=== PATIENT | male | born 1935 | race Caucasian/White ===

== ENCOUNTER 2017-11-13 12:06 | Inpatient (IN) ==
[2017-11-13] MEDS ORDERED: Morphine Inj 4 MG/ML Vial IV.PUSH ONE (12:17)
--- NOTE | 2017-11-13 12:39 | ED ---
HPI General Chief Complaint: Fall Stated Complaint: Evac/Fall Time Seen by Provider: 11/13/17 12:16 Source: patient, family and EMS Mode of arrival: EMS Limitations: language barrier History of Present Illness HPI Narrative: 82 year-old male with a history of CHF and diabetes presents to the emergency room for evaluation of left hip pain after falling just prior to arrival. Patient is primarily Kenyan speaking and his and daughter are translating for him. Patient got up quickly to walk out to the living room and his legs gave out and he fell down. His family states he often feels lightheaded upon standing. He immediately called out for his who tried to help him up but was unable to so they called 911. There was no loss of consciousness. He did not hit his head. No other injuries. He is not on blood thinners. He was noted by EMS to have shortening and external rotation of the left hip. He repots significant pain to the left leg but denies any other pain other symptoms. Patient's is anxious about possible anesthesia stating that he has a heart/lung problem. His appliance service representative is Dr. Canales. complaint: fall Onset (ago): hour(s) Fall from: standing Place fall occurred: home Loss of consciousness: none Prolonged down time: no Symptoms prior to fall: lightheadedness Location of injury: pelvis Severity: severe Quality: sharp and stabbing Associated symptoms (after fall): unable to walk Related Data Home Medications Medication Instructions Recorded Confirmed furosemide [Lasix] mg PO 11/13/17 metformin mg PO 11/13/17 potassium chloride meq PO 11/13/17 Allergies Allergy/AdvReac Type Severity Reaction Status Date / Time No Known Allergies Allergy Unverified 11/13/17 12:17 Review of Systems ROS: all other systems reviewed are negative Constitutional Denies chills and Denies fever(s) Eyes Reports system reviewed and no additional complaints, except as docu ENT Reports system reviewed and no additional complaints, except as docu Cardiovascular Denies chest pain, Denies chest pain at rest and Denies dyspnea Respiratory Denies cough and Denies dyspnea Gastrointestinal Reports system reviewed and no additional complaints, except as docu Genitourinary Denies dysuria and Denies urinary incontinence Musculoskeletal Reports limited range of motion (Secondary to pain) and Reports other (Left hip pain) Neurologic Reports system reviewed and no additional complaints, except as docu Endocrine Reports system reviewed and no additional complaints, except as docu [facility] Medical History Medical History CHF (congestive heart failure) (Acute) Diabetes (Acute) Kidney stone (Acute) Pneumothorax (Acute) Respiratory abnormalities (Acute) Surgical History Surgical History H/O hernia repair (Acute) Social History Social History Substance History: No History of Abuse Smoking Status: Former smoker How Often Do You Have a Drink Containing Alcohol: Never Recent Travel in [facility] within the Last 8 Weeks: No Recent Out of Country Travel within the Last 8 Weeks: No Immunization History Tetanus Immunization: Unsure Hx Influenza Vaccine This Season: Yes Exam Narrative Exam Narrative: GENERAL: Well-nourished, well-developed male in no acute distress. Afebrile. SKIN: Focused skin assessment warm/dry. HEAD: Normocephalic. EYES: No scleral icterus. No injection or drainage. NECK: Supple, trachea midline. No JVD or lymphadenopathy. CARDIOVASCULAR: Regular rate and rhythm without murmurs, gallops, or rubs. RESPIRATORY: Breath sounds equal bilaterally. No accessory muscle use. MUSCULOSKELETAL: No cyanosis, or edema. Left hip is externally rotated and shortened. 2+ dorsalis pedis pulse on the left. Limited range of motion secondary to pain. Course Initial Documented Vital Signs Temperature 98.0 F 11/13/17 12:20 Pulse Rate 90 11/13/17 12:20 Respiratory Rate 20 11/13/17 12:20 Blood Pressure 142/58 H 11/13/17 12:20 Pulse Oximetry 88 L 11/13/17 12:20 Last Documented Vital Signs Temperature 98.0 F 11/13/17 12:20 Pulse Rate 98 H 11/13/17 15:00 Respiratory Rate 22 11/13/17 15:00 Blood Pressure 129/62 11/13/17 15:00 Pulse Oximetry 97 11/13/17 15:00 Medical Decision Making LUCAS Attestation LUCAS supervised visit: Yes Attestation: I, Dr. Abbasi, have reviewed the advance practice practitioner's documentation and am in agreement, met with the patient face to face, made the diagnosis, and the medical decision making was done by me. *My assessment and Findings: Left hip fracture. She also has a history of pulmonary disease. Patient will be admitted to medicine service with a pulmonology consult. Case was discussed with the admitting physician as well as Dr. Canales, patient's appliance service representative who recommended we consult Dr. Leong. [facility] Narrative Medical decision making narrative: 82-year-old male presents to the emergency room for evaluation of left hip pain after falling earlier today. He is primarily Kenyan speaking and his family interpreted throughout history and physical exam. Patient got up too quickly and felt lightheaded and lost his balance. His family states this happens a lot to him. He denies any other complaints. Physical exam reveals externally rotated and shortened left hip with tenderness to palpation of the left lateral hip. It is neurovascularly intact with 2+ dorsalis pedis pulse. IV access established basic labs obtained. Patient given 2 mg of morphine. CBC and CMP are essentially unremarkable. Chest x-ray shows chronic findings. Patient's family is very concerned about anesthesia because of his chronic lung condition and requested we speak to his appliance service representative. Dr. Abbasi spoke to Dr. Canales who recommends consulting Dr. Myers. Hip x-ray shows intertrochanteric fracture of the left proximal femur with varus angulation. Patient was given an additional 2 mg of morphine. I spoke to Dr. Robertson who recommends patient become n.p.o. after midnight for surgery tomorrow. Dr. Abbasi spoke to the residents and they agree to admission. Medical Screen Exam Complete: Yes Emergency Medical Condition: Yes Differential Diagnosis Differential Diagnosis: Fracture, contusion, sprain, strain, dislocation Lab Data Result diagrams: 11/13/17 12:29 11/13/17 12:29 Lab Results 11/13/17 11/13/17 11/13/17 Range/Units 12:29 12:29 12:29 WBC 7.8 (4.0-11.0) th/mm3 RBC 3.91 L (4.50-5.90) mil/mm3 Hgb 11.0 L (13.0-17.0) gm/dL Hct 34.3 L (39.0-51.0) % MCV 87.8 (80.0-100.0) fL MCH 28.2 (27.0-34.0) pg MCHC 32.2 (32.0-36.0) % RDW 15.8 (11.6-17.2) % Plt Count 170 (150-450) th/mm3 MPV 8.1 (7.0-11.0) fL Neut % (Auto) 74.0 H (16.0-70.0) % Lymph % (Auto) 13.3 (9.0-44.0) % [place] % (Auto) 6.0 (0.0-8.0) % Eos % (Auto) 5.7 H (0.0-4.0) % Baso % (Auto) 1.0 (0.0-2.0) % Neut # (Auto) 5.8 (1.8-7.7) th/mm3 Lymph # (Auto) 1.0 (1.0-4.8) th/mm3 [place] # (Auto) 0.5 (0.0-0.9) th/mm3 Eos # (Auto) 0.4 (0.0-0.4) th/mm3 Baso # (Auto) 0.1 (0.0-0.2) th/mm3 WBC Differential . Differential Comment Auto diff final PT 11.3 (9.8-11.6) sec INR 1.1 Ratio APTT 22.0 L (24.3-30.1) sec Sodium 142 (136-145) meq/L Potassium 4.6 (3.5-5.1) meq/L Chloride 100 (98-107) meq/L Carbon Dioxide 37.5 H (21.0-32.0) meq/L Anion Gap 5 (5-15) meq/L BUN 18 (7-18) mg/dL Creatinine 0.91 (0.60-1.30) mg/dL Estimated GFR 80 L (>89) mL/min Random Glucose 135 H (74-106) mg/dL Calcium 8.6 (8.5-10.1) mg/dL Total Bilirubin 0.4 (0.2-1.0) mg/dL AST 34 (15-37) U/L ALT 28 (12-78) U/L Alkaline Phosphatase 129 H (45-117) U/L Total Protein 7.1 (6.4-8.2) g/dL Albumin 3.3 L (3.4-5.0) g/dL Imaging Data Radiologist's impression: Chest X-Ray 11/13/17 12:18 CONCLUSION: Abnormal pleural-based thickening and calcification measuring up to 4.9 cm in diameter in the left hemithorax possibly associated with a prior left thoracotomy. Diminished size of the left lung possibly from partial prior resection. No dense consolidation on the right. Suspected parenchymal scarring and apical pleural thickening. Hip X-Ray 11/13/17 12:18 CONCLUSION: Intertrochanteric fracture of the proximal left. Osteopenia. Discharge Plan Discharge Disposition Patient Disposition: 30 Still Patient Discharge Condition Condition: Stable Physicians Team ED Provider: Valdo Abbasi ED Midlevel Provider: Meghan Mcneal Primary Care Provider: RODRIGO, Attending Provider: Karan Ramírez Other Providers: Arvin Myers V ; Zeke Robertson Discharge Interventions Interventions: Vital Signs Last Done: 11/13/17 15:00 Status ED Status: Admitted Patient
[2017-11-13 12:55] LABS: Baso # (Auto) 0.1 th/mm3 (0.0-0.2); Eos # (Auto) 0.4 th/mm3 (0.0-0.4); Eos % (Auto) 5.7 % (0.0-4.0); Hematocrit 34.3 % (39.0-51.0); Lymph % (Auto) 13.3 % (9.0-44.0); Mean Corpuscular HGB Conc 32.2 % (32.0-36.0); Mean Corpuscular Hemoglobin 28.2 pg (27.0-34.0); Mean Corpuscular Volume 87.8 fL (80.0-100.0); Mean Platelet Volume 8.1 fL (7.0-11.0); Mono # (Auto) 0.5 th/mm3 (0.0-0.9); Neut # (Auto) 5.8 th/mm3 (1.8-7.7); Platelet Count 170 th/mm3 (150-450); Red Blood Count 3.91 mil/mm3 (4.50-5.90); Red Cell Distribution Width 15.8 % (11.6-17.2); White Blood Count 7.8 th/mm3 (4.0-11.0)
[2017-11-13 13:05] LABS: INR 1.1 Ratio; Prothrombin Time 11.3 sec (9.8-11.6)
[2017-11-13 13:20] LABS: Albumin 3.3 g/dL (3.4-5.0); Anion Gap 5 meq/L (5-15); Aspartate Aminotransferase 34 U/L (15-37); Blood Urea Nitrogen 18 mg/dL (7-18); Calcium 8.6 mg/dL (8.5-10.1); Carbon Dioxide 37.5 meq/L (21.0-32.0); Chloride 100 meq/L (98-107); Glomerular Filtration Rate 80 mL/min (>89); Glucose,Random 135 mg/dL (74-106); Potassium 4.6 meq/L (3.5-5.1); Sodium 142 meq/L (136-145)
[2017-11-13 13:21] LABS: Alanine Aminotransferase 28 U/L (12-78)
[2017-11-13 13:23] LABS: Alkaline Phosphatase 129 U/L (45-117); Total Protein 7.1 g/dL (6.4-8.2)
--- NOTE | 2017-11-13 13:49 | XR ---
EXAM DATE: 11/13/2017 1:20 PM EDT AGE/SEX: 82 years / Male INDICATIONS: Shortness of breath. CLINICAL DATA: This is the patient's initial encounter. Patient reports that signs and symptoms have been present for 1 day and indicates a pain score of Nonresponsive. MEDICAL/SURGICAL HISTORY: . Left lung. None. COMPARISON: No prior exams available for comparison. FINDINGS: There is presumed prior left thoracotomy with extensive pleural-based density and calcification prese nt in markedly diminished size of the left lung. No prior study for comparison. There is apical pleural thickening on the right and presumed parenchymal scarring in the right lung. Heart size mildly enlarged. CONCLUSION: Abnormal pleural-based thickening and calcification measuring up to 4.9 cm in diameter in the left he mithorax possibly associated with a prior left thoracotomy. Diminished size of the left lung possibly from partial prior resection. No dense consolidation on the right. Suspected parenchymal scarring an d apical pleural thickening. Electronically signed by: Bo Main MD 11/13/2017 1:48 PM EDT
--- NOTE | 2017-11-13 13:50 | XR ---
EXAM DATE: 11/13/2017 1:23 PM EDT AGE/SEX: 82 years / Male INDICATIONS: Left hip pain after fall. CLINICAL DATA: This is the patient's initial encounter. Patient reports that signs and symptoms have been present for 1 day and indicates a pain score of Nonresponsive. MEDICAL/SURGICAL HISTORY: Non-responsive. Non-responsive. COMPARISON: No prior exams available for comparison. FINDINGS: There is an intertrochanteric fracture of the proximal left femur with varus angulation. Bones are os teopenic. No other fractures identified. CONCLUSION: Intertrochanteric fracture of the proximal left. Osteopenia. Electronically signed by: Bo Main MD 11/13/2017 1:48 PM EDT
[2017-11-13] MEDS ORDERED: Morphine Sulfate Inj 2 MG/ML Vial IV.PUSH ONE (14:40)
[2017-11-13] MEDS ORDERED: Temazepam 15 MG Capsule PO PRN (16:20)
[2017-11-13] MEDS ORDERED: Bisacodyl 10 MG Supp RECTAL PRN (16:20)
[2017-11-13] MEDS ORDERED: Acetaminophen 325 MG Tablet PO PRN (16:32)
[2017-11-13] MEDS ORDERED: Naloxone Inj 0.4 MG/ML Vial IV.PUSH PRN (16:32)
[2017-11-13] MEDS: Sod Chloride 0.9% Inj 1,000 ML IV.CONT SCH (16:56)
--- NOTE | 2017-11-13 17:36 | P.HPFP ---
History of Present Illness Primary Care Physician: UNKNOWN Chief Complaint: Fall History of Present Illness: 82-year-old male with history of CHF, diabetes, emphysema presenting to the ED after a fall. Patient is Tajik speaking only and his family (who speaks Yoruba) was present who assisted in providing history. An director human services was also used (Luz Elena ID #[id number]). Family states that patient was in his normal state of health and had a witnessed fall today in the living room. Family states that he occasionally gets lightheaded when he stands up quickly, and they stated that was the case today. Denies any loss of consciousness or chest pain. At baseline, patient is on 3-4 L nasal cannula and requires assistance in ambulating, bathing and clothing himself. Family states that the patient had a thoracotomy/lobectomy in childhood for condition he could not describe. His manager of production is Dr. Lazcano. He also has a known history of CHF for which he takes Lasix and potassium daily. Medical Care Evaluation Specialist is Dr. Weinstein. - Diagnosis (1) Fracture, intertrochanteric, left femur (2) Fall (3) CHF (congestive heart failure) (4) Emphysema of lung (5) Borderline diabetes mellitus (6) Nutrition, metabolism, and development symptoms Inpatient Certification: I certify that the inpatient services were ordered in accordance with Medicare regulations governing the order. This includes certification that hospital inpatient services are reasonable and necessary and in the case of services not specified as inpatient-only under 42 CFR 419.22(n), that they are appropriately provided as inpatient services in accordance to with the 2-midnight benchmark under 43 CFR 412.3(e) Estimated Total Length of Stay (Days): 3 Plans for Post Hospital Care: Other Review of Systems Constitutional: Denies chills, Denies fever(s) Ears, Nose, Mouth, and Throat: Reports dizziness, Denies sore throat Cardiovascular: Reports foot swelling (Mildly increased from baseline CHF), Denies chest pain Respiratory: Reports shortness of breath (no change from baseline), Denies cough Gastrointestinal: Denies abdominal pain, Denies black, tarry stools Genitourinary: Denies urinary frequency Comments: denies dysuria Neurologic: Denies fainting, Denies headache(s) [facility] - History History Provided By: Patient, Family Member - Medical History Medical History: Medical History (Last Updated 11/13/17 @ 12:22 by Griffin Odell) CHF (congestive heart failure) Diabetes Kidney stone Pneumothorax Respiratory abnormalities - Surgical History Surgical History: Surgical History (Last Updated 11/13/17 @ 12:22 by Griffin Odell) H/O hernia repair - Tobacco History Smoking Status: Former smoker - Alcohol History How Often Do You Have a Drink Containing Alcohol: Never - Substance Use History Substance History: No History of Abuse - Travel History Recent Travel in the [place] Within the Last 8 Weeks: No Recent Travel Out of the Country Within the Last 8 Weeks: No - Immunization History Tetanus Immunization: Unsure Hx Influenza Vaccine This Season: Yes Medications and Allergies Active Medications: Active Medications Acetaminophen (Tylenol) 650 mg PO Q6HR PRN PRN Reason: PAIN SCALE 1 TO 2 Al Hydroxide/Mg Hydroxide (Milk Of Magnesia Liq) 30 ml PO Q12H PRN PRN Reason: Mild Constipation Albuterol (Duoneb Neb (Prn)) 1 ampul NEB Q4HR NEB PRN PRN Reason: WHEEZING Bisacodyl (Dulcolax Supp) 10 mg RECTAL DAILY PRN PRN Reason: SEVERE CONSITIPATION Sodium Chloride (Ns Inj) 1,000 mls @ 100 mls/hr IV.CONT .Q10H NOAH Lactulose (Lactulose Liq) 30 ml PO DAILY PRN PRN Reason: SEVERE CONSITIPATION Morphine Sulfate (Morphine Inj) 2 mg IV.PUSH Q3H PRN PRN Reason: BREAKTHROUGH PAIN Naloxone HCl (Narcan Inj) 0.4 mg IV.PUSH UNSCH PRN PRN Reason: SEE LABEL COMMENTS Oxycodone/Acetaminophen (Percocet 10/325 Mg) 1 tab PO Q6H PRN PRN Reason: PAIN SCALE 6 TO 10 Oxycodone/Acetaminophen (Percocet 5/325 Mg) 1 tab PO Q6H PRN PRN Reason: PAIN SCALE 3 TO 5 Senna/Docusate Sodium (Flor-Colace) 1 tab PO BID NOAH Sennosides (Senokot) 17.2 mg PO Q12H PRN PRN Reason: Moderate Constipation Sodium Chloride (Ns Flush) 2 ml IV.FLUSH UNSCH PRN PRN Reason: FLUSH AFTER USING IV ACCESS Temazepam (Restoril) 15 mg PO HS PRN PRN Reason: INSOMNIA Allergies Allergy/AdvReac Type Severity Reaction Status Date / Time No Known Allergies Allergy Unverified 11/13/17 12:17 Home Medications Medication Instructions Recorded Confirmed Type furosemide [Lasix] mg PO 11/13/17 History metformin mg PO 11/13/17 History potassium chloride meq PO 11/13/17 History Exam Vital signs: Vital Signs 11/13/17 12:20 11/13/17 12:24 11/13/17 14:12 Temperature 98.0 F Pulse Rate 90 95 H Respiratory Rate 20 20 Blood Pressure 142/58 H 138/65 Pulse Oximetry 88 L 99 11/13/17 15:00 Temperature Pulse Rate 98 H Respiratory Rate 22 Blood Pressure 129/62 Pulse Oximetry 97 Intake & Output 11/12/17 11/13/17 11/13/17 18:59 06:59 18:59 Weight 74.843 kg Narrative: GENERAL: Elderly well-nourished male lying in bed in no significant distress. SKIN: Warm and dry. HEAD: Atraumatic. Normocephalic. EYES: Pupils equal and round. No scleral icterus. No injection or drainage. ENT: No nasal bleeding or discharge. Mucous membranes pink and moist. NECK: Trachea midline. No JVD. CARDIOVASCULAR: Regular rate and rhythm. RESPIRATORY: No accessory muscle use. Clear to auscultation. Breath sounds equal bilaterally. GASTROINTESTINAL: Abdomen soft, non-tender, nondistended. Hepatic and splenic margins not palpable. MUSCULOSKELETAL: Left leg is externally rotated and slightly shorter than the right leg. Distal pulses are palpable and patient is able to wiggle his toes and sensation is intact. Capillary refill is normal. No calf tenderness. 1+ pitting edema around the feet/ankles NEUROLOGICAL: Awake and alert. No obvious cranial nerve deficits. Motor grossly within normal limits. Normal speech. PSYCHIATRIC: Appropriate mood and affect; insight and judgment normal. Results - Labs Result diagrams: 11/13/17 12:29 11/13/17 12:29 Abnormal lab results 11/13/17 11/13/17 11/13/17 Range/Units 12:29 12:29 12:29 RBC 3.91 L (4.50-5.90) mil/mm3 Hgb 11.0 L (13.0-17.0) gm/dL Hct 34.3 L (39.0-51.0) % Neut % (Auto) 74.0 H (16.0-70.0) % Eos % (Auto) 5.7 H (0.0-4.0) % APTT 22.0 L (24.3-30.1) sec Carbon Dioxide 37.5 H (21.0-32.0) meq/L Estimated GFR 80 L (>89) mL/min Random Glucose 135 H (74-106) mg/dL Alkaline Phosphatase 129 H (45-117) U/L Albumin 3.3 L (3.4-5.0) g/dL Short CBC 11/13/17 Range/Units 12:29 WBC 7.8 (4.0-11.0) th/mm3 Hgb 11.0 L (13.0-17.0) gm/dL Hct 34.3 L (39.0-51.0) % Plt Count 170 (150-450) th/mm3 BMP 11/13/17 12:29 Sodium 142 Potassium 4.6 Chloride 100 Carbon Dioxide 37.5 H BUN 18 Creatinine 0.91 Calcium 8.6 Liver Function 11/13/17 Range/Units 12:29 Total Bilirubin 0.4 (0.2-1.0) mg/dL AST 34 (15-37) U/L ALT 28 (12-78) U/L Alkaline Phosphatase 129 H (45-117) U/L Albumin 3.3 L (3.4-5.0) g/dL - Imaging Impressions Chest X-Ray 11/13/17 12:18 CONCLUSION: Abnormal pleural-based thickening and calcification measuring up to 4.9 cm in diameter in the left hemithorax possibly associated with a prior left thoracotomy. Diminished size of the left lung possibly from partial prior resection. No dense consolidation on the right. Suspected parenchymal scarring and apical pleural thickening. Hip X-Ray 11/13/17 12:18 CONCLUSION: Intertrochanteric fracture of the proximal left. Osteopenia. Caprini VTE Risk Assessment Caprini VTE Risk Assessment: Moderate/High Risk (score >= 2) Caprini Risk Assessment Model: Point Value = 1 Point Value = 2 Point Value = 3 Point Value = 5 Age 41-60 Minor surgery BMI > 25 kg/m2 Swollen legs Varicose veins or History of unexplained or recurrent spontaneous Oral contraceptives or hormone replacement Sepsis (< 1 month) Serious lung disease, including pneumonia (< 1 month) Abnormal pulmonary function Acute myocardial infarction Congestive heart failure (< 1 month) History of inflammatory bowel disease Medical patient at bed rest Age 61-74 Arthroscopic surgery Major open surgery (> 45 min) Laparoscopic surgery (> 45 min) Malignancy Confined to bed (> 72 hours) Immobilizing plaster cast Central venous access Age >= 75 History of VTE Family history of VTE Factor V Leiden Prothrombin [id number] Lupus anticoagulant Anticardiolipin antibodies Elevated serum homocysteine Heparin-induced thrombocytopenia Other congenital or acquired thrombophilia Stroke (< 1 month) Elective arthroplasty Hip, pelvis, or leg fracture Acute spinal cord injury (< 1 month) Prophylaxis Regimen: Total Risk Factor Score Risk Level Prophylaxis Regimen 0-1 Low Early ambulation 2 Moderate Order ONE of the following: *Sequential Compression Device (SCD) *Heparin 5000 units SQ BID 3-4 Higher Order ONE of the following medications: *Heparin 5000 units SQ TID *Enoxaparin/Lovenox 40 mg SQ daily (WT < 150 kg, CrCl > 30 mL/min) *Enoxaparin/Lovenox 30 mg SQ daily (WT < 150 kg, CrCl > 10-29 mL/min) *Enoxaparin/Lovenox 30 mg SQ BID (WT < 150 kg, CrCl > 30 mL/min) AND/OR *Sequential Compression Device (SCD) 5 or more Highest Order ONE of the following medications: *Heparin 5000 units SQ TID (Preferred with Epidurals) *Enoxaparin/Lovenox 40 mg SQ daily (WT < 150 kg, CrCl > 30 mL/min) *Enoxaparin/Lovenox 30 mg SQ daily (WT < 150 kg, CrCl > 10-29 mL/min) *Enoxaparin/Lovenox 30 mg SQ BID (WT < 150 kg, CrCl > 30 mL/min) AND *Sequential Compression Device (SCD) Assessment and Plan - Assessment (1) Fracture, intertrochanteric, left femur Code(s): S72.142A - Displaced intertrochanteric fracture of left femur, initial encounter for closed fracture Status: Acute Plan: Patient came to the ED after a witnessed fall. X-ray of the hip showed intertrochanteric fracture on the left and osteopenia Orthopedic surgery consulted, preop labs ordered Consulting pulmonology/cardiology for surgery clearance. See workup below Ordering vitamin D level Will order Castellanos's traction Via [employer] for when patient is on the floor Percocet/morphine for breakthrough pain scale (2) Fall Code(s): W19.XXXA - Unspecified fall, initial encounter Status: Acute Plan: Family reports that patient often gets lightheaded when standing up quickly which occurred today prior to the fall Denies any loss of consciousness, chest pain or shortness of breath different from baseline EKG on admission showed sinus rhythm with no T-wave inversions Continuous telemetry No electrolyte abnormalities, mildly anemic with H&H of 11.0/34.3 Ordering UA, troponin 1 Suspect orthostatic etiology of the fall, may need to consider further imaging pending the hospital course (3) CHF (congestive heart failure) Code(s): I50.9 - Heart failure, unspecified Status: Acute Plan: Patient with a known history of CHF. Followed by Dr. Weinstein Unable to tell us his most recent ejection fraction Chest x-ray on admission showed abnormal pleural-based thickening and calcification measuring up to 4.9 cm in the left hemithorax possibly associated with a prior left thoracotomy. Diminished size of the left lung possibly from partial prior resection. No signs of pleural effusion. Does not appear to be fluid overloaded on exam Ordering echocardiogram, consulting cardiology as this patient will need surgical clearance EKG on admission was normal Ordering troponin 1 (4) Emphysema of lung Code(s): J43.9 - Emphysema, unspecified Status: Acute Plan: Known history of emphysema with a history of possible partial lobectomy in the past Former smoker. Quit 1 year ago but previously smoked 3-4 packs per day 3-4 L nasal cannula at home Nebulizer treatments at home, family cannot confirm the exact medication Duo nebs every 6 hours as needed for wheezing Pulmonology consulted as he will need surgical clearance (5) Borderline diabetes mellitus Code(s): R73.03 - Prediabetes Status: Acute Plan: Known history of borderline type 2 diabetes Takes metformin 500 mg p.o. daily Holding home medications for now. Random glucose on admission was 135 (6) Nutrition, metabolism, and development symptoms Code(s): R63.8 - Other symptoms and signs concerning food and fluid intake Status: Acute Plan: Diabetic diet, n.p.o. at midnight Electrolytes within normal limits. Will replete as needed No IV fluids at this time SCDs for DVT prophylaxis until surgical plan is established - Assessment and Plan 82-year-old male with a history of emphysema, CHF, prediabetes admitted after a fall. Found to have left intertrochanteric fracture. Consulting pulmonology, cardiology for surgical clearance. Orthopedic surgery consulted. Will make n.p.o. at midnight for possible surgical intervention. Discussed with the ED physician
--- NOTE | 2017-11-13 18:51 | MB ---
cc: Francisco Page MD DATE: 11/13/2017 DATE OF CONSULTATION: 11/13/2017 INDICATION: Congestive heart failure. HISTORY OF PRESENT ILLNESS: An 82-year-old gentleman with history of coronary artery disease and diabetes, who presented after a fall with left hip pain. and daughter are at the bedside to corroborate history. The patient states that he fell left handed upon standing. Got a little dizzy, lost his balance and fell, did not hit his head. He had external rotation of the left hip with pain. He was diagnosed with intratrochanteric fracture of the left proximal femur. Orthopedic surgery was consulted. Given his prior history of congestive heart failure we were consulted for cardiac clearance and 2-D echocardiogram. PAST MEDICAL HISTORY: CHF, diabetes, kidney stone, pneumothorax. SOCIAL HISTORY: Denies alcohol or drug use. He is a former user of tobacco. FAMILY HISTORY: There is a family history of early coronary disease or sudden cardiac . REVIEW OF SYSTEMS: A 12-point review of systems was performed, negative unless otherwise noted in history of present illness. PHYSICAL EXAMINATION: VITAL SIGNS: Temperature 98, blood pressure 100/62 mmHg. GENERAL: Alert, oriented x3, in no acute distress. HEENT: Shows pupils, round, and reactive to light and accommodation. Extraocular movements are intact. NECK: No elevation of jugular venous distention. No thyromegaly. No lymphadenopathy. No carotid bruits. LUNGS: Clear to auscultation bilaterally. CARDIOVASCULAR: Regular rate and rhythm, 1/6 systolic murmur. ABDOMEN: Nontender, nondistended with good bowel sounds. No hepatosplenomegaly. EXTREMITIES: Show no clubbing, cyanosis, or edema. Good peripheral pulses. NEUROLOGIC: Cranial nerves intact. Motor and sensory grossly intact. LABORATORY DATA: WBC 7.8, hemoglobin 11.0, his platelet count is 170. INR is 1.1. Sodium 142, potassium 4.6, creatinine 0.91. ASSESSMENT: 1. Hip fracture. 2. History of congestive heart failure. 3. Questionable valvular heart disease. PLAN: The patient is well compensated now from a cardiovascular perspective. No significant murmur on cardiovascular exam. We will get a 2D echocardiogram, but we do not need to do anything emergent as the patient is otherwise stable. He does not have any recent anginal symptoms. There is questions whether he generates 4 metabolic equivalents, but it does sound like he does, in which case he will be cleared from a cardiovascular perspective without any preoperative stress test. Regardless, given the hip fracture, we would almost certainly want to proceed, even if intermediate risk, given the poor outcomes without fixing the hip. We will get a 2D echocardiogram first thing in the morning to evaluate ejection fraction to assess volume administration periprocedurally. We will sign off for now. We will followup on the echocardiogram. Call with any questions. MD MONE Vidales/ , 05:38 PM , 05:47 PM
[2017-11-13] MEDS: Morphine Inj 4 MG/ML Vial IV.PUSH PRN (19:43)
--- NOTE | 2017-11-13 19:53 | MB ---
cc: Rodney Lazcano MD DATE: 11/13/2017 REASON FOR CONSULTATION: Preoperative clearance prior to hip surgery. HISTORY OF PRESENT ILLNESS: This 82-year-old white male with a history of diabetes and hypertension and CHF and COPD has been on home oxygen at 3 liters nasal cannula. The patient apparently was getting out of his couch at home and fell down and suffered a fracture of his left hip. He was brought to the emergency room. An x-ray of the hip demonstrated an intertrochanteric fracture of the left proximal femur with angulation. The patient has been referred to Orthopedics, and Neurosurgery is pending. The patient, however, is on oxygen at 3 liters and does not complain of shortness of breath today, is complaining of pain in his hip and back. Chest x-ray that was done upon admission showed pleural thickening and calcifications and reduced lung volumes and no specific consolidation. He has had bilateral scarring from pulmonary fibrotic lung disease. PAST MEDICAL HISTORY: The patient's past history has included history of COPD and emphysema, prior history of pulmonary fibrosis and asbestosis, history of congestive heart failure and cardiomyopathy, prior history of kidney stones and previous history of pneumothorax requiring chest tube placement. HABITS: The patient has a remote history of smoking and no significant alcohol use. ALLERGIES: NO KNOWN DRUG ALLERGIES. REVIEW OF SYSTEMS: The patient has hip and back pain. He has shortness of breath and cough and wheezing. He has epigastric distress reflux and cramping: He has urinary frequency. No flank pain. Denies skin rash. He has trouble ambulating. PHYSICAL EXAMINATION: GENERAL: This elderly averagely built white male is pale and mildly dyspneic at rest. VITAL SIGNS: Blood pressure 130/60, pulse is 90, respirations are 18, temperature 98.2. HEENT: Head is normocephalic. Pupils reactive. Arcus senilis was seen. Tongue was moist. Throat is injected. Nasal mucosa is clear. NECK: Supple. No bruits. Mild venous distention. Trachea midline. CHEST: Decreased excursions with a few coarse wheezes bilaterally with occasional right basilar crackles. HEART: Sounds are irregular S1 and S2 with no murmur. No S3. ABDOMEN: Soft, protuberant without mass. No organomegaly. Bowel sounds are active. EXTREMITIES: The left foot is externally rotated and the patient does move his foot, but is unable to move his leg on the left. The peripheral pulses are diminished. There is minimal edema of both lower extremities. The patient is alert and cooperative and is conversant, but he is speaking mostly in [place]. RECTAL: Deferred. SKIN: Dry and cool. IMPRESSION: 1. Intertrochanteric fracture of the left humerus. 2. Chronic obstructive pulmonary disease and chronic bronchitis. 3. Basilar pulmonary fibrosis with bronchiectasis. 4. Cardiomyopathy and congestive heart failure. PLAN: The patient will be maintained on O2 at 3 liters. We will add nebulized DuoNeb solution q.i.d. Also, we will place also place him on Symbicort 160 4.5 mcg 2 puffs daily. A followup chest x-ray to be done in a.m. Blood gas studies to be done on oxygen. The patient is cleared for surgery and may need BiPAP after surgery. Would suggest limited anesthesia due to moderately high risk for respiratory failure and/or pneumonia. Anticoagulation prophylaxis will be given after the procedure. He is cleared for surgery as planned. Thank you for this consultation. MD EVIN Daniels/meena , 07:04 PM , 07:15 PM
[2017-11-13] MEDS: Senna/Docusate Sodium 8.6/50 MG Tablet PO SCH (20:00)
--- NOTE | 2017-11-13 21:29 | P.PNFP ---
Subjective Interval history: Attending note 82-year-old [place] gentleman who speaks only [place] presented to the emergency room after a fall observed at home without loss of consciousness and x-rays in the emergency room revealing a left intertrochanteric fracture. Family members are present to her able to provide history in Belgian. Patient has an extensive past medical history as outlined under the assessment. Notable that at age 20 the patient had lung surgery for possible empyema, family does not think he had tuberculosis. 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 He is followed by Dr. Arvin sun bucket wash operator. Patient is followed by his enrollment services dean Dr. Weinstein, [facility]. Patient has been seen by his bucket wash operator and Dr. Tj Page enrollment services dean who has recommended a 2D echocardiogram which is currently pending. Patient has a history of possible congestive heart failure and according to family coronary artery disease with a "clogged arteries ". Refer to the resident history and physical for complete discussion of past medical history, family history, social history and review of systems. Results - Labs Result diagrams: 11/13/17 12:29 11/13/17 12:29 Abnormal lab results 11/13/17 11/13/17 11/13/17 Range/Units 12:29 12:29 12:29 RBC 3.91 L (4.50-5.90) mil/mm3 Hgb 11.0 L (13.0-17.0) gm/dL Hct 34.3 L (39.0-51.0) % Neut % (Auto) 74.0 H (16.0-70.0) % Eos % (Auto) 5.7 H (0.0-4.0) % APTT 22.0 L (24.3-30.1) sec Carbon Dioxide 37.5 H (21.0-32.0) meq/L Estimated GFR 80 L (>89) mL/min POC Glucose (68-110) mg/dl Random Glucose 135 H (74-106) mg/dL Alkaline Phosphatase 129 H (45-117) U/L Troponin I Less than 0.02 L (0.02-0.05) ng/mL Albumin 3.3 L (3.4-5.0) g/dL Vitamin D 25-Hydroxy 6.6 L (30-100) ng/mL 11/13/17 Range/Units 20:41 RBC (4.50-5.90) mil/mm3 Hgb (13.0-17.0) gm/dL Hct (39.0-51.0) % Neut % (Auto) (16.0-70.0) % Eos % (Auto) (0.0-4.0) % APTT (24.3-30.1) sec Carbon Dioxide (21.0-32.0) meq/L Estimated GFR (>89) mL/min POC Glucose 176 H (68-110) mg/dl Random Glucose (74-106) mg/dL Alkaline Phosphatase (45-117) U/L Troponin I (0.02-0.05) ng/mL Albumin (3.4-5.0) g/dL Vitamin D 25-Hydroxy (30-100) ng/mL Short CBC 11/13/17 Range/Units 12:29 WBC 7.8 (4.0-11.0) th/mm3 Hgb 11.0 L (13.0-17.0) gm/dL Hct 34.3 L (39.0-51.0) % Plt Count 170 (150-450) th/mm3 BMP 11/13/17 12:29 Sodium 142 Potassium 4.6 Chloride 100 Carbon Dioxide 37.5 H BUN 18 Creatinine 0.91 Calcium 8.6 Cardiac Enzymes 11/13/17 11/13/17 Range/Units 12:29 12:29 Troponin I Less than 0.02 L Cancelled (0.02-0.05) ng/mL Liver Function 11/13/17 Range/Units 12:29 Total Bilirubin 0.4 (0.2-1.0) mg/dL AST 34 (15-37) U/L ALT 28 (12-78) U/L Alkaline Phosphatase 129 H (45-117) U/L Albumin 3.3 L (3.4-5.0) g/dL - Imaging Impressions Chest X-Ray 11/13/17 12:18 CONCLUSION: Abnormal pleural-based thickening and calcification measuring up to 4.9 cm in diameter in the left hemithorax possibly associated with a prior left thoracotomy. Diminished size of the left lung possibly from partial prior resection. No dense consolidation on the right. Suspected parenchymal scarring and apical pleural thickening. Hip X-Ray 11/13/17 12:18 CONCLUSION: Intertrochanteric fracture of the proximal left. Osteopenia. Physical Exam Vital signs: Vital Signs 11/13/17 12:20 11/13/17 12:24 11/13/17 14:12 Temperature 98.0 F Pulse Rate 90 95 H Respiratory Rate 20 20 Blood Pressure 142/58 H 138/65 Pulse Oximetry 88 L 99 11/13/17 15:00 11/13/17 16:56 11/13/17 18:06 Temperature Pulse Rate 98 H 103 H Respiratory Rate 22 22 22 Blood Pressure 129/62 143/63 H Pulse Oximetry 97 99 11/13/17 18:20 11/13/17 20:07 11/13/17 21:03 Temperature Pulse Rate 105 H Respiratory Rate 18 20 Blood Pressure Pulse Oximetry 99 99 Intake & Output 11/13/17 11/13/17 11/14/17 06:59 18:59 06:59 Weight 74.843 kg Narrative: Vital signs noted. Pulse 105 respirations 20 temperature afebrile blood pressure 143/63. General appearance older gentleman who has Castellanos's traction applied to his left lower extremity, mildly verbally agitated accompanied by any family members. Additional examination is pending. Labs reviewed. Findings include hemoglobin 11.0 and glucose 135 random. Chest x-ray abnormal with large calcified areas and pleural thickening in the left lungs. EKG nonspecific ST-T wave changes. Assessment and Plan - Assessment (1) Fracture, intertrochanteric, left femur Code(s): S72.142A - Displaced intertrochanteric fracture of left femur, initial encounter for closed fracture Status: Acute Plan: Patient came to the ED after a witnessed fall. X-ray of the hip showed intertrochanteric fracture on the left and osteopenia Orthopedic surgery consulted, preop labs ordered Consulting pulmonology/cardiology for surgery clearance. See workup below Ordering vitamin D level Will order Castellanos's traction [facility] for when patient is on the floor Percocet/morphine for breakthrough pain scale (2) Fall Code(s): W19.XXXA - Unspecified fall, initial encounter Status: Acute Plan: Family reports that patient often gets lightheaded when standing up quickly which occurred today prior to the fall Denies any loss of consciousness, chest pain or shortness of breath different from baseline EKG on admission showed sinus rhythm with no T-wave inversions Continuous telemetry No electrolyte abnormalities, mildly anemic with H&H of 11.0/34.3 Ordering UA, troponin 1 Suspect orthostatic etiology of the fall, may need to consider further imaging pending the hospital course (3) CHF (congestive heart failure) Code(s): I50.9 - Heart failure, unspecified Status: Acute Plan: Patient with a known history of CHF. Followed by Dr. Weinstein Unable to tell us his most recent ejection fraction Chest x-ray on admission showed abnormal pleural-based thickening and calcification measuring up to 4.9 cm in the left hemithorax possibly associated with a prior left thoracotomy. Diminished size of the left lung possibly from partial prior resection. No signs of pleural effusion. Does not appear to be fluid overloaded on exam Ordering echocardiogram, consulting cardiology as this patient will need surgical clearance EKG on admission was normal Ordering troponin 1 (4) Emphysema of lung Code(s): J43.9 - Emphysema, unspecified Status: Acute Plan: Known history of emphysema with a history of possible partial lobectomy in the past Former smoker. Quit 1 year ago but previously smoked 3-4 packs per day 3-4 L nasal cannula at home Nebulizer treatments at home, family cannot confirm the exact medication Duo nebs every 6 hours as needed for wheezing Pulmonology consulted as he will need surgical clearance (5) Borderline diabetes mellitus Code(s): R73.03 - Prediabetes Status: Acute Plan: Known history of borderline type 2 diabetes Takes metformin 500 mg p.o. daily Holding home medications for now. Random glucose on admission was 135 (6) Nutrition, metabolism, and development symptoms Code(s): R63.8 - Other symptoms and signs concerning food and fluid intake Status: Acute Plan: Diabetic diet, n.p.o. at midnight Electrolytes within normal limits. Will replete as needed No IV fluids at this time SCDs for DVT prophylaxis until surgical plan is established - Assessment and Plan 82-year-old male with a history of emphysema, CHF, prediabetes admitted after a fall. Found to have left intertrochanteric fracture. Consulting pulmonology, cardiology for surgical clearance. Orthopedic surgery consulted. Will make n.p.o. at midnight for possible surgical intervention. Discussed with the ED physician Attending assessment: 82-year-old [place] gentleman sustained a left intertrochanteric fracture on the day of admission. Cardiology clearance and pulmonary medicine clearance are in process. A 2D echocardiogram has been ordered. Plans are to expedite surgery so the patient can be up out of bed and begin a rehab program. COPD-3 L of O2 per minute dependent at home Diabetes mellitus type 2 ASCVD with coronary disease and history congestive heart failure by history Significant additional history of lungs with possible asbestosis, significant pulmonary fibrosis and calcification in the left lung, bronchiectasis. Probable empyema surgery at age 20. Mild anemia History of renal lithiasis Case being discussed with resident team, agree with orders as written by the resident. Karan Ramírez MD 11/13/2017.
[2017-11-13] MEDS ORDERED: Metoprolol Tartrate 25 MG Tablet PO SCH (21:30)
[2017-11-13] MEDS ORDERED: Chlorhexidine Gluconate 2% 1 Pack (2 Cloths) TOPICAL SCH (21:30)
[2017-11-13] MEDS ORDERED: Sodium Chlor 0.9% Inj 500 ML IV.SIG SCH (22:00)
[2017-11-14] MEDS: Morphine Inj 4 MG/ML Vial IV.PUSH PRN ×4 (02:07→18:43)
[2017-11-14] MEDS: Sod Chloride 0.9% Inj 1,000 ML IV.CONT SCH ×2 (05:21→21:06)
--- NOTE | 2017-11-14 08:42 | ECHRPT ---
Indication: HEART FAILURE CONCLUSIONS The left ventricular systolic function is normal with an estimated ejection fraction in the range of 60-65%. Normal left ventricular size. Wall thickness is normal. No regional wall motion abnormalities are present. Diffuse calcification of the aortic valve but no significant stenosis. There is mild to moderate tricuspid valve regurgitation. The estimated pulmonary arterial pressure is 76.9 mmHg with severe pulmonary hypertension. BP: / HR: Rhythm: MEASUREMENTS (Male / Female) Normal Values Technical Quality: 2D ECHO LV Diastolic Diameter PLAX 3.4 cm 4.2 - 5.9 / 3.9 - 5.3 cm LV Systolic Diameter PLAX 2.4 cm IVS Diastolic Thickness 1.0 cm 0.6 - 1.0 / 0.6 - 0.9 cm LVPW Diastolic Thickness 1.1 cm 0.6 - 1.0 / 0.6 - 0.9 cm LV Relative Wall Thickness 0.6 LVOT Diameter 2.0 cm LA Systolic Diameter LX 2.4 cm 3.0 - 4.0 / 2.7 - 3.8 cm M-MODE Aortic Root Diameter MM 3.0 cm AV Cusp Separation MM 1.1 cm DOPPLER AV Peak Velocity 122.0 cm/s AV Peak Gradient 6.0 mmHg LVOT Peak Velocity 101.0 cm/s LVOT Peak Gradient 4.1 mmHg AV Area Cont Eq pk 2.6 cm MV Area PHT 5.6 cm Mitral E Point Velocity 68.1 cm/s Mitral A Point Velocity 118.0 cm/s Mitral E to A Ratio 0.6 LV E' Septal Velocity 4.1 cm/s Mitral E to LV E' Septal Ratio 16.7 TR Peak Velocity 409.0 cm/s TR Peak Gradient 66.9 mmHg Right Atrial Pressure 10.0 mmHg Pulmonary Artery Systolic Pressu 76.9 mmHg Right Ventricular Systolic Press 76.9 mmHg PV Peak Velocity 93.5 cm/s PV Peak Gradient 3.5 mmHg FINDINGS LEFT VENTRICLE The left ventricular systolic function is normal with an estimated ejection fraction in the range of 60-65%. Normal left ventricular size. Wall thickness is normal. No regional wall motion abnormalities are seen but cannot exclude inferior hypokinesis RIGHT VENTRICLE Normal right ventricular size and systolic function. LEFT ATRIUM The left atrial size is normal. RIGHT ATRIUM The right atrial size is normal. ATRIAL SEPTUM Normal atrial septal thickness without atrial level shunting by limited color doppler interrogation. AORTA The aortic root and proximal ascending aorta are normal in size on limited imaging. MITRAL VALVE Structurally normal mitral valve. No mitral valve stenosis or regurgitation. AORTIC VALVE Trileaflet aortic valve. Diffuse calcification of the aortic valve but no stenosis by Doppler. TRICUSPID VALVE Structurally normal tricuspid valve. There is mild to moderate tricuspid valve regurgitation. The estimated pulmonary arterial pressure is 76.9 mmHg. There is estimated severe pulmonary hyperten renny present ( > 70 mmHg). PULMONARY VALVE No pulmonary valve regurgitation or stenosis. VESSELS The inferior vena cava is normal in size. PERICARDIUM No pericardial effusion. Hilario Iyer MD (Electronically Signed) Final Date:14 November 2017 08:41
[2017-11-14] MEDS ORDERED: Furosemide 40 MG Tablet PO SCH (09:00)
--- NOTE | 2017-11-14 09:12 | XR ---
EXAM DATE: 11/14/2017 9:08 AM EDT AGE/SEX: 82 years / Male INDICATIONS: COPD. Left hip fracture. CLINICAL DATA: This is the patient's subsequent encounter. Patient reports that signs and symptoms h ave been present for 2 days and indicates a pain score of 8/10. MEDICAL/SURGICAL HISTORY: None. None. [place] [facility] [place]. . FINDINGS: Single AP view of the chest. Near-complete opacification of the left hemithorax with increased opacif ication when compared to the prior study. Increased shift of the mediastinum to the left. Right lung unchanged. CONCLUSION: Increased left sided opacity with near complete opacification of the hemithorax. Increased shift of t he mediastinum to the left suggesting a component of atelectasis. Electronically signed by: Maurilio Meredith MD 11/14/2017 9:11 AM EDT
[2017-11-14 09:57] LABS: Bilirubin,Urine Negative (Negative); Clarity,Urine Hazy (Clear); Color,Urine Yellow (Yellw/Straw); Glucose,Urine (UA) Negative (Negative); Leukocyte Esterase,Urine Negative (Negative); Mucus,Urine Few /lpf (Occasional); Nitrite,Urine Negative (Negative); Specific Gravity,Urine 1.021 (1.002-1.035); Squamous Epithelial Cell,Urine 2 /hpf (0-5)
[2017-11-14] MEDS ORDERED: Ketamine Inj 50 MG/5 ML Syringe IV.PUSH ONE ×2 (09:58→09:59)
--- NOTE | 2017-11-14 10:49 | P.PNFP ---
Subjective Interval history: Patient was seen and examined this morning by the primary medical service. Per report by family, patient had a good night but has pain this morning. They noted that he had a shoulder injury approximately 2 years ago which causes him pain when he is moved. The family expresses that he had an echocardiogram approximately 1 month ago which is unavailable. Afebrile overnight. There are no reports of fevers, chills, nausea, vomiting, chest pain , or respiratory distress. <Toya Foy - 11/14/17 10:49> Results - Labs Result diagrams: 11/13/17 12:29 11/13/17 12:29 <Karan Ramírez - 11/14/17 15:45> Abnormal lab results 11/13/17 11/13/17 11/14/17 Range/Units 12:29 20:41 05:40 Carbon Dioxide 37.5 H (21.0-32.0) meq/L Estimated GFR 80 L (>89) mL/min POC Glucose 176 H (68-110) mg/dl Random Glucose 135 H (74-106) mg/dL Alkaline Phosphatase 129 H (45-117) U/L Troponin I Less than 0.02 L (0.02-0.05) ng/mL Albumin 3.3 L (3.4-5.0) g/dL Vitamin D 25-Hydroxy 6.6 L (30-100) ng/mL Urine Clarity Hazy H (Clear) Urine Urobilinogen 2.0 H (Less than 2) mg/dL Urine Mucus Few H (Occasional) /lpf BMP 11/13/17 12:29 Sodium 142 Potassium 4.6 Chloride 100 Carbon Dioxide 37.5 H BUN 18 Creatinine 0.91 Calcium 8.6 Cardiac Enzymes 11/13/17 11/13/17 Range/Units 12:29 12:29 Troponin I Less than 0.02 L Cancelled (0.02-0.05) ng/mL Liver Function 11/13/17 Range/Units 12:29 Total Bilirubin 0.4 (0.2-1.0) mg/dL AST 34 (15-37) U/L ALT 28 (12-78) U/L Alkaline Phosphatase 129 H (45-117) U/L Albumin 3.3 L (3.4-5.0) g/dL Urine 11/14/17 Range/Units 05:40 Urine Color Yellow (Yellw/Straw) Urine Clarity Hazy H (Clear) Urine pH 5.0 (5.0-8.5) Ur Specific Kim 1.021 (1.002-1.035) Urine Protein Negative (Neg-Trace) mg/dL Urine Glucose (UA) Negative (Negative) mg/dL <RamírezKaran boyle E - 11/14/17 15:45> Abnormal lab results 11/13/17 11/13/17 11/13/17 Range/Units 12:29 12:29 12:29 RBC 3.91 L (4.50-5.90) mil/mm3 Hgb 11.0 L (13.0-17.0) gm/dL Hct 34.3 L (39.0-51.0) % Neut % (Auto) 74.0 H (16.0-70.0) % Eos % (Auto) 5.7 H (0.0-4.0) % APTT 22.0 L (24.3-30.1) sec Carbon Dioxide 37.5 H (21.0-32.0) meq/L Estimated GFR 80 L (>89) mL/min POC Glucose (68-110) mg/dl Random Glucose 135 H (74-106) mg/dL Alkaline Phosphatase 129 H (45-117) U/L Troponin I Less than 0.02 L (0.02-0.05) ng/mL Albumin 3.3 L (3.4-5.0) g/dL Vitamin D 25-Hydroxy 6.6 L (30-100) ng/mL Urine Clarity (Clear) Urine Urobilinogen (Less than 2) mg/dL Urine Mucus (Occasional) /lpf 11/13/17 11/14/17 Range/Units 20:41 05:40 RBC (4.50-5.90) mil/mm3 Hgb (13.0-17.0) gm/dL Hct (39.0-51.0) % Neut % (Auto) (16.0-70.0) % Eos % (Auto) (0.0-4.0) % APTT (24.3-30.1) sec Carbon Dioxide (21.0-32.0) meq/L Estimated GFR (>89) mL/min POC Glucose 176 H (68-110) mg/dl Random Glucose (74-106) mg/dL Alkaline Phosphatase (45-117) U/L Troponin I (0.02-0.05) ng/mL Albumin (3.4-5.0) g/dL Vitamin D 25-Hydroxy (30-100) ng/mL Urine Clarity Hazy H (Clear) Urine Urobilinogen 2.0 H (Less than 2) mg/dL Urine Mucus Few H (Occasional) /lpf Short CBC 11/13/17 Range/Units 12:29 WBC 7.8 (4.0-11.0) th/mm3 Hgb 11.0 L (13.0-17.0) gm/dL Hct 34.3 L (39.0-51.0) % Plt Count 170 (150-450) th/mm3 BMP 11/13/17 12:29 Sodium 142 Potassium 4.6 Chloride 100 Carbon Dioxide 37.5 H BUN 18 Creatinine 0.91 Calcium 8.6 Cardiac Enzymes 11/13/17 11/13/17 Range/Units 12:29 12:29 Troponin I Less than 0.02 L Cancelled (0.02-0.05) ng/mL Liver Function 11/13/17 Range/Units 12:29 Total Bilirubin 0.4 (0.2-1.0) mg/dL AST 34 (15-37) U/L ALT 28 (12-78) U/L Alkaline Phosphatase 129 H (45-117) U/L Albumin 3.3 L (3.4-5.0) g/dL Urine 11/14/17 Range/Units 05:40 Urine Color Yellow (Yellw/Straw) Urine Clarity Hazy H (Clear) Urine pH 5.0 (5.0-8.5) Ur Specific Kim 1.021 (1.002-1.035) Urine Protein Negative (Neg-Trace) mg/dL Urine Glucose (UA) Negative (Negative) mg/dL <Toya Foy - 11/14/17 10:49> - Imaging Impressions Chest X-Ray 11/14/17 00:00 CONCLUSION: Increased left sided opacity with near complete opacification of the hemithorax. Increased shift of the mediastinum to the left suggesting a component of atelectasis. Hip X-Ray 11/14/17 00:00 CONCLUSION: 1. Left hip ORIF, as above. <Karan Ramírez - 11/14/17 15:45> Impressions Chest X-Ray 11/13/17 12:18 CONCLUSION: Abnormal pleural-based thickening and calcification measuring up to 4.9 cm in diameter in the left hemithorax possibly associated with a prior left thoracotomy. Diminished size of the left lung possibly from partial prior resection. No dense consolidation on the right. Suspected parenchymal scarring and apical pleural thickening. Hip X-Ray 11/13/17 12:18 CONCLUSION: Intertrochanteric fracture of the proximal left. Osteopenia. Chest X-Ray 11/14/17 00:00 CONCLUSION: Increased left sided opacity with near complete opacification of the hemithorax. Increased shift of the mediastinum to the left suggesting a component of atelectasis. <Toya Foy - 11/14/17 10:49> Physical Exam Vital signs: Vital Signs 11/13/17 16:56 11/13/17 18:06 11/13/17 18:20 Temperature Pulse Rate 103 H Respiratory Rate 22 22 Blood Pressure 143/63 H Pulse Oximetry 99 99 11/13/17 19:35 11/13/17 20:00 11/13/17 20:07 Temperature 98.8 F Pulse Rate 108 H Respiratory Rate 20 18 Blood Pressure 134/63 Pulse Oximetry 98 98 11/13/17 21:03 11/13/17 21:42 11/14/17 00:00 Temperature 98.7 F Pulse Rate 105 H 109 H 110 H Respiratory Rate 20 20 Blood Pressure 119/57 L Pulse Oximetry 99 95 11/14/17 00:36 11/14/17 03:45 11/14/17 04:00 Temperature 98.1 F Pulse Rate 110 H 112 H 105 H Respiratory Rate 20 Blood Pressure 105/51 L Pulse Oximetry 92 L 11/14/17 08:00 11/14/17 14:32 Temperature 98.5 F 97.4 F L Pulse Rate 111 H 91 H Respiratory Rate 20 14 Blood Pressure 131/60 113/55 L Pulse Oximetry 92 L 91 L Intake & Output 11/13/17 11/14/17 11/14/17 18:59 06:59 18:59 Intake Total 1000 / 1000 700 / 700 Output Total 50 / 50 200 / 200 Balance 950 / 950 500 / 500 Weight 74.843 kg 63.503 kg Intake: IV 1000 / 1000 NS Inj 1,000 ML @ 100 mls/hr IV 1000 / 1000 .CONT .Q10H [facility] Rx#:[id number] Anesthesia Amount 700 / 700 Output: Urine 50 / 50 Estimated Blood Loss 200 / 200 Other: Date of Last Bowel Movement 11/13/17 11/13/17 Weight On Admission 63.796 kg <Karan Ramírez E - 11/14/17 15:45> Vital Signs 11/13/17 12:20 11/13/17 12:24 11/13/17 14:12 Temperature 98.0 F Pulse Rate 90 95 H Respiratory Rate 20 20 Blood Pressure 142/58 H 138/65 Pulse Oximetry 88 L 99 11/13/17 15:00 11/13/17 16:56 11/13/17 18:06 Temperature Pulse Rate 98 H 103 H Respiratory Rate 22 22 22 Blood Pressure 129/62 143/63 H Pulse Oximetry 97 99 11/13/17 18:20 11/13/17 19:35 11/13/17 20:00 Temperature 98.8 F Pulse Rate 108 H Respiratory Rate 20 Blood Pressure 134/63 Pulse Oximetry 99 98 98 11/13/17 20:07 11/13/17 21:03 11/13/17 21:42 Temperature Pulse Rate 105 H 109 H Respiratory Rate 18 20 Blood Pressure Pulse Oximetry 99 11/14/17 00:00 11/14/17 00:36 11/14/17 03:45 Temperature 98.7 F Pulse Rate 110 H 110 H 112 H Respiratory Rate 20 Blood Pressure 119/57 L Pulse Oximetry 95 11/14/17 04:00 Temperature 98.1 F Pulse Rate 105 H Respiratory Rate 20 Blood Pressure 105/51 L Pulse Oximetry 92 L Intake & Output 11/13/17 11/14/17 11/14/17 18:59 06:59 18:59 Intake Total 1000 / 1000 Output Total 50 / 50 Balance 950 / 950 Weight 74.843 kg 63.503 kg Intake: IV 1000 / 1000 NS Inj 1,000 ML @ 100 mls/hr IV 1000 / 1000 .CONT .Q10H [facility] Rx#:[id number] Output: Urine 50 / 50 Other: Date of Last Bowel Movement 11/13/17 11/13/17 Weight On Admission 63.796 kg <Toya Foy - 11/14/17 10:49> Narrative: GENERAL: Vital signs noted. Pulse 105 respirations 20 temperature afebrile blood pressure 105/51 this morning. HEAD: Atraumatic. Normocephalic. CARDIOVASCULAR: Regular rate and rhythm. Normal S1 and S2 without murmur. RESPIRATORY: No accessory muscle use. Clear to auscultation but diminished breath sounds on left side. GASTROINTESTINAL: Abdomen soft, non-tender, nondistended. Hepatic and splenic margins not palpable. MUSCULOSKELETAL: Mel[place] traction in place on left leg. No other obvious deformity noted. NEUROLOGICAL: Awake and alert. No obvious cranial nerve deficits. <Toya Foy Jorje - 11/14/17 10:49> Assessment and Plan - Assessment (1) Fracture, intertrochanteric, left femur Code(s): S72.142A - Displaced intertrochanteric fracture of left femur, initial encounter for closed fracture Status: Acute (2) Fall Code(s): W19.XXXA - Unspecified fall, initial encounter Status: Acute (3) CHF (congestive heart failure) Code(s): I50.9 - Heart failure, unspecified Status: Acute (4) Emphysema of lung Code(s): J43.9 - Emphysema, unspecified Status: Acute (5) Borderline diabetes mellitus Code(s): R73.03 - Prediabetes Status: Acute (6) Nutrition, metabolism, and development symptoms Code(s): R63.8 - Other symptoms and signs concerning food and fluid intake Status: Acute <Karan Ramírez - 11/14/17 15:45> (1) Fracture, intertrochanteric, left femur Code(s): S72.142A - Displaced intertrochanteric fracture of left femur, initial encounter for closed fracture Status: Acute Plan: Patient came to the ED after a witnessed fall 11/13/17. X-ray of the hip showed intertrochanteric fracture on the left and osteopenia. Orthopedic surgery consulted, preop labs ordered and reviewed: mild anemia with H&H 11/34.3, coags within normal limits Consulted pulmonology/cardiology for surgery clearance. Vitamin D level 6 - will discuss with family regarding supplementation Continue Castellanos's traction prior to surgical managment Percocet/morphine for breakthrough pain scale NPO for surgery at this time (2) Fall Code(s): W19.XXXA - Unspecified fall, initial encounter Status: Acute Plan: Family reports that patient often gets lightheaded when standing up quickly which occurred today prior to the fall Denies any loss of consciousness, chest pain or shortness of breath different from baseline EKG on admission showed sinus rhythm with no T-wave inversions Continuous telemetry - no reported events No electrolyte abnormalities, mildly anemic with H&H of 11.0/34.3 UA collected 11/14, showing no evidence of infection. Troponin x 1 negative for evidence of cardiac ischemia Suspect orthostatic etiology of the fall, may need to consider further imaging pending the hospital course (3) CHF (congestive heart failure) Code(s): I50.9 - Heart failure, unspecified Status: Acute Plan: Patient with a known history of CHF. Followed by Dr. Weinstein per family ASCVD with coronary disease and history congestive heart failure by history Pre-hospital EF unknown Echo performed 11/14/17 showing EF 60-65%, severe pulmonary HTN with 76mm Hg pressure Chest x-ray on admission showed abnormal pleural-based thickening and calcification measuring up to 4.9 cm in the left hemithorax possibly associated with a prior left thoracotomy. Diminished size of the left lung possibly from partial prior resection. No signs of pleural effusion. Does not appear to be fluid overloaded on exam EKG on admission was normal Per piano sounding board matcher report, anticipate clearance for surgery based on clinical picture, risk vs. benefit profile of surgical repair of hip, however echo was pending at their initial evaluation. 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 Probable empyema surgery at age 20. Former smoker. Quit 1 year ago but previously smoked 3-4 packs per day 3-4 L nasal cannula at home, continued while inpatient Nebulizer treatments at home, family cannot confirm the exact medication Duonebs every 4-6 hours as needed for wheezing Pulmonology consulted as he will need surgical clearance. They are following. They recommended Symbicort 160 4.5 mcg 2 puffs daily. Repeat CXR ordered this morning 11/14 pending. Family requested that anesthesia team discuss case with them prior to surgery today, nurse aware and has called surgeon and anesthesiologist. (5) Borderline diabetes mellitus Code(s): R73.03 - Prediabetes Status: Acute Plan: Known history of borderline type 2 diabetes Takes metformin 500 mg p.o. daily Holding home medications for now. Random glucose on admission was 135 Sliding scale Novolog if needed (6) Nutrition, metabolism, and development symptoms Code(s): R63.8 - Other symptoms and signs concerning food and fluid intake Status: Acute Plan: NPO for now pre-operatively. Will resume diet post-operatively as tolerated Electrolytes within normal limits. Will replete as needed No IV fluids at this time SCDs for DVT prophylaxis until surgical plan is established. Pharmacologic anticoagulation indicated postoperatively (usually initiated 24 hr postoperatively) <Toya Foy - 11/14/17 11:03> - Assessment and Plan Attending note: patient seen and examined with resident team. 2 d echo did reveal preserved left vent function and increase pulmonary artery pressure consistent with lung disease. Family has multiple concerns and patent's and daughters are in attendance. Patient is to go to OR for rt hip orif by orthopedic surgery. In discussion with daughter, Tenisha, reviewed that post op patient would most likely need snf rehab and she related that his baseline mental status is one that requires constant attendance as he has developed a dementia. Emphasized that after anesthesia, cn anticipate that confusion will temporarily worsen. Agree with orders as written by resident team. Follow closely post op. Karan Ramírez MD 11/14/17. <Karan Ramírez - 11/14/17 15:45> 82-year-old male with a history of emphysema, CHF, prediabetes admitted after a fall. Found to have left intertrochanteric fracture. Consulting pulmonology, cardiology for surgical clearance. Orthopedic surgery consulted. Given patient' s history of emphysema and CHF, preoperative clearance indicated and we have expedited this process to the best of our ability so the patient can be up out of bed and begin a rehab program post-operatively. Of note, patient's family requested that no parts interpreter service be used during encounters with him because it makes him upset, and patient's primary language is Yi. <Toya Foy - 11/14/17 10:49> Discussed Condition With: Dr. Karan Ramírez, attending Dr. Omar Davies, PGY2 Dr. Erendira Iyer, PGY1 Whitney Hernandez RN <Toya Foy - 11/14/17 10:50>
--- NOTE | 2017-11-14 11:32 | MB ---
cc: Zeke Robertson MD DATE: 11/13/2017 REASON FOR CONSULTATION: Left intertrochanteric hip fracture. I was asked to see the patient in consultation by the emergency room physician, Dr. Abbasi. HISTORY OF PRESENT ILLNESS: This patient is an 82-year-old Micronesian male who is speaks only Micronesian and is accompanied at the bedside by his and daughter who also speak Puerto Rican and are helping with translation purposes. He had a mechanical fall observed at his home without loss of consciousness and developed acute onset of severe pain. In regard to the left hip, he was unable to stand, walk bear weight or ambulate, or even move that hip without severe, excruciating pain. The pain is constant and severe, worsening with any movement of that left hip. He was brought to [facility] Emergency Room. X-rays confirm evidence of a displaced comminuted left intertrochanteric hip fracture. PAST MEDICAL HISTORY: Positive for severe emphysema with COPD, pulmonary fibrosis, bronchiectasis. Dr. Lazcano, is his case management social worker and I saw Dr. Lazcano at the bedside as well in the emergency room and discussed the patient with him. He also has a past history of congestive heart failure and some valvular disease. Past medical history also includes diabetes mellitus, kidney stones, pneumothorax. PAST SURGICAL HISTORY: Hernia repair. SOCIAL HISTORY: He is . No history of significant alcohol or substance abuse. He has a history of prior former smoker but does not currently smoke. FAMILY HISTORY: Reviewed and noncontributory. REVIEW OF SYSTEMS: He does have chronic shortness of breath, intermittent chest pain. No nausea, vomiting, diarrhea. No abdominal pain. No urinary urgency or frequency. All other review of systems negative other than HPI per 10 systems. HOME MEDICATIONS: Reviewed per the MAR. PHYSICAL EXAMINATION: VITAL SIGNS: Temperature 98, pulse is 90, respirations 20, blood pressure 142/58. GENERAL: The patient is a well-nourished male. He is lying in bed. He is in mild distress related to his left hip fracture. SKIN: Warm, dry, intact. HEENT: Normocephalic, atraumatic. Pupils round. No scleral icterus. NECK: Supple. HEART: Regular rate and rhythm. LUNGS: Air entry bilaterally. ABDOMEN: Soft, nontender. EXTREMITIES: The patient has pain with any passive motion of the left hip. His hip is shortened and externally rotated. IMAGING DATA: X-ray of left hip revealed a comminuted displaced left intertrochanteric hip fracture. IMPRESSION: An 82-year-old male status post fall, left comminute displaced intertrochanteric hip fracture. History of congestive heart failure, history of chronic obstructive pulmonary disease. PLAN: I discussed with the patient in detail with Dr. Abbasi, the emergency room physician, as well as Dr. Lazcano at the bedside, who is the patient's case management social worker. I have discussed in detail with the patient along with the patient's and daughter. We spoke about the orthopedic left hip fracture injury in detail. We talked about treatment options, both operative versus nonoperative treatment. The risks of both operative and nonoperative treatment were discussed in detail. In regard to surgery, the risks of surgery were discussed which include, but not limited to, anesthesia, bleeding, infection, damage to nerves and blood vessels, continued pain, failure of hardware, blood clots, pulmonary embolism, and even . The patient and family wished to proceed with surgery. Dr. Lazcano has cleared the patient after my conversation with him from a pulmonary standpoint. Written consent has been obtained. The surgical site has been marked. We will schedule surgery accordingly. MD RYLAN Salgado/britany , 09:43 AM , 09:52 AM
[2017-11-14] MEDS: ceFAZolin Inj 2,000 MG in Sodium Chlor 0.9% Inj 80 ML IV.SIG SCH ×2 (11:55→21:08)
[2017-11-14] MEDS ORDERED: Sod Chloride 0.9% Inj 1,000 ML IV.SIG ONE (12:00)
[2017-11-14] MEDS ORDERED: Labetalol HCl Inj 100 MG/20 ML Vial IV.CONT ONE (12:00)
[2017-11-14] MEDS ORDERED: Glycopyrrolate Inj 1 MG/5 ML Syringe IV.PUSH ONE (12:00)
[2017-11-14] MEDS ORDERED: Phenylephrine/NS 1000 MCG/10ML Syringe IV.PUSH ONE (12:00)
[2017-11-14] MEDS ORDERED: Lidocaine PF 1% Inj 5 ML Syringe INFILTRATN ONE (12:00)
[2017-11-14] MEDS ORDERED: Post-op Orders (for Pharmacy) OTHER STA (13:14)
[2017-11-14] MEDS ORDERED: Morphine Inj 4 MG/ML Vial IV.PUSH PRN (13:14)
[2017-11-14] MEDS ORDERED: Promethazine 25 MG Supp RECTAL PRN (13:14)
--- NOTE | 2017-11-14 13:50 | XR ---
EXAM DATE: 11/14/2017 1:42 PM EDT AGE/SEX: 82 years / Male INDICATIONS: Left troch nail. CLINICAL DATA: This is the patient's initial encounter. Patient reports that signs and symptoms have been present for 1 day and indicates a pain score of Nonresponsive. MEDICAL/SURGICAL HISTORY: None. None. COMPARISON: C, HIP LEFT W AP PELVIS 2V, 11/13/2017. . FINDINGS: Multiple fluoroscopic images demonstrate intertrochanteric trinh and compression screw fixation of the left femoral intertrochanteric fracture. There is near-anatomic alignment of the fracture fragments. Hardware appears well-positioned. No additional new fractures. CONCLUSION: 1. Left hip ORIF, as above. Electronically signed by: Kyaw Gallo MD 11/14/2017 1:48 PM EDT
--- NOTE | 2017-11-14 13:59 | OTSOAPIP ---
RECEIVED OCCUPATIONAL THERAPY ORDERS. PATIENT IS CURRENTLY OFF FLOOR UNDERGOING SURGICAL INTERVENTION FOR LEFT HIP FRACTURE. WILL REATTEMPT EVALUATION TOMORROW S/P SURGERY. INTERDISCIPLINARY COMMUNICATION: REVIEWED ELECTRONIC MEDICAL RECORD Therapist: DANA Bergman/Jorje Signature on file
[2017-11-14] MEDS ORDERED: fentaNYL Citrate Inj 100 MCG/2 ML Ampul ONE (14:33)
--- NOTE | 2017-11-14 14:50 | MP ---
cc: Zeke Robertson MD DATE OF OPERATION: 11/14/2017 PREOPERATIVE DIAGNOSIS: Left intertrochanteric hip fracture. POSTOPERATIVE DIAGNOSIS: Left intertrochanteric hip fracture. PROCEDURE PERFORMED: Intramedullary nailing, left intertrochanteric hip fracture. SURGEON: Zeke Robertson MD SPANISH LANGUAGE LECTURER: MIKE Worley. ANESTHESIA: General. ESTIMATED BLOOD LOSS: 200 mL. COMPLICATIONS: None. IMPLANTS USED: Synthes titanium trochanteric femoral nail measuring 12 x 320 mm with a 105 mm proximal lag screw, 130-degree angle. JUSTIFICATION: This patient is an 82-year-old male who fell sustaining a left displaced comminuted intertrochanteric hip fracture with some subtrochanteric extension. He was taken to [facility] Emergency Room. X-rays confirmed the above-named findings. Orthopedic surgery consultation was made as well as the patient's family members were counseled as to the risks, benefits and alternatives to the above-named proposed surgical procedure, the patient as well as the patient's and [id number]. They wished to proceed with surgery as outlined above. PROCEDURE IN DETAIL: Appropriate written consent has been obtained. The patient was identified, taken to the operating room, and placed supine on the table. General anesthesia was administered, as well as 2 grams of IV Ancef and 1 gram of IV vancomycin. The left foot was placed in the padded traction boot. The right leg was placed in a padded well leg freeman. The left hip and left lower extremity were prepped and draped using isopropyl alcohol, Hibiclens solution and ChloraPrep solution. After a timeout was performed, a longitudinal incision was made over the lateral aspect of the left hip. The fascial layer was incised. A guidewire was used to gain entrance into the intramedullary canal from the tip of the greater trochanter. This was followed by cannulated entry reamer. Subsequently, a long beaded tip guidewire was placed on the intramedullary canal of the femur. Sequential reaming began at size 8.5 and was carried through to size 13. Subsequently, a Synthes titanium 12 x 320 mm trochanteric femoral nail was inserted over the guidewire into the intramedullary canal of the femur. The 130-degree locking jig was used to place the guide pin, centered into the femoral head. This was followed by placement of a 105 mm lag screw. I chose to go a little bit more inferior into the femoral neck and the femoral head as this gave the best purchase and fixation. The top locking screw was then secured to create a fixed angle construct after appropriate compression across the fracture. Fluoroscopic imaging again confirmed hardware placement, fracture reduction. The fluoroscopic perfect quileute technique was used to place a single lateral to medial transverse static locking screw distally through the nail. The surgical wound was thoroughly irrigated with sterile saline solution. The fascial layer was closed with #1 Vicryl suture, subcutaneous layer with 2-0 Vicryl suture, skin was closed with Dermabond. Sterile dressing applied. The patient tolerated the procedure well with no intraoperative complications noted. Nixon Huff, physician administrative assistant, certified was put during the entire procedure to include patient positioning and the procedure itself. The medical necessity of a physician administrative assistant was indicated in this case due to the complexity of the procedure. He assisted with appropriate manipulation of the leg and also retraction of muscle, tendon, bone, and neurovascular structures. He assisted with fracture reduction as well as implantation of the internal fixation device. Zeke Robertson MD JWM/sv , 01:12 PM , 01:20 PM
--- NOTE | 2017-11-14 16:19 | ECG ---
Date Performed: 11/13/2017 Time Performed: 12:15:10 PTAGE: 82 years EKG: Sinus rhythm NONSPECIFIC T-WAVE ABNORMALITY BORDERLINE ECG NO PREVIOUS TRACING DOCTOR: Dustin Nazario Interpretating Date/Time 11/14/2017 16:17:45
[2017-11-14] MEDS: Senna/Docusate Sodium 8.6/50 MG Tablet PO SCH ×2 (17:10→21:08)
--- NOTE | 2017-11-14 17:21 | P.PN ---
Subjective Interval history: Went for ORIF of left Hip Fracture . Now very lethargic and on O2 3 L. Wakes up to loud commands. Physical Exam Vital signs: Vital Signs 11/13/17 18:06 11/13/17 18:20 11/13/17 19:35 Temperature Pulse Rate 103 H Respiratory Rate 22 Blood Pressure 143/63 H Pulse Oximetry 99 99 98 11/13/17 20:00 11/13/17 20:07 11/13/17 21:03 Temperature 98.8 F Pulse Rate 108 H 105 H Respiratory Rate 20 18 20 Blood Pressure 134/63 Pulse Oximetry 98 99 11/13/17 21:42 11/14/17 00:00 11/14/17 00:36 Temperature 98.7 F Pulse Rate 109 H 110 H 110 H Respiratory Rate 20 Blood Pressure 119/57 L Pulse Oximetry 95 11/14/17 03:45 11/14/17 04:00 11/14/17 08:00 Temperature 98.1 F 98.5 F Pulse Rate 112 H 105 H 111 H Respiratory Rate 20 20 Blood Pressure 105/51 L 131/60 Pulse Oximetry 92 L 92 L 11/14/17 14:32 11/14/17 14:45 11/14/17 15:00 Temperature 97.4 F L Pulse Rate 91 H 90 91 H Respiratory Rate 14 16 16 Blood Pressure 113/55 L 123/53 L 107/51 L Pulse Oximetry 91 L 93 L 93 L 11/14/17 15:15 11/14/17 15:37 Temperature Pulse Rate 92 H 92 H Respiratory Rate 16 18 Blood Pressure 114/57 L 131/56 L Pulse Oximetry 94 L 93 L Intake & Output 11/13/17 11/14/17 11/14/17 18:59 06:59 18:59 Intake Total 1000 / 1000 700 / 700 Output Total 50 / 50 650 / 650 Balance 950 / 950 50 / 50 Weight 74.843 kg 63.503 kg Intake: IV 1000 / 1000 NS Inj 1,000 ML @ 100 mls/hr IV 1000 / 1000 .CONT .Q10H [facility] Rx#:[id number] Anesthesia Amount 700 / 700 Output: Urine 50 / 50 Estimated Blood Loss 200 / 200 Urine Amount (Catheter) 450 / 450 Indwelling Urethral Catheter 450 / 450 Other: Date of Last Bowel Movement 11/13/17 11/13/17 Weight On Admission 63.796 kg Narrative: GENERAL: Elderly W/M average build in no distress. HEAD: Atraumatic. Normocephalic. CARDIOVASCULAR: Regular rate and rhythm. Normal S1 and S2 without murmur. RESPIRATORY: No accessory muscle use. Clear to auscultation but diminished breath sounds on left side. GASTROINTESTINAL: Abdomen soft, non-tender, nondistended. Hepatic and splenic margins not palpable. MUSCULOSKELETAL: Dressing at left hip area. No obvious deformity noted. NEUROLOGICAL: Sleepy today due to sedation. - Urinary Catheter Management Indwelling Urethral Catheter Cath placed during this visit: no Results - Labs CBC & Chem 7: 11/13/17 12:29 11/13/17 12:29 Laboratory Results - last 24 hr 11/13/17 11/13/17 11/13/17 12:29 12:29 12:29 Sodium 142 Potassium 4.6 Chloride 100 Carbon Dioxide 37.5 H Anion Gap 5 BUN 18 Creatinine 0.91 Estimated GFR 80 L POC Glucose Random Glucose 135 H Calcium 8.6 Total Bilirubin 0.4 AST 34 ALT 28 Alkaline Phosphatase 129 H Troponin I Less than 0.02 L Cancelled Total Protein 7.1 Albumin 3.3 L Vitamin D 25-Hydroxy 6.6 L Cancelled Urine Color Urine Clarity Urine pH Ur Specific [place] Urine Protein Urine Glucose (UA) Urine Ketones Urine Occult Blood Urine Nitrate Urine Bilirubin Urine Urobilinogen Ur Leukocyte Esterase Urine RBC Urine WBC Ur Squamous Epith Cells Urine Mucus Micro UA Comment Urine Culture Comments 11/13/17 11/14/17 20:41 05:40 Sodium Potassium Chloride Carbon Dioxide Anion Gap BUN Creatinine Estimated GFR POC Glucose 176 H Random Glucose Calcium Total Bilirubin AST ALT Alkaline Phosphatase Troponin I Total Protein Albumin Vitamin D 25-Hydroxy Urine Color Yellow Urine Clarity Hazy H Urine pH 5.0 Ur Specific [place] 1.021 Urine Protein Negative Urine Glucose (UA) Negative Urine Ketones Negative Urine Occult Blood Negative Urine Nitrate Negative Urine Bilirubin Negative Urine Urobilinogen 2.0 H Ur Leukocyte Esterase Negative Urine RBC Less than 1 Urine WBC 3 Ur Squamous Epith Cells 2 Urine Mucus Few H Micro UA Comment Culture not ind Urine Culture Comments Culture not ind - Imaging Impressions Chest X-Ray 11/14/17 00:00 CONCLUSION: Increased left sided opacity with near complete opacification of the hemithorax. Increased shift of the mediastinum to the left suggesting a component of atelectasis. Hip X-Ray 11/14/17 00:00 CONCLUSION: 1. Left hip ORIF, as above. Assessment and Plan - Assessment (1) CHF (congestive heart failure) Code(s): I50.9 - Heart failure, unspecified Status: Acute (2) Emphysema of lung Code(s): J43.9 - Emphysema, unspecified Status: Acute (3) Borderline diabetes mellitus Code(s): R73.03 - Prediabetes Status: Acute (4) Fracture, intertrochanteric, left femur Code(s): S72.142A - Displaced intertrochanteric fracture of left femur, initial encounter for closed fracture Status: Acute (5) Nutrition, metabolism, and development symptoms Code(s): R63.8 - Other symptoms and signs concerning food and fluid intake Status: Acute (6) Fall Code(s): W19.XXXA - Unspecified fall, initial encounter Status: Acute - Plan 1. Will, leave on O2 3 L. 2. Nebs qid < duoneb. 3. Continue antibiotics. 4. Duoneb nebs qid. 5. Chest Xray CBC BMP in am 6. IS at bedside q2h. 7. PT evaluation in am 8. D/W family here.
[2017-11-14] MEDS: Potassium Chloride 10 MEQ ER Capsule PO SCH (18:44)
[2017-11-14] MEDS ORDERED: Zolpidem Tartrate 5 MG Tablet PO PRN (21:00)
[2017-11-14] MEDS: MethylPREDNISolone Sod Succinate Inj 40 MG/ML Vial IV.PUSH SCH (21:07)
[2017-11-14 23:22] LABS: Creatinine,Urine Random 155 mg/dL (27-300)
[2017-11-14 23:23] LABS: Amorphous Sediment,Urine Rare /hpf; Bilirubin,Urine Negative (Negative); Clarity,Urine Hazy (Clear); Color,Urine Yellow (Yellw/Straw); Glucose,Urine (UA) 50 mg/dL (Negative); Hyaline Casts,Urine 1 /lpf (0-3); Leukocyte Esterase,Urine Trace (Negative); Mucus,Urine Few /lpf (Occasional); Nitrite,Urine Negative (Negative); Renal Epithelial Cells,Urine <1 /hpf; Specific Gravity,Urine 1.027 (1.002-1.035)
[2017-11-15] MEDS: Sod Chloride 0.9% Inj 1,000 ML IV.CONT SCH ×2 (01:15→09:28)
[2017-11-15] MEDS: Morphine Inj 4 MG/ML Vial IV.PUSH PRN (03:32)
[2017-11-15] MEDS: ceFAZolin Inj 2,000 MG in Sodium Chlor 0.9% Inj 80 ML IV.SIG SCH (03:33)
--- NOTE | 2017-11-15 05:01 | P.PNADD ---
Addendum to Inpatient Note Reason for Addendum: Corrected Documentation Additional information: [employer] team contacted at 04:29 due to increased shortness of breath and decreased oxygen saturation. This patient is an Brazilian only speaking 82 yo M with history of CHF and emphysema on 3-4L at home admitted for left intertrochanteric fracture s/p ORIF of left hip 11/14. Patient previously on Lasix which was held this afternoon due to concern for acute tubular necrosis after ORIF procedure. Per nursing patient has been tachycardic after midnight with a heart rate between 108 and 122. At 3:35a patient was given .5 of morphine for pain. Shortly after patient began to sat at 60% on 4L of oxygen and began to experience shortness of breath. Patient required 10 L of O2 via simple facemask and was satting at 91% . During this time the patient also had a breathing treatment. Upon arrival to bedside patient was found to be alert and awake and satting at 80% on 10L of oxygen and tachycardic at 122. During physical examination oxygen saturation ranged from 80% to 92%. GENERAL: Elderly, well-developed patient. Calm, responsive. Tachypneic, and in no acute distress. HENT: Normocephalic. Atraumatic. CARDIOVASCULAR: Regular rate and rhythm without obvious murmurs, gallops, or rubs. No S3 appreciated. RESPIRATORY: Patient had crackles in both bases bilaterally, louder on the right. No accessory muscle use. No wheezing or rhonchi appreciated. GASTROINTESTINAL: Abdomen soft, non-tender, nondistended. BS WNL. MUSCULOSKELETAL: Patient with mild nonpitting edema in lower extremities as well as in hands. NEURO/PSYCH: Awake, alert Assessment and plan: This patient is an Brazilian only speaking 82 yo M with history of CHF and emphysema on 3-4L at home admitted for left intertrochantaric fracture s/p ORIF of left hip 11/14. Stat ABG revealed a respiratory acidosis with a pH of 7.25 and a CO2 of 70 with blood O2 saturation of 89%. Patient received 40 milligrams of Lasix IV at 5:11 AM. -Transfer to ICU for BiPAP therapy. Discussed patient with Dr. Richards, is aware of case and is willing to assist if needed. -Follow up with CXR -Duo nebs every 4 hours, albuterol as needed -Follow-up with EKG -Follow-up lactic acid Of note: Patient is an Brazilian only speaking male, in the acute setting assisted with translation. Patient seen and discussed with Dr. Washburn.
[2017-11-15 05:15] LABS: ABG Base Excess 2.9 mmol/L (-2-2); ABG PCO2 70 mmHg (38-42); ABG PO2 70 mmHg (61-120)
--- NOTE | 2017-11-15 05:56 | XR ---
EXAM DATE: 11/15/2017 5:23 AM EDT AGE/SEX: 82 years / Male INDICATIONS: Shortness of breath. CLINICAL DATA: This is the patient's subsequent encounter. Patient reports that signs and symptoms h ave been present for 3 days and indicates a pain score of Nonresponsive. MEDICAL/SURGICAL HISTORY: Non-responsive. Non-responsive. COMPARISON: [facility] [place] 1V SINGLE AP, 11/14/2017. . FINDINGS: There is increased density seen throughout the left chest. There appears to be pleural thickening or fluid seen bilaterally. There is shift of heart and mediastinal structures towards the left suggestin g some component of atelectasis. There appears to be calcification at the left diaphragmatic surface. There is mild increased density seen at the right base. There is some pleural thickening along the i nferior lateral and right upper chest. There is silhouetting of the left heart border. CONCLUSION: Persistent increased density seen throughout the left chest. There is pleural thickening or fluid see n on the left side. The shift of heart and mediastinal structures is consistent with some component o f atelectasis at the left lung. Mild pleural thickening or fluid seen on the right side with some increased density at the right base representing some consolidation or atelectasis. Electronically signed by: Arvin Nguyễn MD 11/15/2017 5:55 AM EDT
--- NOTE | 2017-11-15 06:00 | P.PNOP ---
Subjective Interval history: co sob overnight family at bedside Physical Exam Vital signs: Vital Signs 11/14/17 08:00 11/14/17 14:32 11/14/17 14:45 Temperature 98.5 F 97.4 F L Pulse Rate 111 H 91 H 90 Respiratory Rate 20 14 16 Blood Pressure 131/60 113/55 L 123/53 L Pulse Oximetry 92 L 91 L 93 L 11/14/17 15:00 11/14/17 15:15 11/14/17 15:37 Temperature Pulse Rate 91 H 92 H 92 H Respiratory Rate 16 16 18 Blood Pressure 107/51 L 114/57 L 131/56 L Pulse Oximetry 93 L 94 L 93 L 11/14/17 16:00 11/14/17 20:00 11/15/17 00:00 Temperature 97.7 F 97.5 F L 97.6 F Pulse Rate 99 H 109 H 108 H Respiratory Rate 20 17 17 Blood Pressure 118/52 L 117/56 L 129/64 Pulse Oximetry 95 95 95 11/15/17 04:10 11/15/17 04:22 11/15/17 04:23 Temperature Pulse Rate 122 H Respiratory Rate 36 H Blood Pressure Pulse Oximetry 92 L 92 L Intake & Output 11/14/17 11/14/17 11/15/17 06:59 18:59 06:59 Intake Total 1000 / 1000 1800 / 1800 100 / 100 Output Total 50 / 50 650 / 650 Balance 950 / 950 1150 / 1150 100 / 100 Weight 63.503 kg Intake: IV 1000 / 1000 1100 / 1100 100 / 100 NS Inj 1,000 ML @ 100 mls/hr IV 1000 / 1000 1000 / 1000 .CONT .Q10H [facility] Rx#:[id number] Ancef Inj 2,000 MG In NS Inj 80 100 / 100 100 / 100 ML @ 200 mls/hr IV.SIG Q8H [facility] Rx#:[id number] Anesthesia Amount 700 / 700 Output: Urine 50 / 50 Estimated Blood Loss 200 / 200 Urine Amount (Catheter) 450 / 450 Indwelling Urethral Catheter 450 / 450 Other: Date of Last Bowel Movement 11/13/17 11/13/17 11/13/17 Weight On Admission 63.796 kg - Routine Extremities Exam Comments: left hip dressing c/di/i compartemts soft altered mental status - Urinary Catheter Management Indwelling Urethral Catheter Cath placed during this visit: no Results - Labs CBC & Chem 7: 11/13/17 12:29 11/13/17 12:29 Laboratory Results - last 24 hr 11/14/17 11/14/17 11/14/17 05:40 21:30 21:30 Puncture Site Patient Temperature O2 Saturation ABG pH ABG pCO2 ABG pO2 ABG HCO3 ABG O2 Content ABG Base Excess ABG Methemoglobin Krishna Test Hemoglobin Carboxyhemoglobin O2 Delivery Device Liter Flow Critical Value Urine Color Yellow Yellow Urine Clarity Hazy H Hazy H Urine pH 5.0 5.0 Ur Specific [place] 1.021 1.027 Urine Protein Negative Negative Urine Glucose (UA) Negative 50 Urine Ketones Negative Trace Urine Occult Blood Negative Small H Urine Nitrate Negative Negative Urine Bilirubin Negative Negative Urine Urobilinogen 2.0 H 2.0 H Ur Leukocyte Esterase Negative Trace H Urine RBC Less than 1 3 Urine WBC 3 16 H Ur Squamous Epith Cells 2 Ur Renal Epithelial Cell <1 Amorphous Sediment Rare H Hyaline Casts 1 Granular Casts 3 Urine Mucus Few H Few H Micro UA Comment Culture not ind Cath Urine Culture Comments Culture not ind Urine Osmolality Ur Random Creatinine 155 Ur Random Sodium 9 11/14/17 11/15/17 21:30 05:02 Puncture Site Right radial Patient Temperature 98.6 O2 Saturation 89 L* ABG pH 7.25 L* ABG pCO2 70 H* ABG pO2 70 ABG HCO3 30 H ABG O2 Content 9.8 L ABG Base Excess 2.9 H ABG Methemoglobin 1.0 Krishna Test 1 Hemoglobin 7.7 L Carboxyhemoglobin 2.1 O2 Delivery Device Simple mask Liter Flow 10.00 Critical Value Yes Urine Color Urine Clarity Urine pH Ur Specific [place] Urine Protein Urine Glucose (UA) Urine Ketones Urine Occult Blood Urine Nitrate Urine Bilirubin Urine Urobilinogen Ur Leukocyte Esterase Urine RBC Urine WBC Ur Squamous Epith Cells Ur Renal Epithelial Cell Amorphous Sediment Hyaline Casts Granular Casts Urine Mucus Micro UA Comment Urine Culture Comments Urine Osmolality 622 Ur Random Creatinine Ur Random Sodium - Imaging Impressions Chest X-Ray 11/14/17 00:00 CONCLUSION: Increased left sided opacity with near complete opacification of the hemithorax. Increased shift of the mediastinum to the left suggesting a component of atelectasis. Hip X-Ray 11/14/17 00:00 CONCLUSION: 1. Left hip ORIF, as above. Chest X-Ray 11/15/17 00:00 CONCLUSION: Persistent increased density seen throughout the left chest. There is pleural thickening or fluid seen on the left side. The shift of heart and mediastinal structures is consistent with some component of atelectasis at the left lung. Mild pleural thickening or fluid seen on the right side with some increased density at the right base representing some consolidation or atelectasis. Assessment and Plan - Ortho Post Op Day # 1 - Assessment and Plan pod 1 sp left troch nail c/o sob multiple medical comoridites with copd, cad plan transfer to icu for respiratory support lovenox and scd for dvt prophylaxis physical therapy 50-% pwb LLE will need snf when medicaly cleared for discharge
[2017-11-15 06:29] LABS: Baso % (Auto) 0.2 % (0.0-2.0); Hematocrit 24.9 % (39.0-51.0); Lymph # (Auto) 0.6 th/mm3 (1.0-4.8); Lymph % (Auto) 3.1 % (9.0-44.0); Mean Corpuscular HGB Conc 32.1 % (32.0-36.0); Mean Corpuscular Hemoglobin 28.7 pg (27.0-34.0); Mean Corpuscular Volume 89.4 fL (80.0-100.0); Mean Platelet Volume 8.3 fL (7.0-11.0); Mono # (Auto) 1.3 th/mm3 (0.0-0.9); Mono % (Auto) 6.1 % (0.0-8.0); Neut # (Auto) 18.8 th/mm3 (1.8-7.7); Neut % (Auto) 90.6 % (16.0-70.0); Platelet Count 162 th/mm3 (150-450); Red Blood Count 2.78 mil/mm3 (4.50-5.90); Red Cell Distribution Width 16.2 % (11.6-17.2); White Blood Count 20.8 th/mm3 (4.0-11.0)
[2017-11-15] MEDS ORDERED: Vancomycin Consult Pharmacy OTHER ONE (06:52)
[2017-11-15] MEDS ORDERED: Vancomycin Inj 1,000 MG in Sodium Chlor 0.9% Inj 250 ML IV.SIG ONE ×2 (06:53→07:00)
[2017-11-15 07:01] LABS: Calcium 7.5 mg/dL (8.5-10.1); Potassium 4.5 meq/L (3.5-5.1); Troponin I 0.03 ng/mL (0.02-0.05)
[2017-11-15 07:19] LABS: CKMB Percent 0.8 % (0.0-4.0); Creatine Kinase MB 2.6 ng/mL (0.5-3.6)
[2017-11-15] MEDS ORDERED: Piperacil/Tazo 4.5 GM Premix 4.5 GM/100 ML BAG IV.SIG SCH (08:00)
--- NOTE | 2017-11-15 08:03 | P.PNFP ---
Subjective Interval history: Overnight, resident team was called due to increased oxygen demand and shortness of breath. Patient was requiring 10 L of nasal cannula with oxygen saturations in the 80s. ABG at that time showed a pH of 7.25 with CO2 of 70. Patient was transferred to the ICU for BiPAP. Oxygen saturations were maintained in the low 90s on a simple mask low flow rate of 10, FiO2 50. Results - Labs Result diagrams: 11/15/17 06:15 11/15/17 06:15 Abnormal lab results 11/14/17 11/14/17 11/15/17 Range/Units 05:40 21:30 05:02 WBC (4.0-11.0) th/mm3 RBC (4.50-5.90) mil/mm3 Hgb (13.0-17.0) gm/dL Hct (39.0-51.0) % Neut % (Auto) (16.0-70.0) % Lymph % (Auto) (9.0-44.0) % Neut # (Auto) (1.8-7.7) th/mm3 Lymph # (Auto) (1.0-4.8) th/mm3 Bennett # (Auto) (0.0-0.9) th/mm3 O2 Saturation 89 L* (90-100) % ABG pH 7.25 L* (7.380-7.420) ABG pCO2 70 H* (38-42) mmHg ABG HCO3 30 H (22-26) mmol/L ABG O2 Content 9.8 L (12.0-20.0) Vol % ABG Base Excess 2.9 H (-2-2) mmol/L Hemoglobin 7.7 L (12.0-16.0) G/DL BUN (7-18) mg/dL Creatinine (0.60-1.30) mg/dL Estimated GFR (>89) mL/min Random Glucose (74-106) mg/dL Lactic Acid (0.4-2.0) mmol/L Calcium (8.5-10.1) mg/dL Total Creatine Kinase (39-308) U/L Urine Clarity Hazy H Hazy H (Clear) Urine Occult Blood Small H (Negative) Urine Urobilinogen 2.0 H 2.0 H (Less than 2) mg/dL Ur Leukocyte Esterase Trace H (Negative) Urine WBC 16 H (0-5) /hpf Amorphous Sediment Rare H (None) /hpf Urine Mucus Few H Few H (Occasional) /lpf 11/15/17 11/15/17 11/15/17 Range/Units 06:15 06:15 06:15 WBC 20.8 H (4.0-11.0) th/mm3 RBC 2.78 L (4.50-5.90) mil/mm3 Hgb 8.0 L D (13.0-17.0) gm/dL Hct 24.9 L (39.0-51.0) % Neut % (Auto) 90.6 H (16.0-70.0) % Lymph % (Auto) 3.1 L (9.0-44.0) % Neut # (Auto) 18.8 H (1.8-7.7) th/mm3 Lymph # (Auto) 0.6 L (1.0-4.8) th/mm3 Bennett # (Auto) 1.3 H (0.0-0.9) th/mm3 O2 Saturation (90-100) % ABG pH (7.380-7.420) ABG pCO2 (38-42) mmHg ABG HCO3 (22-26) mmol/L ABG O2 Content (12.0-20.0) Vol % ABG Base Excess (-2-2) mmol/L Hemoglobin (12.0-16.0) G/DL BUN 25 H (7-18) mg/dL Creatinine 1.31 H (0.60-1.30) mg/dL Estimated GFR 53 L (>89) mL/min Random Glucose 243 H D (74-106) mg/dL Lactic Acid 3.4 H (0.4-2.0) mmol/L Calcium 7.5 L D (8.5-10.1) mg/dL Total Creatine Kinase 338 H (39-308) U/L Urine Clarity (Clear) Urine Occult Blood (Negative) Urine Urobilinogen (Less than 2) mg/dL Ur Leukocyte Esterase (Negative) Urine WBC (0-5) /hpf Amorphous Sediment (None) /hpf Urine Mucus (Occasional) /lpf Short CBC 11/15/17 Range/Units 06:15 WBC 20.8 H (4.0-11.0) th/mm3 Hgb 8.0 L D (13.0-17.0) gm/dL Hct 24.9 L (39.0-51.0) % Plt Count 162 (150-450) th/mm3 BMP 11/15/17 06:15 Sodium 141 Potassium 4.5 Chloride 105 Carbon Dioxide 28.0 D BUN 25 H Creatinine 1.31 H Calcium 7.5 L D Cardiac Enzymes 11/15/17 Range/Units 06:15 Total Creatine Kinase 338 H (39-308) U/L CK-MB (CK-2) 2.6 (0.5-3.6) ng/mL Troponin I 0.03 (0.02-0.05) ng/mL Urine 11/14/17 11/14/17 Range/Units 05:40 21:30 Urine Color Yellow Yellow (Yellw/Straw) Urine Clarity Hazy H Hazy H (Clear) Urine pH 5.0 5.0 (5.0-8.5) Ur Specific [place] 1.021 1.027 (1.002-1.035) Urine Protein Negative Negative (Neg-Trace) mg/dL Urine Glucose (UA) Negative 50 (Negative) mg/dL - Imaging Impressions Chest X-Ray 11/14/17 00:00 CONCLUSION: Increased left sided opacity with near complete opacification of the hemithorax. Increased shift of the mediastinum to the left suggesting a component of atelectasis. Hip X-Ray 11/14/17 00:00 CONCLUSION: 1. Left hip ORIF, as above. Chest X-Ray 11/15/17 00:00 CONCLUSION: Persistent increased density seen throughout the left chest. There is pleural thickening or fluid seen on the left side. The shift of heart and mediastinal structures is consistent with some component of atelectasis at the left lung. Mild pleural thickening or fluid seen on the right side with some increased density at the right base representing some consolidation or atelectasis. Physical Exam Vital signs: Vital Signs 11/14/17 08:00 11/14/17 14:32 11/14/17 14:45 Temperature 98.5 F 97.4 F L Pulse Rate 111 H 91 H 90 Respiratory Rate 20 14 16 Blood Pressure 131/60 113/55 L 123/53 L Pulse Oximetry 92 L 91 L 93 L 11/14/17 15:00 11/14/17 15:15 11/14/17 15:37 Temperature Pulse Rate 91 H 92 H 92 H Respiratory Rate 16 16 18 Blood Pressure 107/51 L 114/57 L 131/56 L Pulse Oximetry 93 L 94 L 93 L 11/14/17 16:00 11/14/17 20:00 11/15/17 00:00 Temperature 97.7 F 97.5 F L 97.6 F Pulse Rate 99 H 109 H 108 H Respiratory Rate 20 17 17 Blood Pressure 118/52 L 117/56 L 129/64 Pulse Oximetry 95 95 95 11/15/17 04:00 11/15/17 04:10 11/15/17 04:22 Temperature 98 F Pulse Rate 124 H 122 H Respiratory Rate 26 H 36 H Blood Pressure 161/65 H Pulse Oximetry 92 L 92 L 11/15/17 04:23 11/15/17 06:10 11/15/17 07:47 Temperature Pulse Rate 112 H Respiratory Rate 24 Blood Pressure Pulse Oximetry 92 L 94 L Intake & Output 11/14/17 11/15/17 11/15/17 18:59 06:59 18:59 Intake Total 1800 / 1800 100 / 100 40 / 40 Output Total 650 / 650 350 / 350 Balance 1150 / 1150 100 / 100 -310 / -310 Weight 64 kg Intake: IV 1100 / 1100 100 / 100 NS Inj 1,000 ML @ 100 mls/hr IV 1000 / 1000 .CONT .Q10H [facility] Rx#:[id number] Ancef Inj 2,000 MG In NS Inj 80 100 / 100 100 / 100 ML @ 200 mls/hr IV.SIG Q8H [facility] Rx#:[id number] Oral 40 / 40 Anesthesia Amount 700 / 700 Output: Stool 0 / 0 Urine/Stool Mix 0 / 0 Estimated Blood Loss 200 / 200 Urine Amount (Catheter) 450 / 450 350 / 350 Indwelling Urethral Catheter 450 / 450 350 / 350 Other: Date of Last Bowel Movement 11/13/17 11/13/17 11/14/17 # Bowel Movements 0 # Incontinent Bowel Movements 0 - Urinary Catheter Management Indwelling Urethral Catheter Cath placed during this visit: no Assessment and Plan - Assessment (1) Respiratory distress Code(s): R06.03 - Acute respiratory distress Status: Acute (2) Fracture, intertrochanteric, left femur Code(s): S72.142A - Displaced intertrochanteric fracture of left femur, initial encounter for closed fracture Status: Acute Plan: Patient came to the ED after a witnessed fall 11/13/17. X-ray of the hip showed intertrochanteric fracture on the left and osteopenia. Orthopedic surgery consulted, preop labs ordered and reviewed: mild anemia with H&H 11/34.3, coags within normal limits Consulted pulmonology/cardiology for surgery clearance. Vitamin D level 6 - will discuss with family regarding supplementation Continue Castellanos's traction prior to surgical managment Percocet/morphine for breakthrough pain scale NPO for surgery at this time (3) Fall Code(s): W19.XXXA - Unspecified fall, initial encounter Status: Acute Plan: Family reports that patient often gets lightheaded when standing up quickly which occurred today prior to the fall Denies any loss of consciousness, chest pain or shortness of breath different from baseline EKG on admission showed sinus rhythm with no T-wave inversions Continuous telemetry - no reported events No electrolyte abnormalities, mildly anemic with H&H of 11.0/34.3 UA collected 11/14, showing no evidence of infection. Troponin x 1 negative for evidence of cardiac ischemia Suspect orthostatic etiology of the fall, may need to consider further imaging pending the hospital course (4) CHF (congestive heart failure) Code(s): I50.9 - Heart failure, unspecified Status: Acute Plan: Patient with a known history of CHF. Followed by Dr. Weinstein per family ASCVD with coronary disease and history congestive heart failure by history Pre-hospital EF unknown Echo performed 11/14/17 showing EF 60-65%, severe pulmonary HTN with 76mm Hg pressure Chest x-ray on admission showed abnormal pleural-based thickening and calcification measuring up to 4.9 cm in the left hemithorax possibly associated with a prior left thoracotomy. Diminished size of the left lung possibly from partial prior resection. No signs of pleural effusion. Does not appear to be fluid overloaded on exam EKG on admission was normal Per sales service representative report, anticipate clearance for surgery based on clinical picture, risk vs. benefit profile of surgical repair of hip, however echo was pending at their initial evaluation. 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 Probable empyema surgery at age 20. Former smoker. Quit 1 year ago but previously smoked 3-4 packs per day 3-4 L nasal cannula at home, continued while inpatient Nebulizer treatments at home, family cannot confirm the exact medication Duonebs every 4-6 hours as needed for wheezing Pulmonology consulted as he will need surgical clearance. They are following. They recommended Symbicort 160 4.5 mcg 2 puffs daily. Repeat CXR ordered this morning 11/14 pending. Family requested that anesthesia team discuss case with them prior to surgery today, nurse aware and has called surgeon and anesthesiologist. (6) Borderline diabetes mellitus Code(s): R73.03 - Prediabetes Status: Acute Plan: Known history of borderline type 2 diabetes Takes metformin 500 mg p.o. daily Holding home medications for now. Random glucose on admission was 135 Sliding scale Novolog if needed (7) Nutrition, metabolism, and development symptoms Code(s): R63.8 - Other symptoms and signs concerning food and fluid intake Status: Acute Plan: NPO for now pre-operatively. Will resume diet post-operatively as tolerated Electrolytes within normal limits. Will replete as needed No IV fluids at this time SCDs for DVT prophylaxis until surgical plan is established. Pharmacologic anticoagulation indicated postoperatively (usually initiated 24 hr postoperatively) - Assessment and Plan Attending note: patient seen and examined with resident team. 2 d echo did reveal preserved left vent function and increase pulmonary artery pressure consistent with lung disease. Family has multiple concerns and patent's and daughters are in attendance. Patient is to go to OR for rt hip orif by orthopedic surgery. In discussion with daughter, Tenisha, reviewed that post op patient would most likely need snf rehab and she related that his baseline mental status is one that requires constant attendance as he has developed a dementia. Emphasized that after anesthesia, cn anticipate that confusion will temporarily worsen. Agree with orders as written by resident team. Follow closely post op. Karan Ramírez MD 11/14/17.
--- NOTE | 2017-11-15 09:08 | P.CONCC ---
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 [place] [facility] [place] sustaining a fall and L intertrochanteric femur fracture for which he underwent IM nail by Dr. Robertson on 11/14/17. His family states that last night he received morphine 1 mg IV for pain and they noted he was more lethargic and then SOB. He became hypoxic and [facility] was called and [place] [facility] 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 He has acute hypercapnic respiratory failure with hypoxia with ABG 7.29/PaCO2 of 64/PO2 of 91/bicarb of 30. He indicates he feels improved since the above therapies including Bipap 12/ 5 55%. Family at bedside and assisting with communication. Patient denies chest pain, cough. Afebrile. Complains of thirst. Review of Systems All other systems reviewed negative except as stated in HPI PMFSH - History History Provided By: Family Member - Medical History Medical History: Medical History (Last Updated 11/15/17 @ 09:37 by Nellie Schaffer MD) COPD (chronic obstructive pulmonary disease) Diabetes Kidney stone Pneumothorax - Surgical History Surgical History: Surgical History (Last Updated 11/15/17 @ 09:36 by Nellie Schaffer MD) H/O hernia repair S/P lobectomy of lung - Family History Family History: Family History (Last Updated 11/15/17 @ 09:37 by Nellie Schaffer MD) Other Unknown family medical history - Tobacco History Second Hand Smoke Exposure: No Tobacco Use In Past 30 Days: No Smoking Status: Former smoker Tobacco Type: Cigarettes Packs Per Day: 5 Years Smoked: 72 Smoking End Date: 2015 - Alcohol History How Often Do You Have a Drink Containing Alcohol: Never - Substance Use History Substance History: No History of Abuse - Travel History Recent Travel in the [facility] Within the Last 8 Weeks: No Recent Travel Out of the Country Within the Last 8 Weeks: No - Immunization History Tetanus Immunization: Unsure Hx Influenza Vaccine This Season: Yes Medications and Allergies Active Medications: Active Medications Acetaminophen (Tylenol) 650 mg PO Q6HR PRN PRN Reason: PAIN SCALE 1 TO 2 Al Hydroxide/Mg Hydroxide (Milk Of Magnhenrique Liq) 30 ml PO Q12H PRN PRN Reason: Mild Constipation Albuterol (Duoneb Neb (Prn)) 1 ampul NEB Q4HR NEB PRN PRN Reason: WHEEZING Last Admin: 11/15/17 04:21 Dose: 1 ampul Albuterol (Albuterol Neb (Prn)) 2.5 mg NEB Q2HR NEB PRN PRN Reason: SHORTNESS OF BREATH/WHEEZING Albuterol (Duoneb Neb (Za)) 1 ampul NEB Q4HR NEB ZA Last Admin: 11/15/17 07:47 Dose: 1 ampul Bisacodyl (Dulcolax Supp) 10 mg RECTAL DAILY PRN PRN Reason: SEVERE CONSITIPATION Chlorhexidine Gluconate (Chlorhexidine 2% Cloth) 3 pack TOPICAL CONSULTANT EDUCATION [facility] Stop: 11/16/17 21:19 Chlorhexidine Gluconate (Chlorhexidine 2% Cloth) 3 pack TOPICAL DAILY@0400 [facility] Stop: 11/21/17 03:59 Chlorhexidine Gluconate (Chlorhexidine 2% Cloth) 3 pack TOPICAL DAILY@0400 PRN PRN Reason: Extra cloth needed Stop: 11/21/17 03:59 Diphenhydramine HCl (Benadryl) 25 mg PO Q6H PRN PRN Reason: ITCHING Enoxaparin Sodium (Lovenox Inj) 40 mg SQ Q24H [facility] Folic Acid (Folic Acid) 1 mg PO DAILY [facility] Furosemide (Lasix) 40 mg PO DAILY [facility] Last Admin: 11/14/17 17:06 Dose: Not Given Sodium Chloride (Ns Inj) 1,000 mls @ 100 mls/hr IV.CONT .Q10H [facility] Last Admin: 11/15/17 01:15 Dose: Not Given Lactated Ringer's (Lr 1000 Ml Inj) 1,000 mls @ 30 mls/hr IV.SIG .Q24H [facility] Stop: 11/16/17 21:19 Last Admin: 11/15/17 01:15 Dose: Not Given Sodium Chloride (Ns Inj) 500 mls @ 30 mls/hr IV.SIG .Q10H [facility] Stop: 11/16/17 21:19 Cefazolin Sodium 2,000 mg/ (Sodium Chloride) 100 mls @ 200 mls/hr IV.SIG Q8H [facility] Stop: 11/15/17 12:29 Last Admin: 11/15/17 03:33 Dose: 200 mls/hr Lactated Ringer's (Lr 1000 Ml Inj) 1,000 mls @ 100 mls/hr IV.CONT .Q10H [facility] Last Admin: 11/15/17 01:16 Dose: Not Given Lactulose (Lactulose Liq) 30 ml PO DAILY PRN PRN Reason: SEVERE CONSITIPATION Methylprednisolone Sodium Succinate (Solumedrol Inj) 40 mg IV.PUSH Q12HR [facility] Stop: 11/16/17 23:59 Last Admin: 11/14/17 21:07 Dose: 40 mg Metoprolol Tartrate (Lopressor) 25 mg PO CONSULTANT EDUCATION [facility] Stop: 11/16/17 21:19 Morphine Sulfate (Morphine Inj) 2 mg IV.PUSH Q3H PRN PRN Reason: BREAKTHROUGH PAIN Last Admin: 11/15/17 03:32 Dose: 1 mg Multivitamins/Minerals (Theragran-M) 1 tab PO DAILY [facility] Naloxone HCl (Narcan Inj) 0.4 mg IV.PUSH UNSCH PRN PRN Reason: SEE LABEL COMMENTS Ondansetron HCl (Zofran Odt) 4 mg PO Q6H PRN PRN Reason: NAUSEA OR VOMITING Ondansetron HCl (Zofran Inj) 4 mg IV.PUSH Q6H PRN PRN Reason: NAUSEA OR VOMITING Oxycodone/Acetaminophen (Percocet 10/325 Mg) 1 tab PO Q6H PRN PRN Reason: PAIN SCALE 6 TO 10 Oxycodone/Acetaminophen (Percocet 5/325 Mg) 1 tab PO Q6H PRN PRN Reason: PAIN SCALE 3 TO 5 Last Admin: 11/14/17 08:08 Dose: 1 tab Pantoprazole Sodium (Protonix) 40 mg PO DAILY [facility] Potassium Chloride (Kcl) 10 meq PO DAILY [facility] Last Admin: 11/14/17 18:44 Dose: Not Given Povidone Iodine (Betadine 5% Antisepsis Kit) 1 applicatio EACH NARE CONSULTANT EDUCATION [facility] Stop: 11/16/17 21:19 Promethazine HCl (Phenergan) 25 mg PO Q6H PRN PRN Reason: NAUSEA OR VOMITING Promethazine HCl (Phenergan Supp) 25 mg RECTAL Q6H PRN PRN Reason: NAUSEA OR VOMITING Senna/Docusate Sodium (Flor-Colace) 1 tab PO BID [facility] Last Admin: 11/14/17 21:08 Dose: 1 tab Sennosides (Senokot) 17.2 mg PO Q12H PRN PRN Reason: Moderate Constipation Sodium Chloride (Ns Flush) 2 ml IV.FLUSH BID [facility] Last Admin: 11/14/17 21:08 Dose: 2 ml Sodium Chloride (Ns Flush) 2 ml IV.FLUSH PRN PRN PRN Reason: FLUSH AFTER USING IV ACCESS Temazepam (Restoril) 15 mg PO HS PRN PRN Reason: INSOMNIA Thiamine HCl (Vitamin B1) 100 mg PO DAILY [facility] Zolpidem Tartrate (Ambien) 5 mg PO HS PRN PRN Reason: INSOMNIA Allergies Allergy/AdvReac Type Severity Reaction Status Date / Time No Known Allergies Allergy Unverified 11/13/17 12:17 Home Medications Medication Instructions Recorded Confirmed Type furosemide [Lasix] mg PO 11/13/17 History metformin mg PO 11/13/17 History potassium chloride meq PO 11/13/17 History Physical Exam Vital signs: Vital Signs 11/14/17 14:32 11/14/17 14:45 11/14/17 15:00 Temperature 97.4 F L Pulse Rate 91 H 90 91 H Respiratory Rate 14 16 16 Blood Pressure 113/55 L 123/53 L 107/51 L Pulse Oximetry 91 L 93 L 93 L 11/14/17 15:15 11/14/17 15:37 11/14/17 16:00 Temperature 97.7 F Pulse Rate 92 H 92 H 99 H Respiratory Rate 16 18 20 Blood Pressure 114/57 L 131/56 L 118/52 L Pulse Oximetry 94 L 93 L 95 11/14/17 20:00 11/15/17 00:00 11/15/17 04:00 Temperature 97.5 F L 97.6 F 98 F Pulse Rate 109 H 108 H 124 H Respiratory Rate 17 17 26 H Blood Pressure 117/56 L 129/64 161/65 H Pulse Oximetry 95 95 92 L 11/15/17 04:10 11/15/17 04:22 11/15/17 04:23 Temperature Pulse Rate 122 H Respiratory Rate 36 H Blood Pressure Pulse Oximetry 92 L 92 L 11/15/17 06:10 11/15/17 07:47 Temperature Pulse Rate 112 H Respiratory Rate 24 Blood Pressure Pulse Oximetry 94 L Intake & Output 11/14/17 11/15/17 11/15/17 18:59 06:59 18:59 Intake Total 1800 / 1800 100 / 100 40 / 40 Output Total 650 / 650 350 / 350 Balance 1150 / 1150 100 / 100 -310 / -310 Weight 64 kg Intake: IV 1100 / 1100 100 / 100 NS Inj 1,000 ML @ 100 mls/hr IV 1000 / 1000 .CONT .Q10H [facility] Rx#:[id number] Ancef Inj 2,000 MG In NS Inj 80 100 / 100 100 / 100 ML @ 200 mls/hr IV.SIG Q8H [facility] Rx#:[id number] Oral 40 / 40 Anesthesia Amount 700 / 700 Output: Stool 0 / 0 Urine/Stool Mix 0 / 0 Estimated Blood Loss 200 / 200 Urine Amount (Catheter) 450 / 450 350 / 350 Indwelling Urethral Catheter 450 / 450 350 / 350 Other: Date of Last Bowel Movement 11/13/17 11/13/17 11/14/17 # Bowel Movements 0 # Incontinent Bowel Movements 0 Narrative: GENERAL: Elderly male who has BiPAP mask in place with tachypneic and labored breathing. SKIN: Warm and dry. HEAD: Atraumatic. Normocephalic. EYES: Pupils equal and round, 2 mm and react. No scleral icterus. No injection or drainage. ENT: BiPAP mask in place NECK: Trachea midline. No JVD. CARDIOVASCULAR: Tachycardic, sinus rhythm on monitor with rate in 120s. no murmurs appreciated.. RESPIRATORY: Tachypneic, labored breathing with rate in the high 20s. Diminished left base. Coarse rales bibasilar. GASTROINTESTINAL: Abdomen soft, non-tender, nondistended. Hepatic and splenic margins not palpable. : Bethea in place with dark yellow urine in bag MUSCULOSKELETAL: Extremities without clubbing, cyanosis. 1+ edema right ankle, SCDS in place. Dressing in place left hip, dressing intact. NEUROLOGICAL: Awake, follows commands with extremities. - Urinary Catheter Management Indwelling Urethral Catheter Cath placed during this visit: no Assessment and Plan - Assessment and Plan Plan: NEURO: Acute delirium, multifactorial but likely secondary to hypoxia and hypercapnia. Postoperative pain. Oxycodone prn pain. Fall MSK: L inter trochanteric femur fracture status post IM nail 11/[address] Robertson RESP: Acute hypoxemic and hypercapnic respiratory failure History of left lower lobectomy Pulmonary fibrosis Bronchiectasis COPD Former tobacco abuse Agree with initiation of Bipap. Discussed with family patient may require intubation if condition worsens. Patient initially improved on Bipap but then kept taking it off intermittently.. Transitioned to HFNC which he tolerated better. DuoNeb every 4 hours. Albuterol every 2 hours as needed Solumedrol 40 mg IV q12 hours CXR with chronic left pleural thickening, consolidation right base Obtain sputum, blood cultures and empiric antibiotics. Has had outpatient CT per Dr. Myers which demonstrates pulmonary fibrosis and bronchiectasis. BLE us negative for DVT. VQ scan with ventilation abnormalities>perfusion abnormalities in left lower lobe, pattern not typical of PE and likely related to lobectomy. I would not recommend therapeutic anticoagulation at this point. Avoid CTA based on worsening renal indices and Dr. Myers discussed with family who did not wish to assume risk of IV contrast. Pulmonology following, Dr. Myers. 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 Diuresis with Lasix 40 mg IV daily. GI: Ice chips/clear liquids until respiratory status improved. FEN/RENAL: Continue Bethea for close monitoring of urinary output. Monitor electrolytes and replace as indicated per ICU protocol. ID: Send sputum and blood cultures. Received dose of vancomycin. Will initiate cefepime. HEME: Monitor CBC ENDO: Diabetes with acute hyperglycemia while on steroids Hold metformin Monitor bedside glucose every 6 hours and initiate low-dose insulin sliding scale as indicated. PROPH: Lovenox 40 mg subcu daily for DVT prophylaxis. SCDs in place. Protonix for stress ulcer prophylaxis ACCESS: PIV Family states that they are not trusting of care providers because they feel that he was "perfectly fine [regarding respiratory status] " until he underwent surgery. They state that they believe that something happened during surgery that caused him to be unstable and that "nobody told us that he almost during surgery" and that now "everyone is trying to cover it up". I discussed with Dr. Robertson who states patient was stable intraoperatively. He indicates that risk of surgery was discussed at length preoperatively, as it was clear that he was high risk for surgery but would expect high mortality and morbidity without surgery. I have discussed with family that he had end stage lung disease and pulmonary hypertension that places him at high risk of complication from hospitalization for any cause. Patient is well known to Dr. Sg sun who reiterates how limited his pulmonary reserve. It is difficult to provide care for this unfortunate gentleman because multiple family members are refusing interventions on his behalf (such as obtaining labs, maintaining Bipap mask in place, providing insulin, obtaining PIV access) and at times making it physically difficult for staff to get close enough to patient to provide care. I attempted to discuss this with his because, as of now, I am not aware of advanced directives that would indicate an alternative decision maker. However, when she was brought to conference room with charge nurse to speak with her privately, she appeared angry and said she had every intention of including her children and the rest of her family in his care and said that "they have every right to tell [medical providers] how to treat [the patient] because "without them telling all of you what to do, he would have already 3 times in the hospital". Unfortunately, I was not able to follow through with this conversation because family asked the CT transporter to open the locked conference room and pull the patient's out of the room, stating that the patient was requesting her presence. Family is understandably stressed regarding patients decline in condition and are trying to be his advocate. However, for the patients well-being, staff is trying to establish appropriate boundaries to allow for consistent and timely medical interventions. Discussed with Dr. Marcelo Carrion. Patient is critically ill with acute hypercapneic and hypoxemic respiratory failure, severe pulmonary HTN that pose threat to life. He is at high risk of further deterioration including intubation and mechanical ventilation. Will remain in ICU. CCT 75 minutes exclusive of separately billable procedures
[2017-11-15] MEDS: MethylPREDNISolone Sod Succinate Inj 40 MG/ML Vial IV.PUSH SCH ×2 (09:29→21:24)
[2017-11-15] MEDS: Senna/Docusate Sodium 8.6/50 MG Tablet PO SCH ×2 (09:29→21:24)
[2017-11-15] MEDS: Potassium Chloride 10 MEQ ER Capsule PO SCH (09:30)
[2017-11-15] MEDS: Multivitamin/Minerals Therapeutic Tablet PO SCH (09:30)
[2017-11-15] MEDS: Folic Acid 1 MG Tablet PO SCH (09:30)
[2017-11-15] MEDS ORDERED: Dextrose 50% in Water 50 ML Vial IV.PUSH PRN (11:18)
[2017-11-15 11:51] LABS: ABG Base Excess 3.9 mmol/L (-2-2); ABG PCO2 64 mmHg (38-42); ABG PO2 91 mmHg (61-120)
[2017-11-15] MEDS: Enoxaparin Inj 40 MG/0.4 ML Syringe SQ SCH (12:39)
--- NOTE | 2017-11-15 13:27 | P.PNFP ---
Subjective Interval history: Attending note: Complex 82-year-old gentleman of [place] ancestry status post day [address] Robertson seen in the intensive care unit with nursing staff and and [id number] translating Iraqi/Greek. Clinical notes of patient's overnight course were reviewed including the respiratory distress which eventuated and patient being transferred to the intensive care unit. Discussion with Dr. Nellie Schaffer, coding analyst and review of all clinical issues. Currently patient is awake and alert, on BiPAP with adequate oxygenation who does respond when questioned in Iraqi to answers. Is agitated wanting the BiPAP removed. Does complain of a dry throat and family believes that he is thirsty and possibly hungry. Denies any acute pain currently. Results - Labs Result diagrams: 11/15/17 06:15 11/15/17 06:15 Abnormal lab results 11/14/17 11/15/17 11/15/17 Range/Units 21:30 05:02 06:15 WBC (4.0-11.0) th/mm3 RBC (4.50-5.90) mil/mm3 Hgb (13.0-17.0) gm/dL Hct (39.0-51.0) % Neut % (Auto) (16.0-70.0) % Lymph % (Auto) (9.0-44.0) % Neut # (Auto) (1.8-7.7) th/mm3 Lymph # (Auto) (1.0-4.8) th/mm3 [place] # (Auto) (0.0-0.9) th/mm3 O2 Saturation 89 L* (90-100) % ABG pH 7.25 L* (7.380-7.420) ABG pCO2 70 H* (38-42) mmHg ABG HCO3 30 H (22-26) mmol/L ABG O2 Content 9.8 L (12.0-20.0) Vol % ABG Base Excess 2.9 H (-2-2) mmol/L Hemoglobin 7.7 L (12.0-16.0) G/DL BUN 25 H (7-18) mg/dL Creatinine 1.31 H (0.60-1.30) mg/dL Estimated GFR 53 L (>89) mL/min POC Glucose (68-110) mg/dl Random Glucose 243 H D (74-106) mg/dL Lactic Acid (0.4-2.0) mmol/L Calcium 7.5 L D (8.5-10.1) mg/dL Total Creatine Kinase 338 H (39-308) U/L B-Natriuretic Peptide (0-100) pg/mL Urine Clarity Hazy H (Clear) Urine Occult Blood Small H (Negative) Urine Urobilinogen 2.0 H (Less than 2) mg/dL Ur Leukocyte Esterase Trace H (Negative) Urine WBC 16 H (0-5) /hpf Amorphous Sediment Rare H (None) /hpf Urine Mucus Few H (Occasional) /lpf 11/15/17 11/15/17 11/15/17 Range/Units 06:15 06:15 06:15 WBC 20.8 H (4.0-11.0) th/mm3 RBC 2.78 L (4.50-5.90) mil/mm3 Hgb 8.0 L D (13.0-17.0) gm/dL Hct 24.9 L (39.0-51.0) % Neut % (Auto) 90.6 H (16.0-70.0) % Lymph % (Auto) 3.1 L (9.0-44.0) % Neut # (Auto) 18.8 H (1.8-7.7) th/mm3 Lymph # (Auto) 0.6 L (1.0-4.8) th/mm3 W[place]er # (Auto) 1.3 H (0.0-0.9) th/mm3 O2 Saturation (90-100) % ABG pH (7.380-7.420) ABG pCO2 (38-42) mmHg ABG HCO3 (22-26) mmol/L ABG O2 Content (12.0-20.0) Vol % ABG Base Excess (-2-2) mmol/L Hemoglobin (12.0-16.0) G/DL BUN (7-18) mg/dL Creatinine (0.60-1.30) mg/dL Estimated GFR (>89) mL/min POC Glucose (68-110) mg/dl Random Glucose (74-106) mg/dL Lactic Acid 3.4 H (0.4-2.0) mmol/L Calcium (8.5-10.1) mg/dL Total Creatine Kinase (39-308) U/L B-Natriuretic Peptide 141 H (0-100) pg/mL Urine Clarity (Clear) Urine Occult Blood (Negative) Urine Urobilinogen (Less than 2) mg/dL Ur Leukocyte Esterase (Negative) Urine WBC (0-5) /hpf Amorphous Sediment (None) /hpf Urine Mucus (Occasional) /lpf 11/15/17 11/15/17 Range/Units 11:45 12:35 WBC (4.0-11.0) th/mm3 RBC (4.50-5.90) mil/mm3 Hgb (13.0-17.0) gm/dL Hct (39.0-51.0) % Neut % (Auto) (16.0-70.0) % Lymph % (Auto) (9.0-44.0) % Neut # (Auto) (1.8-7.7) th/mm3 Lymph # (Auto) (1.0-4.8) th/mm3 [place]er # (Auto) (0.0-0.9) th/mm3 O2 Saturation (90-100) % ABG pH 7.29 L* (7.380-7.420) ABG pCO2 64 H* (38-42) mmHg ABG HCO3 30 H (22-26) mmol/L ABG O2 Content 9.7 L (12.0-20.0) Vol % ABG Base Excess 3.9 H (-2-2) mmol/L Hemoglobin 7.1 L (12.0-16.0) G/DL BUN (7-18) mg/dL Creatinine (0.60-1.30) mg/dL Estimated GFR (>89) mL/min POC Glucose 226 H (68-110) mg/dl Random Glucose (74-106) mg/dL Lactic Acid (0.4-2.0) mmol/L Calcium (8.5-10.1) mg/dL Total Creatine Kinase (39-308) U/L B-Natriuretic Peptide (0-100) pg/mL Urine Clarity (Clear) Urine Occult Blood (Negative) Urine Urobilinogen (Less than 2) mg/dL Ur Leukocyte Esterase (Negative) Urine WBC (0-5) /hpf Amorphous Sediment (None) /hpf Urine Mucus (Occasional) /lpf Short CBC 11/15/17 Range/Units 06:15 WBC 20.8 H (4.0-11.0) th/mm3 Hgb 8.0 L D (13.0-17.0) gm/dL Hct 24.9 L (39.0-51.0) % Plt Count 162 (150-450) th/mm3 BMP 11/15/17 06:15 Sodium 141 Potassium 4.5 Chloride 105 Carbon Dioxide 28.0 D BUN 25 H Creatinine 1.31 H Calcium 7.5 L D Cardiac Enzymes 11/15/17 Range/Units 06:15 Total Creatine Kinase 338 H (39-308) U/L CK-MB (CK-2) 2.6 (0.5-3.6) ng/mL Troponin I 0.03 (0.02-0.05) ng/mL Urine 11/14/17 Range/Units 21:30 Urine Color Yellow (Yellw/Straw) Urine Clarity Hazy H (Clear) Urine pH 5.0 (5.0-8.5) Ur Specific [place] 1.027 (1.002-1.035) Urine Protein Negative (Neg-Trace) mg/dL Urine Glucose (UA) 50 (Negative) mg/dL - Imaging Impressions Hip X-Ray 11/14/17 00:00 CONCLUSION: 1. Left hip ORIF, as above. Chest X-Ray 11/15/17 00:00 CONCLUSION: Persistent increased density seen throughout the left chest. There is pleural thickening or fluid seen on the left side. The shift of heart and mediastinal structures is consistent with some component of atelectasis at the left lung. Mild pleural thickening or fluid seen on the right side with some increased density at the right base representing some consolidation or atelectasis. Physical Exam Vital signs: Vital Signs 11/14/17 14:32 11/14/17 14:45 11/14/17 15:00 Temperature 97.4 F L Pulse Rate 91 H 90 91 H Respiratory Rate 14 16 16 Blood Pressure 113/55 L 123/53 L 107/51 L Pulse Oximetry 91 L 93 L 93 L 11/14/17 15:15 11/14/17 15:37 11/14/17 16:00 Temperature 97.7 F Pulse Rate 92 H 92 H 99 H Respiratory Rate 16 18 20 Blood Pressure 114/57 L 131/56 L 118/52 L Pulse Oximetry 94 L 93 L 95 11/14/17 20:00 11/15/17 00:00 11/15/17 04:00 Temperature 97.5 F L 97.6 F 98 F Pulse Rate 109 H 108 H 124 H Respiratory Rate 17 17 26 H Blood Pressure 117/56 L 129/64 161/65 H Pulse Oximetry 95 95 92 L 11/15/17 04:10 11/15/17 04:22 11/15/17 04:23 Temperature Pulse Rate 122 H Respiratory Rate 36 H Blood Pressure Pulse Oximetry 92 L 92 L 11/15/17 06:10 11/15/17 07:47 11/15/17 08:00 Temperature Pulse Rate 112 H Respiratory Rate 24 Blood Pressure Pulse Oximetry 94 L 94 L 11/15/17 10:44 11/15/17 12:48 Temperature Pulse Rate 102 H Respiratory Rate 24 Blood Pressure Pulse Oximetry 95 96 Intake & Output 11/14/17 11/15/17 11/15/17 18:59 06:59 18:59 Intake Total 1800 / 1800 100 / 100 1040 / 1040 Output Total 650 / 650 350 / 350 Balance 1150 / 1150 100 / 100 690 / 690 Weight 64 kg Intake: IV 1100 / 1100 100 / 100 1000 / 1000 NS Inj 1,000 ML @ 100 mls/hr IV 1000 / 1000 1000 / 1000 .CONT .Q10H NOAH Rx#:[id number] Ancef Inj 2,000 MG In NS Inj 80 100 / 100 100 / 100 ML @ 200 mls/hr IV.SIG Q8H NOAH Rx#:[id number] Oral 40 / 40 Anesthesia Amount 700 / 700 Output: Stool 0 / 0 Urine/Stool Mix 0 / 0 Estimated Blood Loss 200 / 200 Urine Amount (Catheter) 450 / 450 350 / 350 Indwelling Urethral Catheter 450 / 450 350 / 350 Other: Date of Last Bowel Movement 11/13/17 11/13/17 11/14/17 # Bowel Movements 0 # Incontinent Bowel Movements 0 Narrative: Vital signs noted. Pulse 102/min and sinus rhythm. Respirations 24 and mildly labored. On BiPAP. Temperature 98. BP 161/65 General appearance: Older gentleman with BiPAP, appears verbally agitated and moving somewhat around with his upper extremities. and sister -in-law at bedside assisting with translation. HEENT: Nonlocalizing. BiPAP in place. Lungs: Right side has clear breath sounds superiorly, some scattered rhonchi. Diminished breath sounds at the right base. Left side has generally diminished breath sounds, occasional rhonchi. Abdomen: Soft, does not appear to have any tenderness, no masses or organomegaly appreciated. Extremities 2+ 1+ radial pulses. Feet are warm and dry, pulses are palpable dorsalis pedis. CBC notable for white blood cell count of 20,800 with a left shift. Hemoglobin 8.0. Platelets 162. Chemistries sodium 141 potassium 4.5 anion gap 8 BUN 25 creatinine 1.31 point-of -care glucoses ranging 176-226. Lactic acid 3.4. Calcium 7.5 not corrected. BNP 141. EKG unchanged from admission with narrow complex and sinus rhythm. Portable chest x-ray early this morning reveal stability of the left pleural thickening and/or fluid on the left side, shift of the heart and mediastinal structures consistent with some atelectasis in the left lung, mild pleural thickening on the right with question of early density in her atelectasis right base. - Urinary Catheter Management Indwelling Urethral Catheter Cath placed during this visit: no Assessment and Plan - Assessment (1) Respiratory distress Code(s): R06.03 - Acute respiratory distress Status: Acute (2) Fracture, intertrochanteric, left femur Code(s): S72.142A - Displaced intertrochanteric fracture of left femur, initial encounter for closed fracture Status: Acute Plan: Patient came to the ED after a witnessed fall 11/13/17. X-ray of the hip showed intertrochanteric fracture on the left and osteopenia. Orthopedic surgery consulted, preop labs ordered and reviewed: mild anemia with H&H 11/34.3, coags within normal limits Consulted pulmonology/cardiology for surgery clearance. Vitamin D level 6 - will discuss with family regarding supplementation Continue Castellanos's traction prior to surgical managment Percocet/morphine for breakthrough pain scale NPO for surgery at this time (3) Fall Code(s): W19.XXXA - Unspecified fall, initial encounter Status: Acute Plan: Family reports that patient often gets lightheaded when standing up quickly which occurred today prior to the fall Denies any loss of consciousness, chest pain or shortness of breath different from baseline EKG on admission showed sinus rhythm with no T-wave inversions Continuous telemetry - no reported events No electrolyte abnormalities, mildly anemic with H&H of 11.0/34.3 UA collected 11/14, showing no evidence of infection. Troponin x 1 negative for evidence of cardiac ischemia Suspect orthostatic etiology of the fall, may need to consider further imaging pending the hospital course (4) CHF (congestive heart failure) Code(s): I50.9 - Heart failure, unspecified Status: Acute Plan: Patient with a known history of CHF. Followed by Dr. Weinstein per family ASCVD with coronary disease and history congestive heart failure by history Pre-hospital EF unknown Echo performed 11/14/17 showing EF 60-65%, severe pulmonary HTN with 76mm Hg pressure Chest x-ray on admission showed abnormal pleural-based thickening and calcification measuring up to 4.9 cm in the left hemithorax possibly associated with a prior left thoracotomy. Diminished size of the left lung possibly from partial prior resection. No signs of pleural effusion. Does not appear to be fluid overloaded on exam EKG on admission was normal Per job placement officer report, anticipate clearance for surgery based on clinical picture, risk vs. benefit profile of surgical repair of hip, however echo was pending at their initial evaluation. 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 Probable empyema surgery at age 20. Former smoker. Quit 1 year ago but previously smoked 3-4 packs per day 3-4 L nasal cannula at home, continued while inpatient Nebulizer treatments at home, family cannot confirm the exact medication Duonebs every 4-6 hours as needed for wheezing Pulmonology consulted as he will need surgical clearance. They are following. They recommended Symbicort 160 4.5 mcg 2 puffs daily. Repeat CXR ordered this morning 11/14 pending. Family requested that anesthesia team discuss case with them prior to surgery today, nurse aware and has called surgeon and anesthesiologist. (6) Borderline diabetes mellitus Code(s): R73.03 - Prediabetes Status: Acute Plan: Known history of borderline type 2 diabetes Takes metformin 500 mg p.o. daily Holding home medications for now. Random glucose on admission was 135 Sliding scale Novolog if needed (7) Nutrition, metabolism, and development symptoms Code(s): R63.8 - Other symptoms and signs concerning food and fluid intake Status: Acute Plan: NPO for now pre-operatively. Will resume diet post-operatively as tolerated Electrolytes within normal limits. Will replete as needed No IV fluids at this time SCDs for DVT prophylaxis until surgical plan is established. Pharmacologic anticoagulation indicated postoperatively (usually initiated 24 hr postoperatively) - Assessment and Plan Attending note: patient seen and examined with resident team. 2 d echo did reveal preserved left vent function and increase pulmonary artery pressure consistent with lung disease. Family has multiple concerns and patent's and daughters are in attendance. Patient is to go to OR for rt hip orif by orthopedic surgery. In discussion with daughterTenisha, reviewed that post op patient would most likely need snf rehab and she related that his baseline mental status is one that requires constant attendance as he has developed a dementia. Emphasized that after anesthesia, cn anticipate that confusion will temporarily worsen. Agree with orders as written by resident team. Follow closely post op. Karan Ramírez MD 11/14/17. Attending note: 11/15/2017. 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 Physician and resident physician counseled with the family including , [id number] who has medical background, and daughters in an effort to answer their questions, appreciate his past medical history, explained to them the present clinical findings and plan going forward. At the present time a CTA of the chest has been recommended, family is deciding whether they are comfortable. In counseling the family they express different emotions including anger, and frustration. Will continue on the current clinical course , ensure that all medical staff physicians, nurses and support team are communicating. Karan Ramírez MD 11/15/2017.
--- NOTE | 2017-11-15 14:17 | P.PN ---
Subjective Interval history: Ws transferred to [facility] [place] for respiratory distress. Was on BiPAP but now on High flow O2. O2 sat 93 on high flow. Physical Exam Vital signs: Vital Signs 11/14/17 14:32 11/14/17 14:45 11/14/17 15:00 Temperature 97.4 F L Pulse Rate 91 H 90 91 H Respiratory Rate 14 16 16 Blood Pressure 113/55 L 123/53 L 107/51 L Pulse Oximetry 91 L 93 L 93 L 11/14/17 15:15 11/14/17 15:37 11/14/17 16:00 Temperature 97.7 F Pulse Rate 92 H 92 H 99 H Respiratory Rate 16 18 20 Blood Pressure 114/57 L 131/56 L 118/52 L Pulse Oximetry 94 L 93 L 95 11/14/17 20:00 11/15/17 00:00 11/15/17 04:00 Temperature 97.5 F L 97.6 F 98 F Pulse Rate 109 H 108 H 124 H Respiratory Rate 17 17 26 H Blood Pressure 117/56 L 129/64 161/65 H Pulse Oximetry 95 95 92 L 11/15/17 04:10 11/15/17 04:22 11/15/17 04:23 Temperature Pulse Rate 122 H Respiratory Rate 36 H Blood Pressure Pulse Oximetry 92 L 92 L 11/15/17 06:10 11/15/17 07:47 11/15/17 08:00 Temperature Pulse Rate 112 H Respiratory Rate 24 Blood Pressure Pulse Oximetry 94 L 94 L 11/15/17 10:44 11/15/17 12:48 Temperature Pulse Rate 102 H Respiratory Rate 24 Blood Pressure Pulse Oximetry 95 96 Intake & Output 11/14/17 11/15/17 11/15/17 18:59 06:59 18:59 Intake Total 1800 / 1800 100 / 100 1040 / 1040 Output Total 650 / 650 350 / 350 Balance 1150 / 1150 100 / 100 690 / 690 Weight 64 kg Intake: IV 1100 / 1100 100 / 100 1000 / 1000 NS Inj 1,000 ML @ 100 mls/hr IV 1000 / 1000 1000 / 1000 .CONT .Q10H NOAH Rx#:[id number] Ancef Inj 2,000 MG In NS Inj 80 100 / 100 100 / 100 ML @ 200 mls/hr IV.SIG Q8H NOAH Rx#:[id number] Oral 40 / 40 Anesthesia Amount 700 / 700 Output: Stool 0 / 0 Urine/Stool Mix 0 / 0 Estimated Blood Loss 200 / 200 Urine Amount (Catheter) 450 / 450 350 / 350 Indwelling Urethral Catheter 450 / 450 350 / 350 Other: Date of Last Bowel Movement 11/13/17 11/13/17 11/14/17 # Bowel Movements 0 # Incontinent Bowel Movements 0 Narrative: Vital signs noted. Pulse 102/min and sinus rhythm. Respirations 24 and mildly labored. On BiPAP. Temperature 98. BP 161/65 General appearance:Elderly W/M awake and responds to commands. On N/C O2 HEENT: Throat injected. Neck:Mild JVD. Lungs: Bilateral wheeze and Basal crackles Diminished breath sounds at the right base. Left side has generally diminished breath sounds. Abdomen: Soft, does not appear to have any tenderness, no masses or organomegaly appreciated. Extremities 1+ radial pulses. pulses are palpable dorsalis pedis. Neuro : No focal deficit. - Urinary Catheter Management Indwelling Urethral Catheter Cath placed during this visit: no Results - Labs CBC & Chem 7: 11/15/17 06:15 11/15/17 06:15 Laboratory Results - last 24 hr 11/14/17 11/14/17 11/14/17 21:30 21:30 21:30 WBC RBC Hgb Hct MCV MCH MCHC RDW Plt Count MPV Neut % (Auto) Lymph % (Auto) Clinch % (Auto) Eos % (Auto) Baso % (Auto) Neut # (Auto) Lymph # (Auto) Clinch # (Auto) Eos # (Auto) Baso # (Auto) WBC Differential Differential Comment Puncture Site Patient Temperature O2 Saturation ABG pH ABG pCO2 ABG pO2 ABG HCO3 ABG O2 Content ABG Base Excess ABG Methemoglobin Krishna Test Hemoglobin Carboxyhemoglobin O2 Delivery Device Liter Flow Inspired O2 Critical Value Sodium Potassium Chloride Carbon Dioxide Anion Gap BUN Creatinine Estimated GFR POC Glucose Random Glucose Lactic Acid Calcium Total Creatine Kinase CK-MB (CK-2) CK-MB (CK-2) % Troponin I B-Natriuretic Peptide Urine Color Yellow Urine Clarity Hazy H Urine pH 5.0 Ur Specific [place] 1.027 Urine Protein Negative Urine Glucose (UA) 50 Urine Ketones Trace Urine Occult Blood Small H Urine Nitrate Negative Urine Bilirubin Negative Urine Urobilinogen 2.0 H Ur Leukocyte Esterase Trace H Urine RBC 3 Urine WBC 16 H Ur Renal Epithelial Cell <1 Amorphous Sediment Rare H Hyaline Casts 1 Granular Casts 3 Urine Mucus Few H Micro UA Comment Cath Urine Osmolality 622 Ur Random Creatinine 155 Ur Random Sodium 9 Blood Type Blood Type Recheck Antibody Screen 11/15/17 11/15/17 11/15/17 05:02 06:15 06:15 WBC RBC Hgb Hct MCV MCH MCHC RDW Plt Count MPV Neut % (Auto) Lymph % (Auto) Clinch % (Auto) Eos % (Auto) Baso % (Auto) Neut # (Auto) Lymph # (Auto) Clinch # (Auto) Eos # (Auto) Baso # (Auto) WBC Differential Differential Comment Puncture Site Right radial Patient Temperature 98.6 O2 Saturation 89 L* ABG pH 7.25 L* ABG pCO2 70 H* ABG pO2 70 ABG HCO3 30 H ABG O2 Content 9.8 L ABG Base Excess 2.9 H ABG Methemoglobin 1.0 Krishna Test 1 Hemoglobin 7.7 L Carboxyhemoglobin 2.1 O2 Delivery Device Simple mask Liter Flow 10.00 Inspired O2 Critical Value Yes Sodium 141 Potassium 4.5 Chloride 105 Carbon Dioxide 28.0 D Anion Gap 8 BUN 25 H Creatinine 1.31 H Estimated GFR 53 L POC Glucose Random Glucose 243 H D Lactic Acid Calcium 7.5 L D Total Creatine Kinase 338 H CK-MB (CK-2) 2.6 CK-MB (CK-2) % 0.8 Troponin I 0.03 B-Natriuretic Peptide Urine Color Urine Clarity Urine pH Ur Specific [place] Urine Protein Urine Glucose (UA) Urine Ketones Urine Occult Blood Urine Nitrate Urine Bilirubin Urine Urobilinogen Ur Leukocyte Esterase Urine RBC Urine WBC Ur Renal Epithelial Cell Amorphous Sediment Hyaline Casts Granular Casts Urine Mucus Micro UA Comment Urine Osmolality Ur Random Creatinine Ur Random Sodium Blood Type A Positive Blood Type Recheck Required Antibody Screen Negative 11/15/17 11/15/17 11/15/17 06:15 06:15 06:15 WBC 20.8 H RBC 2.78 L Hgb 8.0 L D Hct 24.9 L MCV 89.4 MCH 28.7 MCHC 32.1 RDW 16.2 Plt Count 162 MPV 8.3 Neut % (Auto) 90.6 H Lymph % (Auto) 3.1 L Clinch % (Auto) 6.1 Eos % (Auto) 0.0 Baso % (Auto) 0.2 Neut # (Auto) 18.8 H Lymph # (Auto) 0.6 L Clinch # (Auto) 1.3 H Eos # (Auto) 0.0 Baso # (Auto) 0.0 WBC Differential . Differential Comment Auto diff final Puncture Site Patient Temperature O2 Saturation ABG pH ABG pCO2 ABG pO2 ABG HCO3 ABG O2 Content ABG Base Excess ABG Methemoglobin Krishna Test Hemoglobin Carboxyhemoglobin O2 Delivery Device Liter Flow Inspired O2 Critical Value Sodium Potassium Chloride Carbon Dioxide Anion Gap BUN Creatinine Estimated GFR POC Glucose Random Glucose Lactic Acid 3.4 H Calcium Total Creatine Kinase CK-MB (CK-2) CK-MB (CK-2) % Troponin I B-Natriuretic Peptide 141 H Urine Color Urine Clarity Urine pH Ur Specific [place] Urine Protein Urine Glucose (UA) Urine Ketones Urine Occult Blood Urine Nitrate Urine Bilirubin Urine Urobilinogen Ur Leukocyte Esterase Urine RBC Urine WBC Ur Renal Epithelial Cell Amorphous Sediment Hyaline Casts Granular Casts Urine Mucus Micro UA Comment Urine Osmolality Ur Random Creatinine Ur Random Sodium Blood Type Blood Type Recheck Antibody Screen 11/15/17 11/15/17 11:45 12:35 WBC RBC Hgb Hct MCV MCH MCHC RDW Plt Count MPV Neut % (Auto) Lymph % (Auto) Clinch % (Auto) Eos % (Auto) Baso % (Auto) Neut # (Auto) Lymph # (Auto) Clinch # (Auto) Eos # (Auto) Baso # (Auto) WBC Differential Differential Comment Puncture Site Right radial Patient Temperature 98.6 O2 Saturation 95 ABG pH 7.29 L* ABG pCO2 64 H* ABG pO2 91 ABG HCO3 30 H ABG O2 Content 9.7 L ABG Base Excess 3.9 H ABG Methemoglobin 0.5 Krishna Test Present Hemoglobin 7.1 L Carboxyhemoglobin 1.6 O2 Delivery Device Bipap 12ipap/5epap Liter Flow Inspired O2 55 Critical Value Yes Sodium Potassium Chloride Carbon Dioxide Anion Gap BUN Creatinine Estimated GFR POC Glucose 226 H Random Glucose Lactic Acid Calcium Total Creatine Kinase CK-MB (CK-2) CK-MB (CK-2) % Troponin I B-Natriuretic Peptide Urine Color Urine Clarity Urine pH Ur Specific [place] Urine Protein Urine Glucose (UA) Urine Ketones Urine Occult Blood Urine Nitrate Urine Bilirubin Urine Urobilinogen Ur Leukocyte Esterase Urine RBC Urine WBC Ur Renal Epithelial Cell Amorphous Sediment Hyaline Casts Granular Casts Urine Mucus Micro UA Comment Urine Osmolality Ur Random Creatinine Ur Random Sodium Blood Type Blood Type Recheck Antibody Screen - Imaging Impressions Chest X-Ray 11/15/17 00:00 CONCLUSION: Persistent increased density seen throughout the left chest. There is pleural thickening or fluid seen on the left side. The shift of heart and mediastinal structures is consistent with some component of atelectasis at the left lung. Mild pleural thickening or fluid seen on the right side with some increased density at the right base representing some consolidation or atelectasis. Assessment and Plan - Assessment (1) CHF (congestive heart failure) Code(s): I50.9 - Heart failure, unspecified Status: Acute (2) Emphysema of lung Code(s): J43.9 - Emphysema, unspecified Status: Acute (3) Borderline diabetes mellitus Code(s): R73.03 - Prediabetes Status: Acute (4) Fracture, intertrochanteric, left femur Code(s): S72.142A - Displaced intertrochanteric fracture of left femur, initial encounter for closed fracture Status: Acute (5) Nutrition, metabolism, and development symptoms Code(s): R63.8 - Other symptoms and signs concerning food and fluid intake Status: Acute (6) Fall Code(s): W19.XXXA - Unspecified fall, initial encounter Status: Acute (7) Cor pulmonale (chronic) Code(s): I27.81 - Cor pulmonale (chronic) Status: Acute - Plan 1. Will, leave on O2 High flow. 2. Nebs qid duoneb. 3. Add BIPAP 12/5 cm FIO2 30 % at HS and PRN 4. Duoneb nebs qid. 5. CBC BMP V/Q lung scan and Venous Doppler of leg veins 6. IS at bedside q2h. 7. PT evaluation in am 8. Symbicort 160/4.5 mcg , 2 puffs BID 9. Continue Cefipime IV 10. Lovenox 40 mg S/Q daily
--- NOTE | 2017-11-15 15:14 | US ---
EXAM DATE: 11/15/2017 3:10 PM EDT AGE/SEX: 82 years / Male INDICATIONS: Shortness of breath. CLINICAL DATA: This is the patient's initial encounter. Patient reports that signs and symptoms have been present for 1 day and indicates a pain score of 0/10. MEDICAL/SURGICAL HISTORY: Chronic obstructive pulmonary disease. Diabetes. Renal calculi. Pn eumothorax. Left hip fracture. . Hernia repair. Lobectomy of lung. Left hip surgery. COMPARISON: No prior exams available for comparison. TECHNIQUE: Venous ultrasound of both lower extremities was performed from the inguinal ligament to t he proximal calf. Real-time, color Doppler and spectral tracing, compression and augmentation techni ques were used. FINDINGS: Right Leg: Normal compression of the deep venous system from the inguinal region to the proximal paty f. No echogenic clot is seen. Normal response of the venous system to augmentation and respiration. Left Leg: Normal compression of the deep venous system from the inguinal region to the proximal calf . No echogenic clot is seen. Normal response of the venous system to augmentation and respiration. Other: None. CONCLUSION: 1. Technically limited examination due to diminutive vessels particularly in the left calf. 2. Otherwise, no sonographic evidence for lower extremity DVT. Electronically signed by: Kyaw Gallo MD 11/15/2017 3:13 PM EDT
--- NOTE | 2017-11-15 15:24 | OTSOAPIP ---
PATIENT UNDERWENT CHANGE IN STATUS. IS NOW IN INTENSIVE MEDICAL CARE UNIT DUE TO RESPIRATORY DISTRESS S/P SURGICAL STABILIZATION FOR LEFT INTERTROCHANTERIC HIP FRACTURE. WILL REQUIRE NEW WRITTEN ORDERS FOR OCCUPATIONAL THERAPY WHEN PATIENT IS MEDICALLY STABLE. Therapist: Olga Tavera OTR/L Signature on file
--- NOTE | 2017-11-15 15:30 | ECG ---
Date Performed: 11/15/2017 Time Performed: 05:29:38 PTAGE: 82 years EKG: Sinus tachycardia. Extensive ST-T changes are nonspecific Borderline ECG Compared to PREVIOUS TRACING , heart rate has increased from 95 to 126, ST-T changes not significantl y changed. PREVIOUS TRACIN11/13/2017 12.15 DOCTOR: Dustin Nazario Interpretating Date/Time 11/15/2017 15:28:33
--- NOTE | 2017-11-15 17:12 | NM ---
EXAM DATE: 11/15/2017 4:55 PM EDT AGE/SEX: 82 years / Male INDICATIONS: Hypoxia after left hip surgery. CLINICAL DATA: This is the patient's initial encounter. Patient reports that signs and symptoms have been present for 1 day and indicates a pain score of 0/10. MEDICAL/SURGICAL HISTORY: Chronic obstructive pulmonary disease. Emphysema. Diabetes mellitus type II. Lobectomy. Inguinal hernia repair. Left Hip. COMPARISON: C, CHEST 1V SINGLE AP, 11/15/2017. . DOSE: 1.7 mCi Tc99m DTPA aerosol 8.8 mCi Tc99m MAA IV TECHNIQUE: Following five minutes of tidal breathing of DTPA aerosol, planar images of the lungs wer e performed in eight projections. The patient was then injected with MAA, and eight-view perfusion s can was performed. FINDINGS: There is no significant ventilation to the left lung with minimal perfusion primarily in the superior segment left lower lobe. There is associated extensive pleural thickening and diffuse airspace disea se throughout the left lung on the chest radiograph with minimal aerated lung in the left mid hemitho rax. There is heterogeneous ventilation to the right lung with more homogeneous perfusion consistent with air trapping. CONCLUSION: 1. Indeterminate probability VQ scan based on strict PIOPED criteria. However, ventilation is signif icantly more affected than perfusion. This pattern is uncommon with significant pulmonary embolism. Electronically signed by: Kyaw Gallo MD 11/15/2017 5:10 PM EDT
[2017-11-15] MEDS: Insulin NovoLOG Aspart Correctional Sugar Inj SQ SCH ×2 (18:31→21:30)
[2017-11-16] MEDS ORDERED: Chlorhexidine Gluconate 2% 1 Pack (2 Cloths) TOPICAL PRN (04:00)
[2017-11-16 05:02] LABS: Mean Corpuscular HGB Conc 33.1 % (32.0-36.0); Mean Corpuscular Hemoglobin 29.2 pg (27.0-34.0); Mean Platelet Volume 8.3 fL (7.0-11.0); Platelet Count 93 th/mm3 (150-450); Red Blood Count 2.12 mil/mm3 (4.50-5.90); Red Cell Distribution Width 15.7 % (11.6-17.2)
[2017-11-16 05:11] LABS: Calcium 7.6 mg/dL (8.5-10.1); Carbon Dioxide 31.9 meq/L (21.0-32.0); Hematocrit 18.7 % (39.0-51.0); Hemoglobin 6.2 gm/dL (13.0-17.0); Potassium 4.7 meq/L (3.5-5.1)
[2017-11-16] MEDS ORDERED: Sodium Chlor 0.9% Inj 250 ML IV.SIG SCH (06:00)
[2017-11-16] MEDS: Chlorhexidine Gluconate 2% 1 Pack (2 Cloths) TOPICAL SCH (06:40)
[2017-11-16] MEDS: Senna/Docusate Sodium 8.6/50 MG Tablet PO SCH ×2 (09:00→21:31)
[2017-11-16] MEDS: Folic Acid 1 MG Tablet PO SCH (09:00)
[2017-11-16] MEDS ORDERED: Famotidine PF Inj 20 MG/2 ML Vial IV.PUSH SCH (09:00)
[2017-11-16] MEDS: Multivitamin/Minerals Therapeutic Tablet PO SCH (09:01)
[2017-11-16] MEDS: Potassium Chloride 10 MEQ ER Capsule PO SCH (09:01)
[2017-11-16] MEDS: MethylPREDNISolone Sod Succinate Inj 40 MG/ML Vial IV.PUSH SCH ×2 (09:01→21:31)
[2017-11-16] MEDS: Insulin NovoLOG Aspart Correctional Sugar Inj SQ SCH ×3 (09:13→21:30)
[2017-11-16 10:16] LABS: Hematocrit 16.6 % (39.0-51.0); Hemoglobin 5.5 gm/dL (13.0-17.0)
--- NOTE | 2017-11-16 10:33 | P.PNOP ---
Subjective Interval history: pt awake on high flow O2 nasal cannula not responding to questions sedate daughter and at bedside pt not in acute distress, lying in bed Physical Exam Vital signs: Vital Signs 11/15/17 10:44 11/15/17 12:00 11/15/17 12:48 Temperature 97.9 F Pulse Rate 112 H 102 H Respiratory Rate 26 H 24 Blood Pressure 123/57 L Pulse Oximetry 95 94 L 96 11/15/17 15:24 11/15/17 16:00 11/15/17 16:58 Temperature 98.5 F Pulse Rate 106 H 110 H Respiratory Rate 22 30 H Blood Pressure 142/61 H Pulse Oximetry 94 L 93 L 11/15/17 16:59 11/15/17 19:55 11/15/17 20:00 Temperature 98.7 F Pulse Rate 106 H 116 H Respiratory Rate 20 32 H Blood Pressure 136/60 Pulse Oximetry 99 97 116 H 11/15/17 22:30 11/15/17 23:15 11/16/17 00:00 Temperature 98.7 F Pulse Rate 106 H 104 H Respiratory Rate 24 22 Blood Pressure 141/63 H Pulse Oximetry 93 L 97 11/16/17 03:54 11/16/17 04:00 11/16/17 06:14 Temperature 98.7 F Pulse Rate 89 94 H 87 Respiratory Rate 18 20 Blood Pressure 150/67 H Pulse Oximetry 98 11/16/17 07:37 11/16/17 08:00 Temperature Pulse Rate 85 Respiratory Rate 22 Blood Pressure Pulse Oximetry 100 98 Intake & Output 11/15/17 11/16/17 11/16/17 18:59 06:59 18:59 Intake Total 2040 / 2040 200 / 200 550 / 550 Output Total 350 / 350 450 / 450 Balance 1690 / 1690 200 / 200 100 / 100 Weight 72.5 kg Intake: IV 1999 / 2000 200 / 200 NS Inj 1,000 ML @ 100 mls/hr IV 1000 / 1000 .CONT .Q10H NOAH Rx#:[id number] Maxipime Inj 2,000 MG In NS Inj 200 / 200 100 ML @ 200 mls/hr IV.SIG Q12H NOAH Rx#:[id number] LR 1000 mL Inj 1,000 ML @ 30 1000 / 1000 mls/hr IV.SIG .Q24H NOAH Rx#: [id number] Oral 40 / 40 550 / 550 Output: Stool 0 / 0 Urine/Stool Mix 0 / 0 0 / 0 Urine Amount (Catheter) 350 / 350 450 / 450 Indwelling Urethral Catheter 350 / 350 450 / 450 Other: Date of Last Bowel Movement 11/14/17 11/14/17 # Bowel Movements 0 0 # Incontinent Bowel Movements 0 0 - Routine Extremities Exam Comments: left hip dressings clean and dry no drainage thigh with mild swelling, compartments soft mild left knee swelling noted no asymmetric calf swelling - Urinary Catheter Management Indwelling Urethral Catheter Cath placed during this visit: no Results - Labs CBC & Chem 7: 11/16/17 08:56 11/16/17 04:43 Laboratory Results - last 24 hr 11/15/17 11/15/17 11/15/17 06:15 11:45 12:35 WBC RBC Hgb Hct MCV MCH MCHC RDW Plt Count MPV Puncture Site Right radial Patient Temperature 98.6 O2 Saturation 95 ABG pH 7.29 L* ABG pCO2 64 H* ABG pO2 91 ABG HCO3 30 H ABG O2 Content 9.7 L ABG Base Excess 3.9 H ABG Methemoglobin 0.5 Krishna Test Present Hemoglobin 7.1 L Carboxyhemoglobin 1.6 O2 Delivery Device Bipap 12ipap/5epap Inspired O2 55 Critical Value Yes Sodium Potassium Chloride Carbon Dioxide Anion Gap BUN Creatinine Estimated GFR POC Glucose 226 H Random Glucose Lactic Acid Calcium B-Natriuretic Peptide 141 H Nasal Screen MRSA (PCR) MTS Gel Crossmatch 11/15/17 11/15/17 11/15/17 12:45 18:17 21:16 WBC RBC Hgb Hct MCV MCH MCHC RDW Plt Count MPV Puncture Site Patient Temperature O2 Saturation ABG pH ABG pCO2 ABG pO2 ABG HCO3 ABG O2 Content ABG Base Excess ABG Methemoglobin Krishna Test Hemoglobin Carboxyhemoglobin O2 Delivery Device Inspired O2 Critical Value Sodium Potassium Chloride Carbon Dioxide Anion Gap BUN Creatinine Estimated GFR POC Glucose 188 H 209 H Random Glucose Lactic Acid Calcium B-Natriuretic Peptide Nasal Screen MRSA (PCR) Not detected MTS Gel Crossmatch 11/16/17 11/16/17 11/16/17 04:43 04:43 04:43 WBC 8.0 D RBC 2.12 L Hgb 6.2 L* Hct 18.7 L* MCV 88.0 MCH 29.2 MCHC 33.1 RDW 15.7 Plt Count 93 L D MPV 8.3 Puncture Site Patient Temperature O2 Saturation ABG pH ABG pCO2 ABG pO2 ABG HCO3 ABG O2 Content ABG Base Excess ABG Methemoglobin Krishna Test Hemoglobin Carboxyhemoglobin O2 Delivery Device Inspired O2 Critical Value Sodium 140 Potassium 4.7 Chloride 104 Carbon Dioxide 31.9 Anion Gap 4 L BUN 32 H Creatinine 1.07 Estimated GFR 66 L POC Glucose Random Glucose 186 H Lactic Acid 0.7 Calcium 7.6 L B-Natriuretic Peptide Nasal Screen MRSA (PCR) MTS Gel Crossmatch 11/16/17 11/16/17 11/16/17 05:34 06:32 08:46 WBC RBC Hgb Hct MCV MCH MCHC RDW Plt Count MPV Puncture Site Patient Temperature O2 Saturation ABG pH ABG pCO2 ABG pO2 ABG HCO3 ABG O2 Content ABG Base Excess ABG Methemoglobin Krishna Test Hemoglobin Carboxyhemoglobin O2 Delivery Device Inspired O2 Critical Value Sodium Potassium Chloride Carbon Dioxide Anion Gap BUN Creatinine Estimated GFR POC Glucose 205 H 197 H Random Glucose Lactic Acid Calcium B-Natriuretic Peptide Nasal Screen MRSA (PCR) MTS Gel Crossmatch See Detail 11/16/17 08:56 WBC RBC Hgb 5.5 L* Hct 16.6 L* MCV MCH MCHC RDW Plt Count MPV Puncture Site Patient Temperature O2 Saturation ABG pH ABG pCO2 ABG pO2 ABG HCO3 ABG O2 Content ABG Base Excess ABG Methemoglobin Krishna Test Hemoglobin Carboxyhemoglobin O2 Delivery Device Inspired O2 Critical Value Sodium Potassium Chloride Carbon Dioxide Anion Gap BUN Creatinine Estimated GFR POC Glucose Random Glucose Lactic Acid Calcium B-Natriuretic Peptide Nasal Screen MRSA (PCR) MTS Gel Crossmatch - Imaging Impressions Venous Doppler Study 11/15/17 14:06 CONCLUSION: 1. Technically limited examination due to diminutive vessels particularly in the left calf. 2. Otherwise, no sonographic evidence for lower extremity DVT. Pulmonary Perfusion Imaging 11/15/17 14:07 CONCLUSION: 1. Indeterminate probability VQ scan based on strict PIOPED criteria. However, ventilation is significantly more affected than perfusion. This pattern is uncommon with significant pulmonary embolism. Assessment and Plan - Ortho Post Op Day # 1 - Assessment and Plan pod 2 sp left troch nail pt in the medical ICU due to respiratory distress, needing support multiple medical comoridites with copd, cad plan transfuse prbc per fur comber xray left knee due to knee swelling I have discussed findings and current plan with daughter and at bedside, all questions were answered lovenox and scd for dvt prophylaxis physical therapy 50-% pwb LLE will need snf when medicaly cleared for discharge
--- NOTE | 2017-11-16 11:24 | XR ---
EXAM DATE: 11/16/2017 11:00 AM EDT AGE/SEX: 82 years / Male INDICATIONS: Left knee pain; post fall. CLINICAL DATA: This is the patient's initial encounter. Patient reports that signs and symptoms have been present for 2 days and indicates a pain score of 10/10. MEDICAL/SURGICAL HISTORY: None. . ORIF left femur. COMPARISON: No prior exams available for comparison. FINDINGS: AP and lateral views of the left knee demonstrate no fracture or dislocation. Mineralization is decre ased. There is a partially visualized antegrade intramedullary trinh within the femur with a single dis ed interlocking screw. Hardware demonstrates no acute abnormality. Small joint effusion is present. There is subcutaneous edema in the soft tissues. No concerning radiopaque foreign body is seen. CONCLUSION: 1. Under mineralized bones without a fracture identified. 2. Small joint effusion. Electronically signed by: Arvin Castillo MD 11/16/2017 11:22 AM EDT
[2017-11-16] MEDS: Enoxaparin Inj 40 MG/0.4 ML Syringe SQ SCH (12:35)
--- NOTE | 2017-11-16 13:08 | P.PNFP ---
Subjective Interval history: Attending note: Patient seen with resident team, nursing staff, and sister- in-law at bedside. Discussed with Dr. Brendan Vega, foreign food cook specialty and Dr. Arvin frost, helicopter utility aircrewman. Events over the last 24 hours reviewed. Patient status post 2 units of packed cells. When asked by and [id number] translating if he had any pain, he denies any pain, there apparently no acute symptoms. and [id number] do have many questions for physician and nursing team with regards to different events including the decreased hemoglobin and subsequent transfusion, patient's intermodal customer service recovery likelihood. Results - Labs Result diagrams: 11/16/17 08:56 11/16/17 04:43 Abnormal lab results 11/15/17 11/15/17 11/16/17 Range/Units 18:17 21:16 04:43 RBC 2.12 L (4.50-5.90) mil/mm3 Hgb 6.2 L* (13.0-17.0) gm/dL Hct 18.7 L* (39.0-51.0) % Plt Count 93 L D (150-450) th/mm3 Anion Gap (5-15) meq/L BUN (7-18) mg/dL Estimated GFR (>89) mL/min POC Glucose 188 H 209 H (68-110) mg/dl Random Glucose (74-106) mg/dL Calcium (8.5-10.1) mg/dL MTS Gel Crossmatch 11/16/17 11/16/17 11/16/17 Range/Units 04:43 05:34 06:32 RBC (4.50-5.90) mil/mm3 Hgb (13.0-17.0) gm/dL Hct (39.0-51.0) % Plt Count (150-450) th/mm3 Anion Gap 4 L (5-15) meq/L BUN 32 H (7-18) mg/dL Estimated GFR 66 L (>89) mL/min POC Glucose 205 H (68-110) mg/dl Random Glucose 186 H (74-106) mg/dL Calcium 7.6 L (8.5-10.1) mg/dL MTS Gel Crossmatch See Detail 11/16/17 11/16/17 11/16/17 Range/Units 08:46 08:56 12:33 RBC (4.50-5.90) mil/mm3 Hgb 5.5 L* (13.0-17.0) gm/dL Hct 16.6 L* (39.0-51.0) % Plt Count (150-450) th/mm3 Anion Gap (5-15) meq/L BUN (7-18) mg/dL Estimated GFR (>89) mL/min POC Glucose 197 H 223 H (68-110) mg/dl Random Glucose (74-106) mg/dL Calcium (8.5-10.1) mg/dL MTS Gel Crossmatch Short CBC 11/16/17 11/16/17 Range/Units 04:43 08:56 WBC 8.0 D (4.0-11.0) th/mm3 Hgb 6.2 L* 5.5 L* (13.0-17.0) gm/dL Hct 18.7 L* 16.6 L* (39.0-51.0) % Plt Count 93 L D (150-450) th/mm3 BMP 11/16/17 04:43 Sodium 140 Potassium 4.7 Chloride 104 Carbon Dioxide 31.9 BUN 32 H Creatinine 1.07 Calcium 7.6 L - Imaging Impressions Venous Doppler Study 11/15/17 14:06 CONCLUSION: 1. Technically limited examination due to diminutive vessels particularly in the left calf. 2. Otherwise, no sonographic evidence for lower extremity DVT. Pulmonary Perfusion Imaging 11/15/17 14:07 CONCLUSION: 1. Indeterminate probability VQ scan based on strict PIOPED criteria. However, ventilation is significantly more affected than perfusion. This pattern is uncommon with significant pulmonary embolism. Knee X-Ray 11/16/17 00:00 CONCLUSION: 1. Under mineralized bones without a fracture identified. 2. Small joint effusion. Physical Exam Vital signs: Vital Signs 11/15/17 15:24 11/15/17 16:00 11/15/17 16:58 Temperature 98.5 F Pulse Rate 106 H 110 H Respiratory Rate 22 30 H Blood Pressure 142/61 H Pulse Oximetry 94 L 93 L 11/15/17 16:59 11/15/17 19:55 11/15/17 20:00 Temperature 98.7 F Pulse Rate 106 H 116 H Respiratory Rate 20 32 H Blood Pressure 136/60 Pulse Oximetry 99 97 116 H 11/15/17 22:30 11/15/17 23:15 11/16/17 00:00 Temperature 98.7 F Pulse Rate 106 H 104 H Respiratory Rate 24 22 Blood Pressure 141/63 H Pulse Oximetry 93 L 97 11/16/17 03:54 11/16/17 04:00 11/16/17 06:14 Temperature 98.7 F Pulse Rate 89 94 H 87 Respiratory Rate 18 20 Blood Pressure 150/67 H Pulse Oximetry 98 11/16/17 07:37 11/16/17 08:00 11/16/17 10:33 Temperature Pulse Rate 85 95 H Respiratory Rate 22 Blood Pressure Pulse Oximetry 100 98 11/16/17 10:45 11/16/17 12:48 Temperature 97.5 F L Pulse Rate 92 H 92 H Respiratory Rate 26 H 20 Blood Pressure 132/60 Pulse Oximetry 100 Intake & Output 11/15/17 11/16/17 11/16/17 18:59 06:59 18:59 Intake Total 2040 / 2040 200 / 200 550 / 550 Output Total 350 / 350 450 / 450 Balance 1690 / 1690 200 / 200 100 / 100 Weight 72.5 kg Intake: IV 2000 / 2000 200 / 200 NS Inj 1,000 ML @ 100 mls/hr IV 1000 / 1000 .CONT .Q10H NOAH Rx#:[id number] Maxipime Inj 2,000 MG In NS Inj 200 / 200 100 ML @ 200 mls/hr IV.SIG Q12H NOAH Rx#:[id number] LR 1000 mL Inj 1,000 ML @ 30 1000 / 1000 mls/hr IV.SIG .Q24H NOAH Rx#: [id number] Oral 40 / 40 550 / 550 Intake (Blood Product) Amt 0 / 0 Rbc As-5 Leukoreduced Unit 0 / 0 [id number] Output: Stool 0 / 0 Urine/Stool Mix 0 / 0 0 / 0 Urine Amount (Catheter) 350 / 350 450 / 450 Indwelling Urethral Catheter 350 / 350 450 / 450 Other: Date of Last Bowel Movement 11/14/17 11/14/17 # Bowel Movements 0 0 # Incontinent Bowel Movements 0 0 Vital signs noted. Pulse 95 and appears to be sinus rhythm. Blood pressure 132 /60. Respirations 20-26 on occasion O2 saturation 100% requiring high flow nasal cannula. General appearance: Older gentleman of [place] ancestry who does communicate with his family in Indonesian. Nasal cannula in place, sequential hose in place. HEENT: Nonlocalizing. Lungs: Right side has fair aeration superiorly, diminished breath sounds at the base. Left has diminished breath sounds in general, some better aeration superiorly. Cardiac: S1-S2, no S3 or significant murmurs. Abdomen: Active bowel sounds, soft to palpate, does not appear to have facial grimacing on palpation in the 4 quadrants, no organomegaly or masses evident. Wound: Inspection of the area does reveal some edema distally in the leg on the left although there is no significant masses to suggest a palpable hematoma. Extremities: Hands and feet are warm and dry. There is trace edema in the feet. - Additional findings Additional findings: Labs reviewed: Hemoglobin 6.2 and 5.5 earlier today, is in the process of receiving 2 units of packed red blood cells. White blood cell count 8000 with a platelet count of 93,000. Sodium 140 potassium 4.7 creatinine 1.07 [id number] glucoses ranging in the upper 100s-2 lower 200s VQ scan low probability of pulmonary embolus - Urinary Catheter Management Indwelling Urethral Catheter Cath placed during this visit: no Assessment and Plan - Assessment (1) Respiratory distress Code(s): R06.03 - Acute respiratory distress Status: Acute (2) Fracture, intertrochanteric, left femur Code(s): S72.142A - Displaced intertrochanteric fracture of left femur, initial encounter for closed fracture Status: Acute Plan: Patient came to the ED after a witnessed fall 11/13/17. X-ray of the hip showed intertrochanteric fracture on the left and osteopenia. Orthopedic surgery consulted, preop labs ordered and reviewed: mild anemia with H&H 11/34.3, coags within normal limits Consulted pulmonology/cardiology for surgery clearance. Vitamin D level 6 - will discuss with family regarding supplementation Continue Castellanos's traction prior to surgical managment Percocet/morphine for breakthrough pain scale NPO for surgery at this time (3) Fall Code(s): W19.XXXA - Unspecified fall, initial encounter Status: Acute Plan: Family reports that patient often gets lightheaded when standing up quickly which occurred today prior to the fall Denies any loss of consciousness, chest pain or shortness of breath different from baseline EKG on admission showed sinus rhythm with no T-wave inversions Continuous telemetry - no reported events No electrolyte abnormalities, mildly anemic with H&H of 11.0/34.3 UA collected 11/14, showing no evidence of infection. Troponin x 1 negative for evidence of cardiac ischemia Suspect orthostatic etiology of the fall, may need to consider further imaging pending the hospital course (4) CHF (congestive heart failure) Code(s): I50.9 - Heart failure, unspecified Status: Acute Plan: Patient with a known history of CHF. Followed by Dr. Weinstein per family ASCVD with coronary disease and history congestive heart failure by history Pre-hospital EF unknown Echo performed 11/14/17 showing EF 60-65%, severe pulmonary HTN with 76mm Hg pressure Chest x-ray on admission showed abnormal pleural-based thickening and calcification measuring up to 4.9 cm in the left hemithorax possibly associated with a prior left thoracotomy. Diminished size of the left lung possibly from partial prior resection. No signs of pleural effusion. Does not appear to be fluid overloaded on exam EKG on admission was normal Per circus hand report, anticipate clearance for surgery based on clinical picture, risk vs. benefit profile of surgical repair of hip, however echo was pending at their initial evaluation. 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 Probable empyema surgery at age 20. Former smoker. Quit 1 year ago but previously smoked 3-4 packs per day 3-4 L nasal cannula at home, continued while inpatient Nebulizer treatments at home, family cannot confirm the exact medication Duonebs every 4-6 hours as needed for wheezing Pulmonology consulted as he will need surgical clearance. They are following. They recommended Symbicort 160 4.5 mcg 2 puffs daily. Repeat CXR ordered this morning 11/14 pending. Family requested that anesthesia team discuss case with them prior to surgery today, nurse aware and has called surgeon and anesthesiologist. (6) Borderline diabetes mellitus Code(s): R73.03 - Prediabetes Status: Acute Plan: Known history of borderline type 2 diabetes Takes metformin 500 mg p.o. daily Holding home medications for now. Random glucose on admission was 135 Sliding scale Novolog if needed (7) Nutrition, metabolism, and development symptoms Code(s): R63.8 - Other symptoms and signs concerning food and fluid intake Status: Acute Plan: NPO for now pre-operatively. Will resume diet post-operatively as tolerated Electrolytes within normal limits. Will replete as needed No IV fluids at this time SCDs for DVT prophylaxis until surgical plan is established. Pharmacologic anticoagulation indicated postoperatively (usually initiated 24 hr postoperatively) - Assessment and Plan Attending note: patient seen and examined with resident team. 2 d echo did reveal preserved left vent function and increase pulmonary artery pressure consistent with lung disease. Family has multiple concerns and patent's and daughters are in attendance. Patient is to go to OR for rt hip orif by orthopedic surgery. In discussion with daughter, Tenisha, reviewed that post op patient would most likely need snf rehab and she related that his baseline mental status is one that requires constant attendance as he has developed a dementia. Emphasized that after anesthesia, cn anticipate that confusion will temporarily worsen. Agree with orders as written by resident team. Follow closely post op. Karan Ramírez MD 11/14/17. Attending note: 11/15/2017. 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 Physician and resident physician counseled with the family including , [id number] who has medical background, and daughters in an effort to answer their questions, appreciate his past medical history, explained to them the present clinical findings and plan going forward. At the present time a CTA of the chest has been recommended, family is deciding whether they are comfortable. In counseling the family they express different emotions including anger, and frustration. Will continue on the current clinical course , ensure that all medical staff physicians, nurses and support team are communicating. Karan Ramírez MD 11/15/2017. Attending note assessment 11/16/2017: Very complex patient, status post day 2 left ORIF with intramedullary pinning, severely compromised lungs prior to entry into the hospital secondary to fibrotic scarring and COPD reported to be a smoker up until hospitalization with a dementia described by the family ( difficult to tell to what stage) whose oxygen levels of been reasonably stabilized today on nasal cannula oxygenation. Because of his age, comorbidities his postop course will definitely be a lengthy process, statistically he is at risk for complications that could be life-threatening. Family has many frustrations, expresses anger, and their questions were answered to the best of the team's abilities. Medical team will work with Dr. Vega, the foreign food cook specialty and the nursing staff closely. Karan Ramírez MD 2017.
--- NOTE | 2017-11-16 18:22 | P.PN ---
Subjective Interval history: had received packed red cells X2 for Hgb <7G. He is alert and is SOB at rest. Family is here . Physical Exam Vital signs: Vital Signs 11/15/17 19:55 11/15/17 20:00 11/15/17 22:30 Temperature 98.7 F Pulse Rate 106 H 116 H Respiratory Rate 20 32 H Blood Pressure 136/60 Pulse Oximetry 97 116 H 93 L 11/15/17 23:15 11/16/17 00:00 11/16/17 03:54 Temperature 98.7 F Pulse Rate 106 H 104 H 89 Respiratory Rate 24 22 18 Blood Pressure 141/63 H Pulse Oximetry 97 11/16/17 04:00 11/16/17 06:14 11/16/17 07:37 Temperature 98.7 F Pulse Rate 94 H 87 85 Respiratory Rate 20 22 Blood Pressure 150/67 H Pulse Oximetry 98 100 11/16/17 08:00 11/16/17 08:14 11/16/17 10:14 Temperature 98.0 F Pulse Rate 88 88 92 H Respiratory Rate 17 Blood Pressure 138/61 Pulse Oximetry 99 11/16/17 10:33 11/16/17 10:45 11/16/17 12:00 Temperature 97.5 F L 98.1 F Pulse Rate 95 H 92 H 99 H Respiratory Rate 26 H 26 H Blood Pressure 132/60 165/72 H Pulse Oximetry 100 100 11/16/17 12:14 11/16/17 12:48 11/16/17 13:04 Temperature 97.5 F L Pulse Rate 99 H 92 H 104 H Respiratory Rate 20 30 H Blood Pressure 166/72 H Pulse Oximetry 98 11/16/17 13:20 11/16/17 14:00 11/16/17 15:32 Temperature 98.1 F Pulse Rate 103 H 69 91 H Respiratory Rate 28 H 18 Blood Pressure 166/72 H Pulse Oximetry 98 95 11/16/17 16:00 Temperature 97.9 F Pulse Rate 93 H Respiratory Rate 26 H Blood Pressure 149/61 H Pulse Oximetry 94 L Intake & Output 11/15/17 11/16/17 11/16/17 18:59 06:59 18:59 Intake Total 2040 / 2040 200 / 200 950 / 950 Output Total 350 / 350 450 / 450 Balance 1690 / 1690 200 / 200 500 / 500 Weight 72.5 kg Intake: IV 1999 / 1999 200 / 200 NS Inj 1,000 ML @ 100 mls/hr IV 1000 / 1000 .CONT .Q10H [facility] Rx#:[id number] Maxipime Inj 2,000 MG In NS Inj 200 / 200 100 ML @ 200 mls/hr IV.SIG Q12H [facility] Rx#:[id number] LR 1000 mL Inj 1,000 ML @ 30 1000 / 1000 mls/hr IV.SIG .Q24H [facility] Rx#: [id number] Oral 40 / 40 550 / 550 Intake (Blood Product) Amt 400 / 400 Rbc As-3 Leukoreduced Unit 0 / 0 [id number] Rbc As-5 Leukoreduced Unit 400 / 400 [id number] Output: Stool 0 / 0 Urine/Stool Mix 0 / 0 0 / 0 Urine Amount (Catheter) 350 / 350 450 / 450 Indwelling Urethral Catheter 350 / 350 450 / 450 Other: Date of Last Bowel Movement 11/14/17 11/14/17 # Bowel Movements 0 0 # Incontinent Bowel Movements 0 0 Narrative: GENERAL: Elderly male.pale. SKIN: Warm and dry. HEAD: Atraumatic. Normocephalic. EYES: Pupils equal and round, 2 mm and react. No scleral icterus. No injection or drainage. ENT:Nasal mucosa is edematous. NECK: Trachea midline. No JVD. CARDIOVASCULAR: Tachycardic, sinus rhythm on monitor with rate in 120s. no murmurs appreciated.. RESPIRATORY: Has labored breathing Diminished left base. Coarse basal crackles GASTROINTESTINAL: Abdomen soft, non-tender, nondistended. Hepatic and splenic margins not palpable. MUSCULOSKELETAL: Extremities without clubbing, cyanosis. 1+ edema right ankle, SCDS in place. Dressing in place left hip, dressing intact. NEUROLOGICAL: Awake, follows commands with extremities. - Urinary Catheter Management Indwelling Urethral Catheter Cath placed during this visit: no Results - Labs CBC & Chem 7: 11/16/17 08:56 11/16/17 04:43 Laboratory Results - last 24 hr 11/15/17 11/15/17 11/16/17 18:17 21:16 04:43 WBC RBC Hgb Hct MCV MCH MCHC RDW Plt Count MPV Sodium Potassium Chloride Carbon Dioxide Anion Gap BUN Creatinine Estimated GFR POC Glucose 188 H 209 H Random Glucose Lactic Acid 0.7 Calcium MTS Gel Crossmatch 11/16/17 11/16/17 11/16/17 04:43 04:43 05:34 WBC 8.0 D RBC 2.12 L Hgb 6.2 L* Hct 18.7 L* MCV 88.0 MCH 29.2 MCHC 33.1 RDW 15.7 Plt Count 93 L D MPV 8.3 Sodium 140 Potassium 4.7 Chloride 104 Carbon Dioxide 31.9 Anion Gap 4 L BUN 32 H Creatinine 1.07 Estimated GFR 66 L POC Glucose Random Glucose 186 H Lactic Acid Calcium 7.6 L MTS Gel Crossmatch See Detail 11/16/17 11/16/17 11/16/17 06:32 08:46 08:56 WBC RBC Hgb 5.5 L* Hct 16.6 L* MCV MCH MCHC RDW Plt Count MPV Sodium Potassium Chloride Carbon Dioxide Anion Gap BUN Creatinine Estimated GFR POC Glucose 205 H 197 H Random Glucose Lactic Acid Calcium MTS Gel Crossmatch 11/16/17 11/16/17 12:33 17:52 WBC RBC Hgb Hct MCV MCH MCHC RDW Plt Count MPV Sodium Potassium Chloride Carbon Dioxide Anion Gap BUN Creatinine Estimated GFR POC Glucose 223 H 226 H Random Glucose Lactic Acid Calcium MTS Gel Crossmatch - Imaging Impressions Knee X-Ray 11/16/17 00:00 CONCLUSION: 1. Under mineralized bones without a fracture identified. 2. Small joint effusion. Assessment and Plan - Assessment (1) CHF (congestive heart failure) Code(s): I50.9 - Heart failure, unspecified Status: Acute (2) Emphysema of lung Code(s): J43.9 - Emphysema, unspecified Status: Acute (3) Borderline diabetes mellitus Code(s): R73.03 - Prediabetes Status: Acute (4) Fracture, intertrochanteric, left femur Code(s): S72.142A - Displaced intertrochanteric fracture of left femur, initial encounter for closed fracture Status: Acute (5) Nutrition, metabolism, and development symptoms Code(s): R63.8 - Other symptoms and signs concerning food and fluid intake Status: Acute (6) Fall Code(s): W19.XXXA - Unspecified fall, initial encounter Status: Acute (7) Cor pulmonale (chronic) Code(s): I27.81 - Cor pulmonale (chronic) Status: Acute - Plan 1. Will, leave on O2 High flow and wean to N/C 5 L 2. Nebs qid duoneb. 3. BIPAP 12/5 cm FIO2 30 % at HS and PRN 4. Duoneb nebs qid. 5. Transfuse 1 U Red cells 6. CBC,BMP CXR in am 7. PT evaluation in am 8. Symbicort 160/4.5 mcg , 2 puffs BID 9. Continue Cefipime IV 10. D/C Lovenox
[2017-11-16 19:21] LABS: Hematocrit 30.2 % (39.0-51.0); Hemoglobin 10.3 gm/dL (13.0-17.0)
--- NOTE | 2017-11-16 19:28 | P.PNCC ---
Subjective Subjective Remarks/Hospital Course: subjective: 11/16: long discussion with family on multiple occasions today: some improvements in subjective dyspnea, but still high fio2 requirements. hgb dropped to 5.5 this AM, receiving 2 units prbc: most likely dilutional from pre- operative losses due to fracture. no melena or other signs of active bleeding. 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 Objective Vital Signs / I&O: Vital Signs 11/15/17 19:55 11/15/17 20:00 11/15/17 22:30 Temperature 37.1 C Pulse Rate 106 H 116 H Respiratory Rate 20 32 H Blood Pressure 136/60 Pulse Oximetry 97 116 H 93 L 11/15/17 23:15 11/16/17 00:00 11/16/17 03:54 Temperature 37.1 C Pulse Rate 106 H 104 H 89 Respiratory Rate 24 22 18 Blood Pressure 141/63 H Pulse Oximetry 97 11/16/17 04:00 11/16/17 06:14 11/16/17 07:37 Temperature 37.1 C Pulse Rate 94 H 87 85 Respiratory Rate 20 22 Blood Pressure 150/67 H Pulse Oximetry 98 100 11/16/17 08:00 11/16/17 08:14 11/16/17 10:14 Temperature 36.7 C Pulse Rate 88 88 92 H Respiratory Rate 17 Blood Pressure 138/61 Pulse Oximetry 99 11/16/17 10:33 11/16/17 10:45 11/16/17 12:00 Temperature 36.4 C L 36.7 C Pulse Rate 95 H 92 H 99 H Respiratory Rate 26 H 26 H Blood Pressure 132/60 165/72 H Pulse Oximetry 100 100 11/16/17 12:14 11/16/17 12:48 11/16/17 13:04 Temperature 36.4 C L Pulse Rate 99 H 92 H 104 H Respiratory Rate 20 30 H Blood Pressure 166/72 H Pulse Oximetry 98 11/16/17 13:20 11/16/17 14:00 11/16/17 15:32 Temperature 36.7 C Pulse Rate 103 H 69 91 H Respiratory Rate 28 H 18 Blood Pressure 166/72 H Pulse Oximetry 98 95 11/16/17 16:00 11/16/17 18:00 11/16/17 19:22 Temperature 36.6 C Pulse Rate 93 H 90 97 H Respiratory Rate 26 H 28 H Blood Pressure 149/61 H Pulse Oximetry 94 L 97 Intake & Output 11/16/17 11/16/17 11/17/17 06:59 18:59 06:59 Intake Total 200 / 200 1050 / 1050 600 / 600 Output Total 450 / 450 1900 / 1900 Balance 200 / 200 600 / 600 -1300 / -1300 Weight 72.5 kg Intake: IV 200 / 200 100 / 100 Maxipime Inj 2,000 MG In NS Inj 200 / 200 100 / 100 100 ML @ 200 mls/hr IV.SIG Q12H [facility] Rx#:[id number] Oral 550 / 550 600 / 600 Intake (Blood Product) Amt 400 / 400 Rbc As-3 Leukoreduced Unit 0 / 0 [id number] Rbc As-5 Leukoreduced Unit 400 / 400 [id number] Output: Urine/Stool Mix 0 / 0 Urine Amount (Catheter) 450 / 450 1900 / 1900 Indwelling Urethral Catheter 450 / 450 1900 / 1900 Other: Date of Last Bowel Movement 11/14/17 # Bowel Movements 0 # Incontinent Bowel Movements 0 Result Diagrams: 11/16/17 18:50 11/16/17 04:43 Objective Remarks: gen: frail eldery male, lying in bed, some respiratory distress, although appears improved from prior documented exams. heent: nc. at. perrl. mmm. neck: no jvd. trachea midline. chest: mildly tachypneic. coarse BS throughout. high flow NC on 60% fio2. 35 LPM. cv: normal rate, regular rhythm. sinus. abd: soft, nontender, nondistended. no guarding. extr: no edema. distal pulses 2+. trochanteric incision c/d/i. no hematoma. neuro: RASS 0. follows commands. no focal deficits. 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 remains high risk for further decompensation. I have had several discussions with family where I reiterate how ill he is and how if he were to decompensate requiring mechanical ventilation and life-support, I do not think he will successfully separate from mechanical support. However, they urge for aggressive measures and FULL CODE code status. highly complex. NEURO: Acute delirium, multifactorial but likely secondary to hypoxia and hypercapnia. - some mild improvements. Postoperative pain. Oxycodone prn pain. Fall MSK: L inter trochanteric femur fracture status post IM nail 11/[address] Robertson RESP: Acute hypoxemic and hypercapnic respiratory failure- persistent History of left lower lobectomy end-stage Pulmonary fibrosis Bronchiectasis end-stage COPD Former tobacco abuse continuous 24h home oxygen dependence Agree with high flow NC. family understands he may require intubation, and they wish to pursue full aggressive measures. DuoNeb every 4 hours. Albuterol every 2 hours as needed Solumedrol 40 mg IV q12 hours CXR with chronic left pleural thickening, consolidation right base f/u cultures. continue abx. Has had outpatient CT per Dr. Myers which demonstrates pulmonary fibrosis and bronchiectasis. BLE us negative for DVT. VQ scan with ventilation abnormalities>perfusion abnormalities in left lower lobe, pattern not typical of PE and likely related to lobectomy. I would not recommend therapeutic anticoagulation at this point. Avoid CTA based on worsening renal indices and Dr. Myers discussed with family who did not wish to assume risk of IV contrast. Pulmonology following, Dr. Myers. 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 Diuresis with Lasix 40 mg IV daily. GI: Ice chips/clear liquids until respiratory status improved. FEN/RENAL: Continue Bethea for close monitoring of urinary output. Monitor electrolytes and replace as indicated per ICU protocol. ID: Send sputum and blood cultures. Received dose of vancomycin. Will initiate cefepime. HEME: Anemia secondary to acute blood loss 2 units prbc this AM recheck cbc trend cbc most likely secondary to pre-op bleeding from fracture and now dilutional. unlikely to have ongoing active bleeding. will monitor. ENDO: Diabetes with acute hyperglycemia while on steroids Hold metformin Monitor bedside glucose every 6 hours and initiate low-dose insulin sliding scale as indicated. PROPH: Lovenox 40 mg subcu daily for DVT prophylaxis. SCDs in place. Protonix for stress ulcer prophylaxis. discussed at length with family the risks and benefits of continuing vs. holding lovenox. no active bleeding. high risk for DVT formation, and acute PE would be a non-survivable event for this patient. will continue Lovenox. family understands and agrees to proceed with this plan. ACCESS: PIV Patient is critically ill with acute hypercapneic and hypoxemic respiratory failure, severe pulmonary HTN that pose threat to life. He is at high risk of further deterioration including intubation and mechanical ventilation. Will remain in ICU.
[2017-11-16] MEDS: oxyCODONE/Acetaminophen 10/325 Tablet PO PRN (21:32)
[2017-11-16] MEDS ORDERED: Potassium Chlor 40 mEq Premix 40 MEQ/100 ML PIGGYBACK IV.SIG PRN ×2 (21:57)
[2017-11-16] MEDS ORDERED: Sodium Phosphate Inj 30 MMOL in Sodium Chlor 0.9% Inj 250 ML IV.SIG PRN (21:57)
[2017-11-16] MEDS ORDERED: Potassium Chlor 20 mEq Premix 20 MEQ/100 ML PIGGYBACK IV.SIG PRN ×2 (21:57)
[2017-11-16] MEDS ORDERED: Magnesium Sulfate Inj 4 GM in Sodium Chlor 0.9% Inj 92 ML IV.SIG PRN (21:57)
[2017-11-16] MEDS ORDERED: Potassium Phosphate 500 MG Soluble Tablet PO PRN ×2 (21:57)
[2017-11-16] MEDS ORDERED: Potassium Chloride 25 MEQ Effervescent Tablet PO PRN (21:57)
[2017-11-16] MEDS ORDERED: Potassium Phosphate Inj 30 MMOL in Sodium Chlor 0.9% Inj 250 ML IV.SIG PRN (21:57)
[2017-11-16] MEDS ORDERED: Magnesium Oxide 400 MG Tablet PO PRN (21:57)
[2017-11-16] MEDS ORDERED: Magnesium Sulfate Inj 2 GM in Sodium Chlor 0.9% Inj 96 ML IV.SIG PRN (21:57)
[2017-11-16] MEDS ORDERED: Zolpidem Tartrate 5 MG Tablet PO SCH (23:45)
[2017-11-17 05:44] LABS: Hematocrit 29.3 % (39.0-51.0); Hemoglobin 9.9 gm/dL (13.0-17.0); Mean Corpuscular HGB Conc 33.8 % (32.0-36.0); Mean Corpuscular Hemoglobin 30.5 pg (27.0-34.0); Mean Corpuscular Volume 90.3 fL (80.0-100.0); Mean Platelet Volume 8.4 fL (7.0-11.0); Platelet Count 113 th/mm3 (150-450); Red Blood Count 3.24 mil/mm3 (4.50-5.90); Red Cell Distribution Width 15.3 % (11.6-17.2); White Blood Count 9.1 th/mm3 (4.0-11.0)
--- NOTE | 2017-11-17 05:44 | XR ---
EXAM DATE: 11/17/2017 5:04 AM EDT AGE/SEX: 82 years / Male INDICATIONS: Shortness of breath. CLINICAL DATA: This is the patient's subsequent encounter. Patient reports that signs and symptoms h ave been present for 4 - 6 days and indicates a pain score of Nonresponsive. MEDICAL/SURGICAL HISTORY: Non-responsive. Non-responsive. COMPARISON: [facility] [place] 1V SINGLE AP, 11/15/2017. . FINDINGS: A single AP view of the chest demonstrates worsening bilateral pulmonary infiltrates. A moderate-size d loculated left effusion is stable. Tiny right effusion is stable. Heart is normal in size. CONCLUSION: Worsening bilateral pulmonary infiltrates. Stable effusions. Electronically signed by: Darin Vega MD 11/17/2017 5:42 AM EDT
[2017-11-17 06:02] LABS: Calcium 7.8 mg/dL (8.5-10.1); Carbon Dioxide 34.9 meq/L (21.0-32.0); Magnesium 2.1 mg/dL (1.5-2.5); Potassium 4.2 meq/L (3.5-5.1)
[2017-11-17] MEDS: Insulin NovoLOG Aspart Correctional Sugar Inj SQ SCH ×4 (07:39→22:03)
--- NOTE | 2017-11-17 08:22 | P.PNOP ---
Subjective Interval history: patient resting, family in room. they state he has not been complaining of hip pain. knee xray was done yesterday. Physical Exam Vital signs: Vital Signs 11/16/17 10:14 11/16/17 10:33 11/16/17 10:45 Temperature 97.5 F L Pulse Rate 92 H 95 H 92 H Respiratory Rate 26 H Blood Pressure 132/60 Pulse Oximetry 100 11/16/17 12:00 11/16/17 12:14 11/16/17 12:48 Temperature 98.1 F Pulse Rate 99 H 99 H 92 H Respiratory Rate 26 H 20 Blood Pressure 165/72 H Pulse Oximetry 100 11/16/17 13:04 11/16/17 13:20 11/16/17 14:00 Temperature 97.5 F L 98.1 F Pulse Rate 104 H 103 H 69 Respiratory Rate 30 H 28 H Blood Pressure 166/72 H 166/72 H Pulse Oximetry 98 98 11/16/17 15:32 11/16/17 16:00 11/16/17 18:00 Temperature 97.9 F Pulse Rate 91 H 93 H 90 Respiratory Rate 18 26 H Blood Pressure 149/61 H Pulse Oximetry 95 94 L 11/16/17 19:22 11/16/17 20:00 11/16/17 22:00 Temperature 98.9 F Pulse Rate 97 H 92 H 93 H Respiratory Rate 28 H 22 Blood Pressure 152/68 H Pulse Oximetry 97 94 L 11/16/17 23:37 11/17/17 00:00 11/17/17 02:00 Temperature 98.6 F Pulse Rate 82 86 86 Respiratory Rate 22 29 H Blood Pressure 146/67 H Pulse Oximetry 93 L 11/17/17 04:00 11/17/17 06:00 11/17/17 07:33 Temperature 98.7 F Pulse Rate 84 84 Respiratory Rate 20 Blood Pressure 146/65 H Pulse Oximetry 96 93 L 11/17/17 07:34 Temperature Pulse Rate 80 Respiratory Rate 28 H Blood Pressure Pulse Oximetry Intake & Output 11/16/17 11/17/17 11/17/17 18:59 06:59 18:59 Intake Total 1050 / 1050 1100 / 1100 500 / 500 Output Total 450 / 450 2900 / 2900 1000 / 1000 Balance 600 / 600 -1800 / -1800 -500 / -500 Weight 73 kg Intake: IV 100 / 100 Maxipime Inj 2,000 MG In NS Inj 100 / 100 100 ML @ 200 mls/hr IV.SIG Q12H [facility] Rx#:[id number] Oral 550 / 550 1100 / 1100 500 / 500 Intake (Blood Product) Amt 400 / 400 Rbc As-3 Leukoreduced Unit 0 / 0 [id number] Rbc As-5 Leukoreduced Unit 400 / 400 [id number] Output: Urine 1000 / 1000 Stool 0 / 0 0 / 0 Urine/Stool Mix 0 / 0 0 / 0 0 / 0 Urine Amount (Catheter) 450 / 450 2900 / 2900 Indwelling Urethral Catheter 450 / 450 2900 / 2900 Other: Date of Last Bowel Movement 11/14/17 # Bowel Movements 0 0 0 # Incontinent Bowel Movements 0 Narrative: in bed, nad, O2 canula in place, resting comfortably dressing LLE in place, c/d/i neg homans appears nvi mild swelling L knee - Urinary Catheter Management Indwelling Urethral Catheter Cath placed during this visit: no Results - Labs CBC & Chem 7: 11/17/17 03:39 11/17/17 03:39 Laboratory Results - last 24 hr 11/16/17 11/16/17 11/16/17 05:34 08:46 08:56 WBC RBC Hgb 5.5 L* Hct 16.6 L* MCV MCH MCHC RDW Plt Count MPV Sodium Potassium Chloride Carbon Dioxide Anion Gap BUN Creatinine Estimated GFR POC Glucose 197 H Random Glucose Calcium Magnesium MTS Gel Crossmatch See Detail 11/16/17 11/16/17 11/16/17 12:33 17:52 18:50 WBC RBC Hgb 10.3 L D Hct 30.2 L MCV MCH MCHC RDW Plt Count MPV Sodium Potassium Chloride Carbon Dioxide Anion Gap BUN Creatinine Estimated GFR POC Glucose 223 H 226 H Random Glucose Calcium Magnesium MTS Gel Crossmatch 11/16/17 11/17/17 11/17/17 21:14 03:39 03:39 WBC 9.1 RBC 3.24 L Hgb 9.9 L Hct 29.3 L MCV 90.3 MCH 30.5 MCHC 33.8 RDW 15.3 Plt Count 113 L MPV 8.4 Sodium 139 Potassium 4.2 Chloride 98 Carbon Dioxide 34.9 H Anion Gap 6 BUN 32 H Creatinine 0.93 Estimated GFR 78 L POC Glucose 194 H Random Glucose 214 H Calcium 7.8 L Magnesium 2.1 MTS Gel Crossmatch - Imaging Impressions Knee X-Ray 11/16/17 00:00 CONCLUSION: 1. Under mineralized bones without a fracture identified. 2. Small joint effusion. Chest X-Ray 11/17/17 00:00 CONCLUSION: Worsening bilateral pulmonary infiltrates. Stable effusions. Assessment and Plan - Ortho Post Op Day # 3 - Assessment and Plan pod 3 sp left troch nail pt in the medical ICU due to respiratory distress, needing support multiple medical comorbidities with copd, cad plan transfused prbc yesterday xray left knee due to knee swelling - no sign of fracture, discussed with family I have discussed findings and current plan with daughter and at bedside, all questions were answered lovenox and scd for dvt prophylaxis physical therapy 50-% pwb LLE ok to be OOB and into chair per ortho, if ok with medical will need snf when medicably cleared for discharge
[2017-11-17] MEDS ORDERED: Bisacodyl 10 MG Supp RECTAL ONE (09:28)
[2017-11-17] MEDS: Potassium Chloride 10 MEQ ER Capsule PO SCH (12:26)
[2017-11-17] MEDS: Folic Acid 1 MG Tablet PO SCH (12:26)
[2017-11-17] MEDS: Multivitamin/Minerals Therapeutic Tablet PO SCH (12:27)
[2017-11-17] MEDS: Senna/Docusate Sodium 8.6/50 MG Tablet PO SCH ×2 (12:27→22:03)
[2017-11-17] MEDS: Enoxaparin Inj 40 MG/0.4 ML Syringe SQ SCH (12:28)
--- NOTE | 2017-11-17 18:32 | P.PN ---
Subjective Interval history: Some progress today ,and he is stable and feels better. On O2 4 L. Good output. HGb was 9.6. Physical Exam Vital signs: Vital Signs 11/16/17 19:22 11/16/17 20:00 11/16/17 22:00 Temperature 98.9 F Pulse Rate 97 H 92 H 93 H Respiratory Rate 28 H 22 Blood Pressure 152/68 H Pulse Oximetry 97 94 L 11/16/17 23:37 11/17/17 00:00 11/17/17 02:00 Temperature 98.6 F Pulse Rate 82 86 86 Respiratory Rate 22 29 H Blood Pressure 146/67 H Pulse Oximetry 93 L 11/17/17 04:00 11/17/17 06:00 11/17/17 07:33 Temperature 98.7 F Pulse Rate 84 84 Respiratory Rate 20 Blood Pressure 146/65 H Pulse Oximetry 96 93 L 11/17/17 07:34 11/17/17 08:00 11/17/17 10:00 Temperature 98.3 F Pulse Rate 80 84 89 Respiratory Rate 28 H 20 Blood Pressure 144/66 H Pulse Oximetry 95 11/17/17 11:09 11/17/17 12:00 11/17/17 14:00 Temperature 98.4 F Pulse Rate 89 88 104 H Respiratory Rate 28 H 30 H Blood Pressure 159/93 H Pulse Oximetry 93 L 11/17/17 16:00 11/17/17 16:27 Temperature 98.5 F Pulse Rate 87 85 Respiratory Rate 25 H 26 H Blood Pressure 151/63 H Pulse Oximetry 95 Intake & Output 11/16/17 11/17/17 11/17/17 18:59 06:59 18:59 Intake Total 1050 / 1050 1200 / 1200 850 / 850 Output Total 450 / 450 2900 / 2900 1000 / 1000 Balance 600 / 600 -1700 / -1700 -150 / -150 Weight 73 kg Intake: IV 100 / 100 100 / 100 350 / 350 Maxipime Inj 2,000 MG In NS Inj 100 / 100 100 / 100 100 / 100 100 ML @ 200 mls/hr IV.SIG Q12H [facility] Rx#:[id number] Oral 550 / 550 1100 / 1100 500 / 500 Intake (Blood Product) Amt 400 / 400 Rbc As-3 Leukoreduced Unit 0 / 0 [id number] Rbc As-5 Leukoreduced Unit 400 / 400 [id number] Output: Urine 1000 / 1000 Stool 0 / 0 0 / 0 Urine/Stool Mix 0 / 0 0 / 0 0 / 0 Urine Amount (Catheter) 450 / 450 2900 / 2900 Indwelling Urethral Catheter 450 / 450 2900 / 2900 Other: Date of Last Bowel Movement 11/14/17 # Bowel Movements 0 0 0 # Incontinent Bowel Movements 0 Narrative: Elderly W/M alert and not in distress. GENERAL: SKIN: Warm and dry. HEAD: Atraumatic. Normocephalic. EYES: Pupils equal and round. No scleral icterus. No injection or drainage. ENT: No nasal bleeding or discharge. Mucous membranes pink and moist. NECK: Trachea midline. No JVD. CARDIOVASCULAR: Regular rate and rhythm. No murmur. RESPIRATORY: No accessory muscle use. Bilateral wheeze and basal crackles. Breath sounds equal bilaterally. GASTROINTESTINAL: Abdomen soft, non-tender, nondistended. Hepatic and splenic margins not palpable. MUSCULOSKELETAL: Extremities without clubbing, cyanosis, or edema. Left hip dressing.No obvious deformities. NEUROLOGICAL: Awake and alert. No obvious cranial nerve deficits. Motor grossly within normal limits. . Normal speech. PSYCHIATRIC: Appropriate mood and affect. - Urinary Catheter Management Indwelling Urethral Catheter Cath placed during this visit: no Results - Labs CBC & Chem 7: 11/17/17 03:39 11/17/17 03:39 Laboratory Results - last 24 hr 11/16/17 11/16/17 11/17/17 18:50 21:14 03:39 WBC 9.1 RBC 3.24 L Hgb 10.3 L D 9.9 L Hct 30.2 L 29.3 L MCV 90.3 MCH 30.5 MCHC 33.8 RDW 15.3 Plt Count 113 L MPV 8.4 Sodium Potassium Chloride Carbon Dioxide Anion Gap BUN Creatinine Estimated GFR POC Glucose 194 H Random Glucose Calcium Magnesium 11/17/17 11/17/17 11/17/17 03:39 09:14 12:18 WBC RBC Hgb Hct MCV MCH MCHC RDW Plt Count MPV Sodium 139 Potassium 4.2 Chloride 98 Carbon Dioxide 34.9 H Anion Gap 6 BUN 32 H Creatinine 0.93 Estimated GFR 78 L POC Glucose 220 H 211 H Random Glucose 214 H Calcium 7.8 L Magnesium 2.1 11/17/17 16:18 WBC RBC Hgb Hct MCV MCH MCHC RDW Plt Count MPV Sodium Potassium Chloride Carbon Dioxide Anion Gap BUN Creatinine Estimated GFR POC Glucose 244 H Random Glucose Calcium Magnesium Microbiology 11/16/17 18:50 Blood - Peripheral Aerobic Blood Culture - Preliminary No growth in 1 day 11/16/17 18:50 Blood - Peripheral Anaerobic Blood Culture - Preliminary No growth in 1 day 11/16/17 18:40 Blood - Peripheral Aerobic Blood Culture - Preliminary No growth in 1 day 11/16/17 18:40 Blood - Peripheral Anaerobic Blood Culture - Preliminary No growth in 1 day - Imaging Impressions Chest X-Ray 11/17/17 00:00 CONCLUSION: Worsening bilateral pulmonary infiltrates. Stable effusions. Assessment and Plan - Assessment (1) CHF (congestive heart failure) Code(s): I50.9 - Heart failure, unspecified Status: Acute (2) Emphysema of lung Code(s): J43.9 - Emphysema, unspecified Status: Acute (3) Borderline diabetes mellitus Code(s): R73.03 - Prediabetes Status: Acute (4) Fracture, intertrochanteric, left femur Code(s): S72.142A - Displaced intertrochanteric fracture of left femur, initial encounter for closed fracture Status: Acute (5) Nutrition, metabolism, and development symptoms Code(s): R63.8 - Other symptoms and signs concerning food and fluid intake Status: Acute (6) Fall Code(s): W19.XXXA - Unspecified fall, initial encounter Status: Acute (7) Cor pulmonale (chronic) Code(s): I27.81 - Cor pulmonale (chronic) Status: Acute (8) Pulmonary hypertension assoc with unclear multi-factorial mechanisms Code(s): I27.29 - Other secondary pulmonary hypertension Status: Acute - Plan 1. Will, leave on O2 N/C 5 L 2. Nebs qid duoneb. 3. BIPAP 12/5 cm FIO2 30 % at HS and PRN 4. Duoneb nebs qid. 5. Continue S/Q lovenox 6. CBC,BMP in am 7. PT evaluation and IS at bedside 8. Symbicort 160/4.5 mcg , 2 puffs BID 9. Continue Cefipime IV 1 G BID
--- NOTE | 2017-11-17 18:44 | P.PNCC ---
Subjective Subjective Remarks/Hospital Course: subjective: 11/16: long discussion with family on multiple occasions today: some improvements in subjective dyspnea, but still high fio2 requirements. hgb dropped to 5.5 this AM, receiving 2 units prbc: most likely dilutional from pre- operative losses due to fracture. no melena or other signs of active bleeding. 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 11/17: hgb responded appropriately to transfusion yesterday. now improving. appears slightly volume overloaded today and actively diuresing. o2 requirements slightly better. subjective improvements in dyspnea. Objective Vital Signs / I&O: Vital Signs 11/16/17 19:22 11/16/17 20:00 11/16/17 22:00 Temperature 37.2 C Pulse Rate 97 H 92 H 93 H Respiratory Rate 28 H 22 Blood Pressure 152/68 H Pulse Oximetry 97 94 L 11/16/17 23:37 11/17/17 00:00 11/17/17 02:00 Temperature 37.0 C Pulse Rate 82 86 86 Respiratory Rate 22 29 H Blood Pressure 146/67 H Pulse Oximetry 93 L 11/17/17 04:00 11/17/17 06:00 11/17/17 07:33 Temperature 37.1 C Pulse Rate 84 84 Respiratory Rate 20 Blood Pressure 146/65 H Pulse Oximetry 96 93 L 11/17/17 07:34 11/17/17 08:00 11/17/17 10:00 Temperature 36.8 C Pulse Rate 80 84 89 Respiratory Rate 28 H 20 Blood Pressure 144/66 H Pulse Oximetry 95 11/17/17 11:09 11/17/17 12:00 11/17/17 14:00 Temperature 36.9 C Pulse Rate 89 88 104 H Respiratory Rate 28 H 30 H Blood Pressure 159/93 H Pulse Oximetry 93 L 11/17/17 16:00 11/17/17 16:27 Temperature 36.9 C Pulse Rate 87 85 Respiratory Rate 25 H 26 H Blood Pressure 151/63 H Pulse Oximetry 95 Intake & Output 11/16/17 11/17/17 11/17/17 18:59 06:59 18:59 Intake Total 1050 / 1050 1200 / 1200 850 / 850 Output Total 450 / 450 2900 / 2900 1000 / 1000 Balance 600 / 600 -1700 / -1700 -150 / -150 Weight 73 kg Intake: IV 100 / 100 100 / 100 350 / 350 Maxipime Inj 2,000 MG In NS Inj 100 / 100 100 / 100 100 / 100 100 ML @ 200 mls/hr IV.SIG Q12H NOAH Rx#:[id number] Oral 550 / 550 1100 / 1100 500 / 500 Intake (Blood Product) Amt 400 / 400 Rbc As-3 Leukoreduced Unit 0 / 0 [id number] Rbc As-5 Leukoreduced Unit 400 / 400 [id number] Output: Urine 1000 / 1000 Stool 0 / 0 0 / 0 Urine/Stool Mix 0 / 0 0 / 0 0 / 0 Urine Amount (Catheter) 450 / 450 2900 / 2900 Indwelling Urethral Catheter 450 / 450 2900 / 2900 Other: Date of Last Bowel Movement 11/14/17 # Bowel Movements 0 0 0 # Incontinent Bowel Movements 0 Result Diagrams: 11/17/17 03:39 11/17/17 03:39 Objective Remarks: gen: frail eldery male, lying in bed, some respiratory distress, although appears improved from prior documented exams. heent: nc. at. perrl. mmm. neck: no jvd. trachea midline. chest: mildly tachypneic. coarse BS throughout. high flow NC on 60% fio2. 35 LPM. cv: normal rate, regular rhythm. sinus. abd: soft, nontender, nondistended. no guarding. extr: no edema. distal pulses 2+. trochanteric incision c/d/i. no hematoma. neuro: RASS 0. follows commands. no focal deficits. 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 remains high risk for further decompensation. I have had several discussions with family where I reiterate how ill he is and how if he were to decompensate requiring mechanical ventilation and life-support, I do not think he will successfully separate from mechanical support. However, they urge for aggressive measures and FULL CODE code status. highly complex. NEURO: Acute delirium, multifactorial but likely secondary to hypoxia and hypercapnia. - some mild improvements. Postoperative pain. Oxycodone prn pain. Fall MSK: L inter trochanteric femur fracture status post IM nail 11/[address] Robertson RESP: Acute hypoxemic and hypercapnic respiratory failure- persistent History of left lower lobectomy end-stage Pulmonary fibrosis Bronchiectasis end-stage COPD Former tobacco abuse continuous 24h home oxygen dependence Agree with high flow NC. family understands he may require intubation, and they wish to pursue full aggressive measures. DuoNeb every 4 hours. Albuterol every 2 hours as needed Solumedrol 40 mg IV q12 hours CXR with chronic left pleural thickening, consolidation right base f/u cultures. continue abx. Has had outpatient CT per Dr. Myers which demonstrates pulmonary fibrosis and bronchiectasis. BLE us negative for DVT. VQ scan with ventilation abnormalities>perfusion abnormalities in left lower lobe, pattern not typical of PE and likely related to lobectomy. I would not recommend therapeutic anticoagulation at this point. Avoid CTA based on worsening renal indices and Dr. Myers discussed with family who did not wish to assume risk of IV contrast. Pulmonology following, Dr. Myers. 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 Diuresis with Lasix 40 mg IV daily. GI: Ice chips/clear liquids until respiratory status improved. FEN/RENAL: Continue Bethea for close monitoring of urinary output. Monitor electrolytes and replace as indicated per ICU protocol. aggressive diuresis with 2 doses of lasix today and 1 dose diamox to mitigate alkalosis which is developing. ID: Send sputum and blood cultures. Received dose of vancomycin. Will initiate cefepime. HEME: Anemia secondary to acute blood loss 2 units prbc 11/16. trend cbc most likely secondary to pre-op bleeding from fracture and now dilutional. unlikely to have ongoing active bleeding. will monitor.clinically improving. ENDO: Diabetes with acute hyperglycemia while on steroids Hold metformin Monitor bedside glucose every 6 hours and initiate low-dose insulin sliding scale as indicated. PROPH: Lovenox 40 mg subcu daily for DVT prophylaxis. SCDs in place. Protonix for stress ulcer prophylaxis. discussed at length with family the risks and benefits of continuing vs. holding lovenox. no active bleeding. high risk for DVT formation, and acute PE would be a non-survivable event for this patient. will continue Lovenox. family understands and agrees to proceed with this plan. ACCESS: PIV Patient is critically ill with acute hypercapneic and hypoxemic respiratory failure, severe pulmonary HTN that pose threat to life. He is at high risk of further deterioration including intubation and mechanical ventilation. Will remain in ICU.
--- NOTE | 2017-11-17 19:39 | P.PNFP ---
Subjective Interval history: Attending note: Patient seen with resident team this morning and and daughter at bedside. The patient is alert, makes eye contact and has been reported as taking p.o. nutrition assisted by the family reasonably well. Patient reports no somatic pain when translated through to patient. Events of the last 24 hours reviewed, discussed with Dr. Vega. Results - Labs Result diagrams: 11/17/17 03:39 11/17/17 03:39 Abnormal lab results 11/16/17 11/16/17 11/17/17 Range/Units 18:50 21:14 03:39 RBC 3.24 L (4.50-5.90) mil/mm3 Hgb 10.3 L D 9.9 L (13.0-17.0) gm/dL Hct 30.2 L 29.3 L (39.0-51.0) % Plt Count 113 L (150-450) th/mm3 Carbon Dioxide (21.0-32.0) meq/L BUN (7-18) mg/dL Estimated GFR (>89) mL/min POC Glucose 194 H (68-110) mg/dl Random Glucose (74-106) mg/dL Calcium (8.5-10.1) mg/dL 11/17/17 11/17/17 11/17/17 Range/Units 03:39 09:14 12:18 RBC (4.50-5.90) mil/mm3 Hgb (13.0-17.0) gm/dL Hct (39.0-51.0) % Plt Count (150-450) th/mm3 Carbon Dioxide 34.9 H (21.0-32.0) meq/L BUN 32 H (7-18) mg/dL Estimated GFR 78 L (>89) mL/min POC Glucose 220 H 211 H (68-110) mg/dl Random Glucose 214 H (74-106) mg/dL Calcium 7.8 L (8.5-10.1) mg/dL 11/17/17 Range/Units 16:18 RBC (4.50-5.90) mil/mm3 Hgb (13.0-17.0) gm/dL Hct (39.0-51.0) % Plt Count (150-450) th/mm3 Carbon Dioxide (21.0-32.0) meq/L BUN (7-18) mg/dL Estimated GFR (>89) mL/min POC Glucose 244 H (68-110) mg/dl Random Glucose (74-106) mg/dL Calcium (8.5-10.1) mg/dL Short CBC 11/16/17 11/17/17 Range/Units 18:50 03:39 WBC 9.1 (4.0-11.0) th/mm3 Hgb 10.3 L D 9.9 L (13.0-17.0) gm/dL Hct 30.2 L 29.3 L (39.0-51.0) % Plt Count 113 L (150-450) th/mm3 BMP 11/17/17 03:39 Sodium 139 Potassium 4.2 Chloride 98 Carbon Dioxide 34.9 H BUN 32 H Creatinine 0.93 Calcium 7.8 L - Imaging Impressions Chest X-Ray 11/17/17 00:00 CONCLUSION: Worsening bilateral pulmonary infiltrates. Stable effusions. Physical Exam Vital signs: Vital Signs 11/16/17 20:00 11/16/17 22:00 11/16/17 23:37 Temperature 98.9 F Pulse Rate 92 H 93 H 82 Respiratory Rate 22 22 Blood Pressure 152/68 H Pulse Oximetry 94 L 11/17/17 00:00 11/17/17 02:00 11/17/17 04:00 Temperature 98.6 F 98.7 F Pulse Rate 86 86 84 Respiratory Rate 29 H 20 Blood Pressure 146/67 H 146/65 H Pulse Oximetry 93 L 96 11/17/17 06:00 11/17/17 07:33 11/17/17 07:34 Temperature Pulse Rate 84 80 Respiratory Rate 28 H Blood Pressure Pulse Oximetry 93 L 11/17/17 08:00 11/17/17 10:00 11/17/17 11:09 Temperature 98.3 F Pulse Rate 84 89 89 Respiratory Rate 20 28 H Blood Pressure 144/66 H Pulse Oximetry 95 11/17/17 12:00 11/17/17 14:00 11/17/17 16:00 Temperature 98.4 F 98.5 F Pulse Rate 88 104 H 87 Respiratory Rate 30 H 25 H Blood Pressure 159/93 H 151/63 H Pulse Oximetry 93 L 95 11/17/17 16:27 11/17/17 19:26 Temperature Pulse Rate 85 103 H Respiratory Rate 26 H 22 Blood Pressure Pulse Oximetry 95 Intake & Output 11/17/17 11/17/17 11/18/17 06:59 18:59 06:59 Intake Total 1200 / 1200 850 / 850 Output Total 2900 / 2900 1000 / 1000 Balance -1700 / -1700 -150 / -150 Weight 73 kg Intake: IV 100 / 100 350 / 350 Maxipime Inj 2,000 MG In NS Inj 100 / 100 100 / 100 100 ML @ 200 mls/hr IV.SIG Q12H NOAH Rx#:[id number] Oral 1100 / 1100 500 / 500 Output: Urine 1000 / 1000 Stool 0 / 0 0 / 0 Urine/Stool Mix 0 / 0 0 / 0 Urine Amount (Catheter) 2900 / 2900 Indwelling Urethral Catheter 2900 / 2900 Other: Date of Last Bowel Movement 11/14/17 # Bowel Movements 0 0 Narrative: Vital signsTemperature 98.3 respirations 25 blood pressure 150/63. General appearance much more alert, interactive, appears to be in no acute distress, nasal cannula O2. Lungs diminished breath sounds in all areas, reasonable aeration superiorly. Cardiac: S1-S2, no S3, no definite murmurs appreciated. Abdomen: Soft, does not appear to have tenderness, no masses organomegaly. Extremities hands are warm and dry, can squeeze fingers. Lower extremities- feet are warm and dry, trace edema. Sequential hose in place. - Urinary Catheter Management Indwelling Urethral Catheter Cath placed during this visit: no Assessment and Plan - Assessment (1) Respiratory distress Code(s): R06.03 - Acute respiratory distress Status: Acute (2) Fracture, intertrochanteric, left femur Code(s): S72.142A - Displaced intertrochanteric fracture of left femur, initial encounter for closed fracture Status: Acute Plan: Patient came to the ED after a witnessed fall 11/13/17. X-ray of the hip showed intertrochanteric fracture on the left and osteopenia. Orthopedic surgery consulted, preop labs ordered and reviewed: mild anemia with H&H 11/34.3, coags within normal limits Consulted pulmonology/cardiology for surgery clearance. Vitamin D level 6 - will discuss with family regarding supplementation Continue Castellanos's traction prior to surgical managment Percocet/morphine for breakthrough pain scale NPO for surgery at this time (3) Fall Code(s): W19.XXXA - Unspecified fall, initial encounter Status: Acute Plan: Family reports that patient often gets lightheaded when standing up quickly which occurred today prior to the fall Denies any loss of consciousness, chest pain or shortness of breath different from baseline EKG on admission showed sinus rhythm with no T-wave inversions Continuous telemetry - no reported events No electrolyte abnormalities, mildly anemic with H&H of 11.0/34.3 UA collected 11/14, showing no evidence of infection. Troponin x 1 negative for evidence of cardiac ischemia Suspect orthostatic etiology of the fall, may need to consider further imaging pending the hospital course (4) CHF (congestive heart failure) Code(s): I50.9 - Heart failure, unspecified Status: Acute Plan: Patient with a known history of CHF. Followed by Dr. Weinstein per family ASCVD with coronary disease and history congestive heart failure by history Pre-hospital EF unknown Echo performed 11/14/17 showing EF 60-65%, severe pulmonary HTN with 76mm Hg pressure Chest x-ray on admission showed abnormal pleural-based thickening and calcification measuring up to 4.9 cm in the left hemithorax possibly associated with a prior left thoracotomy. Diminished size of the left lung possibly from partial prior resection. No signs of pleural effusion. Does not appear to be fluid overloaded on exam EKG on admission was normal Per garment sewer hand report, anticipate clearance for surgery based on clinical picture, risk vs. benefit profile of surgical repair of hip, however echo was pending at their initial evaluation. 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 Probable empyema surgery at age 20. Former smoker. Quit 1 year ago but previously smoked 3-4 packs per day 3-4 L nasal cannula at home, continued while inpatient Nebulizer treatments at home, family cannot confirm the exact medication Duonebs every 4-6 hours as needed for wheezing Pulmonology consulted as he will need surgical clearance. They are following. They recommended Symbicort 160 4.5 mcg 2 puffs daily. Repeat CXR ordered this morning 11/14 pending. Family requested that anesthesia team discuss case with them prior to surgery today, nurse aware and has called surgeon and anesthesiologist. (6) Borderline diabetes mellitus Code(s): R73.03 - Prediabetes Status: Acute Plan: Known history of borderline type 2 diabetes Takes metformin 500 mg p.o. daily Holding home medications for now. Random glucose on admission was 135 Sliding scale Novolog if needed (7) Nutrition, metabolism, and development symptoms Code(s): R63.8 - Other symptoms and signs concerning food and fluid intake Status: Acute Plan: NPO for now pre-operatively. Will resume diet post-operatively as tolerated Electrolytes within normal limits. Will replete as needed No IV fluids at this time SCDs for DVT prophylaxis until surgical plan is established. Pharmacologic anticoagulation indicated postoperatively (usually initiated 24 hr postoperatively) - Assessment and Plan Attending note: patient seen and examined with resident team. 2 d echo did reveal preserved left vent function and increase pulmonary artery pressure consistent with lung disease. Family has multiple concerns and patent's and daughters are in attendance. Patient is to go to OR for rt hip orif by orthopedic surgery. In discussion with daughterTenisha, reviewed that post op patient would most likely need snf rehab and she related that his baseline mental status is one that requires constant attendance as he has developed a dementia. Emphasized that after anesthesia, cn anticipate that confusion will temporarily worsen. Agree with orders as written by resident team. Follow closely post op. Karan Ramírez MD 11/14/17. Attending note: 11/15/2017. 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 Physician and resident physician counseled with the family including , [id number] who has medical background, and daughters in an effort to answer their questions, appreciate his past medical history, explained to them the present clinical findings and plan going forward. At the present time a CTA of the chest has been recommended, family is deciding whether they are comfortable. In counseling the family they express different emotions including anger, and frustration. Will continue on the current clinical course , ensure that all medical staff physicians, nurses and support team are communicating. Karan Ramírez MD 11/15/2017. Attending note assessment 11/16/2017: Very complex patient, status post day 2 left ORIF with intramedullary pinning, severely compromised lungs prior to entry into the hospital secondary to fibrotic scarring and COPD reported to be a smoker up until hospitalization with a dementia described by the family ( difficult to tell to what stage) whose oxygen levels of been reasonably stabilized today on nasal cannula oxygenation. Because of his age, comorbidities his postop course will definitely be a lengthy process, statistically he is at risk for complications that could be life-threatening. Family has many frustrations, expresses anger, and their questions were answered to the best of the team's abilities. Medical team will work with Dr. Vega, the equipment operator/laborer and the nursing staff closely. Karan Ramírez MD 2017. Attending note assessment 11/17/2017: Clinically stable, maintaining adequate oxygenation, beginning to take nutrition by mouth. Family currently at bedside appears to understand and have appropriate questions. Appreciate Dr. Vega's note. After 2 units of packed cells transfused slowly over the last 24 hours the patient's hemoglobin is 10.3. Electrolytes are within normal range. Creatinine 0.93. Point of care glucose is ranging in the low 200s. Reviewed chest x-rays. Continue supportive measures. Clinical course will be weeks to months providing there are not new clinical challenges. Discussed with Dr. Vega usage of Diamox with Lasix to address what appears to be some pulmonary fluid. Discussed with resident staff, agree with resident's orders as recorded. Karan Ramírez MD 11/17/2017.
[2017-11-18] MEDS: oxyCODONE/Acetaminophen 10/325 Tablet PO PRN (00:19)
[2017-11-18] MEDS: Chlorhexidine Gluconate 2% 1 Pack (2 Cloths) TOPICAL SCH ×2 (03:55→03:57)
[2017-11-18 06:22] LABS: Hematocrit 32.5 % (39.0-51.0); Mean Corpuscular HGB Conc 33.7 % (32.0-36.0); Mean Corpuscular Hemoglobin 30.6 pg (27.0-34.0); Mean Corpuscular Volume 90.7 fL (80.0-100.0); Mean Platelet Volume 8.6 fL (7.0-11.0); Platelet Count 127 th/mm3 (150-450); Red Blood Count 3.58 mil/mm3 (4.50-5.90); Red Cell Distribution Width 15.6 % (11.6-17.2); White Blood Count 10.8 th/mm3 (4.0-11.0)
[2017-11-18 06:40] LABS: Calcium 7.7 mg/dL (8.5-10.1); Carbon Dioxide 36.6 meq/L (21.0-32.0); Potassium 3.5 meq/L (3.5-5.1)
--- NOTE | 2017-11-18 08:06 | P.PNOP ---
Subjective Interval history: family in room. pain seems to be controlled from hip. Physical Exam Vital signs: Vital Signs 11/17/17 10:00 11/17/17 11:09 11/17/17 12:00 Temperature 98.4 F Pulse Rate 89 89 88 Respiratory Rate 28 H 30 H Blood Pressure 159/93 H Pulse Oximetry 93 L 11/17/17 14:00 11/17/17 16:00 11/17/17 16:27 Temperature 98.5 F Pulse Rate 104 H 87 85 Respiratory Rate 25 H 26 H Blood Pressure 151/63 H Pulse Oximetry 95 11/17/17 19:26 11/17/17 20:00 11/17/17 22:00 Temperature 97.7 F Pulse Rate 103 H 107 H 103 H Respiratory Rate 22 27 H Blood Pressure 143/62 H Pulse Oximetry 95 93 L 11/17/17 23:08 11/18/17 00:00 11/18/17 02:00 Temperature 98.2 F Pulse Rate 107 H 104 H 96 H Respiratory Rate 24 24 Blood Pressure 153/66 H Pulse Oximetry 92 L 11/18/17 03:15 11/18/17 04:00 11/18/17 06:00 Temperature 98.3 F Pulse Rate 93 H 96 H 92 H Respiratory Rate 20 18 Blood Pressure 137/85 Pulse Oximetry 94 L 11/18/17 07:23 Temperature Pulse Rate 88 Respiratory Rate 24 Blood Pressure Pulse Oximetry 94 L Intake & Output 11/17/17 11/18/17 11/18/17 18:59 06:59 18:59 Intake Total 850 / 850 100 / 100 Output Total 1000 / 1000 Balance -150 / -150 100 / 100 Weight 72.5 kg Intake: IV 350 / 350 100 / 100 Maxipime Inj 2,000 MG In NS Inj 100 / 100 100 / 100 100 ML @ 200 mls/hr IV.SIG Q12H NOAH Rx#:[id number] Oral 500 / 500 Output: Urine 1000 / 1000 Stool 0 / 0 Urine/Stool Mix 0 / 0 Other: # Bowel Movements 0 Narrative: in bed, nad, O2 cannula in place LLE - dressing c/d/i SCDs in place neg homand nvi - Urinary Catheter Management Indwelling Urethral Catheter Cath placed during this visit: no Results - Labs CBC & Chem 7: 11/18/17 03:41 11/18/17 03:41 Laboratory Results - last 24 hr 08/21/18 08/21/18 08/21/18 09:14 12:18 16:18 WBC RBC Hgb Hct MCV MCH MCHC RDW Plt Count MPV Sodium Potassium Chloride Carbon Dioxide Anion Gap BUN Creatinine Estimated GFR POC Glucose 220 H 211 H 244 H Random Glucose Calcium Magnesium 11/17/17 11/18/17 11/18/17 20:13 03:41 03:41 WBC 10.8 RBC 3.58 L Hgb 11.0 L Hct 32.5 L MCV 90.7 MCH 30.6 MCHC 33.7 RDW 15.6 Plt Count 127 L MPV 8.6 Sodium 140 Potassium 3.5 Chloride 97 L Carbon Dioxide 36.6 H Anion Gap 6 BUN 34 H Creatinine 1.23 Estimated GFR 56 L POC Glucose 187 H Random Glucose 103 D Calcium 7.7 L Magnesium 2.0 Microbiology 11/16/17 18:50 Blood - Peripheral Aerobic Blood Culture - Preliminary No growth in 1 day 11/16/17 18:50 Blood - Peripheral Anaerobic Blood Culture - Preliminary No growth in 1 day 11/16/17 18:40 Blood - Peripheral Aerobic Blood Culture - Preliminary No growth in 1 day 11/16/17 18:40 Blood - Peripheral Anaerobic Blood Culture - Preliminary No growth in 1 day Assessment and Plan - Ortho Post Op Day # 4 - Assessment and Plan pod 4 sp left troch nail pt in the medical ICU due to respiratory distress, needing support multiple medical comorbidities with copd, cad plan transfused prbc Thursday xray left knee due to knee swelling - no sign of fracture, discussed with family I have discussed findings and current plan with family and at bedside, all questions were answered lovenox and scd for dvt prophylaxis physical therapy 50-% pwb LLE ok to be OOB and into chair per ortho, if ok with medical will need snf when medicably cleared for discharge f/up dr. schumacher 2 weeks
[2017-11-18] MEDS: Senna/Docusate Sodium 8.6/50 MG Tablet PO SCH ×2 (09:10→20:25)
[2017-11-18] MEDS: Multivitamin/Minerals Therapeutic Tablet PO SCH (09:11)
[2017-11-18] MEDS: Folic Acid 1 MG Tablet PO SCH (09:11)
[2017-11-18] MEDS: Potassium Chloride 10 MEQ ER Capsule PO SCH (09:11)
[2017-11-18] MEDS: Insulin NovoLOG Aspart Correctional Sugar Inj SQ SCH ×4 (09:13→20:25)
--- NOTE | 2017-11-18 11:37 | P.PNGS ---
Subjective Interval history: Attending note: Patient seen with nursing staff, Dr. Davies, and Dr. Moss. and daughters at bedside who facilitate translation. Patient is alert, greets physician verbally, does not have any acute physical symptoms except over the last 1-2 days has developed a "burning pain "left lateral lower back/ flank. Patient reported to eat reasonably well, is passing flatus, has not had an actual bowel movement. Chart reviewed. Physical Exam Vital signs: Vital Signs 11/17/17 12:00 11/17/17 14:00 11/17/17 16:00 Temperature 98.4 F 98.5 F Pulse Rate 88 104 H 87 Respiratory Rate 30 H 25 H Blood Pressure 159/93 H 151/63 H Pulse Oximetry 93 L 95 11/17/17 16:27 11/17/17 19:26 11/17/17 20:00 Temperature 97.7 F Pulse Rate 85 103 H 107 H Respiratory Rate 26 H 22 27 H Blood Pressure 143/62 H Pulse Oximetry 95 93 L 11/17/17 22:00 11/17/17 23:08 11/18/17 00:00 Temperature 98.2 F Pulse Rate 103 H 107 H 104 H Respiratory Rate 24 24 Blood Pressure 153/66 H Pulse Oximetry 92 L 11/18/17 02:00 11/18/17 03:15 11/18/17 04:00 Temperature 98.3 F Pulse Rate 96 H 93 H 96 H Respiratory Rate 20 18 Blood Pressure 137/85 Pulse Oximetry 94 L 11/18/17 06:00 11/18/17 07:23 11/18/17 11:16 Temperature Pulse Rate 92 H 88 92 H Respiratory Rate 24 25 H Blood Pressure Pulse Oximetry 94 L Intake & Output 11/17/17 11/18/17 11/18/17 18:59 06:59 18:59 Intake Total 850 / 850 100 / 100 Output Total 1000 / 1000 Balance -150 / -150 100 / 100 Weight 72.5 kg Intake: IV 350 / 350 100 / 100 Maxipime Inj 2,000 MG In NS Inj 100 / 100 100 / 100 100 ML @ 200 mls/hr IV.SIG Q12H NOAH Rx#:[id number] Oral 500 / 500 Output: Urine 1000 / 1000 Stool 0 / 0 Urine/Stool Mix 0 / 0 Other: # Bowel Movements 0 Narrative: Vital signs: 98.3 respirations upwards of 24 and at times mildly dyspneic. Blood pressure 137/85 and O2 saturation 92% on high flow nasal cannula. General appearance: Awake and alert interacting verbally with his family and makes eye contact with physician. HEENT: Nonlocalizing nasal cannula in place. Neck: Supple Lungs: Overall diminished breath sounds, superiorly on auscultation clear aeration lesser on the left side. Cardiac: S1-S2, no S3 or significant murmurs appreciated. Abdomen: Soft, does not appear to have any tenderness on palpation, no apparent masses, no organomegaly. Inspection of the left lateral flank does not reveal any rashes, pain is not palpable suggesting that the source is more deep in the lower chest upper abdomen. Left lateral hip wound appears to be healing well, no redness or drainage. 70s feet are warm and dry, sequential hose in place. Hands are warm and dry. Labs CBC notable for hemoglobin of 11.0, white blood cell count 10.8, platelets 127,000. Sodium 140. Potassium 3.5. Creatinine 1.23. Point of care glucoses ranges from 107-244. NAYELY reflects diuresis with the Lasix and Diamox on 11/17/2017. - Urinary Catheter Management Indwelling Urethral Catheter Cath placed during this visit: no Assessment and Plan - Assessment (1) Respiratory distress Code(s): R06.03 - Acute respiratory distress Status: Acute (2) Fracture, intertrochanteric, left femur Code(s): S72.142A - Displaced intertrochanteric fracture of left femur, initial encounter for closed fracture Status: Acute (3) Fall Code(s): W19.XXXA - Unspecified fall, initial encounter Status: Acute (4) CHF (congestive heart failure) Code(s): I50.9 - Heart failure, unspecified Status: Acute (5) Emphysema of lung Code(s): J43.9 - Emphysema, unspecified Status: Acute (6) Borderline diabetes mellitus Code(s): R73.03 - Prediabetes Status: Acute (7) Nutrition, metabolism, and development symptoms Code(s): R63.8 - Other symptoms and signs concerning food and fluid intake Status: Acute - Plan Clinical assessment: Postop day 4 left intramedullary pinning for intertrochanteric fracture. Patient with presurgery severe lung disease and pulmonary hypertension. Maintaining oxygen saturation, nutrition has been reestablished, recommend increasing activity to be out of the chair and start actively working with PT and OT. Discharge planning per resources available. Case discussed with Dr. Sorto, design project manager. Case discussed with resident team and agree with orders as written by the resident. Karan Ramírez MD 11/18/2017.
--- NOTE | 2017-11-18 11:41 | P.PNFP ---
Subjective Interval history: Attending note: Patient seen with nursing staff, Dr. Davies, and Dr. Moss. and daughters at bedside who facilitate translation. Patient is alert, greets physician verbally, does not have any acute physical symptoms except over the last 1-2 days has developed a "burning pain "left lateral lower back/ flank. Patient reported to eat reasonably well, is passing flatus, has not had an actual bowel movement. Chart reviewed. Results - Labs Result diagrams: 11/18/17 03:41 11/18/17 03:41 Abnormal lab results 11/17/17 11/17/17 11/17/17 Range/Units 12:18 16:18 20:13 RBC (4.50-5.90) mil/mm3 Hgb (13.0-17.0) gm/dL Hct (39.0-51.0) % Plt Count (150-450) th/mm3 Chloride (98-107) meq/L Carbon Dioxide (21.0-32.0) meq/L BUN (7-18) mg/dL Estimated GFR (>89) mL/min POC Glucose 211 H 244 H 187 H (68-110) mg/dl Calcium (8.5-10.1) mg/dL 11/18/17 11/18/17 Range/Units 03:41 03:41 RBC 3.58 L (4.50-5.90) mil/mm3 Hgb 11.0 L (13.0-17.0) gm/dL Hct 32.5 L (39.0-51.0) % Plt Count 127 L (150-450) th/mm3 Chloride 97 L (98-107) meq/L Carbon Dioxide 36.6 H (21.0-32.0) meq/L BUN 34 H (7-18) mg/dL Estimated GFR 56 L (>89) mL/min POC Glucose (68-110) mg/dl Calcium 7.7 L (8.5-10.1) mg/dL Short CBC 11/18/17 Range/Units 03:41 WBC 10.8 (4.0-11.0) th/mm3 Hgb 11.0 L (13.0-17.0) gm/dL Hct 32.5 L (39.0-51.0) % Plt Count 127 L (150-450) th/mm3 BMP 11/18/17 03:41 Sodium 140 Potassium 3.5 Chloride 97 L Carbon Dioxide 36.6 H BUN 34 H Creatinine 1.23 Calcium 7.7 L Physical Exam Vital signs: Vital Signs 11/17/17 12:00 11/17/17 14:00 11/17/17 16:00 Temperature 98.4 F 98.5 F Pulse Rate 88 104 H 87 Respiratory Rate 30 H 25 H Blood Pressure 159/93 H 151/63 H Pulse Oximetry 93 L 95 11/17/17 16:27 11/17/17 19:26 11/17/17 20:00 Temperature 97.7 F Pulse Rate 85 103 H 107 H Respiratory Rate 26 H 22 27 H Blood Pressure 143/62 H Pulse Oximetry 95 93 L 11/17/17 22:00 11/17/17 23:08 11/18/17 00:00 Temperature 98.2 F Pulse Rate 103 H 107 H 104 H Respiratory Rate 24 24 Blood Pressure 153/66 H Pulse Oximetry 92 L 11/18/17 02:00 11/18/17 03:15 11/18/17 04:00 Temperature 98.3 F Pulse Rate 96 H 93 H 96 H Respiratory Rate 20 18 Blood Pressure 137/85 Pulse Oximetry 94 L 11/18/17 06:00 11/18/17 07:23 11/18/17 11:16 Temperature Pulse Rate 92 H 88 92 H Respiratory Rate 24 25 H Blood Pressure Pulse Oximetry 94 L Intake & Output 11/17/17 11/18/17 11/18/17 18:59 06:59 18:59 Intake Total 850 / 850 100 / 100 Output Total 1000 / 1000 Balance -150 / -150 100 / 100 Weight 72.5 kg Intake: IV 350 / 350 100 / 100 Maxipime Inj 2,000 MG In NS Inj 100 / 100 100 / 100 100 ML @ 200 mls/hr IV.SIG Q12H NOAH Rx#:[id number] Oral 500 / 500 Output: Urine 1000 / 1000 Stool 0 / 0 Urine/Stool Mix 0 / 0 Other: # Bowel Movements 0 Narrative: Vital signs: 98.3 respirations upwards of 24 and at times mildly dyspneic. Blood pressure 137/85 and O2 saturation 92% on high flow nasal cannula. General appearance: Awake and alert interacting verbally with his family and makes eye contact with physician. HEENT: Nonlocalizing nasal cannula in place. Neck: Supple Lungs: Overall diminished breath sounds, superiorly on auscultation clear aeration lesser on the left side. Cardiac: S1-S2, no S3 or significant murmurs appreciated. Abdomen: Soft, does not appear to have any tenderness on palpation, no apparent masses, no organomegaly. Inspection of the left lateral flank does not reveal any rashes, pain is not palpable suggesting that the source is more deep in the lower chest upper abdomen. Left lateral hip wound appears to be healing well, no redness or drainage. 70s feet are warm and dry, sequential hose in place. Hands are warm and dry. Labs CBC notable for hemoglobin of 11.0, white blood cell count 10.8, platelets 127,000. Sodium 140. Potassium 3.5. Creatinine 1.23. Point of care glucoses ranges from 107-244. NAYELY reflects diuresis with the Lasix and Diamox on 11/17/2017. - Urinary Catheter Management Indwelling Urethral Catheter Cath placed during this visit: no Assessment and Plan - Assessment (1) Respiratory distress Code(s): R06.03 - Acute respiratory distress Status: Acute (2) Fracture, intertrochanteric, left femur Code(s): S72.142A - Displaced intertrochanteric fracture of left femur, initial encounter for closed fracture Status: Acute Plan: Patient came to the ED after a witnessed fall 11/13/17. X-ray of the hip showed intertrochanteric fracture on the left and osteopenia. Orthopedic surgery consulted, preop labs ordered and reviewed: mild anemia with H&H 11/34.3, coags within normal limits Consulted pulmonology/cardiology for surgery clearance. Vitamin D level 6 - will discuss with family regarding supplementation Continue Castellanos's traction prior to surgical managment Percocet/morphine for breakthrough pain scale NPO for surgery at this time (3) Fall Code(s): W19.XXXA - Unspecified fall, initial encounter Status: Acute Plan: Family reports that patient often gets lightheaded when standing up quickly which occurred today prior to the fall Denies any loss of consciousness, chest pain or shortness of breath different from baseline EKG on admission showed sinus rhythm with no T-wave inversions Continuous telemetry - no reported events No electrolyte abnormalities, mildly anemic with H&H of 11.0/34.3 UA collected 11/14, showing no evidence of infection. Troponin x 1 negative for evidence of cardiac ischemia Suspect orthostatic etiology of the fall, may need to consider further imaging pending the hospital course (4) CHF (congestive heart failure) Code(s): I50.9 - Heart failure, unspecified Status: Acute Plan: Patient with a known history of CHF. Followed by Dr. Weinstein per family ASCVD with coronary disease and history congestive heart failure by history Pre-hospital EF unknown Echo performed 11/14/17 showing EF 60-65%, severe pulmonary HTN with 76mm Hg pressure Chest x-ray on admission showed abnormal pleural-based thickening and calcification measuring up to 4.9 cm in the left hemithorax possibly associated with a prior left thoracotomy. Diminished size of the left lung possibly from partial prior resection. No signs of pleural effusion. Does not appear to be fluid overloaded on exam EKG on admission was normal Per pharmacognosist report, anticipate clearance for surgery based on clinical picture, risk vs. benefit profile of surgical repair of hip, however echo was pending at their initial evaluation. 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 Probable empyema surgery at age 20. Former smoker. Quit 1 year ago but previously smoked 3-4 packs per day 3-4 L nasal cannula at home, continued while inpatient Nebulizer treatments at home, family cannot confirm the exact medication Duonebs every 4-6 hours as needed for wheezing Pulmonology consulted as he will need surgical clearance. They are following. They recommended Symbicort 160 4.5 mcg 2 puffs daily. Repeat CXR ordered this morning 11/14 pending. Family requested that anesthesia team discuss case with them prior to surgery today, nurse aware and has called surgeon and anesthesiologist. (6) Borderline diabetes mellitus Code(s): R73.03 - Prediabetes Status: Acute Plan: Known history of borderline type 2 diabetes Takes metformin 500 mg p.o. daily Holding home medications for now. Random glucose on admission was 135 Sliding scale Novolog if needed (7) Nutrition, metabolism, and development symptoms Code(s): R63.8 - Other symptoms and signs concerning food and fluid intake Status: Acute Plan: NPO for now pre-operatively. Will resume diet post-operatively as tolerated Electrolytes within normal limits. Will replete as needed No IV fluids at this time SCDs for DVT prophylaxis until surgical plan is established. Pharmacologic anticoagulation indicated postoperatively (usually initiated 24 hr postoperatively) - Assessment and Plan Attending note: patient seen and examined with resident team. 2 d echo did reveal preserved left vent function and increase pulmonary artery pressure consistent with lung disease. Family has multiple concerns and patent's and daughters are in attendance. Patient is to go to OR for rt hip orif by orthopedic surgery. In discussion with daughterTenisha, reviewed that post op patient would most likely need snf rehab and she related that his baseline mental status is one that requires constant attendance as he has developed a dementia. Emphasized that after anesthesia, cn anticipate that confusion will temporarily worsen. Agree with orders as written by resident team. Follow closely post op. Karan Ramírez MD 11/14/17. Attending note: 11/15/2017. 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 Physician and resident physician counseled with the family including , [id number] who has medical background, and daughters in an effort to answer their questions, appreciate his past medical history, explained to them the present clinical findings and plan going forward. At the present time a CTA of the chest has been recommended, family is deciding whether they are comfortable. In counseling the family they express different emotions including anger, and frustration. Will continue on the current clinical course , ensure that all medical staff physicians, nurses and support team are communicating. Karan Ramírez MD 11/15/2017. Attending note assessment 11/16/2017: Very complex patient, status post day 2 left ORIF with intramedullary pinning, severely compromised lungs prior to entry into the hospital secondary to fibrotic scarring and COPD reported to be a smoker up until hospitalization with a dementia described by the family ( difficult to tell to what stage) whose oxygen levels of been reasonably stabilized today on nasal cannula oxygenation. Because of his age, comorbidities his postop course will definitely be a lengthy process, statistically he is at risk for complications that could be life-threatening. Family has many frustrations, expresses anger, and their questions were answered to the best of the team's abilities. Medical team will work with Dr. Vega, the loan servicing specialist and the nursing staff closely. Karan Ramírez MD 2017. Attending note assessment 11/17/2017: Clinically stable, maintaining adequate oxygenation, beginning to take nutrition by mouth. Family currently at bedside appears to understand and have appropriate questions. Appreciate Dr. Vega's note. After 2 units of packed cells transfused slowly over the last 24 hours the patient's hemoglobin is 10.3. Electrolytes are within normal range. Creatinine 0.93. Point of care glucose is ranging in the low 200s. Reviewed chest x-rays. Continue supportive measures. Clinical course will be weeks to months providing there are not new clinical challenges. Discussed with Dr. Vega usage of Diamox with Lasix to address what appears to be some pulmonary fluid. Discussed with resident staff, agree with resident's orders as recorded. Karan Ramírez MD 11/17/2017. Clinical assessment: Postop day 4 left intramedullary pinning for intertrochanteric fracture. Patient with presurgery severe lung disease and pulmonary hypertension. Maintaining oxygen saturation, nutrition has been reestablished, recommend increasing activity to be out of the chair and start actively working with PT and OT. Discharge planning per resources available. Case discussed with Dr. Sorto, loan servicing specialist. Case discussed with resident team and agree with orders as written by the resident. Karan Ramírez MD 11/18/2017.
[2017-11-18] MEDS: Enoxaparin Inj 40 MG/0.4 ML Syringe SQ SCH (12:21)
--- NOTE | 2017-11-18 17:35 | P.PN ---
Subjective Interval history: Sitting up and seems comfortable. On High Flow O2 at 60 %. Not able to move his hip well. Physical Exam Vital signs: Vital Signs 11/17/17 19:26 11/17/17 20:00 11/17/17 22:00 Temperature 97.7 F Pulse Rate 103 H 107 H 103 H Respiratory Rate 22 27 H Blood Pressure 143/62 H Pulse Oximetry 95 93 L 11/17/17 23:08 11/18/17 00:00 11/18/17 02:00 Temperature 98.2 F Pulse Rate 107 H 104 H 96 H Respiratory Rate 24 24 Blood Pressure 153/66 H Pulse Oximetry 92 L 11/18/17 03:15 11/18/17 04:00 11/18/17 06:00 Temperature 98.3 F Pulse Rate 93 H 96 H 92 H Respiratory Rate 20 18 Blood Pressure 137/85 Pulse Oximetry 94 L 11/18/17 07:23 11/18/17 08:00 11/18/17 10:00 Temperature 97.9 F Pulse Rate 88 90 93 H Respiratory Rate 24 27 H Blood Pressure 118/58 L Pulse Oximetry 94 L 94 L 11/18/17 11:16 11/18/17 12:00 11/18/17 14:00 Temperature 98.3 F Pulse Rate 92 H 101 H 93 H Respiratory Rate 25 H 39 H Blood Pressure 140/82 Pulse Oximetry 90 L 11/18/17 15:02 11/18/17 16:00 Temperature 98.1 F Pulse Rate 97 H 97 H Respiratory Rate 24 30 H Blood Pressure 124/60 Pulse Oximetry 91 L Intake & Output 11/17/17 11/18/17 11/18/17 18:59 06:59 18:59 Intake Total 850 / 850 100 / 100 Output Total 1000 / 1000 Balance -150 / -150 100 / 100 Weight 72.5 kg Intake: IV 350 / 350 100 / 100 Maxipime Inj 2,000 MG In NS Inj 100 / 100 100 / 100 100 ML @ 200 mls/hr IV.SIG Q12H NOAH Rx#:[id number] Oral 500 / 500 Output: Urine 1000 / 1000 Stool 0 / 0 Urine/Stool Mix 0 / 0 Other: # Bowel Movements 0 GENERAL: Elderly W/m alert. SKIN: Warm and dry. HEAD: Atraumatic. Normocephalic. EYES: Pupils equal and round. No scleral icterus. No injection or drainage. ENT: No nasal bleeding or discharge. Mucous membranes pink and moist. NECK: Trachea midline. No JVD. CARDIOVASCULAR: Regular rate and rhythm. RESPIRATORY: No accessory muscle use. Bilateral wheeze and Breath sounds equal bilaterally. GASTROINTESTINAL: Abdomen soft, non-tender, nondistended. Hepatic and splenic margins not palpable. MUSCULOSKELETAL: Extremities without clubbing, cyanosis, or edema. No obvious deformities. NEUROLOGICAL: Awake and alert. No obvious cranial nerve deficits. Motor grossly within normal limits. Five out of 5 muscle strength in the arms and legs. Normal speech. PSYCHIATRIC: Appropriate mood and affect. - Urinary Catheter Management Indwelling Urethral Catheter Cath placed during this visit: no Results - Labs CBC & Chem 7: 11/18/17 03:41 11/18/17 03:41 Laboratory Results - last 24 hr 11/17/17 11/18/17 11/18/17 20:13 03:41 03:41 WBC 10.8 RBC 3.58 L Hgb 11.0 L Hct 32.5 L MCV 90.7 MCH 30.6 MCHC 33.7 RDW 15.6 Plt Count 127 L MPV 8.6 Sodium 140 Potassium 3.5 Chloride 97 L Carbon Dioxide 36.6 H Anion Gap 6 BUN 34 H Creatinine 1.23 Estimated GFR 56 L POC Glucose 187 H Random Glucose 103 D Calcium 7.7 L Magnesium 2.0 11/18/17 11/18/17 11/18/17 08:22 12:18 17:00 WBC RBC Hgb Hct MCV MCH MCHC RDW Plt Count MPV Sodium Potassium Chloride Carbon Dioxide Anion Gap BUN Creatinine Estimated GFR POC Glucose 107 127 H 166 H Random Glucose Calcium Magnesium Microbiology 11/16/17 18:50 Blood - Peripheral Aerobic Blood Culture - Preliminary No growth in 2 days 11/16/17 18:50 Blood - Peripheral Anaerobic Blood Culture - Preliminary No growth in 2 days 11/16/17 18:40 Blood - Peripheral Aerobic Blood Culture - Preliminary No growth in 2 days 11/16/17 18:40 Blood - Peripheral Anaerobic Blood Culture - Preliminary No growth in 2 days Assessment and Plan - Assessment (1) CHF (congestive heart failure) Code(s): I50.9 - Heart failure, unspecified Status: Acute (2) Emphysema of lung Code(s): J43.9 - Emphysema, unspecified Status: Acute (3) Borderline diabetes mellitus Code(s): R73.03 - Prediabetes Status: Acute (4) Fracture, intertrochanteric, left femur Code(s): S72.142A - Displaced intertrochanteric fracture of left femur, initial encounter for closed fracture Status: Acute (5) Nutrition, metabolism, and development symptoms Code(s): R63.8 - Other symptoms and signs concerning food and fluid intake Status: Acute (6) Fall Code(s): W19.XXXA - Unspecified fall, initial encounter Status: Acute (7) Cor pulmonale (chronic) Code(s): I27.81 - Cor pulmonale (chronic) Status: Acute (8) Pulmonary hypertension assoc with unclear multi-factorial mechanisms Code(s): I27.29 - Other secondary pulmonary hypertension Status: Acute - Plan 1. Will, leave on O2 N/C High Flow and wean to N/C 2. Nebs qid duoneb. 3. BIPAP 12/5 cm FIO2 30 % at HS and PRN. Pt refused. 4. Duoneb nebs qid. 5. Continue S/Q lovenox 6. CBC,BMP in am 7. PT evaluation and IS at bedside 8. Symbicort 160/4.5 mcg , 2 puffs BID 9. Continue Cefipime IV 2 G BID
[2017-11-18] MEDS ORDERED: Haloperidol Inj 5 MG/ML Ampul IV.PUSH PRN (18:32)
--- NOTE | 2017-11-18 18:35 | P.PNCC ---
Subjective Subjective Remarks/Hospital Course: subjective: 11/16: long discussion with family on multiple occasions today: some improvements in subjective dyspnea, but still high fio2 requirements. hgb dropped to 5.5 this AM, receiving 2 units prbc: most likely dilutional from pre- operative losses due to fracture. no melena or other signs of active bleeding. 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 11/17: hgb responded appropriately to transfusion yesterday. now improving. appears slightly volume overloaded today and actively diuresing. o2 requirements slightly better. subjective improvements in dyspnea. 11/18: fio2 remains at 70% on high flow NC. would benefit from LTAC for pulmonary rehab. needs PT. some delirium overnight, most likely ICU delirium. will add melatonin for sleep tonight, and may require gentle haldol for persistent agitation. Objective Vital Signs / I&O: Vital Signs 11/17/17 19:26 11/17/17 20:00 11/17/17 22:00 Temperature 36.5 C Pulse Rate 103 H 107 H 103 H Respiratory Rate 22 27 H Blood Pressure 143/62 H Pulse Oximetry 95 93 L 11/17/17 23:08 11/18/17 00:00 11/18/17 02:00 Temperature 36.8 C Pulse Rate 107 H 104 H 96 H Respiratory Rate 24 24 Blood Pressure 153/66 H Pulse Oximetry 92 L 11/18/17 03:15 11/18/17 04:00 11/18/17 06:00 Temperature 36.8 C Pulse Rate 93 H 96 H 92 H Respiratory Rate 20 18 Blood Pressure 137/85 Pulse Oximetry 94 L 11/18/17 07:23 11/18/17 08:00 11/18/17 10:00 Temperature 36.6 C Pulse Rate 88 90 93 H Respiratory Rate 24 27 H Blood Pressure 118/58 L Pulse Oximetry 94 L 94 L 11/18/17 11:16 11/18/17 12:00 11/18/17 14:00 Temperature 36.8 C Pulse Rate 92 H 101 H 93 H Respiratory Rate 25 H 39 H Blood Pressure 140/82 Pulse Oximetry 90 L 11/18/17 15:02 11/18/17 16:00 Temperature 36.7 C Pulse Rate 97 H 97 H Respiratory Rate 24 30 H Blood Pressure 124/60 Pulse Oximetry 91 L Intake & Output 11/17/17 11/18/17 11/18/17 18:59 06:59 18:59 Intake Total 850 / 850 100 / 100 480 / 480 Output Total 1000 / 1000 800 / 800 Balance -150 / -150 100 / 100 -320 / -320 Weight 72.5 kg Intake: IV 350 / 350 100 / 100 Maxipime Inj 2,000 MG In NS Inj 100 / 100 100 / 100 100 ML @ 200 mls/hr IV.SIG Q12H [facility] Rx#:[id number] Oral 500 / 500 480 / 480 Output: Urine 1000 / 1000 800 / 800 Stool 0 / 0 Urine/Stool Mix 0 / 0 Other: # Bowel Movements 0 0 Result Diagrams: 11/18/17 03:41 11/18/17 03:41 Objective Remarks: gen: frail eldery male, lying in bed, some respiratory distress, although appears improved from prior documented exams. heent: nc. at. perrl. mmm. neck: no jvd. trachea midline. chest: mildly tachypneic. coarse BS throughout. high flow NC on 60% fio2. 35 LPM. cv: normal rate, regular rhythm. sinus. abd: soft, nontender, nondistended. no guarding. extr: no edema. distal pulses 2+. trochanteric incision c/d/i. no hematoma. neuro: RASS +1. CAM+. more confused today. follows commands. no focal deficits. 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 remains high risk for further decompensation. I have had several discussions with family where I reiterate how ill he is and how if he were to decompensate requiring mechanical ventilation and life-support, I do not think he will successfully separate from mechanical support. However, they urge for aggressive measures and FULL CODE code status. highly complex. would certainly benefit from LTAC level care, and is ready for discharge to that level care if able from insurance/bed availability. NEURO: Acute delirium, multifactorial but likely secondary to hypoxia and hypercapnia. - worse today Postoperative pain. Oxycodone prn pain. add melatonin for sleep add haldol 1mg iv q1h prn for agitation. Fall MSK: L inter trochanteric femur fracture status post IM nail 11/[address] Robertson RESP: Acute hypoxemic and hypercapnic respiratory failure- persistent History of left lower lobectomy end-stage Pulmonary fibrosis Bronchiectasis end-stage COPD Former tobacco abuse continuous 24h home oxygen dependence Agree with high flow NC. family understands he may require intubation, and they wish to pursue full aggressive measures. DuoNeb every 4 hours. Albuterol every 2 hours as needed Solumedrol 40 mg IV q12 hours CXR with chronic left pleural thickening, consolidation right base f/u cultures. continue abx. Has had outpatient CT per Dr. Myers which demonstrates pulmonary fibrosis and bronchiectasis. BLE us negative for DVT. VQ scan with ventilation abnormalities>perfusion abnormalities in left lower lobe, pattern not typical of PE and likely related to lobectomy. I would not recommend therapeutic anticoagulation at this point. Avoid CTA based on worsening renal indices and Dr. Myers discussed with family who did not wish to assume risk of IV contrast. Pulmonology following, Dr. Myers. 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 Diuresis with Lasix 40 mg IV daily. GI: Ice chips/clear liquids until respiratory status improved. FEN/RENAL: Continue Bethea for close monitoring of urinary output. Monitor electrolytes and replace as indicated per ICU protocol. aggressive diuresis with 2 doses of lasix today and 1 dose diamox to mitigate alkalosis which is developing. ID: Send sputum and blood cultures. Received dose of vancomycin. Will initiate cefepime. HEME: Anemia secondary to acute blood loss 2 units prbc 11/16. trend cbc most likely secondary to pre-op bleeding from fracture and now dilutional. unlikely to have ongoing active bleeding. will monitor.clinically improving. ENDO: Diabetes with acute hyperglycemia while on steroids Hold metformin Monitor bedside glucose every 6 hours and initiate low-dose insulin sliding scale as indicated. PROPH: Lovenox 40 mg subcu daily for DVT prophylaxis. SCDs in place. Protonix for stress ulcer prophylaxis. discussed at length with family the risks and benefits of continuing vs. holding lovenox. no active bleeding. high risk for DVT formation, and acute PE would be a non-survivable event for this patient. will continue Lovenox. family understands and agrees to proceed with this plan. ACCESS: PIV Patient is critically ill with acute hypercapneic and hypoxemic respiratory failure, severe pulmonary HTN that pose threat to life. He is at high risk of further deterioration including intubation and mechanical ventilation. Will remain in ICU.
[2017-11-18] MEDS: Melatonin 5 MG Tablet PO SCH (20:25)
[2017-11-19] MEDS: Chlorhexidine Gluconate 2% 1 Pack (2 Cloths) TOPICAL SCH (04:12)
[2017-11-19 07:13] LABS: Hematocrit 31.6 % (39.0-51.0); Hemoglobin 10.9 gm/dL (13.0-17.0); Mean Corpuscular HGB Conc 34.4 % (32.0-36.0); Mean Corpuscular Hemoglobin 30.9 pg (27.0-34.0); Mean Corpuscular Volume 89.8 fL (80.0-100.0); Mean Platelet Volume 8.5 fL (7.0-11.0); Platelet Count 124 th/mm3 (150-450); Red Blood Count 3.52 mil/mm3 (4.50-5.90); Red Cell Distribution Width 15.6 % (11.6-17.2); White Blood Count 9.7 th/mm3 (4.0-11.0)
[2017-11-19 07:39] LABS: Carbon Dioxide 32.7 meq/L (21.0-32.0)
[2017-11-19 07:52] LABS: Calcium 7.8 mg/dL (8.5-10.1)
[2017-11-19 07:53] LABS: Potassium 3.9 meq/L (3.5-5.1)
--- NOTE | 2017-11-19 08:20 | P.PNOP ---
Subjective Interval history: family in room. did better last night. Physical Exam Vital signs: Vital Signs 11/18/17 10:00 11/18/17 11:16 11/18/17 12:00 Temperature 98.3 F Pulse Rate 93 H 92 H 101 H Respiratory Rate 25 H 39 H Blood Pressure 140/82 Pulse Oximetry 90 L 11/18/17 14:00 11/18/17 15:02 11/18/17 16:00 Temperature 98.1 F Pulse Rate 93 H 97 H 97 H Respiratory Rate 24 30 H Blood Pressure 124/60 Pulse Oximetry 91 L 11/18/17 18:00 11/18/17 19:50 11/18/17 20:00 Temperature 98.4 F Pulse Rate 96 H 97 H 100 H Respiratory Rate 28 H 22 Blood Pressure 138/63 Pulse Oximetry 97 95 11/18/17 22:00 11/18/17 23:12 11/18/17 23:13 Temperature Pulse Rate 108 H 101 H Respiratory Rate 22 Blood Pressure Pulse Oximetry 94 L 11/19/17 00:00 11/19/17 02:00 11/19/17 03:27 Temperature Pulse Rate 107 H 98 H 101 H Respiratory Rate 22 24 Blood Pressure 135/63 Pulse Oximetry 92 L 93 L 11/19/17 04:00 11/19/17 06:00 11/19/17 07:39 Temperature 98.1 F Pulse Rate 104 H 101 H 105 H Respiratory Rate 22 24 Blood Pressure 149/68 H Pulse Oximetry 92 L 92 L Intake & Output 11/18/17 11/19/17 11/19/17 18:59 06:59 18:59 Intake Total 580 / 580 1930 / 1930 Output Total 800 / 800 550 / 550 Balance -220 / -220 1380 / 1380 Weight 71 kg Intake: IV 100 / 100 1450 / 1450 Maxipime Inj 2,000 MG In NS Inj 100 / 100 100 / 100 100 ML @ 200 mls/hr IV.SIG Q12H [facility] Rx#:[id number] Oral 480 / 480 480 / 480 Output: Urine 800 / 800 Urine/Stool Mix 0 / 0 Urine Amount (Catheter) 550 / 550 Indwelling Urethral Catheter 550 / 550 Other: # Bowel Movements 0 0 # Incontinent Bowel Movements 0 Narrative: in bed, nad, nasal cannula in place L hip dressing c/d/i ecchymosis posteriorly thigh soft neg homans nvi - Urinary Catheter Management Indwelling Urethral Catheter Cath placed during this visit: no Results - Labs CBC & Chem 7: 11/19/17 06:26 11/19/17 06:26 Laboratory Results - last 24 hr 11/18/17 11/18/17 11/18/17 08:22 12:18 17:00 WBC RBC Hgb Hct MCV MCH MCHC RDW Plt Count MPV Sodium Potassium Chloride Carbon Dioxide Anion Gap BUN Creatinine Estimated GFR POC Glucose 107 127 H 166 H Random Glucose Calcium Magnesium 11/19/17 11/19/17 11/19/17 06:26 06:26 08:01 WBC 9.7 RBC 3.52 L Hgb 10.9 L Hct 31.6 L MCV 89.8 MCH 30.9 MCHC 34.4 RDW 15.6 Plt Count 124 L MPV 8.5 Sodium 138 Potassium 3.9 Chloride 97 L Carbon Dioxide 32.7 H Anion Gap 8 BUN 32 H Creatinine 0.90 Estimated GFR 81 L POC Glucose 171 H Random Glucose 144 H Calcium 7.8 L Magnesium 2.0 Microbiology 11/16/17 18:50 Blood - Peripheral Aerobic Blood Culture - Preliminary No growth in 2 days 11/16/17 18:50 Blood - Peripheral Anaerobic Blood Culture - Preliminary No growth in 2 days 11/16/17 18:40 Blood - Peripheral Aerobic Blood Culture - Preliminary No growth in 2 days 11/16/17 18:40 Blood - Peripheral Anaerobic Blood Culture - Preliminary No growth in 2 days Assessment and Plan - Ortho Post Op Day # 5 - Assessment and Plan pod 5 sp left troch nail pt in the medical ICU due to respiratory distress, needing support multiple medical comorbidities with copd, cad plan transfused prbc Thursday xray left knee due to knee swelling - no sign of fracture, discussed with family - ROM as tolerated I have discussed findings and current plan with family and at bedside, all questions were answered lovenox and scd for dvt prophylaxis physical therapy 50-% pwb LLE ok to be OOB and into chair per ortho, if ok with medical will need snf when medicably cleared for discharge ortho stable f/up dr. schumacher 2 weeks
[2017-11-19] MEDS: Potassium Chloride 10 MEQ ER Capsule PO SCH (09:32)
[2017-11-19] MEDS: Folic Acid 1 MG Tablet PO SCH (09:32)
[2017-11-19] MEDS: Multivitamin/Minerals Therapeutic Tablet PO SCH (09:32)
[2017-11-19] MEDS: Senna/Docusate Sodium 8.6/50 MG Tablet PO SCH ×2 (09:32→21:02)
--- NOTE | 2017-11-19 10:10 | P.PNFP ---
Subjective Interval history: Patient seen with resident team. Discussed with nursing staff and Dr. Sorto. Occupational Therapy at bedside, family reports that the patient is doing reasonably well. There is a concern about some right upper anterior chest pain over the last day. Family anxious to see patient proceed with physical therapy and getting out of bed. Family reports patient passing flatus, no bowel movement according to the family. They report his nutrition is good. Plans are being made for transfer to a facility equipped to handle oxygen dependent patient's. Awaiting determination from insurance company. Results - Labs Result diagrams: 11/19/17 06:26 11/19/17 06:26 Abnormal lab results 11/18/17 11/18/17 11/19/17 Range/Units 12:18 17:00 06:26 RBC 3.52 L (4.50-5.90) mil/mm3 Hgb 10.9 L (13.0-17.0) gm/dL Hct 31.6 L (39.0-51.0) % Plt Count 124 L (150-450) th/mm3 Chloride (98-107) meq/L Carbon Dioxide (21.0-32.0) meq/L BUN (7-18) mg/dL Estimated GFR (>89) mL/min POC Glucose 127 H 166 H (68-110) mg/dl Random Glucose (74-106) mg/dL Calcium (8.5-10.1) mg/dL 11/19/17 11/19/17 Range/Units 06:26 08:01 RBC (4.50-5.90) mil/mm3 Hgb (13.0-17.0) gm/dL Hct (39.0-51.0) % Plt Count (150-450) th/mm3 Chloride 97 L (98-107) meq/L Carbon Dioxide 32.7 H (21.0-32.0) meq/L BUN 32 H (7-18) mg/dL Estimated GFR 81 L (>89) mL/min POC Glucose 171 H (68-110) mg/dl Random Glucose 144 H (74-106) mg/dL Calcium 7.8 L (8.5-10.1) mg/dL Short CBC 11/19/17 Range/Units 06:26 WBC 9.7 (4.0-11.0) th/mm3 Hgb 10.9 L (13.0-17.0) gm/dL Hct 31.6 L (39.0-51.0) % Plt Count 124 L (150-450) th/mm3 BMP 11/19/17 06:26 Sodium 138 Potassium 3.9 Chloride 97 L Carbon Dioxide 32.7 H BUN 32 H Creatinine 0.90 Calcium 7.8 L Physical Exam Vital signs: Vital Signs 11/18/17 11:16 11/18/17 12:00 11/18/17 14:00 Temperature 98.3 F Pulse Rate 92 H 101 H 93 H Respiratory Rate 25 H 39 H Blood Pressure 140/82 Pulse Oximetry 90 L 11/18/17 15:02 11/18/17 16:00 11/18/17 18:00 Temperature 98.1 F Pulse Rate 97 H 97 H 96 H Respiratory Rate 24 30 H Blood Pressure 124/60 Pulse Oximetry 91 L 11/18/17 19:50 11/18/17 20:00 11/18/17 22:00 Temperature 98.4 F Pulse Rate 97 H 100 H 108 H Respiratory Rate 28 H 22 Blood Pressure 138/63 Pulse Oximetry 97 95 11/18/17 23:12 11/18/17 23:13 11/19/17 00:00 Temperature Pulse Rate 101 H 107 H Respiratory Rate 22 22 Blood Pressure 135/63 Pulse Oximetry 94 L 92 L 11/19/17 02:00 11/19/17 03:27 11/19/17 04:00 Temperature 98.1 F Pulse Rate 98 H 101 H 104 H Respiratory Rate 24 22 Blood Pressure 149/68 H Pulse Oximetry 93 L 92 L 11/19/17 06:00 11/19/17 07:39 Temperature Pulse Rate 101 H 105 H Respiratory Rate 24 Blood Pressure Pulse Oximetry 92 L Intake & Output 11/18/17 11/19/17 11/19/17 18:59 06:59 18:59 Intake Total 580 / 580 1930 / 1930 Output Total 800 / 800 550 / 550 Balance -220 / -220 1380 / 1380 Weight 71 kg Intake: IV 100 / 100 1450 / 1450 Maxipime Inj 2,000 MG In NS Inj 100 / 100 100 / 100 100 ML @ 200 mls/hr IV.SIG Q12H [facility] Rx#:[id number] Oral 480 / 480 480 / 480 Output: Urine 800 / 800 Urine/Stool Mix 0 / 0 Urine Amount (Catheter) 550 / 550 Indwelling Urethral Catheter 550 / 550 Other: # Bowel Movements 0 0 # Incontinent Bowel Movements 0 Narrative: Vital signs: Temperature 98.1: Pulse 105 in sinus rhythm. Respirations 24 blood pressure 149/68, generally have been running in acceptable range. General appearance: Each day the patient appears more alert and interactive and working with OT at time of exam. HEENT: Nonlocalizing, nasal cannula with oxygen in place. Lungs: Superiorly of the lungs brown there is good aeration, posteriorly diminished aeration especially on the left side, lesser on the right. No localized wheezes appreciated Cardiac: S1-S2, no S3 or significant murmurs. Abdomen: Soft, no tenderness, no masses, no organomegaly evident. Extremities hands are warm and dry. Feet are warm and dry. Sequential hose in place. NAYELY as recorded reveals a +1160 over the last 24 hours. CB hemoglobin 10.9, white blood cell count 9700, platelets 124,000. BMP-sodium 138, potassium 3.9, creatinine 0.9, BUN 32, POC glucoses in the mid 100s and lower. - Urinary Catheter Management Indwelling Urethral Catheter Cath placed during this visit: no Assessment and Plan - Assessment (1) Respiratory distress Code(s): R06.03 - Acute respiratory distress Status: Acute (2) Fracture, intertrochanteric, left femur Code(s): S72.142A - Displaced intertrochanteric fracture of left femur, initial encounter for closed fracture Status: Acute Plan: Patient came to the ED after a witnessed fall 11/13/17. X-ray of the hip showed intertrochanteric fracture on the left and osteopenia. Orthopedic surgery consulted, preop labs ordered and reviewed: mild anemia with H&H 11/34.3, coags within normal limits Consulted pulmonology/cardiology for surgery clearance. Vitamin D level 6 - will discuss with family regarding supplementation Continue Castellanos's traction prior to surgical managment Percocet/morphine for breakthrough pain scale NPO for surgery at this time (3) Fall Code(s): W19.XXXA - Unspecified fall, initial encounter Status: Acute Plan: Family reports that patient often gets lightheaded when standing up quickly which occurred today prior to the fall Denies any loss of consciousness, chest pain or shortness of breath different from baseline EKG on admission showed sinus rhythm with no T-wave inversions Continuous telemetry - no reported events No electrolyte abnormalities, mildly anemic with H&H of 11.0/34.3 UA collected 11/14, showing no evidence of infection. Troponin x 1 negative for evidence of cardiac ischemia Suspect orthostatic etiology of the fall, may need to consider further imaging pending the hospital course (4) CHF (congestive heart failure) Code(s): I50.9 - Heart failure, unspecified Status: Acute Plan: Patient with a known history of CHF. Followed by Dr. Weinstein per family ASCVD with coronary disease and history congestive heart failure by history Pre-hospital EF unknown Echo performed 11/14/17 showing EF 60-65%, severe pulmonary HTN with 76mm Hg pressure Chest x-ray on admission showed abnormal pleural-based thickening and calcification measuring up to 4.9 cm in the left hemithorax possibly associated with a prior left thoracotomy. Diminished size of the left lung possibly from partial prior resection. No signs of pleural effusion. Does not appear to be fluid overloaded on exam EKG on admission was normal Per office technology professor report, anticipate clearance for surgery based on clinical picture, risk vs. benefit profile of surgical repair of hip, however echo was pending at their initial evaluation. 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 Probable empyema surgery at age 20. Former smoker. Quit 1 year ago but previously smoked 3-4 packs per day 3-4 L nasal cannula at home, continued while inpatient Nebulizer treatments at home, family cannot confirm the exact medication Duonebs every 4-6 hours as needed for wheezing Pulmonology consulted as he will need surgical clearance. They are following. They recommended Symbicort 160 4.5 mcg 2 puffs daily. Repeat CXR ordered this morning 11/14 pending. Family requested that anesthesia team discuss case with them prior to surgery today, nurse aware and has called surgeon and anesthesiologist. (6) Borderline diabetes mellitus Code(s): R73.03 - Prediabetes Status: Acute Plan: Known history of borderline type 2 diabetes Takes metformin 500 mg p.o. daily Holding home medications for now. Random glucose on admission was 135 Sliding scale Novolog if needed (7) Nutrition, metabolism, and development symptoms Code(s): R63.8 - Other symptoms and signs concerning food and fluid intake Status: Acute Plan: NPO for now pre-operatively. Will resume diet post-operatively as tolerated Electrolytes within normal limits. Will replete as needed No IV fluids at this time SCDs for DVT prophylaxis until surgical plan is established. Pharmacologic anticoagulation indicated postoperatively (usually initiated 24 hr postoperatively) - Assessment and Plan Attending note: patient seen and examined with resident team. 2 d echo did reveal preserved left vent function and increase pulmonary artery pressure consistent with lung disease. Family has multiple concerns and patent's and daughters are in attendance. Patient is to go to OR for rt hip orif by orthopedic surgery. In discussion with daughter, Tenisha, reviewed that post op patient would most likely need snf rehab and she related that his baseline mental status is one that requires constant attendance as he has developed a dementia. Emphasized that after anesthesia, cn anticipate that confusion will temporarily worsen. Agree with orders as written by resident team. Follow closely post op. Karan Ramírez MD 11/14/17. Attending note: 11/15/2017. 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 Physician and resident physician counseled with the family including , [id number] who has medical background, and daughters in an effort to answer their questions, appreciate his past medical history, explained to them the present clinical findings and plan going forward. At the present time a CTA of the chest has been recommended, family is deciding whether they are comfortable. In counseling the family they express different emotions including anger, and frustration. Will continue on the current clinical course , ensure that all medical staff physicians, nurses and support team are communicating. Karan Ramírez MD 11/15/2017. Attending note assessment 11/16/2017: Very complex patient, status post day 2 left ORIF with intramedullary pinning, severely compromised lungs prior to entry into the hospital secondary to fibrotic scarring and COPD reported to be a smoker up until hospitalization with a dementia described by the family ( difficult to tell to what stage) whose oxygen levels of been reasonably stabilized today on nasal cannula oxygenation. Because of his age, comorbidities his postop course will definitely be a lengthy process, statistically he is at risk for complications that could be life-threatening. Family has many frustrations, expresses anger, and their questions were answered to the best of the team's abilities. Medical team will work with Dr. Vega, the duplicator punch operator and the nursing staff closely. Karan Ramírez MD 2017. Attending note assessment 11/17/2017: Clinically stable, maintaining adequate oxygenation, beginning to take nutrition by mouth. Family currently at bedside appears to understand and have appropriate questions. Appreciate Dr. Vega's note. After 2 units of packed cells transfused slowly over the last 24 hours the patient's hemoglobin is 10.3. Electrolytes are within normal range. Creatinine 0.93. Point of care glucose is ranging in the low 200s. Reviewed chest x-rays. Continue supportive measures. Clinical course will be weeks to months providing there are not new clinical challenges. Discussed with Dr. Vega usage of Diamox with Lasix to address what appears to be some pulmonary fluid. Discussed with resident staff, agree with resident's orders as recorded. Karan Ramírez MD 11/17/2017. Clinical assessment: Postop day 4 left intramedullary pinning for intertrochanteric fracture. Patient with presurgery severe lung disease and pulmonary hypertension. Maintaining oxygen saturation, nutrition has been reestablished, recommend increasing activity to be out of the chair and start actively working with PT and OT. Discharge planning per resources available. Case discussed with Dr. Sorto, duplicator punch operator. Case discussed with resident team and agree with orders as written by the resident. Karan Ramírez MD 11/18/2017. Clinical assessment: Postop day 5, continues to become more awake and alert and interactive and momentum progressing toward discharge. Anticipate increased activity with PT, family may bring in some [place] food if this might be a morale booster. Discussed with Dr. Vega and the resident team, agree with orders as written by the resident team. Karan Ramírez MD 11/19/2017.
--- NOTE | 2017-11-19 11:58 | P.PNCC ---
Subjective Subjective Remarks/Hospital Course: subjective: 11/16: long discussion with family on multiple occasions today: some improvements in subjective dyspnea, but still high fio2 requirements. hgb dropped to 5.5 this AM, receiving 2 units prbc: most likely dilutional from pre- operative losses due to fracture. no melena or other signs of active bleeding. 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 11/17: hgb responded appropriately to transfusion yesterday. now improving. appears slightly volume overloaded today and actively diuresing. o2 requirements slightly better. subjective improvements in dyspnea. 11/18: fio2 remains at 70% on high flow NC. would benefit from LTAC for pulmonary rehab. needs PT. some delirium overnight, most likely ICU delirium. will add melatonin for sleep tonight, and may require gentle haldol for persistent agitation. 11/19: no improvements in fio2. OOB to chair this AM and subjectively feels better. insurance denied LTAC transfer. family requests transfer to [facility] as it is in-network and they feel more comfortable with that facility, and I have called the transfer center to initiate that process. The family also requests appeal for LTAC authorization. I agree that LTAC provides the most appropriate level of care at this time: patient unable to perform necessary rehab efforts for inpt rehab and too high risk for SNF. however, LTAC can provide level of pulmonary and physical rehab far superior to inpatient ICU rehab abilities and can provide all the appropriate level of medical care at this time. Objective Vital Signs / I&O: Vital Signs 11/18/17 12:00 11/18/17 14:00 11/18/17 15:02 Temperature 36.8 C Pulse Rate 101 H 93 H 97 H Respiratory Rate 39 H 24 Blood Pressure 140/82 Pulse Oximetry 90 L 11/18/17 16:00 11/18/17 18:00 11/18/17 19:50 Temperature 36.7 C Pulse Rate 97 H 96 H 97 H Respiratory Rate 30 H 28 H Blood Pressure 124/60 Pulse Oximetry 91 L 97 11/18/17 20:00 11/18/17 22:00 11/18/17 23:12 Temperature 36.9 C Pulse Rate 100 H 108 H 101 H Respiratory Rate 22 22 Blood Pressure 138/63 Pulse Oximetry 95 11/18/17 23:13 11/19/17 00:00 11/19/17 02:00 Temperature Pulse Rate 107 H 98 H Respiratory Rate 22 Blood Pressure 135/63 Pulse Oximetry 94 L 92 L 11/19/17 03:27 11/19/17 04:00 11/19/17 06:00 Temperature 36.7 C Pulse Rate 101 H 104 H 101 H Respiratory Rate 24 22 Blood Pressure 149/68 H Pulse Oximetry 93 L 92 L 11/19/17 07:39 11/19/17 08:00 11/19/17 10:00 Temperature 36.7 C Pulse Rate 105 H 101 H 120 H Respiratory Rate 24 33 H Blood Pressure 130/60 Pulse Oximetry 92 L 95 Intake & Output 11/18/17 11/19/17 11/19/17 18:59 06:59 18:59 Intake Total 580 / 580 1930 / 1930 Output Total 800 / 800 550 / 550 Balance -220 / -220 1380 / 1380 Weight 71 kg Intake: IV 100 / 100 1450 / 1450 Maxipime Inj 2,000 MG In NS Inj 100 / 100 100 / 100 100 ML @ 200 mls/hr IV.SIG Q12H [facility] Rx#:[id number] Oral 480 / 480 480 / 480 Output: Urine 800 / 800 Urine/Stool Mix 0 / 0 Urine Amount (Catheter) 550 / 550 Indwelling Urethral Catheter 550 / 550 Other: # Bowel Movements 0 0 # Incontinent Bowel Movements 0 Result Diagrams: 11/19/17 06:26 11/19/17 06:26 Objective Remarks: gen: frail eldery male, lying in bed, some respiratory distress, although appears improved from prior documented exams. heent: nc. at. perrl. mmm. neck: no jvd. trachea midline. chest: mildly tachypneic. coarse BS throughout. high flow NC on 60% fio2. 35 LPM. cv: normal rate, regular rhythm. sinus. abd: soft, nontender, nondistended. no guarding. extr: no edema. distal pulses 2+. trochanteric incision c/d/i. no hematoma. neuro: RASS +1. CAM+. more confused today. follows commands. no focal deficits. 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 remains high risk for further decompensation. I have had several discussions with family where I reiterate how ill he is and how if he were to decompensate requiring mechanical ventilation and life-support, I do not think he will successfully separate from mechanical support. However, they urge for aggressive measures and FULL CODE code status. highly complex. would certainly benefit from LTAC level care, and is ready for discharge to that level care if able from insurance/bed availability. At family's request, will work towards transfer to [facility] if they accept. NEURO: Acute delirium, multifactorial but likely secondary to hypoxia and hypercapnia. - worse today Postoperative pain. Oxycodone prn pain. add melatonin for sleep add haldol 1mg iv q1h prn for agitation. Fall MSK: L inter trochanteric femur fracture status post IM nail 11/[address] Robertson RESP: Acute hypoxemic and hypercapnic respiratory failure- persistent History of left lower lobectomy end-stage Pulmonary fibrosis Bronchiectasis end-stage COPD Former tobacco abuse continuous 24h home oxygen dependence Agree with high flow NC. family understands he may require intubation, and they wish to pursue full aggressive measures. DuoNeb every 4 hours. Albuterol every 2 hours as needed Solumedrol 40 mg IV q12 hours CXR with chronic left pleural thickening, consolidation right base f/u cultures. continue abx. Has had outpatient CT per Dr. Myers which demonstrates pulmonary fibrosis and bronchiectasis. BLE us negative for DVT. VQ scan with ventilation abnormalities>perfusion abnormalities in left lower lobe, pattern not typical of PE and likely related to lobectomy. I would not recommend therapeutic anticoagulation at this point. Avoid CTA based on worsening renal indices and Dr. Myers discussed with family who did not wish to assume risk of IV contrast. Pulmonology following, Dr. Myers. 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 Diuresis with Lasix 40 mg IV daily. GI: Ice chips/clear liquids until respiratory status improved. FEN/RENAL: Continue Bethea for close monitoring of urinary output. Monitor electrolytes and replace as indicated per ICU protocol. aggressive diuresis with 2 doses of lasix today and 1 dose diamox to mitigate alkalosis which is developing. ID: Send sputum and blood cultures. Received dose of vancomycin. Will initiate cefepime. HEME: Anemia secondary to acute blood loss 2 units prbc 11/16. trend cbc most likely secondary to pre-op bleeding from fracture and now dilutional. unlikely to have ongoing active bleeding. will monitor.clinically improving. ENDO: Diabetes with acute hyperglycemia while on steroids Hold metformin Monitor bedside glucose every 6 hours and initiate low-dose insulin sliding scale as indicated. PROPH: Lovenox 40 mg subcu daily for DVT prophylaxis. SCDs in place. Protonix for stress ulcer prophylaxis. discussed at length with family the risks and benefits of continuing vs. holding lovenox. no active bleeding. high risk for DVT formation, and acute PE would be a non-survivable event for this patient. will continue Lovenox. family understands and agrees to proceed with this plan. ACCESS: PIV Patient is critically ill with acute hypercapneic and hypoxemic respiratory failure, severe pulmonary HTN that pose threat to life. He is at high risk of further deterioration including intubation and mechanical ventilation. Will remain in ICU.
--- NOTE | 2017-11-19 12:03 | P.PN ---
Subjective Interval history: On high flow O2 still on 70 %. No SOB at rest. Needs to go to rehab. Physical Exam Vital signs: Vital Signs 11/18/17 12:00 11/18/17 14:00 11/18/17 15:02 Temperature 98.3 F Pulse Rate 101 H 93 H 97 H Respiratory Rate 39 H 24 Blood Pressure 140/82 Pulse Oximetry 90 L 11/18/17 16:00 11/18/17 18:00 11/18/17 19:50 Temperature 98.1 F Pulse Rate 97 H 96 H 97 H Respiratory Rate 30 H 28 H Blood Pressure 124/60 Pulse Oximetry 91 L 97 11/18/17 20:00 11/18/17 22:00 11/18/17 23:12 Temperature 98.4 F Pulse Rate 100 H 108 H 101 H Respiratory Rate 22 22 Blood Pressure 138/63 Pulse Oximetry 95 11/18/17 23:13 11/19/17 00:00 11/19/17 02:00 Temperature Pulse Rate 107 H 98 H Respiratory Rate 22 Blood Pressure 135/63 Pulse Oximetry 94 L 92 L 11/19/17 03:27 11/19/17 04:00 11/19/17 06:00 Temperature 98.1 F Pulse Rate 101 H 104 H 101 H Respiratory Rate 24 22 Blood Pressure 149/68 H Pulse Oximetry 93 L 92 L 11/19/17 07:39 11/19/17 08:00 11/19/17 10:00 Temperature 98.1 F Pulse Rate 105 H 101 H 120 H Respiratory Rate 24 33 H Blood Pressure 130/60 Pulse Oximetry 92 L 95 Intake & Output 11/18/17 11/19/17 11/19/17 18:59 06:59 18:59 Intake Total 580 / 580 1930 / 1930 Output Total 800 / 800 550 / 550 Balance -220 / -220 1380 / 1380 Weight 71 kg Intake: IV 100 / 100 1450 / 1450 Maxipime Inj 2,000 MG In NS Inj 100 / 100 100 / 100 100 ML @ 200 mls/hr IV.SIG Q12H [facility] Rx#:[id number] Oral 480 / 480 480 / 480 Output: Urine 800 / 800 Urine/Stool Mix 0 / 0 Urine Amount (Catheter) 550 / 550 Indwelling Urethral Catheter 550 / 550 Other: # Bowel Movements 0 0 # Incontinent Bowel Movements 0 Narrative: . General appearance: He is more alert and talking. HEENT: OZ. nasal cannula with oxygen in place. Lungs: Few basal crackles and Occ Wheeze. Cardiac: S1-S2, no S3 or murmurs. Abdomen: Soft, no tenderness, no masses, no organomegaly evident. Extremities are warm and dry. Neuro without significant deficit. - Urinary Catheter Management Indwelling Urethral Catheter Cath placed during this visit: no Results - Labs CBC & Chem 7: 11/19/17 06:26 11/19/17 06:26 Laboratory Results - last 24 hr 11/18/17 11/18/17 11/19/17 12:18 17:00 06:26 WBC 9.7 RBC 3.52 L Hgb 10.9 L Hct 31.6 L MCV 89.8 MCH 30.9 MCHC 34.4 RDW 15.6 Plt Count 124 L MPV 8.5 Sodium Potassium Chloride Carbon Dioxide Anion Gap BUN Creatinine Estimated GFR POC Glucose 127 H 166 H Random Glucose Calcium Magnesium 11/19/17 11/19/17 06:26 08:01 WBC RBC Hgb Hct MCV MCH MCHC RDW Plt Count MPV Sodium 138 Potassium 3.9 Chloride 97 L Carbon Dioxide 32.7 H Anion Gap 8 BUN 32 H Creatinine 0.90 Estimated GFR 81 L POC Glucose 171 H Random Glucose 144 H Calcium 7.8 L Magnesium 2.0 Microbiology 11/16/17 18:50 Blood - Peripheral Aerobic Blood Culture - Preliminary No growth in 3 days 11/16/17 18:50 Blood - Peripheral Anaerobic Blood Culture - Preliminary No growth in 3 days 11/16/17 18:40 Blood - Peripheral Aerobic Blood Culture - Preliminary No growth in 3 days 11/16/17 18:40 Blood - Peripheral Anaerobic Blood Culture - Preliminary No growth in 3 days Assessment and Plan - Assessment (1) CHF (congestive heart failure) Code(s): I50.9 - Heart failure, unspecified Status: Acute (2) Emphysema of lung Code(s): J43.9 - Emphysema, unspecified Status: Acute (3) Borderline diabetes mellitus Code(s): R73.03 - Prediabetes Status: Acute (4) Fracture, intertrochanteric, left femur Code(s): S72.142A - Displaced intertrochanteric fracture of left femur, initial encounter for closed fracture Status: Acute (5) Nutrition, metabolism, and development symptoms Code(s): R63.8 - Other symptoms and signs concerning food and fluid intake Status: Acute (6) Fall Code(s): W19.XXXA - Unspecified fall, initial encounter Status: Acute (7) Cor pulmonale (chronic) Code(s): I27.81 - Cor pulmonale (chronic) Status: Acute (8) Pulmonary hypertension assoc with unclear multi-factorial mechanisms Code(s): I27.29 - Other secondary pulmonary hypertension Status: Acute - Plan 1. Will, wean FIO2 to 35 % and then to N/C 4 L 2. Nebs qid duoneb. 3. D/C BIPAP 4. Duoneb nebs qid. 5. Continue S/Q lovenox 6. CXR in am 7. PT evaluation and walk. 8. Symbicort 160/4.5 mcg , 2 puffs BID 9. Transfer to rehab soon
[2017-11-19] MEDS: Insulin NovoLOG Aspart Correctional Sugar Inj SQ SCH ×4 (12:50→21:01)
[2017-11-19] MEDS: Enoxaparin Inj 40 MG/0.4 ML Syringe SQ SCH (12:55)
[2017-11-19] MEDS: Melatonin 5 MG Tablet PO SCH (21:01)
[2017-11-20] MEDS: Chlorhexidine Gluconate 2% 1 Pack (2 Cloths) TOPICAL SCH (03:03)
[2017-11-20] MEDS: oxyCODONE/Acetaminophen 10/325 Tablet PO PRN (03:21)
--- NOTE | 2017-11-20 04:57 | XR ---
EXAM DATE: 11/20/2017 4:37 AM EDT AGE/SEX: 82 years / Male INDICATIONS: Cough, shortness of breath and chest pain. CLINICAL DATA: This is the patient's subsequent encounter. Patient reports that signs and symptoms h ave been present for 2 days and indicates a pain score of Nonresponsive. MEDICAL/SURGICAL HISTORY: Chronic obstructive pulmonary disease. Diabetes. . Left lung lobecto my. COMPARISON: No prior exams available for comparison. FINDINGS: A single AP view of the chest demonstrates improving aeration in the right hemithorax with resolving effusion. Rounded calcifications medially in the right hemithorax probably represent old granulomatou s disease There is still some interstitial prominence. Left-sided effusion and volume loss with proba ble diaphragmatic and pleural calcification versus. CONCLUSION: 1. Improving aeration in the right lung base with resolving right-sided effusion. Probable old granu lomatous disease 2. Left-sided volume loss, pleural and diaphragmatic calcification and loculated pleural effusion/pl eural thickening are all unchanged. Electronically signed by: Andrew De La Fuente MD 11/20/2017 4:55 AM EDT
[2017-11-20 07:12] LABS: Calcium 7.8 mg/dL (8.5-10.1); Carbon Dioxide 35.5 meq/L (21.0-32.0); Magnesium 2.2 mg/dL (1.5-2.5); Potassium 3.5 meq/L (3.5-5.1)
[2017-11-20 07:22] LABS: Hematocrit 30.1 % (39.0-51.0); Hemoglobin 10.3 gm/dL (13.0-17.0); Mean Corpuscular HGB Conc 34.2 % (32.0-36.0); Mean Corpuscular Hemoglobin 30.8 pg (27.0-34.0); Mean Platelet Volume 9.1 fL (7.0-11.0); Platelet Count 116 th/mm3 (150-450); Red Blood Count 3.35 mil/mm3 (4.50-5.90); Red Cell Distribution Width 15.9 % (11.6-17.2); White Blood Count 9.6 th/mm3 (4.0-11.0)
[2017-11-20] MEDS: Senna/Docusate Sodium 8.6/50 MG Tablet PO SCH (08:21)
[2017-11-20] MEDS: Multivitamin/Minerals Therapeutic Tablet PO SCH (08:21)
[2017-11-20] MEDS: Folic Acid 1 MG Tablet PO SCH (08:21)
[2017-11-20] MEDS: Potassium Chloride 10 MEQ ER Capsule PO SCH (08:21)
[2017-11-20] MEDS: Insulin NovoLOG Aspart Correctional Sugar Inj SQ SCH ×2 (08:22→12:13)
--- NOTE | 2017-11-20 08:34 | P.PNOP ---
Subjective Interval history: pain seems to be better. family in room. able to get OOB and in chair with PT yesterday. Physical Exam Vital signs: Vital Signs 11/19/17 10:00 11/19/17 12:00 11/19/17 14:00 Temperature 98.5 F Pulse Rate 120 H 101 H 115 H Respiratory Rate 15 Blood Pressure 138/65 Pulse Oximetry 94 L 11/19/17 16:00 11/19/17 18:00 11/19/17 18:46 Temperature 98.4 F Pulse Rate 100 H 106 H Respiratory Rate 18 Blood Pressure 140/64 Pulse Oximetry 93 L 96 11/19/17 20:00 11/19/17 22:00 11/19/17 22:17 Temperature 98.6 F Pulse Rate 103 H 103 H Respiratory Rate 22 Blood Pressure 143/63 H Pulse Oximetry 94 L 92 L 11/20/17 00:00 11/20/17 01:23 11/20/17 02:00 Temperature Pulse Rate 107 H 104 H 104 H Respiratory Rate 25 H 20 Blood Pressure 135/61 Pulse Oximetry 91 L 11/20/17 03:55 11/20/17 04:00 11/20/17 06:00 Temperature 98.7 F Pulse Rate 100 H 96 H Respiratory Rate 22 20 Blood Pressure 137/61 Pulse Oximetry 93 L Intake & Output 11/19/17 11/20/17 11/20/17 18:59 06:59 18:59 Intake Total 450 / 450 450 / 450 Output Total 650 / 650 100 / 100 Balance -200 / -200 350 / 350 Weight 69.5 kg Intake: IV 100 / 100 100 / 100 Maxipime Inj 2,000 MG In NS Inj 100 / 100 100 / 100 100 ML @ 200 mls/hr IV.SIG Q12H [facility] Rx#:[id number] Oral 350 / 350 350 / 350 Output: Urine 650 / 650 100 / 100 Other: # Bowel Movements 0 0 Narrative: in bed, nad, nasal cannula dressing c/d/i ecchymosis L hip posteriorly thigh soft neg homans nvi - Urinary Catheter Management Indwelling Urethral Catheter Cath placed during this visit: no Results - Labs CBC & Chem 7: 11/20/17 03:00 11/20/17 03:00 Laboratory Results - last 24 hr 08/23/18 08/23/18 08/24/18 12:16 17:31 03:00 WBC 9.6 RBC 3.35 L Hgb 10.3 L Hct 30.1 L MCV 90.0 MCH 30.8 MCHC 34.2 RDW 15.9 Plt Count 116 L MPV 9.1 Sodium Potassium Chloride Carbon Dioxide Anion Gap BUN Creatinine Estimated GFR POC Glucose 200 H 159 H Random Glucose Calcium Magnesium 11/20/17 11/20/17 03:00 08:20 WBC RBC Hgb Hct MCV MCH MCHC RDW Plt Count MPV Sodium 137 Potassium 3.5 Chloride 96 L Carbon Dioxide 35.5 H Anion Gap 6 BUN 28 H Creatinine 0.90 Estimated GFR 81 L POC Glucose 152 H Random Glucose 161 H Calcium 7.8 L Magnesium 2.2 Microbiology 11/16/17 18:50 Blood - Peripheral Aerobic Blood Culture - Preliminary No growth in 3 days 11/16/17 18:50 Blood - Peripheral Anaerobic Blood Culture - Preliminary No growth in 3 days 11/16/17 18:40 Blood - Peripheral Aerobic Blood Culture - Preliminary No growth in 3 days 11/16/17 18:40 Blood - Peripheral Anaerobic Blood Culture - Preliminary No growth in 3 days - Imaging Impressions Chest X-Ray 11/20/17 00:00 CONCLUSION: 1. Improving aeration in the right lung base with resolving right-sided effusion. Probable old granulomatous disease 2. Left-sided volume loss, pleural and diaphragmatic calcification and loculated pleural effusion/pleural thickening are all unchanged. Assessment and Plan - Ortho Post Op Day # 6 - Assessment and Plan pod 6 sp left troch nail pt in the medical ICU due to respiratory distress, needing support multiple medical comorbidities with copd, cad plan transfused prbc Thursday xray left knee due to knee swelling - no sign of fracture, discussed with family - ROM as tolerated I have discussed findings and current plan with family and at bedside, all questions were answered lovenox and scd for dvt prophylaxis physical therapy 50-% pwb LLE OOB and in chair will need snf when medicably cleared for discharge ortho stable f/up dr. schumacher 2 weeks
--- NOTE | 2017-11-20 09:50 | P.PNFP ---
Subjective Interval history: Attending note: Patient seen with resident team, nurse present and and daughters present. Patient is out of bed in a chair, very interactive with his family speaking [place]. Is reported to be eating reasonably well. Is having flatus, no bowel movement. Discussed with nursing staff plans to address the latter. 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 Somewhat dependent on being able to reduce the FiO2. The right anterior chest pain present on 11/19/2017 appears to have defervesced , patient is complaining of some low back pain. Results - Labs Result diagrams: 11/20/17 03:00 11/20/17 03:00 Abnormal lab results 11/19/17 11/19/17 11/20/17 Range/Units 12:16 17:31 03:00 RBC 3.35 L (4.50-5.90) mil/mm3 Hgb 10.3 L (13.0-17.0) gm/dL Hct 30.1 L (39.0-51.0) % Plt Count 116 L (150-450) th/mm3 Chloride (98-107) meq/L Carbon Dioxide (21.0-32.0) meq/L BUN (7-18) mg/dL Estimated GFR (>89) mL/min POC Glucose 200 H 159 H (68-110) mg/dl Random Glucose (74-106) mg/dL Calcium (8.5-10.1) mg/dL 11/20/17 11/20/17 Range/Units 03:00 08:20 RBC (4.50-5.90) mil/mm3 Hgb (13.0-17.0) gm/dL Hct (39.0-51.0) % Plt Count (150-450) th/mm3 Chloride 96 L (98-107) meq/L Carbon Dioxide 35.5 H (21.0-32.0) meq/L BUN 28 H (7-18) mg/dL Estimated GFR 81 L (>89) mL/min POC Glucose 152 H (68-110) mg/dl Random Glucose 161 H (74-106) mg/dL Calcium 7.8 L (8.5-10.1) mg/dL Short CBC 11/20/17 Range/Units 03:00 WBC 9.6 (4.0-11.0) th/mm3 Hgb 10.3 L (13.0-17.0) gm/dL Hct 30.1 L (39.0-51.0) % Plt Count 116 L (150-450) th/mm3 BMP 11/20/17 03:00 Sodium 137 Potassium 3.5 Chloride 96 L Carbon Dioxide 35.5 H BUN 28 H Creatinine 0.90 Calcium 7.8 L - Imaging Impressions Chest X-Ray 11/20/17 00:00 CONCLUSION: 1. Improving aeration in the right lung base with resolving right-sided effusion. Probable old granulomatous disease 2. Left-sided volume loss, pleural and diaphragmatic calcification and loculated pleural effusion/pleural thickening are all unchanged. Physical Exam Vital signs: Vital Signs 11/19/17 10:00 11/19/17 12:00 11/19/17 14:00 Temperature 98.5 F Pulse Rate 120 H 101 H 115 H Respiratory Rate 15 Blood Pressure 138/65 Pulse Oximetry 94 L 11/19/17 16:00 11/19/17 18:00 11/19/17 18:46 Temperature 98.4 F Pulse Rate 100 H 106 H Respiratory Rate 18 Blood Pressure 140/64 Pulse Oximetry 93 L 96 11/19/17 20:00 11/19/17 22:00 11/19/17 22:17 Temperature 98.6 F Pulse Rate 103 H 103 H Respiratory Rate 22 Blood Pressure 143/63 H Pulse Oximetry 94 L 92 L 11/20/17 00:00 11/20/17 01:23 11/20/17 02:00 Temperature Pulse Rate 107 H 104 H 104 H Respiratory Rate 25 H 20 Blood Pressure 135/61 Pulse Oximetry 91 L 11/20/17 03:55 11/20/17 04:00 11/20/17 06:00 Temperature 98.7 F Pulse Rate 100 H 96 H Respiratory Rate 22 20 Blood Pressure 137/61 Pulse Oximetry 93 L 11/20/17 08:40 Temperature Pulse Rate Respiratory Rate Blood Pressure Pulse Oximetry 94 L Intake & Output 11/19/17 11/20/17 11/20/17 18:59 06:59 18:59 Intake Total 450 / 450 450 / 450 Output Total 650 / 650 100 / 100 Balance -200 / -200 350 / 350 Weight 69.5 kg Intake: IV 100 / 100 100 / 100 Maxipime Inj 2,000 MG In NS Inj 100 / 100 100 / 100 100 ML @ 200 mls/hr IV.SIG Q12H NOAH Rx#:[id number] Oral 350 / 350 350 / 350 Output: Urine 650 / 650 100 / 100 Other: # Bowel Movements 0 0 Narrative: Vital signs: Pulse 100/min and sinus rhythm. Temperature 98.7. Blood pressure 137/61. Respirations 20 and on high flow O2 saturation 94%. General appearance older gentleman out of bed in chair appears to have pleasant demeanor in conversation with family. HEENT: Nonlocalizing, nasal cannula in place. Lungs: Diminished breath sounds clear more superficially and superiorly, diminished breath sounds significantly noted in the left lungs. Cardiac: S1-S2, no S3 or significant murmurs appreciated. Abdomen: Soft, on deep palpation some discomfort appears on facial expression. No masses, no organomegaly. No Extremities hands are well-perfused and dry, lower extremities have no edema, feet are warm and dry. Sequential hose in place. NAYELY appears to favor input. CBC hemoglobin 10.3 white blood cell count 9600 platelets 116,000.BMP sodium 137 potassium 3.5 [id number] glucose is noted mid 100s. Chest x-ray demonstrates improved aeration on the right, stable left. - Urinary Catheter Management Indwelling Urethral Catheter Cath placed during this visit: no Assessment and Plan - Assessment (1) Respiratory distress Code(s): R06.03 - Acute respiratory distress Status: Acute (2) Fracture, intertrochanteric, left femur Code(s): S72.142A - Displaced intertrochanteric fracture of left femur, initial encounter for closed fracture Status: Acute Plan: Patient came to the ED after a witnessed fall 11/13/17. X-ray of the hip showed intertrochanteric fracture on the left and osteopenia. Orthopedic surgery consulted, preop labs ordered and reviewed: mild anemia with H&H 11/34.3, coags within normal limits Consulted pulmonology/cardiology for surgery clearance. Vitamin D level 6 - will discuss with family regarding supplementation Continue Castellanos's traction prior to surgical managment Percocet/morphine for breakthrough pain scale NPO for surgery at this time (3) Fall Code(s): W19.XXXA - Unspecified fall, initial encounter Status: Acute Plan: Family reports that patient often gets lightheaded when standing up quickly which occurred today prior to the fall Denies any loss of consciousness, chest pain or shortness of breath different from baseline EKG on admission showed sinus rhythm with no T-wave inversions Continuous telemetry - no reported events No electrolyte abnormalities, mildly anemic with H&H of 11.0/34.3 UA collected 11/14, showing no evidence of infection. Troponin x 1 negative for evidence of cardiac ischemia Suspect orthostatic etiology of the fall, may need to consider further imaging pending the hospital course (4) CHF (congestive heart failure) Code(s): I50.9 - Heart failure, unspecified Status: Acute Plan: Patient with a known history of CHF. Followed by Dr. Weinstein per family ASCVD with coronary disease and history congestive heart failure by history Pre-hospital EF unknown Echo performed 11/14/17 showing EF 60-65%, severe pulmonary HTN with 76mm Hg pressure Chest x-ray on admission showed abnormal pleural-based thickening and calcification measuring up to 4.9 cm in the left hemithorax possibly associated with a prior left thoracotomy. Diminished size of the left lung possibly from partial prior resection. No signs of pleural effusion. Does not appear to be fluid overloaded on exam EKG on admission was normal Per mill tender warm up report, anticipate clearance for surgery based on clinical picture, risk vs. benefit profile of surgical repair of hip, however echo was pending at their initial evaluation. 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 Probable empyema surgery at age 20. Former smoker. Quit 1 year ago but previously smoked 3-4 packs per day 3-4 L nasal cannula at home, continued while inpatient Nebulizer treatments at home, family cannot confirm the exact medication Duonebs every 4-6 hours as needed for wheezing Pulmonology consulted as he will need surgical clearance. They are following. They recommended Symbicort 160 4.5 mcg 2 puffs daily. Repeat CXR ordered this morning 11/14 pending. Family requested that anesthesia team discuss case with them prior to surgery today, nurse aware and has called surgeon and anesthesiologist. (6) Borderline diabetes mellitus Code(s): R73.03 - Prediabetes Status: Acute Plan: Known history of borderline type 2 diabetes Takes metformin 500 mg p.o. daily Holding home medications for now. Random glucose on admission was 135 Sliding scale Novolog if needed (7) Nutrition, metabolism, and development symptoms Code(s): R63.8 - Other symptoms and signs concerning food and fluid intake Status: Acute Plan: NPO for now pre-operatively. Will resume diet post-operatively as tolerated Electrolytes within normal limits. Will replete as needed No IV fluids at this time SCDs for DVT prophylaxis until surgical plan is established. Pharmacologic anticoagulation indicated postoperatively (usually initiated 24 hr postoperatively) - Assessment and Plan Attending note: patient seen and examined with resident team. 2 d echo did reveal preserved left vent function and increase pulmonary artery pressure consistent with lung disease. Family has multiple concerns and patent's and daughters are in attendance. Patient is to go to OR for rt hip orif by orthopedic surgery. In discussion with daughterTenisha, reviewed that post op patient would most likely need snf rehab and she related that his baseline mental status is one that requires constant attendance as he has developed a dementia. Emphasized that after anesthesia, cn anticipate that confusion will temporarily worsen. Agree with orders as written by resident team. Follow closely post op. Karan Ramírez MD 11/14/17. Attending note: 11/15/2017. 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 Physician and resident physician counseled with the family including , [id number] who has medical background, and daughters in an effort to answer their questions, appreciate his past medical history, explained to them the present clinical findings and plan going forward. At the present time a CTA of the chest has been recommended, family is deciding whether they are comfortable. In counseling the family they express different emotions including anger, and frustration. Will continue on the current clinical course , ensure that all medical staff physicians, nurses and support team are communicating. Karan Ramírez MD 11/15/2017. Attending note assessment 11/16/2017: Very complex patient, status post day 2 left ORIF with intramedullary pinning, severely compromised lungs prior to entry into the hospital secondary to fibrotic scarring and COPD reported to be a smoker up until hospitalization with a dementia described by the family ( difficult to tell to what stage) whose oxygen levels of been reasonably stabilized today on nasal cannula oxygenation. Because of his age, comorbidities his postop course will definitely be a lengthy process, statistically he is at risk for complications that could be life-threatening. Family has many frustrations, expresses anger, and their questions were answered to the best of the team's abilities. Medical team will work with Dr. Vega, the hat parts cutter machine and the nursing staff closely. Karan Ramírez MD 2017. Attending note assessment 11/17/2017: Clinically stable, maintaining adequate oxygenation, beginning to take nutrition by mouth. Family currently at bedside appears to understand and have appropriate questions. Appreciate Dr. Vega's note. After 2 units of packed cells transfused slowly over the last 24 hours the patient's hemoglobin is 10.3. Electrolytes are within normal range. Creatinine 0.93. Point of care glucose is ranging in the low 200s. Reviewed chest x-rays. Continue supportive measures. Clinical course will be weeks to months providing there are not new clinical challenges. Discussed with Dr. Vega usage of Diamox with Lasix to address what appears to be some pulmonary fluid. Discussed with resident staff, agree with resident's orders as recorded. Karan Ramírez MD 11/17/2017. Clinical assessment: Postop day 4 left intramedullary pinning for intertrochanteric fracture. Patient with presurgery severe lung disease and pulmonary hypertension. Maintaining oxygen saturation, nutrition has been reestablished, recommend increasing activity to be out of the chair and start actively working with PT and OT. Discharge planning per resources available. Case discussed with Dr. Sorto, hat parts cutter machine. Case discussed with resident team and agree with orders as written by the resident. Karan Ramírez MD 11/18/2017. Clinical assessment: Postop day 5, continues to become more awake and alert and interactive and momentum progressing toward discharge. Anticipate increased activity with PT, family may bring in some [place] food if this might be a morale booster. Discussed with Dr. Vega and the resident team, agree with orders as written by the resident team. Karan Ramírez MD 11/19/2017. Clinical assessment: Postop day 6 right IM nailing of intertrochanteric fracture. Working toward discharge to a jail facility. FiO2 remains a factor to reduce prior to transfer. Family appears comfortable with ongoing care. Nutrition is being addressed. Bowel movements discussed, will add some lactulose. Address his relatively low potassium. All questions answered. Suspect the low back pain is from being relatively inactive and pressure in the area. Discussed with hat parts cutter machine. Discussed with nursing staff.
[2017-11-20] MEDS: Enoxaparin Inj 40 MG/0.4 ML Syringe SQ SCH (12:13)
--- NOTE | 2017-11-20 14:13 | P.DS ---
Date of admission: 11/13/17 15:47 Primary care physician: UNKNOWN Attending physician on discharge: Karan Ramírez Anticipated date of discharge: 11/20/17 Brief History from admission: 82-year-old male with history of CHF, diabetes, emphysema presenting to the ED after a fall. Patient is Belgian speaking only and his family (who speaks [place]ian) was present who assisted in providing history. An medical interpreter was also used (Luz Elena ID #[id number]). Family states that patient was in his normal state of health and had a witnessed fall today in the living room. Family states that he occasionally gets lightheaded when he stands up quickly, and they stated that was the case today. Denies any loss of consciousness or chest pain. At baseline, patient is on 3-4 L nasal cannula and requires assistance in ambulating, bathing and clothing himself. Family states that the patient had a thoracotomy/lobectomy in childhood for condition he could not describe. His production worker is Dr. Lazcano. He also has a known history of CHF for which he takes Lasix and potassium daily. Birdcage Assembler is Dr. Weinstein. DS: Diagnosis - Discharge Diagnosis (1) CHF (congestive heart failure) Status: Acute (2) Emphysema of lung Status: Acute (3) Borderline diabetes mellitus Status: Acute (4) Fracture, intertrochanteric, left femur Status: Acute (5) Nutrition, metabolism, and development symptoms Status: Acute (6) Fall Status: Acute (7) Respiratory distress Status: Acute (8) Cor pulmonale (chronic) Status: Acute (9) Pulmonary hypertension assoc with unclear multi-factorial mechanisms Status: Acute (10) Respiratory abnormalities Status: Acute DS: Summary Hospital Course: subjective: 11/16: long discussion with family on multiple occasions today: some improvements in subjective dyspnea, but still high fio2 requirements. hgb dropped to 5.5 this AM, receiving 2 units prbc: most likely dilutional from pre- operative losses due to fracture. no melena or other signs of active bleeding. 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 11/17: hgb responded appropriately to transfusion yesterday. now improving. appears slightly volume overloaded today and actively diuresing. o2 requirements slightly better. subjective improvements in dyspnea. 11/18: fio2 remains at 70% on high flow NC. would benefit from LTAC for pulmonary rehab. needs PT. some delirium overnight, most likely ICU delirium. will add melatonin for sleep tonight, and may require gentle haldol for persistent agitation. 11/19: no improvements in fio2. OOB to chair this AM and subjectively feels better. insurance denied LTAC transfer. family requests transfer to [facility] as it is in-network and they feel more comfortable with that facility, and I have called the transfer center to initiate that process. The family also requests appeal for LTAC authorization. I agree that LTAC provides the most appropriate level of care at this time: patient unable to perform necessary rehab efforts for inpt rehab and too high risk for SNF. however, LTAC can provide level of pulmonary and physical rehab far superior to inpatient ICU rehab abilities and can provide all the appropriate level of medical care at this time. 11/20: no change in pulmonary status. insurance authorization approved appear for LTAC. [facility] - Time Spent with Patient Total time spent providing and/or coordinating discharge services: Greater than 30 minutes - Quality: VTE Deep Vein Thrombosis/Pulmonary Embolism Present on Admission: No Exam Vital signs: Vital Signs 11/19/17 16:00 11/19/17 18:00 11/19/17 18:46 Temperature 36.9 C Pulse Rate 100 H 106 H Respiratory Rate 18 Blood Pressure 140/64 Pulse Oximetry 93 L 96 11/19/17 20:00 11/19/17 22:00 11/19/17 22:17 Temperature 37.0 C Pulse Rate 103 H 103 H Respiratory Rate 22 Blood Pressure 143/63 H Pulse Oximetry 94 L 92 L 11/20/17 00:00 11/20/17 01:23 11/20/17 02:00 Temperature Pulse Rate 107 H 104 H 104 H Respiratory Rate 25 H 20 Blood Pressure 135/61 Pulse Oximetry 91 L 11/20/17 03:55 11/20/17 04:00 11/20/17 06:00 Temperature 37.1 C Pulse Rate 100 H 96 H Respiratory Rate 22 20 Blood Pressure 137/61 Pulse Oximetry 93 L 11/20/17 08:00 11/20/17 08:40 08/24/18 10:00 Temperature 36.8 C Pulse Rate 91 H 102 H Respiratory Rate 26 H Blood Pressure 141/66 H Pulse Oximetry 93 L 94 L 11/20/17 12:24 Temperature Pulse Rate Respiratory Rate Blood Pressure Pulse Oximetry 94 L Intake & Output 11/19/17 11/20/17 11/20/17 18:59 06:59 18:59 Intake Total 450 / 450 450 / 450 Output Total 650 / 650 100 / 100 Balance -200 / -200 350 / 350 Weight 69.5 kg Intake: IV 100 / 100 100 / 100 Maxipime Inj 2,000 MG In NS Inj 100 / 100 100 / 100 100 ML @ 200 mls/hr IV.SIG Q12H NOAH Rx#:[id number] Oral 350 / 350 350 / 350 Output: Urine 650 / 650 100 / 100 Other: # Bowel Movements 0 0 Narrative: gen: frail eldery male, lying in bed, some respiratory distress, although appears improved from prior documented exams. heent: nc. at. perrl. mmm. neck: no jvd. trachea midline. chest: mildly tachypneic. coarse BS throughout. high flow NC on 60% fio2. 35 LPM. cv: normal rate, regular rhythm. sinus. abd: soft, nontender, nondistended. no guarding. extr: no edema. distal pulses 2+. trochanteric incision c/d/i. no hematoma. neuro: RASS +1. CAM+. more confused today. follows commands. no focal deficits. Results Procedures completed during hospitalization: intertrochanteric hip nailing Labs on day of discharge: Labs from last 24 hours 11/20/17 11/20/17 11/20/17 12:03 08:20 03:00 WBC RBC Hgb Hct MCV MCH MCHC RDW Plt Count MPV Sodium 137 Potassium 3.5 Chloride 96 L Carbon Dioxide 35.5 H Anion Gap 6 BUN 28 H Creatinine 0.90 Estimated GFR 81 L POC Glucose 241 H 152 H Random Glucose 161 H Calcium 7.8 L Magnesium 2.2 11/20/17 11/19/17 03:00 17:31 WBC 9.6 RBC 3.35 L Hgb 10.3 L Hct 30.1 L MCV 90.0 MCH 30.8 MCHC 34.2 RDW 15.9 Plt Count 116 L MPV 9.1 Sodium Potassium Chloride Carbon Dioxide Anion Gap BUN Creatinine Estimated GFR POC Glucose 159 H Random Glucose Calcium Magnesium Preliminary micro results at discharge 11/16/17 18:50 Aerobic Blood Culture - Preliminary Blood - Peripheral No growth in 4 days Anaerobic Blood Culture - Preliminary No growth in 4 days 11/16/17 18:40 Aerobic Blood Culture - Preliminary Blood - Peripheral No growth in 4 days Anaerobic Blood Culture - Preliminary No growth in 4 days - Impressions ITS Impressions Hip X-Ray 11/14/17 00:00 CONCLUSION: 1. Left hip ORIF, as above. Venous Doppler Study 11/15/17 14:06 CONCLUSION: 1. Technically limited examination due to diminutive vessels particularly in the left calf. 2. Otherwise, no sonographic evidence for lower extremity DVT. Pulmonary Perfusion Imaging 11/15/17 14:07 CONCLUSION: 1. Indeterminate probability VQ scan based on strict PIOPED criteria. However, ventilation is significantly more affected than perfusion. This pattern is uncommon with significant pulmonary embolism. Knee X-Ray 11/16/17 00:00 CONCLUSION: 1. Under mineralized bones without a fracture identified. 2. Small joint effusion. Chest X-Ray 11/20/17 00:00 CONCLUSION: 1. Improving aeration in the right lung base with resolving right-sided effusion. Probable old granulomatous disease 2. Left-sided volume loss, pleural and diaphragmatic calcification and loculated pleural effusion/pleural thickening are all unchanged. Discharge Plan - Discharge Disposition Patient Disposition: Disch To Another Hospital - Discharge Condition Condition: Stable - Discharge Order Discharge Orders: Discharge Order (Routine); Ordered 11/20/17 Ordered By: Darrell Sorto - Discharge Details Anticipated Discharge Date: 11/20/17 Discharge Comment: to [facility] - Physicians Team Primary Care Provider: UNKNOWN, Attending Provider: Karan Ramírez Other Providers: Arvin Lazcano MD ; Francisco Page MD ; Zeke Robertson MD ; Cam Hare MD ; [facility]
[2017-11-20 16:38] VITALS: BP 126/60; PULSE 103; RESP 12; TEMP 97.7; O2SAT 98
--- NOTE | 2017-11-20 18:15 | P.PN ---
Subjective Interval history: Up in a chair and family here. He is better. Chest X ray is better. On O2 4 L now. Physical Exam Vital signs: Vital Signs 11/19/17 18:46 11/19/17 20:00 11/19/17 22:00 Temperature 98.6 F Pulse Rate 103 H 103 H Respiratory Rate 22 Blood Pressure 143/63 H Pulse Oximetry 96 94 L 11/19/17 22:17 11/20/17 00:00 11/20/17 01:23 Temperature Pulse Rate 107 H 104 H Respiratory Rate 25 H 20 Blood Pressure 135/61 Pulse Oximetry 92 L 91 L 11/20/17 02:00 11/20/17 03:55 11/20/17 04:00 Temperature 98.7 F Pulse Rate 104 H 100 H Respiratory Rate 22 20 Blood Pressure 137/61 Pulse Oximetry 93 L 11/20/17 06:00 11/20/17 08:00 11/20/17 08:40 Temperature 98.2 F Pulse Rate 96 H 91 H Respiratory Rate 26 H Blood Pressure 141/66 H Pulse Oximetry 93 L 94 L 11/20/17 10:00 11/20/17 12:00 11/20/17 12:24 Temperature 98.0 F Pulse Rate 102 H 103 H Respiratory Rate 33 H Blood Pressure 168/76 H Pulse Oximetry 93 L 94 L 11/20/17 14:00 11/20/17 16:00 Temperature 97.7 F Pulse Rate 98 H 103 H Respiratory Rate 12 Blood Pressure 126/60 Pulse Oximetry 98 Intake & Output 11/19/17 11/20/17 11/20/17 18:59 06:59 18:59 Intake Total 450 / 450 450 / 450 Output Total 650 / 650 100 / 100 Balance -200 / -200 350 / 350 Weight 69.5 kg Intake: IV 100 / 100 100 / 100 Maxipime Inj 2,000 MG In NS Inj 100 / 100 100 / 100 100 ML @ 200 mls/hr IV.SIG Q12H NOAH Rx#:[id number] Oral 350 / 350 350 / 350 Output: Urine 650 / 650 100 / 100 Other: # Bowel Movements 0 0 Narrative: Elderly W/M in a chair alert GENERAL: SKIN: Warm and dry. HEAD: Atraumatic. Normocephalic. EYES: Pupils equal and round. No scleral icterus. No injection or drainage. ENT: No nasal bleeding or discharge. Mucous membranes pink and moist. NECK: Trachea midline. No JVD. CARDIOVASCULAR: Regular rate and rhythm. RESPIRATORY: No accessory muscle use. Occ Crackles at bases. Breath sounds equal bilaterally. GASTROINTESTINAL: Abdomen soft, non-tender, nondistended. Hepatic and splenic margins not palpable. MUSCULOSKELETAL: Extremities without clubbing, cyanosis, or edema. No obvious deformities. NEUROLOGICAL: Awake and alert. No obvious cranial nerve deficits. Motor grossly within normal limits. PSYCHIATRIC: Appropriate mood and affect; insight and judgment normal. - Urinary Catheter Management Indwelling Urethral Catheter Cath placed during this visit: no Results - Labs CBC & Chem 7: 11/20/17 03:00 11/20/17 03:00 Laboratory Results - last 24 hr 11/20/17 11/20/17 11/20/17 03:00 03:00 08:20 WBC 9.6 RBC 3.35 L Hgb 10.3 L Hct 30.1 L MCV 90.0 MCH 30.8 MCHC 34.2 RDW 15.9 Plt Count 116 L MPV 9.1 Sodium 137 Potassium 3.5 Chloride 96 L Carbon Dioxide 35.5 H Anion Gap 6 BUN 28 H Creatinine 0.90 Estimated GFR 81 L POC Glucose 152 H Random Glucose 161 H Calcium 7.8 L Magnesium 2.2 11/20/17 12:03 WBC RBC Hgb Hct MCV MCH MCHC RDW Plt Count MPV Sodium Potassium Chloride Carbon Dioxide Anion Gap BUN Creatinine Estimated GFR POC Glucose 241 H Random Glucose Calcium Magnesium Microbiology 11/16/17 18:50 Blood - Peripheral Aerobic Blood Culture - Preliminary No growth in 4 days 11/16/17 18:50 Blood - Peripheral Anaerobic Blood Culture - Preliminary No growth in 4 days 11/16/17 18:40 Blood - Peripheral Aerobic Blood Culture - Preliminary No growth in 4 days 11/16/17 18:40 Blood - Peripheral Anaerobic Blood Culture - Preliminary No growth in 4 days - Imaging Impressions Chest X-Ray 11/20/17 00:00 CONCLUSION: 1. Improving aeration in the right lung base with resolving right-sided effusion. Probable old granulomatous disease 2. Left-sided volume loss, pleural and diaphragmatic calcification and loculated pleural effusion/pleural thickening are all unchanged. - Procedures intertrochanteric hip nailing Assessment and Plan - Assessment (1) CHF (congestive heart failure) Code(s): I50.9 - Heart failure, unspecified Status: Acute (2) Emphysema of lung Code(s): J43.9 - Emphysema, unspecified Status: Acute (3) Borderline diabetes mellitus Code(s): R73.03 - Prediabetes Status: Acute (4) Fracture, intertrochanteric, left femur Code(s): S72.142A - Displaced intertrochanteric fracture of left femur, initial encounter for closed fracture Status: Acute (5) Nutrition, metabolism, and development symptoms Code(s): R63.8 - Other symptoms and signs concerning food and fluid intake Status: Acute (6) Fall Code(s): W19.XXXA - Unspecified fall, initial encounter Status: Acute (7) Cor pulmonale (chronic) Code(s): I27.81 - Cor pulmonale (chronic) Status: Acute (8) Pulmonary hypertension assoc with unclear multi-factorial mechanisms Code(s): I27.29 - Other secondary pulmonary hypertension Status: Acute - Plan 1. Cont O2 N/C 4 L 2. Nebs qid duoneb. 3. To rehab today 4. Duoneb nebs qid. 5. Continue S/Q lovenox 6. Will see as OP in 2 weeks. 7. PT evaluation and walk. 8. Symbicort 160/4.5 mcg , 2 puffs BID
[2017-11-20] MEDS ORDERED: Potassium Chloride 10 MEQ ER Capsule PO SCH (21:00)
== END 2017-11-20 16:10 ==
LOC: NEPE 12:06 → NEDA 15:47 → N06 19:35 → HIMC 11-15 05:55
PROVIDERS: ADMIT Family Medicine; ATTEND Family Medicine

== ENCOUNTER 2017-12-19 21:24 | Inpatient (IN) ==
[2017-12-19] MEDS ORDERED: Nitroglycerin Drip Premix 50 MG/250 ML BOTTLE IV.CONT PRN (21:26)
[2017-12-19 21:49] LABS: Baso % (Auto) 0.1 % (0.0-2.0); Eos % (Auto) 0.1 % (0.0-4.0); Hematocrit 39.7 % (39.0-51.0); Hemoglobin 13.2 gm/dL (13.0-17.0); Lymph # (Auto) 2.4 th/mm3 (1.0-4.8); Lymph % (Auto) 9.1 % (9.0-44.0); Mean Corpuscular HGB Conc 33.3 % (32.0-36.0); Mean Corpuscular Hemoglobin 30.2 pg (27.0-34.0); Mean Corpuscular Volume 90.6 fL (80.0-100.0); Mono # (Auto) 2.3 th/mm3 (0.0-0.9); Mono % (Auto) 8.9 % (0.0-8.0); Neut # (Auto) 21.5 th/mm3 (1.8-7.7); Neut % (Auto) 81.8 % (16.0-70.0); Platelet Count 301 th/mm3 (150-450); Red Blood Count 4.38 mil/mm3 (4.50-5.90); Red Cell Distribution Width 14.4 % (11.6-17.2); White Blood Count 26.3 th/mm3 (4.0-11.0)
[2017-12-19 22:00] LABS: Activated Partial Thrombo Time 24.7 sec (24.3-30.1); INR 1.1 Ratio; Prothrombin Time 11.6 sec (9.8-11.6)
[2017-12-19 22:04] LABS: Albumin 3.1 g/dL (3.4-5.0); Anion Gap 5 meq/L (5-15); Aspartate Aminotransferase 33 U/L (15-37); Blood Urea Nitrogen 29 mg/dL (7-18); Calcium 8.6 mg/dL (8.5-10.1); Carbon Dioxide 36.6 meq/L (21.0-32.0); Chloride 99 meq/L (98-107); Glomerular Filtration Rate 75 mL/min (>89); Glucose,Random 194 mg/dL (74-106); Lipase 128 U/L (73-393); Potassium 4.9 meq/L (3.5-5.1); Sodium 141 meq/L (136-145)
[2017-12-19 22:05] LABS: Alanine Aminotransferase 35 U/L (12-78); Phosphorus 3.7 mg/dL (2.5-4.9)
--- NOTE | 2017-12-19 22:06 | XR ---
EXAM DATE: 12/19/2017 10:02 PM EDT AGE/SEX: 82 years / Male INDICATIONS: Shortness of breath worsening over the past 2 days. CLINICAL DATA: This is the patient's initial encounter. Patient reports that signs and symptoms have been present for 2 days and indicates a pain score of Nonresponsive. MEDICAL/SURGICAL HISTORY: . Chronic obstructive pulmonary disease. Diabetes. . Left lung lobe ctomy. [place] [facility] [place]. . FINDINGS: The left hemithorax is completely opacified worse since the prior examination probably due to increasing pleural effusion and/or significant consolidation. There is also airspace process right middle lower lung brown significantly worse since the prior exam. CONCLUSION: Worsening airspace process right lower lung most likely pneumonia with completely opacified left halley thorax probably due to a pleural effusion and/or left lung consolidation/collapse. Underlying mass is difficult to exclude. Electronically signed by: Shankar Lopez MD 12/19/2017 10:05 PM EDT
[2017-12-19 22:07] LABS: Alkaline Phosphatase 213 U/L (45-117); Total Protein 7.6 g/dL (6.4-8.2); Troponin I 0.03 ng/mL (0.02-0.05)
[2017-12-19 22:14] LABS: Creatine Kinase 51 U/L (39-308)
--- NOTE | 2017-12-19 22:33 | ED ---
HPI General Chief Complaint: Shortness of Breath/Dyspnea Stated Complaint: EVAC/Respiratory Time Seen by Provider: 12/19/17 21:26 Source: family and EMS Mode of arrival: EMS Limitations: language barrier, altered mental status and physical limitation History of Present Illness MD Complaint: shortness of breath and cough Onset (ago): day(s) Severity: mild Consistency/Duration: constant Relieving factors: bronchodilators and medication Exacerbating factors: movement Known history of: COPD and congestive heart failure Treatment prior to arrival: oxygen, bronchodilator and diuretics Related Data Home Medications Medication Instructions Recorded Confirmed albuterol sulfate 2.5 mg INHALATION Q2H PRN 12/19/17 12/19/17 budesonide 0.5 mg INHALATION BID 12/19/17 12/19/17 furosemide 40 mg PO DAILY 12/19/17 12/19/17 ipratropium-albuterol 3 ml INHALATION Q4H 12/19/17 12/19/17 multivitamin with minerals 1 tab PO DAILY 12/19/17 12/19/17 potassium bicarb-citric acid 1 tab PO DAILY 12/19/17 12/19/17 Allergies Allergy/AdvReac Type Severity Reaction Status Date / Time No Known Allergies Allergy Verified 12/19/17 21:39 Review of Systems ROS Unobtainable ROS Unobtainable: unobtainable due to mental condition and unobtainable due to mental status PMFSH Social History Social History Substance History: No History of Abuse Second Hand Smoke Exposure: No Smoking Status: Unknown if ever smoked Tobacco Type: Cigarettes Packs Per Day: 5 Cigarettes Per Day: 100.0 Years Smoked: 72 Pack-Years: 360.00 Smoking End Date: 2015 How Often Do You Have a Drink Containing Alcohol: Never Recent Travel in [facility] within the Last 8 Weeks: No Recent Out of Country Travel within the Last 8 Weeks: No Immunization History Tetanus Immunization: Unable to Assess Hx Influenza Vaccine This Season: Unable to Assess Exam Narrative Exam Narrative: GENERAL: 82-year-old male moderate to severe distress secondary shortness of breath and illness, nonrebreather SKIN: Intact cool and clammy HEAD: Atraumatic. Normocephalic. EYES: Pupils equal and round. No scleral icterus. No injection or drainage. ENT: No nasal bleeding or discharge. Mucous membranes pink and moist. NECK: Trachea midline. No JVD. CARDIOVASCULAR: Tachycardia. Regular rhythm. RESPIRATORY: Diminished breath sounds on the left. Intact breath sounds on the right, tachypnea to about 30 breaths a minute GASTROINTESTINAL: Soft. Guarding present. MUSCULOSKELETAL: No obvious deformities. No clubbing. No cyanosis. No edema. NEUROLOGICAL: Awake. Nonverbal. Cranial nerves appear symmetric. PSYCHIATRIC: Unable to assess Course Initial Documented Vital Signs Temperature 97.6 F 12/19/17 21:24 Pulse Rate 138 H 12/19/17 21:24 Respiratory Rate 39 H 12/19/17 21:24 Blood Pressure 183/86 H 12/19/17 21:24 Pulse Oximetry 65 L 12/19/17 21:24 Last Documented Vital Signs Temperature 97.6 F 12/19/17 21:24 Pulse Rate 126 H 12/19/17 23:11 Respiratory Rate 34 H 12/19/17 23:11 Blood Pressure 137/53 L 12/19/17 23:11 Pulse Oximetry 97 12/19/17 23:11 Critical Care Time Critical Care Time: Yes Total Critical Care Time: 40 Attestation: Aggregate critical care time was 40 minutes. Time to perform other separately billable procedures was not included in the critical care time. My time did not include minutes spent treating any other patients simultaneously or on activities that did not directly contribute to the patient's treatment. The services I provided to this patient were to treat and/or prevent clinically significant deterioration that could result in: Hypoxia, cardiac arrest, multiorgan dysfunction I provided critical care services requiring my management, as noted below: Chart data review, documentation time, medication orders and management, vital sign assessments/reviewing monitor data, ordering and reviewing lab tests, ordering and interpreting/reviewing x-rays and diagnostic studies, care of the patient and discussion of the patient with the admitting physicians. Medical Decision Making MDM Narrative Medical Screen Exam Complete: Yes Emergency Medical Condition: Yes Differential Diagnosis Differential Diagnosis: CHF, pneumonia, sepsis, COPD Medical Records Medical records reviewed: Yes I reviewed the patient's medical records. 82-year-old male arrives to the ER by EMS. History is provided by EMS by the patient's daughter. The patient diagnosed with a past few days he has been desaturating at home. He has a history of COPD and CHF. The nebulizer treatments helped initially however today there were not helpful. EMS reports on scene the O2 sat was in the 80s. He received high flow oxygen and nebulized albuterol in route here. Heart rate 130s here. Blood pressure initially 200/ 100 however trended down to about 160/90. BiPAP was started here. O2 sat has trended towards the high 90s with 100% FiO2 on BiPAP. Cefepime vancomycin started. The daughter notes urination has been normal and that there is no increasing edema in the bilateral lower extremities. Blood cultures drawn. The sepsis protocol was initiated. Case discussed with hospitalist who requested application release manager management. Case discussed with Dr. Parks for the application release manager service. Family educated regarding plan and is amenable with it. Tachycardia in the setting of CHF and COPD is noted. Gentle hydration started here 500 cc normal saline bolus. Lab Data Lab results reviewed: Yes I reviewed the patient's lab results. Lab results narrative: Lactic acid is 2.1 Troponin 0.03 The BNP is 330 LFTs are unremarkable Result diagrams: 12/19/17 21:30 12/19/17 21:30 Lab Results 12/19/17 12/19/17 12/19/17 Range/Units 21:30 21:30 21:30 WBC 26.3 H (4.0-11.0) th/mm3 RBC 4.38 L (4.50-5.90) mil/mm3 Hgb 13.2 (13.0-17.0) gm/dL Hct 39.7 (39.0-51.0) % MCV 90.6 (80.0-100.0) fL MCH 30.2 (27.0-34.0) pg MCHC 33.3 (32.0-36.0) % RDW 14.4 (11.6-17.2) % Plt Count 301 D (150-450) th/mm3 MPV 8.0 (7.0-11.0) fL Prelim Diff (Auto) Slide review pending Neut % (Auto) 81.8 H (16.0-70.0) % Lymph % (Auto) 9.1 (9.0-44.0) % [place] % (Auto) 8.9 H (0.0-8.0) % Eos % (Auto) 0.1 (0.0-4.0) % Baso % (Auto) 0.1 (0.0-2.0) % Neut # (Auto) 21.5 H (1.8-7.7) th/mm3 Lymph # (Auto) 2.4 (1.0-4.8) th/mm3 [place] # (Auto) 2.3 H (0.0-0.9) th/mm3 Eos # (Auto) 0.0 (0.0-0.4) th/mm3 Baso # (Auto) 0.0 (0.0-0.2) th/mm3 WBC Differential . Diff Scan Auto diff confirmed Differential Comment . PT 11.6 (9.8-11.6) sec INR 1.1 Ratio APTT 24.7 (24.3-30.1) sec Sodium 141 (136-145) meq/L Potassium 4.9 (3.5-5.1) meq/L Chloride 99 (98-107) meq/L Carbon Dioxide 36.6 H (21.0-32.0) meq/L Anion Gap 5 (5-15) meq/L BUN 29 H (7-18) mg/dL Creatinine 0.96 (0.60-1.30) mg/dL Estimated GFR 75 L (>89) mL/min Random Glucose 194 H (74-106) mg/dL Lactic Acid (0.4-2.0) mmol/L Calcium 8.6 (8.5-10.1) mg/dL Phosphorus 3.7 (2.5-4.9) mg/dL Magnesium 2.0 (1.5-2.5) mg/dL Total Bilirubin 0.9 (0.2-1.0) mg/dL AST 33 (15-37) U/L ALT 35 (12-78) U/L Alkaline Phosphatase 213 H (45-117) U/L Total Creatine Kinase 51 (39-308) U/L Troponin I 0.03 (0.02-0.05) ng/mL B-Natriuretic Peptide (0-100) pg/mL Total Protein 7.6 (6.4-8.2) g/dL Albumin 3.1 L (3.4-5.0) g/dL Lipase 128 (73-393) U/L 12/19/17 12/19/17 Range/Units 21:30 21:30 WBC (4.0-11.0) th/mm3 RBC (4.50-5.90) mil/mm3 Hgb (13.0-17.0) gm/dL Hct (39.0-51.0) % MCV (80.0-100.0) fL MCH (27.0-34.0) pg MCHC (32.0-36.0) % RDW (11.6-17.2) % Plt Count (150-450) th/mm3 MPV (7.0-11.0) fL Prelim Diff (Auto) Neut % (Auto) (16.0-70.0) % Lymph % (Auto) (9.0-44.0) % [place] % (Auto) (0.0-8.0) % Eos % (Auto) (0.0-4.0) % Baso % (Auto) (0.0-2.0) % Neut # (Auto) (1.8-7.7) th/mm3 Lymph # (Auto) (1.0-4.8) th/mm3 [place] # (Auto) (0.0-0.9) th/mm3 Eos # (Auto) (0.0-0.4) th/mm3 Baso # (Auto) (0.0-0.2) th/mm3 WBC Differential Diff Scan Differential Comment PT (9.8-11.6) sec INR Ratio APTT (24.3-30.1) sec Sodium (136-145) meq/L Potassium (3.5-5.1) meq/L Chloride (98-107) meq/L Carbon Dioxide (21.0-32.0) meq/L Anion Gap (5-15) meq/L BUN (7-18) mg/dL Creatinine (0.60-1.30) mg/dL Estimated GFR (>89) mL/min Random Glucose (74-106) mg/dL Lactic Acid 2.1 H (0.4-2.0) mmol/L Calcium (8.5-10.1) mg/dL Phosphorus (2.5-4.9) mg/dL Magnesium (1.5-2.5) mg/dL Total Bilirubin (0.2-1.0) mg/dL AST (15-37) U/L ALT (12-78) U/L Alkaline Phosphatase (45-117) U/L Total Creatine Kinase (39-308) U/L Troponin I (0.02-0.05) ng/mL B-Natriuretic Peptide 330 H (0-100) pg/mL Total Protein (6.4-8.2) g/dL Albumin (3.4-5.0) g/dL Lipase (73-393) U/L Imaging Data Attestation: I personally reviewed and interpreted this imaging study as follows : My impression: Opacification of the left lung noted with some density at the right base concerning for bilateral pneumonia Radiologist's impression: Chest X-Ray 12/19/17 21:26 CONCLUSION: Worsening airspace process right lower lung most likely pneumonia with completely opacified left hemithorax probably due to a pleural effusion and/or left lung consolidation/collapse. Underlying mass is difficult to exclude. ECG Data Attestation: I personally reviewed and interpreted this ECG as follows: Discharge Plan Discharge Disposition Patient Disposition: 30 Still Patient Physicians Team ED Provider: Renny Mccarthy Primary Care Provider: UNKNOWN, Attending Provider: Zac Parks Discharge Interventions Interventions: Vital Signs Last Done: 12/19/17 22:05 Status ED Status: Admitted Patient
[2017-12-19] MEDS ORDERED: Vancomycin Inj 1,250 MG in Sodium Chlor 0.9% Inj 250 ML IV.SIG ONE (22:40)
--- NOTE | 2017-12-19 23:21 | P.HPCC ---
History of Present Illness Primary Care Physician: UNKNOWN History of Present Illness: 82-year-old male with past medical history of COPD and CHF presents for an evaluation of shortness of breath and hypoxemia worsening over past few days. The nebulizer treatments helped initially however today there were not helpful. EMS reports on scene the O2 sat was in the 80s. He received high flow oxygen and nebulized albuterol in route here. His blood pressure initially in the emergency department was 200/100 however trended down to about 160/90. BiPAP was started in the emergency department with improvement in his O2 sat that has trended towards the high 90s with 100% FiO2 on BiPAP. Shortly after transfer to ICU the patient continues to to be more hypoxemic and restless requiring endotracheal intubation and mechanical ventilation. Inpatient Certification: I certify that the inpatient services were ordered in accordance with Medicare regulations governing the order. 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 - Medical History Medical History: Medical History (Last Reviewed 11/19/17 @ 10:08 by Mir Srinivasan) COPD (chronic obstructive pulmonary disease) Diabetes Kidney stone Pneumothorax - Surgical History Surgical History: Surgical History (Last Reviewed 11/19/17 @ 10:08 by Mir Srinivasan) H/O hernia repair S/P lobectomy of lung - Family History Family History: Family History (Last Reviewed 11/16/17 @ 09:09 by Manuela Álvarez) Other Unknown family medical history - Tobacco History Second Hand Smoke Exposure: No Smoking Status: Unknown if ever smoked Tobacco Type: Cigarettes Packs Per Day: 5 Years Smoked: 72 Smoking End Date: 2015 - Alcohol History How Often Do You Have a Drink Containing Alcohol: Never - Substance Use History Substance History: No History of Abuse - Travel History Recent Travel in the [place] Within the Last 8 Weeks: No Recent Travel Out of the Country Within the Last 8 Weeks: No - Immunization History Tetanus Immunization: Unable to Assess Hx Influenza Vaccine This Season: Unable to Assess Medications and Allergies Active Medications: Active Medications Nitroglycerin/Dextrose (Nitroglycerin Drip Premix) 50 mg in 250 mls @ 0 mls/hr IV.CONT TITRATE PRN; Protocol PRN Reason: Per Protocol Vancomycin HCl 1,250 mg/ (Sodium Chloride) 262.5 mls @ 250 mls/hr IV.SIG ONCE ONE Stop: 12/19/17 23:42 Last Admin: 12/19/17 23:16 Dose: 250 mls/hr Current Medications Acetaminophen (Tylenol) 650 mg PO Q6H PRN PRN Reason: PAIN 1-10 AND/OR FEVER >101F Al Hydroxide/Mg Hydroxide (Milk Of Magnesia Liq) 30 ml PO Q12H PRN PRN Reason: Mild Constipation Albuterol (Duoneb Neb (Za)) 1 ampul NEB Q4HR NEB ZA Last Admin: 12/20/17 00:09 Dose: 1 ampul Albuterol (Duoneb Neb (Prn)) 1 ampul NEB Q2HR NEB PRN PRN Reason: WHEEZING Bisacodyl (Dulcolax Supp) 10 mg RECTAL DAILY PRN PRN Reason: SEVERE CONSITIPATION Budesonide (Pulmocort Respule Neb) 0.5 mg NEB BID NEB ZA Chlorhexidine Gluconate (Chlorhexidine 2% Cloth) 3 pack TOPICAL DAILY@0400 PRN PRN Reason: Extra cloth needed Stop: 12/25/17 03:59 Chlorhexidine Gluconate (Chlorhexidine 2% Cloth) 3 pack TOPICAL DAILY@0400 ZA Stop: 12/25/17 03:59 Enoxaparin Sodium (Lovenox Inj) 40 mg SQ Q24H ZA Famotidine (Pepcid Pf Inj) 20 mg IV.PUSH Q12HR ZA Furosemide (Lasix) 40 mg PO DAILY ZA Nitroglycerin/Dextrose (Nitroglycerin Drip Premix) 50 mg in 250 mls @ 0 mls/hr IV.CONT TITRATE PRN; Protocol PRN Reason: Per Protocol Sodium Chloride (Ns Inj) 500 mls @ 0 mls/hr IV.SIG BOLUS ZA Piperacillin/Tazobactam/Dextrose (Zosyn 4.5 Gm Premix) 4.5 gm in 100 mls @ 200 mls/hr IV.SIG Q6H ZA Azithromycin 500 mg/ Sodium (Chloride) 250 mls @ 250 mls/hr IV.SIG Q24H ZA Lactulose (Lactulose Liq) 30 ml PO DAILY PRN PRN Reason: SEVERE CONSITIPATION Methylprednisolone Sodium Succinate (Solumedrol Inj) 40 mg IV.PUSH Q8HR ZA Morphine Sulfate (Morphine Inj) 2 mg IV.PUSH Q2H PRN PRN Reason: PAIN SCALE 6 TO 10 Multivitamins/Minerals (Theragran-M) 1 tab PO DAILY [facility] Ondansetron HCl (Zofran Inj) 4 mg IV.PUSH Q6H PRN PRN Reason: NAUSEA OR VOMITING Senna/Docusate Sodium (Flor-Colace) 1 tab PO BID [facility] Sennosides (Senokot) 17.2 mg PO Q12H PRN PRN Reason: Moderate Constipation Sodium Chloride (Ns Flush) 2 ml IV.FLUSH BID [facility] Sodium Chloride (Ns Flush) 2 ml IV.FLUSH PRN PRN PRN Reason: FLUSH AFTER USING IV ACCESS Allergies Allergy/AdvReac Type Severity Reaction Status Date / Time No Known Allergies Allergy Verified 12/19/17 21:39 Home Medications Medication Instructions Recorded Confirmed Type albuterol sulfate 2.5 mg INHALATION Q2H PRN 12/19/17 12/19/17 History budesonide 0.5 mg INHALATION BID 12/19/17 12/19/17 History furosemide 40 mg PO DAILY 12/19/17 12/19/17 History ipratropium-albuterol 3 ml INHALATION Q4H 12/19/17 12/19/17 History multivitamin with minerals 1 tab PO DAILY 12/19/17 12/19/17 History potassium bicarb-citric acid 1 tab PO DAILY 12/19/17 12/19/17 History Results - Labs CBC & Chem 7: 12/20/17 03:45 12/20/17 03:45 Labs: Short CBC 12/19/17 Range/Units 21:30 WBC 26.3 H (4.0-11.0) th/mm3 Hgb 13.2 (13.0-17.0) gm/dL Hct 39.7 (39.0-51.0) % Plt Count 301 D (150-450) th/mm3 [facility] 12/19/17 21:30 Sodium 141 Potassium 4.9 Chloride 99 Carbon Dioxide 36.6 H BUN 29 H Creatinine 0.96 Calcium 8.6 Cardiac Enzymes 12/19/17 Range/Units 21:30 Total Creatine Kinase 51 (39-308) U/L Troponin I 0.03 (0.02-0.05) ng/mL Liver Function 12/19/17 Range/Units 21:30 Total Bilirubin 0.9 (0.2-1.0) mg/dL AST 33 (15-37) U/L ALT 35 (12-78) U/L Alkaline Phosphatase 213 H (45-117) U/L Albumin 3.1 L (3.4-5.0) g/dL - Imaging Impressions Chest X-Ray 12/19/17 21:26 CONCLUSION: Worsening airspace process right lower lung most likely pneumonia with completely opacified left hemithorax probably due to a pleural effusion and/or left lung consolidation/collapse. Underlying mass is difficult to exclude. Exam Vital signs: Vital Signs 12/19/17 21:24 12/19/17 21:26 12/19/17 21:35 Temperature 97.6 F Pulse Rate 138 H Respiratory Rate 39 H Blood Pressure 183/86 H Pulse Oximetry 65 L 94 L 95 12/19/17 22:05 12/19/17 23:11 Temperature Pulse Rate 127 H 126 H Respiratory Rate 40 H 34 H Blood Pressure 173/74 H 137/53 L Pulse Oximetry 95 97 Intake & Output 12/19/17 12/19/17 12/20/17 06:59 18:59 06:59 Weight 68.039 kg - Constitutional moderate distress, chronically ill appearing, disheveled - Routine HEENT Exam Head: Present: normocephalic, atraumatic Eye: Present: PERRL ENT: Present: mucous membranes moist - Routine Neck Exam Present: supple, full ROM. Absent: JVD, carotid bruit - Routine Respiratory Exam Present: accessory muscle use, patient mechanically ventilated, rhonchi, wheezes. Absent: stridor, crackles - Routine Cardiovascular Exam Present: RRR, S1, S2, tachycardia - Routine Abdominal Exam Present: soft, normoactive bowel sounds. Absent: tenderness, distended - Routine Extremities Exam Absent: cyanosis, clubbing, edema - Routine Skin Exam Present: intact. Absent: cyanosis, erythema - Routine Neurological Exam Present: moving all extremities Septic Shock Reassessment Septic shock perfusion: reassessment completed Caprini VTE Risk Assessment Caprini VTE Risk Assessment: Moderate/High Risk (score >= 2) Caprini Risk Assessment Model: Point Value = 1 Point Value = 2 Point Value = 3 Point Value = 5 Age 41-60 Minor surgery BMI > 25 kg/m2 Swollen legs Varicose veins or History of unexplained or recurrent spontaneous Oral contraceptives or hormone replacement Sepsis (< 1 month) Serious lung disease, including pneumonia (< 1 month) Abnormal pulmonary function Acute myocardial infarction Congestive heart failure (< 1 month) History of inflammatory bowel disease Medical patient at bed rest Age 61-74 Arthroscopic surgery Major open surgery (> 45 min) Laparoscopic surgery (> 45 min) Malignancy Confined to bed (> 72 hours) Immobilizing plaster cast Central venous access Age >= 75 History of VTE Family history of VTE Factor V Leiden Prothrombin [id number] Lupus anticoagulant Anticardiolipin antibodies Elevated serum homocysteine Heparin-induced thrombocytopenia Other congenital or acquired thrombophilia Stroke (< 1 month) Elective arthroplasty Hip, pelvis, or leg fracture Acute spinal cord injury (< 1 month) Prophylaxis Regimen: Total Risk Factor Score Risk Level Prophylaxis Regimen 0-1 Low Early ambulation 2 Moderate Order ONE of the following: *Sequential Compression Device (SCD) *Heparin 5000 units SQ BID 3-4 Higher Order ONE of the following medications: *Heparin 5000 units SQ TID *Enoxaparin/Lovenox 40 mg SQ daily (WT < 150 kg, CrCl > 30 mL/min) *Enoxaparin/Lovenox 30 mg SQ daily (WT < 150 kg, CrCl > 10-29 mL/min) *Enoxaparin/Lovenox 30 mg SQ BID (WT < 150 kg, CrCl > 30 mL/min) AND/OR *Sequential Compression Device (SCD) 5 or more Highest Order ONE of the following medications: *Heparin 5000 units SQ TID (Preferred with Epidurals) *Enoxaparin/Lovenox 40 mg SQ daily (WT < 150 kg, CrCl > 30 mL/min) *Enoxaparin/Lovenox 30 mg SQ daily (WT < 150 kg, CrCl > 10-29 mL/min) *Enoxaparin/Lovenox 30 mg SQ BID (WT < 150 kg, CrCl > 30 mL/min) AND *Sequential Compression Device (SCD) Assessment and Plan - Assessment and Plan Plan: Respiratory failure -Community-acquired pneumonia -Broad-spectrum antibiotic -DuoNeb scheduled and as needed -Vent bundle -Pulmonary consultation COPD -DuoNeb scheduled and as needed -Budesonide -IV steroid Diabetes -Insulin sliding DVT GI prophylaxis -Teds SCDs -Lovenox -Pepcid 35 minutes of critical care
[2017-12-19] MEDS ORDERED: Bisacodyl 10 MG Supp RECTAL PRN (23:30)
[2017-12-19] MEDS ORDERED: Sodium Chlor 0.9% Inj 500 ML IV.SIG SCH (23:45)
[2017-12-20 00:42] LABS: ABG Base Excess 7.9 mmol/L (-2-2); ABG PCO2 81 mmHg (38-42); ABG PO2 76 mmHg (61-120)
[2017-12-20] MEDS: Piperacil/Tazo 4.5 GM Premix 4.5 GM/100 ML BAG IV.SIG SCH ×4 (01:54→20:14)
[2017-12-20] MEDS: Azithromycin Inj 500 MG in Sodium Chlor 0.9% Inj 250 ML IV.SIG SCH (01:54)
[2017-12-20 02:42] LABS: ABG Base Excess 5.4 mmol/L (-2-2); ABG PCO2 75 mmHg (38-42); ABG PO2 104 mmHG (61-120)
[2017-12-20] MEDS ORDERED: Chlorhexidine Gluconate 2% 1 Pack (2 Cloths) TOPICAL PRN (04:00)
[2017-12-20] MEDS ORDERED: Etomidate Inj 40 MG/20 ML Vial IV.PUSH ONE (04:00)
[2017-12-20] MEDS ORDERED: Succinylcholine Inj 200 MG/10 ML Vial ONE (04:01)
[2017-12-20] MEDS ORDERED: Dextrose 50% in Water 50 ML Vial IV.PUSH PRN (04:17)
[2017-12-20] MEDS: Chlorhexidine Gluconate 2% 1 Pack (2 Cloths) TOPICAL SCH (04:24)
[2017-12-20] MEDS: Midazolam 50 MG/50 ML Inj 50 MG/50 ML BAG IV.CONT PRN ×2 (04:25→20:49)
[2017-12-20] MEDS: fentaNYL 10 mcg/mL Premix Drip 2,500 MCG/250 ML BAG IV.SIG PRN (04:26)
[2017-12-20 04:45] LABS: Activated Partial Thrombo Time 26.1 sec (24.3-30.1); INR 1.2 Ratio
[2017-12-20 04:46] LABS: Hematocrit 35.8 % (39.0-51.0); Hemoglobin 11.6 gm/dL (13.0-17.0); Lymph # (Auto) 0.7 th/mm3 (1.0-4.8); Lymph % (Auto) 4.4 % (9.0-44.0); Mean Corpuscular HGB Conc 32.4 % (32.0-36.0); Mean Corpuscular Hemoglobin 29.9 pg (27.0-34.0); Mean Corpuscular Volume 92.1 fL (80.0-100.0); Mean Platelet Volume 8.4 fL (7.0-11.0); Mono # (Auto) 1.2 th/mm3 (0.0-0.9); Mono % (Auto) 7.4 % (0.0-8.0); Neut # (Auto) 14.6 th/mm3 (1.8-7.7); Neut % (Auto) 88.2 % (16.0-70.0); Platelet Count 154 th/mm3 (150-450); Red Blood Count 3.89 mil/mm3 (4.50-5.90); Red Cell Distribution Width 14.2 % (11.6-17.2); White Blood Count 16.6 th/mm3 (4.0-11.0)
[2017-12-20 05:11] LABS: Albumin 2.6 g/dL (3.4-5.0); Anion Gap 7 meq/L (5-15); Aspartate Aminotransferase 27 U/L (15-37); Blood Urea Nitrogen 33 mg/dL (7-18); Calcium 8.2 mg/dL (8.5-10.1); Carbon Dioxide 34.5 meq/L (21.0-32.0); Chloride 102 meq/L (98-107); Glomerular Filtration Rate 76 mL/min (>89); Glucose,Random 180 mg/dL (74-106); Potassium 4.7 meq/L (3.5-5.1); Sodium 143 meq/L (136-145)
--- NOTE | 2017-12-20 05:14 | XR ---
EXAM DATE: 12/20/2017 4:58 AM EDT AGE/SEX: 82 years / Male INDICATIONS: Intubation. CLINICAL DATA: This is the patient's subsequent encounter. Patient reports that signs and symptoms h ave been present for 2 days and indicates a pain score of Nonresponsive. MEDICAL/SURGICAL HISTORY: Chronic obstructive pulmonary disease. Diabetes. Lobectomy. COMPARISON: [facility] [place], CHEST 1V SINGLE AP, 12/19/2017. . FINDINGS: Right base parenchymal consolidation slightly improved but there is increased infiltrate of the right upper lobe. Modestly improved aeration of the left lung. A large left pleural effusion is present. There is left- sided volume loss again noted. Endotracheal tube tip is approximately 3 cm above the camilla. Nasogastric tube present, tip near the GE junction. CONCLUSION: 1. Worsening right upper lobe consolidation. 2. Slightly improved right base consolidation. 3. Volume loss, consolidation and pleural effusion on the left slightly improved. Electronically signed by: Arvin Lopez MD 12/20/2017 5:13 AM EDT
[2017-12-20 05:18] LABS: Alanine Aminotransferase 29 U/L (12-78); Alkaline Phosphatase 160 U/L (45-117); Total Protein 6.3 g/dL (6.4-8.2); Troponin I 0.42 ng/mL (0.02-0.05)
[2017-12-20] MEDS ORDERED: Sod Chloride 0.9% Inj 1,000 ML IV.SIG SCH (05:56)
[2017-12-20] MEDS ORDERED: Vancomycin Consult Pharmacy OTHER PRN (06:01)
[2017-12-20] MEDS: MethylPREDNISolone Sod Succinate Inj 40 MG/ML Vial IV.PUSH SCH ×3 (06:11→22:21)
[2017-12-20] MEDS: Insulin NovoLOG Aspart Correctional Sugar Inj SQ SCH ×3 (06:11→17:49)
[2017-12-20] MEDS ORDERED: Sod Chloride 0.9% Inj 1,000 ML IV.SIG ONE (06:45)
[2017-12-20] MEDS ORDERED: Famotidine PF Inj 20 MG/2 ML Vial IV.PUSH SCH (09:00)
[2017-12-20] MEDS ORDERED: CITRIC ACID PO SCH (09:00)
[2017-12-20] MEDS ORDERED: POTASSIUM BICARBONATE PO SCH (09:00)
[2017-12-20] MEDS ORDERED: Multivitamin/Minerals Therapeutic Tablet PO SCH (09:00)
--- NOTE | 2017-12-20 09:05 | P.PNCC ---
Subjective Subjective Remarks/Hospital Course: Hospital Course: 82-year-old male with past medical history of COPD and CHF presents for an evaluation of shortness of breath and hypoxemia worsening over past few days. The nebulizer treatments helped initially however today there were not helpful. EMS reports on scene the O2 sat was in the 80s. He received high flow oxygen and nebulized albuterol in route here. His blood pressure initially in the emergency department was 200/100 however trended down to about 160/90. BiPAP was started in the emergency department with improvement in his O2 sat that has trended towards the high 90s with 100% FiO2 on BiPAP. Shortly after transfer to ICU the patient continues to to be more hypoxemic and restless requiring endotracheal intubation and mechanical ventilation. Subjective: 12/20: intubated and sedated. still hypercarbic with [id number] respiratory acidosis. family unhappy that patient was intubated: they insisted last night on being a Full Code, but apparently the daughter required that she be notified of exactly what SpO2 the patient was at, and it had to reach a certain low level before she would be ok with intubation. Per overnight records , patient presented with severe respiratory distress, and family reports that EMS stated patient "wouldn't make it all the way to [facility]" due to his pulmonary instability. This morning, hypoxia is somewhat improved. remains on broad spectrum antibiotics. I explained to family that this is likely a new pneumonia causing respiratory failure. I also explained that after recent hip fracture and recent prolonged hospitalization, his baseline end-stage lung disease and NYHA Class IV symptoms are likely to worsen, and this may be worsening of his overall end-stage disease processes. Family continues to state that our facility caused his lung failure during the prior hospitalization. They are also concerned about his poor peripheral perfusion and oliguria, which concerns me also: I explained that his heart failure could not tolerate significant amount of iv fluids, and we have already given him 1500mL over the last 12 hours, but they have insisted on additional iv fluids. I explained he had severe sepsis and the mortality associated with this. Daughter continues to remind me that her father "is coming home with her and getting better" as she has stated multiple times in the past. Objective Vital Signs / I&O: Vital Signs 12/19/17 21:24 12/19/17 21:26 12/19/17 21:35 Temperature 36.4 C Pulse Rate 138 H Respiratory Rate 39 H Blood Pressure 183/86 H Pulse Oximetry 65 L 94 L 95 12/19/17 22:05 12/19/17 23:11 12/20/17 00:09 Temperature Pulse Rate 127 H 126 H 117 H Respiratory Rate 40 H 34 H 32 H Blood Pressure 173/74 H 137/53 L Pulse Oximetry 95 97 95 12/20/17 00:15 12/20/17 00:55 12/20/17 02:00 Temperature 36.8 C Pulse Rate 137 H 120 H Respiratory Rate 34 H 33 H Blood Pressure 149/67 H 135/72 Pulse Oximetry 96 96 12/20/17 03:00 12/20/17 03:15 12/20/17 04:00 Temperature Pulse Rate 108 H 106 H 118 H Respiratory Rate 33 H 23 39 H Blood Pressure 106/70 136/69 Pulse Oximetry 88 L 12/20/17 04:10 12/20/17 05:40 12/20/17 05:45 Temperature Pulse Rate 102 H 102 H Respiratory Rate 19 39 H 40 H Blood Pressure 75/48 L Pulse Oximetry 99 99 98 12/20/17 06:00 12/20/17 06:15 12/20/17 06:30 Temperature Pulse Rate 97 H 95 H 94 H Respiratory Rate 19 18 19 Blood Pressure 83/47 L 91/52 L 97/55 L Pulse Oximetry 100 100 100 12/20/17 06:45 12/20/17 07:26 Temperature Pulse Rate 97 H 95 H Respiratory Rate 45 H 18 Blood Pressure 91/50 L Pulse Oximetry 100 99 Intake & Output 12/19/17 12/20/17 12/20/17 18:59 06:59 18:59 Intake Total 100 / 100 Output Total 175 / 175 Balance -75 / -75 Weight 62 kg Intake: IV 100 / 100 Maxipime Inj 2,000 MG In NS Inj 100 / 100 100 ML @ 200 mls/hr IV.SIG ONCE ONE Rx#:[id number] Output: Urine 175 / 175 Other: Weight On Admission 62 kg Result Diagrams: 12/20/17 03:45 12/20/17 03:45 Objective Remarks: GENERAL: Frail elderly male, intubated, sedated, critically ill, lying in bed HEENT: Normocephalic. Atraumatic. Pupils equal, round, reactive, conjugate. Mucous membranes are moist NECK: Trachea is midline. There is a moderate amount of JVD mcfp up the mid neck.. CHEST: PRVC, FiO2 100%, rate of 8, tidal volume 450. Equal chest rise. Absent breath sounds on the left. Fine rales in the right lower. Rhonchi in the right upper. Prolonged expiratory time. No wheezing. CARDIOVASCULAR: Normal rate, regular rhythm. Sinus. Borderline hypotensive with a systolic of 96. ABDOMEN: Soft, nontender, nondistended. No guarding. MUSCULOSKELETAL: Pulses 2+. No peripheral edema. Extremities are cool and poorly perfused. NEUROLOGICAL: RASS -4. Moves all extremities. Weakly withdraws 4. Sedated. 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 He now presents with worsening decompensated hypoxic and hypercarbic respiratory failure most likely combination of his underlying end- stage disease process as well as a new right lower lobe pneumonia. He has been healthcare associated in the recent past and we will cover him empirically for healthcare associated pneumonia. Given his end-stage disease processes and the clinical history suggestive of acute respiratory decompensation, I agree with the decision to proceed with intubation given that he remained a full code. I do think a DNR CODE STATUS and hospice would be appropriate for this patient with end-stage disease processes, but the family has always pressed for aggressive measures and continues to press for aggressive measures at this time. I will consult palliative care to have them assist with family decision- making, as this time it may be very difficult to separate him from mechanical ventilation, and he may require tracheostomy and long-term vent weaning. He remains very critically ill in severe sepsis and respiratory failure at this time. Plan by systems: Neurologic: Acute metabolic encephalopathy Versed and fentanyl for goal RASS -2 Frequent neurochecks Avoid long-acting sedatives Daily sedation vacation Respiratory: End-stage COPD Status post left pneumonectomy Right lower lobe healthcare associated pneumonia Congestive heart failure secondary to severe pulmonary hypertension and right ventricular dysfunction On 5 L oxygen by nasal cannula at home continuously Sats at home range between 82-87% vent bundle, hob elevated, nebs iv steroids wean fio2 for goal spo2 > 86% no SBT today given hypoxemia Pulmonary consultation Cardiovascular: Congestive heart failure secondary to pulmonary hypertension 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 However, family insists on IV fluids for poor perfusion and oliguria. Will have to be gentle with this, and so we will start normal saline maintenance IV fluids at 100 cc an hour and avoid boluses. We have counseled the family extensively on the risks of IV fluids, but they are insistent. Renal: Oliguria Acute kidney injury -- Strict I/Os Other creatinine is less than 1, given his poor nutrition and skeletal muscle, this is likely a low GFR for him and in the setting of oliguria he most certainly has acute kidney injury secondary to severe sepsis Straight cath every 6 hours. We will avoid Bethea if possible given risk of catheter associated UTI Maintenance IV fluids as above Daily BMP FEN/GI: Severe acute protein calorie malnutrition Hyponatremia Place orogastric tube Start tube feeds Maintenance fluids discussion as above Hyponatremia likely secondary to total body volume overload and hypervolemic hyponatremia, however and severe sepsis likely intravascularly volume deplete. Unable to diurese successfully at this point ICU electrolyte protocol Daily BMP, magnesium, phosphorus Heme/ID: Healthcare associated pneumonia Severe sepsis- present on admission Vancomycin with pharmacy consultation Zosyn Azithromycin this patient has been at home for some time and may have some component of community-acquired pathogens Sputum culture Blood cultures Urine UA with reflex urine culture Endocrine: Hyperglycemia of critical illness -- SSI Prophylaxis: GI Prophylaxis Pepcid DVT Prophylaxis -- SCDs Lovenox Lines: Peripheral IVs Dispo: Remain in ICU. Remains very critically ill with multiorgan dysfunction. Palliative care assistance appreciated. This patient remains critically ill with one or more organ systems which are or may become a threat to life. I have spent in excess of 49 minutes discontinuously in the care and management of this patient. This time is exclusive of procedures, and includes, but is not limited to, evaluation of the patient, review of the medical record, discussions with family, consultants, nursing staff, or respiratory therapy, and documentation in the medical record.
[2017-12-20] MEDS: Chlorhexidine 0.12% Oral Kit 15 ML UDC OROPHARYNG SCH ×2 (09:31→20:15)
[2017-12-20] MEDS: Furosemide 40 MG Tablet PO SCH (09:32)
[2017-12-20] MEDS: Enoxaparin Inj 40 MG/0.4 ML Syringe SQ SCH (09:32)
[2017-12-20] MEDS: Senna/Docusate Sodium 8.6/50 MG Tablet PO SCH ×2 (09:34→20:16)
[2017-12-20 09:45] LABS: ABG Base Excess 4.7 mmol/L (-2-2); ABG PCO2 57 mmHg (38-42); ABG PO2 186 mmHG (61-120)
[2017-12-20] MEDS: Sod Chloride 0.9% Inj 1,000 ML IV.CONT SCH ×2 (10:46→20:14)
--- NOTE | 2017-12-20 11:37 | ECG ---
Date Performed: 12/19/2017 Time Performed: 21:29:03 PTAGE: 82 years EKG: SINUS TACHYCARDIA POSSIBLE RIGHT VENTRICULAR CONDUCTION DELAY MINIMAL ST DEPRESSION ABNORMA L RHYTHM ECG Since the previous tracing, no significant change noted NO PREVIOUS TRACING DOCTOR: German Padron Interpretating Date/Time 12/20/2017 11:36:48
[2017-12-20] MEDS: Oral Hygiene Kit OROPHARYNG SCH ×2 (12:02→15:42)
[2017-12-20 12:33] LABS: Bacteria,Urine Rare /hpf; Bilirubin,Urine Negative (Negative); Clarity,Urine Hazy (Clear); Color,Urine Yellow (Yellw/Straw); Glucose,Urine (UA) 50 mg/dL (Negative); Hyaline Casts,Urine 1 /lpf (0-3); Leukocyte Esterase,Urine Negative (Negative); Mucus,Urine Few /lpf (Occasional); Nitrite,Urine Negative (Negative)
--- NOTE | 2017-12-20 12:55 | MB ---
cc: Myron Young MD DATE: 12/20/2017 HISTORY OF PRESENT ILLNESS: The patient is an 82-year-old male with a past medical history of COPD, diastolic CHF, severe pulmonary hypertension, diabetes mellitus, previous lobectomy of the lung, who presented to [facility] ED with worsening shortness of breath and hypoxemia with O2 saturation in the 80s. The patient was initially tried on a BiPAP and his ABG showed acute hypercapnic respiratory acidosis. ABG on the BiPAP showed a pH of 7.25, CO2 of 75, PaO2 of 104, bicarbonate of 32 and saturation of 94%. The patient continued to be hypoxemic and restless, requiring intubation and mechanical ventilation. When seen, he is sedated and on full mechanical ventilation. A chest x-ray post intubation showed right upper lobe consolidation, slightly improved right basilar consolidation, volume loss, consolidation and pleural effusion on the left slightly improved. The rest of the history is limited as the patient is intubated and most of the history was obtained from reviewing the medical records. PAST MEDICAL HISTORY: Significant for COPD, diastolic CHF, diabetes mellitus, renal stone, previous pneumothorax. PAST SURGICAL HISTORY: Previous hernia repair, previous lobectomy of the lung. ALLERGIES: NO KNOWN DRUG ALLERGIES. MEDICATIONS AT HOME: Include: 1. Albuterol. 2. Multivitamins. 3. Lasix. FAMILY HISTORY: Noncontributory to present illness. SOCIAL HISTORY: Previous smoker, nondrinker. REVIEW OF SYSTEMS: Limited as the patient is intubated. PHYSICAL EXAMINATION: GENERAL: An 82-year-old male intubated and on full mechanical ventilation. VITAL SIGNS: Temperature 97.6, pulse 95, respiratory rate 18, blood pressure 97/55, saturation 99%. HEENT: Atraumatic, normocephalic. Pupils are equal, round and reactive to light and accommodation. Extraocular muscles are intact. Conjunctivae are pink. Nonicteric sclerae. Oral mucosa within normal. NECK: Supple. No JVD, adenopathy or thyromegaly. Trachea in the midline. CARDIOVASCULAR: Regular rate and rhythm. Normal S1, S2. No murmurs, rubs or gallops noted. PULMONARY: Bilateral equal air entry with a few coarse breath sounds. ABDOMEN: Soft, nontender. No distention. Positive bowel sounds. EXTREMITIES: No cyanosis, clubbing or edema. NEUROLOGIC: Intubated and sedated. LABORATORY DATA: WBC 16.6, hemoglobin 11.6, hematocrit 35, platelet count 154. Sodium 143, potassium 4.7, chloride 102, CO2 of 34, BUN 33, creatinine 0.95, glucose 180. Troponin 0.34 and 0.42 on the following set. ABG on the BiPAP showed a pH of 7.26, CO2 of 75, pO2 of 104, bicarbonate 32 and saturation 94%. Chest x-ray post intubation showed worsening right upper lobe consolidation, slightly improved right base consolidation, volume loss, consolidation and pleural fusion on the left slightly improved. IMPRESSION: 1. Acute hypoxemic and hypercapnic respiratory failure requiring intubation. 2. Chronic obstructive pulmonary disease exacerbation. 3. Pneumonia. 4. Diastolic congestive heart failure. 5. Leukocytosis. 6. Severe pulmonary hypertension. RECOMMENDATIONS: 1. Continue with vent support and maintain sats above 92%. 2. Bronchodilators in the form of DuoNeb q.4 plus q.2 p.r.n. for shortness of breath. 3. Agree with IV steroids. He is currently on Solu-Medrol 40 mg IV q.8. 4. Check ABG post intubation. We will repeat chest x-ray in a.m. If there is any worsening in his left lung, the patient might need a bronchoscopy. 5. Continue with antibiotics in the form of vancomycin and Zosyn and monitor for signs of infection, which include fever and WBC. We will obtain a sputum culture with Gram stain, check Strep pneumoniae and Legionella urinary antigen. 6. Recent echocardiogram showed an EF of 60% to 65% with severe pulmonary hypertension and PA pressure 76 mmHg. 7. Continue with diuretics. He was placed on Lasix 40 mg daily. Monitor renal function and electrolyte replacement per protocol. 8. GI and DVT prophylaxis. He is on Lovenox 40 mg subcutaneous daily. 9. Further recommendations will be based on hospital course. Thank you for this consultation and allowing us to participate in this patient's care. MD AMAURI Kuo/magn[place] , 09:26 AM , 09:37 AM
[2017-12-20] MEDS ORDERED: Albumin Human 5% Inj 500 ML IV.SIG STA (13:08)
--- NOTE | 2017-12-20 13:11 | P.DIET ---
Nutritional Evaluation Type of nutrition evaluation: initial Nutrition consult regarding: Tube Feeding Objective - Diagnosis Sepsis, PNA, COPD Exacerbation, CHF - Objective % IBW: 116 (IBW = 118#) Body Weight Used for Calculations: Actual (62 kg) Energy Needs - Lower Range (kCal/kg): 25 Energy Needs - Upper Range (kCal/kg): 30 Lower Limit kCal/kg (kCals): 1,550 Upper Limit kCal/kg (kCals): 1,860 Lower Limit Protein Factor (Grams per Kg): 1.0 Upper Limit Protein Factor (Grams per Kg): 1.5 Lower Protein Needs (Protein): 62 Upper Protein Needs (Protein): 93 Dietitian Reviewed in Medical Record: Curent medications, Intake & Output, Labs , Medical history, Tube feeding Assessment Assessment: Pt is intubated and needs TFing to meet nutritional needs. Current order is for Glucerna 1.5 @ 60 mls/hr goal. Recommend Glucerna 1.5 @ 50 mls/hr goal to provide 1800 kcals, 99 gms protein and 911 mls of free water. Recommendations: Glucerna 1.5 @ 50 mls/hr goal Dietitian to Monitor: Lab values, Intake & Output, Tube feeding tolerance, Weight change, Medical course
[2017-12-20] MEDS: Famotidine PF Inj 20 MG/2 ML Vial IV.PUSH SCH (20:16)
[2017-12-20] MEDS: Vancomycin Inj 1,000 MG in Sodium Chlor 0.9% Inj 250 ML IV.SIG SCH (22:22)
[2017-12-21] MEDS: Insulin NovoLOG Aspart Correctional Sugar Inj SQ SCH ×4 (00:01→17:40)
[2017-12-21] MEDS: Oral Hygiene Kit OROPHARYNG SCH ×4 (00:02→15:24)
[2017-12-21] MEDS: Azithromycin Inj 500 MG in Sodium Chlor 0.9% Inj 250 ML IV.SIG SCH (01:13)
[2017-12-21] MEDS: Piperacil/Tazo 4.5 GM Premix 4.5 GM/100 ML BAG IV.SIG SCH ×4 (01:13→20:02)
--- NOTE | 2017-12-21 03:57 | XR ---
EXAM DATE: 12/21/2017 3:45 AM EDT AGE/SEX: 82 years / Male INDICATIONS: Shortness of breath, possible pulmonary disease. CLINICAL DATA: This is the patient's subsequent encounter. Patient reports that signs and symptoms h ave been present for 3 days and indicates a pain score of Nonresponsive. MEDICAL/SURGICAL HISTORY: Chronic obstructive pulmonary disease. Diabetes. Lobectomy. COMPARISON: [facility] [place]ST 1V SINGLE AP, 12/20/2017. . FINDINGS: Single AP view the chest. Endotracheal tube and nasogastric tube remain in place. Persistent extensiv e left-sided pleural opacity. Left lower lobe pulmonary consolidation again seen. Hazy right lung opa city unchanged. CONCLUSION: No significant interval change. Persistent left-sided pleural effusion and pulmonary parenchymal opac ity along with hazy right lung opacity. Electronically signed by: Maurilio Meredith MD 12/21/2017 3:55 AM EDT
[2017-12-21 05:24] LABS: ABG Base Excess 2.4 mmol/L (-2-2); ABG PCO2 59 mmHg (38-42); ABG PO2 83 mmHG (61-120)
[2017-12-21] MEDS: Sod Chloride 0.9% Inj 1,000 ML IV.CONT SCH (06:06)
[2017-12-21] MEDS: MethylPREDNISolone Sod Succinate Inj 40 MG/ML Vial IV.PUSH SCH ×3 (06:06→22:25)
[2017-12-21] MEDS: Chlorhexidine Gluconate 2% 1 Pack (2 Cloths) TOPICAL SCH (06:07)
[2017-12-21 07:17] LABS: Hematocrit 28.6 % (39.0-51.0); Hemoglobin 9.4 gm/dL (13.0-17.0); Mean Corpuscular HGB Conc 32.8 % (32.0-36.0); Mean Corpuscular Hemoglobin 30.4 pg (27.0-34.0); Mean Corpuscular Volume 92.5 fL (80.0-100.0); Mean Platelet Volume 8.9 fL (7.0-11.0); Platelet Count 112 th/mm3 (150-450); Red Blood Count 3.09 mil/mm3 (4.50-5.90); Red Cell Distribution Width 14.4 % (11.6-17.2); White Blood Count 9.2 th/mm3 (4.0-11.0)
[2017-12-21 07:31] LABS: INR 1.2 Ratio; Prothrombin Time 11.9 sec (9.8-11.6)
[2017-12-21 08:02] LABS: Alanine Aminotransferase 29 U/L (12-78); Albumin 2.4 g/dL (3.4-5.0); Alkaline Phosphatase 124 U/L (45-117); Anion Gap 9 meq/L (5-15); Aspartate Aminotransferase 35 U/L (15-37); Blood Urea Nitrogen 48 mg/dL (7-18); Calcium 7.5 mg/dL (8.5-10.1); Carbon Dioxide 29.9 meq/L (21.0-32.0); Chloride 110 meq/L (98-107); Glomerular Filtration Rate 65 mL/min (>89); Glucose,Random 304 mg/dL (74-106); Magnesium 2.4 mg/dL (1.5-2.5); Phosphorus 3.2 mg/dL (2.5-4.9); Potassium 4.9 meq/L (3.5-5.1); Sodium 149 meq/L (136-145); Total Protein 5.6 g/dL (6.4-8.2)
[2017-12-21] MEDS: Chlorhexidine 0.12% Oral Kit 15 ML UDC OROPHARYNG SCH ×2 (08:30→20:01)
[2017-12-21] MEDS: Furosemide 40 MG Tablet PO SCH (08:31)
[2017-12-21] MEDS: Senna/Docusate Sodium 8.6/50 MG Tablet PO SCH ×2 (08:32→22:25)
[2017-12-21] MEDS: Enoxaparin Inj 40 MG/0.4 ML Syringe SQ SCH (08:32)
[2017-12-21] MEDS: Famotidine PF Inj 20 MG/2 ML Vial IV.PUSH SCH ×2 (08:32→22:25)
--- NOTE | 2017-12-21 11:22 | P.CONPAL ---
Consult Service: Palliative Care Requesting Physician: Darrell Sorto Reason for Consult: a. To assist with evaluation and management of symptoms including: dyspnea, pain b. To assist medical decision maker(s) with: better understanding of current medical conditions; weighing benefits/burdens of medical treatment options; making medical treatment decisions. Primary Care Provider: UNKNOWN History of Present Illness History of Present Illness: This 82-year-old patient presented to the ED on 12/19/17, via EMS, for shortness of breath. Patient daughter reporting patient desaturating at home in the prior days nebulizer treatments initially helping however improving. EMS reports O2 sats in the 80s at their arrival. Started on high flow to during transport. * BiPAP initiated in the ED. O2 sats 90s on 100% FiO2 on BiPAP. Started on cefepime, vancomycin. Daughter reports normal urination. No increase in edema. Osborne cultures obtained. Lactic acid 2.1. Troponin 0 0.03. BNP 330. Leukocytosis 26.3. CBC otherwise unremarkable. BUN 29/creatinine 0.96. GFR 75. Glucose 194. CXR=Worsening airspace process right lower lung most likely pneumonia with completely opacified left hemithorax probably due to a pleural effusion and/or left lung consolidation/collapse. Underlying mass is difficult to exclude. Patient was admitted to ICU for further evaluation and management of sepsis. * Patient increasingly hypoxemic, intubated on arrival to ICU. Of note patient has had significant recent medical issues requiring hospitalization . He has multiple chronic comorbidities with end-stage disease processes. Critical care notes discussion with family regarding conditions, prognosis and consideration of hospice, and they expressed desire for full code. Palliative care was consulted to assist with clarification of goals of medical treatment. * CXR 12/21= no significant change, persistent left-sided pleural effusion and pulmonary parenchymal opacity along with hazy right lung opacity. Micro: BC no growth 2 days. Urine negative for Legionella, Streptococcus. Urine culture pending. Sputum culture pending. WBC now 9.2. H&H down slightly 9.4/28.6. BUN uptrending 48, creatinine 1.09. GFR 65. Albumin 2.4. Currently receiving tube feeding, tolerating. Patient seen in room, daughter and present. Dual visit with Norbert ASHLEY , as well as [address] [facility] palliative social professionals. Patient is minimally responsive on mechanical vent. He does become restless at times though seems to be soothed by family speaking to him in [place]. Otherwise no apparent discomfort in between these episodes. Met at bedside with , daughter, as well as patient's sister who participated via speaker phone family's phone. Family details that the patient had been [facility] for about 8 days prior to requiring acute hospitalization on 12/19. They report that he had not gotten any rehabilitation at [facility] that essentially he was still bedbound and the family was doing exercises with him. He was primarily sitting up in bed. They indicate he was eating good some days not as well other days they indicate he had been doing fine with no problems in the days leading up to 12/19 when he was acutely short of breath and had desaturation at home. d/w critical care Dr Sorto, D/w primary RN. Additional history per recent admission 11/13/17: Patient with known history CHF, diabetes, COPD, pulmonary fibrosis and asbestosis, presented to the ED after sustaining a fall in his home. He was lightheaded. Baseline 3-4 L nasal cannula requiring significant assistance with ADLs. Also with known history of LEFT thoracotomy and lobectomy/resection many years ago. Imaging finding of intertrochanteric fracture of proximal left hip. Also findings of osteopenia. Pulmonology evaluated patient and noted that he was cleared for surgery though may require BiPAP after. Suggested limited anesthesia secondary to moderately failure and/or pneumonia. Orthopedics consulted reviewed options family requested to proceed with operative management. During that admission noted during attending discussion with family daughter reports baseline mental status with some component of a dementia. Patient's primary language also reported to be a telemetry and though they requested no interpretation service be used during encounters because this would make him upset. During that hospital course patient did require ICU on BiPAP. Patient with some agitation. Anemia requiring transfusion postoperatively. Ongoing respiratory complication and concern for respiratory decompensation that could require mechanical ventilation and could result in difficulty weaning. Critical care notes discussion with family requested full CODE STATUS and continued aggressive management. Outpatient CT per Dr. Guerrier demonstrated pulmonary fibrosis and bronchiectasis. Patient did have a VQ scan during that admission with ventilation abnormally and perfume and of normal least left lower lobe pattern not typical of PE likely related to lobectomy. Avoiding CTA due to worsening renal function, family did not wish to assume risk. During that hospital course it is noted family requested transfer to [facility], critical care attempted to initiate that process. [facility] declined admission. Patient was also evaluated for LTAC, insurance apparently denied LTAC. Family appealed this and patient was later accepted by [facility]. He was discharged to [facility] 11/20/17 Function/Cognitive Trajectory: recent hospitalization + rehab for hip fx. Primarily bedbound most recently, required mod to max assist for ADls. Prior to hip fx ambulatory per family. Cognitively "usually sharp" per family, though 10/2017 admission notes some report of dementia per a daughter. [facility] - History History Provided By: Family Member, Assembler Ping Pong Table / EMT - Medical History Medical History: Medical History (Last Reviewed 12/21/17 @ 11:20 by GABI Goode) COPD (chronic obstructive pulmonary disease) Diabetes Kidney stone Pneumothorax - Surgical History Surgical History: Surgical History (Last Updated 12/21/17 @ 11:20 by GABI Goode) Status post hip surgery H/O hernia repair S/P lobectomy of lung - Family History Family History: Family History (Last Updated 12/21/17 @ 11:18 by GABI Goode) Other CAD (coronary artery disease) Unknown family medical history - Tobacco History Second Hand Smoke Exposure: No Smoking Status: Former smoker Tobacco Type: Cigarettes Packs Per Day: 5 Years Smoked: 72 Smoking End Date: 2015 - Alcohol History How Often Do You Have a Drink Containing Alcohol: Never - Substance Use History Substance History: No History of Abuse - Travel History Recent Travel in the [place] Within the Last 8 Weeks: No Recent Travel Out of the Country Within the Last 8 Weeks: No - Immunization History Tetanus Immunization: Unable to Assess Hx Influenza Vaccine This Season: Unable to Assess Medications and Allergies Active Medications: Active Medications Acetaminophen (Tylenol) 650 mg PO Q6H PRN PRN Reason: PAIN 1-10 AND/OR FEVER >101F Al Hydroxide/Mg Hydroxide (Milk Of Magnesia Liq) 30 ml PO Q12H PRN PRN Reason: Mild Constipation Albuterol (Duoneb Neb (Za)) 1 ampul NEB Q4HR NEB ZA Last Admin: 12/21/17 07:42 Dose: 1 ampul Albuterol (Duoneb Neb (Prn)) 1 ampul NEB Q2HR NEB PRN PRN Reason: WHEEZING Bisacodyl (Dulcolax Supp) 10 mg RECTAL DAILY PRN PRN Reason: SEVERE CONSITIPATION Budesonide (Pulmocort Respule Neb) 0.5 mg NEB BID NEB [facility] Last Admin: 12/21/17 07:42 Dose: 0.5 mg Chlorhexidine Gluconate (Chlorhexidine 2% Cloth) 3 pack TOPICAL DAILY@0400 PRN PRN Reason: Extra cloth needed Stop: 12/25/17 03:59 Chlorhexidine Gluconate (Chlorhexidine 2% Cloth) 3 pack TOPICAL DAILY@0400 [facility] Stop: 12/25/17 03:59 Last Admin: 12/21/17 06:07 Dose: 3 pack Chlorhexidine Gluconate (Peridex 0.12% Oral Kit) 15 ml OROPHARYNG BID@0800, 1999 [facility] Last Admin: 12/21/17 08:30 Dose: 15 ml Dextrose (D50w Vial) 50 ml IV.PUSH UNSCH PRN PRN Reason: PER HYPOGLYCEMIA PROTOCOL Enoxaparin Sodium (Lovenox Inj) 40 mg SQ Q24H [facility] Last Admin: 12/21/17 08:32 Dose: 40 mg Famotidine (Pepcid Pf Inj) 10 mg IV.PUSH Q12HR [facility] Last Admin: 12/21/17 08:32 Dose: 10 mg Furosemide (Lasix) 40 mg PO DAILY [facility] Last Admin: 12/21/17 08:31 Dose: 20 mg Glucagon (Glucagon Inj) 1 mg OTHER PRN PRN PRN Reason: for Hypoglycemia Protocol Piperacillin/Tazobactam/Dextrose (Zosyn 4.5 Gm Premix) 4.5 gm in 100 mls @ 200 mls/hr IV.SIG Q6H [facility] Last Infusion: 12/21/17 10:37 Dose: Infused Azithromycin 500 mg/ Sodium (Chloride) 250 mls @ 250 mls/hr IV.SIG Q24H [facility] Last Admin: 12/21/17 01:13 Dose: 250 mls/hr Midazolam HCl (Versed Inj) 50 mg in 50 mls @ 2 mls/hr IV.CONT TITRATE PRN; Protocol PRN Reason: Per Protocol Last Admin: 12/20/17 20:49 Dose: 2 mg/hr, 2 mls/hr Fentanyl (Fentanyl 10 Mcg/Ml Premix Drip) 2,500 mcg in 250 mls @ 5 mls/hr IV.SIG TITRATE PRN; Protocol PRN Reason: Per Protocol Last Admin: 12/20/17 04:26 Dose: 50 mcg/hr, 5 mls/hr Sodium Chloride (Ns Inj) 1,000 mls @ 100 mls/hr IV.CONT .Q10H [facility] Last Admin: 12/21/17 06:06 Dose: Not Given Vancomycin HCl 1,000 mg/ (Sodium Chloride) 250 mls @ 250 mls/hr IV.SIG Q24H [facility] Last Infusion: 12/21/17 02:38 Dose: Infused Insulin Aspart (Novolog Insulin Correctional Sugar Inj) 0 unit SQ Q6HR [facility]; Protocol Last Admin: 12/21/17 08:14 Dose: Not Given Lactulose (Lactulose Liq) 30 ml PO DAILY PRN PRN Reason: SEVERE CONSITIPATION Methylprednisolone Sodium Succinate (Solumedrol Inj) 40 mg IV.PUSH Q8HR [facility] Last Admin: 12/21/17 06:06 Dose: 40 mg Miscellaneous Information ([facility] Ordered Lab Info) 0 each OTHER ONCE ONE Stop: 12/22/17 22:46 Miscellaneous Medication () 1 each OROPHARYNG 0000,0400,1200,1600 [facility] Last Admin: 12/21/17 06:07 Dose: 1 each Morphine Sulfate (Morphine Inj) 2 mg IV.PUSH Q2H PRN PRN Reason: PAIN SCALE 6 TO 10 Ondansetron HCl (Zofran Inj) 4 mg IV.PUSH Q6H PRN PRN Reason: NAUSEA OR VOMITING Pharmacy Profile Note (Vancomycin Consult Pharmacy) 1 each OTHER UNSCH PRN PRN Reason: Pharmacy to dose Senna/Docusate Sodium (Flor-Colace) 1 tab PO BID [facility] Last Admin: 12/21/17 08:32 Dose: 1 tab Sennosides (Senokot) 17.2 mg PO Q12H PRN PRN Reason: Moderate Constipation Sodium Chloride (Ns Flush) 2 ml IV.FLUSH BID [facility] Last Admin: 12/21/17 08:32 Dose: 2 ml Sodium Chloride (Ns Flush) 2 ml IV.FLUSH PRN PRN PRN Reason: FLUSH AFTER USING IV ACCESS Allergies Allergy/AdvReac Type Severity Reaction Status Date / Time No Known Allergies Allergy Verified 12/19/17 21:39 Home Medications Medication Instructions Recorded Confirmed Type albuterol sulfate 2.5 mg INHALATION Q2H PRN 12/19/17 12/19/17 History budesonide 0.5 mg INHALATION BID 12/19/17 12/19/17 History furosemide 40 mg PO DAILY 12/19/17 12/19/17 History ipratropium-albuterol 3 ml INHALATION Q4H 12/19/17 12/19/17 History multivitamin with minerals 1 tab PO DAILY 12/19/17 12/19/17 History potassium bicarb-citric acid 1 tab PO DAILY 12/19/17 12/19/17 History Advance Directives Living Will: No Healthcare Surrogate: No Ethical and Legal Issues: Patient unable to participate due to clinical condition. There is some question of underlying cognitive deficits. His would be appropriate legal decision maker. She is making decisions supported by the rest of the family, daughters, sister are very involved in his care in decision-making Physical Exam Vital Signs: Vital Signs - 24 hr 12/20/17 11:00 12/20/17 11:45 12/20/17 12:00 Temperature 98.1 F Pulse Rate 91 H 92 H 92 H Respiratory Rate 18 18 18 Blood Pressure 105/53 L 99/50 L 105/51 L Pulse Oximetry 99 93 L 94 L 12/20/17 12:15 12/20/17 12:30 12/20/17 12:45 Temperature Pulse Rate 92 H 92 H 90 Respiratory Rate 24 20 18 Blood Pressure 106/54 L 100/56 L 79/47 L Pulse Oximetry 93 L 94 L 94 L 12/20/17 12:47 12/20/17 12:54 12/20/17 13:00 Temperature Pulse Rate 89 88 88 Respiratory Rate 18 18 18 Blood Pressure 83/47 L 81/47 L 84/48 L Pulse Oximetry 94 L 94 L 94 L 12/20/17 13:30 12/20/17 13:59 12/20/17 14:00 Temperature Pulse Rate 86 85 Respiratory Rate 18 18 18 Blood Pressure 91/51 L 92/54 L Pulse Oximetry 95 95 96 12/20/17 14:30 12/20/17 15:00 12/20/17 15:01 Temperature Pulse Rate 88 84 84 Respiratory Rate 18 36 H 18 Blood Pressure 96/50 L 88/52 L Pulse Oximetry 94 L 95 12/20/17 15:30 12/20/17 16:00 12/20/17 16:01 Temperature 98.0 F Pulse Rate 81 84 Respiratory Rate 18 24 18 Blood Pressure 91/54 L 105/51 L Pulse Oximetry 96 95 95 12/20/17 16:30 12/20/17 17:00 12/20/17 17:30 Temperature Pulse Rate 84 88 89 Respiratory Rate 36 H 25 H 30 H Blood Pressure 95/53 L 94/50 L 95/48 L Pulse Oximetry 93 L 93 L 94 L 12/20/17 18:00 12/20/17 18:30 12/20/17 19:00 Temperature Pulse Rate 82 84 88 Respiratory Rate 29 H 35 H 18 Blood Pressure 95/50 L 92/55 L 90/49 L Pulse Oximetry 94 L 94 L 93 L 12/20/17 19:25 12/20/17 19:30 12/20/17 20:00 Temperature 98 F Pulse Rate 95 H 85 Respiratory Rate 19 18 18 Blood Pressure 101/55 L 95/52 L Pulse Oximetry 96 94 L 12/20/17 21:00 12/20/17 21:30 12/20/17 22:00 Temperature Pulse Rate 86 88 92 H Respiratory Rate 18 37 H 34 H Blood Pressure 92/47 L 97/51 L 105/50 L Pulse Oximetry 93 L 93 L 92 L 12/20/17 22:02 12/20/17 23:00 12/20/17 23:21 Temperature Pulse Rate 89 95 H Respiratory Rate 18 24 18 Blood Pressure 108/53 L Pulse Oximetry 93 L 92 L 12/21/17 00:00 12/21/17 00:30 12/21/17 01:00 Temperature Pulse Rate 91 H 92 H 92 H Respiratory Rate 18 18 19 Blood Pressure 103/52 L 101/52 L 101/54 L Pulse Oximetry 91 L 92 L 91 L 12/21/17 01:15 12/21/17 01:30 12/21/17 02:00 Temperature Pulse Rate 90 87 Respiratory Rate 18 18 19 Blood Pressure 101/57 L 102/51 L Pulse Oximetry 93 L 93 L 93 L 12/21/17 03:00 12/21/17 03:30 12/21/17 03:31 Temperature Pulse Rate 96 H 98 H 98 H Respiratory Rate 18 18 18 Blood Pressure 98/52 L Pulse Oximetry 92 L 91 L 12/21/17 04:00 12/21/17 04:25 12/21/17 05:00 Temperature 99 F Pulse Rate 94 H 98 H Respiratory Rate 18 18 18 Blood Pressure 102/52 L 111/54 L Pulse Oximetry 93 L 94 L 92 L 12/21/17 06:00 12/21/17 06:30 12/21/17 07:00 Temperature Pulse Rate 95 H 93 H Respiratory Rate 21 18 Blood Pressure 109/52 L 111/54 L 116/54 L Pulse Oximetry 92 L 93 L 12/21/17 07:44 12/21/17 08:00 12/21/17 09:00 Temperature 97.8 F Pulse Rate 94 H 95 H Respiratory Rate 18 18 18 Blood Pressure 114/56 L 109/54 L Pulse Oximetry 94 L 94 L 96 12/21/17 10:00 Temperature Pulse Rate 93 H Respiratory Rate 18 Blood Pressure 119/56 L Pulse Oximetry 94 L I&O: Intake & Output 12/19/17 12/20/17 12/21/17 12/22/17 06:59 06:59 06:59 06:59 Intake Total 100 / 100 5068 / 5068 100 / 100 Output Total 175 / 175 1650 / 1650 Balance -75 / -75 3418 / 3418 100 / 100 Weight 62 kg 71.5 kg Physical Exam: CONSTITUTIONAL/GENERAL: This is a thin elderly male, sedated on mechanical vent TUBES/LINES/DRAINS: Notable peripheral IVs to bilateral upper extremities. ET tube, OG tube. SKIN: No jaundice, rashes, or lesions. Extensive ecchymosis along left hip, upper leg. Some areas of fading. No wounds seen anteriorly. Skin warm and dry.. HEAD: Atraumatic. Normocephalic. EYES: Pupils 2mm/slight reaction to light. No scleral icterus. No injection or drainage. Fundi not examined. ENT: Nose without bleeding or purulent drainage. Throat without visible erythema, exudates, limited exam 2/2 ett, ogt NECK: Trachea midline. Supple, nontender. No palpable thyroid enlargement or nodularity. CARDIOVASCULAR: Regular rate and rhythm without murmur. No JVD. Peripheral pulses symmetric. RESPIRATORY/CHEST: Symmetric, unlabored respirations on mech vent. Rt w faint rhonchi, left with no air movement. GASTROINTESTINAL: Abdomen soft, no apparent tenderness. No palpable masses. Bowel sounds present.TF infusing to OGT GENITOURINARY: Without palpable bladder distension. MUSCULOSKELETAL: Extremities without clubbing, cyanosis. Slight edema to hands. No joint tenderness or effusion noted. No mottling or clubbing. LYMPHATICS: No palpable cervical or supraclavicular adenopathy. NEUROLOGICAL: sedated on mech vent, no apparent distress. Does not open eyes. Occasional restless, moves extremities spont. PSYCHIATRIC: occasional restlessness, calmed by family, otherwise no apparent distress. Diagnostic Tests Laboratory: Laboratory Results - last 72 hr 12/19/17 12/19/17 12/19/17 21:30 21:30 21:30 WBC 26.3 H RBC 4.38 L Hgb 13.2 Hct 39.7 MCV 90.6 MCH 30.2 MCHC 33.3 RDW 14.4 Plt Count 301 D MPV 8.0 Prelim Diff (Auto) Slide review pending Neut % (Auto) 81.8 H Lymph % (Auto) 9.1 [place] % (Auto) 8.9 H Eos % (Auto) 0.1 Baso % (Auto) 0.1 Neut # (Auto) 21.5 H Lymph # (Auto) 2.4 [place] # (Auto) 2.3 H Eos # (Auto) 0.0 Baso # (Auto) 0.0 WBC Differential . Diff Scan Auto diff confirmed Differential Comment . PT 11.6 INR 1.1 APTT 24.7 Puncture Site Patient Temperature O2 Saturation ABG pH ABG pCO2 ABG pO2 ABG HCO3 ABG O2 Content ABG Base Excess ABG Methemoglobin Krishna Test Hemoglobin Carboxyhemoglobin O2 Delivery Device Vent Setting Inspired O2 Critical Value Sodium 141 Potassium 4.9 Chloride 99 Carbon Dioxide 36.6 H Anion Gap 5 BUN 29 H Creatinine 0.96 Estimated GFR 75 L POC Glucose Random Glucose 194 H Lactic Acid Calcium 8.6 Phosphorus 3.7 Magnesium 2.0 Total Bilirubin 0.9 AST 33 ALT 35 Alkaline Phosphatase 213 H Total Creatine Kinase 51 Troponin I 0.03 B-Natriuretic Peptide Total Protein 7.6 Albumin 3.1 L Lipase 128 Urine Color Urine Clarity Urine pH Ur Specific [place] Urine Protein Urine Glucose (UA) Urine Ketones Urine Occult Blood Urine Nitrate Urine Bilirubin Urine Urobilinogen Ur Leukocyte Esterase Urine RBC Urine WBC Urine Bacteria Hyaline Casts Urine Mucus Micro UA Comment Ur Microscopic Review Urine Culture Comments Nasal Screen MRSA (PCR) 12/19/17 12/19/17 12/20/17 21:30 21:30 00:20 WBC RBC Hgb Hct MCV MCH MCHC RDW Plt Count MPV Prelim Diff (Auto) Neut % (Auto) Lymph % (Auto) [place] % (Auto) Eos % (Auto) Baso % (Auto) Neut # (Auto) Lymph # (Auto) [place] # (Auto) Eos # (Auto) Baso # (Auto) WBC Differential Diff Scan Differential Comment PT INR APTT Puncture Site Patient Temperature O2 Saturation ABG pH ABG pCO2 ABG pO2 ABG HCO3 ABG O2 Content ABG Base Excess ABG Methemoglobin Krishna Test Hemoglobin Carboxyhemoglobin O2 Delivery Device Vent Setting Inspired O2 Critical Value Sodium Potassium Chloride Carbon Dioxide Anion Gap BUN Creatinine Estimated GFR POC Glucose Random Glucose Lactic Acid 2.1 H 1.1 Calcium Phosphorus Magnesium Total Bilirubin AST ALT Alkaline Phosphatase Total Creatine Kinase Troponin I B-Natriuretic Peptide 330 H Total Protein Albumin Lipase Urine Color Urine Clarity Urine pH Ur Specific [place] Urine Protein Urine Glucose (UA) Urine Ketones Urine Occult Blood Urine Nitrate Urine Bilirubin Urine Urobilinogen Ur Leukocyte Esterase Urine RBC Urine WBC Urine Bacteria Hyaline Casts Urine Mucus Micro UA Comment Ur Microscopic Review Urine Culture Comments Nasal Screen MRSA (PCR) 12/20/17 12/20/17 12/20/17 00:28 01:05 01:28 WBC RBC Hgb Hct MCV MCH MCHC RDW Plt Count MPV Prelim Diff (Auto) Neut % (Auto) Lymph % (Auto) [place] % (Auto) Eos % (Auto) Baso % (Auto) Neut # (Auto) Lymph # (Auto) [place] # (Auto) Eos # (Auto) Baso # (Auto) WBC Differential Diff Scan Differential Comment PT INR APTT Puncture Site Left radial Patient Temperature 98.6 O2 Saturation 90 ABG pH 7.26 L* ABG pCO2 81 H* ABG pO2 76 ABG HCO3 35 H ABG O2 Content 15.3 ABG Base Excess 7.9 H ABG Methemoglobin 0.5 Krishna Test Present Hemoglobin 12.1 Carboxyhemoglobin 1.5 O2 Delivery Device Bipap Vent Setting 12/5 Inspired O2 100 Critical Value Yes Sodium Potassium Chloride Carbon Dioxide Anion Gap BUN Creatinine Estimated GFR POC Glucose Random Glucose Lactic Acid Calcium Phosphorus Magnesium Total Bilirubin AST ALT Alkaline Phosphatase Total Creatine Kinase Troponin I 0.34 H B-Natriuretic Peptide Total Protein Albumin Lipase Urine Color Urine Clarity Urine pH Ur Specific [place] Urine Protein Urine Glucose (UA) Urine Ketones Urine Occult Blood Urine Nitrate Urine Bilirubin Urine Urobilinogen Ur Leukocyte Esterase Urine RBC Urine WBC Urine Bacteria Hyaline Casts Urine Mucus Micro UA Comment Ur Microscopic Review Urine Culture Comments Nasal Screen MRSA (PCR) Not detected 12/20/17 12/20/17 12/20/17 02:25 03:45 03:45 WBC 16.6 H RBC 3.89 L Hgb 11.6 L Hct 35.8 L MCV 92.1 MCH 29.9 MCHC 32.4 RDW 14.2 Plt Count 154 D MPV 8.4 Prelim Diff (Auto) Neut % (Auto) 88.2 H Lymph % (Auto) 4.4 L [place] % (Auto) 7.4 Eos % (Auto) 0.0 Baso % (Auto) 0.0 Neut # (Auto) 14.6 H Lymph # (Auto) 0.7 L [place] # (Auto) 1.2 H Eos # (Auto) 0.0 Baso # (Auto) 0.0 WBC Differential . Diff Scan Differential Comment Auto diff final PT 12.0 H INR 1.2 APTT 26.1 Puncture Site Right radial Patient Temperature 98.6 O2 Saturation 94 ABG pH 7.26 L* ABG pCO2 75 H* ABG pO2 104 ABG HCO3 32 H ABG O2 Content 15.3 ABG Base Excess 5.4 H ABG Methemoglobin 1.3 Krishna Test Present Hemoglobin 11.5 L Carboxyhemoglobin 1.4 O2 Delivery Device Bipap16/+5/100% Vent Setting Inspired O2 100 Critical Value Yes Sodium Potassium Chloride Carbon Dioxide Anion Gap BUN Creatinine Estimated GFR POC Glucose Random Glucose Lactic Acid Calcium Phosphorus Magnesium Total Bilirubin AST ALT Alkaline Phosphatase Total Creatine Kinase Troponin I B-Natriuretic Peptide Total Protein Albumin Lipase Urine Color Urine Clarity Urine pH Ur Specific [place] Urine Protein Urine Glucose (UA) Urine Ketones Urine Occult Blood Urine Nitrate Urine Bilirubin Urine Urobilinogen Ur Leukocyte Esterase Urine RBC Urine WBC Urine Bacteria Hyaline Casts Urine Mucus Micro UA Comment Ur Microscopic Review Urine Culture Comments Nasal Screen MRSA (PCR) 12/20/17 12/20/17 12/20/17 03:45 09:39 11:50 WBC RBC Hgb Hct MCV MCH MCHC RDW Plt Count MPV Prelim Diff (Auto) Neut % (Auto) Lymph % (Auto) [place] % (Auto) Eos % (Auto) Baso % (Auto) Neut # (Auto) Lymph # (Auto) [place] # (Auto) Eos # (Auto) Baso # (Auto) WBC Differential Diff Scan Differential Comment PT INR APTT Puncture Site Right radial Patient Temperature 98.6 O2 Saturation 97 ABG pH 7.34 L ABG pCO2 57 H* ABG pO2 186 H ABG HCO3 30 H ABG O2 Content 14.1 ABG Base Excess 4.7 H ABG Methemoglobin 1.2 Krishna Test Present Hemoglobin 10.1 L Carboxyhemoglobin 1.1 O2 Delivery Device Ventilator Vent Setting Inspired O2 50 Critical Value Yes Sodium 143 Potassium 4.7 Chloride 102 Carbon Dioxide 34.5 H Anion Gap 7 BUN 33 H Creatinine 0.95 Estimated GFR 76 L POC Glucose Random Glucose 180 H Lactic Acid Calcium 8.2 L Phosphorus 5.0 H D Magnesium 2.0 Total Bilirubin 0.9 AST 27 ALT 29 Alkaline Phosphatase 160 H Total Creatine Kinase Troponin I 0.42 H B-Natriuretic Peptide Total Protein 6.3 L D Albumin 2.6 L Lipase Urine Color Yellow Urine Clarity Hazy H Urine pH 6.0 Ur Specific [place] 1.020 Urine Protein 30 H Urine Glucose (UA) 50 Urine Ketones Negative Urine Occult Blood Negative Urine Nitrate Negative Urine Bilirubin Negative Urine Urobilinogen Less than 2 Ur Leukocyte Esterase Negative Urine RBC 1 Urine WBC 3 Urine Bacteria Rare H Hyaline Casts 1 Urine Mucus Few H Micro UA Comment Cath-culture ind Ur Microscopic Review Not Reportable Urine Culture Comments Cath-cult indicated Nasal Screen MRSA (PCR) 12/20/17 12/20/17 12/20/17 12:36 17:44 20:12 WBC RBC Hgb Hct MCV MCH MCHC RDW Plt Count MPV Prelim Diff (Auto) Neut % (Auto) Lymph % (Auto) [place] % (Auto) Eos % (Auto) Baso % (Auto) Neut # (Auto) Lymph # (Auto) [place] # (Auto) Eos # (Auto) Baso # (Auto) WBC Differential Diff Scan Differential Comment PT INR APTT Puncture Site Patient Temperature O2 Saturation ABG pH ABG pCO2 ABG pO2 ABG HCO3 ABG O2 Content ABG Base Excess ABG Methemoglobin Krishna Test Hemoglobin Carboxyhemoglobin O2 Delivery Device Vent Setting Inspired O2 Critical Value Sodium Potassium Chloride Carbon Dioxide Anion Gap BUN Creatinine Estimated GFR POC Glucose 199 H 200 H 218 H Random Glucose Lactic Acid Calcium Phosphorus Magnesium Total Bilirubin AST ALT Alkaline Phosphatase Total Creatine Kinase Troponin I B-Natriuretic Peptide Total Protein Albumin Lipase Urine Color Urine Clarity Urine pH Ur Specific [place] Urine Protein Urine Glucose (UA) Urine Ketones Urine Occult Blood Urine Nitrate Urine Bilirubin Urine Urobilinogen Ur Leukocyte Esterase Urine RBC Urine WBC Urine Bacteria Hyaline Casts Urine Mucus Micro UA Comment Ur Microscopic Review Urine Culture Comments Nasal Screen MRSA (PCR) 12/21/17 12/21/17 12/21/17 05:08 06:08 06:10 WBC 9.2 RBC 3.09 L Hgb 9.4 L D Hct 28.6 L MCV 92.5 MCH 30.4 MCHC 32.8 RDW 14.4 Plt Count 112 L MPV 8.9 Prelim Diff (Auto) Neut % (Auto) Lymph % (Auto) [place] % (Auto) Eos % (Auto) Baso % (Auto) Neut # (Auto) Lymph # (Auto) [place] # (Auto) Eos # (Auto) Baso # (Auto) WBC Differential Diff Scan Differential Comment PT INR APTT Puncture Site Right radial Patient Temperature 98.6 O2 Saturation 93 ABG pH 7.30 L ABG pCO2 59 H* ABG pO2 83 ABG HCO3 28 H ABG O2 Content 12.5 ABG Base Excess 2.4 H ABG Methemoglobin 1.3 Krishna Test Present Hemoglobin 9.5 L Carboxyhemoglobin 1.3 O2 Delivery Device Ventilator Vent Setting Prvc18/450/1.0/+5 Inspired O2 50 Critical Value Yes Sodium Potassium Chloride Carbon Dioxide Anion Gap BUN Creatinine Estimated GFR POC Glucose 323 H Random Glucose Lactic Acid Calcium Phosphorus Magnesium Total Bilirubin AST ALT Alkaline Phosphatase Total Creatine Kinase Troponin I B-Natriuretic Peptide Total Protein Albumin Lipase Urine Color Urine Clarity Urine pH Ur Specific [place] Urine Protein Urine Glucose (UA) Urine Ketones Urine Occult Blood Urine Nitrate Urine Bilirubin Urine Urobilinogen Ur Leukocyte Esterase Urine RBC Urine WBC Urine Bacteria Hyaline Casts Urine Mucus Micro UA Comment Ur Microscopic Review Urine Culture Comments Nasal Screen MRSA (PCR) 12/21/17 12/21/17 06:10 06:10 WBC RBC Hgb Hct MCV MCH MCHC RDW Plt Count MPV Prelim Diff (Auto) Neut % (Auto) Lymph % (Auto) [place] % (Auto) Eos % (Auto) Baso % (Auto) Neut # (Auto) Lymph # (Auto) [place] # (Auto) Eos # (Auto) Baso # (Auto) WBC Differential Diff Scan Differential Comment PT 11.9 H INR 1.2 APTT Puncture Site Patient Temperature O2 Saturation ABG pH ABG pCO2 ABG pO2 ABG HCO3 ABG O2 Content ABG Base Excess ABG Methemoglobin Krishna Test Hemoglobin Carboxyhemoglobin O2 Delivery Device Vent Setting Inspired O2 Critical Value Sodium 149 H Potassium 4.9 Chloride 110 H D Carbon Dioxide 29.9 Anion Gap 9 BUN 48 H Creatinine 1.09 Estimated GFR 65 L POC Glucose Random Glucose 304 H D Lactic Acid Calcium 7.5 L Phosphorus 3.2 D Magnesium 2.4 Total Bilirubin 0.5 AST 35 ALT 29 Alkaline Phosphatase 124 H Total Creatine Kinase Troponin I B-Natriuretic Peptide Total Protein 5.6 L D Albumin 2.4 L Lipase Urine Color Urine Clarity Urine pH Ur Specific [place] Urine Protein Urine Glucose (UA) Urine Ketones Urine Occult Blood Urine Nitrate Urine Bilirubin Urine Urobilinogen Ur Leukocyte Esterase Urine RBC Urine WBC Urine Bacteria Hyaline Casts Urine Mucus Micro UA Comment Ur Microscopic Review Urine Culture Comments Nasal Screen MRSA (PCR) Result Diagrams: 12/21/17 06:10 12/21/17 06:10 Microbiology: Microbiology 12/20/17 14:10 Gram Stain - Final Sputum - Endotracheal 12/20/17 11:50 Legionella Antigen - Final Urine - Catheterized Urine Presumptive negative for Legionella pneumophila serogroup 1 antigen in urine, suggesting no recent or recurrent infection. Infection due to Legionella cannot be ruled out since other serogroups and species may cause disease, antigen may not be present in urine in early infection, and the level of antigen present in the urine may be below the detection limit of the test. 12/20/17 11:50 Streptococcus pneumoniae Antigen (M - Final Urine - Catheterized Urine Presumptive negative for streptococcus pneumoniae antigen, suggesting no current or recent infection. Infection due to Streptococcus pneumoniae cannot be ruled out since the antigen present in the sample may be below the detection limit of the test. 12/19/17 21:20 Aerobic Blood Culture - Preliminary Blood - Peripheral No growth in 1 day Anaerobic Blood Culture - Preliminary No growth in 1 day 12/19/17 21:30 Aerobic Blood Culture - Preliminary Blood - Peripheral No growth in 1 day Anaerobic Blood Culture - Preliminary No growth in 1 day Patient/Family Conference Family Conference Time: 25 Family Conference Location: Bedside Issues Discussed: Spoke with , daughter, sister via speaker phone at bedside discussion included: * Palliative care role, purpose, approach * Additional medical, psychosocial, and spiritual history-family indicates sister is a spiritual provider, attending to patient's needs * Patients general health, functional status, and cognitive changes in the months leading up to the current hospitalization * family understanding of the current medical problems * family understanding of prognosis * Patients goals of care as best understood from advance directives and/or conversations and/or values-family expresses would want any available treatment at this time to help him improve * Current medical treatment options and benefits/burdens of those options- gently explore the patient is high risk for potential complications /setbacks going forward due to current acute issues as well as underlying medical conditions and recent hospitalization * Review of CODE STATUS-family affirms full code * Questions answered to the best of my ability * Palliative care contact information provided Family indicates they have had thorough medical update into this point. Review with him hospital course thus far and most recent diagnostics. Gently explore the patient does remain at risk for ongoing complications and potential deterioration secondary to his acute issues as well as significant underlying conditions, as well as chest having had recent hospitalization. They expressed optimism as patient's labs have improved somewhat BuSpar. They expressed aggressive goals patient would want to continue ongoing aggressive treatments to improve his condition, including full code. Assessment and Plan - Disease Oriented Problem List (1) COPD (chronic obstructive pulmonary disease) (2) CHF (congestive heart failure) (3) Respiratory distress (4) Sepsis (5) HCAP (healthcare-associated pneumonia) (6) NAHED (acute kidney injury) (7) Pulmonary hypertension (8) S/P lobectomy of lung - Symptom Scale (1) Dyspnea 0-10 Scale: Unable to quantify (2) Pain 0-10 Scale: Unable to quantify Pertinent Non-Medical Issues: Psychosocial: Retired. Lived in [place] most of his life-- originally from [place], then moved to [place], then to [place]. Worked as a [employer]. Supported by , 4 daughters, other extended family. Spiritual:worship, sister providing spiritual care Legal:Patient unable to participate due to clinical condition. There is some question of underlying cognitive deficits. His would be appropriate legal decision maker. She is making decisions supported by the rest of the family, daughters, sister are very involved in his care in decision-making Ethical issues impacting care:no ethical issues identified Important Contacts: Sunshine Davenport [phone] Prognosis: This 82-year-old patient is currently hospitalized due to severe sepsis, with respiratory failure. He has multiple chronic comorbidities. 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 He also has underlying COPD, pulmonary fibrosis, prior lobectomy. Overall poor prognosis for survival from current acute issues. Code Status: Full Code Plan: * Legal decision maker: Patient unable to participate due to clinical condition. There is some question of underlying cognitive deficits. His would be appropriate legal decision maker. She is making decisions supported by the rest of the family, daughters, sister are very involved in his care in decision-making * Goals: aggressive goals; patient would want to continue ongoing aggressive treatments to improve his condition, including full code. * CODE STATUS: Full code * SYMPTOMS: --Dyspnea-admitted for shortness of breath. Desaturation reported at home. Urgently intubated upon arrival to ICU. CXR indicative right lower lung probable pneumonia. On broad-spectrum antibiotics. Cultures pending. Currently breathing comfortably on mechanical vent. Family wishes to minimize sedation as much as possible though they also want him to be comfortable if possible. --Pain-family endorses a day to day at home patient did not endorse any pain. He is status post hip repair last month. Has been essentially bedbound since that time, potential sources would include recent hip surgery, as well as prolonged bedbound status and recent invasive procedures. Currently breathing comfortable on Versed 2 mg, fentanyl 50 mics an hour, with occasional episodes of restlessness. Appears to be soothed by family tension voice. will continue to monitor. Patient family verbalizes wishing to minimize sedation as much as possible. * Palliative care will continue to follow during hospital course as condition evolves, to assist patient/decision-maker with understanding of medical conditions, weighing benefits/burdens of treatment options, for clarification of goals of treatment. Additionally will assist with any symptoms of palliative concern Appreciation Thank you for the opportunity to participate in the care of Morgan Davenport. Attestation Attestation: To help prompt me to consider important information that might be impacting today's encounter and assessment, information from prior notes written by myself or my colleagues may have been "brought forward" into today's note. My signature on this note, however, is an attestation that I personally performed the exam, history, and/or decision-making noted today, and, unless otherwise indicated, the interactions with patient, family, and staff as well as the review of records all occurred today. I also attest that the listed assessment and stated plan reflect my best clinical judgment today based on the combination of historical information, prior notes, and today's exam/ interactions. When time spent is documented, it refers only to time spent today by the signer, or if indicated, combined time spent today by collaborating physician/nurse practitioner.
--- NOTE | 2017-12-21 11:59 | P.PNCC ---
Subjective Subjective Remarks/Hospital Course: Hospital Course: 82-year-old male with past medical history of COPD and CHF presents for an evaluation of shortness of breath and hypoxemia worsening over past few days. The nebulizer treatments helped initially however today there were not helpful. EMS reports on scene the O2 sat was in the 80s. He received high flow oxygen and nebulized albuterol in route here. His blood pressure initially in the emergency department was 200/100 however trended down to about 160/90. BiPAP was started in the emergency department with improvement in his O2 sat that has trended towards the high 90s with 100% FiO2 on BiPAP. Shortly after transfer to ICU the patient continues to to be more hypoxemic and restless requiring endotracheal intubation and mechanical ventilation. Subjective: 12/20: intubated and sedated. still hypercarbic with [id number] respiratory acidosis. family unhappy that patient was intubated: they insisted last night on being a Full Code, but apparently the daughter required that she be notified of exactly what SpO2 the patient was at, and it had to reach a certain low level before she would be ok with intubation. Per overnight records , patient presented with severe respiratory distress, and family reports that EMS stated patient "wouldn't make it all the way to [facility]" due to his pulmonary instability. This morning, hypoxia is somewhat improved. remains on broad spectrum antibiotics. I explained to family that this is likely a new pneumonia causing respiratory failure. I also explained that after recent hip fracture and recent prolonged hospitalization, his baseline end-stage lung disease and NYHA Class IV symptoms are likely to worsen, and this may be worsening of his overall end-stage disease processes. Family continues to state that our facility caused his lung failure during the prior hospitalization. They are also concerned about his poor peripheral perfusion and oliguria, which concerns me also: I explained that his heart failure could not tolerate significant amount of iv fluids, and we have already given him 1500mL over the last 12 hours, but they have insisted on additional iv fluids. I explained he had severe sepsis and the mortality associated with this. Daughter continues to remind me that her father "is coming home with her and getting better" as she has stated multiple times in the past. 12/21: no improvements. remains intubated. clinically becoming volume overloaded - will be forced to start diuresis. Objective Vital Signs / I&O: Vital Signs 12/20/17 12:00 12/20/17 12:15 12/20/17 12:30 Temperature 36.7 C Pulse Rate 92 H 92 H 92 H Respiratory Rate 18 24 20 Blood Pressure 105/51 L 106/54 L 100/56 L Pulse Oximetry 94 L 93 L 94 L 12/20/17 12:45 12/20/17 12:47 12/20/17 12:54 Temperature Pulse Rate 90 89 88 Respiratory Rate 18 18 18 Blood Pressure 79/47 L 83/47 L 81/47 L Pulse Oximetry 94 L 94 L 94 L 12/20/17 13:00 12/20/17 13:30 12/20/17 13:59 Temperature Pulse Rate 88 86 Respiratory Rate 18 18 18 Blood Pressure 84/48 L 91/51 L Pulse Oximetry 94 L 95 95 12/20/17 14:00 12/20/17 14:30 12/20/17 15:00 Temperature Pulse Rate 85 88 84 Respiratory Rate 18 18 36 H Blood Pressure 92/54 L 96/50 L 88/52 L Pulse Oximetry 96 94 L 95 12/20/17 15:01 12/20/17 15:30 12/20/17 16:00 Temperature 36.7 C Pulse Rate 84 81 84 Respiratory Rate 18 18 24 Blood Pressure 91/54 L 105/51 L Pulse Oximetry 96 95 12/20/17 16:01 12/20/17 16:30 12/20/17 17:00 Temperature Pulse Rate 84 88 Respiratory Rate 18 36 H 25 H Blood Pressure 95/53 L 94/50 L Pulse Oximetry 95 93 L 93 L 12/20/17 17:30 12/20/17 18:00 12/20/17 18:30 Temperature Pulse Rate 89 82 84 Respiratory Rate 30 H 29 H 35 H Blood Pressure 95/48 L 95/50 L 92/55 L Pulse Oximetry 94 L 94 L 94 L 12/20/17 19:00 12/20/17 19:25 12/20/17 19:30 Temperature Pulse Rate 88 95 H Respiratory Rate 18 19 18 Blood Pressure 90/49 L 101/55 L Pulse Oximetry 93 L 96 12/20/17 20:00 12/20/17 21:00 12/20/17 21:30 Temperature 36.6 C Pulse Rate 85 86 88 Respiratory Rate 18 18 37 H Blood Pressure 95/52 L 92/47 L 97/51 L Pulse Oximetry 94 L 93 L 93 L 12/20/17 22:00 12/20/17 22:02 12/20/17 23:00 Temperature Pulse Rate 92 H 89 Respiratory Rate 34 H 18 24 Blood Pressure 105/50 L 108/53 L Pulse Oximetry 92 L 93 L 92 L 12/20/17 23:21 12/21/17 00:00 12/21/17 00:30 Temperature Pulse Rate 95 H 91 H 92 H Respiratory Rate 18 18 18 Blood Pressure 103/52 L 101/52 L Pulse Oximetry 91 L 92 L 12/21/17 01:00 12/21/17 01:15 12/21/17 01:30 Temperature Pulse Rate 92 H 90 Respiratory Rate 19 18 18 Blood Pressure 101/54 L 101/57 L Pulse Oximetry 91 L 93 L 93 L 12/21/17 02:00 12/21/17 03:00 12/21/17 03:30 Temperature Pulse Rate 87 96 H 98 H Respiratory Rate 19 18 18 Blood Pressure 102/51 L 98/52 L Pulse Oximetry 93 L 92 L 91 L 12/21/17 03:31 12/21/17 04:00 12/21/17 04:25 Temperature 37.2 C Pulse Rate 98 H 94 H Respiratory Rate 18 18 18 Blood Pressure 102/52 L Pulse Oximetry 93 L 94 L 12/21/17 05:00 12/21/17 06:00 12/21/17 06:30 Temperature Pulse Rate 98 H 95 H Respiratory Rate 18 21 Blood Pressure 111/54 L 109/52 L 111/54 L Pulse Oximetry 92 L 92 L 12/21/17 07:00 12/21/17 07:44 12/21/17 08:00 Temperature 36.6 C Pulse Rate 93 H 94 H Respiratory Rate 18 18 18 Blood Pressure 116/54 L 114/56 L Pulse Oximetry 93 L 94 L 94 L 12/21/17 09:00 12/21/17 10:00 12/21/17 11:00 Temperature Pulse Rate 95 H 93 H 100 H Respiratory Rate 18 18 18 Blood Pressure 109/54 L 119/56 L 114/56 L Pulse Oximetry 96 94 L 95 12/21/17 11:23 12/21/17 11:24 Temperature Pulse Rate 97 H Respiratory Rate 18 18 Blood Pressure Pulse Oximetry 94 L Intake & Output 12/20/17 12/21/17 12/21/17 18:59 06:59 18:59 Intake Total 2019 3048 / 3048 100 / 100 Output Total 1300 / 1300 350 / 350 Balance 720 / 720 2698 / 2698 100 / 100 Weight 71.5 kg Intake: IV 1800 / 1800 1750 / 1750 100 / 100 Versed Inj 50 mg In 50 ml @ 2 50 / 50 MG/HR 2 mls/hr IV.CONT TITRATE PRN Rx#:[id number] NS Inj 1,000 ML @ 100 mls/hr IV 1000 / 1000 .CONT .Q10H NOAH Rx#:[id number] Alburx 5% Inj 500 ML @ 250 mls/ 500 / 500 hr IV.SIG STAT STA Rx#:[id number] Azithromycin Inj 500 MG In NS 250 / 250 Inj 250 ML @ 250 mls/hr IV.SIG Q24H NOAH Rx#:[id number] Zosyn 4.5 GM Premix 4.5 gm In 300 / 300 200 / 200 100 / 100 100 ml @ 200 mls/hr IV.SIG Q6H NOAH Rx#:[id number] NS Inj 1,000 ML @ 1000 mls/hr 1000 / 1000 IV.SIG .Q1H ONE Rx#:[id number] Vancomycin Inj 1,000 MG In NS 250 / 250 Inj 250 ML @ 250 mls/hr IV.SIG Q24H NOAH Rx#:[id number] Tube Feeding 220 / 220 650 / 650 Tube Irrigant 60 / 60 Other 588 / 588 Output: Urine 650 / 650 Urine Amount (Catheter) 650 / 650 350 / 350 Straight 650 / 650 350 / 350 Other: # Bowel Movements 0 0 Result Diagrams: 12/21/17 06:10 12/21/17 06:10 Objective Remarks: GENERAL: Frail elderly male, intubated, sedated, critically ill, lying in bed HEENT: Normocephalic. Atraumatic. Pupils equal, round, reactive, conjugate. Mucous membranes are moist NECK: Trachea is midline. There is a moderate amount of JVD detention up the mid neck.. CHEST: PRVC, FiO2 60%. Equal chest rise. Absent breath sounds on the left. Fine rales in the right lower. Rhonchi in the right upper. Prolonged expiratory time. No wheezing. CARDIOVASCULAR: Normal rate, regular rhythm. Sinus. ABDOMEN: Soft, nontender, nondistended. No guarding. MUSCULOSKELETAL: Pulses 2+. No peripheral edema. extremities have improved perfusion. NEUROLOGICAL: RASS -4. Moves all extremities. Weakly withdraws 4. Sedated. Assessment and Plan - Assessment and Plan Plan: Assessment: 82-year-old male with end-stage chronic lung disease and [place] Heart Association class IV symptoms with severe right heart dysfunction and systemic pulmonary hypertension secondary to World Health Organization class III process. He now presents with worsening decompensated hypoxic and hypercarbic respiratory failure most likely combination of his underlying end- stage disease process as well as a new right lower lobe pneumonia. He has been healthcare associated in the recent past and we will cover him empirically for healthcare associated pneumonia. Given his end-stage disease processes and the clinical history suggestive of acute respiratory decompensation, I agree with the decision to proceed with intubation given that he remained a full code. I do think a DNR CODE STATUS and hospice would be appropriate for this patient with end-stage disease processes, but the family has always pressed for aggressive measures and continues to press for aggressive measures at this time. I will consult palliative care to have them assist with family decision- making, as this time it may be very difficult to separate him from mechanical ventilation, and he may require tracheostomy and long-term vent weaning. He remains very critically ill in severe sepsis and respiratory failure at this time. Plan by systems: Neurologic: Acute metabolic encephalopathy Versed and fentanyl for goal RASS -2 Frequent neurochecks Avoid long-acting sedatives Daily sedation vacation Respiratory: End-stage COPD Status post left pneumonectomy Right lower lobe healthcare associated pneumonia Congestive heart failure secondary to severe pulmonary hypertension and right ventricular dysfunction On 5 L oxygen by nasal cannula at home continuously Sats at home range between 82-87% vent bundle, hob elevated, nebs iv steroids wean fio2 for goal spo2 > 86% start daily SBTs. Pulmonary consultation Cardiovascular: Congestive heart failure secondary to pulmonary hypertension World health organization class III systemic pulmonary hypertension Severe sepsis stop mivf lasix 40mg po daily Renal: Oliguria Acute kidney injury -- Strict I/Os Straight cath every 6 hours. We will avoid Bethea if possible given risk of catheter associated UTI Daily BMP FEN/GI: Severe acute protein calorie malnutrition Hypernatremia OG tube feeds start free water replacement ICU electrolyte protocol Daily BMP, magnesium, phosphorus Heme/ID: Healthcare associated pneumonia Severe sepsis- present on admission Vancomycin with pharmacy consultation Zosyn Azithromycin this patient has been at home for some time and may have some component of community-acquired pathogens Sputum culture Blood cultures Urine UA with reflex urine culture Endocrine: Hyperglycemia of critical illness -- SSI Prophylaxis: GI Prophylaxis Pepcid DVT Prophylaxis -- SCDs Lovenox Lines: Peripheral IVs Dispo: Remain in ICU. Remains very critically ill with multiorgan dysfunction. Palliative care assistance appreciated. This patient remains critically ill with one or more organ systems which are or may become a threat to life. I have spent in excess of 31 minutes discontinuously in the care and management of this patient. This time is exclusive of procedures, and includes, but is not limited to, evaluation of the patient, review of the medical record, discussions with family, consultants, nursing staff, or respiratory therapy, and documentation in the medical record.
--- NOTE | 2017-12-21 18:30 | P.PN ---
Subjective Interval history: Pt is intubated and on Vent support. Now on FIO2 50 % and seems awake and responds. output was marginal . Chest Xray showed bilateral infiltrates Physical Exam Vital signs: Vital Signs 12/20/17 18:30 12/20/17 19:00 12/20/17 19:25 Temperature Pulse Rate 84 88 Respiratory Rate 35 H 18 19 Blood Pressure 92/55 L 90/49 L Pulse Oximetry 94 L 93 L 96 12/20/17 19:30 12/20/17 20:00 12/20/17 21:00 Temperature 98 F Pulse Rate 95 H 85 86 Respiratory Rate 18 18 18 Blood Pressure 101/55 L 95/52 L 92/47 L Pulse Oximetry 94 L 93 L 12/20/17 21:30 12/20/17 22:00 12/20/17 22:02 Temperature Pulse Rate 88 92 H Respiratory Rate 37 H 34 H 18 Blood Pressure 97/51 L 105/50 L Pulse Oximetry 93 L 92 L 93 L 12/20/17 23:00 12/20/17 23:21 12/21/17 00:00 Temperature Pulse Rate 89 95 H 91 H Respiratory Rate 24 18 18 Blood Pressure 108/53 L 103/52 L Pulse Oximetry 92 L 91 L 12/21/17 00:30 12/21/17 01:00 12/21/17 01:15 Temperature Pulse Rate 92 H 92 H Respiratory Rate 18 19 18 Blood Pressure 101/52 L 101/54 L Pulse Oximetry 92 L 91 L 93 L 12/21/17 01:30 12/21/17 02:00 12/21/17 03:00 Temperature Pulse Rate 90 87 96 H Respiratory Rate 18 19 18 Blood Pressure 101/57 L 102/51 L 98/52 L Pulse Oximetry 93 L 93 L 92 L 12/21/17 03:30 12/21/17 03:31 12/21/17 04:00 Temperature 99 F Pulse Rate 98 H 98 H 94 H Respiratory Rate 18 18 18 Blood Pressure 102/52 L Pulse Oximetry 91 L 93 L 12/21/17 04:25 12/21/17 05:00 12/21/17 06:00 Temperature Pulse Rate 98 H 95 H Respiratory Rate 18 18 21 Blood Pressure 111/54 L 109/52 L Pulse Oximetry 94 L 92 L 92 L 12/21/17 06:30 12/21/17 07:00 12/21/17 07:44 Temperature Pulse Rate 93 H Respiratory Rate 18 18 Blood Pressure 111/54 L 116/54 L Pulse Oximetry 93 L 94 L 12/21/17 08:00 12/21/17 09:00 12/21/17 10:00 Temperature 97.8 F Pulse Rate 94 H 95 H 93 H Respiratory Rate 18 18 18 Blood Pressure 114/56 L 109/54 L 119/56 L Pulse Oximetry 94 L 96 94 L 12/21/17 11:00 12/21/17 11:23 12/21/17 11:24 Temperature Pulse Rate 100 H 97 H Respiratory Rate 18 18 18 Blood Pressure 114/56 L Pulse Oximetry 95 94 L 12/21/17 12:00 12/21/17 13:00 12/21/17 14:00 Temperature 98.0 F Pulse Rate 92 H 87 84 Respiratory Rate 18 18 18 Blood Pressure 120/59 L 94/57 L 96/49 L Pulse Oximetry 96 94 L 94 L 12/21/17 15:00 12/21/17 15:23 12/21/17 15:38 Temperature Pulse Rate 85 86 Respiratory Rate 18 18 18 Blood Pressure 103/51 L Pulse Oximetry 95 94 L 12/21/17 16:00 12/21/17 17:00 Temperature 98.4 F Pulse Rate 84 85 Respiratory Rate 18 18 Blood Pressure 109/54 L 105/52 L Pulse Oximetry 94 L 95 Intake & Output 12/20/17 12/21/17 12/21/17 18:59 06:59 18:59 Intake Total 2019 / 2019 3048 / 3048 1100 / 1100 Output Total 1300 / 1300 350 / 350 700 / 700 Balance 720 / 720 2698 / 2698 400 / 400 Weight 71.5 kg Intake: IV 1800 / 1800 1750 / 1750 1100 / 1100 Versed Inj 50 mg In 50 ml @ 2 50 / 50 MG/HR 2 mls/hr IV.CONT TITRATE PRN Rx#:[id number] NS Inj 1,000 ML @ 100 mls/hr IV 1000 / 1000 1000 / 1000 .CONT .Q10H [facility] Rx#:[id number] Alburx 5% Inj 500 ML @ 250 mls/ 500 / 500 hr IV.SIG STAT STA Rx#:[id number] Azithromycin Inj 500 MG In NS 250 / 250 Inj 250 ML @ 250 mls/hr IV.SIG Q24H [facility] Rx#:[id number] Zosyn 4.5 GM Premix 4.5 gm In 300 / 300 200 / 200 100 / 100 100 ml @ 200 mls/hr IV.SIG Q6H [facility] Rx#:[id number] NS Inj 1,000 ML @ 1000 mls/hr 1000 / 1000 IV.SIG .Q1H ONE Rx#:[id number] Vancomycin Inj 1,000 MG In NS 250 / 250 Inj 250 ML @ 250 mls/hr IV.SIG Q24H [facility] Rx#:[id number] Tube Feeding 220 / 220 650 / 650 Tube Irrigant 60 / 60 Other 588 / 588 Output: Urine 650 / 650 Urine Amount (Catheter) 650 / 650 350 / 350 700 / 700 Straight 650 / 650 350 / 350 700 / 700 Other: # Bowel Movements 0 0 GENERAL: Elderly W/m awake on the vent. SKIN: Warm and dry. HEAD: Normocephalic. EYES: No scleral icterus. No injection or drainage. NECK: Supple, trachea midline. No JVD or lymphadenopathy. CARDIOVASCULAR: Irregular rate and rhythm without murmurs, gallops, or rubs. RESPIRATORY: Breath sounds equal bilaterally. Bilateral crackles .No accessory muscle use. GASTROINTESTINAL: Abdomen soft, non-tender, nondistended. MUSCULOSKELETAL: No cyanosis,but 1 + edema. BACK: Nontender without obvious deformity. No CVA tenderness. - Urinary Catheter Management Straight Cath placed during this visit: yes Reason for continuing: Not indwelling catheter Insertion date: 12/21/17 Insertion time: 13:30 Results - Labs CBC & Chem 7: 12/21/17 06:10 12/21/17 06:10 Laboratory Results - last 24 hr 12/20/17 12/21/17 12/21/17 20:12 05:08 06:08 WBC RBC Hgb Hct MCV MCH MCHC RDW Plt Count MPV PT INR Puncture Site Right radial Patient Temperature 98.6 O2 Saturation 93 ABG pH 7.30 L ABG pCO2 59 H* ABG pO2 83 ABG HCO3 28 H ABG O2 Content 12.5 ABG Base Excess 2.4 H ABG Methemoglobin 1.3 Krishna Test Present Hemoglobin 9.5 L Carboxyhemoglobin 1.3 O2 Delivery Device Ventilator Vent Setting Prvc18/450/1.0/+5 Inspired O2 50 Critical Value Yes Sodium Potassium Chloride Carbon Dioxide Anion Gap BUN Creatinine Estimated GFR POC Glucose 218 H 323 H Random Glucose Calcium Phosphorus Magnesium Total Bilirubin AST ALT Alkaline Phosphatase Total Protein Albumin 12/21/17 12/21/17 12/21/17 06:10 06:10 06:10 WBC 9.2 RBC 3.09 L Hgb 9.4 L D Hct 28.6 L MCV 92.5 MCH 30.4 MCHC 32.8 RDW 14.4 Plt Count 112 L MPV 8.9 PT 11.9 H INR 1.2 Puncture Site Patient Temperature O2 Saturation ABG pH ABG pCO2 ABG pO2 ABG HCO3 ABG O2 Content ABG Base Excess ABG Methemoglobin Krishna Test Hemoglobin Carboxyhemoglobin O2 Delivery Device Vent Setting Inspired O2 Critical Value Sodium 149 H Potassium 4.9 Chloride 110 H D Carbon Dioxide 29.9 Anion Gap 9 BUN 48 H Creatinine 1.09 Estimated GFR 65 L POC Glucose Random Glucose 304 H D Calcium 7.5 L Phosphorus 3.2 D Magnesium 2.4 Total Bilirubin 0.5 AST 35 ALT 29 Alkaline Phosphatase 124 H Total Protein 5.6 L D Albumin 2.4 L 12/21/17 12/21/17 11:51 17:31 WBC RBC Hgb Hct MCV MCH MCHC RDW Plt Count MPV PT INR Puncture Site Patient Temperature O2 Saturation ABG pH ABG pCO2 ABG pO2 ABG HCO3 ABG O2 Content ABG Base Excess ABG Methemoglobin Krishna Test Hemoglobin Carboxyhemoglobin O2 Delivery Device Vent Setting Inspired O2 Critical Value Sodium Potassium Chloride Carbon Dioxide Anion Gap BUN Creatinine Estimated GFR POC Glucose 244 H 227 H Random Glucose Calcium Phosphorus Magnesium Total Bilirubin AST ALT Alkaline Phosphatase Total Protein Albumin Microbiology 12/20/17 14:10 Sputum - Endotracheal Gram Stain - Final 12/20/17 14:10 Sputum - Endotracheal Sputum Culture - Preliminary Heavy growth normal respiratory vaishnavi at 24 hours 12/20/17 11:50 Clean Catch Urine Urine Culture - Preliminary No growth in 24 hours 12/19/17 21:20 Blood - Peripheral Aerobic Blood Culture - Preliminary No growth in 2 days 12/19/17 21:20 Blood - Peripheral Anaerobic Blood Culture - Preliminary No growth in 2 days 12/19/17 21:30 Blood - Peripheral Aerobic Blood Culture - Preliminary No growth in 2 days 12/19/17 21:30 Blood - Peripheral Anaerobic Blood Culture - Preliminary No growth in 2 days - Imaging Impressions Chest X-Ray 12/21/17 05:00 CONCLUSION: No significant interval change. Persistent left-sided pleural effusion and pulmonary parenchymal opacity along with hazy right lung opacity. Assessment and Plan - Assessment (1) Respiratory failure requiring intubation Code(s): J96.90 - Respiratory failure, unspecified, unspecified whether with hypoxia or hypercapnia Status: Acute (2) Pneumonia Code(s): J18.9 - Pneumonia, unspecified organism Status: Acute (3) CHF (congestive heart failure), NYHA class II Code(s): I50.9 - Heart failure, unspecified Status: Acute (4) CHF (congestive heart failure) Code(s): I50.9 - Heart failure, unspecified Status: Acute (5) Respiratory abnormalities Code(s): J98.9 - Respiratory disorder, unspecified Status: Acute (6) Emphysema of lung Code(s): J43.9 - Emphysema, unspecified Status: Acute (7) Borderline diabetes mellitus Code(s): R73.03 - Prediabetes Status: Acute (8) Fracture, intertrochanteric, left femur Code(s): S72.142A - Displaced intertrochanteric fracture of left femur, initial encounter for closed fracture Status: Acute (9) Nutrition, metabolism, and development symptoms Code(s): R63.8 - Other symptoms and signs concerning food and fluid intake Status: Acute - Plan RECOMMENDATIONS: 1. Continue with vent support and wean FIo2 ,maintain sats above 92%. 2. Bronchodilators in the form of DuoNeb q.4 plus q.2 p.r.n.. 3. Cont Solu-Medrol 40 mg IV q.8. 4. NG to Int suction and clamp in am. 5. Continue with antibiotics , vancomycin and Zosyn and monitor for signs of infection, which include fever and WBC. 6. Reduce sedation and begin weaning to CPAP by AM 7. Continue with diuretics daily 8. CBC,BMP ,CXR in am
[2017-12-21] MEDS: Vancomycin Inj 1,000 MG in Sodium Chlor 0.9% Inj 250 ML IV.SIG SCH (22:26)
[2017-12-21] MEDS: Midazolam 50 MG/50 ML Inj 50 MG/50 ML BAG IV.CONT PRN (23:08)
[2017-12-22] MEDS: Azithromycin Inj 500 MG in Sodium Chlor 0.9% Inj 250 ML IV.SIG SCH (01:56)
[2017-12-22] MEDS: fentaNYL 10 mcg/mL Premix Drip 2,500 MCG/250 ML BAG IV.SIG PRN (01:57)
[2017-12-22] MEDS: Insulin NovoLOG Aspart Correctional Sugar Inj SQ SCH ×5 (01:57→23:37)
[2017-12-22] MEDS: Oral Hygiene Kit OROPHARYNG SCH ×5 (01:57→23:38)
[2017-12-22] MEDS: Piperacil/Tazo 4.5 GM Premix 4.5 GM/100 ML BAG IV.SIG SCH ×4 (02:56→20:06)
[2017-12-22] MEDS: Chlorhexidine Gluconate 2% 1 Pack (2 Cloths) TOPICAL SCH (03:29)
[2017-12-22 05:59] LABS: ABG Base Excess 6.2 mmol/L (-2-2); ABG PCO2 50 mmHg (38-42); ABG PO2 70 mmHG (61-120)
[2017-12-22] MEDS: MethylPREDNISolone Sod Succinate Inj 40 MG/ML Vial IV.PUSH SCH ×3 (06:20→21:00)
[2017-12-22 07:37] LABS: Hematocrit 27.9 % (39.0-51.0); Hemoglobin 9.1 gm/dL (13.0-17.0); Mean Corpuscular HGB Conc 32.5 % (32.0-36.0); Mean Corpuscular Hemoglobin 30.3 pg (27.0-34.0); Mean Corpuscular Volume 93.2 fL (80.0-100.0); Mean Platelet Volume 9.2 fL (7.0-11.0); Platelet Count 111 th/mm3 (150-450); Red Cell Distribution Width 14.8 % (11.6-17.2); White Blood Count 7.7 th/mm3 (4.0-11.0)
[2017-12-22 07:42] LABS: INR 1.2 Ratio; Prothrombin Time 11.7 sec (9.8-11.6)
[2017-12-22 07:58] LABS: Albumin 2.4 g/dL (3.4-5.0); Anion Gap 5 meq/L (5-15); Aspartate Aminotransferase 32 U/L (15-37); Blood Urea Nitrogen 57 mg/dL (7-18); Calcium 8.1 mg/dL (8.5-10.1); Carbon Dioxide 31.6 meq/L (21.0-32.0); Chloride 113 meq/L (98-107); Glomerular Filtration Rate 64 mL/min (>89); Glucose,Random 307 mg/dL (74-106); Magnesium 2.5 mg/dL (1.5-2.5); Potassium 5.1 meq/L (3.5-5.1); Sodium 150 meq/L (136-145)
[2017-12-22 08:02] LABS: Alanine Aminotransferase 30 U/L (12-78); Alkaline Phosphatase 115 U/L (45-117); Phosphorus 2.4 mg/dL (2.5-4.9); Total Protein 5.5 g/dL (6.4-8.2)
[2017-12-22] MEDS: Enoxaparin Inj 40 MG/0.4 ML Syringe SQ SCH (08:23)
[2017-12-22] MEDS: Furosemide 40 MG Tablet PO SCH (08:23)
[2017-12-22] MEDS: Chlorhexidine 0.12% Oral Kit 15 ML UDC OROPHARYNG SCH ×2 (08:23→20:12)
[2017-12-22] MEDS: Famotidine PF Inj 20 MG/2 ML Vial IV.PUSH SCH ×2 (08:23→20:08)
[2017-12-22] MEDS: Senna/Docusate Sodium 8.6/50 MG Tablet PO SCH ×2 (08:24→20:14)
--- NOTE | 2017-12-22 12:16 | P.PN ---
Subjective Interval history: Awake and on CPAP and FIo2 30 % today. Good output. Has loose stools. Off sedation. Physical Exam Vital signs: Vital Signs 12/21/17 13:00 12/21/17 14:00 12/21/17 15:00 Temperature Pulse Rate 87 84 85 Respiratory Rate 18 18 18 Blood Pressure 94/57 L 96/49 L 103/51 L Pulse Oximetry 94 L 94 L 95 12/21/17 15:23 12/21/17 15:38 12/21/17 16:00 Temperature 98.4 F Pulse Rate 86 84 Respiratory Rate 18 18 18 Blood Pressure 109/54 L Pulse Oximetry 94 L 94 L 12/21/17 17:00 12/21/17 18:00 12/21/17 19:00 Temperature Pulse Rate 85 83 84 Respiratory Rate 18 18 18 Blood Pressure 105/52 L 104/51 L 118/54 L Pulse Oximetry 95 94 L 95 12/21/17 19:19 12/21/17 20:00 12/21/17 21:00 Temperature Pulse Rate 82 85 83 Respiratory Rate 18 18 18 Blood Pressure 116/57 L 116/57 L Pulse Oximetry 96 95 94 L 12/21/17 22:00 12/21/17 23:00 12/21/17 23:27 Temperature Pulse Rate 94 H 82 80 Respiratory Rate 18 18 18 Blood Pressure 109/56 L 119/58 L Pulse Oximetry 88 L 95 95 12/22/17 00:00 12/22/17 01:00 12/22/17 02:00 Temperature 98.7 F Pulse Rate 81 82 91 H Respiratory Rate 18 27 H 18 Blood Pressure 123/56 L 119/58 L 122/56 L Pulse Oximetry 95 95 91 L 12/22/17 02:50 12/22/17 03:00 12/22/17 04:00 Temperature 98.6 F Pulse Rate 92 H 84 Respiratory Rate 18 18 19 Blood Pressure 116/58 L 116/56 L Pulse Oximetry 95 95 12/22/17 05:00 12/22/17 06:00 12/22/17 07:16 Temperature Pulse Rate 83 86 98 H Respiratory Rate 18 16 18 Blood Pressure 110/53 L 116/54 L Pulse Oximetry 96 96 95 12/22/17 08:00 12/22/17 10:00 12/22/17 11:16 Temperature 98.5 F Pulse Rate 95 H 98 H 109 H Respiratory Rate 18 21 Blood Pressure 121/57 L Pulse Oximetry 95 12/22/17 11:18 Temperature Pulse Rate Respiratory Rate 18 Blood Pressure Pulse Oximetry 93 L Intake & Output 12/21/17 12/22/17 12/22/17 18:59 06:59 18:59 Intake Total 1554 / 1554 2092.5 / 2092.5 100 / 100 Output Total 1400 / 1400 500 / 500 Balance 154 / 154 1592.5 / 1592.5 100 / 100 Weight 71.5 kg Intake: IV 1100 / 1100 1612.5 / 1612.5 100 / 100 Versed Inj 50 mg In 50 ml @ 2 50 / 50 MG/HR 2 mls/hr IV.CONT TITRATE PRN Rx#:[id number] NS Inj 1,000 ML @ 100 mls/hr IV 1000 / 1000 .CONT .Q10H [facility] Rx#:[id number] Azithromycin Inj 500 MG In NS 500 / 500 Inj 250 ML @ 250 mls/hr IV.SIG Q24H [facility] Rx#:[id number] Zosyn 4.5 GM Premix 4.5 gm In 100 / 100 300 / 300 100 / 100 100 ml @ 200 mls/hr IV.SIG Q6H [facility] Rx#:[id number] Vancomycin Inj 1,000 MG In NS 250 / 250 Inj 250 ML @ 250 mls/hr IV.SIG Q24H [facility] Rx#:[id number] fentaNYL 10 mcg/mL Premix Drip 250 / 250 2,500 mcg In 250 ml @ 50 MCG/HR 5 mls/hr IV.SIG TITRATE PRN Rx #:[id number] Tube Feeding 454 / 454 480 / 480 Output: Urine 700 / 700 Urine Amount (Catheter) 700 / 700 500 / 500 Straight 700 / 700 500 / 500 Other: # Bowel Movements 0 0 GENERAL: Elderly W/M on the vent. SKIN: Warm and dry. HEAD: Atraumatic. Normocephalic. EYES: Pupils equal and round. No scleral icterus. No injection or drainage. ENT: No nasal bleeding or discharge. Mucous membranes pink and moist. NECK: Trachea midline. No JVD. CARDIOVASCULAR: Regular rate and rhythm. RESPIRATORY: No accessory muscle use. Basal crackles +. Breath sounds decreased bilaterally. GASTROINTESTINAL: Abdomen soft, non-tender, nondistended. Hepatic and splenic margins not palpable. MUSCULOSKELETAL: Extremities without clubbing, cyanosis, or edema. No obvious deformities. NEUROLOGICAL: Awake and alert. Motor grossly within normal limits.Intubated and not talking. PSYCHIATRIC: Cannot assess. - Urinary Catheter Management Straight Cath placed during this visit: yes, but has since been removed by the nurse Reason for continuing: Acute urinary retention Insertion date: 12/21/17 Insertion time: 19:00 Removal date: 12/21/17 Removal time: 19:10 Results - Labs CBC & Chem 7: 12/22/17 06:12 12/22/17 06:12 Laboratory Results - last 24 hr 12/21/17 12/22/17 12/22/17 17:31 00:25 05:30 WBC RBC Hgb Hct MCV MCH MCHC RDW Plt Count MPV PT INR Puncture Site Right radial Patient Temperature 98.6 O2 Saturation 92 ABG pH 7.41 ABG pCO2 50 H ABG pO2 70 ABG HCO3 31 H ABG O2 Content 13.2 ABG Base Excess 6.2 H ABG Methemoglobin 1.3 Krishna Test Present Hemoglobin 10.2 L Carboxyhemoglobin 1.3 O2 Delivery Device Ventilator Vent Setting 18/450/it1.0/5peep Inspired O2 50 Critical Value No Sodium Potassium Chloride Carbon Dioxide Anion Gap BUN Creatinine Estimated GFR POC Glucose 227 H 281 H Random Glucose Calcium Phosphorus Magnesium Total Bilirubin AST ALT Alkaline Phosphatase Total Protein Albumin 12/22/17 12/22/17 12/22/17 06:11 06:12 06:12 WBC 7.7 RBC 3.00 L Hgb 9.1 L Hct 27.9 L MCV 93.2 MCH 30.3 MCHC 32.5 RDW 14.8 Plt Count 111 L MPV 9.2 PT 11.7 H INR 1.2 Puncture Site Patient Temperature O2 Saturation ABG pH ABG pCO2 ABG pO2 ABG HCO3 ABG O2 Content ABG Base Excess ABG Methemoglobin Krishna Test Hemoglobin Carboxyhemoglobin O2 Delivery Device Vent Setting Inspired O2 Critical Value Sodium Potassium Chloride Carbon Dioxide Anion Gap BUN Creatinine Estimated GFR POC Glucose 317 H Random Glucose Calcium Phosphorus Magnesium Total Bilirubin AST ALT Alkaline Phosphatase Total Protein Albumin 12/22/17 12/22/17 06:12 11:38 WBC RBC Hgb Hct MCV MCH MCHC RDW Plt Count MPV PT INR Puncture Site Patient Temperature O2 Saturation ABG pH ABG pCO2 ABG pO2 ABG HCO3 ABG O2 Content ABG Base Excess ABG Methemoglobin Krishna Test Hemoglobin Carboxyhemoglobin O2 Delivery Device Vent Setting Inspired O2 Critical Value Sodium 150 H Potassium 5.1 Chloride 113 H Carbon Dioxide 31.6 Anion Gap 5 BUN 57 H Creatinine 1.11 Estimated GFR 64 L POC Glucose 237 H Random Glucose 307 H Calcium 8.1 L Phosphorus 2.4 L Magnesium 2.5 Total Bilirubin 0.4 AST 32 ALT 30 Alkaline Phosphatase 115 Total Protein 5.5 L Albumin 2.4 L Microbiology 12/19/17 21:20 Blood - Peripheral Aerobic Blood Culture - Preliminary No growth in 3 days 12/19/17 21:20 Blood - Peripheral Anaerobic Blood Culture - Preliminary No growth in 3 days 12/19/17 21:30 Blood - Peripheral Aerobic Blood Culture - Preliminary No growth in 3 days 12/19/17 21:30 Blood - Peripheral Anaerobic Blood Culture - Preliminary No growth in 3 days 12/20/17 11:50 Clean Catch Urine Urine Culture - Final No growth in 48 hours 12/20/17 14:10 Sputum - Endotracheal Gram Stain - Final 12/20/17 14:10 Sputum - Endotracheal Sputum Culture - Preliminary Heavy growth normal respiratory vaishnavi at 24 hours Assessment and Plan - Assessment (1) Respiratory failure requiring intubation Code(s): J96.90 - Respiratory failure, unspecified, unspecified whether with hypoxia or hypercapnia Status: Acute (2) Pneumonia Code(s): J18.9 - Pneumonia, unspecified organism Status: Acute (3) CHF (congestive heart failure), NYHA class II Code(s): I50.9 - Heart failure, unspecified Status: Acute (4) CHF (congestive heart failure) Code(s): I50.9 - Heart failure, unspecified Status: Acute (5) Respiratory abnormalities Code(s): J98.9 - Respiratory disorder, unspecified Status: Acute (6) Emphysema of lung Code(s): J43.9 - Emphysema, unspecified Status: Acute (7) Borderline diabetes mellitus Code(s): R73.03 - Prediabetes Status: Acute (8) Fracture, intertrochanteric, left femur Code(s): S72.142A - Displaced intertrochanteric fracture of left femur, initial encounter for closed fracture Status: Acute (9) Nutrition, metabolism, and development symptoms Code(s): R63.8 - Other symptoms and signs concerning food and fluid intake Status: Acute - Plan RECOMMENDATIONS: 1. Continue with vent support and wean FIo2 ,maintain sats above 92%. 2. Bronchodilators in the form of DuoNeb q.4 plus q.2 p.r.n.. 3. Cont Solu-Medrol 40 mg IV BID 4. CPAP trial daily 5. Continue with antibiotics , vancomycin and Zosyn and monitor for signs of infection, which include fever and WBC. 6. No sedation 7. Resp parameters today 8. CBC,BMP ,CXR in am
--- NOTE | 2017-12-22 12:33 | P.PNPAL ---
Reason for Visit Reason for visit: a. To assist with evaluation and management of symptoms including: dyspnea, pain b. To assist medical decision maker(s) with: better understanding of current medical conditions; weighing benefits/burdens of medical treatment options; making medical treatment decisions. Subjective Subjective/Interval History: LATE ENTRY, pt actually seen at 1050. Patient seen today to follow up on comfort/goals. Dual visit with Dr Cameron Villanueva. Pt stable overnight. Remains on mech vent. Sedation unchanged 2mg versed/hr, 50mcg fentanyl hr. BUN uptrending 57, creatinine 1.11. GFR 64. Has been straight cath Q6 hr per nursing-- 400 ML output last cath. H&H 9.1/27.9, plt 111, WBC 7.7. No new imaging. BC no growth to date. Sputum= norm resp vaishnavi. Urine cult no growth. Planned for CPAP at 11am. Afebrile, hemodynamics stable. Pt seen in room, , daughter present. He is sedated, generally calm unless stimulated, soothed by 's touch/voice. Did not aggressively stimulate for exam. Appears comfortable, no obvious distress. Pt unable to provide ROS. Family feels he is comfortable. Met w , dtr at bedside- review most recent diagnostics, current tx in place , conditions being tx. Review stable- no significant worsening, no significant improvements. Explore he remains at risk for complications/changes/setbacks. Sister also was called by dtr, on speakerphone, participated in updates/review. All questions answered to the best of my ability. Family continues to endorse goals aggressive to continue to provide whatever tx available to help pt recover /improve. Family does have ? RE unit policy on # of visitors, they ask if they may be permitted 3 at a time instead of 2, advise I would ask insulation cupola charger but that I could not override established policy. D/w insulation cupola charger per family request, was told that they could only permit 2 visitors at a time, notified primary RN. Family has palliative contact information. d/w Dr Sorto, D/w cook specialty foreign food. Additional history per recent admission 11/13/17: Patient with known history CHF, diabetes, COPD, pulmonary fibrosis and asbestosis, presented to the ED after sustaining a fall in his home. He was lightheaded. Baseline 3-4 L nasal cannula requiring significant assistance with ADLs. Also with known history of LEFT thoracotomy and lobectomy/resection many years ago. Imaging finding of intertrochanteric fracture of proximal left hip. Also findings of osteopenia. Pulmonology evaluated patient and noted that he was cleared for surgery though may require BiPAP after. Suggested limited anesthesia secondary to moderately failure and/or pneumonia. Orthopedics consulted reviewed options family requested to proceed with operative management. During that admission noted during attending discussion with family daughter reports baseline mental status with some component of a dementia. Patient's primary language also reported to be a telemetry and though they requested no interpretation service be used during encounters because this would make him upset. During that hospital course patient did require ICU on BiPAP. Patient with some agitation. Anemia requiring transfusion postoperatively. Ongoing respiratory complication and concern for respiratory decompensation that could require mechanical ventilation and could result in difficulty weaning. Critical care notes discussion with family requested full CODE STATUS and continued aggressive management. Outpatient CT per Dr. Guerrier demonstrated pulmonary fibrosis and bronchiectasis. Patient did have a VQ scan during that admission with ventilation abnormally and perfume and of normal least left lower lobe pattern not typical of PE likely related to lobectomy. Avoiding CTA due to worsening renal function, family did not wish to assume risk. During that hospital course it is noted family requested transfer to [facility], critical care attempted to initiate that process. [facility] declined admission. Patient was also evaluated for LTAC, insurance apparently denied LTAC. Family appealed this and patient was later accepted by [facility]. He was discharged to [facility] 11/20/17 Objective Vital Signs: Vital Signs 12/21/17 13:00 12/21/17 14:00 12/21/17 15:00 Temperature Pulse Rate 87 84 85 Respiratory Rate 18 18 18 Blood Pressure 94/57 L 96/49 L 103/51 L Pulse Oximetry 94 L 94 L 95 12/21/17 15:23 12/21/17 15:38 12/21/17 16:00 Temperature 98.4 F Pulse Rate 86 84 Respiratory Rate 18 18 18 Blood Pressure 109/54 L Pulse Oximetry 94 L 94 L 12/21/17 17:00 12/21/17 18:00 12/21/17 19:00 Temperature Pulse Rate 85 83 84 Respiratory Rate 18 18 18 Blood Pressure 105/52 L 104/51 L 118/54 L Pulse Oximetry 95 94 L 95 12/21/17 19:19 12/21/17 20:00 12/21/17 21:00 Temperature Pulse Rate 82 85 83 Respiratory Rate 18 18 18 Blood Pressure 116/57 L 116/57 L Pulse Oximetry 96 95 94 L 12/21/17 22:00 12/21/17 23:00 12/21/17 23:27 Temperature Pulse Rate 94 H 82 80 Respiratory Rate 18 18 18 Blood Pressure 109/56 L 119/58 L Pulse Oximetry 88 L 95 95 12/22/17 00:00 12/22/17 01:00 12/22/17 02:00 Temperature 98.7 F Pulse Rate 81 82 91 H Respiratory Rate 18 27 H 18 Blood Pressure 123/56 L 119/58 L 122/56 L Pulse Oximetry 95 95 91 L 12/22/17 02:50 12/22/17 03:00 12/22/17 04:00 Temperature 98.6 F Pulse Rate 92 H 84 Respiratory Rate 18 18 19 Blood Pressure 116/58 L 116/56 L Pulse Oximetry 95 95 12/22/17 05:00 12/22/17 06:00 12/22/17 07:16 Temperature Pulse Rate 83 86 98 H Respiratory Rate 18 16 18 Blood Pressure 110/53 L 116/54 L Pulse Oximetry 96 96 95 12/22/17 08:00 12/22/17 10:00 12/22/17 11:16 Temperature 98.5 F Pulse Rate 95 H 98 H 109 H Respiratory Rate 18 21 Blood Pressure 121/57 L Pulse Oximetry 95 12/22/17 11:18 Temperature Pulse Rate Respiratory Rate 18 Blood Pressure Pulse Oximetry 93 L Intake & Output 12/21/17 12/22/17 12/22/17 18:59 06:59 18:59 Intake Total 1554 / 1554 2092.5 / 2092.5 100 / 100 Output Total 1400 / 1400 500 / 500 Balance 154 / 154 1592.5 / 1592.5 100 / 100 Weight 71.5 kg Intake: IV 1100 / 1100 1612.5 / 1612.5 100 / 100 Versed Inj 50 mg In 50 ml @ 2 50 / 50 MG/HR 2 mls/hr IV.CONT TITRATE PRN Rx#:[id number] NS Inj 1,000 ML @ 100 mls/hr IV 1000 / 1000 .CONT .Q10H [facility] Rx#:[id number] Azithromycin Inj 500 MG In NS 500 / 500 Inj 250 ML @ 250 mls/hr IV.SIG Q24H [facility] Rx#:[id number] Zosyn 4.5 GM Premix 4.5 gm In 100 / 100 300 / 300 100 / 100 100 ml @ 200 mls/hr IV.SIG Q6H [facility] Rx#:[id number] Vancomycin Inj 1,000 MG In NS 250 / 250 Inj 250 ML @ 250 mls/hr IV.SIG Q24H [facility] Rx#:[id number] fentaNYL 10 mcg/mL Premix Drip 250 / 250 2,500 mcg In 250 ml @ 50 MCG/HR 5 mls/hr IV.SIG TITRATE PRN Rx #:[id number] Tube Feeding 454 / 454 480 / 480 Output: Urine 700 / 700 Urine Amount (Catheter) 700 / 700 500 / 500 Straight 700 / 700 500 / 500 Other: # Bowel Movements 0 0 Physical Exam: CONSTITUTIONAL/GENERAL: This is a thin elderly male, sedated on mechanical vent TUBES/LINES/DRAINS: peripheral IVs to bilateral upper extremities. ET tube, OG tube. SKIN: No jaundice, rashes, or lesions. Extensive ecchymosis along left hip, upper leg. Some areas of fading. No wounds seen anteriorly. Skin warm and dry. HEAD: Atraumatic. Normocephalic. EYES: Pupils 2mm/slight reaction to light. No scleral icterus. No injection or drainage. Fundi not examined. ENT: Nose without bleeding or purulent drainage. Throat without visible erythema, exudates, limited exam 2/2 ett, ogt CARDIOVASCULAR: Regular rate and rhythm without murmur. No JVD. Peripheral pulses symmetric. RESPIRATORY/CHEST: Symmetric, unlabored respirations on mech vent. Rt w faint rhonchi, left with no air movement. GASTROINTESTINAL: Abdomen soft, no apparent tenderness. No palpable masses. Bowel sounds present.TF infusing to OGT GENITOURINARY: Without palpable bladder distension. MUSCULOSKELETAL: Extremities without clubbing, cyanosis. Slight edema to hands. No joint tenderness or effusion noted. No mottling or clubbing. NEUROLOGICAL: sedated on mech vent, no apparent distress. Does not open eyes. Occasional restless, moves extremities spont. PSYCHIATRIC: occasional restlessness, calmed by family, otherwise no apparent distress. Diagnostic Tests Laboratory: Laboratory Results - last 72 hr 12/19/17 12/19/17 12/19/17 21:30 21:30 21:30 WBC 26.3 H RBC 4.38 L Hgb 13.2 Hct 39.7 MCV 90.6 MCH 30.2 MCHC 33.3 RDW 14.4 Plt Count 301 D MPV 8.0 Prelim Diff (Auto) Slide review pending Neut % (Auto) 81.8 H Lymph % (Auto) 9.1 [place] % (Auto) 8.9 H Eos % (Auto) 0.1 Baso % (Auto) 0.1 Neut # (Auto) 21.5 H Lymph # (Auto) 2.4 [place] # (Auto) 2.3 H Eos # (Auto) 0.0 Baso # (Auto) 0.0 WBC Differential . Diff Scan Auto diff confirmed Differential Comment . PT 11.6 INR 1.1 APTT 24.7 Puncture Site Patient Temperature O2 Saturation ABG pH ABG pCO2 ABG pO2 ABG HCO3 ABG O2 Content ABG Base Excess ABG Methemoglobin Krishna Test Hemoglobin Carboxyhemoglobin O2 Delivery Device Vent Setting Inspired O2 Critical Value Sodium 141 Potassium 4.9 Chloride 99 Carbon Dioxide 36.6 H Anion Gap 5 BUN 29 H Creatinine 0.96 Estimated GFR 75 L POC Glucose Random Glucose 194 H Lactic Acid Calcium 8.6 Phosphorus 3.7 Magnesium 2.0 Total Bilirubin 0.9 AST 33 ALT 35 Alkaline Phosphatase 213 H Total Creatine Kinase 51 Troponin I 0.03 B-Natriuretic Peptide Total Protein 7.6 Albumin 3.1 L Lipase 128 Urine Color Urine Clarity Urine pH Ur Specific [place] Urine Protein Urine Glucose (UA) Urine Ketones Urine Occult Blood Urine Nitrate Urine Bilirubin Urine Urobilinogen Ur Leukocyte Esterase Urine RBC Urine WBC Urine Bacteria Hyaline Casts Urine Mucus Micro UA Comment Ur Microscopic Review Urine Culture Comments Nasal Screen MRSA (PCR) 12/19/17 12/19/17 12/20/17 21:30 21:30 00:20 WBC RBC Hgb Hct MCV MCH MCHC RDW Plt Count MPV Prelim Diff (Auto) Neut % (Auto) Lymph % (Auto) [place] % (Auto) Eos % (Auto) Baso % (Auto) Neut # (Auto) Lymph # (Auto) [place] # (Auto) Eos # (Auto) Baso # (Auto) WBC Differential Diff Scan Differential Comment PT INR APTT Puncture Site Patient Temperature O2 Saturation ABG pH ABG pCO2 ABG pO2 ABG HCO3 ABG O2 Content ABG Base Excess ABG Methemoglobin Krishna Test Hemoglobin Carboxyhemoglobin O2 Delivery Device Vent Setting Inspired O2 Critical Value Sodium Potassium Chloride Carbon Dioxide Anion Gap BUN Creatinine Estimated GFR POC Glucose Random Glucose Lactic Acid 2.1 H 1.1 Calcium Phosphorus Magnesium Total Bilirubin AST ALT Alkaline Phosphatase Total Creatine Kinase Troponin I B-Natriuretic Peptide 330 H Total Protein Albumin Lipase Urine Color Urine Clarity Urine pH Ur Specific [place] Urine Protein Urine Glucose (UA) Urine Ketones Urine Occult Blood Urine Nitrate Urine Bilirubin Urine Urobilinogen Ur Leukocyte Esterase Urine RBC Urine WBC Urine Bacteria Hyaline Casts Urine Mucus Micro UA Comment Ur Microscopic Review Urine Culture Comments Nasal Screen MRSA (PCR) 12/20/17 12/20/17 12/20/17 00:28 01:05 01:28 WBC RBC Hgb Hct MCV MCH MCHC RDW Plt Count MPV Prelim Diff (Auto) Neut % (Auto) Lymph % (Auto) [place] % (Auto) Eos % (Auto) Baso % (Auto) Neut # (Auto) Lymph # (Auto) [place] # (Auto) Eos # (Auto) Baso # (Auto) WBC Differential Diff Scan Differential Comment PT INR APTT Puncture Site Left radial Patient Temperature 98.6 O2 Saturation 90 ABG pH 7.26 L* ABG pCO2 81 H* ABG pO2 76 ABG HCO3 35 H ABG O2 Content 15.3 ABG Base Excess 7.9 H ABG Methemoglobin 0.5 Krishna Test Present Hemoglobin 12.1 Carboxyhemoglobin 1.5 O2 Delivery Device Bipap Vent Setting 12/5 Inspired O2 100 Critical Value Yes Sodium Potassium Chloride Carbon Dioxide Anion Gap BUN Creatinine Estimated GFR POC Glucose Random Glucose Lactic Acid Calcium Phosphorus Magnesium Total Bilirubin AST ALT Alkaline Phosphatase Total Creatine Kinase Troponin I 0.34 H B-Natriuretic Peptide Total Protein Albumin Lipase Urine Color Urine Clarity Urine pH Ur Specific [place] Urine Protein Urine Glucose (UA) Urine Ketones Urine Occult Blood Urine Nitrate Urine Bilirubin Urine Urobilinogen Ur Leukocyte Esterase Urine RBC Urine WBC Urine Bacteria Hyaline Casts Urine Mucus Micro UA Comment Ur Microscopic Review Urine Culture Comments Nasal Screen MRSA (PCR) Not detected 12/20/17 12/20/17 12/20/17 02:25 03:45 03:45 WBC 16.6 H RBC 3.89 L Hgb 11.6 L Hct 35.8 L MCV 92.1 MCH 29.9 MCHC 32.4 RDW 14.2 Plt Count 154 D MPV 8.4 Prelim Diff (Auto) Neut % (Auto) 88.2 H Lymph % (Auto) 4.4 L [place] % (Auto) 7.4 Eos % (Auto) 0.0 Baso % (Auto) 0.0 Neut # (Auto) 14.6 H Lymph # (Auto) 0.7 L [place] # (Auto) 1.2 H Eos # (Auto) 0.0 Baso # (Auto) 0.0 WBC Differential . Diff Scan Differential Comment Auto diff final PT 12.0 H INR 1.2 APTT 26.1 Puncture Site Right radial Patient Temperature 98.6 O2 Saturation 94 ABG pH 7.26 L* ABG pCO2 75 H* ABG pO2 104 ABG HCO3 32 H ABG O2 Content 15.3 ABG Base Excess 5.4 H ABG Methemoglobin 1.3 Krishna Test Present Hemoglobin 11.5 L Carboxyhemoglobin 1.4 O2 Delivery Device Bipap16/+5/100% Vent Setting Inspired O2 100 Critical Value Yes Sodium Potassium Chloride Carbon Dioxide Anion Gap BUN Creatinine Estimated GFR POC Glucose Random Glucose Lactic Acid Calcium Phosphorus Magnesium Total Bilirubin AST ALT Alkaline Phosphatase Total Creatine Kinase Troponin I B-Natriuretic Peptide Total Protein Albumin Lipase Urine Color Urine Clarity Urine pH Ur Specific [place] Urine Protein Urine Glucose (UA) Urine Ketones Urine Occult Blood Urine Nitrate Urine Bilirubin Urine Urobilinogen Ur Leukocyte Esterase Urine RBC Urine WBC Urine Bacteria Hyaline Casts Urine Mucus Micro UA Comment Ur Microscopic Review Urine Culture Comments Nasal Screen MRSA (PCR) 12/20/17 12/20/17 12/20/17 03:45 09:39 11:50 WBC RBC Hgb Hct MCV MCH MCHC RDW Plt Count MPV Prelim Diff (Auto) Neut % (Auto) Lymph % (Auto) [place] % (Auto) Eos % (Auto) Baso % (Auto) Neut # (Auto) Lymph # (Auto) [place] # (Auto) Eos # (Auto) Baso # (Auto) WBC Differential Diff Scan Differential Comment PT INR APTT Puncture Site Right radial Patient Temperature 98.6 O2 Saturation 97 ABG pH 7.34 L ABG pCO2 57 H* ABG pO2 186 H ABG HCO3 30 H ABG O2 Content 14.1 ABG Base Excess 4.7 H ABG Methemoglobin 1.2 Krishna Test Present Hemoglobin 10.1 L Carboxyhemoglobin 1.1 O2 Delivery Device Ventilator Vent Setting Inspired O2 50 Critical Value Yes Sodium 143 Potassium 4.7 Chloride 102 Carbon Dioxide 34.5 H Anion Gap 7 BUN 33 H Creatinine 0.95 Estimated GFR 76 L POC Glucose Random Glucose 180 H Lactic Acid Calcium 8.2 L Phosphorus 5.0 H D Magnesium 2.0 Total Bilirubin 0.9 AST 27 ALT 29 Alkaline Phosphatase 160 H Total Creatine Kinase Troponin I 0.42 H B-Natriuretic Peptide Total Protein 6.3 L D Albumin 2.6 L Lipase Urine Color Yellow Urine Clarity Hazy H Urine pH 6.0 Ur Specific [place] 1.020 Urine Protein 30 H Urine Glucose (UA) 50 Urine Ketones Negative Urine Occult Blood Negative Urine Nitrate Negative Urine Bilirubin Negative Urine Urobilinogen Less than 2 Ur Leukocyte Esterase Negative Urine RBC 1 Urine WBC 3 Urine Bacteria Rare H Hyaline Casts 1 Urine Mucus Few H Micro UA Comment Cath-culture ind Ur Microscopic Review Not Reportable Urine Culture Comments Cath-cult indicated Nasal Screen MRSA (PCR) 12/20/17 12/20/17 12/20/17 12:36 17:44 20:12 WBC RBC Hgb Hct MCV MCH MCHC RDW Plt Count MPV Prelim Diff (Auto) Neut % (Auto) Lymph % (Auto) [place] % (Auto) Eos % (Auto) Baso % (Auto) Neut # (Auto) Lymph # (Auto) [place] # (Auto) Eos # (Auto) Baso # (Auto) WBC Differential Diff Scan Differential Comment PT INR APTT Puncture Site Patient Temperature O2 Saturation ABG pH ABG pCO2 ABG pO2 ABG HCO3 ABG O2 Content ABG Base Excess ABG Methemoglobin Krishna Test Hemoglobin Carboxyhemoglobin O2 Delivery Device Vent Setting Inspired O2 Critical Value Sodium Potassium Chloride Carbon Dioxide Anion Gap BUN Creatinine Estimated GFR POC Glucose 199 H 200 H 218 H Random Glucose Lactic Acid Calcium Phosphorus Magnesium Total Bilirubin AST ALT Alkaline Phosphatase Total Creatine Kinase Troponin I B-Natriuretic Peptide Total Protein Albumin Lipase Urine Color Urine Clarity Urine pH Ur Specific [place] Urine Protein Urine Glucose (UA) Urine Ketones Urine Occult Blood Urine Nitrate Urine Bilirubin Urine Urobilinogen Ur Leukocyte Esterase Urine RBC Urine WBC Urine Bacteria Hyaline Casts Urine Mucus Micro UA Comment Ur Microscopic Review Urine Culture Comments Nasal Screen MRSA (PCR) 12/21/17 12/21/17 12/21/17 05:08 06:08 06:10 WBC 9.2 RBC 3.09 L Hgb 9.4 L D Hct 28.6 L MCV 92.5 MCH 30.4 MCHC 32.8 RDW 14.4 Plt Count 112 L MPV 8.9 Prelim Diff (Auto) Neut % (Auto) Lymph % (Auto) [place] % (Auto) Eos % (Auto) Baso % (Auto) Neut # (Auto) Lymph # (Auto) [place] # (Auto) Eos # (Auto) Baso # (Auto) WBC Differential Diff Scan Differential Comment PT INR APTT Puncture Site Right radial Patient Temperature 98.6 O2 Saturation 93 ABG pH 7.30 L ABG pCO2 59 H* ABG pO2 83 ABG HCO3 28 H ABG O2 Content 12.5 ABG Base Excess 2.4 H ABG Methemoglobin 1.3 Krishna Test Present Hemoglobin 9.5 L Carboxyhemoglobin 1.3 O2 Delivery Device Ventilator Vent Setting Prvc18/450/1.0/+5 Inspired O2 50 Critical Value Yes Sodium Potassium Chloride Carbon Dioxide Anion Gap BUN Creatinine Estimated GFR POC Glucose 323 H Random Glucose Lactic Acid Calcium Phosphorus Magnesium Total Bilirubin AST ALT Alkaline Phosphatase Total Creatine Kinase Troponin I B-Natriuretic Peptide Total Protein Albumin Lipase Urine Color Urine Clarity Urine pH Ur Specific [place] Urine Protein Urine Glucose (UA) Urine Ketones Urine Occult Blood Urine Nitrate Urine Bilirubin Urine Urobilinogen Ur Leukocyte Esterase Urine RBC Urine WBC Urine Bacteria Hyaline Casts Urine Mucus Micro UA Comment Ur Microscopic Review Urine Culture Comments Nasal Screen MRSA (PCR) 12/21/17 12/21/17 12/21/17 06:10 06:10 11:51 WBC RBC Hgb Hct MCV MCH MCHC RDW Plt Count MPV Prelim Diff (Auto) Neut % (Auto) Lymph % (Auto) [place] % (Auto) Eos % (Auto) Baso % (Auto) Neut # (Auto) Lymph # (Auto) [place] # (Auto) Eos # (Auto) Baso # (Auto) WBC Differential Diff Scan Differential Comment PT 11.9 H INR 1.2 APTT Puncture Site Patient Temperature O2 Saturation ABG pH ABG pCO2 ABG pO2 ABG HCO3 ABG O2 Content ABG Base Excess ABG Methemoglobin Krishna Test Hemoglobin Carboxyhemoglobin O2 Delivery Device Vent Setting Inspired O2 Critical Value Sodium 149 H Potassium 4.9 Chloride 110 H D Carbon Dioxide 29.9 Anion Gap 9 BUN 48 H Creatinine 1.09 Estimated GFR 65 L POC Glucose 244 H Random Glucose 304 H D Lactic Acid Calcium 7.5 L Phosphorus 3.2 D Magnesium 2.4 Total Bilirubin 0.5 AST 35 ALT 29 Alkaline Phosphatase 124 H Total Creatine Kinase Troponin I B-Natriuretic Peptide Total Protein 5.6 L D Albumin 2.4 L Lipase Urine Color Urine Clarity Urine pH Ur Specific [place] Urine Protein Urine Glucose (UA) Urine Ketones Urine Occult Blood Urine Nitrate Urine Bilirubin Urine Urobilinogen Ur Leukocyte Esterase Urine RBC Urine WBC Urine Bacteria Hyaline Casts Urine Mucus Micro UA Comment Ur Microscopic Review Urine Culture Comments Nasal Screen MRSA (PCR) 12/21/17 12/22/17 12/22/17 17:31 00:25 05:30 WBC RBC Hgb Hct MCV MCH MCHC RDW Plt Count MPV Prelim Diff (Auto) Neut % (Auto) Lymph % (Auto) [place] % (Auto) Eos % (Auto) Baso % (Auto) Neut # (Auto) Lymph # (Auto) [place] # (Auto) Eos # (Auto) Baso # (Auto) WBC Differential Diff Scan Differential Comment PT INR APTT Puncture Site Right radial Patient Temperature 98.6 O2 Saturation 92 ABG pH 7.41 ABG pCO2 50 H ABG pO2 70 ABG HCO3 31 H ABG O2 Content 13.2 ABG Base Excess 6.2 H ABG Methemoglobin 1.3 Krishna Test Present Hemoglobin 10.2 L Carboxyhemoglobin 1.3 O2 Delivery Device Ventilator Vent Setting 18/450/it1.0/5peep Inspired O2 50 Critical Value No Sodium Potassium Chloride Carbon Dioxide Anion Gap BUN Creatinine Estimated GFR POC Glucose 227 H 281 H Random Glucose Lactic Acid Calcium Phosphorus Magnesium Total Bilirubin AST ALT Alkaline Phosphatase Total Creatine Kinase Troponin I B-Natriuretic Peptide Total Protein Albumin Lipase Urine Color Urine Clarity Urine pH Ur Specific [place] Urine Protein Urine Glucose (UA) Urine Ketones Urine Occult Blood Urine Nitrate Urine Bilirubin Urine Urobilinogen Ur Leukocyte Esterase Urine RBC Urine WBC Urine Bacteria Hyaline Casts Urine Mucus Micro UA Comment Ur Microscopic Review Urine Culture Comments Nasal Screen MRSA (PCR) 12/22/17 12/22/17 12/22/17 06:11 06:12 06:12 WBC 7.7 RBC 3.00 L Hgb 9.1 L Hct 27.9 L MCV 93.2 MCH 30.3 MCHC 32.5 RDW 14.8 Plt Count 111 L MPV 9.2 Prelim Diff (Auto) Neut % (Auto) Lymph % (Auto) [place] % (Auto) Eos % (Auto) Baso % (Auto) Neut # (Auto) Lymph # (Auto) [place] # (Auto) Eos # (Auto) Baso # (Auto) WBC Differential Diff Scan Differential Comment PT 11.7 H INR 1.2 APTT Puncture Site Patient Temperature O2 Saturation ABG pH ABG pCO2 ABG pO2 ABG HCO3 ABG O2 Content ABG Base Excess ABG Methemoglobin Krishna Test Hemoglobin Carboxyhemoglobin O2 Delivery Device Vent Setting Inspired O2 Critical Value Sodium Potassium Chloride Carbon Dioxide Anion Gap BUN Creatinine Estimated GFR POC Glucose 317 H Random Glucose Lactic Acid Calcium Phosphorus Magnesium Total Bilirubin AST ALT Alkaline Phosphatase Total Creatine Kinase Troponin I B-Natriuretic Peptide Total Protein Albumin Lipase Urine Color Urine Clarity Urine pH Ur Specific [place] Urine Protein Urine Glucose (UA) Urine Ketones Urine Occult Blood Urine Nitrate Urine Bilirubin Urine Urobilinogen Ur Leukocyte Esterase Urine RBC Urine WBC Urine Bacteria Hyaline Casts Urine Mucus Micro UA Comment Ur Microscopic Review Urine Culture Comments Nasal Screen MRSA (PCR) 12/22/17 12/22/17 06:12 11:38 WBC RBC Hgb Hct MCV MCH MCHC RDW Plt Count MPV Prelim Diff (Auto) Neut % (Auto) Lymph % (Auto) [place] % (Auto) Eos % (Auto) Baso % (Auto) Neut # (Auto) Lymph # (Auto) [place] # (Auto) Eos # (Auto) Baso # (Auto) WBC Differential Diff Scan Differential Comment PT INR APTT Puncture Site Patient Temperature O2 Saturation ABG pH ABG pCO2 ABG pO2 ABG HCO3 ABG O2 Content ABG Base Excess ABG Methemoglobin Krishna Test Hemoglobin Carboxyhemoglobin O2 Delivery Device Vent Setting Inspired O2 Critical Value Sodium 150 H Potassium 5.1 Chloride 113 H Carbon Dioxide 31.6 Anion Gap 5 BUN 57 H Creatinine 1.11 Estimated GFR 64 L POC Glucose 237 H Random Glucose 307 H Lactic Acid Calcium 8.1 L Phosphorus 2.4 L Magnesium 2.5 Total Bilirubin 0.4 AST 32 ALT 30 Alkaline Phosphatase 115 Total Creatine Kinase Troponin I B-Natriuretic Peptide Total Protein 5.5 L Albumin 2.4 L Lipase Urine Color Urine Clarity Urine pH Ur Specific [place] Urine Protein Urine Glucose (UA) Urine Ketones Urine Occult Blood Urine Nitrate Urine Bilirubin Urine Urobilinogen Ur Leukocyte Esterase Urine RBC Urine WBC Urine Bacteria Hyaline Casts Urine Mucus Micro UA Comment Ur Microscopic Review Urine Culture Comments Nasal Screen MRSA (PCR) Result Diagrams: 12/22/17 06:12 12/22/17 06:12 Microbiology: Microbiology 12/19/17 21:20 Aerobic Blood Culture - Preliminary Blood - Peripheral No growth in 3 days Anaerobic Blood Culture - Preliminary No growth in 3 days 12/19/17 21:30 Aerobic Blood Culture - Preliminary Blood - Peripheral No growth in 3 days Anaerobic Blood Culture - Preliminary No growth in 3 days 12/20/17 11:50 Urine Culture - Final Clean Catch Urine No growth in 48 hours 12/20/17 14:10 Gram Stain - Final Sputum - Endotracheal Sputum Culture - Preliminary Heavy growth normal respiratory vaishnavi at 24 hours 12/20/17 11:50 Legionella Antigen - Final Urine - Catheterized Urine Presumptive negative for Legionella pneumophila serogroup 1 antigen in urine, suggesting no recent or recurrent infection. Infection due to Legionella cannot be ruled out since other serogroups and species may cause disease, antigen may not be present in urine in early infection, and the level of antigen present in the urine may be below the detection limit of the test. 12/20/17 11:50 Streptococcus pneumoniae Antigen (M - Final Urine - Catheterized Urine Presumptive negative for streptococcus pneumoniae antigen, suggesting no current or recent infection. Infection due to Streptococcus pneumoniae cannot be ruled out since the antigen present in the sample may be below the detection limit of the test. Imaging: Impressions Chest X-Ray 12/21/17 05:00 CONCLUSION: No significant interval change. Persistent left-sided pleural effusion and pulmonary parenchymal opacity along with hazy right lung opacity. Assessment and Plan - Disease Oriented Problem List (1) COPD (chronic obstructive pulmonary disease) (2) CHF (congestive heart failure) (3) Respiratory distress (4) Sepsis (5) HCAP (healthcare-associated pneumonia) (6) NAHED (acute kidney injury) (7) Pulmonary hypertension (8) S/P lobectomy of lung - Symptom Scale (1) Dyspnea 0-10 Scale: Unable to quantify (2) Pain 0-10 Scale: Unable to quantify Pertinent Non-Medical Issues: Psychosocial: Retired. Lived in [place] most of his life-- originally from [place], then moved to [place], then to [place]. 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 Supported by , 4 daughters, other extended family. Spiritual:confucianist, sister providing spiritual care Legal:Patient unable to participate due to clinical condition. There is some question of underlying cognitive deficits. His would be appropriate legal decision maker. She is making decisions supported by the rest of the family, daughters, sister are very involved in his care in decision-making Ethical issues impacting care:no ethical issues identified Important Contacts: Sunshine Davenport [phone] Prognosis: This 82-year-old patient is currently hospitalized due to severe sepsis, with respiratory failure. He has multiple chronic comorbidities. 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 He also has underlying COPD, pulmonary fibrosis, prior lobectomy. Overall poor prognosis for survival from current acute issues. Code Status: Full Code Plan: * Legal decision maker: Patient unable to participate due to clinical condition. There is some question of underlying cognitive deficits. His would be appropriate legal decision maker. She is making decisions supported by the rest of the family, daughters, sister are very involved in his care in decision-making * Goals: aggressive goals; patient would want to continue ongoing aggressive treatments to improve his condition, including full code. * CODE STATUS: Full code * SYMPTOMS: --Dyspnea-admitted for shortness of breath. Desaturation reported at home. Urgently intubated upon arrival to ICU. CXR indicative right lower lung probable pneumonia. On broad-spectrum antibiotics. Cultures pending. Currently breathing comfortably on mechanical vent. Family wishes to minimize sedation as much as possible though they also want him to be comfortable if possible. Planned for CPAP trials today --Pain-family endorses a day to day at home patient did not endorse any pain. He is status post hip repair last month. Has been essentially bedbound since that time, potential sources would include recent hip surgery, as well as prolonged bedbound status and recent invasive procedures. Currently breathing comfortable on Versed 2 mg, fentanyl 50 mics an hour, with occasional episodes of restlessness. Appears to be soothed by family tension voice. will continue to monitor. Patient family verbalizes wishing to minimize sedation as much as possible. Family endorses they do not believe pt is painful today. * Palliative care will continue to follow during hospital course as condition evolves, to assist patient/decision-maker with understanding of medical conditions, weighing benefits/burdens of treatment options, for clarification of goals of treatment. Additionally will assist with any symptoms of palliative concern Attestation Attestation: To help prompt me to consider important information that might be impacting today's encounter and assessment, information from prior notes written by myself or my colleagues may have been "brought forward" into today's note. My signature on this note, however, is an attestation that I personally performed the exam, history, and/or decision-making noted today, and, unless otherwise indicated, the interactions with patient, family, and staff as well as the review of records all occurred today. I also attest that the listed assessment and stated plan reflect my best clinical judgment today based on the combination of historical information, prior notes, and today's exam/ interactions. When time spent is documented, it refers only to time spent today by the signer, or if indicated, combined time spent today by collaborating physician/nurse practitioner.
[2017-12-22] MEDS: Morphine Sulfate Inj 2 MG/ML Vial IV.PUSH PRN ×2 (17:34→23:32)
--- NOTE | 2017-12-22 17:58 | P.PNCC ---
Subjective Subjective Remarks/Hospital Course: Hospital Course: 82-year-old male with past medical history of COPD and CHF presents for an evaluation of shortness of breath and hypoxemia worsening over past few days. The nebulizer treatments helped initially however today there were not helpful. EMS reports on scene the O2 sat was in the 80s. He received high flow oxygen and nebulized albuterol in route here. His blood pressure initially in the emergency department was 200/100 however trended down to about 160/90. BiPAP was started in the emergency department with improvement in his O2 sat that has trended towards the high 90s with 100% FiO2 on BiPAP. Shortly after transfer to ICU the patient continues to to be more hypoxemic and restless requiring endotracheal intubation and mechanical ventilation. Subjective: 12/20: intubated and sedated. still hypercarbic with [id number] respiratory acidosis. family unhappy that patient was intubated: they insisted last night on being a Full Code, but apparently the daughter required that she be notified of exactly what SpO2 the patient was at, and it had to reach a certain low level before she would be ok with intubation. Per overnight records , patient presented with severe respiratory distress, and family reports that EMS stated patient "wouldn't make it all the way to [facility]" due to his pulmonary instability. This morning, hypoxia is somewhat improved. remains on broad spectrum antibiotics. I explained to family that this is likely a new pneumonia causing respiratory failure. I also explained that after recent hip fracture and recent prolonged hospitalization, his baseline end-stage lung disease and NYHA Class IV symptoms are likely to worsen, and this may be worsening of his overall end-stage disease processes. Family continues to state that our facility caused his lung failure during the prior hospitalization. They are also concerned about his poor peripheral perfusion and oliguria, which concerns me also: I explained that his heart failure could not tolerate significant amount of iv fluids, and we have already given him 1500mL over the last 12 hours, but they have insisted on additional iv fluids. I explained he had severe sepsis and the mortality associated with this. Daughter continues to remind me that her father "is coming home with her and getting better" as she has stated multiple times in the past. 12/21: no improvements. remains intubated. clinically becoming volume overloaded - will be forced to start diuresis. 12/22: mental status slightly improved. still failing weaning attempts. Objective Vital Signs / I&O: Vital Signs 12/21/17 18:00 12/21/17 19:00 12/21/17 19:19 Temperature Pulse Rate 83 84 82 Respiratory Rate 18 18 18 Blood Pressure 104/51 L 118/54 L Pulse Oximetry 94 L 95 96 12/21/17 20:00 12/21/17 21:00 12/21/17 22:00 Temperature Pulse Rate 85 83 94 H Respiratory Rate 18 18 18 Blood Pressure 116/57 L 116/57 L 109/56 L Pulse Oximetry 95 94 L 88 L 12/21/17 23:00 12/21/17 23:27 12/22/17 00:00 Temperature 37.1 C Pulse Rate 82 80 81 Respiratory Rate 18 18 18 Blood Pressure 119/58 L 123/56 L Pulse Oximetry 95 95 95 12/22/17 01:00 12/22/17 02:00 12/22/17 02:50 Temperature Pulse Rate 82 91 H Respiratory Rate 27 H 18 18 Blood Pressure 119/58 L 122/56 L Pulse Oximetry 95 91 L 12/22/17 03:00 12/22/17 04:00 12/22/17 05:00 Temperature 37.0 C Pulse Rate 92 H 84 83 Respiratory Rate 18 19 18 Blood Pressure 116/58 L 116/56 L 110/53 L Pulse Oximetry 95 95 96 12/22/17 06:00 12/22/17 07:16 12/22/17 08:00 Temperature 36.9 C Pulse Rate 86 98 H 95 H Respiratory Rate 16 18 18 Blood Pressure 116/54 L 121/57 L Pulse Oximetry 96 95 95 12/22/17 10:00 12/22/17 11:16 12/22/17 11:18 Temperature Pulse Rate 98 H 109 H Respiratory Rate 21 18 Blood Pressure Pulse Oximetry 93 L 12/22/17 12:00 12/22/17 14:00 12/22/17 15:34 Temperature 36.5 C Pulse Rate 101 H 110 H 107 H Respiratory Rate 18 26 H Blood Pressure 137/64 Pulse Oximetry 96 92 L 12/22/17 16:00 Temperature 36.9 C Pulse Rate 101 H Respiratory Rate 19 Blood Pressure 203/140 H Pulse Oximetry 94 L Intake & Output 12/21/17 12/22/17 12/22/17 18:59 06:59 18:59 Intake Total 1554 / 1554 2092.5 / 2092.5 200 / 200 Output Total 1400 / 1400 500 / 500 Balance 154 / 154 1592.5 / 1592.5 200 / 200 Weight 71.5 kg Intake: IV 1100 / 1100 1612.5 / 1612.5 200 / 200 Versed Inj 50 mg In 50 ml @ 2 50 / 50 MG/HR 2 mls/hr IV.CONT TITRATE PRN Rx#:[id number] NS Inj 1,000 ML @ 100 mls/hr IV 1000 / 1000 .CONT .Q10H NOAH Rx#:[id number] Azithromycin Inj 500 MG In NS 500 / 500 Inj 250 ML @ 250 mls/hr IV.SIG Q24H NOAH Rx#:[id number] Zosyn 4.5 GM Premix 4.5 gm In 100 / 100 300 / 300 200 / 200 100 ml @ 200 mls/hr IV.SIG Q6H NOAH Rx#:[id number] Vancomycin Inj 1,000 MG In NS 250 / 250 Inj 250 ML @ 250 mls/hr IV.SIG Q24H NOAH Rx#:[id number] fentaNYL 10 mcg/mL Premix Drip 250 / 250 2,500 mcg In 250 ml @ 50 MCG/HR 5 mls/hr IV.SIG TITRATE PRN Rx #:[id number] Tube Feeding 454 / 454 480 / 480 Output: Urine 700 / 700 Urine Amount (Catheter) 700 / 700 500 / 500 Straight 700 / 700 500 / 500 Other: # Bowel Movements 0 0 Result Diagrams: 12/22/17 06:12 12/22/17 06:12 Objective Remarks: GENERAL: Frail elderly male, intubated, sedated, critically ill, lying in bed HEENT: Normocephalic. Atraumatic. Pupils equal, round, reactive, conjugate. Mucous membranes are moist NECK: Trachea is midline. negative jvd. CHEST: PRVC, FiO2 40%. Equal chest rise. Absent breath sounds on the left. Fine rales in the right lower. Rhonchi in the right upper. Prolonged expiratory time. No wheezing. CARDIOVASCULAR: Normal rate, regular rhythm. Sinus. ABDOMEN: Soft, nontender, nondistended. No guarding. MUSCULOSKELETAL: Pulses 2+. No peripheral edema. extremities have improved perfusion. NEUROLOGICAL: RASS -2. Moves all extremities. Withdraws 4. Sedated. Assessment and Plan - Assessment and Plan Plan: Assessment: 82-year-old male with end-stage chronic lung disease and [place] Heart [employer] class IV symptoms with severe right heart dysfunction and systemic pulmonary hypertension secondary to World Health Organization class III process. He now presents with worsening decompensated hypoxic and hypercarbic respiratory failure most likely combination of his underlying end- stage disease process as well as a new right lower lobe pneumonia. He has been healthcare associated in the recent past and we will cover him empirically for healthcare associated pneumonia. Given his end-stage disease processes and the clinical history suggestive of acute respiratory decompensation, I agree with the decision to proceed with intubation given that he remained a full code. I do think a DNR CODE STATUS and hospice would be appropriate for this patient with end-stage disease processes, but the family has always pressed for aggressive measures and continues to press for aggressive measures at this time. I will consult palliative care to have them assist with family decision- making, as this time it may be very difficult to separate him from mechanical ventilation, and he may require tracheostomy and long-term vent weaning. He remains very critically ill in severe sepsis and respiratory failure at this time. Plan by systems: Neurologic: Acute metabolic encephalopathy Versed and fentanyl for goal RASS -2 Frequent neurochecks Avoid long-acting sedatives Daily sedation vacation Respiratory: End-stage COPD Status post left pneumonectomy Right lower lobe healthcare associated pneumonia Congestive heart failure secondary to severe pulmonary hypertension and right ventricular dysfunction On 5 L oxygen by nasal cannula at home continuously Sats at home range between 82-87% vent bundle, hob elevated, nebs iv steroids wean fio2 for goal spo2 > 86% start daily SBTs. Pulmonary consultation Cardiovascular: Congestive heart failure secondary to pulmonary hypertension World health organization class III systemic pulmonary hypertension Severe sepsis stop mivf lasix 40mg po daily Renal: Oliguria Acute kidney injury -- Strict I/Os Straight cath every 6 hours. We will avoid Bethea if possible given risk of catheter associated UTI Daily BMP FEN/GI: Severe acute protein calorie malnutrition Hypernatremia OG tube feeds start free water replacement ICU electrolyte protocol Daily BMP, magnesium, phosphorus Heme/ID: Healthcare associated pneumonia Severe sepsis- present on admission Vancomycin with pharmacy consultation Zosyn Azithromycin this patient has been at home for some time and may have some component of community-acquired pathogens Sputum culture Blood cultures Urine UA with reflex urine culture Endocrine: Hyperglycemia of critical illness -- SSI Prophylaxis: GI Prophylaxis Pepcid DVT Prophylaxis -- SCDs Lovenox Lines: Peripheral IVs Dispo: Remain in ICU. Remains very critically ill with multiorgan dysfunction. Palliative care assistance appreciated.
[2017-12-22] MEDS ORDERED: Pharmacy Ordered Lab Info OTHER ONE (22:45)
[2017-12-22] MEDS: Vancomycin Inj 1,000 MG in Sodium Chlor 0.9% Inj 250 ML IV.SIG SCH (23:37)
[2017-12-23] MEDS: Morphine Sulfate Inj 2 MG/ML Vial IV.PUSH PRN ×3 (02:02→15:36)
[2017-12-23] MEDS: Azithromycin Inj 500 MG in Sodium Chlor 0.9% Inj 250 ML IV.SIG SCH (02:03)
[2017-12-23] MEDS: Piperacil/Tazo 4.5 GM Premix 4.5 GM/100 ML BAG IV.SIG SCH ×4 (02:03→19:41)
--- NOTE | 2017-12-23 04:03 | XR ---
EXAM DATE: 12/23/2017 12:00 AM EDT AGE/SEX: 82 years / Male INDICATIONS: Short of breath. CLINICAL DATA: This is the patient's subsequent encounter. Patient reports that signs and symptoms h ave been present for 4 - 6 days and indicates a pain score of 0/10. MEDICAL/SURGICAL HISTORY: Chronic obstructive pulmonary disease. Diabetes. Lobectomy. COMPARISON: [facility] [place], CHEST 1V SINGLE AP, 12/21/2017. . FINDINGS: Single AP view the chest. Endotracheal tube remains in place with the tip at the camilla. Nasogastric tube also remains in place. Persistent prominent left pleural effusion and bilateral pulmonary parenc hymal opacity unchanged. CONCLUSION: Endotracheal tube tip at the camilla. No other significant interval change. Persistent left pleural ef fusion and bilateral pulmonary parenchymal opacity. Electronically signed by: Maurilio Meredith MD 12/23/2017 4:02 AM EDT
[2017-12-23 04:43] LABS: Hematocrit 28.6 % (39.0-51.0); Hemoglobin 9.4 gm/dL (13.0-17.0); Mean Corpuscular HGB Conc 32.7 % (32.0-36.0); Mean Corpuscular Hemoglobin 30.1 pg (27.0-34.0); Mean Corpuscular Volume 92.2 fL (80.0-100.0); Mean Platelet Volume 8.6 fL (7.0-11.0); Platelet Count 110 th/mm3 (150-450); Red Cell Distribution Width 14.8 % (11.6-17.2)
[2017-12-23] MEDS: Chlorhexidine Gluconate 2% 1 Pack (2 Cloths) TOPICAL SCH (04:43)
[2017-12-23] MEDS: Oral Hygiene Kit OROPHARYNG SCH ×3 (04:43→15:28)
[2017-12-23 04:52] LABS: INR 1.2 Ratio; Prothrombin Time 12.1 sec (9.8-11.6)
[2017-12-23 05:04] LABS: Alanine Aminotransferase 39 U/L (12-78); Albumin 2.3 g/dL (3.4-5.0); Anion Gap 6 meq/L (5-15); Aspartate Aminotransferase 35 U/L (15-37); Blood Urea Nitrogen 53 mg/dL (7-18); Calcium 7.7 mg/dL (8.5-10.1); Carbon Dioxide 36.3 meq/L (21.0-32.0); Chloride 111 meq/L (98-107); Glucose,Random 297 mg/dL (74-106); Magnesium 2.4 mg/dL (1.5-2.5); Phosphorus 2.4 mg/dL (2.5-4.9); Potassium 4.8 meq/L (3.5-5.1); Sodium 153 meq/L (136-145)
[2017-12-23 05:06] LABS: Alkaline Phosphatase 122 U/L (45-117); Glomerular Filtration Rate 65 mL/min (>89); Total Protein 5.5 g/dL (6.4-8.2)
[2017-12-23 06:07] LABS: ABG Base Excess 9.3 mmol/L (-2-2); ABG PCO2 53 mmHg (38-42); ABG PO2 73 mmHG (61-120)
[2017-12-23] MEDS: MethylPREDNISolone Sod Succinate Inj 40 MG/ML Vial IV.PUSH SCH ×3 (06:32→21:58)
[2017-12-23] MEDS: Insulin NovoLOG Aspart Correctional Sugar Inj SQ SCH ×3 (06:33→17:47)
[2017-12-23] MEDS: Chlorhexidine 0.12% Oral Kit 15 ML UDC OROPHARYNG SCH ×2 (08:02→20:37)
[2017-12-23] MEDS: Famotidine PF Inj 20 MG/2 ML Vial IV.PUSH SCH (08:02)
[2017-12-23] MEDS: Enoxaparin Inj 40 MG/0.4 ML Syringe SQ SCH (08:02)
[2017-12-23] MEDS: Furosemide 40 MG Tablet PO SCH (08:03)
[2017-12-23] MEDS: Senna/Docusate Sodium 8.6/50 MG Tablet PO SCH ×2 (08:03→20:02)
--- NOTE | 2017-12-23 12:27 | P.PN ---
Subjective Interval history: Remains on the ventilator. FIO2 now at 50 %. Awake and seems stable. Tolerates feeds. Physical Exam Vital signs: Vital Signs 12/22/17 14:00 12/22/17 15:34 12/22/17 16:00 Temperature 98.4 F Pulse Rate 110 H 107 H 101 H Respiratory Rate 26 H 19 Blood Pressure 203/140 H Pulse Oximetry 92 L 94 L 12/22/17 18:00 12/22/17 20:00 12/22/17 20:07 Temperature 98.2 F Pulse Rate 109 H 104 H 99 H Respiratory Rate 23 18 Blood Pressure 136/64 Pulse Oximetry 94 L 96 12/22/17 22:00 12/22/17 23:47 12/23/17 00:00 Temperature 98.1 F Pulse Rate 99 H 93 H 93 H Respiratory Rate 18 18 Blood Pressure 118/57 L Pulse Oximetry 93 L 93 L 12/23/17 02:00 12/23/17 04:00 12/23/17 04:04 Temperature 98.8 F Pulse Rate 104 H 100 H 96 H Respiratory Rate 18 21 Blood Pressure 115/81 Pulse Oximetry 96 96 12/23/17 05:54 12/23/17 07:21 12/23/17 07:27 Temperature Pulse Rate 97 H 96 H Respiratory Rate 19 23 Blood Pressure Pulse Oximetry 96 12/23/17 08:00 12/23/17 10:00 12/23/17 11:11 Temperature 98.7 F Pulse Rate 97 H 99 H 96 H Respiratory Rate 25 H 21 Blood Pressure 144/63 H Pulse Oximetry 96 96 Intake & Output 12/22/17 12/23/17 12/23/17 18:59 06:59 18:59 Intake Total 1230 / 1230 1304 / 1304 100 / 100 Output Total 1000 / 1000 1050 / 1050 Balance 230 / 230 254 / 254 100 / 100 Weight 75 kg Intake: IV 200 / 200 700 / 700 100 / 100 Azithromycin Inj 500 MG In NS 250 / 250 Inj 250 ML @ 250 mls/hr IV.SIG Q24H NOAH Rx#:[id number] Zosyn 4.5 GM Premix 4.5 gm In 200 / 200 200 / 200 100 / 100 100 ml @ 200 mls/hr IV.SIG Q6H NOAH Rx#:[id number] fentaNYL 10 mcg/mL Premix Drip 250 / 250 2,500 mcg In 250 ml @ 50 MCG/HR 5 mls/hr IV.SIG TITRATE PRN Rx #:[id number] Tube Feeding 980 / 980 604 / 604 Water Bolus Amount 50 / 50 Output: Urine 250 / 250 Urine Amount (Catheter) 1000 / 1000 800 / 800 Straight 1000 / 1000 800 / 800 Other: Date of Last Bowel Movement 12/22/17 # Bowel Movements 4 GENERAL: Elderly W/M on the vent. SKIN: Warm and dry. HEAD: Normocephalic. EYES: No scleral icterus. No injection or drainage. NECK: Supple, trachea midline. No JVD or lymphadenopathy. CARDIOVASCULAR: Irregular rate and rhythm without murmurs, gallops, or rubs. RESPIRATORY: Breath sounds reduced on the left.Occ Crackles. No accessory muscle use. GASTROINTESTINAL: Abdomen soft, non-tender, nondistended. MUSCULOSKELETAL: No cyanosis, or edema. BACK: Nontender without obvious deformity. No CVA tenderness.Neuro: Awake. - Urinary Catheter Management Straight Cath placed during this visit: yes, but has since been removed by the nurse Reason for continuing: Not indwelling catheter Insertion date: 12/23/17 Insertion time: 01:00 Removal date: 12/22/17 Removal time: 01:00 Results - Labs CBC & Chem 7: 12/23/17 04:28 12/23/17 04:28 Laboratory Results - last 24 hr 12/22/17 12/22/17 12/22/17 17:38 22:59 23:00 WBC RBC Hgb Hct MCV MCH MCHC RDW Plt Count MPV PT INR Puncture Site Patient Temperature O2 Saturation ABG pH ABG pCO2 ABG pO2 ABG HCO3 ABG O2 Content ABG Base Excess ABG Methemoglobin Krishna Test Hemoglobin Carboxyhemoglobin O2 Delivery Device Vent Setting Inspired O2 Critical Value Sodium Potassium Chloride Carbon Dioxide Anion Gap BUN Creatinine Estimated GFR POC Glucose 242 H 305 H Random Glucose Calcium Phosphorus Magnesium Total Bilirubin AST ALT Alkaline Phosphatase Total Protein Albumin Stl C.difficile Tox PCR St C. diff Tox Epid 027 Vancomycin Trough 13.4 H 12/23/17 12/23/17 12/23/17 01:00 04:28 04:28 WBC 8.0 RBC 3.10 L Hgb 9.4 L Hct 28.6 L MCV 92.2 MCH 30.1 MCHC 32.7 RDW 14.8 Plt Count 110 L MPV 8.6 PT 12.1 H INR 1.2 Puncture Site Patient Temperature O2 Saturation ABG pH ABG pCO2 ABG pO2 ABG HCO3 ABG O2 Content ABG Base Excess ABG Methemoglobin Krishna Test Hemoglobin Carboxyhemoglobin O2 Delivery Device Vent Setting Inspired O2 Critical Value Sodium Potassium Chloride Carbon Dioxide Anion Gap BUN Creatinine Estimated GFR POC Glucose Random Glucose Calcium Phosphorus Magnesium Total Bilirubin AST ALT Alkaline Phosphatase Total Protein Albumin Stl C.difficile Tox PCR Negative St C. diff Tox Epid 027 Negative Vancomycin Trough 12/23/17 12/23/17 12/23/17 04:28 05:50 11:42 WBC RBC Hgb Hct MCV MCH MCHC RDW Plt Count MPV PT INR Puncture Site Right radial Patient Temperature 98.6 O2 Saturation 92 ABG pH 7.42 ABG pCO2 53 H* ABG pO2 73 ABG HCO3 34 H ABG O2 Content 13.7 ABG Base Excess 9.3 H ABG Methemoglobin 1.3 Krishna Test Present Hemoglobin 10.5 L Carboxyhemoglobin 1.4 O2 Delivery Device Ventilator Vent Setting 18/450/it1.0/5peep Inspired O2 45 Critical Value Yes Sodium 153 H Potassium 4.8 Chloride 111 H Carbon Dioxide 36.3 H Anion Gap 6 BUN 53 H Creatinine 1.09 Estimated GFR 65 L POC Glucose 284 H Random Glucose 297 H Calcium 7.7 L Phosphorus 2.4 L Magnesium 2.4 Total Bilirubin 0.5 AST 35 ALT 39 Alkaline Phosphatase 122 H Total Protein 5.5 L Albumin 2.3 L Stl C.difficile Tox PCR St C. diff Tox Epid 027 Vancomycin Trough Microbiology 12/19/17 21:20 Blood - Peripheral Aerobic Blood Culture - Preliminary No growth in 4 days 12/19/17 21:20 Blood - Peripheral Anaerobic Blood Culture - Preliminary No growth in 4 days 12/19/17 21:30 Blood - Peripheral Aerobic Blood Culture - Preliminary No growth in 4 days 12/19/17 21:30 Blood - Peripheral Anaerobic Blood Culture - Preliminary No growth in 4 days 12/20/17 14:10 Sputum - Endotracheal Gram Stain - Final 12/20/17 14:10 Sputum - Endotracheal Sputum Culture - Final Heavy growth normal respiratory vaishnavi 12/20/17 11:50 Clean Catch Urine Urine Culture - Final No growth in 48 hours - Imaging Impressions Chest X-Ray 12/23/17 00:00 CONCLUSION: Endotracheal tube tip at the camilla. No other significant interval change. Persistent left pleural effusion and bilateral pulmonary parenchymal opacity. Assessment and Plan - Assessment (1) Respiratory failure requiring intubation Code(s): J96.90 - Respiratory failure, unspecified, unspecified whether with hypoxia or hypercapnia Status: Acute (2) Pneumonia Code(s): J18.9 - Pneumonia, unspecified organism Status: Acute (3) CHF (congestive heart failure), NYHA class II Code(s): I50.9 - Heart failure, unspecified Status: Acute (4) CHF (congestive heart failure) Code(s): I50.9 - Heart failure, unspecified Status: Acute (5) Respiratory abnormalities Code(s): J98.9 - Respiratory disorder, unspecified Status: Acute (6) Emphysema of lung Code(s): J43.9 - Emphysema, unspecified Status: Acute (7) Borderline diabetes mellitus Code(s): R73.03 - Prediabetes Status: Acute (8) Fracture, intertrochanteric, left femur Code(s): S72.142A - Displaced intertrochanteric fracture of left femur, initial encounter for closed fracture Status: Acute (9) Nutrition, metabolism, and development symptoms Code(s): R63.8 - Other symptoms and signs concerning food and fluid intake Status: Acute - Plan RECOMMENDATIONS: 1. Continue with vent support and wean FIo2 ,maintain sats above 92%. 2. Bronchodilators in the form of DuoNeb q.6 plus q.2 p.r.n.. 3. Cont Solu-Medrol 40 mg IV BID 4. CPAP trial daily 5. Continue with antibiotics , vancomycin and Zosyn and monitor for signs of infection, which include fever and WBC. 6. No sedation 7. Resp parameters today 8. CBC,BMP ,CXR in am 9. Consider extubation if meets criteria, and D/W family at length.
--- NOTE | 2017-12-23 13:15 | P.PNCC ---
Subjective Subjective Remarks/Hospital Course: 82-year-old male with past medical history of COPD and CHF presents for an evaluation of shortness of breath and hypoxemia worsening over past few days. The nebulizer treatments helped initially however today there were not helpful. EMS reports on scene the O2 sat was in the 80s. He received high flow oxygen and nebulized albuterol in route here. His blood pressure initially in the emergency department was 200/100 however trended down to about 160/90. BiPAP was started in the emergency department with improvement in his O2 sat that has trended towards the high 90s with 100% FiO2 on BiPAP. Shortly after transfer to ICU the patient continues to to be more hypoxemic and restless requiring endotracheal intubation and mechanical ventilation. 12/20: intubated and sedated. still hypercarbic with [id number] respiratory acidosis. family unhappy that patient was intubated: they insisted last night on being a Full Code, but apparently the daughter required that she be notified of exactly what SpO2 the patient was at, and it had to reach a certain low level before she would be ok with intubation. Per overnight records , patient presented with severe respiratory distress, and family reports that EMS stated patient "wouldn't make it all the way to [facility]" due to his pulmonary instability. This morning, hypoxia is somewhat improved. remains on broad spectrum antibiotics. I explained to family that this is likely a new pneumonia causing respiratory failure. I also explained that after recent hip fracture and recent prolonged hospitalization, his baseline end-stage lung disease and NYHA Class IV symptoms are likely to worsen, and this may be worsening of his overall end-stage disease processes. Family continues to state that our facility caused his lung failure during the prior hospitalization. They are also concerned about his poor peripheral perfusion and oliguria, which concerns me also: I explained that his heart failure could not tolerate significant amount of iv fluids, and we have already given him 1500mL over the last 12 hours, but they have insisted on additional iv fluids. I explained he had severe sepsis and the mortality associated with this. Daughter continues to remind me that her father "is coming home with her and getting better" as she has stated multiple times in the past. 12/21: no improvements. remains intubated. clinically becoming volume overloaded - will be forced to start diuresis. 12/22: mental status slightly improved. still failing weaning attempts. Subjective: 12/23: Afebrile. Currently on PST trial 15/7 at 45%. Discussed with and daughter at bedside. Chest x-ray revealed ET tube at [place]. Retracted 1 cm. Tolerating tube feeds with family requested 40 cc an hour. Objective Vital Signs / I&O: Vital Signs 12/22/17 14:00 12/22/17 15:34 12/22/17 16:00 Temperature 98.4 F Pulse Rate 110 H 107 H 101 H Respiratory Rate 26 H 19 Blood Pressure 203/140 H Pulse Oximetry 92 L 94 L 12/22/17 18:00 12/22/17 20:00 12/22/17 20:07 Temperature 98.2 F Pulse Rate 109 H 104 H 99 H Respiratory Rate 23 18 Blood Pressure 136/64 Pulse Oximetry 94 L 96 12/22/17 22:00 12/22/17 23:47 12/23/17 00:00 Temperature 98.1 F Pulse Rate 99 H 93 H 93 H Respiratory Rate 18 18 Blood Pressure 118/57 L Pulse Oximetry 93 L 93 L 12/23/17 02:00 12/23/17 04:00 12/23/17 04:04 Temperature 98.8 F Pulse Rate 104 H 100 H 96 H Respiratory Rate 18 21 Blood Pressure 115/81 Pulse Oximetry 96 96 12/23/17 05:54 12/23/17 07:21 12/23/17 07:27 Temperature Pulse Rate 97 H 96 H Respiratory Rate 19 23 Blood Pressure Pulse Oximetry 96 12/23/17 08:00 12/23/17 10:00 12/23/17 11:11 Temperature 98.7 F Pulse Rate 97 H 99 H 96 H Respiratory Rate 25 H 21 Blood Pressure 144/63 H Pulse Oximetry 96 96 12/23/17 13:04 Temperature Pulse Rate Respiratory Rate 24 Blood Pressure Pulse Oximetry 97 Intake & Output 12/22/17 12/23/17 12/23/17 18:59 06:59 18:59 Intake Total 1230 / 1230 1304 / 1304 100 / 100 Output Total 1000 / 1000 1050 / 1050 Balance 230 / 230 254 / 254 100 / 100 Weight 75 kg Intake: IV 200 / 200 700 / 700 100 / 100 Azithromycin Inj 500 MG In NS 250 / 250 Inj 250 ML @ 250 mls/hr IV.SIG Q24H NOHA Rx#:[id number] Zosyn 4.5 GM Premix 4.5 gm In 200 / 200 200 / 200 100 / 100 100 ml @ 200 mls/hr IV.SIG Q6H NOAH Rx#:[id number] fentaNYL 10 mcg/mL Premix Drip 250 / 250 2,500 mcg In 250 ml @ 50 MCG/HR 5 mls/hr IV.SIG TITRATE PRN Rx #:[id number] Tube Feeding 980 / 980 604 / 604 Water Bolus Amount 50 / 50 Output: Urine 250 / 250 Urine Amount (Catheter) 1000 / 1000 800 / 800 Straight 1000 / 1000 800 / 800 Other: Date of Last Bowel Movement 12/22/17 # Bowel Movements 4 Result Diagrams: 12/23/17 04:28 12/23/17 04:28 Other Results: Microbiology 12/19/17 21:20 Blood - Peripheral Aerobic Blood Culture - Preliminary No growth in 4 days 12/19/17 21:20 Blood - Peripheral Anaerobic Blood Culture - Preliminary No growth in 4 days 12/19/17 21:30 Blood - Peripheral Aerobic Blood Culture - Preliminary No growth in 4 days 12/19/17 21:30 Blood - Peripheral Anaerobic Blood Culture - Preliminary No growth in 4 days 12/20/17 14:10 Sputum - Endotracheal Gram Stain - Final 12/20/17 14:10 Sputum - Endotracheal Sputum Culture - Final Heavy growth normal respiratory vaishnavi 12/20/17 11:50 Clean Catch Urine Urine Culture - Final No growth in 48 hours 12/20/17 11:50 Urine - Catheterized Urine Legionella Antigen - Final Presumptive negative for Legionella pneumophila serogroup 1 antigen in urine, suggesting no recent or recurrent infection. Infection due to Legionella cannot be ruled out since other serogroups and species may cause disease, antigen may not be present in urine in early infection, and the level of antigen present in the urine may be below the detection limit of the test. 12/20/17 11:50 Urine - Catheterized Urine Streptococcus pneumoniae Antigen ( M - Final Presumptive negative for streptococcus pneumoniae antigen, suggesting no current or recent infection. Infection due to Streptococcus pneumoniae cannot be ruled out since the antigen present in the sample may be below the detection limit of the test. Imaging: Chest X-Ray 12/19/17 21:26 CONCLUSION: Worsening airspace process right lower lung most likely pneumonia with completely opacified left hemithorax probably due to a pleural effusion and/or left lung consolidation/collapse. Underlying mass is difficult to exclude. Chest X-Ray 12/20/17 04:19 CONCLUSION: 1. Worsening right upper lobe consolidation. 2. Slightly improved right base consolidation. 3. Volume loss, consolidation and pleural effusion on the left slightly improved. Chest X-Ray 12/21/17 05:00 CONCLUSION: No significant interval change. Persistent left-sided pleural effusion and pulmonary parenchymal opacity along with hazy right lung opacity. Chest X-Ray 12/23/17 00:00 CONCLUSION: Endotracheal tube tip at the [place]. No other significant interval change. Persistent left pleural effusion and bilateral pulmonary parenchymal opacity. Objective Remarks: GENERAL: 82-year-old male currently orotracheally intubated HEENT: Normocephalic. Atraumatic. Pupils equal, round, reactive, conjugate. Mucous membranes are moist NECK: Trachea is midline. negative jvd. CHEST: Fine rales in the right lower lobe. Rhonchi in the right upper. Prolonged expiratory time. No wheezing. CARDIOVASCULAR: Normal rate, regular rhythm. S1, S2. No S4 ABDOMEN: Soft, nontender, nondistended. No guarding. MUSCULOSKELETAL: Pulses 2+. No peripheral edema. No mottling NEUROLOGICAL: Arousable and follows commands. Moves all 4 extremities spontaneously. Assessment and Plan - Assessment and Plan Plan: Neuro/Psych: Acute metabolic encephalopathy Currently off all sedation and tolerating well per family request Acetaminophen liquid 650 every 6 hours as needed fever Family agreeable to morphine sulfate 1-2 mg IV every 4 hours as needed pain Respiratory: End-stage COPD Status post left lower lobe pneumonectomy Right lower lobe healthcare associated pneumonia Congestive heart failure secondary to severe pulmonary hypertension and right ventricular dysfunction On 5 L oxygen by nasal cannula at home continuously Sats at home range between 82-87% Currently on PSV trial 15/5% Albuterol/ipratropium aerosols every 4 hours with albuterol aerosols every 2 hours as needed dyspnea Follow-up chest x-ray in a.m. 12/24 iv steroids wean fio2 for goal spo2 > 86% start daily SBTs. 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 Normal left ventricular size. Wall thickness is normal. No regional wall motion abnormalities are present. Diffuse calcification of the aortic valve but no significant stenosis. There is mild to moderate tricuspid valve regurgitation. The estimated pulmonary arterial pressure is 76.9 mmHg with severe pulmonary hypertension. Continue furosemide 40 mg daily/home medication As needed labetalol and Nitropaste for hypertension Renal/: Acute kidney injury History of nephrolithiasis -- Strict I/Os Straight cath every 6 hours. We will avoid Bethea if possible given risk of catheter associated UTI Daily BMP FEN/GI: Severe acute protein calorie malnutrition Hypernatremia Hypophosphatemia OG tube feeds at 40 cc an hour Glucerna 1.5 Lansoprazole for GI prophylaxis Docusate sodium/senna 1 tablet twice daily for bowel regimen start free water replacement with free water 100 cc every 4 hours ICU electrolyte protocol Daily BMP, magnesium, phosphorus Heme/ID: Healthcare associated pneumonia Severe sepsis- present on admission Normocytic anemia Thrombocytopenia Vancomycin with pharmacy consultation, piperacillin/tazobactam and azithromycin since 12/19 Sputum culture 12/20- Blood cultures 12/19 no growth Urine UA with reflex urine culture 12/20- Negative Legionella and pneumococcal urinary antigens Monitor CBC daily and follow trends. No indication for transfusion of blood products at this time Endocrine: Hyperglycemia of critical illness -- SSI to maintain euglycemia with aspart insulin every 6 hours high. Add insulin detemir 5 twice daily MSK:: History of left IT nailing 11/14 Vitamin D deficiency PT evaluate and treat Prophylaxis: GI Prophylaxis Lansoprazole DVT Prophylaxis -- SCDs Enoxaparin Lines: Peripheral IVs Level 2 follow-up Code Status: Full code
--- NOTE | 2017-12-23 13:37 | P.PNPAL ---
Reason for Visit Reason for visit: a. To assist with evaluation and management of symptoms including: dyspnea, pain b. To assist medical decision maker(s) with: better understanding of current medical conditions; weighing benefits/burdens of medical treatment options; making medical treatment decisions. Subjective Subjective/Interval History: Patient seen today to follow up on comfort/goals. Pt stable overnight. Remains on mech vent, tolerated CPAP yesterday x5 hrs, today 5-6 hrs. Has been off sedation per family request since yesterday. + having loose BMs- C-diff negative. Tolerating TF. H&H stable 9.4/28.6, plt 110 , WBC 8. CXR today with no significant changes. BC no growth to date. Afebrile, hemodynamics stable. Nursing reports some tachypnea, mild restlessness at times on vent however family does not want sedation continuous. . Met w , dtr at bedside- review most recent diagnostics, current tx in place , conditions being tx. Review stable- no significant worsening, no significant improvements. Explore he remains at risk for complications/changes/setbacks. Pt expresses that she feels they "are being rushed" explore what she means by this. She asks how long pt can be on a ventilator, review with them that artificial ventilation can continue potentially 4 months depending on the patient condition, as well as patient wishes. Further explore though that for long-term ventilation tracheostomy would need to be placed. Reviewed that a tracheostomy is generally recommended after 1 or 2 weeks again dependent on patient condition, when patient unable to be weaned off mechanical vent, and it is felt that the patient would require longer term mechanical ventilation. Reviewed that this is dependent on patient condition AND wishes, and that they do not need to make these decisions today, probably not this week but in 1 week if he remains on a ventilator they would need to make these decisions. Further explore that even if patient recovers from current respiratory issues given his recently ill status and current lung condition he remains high risk for ongoing lung and breathing complications. endorses that they have joe, and they are confident that he will be able to come off of mechanical vent. All questions answered to the best my ability, they have palliative contact information. To my exam patient alert at times. Mildly restless at times. Has just been changed back to rate from CPAP per nursing report. He follows commands when family requests in the telemetry andweakly grasps with hands, weakly moves feet. Family indicates that he is not having any pain or discomfort, they feel that overall he is comfortable and without pain or anxiety. D/w gum maker. Additional history per recent admission 11/13/17: Patient with known history CHF, diabetes, COPD, pulmonary fibrosis and asbestosis, presented to the ED after sustaining a fall in his home. He was lightheaded. Baseline 3-4 L nasal cannula requiring significant assistance with ADLs. Also with known history of LEFT thoracotomy and lobectomy/resection many years ago. Imaging finding of intertrochanteric fracture of proximal left hip. Also findings of osteopenia. Pulmonology evaluated patient and noted that he was cleared for surgery though may require BiPAP after. Suggested limited anesthesia secondary to moderately failure and/or pneumonia. Orthopedics consulted reviewed options family requested to proceed with operative management. During that admission noted during attending discussion with family daughter reports baseline mental status with some component of a dementia. Patient's primary language also reported to be a telemetry and though they requested no interpretation service be used during encounters because this would make him upset. During that hospital course patient did require ICU on BiPAP. Patient with some agitation. Anemia requiring transfusion postoperatively. Ongoing respiratory complication and concern for respiratory decompensation that could require mechanical ventilation and could result in difficulty weaning. Critical care notes discussion with family requested full CODE STATUS and continued aggressive management. Outpatient CT per Dr. Guerrier demonstrated pulmonary fibrosis and bronchiectasis. Patient did have a VQ scan during that admission with ventilation abnormally and perfume and of normal least left lower lobe pattern not typical of PE likely related to lobectomy. Avoiding CTA due to worsening renal function, family did not wish to assume risk. During that hospital course it is noted family requested transfer to [facility], critical care attempted to initiate that process. [facility] declined admission. Patient was also evaluated for LTAC, insurance apparently denied LTAC. Family appealed this and patient was later accepted by [facility]. He was discharged to [facility] 11/20/17 Objective Vital Signs: Vital Signs 12/22/17 14:00 12/22/17 15:34 12/22/17 16:00 Temperature 98.4 F Pulse Rate 110 H 107 H 101 H Respiratory Rate 26 H 19 Blood Pressure 203/140 H Pulse Oximetry 92 L 94 L 12/22/17 18:00 12/22/17 20:00 12/22/17 20:07 Temperature 98.2 F Pulse Rate 109 H 104 H 99 H Respiratory Rate 23 18 Blood Pressure 136/64 Pulse Oximetry 94 L 96 12/22/17 22:00 12/22/17 23:47 12/23/17 00:00 Temperature 98.1 F Pulse Rate 99 H 93 H 93 H Respiratory Rate 18 18 Blood Pressure 118/57 L Pulse Oximetry 93 L 93 L 12/23/17 02:00 12/23/17 04:00 12/23/17 04:04 Temperature 98.8 F Pulse Rate 104 H 100 H 96 H Respiratory Rate 18 21 Blood Pressure 115/81 Pulse Oximetry 96 96 12/23/17 05:54 12/23/17 07:21 12/23/17 07:27 Temperature Pulse Rate 97 H 96 H Respiratory Rate 19 23 Blood Pressure Pulse Oximetry 96 12/23/17 08:00 12/23/17 10:00 12/23/17 11:11 Temperature 98.7 F Pulse Rate 97 H 99 H 96 H Respiratory Rate 25 H 21 Blood Pressure 144/63 H Pulse Oximetry 96 96 12/23/17 12:00 12/23/17 13:04 Temperature 99.0 F Pulse Rate 100 H Respiratory Rate 35 H 24 Blood Pressure 165/81 H Pulse Oximetry 96 97 Intake & Output 12/22/17 12/23/17 12/23/17 18:59 06:59 18:59 Intake Total 1230 / 1230 1304 / 1304 100 / 100 Output Total 1000 / 1000 1050 / 1050 Balance 230 / 230 254 / 254 100 / 100 Weight 75 kg Intake: IV 200 / 200 700 / 700 100 / 100 Azithromycin Inj 500 MG In NS 250 / 250 Inj 250 ML @ 250 mls/hr IV.SIG Q24H NOAH Rx#:[id number] Zosyn 4.5 GM Premix 4.5 gm In 200 / 200 200 / 200 100 / 100 100 ml @ 200 mls/hr IV.SIG Q6H NOAH Rx#:[id number] fentaNYL 10 mcg/mL Premix Drip 250 / 250 2,500 mcg In 250 ml @ 50 MCG/HR 5 mls/hr IV.SIG TITRATE PRN Rx #:[id number] Tube Feeding 980 / 980 604 / 604 Water Bolus Amount 50 / 50 Output: Urine 250 / 250 Urine Amount (Catheter) 1000 / 1000 800 / 800 Straight 1000 / 1000 800 / 800 Other: Date of Last Bowel Movement 12/22/17 # Bowel Movements 4 Physical Exam: CONSTITUTIONAL/GENERAL: This is a thin elderly male, on mechanical vent, alert TUBES/LINES/DRAINS: peripheral IVs to bilateral upper extremities. ET tube, OG tube. External catheter. SKIN: No jaundice, rashes, or lesions. Extensive ecchymosis along left hip, upper leg. Some areas of fading. No wounds seen anteriorly. Skin warm and dry. HEAD: Atraumatic. Normocephalic. EYES: Pupils 2mm/slight reaction to light. No scleral icterus. No injection or drainage. Fundi not examined. ENT: Nose without bleeding or purulent drainage. Throat without visible erythema, exudates, limited exam 2/2 ett, ogt CARDIOVASCULAR: Regular rate and rhythm without murmur, slightly tachycardic rate 110. No JVD. Peripheral pulses symmetric. RESPIRATORY/CHEST: Symmetric, unlabored respirations on mech vent. Rt clear, left with minimal air movement. GASTROINTESTINAL: Abdomen soft, no apparent tenderness. No palpable masses. Bowel sounds present.TF infusing to OGT GENITOURINARY: Without palpable bladder distension. External catheter in place. MUSCULOSKELETAL: Extremities without clubbing, cyanosis. Slight edema to hands. No joint tenderness or effusion noted. No mottling or clubbing. NEUROLOGICAL: No sedation. 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 Follows commands to move hands,to move hands, feet, very weakly, when family requests in Macedonian. PSYCHIATRIC: occasional restlessness, calmed by family, otherwise no apparent distress. Diagnostic Tests Laboratory: Laboratory Results - last 72 hr 12/20/17 12/20/17 12/21/17 17:44 20:12 05:08 WBC RBC Hgb Hct MCV MCH MCHC RDW Plt Count MPV PT INR Puncture Site Right radial Patient Temperature 98.6 O2 Saturation 93 ABG pH 7.30 L ABG pCO2 59 H* ABG pO2 83 ABG HCO3 28 H ABG O2 Content 12.5 ABG Base Excess 2.4 H ABG Methemoglobin 1.3 Krishna Test Present Hemoglobin 9.5 L Carboxyhemoglobin 1.3 O2 Delivery Device Ventilator Vent Setting Prvc18/450/1.0/+5 Inspired O2 50 Critical Value Yes Sodium Potassium Chloride Carbon Dioxide Anion Gap BUN Creatinine Estimated GFR POC Glucose 200 H 218 H Random Glucose Calcium Phosphorus Magnesium Total Bilirubin AST ALT Alkaline Phosphatase Total Protein Albumin Stl C.difficile Tox PCR St C. diff Tox Epid 027 Vancomycin Trough 12/21/17 12/21/17 12/21/17 06:08 06:10 06:10 WBC 9.2 RBC 3.09 L Hgb 9.4 L D Hct 28.6 L MCV 92.5 MCH 30.4 MCHC 32.8 RDW 14.4 Plt Count 112 L MPV 8.9 PT 11.9 H INR 1.2 Puncture Site Patient Temperature O2 Saturation ABG pH ABG pCO2 ABG pO2 ABG HCO3 ABG O2 Content ABG Base Excess ABG Methemoglobin Krishna Test Hemoglobin Carboxyhemoglobin O2 Delivery Device Vent Setting Inspired O2 Critical Value Sodium Potassium Chloride Carbon Dioxide Anion Gap BUN Creatinine Estimated GFR POC Glucose 323 H Random Glucose Calcium Phosphorus Magnesium Total Bilirubin AST ALT Alkaline Phosphatase Total Protein Albumin Stl C.difficile Tox PCR St C. diff Tox Epid 027 Vancomycin Trough 12/21/17 12/21/17 12/21/17 06:10 11:51 17:31 WBC RBC Hgb Hct MCV MCH MCHC RDW Plt Count MPV PT INR Puncture Site Patient Temperature O2 Saturation ABG pH ABG pCO2 ABG pO2 ABG HCO3 ABG O2 Content ABG Base Excess ABG Methemoglobin Krishna Test Hemoglobin Carboxyhemoglobin O2 Delivery Device Vent Setting Inspired O2 Critical Value Sodium 149 H Potassium 4.9 Chloride 110 H D Carbon Dioxide 29.9 Anion Gap 9 BUN 48 H Creatinine 1.09 Estimated GFR 65 L POC Glucose 244 H 227 H Random Glucose 304 H D Calcium 7.5 L Phosphorus 3.2 D Magnesium 2.4 Total Bilirubin 0.5 AST 35 ALT 29 Alkaline Phosphatase 124 H Total Protein 5.6 L D Albumin 2.4 L Stl C.difficile Tox PCR St C. diff Tox Epid 027 Vancomycin Trough 12/22/17 12/22/17 12/22/17 00:25 05:30 06:11 WBC RBC Hgb Hct MCV MCH MCHC RDW Plt Count MPV PT INR Puncture Site Right radial Patient Temperature 98.6 O2 Saturation 92 ABG pH 7.41 ABG pCO2 50 H ABG pO2 70 ABG HCO3 31 H ABG O2 Content 13.2 ABG Base Excess 6.2 H ABG Methemoglobin 1.3 Krishna Test Present Hemoglobin 10.2 L Carboxyhemoglobin 1.3 O2 Delivery Device Ventilator Vent Setting 18/450/it1.0/5peep Inspired O2 50 Critical Value No Sodium Potassium Chloride Carbon Dioxide Anion Gap BUN Creatinine Estimated GFR POC Glucose 281 H 317 H Random Glucose Calcium Phosphorus Magnesium Total Bilirubin AST ALT Alkaline Phosphatase Total Protein Albumin Stl C.difficile Tox PCR St C. diff Tox Epid 027 Vancomycin Trough 12/22/17 12/22/17 12/22/17 06:12 06:12 06:12 WBC 7.7 RBC 3.00 L Hgb 9.1 L Hct 27.9 L MCV 93.2 MCH 30.3 MCHC 32.5 RDW 14.8 Plt Count 111 L MPV 9.2 PT 11.7 H INR 1.2 Puncture Site Patient Temperature O2 Saturation ABG pH ABG pCO2 ABG pO2 ABG HCO3 ABG O2 Content ABG Base Excess ABG Methemoglobin Krishna Test Hemoglobin Carboxyhemoglobin O2 Delivery Device Vent Setting Inspired O2 Critical Value Sodium 150 H Potassium 5.1 Chloride 113 H Carbon Dioxide 31.6 Anion Gap 5 BUN 57 H Creatinine 1.11 Estimated GFR 64 L POC Glucose Random Glucose 307 H Calcium 8.1 L Phosphorus 2.4 L Magnesium 2.5 Total Bilirubin 0.4 AST 32 ALT 30 Alkaline Phosphatase 115 Total Protein 5.5 L Albumin 2.4 L Stl C.difficile Tox PCR St C. diff Tox Epid 027 Vancomycin Trough 12/22/17 12/22/17 12/22/17 11:38 17:38 22:59 WBC RBC Hgb Hct MCV MCH MCHC RDW Plt Count MPV PT INR Puncture Site Patient Temperature O2 Saturation ABG pH ABG pCO2 ABG pO2 ABG HCO3 ABG O2 Content ABG Base Excess ABG Methemoglobin Krishna Test Hemoglobin Carboxyhemoglobin O2 Delivery Device Vent Setting Inspired O2 Critical Value Sodium Potassium Chloride Carbon Dioxide Anion Gap BUN Creatinine Estimated GFR POC Glucose 237 H 242 H 305 H Random Glucose Calcium Phosphorus Magnesium Total Bilirubin AST ALT Alkaline Phosphatase Total Protein Albumin Stl C.difficile Tox PCR St C. diff Tox Epid 027 Vancomycin Trough 12/22/17 12/23/17 12/23/17 23:00 01:00 04:28 WBC 8.0 RBC 3.10 L Hgb 9.4 L Hct 28.6 L MCV 92.2 MCH 30.1 MCHC 32.7 RDW 14.8 Plt Count 110 L MPV 8.6 PT INR Puncture Site Patient Temperature O2 Saturation ABG pH ABG pCO2 ABG pO2 ABG HCO3 ABG O2 Content ABG Base Excess ABG Methemoglobin Krishna Test Hemoglobin Carboxyhemoglobin O2 Delivery Device Vent Setting Inspired O2 Critical Value Sodium Potassium Chloride Carbon Dioxide Anion Gap BUN Creatinine Estimated GFR POC Glucose Random Glucose Calcium Phosphorus Magnesium Total Bilirubin AST ALT Alkaline Phosphatase Total Protein Albumin Stl C.difficile Tox PCR Negative St C. diff Tox Epid 027 Negative Vancomycin Trough 13.4 H 12/23/17 12/23/17 12/23/17 04:28 04:28 05:50 WBC RBC Hgb Hct MCV MCH MCHC RDW Plt Count MPV PT 12.1 H INR 1.2 Puncture Site Right radial Patient Temperature 98.6 O2 Saturation 92 ABG pH 7.42 ABG pCO2 53 H* ABG pO2 73 ABG HCO3 34 H ABG O2 Content 13.7 ABG Base Excess 9.3 H ABG Methemoglobin 1.3 Krishna Test Present Hemoglobin 10.5 L Carboxyhemoglobin 1.4 O2 Delivery Device Ventilator Vent Setting 18/450/it1.0/5peep Inspired O2 45 Critical Value Yes Sodium 153 H Potassium 4.8 Chloride 111 H Carbon Dioxide 36.3 H Anion Gap 6 BUN 53 H Creatinine 1.09 Estimated GFR 65 L POC Glucose Random Glucose 297 H Calcium 7.7 L Phosphorus 2.4 L Magnesium 2.4 Total Bilirubin 0.5 AST 35 ALT 39 Alkaline Phosphatase 122 H Total Protein 5.5 L Albumin 2.3 L Stl C.difficile Tox PCR St C. diff Tox Epid 027 Vancomycin Trough 12/23/17 11:42 WBC RBC Hgb Hct MCV MCH MCHC RDW Plt Count MPV PT INR Puncture Site Patient Temperature O2 Saturation ABG pH ABG pCO2 ABG pO2 ABG HCO3 ABG O2 Content ABG Base Excess ABG Methemoglobin Krishna Test Hemoglobin Carboxyhemoglobin O2 Delivery Device Vent Setting Inspired O2 Critical Value Sodium Potassium Chloride Carbon Dioxide Anion Gap BUN Creatinine Estimated GFR POC Glucose 284 H Random Glucose Calcium Phosphorus Magnesium Total Bilirubin AST ALT Alkaline Phosphatase Total Protein Albumin Stl C.difficile Tox PCR St C. diff Tox Epid 027 Vancomycin Trough Result Diagrams: 12/23/17 04:28 12/23/17 04:28 Microbiology: Microbiology 12/19/17 21:20 Aerobic Blood Culture - Preliminary Blood - Peripheral No growth in 4 days Anaerobic Blood Culture - Preliminary No growth in 4 days 12/19/17 21:30 Aerobic Blood Culture - Preliminary Blood - Peripheral No growth in 4 days Anaerobic Blood Culture - Preliminary No growth in 4 days 12/20/17 14:10 Gram Stain - Final Sputum - Endotracheal Sputum Culture - Final Heavy growth normal respiratory vaishnavi 12/20/17 11:50 Urine Culture - Final Clean Catch Urine No growth in 48 hours 12/20/17 11:50 Legionella Antigen - Final Urine - Catheterized Urine Presumptive negative for Legionella pneumophila serogroup 1 antigen in urine, suggesting no recent or recurrent infection. Infection due to Legionella cannot be ruled out since other serogroups and species may cause disease, antigen may not be present in urine in early infection, and the level of antigen present in the urine may be below the detection limit of the test. 12/20/17 11:50 Streptococcus pneumoniae Antigen (M - Final Urine - Catheterized Urine Presumptive negative for streptococcus pneumoniae antigen, suggesting no current or recent infection. Infection due to Streptococcus pneumoniae cannot be ruled out since the antigen present in the sample may be below the detection limit of the test. Imaging: Impressions Chest X-Ray 12/23/17 00:00 CONCLUSION: Endotracheal tube tip at the [place]. No other significant interval change. Persistent left pleural effusion and bilateral pulmonary parenchymal opacity. Assessment and Plan - Disease Oriented Problem List (1) COPD (chronic obstructive pulmonary disease) (2) CHF (congestive heart failure) (3) Respiratory distress (4) Sepsis (5) HCAP (healthcare-associated pneumonia) (6) NAHED (acute kidney injury) (7) Pulmonary hypertension (8) S/P lobectomy of lung Pertinent Non-Medical Issues: Psychosocial: Retired. Lived in [place] most of his life-- originally from [place], then moved to [place], then to [place]. Worked as a [employer]. Supported by , 4 daughters, other extended family. Spiritual:rastafarian, sister providing spiritual care Legal:Patient unable to participate due to clinical condition. There is some question of underlying cognitive deficits. His would be appropriate legal decision maker. She is making decisions supported by the rest of the family, daughters, sister are very involved in his care in decision-making Ethical issues impacting care:no ethical issues identified Important Contacts: Sunshine Davenport [phone] Prognosis: This 82-year-old patient is currently hospitalized due to severe sepsis, with respiratory failure. He has multiple chronic comorbidities. 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 He also has underlying COPD, pulmonary fibrosis, prior lobectomy. Overall poor prognosis for survival from current acute issues. Code Status: Full Code Plan: * Legal decision maker: Patient unable to participate due to clinical condition. There is some question of underlying cognitive deficits. His would be appropriate legal decision maker. She is making decisions supported by the rest of the family, daughters, sister are very involved in his care in decision-making * Goals: aggressive goals; patient would want to continue ongoing aggressive treatments to improve his condition, including full code. We have reviewed the potential to require tracheostomy for long-term ventilation today, family feels confident patient will be able to wean off of mechanical vent. * CODE STATUS: Full code * SYMPTOMS: --Dyspnea-admitted for shortness of breath. Desaturation reported at home. Urgently intubated upon arrival to ICU. CXR indicative right lower lung probable pneumonia. On broad-spectrum antibiotics. Cultures pending. Currently breathing comfortably on mechanical vent. Family wishes to minimize sedation as much as possible though they also want him to be comfortable if possible. tolerating CPAP 5-6 hrs. --Pain-family endorses a day to day at home patient did not endorse any pain. He is status post hip repair last month. Has been essentially bedbound since that time, potential sources would include recent hip surgery, as well as prolonged bedbound status and recent invasive procedures. Had been on Versed 2 mg, fentanyl 50 mics an hour, with occasional episodes of restlessness. This has been off since yesterday, per family request. Appears to be soothed by family . will continue to monitor. Patient family verbalizes wishing to minimize sedation as much as possible. Family endorses they do not believe pt is painful or anxious today. * Palliative care will continue to follow during hospital course as condition evolves, to assist patient/decision-maker with understanding of medical conditions, weighing benefits/burdens of treatment options, for clarification of goals of treatment. Additionally will assist with any symptoms of palliative concern Attestation Attestation: To help prompt me to consider important information that might be impacting today's encounter and assessment, information from prior notes written by myself or my colleagues may have been "brought forward" into today's note. My signature on this note, however, is an attestation that I personally performed the exam, history, and/or decision-making noted today, and, unless otherwise indicated, the interactions with patient, family, and staff as well as the review of records all occurred today. I also attest that the listed assessment and stated plan reflect my best clinical judgment today based on the combination of historical information, prior notes, and today's exam/ interactions. When time spent is documented, it refers only to time spent today by the signer, or if indicated, combined time spent today by collaborating physician/nurse practitioner.
[2017-12-23] MEDS ORDERED: Labetalol HCl Inj 100 MG/20 ML Vial IV.PUSH PRN (14:19)
[2017-12-23] MEDS ORDERED: hydrALAZINE HCl Inj 20 MG/ML Vial IV.PUSH PRN (14:21)
[2017-12-23] MEDS ORDERED: Morphine Sulfate Inj 2 MG/ML Vial IV.PUSH PRN (15:19)
[2017-12-23] MEDS: Carboxymethylcellulose 0.5% Opth Drops 15 ML Bottle EACH EYE SCH (20:36)
[2017-12-23] MEDS ORDERED: Artificial Tears Opth Oint 3.5 GM Tube EACH EYE SCH (21:00)
[2017-12-23] MEDS ORDERED: Carboxymethylcellulose 0.5% Opth Drops 15 ML Bottle EACH EYE SCH (21:00)
[2017-12-23] MEDS: Insulin Detemir Inj 1,000 UNIT/10 ML Vial SQ SCH (21:49)
[2017-12-24] MEDS: Insulin NovoLOG Aspart Correctional Sugar Inj SQ SCH ×5 (00:24→23:58)
[2017-12-24] MEDS: Insulin Detemir Inj 1,000 UNIT/10 ML Vial SQ SCH ×3 (00:26→20:02)
[2017-12-24] MEDS: Oral Hygiene Kit OROPHARYNG SCH ×5 (00:27→23:58)
[2017-12-24] MEDS: Vancomycin Inj 1,250 MG in Sodium Chlor 0.9% Inj 250 ML IV.SIG SCH ×2 (00:42→22:25)
[2017-12-24] MEDS: Azithromycin Inj 500 MG in Sodium Chlor 0.9% Inj 250 ML IV.SIG SCH (02:51)
[2017-12-24] MEDS: Chlorhexidine Gluconate 2% 1 Pack (2 Cloths) TOPICAL SCH (03:17)
[2017-12-24] MEDS: Piperacil/Tazo 4.5 GM Premix 4.5 GM/100 ML BAG IV.SIG SCH ×4 (03:17→19:27)
--- NOTE | 2017-12-24 05:02 | XR ---
EXAM DATE: 12/24/2017 6:00 AM EDT AGE/SEX: 82 years / Male INDICATIONS: Shortness of breath, possible pulmonary disease. CLINICAL DATA: This is the patient's subsequent encounter. Patient reports that signs and symptoms h ave been present for 1 week and indicates a pain score of Nonresponsive. MEDICAL/SURGICAL HISTORY: Chronic obstructive pulmonary disease. Diabetes. Lobectomy. COMPARISON: [facility] [place], CHEST 1V SINGLE AP, 12/23/2017. . FINDINGS: Single AP view the chest. Endotracheal tube and nasogastric tube remain in place. Persistent left ple ural effusion. Mild hazy bilateral pulmonary parenchymal opacity unchanged. Cardiomediastinal silhoue tte unchanged. CONCLUSION: No significant interval change. Left-sided pleural effusion and mild bilateral parenchymal opacity ag ain seen. Electronically signed by: Maurilio Meredith MD 12/24/2017 5:00 AM EDT
[2017-12-24 06:19] LABS: Hematocrit 29.3 % (39.0-51.0); Hemoglobin 9.5 gm/dL (13.0-17.0); Mean Corpuscular HGB Conc 32.5 % (32.0-36.0); Mean Corpuscular Hemoglobin 30.2 pg (27.0-34.0); Mean Corpuscular Volume 92.8 fL (80.0-100.0); Mean Platelet Volume 9.5 fL (7.0-11.0); Platelet Count 107 th/mm3 (150-450); Red Blood Count 3.16 mil/mm3 (4.50-5.90); Red Cell Distribution Width 14.6 % (11.6-17.2); White Blood Count 9.3 th/mm3 (4.0-11.0)
[2017-12-24 06:43] LABS: Albumin 2.3 g/dL (3.4-5.0); Anion Gap 5 meq/L (5-15); Aspartate Aminotransferase 45 U/L (15-37); Blood Urea Nitrogen 56 mg/dL (7-18); Calcium 7.9 mg/dL (8.5-10.1); Carbon Dioxide 36.5 meq/L (21.0-32.0); Chloride 109 meq/L (98-107); Glomerular Filtration Rate 64 mL/min (>89); Glucose,Random 234 mg/dL (74-106); Magnesium 2.3 mg/dL (1.5-2.5); Potassium 4.5 meq/L (3.5-5.1); Sodium 150 meq/L (136-145)
[2017-12-24 06:47] LABS: Alanine Aminotransferase 46 U/L (12-78); Alkaline Phosphatase 115 U/L (45-117); Phosphorus 3.2 mg/dL (2.5-4.9); Total Protein 5.4 g/dL (6.4-8.2)
[2017-12-24 06:52] LABS: INR 1.2 Ratio; Prothrombin Time 12.2 sec (9.8-11.6)
[2017-12-24] MEDS: MethylPREDNISolone Sod Succinate Inj 40 MG/ML Vial IV.PUSH SCH ×3 (06:55→21:08)
[2017-12-24] MEDS: Senna/Docusate Sodium 8.6/50 MG Tablet PO SCH ×2 (08:05→20:02)
[2017-12-24] MEDS: Carboxymethylcellulose 0.5% Opth Drops 15 ML Bottle EACH EYE SCH ×2 (08:05→20:04)
[2017-12-24] MEDS: Furosemide 40 MG Tablet PO SCH (08:25)
[2017-12-24] MEDS: Chlorhexidine 0.12% Oral Kit 15 ML UDC OROPHARYNG SCH ×2 (08:25→19:28)
[2017-12-24] MEDS: Enoxaparin Inj 40 MG/0.4 ML Syringe SQ SCH (08:26)
--- NOTE | 2017-12-24 09:48 | P.PNCC ---
Subjective Subjective Remarks/Hospital Course: 82-year-old male with past medical history of COPD and CHF presents for an evaluation of shortness of breath and hypoxemia worsening over past few days. The nebulizer treatments helped initially however today there were not helpful. EMS reports on scene the O2 sat was in the 80s. He received high flow oxygen and nebulized albuterol in route here. His blood pressure initially in the emergency department was 200/100 however trended down to about 160/90. BiPAP was started in the emergency department with improvement in his O2 sat that has trended towards the high 90s with 100% FiO2 on BiPAP. Shortly after transfer to ICU the patient continues to to be more hypoxemic and restless requiring endotracheal intubation and mechanical ventilation. 12/20: intubated and sedated. still hypercarbic with [id number] respiratory acidosis. family unhappy that patient was intubated: they insisted last night on being a Full Code, but apparently the daughter required that she be notified of exactly what SpO2 the patient was at, and it had to reach a certain low level before she would be ok with intubation. Per overnight records , patient presented with severe respiratory distress, and family reports that EMS stated patient "wouldn't make it all the way to [facility]" due to his pulmonary instability. This morning, hypoxia is somewhat improved. remains on broad spectrum antibiotics. I explained to family that this is likely a new pneumonia causing respiratory failure. I also explained that after recent hip fracture and recent prolonged hospitalization, his baseline end-stage lung disease and NYHA Class IV symptoms are likely to worsen, and this may be worsening of his overall end-stage disease processes. Family continues to state that our facility caused his lung failure during the prior hospitalization. They are also concerned about his poor peripheral perfusion and oliguria, which concerns me also: I explained that his heart failure could not tolerate significant amount of iv fluids, and we have already given him 1500mL over the last 12 hours, but they have insisted on additional iv fluids. I explained he had severe sepsis and the mortality associated with this. Daughter continues to remind me that her father "is coming home with her and getting better" as she has stated multiple times in the past. 12/21: no improvements. remains intubated. clinically becoming volume overloaded - will be forced to start diuresis. 12/22: mental status slightly improved. still failing weaning attempts. 12/23: Afebrile. Currently on PSV trial 15/7 at 45%. Discussed with and daughter at bedside. Chest x-ray revealed ET tube at [place]. Retracted 1 cm. Tolerating tube feeds with family requested 40 cc an hour. Subjective: 12/24: Afebrile. Currently CPAP trial FiO2 at 45%. Tolerating tube feeds if family requested 40 cc an hour. Receiving morphine 1-2 mg every 4 hours as needed pain. Objective Vital Signs / I&O: Vital Signs 12/23/17 10:00 12/23/17 11:11 12/23/17 12:00 Temperature 99.0 F Pulse Rate 99 H 96 H 100 H Respiratory Rate 21 35 H Blood Pressure 165/81 H Pulse Oximetry 96 96 12/23/17 13:04 12/23/17 14:00 12/23/17 15:00 Temperature Pulse Rate 107 H 104 H Respiratory Rate 24 24 Blood Pressure Pulse Oximetry 97 12/23/17 15:19 12/23/17 16:00 12/23/17 18:00 Temperature 98.1 F Pulse Rate 94 H 92 H Respiratory Rate 20 18 Blood Pressure 116/56 L Pulse Oximetry 98 99 12/23/17 19:19 12/23/17 19:20 12/23/17 20:00 Temperature 98.5 F Pulse Rate 93 H 94 H Respiratory Rate 20 19 18 Blood Pressure 142/62 H Pulse Oximetry 97 98 12/23/17 22:00 12/23/17 22:25 12/23/17 23:11 Temperature Pulse Rate 102 H 96 H Respiratory Rate 18 22 Blood Pressure Pulse Oximetry 98 12/24/17 00:00 12/24/17 02:00 12/24/17 03:40 Temperature 98.7 F Pulse Rate 94 H 101 H 90 Respiratory Rate 18 21 18 Blood Pressure 124/57 L Pulse Oximetry 100 97 12/24/17 04:00 12/24/17 05:10 12/24/17 06:00 Temperature 99.4 F Pulse Rate 97 H 91 H Respiratory Rate 24 18 Blood Pressure 120/55 L Pulse Oximetry 98 97 12/24/17 08:00 12/24/17 08:11 Temperature 98.2 F Pulse Rate 98 H 92 H Respiratory Rate 22 25 H Blood Pressure 127/58 L Pulse Oximetry 96 96 Intake & Output 12/23/17 12/24/17 12/24/17 18:59 06:59 18:59 Intake Total 984 / 984 1429 / 1429 Output Total 1350 / 1350 500 / 500 Balance -366 / -366 929 / 929 Weight 72 kg Intake: IV 450 / 450 713 / 713 Azithromycin Inj 500 MG In NS 250 / 250 Inj 250 ML @ 250 mls/hr IV.SIG Q24H NOAH Rx#:[id number] Zosyn 4.5 GM Premix 4.5 gm In 200 / 200 200 / 200 100 ml @ 200 mls/hr IV.SIG Q6H NOAH Rx#:[id number] Vancomycin Inj 1,250 MG In NS 263 / 263 Inj 250 ML @ 250 mls/hr IV.SIG Q24H NOAH Rx#:[id number] Tube Feeding 534 / 534 416 / 416 Water Bolus Amount 300 / 300 Output: Urine Amount (Catheter) 1350 / 1350 500 / 500 Condom 1350 / 1350 500 / 500 Other: Date of Last Bowel Movement 12/23/17 # Bowel Movements 5 Result Diagrams: 12/24/17 05:11 12/24/17 05:11 Other Results: Microbiology 12/19/17 21:20 Blood - Peripheral Aerobic Blood Culture - Preliminary No growth in 4 days 12/19/17 21:20 Blood - Peripheral Anaerobic Blood Culture - Preliminary No growth in 4 days 12/19/17 21:30 Blood - Peripheral Aerobic Blood Culture - Preliminary No growth in 4 days 12/19/17 21:30 Blood - Peripheral Anaerobic Blood Culture - Preliminary No growth in 4 days 12/20/17 14:10 Sputum - Endotracheal Gram Stain - Final 12/20/17 14:10 Sputum - Endotracheal Sputum Culture - Final Heavy growth normal respiratory vaishnavi 12/20/17 11:50 Clean Catch Urine Urine Culture - Final No growth in 48 hours 12/20/17 11:50 Urine - Catheterized Urine Legionella Antigen - Final Presumptive negative for Legionella pneumophila serogroup 1 antigen in urine, suggesting no recent or recurrent infection. Infection due to Legionella cannot be ruled out since other serogroups and species may cause disease, antigen may not be present in urine in early infection, and the level of antigen present in the urine may be below the detection limit of the test. 12/20/17 11:50 Urine - Catheterized Urine Streptococcus pneumoniae Antigen ( M - Final Presumptive negative for streptococcus pneumoniae antigen, suggesting no current or recent infection. Infection due to Streptococcus pneumoniae cannot be ruled out since the antigen present in the sample may be below the detection limit of the test. Imaging: Chest X-Ray 12/19/17 21:26 CONCLUSION: Worsening airspace process right lower lung most likely pneumonia with completely opacified left hemithorax probably due to a pleural effusion and/or left lung consolidation/collapse. Underlying mass is difficult to exclude. Chest X-Ray 12/20/17 04:19 CONCLUSION: 1. Worsening right upper lobe consolidation. 2. Slightly improved right base consolidation. 3. Volume loss, consolidation and pleural effusion on the left slightly improved. Chest X-Ray 12/21/17 05:00 CONCLUSION: No significant interval change. Persistent left-sided pleural effusion and pulmonary parenchymal opacity along with hazy right lung opacity. Chest X-Ray 12/23/17 00:00 CONCLUSION: Endotracheal tube tip at the [place]. No other significant interval change. Persistent left pleural effusion and bilateral pulmonary parenchymal opacity. Chest X-Ray 12/24/17 06:00 CONCLUSION: No significant interval change. Left-sided pleural effusion and mild bilateral parenchymal opacity again seen. Objective Remarks: GENERAL: 82-year-old male currently orotracheally intubated and resting in bed HEENT: Normocephalic. Atraumatic. Pupils equal, round, reactive, conjugate. Mucous membranes are moist NECK: Trachea is midline. negative jvd. CHEST: Fine rales in the right lower lobe. Rhonchi in the right upper. Prolonged expiratory time. No wheezing. CARDIOVASCULAR: Normal rate, regular rhythm. S1, S2. No S4 ABDOMEN: Soft, nontender, nondistended. No guarding. MUSCULOSKELETAL: Pulses 2+. No peripheral edema. No mottling NEUROLOGICAL: Arousable and follows commands. Moves all 4 extremities spontaneously. 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 Normal left ventricular size. Wall thickness is normal. No regional wall motion abnormalities are present. Diffuse calcification of the aortic valve but no significant stenosis. There is mild to moderate tricuspid valve regurgitation. The estimated pulmonary arterial pressure is 76.9 mmHg with severe pulmonary hypertension. Continue furosemide 40 mg daily/home medication As needed labetalol and Nitropaste for hypertension Renal/: Acute kidney injury History of nephrolithiasis -- Strict I/Os Straight cath every 6 hours. We will avoid Bethea if possible given risk of catheter associated UTI Daily BMP FEN/GI: Severe acute protein calorie malnutrition Hypernatremia Hypophosphatemia OG tube feeds at 40 cc an hour Glucerna 1.5 Lansoprazole for GI prophylaxis Docusate sodium/senna 1 tablet twice daily for bowel regimen start free water replacement with free water 100 cc every 4 hours ICU electrolyte protocol Daily BMP, magnesium, phosphorus Heme/ID: Healthcare associated pneumonia Severe sepsis- present on admission Normocytic anemia Thrombocytopenia Vancomycin with pharmacy consultation, piperacillin/tazobactam and azithromycin since 12/19. Likely de-escalate Sputum culture 12/20- Blood cultures 12/19 no growth Urine UA with reflex urine culture 12/20- Negative Legionella and pneumococcal urinary antigens Monitor CBC daily and follow trends. No indication for transfusion of blood products at this time Endocrine: Hyperglycemia of critical illness -- SSI to maintain euglycemia with aspart insulin every 6 hours high. Add insulin detemir 5 twice daily MSK:: History of left IT nailing 11/14 Vitamin D deficiency PT evaluate and treat Prophylaxis: GI Prophylaxis Lansoprazole DVT Prophylaxis -- SCDs Enoxaparin Lines: Peripheral IVs Level 2 follow-up
--- NOTE | 2017-12-24 14:50 | P.PNPAL ---
Reason for Visit Reason for visit: a. To assist with evaluation and management of symptoms including: dyspnea, pain b. To assist medical decision maker(s) with: better understanding of current medical conditions; weighing benefits/burdens of medical treatment options; making medical treatment decisions. Subjective Subjective/Interval History: Patient seen today to follow up on comfort/goals. Pt stable overnight. Remains on mech vent, tolerating CPAP today since 8am. Has been off sedation per family request . +having loose BMs- C-diff negative. Tolerating TF. H&H stable 9.5/29.3, WBC 9.3. Renal function stable. BC no growth to date. CXR unchanged, mild bilateral parenchymal opacity. + few seconds of possible ventricular arrhythmia earlier; not clear if this is artifact. Troponin pending . No changes in VS per nursing. Met w , 2 dtrs at bedside- review most recent diagnostics, current tx in place, conditions being tx. Review stable- no significant worsening, no significant improvements. Explore he remains at risk for complications/changes/ setbacks. Review possible few beats of Vtach earlier artifact vs. true dysrhythmia, further explore that even if WAS artifact pt does remain at risk for cardiac complications, including dysrhythmias. Daughter feels that he is doing well because he has not gotten any worse. she also expresses that they feel many of his medical/ health issues were caused during his last hospitalization, that he was "fine " before that. Gently explore his current findings and my concern that his lung disease process may not improve. Explore that he is now more debilitated, and may be more at risk for setbacks, though we hope that he wont have additional setbacks. Dtr requests positive updates and positive words only. Gently explore that our medical updates, labs, etc are not positive or negative, but important data to help them with informed decision making. Dtr feels they are being rushed to make trach decisions, and that the medical team "is not giving him a chance", advise that he is not at the time of trach yet, though if he cont to not show signs of tolerating extubation/weaning next week then that may become a consideration. They indicate they will discuss that after day 14 if it becomes necessary, but they do not feel it will. They remain hopeful he will recover and go home with them. Supportive listening provided, all questions answered to the best my ability. They have palliative contact information. They voiced appreciation for ongoing updates. D/w critical care, RN. Additional history per recent admission 11/13/17: Patient with known history CHF, diabetes, COPD, pulmonary fibrosis and asbestosis, presented to the ED after sustaining a fall in his home. He was lightheaded. Baseline 3-4 L nasal cannula requiring significant assistance with ADLs. Also with known history of LEFT thoracotomy and lobectomy/resection many years ago. Imaging finding of intertrochanteric fracture of proximal left hip. Also findings of osteopenia. Pulmonology evaluated patient and noted that he was cleared for surgery though may require BiPAP after. Suggested limited anesthesia secondary to moderately failure and/or pneumonia. Orthopedics consulted reviewed options family requested to proceed with operative management. During that admission noted during attending discussion with family daughter reports baseline mental status with some component of a dementia. Patient's primary language also reported to be a telemetry and though they requested no interpretation service be used during encounters because this would make him upset. During that hospital course patient did require ICU on BiPAP. Patient with some agitation. Anemia requiring transfusion postoperatively. Ongoing respiratory complication and concern for respiratory decompensation that could require mechanical ventilation and could result in difficulty weaning. Critical care notes discussion with family requested full CODE STATUS and continued aggressive management. Outpatient CT per Dr. Guerrier demonstrated pulmonary fibrosis and bronchiectasis. Patient did have a VQ scan during that admission with ventilation abnormally and perfume and of normal least left lower lobe pattern not typical of PE likely related to lobectomy. Avoiding CTA due to worsening renal function, family did not wish to assume risk. During that hospital course it is noted family requested transfer to [facility], critical care attempted to initiate that process. [facility] declined admission. Patient was also evaluated for LTAC, insurance apparently denied LTAC. Family appealed this and patient was later accepted by [facility]. He was discharged to [facility] 11/20/17 Objective Vital Signs: Vital Signs 12/23/17 15:00 12/23/17 15:19 12/23/17 16:00 Temperature 98.1 F Pulse Rate 104 H 94 H Respiratory Rate 24 20 18 Blood Pressure 116/56 L Pulse Oximetry 98 99 12/23/17 18:00 12/23/17 19:19 12/23/17 19:20 Temperature Pulse Rate 92 H 93 H Respiratory Rate 20 19 Blood Pressure Pulse Oximetry 97 12/23/17 20:00 12/23/17 22:00 12/23/17 22:25 Temperature 98.5 F Pulse Rate 94 H 102 H Respiratory Rate 18 18 Blood Pressure 142/62 H Pulse Oximetry 98 98 12/23/17 23:11 12/24/17 00:00 12/24/17 02:00 Temperature 98.7 F Pulse Rate 96 H 94 H 101 H Respiratory Rate 22 18 21 Blood Pressure 124/57 L Pulse Oximetry 100 97 12/24/17 03:40 12/24/17 04:00 12/24/17 05:10 Temperature 99.4 F Pulse Rate 90 97 H Respiratory Rate 18 24 18 Blood Pressure 120/55 L Pulse Oximetry 98 97 12/24/17 06:00 12/24/17 08:00 12/24/17 08:11 Temperature 98.2 F Pulse Rate 91 H 98 H 92 H Respiratory Rate 22 25 H Blood Pressure 127/58 L Pulse Oximetry 96 96 12/24/17 10:00 12/24/17 12:00 12/24/17 12:10 Temperature 98 F Pulse Rate 88 86 88 Respiratory Rate 21 21 Blood Pressure 162/76 H Pulse Oximetry 94 L 95 12/24/17 14:00 Temperature Pulse Rate 91 H Respiratory Rate Blood Pressure Pulse Oximetry Intake & Output 12/23/17 12/24/17 12/24/17 18:59 06:59 18:59 Intake Total 984 / 984 1429 / 1429 100 / 100 Output Total 1350 / 1350 500 / 500 Balance -366 / -366 929 / 929 100 / 100 Weight 72 kg Intake: IV 450 / 450 713 / 713 100 / 100 Azithromycin Inj 500 MG In NS 250 / 250 Inj 250 ML @ 250 mls/hr IV.SIG Q24H NOAH Rx#:[id number] Zosyn 4.5 GM Premix 4.5 gm In 200 / 200 200 / 200 100 / 100 100 ml @ 200 mls/hr IV.SIG Q6H NOAH Rx#:[id number] Vancomycin Inj 1,250 MG In NS 263 / 263 Inj 250 ML @ 250 mls/hr IV.SIG Q24H NOAH Rx#:[id number] Tube Feeding 534 / 534 416 / 416 Water Bolus Amount 300 / 300 Output: Urine Amount (Catheter) 1350 / 1350 500 / 500 Condom 1350 / 1350 500 / 500 Other: Date of Last Bowel Movement 12/23/17 # Bowel Movements 5 Physical Exam: CONSTITUTIONAL/GENERAL: This is a thin elderly male, on mechanical vent, alert TUBES/LINES/DRAINS: peripheral IVs to bilateral upper extremities. ET tube, OG tube. External catheter. SKIN: No jaundice, rashes, or lesions. Extensive ecchymosis along left hip, upper leg. Some areas of fading. No wounds seen anteriorly. Skin warm and dry. HEAD: Atraumatic. Normocephalic. EYES: Pupils 3mm/slight reaction to light. No scleral icterus. No injection or drainage. Fundi not examined. ENT: Nose without bleeding or purulent drainage. Throat without visible erythema, exudates, limited exam 2/2 ett, ogt CARDIOVASCULAR: Regular rate and rhythm without murmur, slightly tachycardic rate 110. No JVD. Peripheral pulses symmetric. RESPIRATORY/CHEST: Symmetric, unlabored respirations on mech vent. Rt clear, left with minimal air movement. GASTROINTESTINAL: Abdomen soft, no apparent tenderness. No palpable masses. Bowel sounds present.TF infusing to OGT GENITOURINARY: Without palpable bladder distension. External catheter in place. MUSCULOSKELETAL: Extremities without clubbing, cyanosis. Slight edema to hands. No joint tenderness or effusion noted. No mottling or clubbing. NEUROLOGICAL: No sedation. 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 Follows commands to move hands,to move hands, feet, very weakly, when family requests in Irish. PSYCHIATRIC: occasional restlessness, calmed by family, otherwise no apparent distress. Diagnostic Tests Laboratory: Laboratory Results - last 72 hr 12/21/17 12/22/17 12/22/17 17:31 00:25 05:30 WBC RBC Hgb Hct MCV MCH MCHC RDW Plt Count MPV PT INR Puncture Site Right radial Patient Temperature 98.6 O2 Saturation 92 ABG pH 7.41 ABG pCO2 50 H ABG pO2 70 ABG HCO3 31 H ABG O2 Content 13.2 ABG Base Excess 6.2 H ABG Methemoglobin 1.3 Krishna Test Present Hemoglobin 10.2 L Carboxyhemoglobin 1.3 O2 Delivery Device Ventilator Vent Setting 18/450/it1.0/5peep Inspired O2 50 Critical Value No Sodium Potassium Chloride Carbon Dioxide Anion Gap BUN Creatinine Estimated GFR POC Glucose 227 H 281 H Random Glucose Calcium Phosphorus Magnesium Total Bilirubin AST ALT Alkaline Phosphatase Troponin I Total Protein Albumin Stl C.difficile Tox PCR St C. diff Tox Epid 027 Vancomycin Trough 12/22/17 12/22/17 12/22/17 06:11 06:12 06:12 WBC 7.7 RBC 3.00 L Hgb 9.1 L Hct 27.9 L MCV 93.2 MCH 30.3 MCHC 32.5 RDW 14.8 Plt Count 111 L MPV 9.2 PT 11.7 H INR 1.2 Puncture Site Patient Temperature O2 Saturation ABG pH ABG pCO2 ABG pO2 ABG HCO3 ABG O2 Content ABG Base Excess ABG Methemoglobin Krishna Test Hemoglobin Carboxyhemoglobin O2 Delivery Device Vent Setting Inspired O2 Critical Value Sodium Potassium Chloride Carbon Dioxide Anion Gap BUN Creatinine Estimated GFR POC Glucose 317 H Random Glucose Calcium Phosphorus Magnesium Total Bilirubin AST ALT Alkaline Phosphatase Troponin I Total Protein Albumin Stl C.difficile Tox PCR St C. diff Tox Epid 027 Vancomycin Trough 12/22/17 12/22/17 12/22/17 06:12 11:38 17:38 WBC RBC Hgb Hct MCV MCH MCHC RDW Plt Count MPV PT INR Puncture Site Patient Temperature O2 Saturation ABG pH ABG pCO2 ABG pO2 ABG HCO3 ABG O2 Content ABG Base Excess ABG Methemoglobin Krishna Test Hemoglobin Carboxyhemoglobin O2 Delivery Device Vent Setting Inspired O2 Critical Value Sodium 150 H Potassium 5.1 Chloride 113 H Carbon Dioxide 31.6 Anion Gap 5 BUN 57 H Creatinine 1.11 Estimated GFR 64 L POC Glucose 237 H 242 H Random Glucose 307 H Calcium 8.1 L Phosphorus 2.4 L Magnesium 2.5 Total Bilirubin 0.4 AST 32 ALT 30 Alkaline Phosphatase 115 Troponin I Total Protein 5.5 L Albumin 2.4 L Stl C.difficile Tox PCR St C. diff Tox Epid 027 Vancomycin Trough 12/22/17 12/22/17 12/23/17 22:59 23:00 01:00 WBC RBC Hgb Hct MCV MCH MCHC RDW Plt Count MPV PT INR Puncture Site Patient Temperature O2 Saturation ABG pH ABG pCO2 ABG pO2 ABG HCO3 ABG O2 Content ABG Base Excess ABG Methemoglobin Krishna Test Hemoglobin Carboxyhemoglobin O2 Delivery Device Vent Setting Inspired O2 Critical Value Sodium Potassium Chloride Carbon Dioxide Anion Gap BUN Creatinine Estimated GFR POC Glucose 305 H Random Glucose Calcium Phosphorus Magnesium Total Bilirubin AST ALT Alkaline Phosphatase Troponin I Total Protein Albumin Stl C.difficile Tox PCR Negative St C. diff Tox Epid 027 Negative Vancomycin Trough 13.4 H 12/23/17 12/23/17 12/23/17 04:28 04:28 04:28 WBC 8.0 RBC 3.10 L Hgb 9.4 L Hct 28.6 L MCV 92.2 MCH 30.1 MCHC 32.7 RDW 14.8 Plt Count 110 L MPV 8.6 PT 12.1 H INR 1.2 Puncture Site Patient Temperature O2 Saturation ABG pH ABG pCO2 ABG pO2 ABG HCO3 ABG O2 Content ABG Base Excess ABG Methemoglobin Krishna Test Hemoglobin Carboxyhemoglobin O2 Delivery Device Vent Setting Inspired O2 Critical Value Sodium 153 H Potassium 4.8 Chloride 111 H Carbon Dioxide 36.3 H Anion Gap 6 BUN 53 H Creatinine 1.09 Estimated GFR 65 L POC Glucose Random Glucose 297 H Calcium 7.7 L Phosphorus 2.4 L Magnesium 2.4 Total Bilirubin 0.5 AST 35 ALT 39 Alkaline Phosphatase 122 H Troponin I Total Protein 5.5 L Albumin 2.3 L Stl C.difficile Tox PCR St C. diff Tox Epid 027 Vancomycin Trough 12/23/17 12/23/17 12/23/17 05:50 11:42 17:44 WBC RBC Hgb Hct MCV MCH MCHC RDW Plt Count MPV PT INR Puncture Site Right radial Patient Temperature 98.6 O2 Saturation 92 ABG pH 7.42 ABG pCO2 53 H* ABG pO2 73 ABG HCO3 34 H ABG O2 Content 13.7 ABG Base Excess 9.3 H ABG Methemoglobin 1.3 Krishna Test Present Hemoglobin 10.5 L Carboxyhemoglobin 1.4 O2 Delivery Device Ventilator Vent Setting 18/450/it1.0/5peep Inspired O2 45 Critical Value Yes Sodium Potassium Chloride Carbon Dioxide Anion Gap BUN Creatinine Estimated GFR POC Glucose 284 H 231 H Random Glucose Calcium Phosphorus Magnesium Total Bilirubin AST ALT Alkaline Phosphatase Troponin I Total Protein Albumin Stl C.difficile Tox PCR St C. diff Tox Epid 027 Vancomycin Trough 12/23/17 12/24/17 12/24/17 23:40 05:11 05:11 WBC 9.3 RBC 3.16 L Hgb 9.5 L Hct 29.3 L MCV 92.8 MCH 30.2 MCHC 32.5 RDW 14.6 Plt Count 107 L MPV 9.5 PT 12.2 H INR 1.2 Puncture Site Patient Temperature O2 Saturation ABG pH ABG pCO2 ABG pO2 ABG HCO3 ABG O2 Content ABG Base Excess ABG Methemoglobin Krishna Test Hemoglobin Carboxyhemoglobin O2 Delivery Device Vent Setting Inspired O2 Critical Value Sodium Potassium Chloride Carbon Dioxide Anion Gap BUN Creatinine Estimated GFR POC Glucose 245 H Random Glucose Calcium Phosphorus Magnesium Total Bilirubin AST ALT Alkaline Phosphatase Troponin I Total Protein Albumin Stl C.difficile Tox PCR St C. diff Tox Epid 027 Vancomycin Trough 12/24/17 12/24/17 12/24/17 05:11 08:11 12:23 WBC RBC Hgb Hct MCV MCH MCHC RDW Plt Count MPV PT INR Puncture Site Patient Temperature O2 Saturation ABG pH ABG pCO2 ABG pO2 ABG HCO3 ABG O2 Content ABG Base Excess ABG Methemoglobin Krishna Test Hemoglobin Carboxyhemoglobin O2 Delivery Device Vent Setting Inspired O2 Critical Value Sodium 150 H Potassium 4.5 Chloride 109 H Carbon Dioxide 36.5 H Anion Gap 5 BUN 56 H Creatinine 1.10 Estimated GFR 64 L POC Glucose 234 H Random Glucose 234 H Calcium 7.9 L Phosphorus 3.2 Magnesium 2.3 Total Bilirubin 0.6 AST 45 H ALT 46 Alkaline Phosphatase 115 Troponin I 0.08 H Total Protein 5.4 L Albumin 2.3 L Stl C.difficile Tox PCR St C. diff Tox Epid 027 Vancomycin Trough 12/24/17 13:21 WBC RBC Hgb Hct MCV MCH MCHC RDW Plt Count MPV PT INR Puncture Site Patient Temperature O2 Saturation ABG pH ABG pCO2 ABG pO2 ABG HCO3 ABG O2 Content ABG Base Excess ABG Methemoglobin Krishna Test Hemoglobin Carboxyhemoglobin O2 Delivery Device Vent Setting Inspired O2 Critical Value Sodium Potassium Chloride Carbon Dioxide Anion Gap BUN Creatinine Estimated GFR POC Glucose 254 H Random Glucose Calcium Phosphorus Magnesium Total Bilirubin AST ALT Alkaline Phosphatase Troponin I Total Protein Albumin Stl C.difficile Tox PCR St C. diff Tox Epid 027 Vancomycin Trough Result Diagrams: 12/24/17 05:11 12/24/17 05:11 Microbiology: Microbiology 12/19/17 21:20 Aerobic Blood Culture - Final Blood - Peripheral No growth in 5 days Anaerobic Blood Culture - Final No growth in 5 days 12/19/17 21:30 Aerobic Blood Culture - Final Blood - Peripheral No growth in 5 days Anaerobic Blood Culture - Final No growth in 5 days 12/20/17 14:10 Gram Stain - Final Sputum - Endotracheal Sputum Culture - Final Heavy growth normal respiratory vaishnavi 12/20/17 11:50 Urine Culture - Final Clean Catch Urine No growth in 48 hours Imaging: Impressions Chest X-Ray 12/23/17 00:00 CONCLUSION: Endotracheal tube tip at the [place]. No other significant interval change. Persistent left pleural effusion and bilateral pulmonary parenchymal opacity. Chest X-Ray 12/24/17 06:00 CONCLUSION: No significant interval change. Left-sided pleural effusion and mild bilateral parenchymal opacity again seen. Assessment and Plan - Disease Oriented Problem List (1) COPD (chronic obstructive pulmonary disease) (2) CHF (congestive heart failure) (3) Respiratory distress (4) Sepsis (5) HCAP (healthcare-associated pneumonia) (6) NAHED (acute kidney injury) (7) Pulmonary hypertension (8) S/P lobectomy of lung Pertinent Non-Medical Issues: Psychosocial: Retired. Lived in [place] most of his life-- originally from [place], then moved to [place], then to [place]. Worked as a [employer]. Supported by , 4 daughters, other extended family. Spiritual:mormon, sister providing spiritual care Legal:Patient unable to participate due to clinical condition. There is some question of underlying cognitive deficits. His would be appropriate legal decision maker. She is making decisions supported by the rest of the family, daughters, sister are very involved in his care in decision-making Ethical issues impacting care:no ethical issues identified Important Contacts: Sunshine Davenport [phone] Prognosis: This 82-year-old patient is currently hospitalized due to severe sepsis, with respiratory failure. He has multiple chronic comorbidities. 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 He also has underlying COPD, pulmonary fibrosis, prior lobectomy. Overall poor prognosis for survival from current acute issues. Code Status: Full Code Plan: * Legal decision maker: Patient unable to participate due to clinical condition. There is some question of underlying cognitive deficits. His would be appropriate legal decision maker. She is making decisions supported by the rest of the family, daughters, sister are very involved in his care in decision-making * Goals: aggressive goals; patient would want to continue ongoing aggressive treatments to improve his condition, including full code. We have reviewed the potential to require tracheostomy for long-term ventilation , family feels confident patient will be able to wean off of mechanical vent and go home. * CODE STATUS: Full code * SYMPTOMS: --Dyspnea-admitted for shortness of breath. Desaturation reported at home. Urgently intubated upon arrival to ICU. CXR indicative right lower lung probable pneumonia. On broad-spectrum antibiotics. Cultures pending. Currently breathing comfortably on mechanical vent. Family wishes to minimize sedation as much as possible though they also want him to be comfortable if possible. tolerating CPAP 5-6 hrs. --Pain-family endorses a day to day at home patient did not endorse any pain. He is status post hip repair last month. Has been essentially bedbound since that time, potential sources would include recent hip surgery, as well as prolonged bedbound status and recent invasive procedures. Had been on Versed 2 mg, fentanyl 50 mics an hour, with occasional episodes of restlessness. This has been off since yesterday, per family request. Appears to be soothed by family . will continue to monitor. Patient family verbalizes wishing to minimize sedation as much as possible. Family endorses they do not believe pt is painful or anxious today. * Palliative care will continue to follow during hospital course as condition evolves, to assist patient/decision-maker with understanding of medical conditions, weighing benefits/burdens of treatment options, for clarification of goals of treatment. Additionally will assist with any symptoms of palliative concern Attestation Attestation: To help prompt me to consider important information that might be impacting today's encounter and assessment, information from prior notes written by myself or my colleagues may have been "brought forward" into today's note. My signature on this note, however, is an attestation that I personally performed the exam, history, and/or decision-making noted today, and, unless otherwise indicated, the interactions with patient, family, and staff as well as the review of records all occurred today. I also attest that the listed assessment and stated plan reflect my best clinical judgment today based on the combination of historical information, prior notes, and today's exam/ interactions. When time spent is documented, it refers only to time spent today by the signer, or if indicated, combined time spent today by collaborating physician/nurse practitioner.
--- NOTE | 2017-12-24 17:46 | P.PN ---
Subjective Interval history: He is alert and remains on vent support. No fever. Tolerates feeds. On FIO2 40 % . Physical Exam Vital signs: Vital Signs 12/23/17 18:00 12/23/17 19:19 12/23/17 19:20 Temperature Pulse Rate 92 H 93 H Respiratory Rate 20 19 Blood Pressure Pulse Oximetry 97 12/23/17 20:00 12/23/17 22:00 12/23/17 22:25 Temperature 98.5 F Pulse Rate 94 H 102 H Respiratory Rate 18 18 Blood Pressure 142/62 H Pulse Oximetry 98 98 12/23/17 23:11 12/24/17 00:00 12/24/17 02:00 Temperature 98.7 F Pulse Rate 96 H 94 H 101 H Respiratory Rate 22 18 21 Blood Pressure 124/57 L Pulse Oximetry 100 97 12/24/17 03:40 12/24/17 04:00 12/24/17 05:10 Temperature 99.4 F Pulse Rate 90 97 H Respiratory Rate 18 24 18 Blood Pressure 120/55 L Pulse Oximetry 98 97 12/24/17 06:00 12/24/17 08:00 12/24/17 08:11 Temperature 98.2 F Pulse Rate 91 H 98 H 92 H Respiratory Rate 22 25 H Blood Pressure 127/58 L Pulse Oximetry 96 96 12/24/17 10:00 12/24/17 12:00 12/24/17 12:10 Temperature 98 F Pulse Rate 88 86 88 Respiratory Rate 21 21 Blood Pressure 162/76 H Pulse Oximetry 94 L 95 12/24/17 14:00 12/24/17 15:38 12/24/17 16:00 Temperature 98.2 F Pulse Rate 91 H 89 95 H Respiratory Rate 31 H 22 Blood Pressure 130/61 Pulse Oximetry 97 95 Intake & Output 12/23/17 12/24/17 12/24/17 18:59 06:59 18:59 Intake Total 984 / 984 1429 / 1429 200 / 200 Output Total 1350 / 1350 500 / 500 Balance -366 / -366 929 / 929 200 / 200 Weight 72 kg Intake: IV 450 / 450 713 / 713 200 / 200 Azithromycin Inj 500 MG In NS 250 / 250 Inj 250 ML @ 250 mls/hr IV.SIG Q24H [facility] Rx#:[id number] Zosyn 4.5 GM Premix 4.5 gm In 200 / 200 200 / 200 200 / 200 100 ml @ 200 mls/hr IV.SIG Q6H [facility] Rx#:[id number] Vancomycin Inj 1,250 MG In NS 263 / 263 Inj 250 ML @ 250 mls/hr IV.SIG Q24H [facility] Rx#:[id number] Tube Feeding 534 / 534 416 / 416 Water Bolus Amount 300 / 300 Output: Urine Amount (Catheter) 1350 / 1350 500 / 500 Condom 1350 / 1350 500 / 500 Other: Date of Last Bowel Movement 12/23/17 # Bowel Movements 5 GENERAL:Elderly W/M SKIN: Warm and dry. HEAD: Normocephalic. EYES: No scleral icterus. No injection or drainage. NECK: Supple, trachea midline. No JVD or lymphadenopathy. CARDIOVASCULAR: Regular rate and rhythm without murmurs, gallops, or rubs. RESPIRATORY: Breath sounds poor on left. No accessory muscle use.Occ Wheeze. GASTROINTESTINAL: Abdomen soft, non-tender, nondistended. MUSCULOSKELETAL: No cyanosis,and has edema. BACK: Nontender without obvious deformity. No CVA tenderness. - Urinary Catheter Management Straight Cath placed during this visit: yes, but has since been removed by the nurse Reason for continuing: Not indwelling catheter Insertion date: 12/23/17 Insertion time: 01:00 Removal date: 12/22/17 Removal time: 01:00 Condom Cath placed during this visit: no Results - Labs CBC & Chem 7: 12/24/17 05:11 12/24/17 05:11 Laboratory Results - last 24 hr 12/23/17 12/23/17 12/24/17 17:44 23:40 05:11 WBC 9.3 RBC 3.16 L Hgb 9.5 L Hct 29.3 L MCV 92.8 MCH 30.2 MCHC 32.5 RDW 14.6 Plt Count 107 L MPV 9.5 PT INR Sodium Potassium Chloride Carbon Dioxide Anion Gap BUN Creatinine Estimated GFR POC Glucose 231 H 245 H Random Glucose Calcium Phosphorus Magnesium Total Bilirubin AST ALT Alkaline Phosphatase Troponin I Total Protein Albumin 12/24/17 12/24/17 12/24/17 05:11 05:11 08:11 WBC RBC Hgb Hct MCV MCH MCHC RDW Plt Count MPV PT 12.2 H INR 1.2 Sodium 150 H Potassium 4.5 Chloride 109 H Carbon Dioxide 36.5 H Anion Gap 5 BUN 56 H Creatinine 1.10 Estimated GFR 64 L POC Glucose 234 H Random Glucose 234 H Calcium 7.9 L Phosphorus 3.2 Magnesium 2.3 Total Bilirubin 0.6 AST 45 H ALT 46 Alkaline Phosphatase 115 Troponin I Total Protein 5.4 L Albumin 2.3 L 12/24/17 12/24/17 12:23 13:21 WBC RBC Hgb Hct MCV MCH MCHC RDW Plt Count MPV PT INR Sodium Potassium Chloride Carbon Dioxide Anion Gap BUN Creatinine Estimated GFR POC Glucose 254 H Random Glucose Calcium Phosphorus Magnesium Total Bilirubin AST ALT Alkaline Phosphatase Troponin I 0.08 H Total Protein Albumin Microbiology 12/19/17 21:20 Blood - Peripheral Aerobic Blood Culture - Final No growth in 5 days 12/19/17 21:20 Blood - Peripheral Anaerobic Blood Culture - Final No growth in 5 days 12/19/17 21:30 Blood - Peripheral Aerobic Blood Culture - Final No growth in 5 days 12/19/17 21:30 Blood - Peripheral Anaerobic Blood Culture - Final No growth in 5 days - Imaging Impressions Chest X-Ray 12/24/17 06:00 CONCLUSION: No significant interval change. Left-sided pleural effusion and mild bilateral parenchymal opacity again seen. Assessment and Plan - Assessment (1) Respiratory failure requiring intubation Code(s): J96.90 - Respiratory failure, unspecified, unspecified whether with hypoxia or hypercapnia Status: Acute (2) Pneumonia Code(s): J18.9 - Pneumonia, unspecified organism Status: Acute (3) CHF (congestive heart failure), NYHA class II Code(s): I50.9 - Heart failure, unspecified Status: Acute (4) CHF (congestive heart failure) Code(s): I50.9 - Heart failure, unspecified Status: Acute (5) Respiratory abnormalities Code(s): J98.9 - Respiratory disorder, unspecified Status: Acute (6) Emphysema of lung Code(s): J43.9 - Emphysema, unspecified Status: Acute (7) Borderline diabetes mellitus Code(s): R73.03 - Prediabetes Status: Acute (8) Fracture, intertrochanteric, left femur Code(s): S72.142A - Displaced intertrochanteric fracture of left femur, initial encounter for closed fracture Status: Acute (9) Nutrition, metabolism, and development symptoms Code(s): R63.8 - Other symptoms and signs concerning food and fluid intake Status: Acute - Plan RECOMMENDATIONS: 1. Continue with vent support and wean FIo2 to 35 % ,maintain sats above 92%. 2. Bronchodilators in the form of DuoNeb q.6 plus q.2 p.r.n.. 3. Cont Solu-Medrol 40 mg IV BID 4. CPAP trial upto 8 hrs daily 5. Continue with antibiotics . 6. No sedation 7. Resp parameters in am. 8. CBC,BMP , in am 9. Consider extubation if meets criteria, and D/W family at length.
[2017-12-25] MEDS: Azithromycin Inj 500 MG in Sodium Chlor 0.9% Inj 250 ML IV.SIG SCH (01:35)
[2017-12-25] MEDS: Piperacil/Tazo 4.5 GM Premix 4.5 GM/100 ML BAG IV.SIG SCH ×4 (03:07→20:22)
--- NOTE | 2017-12-25 04:10 | XR ---
EXAM DATE: 12/25/2017 6:00 AM EDT AGE/SEX: 82 years / Male INDICATIONS: Respiratory failure CLINICAL DATA: This is the patient's subsequent encounter. Patient reports that signs and symptoms h ave been present for 1 week and indicates a pain score of Nonresponsive. MEDICAL/SURGICAL HISTORY: Chronic obstructive pulmonary disease. Diabetes. Lobectomy. COMPARISON: [facility] – [place], CHEST 1V SINGLE AP, 12/24/2017. . FINDINGS: Pleural thickening, calcification and volume loss again seen on the left. There is patchy parenchymal consolidation of the right lung, not significantly changed. No pneumothorax is seen. Heart size stable, within normal limits. Endotracheal tube tip is approximately 2.5 cm above the camilla. There is a nasogastric tube coursing into the stomach. CONCLUSION: No significant change. Electronically signed by: Arvin Lopez MD 12/25/2017 4:09 AM EDT
[2017-12-25] MEDS: Oral Hygiene Kit OROPHARYNG SCH ×3 (05:49→16:21)
[2017-12-25] MEDS: MethylPREDNISolone Sod Succinate Inj 40 MG/ML Vial IV.PUSH SCH ×2 (05:49→20:19)
[2017-12-25 06:09] LABS: Hematocrit 30.2 % (39.0-51.0); Mean Corpuscular Hemoglobin 30.4 pg (27.0-34.0); Mean Corpuscular Volume 92.2 fL (80.0-100.0); Mean Platelet Volume 9.6 fL (7.0-11.0); Platelet Count 116 th/mm3 (150-450); Red Blood Count 3.28 mil/mm3 (4.50-5.90); Red Cell Distribution Width 14.8 % (11.6-17.2); White Blood Count 10.9 th/mm3 (4.0-11.0)
[2017-12-25 06:21] LABS: INR 1.2 Ratio
[2017-12-25 06:37] LABS: Albumin 2.3 g/dL (3.4-5.0); Anion Gap 8 meq/L (5-15); Aspartate Aminotransferase 57 U/L (15-37); Blood Urea Nitrogen 53 mg/dL (7-18); Calcium 7.8 mg/dL (8.5-10.1); Carbon Dioxide 36.4 meq/L (21.0-32.0); Chloride 107 meq/L (98-107); Glomerular Filtration Rate 69 mL/min (>89); Glucose,Random 189 mg/dL (74-106); Magnesium 2.4 mg/dL (1.5-2.5); Potassium 4.1 meq/L (3.5-5.1); Sodium 151 meq/L (136-145)
[2017-12-25 06:38] LABS: Alanine Aminotransferase 59 U/L (12-78)
[2017-12-25 06:40] LABS: Alkaline Phosphatase 115 U/L (45-117); Phosphorus 3.5 mg/dL (2.5-4.9); Total Protein 5.3 g/dL (6.4-8.2)
[2017-12-25] MEDS: Insulin NovoLOG Aspart Correctional Sugar Inj SQ SCH ×3 (06:44→18:27)
--- NOTE | 2017-12-25 07:10 | P.PNCC ---
Subjective Subjective Remarks/Hospital Course: 82-year-old male with past medical history of COPD and CHF presents for an evaluation of shortness of breath and hypoxemia worsening over past few days. The nebulizer treatments helped initially however today there were not helpful. EMS reports on scene the O2 sat was in the 80s. He received high flow oxygen and nebulized albuterol in route here. His blood pressure initially in the emergency department was 200/100 however trended down to about 160/90. BiPAP was started in the emergency department with improvement in his O2 sat that has trended towards the high 90s with 100% FiO2 on BiPAP. Shortly after transfer to ICU the patient continues to to be more hypoxemic and restless requiring endotracheal intubation and mechanical ventilation. 12/20: intubated and sedated. still hypercarbic with [id number] respiratory acidosis. family unhappy that patient was intubated: they insisted last night on being a Full Code, but apparently the daughter required that she be notified of exactly what SpO2 the patient was at, and it had to reach a certain low level before she would be ok with intubation. Per overnight records , patient presented with severe respiratory distress, and family reports that EMS stated patient "wouldn't make it all the way to [facility]" due to his pulmonary instability. This morning, hypoxia is somewhat improved. remains on broad spectrum antibiotics. I explained to family that this is likely a new pneumonia causing respiratory failure. I also explained that after recent hip fracture and recent prolonged hospitalization, his baseline end-stage lung disease and NYHA Class IV symptoms are likely to worsen, and this may be worsening of his overall end-stage disease processes. Family continues to state that our facility caused his lung failure during the prior hospitalization. They are also concerned about his poor peripheral perfusion and oliguria, which concerns me also: I explained that his heart failure could not tolerate significant amount of iv fluids, and we have already given him 1500mL over the last 12 hours, but they have insisted on additional iv fluids. I explained he had severe sepsis and the mortality associated with this. Daughter continues to remind me that her father "is coming home with her and getting better" as she has stated multiple times in the past. 12/21: no improvements. remains intubated. clinically becoming volume overloaded - will be forced to start diuresis. 12/22: mental status slightly improved. still failing weaning attempts. 12/23: Afebrile. Currently on PSV trial 15/7 at 45%. Discussed with and daughter at bedside. Chest x-ray revealed ET tube at camilla. Retracted 1 cm. Tolerating tube feeds with family requested 40 cc an hour. Subjective: 12/24: Afebrile. Currently CPAP trial FiO2 at 45%. Tolerating tube feeds if family requested 40 cc an hour. Receiving morphine 1-2 mg every 4 hours as needed pain. 12/25 No events overnight remains intubated off sedation. Tolerated CPAP for several hrs yesterday. Afebrile. Objective Vital Signs / I&O: Vital Signs 12/24/17 08:00 12/24/17 08:11 12/24/17 10:00 Temperature 98.2 F Pulse Rate 98 H 92 H 88 Respiratory Rate 22 25 H Blood Pressure 127/58 L Pulse Oximetry 96 96 12/24/17 12:00 12/24/17 12:10 12/24/17 14:00 Temperature 98 F Pulse Rate 86 88 91 H Respiratory Rate 21 21 Blood Pressure 162/76 H Pulse Oximetry 94 L 95 12/24/17 15:38 12/24/17 16:00 12/24/17 18:00 Temperature 98.2 F Pulse Rate 89 95 H 82 Respiratory Rate 31 H 22 Blood Pressure 130/61 Pulse Oximetry 97 95 12/24/17 19:50 12/24/17 19:52 12/24/17 20:00 Temperature 97.8 F Pulse Rate 80 79 Respiratory Rate 18 18 18 Blood Pressure 100/57 L Pulse Oximetry 96 99 12/24/17 22:00 12/24/17 23:27 12/25/17 00:00 Temperature 98.3 F Pulse Rate 88 83 Respiratory Rate 18 19 Blood Pressure 138/65 Pulse Oximetry 96 96 12/25/17 02:00 12/25/17 03:48 12/25/17 04:00 Temperature 98.4 F Pulse Rate 90 79 Respiratory Rate 19 18 Blood Pressure 120/58 L Pulse Oximetry 97 96 12/25/17 04:38 12/25/17 06:00 Temperature Pulse Rate 81 80 Respiratory Rate 20 Blood Pressure Pulse Oximetry Intake & Output 12/24/17 12/24/17 12/25/17 06:59 18:59 06:59 Intake Total 1429 / 1429 931 / 931 713 / 713 Output Total 500 / 500 800 / 800 Balance 929 / 929 131 / 131 713 / 713 Weight 72 kg Intake: IV 713 / 713 200 / 200 713 / 713 Azithromycin Inj 500 MG In NS 250 / 250 250 / 250 Inj 250 ML @ 250 mls/hr IV.SIG Q24H [facility] Rx#:[id number] Zosyn 4.5 GM Premix 4.5 gm In 200 / 200 200 / 200 200 / 200 100 ml @ 200 mls/hr IV.SIG Q6H [facility] Rx#:[id number] Vancomycin Inj 1,250 MG In NS 263 / 263 263 / 263 Inj 250 ML @ 250 mls/hr IV.SIG Q24H [facility] Rx#:[id number] Tube Feeding 416 / 416 431 / 431 Water Bolus Amount 300 / 300 300 / 300 Output: Urine 800 / 800 Urine Amount (Catheter) 500 / 500 Condom 500 / 500 Result Diagrams: 12/25/17 05:27 12/25/17 05:27 Other Results: Laboratory Results - last 24 hr 12/24/17 12/24/17 12/24/17 08:11 12:23 13:21 WBC RBC Hgb Hct MCV MCH MCHC RDW Plt Count MPV PT INR Sodium Potassium Chloride Carbon Dioxide Anion Gap BUN Creatinine Estimated GFR POC Glucose 234 H 254 H Random Glucose Calcium Phosphorus Magnesium Total Bilirubin AST ALT Alkaline Phosphatase Troponin I 0.08 H Total Protein Albumin 12/24/17 12/24/17 12/25/17 18:12 23:40 05:27 WBC 10.9 RBC 3.28 L Hgb 10.0 L Hct 30.2 L MCV 92.2 MCH 30.4 MCHC 33.0 RDW 14.8 Plt Count 116 L MPV 9.6 PT INR Sodium Potassium Chloride Carbon Dioxide Anion Gap BUN Creatinine Estimated GFR POC Glucose 245 H 231 H Random Glucose Calcium Phosphorus Magnesium Total Bilirubin AST ALT Alkaline Phosphatase Troponin I Total Protein Albumin 12/25/17 12/25/17 05:27 05:27 WBC RBC Hgb Hct MCV MCH MCHC RDW Plt Count MPV PT 12.0 H INR 1.2 Sodium 151 H Potassium 4.1 Chloride 107 Carbon Dioxide 36.4 H Anion Gap 8 BUN 53 H Creatinine 1.04 Estimated GFR 69 L POC Glucose Random Glucose 189 H Calcium 7.8 L Phosphorus 3.5 Magnesium 2.4 Total Bilirubin 0.6 AST 57 H ALT 59 Alkaline Phosphatase 115 Troponin I Total Protein 5.3 L Albumin 2.3 L Imaging: Chest X-Ray 12/25/17 06:00 CONCLUSION: No significant change. Objective Remarks: GENERAL: 82-year-old male currently orotracheally intubated and resting in bed HEENT: Normocephalic. Atraumatic. Pupils equal, round, reactive, conjugate. Mucous membranes are moist NECK: Trachea is midline. negative jvd. CHEST: Fine rales in the right lower lobe. Rhonchi in the right upper. Prolonged expiratory time. No wheezing. CARDIOVASCULAR: Normal rate, regular rhythm. S1, S2. No S4 ABDOMEN: Soft, nontender, nondistended. No guarding. MUSCULOSKELETAL: Pulses 2+. No peripheral edema. No mottling NEUROLOGICAL: Arousable and follows commands. Moves all 4 extremities spontaneously. 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 SBT daily as jeanne. Methylprednisolone succinate 40 mg IV every 8 hours Pulmonary is following- Dr. 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 Normal left ventricular size. Wall thickness is normal. No regional wall motion abnormalities are present. Diffuse calcification of the aortic valve but no significant stenosis. There is mild to moderate tricuspid valve regurgitation. The estimated pulmonary arterial pressure is 76.9 mmHg with severe pulmonary hypertension. Continue furosemide 40 mg daily/home medication As needed labetalol and Nitropaste for hypertension Renal/: Acute kidney injury History of nephrolithiasis Monitor renal function, I/O's, electrolytes replacement per protocol. Straight cath every 6 hours. We will avoid Bethea if possible given risk of catheter associated UTI FEN/GI: Severe acute protein calorie malnutrition Hypernatremia Hypophosphatemia OG tube feeds at 40 cc an hour Glucerna 1.5 Lansoprazole for GI prophylaxis Docusate sodium/senna 1 tablet twice daily for bowel regimen Increase Free water 250ml Q6 Heme/ID: Healthcare associated pneumonia Severe sepsis- present on admission Normocytic anemia Thrombocytopenia Vancomycin with pharmacy consultation, piperacillin/tazobactam and azithromycin since 12/19. Sputum culture 12/20- Blood cultures 12/19 no growth Urine UA with urine culture 12/20-NGTD Negative Legionella and pneumococcal urinary antigens Monitor CBC daily and follow trends. No indication for transfusion of blood products at this time Endocrine: Hyperglycemia of critical illness -- SSI to maintain euglycemia with aspart insulin every 6 hours high. insulin detemir 5 twice daily MSK:: History of left IT nailing 11/14 Vitamin D deficiency PT evaluate and treat Prophylaxis: GI Prophylaxis Lansoprazole DVT Prophylaxis -- SCDs Enoxaparin Lines: Peripheral IVs Level 3
[2017-12-25] MEDS: Enoxaparin Inj 40 MG/0.4 ML Syringe SQ SCH (08:26)
[2017-12-25] MEDS: Insulin Detemir Inj 1,000 UNIT/10 ML Vial SQ SCH ×2 (08:26→20:22)
[2017-12-25] MEDS: Chlorhexidine 0.12% Oral Kit 15 ML UDC OROPHARYNG SCH ×2 (08:26→20:22)
[2017-12-25] MEDS: Carboxymethylcellulose 0.5% Opth Drops 15 ML Bottle EACH EYE SCH ×2 (08:26→20:23)
[2017-12-25] MEDS: Senna/Docusate Sodium 8.6/50 MG Tablet PO SCH ×2 (08:26→20:23)
[2017-12-25] MEDS: Furosemide 40 MG Tablet PO SCH (08:26)
--- NOTE | 2017-12-25 12:19 | P.PN ---
Subjective Interval history: Alert and on the vent . FIo2 at 35 %, and CPAP all morning. he has loose stools. Physical Exam Vital signs: Vital Signs 12/24/17 14:00 12/24/17 15:38 12/24/17 16:00 Temperature 98.2 F Pulse Rate 91 H 89 95 H Respiratory Rate 31 H 22 Blood Pressure 130/61 Pulse Oximetry 97 95 12/24/17 18:00 12/24/17 19:50 12/24/17 19:52 Temperature Pulse Rate 82 80 Respiratory Rate 18 18 Blood Pressure Pulse Oximetry 96 12/24/17 20:00 12/24/17 22:00 12/24/17 23:27 Temperature 97.8 F Pulse Rate 79 88 Respiratory Rate 18 18 Blood Pressure 100/57 L Pulse Oximetry 99 96 12/25/17 00:00 12/25/17 02:00 12/25/17 03:48 Temperature 98.3 F Pulse Rate 83 90 Respiratory Rate 19 19 Blood Pressure 138/65 Pulse Oximetry 96 97 12/25/17 04:00 12/25/17 04:38 12/25/17 06:00 Temperature 98.4 F Pulse Rate 79 81 80 Respiratory Rate 18 20 Blood Pressure 120/58 L Pulse Oximetry 96 12/25/17 08:00 12/25/17 08:06 12/25/17 10:00 Temperature 98.1 F Pulse Rate 85 84 86 Respiratory Rate 21 18 Blood Pressure 139/60 Pulse Oximetry 97 96 12/25/17 11:08 Temperature Pulse Rate 87 Respiratory Rate 27 H Blood Pressure Pulse Oximetry 97 Intake & Output 12/24/17 12/25/17 12/25/17 18:59 06:59 18:59 Intake Total 931 / 931 1429 / 1429 100 / 100 Output Total 800 / 800 350 / 350 Balance 131 / 131 1079 / 1079 100 / 100 Weight 75 kg Intake: IV 200 / 200 713 / 713 100 / 100 Azithromycin Inj 500 MG In NS 250 / 250 Inj 250 ML @ 250 mls/hr IV.SIG Q24H [facility] Rx#:[id number] Zosyn 4.5 GM Premix 4.5 gm In 200 / 200 200 / 200 100 / 100 100 ml @ 200 mls/hr IV.SIG Q6H [facility] Rx#:[id number] Vancomycin Inj 1,250 MG In NS 263 / 263 Inj 250 ML @ 250 mls/hr IV.SIG Q24H [facility] Rx#:[id number] Tube Feeding 431 / 431 416 / 416 Water Bolus Amount 300 / 300 300 / 300 Output: Urine 800 / 800 Urine Amount (Catheter) 350 / 350 Condom 350 / 350 Other: Date of Last Bowel Movement 12/25/17 # Bowel Movements 2 GENERAL: Elderly W/M intubated SKIN: Warm and dry. HEAD: Normocephalic. EYES: No scleral icterus. No injection or drainage. NECK: Supple, trachea midline. No JVD or lymphadenopathy. CARDIOVASCULAR: Regular rate and rhythm without murmurs, gallops, or rubs. RESPIRATORY: Breath sounds equal bilaterally. Occ Crackles at Bases. No accessory muscle use. GASTROINTESTINAL: Abdomen soft, tender, nondistended. MUSCULOSKELETAL: No cyanosis, or edema. BACK: Nontender without obvious deformity. No CVA tenderness. - Urinary Catheter Management Straight Cath placed during this visit: yes, but has since been removed by the nurse Reason for continuing: Not indwelling catheter Insertion date: 12/23/17 Insertion time: 01:00 Removal date: 12/22/17 Removal time: 01:00 Condom Cath placed during this visit: no Results - Labs CBC & Chem 7: 12/25/17 05:27 12/25/17 05:27 Laboratory Results - last 24 hr 12/24/17 12/24/17 12/24/17 12:23 13:21 18:12 WBC RBC Hgb Hct MCV MCH MCHC RDW Plt Count MPV PT INR Sodium Potassium Chloride Carbon Dioxide Anion Gap BUN Creatinine Estimated GFR POC Glucose 254 H 245 H Random Glucose Calcium Phosphorus Magnesium Total Bilirubin AST ALT Alkaline Phosphatase Troponin I 0.08 H Total Protein Albumin 12/24/17 12/25/17 12/25/17 23:40 05:27 05:27 WBC 10.9 RBC 3.28 L Hgb 10.0 L Hct 30.2 L MCV 92.2 MCH 30.4 MCHC 33.0 RDW 14.8 Plt Count 116 L MPV 9.6 PT 12.0 H INR 1.2 Sodium Potassium Chloride Carbon Dioxide Anion Gap BUN Creatinine Estimated GFR POC Glucose 231 H Random Glucose Calcium Phosphorus Magnesium Total Bilirubin AST ALT Alkaline Phosphatase Troponin I Total Protein Albumin 12/25/17 05:27 WBC RBC Hgb Hct MCV MCH MCHC RDW Plt Count MPV PT INR Sodium 151 H Potassium 4.1 Chloride 107 Carbon Dioxide 36.4 H Anion Gap 8 BUN 53 H Creatinine 1.04 Estimated GFR 69 L POC Glucose Random Glucose 189 H Calcium 7.8 L Phosphorus 3.5 Magnesium 2.4 Total Bilirubin 0.6 AST 57 H ALT 59 Alkaline Phosphatase 115 Troponin I Total Protein 5.3 L Albumin 2.3 L Microbiology 12/19/17 21:20 Blood - Peripheral Aerobic Blood Culture - Final No growth in 5 days 12/19/17 21:20 Blood - Peripheral Anaerobic Blood Culture - Final No growth in 5 days 12/19/17 21:30 Blood - Peripheral Aerobic Blood Culture - Final No growth in 5 days 12/19/17 21:30 Blood - Peripheral Anaerobic Blood Culture - Final No growth in 5 days - Imaging Impressions Chest X-Ray 12/25/17 06:00 CONCLUSION: No significant change. Assessment and Plan - Assessment (1) Respiratory failure requiring intubation Code(s): J96.90 - Respiratory failure, unspecified, unspecified whether with hypoxia or hypercapnia Status: Acute (2) Pneumonia Code(s): J18.9 - Pneumonia, unspecified organism Status: Acute (3) CHF (congestive heart failure), NYHA class II Code(s): I50.9 - Heart failure, unspecified Status: Acute (4) CHF (congestive heart failure) Code(s): I50.9 - Heart failure, unspecified Status: Acute (5) Respiratory abnormalities Code(s): J98.9 - Respiratory disorder, unspecified Status: Acute (6) Emphysema of lung Code(s): J43.9 - Emphysema, unspecified Status: Acute (7) Borderline diabetes mellitus Code(s): R73.03 - Prediabetes Status: Acute (8) Fracture, intertrochanteric, left femur Code(s): S72.142A - Displaced intertrochanteric fracture of left femur, initial encounter for closed fracture Status: Acute (9) Nutrition, metabolism, and development symptoms Code(s): R63.8 - Other symptoms and signs concerning food and fluid intake Status: Acute - Plan RECOMMENDATIONS: 1. Continue with vent support and wean FIo2 to 35 % ,maintain sats above 92%. 2. Bronchodilators in the form of DuoNeb q.6 plus q.2 p.r.n.. 3. Cont Solu-Medrol 40 mg IV BID 4. CPAP today and respiratory parameters 5. Continue with antibiotics . 6. No sedation 7. Check stool cultures. 8. CBC,BMP ,CXR in am 9. Consider extubation if meets criteria, and D/W family and Dr Pack at length.
[2017-12-25 13:00] LABS: ABG Base Excess 13.7 mmol/L (-2-2); ABG PCO2 58 mmHg (38-42); ABG PO2 89 mmHG (61-120)
--- NOTE | 2017-12-25 16:49 | P.PNPAL ---
Reason for Visit Reason for visit: a. To assist with evaluation and management of symptoms including: dyspnea, pain b. To assist medical decision maker(s) with: better understanding of current medical conditions; weighing benefits/burdens of medical treatment options; making medical treatment decisions. Subjective Subjective/Interval History: Patient seen today to follow up on comfort/goals. Pt stable overnight. Remains on mech vent, tolerating CPAP. Has remained off sedation per family request . +having loose BMs- C-diff negative. Tolerating TF. H&H stable 9.5/28.1. Renal function stable. BC no growth to date. CXR unchanged, mild bilateral parenchymal opacity. Possible medical extubation today per pulmonary/critical care. Patient seen today in room with , daughter at bedside. Sister joined via speaker phone. -- review most recent diagnostics, current tx in place, conditions being tx. Review stable- no significant worsening, no significant changes. Explore he remains at risk for complications/changes/setbacks. They asked for specific results of recent ABG, as well as CXR. Review with them ABG findings , normals , as well as patient ABG historically and that some of his numbers will always remain abnormal . further explore with them CXRs imaging, and again review older CXR as per prior admission and that some of underlying lung disease process will not be expected to change, and at this time his lungs may be as good as they might get. They ask if it is" too too soon to remove the breathing tube." Gently explore that the longer any invasive measures remain in i.e. breathing tube, Bethea catheters, IVs etc, they can become source of infection and that critical care and pulmonology would determine when medically appropriate to extubate . IF patient remains intubated for too long without good medical indications that could potentially pose more harm than benefit. Further explore that if he does experience respiratory compromise post extubation that he can be reintubated and stabilized quickly in the ICU setting. They indicate they are somewhat anxious and worried about a possible extubation but will await whatever the medical team recommends. They remain hopeful that the patient can continue to improve and be well enough to go home. All questions answered to the best of my ability. Supportive listening provided. They have palliative contact information. They voiced appreciation for ongoing updates. D/w critical care, RN. Additional history per recent admission 11/13/17: Patient with known history CHF, diabetes, COPD, pulmonary fibrosis and asbestosis, presented to the ED after sustaining a fall in his home. He was lightheaded. Baseline 3-4 L nasal cannula requiring significant assistance with ADLs. Also with known history of LEFT thoracotomy and lobectomy/resection many years ago. Imaging finding of intertrochanteric fracture of proximal left hip. Also findings of osteopenia. Pulmonology evaluated patient and noted that he was cleared for surgery though may require BiPAP after. Suggested limited anesthesia secondary to moderately failure and/or pneumonia. Orthopedics consulted reviewed options family requested to proceed with operative management. During that admission noted during attending discussion with family daughter reports baseline mental status with some component of a dementia. Patient's primary language also reported to be a telemetry and though they requested no interpretation service be used during encounters because this would make him upset. During that hospital course patient did require ICU on BiPAP. Patient with some agitation. Anemia requiring transfusion postoperatively. Ongoing respiratory complication and concern for respiratory decompensation that could require mechanical ventilation and could result in difficulty weaning. Critical care notes discussion with family requested full CODE STATUS and continued aggressive management. Outpatient CT per Dr. Guerrier demonstrated pulmonary fibrosis and bronchiectasis. Patient did have a VQ scan during that admission with ventilation abnormally and perfume and of normal least left lower lobe pattern not typical of PE likely related to lobectomy. Avoiding CTA due to worsening renal function, family did not wish to assume risk. During that hospital course it is noted family requested transfer to [facility], critical care attempted to initiate that process. [facility] declined admission. Patient was also evaluated for LTAC, insurance apparently denied LTAC. Family appealed this and patient was later accepted by [facility]. He was discharged to [facility] 11/20/17 Objective Vital Signs: Vital Signs 12/24/17 18:00 12/24/17 19:50 12/24/17 19:52 Temperature Pulse Rate 82 80 Respiratory Rate 18 18 Blood Pressure Pulse Oximetry 96 12/24/17 20:00 12/24/17 22:00 12/24/17 23:27 Temperature 97.8 F Pulse Rate 79 88 Respiratory Rate 18 18 Blood Pressure 100/57 L Pulse Oximetry 99 96 12/25/17 00:00 12/25/17 02:00 12/25/17 03:48 Temperature 98.3 F Pulse Rate 83 90 Respiratory Rate 19 19 Blood Pressure 138/65 Pulse Oximetry 96 97 12/25/17 04:00 12/25/17 04:38 12/25/17 06:00 Temperature 98.4 F Pulse Rate 79 81 80 Respiratory Rate 18 20 Blood Pressure 120/58 L Pulse Oximetry 96 12/25/17 08:00 12/25/17 08:06 12/25/17 10:00 Temperature 98.1 F Pulse Rate 85 84 86 Respiratory Rate 21 18 Blood Pressure 139/60 Pulse Oximetry 97 96 12/25/17 11:08 12/25/17 12:00 12/25/17 14:00 Temperature 98 F Pulse Rate 87 80 86 Respiratory Rate 27 H 22 Blood Pressure 170/68 H Pulse Oximetry 97 96 12/25/17 15:33 Temperature Pulse Rate 81 Respiratory Rate 23 Blood Pressure Pulse Oximetry 96 Intake & Output 12/24/17 12/25/17 12/25/17 18:59 06:59 18:59 Intake Total 931 / 931 1429 / 1429 100 / 100 Output Total 800 / 800 350 / 350 Balance 131 / 131 1079 / 1079 100 / 100 Weight 75 kg Intake: IV 200 / 200 713 / 713 100 / 100 Azithromycin Inj 500 MG In NS 250 / 250 Inj 250 ML @ 250 mls/hr IV.SIG Q24H NOAH Rx#:[id number] Zosyn 4.5 GM Premix 4.5 gm In 200 / 200 200 / 200 100 / 100 100 ml @ 200 mls/hr IV.SIG Q6H NOAH Rx#:[id number] Vancomycin Inj 1,250 MG In NS 263 / 263 Inj 250 ML @ 250 mls/hr IV.SIG Q24H NOAH Rx#:[id number] Tube Feeding 431 / 431 416 / 416 Water Bolus Amount 300 / 300 300 / 300 Output: Urine 800 / 800 Urine Amount (Catheter) 350 / 350 Condom 350 / 350 Other: Date of Last Bowel Movement 12/25/17 # Bowel Movements 2 Physical Exam: CONSTITUTIONAL/GENERAL: This is a thin elderly male, on mechanical vent, alert TUBES/LINES/DRAINS: peripheral IVs to bilateral upper extremities. ET tube, OG tube. External catheter. SKIN: No jaundice, rashes, or lesions. Extensive ecchymosis along left hip, upper leg. Some areas of fading. No wounds seen anteriorly. Skin warm and dry. HEAD: Atraumatic. Normocephalic. EYES: Pupils 3mm/slight reaction to light. No scleral icterus. No injection or drainage. Fundi not examined. ENT: Nose without bleeding or purulent drainage. Throat without visible erythema, exudates, limited exam 2/2 ett, ogt CARDIOVASCULAR: Regular rate and rhythm without murmur, rate 90. No JVD. Peripheral pulses symmetric. RESPIRATORY/CHEST: Symmetric, unlabored respirations on mech vent. Rt clear, left with minimal air movement. GASTROINTESTINAL: Abdomen soft, no apparent tenderness. No palpable masses. Bowel sounds present.TF infusing to OGT GENITOURINARY: Without palpable bladder distension. External catheter in place. MUSCULOSKELETAL: Extremities without clubbing, cyanosis. Slight edema to hands. No joint tenderness or effusion noted. No mottling or clubbing. NEUROLOGICAL: No sedation. 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 Follows commands to move hands,to move hands, feet, very weakly, when family requests in [place]. PSYCHIATRIC: occasional restlessness, calmed by family, otherwise no apparent distress. Diagnostic Tests Laboratory: Laboratory Results - last 72 hr 12/22/17 12/22/17 12/22/17 17:38 22:59 23:00 WBC RBC Hgb Hct MCV MCH MCHC RDW Plt Count MPV PT INR Puncture Site Patient Temperature O2 Saturation ABG pH ABG pCO2 ABG pO2 ABG HCO3 ABG O2 Content ABG Base Excess ABG Methemoglobin Krishna Test Hemoglobin Carboxyhemoglobin O2 Delivery Device Vent Setting Inspired O2 Critical Value Sodium Potassium Chloride Carbon Dioxide Anion Gap BUN Creatinine Estimated GFR POC Glucose 242 H 305 H Random Glucose Calcium Phosphorus Magnesium Total Bilirubin AST ALT Alkaline Phosphatase Troponin I Total Protein Albumin Stl C.difficile Tox PCR St C. diff Tox Epid 027 Vancomycin Trough 13.4 H 12/23/17 12/23/17 12/23/17 01:00 04:28 04:28 WBC 8.0 RBC 3.10 L Hgb 9.4 L Hct 28.6 L MCV 92.2 MCH 30.1 MCHC 32.7 RDW 14.8 Plt Count 110 L MPV 8.6 PT 12.1 H INR 1.2 Puncture Site Patient Temperature O2 Saturation ABG pH ABG pCO2 ABG pO2 ABG HCO3 ABG O2 Content ABG Base Excess ABG Methemoglobin Krishna Test Hemoglobin Carboxyhemoglobin O2 Delivery Device Vent Setting Inspired O2 Critical Value Sodium Potassium Chloride Carbon Dioxide Anion Gap BUN Creatinine Estimated GFR POC Glucose Random Glucose Calcium Phosphorus Magnesium Total Bilirubin AST ALT Alkaline Phosphatase Troponin I Total Protein Albumin Stl C.difficile Tox PCR Negative St C. diff Tox Epid 027 Negative Vancomycin Trough 12/23/17 12/23/17 12/23/17 04:28 05:50 11:42 WBC RBC Hgb Hct MCV MCH MCHC RDW Plt Count MPV PT INR Puncture Site Right radial Patient Temperature 98.6 O2 Saturation 92 ABG pH 7.42 ABG pCO2 53 H* ABG pO2 73 ABG HCO3 34 H ABG O2 Content 13.7 ABG Base Excess 9.3 H ABG Methemoglobin 1.3 Krishna Test Present Hemoglobin 10.5 L Carboxyhemoglobin 1.4 O2 Delivery Device Ventilator Vent Setting 18/450/it1.0/5peep Inspired O2 45 Critical Value Yes Sodium 153 H Potassium 4.8 Chloride 111 H Carbon Dioxide 36.3 H Anion Gap 6 BUN 53 H Creatinine 1.09 Estimated GFR 65 L POC Glucose 284 H Random Glucose 297 H Calcium 7.7 L Phosphorus 2.4 L Magnesium 2.4 Total Bilirubin 0.5 AST 35 ALT 39 Alkaline Phosphatase 122 H Troponin I Total Protein 5.5 L Albumin 2.3 L Stl C.difficile Tox PCR St C. diff Tox Epid 027 Vancomycin Trough 12/23/17 12/23/17 12/24/17 17:44 23:40 05:11 WBC 9.3 RBC 3.16 L Hgb 9.5 L Hct 29.3 L MCV 92.8 MCH 30.2 MCHC 32.5 RDW 14.6 Plt Count 107 L MPV 9.5 PT INR Puncture Site Patient Temperature O2 Saturation ABG pH ABG pCO2 ABG pO2 ABG HCO3 ABG O2 Content ABG Base Excess ABG Methemoglobin Krsihna Test Hemoglobin Carboxyhemoglobin O2 Delivery Device Vent Setting Inspired O2 Critical Value Sodium Potassium Chloride Carbon Dioxide Anion Gap BUN Creatinine Estimated GFR POC Glucose 231 H 245 H Random Glucose Calcium Phosphorus Magnesium Total Bilirubin AST ALT Alkaline Phosphatase Troponin I Total Protein Albumin Stl C.difficile Tox PCR St C. diff Tox Epid 027 Vancomycin Trough 12/24/17 12/24/17 12/24/17 05:11 05:11 08:11 WBC RBC Hgb Hct MCV MCH MCHC RDW Plt Count MPV PT 12.2 H INR 1.2 Puncture Site Patient Temperature O2 Saturation ABG pH ABG pCO2 ABG pO2 ABG HCO3 ABG O2 Content ABG Base Excess ABG Methemoglobin Krishna Test Hemoglobin Carboxyhemoglobin O2 Delivery Device Vent Setting Inspired O2 Critical Value Sodium 150 H Potassium 4.5 Chloride 109 H Carbon Dioxide 36.5 H Anion Gap 5 BUN 56 H Creatinine 1.10 Estimated GFR 64 L POC Glucose 234 H Random Glucose 234 H Calcium 7.9 L Phosphorus 3.2 Magnesium 2.3 Total Bilirubin 0.6 AST 45 H ALT 46 Alkaline Phosphatase 115 Troponin I Total Protein 5.4 L Albumin 2.3 L Stl C.difficile Tox PCR St C. diff Tox Epid 027 Vancomycin Trough 12/24/17 12/24/17 12/24/17 12:23 13:21 18:12 WBC RBC Hgb Hct MCV MCH MCHC RDW Plt Count MPV PT INR Puncture Site Patient Temperature O2 Saturation ABG pH ABG pCO2 ABG pO2 ABG HCO3 ABG O2 Content ABG Base Excess ABG Methemoglobin Krishna Test Hemoglobin Carboxyhemoglobin O2 Delivery Device Vent Setting Inspired O2 Critical Value Sodium Potassium Chloride Carbon Dioxide Anion Gap BUN Creatinine Estimated GFR POC Glucose 254 H 245 H Random Glucose Calcium Phosphorus Magnesium Total Bilirubin AST ALT Alkaline Phosphatase Troponin I 0.08 H Total Protein Albumin Stl C.difficile Tox PCR St C. diff Tox Epid 027 Vancomycin Trough 12/24/17 12/25/17 12/25/17 23:40 05:27 05:27 WBC 10.9 RBC 3.28 L Hgb 10.0 L Hct 30.2 L MCV 92.2 MCH 30.4 MCHC 33.0 RDW 14.8 Plt Count 116 L MPV 9.6 PT 12.0 H INR 1.2 Puncture Site Patient Temperature O2 Saturation ABG pH ABG pCO2 ABG pO2 ABG HCO3 ABG O2 Content ABG Base Excess ABG Methemoglobin Krishna Test Hemoglobin Carboxyhemoglobin O2 Delivery Device Vent Setting Inspired O2 Critical Value Sodium Potassium Chloride Carbon Dioxide Anion Gap BUN Creatinine Estimated GFR POC Glucose 231 H Random Glucose Calcium Phosphorus Magnesium Total Bilirubin AST ALT Alkaline Phosphatase Troponin I Total Protein Albumin Stl C.difficile Tox PCR St C. diff Tox Epid 027 Vancomycin Trough 12/25/17 12/25/17 12/25/17 05:27 12:14 12:50 WBC RBC Hgb Hct MCV MCH MCHC RDW Plt Count MPV PT INR Puncture Site Right radial Patient Temperature 98.6 O2 Saturation 94 ABG pH 7.44 H ABG pCO2 58 H* ABG pO2 89 ABG HCO3 39 H ABG O2 Content 13.7 ABG Base Excess 13.7 H ABG Methemoglobin 1.2 Krishna Test Present Hemoglobin 10.2 L Carboxyhemoglobin 1.5 O2 Delivery Device Ventilator Vent Setting Cpap 12/7 Inspired O2 35 Critical Value Yes Sodium 151 H Potassium 4.1 Chloride 107 Carbon Dioxide 36.4 H Anion Gap 8 BUN 53 H Creatinine 1.04 Estimated GFR 69 L POC Glucose 253 H Random Glucose 189 H Calcium 7.8 L Phosphorus 3.5 Magnesium 2.4 Total Bilirubin 0.6 AST 57 H ALT 59 Alkaline Phosphatase 115 Troponin I Total Protein 5.3 L Albumin 2.3 L Stl C.difficile Tox PCR St C. diff Tox Epid 027 Vancomycin Trough Result Diagrams: 12/25/17 05:27 12/25/17 05:27 Microbiology: Microbiology 12/19/17 21:20 Aerobic Blood Culture - Final Blood - Peripheral No growth in 5 days Anaerobic Blood Culture - Final No growth in 5 days 12/19/17 21:30 Aerobic Blood Culture - Final Blood - Peripheral No growth in 5 days Anaerobic Blood Culture - Final No growth in 5 days Imaging: Impressions Chest X-Ray 12/24/17 06:00 CONCLUSION: No significant interval change. Left-sided pleural effusion and mild bilateral parenchymal opacity again seen. Chest X-Ray 12/25/17 06:00 CONCLUSION: No significant change. Assessment and Plan - Disease Oriented Problem List (1) COPD (chronic obstructive pulmonary disease) (2) CHF (congestive heart failure) (3) Respiratory distress (4) Sepsis (5) HCAP (healthcare-associated pneumonia) (6) NAHED (acute kidney injury) (7) Pulmonary hypertension (8) S/P lobectomy of lung Pertinent Non-Medical Issues: Psychosocial: Retired. Lived in [place] most of his life-- originally from [place], then moved to [place], then to [place]. 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 Supported by , 4 daughters, other extended family. Spiritual:sabianism, sister providing spiritual care Legal:Patient unable to participate due to clinical condition. There is some question of underlying cognitive deficits. His would be appropriate legal decision maker. She is making decisions supported by the rest of the family, daughters, sister are very involved in his care in decision-making Ethical issues impacting care:no ethical issues identified Important Contacts: Sunshine Davenport [phone] Prognosis: This 82-year-old patient is currently hospitalized due to severe sepsis, with respiratory failure. He has multiple chronic comorbidities. 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 He also has underlying COPD, pulmonary fibrosis, prior lobectomy. Overall poor prognosis for survival from current acute issues. Code Status: Full Code Plan: * Legal decision maker: Patient unable to participate due to clinical condition. There is some question of underlying cognitive deficits. His would be appropriate legal decision maker. She is making decisions supported by the rest of the family, daughters, sister are very involved in his care in decision-making * Goals: aggressive goals; patient would want to continue ongoing aggressive treatments to improve his condition, including full code. We have reviewed the potential to require tracheostomy for long-term ventilation , family feels confident patient will be able to wean off of mechanical vent and go home. * CODE STATUS: Full code * SYMPTOMS: --Dyspnea-admitted for shortness of breath. Desaturation reported at home. Urgently intubated upon arrival to ICU. CXR indicative right lower lung probable pneumonia. On broad-spectrum antibiotics. Cultures pending. Currently breathing comfortably on mechanical vent. Family wishes to minimize sedation as much as possible though they also want him to be comfortable if possible. tolerating CPAP 5-6 hrs. --Pain-family endorses a day to day at home patient did not endorse any pain. He is status post hip repair last month. Has been essentially bedbound since that time, potential sources would include recent hip surgery, as well as prolonged bedbound status and recent invasive procedures. Had been on Versed 2 mg, fentanyl 50 mics an hour, with occasional episodes of restlessness. This has been off since yesterday, per family request. Appears to be soothed by family . will continue to monitor. Patient family verbalizes wishing to minimize sedation as much as possible. Family endorses they do not believe pt is painful or anxious today. * Palliative care will continue to follow during hospital course as condition evolves, to assist patient/decision-maker with understanding of medical conditions, weighing benefits/burdens of treatment options, for clarification of goals of treatment. Additionally will assist with any symptoms of palliative concern Attestation Attestation: To help prompt me to consider important information that might be impacting today's encounter and assessment, information from prior notes written by myself or my colleagues may have been "brought forward" into today's note. My signature on this note, however, is an attestation that I personally performed the exam, history, and/or decision-making noted today, and, unless otherwise indicated, the interactions with patient, family, and staff as well as the review of records all occurred today. I also attest that the listed assessment and stated plan reflect my best clinical judgment today based on the combination of historical information, prior notes, and today's exam/ interactions. When time spent is documented, it refers only to time spent today by the signer, or if indicated, combined time spent today by collaborating physician/nurse practitioner.
[2017-12-25] MEDS: Vancomycin Inj 1,250 MG in Sodium Chlor 0.9% Inj 250 ML IV.SIG SCH (23:39)
[2017-12-26 01:09] LABS: Hematocrit 31.5 % (39.0-51.0); Hemoglobin 10.3 gm/dL (13.0-17.0); Mean Corpuscular HGB Conc 32.7 % (32.0-36.0); Mean Corpuscular Hemoglobin 29.9 pg (27.0-34.0); Mean Corpuscular Volume 91.3 fL (80.0-100.0); Mean Platelet Volume 9.6 fL (7.0-11.0); Platelet Count 120 th/mm3 (150-450); Red Blood Count 3.45 mil/mm3 (4.50-5.90); Red Cell Distribution Width 14.7 % (11.6-17.2)
[2017-12-26 01:19] LABS: INR 1.2 Ratio
[2017-12-26] MEDS: Insulin NovoLOG Aspart Correctional Sugar Inj SQ SCH ×5 (01:38→23:14)
[2017-12-26] MEDS: Oral Hygiene Kit OROPHARYNG SCH ×5 (01:38→23:14)
[2017-12-26] MEDS: Azithromycin Inj 500 MG in Sodium Chlor 0.9% Inj 250 ML IV.SIG SCH (01:38)
[2017-12-26] MEDS: Piperacil/Tazo 4.5 GM Premix 4.5 GM/100 ML BAG IV.SIG SCH ×4 (01:39→22:29)
[2017-12-26 02:13] LABS: Calcium 7.6 mg/dL (8.5-10.1); Carbon Dioxide 36.1 meq/L (21.0-32.0); Magnesium 2.4 mg/dL (1.5-2.5); Potassium 4.2 meq/L (3.5-5.1)
[2017-12-26 02:14] LABS: Albumin 2.3 g/dL (3.4-5.0); Anion Gap 8 meq/L (5-15); Aspartate Aminotransferase 58 U/L (15-37); Blood Urea Nitrogen 52 mg/dL (7-18); Calcium 7.6 mg/dL (8.5-10.1); Carbon Dioxide 35.6 meq/L (21.0-32.0); Chloride 107 meq/L (98-107); Glomerular Filtration Rate 64 mL/min (>89); Glucose,Random 220 mg/dL (74-106); Magnesium 2.4 mg/dL (1.5-2.5); Potassium 4.2 meq/L (3.5-5.1); Sodium 151 meq/L (136-145)
[2017-12-26 02:15] LABS: Alanine Aminotransferase 62 U/L (12-78); Phosphorus 4.2 mg/dL (2.5-4.9)
[2017-12-26 02:17] LABS: Alkaline Phosphatase 120 U/L (45-117); Total Protein 5.6 g/dL (6.4-8.2); Troponin I 0.06 ng/mL (0.02-0.05)
--- NOTE | 2017-12-26 07:36 | P.PNCC ---
Subjective Subjective Remarks/Hospital Course: 82-year-old male with past medical history of COPD and CHF presents for an evaluation of shortness of breath and hypoxemia worsening over past few days. The nebulizer treatments helped initially however today there were not helpful. EMS reports on scene the O2 sat was in the 80s. He received high flow oxygen and nebulized albuterol in route here. His blood pressure initially in the emergency department was 200/100 however trended down to about 160/90. BiPAP was started in the emergency department with improvement in his O2 sat that has trended towards the high 90s with 100% FiO2 on BiPAP. Shortly after transfer to ICU the patient continues to to be more hypoxemic and restless requiring endotracheal intubation and mechanical ventilation. 12/20: intubated and sedated. still hypercarbic with [id number] respiratory acidosis. family unhappy that patient was intubated: they insisted last night on being a Full Code, but apparently the daughter required that she be notified of exactly what SpO2 the patient was at, and it had to reach a certain low level before she would be ok with intubation. Per overnight records , patient presented with severe respiratory distress, and family reports that EMS stated patient "wouldn't make it all the way to [facility]" due to his pulmonary instability. This morning, hypoxia is somewhat improved. remains on broad spectrum antibiotics. I explained to family that this is likely a new pneumonia causing respiratory failure. I also explained that after recent hip fracture and recent prolonged hospitalization, his baseline end-stage lung disease and NYHA Class IV symptoms are likely to worsen, and this may be worsening of his overall end-stage disease processes. Family continues to state that our facility caused his lung failure during the prior hospitalization. They are also concerned about his poor peripheral perfusion and oliguria, which concerns me also: I explained that his heart failure could not tolerate significant amount of iv fluids, and we have already given him 1500mL over the last 12 hours, but they have insisted on additional iv fluids. I explained he had severe sepsis and the mortality associated with this. Daughter continues to remind me that her father "is coming home with her and getting better" as she has stated multiple times in the past. 12/21: no improvements. remains intubated. clinically becoming volume overloaded - will be forced to start diuresis. 12/22: mental status slightly improved. still failing weaning attempts. 12/23: Afebrile. Currently on PSV trial 15/7 at 45%. Discussed with and daughter at bedside. Chest x-ray revealed ET tube at [place]. Retracted 1 cm. Tolerating tube feeds with family requested 40 cc an hour. Subjective: 12/24: Afebrile. Currently CPAP trial FiO2 at 45%. Tolerating tube feeds if family requested 40 cc an hour. Receiving morphine 1-2 mg every 4 hours as needed pain. 12/25 No events overnight remains intubated off sedation. Tolerated CPAP for several hrs yesterday. Afebrile. 12/26 No events overnight. Patient tolerated CPAP for most of day yesterday. Awake and alert follows commands, on no sedation. Objective Vital Signs / I&O: Vital Signs 12/25/17 08:00 12/25/17 08:06 12/25/17 10:00 Temperature 98.1 F Pulse Rate 85 84 86 Respiratory Rate 21 18 Blood Pressure 139/60 Pulse Oximetry 97 96 12/25/17 11:08 12/25/17 12:00 12/25/17 14:00 Temperature 98 F Pulse Rate 87 80 86 Respiratory Rate 27 H 22 Blood Pressure 170/68 H Pulse Oximetry 97 96 12/25/17 15:33 12/25/17 16:00 12/25/17 18:00 Temperature 98.2 F Pulse Rate 81 82 77 Respiratory Rate 23 23 Blood Pressure 118/57 L Pulse Oximetry 96 97 12/25/17 19:30 12/25/17 19:47 12/25/17 20:00 Temperature 98.7 F Pulse Rate 84 85 Respiratory Rate 24 23 25 H Blood Pressure 136/59 L Pulse Oximetry 96 96 12/25/17 22:00 12/25/17 22:40 12/25/17 23:21 Temperature Pulse Rate 80 81 Respiratory Rate 22 23 Blood Pressure Pulse Oximetry 96 12/26/17 00:00 12/26/17 01:11 12/26/17 02:00 Temperature 98.9 F Pulse Rate 84 87 Respiratory Rate 18 26 H Blood Pressure 120/58 L Pulse Oximetry 96 96 12/26/17 03:48 12/26/17 04:00 12/26/17 04:20 Temperature 98.6 F Pulse Rate 85 86 Respiratory Rate 20 18 19 Blood Pressure 107/59 L Pulse Oximetry 98 98 12/26/17 06:00 Temperature Pulse Rate 84 Respiratory Rate Blood Pressure Pulse Oximetry Intake & Output 12/25/17 12/26/17 12/26/17 18:59 06:59 18:59 Intake Total 963 / 963 600 / 600 613 / 613 Output Total 900 / 900 350 / 350 Balance 63 / 63 250 / 250 613 / 613 Weight 72.5 kg Intake: IV 200 / 200 100 / 100 613 / 613 Azithromycin Inj 500 MG In NS 250 / 250 Inj 250 ML @ 250 mls/hr IV.SIG Q24H NOAH Rx#:[id number] Zosyn 4.5 GM Premix 4.5 gm In 200 / 200 100 / 100 100 / 100 100 ml @ 200 mls/hr IV.SIG Q6H NOAH Rx#:[id number] Vancomycin Inj 1,250 MG In NS 263 / 263 Inj 250 ML @ 250 mls/hr IV.SIG Q24H NOAH Rx#:[id number] Tube Feeding 263 / 263 Water Bolus Amount 500 / 500 500 / 500 Output: Urine Amount (Catheter) 900 / 900 350 / 350 Condom 900 / 900 350 / 350 Other: Date of Last Bowel Movement 12/26/17 # Bowel Movements 5 1 Result Diagrams: 12/26/17 01:02 12/26/17 01:02 Other Results: Laboratory Results - last 12 hr 12/25/17 12/26/17 12/26/17 23:52 01:02 01:02 WBC 11.0 RBC 3.45 L Hgb 10.3 L Hct 31.5 L MCV 91.3 MCH 29.9 MCHC 32.7 RDW 14.7 Plt Count 120 L MPV 9.6 PT 12.0 H INR 1.2 Sodium Potassium Chloride Carbon Dioxide Anion Gap BUN Creatinine Estimated GFR POC Glucose 191 H Random Glucose Calcium Phosphorus Magnesium Total Bilirubin AST ALT Alkaline Phosphatase Troponin I Total Protein Albumin 12/26/17 12/26/17 12/26/17 01:02 01:02 06:14 WBC RBC Hgb Hct MCV MCH MCHC RDW Plt Count MPV PT INR Sodium 151 H 151 H Potassium 4.2 4.2 Chloride 107 107 Carbon Dioxide 35.6 H 36.1 H Anion Gap 8 8 BUN 52 H 53 H Creatinine 1.11 1.10 Estimated GFR 64 L 64 L POC Glucose 248 H Random Glucose 220 H 221 H Calcium 7.6 L 7.6 L Phosphorus 4.2 Magnesium 2.4 2.4 Total Bilirubin 0.7 AST 58 H ALT 62 Alkaline Phosphatase 120 H Troponin I 0.06 H Total Protein 5.6 L Albumin 2.3 L Imaging: Chest X-Ray 12/25/17 06:00 CONCLUSION: No significant change. Objective Remarks: GENERAL: 82-year-old male currently orotracheally intubated and resting in bed HEENT: Normocephalic. Atraumatic. Pupils equal, round, reactive, conjugate. Mucous membranes are moist NECK: Trachea is midline. negative jvd. CHEST: Fine rales in the right lower lobe. Rhonchi in the right upper. Prolonged expiratory time. No wheezing. CARDIOVASCULAR: Normal rate, regular rhythm. S1, S2. No S4 ABDOMEN: Soft, nontender, nondistended. No guarding. MUSCULOSKELETAL: Pulses 2+. No peripheral edema. No mottling NEUROLOGICAL: Arousable and follows commands. Moves all 4 extremities spontaneously. 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 SBT daily as jeanne and possible extubation today Methylprednisolone succinate 40 mg IV Q12 Pulmonary is following- Dr. 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 Normal left ventricular size. Wall thickness is normal. No regional wall motion abnormalities are present. Diffuse calcification of the aortic valve but no significant stenosis. There is mild to moderate tricuspid valve regurgitation. The estimated pulmonary arterial pressure is 76.9 mmHg with severe pulmonary hypertension. Continue furosemide 40 mg daily/home medication As needed labetalol and Nitropaste for hypertension Renal/: Acute kidney injury History of nephrolithiasis Monitor renal function, I/O's, electrolytes replacement per protocol. Straight cath every 6 hours. On Lasix 40mg daily FEN/GI: Severe acute protein calorie malnutrition Hypernatremia OG tube feeds at 40 cc an hour Glucerna 1.5 Lansoprazole for GI prophylaxis Docusate sodium/senna 1 tablet twice daily for bowel regimen Increase Free water 250ml Q4 Heme/ID: Healthcare associated pneumonia Severe sepsis- present on admission Normocytic anemia Thrombocytopenia Vancomycin with pharmacy consultation, piperacillin/tazobactam and azithromycin since 12/19. Sputum culture 12/20- Blood cultures 12/19 no growth Urine UA with urine culture 12/20-NGTD Negative Legionella and pneumococcal urinary antigens Monitor CBC daily and follow trends. No indication for transfusion of blood products at this time Endocrine: Hyperglycemia of critical illness -- SSI to maintain euglycemia with aspart insulin every 6 hours high. insulin detemir 5 twice daily MSK:: History of left IT nailing 11/14 Vitamin D deficiency PT evaluate and treat Prophylaxis: GI Prophylaxis Lansoprazole DVT Prophylaxis -- SCDs Enoxaparin Lines: Peripheral IVs Had extensive discussion with family yesterday and updated them on his condition Level 3
[2017-12-26] MEDS: Chlorhexidine 0.12% Oral Kit 15 ML UDC OROPHARYNG SCH ×2 (08:01→22:29)
[2017-12-26] MEDS: Enoxaparin Inj 40 MG/0.4 ML Syringe SQ SCH (08:01)
[2017-12-26] MEDS: Furosemide 40 MG Tablet PO SCH (08:01)
[2017-12-26] MEDS: MethylPREDNISolone Sod Succinate Inj 40 MG/ML Vial IV.PUSH SCH ×2 (08:02→22:30)
[2017-12-26] MEDS: Insulin Detemir Inj 1,000 UNIT/10 ML Vial SQ SCH ×2 (08:02→22:29)
[2017-12-26] MEDS: Carboxymethylcellulose 0.5% Opth Drops 15 ML Bottle EACH EYE SCH ×2 (08:02→22:30)
[2017-12-26 09:26] LABS: ABG Base Excess 10.8 mmol/L (-2-2); ABG PCO2 54 mmHg (38-42); ABG PO2 87 mmHG (61-120)
--- NOTE | 2017-12-26 09:33 | ECG ---
Date Performed: 12/26/2017 Time Performed: 00:47:12 PTAGE: 82 years EKG: Sinus rhythm with PAC(s). Septal T wave changes are nonspecific Borderline ECG Compared to prior electrocardiogra m, rate has decreased . DOCTOR: Roshan Alonzo Interpretating Date/Time 12/26/2017 09:32:06
[2017-12-26] MEDS: Budesonide-Formoterol 160/4.5 MCG 6 GM Inhaler INH SCH ×2 (11:01→22:30)
[2017-12-26] MEDS ORDERED: Pharmacy Ordered Lab Info OTHER ONE (22:45)
[2017-12-26] MEDS: Acetaminophen 325 MG Tablet PO PRN (23:08)
[2017-12-26 23:27] LABS: Hematocrit 31.9 % (39.0-51.0); Hemoglobin 10.2 gm/dL (13.0-17.0); Mean Corpuscular HGB Conc 32.1 % (32.0-36.0); Mean Corpuscular Hemoglobin 29.2 pg (27.0-34.0); Mean Corpuscular Volume 91.1 fL (80.0-100.0); Mean Platelet Volume 9.6 fL (7.0-11.0); Platelet Count 111 th/mm3 (150-450); Red Cell Distribution Width 14.5 % (11.6-17.2); White Blood Count 11.7 th/mm3 (4.0-11.0)
[2017-12-26 23:37] LABS: INR 1.2 Ratio; Prothrombin Time 11.7 sec (9.8-11.6)
[2017-12-27 00:02] LABS: Albumin 2.2 g/dL (3.4-5.0); Calcium 6.9 mg/dL (8.5-10.1); Carbon Dioxide 34.7 meq/L (21.0-32.0); Magnesium 2.2 mg/dL (1.5-2.5); Phosphorus 4.1 mg/dL (2.5-4.9); Potassium 3.5 meq/L (3.5-5.1); Total Protein 5.5 g/dL (6.4-8.2); Vancomycin,Trough 21.6 mcg/mL (5.0-10.0)
[2017-12-27] MEDS: Vancomycin Inj 1,250 MG in Sodium Chlor 0.9% Inj 250 ML IV.SIG SCH (00:13)
[2017-12-27] MEDS ORDERED: Calcium Gluconate Inj 1 GM in Sodium Chlor 0.9% Inj 100 ML IV.SIG ONE (00:51)
[2017-12-27] MEDS: Piperacil/Tazo 4.5 GM Premix 4.5 GM/100 ML BAG IV.SIG SCH ×4 (03:59→20:00)
[2017-12-27] MEDS: Oral Hygiene Kit OROPHARYNG SCH ×4 (03:59→23:59)
[2017-12-27] MEDS: Azithromycin Inj 500 MG in Sodium Chlor 0.9% Inj 250 ML IV.SIG SCH (03:59)
[2017-12-27] MEDS: Insulin NovoLOG Aspart Correctional Sugar Inj SQ SCH ×4 (05:48→23:59)
--- NOTE | 2017-12-27 07:46 | P.PNCC ---
Subjective Subjective Remarks/Hospital Course: 82-year-old male with past medical history of COPD and CHF presents for an evaluation of shortness of breath and hypoxemia worsening over past few days. The nebulizer treatments helped initially however today there were not helpful. EMS reports on scene the O2 sat was in the 80s. He received high flow oxygen and nebulized albuterol in route here. His blood pressure initially in the emergency department was 200/100 however trended down to about 160/90. BiPAP was started in the emergency department with improvement in his O2 sat that has trended towards the high 90s with 100% FiO2 on BiPAP. Shortly after transfer to ICU the patient continues to to be more hypoxemic and restless requiring endotracheal intubation and mechanical ventilation. 12/20: intubated and sedated. still hypercarbic with [id number] respiratory acidosis. family unhappy that patient was intubated: they insisted last night on being a Full Code, but apparently the daughter required that she be notified of exactly what SpO2 the patient was at, and it had to reach a certain low level before she would be ok with intubation. Per overnight records , patient presented with severe respiratory distress, and family reports that EMS stated patient "wouldn't make it all the way to [facility]" due to his pulmonary instability. This morning, hypoxia is somewhat improved. remains on broad spectrum antibiotics. I explained to family that this is likely a new pneumonia causing respiratory failure. I also explained that after recent hip fracture and recent prolonged hospitalization, his baseline end-stage lung disease and NYHA Class IV symptoms are likely to worsen, and this may be worsening of his overall end-stage disease processes. Family continues to state that our facility caused his lung failure during the prior hospitalization. They are also concerned about his poor peripheral perfusion and oliguria, which concerns me also: I explained that his heart failure could not tolerate significant amount of iv fluids, and we have already given him 1500mL over the last 12 hours, but they have insisted on additional iv fluids. I explained he had severe sepsis and the mortality associated with this. Daughter continues to remind me that her father "is coming home with her and getting better" as she has stated multiple times in the past. 12/21: no improvements. remains intubated. clinically becoming volume overloaded - will be forced to start diuresis. 12/22: mental status slightly improved. still failing weaning attempts. 12/23: Afebrile. Currently on PSV trial 15/7 at 45%. Discussed with and daughter at bedside. Chest x-ray revealed ET tube at [place]. Retracted 1 cm. Tolerating tube feeds with family requested 40 cc an hour. Subjective: 12/24: Afebrile. Currently CPAP trial FiO2 at 45%. Tolerating tube feeds if family requested 40 cc an hour. Receiving morphine 1-2 mg every 4 hours as needed pain. 12/25 No events overnight remains intubated off sedation. Tolerated CPAP for several hrs yesterday. Afebrile. 12/26 No events overnight. Patient tolerated CPAP for most of day yesterday. Awake and alert follows commands, on no sedation. 12/27 Patient was extubated yesterday on 4L oxygen. Awake. Afebrile. Objective Vital Signs / I&O: Vital Signs 12/26/17 07:54 12/26/17 08:00 12/26/17 10:00 Temperature 98.8 F Pulse Rate 85 84 Respiratory Rate 26 H 24 Blood Pressure 145/65 H Pulse Oximetry 93 L 93 L 12/26/17 11:00 12/26/17 12:00 12/26/17 14:00 Temperature 97.7 F Pulse Rate 84 82 91 H Respiratory Rate 18 25 H Blood Pressure 144/65 H Pulse Oximetry 98 12/26/17 15:00 12/26/17 16:00 12/26/17 18:00 Temperature 98.0 F Pulse Rate 87 89 91 H Respiratory Rate 18 27 H Blood Pressure 134/63 Pulse Oximetry 97 12/26/17 19:55 12/26/17 20:00 12/26/17 22:00 Temperature 98.6 F Pulse Rate 86 87 89 Respiratory Rate 22 29 H Blood Pressure 139/63 Pulse Oximetry 100 99 12/26/17 23:44 12/27/17 00:00 12/27/17 02:00 Temperature 98.2 F Pulse Rate 81 85 85 Respiratory Rate 20 30 H Blood Pressure 130/61 Pulse Oximetry 97 12/27/17 04:00 12/27/17 04:45 12/27/17 06:00 Temperature 98.9 F Pulse Rate 79 85 80 Respiratory Rate 29 H 24 Blood Pressure 127/62 Pulse Oximetry 99 Intake & Output 12/26/17 12/27/17 12/27/17 18:59 06:59 18:59 Intake Total 1293 / 1293 500 / 500 Output Total 550 / 550 300 / 300 Balance 743 / 743 200 / 200 Weight 74 kg Intake: IV 813 / 813 200 / 200 Azithromycin Inj 500 MG In NS 250 / 250 Inj 250 ML @ 250 mls/hr IV.SIG Q24H NOAH Rx#:[id number] Zosyn 4.5 GM Premix 4.5 gm In 300 / 300 200 / 200 100 ml @ 200 mls/hr IV.SIG Q6H NOAH Rx#:[id number] Vancomycin Inj 1,250 MG In NS 263 / 263 Inj 250 ML @ 250 mls/hr IV.SIG Q24H NOAH Rx#:[id number] Oral 480 / 480 300 / 300 Output: Urine 300 / 300 Urine Amount (Catheter) 550 / 550 Condom 550 / 550 Other: # Voids 2 2 Date of Last Bowel Movement 12/26/17 12/26/17 # Bowel Movements 5 0 Result Diagrams: 12/26/17 23:14 12/26/17 23:14 Other Results: Laboratory Results - last 12 hr 12/26/17 12/26/17 12/26/17 23:13 23:14 23:14 WBC 11.7 H RBC 3.50 L Hgb 10.2 L Hct 31.9 L MCV 91.1 MCH 29.2 MCHC 32.1 RDW 14.5 Plt Count 111 L MPV 9.6 PT 11.7 H INR 1.2 Sodium Potassium Chloride Carbon Dioxide Anion Gap BUN Creatinine Estimated GFR POC Glucose 162 H Random Glucose Calcium Prot Corrected Calcium Phosphorus Magnesium Total Bilirubin AST ALT Alkaline Phosphatase Total Protein Albumin Vancomycin Trough 12/26/17 12/27/17 23:14 05:31 WBC RBC Hgb Hct MCV MCH MCHC RDW Plt Count MPV PT INR Sodium 142 Potassium 3.5 Chloride 99 D Carbon Dioxide 34.7 H Anion Gap 8 BUN 44 H Creatinine 1.07 Estimated GFR 66 L POC Glucose 221 H Random Glucose 157 H Calcium 6.9 L* Prot Corrected Calcium 7.7 L Phosphorus 4.1 Magnesium 2.2 Total Bilirubin 0.6 AST 37 ALT 56 Alkaline Phosphatase 119 H Total Protein 5.5 L Albumin 2.2 L Vancomycin Trough 21.6 H Imaging: Chest X-Ray 12/25/17 06:00 CONCLUSION: No significant change. Objective Remarks: GENERAL: 82-year-old male currently orotracheally intubated and resting in bed HEENT: Normocephalic. Atraumatic. Pupils equal, round, reactive, conjugate. Mucous membranes are moist NECK: Trachea is midline. No JVD, CHEST: B/l equal air entry CARDIOVASCULAR: Normal rate, regular rhythm. S1, S2. No S4 ABDOMEN: Soft, nontender, nondistended. No guarding. MUSCULOSKELETAL: Pulses 2+. No peripheral edema. No mottling NEUROLOGICAL: Awake, alert Assessment and Plan - Assessment and Plan Plan: Neuro/Psych: Acute metabolic encephalopathy Awake and follows commands. 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 Normal left ventricular size. Wall thickness is normal. No regional wall motion abnormalities are present. Diffuse calcification of the aortic valve but no significant stenosis. There is mild to moderate tricuspid valve regurgitation. The estimated pulmonary arterial pressure is 76.9 mmHg with severe pulmonary hypertension. Continue furosemide 40 mg daily/home medication As needed labetalol and Nitropaste for hypertension Renal/: Acute kidney injury History of nephrolithiasis Monitor renal function, I/O's, electrolytes replacement per protocol. On Lasix 40mg daily FEN/GI: Severe acute protein calorie malnutrition Hypernatremia On PO diet Lansoprazole for GI prophylaxis Docusate sodium/senna 1 tablet twice daily for bowel regimen Heme/ID: Healthcare associated pneumonia Severe sepsis- present on admission Normocytic anemia Thrombocytopenia On Vanco, piperacillin/tazobactam and azithromycin since 12/20 , d/c vanco Sputum culture 12/20-[facility] resp vaishnavi Blood cultures 12/19 no growth Urine UA with urine culture 12/20-NGTD Negative Legionella and pneumococcal urinary antigens Monitor CBC daily and follow trends. No indication for transfusion of blood products at this time Endocrine: Hyperglycemia of critical illness -- SSI to maintain euglycemia with aspart insulin every 6 hours high. insulin detemir 5 twice daily MSK:: History of left IT nailing 11/14 Vitamin D deficiency PT evaluate and treat Prophylaxis: GI Prophylaxis Lansoprazole DVT Prophylaxis -- SCDs Enoxaparin Lines: Peripheral IVs Had extensive discussion with family yesterday and updated them on his condition Level 3
[2017-12-27] MEDS: Insulin Detemir Inj 1,000 UNIT/10 ML Vial SQ SCH ×2 (08:57→22:42)
[2017-12-27] MEDS: Furosemide 40 MG Tablet PO SCH (08:57)
[2017-12-27] MEDS: Enoxaparin Inj 40 MG/0.4 ML Syringe SQ SCH (08:57)
[2017-12-27] MEDS: Chlorhexidine 0.12% Oral Kit 15 ML UDC OROPHARYNG SCH ×2 (08:57→22:41)
[2017-12-27] MEDS: Carboxymethylcellulose 0.5% Opth Drops 15 ML Bottle EACH EYE SCH ×2 (08:58→22:42)
[2017-12-27] MEDS: MethylPREDNISolone Sod Succinate Inj 40 MG/ML Vial IV.PUSH SCH (08:58)
[2017-12-27] MEDS: Budesonide-Formoterol 160/4.5 MCG 6 GM Inhaler INH SCH ×2 (08:58→22:42)
[2017-12-27 09:12] LABS: Baso % (Auto) 0.1 % (0.0-2.0); Eos % (Auto) 0.3 % (0.0-4.0); Hematocrit 32.1 % (39.0-51.0); Hemoglobin 10.4 gm/dL (13.0-17.0); Lymph # (Auto) 0.6 th/mm3 (1.0-4.8); Lymph % (Auto) 5.5 % (9.0-44.0); Mean Corpuscular HGB Conc 32.4 % (32.0-36.0); Mean Corpuscular Hemoglobin 29.8 pg (27.0-34.0); Mean Corpuscular Volume 91.9 fL (80.0-100.0); Mean Platelet Volume 9.9 fL (7.0-11.0); Mono # (Auto) 0.8 th/mm3 (0.0-0.9); Mono % (Auto) 7.2 % (0.0-8.0); Neut # (Auto) 9.8 th/mm3 (1.8-7.7); Neut % (Auto) 86.9 % (16.0-70.0); Platelet Count 107 th/mm3 (150-450); Red Cell Distribution Width 14.6 % (11.6-17.2); White Blood Count 11.3 th/mm3 (4.0-11.0)
[2017-12-27 09:30] LABS: Alanine Aminotransferase 54 U/L (12-78); Albumin 2.3 g/dL (3.4-5.0); Alkaline Phosphatase 117 U/L (45-117); Anion Gap 8 meq/L (5-15); Aspartate Aminotransferase 33 U/L (15-37); Blood Urea Nitrogen 41 mg/dL (7-18); Calcium 7.8 mg/dL (8.5-10.1); Carbon Dioxide 34.2 meq/L (21.0-32.0); Chloride 100 meq/L (98-107); Glomerular Filtration Rate 66 mL/min (>89); Glucose,Random 172 mg/dL (74-106); Magnesium 2.2 mg/dL (1.5-2.5); Phosphorus 4.2 mg/dL (2.5-4.9); Potassium 3.7 meq/L (3.5-5.1); Sodium 142 meq/L (136-145); Total Protein 5.5 g/dL (6.4-8.2)
--- NOTE | 2017-12-27 15:23 | P.DIET ---
Nutritional Evaluation Type of nutrition evaluation: follow-up Nutrition consult regarding: Tube Feeding Subjective Oral Diet Tolerance Assessment Indicates: Edentulous Subjective Comments: Pt does not wear dentures at home Objective - Diagnosis Sepsis, PNA, COPD Exacerbation, CHF - Objective % IBW: 116 (IBW = 118#) Body Weight Used for Calculations: Actual (62 kg) Energy Needs - Lower Range (kCal/kg): 25 Energy Needs - Upper Range (kCal/kg): 30 Lower Limit kCal/kg (kCals): 1,550 Upper Limit kCal/kg (kCals): 1,860 Lower Limit Protein Factor (Grams per Kg): 1.0 Upper Limit Protein Factor (Grams per Kg): 1.5 Lower Protein Needs (Protein): 62 Upper Protein Needs (Protein): 93 Dietitian Reviewed in Medical Record: Current diet, Curent medications, Intake & Output, Labs, Medical history, Tube feeding Diet Order: Soft thin liquids Oral Diet Intake Amount: Good 75-90% Speech Therapy Recommendations: Yes (Soft thin liquids) Objective Comments: 12/26 extubated Assessment Assessment: Pt at nutritional risk r/t need for TF'ing. Pt extubated 12/26 and diet advanced per ST. Pt tolerating po diet w/100% po intake for meals today. Please Consult RD if Needed. Recommendations: Please Consult RD if Needed
[2017-12-27] MEDS: Acetaminophen 325 MG Tablet PO PRN (15:34)
[2017-12-28] MEDS: Piperacil/Tazo 4.5 GM Premix 4.5 GM/100 ML BAG IV.SIG SCH (03:57)
[2017-12-28] MEDS: Azithromycin Inj 500 MG in Sodium Chlor 0.9% Inj 250 ML IV.SIG SCH (03:57)
[2017-12-28] MEDS: Oral Hygiene Kit OROPHARYNG SCH ×3 (04:59→15:45)
[2017-12-28] MEDS: Insulin NovoLOG Aspart Correctional Sugar Inj SQ SCH ×3 (06:51→18:54)
[2017-12-28 06:54] LABS: Baso % (Auto) 0.1 % (0.0-2.0); Eos # (Auto) 0.2 th/mm3 (0.0-0.4); Hematocrit 31.7 % (39.0-51.0); Hemoglobin 10.6 gm/dL (13.0-17.0); Lymph # (Auto) 0.8 th/mm3 (1.0-4.8); Lymph % (Auto) 8.9 % (9.0-44.0); Mean Corpuscular HGB Conc 33.6 % (32.0-36.0); Mean Corpuscular Hemoglobin 30.5 pg (27.0-34.0); Mean Corpuscular Volume 90.9 fL (80.0-100.0); Mean Platelet Volume 9.8 fL (7.0-11.0); Mono # (Auto) 0.7 th/mm3 (0.0-0.9); Mono % (Auto) 7.9 % (0.0-8.0); Neut # (Auto) 7.7 th/mm3 (1.8-7.7); Neut % (Auto) 81.1 % (16.0-70.0); Platelet Count 105 th/mm3 (150-450); Red Blood Count 3.49 mil/mm3 (4.50-5.90); Red Cell Distribution Width 14.2 % (11.6-17.2); White Blood Count 9.5 th/mm3 (4.0-11.0)
--- NOTE | 2017-12-28 07:10 | P.PNCC ---
Subjective Subjective Remarks/Hospital Course: 82-year-old male with past medical history of COPD and CHF presents for an evaluation of shortness of breath and hypoxemia worsening over past few days. The nebulizer treatments helped initially however today there were not helpful. EMS reports on scene the O2 sat was in the 80s. He received high flow oxygen and nebulized albuterol in route here. His blood pressure initially in the emergency department was 200/100 however trended down to about 160/90. BiPAP was started in the emergency department with improvement in his O2 sat that has trended towards the high 90s with 100% FiO2 on BiPAP. Shortly after transfer to ICU the patient continues to to be more hypoxemic and restless requiring endotracheal intubation and mechanical ventilation. 12/20: intubated and sedated. still hypercarbic with [id number] respiratory acidosis. family unhappy that patient was intubated: they insisted last night on being a Full Code, but apparently the daughter required that she be notified of exactly what SpO2 the patient was at, and it had to reach a certain low level before she would be ok with intubation. Per overnight records , patient presented with severe respiratory distress, and family reports that EMS stated patient "wouldn't make it all the way to [facility]" due to his pulmonary instability. This morning, hypoxia is somewhat improved. remains on broad spectrum antibiotics. I explained to family that this is likely a new pneumonia causing respiratory failure. I also explained that after recent hip fracture and recent prolonged hospitalization, his baseline end-stage lung disease and NYHA Class IV symptoms are likely to worsen, and this may be worsening of his overall end-stage disease processes. Family continues to state that our facility caused his lung failure during the prior hospitalization. They are also concerned about his poor peripheral perfusion and oliguria, which concerns me also: I explained that his heart failure could not tolerate significant amount of iv fluids, and we have already given him 1500mL over the last 12 hours, but they have insisted on additional iv fluids. I explained he had severe sepsis and the mortality associated with this. Daughter continues to remind me that her father "is coming home with her and getting better" as she has stated multiple times in the past. 12/21: no improvements. remains intubated. clinically becoming volume overloaded - will be forced to start diuresis. 12/22: mental status slightly improved. still failing weaning attempts. 12/23: Afebrile. Currently on PSV trial 15/7 at 45%. Discussed with and daughter at bedside. Chest x-ray revealed ET tube at [place]. Retracted 1 cm. Tolerating tube feeds with family requested 40 cc an hour. Subjective: 12/24: Afebrile. Currently CPAP trial FiO2 at 45%. Tolerating tube feeds if family requested 40 cc an hour. Receiving morphine 1-2 mg every 4 hours as needed pain. 12/25 No events overnight remains intubated off sedation. Tolerated CPAP for several hrs yesterday. Afebrile. 12/26 No events overnight. Patient tolerated CPAP for most of day yesterday. Awake and alert follows commands, on no sedation. 12/27 Patient was extubated yesterday on 4L oxygen. Awake. Afebrile. 12/28 No events overnight. Remains on 4L oxygen. Awake and alert. Objective Vital Signs / I&O: Vital Signs 12/27/17 08:00 12/27/17 08:02 12/27/17 10:00 Temperature 98.1 F Pulse Rate 83 79 Respiratory Rate 28 H Blood Pressure 127/60 Pulse Oximetry 95 95 12/27/17 11:05 12/27/17 12:00 12/27/17 14:37 Temperature 98.4 F Pulse Rate 86 88 18 L Respiratory Rate 18 11 L Blood Pressure 141/65 H Pulse Oximetry 93 L 12/27/17 16:00 12/27/17 18:00 12/27/17 20:00 Temperature 98.5 F Pulse Rate 90 80 82 Respiratory Rate 33 H 26 H Blood Pressure 126/60 139/61 Pulse Oximetry 93 L 97 12/27/17 20:04 12/27/17 22:00 12/28/17 00:00 Temperature 98.6 F Pulse Rate 85 95 H 85 Respiratory Rate 24 29 H Blood Pressure 133/62 Pulse Oximetry 97 99 12/28/17 00:02 12/28/17 02:00 12/28/17 04:00 Temperature 98.3 F Pulse Rate 86 88 90 Respiratory Rate 20 33 H Blood Pressure 120/58 L Pulse Oximetry 95 12/28/17 04:01 12/28/17 06:00 Temperature Pulse Rate 88 89 Respiratory Rate 18 Blood Pressure Pulse Oximetry Intake & Output 12/27/17 12/28/17 12/28/17 18:59 06:59 18:59 Intake Total 500 / 500 930 / 930 Output Total 700 / 700 300 / 300 Balance -200 / -200 630 / 630 Weight 74 kg Intake: IV 200 / 200 450 / 450 Azithromycin Inj 500 MG In NS 250 / 250 Inj 250 ML @ 250 mls/hr IV.SIG Q24H NOAH Rx#:[id number] Zosyn 4.5 GM Premix 4.5 gm In 200 / 200 200 / 200 100 ml @ 200 mls/hr IV.SIG Q6H NOAH Rx#:[id number] Oral 300 / 300 480 / 480 Output: Urine 700 / 700 Urine Amount (Catheter) 300 / 300 Condom 300 / 300 Other: Date of Last Bowel Movement 12/26/17 12/28/17 # Bowel Movements 0 1 Result Diagrams: 12/28/17 05:32 12/28/17 05:32 Other Results: Laboratory Results - last 12 hr 12/27/17 12/28/17 12/28/17 23:37 05:32 06:30 WBC 9.5 RBC 3.49 L Hgb 10.6 L Hct 31.7 L MCV 90.9 MCH 30.5 MCHC 33.6 RDW 14.2 Plt Count 105 L MPV 9.8 Prelim Diff (Auto) Slide review pending Neut % (Auto) 81.1 H Lymph % (Auto) 8.9 L [place] % (Auto) 7.9 Eos % (Auto) 2.0 Baso % (Auto) 0.1 Neut # (Auto) 7.7 Lymph # (Auto) 0.8 L [place] # (Auto) 0.7 Eos # (Auto) 0.2 Baso # (Auto) 0.0 Differential Comment . POC Glucose 167 H 110 Imaging: Chest X-Ray 12/25/17 06:00 CONCLUSION: No significant change. Objective Remarks: GENERAL: 82-year-old male currently orotracheally intubated and resting in bed HEENT: Normocephalic. Atraumatic. Pupils equal, round, reactive, conjugate. Mucous membranes are moist NECK: Trachea is midline. No JVD, CHEST: B/l equal air entry CARDIOVASCULAR: Normal rate, regular rhythm. S1, S2. No S4 ABDOMEN: Soft, nontender, nondistended. No guarding. MUSCULOSKELETAL: Pulses 2+. No peripheral edema. No mottling NEUROLOGICAL: Awake, alert Assessment and Plan - Assessment and Plan Plan: Neuro/Psych: Acute metabolic encephalopathy Awake and follows commands. 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 Normal left ventricular size. Wall thickness is normal. No regional wall motion abnormalities are present. Diffuse calcification of the aortic valve but no significant stenosis. There is mild to moderate tricuspid valve regurgitation. The estimated pulmonary arterial pressure is 76.9 mmHg with severe pulmonary hypertension. Continue furosemide 40 mg daily/home medication As needed labetalol and Nitropaste for hypertension Renal/: Acute kidney injury History of nephrolithiasis Monitor renal function, I/O's, electrolytes replacement per protocol. On Lasix 40mg daily FEN/GI: Severe acute protein calorie malnutrition Hypernatremia On PO diet Lansoprazole for GI prophylaxis Docusate sodium/senna 1 tablet twice daily for bowel regimen Heme/ID: Healthcare associated pneumonia Severe sepsis- present on admission Normocytic anemia Thrombocytopenia On piperacillin/tazobactam and azithromycin since 12/20 , will d/c today. Will d/c abx and observe , patient is afebrile, no evidence of leukocytosis and all previous cultures negative Sputum culture 12/20-shea resp vaishnavi Blood cultures 12/19 no growth Urine UA with urine culture 12/20-NGTD Negative Legionella and pneumococcal urinary antigens Monitor CBC daily and follow trends. No indication for transfusion of blood products at this time Endocrine: Hyperglycemia of critical illness -- SSI to maintain euglycemia with aspart insulin every 6 hours high. insulin detemir 5 twice daily MSK:: History of left IT nailing 11/14 Vitamin D deficiency PT evaluate and treat Prophylaxis: GI Prophylaxis Lansoprazole DVT Prophylaxis -- SCDs Enoxaparin Lines: Peripheral IVs Had extensive discussion with family yesterday and updated them on his condition Will sign off and transfer care to [facility] Level 2
[2017-12-28 07:17] LABS: Alanine Aminotransferase 48 U/L (12-78); Albumin 2.2 g/dL (3.4-5.0); Alkaline Phosphatase 107 U/L (45-117); Anion Gap 8 meq/L (5-15); Aspartate Aminotransferase 35 U/L (15-37); Blood Urea Nitrogen 30 mg/dL (7-18); Calcium 7.6 mg/dL (8.5-10.1); Carbon Dioxide 36.3 meq/L (21.0-32.0); Chloride 96 meq/L (98-107); Glomerular Filtration Rate 74 mL/min (>89); Glucose,Random 116 mg/dL (74-106); Phosphorus 3.3 mg/dL (2.5-4.9); Potassium 3.1 meq/L (3.5-5.1); Sodium 140 meq/L (136-145); Total Protein 5.4 g/dL (6.4-8.2)
[2017-12-28] MEDS ORDERED: Potassium Chlor 40 mEq Premix 40 MEQ/100 ML PIGGYBACK IV.SIG PRN ×2 (08:02)
[2017-12-28] MEDS ORDERED: Potassium Phosphate Inj 30 MMOL in Sodium Chlor 0.9% Inj 250 ML IV.SIG PRN (08:02)
[2017-12-28] MEDS ORDERED: Magnesium Sulfate Inj 2 GM in Sodium Chlor 0.9% Inj 96 ML IV.SIG PRN (08:02)
[2017-12-28] MEDS ORDERED: Magnesium Sulfate Inj 4 GM in Sodium Chlor 0.9% Inj 92 ML IV.SIG PRN (08:02)
[2017-12-28] MEDS ORDERED: Potassium Phosphate 500 MG Soluble Tablet PO PRN (08:02)
[2017-12-28] MEDS ORDERED: Magnesium Oxide 400 MG Tablet PO PRN (08:02)
[2017-12-28] MEDS ORDERED: Sodium Phosphate Inj 30 MMOL in Sodium Chlor 0.9% Inj 250 ML IV.SIG PRN (08:02)
[2017-12-28 08:22] LABS: Eosinophils 2 % (0-4); Lymphocytes 9 % (9-44); Metamyelocytes 2 % (0-1); Monocytes 2 % (0-8); Myelocytes 2 % (0-0); Platelet Morphology Normal (Normal)
[2017-12-28] MEDS: Furosemide 40 MG Tablet PO SCH (08:33)
[2017-12-28] MEDS: Chlorhexidine 0.12% Oral Kit 15 ML UDC OROPHARYNG SCH ×2 (08:33→20:12)
[2017-12-28] MEDS: Budesonide-Formoterol 160/4.5 MCG 6 GM Inhaler INH SCH ×2 (08:34→22:47)
[2017-12-28] MEDS: Insulin Detemir Inj 1,000 UNIT/10 ML Vial SQ SCH ×2 (08:34→20:13)
[2017-12-28] MEDS: Carboxymethylcellulose 0.5% Opth Drops 15 ML Bottle EACH EYE SCH ×2 (08:34→20:13)
[2017-12-28] MEDS: Enoxaparin Inj 40 MG/0.4 ML Syringe SQ SCH (08:34)
[2017-12-28] MEDS ORDERED: MethylPREDNISolone Sod Succinate Inj 40 MG/ML Vial IV.PUSH SCH (09:00)
[2017-12-28] MEDS: Potassium Chlor 20 mEq Premix 20 MEQ/100 ML PIGGYBACK IV.SIG PRN ×4 (11:31→21:21)
--- NOTE | 2017-12-28 13:00 | P.PN ---
Subjective Interval history: Alert and extubated. On O2 4L. Able to eat well. good output. Physical Exam Vital signs: Vital Signs 12/27/17 14:37 12/27/17 16:00 12/27/17 18:00 Temperature Pulse Rate 18 L 90 80 Respiratory Rate 33 H Blood Pressure 126/60 Pulse Oximetry 93 L 12/27/17 20:00 12/27/17 20:04 12/27/17 22:00 Temperature 98.5 F Pulse Rate 82 85 95 H Respiratory Rate 26 H 24 Blood Pressure 139/61 Pulse Oximetry 97 97 12/28/17 00:00 12/28/17 00:02 12/28/17 02:00 Temperature 98.6 F Pulse Rate 85 86 88 Respiratory Rate 29 H 20 Blood Pressure 133/62 Pulse Oximetry 99 12/28/17 04:00 12/28/17 04:01 12/28/17 06:00 Temperature 98.3 F Pulse Rate 90 88 89 Respiratory Rate 33 H 18 Blood Pressure 120/58 L Pulse Oximetry 95 12/28/17 07:55 12/28/17 08:00 12/28/17 10:00 Temperature 98 F Pulse Rate 87 85 87 Respiratory Rate 16 20 Blood Pressure 141/65 H Pulse Oximetry 97 96 12/28/17 11:46 12/28/17 12:00 Temperature 98.4 F Pulse Rate 87 90 Respiratory Rate 33 H 18 Blood Pressure 136/64 Pulse Oximetry 97 Intake & Output 12/27/17 12/28/17 12/28/17 18:59 06:59 18:59 Intake Total 500 / 500 930 / 930 Output Total 700 / 700 300 / 300 Balance -200 / -200 630 / 630 Weight 74 kg Intake: IV 200 / 200 450 / 450 Azithromycin Inj 500 MG In NS 250 / 250 Inj 250 ML @ 250 mls/hr IV.SIG Q24H NOAH Rx#:[id number] Zosyn 4.5 GM Premix 4.5 gm In 200 / 200 200 / 200 100 ml @ 200 mls/hr IV.SIG Q6H NOAH Rx#:[id number] Oral 300 / 300 480 / 480 Output: Urine 700 / 700 Urine Amount (Catheter) 300 / 300 Condom 300 / 300 Other: Date of Last Bowel Movement 12/26/17 12/28/17 12/28/17 # Bowel Movements 0 1 GENERAL: Elderly W/m alert. SKIN: Warm and dry. HEAD: Normocephalic. EYES: No scleral icterus. No injection or drainage. NECK: Supple, trachea midline. No JVD or lymphadenopathy. CARDIOVASCULAR: Irregular rate and rhythm without murmurs, gallops, or rubs. RESPIRATORY: Breath sounds equal bilaterally. Occ basal crackles. No accessory muscle use. GASTROINTESTINAL: Abdomen soft, non-tender, nondistended. MUSCULOSKELETAL: No cyanosis, or edema. BACK: Nontender without obvious deformity. No CVA tenderness. - Urinary Catheter Management Straight Cath placed during this visit: yes, but has since been removed by the nurse Reason for continuing: Not indwelling catheter Insertion date: 12/23/17 Insertion time: 01:00 Removal date: 12/22/17 Removal time: 01:00 Condom Cath placed during this visit: no Results - Labs CBC & Chem 7: 12/28/17 05:32 12/28/17 05:32 Laboratory Results - last 24 hr 12/27/17 12/27/17 12/28/17 17:51 23:37 05:32 WBC 9.5 RBC 3.49 L Hgb 10.6 L Hct 31.7 L MCV 90.9 MCH 30.5 MCHC 33.6 RDW 14.2 Plt Count 105 L MPV 9.8 Prelim Diff (Auto) Slide review pending Neut % (Auto) 81.1 H Lymph % (Auto) 8.9 L [place] % (Auto) 7.9 Eos % (Auto) 2.0 Baso % (Auto) 0.1 Neut # (Auto) 7.7 Lymph # (Auto) 0.8 L [place] # (Auto) 0.7 Eos # (Auto) 0.2 Baso # (Auto) 0.0 WBC Differential Manual diff final Seg Neuts % (Manual) 83 H Lymphocytes % (Manual) 9 Monocytes % (Manual) 2 Eosinophils % (Manual) 2 Metamyelocytes % (Man) 2 H Myelocytes % (Man) 2 H Abs Neuts (Manual) 8.3 H Differential Comment . Platelet Estimate Low L Platelet Morphology Normal Sodium Potassium Chloride Carbon Dioxide Anion Gap BUN Creatinine Estimated GFR POC Glucose 282 H 167 H Random Glucose Calcium Phosphorus Magnesium Total Bilirubin AST ALT Alkaline Phosphatase Total Protein Albumin 12/28/17 12/28/17 12/28/17 05:32 06:30 11:57 WBC RBC Hgb Hct MCV MCH MCHC RDW Plt Count MPV Prelim Diff (Auto) Neut % (Auto) Lymph % (Auto) [place] % (Auto) Eos % (Auto) Baso % (Auto) Neut # (Auto) Lymph # (Auto) [place] # (Auto) Eos # (Auto) Baso # (Auto) WBC Differential Seg Neuts % (Manual) Lymphocytes % (Manual) Monocytes % (Manual) Eosinophils % (Manual) Metamyelocytes % (Man) Myelocytes % (Man) Abs Neuts (Manual) Differential Comment Platelet Estimate Platelet Morphology Sodium 140 Potassium 3.1 L Chloride 96 L Carbon Dioxide 36.3 H Anion Gap 8 BUN 30 H Creatinine 0.97 Estimated GFR 74 L POC Glucose 110 148 H Random Glucose 116 H Calcium 7.6 L Phosphorus 3.3 Magnesium 2.0 Total Bilirubin 0.6 AST 35 ALT 48 Alkaline Phosphatase 107 Total Protein 5.4 L Albumin 2.2 L Assessment and Plan - Assessment (1) Respiratory failure requiring intubation Code(s): J96.90 - Respiratory failure, unspecified, unspecified whether with hypoxia or hypercapnia Status: Acute (2) Pneumonia Code(s): J18.9 - Pneumonia, unspecified organism Status: Acute (3) CHF (congestive heart failure), NYHA class II Code(s): I50.9 - Heart failure, unspecified Status: Acute (4) CHF (congestive heart failure) Code(s): I50.9 - Heart failure, unspecified Status: Acute (5) Respiratory abnormalities Code(s): J98.9 - Respiratory disorder, unspecified Status: Acute (6) Emphysema of lung Code(s): J43.9 - Emphysema, unspecified Status: Acute (7) Borderline diabetes mellitus Code(s): R73.03 - Prediabetes Status: Acute (8) Fracture, intertrochanteric, left femur Code(s): S72.142A - Status: Acute (9) Nutrition, metabolism, and development symptoms Code(s): R63.8 - Other symptoms and signs concerning food and fluid intake Status: Acute - Plan RECOMMENDATIONS: 1. Continue weaning O2 to 3 L. 2. Bronchodilators in the form of DuoNeb q.6 plus q.2 p.r.n.. 3. D/C Solu-Medrol 4. Add prednisone 10 mg BID 5. Continue with antibiotics . 6. No sedation 7. CXR ,BMP 8. Consider rehab placement
[2017-12-28] MEDS: predniSONE 10 MG Tablet PO SCH (20:12)
[2017-12-29] MEDS: Insulin NovoLOG Aspart Correctional Sugar Inj SQ SCH ×4 (01:18→18:28)
[2017-12-29] MEDS: Oral Hygiene Kit OROPHARYNG SCH ×4 (01:19→16:48)
[2017-12-29 06:45] LABS: Baso # (Auto) 0.1 th/mm3 (0.0-0.2); Baso % (Auto) 0.6 % (0.0-2.0); Eos # (Auto) 0.1 th/mm3 (0.0-0.4); Eos % (Auto) 1.1 % (0.0-4.0); Hemoglobin 10.1 gm/dL (13.0-17.0); Lymph # (Auto) 0.8 th/mm3 (1.0-4.8); Lymph % (Auto) 7.1 % (9.0-44.0); Mean Corpuscular HGB Conc 33.7 % (32.0-36.0); Mean Corpuscular Hemoglobin 30.5 pg (27.0-34.0); Mean Corpuscular Volume 90.5 fL (80.0-100.0); Mean Platelet Volume 9.5 fL (7.0-11.0); Mono # (Auto) 0.7 th/mm3 (0.0-0.9); Mono % (Auto) 6.3 % (0.0-8.0); Neut # (Auto) 9.1 th/mm3 (1.8-7.7); Neut % (Auto) 84.9 % (16.0-70.0); Platelet Count 113 th/mm3 (150-450); Red Blood Count 3.31 mil/mm3 (4.50-5.90); Red Cell Distribution Width 14.4 % (11.6-17.2); White Blood Count 10.8 th/mm3 (4.0-11.0)
[2017-12-29 07:23] LABS: Albumin 2.3 g/dL (3.4-5.0); Anion Gap 7 meq/L (5-15); Aspartate Aminotransferase 39 U/L (15-37); Blood Urea Nitrogen 26 mg/dL (7-18); Calcium 8.1 mg/dL (8.5-10.1); Carbon Dioxide 32.9 meq/L (21.0-32.0); Chloride 97 meq/L (98-107); Glomerular Filtration Rate Greater Than 89 mL/min (>89); Glucose,Random 127 mg/dL (74-106); Potassium 3.8 meq/L (3.5-5.1); Sodium 137 meq/L (136-145)
[2017-12-29 07:27] LABS: Alanine Aminotransferase 53 U/L (12-78); Alkaline Phosphatase 125 U/L (45-117); Phosphorus 2.8 mg/dL (2.5-4.9); Total Protein 5.6 g/dL (6.4-8.2)
[2017-12-29] MEDS: Chlorhexidine 0.12% Oral Kit 15 ML UDC OROPHARYNG SCH ×2 (07:54→20:33)
[2017-12-29 08:18] LABS: Ovalocytes 1+
[2017-12-29] MEDS: Insulin Detemir Inj 1,000 UNIT/10 ML Vial SQ SCH ×2 (08:31→22:07)
[2017-12-29] MEDS: Enoxaparin Inj 40 MG/0.4 ML Syringe SQ SCH (08:31)
[2017-12-29] MEDS: Furosemide 40 MG Tablet PO SCH (08:31)
[2017-12-29] MEDS: Carboxymethylcellulose 0.5% Opth Drops 15 ML Bottle EACH EYE SCH ×2 (08:31→22:08)
[2017-12-29] MEDS: Budesonide-Formoterol 160/4.5 MCG 6 GM Inhaler INH SCH ×2 (08:31→22:09)
[2017-12-29] MEDS: predniSONE 10 MG Tablet PO SCH ×2 (08:31→20:42)
--- NOTE | 2017-12-29 11:44 | P.PN ---
Subjective Interval history: Up in a chair. On O2 5 L. No SOB at rest. Coughs up little . Physical Exam Vital signs: Vital Signs 12/28/17 11:46 12/28/17 12:00 12/28/17 13:00 Temperature 98.4 F Pulse Rate 87 84 90 Respiratory Rate 33 H 25 H 35 H Blood Pressure 136/64 121/60 Pulse Oximetry 95 93 L 12/28/17 14:00 12/28/17 15:00 12/28/17 16:00 Temperature 98.1 F Pulse Rate 93 H 93 H 89 Respiratory Rate 33 H 37 H 33 H Blood Pressure 146/63 H 138/72 120/56 L Pulse Oximetry 97 98 98 12/28/17 17:00 12/28/17 18:00 12/28/17 19:00 Temperature Pulse Rate 89 93 H 87 Respiratory Rate 34 H 38 H 36 H Blood Pressure 113/55 L 126/62 124/60 Pulse Oximetry 94 L 97 100 12/28/17 20:00 12/28/17 20:03 12/28/17 20:05 Temperature 98.4 F Pulse Rate 90 87 Respiratory Rate 31 H 20 Blood Pressure 126/58 L Pulse Oximetry 95 96 12/28/17 21:00 12/28/17 22:00 12/28/17 23:00 Temperature Pulse Rate 96 H 97 H 95 H Respiratory Rate 36 H 36 H 35 H Blood Pressure 121/58 L 119/61 123/90 Pulse Oximetry 87 L 83 L 91 L 12/28/17 23:45 12/29/17 00:00 12/29/17 01:00 Temperature 98.0 F Pulse Rate 95 H 96 H 96 H Respiratory Rate 18 37 H 35 H Blood Pressure 130/63 Pulse Oximetry 92 L 90 L 12/29/17 02:00 12/29/17 03:00 12/29/17 04:00 Temperature 98.6 F Pulse Rate 96 H 92 H 96 H Respiratory Rate 36 H 28 H 35 H Blood Pressure 127/60 129/62 142/60 H Pulse Oximetry 91 L 96 89 L 12/29/17 04:46 12/29/17 06:00 12/29/17 07:48 Temperature Pulse Rate 97 H 97 H 96 H Respiratory Rate 16 16 Blood Pressure Pulse Oximetry 98 12/29/17 08:00 12/29/17 10:00 Temperature 98.3 F Pulse Rate 104 H 96 H Respiratory Rate 18 Blood Pressure 129/60 Pulse Oximetry 96 Intake & Output 12/28/17 12/29/17 12/29/17 18:59 06:59 18:59 Intake Total 1050 / 1050 920 / 920 Output Total 650 / 650 475 / 475 Balance 400 / 400 445 / 445 Weight 36.061 kg Intake: IV 450 / 450 200 / 200 KCl 20 mEq Premix Inj 20 meq In 200 / 200 200 / 200 100 ml @ 50 mls/hr IV.SIG Q2H PRN Rx#:[id number] Oral 600 / 600 720 / 720 Output: Urine 650 / 650 475 / 475 Other: Date of Last Bowel Movement 12/28/17 12/28/17 12/28/17 # Bowel Movements 2 2 GENERAL: Elderly W/m alert. SKIN: Warm and dry. HEAD: Normocephalic. EYES: No scleral icterus. No injection or drainage. NECK: Supple, trachea midline. No JVD or lymphadenopathy. CARDIOVASCULAR: Regular rate and rhythm without murmurs, gallops, or rubs. RESPIRATORY: Breath sounds reduced at left base .Occ Wheezes heard. No accessory muscle use. GASTROINTESTINAL: Abdomen soft, non-tender, nondistended. MUSCULOSKELETAL: No cyanosis, or edema. BACK: Nontender without obvious deformity. No CVA tenderness. - Urinary Catheter Management Straight Cath placed during this visit: yes, but has since been removed by the nurse Reason for continuing: Not indwelling catheter Insertion date: 12/23/17 Insertion time: 01:00 Removal date: 12/22/17 Removal time: 01:00 Condom Cath placed during this visit: no Results - Labs CBC & Chem 7: 12/29/17 06:30 12/29/17 06:30 Laboratory Results - last 24 hr 12/28/17 12/28/17 12/28/17 11:57 18:08 20:06 WBC RBC Hgb Hct MCV MCH MCHC RDW Plt Count MPV Prelim Diff (Auto) Neut % (Auto) Lymph % (Auto) [place] % (Auto) Eos % (Auto) Baso % (Auto) Neut # (Auto) Lymph # (Auto) [place] # (Auto) Eos # (Auto) Baso # (Auto) WBC Differential Diff Scan Differential Comment Ovalocytes Sodium Potassium 4.2 D Chloride Carbon Dioxide Anion Gap BUN Creatinine Estimated GFR POC Glucose 148 H 213 H Random Glucose Calcium Phosphorus Magnesium Total Bilirubin AST ALT Alkaline Phosphatase Total Protein Albumin 12/28/17 12/29/17 12/29/17 23:12 06:10 06:30 WBC 10.8 RBC 3.31 L Hgb 10.1 L Hct 30.0 L MCV 90.5 MCH 30.5 MCHC 33.7 RDW 14.4 Plt Count 113 L MPV 9.5 Prelim Diff (Auto) Slide review pending Neut % (Auto) 84.9 H Lymph % (Auto) 7.1 L [place] % (Auto) 6.3 Eos % (Auto) 1.1 Baso % (Auto) 0.6 Neut # (Auto) 9.1 H Lymph # (Auto) 0.8 L [place] # (Auto) 0.7 Eos # (Auto) 0.1 Baso # (Auto) 0.1 WBC Differential . Diff Scan Auto diff confirmed Differential Comment . Ovalocytes 1+ H Sodium Potassium Chloride Carbon Dioxide Anion Gap BUN Creatinine Estimated GFR POC Glucose 171 H 138 H Random Glucose Calcium Phosphorus Magnesium Total Bilirubin AST ALT Alkaline Phosphatase Total Protein Albumin 12/29/17 06:30 WBC RBC Hgb Hct MCV MCH MCHC RDW Plt Count MPV Prelim Diff (Auto) Neut % (Auto) Lymph % (Auto) [place] % (Auto) Eos % (Auto) Baso % (Auto) Neut # (Auto) Lymph # (Auto) [place] # (Auto) Eos # (Auto) Baso # (Auto) WBC Differential Diff Scan Differential Comment Ovalocytes Sodium 137 Potassium 3.8 Chloride 97 L Carbon Dioxide 32.9 H Anion Gap 7 BUN 26 H Creatinine 0.78 Estimated GFR Greater than 89 POC Glucose Random Glucose 127 H Calcium 8.1 L Phosphorus 2.8 Magnesium 2.0 Total Bilirubin 0.5 AST 39 H ALT 53 Alkaline Phosphatase 125 H Total Protein 5.6 L Albumin 2.3 L Assessment and Plan - Assessment (1) Respiratory failure requiring intubation Code(s): J96.90 - Respiratory failure, unspecified, unspecified whether with hypoxia or hypercapnia Status: Acute (2) Pneumonia Code(s): J18.9 - Pneumonia, unspecified organism Status: Acute (3) CHF (congestive heart failure), NYHA class II Code(s): I50.9 - Heart failure, unspecified Status: Acute (4) CHF (congestive heart failure) Code(s): I50.9 - Heart failure, unspecified Status: Acute (5) Respiratory abnormalities Code(s): J98.9 - Respiratory disorder, unspecified Status: Acute (6) Emphysema of lung Code(s): J43.9 - Emphysema, unspecified Status: Acute (7) Borderline diabetes mellitus Code(s): R73.03 - Prediabetes Status: Acute (8) Fracture, intertrochanteric, left femur Code(s): S72.142A - Displaced intertrochanteric fracture of left femur, initial encounter for closed fracture Status: Acute (9) Nutrition, metabolism, and development symptoms Code(s): R63.8 - Other symptoms and signs concerning food and fluid intake Status: Acute - Plan RECOMMENDATIONS: 1. Continue weaning O2 to 4 L. 2. Bronchodilators in the form of DuoNeb q.6 plus q.2 p.r.n.. 3. IS at bedside qid 4. cont prednisone 10 mg BID 5. Continue with Lasix 40 mg daily. 6. Transfer to tele 7. CXR ,BMP 8. Consider rehab placement
--- NOTE | 2017-12-29 11:55 | P.PNPAL ---
Reason for Visit Reason for visit: a. To assist with evaluation and management of symptoms including: dyspnea, pain b. To assist medical decision maker(s) with: better understanding of current medical conditions; weighing benefits/burdens of medical treatment options; making medical treatment decisions. Subjective Subjective/Interval History: Patient seen today to follow up on comfort/goals. S/p medical extubation 12/26. Tolerating NC, 4lpm. Critical care has signed off to hospitalist. CBC stable, unremarkable. Renal function stable. Eating well , 100% of recent meals. getting out of bed with PT. afebrile, off of antibiotics. Dual visit with Norbert Robert APRN. Patient seen in room up in bedside chair, initially just present however joint by 2 daughters. Family indicates he has been doing well since extubation. They indicate he is participating well to get out of bed. The endorse good appetite. Patient talks some in Croatian and some to his in a time. Cooperative follows commands. has concerns regarding scrotal edema as well as she reports a wound to his buttocks. Review of dependent edema to scrotal region bedbound and immobile status. They showed me a picture on her cell phone appears to be a small few centimeter area of denuded skin possible sharing per the image they show me on either side of the sacrum. Patient endorses discomfort to this area. Family indicates he does not need morphine. Extensive review with him recent labs findings. Review of the medications in place. Review with him transition out of ICU to regular medical floor. Regarding chest x-ray advised that it does not appear to have been obtained yet. Advised we will obtain wound care consult to evaluate wound and apply appropriate dressing. Review with them gently that patient does still remain at risk for pulmonary complications to his weakened status post extubation. They remain hopeful and feel he is getting better though are anxious to see what CXR findings are. They also asked about possible use of low-dose Benadryl at bedtime to help patient with sleep they endorse that he has used that in the past at home with good results. Review with them risks/benefits of Benadryl use in the elderly. They would like to try this or something to help with sleep at night. Could consider 25 mg Benadryl or 0.5 mg Ativan. All questions answered to the best of my ability. They have palliative contact information. Discussed with medical attending, CXR pending. Additional history per recent admission 11/13/17: Patient with known history CHF, diabetes, COPD, pulmonary fibrosis and asbestosis, presented to the ED after sustaining a fall in his home. He was lightheaded. Baseline 3-4 L nasal cannula requiring significant assistance with ADLs. Also with known history of LEFT thoracotomy and lobectomy/resection many years ago. Imaging finding of intertrochanteric fracture of proximal left hip. Also findings of osteopenia. Pulmonology evaluated patient and noted that he was cleared for surgery though may require BiPAP after. Suggested limited anesthesia secondary to moderately failure and/or pneumonia. Orthopedics consulted reviewed options family requested to proceed with operative management. During that admission noted during attending discussion with family daughter reports baseline mental status with some component of a dementia. Patient's primary language also reported to be a telemetry and though they requested no interpretation service be used during encounters because this would make him upset. During that hospital course patient did require ICU on BiPAP. Patient with some agitation. Anemia requiring transfusion postoperatively. Ongoing respiratory complication and concern for respiratory decompensation that could require mechanical ventilation and could result in difficulty weaning. Critical care notes discussion with family requested full CODE STATUS and continued aggressive management. Outpatient CT per Dr. Guerrier demonstrated pulmonary fibrosis and bronchiectasis. Patient did have a VQ scan during that admission with ventilation abnormally and perfume and of normal least left lower lobe pattern not typical of PE likely related to lobectomy. Avoiding CTA due to worsening renal function, family did not wish to assume risk. During that hospital course it is noted family requested transfer to [facility], critical care attempted to initiate that process. [facility] declined admission. Patient was also evaluated for LTAC, insurance apparently denied LTAC. Family appealed this and patient was later accepted by [facility]. He was discharged to [facility] 11/20/17 Objective Vital Signs: Vital Signs 12/28/17 12:00 12/28/17 13:00 12/28/17 14:00 Temperature 98.4 F Pulse Rate 84 90 93 H Respiratory Rate 25 H 35 H 33 H Blood Pressure 136/64 121/60 146/63 H Pulse Oximetry 95 93 L 97 12/28/17 15:00 12/28/17 16:00 12/28/17 17:00 Temperature 98.1 F Pulse Rate 93 H 89 89 Respiratory Rate 37 H 33 H 34 H Blood Pressure 138/72 120/56 L 113/55 L Pulse Oximetry 98 98 94 L 12/28/17 18:00 12/28/17 19:00 12/28/17 20:00 Temperature 98.4 F Pulse Rate 93 H 87 90 Respiratory Rate 38 H 36 H 31 H Blood Pressure 126/62 124/60 126/58 L Pulse Oximetry 97 100 95 12/28/17 20:03 12/28/17 20:05 12/28/17 21:00 Temperature Pulse Rate 87 96 H Respiratory Rate 20 36 H Blood Pressure 121/58 L Pulse Oximetry 96 87 L 12/28/17 22:00 12/28/17 23:00 12/28/17 23:45 Temperature Pulse Rate 97 H 95 H 95 H Respiratory Rate 36 H 35 H 18 Blood Pressure 119/61 123/90 Pulse Oximetry 83 L 91 L 12/29/17 00:00 12/29/17 01:00 12/29/17 02:00 Temperature 98.0 F Pulse Rate 96 H 96 H 96 H Respiratory Rate 37 H 35 H 36 H Blood Pressure 130/63 127/60 Pulse Oximetry 92 L 90 L 91 L 12/29/17 03:00 12/29/17 04:00 12/29/17 04:46 Temperature 98.6 F Pulse Rate 92 H 96 H 97 H Respiratory Rate 28 H 35 H 16 Blood Pressure 129/62 142/60 H Pulse Oximetry 96 89 L 12/29/17 06:00 12/29/17 07:48 12/29/17 08:00 Temperature 98.3 F Pulse Rate 97 H 96 H 104 H Respiratory Rate 16 18 Blood Pressure 129/60 Pulse Oximetry 98 96 12/29/17 10:00 12/29/17 11:42 Temperature Pulse Rate 96 H 94 H Respiratory Rate 16 Blood Pressure Pulse Oximetry Intake & Output 12/28/17 12/29/17 12/29/17 18:59 06:59 18:59 Intake Total 1050 / 1050 920 / 920 Output Total 650 / 650 475 / 475 Balance 400 / 400 445 / 445 Weight 36.061 kg Intake: IV 450 / 450 200 / 200 KCl 20 mEq Premix Inj 20 meq In 200 / 200 200 / 200 100 ml @ 50 mls/hr IV.SIG Q2H PRN Rx#:[id number] Oral 600 / 600 720 / 720 Output: Urine 650 / 650 475 / 475 Other: Date of Last Bowel Movement 12/28/17 12/28/17 12/28/17 # Bowel Movements 2 2 Physical Exam: CONSTITUTIONAL/GENERAL: This is a thin elderly male, alert, up in chair TUBES/LINES/DRAINS: peripheral IVs to bilateral upper extremities. Nasal cannula SKIN: No jaundice, rashes, or lesions. Some areas of ecchymosis bilateral hands. Extensive ecchymosis along left hip, upper leg. Some areas of fading. No wounds seen anteriorly-though family shows me a picture of a reported wound on her cell phone. Skin warm and dry. HEAD: Atraumatic. Normocephalic. EYES: Pupils 3mm/ reactive to light. No scleral icterus. No injection or drainage. Fundi not examined. ENT: Nose without bleeding or purulent drainage. Throat without visible erythema, exudates CARDIOVASCULAR: Regular rate and rhythm without murmur, rate 90s. No JVD. Peripheral pulses symmetric. Hands are cool to the touch. Trace edema to hands , + scrotal edema RESPIRATORY/CHEST: Symmetric, unlabored respirations on 4 L nasal cannula. Left side was decreased air movement. Some rhonchi to upper airway. faint expiratory wheeze rt posterior base GASTROINTESTINAL: Abdomen soft, no tenderness. No palpable masses. Bowel sounds present. GENITOURINARY: Without palpable bladder distension. MUSCULOSKELETAL: Extremities without clubbing, cyanosis. Slight edema to hands. No joint tenderness or effusion noted. No mottling or clubbing. NEUROLOGICAL: alert partially oriented. Cooperative. Follows commands. Moves all 4 extremities. PSYCHIATRIC: calm no apparent anxiety. Diagnostic Tests Laboratory: Laboratory Results - last 72 hr 12/26/17 12/26/17 12/26/17 12:00 17:50 23:13 WBC RBC Hgb Hct MCV MCH MCHC RDW Plt Count MPV Prelim Diff (Auto) Neut % (Auto) Lymph % (Auto) [place] % (Auto) Eos % (Auto) Baso % (Auto) Neut # (Auto) Lymph # (Auto) [place] # (Auto) Eos # (Auto) Baso # (Auto) WBC Differential Diff Scan Seg Neuts % (Manual) Lymphocytes % (Manual) Monocytes % (Manual) Eosinophils % (Manual) Metamyelocytes % (Man) Myelocytes % (Man) Abs Neuts (Manual) Differential Comment Platelet Estimate Platelet Morphology Ovalocytes PT INR Sodium Potassium Chloride Carbon Dioxide Anion Gap BUN Creatinine Estimated GFR POC Glucose 265 H 299 H 162 H Random Glucose Calcium Prot Corrected Calcium Phosphorus Magnesium Total Bilirubin AST ALT Alkaline Phosphatase Total Protein Albumin Vancomycin Trough 12/26/17 12/26/17 12/26/17 23:14 23:14 23:14 WBC 11.7 H RBC 3.50 L Hgb 10.2 L Hct 31.9 L MCV 91.1 MCH 29.2 MCHC 32.1 RDW 14.5 Plt Count 111 L MPV 9.6 Prelim Diff (Auto) Neut % (Auto) Lymph % (Auto) [place] % (Auto) Eos % (Auto) Baso % (Auto) Neut # (Auto) Lymph # (Auto) [place] # (Auto) Eos # (Auto) Baso # (Auto) WBC Differential Diff Scan Seg Neuts % (Manual) Lymphocytes % (Manual) Monocytes % (Manual) Eosinophils % (Manual) Metamyelocytes % (Man) Myelocytes % (Man) Abs Neuts (Manual) Differential Comment Platelet Estimate Platelet Morphology Ovalocytes PT 11.7 H INR 1.2 Sodium 142 Potassium 3.5 Chloride 99 D Carbon Dioxide 34.7 H Anion Gap 8 BUN 44 H Creatinine 1.07 Estimated GFR 66 L POC Glucose Random Glucose 157 H Calcium 6.9 L* Prot Corrected Calcium 7.7 L Phosphorus 4.1 Magnesium 2.2 Total Bilirubin 0.6 AST 37 ALT 56 Alkaline Phosphatase 119 H Total Protein 5.5 L Albumin 2.2 L Vancomycin Trough 21.6 H 12/27/17 12/27/17 12/27/17 05:31 08:41 08:41 WBC 11.3 H RBC 3.50 L Hgb 10.4 L Hct 32.1 L MCV 91.9 MCH 29.8 MCHC 32.4 RDW 14.6 Plt Count 107 L MPV 9.9 Prelim Diff (Auto) Neut % (Auto) 86.9 H Lymph % (Auto) 5.5 L [place] % (Auto) 7.2 Eos % (Auto) 0.3 Baso % (Auto) 0.1 Neut # (Auto) 9.8 H Lymph # (Auto) 0.6 L [place] # (Auto) 0.8 Eos # (Auto) 0.0 Baso # (Auto) 0.0 WBC Differential . Diff Scan Seg Neuts % (Manual) Lymphocytes % (Manual) Monocytes % (Manual) Eosinophils % (Manual) Metamyelocytes % (Man) Myelocytes % (Man) Abs Neuts (Manual) Differential Comment Auto diff final Platelet Estimate Platelet Morphology Ovalocytes PT INR Sodium 142 Potassium 3.7 Chloride 100 Carbon Dioxide 34.2 H Anion Gap 8 BUN 41 H Creatinine 1.07 Estimated GFR 66 L POC Glucose 221 H Random Glucose 172 H Calcium 7.8 L D Prot Corrected Calcium Phosphorus 4.2 Magnesium 2.2 Total Bilirubin 0.5 AST 33 ALT 54 Alkaline Phosphatase 117 Total Protein 5.5 L Albumin 2.3 L Vancomycin Trough 12/27/17 12/27/17 12/27/17 11:28 17:51 23:37 WBC RBC Hgb Hct MCV MCH MCHC RDW Plt Count MPV Prelim Diff (Auto) Neut % (Auto) Lymph % (Auto) [place] % (Auto) Eos % (Auto) Baso % (Auto) Neut # (Auto) Lymph # (Auto) [place] # (Auto) Eos # (Auto) Baso # (Auto) WBC Differential Diff Scan Seg Neuts % (Manual) Lymphocytes % (Manual) Monocytes % (Manual) Eosinophils % (Manual) Metamyelocytes % (Man) Myelocytes % (Man) Abs Neuts (Manual) Differential Comment Platelet Estimate Platelet Morphology Ovalocytes PT INR Sodium Potassium Chloride Carbon Dioxide Anion Gap BUN Creatinine Estimated GFR POC Glucose 244 H 282 H 167 H Random Glucose Calcium Prot Corrected Calcium Phosphorus Magnesium Total Bilirubin AST ALT Alkaline Phosphatase Total Protein Albumin Vancomycin Trough 12/28/17 12/28/17 12/28/17 05:32 05:32 06:30 WBC 9.5 RBC 3.49 L Hgb 10.6 L Hct 31.7 L MCV 90.9 MCH 30.5 MCHC 33.6 RDW 14.2 Plt Count 105 L MPV 9.8 Prelim Diff (Auto) Slide review pending Neut % (Auto) 81.1 H Lymph % (Auto) 8.9 L [place] % (Auto) 7.9 Eos % (Auto) 2.0 Baso % (Auto) 0.1 Neut # (Auto) 7.7 Lymph # (Auto) 0.8 L [place] # (Auto) 0.7 Eos # (Auto) 0.2 Baso # (Auto) 0.0 WBC Differential Manual diff final Diff Scan Seg Neuts % (Manual) 83 H Lymphocytes % (Manual) 9 Monocytes % (Manual) 2 Eosinophils % (Manual) 2 Metamyelocytes % (Man) 2 H Myelocytes % (Man) 2 H Abs Neuts (Manual) 8.3 H Differential Comment . Platelet Estimate Low L Platelet Morphology Normal Ovalocytes PT INR Sodium 140 Potassium 3.1 L Chloride 96 L Carbon Dioxide 36.3 H Anion Gap 8 BUN 30 H Creatinine 0.97 Estimated GFR 74 L POC Glucose 110 Random Glucose 116 H Calcium 7.6 L Prot Corrected Calcium Phosphorus 3.3 Magnesium 2.0 Total Bilirubin 0.6 AST 35 ALT 48 Alkaline Phosphatase 107 Total Protein 5.4 L Albumin 2.2 L Vancomycin Trough 12/28/17 12/28/17 12/28/17 11:57 18:08 20:06 WBC RBC Hgb Hct MCV MCH MCHC RDW Plt Count MPV Prelim Diff (Auto) Neut % (Auto) Lymph % (Auto) [place] % (Auto) Eos % (Auto) Baso % (Auto) Neut # (Auto) Lymph # (Auto) [place] # (Auto) Eos # (Auto) Baso # (Auto) WBC Differential Diff Scan Seg Neuts % (Manual) Lymphocytes % (Manual) Monocytes % (Manual) Eosinophils % (Manual) Metamyelocytes % (Man) Myelocytes % (Man) Abs Neuts (Manual) Differential Comment Platelet Estimate Platelet Morphology Ovalocytes PT INR Sodium Potassium 4.2 D Chloride Carbon Dioxide Anion Gap BUN Creatinine Estimated GFR POC Glucose 148 H 213 H Random Glucose Calcium Prot Corrected Calcium Phosphorus Magnesium Total Bilirubin AST ALT Alkaline Phosphatase Total Protein Albumin Vancomycin Trough 12/28/17 12/29/17 12/29/17 23:12 06:10 06:30 WBC 10.8 RBC 3.31 L Hgb 10.1 L Hct 30.0 L MCV 90.5 MCH 30.5 MCHC 33.7 RDW 14.4 Plt Count 113 L MPV 9.5 Prelim Diff (Auto) Slide review pending Neut % (Auto) 84.9 H Lymph % (Auto) 7.1 L [place] % (Auto) 6.3 Eos % (Auto) 1.1 Baso % (Auto) 0.6 Neut # (Auto) 9.1 H Lymph # (Auto) 0.8 L [place] # (Auto) 0.7 Eos # (Auto) 0.1 Baso # (Auto) 0.1 WBC Differential . Diff Scan Auto diff confirmed Seg Neuts % (Manual) Lymphocytes % (Manual) Monocytes % (Manual) Eosinophils % (Manual) Metamyelocytes % (Man) Myelocytes % (Man) Abs Neuts (Manual) Differential Comment . Platelet Estimate Platelet Morphology Ovalocytes 1+ H PT INR Sodium Potassium Chloride Carbon Dioxide Anion Gap BUN Creatinine Estimated GFR POC Glucose 171 H 138 H Random Glucose Calcium Prot Corrected Calcium Phosphorus Magnesium Total Bilirubin AST ALT Alkaline Phosphatase Total Protein Albumin Vancomycin Trough 12/29/17 06:30 WBC RBC Hgb Hct MCV MCH MCHC RDW Plt Count MPV Prelim Diff (Auto) Neut % (Auto) Lymph % (Auto) [place] % (Auto) Eos % (Auto) Baso % (Auto) Neut # (Auto) Lymph # (Auto) [place] # (Auto) Eos # (Auto) Baso # (Auto) WBC Differential Diff Scan Seg Neuts % (Manual) Lymphocytes % (Manual) Monocytes % (Manual) Eosinophils % (Manual) Metamyelocytes % (Man) Myelocytes % (Man) Abs Neuts (Manual) Differential Comment Platelet Estimate Platelet Morphology Ovalocytes PT INR Sodium 137 Potassium 3.8 Chloride 97 L Carbon Dioxide 32.9 H Anion Gap 7 BUN 26 H Creatinine 0.78 Estimated GFR Greater than 89 POC Glucose Random Glucose 127 H Calcium 8.1 L Prot Corrected Calcium Phosphorus 2.8 Magnesium 2.0 Total Bilirubin 0.5 AST 39 H ALT 53 Alkaline Phosphatase 125 H Total Protein 5.6 L Albumin 2.3 L Vancomycin Trough Result Diagrams: 12/29/17 06:30 12/29/17 06:30 Imaging: Impressions Chest X-Ray 12/29/17 12:02 CONCLUSION: 1. Interval extubation. 2. No significant change in the left pleural-based opacity calcification. Assessment and Plan - Disease Oriented Problem List (1) COPD (chronic obstructive pulmonary disease) (2) CHF (congestive heart failure) (3) Respiratory distress (4) Sepsis (5) HCAP (healthcare-associated pneumonia) (6) NAHED (acute kidney injury) (7) Pulmonary hypertension (8) S/P lobectomy of lung Pertinent Non-Medical Issues: Psychosocial: Retired. Lived in [place] most of his life-- originally from [place], then moved to [place], then to [place]. 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 Supported by , 4 daughters, other extended family. Spiritual:buddhism, sister providing spiritual care Legal:Patient unable to participate due to clinical condition. There is some question of underlying cognitive deficits. His would be appropriate legal decision maker. She is making decisions supported by the rest of the family, daughters, sister are very involved in his care in decision-making Ethical issues impacting care:no ethical issues identified Important Contacts: Sunshine Davenport [phone] Prognosis: This 82-year-old patient is currently hospitalized due to severe sepsis, with respiratory failure. He has multiple chronic comorbidities. 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 He also has underlying COPD, pulmonary fibrosis, prior lobectomy. Overall poor prognosis for survival from current acute issues. Code Status: Full Code Plan: * Legal decision maker: Patient unable to participate due to clinical condition. There is some question of underlying cognitive deficits. His would be appropriate legal decision maker. She is making decisions supported by the rest of the family, daughters, sister are very involved in his care in decision-making * Goals: aggressive goals; pt/family want to continue ongoing aggressive treatments to improve his condition, including full code. Family hopeful he will eventually return home with them * CODE STATUS: Full code * SYMPTOMS: --Dyspnea-admitted for shortness of breath. Desaturation reported at home. Urgently intubated upon arrival to ICU. CXR indicative right lower lung probable pneumonia. On broad-spectrum antibiotics. Cultures negative. Tolerated medical extubation 12/25. Currently tolerating nasal cannula. Due to recent pneumonia, intubation, debilitated status remains at risk for respiratory complications. Using IS with family encouragement. --Pain-family endorses day to day at home patient did not endorse any pain. He is status post hip repair last month. Has been essentially bedbound since that time, potential sources would include recent hip surgery, as well as prolonged bedbound status and recent invasive procedures. Family endorses that pt is having some discomfort to his sacral region though they do not want him to have morphine because they feel that is too strong for him. Wound care consultation placed to evaluate what they report is area of concern to his sacrum and buttocks, they showed this provider picture on her cell phone today. --Insomnia at night-family asked about possible use of low-dose Benadryl at bedtime to help patient with sleep they endorse that he has used that in the past at home with good results. Review with them risks/benefits of Benadryl use in the elderly. They would like to try this or something to help with sleep at night. Could consider 25 mg Benadryl or 0.25 mg Ativan x 1 at HS * Palliative care will continue to follow during hospital course as condition evolves, to assist patient/decision-maker with understanding of medical conditions, weighing benefits/burdens of treatment options, for clarification of goals of treatment. Additionally will assist with any symptoms of palliative concern
--- NOTE | 2017-12-29 12:56 | XR ---
EXAM DATE: 12/29/2017 12:02 PM EDT AGE/SEX: 82 years / Male INDICATIONS: Shortness of breath. Extubation. CLINICAL DATA: This is the patient's subsequent encounter. Patient reports that signs and symptoms h ave been present for 2 weeks and indicates a pain score of 0/10. MEDICAL/SURGICAL HISTORY: Chronic obstructive pulmonary disease. Diabetes mellitus type II. Lo bectomy. [place] [facility] [place]. . FINDINGS: A single AP semierect portable view of the chest was obtained and again demonstrates abnormal pleural opacity and calcification in the left with volume loss and central aeration of the left lung. There is patchy opacity remaining in the right lung with right apical pleural parenchymal change. The left costophrenic angle remains blunted. The heart size is within normal limits. The bony thorax is stable in appearance. There are multiple overlying electrocardiogram leads. CONCLUSION: 1. Interval extubation. 2. No significant change in the left pleural-based opacity calcification. Electronically signed by: Sidney Long MD 12/29/2017 12:54 PM EDT
--- NOTE | 2017-12-29 14:54 | P.PN ---
Subjective Interval history: Follow-up acute metabolic encephalopathy/respiratory failure December 29, 2017-patient seen and examined, alert and oriented x2. Afebrile. Signing on 4 L nasal cannula. Family by the bedside. Complaining of right- sided epigastric pain. No Nausea or vomiting with p.o. intake Physical Exam Vital signs: Vital Signs 12/28/17 15:00 12/28/17 16:00 12/28/17 17:00 Temperature 98.1 F Pulse Rate 93 H 89 89 Respiratory Rate 37 H 33 H 34 H Blood Pressure 138/72 120/56 L 113/55 L Pulse Oximetry 98 98 94 L 12/28/17 18:00 12/28/17 19:00 12/28/17 20:00 Temperature 98.4 F Pulse Rate 93 H 87 90 Respiratory Rate 38 H 36 H 31 H Blood Pressure 126/62 124/60 126/58 L Pulse Oximetry 97 100 95 12/28/17 20:03 12/28/17 20:05 12/28/17 21:00 Temperature Pulse Rate 87 96 H Respiratory Rate 20 36 H Blood Pressure 121/58 L Pulse Oximetry 96 87 L 12/28/17 22:00 12/28/17 23:00 12/28/17 23:45 Temperature Pulse Rate 97 H 95 H 95 H Respiratory Rate 36 H 35 H 18 Blood Pressure 119/61 123/90 Pulse Oximetry 83 L 91 L 12/29/17 00:00 12/29/17 01:00 12/29/17 02:00 Temperature 98.0 F Pulse Rate 96 H 96 H 96 H Respiratory Rate 37 H 35 H 36 H Blood Pressure 130/63 127/60 Pulse Oximetry 92 L 90 L 91 L 12/29/17 03:00 12/29/17 04:00 12/29/17 04:46 Temperature 98.6 F Pulse Rate 92 H 96 H 97 H Respiratory Rate 28 H 35 H 16 Blood Pressure 129/62 142/60 H Pulse Oximetry 96 89 L 12/29/17 06:00 12/29/17 07:48 12/29/17 08:00 Temperature 98.3 F Pulse Rate 97 H 96 H 104 H Respiratory Rate 16 18 Blood Pressure 129/60 Pulse Oximetry 98 96 12/29/17 10:00 12/29/17 11:42 12/29/17 12:00 Temperature 98 F Pulse Rate 96 H 94 H 92 H Respiratory Rate 16 18 Blood Pressure 134/60 Pulse Oximetry 97 Intake & Output 12/28/17 12/29/17 12/29/17 18:59 06:59 18:59 Intake Total 1050 / 1050 920 / 920 Output Total 650 / 650 475 / 475 Balance 400 / 400 445 / 445 Weight 36.061 kg Intake: IV 450 / 450 200 / 200 KCl 20 mEq Premix Inj 20 meq In 200 / 200 200 / 200 100 ml @ 50 mls/hr IV.SIG Q2H PRN Rx#:[id number] Oral 600 / 600 720 / 720 Output: Urine 650 / 650 475 / 475 Other: Date of Last Bowel Movement 12/28/17 12/28/17 12/28/17 # Bowel Movements 2 2 Narrative: GENERAL: NAD SKIN: Warm and dry. HEAD: Atraumatic. Normocephalic. EYES: Pupils equal and round. No scleral icterus. No injection or drainage. ENT: No nasal bleeding or discharge. Mucous membranes pink and moist. NECK: Trachea midline. No JVD. CARDIOVASCULAR: Regular rate and rhythm. RESPIRATORY: No accessory muscle use. Clear to auscultation. GASTROINTESTINAL: Abdomen soft, non-tender, nondistended. Hepatic and splenic margins not palpable. MUSCULOSKELETAL: Extremities without clubbing, cyanosis, or edema. No obvious deformities. NEUROLOGICAL: Awake and alert. No obvious cranial nerve deficits. Motor grossly within normal limits. Five out of 5 muscle strength in the arms and legs. Normal speech. PSYCHIATRIC: Appropriate mood and affect; insight and judgment normal. - Urinary Catheter Management Straight Cath placed during this visit: yes, but has since been removed by the nurse Reason for continuing: Not indwelling catheter Insertion date: 12/23/17 Insertion time: 01:00 Removal date: 12/22/17 Removal time: 01:00 Condom Cath placed during this visit: no Results - Labs CBC & Chem 7: 12/29/17 06:30 12/29/17 06:30 Laboratory Results - last 24 hr 12/28/17 12/28/17 12/28/17 18:08 20:06 23:12 WBC RBC Hgb Hct MCV MCH MCHC RDW Plt Count MPV Prelim Diff (Auto) Neut % (Auto) Lymph % (Auto) Luna % (Auto) Eos % (Auto) Baso % (Auto) Neut # (Auto) Lymph # (Auto) Luna # (Auto) Eos # (Auto) Baso # (Auto) WBC Differential Diff Scan Differential Comment Ovalocytes Sodium Potassium 4.2 D Chloride Carbon Dioxide Anion Gap BUN Creatinine Estimated GFR POC Glucose 213 H 171 H Random Glucose Calcium Phosphorus Magnesium Total Bilirubin AST ALT Alkaline Phosphatase Total Protein Albumin 12/29/17 12/29/17 12/29/17 06:10 06:30 06:30 WBC 10.8 RBC 3.31 L Hgb 10.1 L Hct 30.0 L MCV 90.5 MCH 30.5 MCHC 33.7 RDW 14.4 Plt Count 113 L MPV 9.5 Prelim Diff (Auto) Slide review pending Neut % (Auto) 84.9 H Lymph % (Auto) 7.1 L Luna % (Auto) 6.3 Eos % (Auto) 1.1 Baso % (Auto) 0.6 Neut # (Auto) 9.1 H Lymph # (Auto) 0.8 L Luna # (Auto) 0.7 Eos # (Auto) 0.1 Baso # (Auto) 0.1 WBC Differential . Diff Scan Auto diff confirmed Differential Comment . Ovalocytes 1+ H Sodium 137 Potassium 3.8 Chloride 97 L Carbon Dioxide 32.9 H Anion Gap 7 BUN 26 H Creatinine 0.78 Estimated GFR Greater than 89 POC Glucose 138 H Random Glucose 127 H Calcium 8.1 L Phosphorus 2.8 Magnesium 2.0 Total Bilirubin 0.5 AST 39 H ALT 53 Alkaline Phosphatase 125 H Total Protein 5.6 L Albumin 2.3 L 12/29/17 12:07 WBC RBC Hgb Hct MCV MCH MCHC RDW Plt Count MPV Prelim Diff (Auto) Neut % (Auto) Lymph % (Auto) Luna % (Auto) Eos % (Auto) Baso % (Auto) Neut # (Auto) Lymph # (Auto) Luna # (Auto) Eos # (Auto) Baso # (Auto) WBC Differential Diff Scan Differential Comment Ovalocytes Sodium Potassium Chloride Carbon Dioxide Anion Gap BUN Creatinine Estimated GFR POC Glucose 179 H Random Glucose Calcium Phosphorus Magnesium Total Bilirubin AST ALT Alkaline Phosphatase Total Protein Albumin - Imaging Impressions Chest X-Ray 12/29/17 12:02 CONCLUSION: 1. Interval extubation. 2. No significant change in the left pleural-based opacity calcification. 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 prednisone BIPAP PRN for resp distress Pulmonary is following- Dr. Lazcano Diastolic congestive heart failure secondary to pulmonary hypertension [employer] class III systemic pulmonary hypertension Severe sepsis Mild TR Monitor HR and BP keep MAP>65mmHg Echocardiogram 10/2017 with an estimated ejection fraction in the range of 60-65% . Normal left ventricular size. Continue furosemide 40 mg daily/home medication As needed labetalol for hypertension Acute kidney injury History of nephrolithiasis Monitor renal function, I/O's On Lasix 40mg daily Severe acute protein calorie malnutrition Hypernatremia On PO diet Lansoprazole for GI prophylaxis Docusate sodium/senna 1 tablet twice daily for bowel regimen Healthcare associated pneumonia Severe sepsis- present on admission Normocytic anemia Thrombocytopenia s/p piperacillin/tazobactam and azithromycin no evidence of leukocytosis and all previous cultures negative Sputum culture 12/20-shea resp vaishnavi Blood cultures 12/19 no growth Urine UA with urine culture 12/20-NGTD Negative Legionella and pneumococcal urinary antigens Monitor CBC daily and follow trends. No indication for transfusion of blood products at this time Hyperglycemia of critical illness -- SSI and insulin detemir 5 twice daily History of left IT nailing 11/14 Vitamin D deficiency PT evaluate and treat Prophylaxis: GI Prophylaxis Lansoprazole DVT Prophylaxis -- SCDs Enoxaparin
[2017-12-29] MEDS: Acetaminophen 325 MG Tablet PO PRN (17:14)
[2017-12-29] MEDS ORDERED: Acetaminophen 325 MG Tablet PO ONE (17:30)
[2017-12-30] MEDS: Oral Hygiene Kit OROPHARYNG SCH ×4 (00:18→17:58)
[2017-12-30] MEDS: Insulin NovoLOG Aspart Correctional Sugar Inj SQ SCH ×4 (00:19→17:57)
[2017-12-30 05:07] LABS: ABG Base Excess 8.6 mmol/L (-2-2); ABG PCO2 51 mmHg (38-42); ABG PO2 76 mmHg (61-120)
--- NOTE | 2017-12-30 05:07 | XR ---
EXAM DATE: 12/30/2017 12:00 AM EDT AGE/SEX: 82 years / Male INDICATIONS: Short of breath. CLINICAL DATA: This is the patient's subsequent encounter. Patient reports that signs and symptoms h ave been present for 1 week and indicates a pain score of 0/10. MEDICAL/SURGICAL HISTORY: Chronic obstructive pulmonary disease. Diabetes mellitus type II. Lo bectomy. [place] [facility] [place]29[place]. . FINDINGS: Redemonstration of diffuse pleural thickening in the left hemithorax with calcified pleural plaques. Worsening airspace consolidation in the right mid to lower lung zones. Persistent right apical pleura l-parenchymal scarring. Cardiac lead is enlarged. Remainder of the exam is unchanged. CONCLUSION: 1. Worsening airspace disease in the right mid to lower lung zones. 2. Persistent prominent left-sided pleural thickening and calcified pleural plaques with associated volume loss. 3. Stable right apical pleural-parenchymal scarring. Electronically signed by: Kyaw Gallo MD 12/30/2017 5:05 AM EDT
[2017-12-30] MEDS ORDERED: Vancomycin Consult Pharmacy OTHER PRN (05:19)
[2017-12-30] MEDS: Piperacil/Tazo 4.5 GM Premix 4.5 GM/100 ML BAG IV.SIG SCH ×3 (06:02→17:58)
[2017-12-30 06:30] LABS: Baso % (Auto) 0.2 % (0.0-2.0); Eos # (Auto) 0.1 th/mm3 (0.0-0.4); Eos % (Auto) 0.7 % (0.0-4.0); Hematocrit 29.3 % (39.0-51.0); Hemoglobin 9.8 gm/dL (13.0-17.0); Lymph # (Auto) 0.6 th/mm3 (1.0-4.8); Lymph % (Auto) 6.3 % (9.0-44.0); Mean Corpuscular HGB Conc 33.4 % (32.0-36.0); Mean Corpuscular Hemoglobin 30.2 pg (27.0-34.0); Mean Corpuscular Volume 90.6 fL (80.0-100.0); Mean Platelet Volume 9.3 fL (7.0-11.0); Mono # (Auto) 0.6 th/mm3 (0.0-0.9); Mono % (Auto) 5.8 % (0.0-8.0); Neut # (Auto) 8.8 th/mm3 (1.8-7.7); Platelet Count 126 th/mm3 (150-450); Red Blood Count 3.23 mil/mm3 (4.50-5.90); Red Cell Distribution Width 14.7 % (11.6-17.2); White Blood Count 10.1 th/mm3 (4.0-11.0)
[2017-12-30 06:42] LABS: Albumin 2.2 g/dL (3.4-5.0); Anion Gap 7 meq/L (5-15); Aspartate Aminotransferase 40 U/L (15-37); Blood Urea Nitrogen 21 mg/dL (7-18); Carbon Dioxide 32.7 meq/L (21.0-32.0); Chloride 98 meq/L (98-107); Glomerular Filtration Rate Greater Than 89 mL/min (>89); Glucose,Random 161 mg/dL (74-106); Potassium 3.8 meq/L (3.5-5.1); Sodium 138 meq/L (136-145)
[2017-12-30 06:44] LABS: Alanine Aminotransferase 52 U/L (12-78)
[2017-12-30 06:47] LABS: Alkaline Phosphatase 141 U/L (45-117); Total Protein 5.5 g/dL (6.4-8.2)
[2017-12-30] MEDS ORDERED: Vancomycin Inj 700 MG in Sodium Chlor 0.9% Inj 250 ML IV.SIG ONE (07:00)
[2017-12-30 08:06] LABS: Lymphocytes 4 % (9-44); Monocytes 4 % (0-8); Myelocytes 3 % (0-0); Platelet Morphology Normal (Normal)
[2017-12-30] MEDS: Chlorhexidine 0.12% Oral Kit 15 ML UDC OROPHARYNG SCH ×2 (08:35→21:59)
[2017-12-30] MEDS: Enoxaparin Inj 40 MG/0.4 ML Syringe SQ SCH (09:06)
[2017-12-30] MEDS: Azithromycin Inj 500 MG in Sodium Chlor 0.9% Inj 250 ML IV.SIG SCH (09:07)
[2017-12-30] MEDS: Furosemide 40 MG Tablet PO SCH (09:08)
[2017-12-30] MEDS: predniSONE 10 MG Tablet PO SCH (09:08)
[2017-12-30] MEDS: Insulin Detemir Inj 1,000 UNIT/10 ML Vial SQ SCH ×2 (09:11→21:58)
[2017-12-30] MEDS: Carboxymethylcellulose 0.5% Opth Drops 15 ML Bottle EACH EYE SCH ×2 (09:11→23:03)
[2017-12-30] MEDS: Budesonide-Formoterol 160/4.5 MCG 6 GM Inhaler INH SCH ×2 (09:32→23:03)
--- NOTE | 2017-12-30 12:46 | P.PN ---
Subjective Interval history: was hypoxic earlier today. On a NRB mask now . also was on BiPAP. Alert and breathing shallow. CXR shows increased right lung infiltrates. Physical Exam Vital signs: Vital Signs 12/29/17 15:14 12/29/17 16:00 12/29/17 18:00 Temperature 97.9 F Pulse Rate 100 H 103 H 103 H Respiratory Rate 15 22 Blood Pressure 152/79 H Pulse Oximetry 95 12/29/17 19:30 12/29/17 19:42 12/29/17 20:00 Temperature 98.2 F Pulse Rate 100 H 105 H Respiratory Rate 20 16 Blood Pressure 146/68 H Pulse Oximetry 92 L 92 L 92 L 12/29/17 23:38 12/30/17 00:00 12/30/17 04:00 Temperature 98.0 F 98.0 F Pulse Rate 102 H 107 H 108 H Respiratory Rate 18 18 18 Blood Pressure 157/73 H 146/73 H Pulse Oximetry 91 L 12/30/17 04:31 12/30/17 06:25 12/30/17 08:00 Temperature 98.7 F Pulse Rate 105 H 97 H Respiratory Rate 22 17 Blood Pressure 140/65 Pulse Oximetry 93 L 94 L 96 12/30/17 12:00 12/30/17 12:12 Temperature Pulse Rate 98 H 89 Respiratory Rate 17 20 Blood Pressure 148/65 H Pulse Oximetry 97 Intake & Output 12/29/17 12/30/17 12/30/17 18:59 06:59 18:59 Intake Total 100 / 100 500 / 500 Output Total 100 / 100 200 / 200 Balance -100 / -100 -100 / -100 500 / 500 Intake: IV 100 / 100 500 / 500 Azithromycin Inj 500 MG In NS 250 / 250 Inj 250 ML @ 250 mls/hr IV.SIG Q24H NOAH Rx#:[id number] Zosyn 4.5 GM Premix 4.5 gm In 100 / 100 100 ml @ 200 mls/hr IV.SIG Q6H NOAH Rx#:[id number] Vancomycin Inj 700 MG In NS Inj 250 / 250 250 ML @ 250 mls/hr IV.SIG ONCE ONE Rx#:[id number] Output: Urine 100 / 100 200 / 200 Other: Date of Last Bowel Movement 12/28/17 Narrative: GENERAL: Elderly W/M dyspneic. SKIN: Warm and dry. HEAD: Atraumatic. Normocephalic. EYES: Pupils equal and round. No scleral icterus. No injection or drainage. ENT: No nasal bleeding or discharge. Mucous membranes moist. NECK: Trachea midline. No JVD. CARDIOVASCULAR: Regular rate and rhythm. RESPIRATORY: Has accessory muscle use.Bilateral wheezes and basal crackles. GASTROINTESTINAL: Abdomen soft, non-tender, nondistended. Hepatic and splenic margins not palpable. MUSCULOSKELETAL: Extremities without clubbing, cyanosis, or edema. No obvious deformities. NEUROLOGICAL: Awake and alert. Moved arms .weak legs . Normal speech. PSYCHIATRIC: Appropriate mood and affect. - Urinary Catheter Management Straight Cath placed during this visit: yes, but has since been removed by the nurse Reason for continuing: Not indwelling catheter Insertion date: 12/23/17 Insertion time: 01:00 Removal date: 12/22/17 Removal time: 01:00 Condom Cath placed during this visit: no Results - Labs CBC & Chem 7: 12/30/17 06:11 12/30/17 06:11 Laboratory Results - last 24 hr 12/29/17 12/30/17 12/30/17 19:46 04:55 06:11 WBC 10.1 RBC 3.23 L Hgb 9.8 L Hct 29.3 L MCV 90.6 MCH 30.2 MCHC 33.4 RDW 14.7 Plt Count 126 L MPV 9.3 Prelim Diff (Auto) Slide review pending Neut % (Auto) 87.0 H Lymph % (Auto) 6.3 L [place] % (Auto) 5.8 Eos % (Auto) 0.7 Baso % (Auto) 0.2 Neut # (Auto) 8.8 H Lymph # (Auto) 0.6 L [place] # (Auto) 0.6 Eos # (Auto) 0.1 Baso # (Auto) 0.0 WBC Differential Manual diff final Seg Neuts % (Manual) 88 H Band Neuts % (Manual) 1 Lymphocytes % (Manual) 4 L Monocytes % (Manual) 4 Myelocytes % (Man) 3 H Abs Neuts (Manual) 9.3 H Differential Comment . Platelet Estimate Low L Platelet Morphology Normal Puncture Site Right radial Patient Temperature 98.6 O2 Saturation 93 ABG pH 7.43 H ABG pCO2 51 H* ABG pO2 76 ABG HCO3 33 H ABG O2 Content 12.7 ABG Base Excess 8.6 H ABG Methemoglobin 0.9 Krishna Test Present Hemoglobin 9.7 L Carboxyhemoglobin 2.0 O2 Delivery Device Nasal cannula Liter Flow 6.00 Critical Value Yes Sodium Potassium Chloride Carbon Dioxide Anion Gap BUN Creatinine Estimated GFR POC Glucose 82 Random Glucose Lactic Acid Calcium Total Bilirubin AST ALT Alkaline Phosphatase B-Natriuretic Peptide Total Protein Albumin 12/30/17 12/30/17 12/30/17 06:11 06:11 06:11 WBC RBC Hgb Hct MCV MCH MCHC RDW Plt Count MPV Prelim Diff (Auto) Neut % (Auto) Lymph % (Auto) [place] % (Auto) Eos % (Auto) Baso % (Auto) Neut # (Auto) Lymph # (Auto) [place]ayer # (Auto) Eos # (Auto) Baso # (Auto) WBC Differential Seg Neuts % (Manual) Band Neuts % (Manual) Lymphocytes % (Manual) Monocytes % (Manual) Myelocytes % (Man) Abs Neuts (Manual) Differential Comment Platelet Estimate Platelet Morphology Puncture Site Patient Temperature O2 Saturation ABG pH ABG pCO2 ABG pO2 ABG HCO3 ABG O2 Content ABG Base Excess ABG Methemoglobin Krishna Test Hemoglobin Carboxyhemoglobin O2 Delivery Device Liter Flow Critical Value Sodium 138 Potassium 3.8 Chloride 98 Carbon Dioxide 32.7 H Anion Gap 7 BUN 21 H Creatinine 0.81 Estimated GFR Greater than 89 POC Glucose Random Glucose 161 H Lactic Acid 1.0 Calcium 8.0 L Total Bilirubin 0.6 AST 40 H ALT 52 Alkaline Phosphatase 141 H B-Natriuretic Peptide 241 H Total Protein 5.5 L Albumin 2.2 L - Imaging Impressions Chest X-Ray 12/29/17 12:02 CONCLUSION: 1. Interval extubation. 2. No significant change in the left pleural-based opacity calcification. Chest X-Ray 12/30/17 00:00 CONCLUSION: 1. Worsening airspace disease in the right mid to lower lung zones. 2. Persistent prominent left-sided pleural thickening and calcified pleural plaques with associated volume loss. 3. Stable right apical pleural-parenchymal scarring. Assessment and Plan - Assessment (1) Respiratory failure requiring intubation Code(s): J96.90 - Respiratory failure, unspecified, unspecified whether with hypoxia or hypercapnia Status: Acute (2) Pneumonia Code(s): J18.9 - Pneumonia, unspecified organism Status: Acute (3) CHF (congestive heart failure), NYHA class II Code(s): I50.9 - Heart failure, unspecified Status: Acute (4) CHF (congestive heart failure) Code(s): I50.9 - Heart failure, unspecified Status: Acute (5) Respiratory abnormalities Code(s): J98.9 - Respiratory disorder, unspecified Status: Acute (6) Emphysema of lung Code(s): J43.9 - Emphysema, unspecified Status: Acute (7) Borderline diabetes mellitus Code(s): R73.03 - Prediabetes Status: Acute (8) Fracture, intertrochanteric, left femur Code(s): S72.142A - Displaced intertrochanteric fracture of left femur, initial encounter for closed fracture Status: Acute (9) Nutrition, metabolism, and development symptoms Code(s): R63.8 - Other symptoms and signs concerning food and fluid intake Status: Acute - Plan RECOMMENDATIONS: 1. Transfer to [facility] [place] 2. Bronchodilators in the form of DuoNeb q.6 plus q.[address] on BIPAP 15/7 , fio2 50 % 4. cont prednisone 10 mg BID 5. Continue with Lasix 40 mg daily. 6. Cont antibiotics Zosyn/Vanco 7. CXR ,BMP CBC 8.D/W Family
[2017-12-30 12:58] LABS: ABG Base Excess 8.6 mmol/L (-2-2); ABG PCO2 53 mmHg (38-42); ABG PO2 148 mmHG (61-120)
--- NOTE | 2017-12-30 13:12 | P.PNWCN ---
Wound Care Nurse Consult Description: Consult for Wound Management of sacrum/buttocks per Dr Dyson Communicated with: Patient, family, RN at bedside Recommendation: Encrust wounds to left and right buttocks when open/exposed followed by an application of Calazime BID and PRN for moisture and friction. For Stage II pressure injury to left buttock, along with above treatment, PLEASE reposition Q2H for pressure relief. PLEASE DO NOT use cotton pull pads for moisture as they only create a harder surface, generate more heat, and do not wick away moisture. Encrusting as follows: Apply stoma powder to open wounds on right and left buttocks, wipe off excess. [place] with Cavilon skin barrier film. May repeat twice. Additional information: Patient seen on for wound evaluation. Wound/Pressure Injury - Patient Status Premedicated for Pain Prior to Dressing Change: No - Wound Left Buttock Wound Staging: Stage II Wound Assessment: Ongoing Wound Type: Pressure Injury (with moisture and friction etiology as evidenced by the wound margins on all three wounds.) Is This a Chronic Wound: No Requested from Provider a Wound Care Consult: Yes (Dr Dyson) Length (cm): 3.8 (cm) Width (cm): 3 (cm) Depth (cm): 0.1 (cm) Wound Bed Appearance: [place], Red Wound Bed Appearance: shallow, partial thickness skin loss with sharp defined oval wound margins. Drainage Amount: None Drainage Odor: No Odor Dressing Status: Open to Air Topical: stoma powder, Cavilon skin barrier film, Calazime Right Buttock Wound Type: Skin Tear Is This a Chronic Wound: No Wound Bed Appearance: Peeling Skin, [place], Red Wound Bed Appearance: shallow, jagged wounds Drainage Amount: None Drainage Odor: No Odor Dressing Status: Open to Air Cleansing Solution: Saline Topical: Stoma powder, Cavilon, Calazime - Additional Information Patient was positioned to his left side for assessment. Two wounds noted to right buttock, largest measuring 1cm x 3cm x <0.1cm of pink moist tissue with no active drainage and no odor. Smaller wound to right buttock measures 1.3cm x 1cm x <0.1cm of dull red tissue with no active drainage and no odor. Both wounds have jagged peeling wound margins indicating a moisture/friction etiology. Left buttock wound is largest of all wounds visualized and oval in shape indicating a pressure injury measuring 3.8cm x 3cm x <0.1cm of red non granulating tissue. Wound margins are sharp and well defined further indicating a pressure injury Stage II as the wound bed is partial thickness skin loss. There is no active drainage and no odor. All wounds were quickly cleansed and encrusted prior to applying Calazime skin protectant paste, as patient oxygen saturation was low per the RN. Patient was repositioned to his left side and sat up in bed. Patient family was educated on wound healing criteria such as oxygen, pressure relief, nutrition, and use of disposable underpads vs thick cotton pull pads. All persons present verbalized understanding of teaching.
[2017-12-30] MEDS: MethylPREDNISolone Sod Succinate Inj 40 MG/ML Vial IV.PUSH SCH ×2 (14:35→21:57)
--- NOTE | 2017-12-30 15:00 | P.PNCC ---
Subjective Subjective Remarks/Hospital Course: 82-year-old male with past medical history of COPD and CHF presents for an evaluation of shortness of breath and hypoxemia worsening over past few days. The nebulizer treatments helped initially however today there were not helpful. EMS reports on scene the O2 sat was in the 80s. He received high flow oxygen and nebulized albuterol in route here. His blood pressure initially in the emergency department was 200/100 however trended down to about 160/90. BiPAP was started in the emergency department with improvement in his O2 sat that has trended towards the high 90s with 100% FiO2 on BiPAP. Shortly after transfer to ICU the patient continues to to be more hypoxemic and restless requiring endotracheal intubation and mechanical ventilation. 12/20: intubated and sedated. still hypercarbic with [id number] respiratory acidosis. family unhappy that patient was intubated: they insisted last night on being a Full Code, but apparently the daughter required that she be notified of exactly what SpO2 the patient was at, and it had to reach a certain low level before she would be ok with intubation. Per overnight records , patient presented with severe respiratory distress, and family reports that EMS stated patient "wouldn't make it all the way to [facility]" due to his pulmonary instability. This morning, hypoxia is somewhat improved. remains on broad spectrum antibiotics. I explained to family that this is likely a new pneumonia causing respiratory failure. I also explained that after recent hip fracture and recent prolonged hospitalization, his baseline end-stage lung disease and NYHA Class IV symptoms are likely to worsen, and this may be worsening of his overall end-stage disease processes. Family continues to state that our facility caused his lung failure during the prior hospitalization. They are also concerned about his poor peripheral perfusion and oliguria, which concerns me also: I explained that his heart failure could not tolerate significant amount of iv fluids, and we have already given him 1500mL over the last 12 hours, but they have insisted on additional iv fluids. I explained he had severe sepsis and the mortality associated with this. Daughter continues to remind me that her father "is coming home with her and getting better" as she has stated multiple times in the past. 12/21: no improvements. remains intubated. clinically becoming volume overloaded - will be forced to start diuresis. 12/22: mental status slightly improved. still failing weaning attempts. 12/23: Afebrile. Currently on PSV trial 15/7 at 45%. Discussed with and daughter at bedside. Chest x-ray revealed ET tube at [place]. Retracted 1 cm. Tolerating tube feeds with family requested 40 cc an hour. Subjective: 12/24: Afebrile. Currently CPAP trial FiO2 at 45%. Tolerating tube feeds if family requested 40 cc an hour. Receiving morphine 1-2 mg every 4 hours as needed pain. 12/25 No events overnight remains intubated off sedation. Tolerated CPAP for several hrs yesterday. Afebrile. 12/26 No events overnight. Patient tolerated CPAP for most of day yesterday. Awake and alert follows commands, on no sedation. 12/27 Patient was extubated yesterday on 4L oxygen. Awake. Afebrile. 12/28 No events overnight. Remains on 4L oxygen. Awake and alert. 12/30: RECONSULT NOTE: reconsulted as rapid response for hypoxia. per the family , patient had desaturation episode to the 60s, placed on NRB. family insisted on transfer back to ICU. when I saw patient on arrival to ICU, patient spo2 99% on NRB. pao2 on NRB was 150. patient is well-known to me with baseline spo2 82- 86% on 5L o2 by NC at home. family states he has another pneumonia. on my review of CXR and lab evidence, unclear if this is new pneumonia vs. old chronic lung disease. patient denies sob or new symptoms. Objective Vital Signs / I&O: Vital Signs 12/29/17 15:14 12/29/17 16:00 12/29/17 18:00 Temperature 36.6 C Pulse Rate 100 H 103 H 103 H Respiratory Rate 15 22 Blood Pressure 152/79 H Pulse Oximetry 95 12/29/17 19:30 12/29/17 19:42 12/29/17 20:00 Temperature 36.8 C Pulse Rate 100 H 105 H Respiratory Rate 20 16 Blood Pressure 146/68 H Pulse Oximetry 92 L 92 L 92 L 12/29/17 23:38 12/30/17 00:00 12/30/17 04:00 Temperature 36.7 C 36.7 C Pulse Rate 102 H 107 H 108 H Respiratory Rate 18 18 18 Blood Pressure 157/73 H 146/73 H Pulse Oximetry 91 L 12/30/17 04:31 12/30/17 06:25 12/30/17 08:00 Temperature 37.1 C Pulse Rate 105 H 97 H Respiratory Rate 22 17 Blood Pressure 140/65 Pulse Oximetry 93 L 94 L 96 12/30/17 12:00 12/30/17 12:12 Temperature Pulse Rate 98 H 89 Respiratory Rate 17 20 Blood Pressure 148/65 H Pulse Oximetry 97 Intake & Output 12/29/17 12/30/17 12/30/17 18:59 06:59 18:59 Intake Total 100 / 100 600 / 600 Output Total 100 / 100 200 / 200 Balance -100 / -100 -100 / -100 600 / 600 Intake: IV 100 / 100 600 / 600 Azithromycin Inj 500 MG In NS 250 / 250 Inj 250 ML @ 250 mls/hr IV.SIG Q24H [facility] Rx#:[id number] Zosyn 4.5 GM Premix 4.5 gm In 100 / 100 100 / 100 100 ml @ 200 mls/hr IV.SIG Q6H [facility] Rx#:[id number] Vancomycin Inj 700 MG In NS Inj 250 / 250 250 ML @ 250 mls/hr IV.SIG ONCE ONE Rx#:[id number] Output: Urine 100 / 100 200 / 200 Other: Date of Last Bowel Movement 12/28/17 12/29/17 Result Diagrams: 12/30/17 06:11 12/30/17 06:11 Objective Remarks: GENERAL: 82-year-old male lying in bed, no acute distress. HEENT: Normocephalic. Atraumatic. Pupils equal, round, reactive, conjugate. Mucous membranes are moist NECK: Trachea is midline. No JVD, CHEST: B/l equal air entry, coarse breath sounds, scant wheezes. CARDIOVASCULAR: Normal rate, regular rhythm. sinus. ABDOMEN: Soft, nontender, nondistended. No guarding. MUSCULOSKELETAL: Pulses 2+. significant evidence of scrotal edema. 1+ peripheral edema. 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 will wean o2 as tolerated. continue abx and appreciate pulmonary recommendations. will watch in ICU. if he remains stable, can return to hospitalist service tomorrow. Neuro/Psych: Acute metabolic encephalopathy- resolved Awake and follows commands. 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 Normal left ventricular size. Wall thickness is normal. No regional wall motion abnormalities are present. Diffuse calcification of the aortic valve but no significant stenosis. There is mild to moderate tricuspid valve regurgitation. The estimated pulmonary arterial pressure is 76.9 mmHg with severe pulmonary hypertension. Continue furosemide 40 mg daily/home medication: one time lasix 80mg iv. As needed labetalol and Nitropaste for hypertension Renal/: Acute kidney injury History of nephrolithiasis Monitor renal function, I/O's, electrolytes replacement per protocol. On Lasix 40mg daily FEN/GI: Severe acute protein calorie malnutrition Hypernatremia On PO diet Lansoprazole for GI prophylaxis Docusate sodium/senna 1 tablet twice daily for bowel regimen Heme/ID: Healthcare associated pneumonia Severe sepsis- present on admission Normocytic anemia Thrombocytopenia On piperacillin/tazobactam and azithromycin since 12/20 , had been discontinued, now restarted by pulmonary. Sputum culture 12/20-shea resp vaishnavi Blood cultures 12/19 no growth Urine UA with urine culture 12/20-NGTD Negative Legionella and pneumococcal urinary antigens Monitor CBC daily and follow trends. No indication for transfusion of blood products at this time Endocrine: Hyperglycemia of critical illness -- SSI to maintain euglycemia with aspart insulin every 6 hours high. insulin detemir 5 twice daily MSK:: History of left IT nailing 11/14 Vitamin D deficiency PT evaluate and treat Prophylaxis: GI Prophylaxis Lansoprazole DVT Prophylaxis -- SCDs Enoxaparin Lines: Peripheral IVs
[2017-12-30] MEDS: Acetaminophen 325 MG Tablet PO PRN (22:10)
[2017-12-31] MEDS: Piperacil/Tazo 4.5 GM Premix 4.5 GM/100 ML BAG IV.SIG SCH ×3 (00:19→11:35)
[2017-12-31] MEDS: Insulin NovoLOG Aspart Correctional Sugar Inj SQ SCH ×3 (00:24→11:50)
--- NOTE | 2017-12-31 04:23 | XR ---
EXAM DATE: 12/31/2017 12:00 AM EDT AGE/SEX: 82 years / Male INDICATIONS: Shortness of breath, possible pulmonary disease. CLINICAL DATA: This is the patient's subsequent encounter. Patient reports that signs and symptoms h ave been present for 2 weeks and indicates a pain score of Nonresponsive. MEDICAL/SURGICAL HISTORY: Chronic obstructive pulmonary disease. Diabetes mellitus type II. S epsis. CHF. Lobectomy. COMPARISON: [facility] – [place], [place]ST 1V SINGLE AP, 12/30/2017. . FINDINGS: Persistent diffuse left-sided pleural opacity with associated volume loss. Slight improved aeration i n the right mid to lower lung zones. Persistent right apical pleural-parenchymal opacity. Cardiomedia stinal contours are stable. Remainder of exam is unchanged. CONCLUSION: 1. Slightly improved right mid to lower lung zone airspace disease. 2. Persistent prominent diffuse left-sided pleural opacity/thickening with associated left lung volu me loss. 3. Stable right apical pleural parenchymal scarring. Electronically signed by: Kyaw Gallo MD 12/31/2017 4:22 AM EDT
[2017-12-31] MEDS: Vancomycin Inj 750 MG in Sodium Chlor 0.9% Inj 250 ML IV.SIG SCH (06:00)
[2017-12-31 06:33] LABS: Hematocrit 29.3 % (39.0-51.0); Hemoglobin 9.7 gm/dL (13.0-17.0); Mean Corpuscular Hemoglobin 30.1 pg (27.0-34.0); Mean Corpuscular Volume 91.1 fL (80.0-100.0); Mean Platelet Volume 9.4 fL (7.0-11.0); Platelet Count 110 th/mm3 (150-450); Red Blood Count 3.22 mil/mm3 (4.50-5.90); Red Cell Distribution Width 14.8 % (11.6-17.2); White Blood Count 8.3 th/mm3 (4.0-11.0)
[2017-12-31 06:56] LABS: Anion Gap 6 meq/L (5-15); Blood Urea Nitrogen 18 mg/dL (7-18); Calcium 7.7 mg/dL (8.5-10.1); Carbon Dioxide 36.3 meq/L (21.0-32.0); Chloride 98 meq/L (98-107); Glomerular Filtration Rate Greater Than 89 mL/min (>89); Glucose,Random 170 mg/dL (74-106); Magnesium 1.9 mg/dL (1.5-2.5); Potassium 3.4 meq/L (3.5-5.1); Sodium 140 meq/L (136-145)
[2017-12-31] MEDS: MethylPREDNISolone Sod Succinate Inj 40 MG/ML Vial IV.PUSH SCH ×3 (06:56→21:54)
[2017-12-31] MEDS: Oral Hygiene Kit OROPHARYNG SCH ×3 (06:56→15:06)
[2017-12-31 06:57] LABS: Phosphorus 3.7 mg/dL (2.5-4.9)
[2017-12-31] MEDS: Chlorhexidine 0.12% Oral Kit 15 ML UDC OROPHARYNG SCH ×2 (07:39→21:56)
[2017-12-31] MEDS: Enoxaparin Inj 40 MG/0.4 ML Syringe SQ SCH (08:12)
[2017-12-31] MEDS: Furosemide 40 MG Tablet PO SCH (08:12)
[2017-12-31] MEDS: Azithromycin Inj 500 MG in Sodium Chlor 0.9% Inj 250 ML IV.SIG SCH (08:12)
[2017-12-31] MEDS: Budesonide-Formoterol 160/4.5 MCG 6 GM Inhaler INH SCH ×2 (08:13→21:56)
[2017-12-31] MEDS: Carboxymethylcellulose 0.5% Opth Drops 15 ML Bottle EACH EYE SCH ×2 (08:13→21:55)
[2017-12-31] MEDS: Insulin Detemir Inj 1,000 UNIT/10 ML Vial SQ SCH ×2 (08:20→21:55)
[2017-12-31] MEDS: Potassium Chlor 20 mEq Premix 20 MEQ/100 ML PIGGYBACK IV.SIG PRN ×2 (09:24→11:51)
--- NOTE | 2017-12-31 12:01 | P.PNPAL ---
Reason for Visit Reason for visit: a. To assist with evaluation and management of symptoms including: dyspnea, pain b. To assist medical decision maker(s) with: better understanding of current medical conditions; weighing benefits/burdens of medical treatment options; making medical treatment decisions. Subjective Subjective/Interval History: Patient seen today to follow up on comfort/goals. S/p medical extubation 12/26. Tolerating NC, 4lpm. Critical care signed off to hospitalist, pt was transferred out of ICU Thursday. Yesterday pt w de-saturation , HALICAT evaluation, transferred back to ICU. CBC stable/unremarkable. CXR yesterday slightly worsened, slightly improved today, looks essentially unchanged from multiple recent CXRs. ABG yesterday w pO2 148, otherwise not significantly changed from pt baseline ABGs. chemistry stable/unremarkable, renal function stable. started on azithromycin. Patient seen in room lethargic, , daughter at bedside. Pt vocal- verbalizes loudly frustrations from yesterdays events, daughter also expresses frustrations , family verbalizes they feel his needs were not being met on regular medical floor/unit. and daughter verbalized that they had concerns about his oxygen status early in the day however they tell me their concerns were not addressed until patient had desaturation. They feel today he is very lethargic and his condition is worsened due to yesterday's events. They verbalized that Thursday and Thursday "he was doing fine ". Supportive listening provided. Advise I would forward nursing concerns to unit' s market relationship manager (on 4th floor) Review with them most recent diagnostics including labs, x-rays current clinical assessment findings. Review with them patient recent labs, diagnostics in comparisons with yesterday's and today's. Explore my clinical findings today patient currently appears stable though certainly very tired. Further gently explored with them underlying lung condition, and that overall he will continue to experience waxing and waning related to his poor lung status. They attribute this poor lung status to events initially suffered during recent hospitalization in October, and a assert that earlier this week he was still "doing fine", he was up in a chair and eating, and yesterday's events have again set the patient back. tearful at times. gently explore that his condition will wax and wane and that I am concerned he will not make a full recovery even with ongoing ICU care, he may continue to experience setbacks. Review pt may need periods of rest following periods of activity, ie up in chair, due to debilitated status. All questions answered to the best of my ability. They have palliative contact information. Discussed with critical care , +ICU nurse. Additional history per recent admission 11/13/17: Patient with known history CHF, diabetes, COPD, pulmonary fibrosis and asbestosis, presented to the ED after sustaining a fall in his home. He was lightheaded. Baseline 3-4 L nasal cannula requiring significant assistance with ADLs. Also with known history of LEFT thoracotomy and lobectomy/resection many years ago. Imaging finding of intertrochanteric fracture of proximal left hip. Also findings of osteopenia. Pulmonology evaluated patient and noted that he was cleared for surgery though may require BiPAP after. Suggested limited anesthesia secondary to moderately failure and/or pneumonia. Orthopedics consulted reviewed options family requested to proceed with operative management. During that admission noted during attending discussion with family daughter reports baseline mental status with some component of a dementia. Patient's primary language also reported to be a telemetry and though they requested no interpretation service be used during encounters because this would make him upset. During that hospital course patient did require ICU on BiPAP. Patient with some agitation. Anemia requiring transfusion postoperatively. Ongoing respiratory complication and concern for respiratory decompensation that could require mechanical ventilation and could result in difficulty weaning. Critical care notes discussion with family requested full CODE STATUS and continued aggressive management. Outpatient CT per Dr. Guerrier demonstrated pulmonary fibrosis and bronchiectasis. Patient did have a VQ scan during that admission with ventilation abnormally and perfume and of normal least left lower lobe pattern not typical of PE likely related to lobectomy. Avoiding CTA due to worsening renal function, family did not wish to assume risk. During that hospital course it is noted family [facility], critical care attempted to initiate that process. [facility] declined admission. Patient was also evaluated for LTAC, insurance apparently denied LTAC. Family appealed this and patient was later accepted by [facility]. He was discharged to [facility] 11/20/17 Objective Vital Signs: Vital Signs 12/30/17 12:00 12/30/17 12:12 12/30/17 16:00 Temperature Pulse Rate 98 H 89 101 H Respiratory Rate 17 20 18 Blood Pressure 148/65 H 126/86 Pulse Oximetry 97 94 L 12/30/17 16:17 12/30/17 17:00 12/30/17 18:00 Temperature Pulse Rate 100 H 104 H 102 H Respiratory Rate 30 H 34 H 33 H Blood Pressure 147/63 H 151/87 H Pulse Oximetry 95 95 96 12/30/17 19:00 12/30/17 20:00 12/30/17 20:03 Temperature 97.4 F L Pulse Rate 104 H 104 H 104 H Respiratory Rate 28 H 30 H 16 Blood Pressure 147/68 H 138/76 Pulse Oximetry 95 99 98 12/30/17 21:00 12/30/17 22:00 12/30/17 23:01 Temperature Pulse Rate 111 H 107 H 101 H Respiratory Rate 32 H 31 H 31 H Blood Pressure 167/69 H 142/65 H 150/73 H Pulse Oximetry 93 L 99 99 12/30/17 23:41 12/31/17 00:00 12/31/17 01:00 Temperature 97.9 F Pulse Rate 93 H 97 H 96 H Respiratory Rate 18 28 H 27 H Blood Pressure 155/65 H 141/65 H Pulse Oximetry 98 99 12/31/17 02:00 12/31/17 03:00 12/31/17 03:45 Temperature Pulse Rate 87 81 80 Respiratory Rate 21 20 20 Blood Pressure 148/65 H 136/61 Pulse Oximetry 100 100 12/31/17 04:00 12/31/17 05:00 12/31/17 06:00 Temperature 97.9 F Pulse Rate 80 84 85 Respiratory Rate 22 20 22 Blood Pressure 124/61 133/60 125/57 L Pulse Oximetry 98 98 98 12/31/17 06:52 12/31/17 08:00 12/31/17 08:05 Temperature 97.4 F L Pulse Rate 85 85 88 Respiratory Rate 22 23 19 Blood Pressure 125/57 L 158/73 H Pulse Oximetry 98 92 L 98 Intake & Output 12/30/17 12/31/17 12/31/17 18:59 06:59 18:59 Intake Total 600 / 600 440 / 440 607.5 / 607.5 Output Total 1200 / 1200 500 / 500 Balance -600 / -600 -60 / -60 607.5 / 607.5 Weight 70 kg Intake: IV 600 / 600 200 / 200 607.5 / 607.5 Azithromycin Inj 500 MG In NS 250 / 250 250 / 250 Inj 250 ML @ 250 mls/hr IV.SIG Q24H [facility] Rx#:[id number] Zosyn 4.5 GM Premix 4.5 gm In 100 / 100 200 / 200 100 / 100 100 ml @ 200 mls/hr IV.SIG Q6H [facility] Rx#:[id number] Vancomycin Inj 700 MG In NS Inj 250 / 250 250 ML @ 250 mls/hr IV.SIG ONCE ONE Rx#:[id number] Vancomycin Inj 750 MG In NS Inj 257.5 / 257.5 250 ML @ 250 mls/hr IV.SIG Q24H [facility] Rx#:[id number] Oral 240 / 240 Output: Urine 1200 / 1200 500 / 500 Other: Date of Last Bowel Movement 12/29/17 12/31/17 12/30/17 # Bowel Movements 1 Physical Exam: CONSTITUTIONAL/GENERAL: This is a thin elderly male, lethargic in ICU bed. TUBES/LINES/DRAINS: peripheral IVs to bilateral upper extremities. Nasal cannula SKIN: No jaundice, rashes, or lesions. Some areas of ecchymosis bilateral hands. Extensive ecchymosis along left hip, upper leg. Some areas of fading. No wounds seen anteriorly-reports sacral/buttock wound . Skin warm/dry. EYES: Pupils 2.5mm/ reactive to light. No scleral icterus. No injection or drainage. Fundi not examined. ENT: Nose without bleeding or purulent drainage. Throat without visible erythema, exudates CARDIOVASCULAR: Regular rate and rhythm without murmur, rate 90s. No JVD. Peripheral pulses symmetric. slight scrotal edema improved from prior exam, slight edema to upper legs/hip region. RESPIRATORY/CHEST: Symmetric, unlabored respirations on 5L simple mask. Left side was decreased air movement. Right essentially clear. faint expiratory wheeze rt posterior base GASTROINTESTINAL: Abdomen soft, no tenderness. No palpable masses. Bowel sounds present. GENITOURINARY: Without palpable bladder distension. MUSCULOSKELETAL: Extremities without clubbing, cyanosis. No joint tenderness or effusion noted. No mottling or clubbing. NEUROLOGICAL: lethargic, arouses slightly to exam, opens eyes, then resumes sleeping. moves all 4 extremities weakly. Pupils 2.5mm reactive to light. PSYCHIATRIC: calm no apparent anxiety. Diagnostic Tests Laboratory: Laboratory Results - last 72 hr 1012/28/17 12/28/17 11:57 18:08 20:06 WBC RBC Hgb Hct MCV MCH MCHC RDW Plt Count MPV Prelim Diff (Auto) Neut % (Auto) Lymph % (Auto) Hud[place] % (Auto) Eos % (Auto) Baso % (Auto) Neut # (Auto) Lymph # (Auto) Hud[place] # (Auto) Eos # (Auto) Baso # (Auto) WBC Differential Diff Scan Seg Neuts % (Manual) Band Neuts % (Manual) Lymphocytes % (Manual) Monocytes % (Manual) Myelocytes % (Man) Abs Neuts (Manual) Differential Comment Platelet Estimate Platelet Morphology Ovalocytes Puncture Site Patient Temperature O2 Saturation ABG pH ABG pCO2 ABG pO2 ABG HCO3 ABG O2 Content ABG Base Excess ABG Methemoglobin Krishna Test Hemoglobin Carboxyhemoglobin O2 Delivery Device Liter Flow Critical Value Sodium Potassium 4.2 D Chloride Carbon Dioxide Anion Gap BUN Creatinine Estimated GFR POC Glucose 148 H 213 H Random Glucose Lactic Acid Calcium Phosphorus Magnesium Total Bilirubin AST ALT Alkaline Phosphatase B-Natriuretic Peptide Total Protein Albumin 12/28/17 12/29/17 12/29/17 23:12 06:10 06:30 WBC 10.8 RBC 3.31 L Hgb 10.1 L Hct 30.0 L MCV 90.5 MCH 30.5 MCHC 33.7 RDW 14.4 Plt Count 113 L MPV 9.5 Prelim Diff (Auto) Slide review pending Neut % (Auto) 84.9 H Lymph % (Auto) 7.1 L Hud[place] % (Auto) 6.3 Eos % (Auto) 1.1 Baso % (Auto) 0.6 Neut # (Auto) 9.1 H Lymph # (Auto) 0.8 L [place] # (Auto) 0.7 Eos # (Auto) 0.1 Baso # (Auto) 0.1 WBC Differential . Diff Scan Auto diff confirmed Seg Neuts % (Manual) Band Neuts % (Manual) Lymphocytes % (Manual) Monocytes % (Manual) Myelocytes % (Man) Abs Neuts (Manual) Differential Comment . Platelet Estimate Platelet Morphology Ovalocytes 1+ H Puncture Site Patient Temperature O2 Saturation ABG pH ABG pCO2 ABG pO2 ABG HCO3 ABG O2 Content ABG Base Excess ABG Methemoglobin Krishna Test Hemoglobin Carboxyhemoglobin O2 Delivery Device Liter Flow Critical Value Sodium Potassium Chloride Carbon Dioxide Anion Gap BUN Creatinine Estimated GFR POC Glucose 171 H 138 H Random Glucose Lactic Acid Calcium Phosphorus Magnesium Total Bilirubin AST ALT Alkaline Phosphatase B-Natriuretic Peptide Total Protein Albumin 12/29/17 12/29/17 12/29/17 06:30 12:07 19:46 WBC RBC Hgb Hct MCV MCH MCHC RDW Plt Count MPV Prelim Diff (Auto) Neut % (Auto) Lymph % (Auto) [place] % (Auto) Eos % (Auto) Baso % (Auto) Neut # (Auto) Lymph # (Auto) Hudsp[place] # (Auto) Eos # (Auto) Baso # (Auto) WBC Differential Diff Scan Seg Neuts % (Manual) Band Neuts % (Manual) Lymphocytes % (Manual) Monocytes % (Manual) Myelocytes % (Man) Abs Neuts (Manual) Differential Comment Platelet Estimate Platelet Morphology Ovalocytes Puncture Site Patient Temperature O2 Saturation ABG pH ABG pCO2 ABG pO2 ABG HCO3 ABG O2 Content ABG Base Excess ABG Methemoglobin Krishna Test Hemoglobin Carboxyhemoglobin O2 Delivery Device Liter Flow Critical Value Sodium 137 Potassium 3.8 Chloride 97 L Carbon Dioxide 32.9 H Anion Gap 7 BUN 26 H Creatinine 0.78 Estimated GFR Greater than 89 POC Glucose 179 H 82 Random Glucose 127 H Lactic Acid Calcium 8.1 L Phosphorus 2.8 Magnesium 2.0 Total Bilirubin 0.5 AST 39 H ALT 53 Alkaline Phosphatase 125 H B-Natriuretic Peptide Total Protein 5.6 L Albumin 2.3 L 12/30/17 12/30/17 12/30/17 04:55 06:11 06:11 WBC 10.1 RBC 3.23 L Hgb 9.8 L Hct 29.3 L MCV 90.6 MCH 30.2 MCHC 33.4 RDW 14.7 Plt Count 126 L MPV 9.3 Prelim Diff (Auto) Slide review pending Neut % (Auto) 87.0 H Lymph % (Auto) 6.3 L Hudsp[place] % (Auto) 5.8 Eos % (Auto) 0.7 Baso % (Auto) 0.2 Neut # (Auto) 8.8 H Lymph # (Auto) 0.6 L [place] # (Auto) 0.6 Eos # (Auto) 0.1 Baso # (Auto) 0.0 WBC Differential Manual diff final Diff Scan Seg Neuts % (Manual) 88 H Band Neuts % (Manual) 1 Lymphocytes % (Manual) 4 L Monocytes % (Manual) 4 Myelocytes % (Man) 3 H Abs Neuts (Manual) 9.3 H Differential Comment . Platelet Estimate Low L Platelet Morphology Normal Ovalocytes Puncture Site Right radial Patient Temperature 98.6 O2 Saturation 93 ABG pH 7.43 H ABG pCO2 51 H* ABG pO2 76 ABG HCO3 33 H ABG O2 Content 12.7 ABG Base Excess 8.6 H ABG Methemoglobin 0.9 Krishna Test Present Hemoglobin 9.7 L Carboxyhemoglobin 2.0 O2 Delivery Device Nasal cannula Liter Flow 6.00 Critical Value Yes Sodium 138 Potassium 3.8 Chloride 98 Carbon Dioxide 32.7 H Anion Gap 7 BUN 21 H Creatinine 0.81 Estimated GFR Greater than 89 POC Glucose Random Glucose 161 H Lactic Acid Calcium 8.0 L Phosphorus Magnesium Total Bilirubin 0.6 AST 40 H ALT 52 Alkaline Phosphatase 141 H B-Natriuretic Peptide Total Protein 5.5 L Albumin 2.2 L 12/30/17 12/30/17 12/30/17 06:11 06:11 12:44 WBC RBC Hgb Hct MCV MCH MCHC RDW Plt Count MPV Prelim Diff (Auto) Neut % (Auto) Lymph % (Auto) [place]ud[place] % (Auto) Eos % (Auto) Baso % (Auto) Neut # (Auto) Lymph # (Auto) [place]ud[place] # (Auto) Eos # (Auto) Baso # (Auto) WBC Differential Diff Scan Seg Neuts % (Manual) Band Neuts % (Manual) Lymphocytes % (Manual) Monocytes % (Manual) Myelocytes % (Man) Abs Neuts (Manual) Differential Comment Platelet Estimate Platelet Morphology Ovalocytes Puncture Site Left radial Patient Temperature 98.6 O2 Saturation 97 ABG pH 7.42 ABG pCO2 53 H* ABG pO2 148 H ABG HCO3 33 H ABG O2 Content 13.0 ABG Base Excess 8.6 H ABG Methemoglobin 1.3 Krishna Test Present Hemoglobin 9.3 L Carboxyhemoglobin 1.5 O2 Delivery Device Non-rebreathing mask Liter Flow 15.00 Critical Value Yes Sodium Potassium Chloride Carbon Dioxide Anion Gap BUN Creatinine Estimated GFR POC Glucose Random Glucose Lactic Acid 1.0 Calcium Phosphorus Magnesium Total Bilirubin AST ALT Alkaline Phosphatase B-Natriuretic Peptide 241 H Total Protein Albumin 12/30/17 12/31/17 12/31/17 17:46 00:13 04:43 WBC 8.3 RBC 3.22 L Hgb 9.7 L Hct 29.3 L MCV 91.1 MCH 30.1 MCHC 33.0 RDW 14.8 Plt Count 110 L MPV 9.4 Prelim Diff (Auto) Neut % (Auto) Lymph % (Auto) [place] % (Auto) Eos % (Auto) Baso % (Auto) Neut # (Auto) Lymph # (Auto) [place] # (Auto) Eos # (Auto) Baso # (Auto) WBC Differential Diff Scan Seg Neuts % (Manual) Band Neuts % (Manual) Lymphocytes % (Manual) Monocytes % (Manual) Myelocytes % (Man) Abs Neuts (Manual) Differential Comment Platelet Estimate Platelet Morphology Ovalocytes Puncture Site Patient Temperature O2 Saturation ABG pH ABG pCO2 ABG pO2 ABG HCO3 ABG O2 Content ABG Base Excess ABG Methemoglobin Krishna Test Hemoglobin Carboxyhemoglobin O2 Delivery Device Liter Flow Critical Value Sodium Potassium Chloride Carbon Dioxide Anion Gap BUN Creatinine Estimated GFR POC Glucose 289 H 266 H Random Glucose Lactic Acid Calcium Phosphorus Magnesium Total Bilirubin AST ALT Alkaline Phosphatase B-Natriuretic Peptide Total Protein Albumin 12/31/17 04:43 WBC RBC Hgb Hct MCV MCH MCHC RDW Plt Count MPV Prelim Diff (Auto) Neut % (Auto) Lymph % (Auto) [place] % (Auto) Eos % (Auto) Baso % (Auto) Neut # (Auto) Lymph # (Auto) [place] # (Auto) Eos # (Auto) Baso # (Auto) WBC Differential Diff Scan Seg Neuts % (Manual) Band Neuts % (Manual) Lymphocytes % (Manual) Monocytes % (Manual) Myelocytes % (Man) Abs Neuts (Manual) Differential Comment Platelet Estimate Platelet Morphology Ovalocytes Puncture Site Patient Temperature O2 Saturation ABG pH ABG pCO2 ABG pO2 ABG HCO3 ABG O2 Content ABG Base Excess ABG Methemoglobin Krishna Test Hemoglobin Carboxyhemoglobin O2 Delivery Device Liter Flow Critical Value Sodium 140 Potassium 3.4 L Chloride 98 Carbon Dioxide 36.3 H Anion Gap 6 BUN 18 Creatinine 0.82 Estimated GFR Greater than 89 POC Glucose Random Glucose 170 H Lactic Acid Calcium 7.7 L Phosphorus 3.7 Magnesium 1.9 Total Bilirubin AST ALT Alkaline Phosphatase B-Natriuretic Peptide Total Protein Albumin Result Diagrams: 12/31/17 04:43 12/31/17 04:43 Microbiology: Microbiology 12/19/17 21:20 Blood - Peripheral Aerobic Blood Culture - Final No growth in 5 days 12/19/17 21:20 Blood - Peripheral Anaerobic Blood Culture - Final No growth in 5 days 12/19/17 21:30 Blood - Peripheral Aerobic Blood Culture - Final No growth in 5 days 12/19/17 21:30 Blood - Peripheral Anaerobic Blood Culture - Final No growth in 5 days 12/20/17 14:10 Sputum - Endotracheal Gram Stain - Final 12/20/17 14:10 Sputum - Endotracheal Sputum Culture - Final Heavy growth normal respiratory vaishnavi 12/20/17 11:50 Clean Catch Urine Urine Culture - Final No growth in 48 hours 12/20/17 11:50 Urine - Catheterized Urine Legionella Antigen - Final Presumptive negative for Legionella pneumophila serogroup 1 antigen in urine, suggesting no recent or recurrent infection. Infection due to Legionella cannot be ruled out since other serogroups and species may cause disease, antigen may not be present in urine in early infection, and the level of antigen present in the urine may be below the detection limit of the test. 12/20/17 11:50 Urine - Catheterized Urine Streptococcus pneumoniae Antigen ( M - Final Presumptive negative for streptococcus pneumoniae antigen, suggesting no current or recent infection. Infection due to Streptococcus pneumoniae cannot be ruled out since the antigen present in the sample may be below the detection limit of the test. Imaging: Impressions Chest X-Ray 12/29/17 12:02 CONCLUSION: 1. Interval extubation. 2. No significant change in the left pleural-based opacity calcification. Chest X-Ray 12/30/17 00:00 CONCLUSION: 1. Worsening airspace disease in the right mid to lower lung zones. 2. Persistent prominent left-sided pleural thickening and calcified pleural plaques with associated volume loss. 3. Stable right apical pleural-parenchymal scarring. Chest X-Ray 12/31/17 00:00 CONCLUSION: 1. Slightly improved right mid to lower lung zone airspace disease. 2. Persistent prominent diffuse left-sided pleural opacity/thickening with associated left lung volume loss. 3. Stable right apical pleural parenchymal scarring. Assessment and Plan - Disease Oriented Problem List (1) COPD (chronic obstructive pulmonary disease) (2) CHF (congestive heart failure) (3) Respiratory distress (4) Sepsis (5) HCAP (healthcare-associated pneumonia) (6) NAHED (acute kidney injury) (7) Pulmonary hypertension (8) S/P lobectomy of lung Pertinent Non-Medical Issues: Psychosocial: Retired. Lived in [place] most of his life-- originally from [place], then moved to [place], then to [place]. 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 Supported by , 4 daughters, other extended family. Spiritual:baptism, sister providing spiritual care Legal:Patient unable to participate due to clinical condition. There is some question of underlying cognitive deficits. His would be appropriate legal decision maker. She is making decisions supported by the rest of the family, daughters, sister are very involved in his care in decision-making Ethical issues impacting care:no ethical issues identified Important Contacts: Sunshine Davenport [phone] Prognosis: This 82-year-old patient is currently hospitalized due to severe sepsis, with respiratory failure. He has multiple chronic comorbidities. 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 He also has underlying COPD, pulmonary fibrosis, prior lobectomy. Overall poor prognosis for survival from current acute issues. Code Status: Full Code Plan: * Legal decision maker: Patient unable to participate due to clinical condition. There is some question of underlying cognitive deficits. His would be appropriate legal decision maker. She is making decisions supported by the rest of the family, daughters, sister are very involved in his care in decision-making * Goals: aggressive goals; pt/family want to continue ongoing aggressive treatments to improve his condition, including full code. Family hopeful he will eventually return home with them * CODE STATUS: Full code * SYMPTOMS: --Dyspnea-admitted for shortness of breath. Desaturation reported at home. Urgently intubated upon arrival to ICU. CXR indicative right lower lung probable pneumonia. initially On broad-spectrum antibiotics. Cultures negative. Tolerated medical extubation 12/25. abx d/cd tolerating nasal cannula , to medical unit. HALICAT 12/30,for desaturation, now back in ICU, on simple mask. Due to recent pneumonia, intubation, debilitated status remains at risk for respiratory complications. --Pain-family endorses day to day at home patient did not endorse any pain. He is status post hip repair last month. Has been essentially bedbound since that time, potential sources would include recent hip surgery, as well as prolonged bedbound status and recent invasive procedures. Family endorses that pt is having some discomfort to his sacral region though they do not want him to have morphine because they feel that is too strong for him. Wound care consultation placed to evaluate what they report is area of concern to his sacrum and buttocks, they showed this provider picture on her cell phone today. --Insomnia at night-family has asked about possible use of low-dose Benadryl at bedtime to help patient with sleep they endorse that he has used that in the past at home with good results. Review with them risks/benefits of Benadryl use in the elderly. They would like to try this or something to help with sleep at night. Could consider 25 mg Benadryl or 0.25 mg Ativan x 1 at HS- cautious use given potential for sedation/lethargy. * Palliative care will continue to follow during hospital course as condition evolves, to assist patient/decision-maker with understanding of medical conditions, weighing benefits/burdens of treatment options, for clarification of goals of treatment. Additionally will assist with any symptoms of palliative concern Time Spent Total Floor Time (mins): 40 (chart review, PE, extensive d/w family, d/w crtical care, +dw nursing)
--- NOTE | 2017-12-31 17:56 | P.PNCC ---
Subjective Subjective Remarks/Hospital Course: 82-year-old male with past medical history of COPD and CHF presents for an evaluation of shortness of breath and hypoxemia worsening over past few days. The nebulizer treatments helped initially however today there were not helpful. EMS reports on scene the O2 sat was in the 80s. He received high flow oxygen and nebulized albuterol in route here. His blood pressure initially in the emergency department was 200/100 however trended down to about 160/90. BiPAP was started in the emergency department with improvement in his O2 sat that has trended towards the high 90s with 100% FiO2 on BiPAP. Shortly after transfer to ICU the patient continues to to be more hypoxemic and restless requiring endotracheal intubation and mechanical ventilation. 12/20: intubated and sedated. still hypercarbic with [id number] respiratory acidosis. family unhappy that patient was intubated: they insisted last night on being a Full Code, but apparently the daughter required that she be notified of exactly what SpO2 the patient was at, and it had to reach a certain low level before she would be ok with intubation. Per overnight records , patient presented with severe respiratory distress, and family reports that EMS stated patient "wouldn't make it all the way to [facility]" due to his pulmonary instability. This morning, hypoxia is somewhat improved. remains on broad spectrum antibiotics. I explained to family that this is likely a new pneumonia causing respiratory failure. I also explained that after recent hip fracture and recent prolonged hospitalization, his baseline end-stage lung disease and NYHA Class IV symptoms are likely to worsen, and this may be worsening of his overall end-stage disease processes. Family continues to state that our facility caused his lung failure during the prior hospitalization. They are also concerned about his poor peripheral perfusion and oliguria, which concerns me also: I explained that his heart failure could not tolerate significant amount of iv fluids, and we have already given him 1500mL over the last 12 hours, but they have insisted on additional iv fluids. I explained he had severe sepsis and the mortality associated with this. Daughter continues to remind me that her father "is coming home with her and getting better" as she has stated multiple times in the past. 12/21: no improvements. remains intubated. clinically becoming volume overloaded - will be forced to start diuresis. 12/22: mental status slightly improved. still failing weaning attempts. 12/23: Afebrile. Currently on PSV trial 15/7 at 45%. Discussed with and daughter at bedside. Chest x-ray revealed ET tube at [place]. Retracted 1 cm. Tolerating tube feeds with family requested 40 cc an hour. Subjective: 12/24: Afebrile. Currently CPAP trial FiO2 at 45%. Tolerating tube feeds if family requested 40 cc an hour. Receiving morphine 1-2 mg every 4 hours as needed pain. 12/25 No events overnight remains intubated off sedation. Tolerated CPAP for several hrs yesterday. Afebrile. 12/26 No events overnight. Patient tolerated CPAP for most of day yesterday. Awake and alert follows commands, on no sedation. 12/27 Patient was extubated yesterday on 4L oxygen. Awake. Afebrile. 12/28 No events overnight. Remains on 4L oxygen. Awake and alert. 12/30: RECONSULT NOTE: reconsulted as rapid response for hypoxia. per the family , patient had desaturation episode to the 60s, placed on NRB. family insisted on transfer back to ICU. when I saw patient on arrival to ICU, patient spo2 99% on NRB. pao2 on NRB was 150. patient is well-known to me with baseline spo2 82- 86% on 5L o2 by NC at home. family states he has another pneumonia. on my review of CXR and lab evidence, unclear if this is new pneumonia vs. old chronic lung disease. patient denies sob or new symptoms. 12/31: no changes. remains on simple mask at 6LPM. not in distress. family does not want to leave ICU and wants to continue ICU care for the remainder of the hospitalization. long discussion about needing to de-escalate level of care prior to hospital discharge. Objective Vital Signs / I&O: Vital Signs 12/30/17 18:00 12/30/17 19:00 12/30/17 20:00 Temperature 36.3 C L Pulse Rate 102 H 104 H 104 H Respiratory Rate 33 H 28 H 30 H Blood Pressure 151/87 H 147/68 H 138/76 Pulse Oximetry 96 95 99 12/30/17 20:03 12/30/17 21:00 12/30/17 22:00 Temperature Pulse Rate 104 H 111 H 107 H Respiratory Rate 16 32 H 31 H Blood Pressure 167/69 H 142/65 H Pulse Oximetry 98 93 L 99 12/30/17 23:01 12/30/17 23:41 12/31/17 00:00 Temperature 36.6 C Pulse Rate 101 H 93 H 97 H Respiratory Rate 31 H 18 28 H Blood Pressure 150/73 H 155/65 H Pulse Oximetry 99 98 12/31/17 01:00 12/31/17 02:00 12/31/17 03:00 Temperature Pulse Rate 96 H 87 81 Respiratory Rate 27 H 21 20 Blood Pressure 141/65 H 148/65 H 136/61 Pulse Oximetry 99 100 100 12/31/17 03:45 12/31/17 04:00 12/31/17 05:00 Temperature 36.6 C Pulse Rate 80 80 84 Respiratory Rate 20 22 20 Blood Pressure 124/61 133/60 Pulse Oximetry 98 98 12/31/17 06:00 12/31/17 06:52 12/31/17 08:00 Temperature 36.3 C L Pulse Rate 85 85 85 Respiratory Rate 22 22 23 Blood Pressure 125/57 L 125/57 L 158/73 H Pulse Oximetry 98 98 92 L 12/31/17 08:05 12/31/17 12:00 12/31/17 13:58 Temperature 36.5 C Pulse Rate 88 91 H Respiratory Rate 19 23 Blood Pressure 138/62 Pulse Oximetry 98 99 97 12/31/17 16:00 Temperature 36.6 C Pulse Rate 94 H Respiratory Rate 27 H Blood Pressure 141/74 H Pulse Oximetry 95 Intake & Output 12/30/17 12/31/17 12/31/17 18:59 06:59 18:59 Intake Total 600 / 600 440 / 440 1387.5 / 1387.5 Output Total 1200 / 1200 500 / 500 850 / 850 Balance -600 / -600 -60 / -60 537.5 / 537.5 Weight 70 kg Intake: IV 600 / 600 200 / 200 907.5 / 907.5 Azithromycin Inj 500 MG In NS 250 / 250 250 / 250 Inj 250 ML @ 250 mls/hr IV.SIG Q24H [facility] Rx#:[id number] Zosyn 4.5 GM Premix 4.5 gm In 100 / 100 200 / 200 200 / 200 100 ml @ 200 mls/hr IV.SIG Q6H [facility] Rx#:[id number] KCl 20 mEq Premix Inj 20 meq In 200 / 200 100 ml @ 50 mls/hr IV.SIG Q2H [facility] Rx#:[id number] Vancomycin Inj 700 MG In NS Inj 250 / 250 250 ML @ 250 mls/hr IV.SIG ONCE ONE Rx#:[id number] Vancomycin Inj 750 MG In NS Inj 257.5 / 257.5 250 ML @ 250 mls/hr IV.SIG Q24H [facility] Rx#:[id number] Oral 240 / 240 480 / 480 Output: Urine 1200 / 1200 500 / 500 850 / 850 Other: Date of Last Bowel Movement 12/29/17 12/31/17 12/31/17 # Bowel Movements 1 2 Result Diagrams: 12/31/17 04:43 12/31/17 04:43 Objective Remarks: GENERAL: 82-year-old male lying in bed, no acute distress. HEENT: Normocephalic. Atraumatic. Pupils equal, round, reactive, conjugate. Mucous membranes are moist NECK: Trachea is midline. No JVD, CHEST: B/l equal air entry, coarse breath sounds, scant wheezes. CARDIOVASCULAR: Normal rate, regular rhythm. sinus. ABDOMEN: Soft, nontender, nondistended. No guarding. MUSCULOSKELETAL: Pulses 2+. significant evidence of scrotal edema. 1+ peripheral edema. 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 again, his disease process is end-stage and his prognosis is poor. the family refuses to accept this, and presses on for aggressive care. will attempt to find SNF level care, but family undoubtedly will not allow SNF level care, as they are unhappy with any level of care that is not 24h ICU level care. remains full code with aggressive measures. no indication for ICU level care at this time. Will ask hospitalist service to assume care. from medical standpoint, can likely transfer out of ICU tomorrow. Neuro/Psych: Acute metabolic encephalopathy- resolved Awake and follows commands. 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 Normal left ventricular size. Wall thickness is normal. No regional wall motion abnormalities are present. Diffuse calcification of the aortic valve but no significant stenosis. There is mild to moderate tricuspid valve regurgitation. The estimated pulmonary arterial pressure is 76.9 mmHg with severe pulmonary hypertension. Continue furosemide 40 mg daily/home medication: one time lasix 80mg iv. As needed labetalol and Nitropaste for hypertension Renal/: Acute kidney injury History of nephrolithiasis Monitor renal function, I/O's, electrolytes replacement per protocol. On Lasix 40mg daily FEN/GI: Severe acute protein calorie malnutrition Hypernatremia On PO diet Lansoprazole for GI prophylaxis Docusate sodium/senna 1 tablet twice daily for bowel regimen Heme/ID: Healthcare associated pneumonia Severe sepsis- present on admission Normocytic anemia Thrombocytopenia On piperacillin/tazobactam and azithromycin since 12/20 , had been discontinued, now restarted by pulmonary. Reviewing radiographic evidence and lab evidence, I do not think he has an infectious source at this time, and it appears old scarring and improving consolidation. Sputum culture 12/20-shea resp vaishnavi Blood cultures 12/19 no growth Urine UA with urine culture 12/20-NGTD Negative Legionella and pneumococcal urinary antigens Monitor CBC daily and follow trends. No indication for transfusion of blood products at this time Endocrine: Hyperglycemia of critical illness -- SSI to maintain euglycemia with aspart insulin every 6 hours high. insulin detemir 5 twice daily MSK:: History of left IT nailing 11/14 Vitamin D deficiency PT evaluate and treat Prophylaxis: GI Prophylaxis Lansoprazole DVT Prophylaxis -- SCDs Enoxaparin Lines: Peripheral IVs
--- NOTE | 2017-12-31 17:57 | P.PN ---
Subjective Interval history: Alert and sitting up and seems comfortable. On a N/C now at 5 L. No chest pains. Used BiPAP last Night but hates it. Physical Exam Vital signs: Vital Signs 12/30/17 18:00 12/30/17 19:00 12/30/17 20:00 Temperature 97.4 F L Pulse Rate 102 H 104 H 104 H Respiratory Rate 33 H 28 H 30 H Blood Pressure 151/87 H 147/68 H 138/76 Pulse Oximetry 96 95 99 12/30/17 20:03 12/30/17 21:00 12/30/17 22:00 Temperature Pulse Rate 104 H 111 H 107 H Respiratory Rate 16 32 H 31 H Blood Pressure 167/69 H 142/65 H Pulse Oximetry 98 93 L 99 12/30/17 23:01 12/30/17 23:41 12/31/17 00:00 Temperature 97.9 F Pulse Rate 101 H 93 H 97 H Respiratory Rate 31 H 18 28 H Blood Pressure 150/73 H 155/65 H Pulse Oximetry 99 98 12/31/17 01:00 12/31/17 02:00 12/31/17 03:00 Temperature Pulse Rate 96 H 87 81 Respiratory Rate 27 H 21 20 Blood Pressure 141/65 H 148/65 H 136/61 Pulse Oximetry 99 100 100 12/31/17 03:45 12/31/17 04:00 12/31/17 05:00 Temperature 97.9 F Pulse Rate 80 80 84 Respiratory Rate 20 22 20 Blood Pressure 124/61 133/60 Pulse Oximetry 98 98 12/31/17 06:00 12/31/17 06:52 12/31/17 08:00 Temperature 97.4 F L Pulse Rate 85 85 85 Respiratory Rate 22 22 23 Blood Pressure 125/57 L 125/57 L 158/73 H Pulse Oximetry 98 98 92 L 12/31/17 08:05 12/31/17 12:00 12/31/17 13:58 Temperature 97.7 F Pulse Rate 88 91 H Respiratory Rate 19 23 Blood Pressure 138/62 Pulse Oximetry 98 99 97 12/31/17 16:00 Temperature 97.9 F Pulse Rate 94 H Respiratory Rate 27 H Blood Pressure 141/74 H Pulse Oximetry 95 Intake & Output 12/30/17 12/31/17 12/31/17 18:59 06:59 18:59 Intake Total 600 / 600 440 / 440 1387.5 / 1387.5 Output Total 1200 / 1200 500 / 500 850 / 850 Balance -600 / -600 -60 / -60 537.5 / 537.5 Weight 70 kg Intake: IV 600 / 600 200 / 200 907.5 / 907.5 Azithromycin Inj 500 MG In NS 250 / 250 250 / 250 Inj 250 ML @ 250 mls/hr IV.SIG Q24H [facility] Rx#:[id number] Zosyn 4.5 GM Premix 4.5 gm In 100 / 100 200 / 200 200 / 200 100 ml @ 200 mls/hr IV.SIG Q6H [facility] Rx#:[id number] KCl 20 mEq Premix Inj 20 meq In 200 / 200 100 ml @ 50 mls/hr IV.SIG Q2H [facility] Rx#:[id number] Vancomycin Inj 700 MG In NS Inj 250 / 250 250 ML @ 250 mls/hr IV.SIG ONCE ONE Rx#:[id number] Vancomycin Inj 750 MG In NS Inj 257.5 / 257.5 250 ML @ 250 mls/hr IV.SIG Q24H [facility] Rx#:[id number] Oral 240 / 240 480 / 480 Output: Urine 1200 / 1200 500 / 500 850 / 850 Other: Date of Last Bowel Movement 12/29/17 12/31/17 12/31/17 # Bowel Movements 1 2 Narrative: GENERAL: Elderly W/M mildly dyspneic. SKIN: Warm and dry. HEAD: Atraumatic. Normocephalic. EYES: Pupils equal and round. No scleral icterus. No injection or drainage. ENT: No nasal bleeding or discharge. Mucous membranes moist. NECK: Trachea midline. No JVD. CARDIOVASCULAR: Regular rate and rhythm. RESPIRATORY: Has accessory muscle use.Bilateral wheezes and basal crackles.Poor air entry on left . GASTROINTESTINAL: Abdomen soft, non-tender, nondistended. Hepatic and splenic margins not palpable. MUSCULOSKELETAL: Extremities without clubbing, cyanosis, or edema. No obvious deformities. NEUROLOGICAL: Awake and alert. Moved arms .weak legs . Normal speech. PSYCHIATRIC: Appropriate mood and affect. - Urinary Catheter Management Straight Cath placed during this visit: yes, but has since been removed by the nurse Reason for continuing: Not indwelling catheter Insertion date: 12/23/17 Insertion time: 01:00 Removal date: 12/22/17 Removal time: 01:00 Condom Cath placed during this visit: no Results - Labs CBC & Chem 7: 12/31/17 04:43 12/31/17 04:43 Laboratory Results - last 24 hr 12/30/17 12/31/17 12/31/17 17:46 00:13 04:43 WBC 8.3 RBC 3.22 L Hgb 9.7 L Hct 29.3 L MCV 91.1 MCH 30.1 MCHC 33.0 RDW 14.8 Plt Count 110 L MPV 9.4 Sodium Potassium Chloride Carbon Dioxide Anion Gap BUN Creatinine Estimated GFR POC Glucose 289 H 266 H Random Glucose Calcium Phosphorus Magnesium 12/31/17 12/31/17 04:43 11:43 WBC RBC Hgb Hct MCV MCH MCHC RDW Plt Count MPV Sodium 140 Potassium 3.4 L Chloride 98 Carbon Dioxide 36.3 H Anion Gap 6 BUN 18 Creatinine 0.82 Estimated GFR Greater than 89 POC Glucose 228 H Random Glucose 170 H Calcium 7.7 L Phosphorus 3.7 Magnesium 1.9 - Imaging Impressions Chest X-Ray 12/31/17 00:00 CONCLUSION: 1. Slightly improved right mid to lower lung zone airspace disease. 2. Persistent prominent diffuse left-sided pleural opacity/thickening with associated left lung volume loss. 3. Stable right apical pleural parenchymal scarring. Assessment and Plan - Assessment (1) Respiratory failure requiring intubation Code(s): J96.90 - Respiratory failure, unspecified, unspecified whether with hypoxia or hypercapnia Status: Acute (2) Pneumonia Code(s): J18.9 - Pneumonia, unspecified organism Status: Acute (3) CHF (congestive heart failure), NYHA class II Code(s): I50.9 - Heart failure, unspecified Status: Acute (4) CHF (congestive heart failure) Code(s): I50.9 - Heart failure, unspecified Status: Acute (5) Respiratory abnormalities Code(s): J98.9 - Respiratory disorder, unspecified Status: Acute (6) Emphysema of lung Code(s): J43.9 - Emphysema, unspecified Status: Acute (7) Borderline diabetes mellitus Code(s): R73.03 - Prediabetes Status: Acute (8) Fracture, intertrochanteric, left femur Code(s): S72.142A - Displaced intertrochanteric fracture of left femur, initial encounter for closed fracture Status: Acute (9) Nutrition, metabolism, and development symptoms Code(s): R63.8 - Other symptoms and signs concerning food and fluid intake Status: Acute - Plan RECOMMENDATIONS: 1. Wean o2 to N/C 4L 2. Bronchodilators in the form of DuoNeb q.6 plus q.[address] on BIPAP at HS 4. Solumedrol 40 mg BID X 3 days 5. Continue with Lasix 40 mg daily. 6. Cont antibiotics Zosyn/Vanco 7.,BMP CBC 8.D/W Family
[2018-01-01] MEDS: Oral Hygiene Kit OROPHARYNG SCH ×4 (00:25→16:10)
[2018-01-01] MEDS: Piperacil/Tazo 4.5 GM Premix 4.5 GM/100 ML BAG IV.SIG SCH ×5 (00:47→18:00)
[2018-01-01] MEDS: Insulin NovoLOG Aspart Correctional Sugar Inj SQ SCH ×6 (00:48→18:01)
[2018-01-01] MEDS: Vancomycin Inj 750 MG in Sodium Chlor 0.9% Inj 250 ML IV.SIG SCH (06:29)
[2018-01-01] MEDS: Enoxaparin Inj 40 MG/0.4 ML Syringe SQ SCH (08:29)
[2018-01-01] MEDS: Potassium Chloride 25 MEQ Effervescent Tablet PO PRN ×2 (08:29→16:11)
[2018-01-01] MEDS: Insulin Detemir Inj 1,000 UNIT/10 ML Vial SQ SCH ×2 (08:29→20:40)
[2018-01-01] MEDS: Furosemide 40 MG Tablet PO SCH (08:29)
[2018-01-01] MEDS: Chlorhexidine 0.12% Oral Kit 15 ML UDC OROPHARYNG SCH ×2 (08:30→20:40)
[2018-01-01] MEDS: MethylPREDNISolone Sod Succinate Inj 40 MG/ML Vial IV.PUSH SCH ×2 (08:30→20:40)
[2018-01-01] MEDS: Azithromycin Inj 500 MG in Sodium Chlor 0.9% Inj 250 ML IV.SIG SCH (08:30)
[2018-01-01] MEDS: Carboxymethylcellulose 0.5% Opth Drops 15 ML Bottle EACH EYE SCH ×2 (08:30→20:40)
[2018-01-01] MEDS: Budesonide-Formoterol 160/4.5 MCG 6 GM Inhaler INH SCH ×2 (08:30→20:40)
--- NOTE | 2018-01-01 10:30 | P.PNIM ---
Subjective Interval history: Patient lying in bed sitting upright. Complains of lower extremity swelling. He does not have any other complaints. Physical Exam Vital signs: Vital Signs 12/31/17 11:00 12/31/17 12:00 12/31/17 13:00 Temperature 97.7 F Pulse Rate 90 91 H 94 H Respiratory Rate 21 23 27 H Blood Pressure 129/62 138/62 138/64 Pulse Oximetry 100 99 94 L 12/31/17 13:58 12/31/17 14:00 12/31/17 15:00 Temperature Pulse Rate 91 H 92 H Respiratory Rate 34 H 31 H Blood Pressure 140/65 132/63 Pulse Oximetry 97 98 98 12/31/17 16:00 12/31/17 17:00 12/31/17 18:00 Temperature 97.9 F Pulse Rate 94 H 92 H 89 Respiratory Rate 32 H 26 H 34 H Blood Pressure 141/74 H 151/67 H Pulse Oximetry 94 L 98 95 12/31/17 18:01 12/31/17 19:00 12/31/17 20:00 Temperature 97.9 F Pulse Rate 87 92 H 91 H Respiratory Rate 31 H 34 H 34 H Blood Pressure 124/62 135/62 135/62 Pulse Oximetry 95 92 L 94 L 12/31/17 20:42 12/31/17 21:00 12/31/17 22:00 Temperature Pulse Rate 88 92 H 96 H Respiratory Rate 16 32 H 30 H Blood Pressure 135/63 129/63 Pulse Oximetry 98 98 94 L 12/31/17 23:00 01/01/18 00:00 01/01/18 01:00 Temperature 98 F Pulse Rate 97 H 94 H 93 H Respiratory Rate 34 H 32 H 33 H Blood Pressure 129/62 131/63 142/65 H Pulse Oximetry 95 97 96 01/01/18 02:00 01/01/18 03:00 01/01/18 04:00 Temperature Pulse Rate 95 H 95 H 91 H Respiratory Rate 32 H 55 H 31 H Blood Pressure 150/72 H 160/72 H 138/63 Pulse Oximetry 94 L 93 L 96 01/01/18 05:05 01/01/18 06:00 Temperature Pulse Rate 91 H 92 H Respiratory Rate 25 H 27 H Blood Pressure 157/69 H 151/63 H Pulse Oximetry 98 96 Intake & Output 12/31/17 01/01/18 01/01/18 18:59 06:59 18:59 Intake Total 1387.5 / 1387.5 520 / 520 607.5 / 607.5 Output Total 850 / 850 900 / 900 Balance 537.5 / 537.5 -380 / -380 607.5 / 607.5 Weight 74.5 kg Intake: IV 907.5 / 907.5 100 / 100 607.5 / 607.5 Azithromycin Inj 500 MG In NS 250 / 250 250 / 250 Inj 250 ML @ 250 mls/hr IV.SIG Q24H [facility] Rx#:[id number] Zosyn 4.5 GM Premix 4.5 gm In 200 / 200 100 / 100 100 / 100 100 ml @ 200 mls/hr IV.SIG Q6H [facility] Rx#:[id number] KCl 20 mEq Premix Inj 20 meq In 200 / 200 100 ml @ 50 mls/hr IV.SIG Q2H [facility] Rx#:[id number] Vancomycin Inj 750 MG In NS Inj 257.5 / 257.5 257.5 / 257.5 250 ML @ 250 mls/hr IV.SIG Q24H [facility] Rx#:[id number] Oral 480 / 480 420 / 420 Output: Urine 850 / 850 900 / 900 Other: # Voids 2 Date of Last Bowel Movement 12/31/17 12/31/17 01/01/18 # Bowel Movements 2 2 Narrative: General patient in mild distress. He is able to speak in full sentences. Most of the history obtained by the patient's and daughter. HEENT extraocular movements are intact, clear oropharyngeal mucosa, no JVD Cardiovascular S1-S2 audible Respiratory bibasilar crackles Abdomen soft, nontender, abdominal wall edema present. Abdomen is mildly distended. Extremities 2+ pitting edema bilateral lower extremities up to the thighs. Well -healed scar on his left hip status post IT nailing. Neuro patient does move all 4 extremities sensation is intact bilaterally - Urinary Catheter Management Straight Cath placed during this visit: yes, but has since been removed by the nurse Reason for continuing: Not indwelling catheter Insertion date: 12/23/17 Insertion time: 01:00 Removal date: 12/22/17 Removal time: 01:00 Condom Cath placed during this visit: no Results - Labs CBC & Chem 7: 12/31/17 04:43 12/31/17 04:43 Laboratory Results - last 24 hr 12/31/17 01/01/18 01/01/18 11:43 00:30 08:43 POC Glucose 228 H 324 H 60 L 01/01/18 01/01/18 08:44 09:09 POC Glucose 60 L 83 Assessment and Plan - Plan This patient is an 82-year-old male with a diagnosis of COPD, pulmonary hypertension, congestive heart failure with preserved ejection fraction on 2-4 L of supplemental oxygen at home. The patient initially presented to our emergency department complaints of shortness of breath and was admitted to the intensive care unit with a COPD exacerbation and CHF exacerbation. He was treated in the intensive care unit and then transferred to the medicine floor however again became short of breath and again needed intensive care. The patient has now been transferred to my care. 1. Congestive heart failure exacerbation 2. Acute hypoxic hypercapnic respiratory failure likely secondary to #1 and COPD exacerbation and left lower lobe pneumonia. The patient has a preserved ejection fraction of around 55-60% as per documentation. On my examination of the patient he has abdominal wall edema as well as 2+ pitting edema bilateral lower extremities up to the thighs. Blood pressure and heart rate are stable. Systolic blood pressures in the 130s. His p.o. Lasix will be switched to IV Lasix and I will continue to monitor his urine output. Continue supplemental oxygen as needed. The patient is currently on 5 L of oxygen. The patient has an extensive tobacco smoking history however has not smoked for nearly 2 years. Continue supplemental oxygen Continue IV Solu-Medrol and antibiotics as per pulmonary recommendations. BiPAP at night Continue breathing treatments. 3. Hyperglycemia Likely from Solu-Medrol. The patient does not have any previous diagnosis of diabetes. We will continue with low doses of Levemir and continue to monitor patient's blood sugars. Insulin sliding scale changed to low-dose as his blood sugars was less than 70 this morning. 4. History of left IT nailing Continue PT. Pain medication as needed. Lovenox for DVT prophylaxis.
--- NOTE | 2018-01-01 10:50 | XR ---
EXAM DATE: 01/01/2018 12:00 AM EDT AGE/SEX: 82 years / Male INDICATIONS: Abdomen distention. CLINICAL DATA: This is the patient's subsequent encounter. Patient reports that signs and symptoms h ave been present for 1 week and indicates a pain score of 5/10. MEDICAL/SURGICAL HISTORY: . Chronic obstructive pulmonary disease. Diabetes mellitus type II. Sepsis. CHF. . Lobectomy. COMPARISON: . FINDINGS: The abdominal bowel gas pattern is normal. No abnormal masses, calcifications, or organomegaly is se en. Hardware is noted within the left proximal femur status post ORIF. Mild degenerative changes and scoliosis of the lumbar spine are noted. The patient is status post cholecystectomy. CONCLUSION: 1. No bowel obstruction, ileus or perforation. 2. Degenerative changes and scoliosis of the lumbar spine. Electronically signed by: Jay Kiran MD 01/01/2018 10:49 AM EDT
[2018-01-01] MEDS ORDERED: Dextrose 50% in Water 50 ML Vial IV.PUSH PRN (18:26)
[2018-01-01] MEDS: Insulin NovoLIN Regular Correctional Sugar Inj SQ SCH (18:54)
[2018-01-02] MEDS: Insulin NovoLIN Regular Correctional Sugar Inj SQ SCH ×4 (00:45→17:55)
[2018-01-02] MEDS: Oral Hygiene Kit OROPHARYNG SCH ×5 (00:45→23:42)
[2018-01-02] MEDS: Phenol 1.4% 180 ML Spray Bottle OROPHARYNG PRN ×2 (03:54→06:54)
[2018-01-02 04:08] LABS: Hematocrit 28.2 % (39.0-51.0); Hemoglobin 9.4 gm/dL (13.0-17.0); Mean Corpuscular HGB Conc 33.3 % (32.0-36.0); Mean Corpuscular Hemoglobin 30.4 pg (27.0-34.0); Mean Corpuscular Volume 91.1 fL (80.0-100.0); Mean Platelet Volume 8.5 fL (7.0-11.0); Platelet Count 130 th/mm3 (150-450); White Blood Count 7.7 th/mm3 (4.0-11.0)
[2018-01-02 04:31] LABS: Calcium 7.6 mg/dL (8.5-10.1); Carbon Dioxide 38.6 meq/L (21.0-32.0); Magnesium 2.1 mg/dL (1.5-2.5); Phosphorus 3.3 mg/dL (2.5-4.9); Potassium 3.8 meq/L (3.5-5.1)
[2018-01-02] MEDS ORDERED: Pharmacy Ordered Lab Info OTHER ONE (05:45)
[2018-01-02] MEDS: Vancomycin Inj 1,250 MG in Sodium Chlor 0.9% Inj 250 ML IV.SIG SCH (06:04)
[2018-01-02] MEDS: Piperacil/Tazo 4.5 GM Premix 4.5 GM/100 ML BAG IV.SIG SCH ×5 (06:04→23:42)
[2018-01-02] MEDS: Azithromycin Inj 500 MG in Sodium Chlor 0.9% Inj 250 ML IV.SIG SCH (08:53)
[2018-01-02] MEDS: Enoxaparin Inj 40 MG/0.4 ML Syringe SQ SCH (08:53)
[2018-01-02] MEDS: Potassium Chloride 25 MEQ Effervescent Tablet PO PRN (08:54)
[2018-01-02] MEDS: Carboxymethylcellulose 0.5% Opth Drops 15 ML Bottle EACH EYE SCH ×2 (08:54→21:47)
[2018-01-02] MEDS: Chlorhexidine 0.12% Oral Kit 15 ML UDC OROPHARYNG SCH ×2 (08:54→21:46)
[2018-01-02] MEDS: Insulin Detemir Inj 1,000 UNIT/10 ML Vial SQ SCH ×2 (08:54→21:46)
[2018-01-02] MEDS: MethylPREDNISolone Sod Succinate Inj 40 MG/ML Vial IV.PUSH SCH ×2 (08:54→21:47)
[2018-01-02] MEDS: Budesonide-Formoterol 160/4.5 MCG 6 GM Inhaler INH SCH ×2 (08:55→21:50)
--- NOTE | 2018-01-02 10:36 | P.PNIM ---
Subjective Interval history: Patient says that he feels better than yesterday. He is sitting upright in bed. He complains of a sore throat. There are no other complaints this morning. Physical Exam Vital signs: Vital Signs 01/01/18 11:00 01/01/18 11:45 01/01/18 11:54 Temperature Pulse Rate 100 H 105 H Respiratory Rate 24 20 Blood Pressure 155/71 H Pulse Oximetry 93 L 92 L 01/01/18 12:00 01/01/18 13:00 01/01/18 14:00 Temperature Pulse Rate 105 H 109 H 104 H Respiratory Rate Blood Pressure 142/65 H 144/67 H 130/62 Pulse Oximetry 93 L 94 L 91 L 01/01/18 15:00 01/01/18 16:00 01/01/18 16:53 Temperature Pulse Rate 99 H 103 H 105 H Respiratory Rate 25 H 26 H Blood Pressure 140/63 132/60 Pulse Oximetry 93 L 96 01/01/18 17:00 01/01/18 18:00 01/01/18 19:00 Temperature 98.4 F Pulse Rate 105 H 111 H 113 H Respiratory Rate 35 H Blood Pressure 142/65 H 119/60 127/58 L Pulse Oximetry 100 96 91 L 01/01/18 19:31 01/01/18 20:00 01/01/18 21:00 Temperature Pulse Rate 107 H 107 H 101 H Respiratory Rate 18 36 H 33 H Blood Pressure 134/62 130/61 Pulse Oximetry 94 L 95 98 01/01/18 22:00 01/01/18 23:00 01/02/18 00:00 Temperature 98.6 F Pulse Rate 97 H 94 H 93 H Respiratory Rate 24 31 H 22 Blood Pressure 138/66 129/59 L 128/58 L Pulse Oximetry 99 97 98 01/02/18 01:00 01/02/18 02:00 01/02/18 03:00 Temperature Pulse Rate 93 H 94 H 91 H Respiratory Rate 24 24 23 Blood Pressure 129/60 115/56 L 120/61 Pulse Oximetry 98 97 97 01/02/18 03:27 01/02/18 04:00 01/02/18 05:00 Temperature Pulse Rate 94 H 97 H 91 H Respiratory Rate 18 28 H 23 Blood Pressure 123/58 L 129/59 L Pulse Oximetry 99 99 01/02/18 06:00 01/02/18 09:33 Temperature Pulse Rate 97 H 93 H Respiratory Rate 30 H 32 H Blood Pressure 144/63 H Pulse Oximetry 97 94 L Intake & Output 01/01/18 01/02/18 01/02/18 18:59 06:59 18:59 Intake Total 707.5 / 707.5 600 / 600 Output Total 350 / 350 800 / 800 Balance 357.5 / 357.5 -200 / -200 Weight 74 kg Intake: IV 707.5 / 707.5 300 / 300 Azithromycin Inj 500 MG In NS 250 / 250 Inj 250 ML @ 250 mls/hr IV.SIG Q24H NOAH Rx#:[id number] Zosyn 4.5 GM Premix 4.5 gm In 200 / 200 300 / 300 100 ml @ 200 mls/hr IV.SIG Q6H NOAH Rx#:[id number] Vancomycin Inj 750 MG In NS Inj 257.5 / 257.5 250 ML @ 250 mls/hr IV.SIG Q24H NOAH Rx#:[id number] Oral 300 / 300 Output: Urine 800 / 800 Urine Amount (Catheter) 350 / 350 Condom 350 / 350 Other: Date of Last Bowel Movement 01/01/18 01/02/18 # Bowel Movements 3 2 Narrative: General patient in mild distress, improved from yesterday. He is able to speak in full sentences. Most of the history obtained by the patient's and daughter as the patient does not speak Thai. HEENT extraocular movements are intact, clear oropharyngeal mucosa, no JVD Cardiovascular S1-S2 audible Respiratory bibasilar crackles Abdomen soft, nontender, abdominal wall edema significantly improved since yesterday. Abdomen is mildly distended improved from my evaluation yesterday. Extremities 2+ pitting edema bilateral lower extremities up to the thighs. Well -healed scar on his left hip status post IT nailing. Neuro patient does move all 4 extremities sensation is intact bilaterally - Urinary Catheter Management Straight Cath placed during this visit: yes, but has since been removed by the nurse Reason for continuing: Not indwelling catheter Insertion date: 12/23/17 Insertion time: 01:00 Removal date: 12/22/17 Removal time: 01:00 Condom Cath placed during this visit: no Results - Labs CBC & Chem 7: 01/02/18 03:27 01/02/18 03:27 Laboratory Results - last 24 hr 10/05/18 10/05/18 10/05/18 12:30 17:21 23:57 WBC RBC Hgb Hct MCV MCH MCHC RDW Plt Count MPV Sodium Potassium Chloride Carbon Dioxide Anion Gap BUN Creatinine Estimated GFR POC Glucose 226 H 255 H 203 H Random Glucose Calcium Phosphorus Magnesium Vancomycin Trough 01/02/18 01/02/18 01/02/18 03:27 03:27 03:27 WBC 7.7 RBC 3.10 L Hgb 9.4 L Hct 28.2 L MCV 91.1 MCH 30.4 MCHC 33.3 RDW 15.0 Plt Count 130 L MPV 8.5 Sodium 139 Potassium 3.8 Chloride 96 L Carbon Dioxide 38.6 H Anion Gap 4 L BUN 16 Creatinine 0.90 Estimated GFR 81 L POC Glucose Random Glucose 171 H Calcium 7.6 L Phosphorus 3.3 Magnesium 2.1 Vancomycin Trough 10.5 H 01/02/18 01/02/18 05:50 08:52 WBC RBC Hgb Hct MCV MCH MCHC RDW Plt Count MPV Sodium Potassium Chloride Carbon Dioxide Anion Gap BUN Creatinine Estimated GFR POC Glucose 244 H 216 H Random Glucose Calcium Phosphorus Magnesium Vancomycin Trough Microbiology 01/02/18 03:40 Stool Stool Occult Blood ([facility]) - Final Hemoccult positive - Imaging Impressions Abdomen X-Ray 01/01/18 00:00 CONCLUSION: 1. No bowel obstruction, ileus or perforation. 2. Degenerative changes and scoliosis of the lumbar spine. Assessment and Plan - Plan This patient is an 82-year-old male with a diagnosis of COPD, pulmonary hypertension, congestive heart failure with preserved ejection fraction on 2-4 L of supplemental oxygen at home. The patient initially presented to our emergency department complaints of shortness of breath and was admitted to the intensive care unit with a COPD exacerbation and CHF exacerbation. He was treated in the intensive care unit and then transferred to the medicine floor however again became short of breath and again needed intensive care. The patient has now been transferred to my care. 1. Congestive heart failure exacerbation 2. Acute hypoxic hypercapnic respiratory failure likely secondary to #1 and COPD exacerbation and left lower lobe pneumonia. The patient's abdominal wall edema as well as bilateral lower extremity edema have improved since yesterday however there is still a significant amount of fluid in the patient's legs. The patient says that he feels better than he did yesterday likely from the diuresis. The patient has a preserved ejection fraction of around 55-60% as per documentation. On my examination of the patient he has abdominal wall edema as well as 2+ pitting edema bilateral lower extremities up to the thighs. Blood pressure and heart rate are stable. Systolic blood pressures in the 130s. IV Lasix after my evaluation and I will continue to monitor his urine output. A condom catheter has been placed for strict ins and outs. 1.5 L fluid restriction The patient does have an elevation of his bicarb due to the patient's chronic lung disease, it is likely more elevated today from the IV Lasix. If his bicarb continues to rise he will be given a dose of Diamox. We will continue monitor the patient's labs. Continue supplemental oxygen as needed. The patient is currently on 5 L of oxygen. The patient has an extensive tobacco smoking history however has not smoked for nearly 2 years. Continue supplemental oxygen Continue IV Solu-Medrol and antibiotics as per pulmonary recommendations. BiPAP at night Continue breathing treatments. 3. Hyperglycemia Likely from Solu-Medrol. The patient does not have any previous diagnosis of diabetes. We will continue with low doses of Levemir and continue to monitor patient's blood sugars. Insulin sliding scale changed to low-dose as his blood sugars was less than 70 this morning. 4. History of left IT nailing Continue PT. Pain medication as needed. Lovenox for DVT prophylaxis.
[2018-01-02] MEDS: Acetaminophen 325 MG Tablet PO PRN (22:39)
[2018-01-03] MEDS: Insulin NovoLIN Regular Correctional Sugar Inj SQ SCH ×4 (00:49→18:55)
[2018-01-03] MEDS: Oral Hygiene Kit OROPHARYNG SCH ×3 (03:25→17:05)
[2018-01-03 05:04] LABS: Hematocrit 27.5 % (39.0-51.0); Hemoglobin 9.3 gm/dL (13.0-17.0); Mean Corpuscular HGB Conc 33.8 % (32.0-36.0); Mean Corpuscular Hemoglobin 30.5 pg (27.0-34.0); Mean Corpuscular Volume 90.1 fL (80.0-100.0); Mean Platelet Volume 8.5 fL (7.0-11.0); Platelet Count 120 th/mm3 (150-450); Red Blood Count 3.05 mil/mm3 (4.50-5.90); Red Cell Distribution Width 15.1 % (11.6-17.2); White Blood Count 7.1 th/mm3 (4.0-11.0)
[2018-01-03 05:23] LABS: Calcium 7.8 mg/dL (8.5-10.1); Carbon Dioxide 40.1 meq/L (21.0-32.0); Phosphorus 3.3 mg/dL (2.5-4.9)
[2018-01-03] MEDS: Piperacil/Tazo 4.5 GM Premix 4.5 GM/100 ML BAG IV.SIG SCH ×3 (07:10→17:05)
[2018-01-03] MEDS: Vancomycin Inj 1,250 MG in Sodium Chlor 0.9% Inj 250 ML IV.SIG SCH (07:10)
[2018-01-03] MEDS: MethylPREDNISolone Sod Succinate Inj 40 MG/ML Vial IV.PUSH SCH (08:42)
[2018-01-03] MEDS: Azithromycin Inj 500 MG in Sodium Chlor 0.9% Inj 250 ML IV.SIG SCH (08:42)
[2018-01-03] MEDS: Carboxymethylcellulose 0.5% Opth Drops 15 ML Bottle EACH EYE SCH ×2 (08:43→20:47)
[2018-01-03] MEDS: Insulin Detemir Inj 1,000 UNIT/10 ML Vial SQ SCH ×2 (08:43→20:47)
[2018-01-03] MEDS: Enoxaparin Inj 40 MG/0.4 ML Syringe SQ SCH (08:43)
[2018-01-03] MEDS: Chlorhexidine 0.12% Oral Kit 15 ML UDC OROPHARYNG SCH ×2 (08:43→20:47)
[2018-01-03] MEDS: Budesonide-Formoterol 160/4.5 MCG 6 GM Inhaler INH SCH ×2 (08:43→20:46)
--- NOTE | 2018-01-03 10:02 | P.PNIM ---
Subjective Interval history: Patient on nasal cannula. He says that he feels slightly better than yesterday. No other complaints. Physical Exam Vital signs: Vital Signs 01/02/18 10:00 01/02/18 10:01 01/02/18 11:00 Temperature Pulse Rate 100 H 99 H 100 H Respiratory Rate 33 H Blood Pressure 142/59 H 118/59 L Pulse Oximetry 93 L 93 L 91 L 01/02/18 12:00 01/02/18 13:00 01/02/18 14:00 Temperature 98.3 F Pulse Rate 95 H 96 H 103 H Respiratory Rate 25 H 21 Blood Pressure 136/62 143/64 H Pulse Oximetry 99 97 93 L 01/02/18 14:11 01/02/18 15:00 01/02/18 15:23 Temperature Pulse Rate 101 H 105 H 101 H Respiratory Rate 21 Blood Pressure 127/58 L Pulse Oximetry 92 L 01/02/18 16:00 01/02/18 16:16 01/02/18 17:00 Temperature 98.5 F Pulse Rate 103 H 101 H 101 H Respiratory Rate 21 Blood Pressure 122/58 L 132/60 Pulse Oximetry 94 L 97 01/02/18 18:00 01/02/18 20:00 01/02/18 21:12 Temperature Pulse Rate 102 H 97 H 102 H Respiratory Rate 21 Blood Pressure 141/65 H Pulse Oximetry 97 01/02/18 23:42 01/03/18 00:00 01/03/18 04:00 Temperature 98.5 F 98.1 F Pulse Rate 100 H 92 H Respiratory Rate 13 25 H 22 Blood Pressure 141/64 H 140/65 Pulse Oximetry 98 96 01/03/18 05:17 01/03/18 07:00 01/03/18 08:00 Temperature Pulse Rate 99 H 98 H 99 H Respiratory Rate 16 22 Blood Pressure 154/67 H 130/65 Pulse Oximetry 94 L 95 93 L 01/03/18 09:00 Temperature Pulse Rate 100 H Respiratory Rate Blood Pressure 127/59 L Pulse Oximetry 95 Intake & Output 01/02/18 01/03/18 01/03/18 18:59 06:59 18:59 Intake Total 1192.5 / 1192.5 1300 / 1300 362.5 / 362.5 Output Total 1450 / 1450 1450 / 1450 Balance -257.5 / -257.5 -150 / -150 362.5 / 362.5 Weight 74 kg Intake: IV 712.5 / 712.5 100 / 100 362.5 / 362.5 Azithromycin Inj 500 MG In NS 250 / 250 Inj 250 ML @ 250 mls/hr IV.SIG Q24H NOAH Rx#:[id number] Zosyn 4.5 GM Premix 4.5 gm In 200 / 200 100 / 100 100 / 100 100 ml @ 200 mls/hr IV.SIG Q6H NOAH Rx#:[id number] Vancomycin Inj 1,250 MG In NS 262.5 / 262.5 262.5 / 262.5 Inj 250 ML @ 250 mls/hr IV.SIG Q24H NOAH Rx#:[id number] Oral 480 / 480 1200 / 1200 Output: Urine 550 / 550 1450 / 1450 Urine Amount (Catheter) 900 / 900 Condom 900 / 900 Other: Date of Last Bowel Movement 01/02/18 01/02/18 01/02/18 # Bowel Movements 1 0 Narrative: General patient in mild distress, improved from yesterday. He appears to be more comfortable. Most of the history obtained by the patient's and daughter as the patient does not speak [place]. HEENT extraocular movements are intact, clear oropharyngeal mucosa, no JVD Cardiovascular S1-S2 audible Respiratory bibasilar crackles Abdomen soft, nontender, abdominal wall edema significantly improved since yesterday, however still present. Mostly on the right side due to the patients positioning. Abdomen is mildly distended improved from my evaluation yesterday. Testicles are edematous as well, improved from two days ago. Extremities 2+ pitting edema bilateral lower extremities up to the thighs. Well -healed scar on his left hip status post IT nailing. Neuro patient does move all 4 extremities sensation is intact bilaterally - Urinary Catheter Management Straight Cath placed during this visit: yes, but has since been removed by the nurse Reason for continuing: Not indwelling catheter Insertion date: 12/23/17 Insertion time: 01:00 Removal date: 12/22/17 Removal time: 01:00 Condom Cath placed during this visit: no Results - Labs CBC & Chem 7: 01/03/18 04:12 01/03/18 04:12 Laboratory Results - last 24 hr 01/02/18 01/02/18 01/03/18 12:53 17:52 00:04 WBC RBC Hgb Hct MCV MCH MCHC RDW Plt Count MPV Sodium Potassium Chloride Carbon Dioxide Anion Gap BUN Creatinine Estimated GFR POC Glucose 267 H 190 H 286 H Random Glucose Calcium Phosphorus Magnesium 01/03/18 01/03/18 01/03/18 04:12 04:12 08:39 WBC 7.1 RBC 3.05 L Hgb 9.3 L Hct 27.5 L MCV 90.1 MCH 30.5 MCHC 33.8 RDW 15.1 Plt Count 120 L MPV 8.5 Sodium 138 Potassium 4.0 Chloride 94 L Carbon Dioxide 40.1 H Anion Gap 4 L BUN 16 Creatinine 1.05 Estimated GFR 68 L POC Glucose 187 H Random Glucose 232 H Calcium 7.8 L Phosphorus 3.3 Magnesium 2.0 Assessment and Plan - Plan This patient is an 82-year-old male with a diagnosis of COPD, pulmonary hypertension, congestive heart failure with preserved ejection fraction on 2-4 L of supplemental oxygen at home. The patient initially presented to our emergency department complaints of shortness of breath and was admitted to the intensive care unit with a COPD exacerbation and CHF exacerbation. He was treated in the intensive care unit and then transferred to the medicine floor however again became short of breath and again needed intensive care. The patient has now been transferred to my care. 1. Congestive heart failure exacerbation 2. Acute hypoxic hypercapnic respiratory failure likely secondary to #1 and COPD exacerbation and left lower lobe pneumonia. The patient's abdominal wall edema as well as bilateral lower extremity edema have improved since yesterday however there is still a significant amount of fluid in the patient's legs, and right side of the abd still has pitting edema. The patient says that he feels better than he did yesterday. Continue diuresis. Patient will be given Diamox today since his bicarb continues to increase Follow up am renal panel. The patient has a preserved ejection fraction of around 55-60% as per documentation. On my examination of the patient he has abdominal wall edema as well as 2+ pitting edema bilateral lower extremities up to the thighs. Blood pressure and heart rate are stable. Systolic blood pressures in the 130s. IV Lasix after my evaluation and I will continue to monitor his urine output. A condom catheter has been placed for strict ins and outs. 1.5 L fluid restriction The patient does have an elevation of his bicarb due to the patient's chronic lung disease, it is likely more elevated today from the IV Lasix. Started on Diamox today. Continue supplemental oxygen as needed. The patient is currently on 5 L of oxygen. The patient has an extensive tobacco smoking history however has not smoked for nearly 2 years. Continue supplemental oxygen, patient oxygen requirements have improved. Currently on 4 L today. [place] is 2-4 L at home. Continue IV Solu-Medrol and antibiotics as per pulmonary recommendations. BiPAP at night Continue breathing treatments. 3. Hyperglycemia Likely from Solu-Medrol. The patient does not have any previous diagnosis of diabetes. We will continue with low doses of Levemir and continue to monitor patient's blood sugars. Insulin sliding scale changed to low-dose as his blood sugars was less than 70 this morning. 4. History of left IT nailing Continue PT. The patient's is requesting that PT try to have the patient sit in the chair. Pain medication as needed. Lovenox for DVT prophylaxis.
[2018-01-03] MEDS: Acetaminophen 325 MG Tablet PO PRN (22:08)
[2018-01-04] MEDS: Piperacil/Tazo 4.5 GM Premix 4.5 GM/100 ML BAG IV.SIG SCH ×4 (01:45→18:31)
[2018-01-04] MEDS: Oral Hygiene Kit OROPHARYNG SCH ×4 (01:47→16:28)
[2018-01-04] MEDS ORDERED: Pharmacy Ordered Lab Info OTHER ONE (05:45)
[2018-01-04] MEDS: Insulin NovoLIN Regular Correctional Sugar Inj SQ SCH ×4 (06:04→18:30)
[2018-01-04] MEDS: Vancomycin Inj 1,250 MG in Sodium Chlor 0.9% Inj 250 ML IV.SIG SCH (06:05)
[2018-01-04] MEDS: Chlorhexidine 0.12% Oral Kit 15 ML UDC OROPHARYNG SCH ×2 (07:25→21:22)
[2018-01-04] MEDS: Azithromycin Inj 500 MG in Sodium Chlor 0.9% Inj 250 ML IV.SIG SCH (07:31)
[2018-01-04] MEDS: Phenol 1.4% 180 ML Spray Bottle OROPHARYNG PRN ×2 (08:16→14:39)
[2018-01-04 08:23] LABS: Hematocrit 31.3 % (39.0-51.0); Hemoglobin 10.3 gm/dL (13.0-17.0); Mean Corpuscular HGB Conc 32.8 % (32.0-36.0); Mean Corpuscular Hemoglobin 30.4 pg (27.0-34.0); Mean Corpuscular Volume 92.6 fL (80.0-100.0); Mean Platelet Volume 8.6 fL (7.0-11.0); Platelet Count 116 th/mm3 (150-450); Red Blood Count 3.38 mil/mm3 (4.50-5.90); White Blood Count 7.2 th/mm3 (4.0-11.0)
[2018-01-04 08:41] LABS: Anion Gap 6 meq/L (5-15); Blood Urea Nitrogen 13 mg/dL (7-18); Calcium 8.2 mg/dL (8.5-10.1); Carbon Dioxide 36.4 meq/L (21.0-32.0); Chloride 100 meq/L (98-107); Glomerular Filtration Rate Greater Than 89 mL/min (>89); Glucose,Random 69 mg/dL (74-106); Phosphorus 2.6 mg/dL (2.5-4.9); Potassium 3.3 meq/L (3.5-5.1); Sodium 142 meq/L (136-145)
[2018-01-04] MEDS: Insulin Detemir Inj 1,000 UNIT/10 ML Vial SQ SCH ×2 (08:45→21:23)
[2018-01-04] MEDS: Enoxaparin Inj 40 MG/0.4 ML Syringe SQ SCH (11:05)
[2018-01-04] MEDS: Carboxymethylcellulose 0.5% Opth Drops 15 ML Bottle EACH EYE SCH ×2 (11:06→21:23)
[2018-01-04] MEDS: MethylPREDNISolone Sod Succinate Inj 40 MG/ML Vial IV.PUSH SCH (11:07)
[2018-01-04] MEDS: Budesonide-Formoterol 160/4.5 MCG 6 GM Inhaler INH SCH ×2 (11:10→21:23)
--- NOTE | 2018-01-04 11:48 | P.PN ---
Subjective Interval history: This is a pleasant 82 y/o Male with COPD, pulmonary hypertension, congestive heart failure with preserved ejection fraction on 2-4 L of supplemental oxygen at home. Came to ER with SOB , admitted to ICU, with Diagnosis of CHF exacerbation and COPD exacerbation. Agree with Cd Mixer Helper the patient will need diagnosis Of Sepsis on admission he was found with Leukocytosis tachycardia, tachypneic, positive CXR for pneumonia, at this time seen in his bedroom in the presence of his two daughters and his , followed by benefits specialist recruiter, continue antibiotics, diuresis, wound care, overall Poor short term prognosis. Physical Exam Vital signs: Vital Signs 01/03/18 12:00 01/03/18 13:00 01/03/18 14:00 Temperature 97.6 F Pulse Rate 104 H 106 H 99 H Respiratory Rate 26 H Blood Pressure 139/68 137/65 162/74 H Pulse Oximetry 92 L 93 L 96 01/03/18 14:21 01/03/18 15:00 01/03/18 15:54 Temperature Pulse Rate 101 H 99 H 101 H Respiratory Rate 29 H 23 24 Blood Pressure 151/72 H Pulse Oximetry 99 01/03/18 16:00 01/03/18 17:00 01/03/18 17:04 Temperature Pulse Rate 102 H 109 H 109 H Respiratory Rate 39 H Blood Pressure 153/71 H 135/62 Pulse Oximetry 99 94 L 01/03/18 18:00 01/03/18 19:00 01/03/18 20:00 Temperature Pulse Rate 106 H 109 H 110 H Respiratory Rate 31 H 36 H 38 H Blood Pressure 148/67 H 158/74 H 138/63 Pulse Oximetry 96 92 L 95 01/03/18 20:33 01/03/18 21:00 01/03/18 22:00 Temperature Pulse Rate 109 H 109 H 110 H Respiratory Rate 22 33 H 36 H Blood Pressure 157/70 H 166/76 H Pulse Oximetry 100 01/03/18 23:00 01/03/18 23:01 01/04/18 00:00 Temperature Pulse Rate 107 H 109 H 106 H Respiratory Rate 37 H 49 H 30 H Blood Pressure 146/61 H 150/67 H Pulse Oximetry 98 97 98 01/04/18 01:00 01/04/18 02:00 01/04/18 03:00 Temperature Pulse Rate 101 H 106 H 104 H Respiratory Rate 24 40 H 35 H Blood Pressure 140/63 121/81 156/70 H Pulse Oximetry 100 99 99 01/04/18 04:00 01/04/18 04:51 01/04/18 08:32 Temperature 98 F Pulse Rate 97 H 100 H 104 H Respiratory Rate 23 16 18 Blood Pressure 133/67 Pulse Oximetry 100 01/04/18 08:33 Temperature Pulse Rate Respiratory Rate Blood Pressure Pulse Oximetry 93 L Intake & Output 01/03/18 01/04/18 01/04/18 18:59 06:59 18:59 Intake Total 1262.5 / 1262.5 340 / 340 362.5 / 362.5 Output Total 1050 / 1050 550 / 550 Balance 212.5 / 212.5 -210 / -210 362.5 / 362.5 Weight 70 kg Intake: IV 812.5 / 812.5 100 / 100 362.5 / 362.5 Azithromycin Inj 500 MG In NS 250 / 250 Inj 250 ML @ 250 mls/hr IV.SIG Q24H NOAH Rx#:[id number] Zosyn 4.5 GM Premix 4.5 gm In 300 / 300 100 / 100 100 / 100 100 ml @ 200 mls/hr IV.SIG Q6H NOAH Rx#:[id number] Vancomycin Inj 1,250 MG In NS 262.5 / 262.5 262.5 / 262.5 Inj 250 ML @ 250 mls/hr IV.SIG Q24H NOAH Rx#:[id number] Oral 450 / 450 240 / 240 Output: Urine 550 / 550 Urine Amount (Catheter) 1050 / 1050 Condom 1050 / 1050 Other: # Incontinent Voids 2 Date of Last Bowel Movement 01/02/18 01/04/18 01/04/18 # Bowel Movements 0 1 # Incontinent Bowel Movements 3 Narrative: General: no acute distress. resting in bed. HEENT extraocular movements are intact, clear oropharyngeal mucosa, no JVD Cardiovascular S1-S2 audible Respiratory bibasilar crackles, severe decreased breath sounds bilateral. Abdomen: soft, nontender, positive bowel sounds. Extremities: 2+ pitting edema bilateral lower extremities up to the thighs. Well-healed scar on his left hip status post IT nailing. Neuro: patient does move all 4 extremities sensation is intact bilaterally - Urinary Catheter Management Straight Cath placed during this visit: yes, but has since been removed by the nurse Reason for continuing: Not indwelling catheter Insertion date: 12/23/17 Insertion time: 01:00 Removal date: 12/22/17 Removal time: 01:00 Condom Cath placed during this visit: no Results - Labs CBC & Chem 7: 01/05/18 05:18 01/05/18 05:18 Laboratory Results - last 24 hr 01/03/18 01/04/18 01/04/18 11:31 06:02 06:02 WBC 7.2 RBC 3.38 L Hgb 10.3 L Hct 31.3 L MCV 92.6 MCH 30.4 MCHC 32.8 RDW 15.0 Plt Count 116 L MPV 8.6 Sodium 142 Potassium 3.3 L Chloride 100 Carbon Dioxide 36.4 H Anion Gap 6 BUN 13 Creatinine 0.72 Estimated GFR Greater than 89 POC Glucose 250 H Random Glucose 69 L D Calcium 8.2 L Phosphorus 2.6 Magnesium 2.0 Vancomycin Trough 01/04/18 01/04/18 06:02 08:43 WBC RBC Hgb Hct MCV MCH MCHC RDW Plt Count MPV Sodium Potassium Chloride Carbon Dioxide Anion Gap BUN Creatinine Estimated GFR POC Glucose 85 Random Glucose Calcium Phosphorus Magnesium Vancomycin Trough 16.5 H Assessment and Plan - Plan This patient is an 82-year-old male with a diagnosis of COPD, pulmonary hypertension, congestive heart failure with preserved ejection fraction on 2-4 L of supplemental oxygen at home. The patient initially presented to our emergency department complaints of shortness of breath and was admitted to the intensive care unit with a COPD exacerbation and CHF exacerbation. He was treated in the intensive care unit and then transferred to the medicine floor however again became short of breath and again needed intensive care. The patient has now been transferred to my care. 1. Congestive heart failure exacerbation 2. Acute hypoxic hypercapnic respiratory failure likely secondary to #1 and COPD exacerbation and left lower lobe pneumonia. The patient's abdominal wall edema as well as bilateral lower extremity edema have improved, but will continue Diuretics Lasix 40 mg BID by mouth and continue Potassium replacement. electrolyte replacement. Continue diuresis. Carbon dioxide stable. The patient has a preserved ejection fraction of around 55-60% as per documentation. Blood pressure and heart rate are stable. A condom catheter has been placed for strict ins and outs. 1.5 L fluid restriction The patient does have an elevation of his bicarb due to the patient's chronic lung disease. Continue supplemental oxygen as needed. The patient is currently on 5 L of oxygen. The patient has an extensive tobacco smoking history however has not smoked for nearly 2 years. Continue supplemental oxygen, patient oxygen requirements have improved. Continue IV Solu-Medrol and antibiotics as per pulmonary recommendations. BiPAP at night Continue breathing treatments. 3. Hyperglycemia Likely from Solu-Medrol. The patient does not have any previous diagnosis of diabetes. We will continue with low doses of Levemir and continue to monitor patient's blood sugars. Insulin sliding scale changed to low-dose as his blood sugars was less than 70 this morning. 4. History of left IT nailing Continue PT. The patient's is requesting that PT try to have the patient sit in the chair. Pain medication as needed. 5. Left Buttock wound stage II campaign marketing specialist following. 6. Sepsis on admission improved. Lovenox for DVT prophylaxis. Code Status: Full code. Discussed Condition With: Patient, nurse Miss Cavazos, his and two daughters in the room. Discharge Planning: not yet cleared for discharge.
[2018-01-04] MEDS ORDERED: Potassium Chloride 25 MEQ Effervescent Tablet PO ONE ×2 (13:14→16:00)
[2018-01-04] MEDS: Furosemide 40 MG Tablet PO SCH ×2 (14:28→18:49)
--- NOTE | 2018-01-04 14:41 | P.PNWCN ---
Wound Care Nurse Consult Description: Vocera notification of patient family request for re-evaluation of buttocks Communicated with: Patient RN Dr Js Goss Recommendation: 1. Reposition patient from left to right sides Q2H 2. Nutrition consult for wounds 3. Obtain and place patient on low air loss mattress ordered 4. Use disposable moisture wicking underpad with air mattress. Please no cotton pull pads. Left and Right Buttocks BID and PRN: -Encrust wounds followed by an application of Calazime. *Encrusting BID as follows: Apply stoma powder to open wounds on right and left buttocks, wipe off excess. [place] with Cavilon skin barrier film. May repeat twice. Apply Calazime skin protectant paste. Additional information: [place] [facility] [place] of bilateral buttock wounds that appear larger than last assessment. Wound/Pressure Injury - Patient Status Premedicated for Pain Prior to Dressing Change: No - Wound Left Buttock Wound Staging: Stage II Wound Assessment: Ongoing Wound Type: Pressure Injury Is This a Chronic Wound: No Length (cm): 4 (cm) Width (cm): 3.5 (cm) Depth (cm): 0.1 (cm) Wound Bed Appearance: [place] Wound Bed Appearance: shallow, moist pink tissue with purple/black discoloration noted in center of wound bed. Surrounding Tissue Appearance: [place] (peeling denuded dry skin) Drainage Amount: None (no active drainage noted) Drainage Odor: No Odor Dressing Status: Open to Air Cleansing Solution: Saline Topical: Stoma powder, Cavilon, Calazime Right Buttocks Wound Assessment: Ongoing Wound Type: Skin Tear Is This a Chronic Wound: No Wound Bed Appearance: [place] Wound Bed Appearance: jagged sharp and shallow Drainage Amount: None (no active drainage noted) Drainage Odor: No Odor Dressing Status: Open to Air Topical: Stoma powder, Cavilon, Calazime - Additional Information Patient was positioned to his right side for assessment with assistance of family members at bedside. Two wounds noted to right buttock, largest now measuring 2cm x 2.3cm x <0.2cm of pink moist tissue with no active drainage and no odor. Periwound is noted with dry flaking previously denuded skin. Smaller wound to right buttock now measures 1cm x 1.8cm x <0.1cm of dull red tissue with no active drainage and no odor. All wounds have jagged peeling wound margins indicating a mixed etiology of moisture/friction. Left buttock wound is largest of all wounds visualized and oval in shape previously staged as a stage 2 pressure injury. Wound is now measuring 4cm x 3.5cm x <0.1cm of moist pink tissue now with friable moist maroon/black discoloration within the wound bed measuring ~1cm x 0.4cm x 0cm that appears to be from previous bleeding or a new DTI. Wound margins are sharp and well defined. Periwound is dry and flaking from previously denuded skin. There is no active drainage and no odor. All wounds were encrusted prior to applying Calazime skin protectant paste. Patient was repositioned to his right side and sat up slightly in bed. Patient family was educated on wound healing criteria including but not limited to oxygen WNL, pressure relief with manual repositioning Q2H from left to right sides only, nutritional supplements, and use of disposable underpads for moisture wicking to keep skin dry. Patient may be allowed to get up to chair with frequent positioning Q1H while in chair. Airapy low airloss mattress ordered through environmental. All persons present verbalized understanding of teaching. Please VOCERA performance test engineer for worsening wounds/failure of treatment.
--- NOTE | 2018-01-04 18:27 | P.PNPAL ---
Reason for Visit Reason for visit: a. To assist with evaluation and management of symptoms including: dyspnea, pain b. To assist medical decision maker(s) with: better understanding of current medical conditions; weighing benefits/burdens of medical treatment options; making medical treatment decisions. Subjective Subjective/Interval History: Patient seen today to follow up on comfort/goals. S/p medical extubation 12/26. Tolerating NC, 4lpm. Critical care signed off to hospitalist. Pt remains in ICU. Tolerating simple face mask alternating w NC O2. H&H stable. Tolerating p.o. diet. Having bowel movements. Urine output adequate. PT following. ST following. Wound care continues to follow and assist with wound management notes wound to buttocks slightly larger. Ordered for pressure reduction air bed. Patient seen in room, dual visit with Norbert Robert APRN. 2 daughters, present. Patient is up in recliner chair at bedside. Daughters endorse that they all assisted him out of bed. Family feels like he is doing much better today they are optimistic his recovery will continue when he can return home with them. They expressed concern that he would not get the care that he needs outside of the ICU. They endorse that he has had an occasional cough though nonproductive. The endorse he has not had much dyspnea. He denies any pain. They have been actively doing range of motion with him. They feel overall he has made significant improvement. Review of recent diagnostics, current clinical assessment. Goals remain aggressive. Additional history per recent admission 11/13/17: Patient with known history CHF, diabetes, COPD, pulmonary fibrosis and asbestosis, presented to the ED after sustaining a fall in his home. He was lightheaded. Baseline 3-4 L nasal cannula requiring significant assistance with ADLs. Also with known history of LEFT thoracotomy and lobectomy/resection many years ago. Imaging finding of intertrochanteric fracture of proximal left hip. Also findings of osteopenia. Pulmonology evaluated patient and noted that he was cleared for surgery though may require BiPAP after. Suggested limited anesthesia secondary to moderately failure and/or pneumonia. Orthopedics consulted reviewed options family requested to proceed with operative management. During that admission noted during attending discussion with family daughter reports baseline mental status with some component of a dementia. Patient's primary language also reported to be a telemetry and though they requested no interpretation service be used during encounters because this would make him upset. During that hospital course patient did require ICU on BiPAP. Patient with some agitation. Anemia requiring transfusion postoperatively. Ongoing respiratory complication and concern for respiratory decompensation that could require mechanical ventilation and could result in difficulty weaning. Critical care notes discussion with family requested full CODE STATUS and continued aggressive management. Outpatient CT per Dr. Guerrier demonstrated pulmonary fibrosis and bronchiectasis. Patient did have a VQ scan during that admission with ventilation abnormally and perfume and of normal least left lower lobe pattern not typical of PE likely related to lobectomy. Avoiding CTA due to worsening renal function, family did not wish to assume risk. During that hospital course it is noted family requested transfer to [facility], critical care attempted to initiate that process. [facility]. Patient was also evaluated for LTAC, insurance apparently denied LTAC. Family appealed this and patient was later [facility]. He was discharged to [facility] 11/20/17 Objective Vital Signs: Vital Signs 01/03/18 19:00 01/03/18 20:00 01/03/18 20:33 Temperature Pulse Rate 109 H 110 H 109 H Respiratory Rate 36 H 38 H 22 Blood Pressure 158/74 H 138/63 Pulse Oximetry 92 L 95 01/03/18 21:00 01/03/18 22:00 01/03/18 23:00 Temperature Pulse Rate 109 H 110 H 107 H Respiratory Rate 33 H 36 H 37 H Blood Pressure 157/70 H 166/76 H Pulse Oximetry 100 98 01/03/18 23:01 01/04/18 00:00 01/04/18 01:00 Temperature Pulse Rate 109 H 106 H 101 H Respiratory Rate 49 H 30 H 24 Blood Pressure 146/61 H 150/67 H 140/63 Pulse Oximetry 97 98 100 01/04/18 02:00 01/04/18 03:00 01/04/18 04:00 Temperature 98 F Pulse Rate 106 H 104 H 97 H Respiratory Rate 40 H 35 H 23 Blood Pressure 121/81 156/70 H 133/67 Pulse Oximetry 99 99 100 01/04/18 04:51 01/04/18 08:00 01/04/18 08:32 Temperature 97 F L Pulse Rate 100 H 105 H 104 H Respiratory Rate 16 29 H 18 Blood Pressure 136/62 Pulse Oximetry 01/04/18 08:33 01/04/18 12:00 01/04/18 14:15 Temperature 98.2 F Pulse Rate 110 H 120 H Respiratory Rate 28 H 18 Blood Pressure 144/60 H Pulse Oximetry 93 L 01/04/18 16:00 Temperature Pulse Rate 120 H Respiratory Rate Blood Pressure Pulse Oximetry Intake & Output 01/03/18 01/04/18 01/04/18 18:59 06:59 18:59 Intake Total 1262.5 / 1262.5 340 / 340 1192.5 / 1192.5 Output Total 1050 / 1050 550 / 550 700 / 700 Balance 212.5 / 212.5 -210 / -210 492.5 / 492.5 Weight 70 kg Intake: IV 812.5 / 812.5 100 / 100 712.5 / 712.5 Azithromycin Inj 500 MG In NS 250 / 250 250 / 250 Inj 250 ML @ 250 mls/hr IV.SIG Q24H NOAH Rx#:[id number] Zosyn 4.5 GM Premix 4.5 gm In 300 / 300 100 / 100 200 / 200 100 ml @ 200 mls/hr IV.SIG Q6H NOAH Rx#:[id number] Vancomycin Inj 1,250 MG In NS 262.5 / 262.5 262.5 / 262.5 Inj 250 ML @ 250 mls/hr IV.SIG Q24H NOAH Rx#:[id number] Oral 450 / 450 240 / 240 480 / 480 Output: Urine 550 / 550 Urine Amount (Catheter) 1050 / 1050 700 / 700 Condom 1050 / 1050 700 / 700 Other: # Incontinent Voids 2 Date of Last Bowel Movement 01/02/18 01/04/18 01/04/18 # Bowel Movements 0 1 # Incontinent Bowel Movements 3 Physical Exam: CONSTITUTIONAL/GENERAL: This is a thin elderly male, alert up in chair at bedside TUBES/LINES/DRAINS: peripheral IVs to bilateral upper extremities. Simple mask O2 SKIN: No jaundice, rashes, or lesions. Some areas of ecchymosis bilateral hands. Fading ecchymosis along left hip, upper leg. No wounds seen anteriorly- reports sacral/buttock wound . Skin warm/dry. EYES: Pupils 2.5mm/ reactive to light. No scleral icterus. No injection or drainage. Fundi not examined. ENT: Nose without bleeding or purulent drainage. Throat without visible erythema, exudates CARDIOVASCULAR: Regular rate and rhythm without murmur, rate 90s. No JVD. Peripheral pulses symmetric. reported slight scrotal edema improved did not examine RESPIRATORY/CHEST: Symmetric, unlabored respirations on 5L simple mask. Left side was decreased air movement. Right essentially clear. GASTROINTESTINAL: Abdomen soft, no tenderness. No palpable masses. Bowel sounds present. GENITOURINARY: Without palpable bladder distension. reported slight scrotal edema improved did not examine MUSCULOSKELETAL: Extremities without clubbing, cyanosis. No joint tenderness or effusion noted. No mottling or clubbing. NEUROLOGICAL:alert mostly oriented. Conversing w family in [place]. moves all 4 extremities. PSYCHIATRIC: calm , no apparent anxiety. Diagnostic Tests Laboratory: Laboratory Results - last 72 hr 01/01/18 01/02/18 01/02/18 23:57 03:27 03:27 WBC 7.7 RBC 3.10 L Hgb 9.4 L Hct 28.2 L MCV 91.1 MCH 30.4 MCHC 33.3 RDW 15.0 Plt Count 130 L MPV 8.5 Sodium 139 Potassium 3.8 Chloride 96 L Carbon Dioxide 38.6 H Anion Gap 4 L BUN 16 Creatinine 0.90 Estimated GFR 81 L POC Glucose 203 H Random Glucose 171 H Calcium 7.6 L Phosphorus 3.3 Magnesium 2.1 Vancomycin Trough 01/02/18 01/02/18 01/02/18 03:27 05:50 08:52 WBC RBC Hgb Hct MCV MCH MCHC RDW Plt Count MPV Sodium Potassium Chloride Carbon Dioxide Anion Gap BUN Creatinine Estimated GFR POC Glucose 244 H 216 H Random Glucose Calcium Phosphorus Magnesium Vancomycin Trough 10.5 H 01/02/18 01/02/18 01/03/18 12:53 17:52 00:04 WBC RBC Hgb Hct MCV MCH MCHC RDW Plt Count MPV Sodium Potassium Chloride Carbon Dioxide Anion Gap BUN Creatinine Estimated GFR POC Glucose 267 H 190 H 286 H Random Glucose Calcium Phosphorus Magnesium Vancomycin Trough 01/03/18 01/03/18 01/03/18 04:12 04:12 08:39 WBC 7.1 RBC 3.05 L Hgb 9.3 L Hct 27.5 L MCV 90.1 MCH 30.5 MCHC 33.8 RDW 15.1 Plt Count 120 L MPV 8.5 Sodium 138 Potassium 4.0 Chloride 94 L Carbon Dioxide 40.1 H Anion Gap 4 L BUN 16 Creatinine 1.05 Estimated GFR 68 L POC Glucose 187 H Random Glucose 232 H Calcium 7.8 L Phosphorus 3.3 Magnesium 2.0 Vancomycin Trough 01/03/18 01/04/18 01/04/18 11:31 06:02 06:02 WBC 7.2 RBC 3.38 L Hgb 10.3 L Hct 31.3 L MCV 92.6 MCH 30.4 MCHC 32.8 RDW 15.0 Plt Count 116 L MPV 8.6 Sodium 142 Potassium 3.3 L Chloride 100 Carbon Dioxide 36.4 H Anion Gap 6 BUN 13 Creatinine 0.72 Estimated GFR Greater than 89 POC Glucose 250 H Random Glucose 69 L D Calcium 8.2 L Phosphorus 2.6 Magnesium 2.0 Vancomycin Trough 01/04/18 01/04/18 01/04/18 06:02 08:43 12:05 WBC RBC Hgb Hct MCV MCH MCHC RDW Plt Count MPV Sodium Potassium Chloride Carbon Dioxide Anion Gap BUN Creatinine Estimated GFR POC Glucose 85 83 Random Glucose Calcium Phosphorus Magnesium Vancomycin Trough 16.5 H 01/04/18 17:38 WBC RBC Hgb Hct MCV MCH MCHC RDW Plt Count MPV Sodium Potassium Chloride Carbon Dioxide Anion Gap BUN Creatinine Estimated GFR POC Glucose 363 H Random Glucose Calcium Phosphorus Magnesium Vancomycin Trough Result Diagrams: 01/04/18 06:02 01/04/18 06:02 Microbiology: Microbiology 01/02/18 03:40 Stool Occult Blood (LUIS FELIPE) - Final Stool Hemoccult positive Assessment and Plan - Disease Oriented Problem List (1) COPD (chronic obstructive pulmonary disease) (2) CHF (congestive heart failure) (3) Respiratory distress (4) Sepsis (5) HCAP (healthcare-associated pneumonia) (6) NAHED (acute kidney injury) (7) Pulmonary hypertension (8) S/P lobectomy of lung Pertinent Non-Medical Issues: Psychosocial: Retired. Lived in [place] most of his life-- originally from [place], then moved to [place], then to [place]. 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 Supported by , 4 daughters, other extended family. Spiritual:scientology, sister providing spiritual care Legal:Patient unable to participate due to clinical condition. There is some question of underlying cognitive deficits. His would be appropriate legal decision maker. She is making decisions supported by the rest of the family, daughters, sister are very involved in his care in decision-making Ethical issues impacting care:no ethical issues identified Important Contacts: Sunshine Davenport [phone] Prognosis: This 82-year-old patient is currently hospitalized due to severe sepsis, with respiratory failure. He has multiple chronic comorbidities. 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 He also has underlying COPD, pulmonary fibrosis, prior lobectomy. Overall poor prognosis for survival from current acute issues. Code Status: Full Code Plan: * Legal decision maker: Patient unable to participate due to clinical condition. There is some question of underlying cognitive deficits. His would be appropriate legal decision maker. She is making decisions supported by the rest of the family, daughters, sister are very involved in his care in decision-making * Goals: aggressive goals; pt/family want to continue ongoing aggressive treatments to improve his condition, including full code. Family hopeful he will eventually return home with them * CODE STATUS: Full code * SYMPTOMS: --Dyspnea-admitted for shortness of breath. Desaturation reported at home. Urgently intubated upon arrival to ICU. CXR indicative right lower lung probable pneumonia. initially On broad-spectrum antibiotics. Cultures negative. Tolerated medical extubation 12/25. abx d/cd tolerating nasal cannula , to medical unit. HALICAT 12/30,for desaturation, now back in ICU, has remained stable in ICU. Tolerating nasal cannula alternating with , simple mask. Endorses breathing better over the past few days. Due to recent pneumonia, intubation, debilitated status remains at risk for respiratory complications. --Pain-family endorses day to day at home patient did not endorse any pain. He is status post hip repair last month. Has been essentially bedbound since that time, potential sources would include recent hip surgery, as well as prolonged bedbound status and recent invasive procedures. Family endorses that pt is having some discomfort to his sacral region though they do not want him to have morphine because they feel that is too strong for him. Wound care followed for wounds to buttocks. Ordered for airbed. --Insomnia at night-family has asked about possible use of low-dose Benadryl at bedtime to help patient with sleep they endorse that he has used that in the past at home with good results. Review with them risks/benefits of Benadryl use in the elderly. They would like to try this or something to help with sleep at night. Could consider 25 mg Benadryl or 0.25 mg Ativan x 1 at HS- cautious use given potential for sedation/lethargy. * Palliative care will continue to follow during hospital course as condition evolves, to assist patient/decision-maker with understanding of medical conditions, weighing benefits/burdens of treatment options, for clarification of goals of treatment. Additionally will assist with any symptoms of palliative concern Attestation Attestation: To help prompt me to consider important information that might be impacting today's encounter and assessment, information from prior notes written by myself or my colleagues may have been "brought forward" into today's note. My signature on this note, however, is an attestation that I personally performed the exam, history, and/or decision-making noted today, and, unless otherwise indicated, the interactions with patient, family, and staff as well as the review of records all occurred today. I also attest that the listed assessment and stated plan reflect my best clinical judgment today based on the combination of historical information, prior notes, and today's exam/ interactions. When time spent is documented, it refers only to time spent today by the signer, or if indicated, combined time spent today by collaborating physician/nurse practitioner.
[2018-01-04] MEDS: Acetaminophen 325 MG Tablet PO PRN (22:41)
[2018-01-05] MEDS: Piperacil/Tazo 4.5 GM Premix 4.5 GM/100 ML BAG IV.SIG SCH ×5 (00:39→18:37)
[2018-01-05] MEDS: Oral Hygiene Kit OROPHARYNG SCH ×4 (00:39→15:35)
[2018-01-05] MEDS: Insulin NovoLIN Regular Correctional Sugar Inj SQ SCH ×4 (00:39→17:24)
[2018-01-05] MEDS: Vancomycin Inj 1,250 MG in Sodium Chlor 0.9% Inj 250 ML IV.SIG SCH (05:30)
[2018-01-05 07:00] LABS: Hematocrit 29.4 % (39.0-51.0); Hemoglobin 9.7 gm/dL (13.0-17.0); Mean Corpuscular HGB Conc 32.9 % (32.0-36.0); Mean Corpuscular Hemoglobin 30.3 pg (27.0-34.0); Mean Corpuscular Volume 91.9 fL (80.0-100.0); Mean Platelet Volume 8.5 fL (7.0-11.0); Platelet Count 98 th/mm3 (150-450); White Blood Count 7.6 th/mm3 (4.0-11.0)
[2018-01-05 07:11] LABS: Anion Gap 7 meq/L (5-15); Blood Urea Nitrogen 15 mg/dL (7-18); Calcium 8.3 mg/dL (8.5-10.1); Carbon Dioxide 35.5 meq/L (21.0-32.0); Chloride 99 meq/L (98-107); Glomerular Filtration Rate Greater Than 89 mL/min (>89); Glucose,Random 77 mg/dL (74-106); Phosphorus 3.1 mg/dL (2.5-4.9); Potassium 3.5 meq/L (3.5-5.1); Sodium 141 meq/L (136-145)
[2018-01-05] MEDS: Furosemide 40 MG Tablet PO SCH ×2 (08:30→17:24)
[2018-01-05] MEDS: Chlorhexidine 0.12% Oral Kit 15 ML UDC OROPHARYNG SCH ×2 (08:30→20:43)
[2018-01-05] MEDS: Budesonide-Formoterol 160/4.5 MCG 6 GM Inhaler INH SCH ×2 (08:31→20:43)
[2018-01-05] MEDS: MethylPREDNISolone Sod Succinate Inj 40 MG/ML Vial IV.PUSH SCH (08:31)
[2018-01-05] MEDS: Carboxymethylcellulose 0.5% Opth Drops 15 ML Bottle EACH EYE SCH ×2 (08:31→20:43)
[2018-01-05] MEDS: Insulin Detemir Inj 1,000 UNIT/10 ML Vial SQ SCH ×2 (08:32→20:43)
[2018-01-05] MEDS: Enoxaparin Inj 40 MG/0.4 ML Syringe SQ SCH (08:32)
[2018-01-05] MEDS ORDERED: Potassium Chloride 25 MEQ Effervescent Tablet PO ONE (08:43)
[2018-01-05] MEDS: Azithromycin Inj 500 MG in Sodium Chlor 0.9% Inj 250 ML IV.SIG SCH (11:56)
--- NOTE | 2018-01-05 16:17 | P.PN ---
Subjective Interval history: This is a pleasant 82 y/o Male with COPD, pulmonary hypertension, congestive heart failure with preserved ejection fraction on 2-4 L of supplemental oxygen at home. Came to ER with SOB , admitted to ICU, with Diagnosis of CHF exacerbation and COPD exacerbation. Agree with Bench Precision Assembler the patient will need diagnosis Of Sepsis on admission he was found with Leukocytosis tachycardia, tachypneic, positive CXR for pneumonia, at this time seen in his bedroom in the presence of his two daughters and his , followed by financial reporting specialist, continue antibiotics, diuresis, wound care, overall Poor short term prognosis. 01/05: Stable in his bedroom, continue present care, following BMP on daily basis, he is improving his family has questions about his antibiotics, and prefer for ID specialist consult I agree and asked for ID specialist consult on the case, will follow in am tomorrow with new CXR, cultures negative so far, no nausea, vomit or diarrhea, Physical Exam Vital signs: Vital Signs 01/04/18 16:31 01/04/18 17:00 01/04/18 18:00 Temperature Pulse Rate 122 H 121 H 117 H Respiratory Rate 47 H 37 H 36 H Blood Pressure 150/65 H Pulse Oximetry 91 L 90 L 99 01/04/18 19:00 01/04/18 20:00 01/04/18 20:48 Temperature 98.7 F Pulse Rate 116 H 111 H 107 H Respiratory Rate 35 H 32 H 23 Blood Pressure 141/64 H Pulse Oximetry 96 98 98 01/04/18 20:51 01/04/18 21:00 01/04/18 22:00 Temperature Pulse Rate 105 H 106 H 108 H Respiratory Rate 25 H 23 36 H Blood Pressure 145/66 H 116/64 Pulse Oximetry 100 96 01/04/18 23:00 01/04/18 23:04 01/05/18 00:00 Temperature 98.6 F Pulse Rate 112 H 110 H 103 H Respiratory Rate 42 H 39 H 36 H Blood Pressure 127/63 125/56 L Pulse Oximetry 93 L 95 96 01/05/18 01:00 01/05/18 02:00 01/05/18 03:00 Temperature Pulse Rate 98 H 103 H 102 H Respiratory Rate 26 H 36 H 27 H Blood Pressure 118/70 118/59 L 130/64 Pulse Oximetry 97 97 95 01/05/18 03:18 01/05/18 04:00 01/05/18 05:00 Temperature 97.7 F Pulse Rate 102 H 100 H 106 H Respiratory Rate 23 28 H 34 H Blood Pressure 113/58 L 121/58 L Pulse Oximetry 97 97 01/05/18 06:00 01/05/18 06:24 01/05/18 07:00 Temperature Pulse Rate 103 H 103 H 106 H Respiratory Rate 34 H 31 H 31 H Blood Pressure 116/56 L 129/59 L Pulse Oximetry 96 100 97 01/05/18 07:41 01/05/18 08:00 01/05/18 11:27 Temperature 97.2 F L Pulse Rate 116 H 115 H 111 H Respiratory Rate 20 34 H 24 Blood Pressure 147/65 H Pulse Oximetry 94 L 96 01/05/18 12:00 Temperature 97.9 F Pulse Rate 115 H Respiratory Rate 38 H Blood Pressure 123/60 Pulse Oximetry 93 L Intake & Output 01/04/18 01/05/18 01/05/18 18:59 06:59 18:59 Intake Total 1192.5 / 1192.5 540 / 540 Output Total 925 / 925 1050 / 1050 Balance 267.5 / 267.5 -510 / -510 Weight 73.4 kg Intake: IV 712.5 / 712.5 300 / 300 Azithromycin Inj 500 MG In NS 250 / 250 Inj 250 ML @ 250 mls/hr IV.SIG Q24H NOAH Rx#:[id number] Zosyn 4.5 GM Premix 4.5 gm In 200 / 200 300 / 300 100 ml @ 200 mls/hr IV.SIG Q6H NOAH Rx#:[id number] Vancomycin Inj 1,250 MG In NS 262.5 / 262.5 Inj 250 ML @ 250 mls/hr IV.SIG Q24H NOAH Rx#:[id number] Oral 480 / 480 240 / 240 Tube Feeding 0 / 0 Tube Irrigant 0 / 0 Water Bolus Amount 0 / 0 Other 0 / 0 Output: Urine 0 / 0 Urine Amount (Catheter) 925 / 925 1050 / 1050 Condom 925 / 925 1050 / 1050 Other: # Voids 0 # Incontinent Voids 0 Date of Last Bowel Movement 01/04/18 01/04/18 01/04/18 # Bowel Movements 1 0 # Incontinent Bowel Movements 0 Narrative: General: no acute distress. resting in bed. HEENT extraocular movements are intact, clear oropharyngeal mucosa, no JVD Cardiovascular S1-S2 audible Respiratory bibasilar crackles, severe decreased breath sounds bilateral. Abdomen: soft, nontender, positive bowel sounds. Extremities: 2+ pitting edema bilateral lower extremities up to the thighs. Well-healed scar on his left hip status post IT nailing. Neuro: patient does move all 4 extremities sensation is intact bilaterally - Urinary Catheter Management Straight Cath placed during this visit: yes, but has since been removed by the nurse Reason for continuing: Not indwelling catheter Insertion date: 12/23/17 Insertion time: 01:00 Removal date: 12/22/17 Removal time: 01:00 Condom Cath placed during this visit: no Results - Labs CBC & Chem 7: 01/05/18 05:18 01/05/18 05:18 Laboratory Results - last 24 hr 01/04/18 01/04/18 01/05/18 17:38 20:43 00:34 WBC RBC Hgb Hct MCV MCH MCHC RDW Plt Count MPV Sodium Potassium Chloride Carbon Dioxide Anion Gap BUN Creatinine Estimated GFR POC Glucose 363 H 311 H 132 H Random Glucose Calcium Phosphorus Magnesium 01/05/18 01/05/18 01/05/18 05:18 05:18 05:18 WBC 7.6 RBC 3.20 L Hgb 9.7 L Hct 29.4 L MCV 91.9 MCH 30.3 MCHC 32.9 RDW 15.0 Plt Count 98 L MPV 8.5 Sodium 141 Potassium 3.5 Chloride 99 Carbon Dioxide 35.5 H Anion Gap 7 BUN 15 Creatinine 0.78 Estimated GFR Greater than 89 POC Glucose 85 Random Glucose 77 Calcium 8.3 L Phosphorus 3.1 Magnesium 2.0 01/05/18 01/05/18 08:28 11:47 WBC RBC Hgb Hct MCV MCH MCHC RDW Plt Count MPV Sodium Potassium Chloride Carbon Dioxide Anion Gap BUN Creatinine Estimated GFR POC Glucose 166 H 209 H Random Glucose Calcium Phosphorus Magnesium Assessment and Plan - Plan This patient is an 82-year-old male with a diagnosis of COPD, pulmonary hypertension, congestive heart failure with preserved ejection fraction on 2-4 L of supplemental oxygen at home. The patient initially presented to our emergency department complaints of shortness of breath and was admitted to the intensive care unit with a COPD exacerbation and CHF exacerbation. He was treated in the intensive care unit and then transferred to the medicine floor however again became short of breath and again needed intensive care. The patient has now been transferred to my care. 1. Congestive heart failure exacerbation 2. Acute hypoxic hypercapnic respiratory failure likely secondary to #1 and COPD exacerbation and left lower lobe pneumonia. The patient's abdominal wall edema as well as bilateral lower extremity edema have improved, but will continue Diuretics Lasix 40 mg BID by mouth and continue Potassium replacement. electrolyte replacement. Continue diuresis. Carbon dioxide stable. The patient has a preserved ejection fraction of around 55-60% as per documentation. Blood pressure and heart rate are stable. A condom catheter has been placed for strict ins and outs. 1.5 L fluid restriction The patient does have an elevation of his bicarb due to the patient's chronic lung disease. Continue supplemental oxygen as needed. The patient is currently on 5 L of oxygen. The patient has an extensive tobacco smoking history however has not smoked for nearly 2 years. Continue supplemental oxygen, patient oxygen requirements have improved. Continue IV Solu-Medrol and antibiotics as per pulmonary recommendations. BiPAP at night Continue breathing treatments. 3. Hyperglycemia Likely from Solu-Medrol. The patient does not have any previous diagnosis of diabetes. We will continue with low doses of Levemir and continue to monitor patient's blood sugars. Insulin sliding scale changed to low-dose as his blood sugars was less than 70 this morning. 4. History of left IT nailing Continue PT. The patient's is requesting that PT try to have the patient sit in the chair. Pain medication as needed. 5. Left Buttock wound stage II cessation systems outreach specialist following. 6. Sepsis on admission improved. discussed with his Daughters and , and patient, wants Ensure on his tray and also ID specialist consult I agree. Lovenox for DVT prophylaxis. Code Status: Full code. Discussed Condition With: Patient, Nurse Miss Richardson and Daughters and . Discharge Planning: not yet cleared for discharge.
--- NOTE | 2018-01-05 17:19 | XR ---
EXAM DATE: 01/05/2018 12:00 AM EDT AGE/SEX: 82 years / Male INDICATIONS: Shortness of breath. CLINICAL DATA: This is the patient's subsequent encounter. Patient reports that signs and symptoms h ave been present for 2 weeks and indicates a pain score of 0/10. MEDICAL/SURGICAL HISTORY: . Chronic obstructive pulmonary disease. Diabetes mellitus type II. S epsis. CHF. . Lobectomy. [place] [facility] [place]. . FINDINGS: A single AP view of the chest demonstrates moderate to large left-sided pleural opacity. Pleural pare nchymal density in the right lung base is stable. Right apical density is also seen and stable. Heart appears enlarged. Osseous structures are intact. CONCLUSION: Stable chest with prominent lateral left-sided pleural opacity likely pleural effusion. Pleural-paren chymal density right lung is also stable. Electronically signed by: Landon Carlin MD 01/05/2018 5:18 PM EDT
[2018-01-05] MEDS: Acetaminophen 325 MG Tablet PO PRN (20:44)
[2018-01-06] MEDS: Insulin NovoLIN Regular Correctional Sugar Inj SQ SCH ×4 (00:23→21:21)
[2018-01-06] MEDS: Piperacil/Tazo 4.5 GM Premix 4.5 GM/100 ML BAG IV.SIG SCH ×5 (00:23→23:03)
[2018-01-06] MEDS: Oral Hygiene Kit OROPHARYNG SCH ×5 (00:23→23:02)
[2018-01-06 08:18] LABS: Hematocrit 27.5 % (39.0-51.0); Hemoglobin 9.2 gm/dL (13.0-17.0); Mean Corpuscular HGB Conc 33.6 % (32.0-36.0); Mean Corpuscular Hemoglobin 30.3 pg (27.0-34.0); Mean Corpuscular Volume 90.4 fL (80.0-100.0); Mean Platelet Volume 8.2 fL (7.0-11.0); Platelet Count 85 th/mm3 (150-450); Red Blood Count 3.04 mil/mm3 (4.50-5.90); Red Cell Distribution Width 15.3 % (11.6-17.2); White Blood Count 7.2 th/mm3 (4.0-11.0)
[2018-01-06 08:20] LABS: Anion Gap 7 meq/L (5-15); Blood Urea Nitrogen 14 mg/dL (7-18); Calcium 7.9 mg/dL (8.5-10.1); Carbon Dioxide 35.9 meq/L (21.0-32.0); Chloride 99 meq/L (98-107); Glomerular Filtration Rate Greater Than 89 mL/min (>89); Glucose,Random 77 mg/dL (74-106); Magnesium 2.2 mg/dL (1.5-2.5); Phosphorus 3.1 mg/dL (2.5-4.9); Potassium 3.6 meq/L (3.5-5.1); Sodium 142 meq/L (136-145)
[2018-01-06] MEDS: Chlorhexidine 0.12% Oral Kit 15 ML UDC OROPHARYNG SCH ×2 (09:13→21:21)
[2018-01-06] MEDS: Enoxaparin Inj 40 MG/0.4 ML Syringe SQ SCH (09:14)
[2018-01-06] MEDS: Carboxymethylcellulose 0.5% Opth Drops 15 ML Bottle EACH EYE SCH ×2 (09:14→21:22)
[2018-01-06] MEDS: Budesonide-Formoterol 160/4.5 MCG 6 GM Inhaler INH SCH ×2 (09:14→21:22)
[2018-01-06] MEDS: Insulin Detemir Inj 1,000 UNIT/10 ML Vial SQ SCH ×2 (09:14→21:22)
[2018-01-06] MEDS: predniSONE 20 MG Tablet PO SCH (09:15)
[2018-01-06] MEDS: Furosemide 40 MG Tablet PO SCH ×2 (09:15→18:33)
[2018-01-06] MEDS: Potassium Chloride 25 MEQ Effervescent Tablet PO SCH (09:57)
--- NOTE | 2018-01-06 10:26 | P.PN ---
Subjective Interval history: This is a pleasant 82 y/o Male with COPD, pulmonary hypertension, congestive heart failure with preserved ejection fraction on 2-4 L of supplemental oxygen at home. Came to ER with SOB , admitted to ICU, with Diagnosis of CHF exacerbation and COPD exacerbation. Agree with Boring Machine Operator Helper the patient will need diagnosis Of Sepsis on admission he was found with Leukocytosis tachycardia, tachypneic, positive CXR for pneumonia, at this time seen in his bedroom in the presence of his two daughters and his , followed by document specialist, continue antibiotics, diuresis, wound care, overall Poor short term prognosis. 01/05: Stable in his bedroom, continue present care, following BMP on daily basis, he is improving his family has questions about his antibiotics, and prefer for ID specialist consult I agree and asked for ID specialist consult on the case, will follow in am tomorrow with new CXR, cultures negative so far. 01/06: Patient seen in his bedroom and discussed with nurse, his and his daughters in the room, he is improving his general condition, Seen by ID specialist and recommended for CT chest without contrast. no nausea, vomit or diarrhea. Physical Exam Vital signs: Vital Signs 01/05/18 11:27 01/05/18 12:00 01/05/18 16:00 Temperature 97.9 F 98.0 F Pulse Rate 111 H 115 H 113 H Respiratory Rate 24 38 H 38 H Blood Pressure 123/60 142/66 H Pulse Oximetry 93 L 96 01/05/18 16:54 01/05/18 20:00 01/05/18 21:21 Temperature 97.7 F Pulse Rate 110 H 111 H 104 H Respiratory Rate 24 33 H 18 Blood Pressure 142/62 H Pulse Oximetry 96 95 01/05/18 22:17 01/06/18 00:00 01/06/18 04:00 Temperature 97.3 F L 97.6 F Pulse Rate 106 H 109 H Respiratory Rate 20 32 H 30 H Blood Pressure 133/76 150/70 H Pulse Oximetry 98 98 01/06/18 04:28 01/06/18 08:00 01/06/18 09:00 Temperature 98 F Pulse Rate 106 H 110 H 117 H Respiratory Rate 20 21 Blood Pressure 138/73 Pulse Oximetry 96 01/06/18 09:54 Temperature Pulse Rate Respiratory Rate Blood Pressure Pulse Oximetry 94 L Intake & Output 01/05/18 01/06/18 01/06/18 18:59 06:59 18:59 Intake Total 1200 / 1200 300 / 300 100 / 100 Output Total 1250 / 1250 725 / 725 Balance -50 / -50 -425 / -425 100 / 100 Weight 74 kg Intake: IV 500 / 500 200 / 200 100 / 100 Azithromycin Inj 500 MG In NS 250 / 250 Inj 250 ML @ 250 mls/hr IV.SIG Q24H NOAH Rx#:[id number] Zosyn 4.5 GM Premix 4.5 gm In 200 / 200 100 / 100 100 ml @ 200 mls/hr IV.SIG Q6H NOAH Rx#:[id number] Vancomycin Inj 1,250 MG In NS 250 / 250 Inj 250 ML @ 250 mls/hr IV.SIG Q24H NOAH Rx#:[id number] Oral 700 / 700 100 / 100 Output: Urine Amount (Catheter) 1250 / 1250 725 / 725 Condom 1250 / 1250 725 / 725 Other: # Incontinent Voids 1 Date of Last Bowel Movement 01/04/18 01/05/18 01/04/18 # Bowel Movements 0 2 Narrative: General: no acute distress. resting in bed. HEENT extraocular movements are intact, clear oropharyngeal mucosa, no JVD Cardiovascular S1-S2 audible Respiratory bibasilar crackles, severe decreased breath sounds bilateral. Abdomen: soft, nontender, positive bowel sounds. Extremities: 2+ pitting edema bilateral lower extremities up to the thighs. Well-healed scar on his left hip status post IT nailing. Neuro: patient does move all 4 extremities sensation is intact bilaterally - Urinary Catheter Management Straight Cath placed during this visit: yes, but has since been removed by the nurse Reason for continuing: Not indwelling catheter Insertion date: 12/23/17 Insertion time: 01:00 Removal date: 12/22/17 Removal time: 01:00 Condom Cath placed during this visit: no Results - Labs CBC & Chem 7: 01/07/18 03:30 01/07/18 03:30 Laboratory Results - last 24 hr 01/05/18 01/05/18 01/05/18 11:47 17:19 23:36 WBC RBC Hgb Hct MCV MCH MCHC RDW Plt Count MPV Sodium Potassium Chloride Carbon Dioxide Anion Gap BUN Creatinine Estimated GFR POC Glucose 209 H 286 H 142 H Random Glucose Calcium Phosphorus Magnesium 01/06/18 01/06/18 05:57 05:57 WBC 7.2 RBC 3.04 L Hgb 9.2 L Hct 27.5 L MCV 90.4 MCH 30.3 MCHC 33.6 RDW 15.3 Plt Count 85 L MPV 8.2 Sodium 142 Potassium 3.6 Chloride 99 Carbon Dioxide 35.9 H Anion Gap 7 BUN 14 Creatinine 0.76 Estimated GFR Greater than 89 POC Glucose Random Glucose 77 Calcium 7.9 L Phosphorus 3.1 Magnesium 2.2 - Imaging Impressions Chest X-Ray 01/05/18 00:00 CONCLUSION: Stable chest with prominent lateral left-sided pleural opacity likely pleural effusion. Pleural-parenchymal density right lung is also stable. Assessment and Plan - Plan This patient is an 82-year-old male with a diagnosis of COPD, pulmonary hypertension, congestive heart failure with preserved ejection fraction on 2-4 L of supplemental oxygen at home. The patient initially presented to our emergency department complaints of shortness of breath and was admitted to the intensive care unit with a COPD exacerbation and CHF exacerbation. He was treated in the intensive care unit and then transferred to the medicine floor however again became short of breath and again needed intensive care. The patient has now been transferred to my care. 1. Congestive heart failure exacerbation 2. Acute hypoxic hypercapnic respiratory failure likely secondary to #1 and COPD exacerbation and left lower lobe pneumonia. The patient's abdominal wall edema as well as bilateral lower extremity edema have improved, but will continue Diuretics Lasix 40 mg BID by mouth and continue Potassium replacement. electrolyte replacement. Continue diuresis. Carbon dioxide stable. The patient has a preserved ejection fraction of around 55-60% as per documentation. Blood pressure and heart rate are stable. A condom catheter has been placed for strict ins and outs. 1.5 L fluid restriction The patient does have an elevation of his bicarb due to the patient's chronic lung disease. Continue supplemental oxygen as needed. The patient is currently on 5 L of oxygen. The patient has an extensive tobacco smoking history however has not smoked for nearly 2 years. Continue supplemental oxygen, patient oxygen requirements have improved. Continue Prednisone by mouth. BiPAP at night. 3. Hyperglycemia Likely from Solu-Medrol. The patient does not have any previous diagnosis of diabetes. Improving now off Prednisone. 4. History of left IT nailing Continue PT. The patient's is requesting that PT try to have the patient sit in the chair. Pain medication as needed. 5. Left Buttock wound stage II immigration law specialist following. 6. Sepsis on admission improved. discussed with his Daughters and , and patient, wants Ensure on his tray and also ID specialist consult I agree. Lovenox for DVT prophylaxis. Code Status: Full code. Discussed Condition With: patient, Nurse and his Daughters. Discharge Planning: not yet cleared for discharge. will try to transfer to the Floor later today or in am tomorrow.
--- NOTE | 2018-01-06 15:47 | P.CONID ---
History of Present Illness Service: ID Consult date: 01/06/18 Requesting Physician: Zechariah Weinstein Reason for Consult: sepsis Primary Care Provider: UNKNOWN Family Provider: NONE PER PT History of Present Illness: Pt is unable to provide meaning ful history History obtained from multiple family members 2 bedsideE 82 yo male with remote L side lobectomy (unknown pathology) COPD and absbestosis presented with hypoxia almost 3 weeks ago Pt was dagnosed with oneumonia, intubated and placed on vent He was treated with OZsyn x 1 week. Extubated, transferred to floor and on 12/30 pt was transferred back for another hypoxic even Repeat CXR showed b/l basilar opacities pt has no fever, normal WBC and today abx (zosyn was restarted) Review of Systems unobtainable due to mental condition (dementia) PMFSH - History History Provided By: Family Member, Senior Integration Developer / EMT - Medical History Medical History: Medical History (Last Reviewed 01/06/18 @ 22:24 by Cathi Mayorga MD) COPD (chronic obstructive pulmonary disease) Diabetes Kidney stone Pneumothorax - Surgical History Surgical History: Surgical History (Last Reviewed 01/06/18 @ 22:24 by Cathi Mayorga MD) Status post hip surgery H/O hernia repair S/P lobectomy of lung - Family History Family History: Family History (Last Reviewed 01/06/18 @ 22:25 by Cathi Mayorga MD) Other CAD (coronary artery disease) Family history of cancer Unknown family medical history - Social History I have reviewed the patient's Social History: Yes - Tobacco History Second Hand Smoke Exposure: No Smoking Status: Former smoker Tobacco Type: Cigarettes Packs Per Day: 5 Years Smoked: 72 Smoking End Date: 2015 - Alcohol History How Often Do You Have a Drink Containing Alcohol: Never - Substance Use History Substance History: No History of Abuse - Travel History Recent Travel in the [place] Within the Last 8 Weeks: No Recent Travel Out of the Country Within the Last 8 Weeks: No - Immunization History Tetanus Immunization: Unable to Assess Hx Influenza Vaccine This Season: Unable to Assess Medications and Allergies Active Medications: Active Medications Acetaminophen (Tylenol) 650 mg PO Q6H PRN PRN Reason: fever/pain Last Admin: 01/05/18 20:44 Dose: 650 mg Al Hydroxide/Mg Hydroxide (Milk Of Magnesia Liq) 30 ml PO Q12H PRN PRN Reason: Mild Constipation Albuterol (Albuterol Neb (Prn)) 2.5 mg NEB Q2HR NEB PRN PRN Reason: DYSPNEA Last Admin: 01/05/18 11:27 Dose: 2.5 mg Albuterol (Duoneb Neb (Noah)) 1 ampul NEB Q6HR NEB [facility] Last Admin: 01/06/18 14:58 Dose: 1 ampul Artificial Tears (Refresh Tears 0.5% Opth Drops) 1 drop EACH EYE BID [facility] Last Admin: 01/06/18 09:14 Dose: 1 drop Bisacodyl (Dulcolax Supp) 10 mg RECTAL DAILY PRN PRN Reason: SEVERE CONSITIPATION Budesonide/Formoterol Fumarate (Symbicort 160/4.5 Mcg Inh) 2 puff INH BID [facility] Last Admin: 01/06/18 09:14 Dose: 2 puff Chlorhexidine Gluconate (Peridex 0.12% Oral Kit) 15 ml OROPHARYNG BID@0800, 2000 [facility] Last Admin: 01/06/18 09:13 Dose: Not Given Clonidine HCl (Catapres) 0.1 mg PO Q6H PRN PRN Reason: Sbp>165, Dbp>90, Hr>65 Dextrose (D50w Vial) 50 ml IV.PUSH UNSCH PRN PRN Reason: PER HYPOGLYCEMIA PROTOCOL Diphenhydramine HCl (Benadryl) 25 mg PO HS PRN PRN Reason: INSOMNIA Last Admin: 01/03/18 20:47 Dose: 25 mg Enoxaparin Sodium (Lovenox Inj) 40 mg SQ Q24H [facility] Last Admin: 01/06/18 09:14 Dose: 40 mg Furosemide (Lasix) 40 mg PO BID@0900,1800 [facility] Last Admin: 01/06/18 09:15 Dose: 40 mg Glucagon (Glucagon Inj) 1 mg OTHER PRN PRN PRN Reason: for Hypoglycemia Protocol Hydralazine HCl (Apresoline Inj) 10 mg IV.PUSH Q1H PRN PRN Reason: Sys Bp Greater Than 165 Mmhg Magnesium Sulfate 2 gm/ Sodium (Chloride) 100 mls @ 50 mls/hr IV.SIG UNSCH PRN PRN Reason: For Magnesium 1.2 - 1.6 mg/dL Potassium Chloride (Kcl 40 Meq Premix Inj) 40 meq in 100 mls @ 50 mls/hr IV.SIG Q2H PRN PRN Reason: For Potassium 2.8 - 3.2 mEq/L Potassium Chloride (Kcl 20 Meq Premix Inj) 20 meq in 100 mls @ 50 mls/hr IV.SIG Q2H PRN PRN Reason: For Potassium 3.3 - 3.5 mEq/L Last Infusion: 12/31/17 13:51 Dose: Infused Potassium Chloride (Kcl 40 Meq Premix Inj) 40 meq in 100 mls @ 25 mls/hr IV.SIG UNSCH PRN PRN Reason: For Potassium 3.3 - 3.5 mEq/L Potassium Chloride (Kcl 20 Meq Premix Inj) 20 meq in 100 mls @ 50 mls/hr IV.SIG Q2H PRN PRN Reason: For Potassium 2.8 - 3.2 mEq/L Last Infusion: 12/29/17 01:18 Dose: Infused Potassium Phosphate 30 mmol/ (Sodium Chloride) 260 mls @ 42 mls/hr IV.SIG UNSCH PRN PRN Reason: SEE LABEL COMMENTS Magnesium Sulfate 4 gm/ Sodium (Chloride) 100 mls @ 50 mls/hr IV.SIG UNSCH PRN PRN Reason: For Magnesium 0.9 - 1.1 mg/dL Sodium Phosphate 30 mmol/ (Sodium Chloride) 260 mls @ 42 mls/hr IV.SIG UNSCH PRN PRN Reason: For Phosphorus < 2.5 mg/dL Piperacillin/Tazobactam/Dextrose (Zosyn 4.5 Gm Premix) 4.5 gm in 100 mls @ 200 mls/hr IV.SIG Q6H NOAH Last Infusion: 01/06/18 13:24 Dose: Infused Insulin Detemir (Levemir Inj) 5 unit SQ BID NO[facility] Last Admin: 01/06/18 09:14 Dose: Not Given Insulin Human Regular (Novolin R Correctional Sugar Inj) 0 units SQ Q6HR NOAH; Protocol Last Admin: 01/06/18 12:09 Dose: 5 units Labetalol HCl (Trandate Inj) 10 mg IV.PUSH Q1H PRN PRN Reason: Sbp>165, Dbp>90, Hr>65 Lactulose (Lactulose Liq) 30 ml PO DAILY PRN PRN Reason: SEVERE CONSITIPATION Lansoprazole (Prevacid Solutab) 30 mg NG/OG DAILY [facility] Last Admin: 01/06/18 09:14 Dose: 30 mg Lidocaine HCl (L/M/X 4% Cream) 1 applicatio TOPICAL BID [facility] Last Admin: 01/06/18 09:13 Dose: 1 applicatio Magnesium Oxide (Mag-Ox) 800 mg PO UNSCH PRN PRN Reason: For Magnesium 1.2 - 1.6 mg/dL Miscellaneous Medication () 1 each OROPHARYNG 0000,0400,1200,1600 [facility] Last Admin: 01/06/18 11:45 Dose: 1 each Morphine Sulfate (Morphine Inj) 2 mg IV.PUSH Q4H PRN PRN Reason: Pain 6 through 10 Last Admin: 12/23/17 15:36 Dose: 2 mg Morphine Sulfate (Morphine Inj) 1 mg IV.PUSH Q4H PRN PRN Reason: Pain 1 through 5 Last Admin: 01/01/18 16:10 Dose: 1 mg Nitroglycerin (Nitro-Bid 2% Oint) 1 inch TOPICAL Q6HR PRN PRN Reason: Sbp> Or = 165, Dbp> Or = 90 Ondansetron HCl (Zofran Inj) 4 mg IV.PUSH Q6H PRN PRN Reason: NAUSEA OR VOMITING Potassium Bicarb/Potassium Chloride (K-Lyte Cl Eff) 50 meq PO UNSCH PRN PRN Reason: For Potassium 3.3 - 3.5 mEq/L Last Admin: 01/02/18 08:54 Dose: 50 meq Potassium Bicarb/Potassium Chloride (K-Lyte Cl Eff) 25 meq PO DAILY [facility] Last Admin: 01/06/18 09:57 Dose: 25 meq Potassium Phosphate (K-Phos Original) 2,000 mg PO Q4H PRN PRN Reason: Phosphorus Less Than 2.5 mg/dL Potassium Phosphate (K-Phos Original) 2,000 mg PO UNSCH PRN PRN Reason: SEE LABEL COMMENTS Prednisone (Deltasone) 20 mg PO DAILY [facility] Last Admin: 01/06/18 09:15 Dose: 20 mg Sennosides (Senokot) 17.2 mg PO Q12H PRN PRN Reason: Moderate Constipation Silver Sulfadiazine (Silvadene 1% Cream (50 Gm)) 1 applicatio TOPICAL BID [facility] Last Admin: 01/06/18 09:14 Dose: 1 applicatio Sodium Chloride (Ns Flush) 2 ml IV.FLUSH BID [facility] Last Admin: 01/06/18 09:14 Dose: 2 ml Sodium Chloride (Ns Flush) 2 ml IV.FLUSH PRN PRN PRN Reason: FLUSH AFTER USING IV ACCESS Throat Lozenges (Chloraseptic [place]) 1 spray OROPHARYNG Q2H PRN PRN Reason: THROAT PAIN Last Admin: 01/04/18 14:39 Dose: 1 spray Allergies Allergy/AdvReac Type Severity Reaction Status Date / Time No Known Allergies Allergy Verified 12/19/17 21:39 Home Medications Medication Instructions Recorded Confirmed Type albuterol sulfate 2.5 mg INHALATION Q2H PRN 12/19/17 12/19/17 History budesonide 0.5 mg INHALATION BID 12/19/17 12/19/17 History furosemide 40 mg PO DAILY 12/19/17 12/19/17 History ipratropium-albuterol 3 ml INHALATION Q4H 12/19/17 12/19/17 History multivitamin with minerals 1 tab PO DAILY 12/19/17 12/19/17 History potassium bicarb-citric acid 1 tab PO DAILY 12/19/17 12/19/17 History Exam Vital signs: Vital Signs 01/05/18 16:00 01/05/18 16:54 01/05/18 20:00 Temperature 98.0 F 97.7 F Pulse Rate 113 H 110 H 111 H Respiratory Rate 38 H 24 33 H Blood Pressure 142/66 H 142/62 H Pulse Oximetry 96 96 01/05/18 21:21 01/05/18 22:17 01/06/18 00:00 Temperature 97.3 F L Pulse Rate 104 H 106 H Respiratory Rate 18 20 32 H Blood Pressure 133/76 Pulse Oximetry 95 98 01/06/18 04:00 01/06/18 04:28 01/06/18 08:00 Temperature 97.6 F 98 F Pulse Rate 109 H 106 H 110 H Respiratory Rate 30 H 20 21 Blood Pressure 150/70 H 138/73 Pulse Oximetry 98 96 01/06/18 09:00 01/06/18 09:54 01/06/18 12:00 Temperature 98 F Pulse Rate 117 H 116 H Respiratory Rate 21 Blood Pressure 137/60 Pulse Oximetry 94 L 96 01/06/18 14:58 Temperature Pulse Rate 115 H Respiratory Rate 18 Blood Pressure Pulse Oximetry Intake & Output 01/05/18 01/06/18 01/06/18 18:59 06:59 18:59 Intake Total 1200 / 1200 300 / 300 200 / 200 Output Total 1250 / 1250 725 / 725 Balance -50 / -50 -425 / -425 200 / 200 Weight 74 kg Intake: IV 500 / 500 200 / 200 200 / 200 Azithromycin Inj 500 MG In NS 250 / 250 Inj 250 ML @ 250 mls/hr IV.SIG Q24H NOAH Rx#:[id number] Zosyn 4.5 GM Premix 4.5 gm In 200 / 200 200 / 200 100 ml @ 200 mls/hr IV.SIG Q6H NOAH Rx#:[id number] Vancomycin Inj 1,250 MG In NS 250 / 250 Inj 250 ML @ 250 mls/hr IV.SIG Q24H NOAH Rx#:[id number] Oral 700 / 700 100 / 100 Output: Urine Amount (Catheter) 1250 / 1250 725 / 725 Condom 1250 / 1250 725 / 725 Other: # Incontinent Voids 1 Date of Last Bowel Movement 01/04/18 01/05/18 01/04/18 # Bowel Movements 0 2 - Constitutional mild distress, obese - Routine HEENT Exam Head: Present: normocephalic, atraumatic Eye: Present: EOMI, PERRL ENT: Present: mucous membranes moist, oropharynx clear - Routine Neck Exam Present: supple. Absent: JVD - Routine Respiratory Exam Present: decreased breath sounds (L base), respiratory distress (mild), rhonchi , distant breath sounds - Routine Cardiovascular Exam Present: RRR, S1, S2. Absent: murmur, gallop, rubs - Routine Abdominal Exam Present: soft, normoactive bowel sounds, distended. Absent: tenderness, organomegaly, mass - Routine Extremities Exam Present: cyanosis, edema (minimal), normal capillary refill - Routine Skin Exam Present: dry. Absent: rash - Routine Neurological Exam Present: alert, CN II-XII intact, moving all extremities. Absent: oriented X3 ( x2) - Routine Psychiatric Exam Present: unable to assess Results - Labs CBC & Chem 7: 01/06/18 05:57 01/06/18 05:57 Labs: Laboratory Results - last 24 hr 01/05/18 01/05/18 01/06/18 17:19 23:36 05:57 WBC 7.2 RBC 3.04 L Hgb 9.2 L Hct 27.5 L MCV 90.4 MCH 30.3 MCHC 33.6 RDW 15.3 Plt Count 85 L MPV 8.2 Sodium Potassium Chloride Carbon Dioxide Anion Gap BUN Creatinine Estimated GFR POC Glucose 286 H 142 H Random Glucose Calcium Phosphorus Magnesium 01/06/18 01/06/18 05:57 12:00 WBC RBC Hgb Hct MCV MCH MCHC RDW Plt Count MPV Sodium 142 Potassium 3.6 Chloride 99 Carbon Dioxide 35.9 H Anion Gap 7 BUN 14 Creatinine 0.76 Estimated GFR Greater than 89 POC Glucose 270 H Random Glucose 77 Calcium 7.9 L Phosphorus 3.1 Magnesium 2.2 - Imaging Impressions Chest X-Ray 01/05/18 00:00 CONCLUSION: Stable chest with prominent lateral left-sided pleural opacity likely pleural effusion. Pleural-parenchymal density right lung is also stable. Assessment and Plan - Plan COPD exacerbation Multiple pumonary pathologies (COPD, asbestosis) ? Pleural effusions vs PNA vs atelectasis PLAN: CT chest wo contrast sputum culture (if feasibnle) cont abx for now will adjust per clinical findings and cultures case dw: RN, family @ b/s Dr Weinstein
--- NOTE | 2018-01-06 15:49 | P.PNADD ---
Addendum to Inpatient Note Additional information: Pt seen and examined @ 1530 full note to follow 82 yo with advanced COPD, asbestosis remote L lung resection (many decades ago) Plan - cont abx for now - CT chest wo contrast -sputum clx dw family @ b/s beulah RN
[2018-01-07] MEDS: Insulin NovoLIN Regular Correctional Sugar Inj SQ SCH ×5 (01:01→23:16)
[2018-01-07] MEDS: Oral Hygiene Kit OROPHARYNG SCH ×4 (03:21→23:17)
[2018-01-07 03:50] LABS: Baso % (Auto) 0.2 % (0.0-2.0); Eos # (Auto) 0.1 th/mm3 (0.0-0.4); Eos % (Auto) 1.4 % (0.0-4.0); Hematocrit 31.3 % (39.0-51.0); Hemoglobin 10.2 gm/dL (13.0-17.0); Lymph # (Auto) 0.7 th/mm3 (1.0-4.8); Lymph % (Auto) 8.4 % (9.0-44.0); Mean Corpuscular HGB Conc 32.6 % (32.0-36.0); Mean Corpuscular Hemoglobin 30.3 pg (27.0-34.0); Mean Corpuscular Volume 92.9 fL (80.0-100.0); Mean Platelet Volume 8.2 fL (7.0-11.0); Mono # (Auto) 0.5 th/mm3 (0.0-0.9); Neut # (Auto) 6.5 th/mm3 (1.8-7.7); Platelet Count 80 th/mm3 (150-450); Red Blood Count 3.36 mil/mm3 (4.50-5.90); Red Cell Distribution Width 15.1 % (11.6-17.2); White Blood Count 7.8 th/mm3 (4.0-11.0)
[2018-01-07 04:11] LABS: Carbon Dioxide 40.1 meq/L (21.0-32.0); Potassium 3.9 meq/L (3.5-5.1)
[2018-01-07 04:47] LABS: Ovalocytes 1+; Platelet Morphology Normal (Normal)
[2018-01-07 05:10] LABS: ABG Base Excess 12.2 mmol/L (-2-2); ABG PCO2 82 mmHg (38-42); ABG PO2 65 mmHG (61-120)
[2018-01-07] MEDS: Piperacil/Tazo 4.5 GM Premix 4.5 GM/100 ML BAG IV.SIG SCH ×3 (05:52→17:15)
[2018-01-07 08:11] LABS: ABG Base Excess 11.8 mmol/L (-2-2); ABG PCO2 72 mmHg (38-42); ABG PO2 99 mmHG (61-120)
--- NOTE | 2018-01-07 09:18 | P.PNCC ---
Subjective Subjective Remarks/Hospital Course: 82-year-old male with past medical history of COPD and CHF presents for an evaluation of shortness of breath and hypoxemia worsening over past few days. The nebulizer treatments helped initially however today there were not helpful. EMS reports on scene the O2 sat was in the 80s. He received high flow oxygen and nebulized albuterol in route here. His blood pressure initially in the emergency department was 200/100 however trended down to about 160/90. BiPAP was started in the emergency department with improvement in his O2 sat that has trended towards the high 90s with 100% FiO2 on BiPAP. Shortly after transfer to ICU the patient continues to to be more hypoxemic and restless requiring endotracheal intubation and mechanical ventilation. 12/20: intubated and sedated. still hypercarbic with [id number] respiratory acidosis. family unhappy that patient was intubated: they insisted last night on being a Full Code, but apparently the daughter required that she be notified of exactly what SpO2 the patient was at, and it had to reach a certain low level before she would be ok with intubation. Per overnight records , patient presented with severe respiratory distress, and family reports that EMS stated patient "wouldn't make it all the way to [facility]" due to his pulmonary instability. This morning, hypoxia is somewhat improved. remains on broad spectrum antibiotics. I explained to family that this is likely a new pneumonia causing respiratory failure. I also explained that after recent hip fracture and recent prolonged hospitalization, his baseline end-stage lung disease and NYHA Class IV symptoms are likely to worsen, and this may be worsening of his overall end-stage disease processes. Family continues to state that our facility caused his lung failure during the prior hospitalization. They are also concerned about his poor peripheral perfusion and oliguria, which concerns me also: I explained that his heart failure could not tolerate significant amount of iv fluids, and we have already given him 1500mL over the last 12 hours, but they have insisted on additional iv fluids. I explained he had severe sepsis and the mortality associated with this. Daughter continues to remind me that her father "is coming home with her and getting better" as she has stated multiple times in the past. 12/21: no improvements. remains intubated. clinically becoming volume overloaded - will be forced to start diuresis. 12/22: mental status slightly improved. still failing weaning attempts. 12/23: Afebrile. Currently on PSV trial 15/7 at 45%. Discussed with and daughter at bedside. Chest x-ray revealed ET tube at [place]. Retracted 1 cm. Tolerating tube feeds with family requested 40 cc an hour. Subjective: 12/24: Afebrile. Currently CPAP trial FiO2 at 45%. Tolerating tube feeds if family requested 40 cc an hour. Receiving morphine 1-2 mg every 4 hours as needed pain. 12/25 No events overnight remains intubated off sedation. Tolerated CPAP for several hrs yesterday. Afebrile. 12/26 No events overnight. Patient tolerated CPAP for most of day yesterday. Awake and alert follows commands, on no sedation. 12/27 Patient was extubated yesterday on 4L oxygen. Awake. Afebrile. 12/28 No events overnight. Remains on 4L oxygen. Awake and alert. 12/30: RECONSULT NOTE: reconsulted as rapid response for hypoxia. per the family , patient had desaturation episode to the 60s, placed on NRB. family insisted on transfer back to ICU. when I saw patient on arrival to ICU, patient spo2 99% on NRB. pao2 on NRB was 150. patient is well-known to me with baseline spo2 82- 86% on 5L o2 by NC at home. family states he has another pneumonia. on my review of CXR and lab evidence, unclear if this is new pneumonia vs. old chronic lung disease. patient denies sob or new symptoms. 12/31: no changes. remains on simple mask at 6LPM. not in distress. family does not want to leave ICU and wants to continue ICU care for the remainder of the hospitalization. long discussion about needing to de-escalate level of care prior to hospital discharge. 01/07 Reconsult for Resp. distress. Patient was placed on BIPAP with 60% FIO2. ABG this morning showed some improvements in his resp acidosis with PH:7.34, CO2 72 from 82. CXR from 16/[address] chest today. Objective Vital Signs / I&O: Vital Signs 01/06/18 09:54 01/06/18 12:00 01/06/18 14:58 Temperature 98 F Pulse Rate 116 H 115 H Respiratory Rate 21 18 Blood Pressure 137/60 Pulse Oximetry 94 L 96 01/06/18 16:00 01/06/18 20:00 01/06/18 20:49 Temperature 98.1 F 98.6 F Pulse Rate 114 H 115 H 114 H Respiratory Rate 21 26 H 24 Blood Pressure 133/62 137/63 Pulse Oximetry 97 100 01/06/18 20:52 01/07/18 00:00 01/07/18 03:50 Temperature 98.4 F Pulse Rate 112 H 119 H Respiratory Rate 29 H 30 H Blood Pressure 142/66 H Pulse Oximetry 99 96 01/07/18 04:00 01/07/18 05:20 01/07/18 07:55 Temperature 98.1 F Pulse Rate 119 H Respiratory Rate 35 H Blood Pressure 160/70 H Pulse Oximetry 96 94 L 100 Intake & Output 01/06/18 01/07/18 01/07/18 18:59 06:59 18:59 Intake Total 800 / 800 300 / 300 100 / 100 Output Total 900 / 900 Balance -100 / -100 300 / 300 100 / 100 Weight 74 kg Intake: IV 200 / 200 200 / 200 100 / 100 Zosyn 4.5 GM Premix 4.5 gm In 200 / 200 200 / 200 100 / 100 100 ml @ 200 mls/hr IV.SIG Q6H NOAH Rx#:[id number] Oral 600 / 600 100 / 100 Output: Urine Amount (Catheter) 900 / 900 Condom 900 / 900 Other: # Incontinent Voids 3 Date of Last Bowel Movement 01/04/18 01/06/18 # Bowel Movements 1 1 Result Diagrams: 01/07/18 03:30 01/07/18 03:30 Other Results: Laboratory Results - last 12 hr 01/06/18 01/07/18 01/07/18 23:50 03:09 03:30 WBC 7.8 RBC 3.36 L Hgb 10.2 L Hct 31.3 L MCV 92.9 MCH 30.3 MCHC 32.6 RDW 15.1 Plt Count 80 L MPV 8.2 Prelim Diff (Auto) Slide review pending Neut % (Auto) 84.0 H Lymph % (Auto) 8.4 L Starke % (Auto) 6.0 Eos % (Auto) 1.4 Baso % (Auto) 0.2 Neut # (Auto) 6.5 Lymph # (Auto) 0.7 L Starke # (Auto) 0.5 Eos # (Auto) 0.1 Baso # (Auto) 0.0 WBC Differential . Diff Scan Auto diff confirmed Differential Comment . Platelet Estimate Low L Platelet Morphology Normal Basophilic Stippling Faint H Ovalocytes 1+ H Puncture Site Patient Temperature O2 Saturation ABG pH ABG pCO2 ABG pO2 ABG HCO3 ABG O2 Content ABG Base Excess ABG Methemoglobin Krishna Test Hemoglobin Carboxyhemoglobin O2 Delivery Device Liter Flow Vent Setting Inspired O2 Critical Value Sodium Potassium Chloride Carbon Dioxide Anion Gap BUN Creatinine Estimated GFR POC Glucose 153 H 160 H Random Glucose Calcium Ammonia 01/07/18 01/07/18 01/07/18 03:30 03:30 04:55 WBC RBC Hgb Hct MCV MCH MCHC RDW Plt Count MPV Prelim Diff (Auto) Neut % (Auto) Lymph % (Auto) Starke % (Auto) Eos % (Auto) Baso % (Auto) Neut # (Auto) Lymph # (Auto) Starke # (Auto) Eos # (Auto) Baso # (Auto) WBC Differential Diff Scan Differential Comment Platelet Estimate Platelet Morphology Basophilic Stippling Ovalocytes Puncture Site Left radial Patient Temperature 98.6 O2 Saturation 89 L* ABG pH 7.30 L ABG pCO2 82 H* ABG pO2 65 ABG HCO3 39 H ABG O2 Content 12.0 ABG Base Excess 12.2 H ABG Methemoglobin 1.2 Krishna Test Present Hemoglobin 9.5 L Carboxyhemoglobin 1.7 O2 Delivery Device Mask Liter Flow 6.00 Vent Setting Inspired O2 Critical Value Yes Sodium 141 Potassium 3.9 Chloride 95 L Carbon Dioxide 40.1 H Anion Gap 6 BUN 15 Creatinine 0.86 Estimated GFR 85 L POC Glucose Random Glucose 155 H Calcium 8.0 L Ammonia 16 01/07/18 07:51 WBC RBC Hgb Hct MCV MCH MCHC RDW Plt Count MPV Prelim Diff (Auto) Neut % (Auto) Lymph % (Auto) Starke % (Auto) Eos % (Auto) Baso % (Auto) Neut # (Auto) Lymph # (Auto) Starke # (Auto) Eos # (Auto) Baso # (Auto) WBC Differential Diff Scan Differential Comment Platelet Estimate Platelet Morphology Basophilic Stippling Ovalocytes Puncture Site Left radial Patient Temperature 98.6 O2 Saturation 95 ABG pH 7.34 L ABG pCO2 72 H* ABG pO2 99 ABG HCO3 38 H ABG O2 Content 12.2 ABG Base Excess 11.8 H ABG Methemoglobin 1.4 Krishna Test Present Hemoglobin 9.1 L Carboxyhemoglobin 1.6 O2 Delivery Device Bipap Liter Flow Vent Setting See comments Inspired O2 60 Critical Value Yes Sodium Potassium Chloride Carbon Dioxide Anion Gap BUN Creatinine Estimated GFR POC Glucose Random Glucose Calcium Ammonia Imaging: Abdomen X-Ray 01/01/18 00:00 CONCLUSION: 1. No bowel obstruction, ileus or perforation. 2. Degenerative changes and scoliosis of the lumbar spine. Chest X-Ray 01/05/18 00:00 CONCLUSION: Stable chest with prominent lateral left-sided pleural opacity likely pleural effusion. Pleural-parenchymal density right lung is also stable. Objective Remarks: GENERAL: 82-year-old male lying in bed in mild resp distress. HEENT: Normocephalic. Atraumatic. Pupils equal, round, reactive, conjugate. Mucous membranes are moist NECK: Trachea is midline. No JVD, CHEST: B/l equal air entry, diminished at bases CARDIOVASCULAR: Normal rate, regular rhythm. sinus. ABDOMEN: Soft, nontender, nondistended. No guarding. MUSCULOSKELETAL: Pulses 2+. significant evidence of scrotal edema. 1+ peripheral edema. No mottling NEUROLOGICAL: Awake, alert Assessment and Plan - Assessment and Plan Plan: Neuro: Acute metabolic encephalopathy- resolved Awake and follows commands. avoid sedatives Acetaminophen liquid 650 every 6 hours as needed fever Respiratory: End-stage COPD Status post left lower lobe pneumonectomy Right lower lobe healthcare associated pneumonia Congestive heart failure secondary to severe pulmonary hypertension and right ventricular dysfunction On 5 L oxygen by nasal cannula at home continuously Continue with oxygen keep sats >92% Bronchodilators, IS NIPPV PRN for resp distress Change PO prednisone to Methylprednisolone succinate 40 mg IV Q6 [address] CT chest today Give Diamox 500mg IV x1 Pulmonary is following- Dr. 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 Normal left ventricular size. Wall thickness is normal. No regional wall motion abnormalities are present. Diffuse calcification of the aortic valve but no significant stenosis. There is mild to moderate tricuspid valve regurgitation. The estimated pulmonary arterial pressure is 76.9 mmHg with severe pulmonary hypertension. Continue furosemide 40 mg daily/home medication: As needed labetalol and Nitropaste for hypertension Renal/: Acute kidney injury History of nephrolithiasis Monitor renal function, I/O's, electrolytes replacement per protocol. Change Lasix 40mg daily FEN/GI: Severe acute protein calorie malnutrition On PO diet Lansoprazole for GI prophylaxis Docusate sodium/senna 1 tablet twice daily for bowel regimen ID: Healthcare associated pneumonia Severe sepsis- present on admission Normocytic anemia Thrombocytopenia Continue Zosyn for now monitor for signs of infections ( Fever, WBC) check sputum cx For CT chest Sputum culture 12/20-shea resp vaishnavi Blood cultures 12/19 no growth Urine UA with urine culture 12/20-NGTD Negative Legionella and pneumococcal urinary antigens Monitor CBC daily and follow trends. No indication for transfusion of blood products at this time Endocrine: Hyperglycemia of critical illness -- SSI to maintain euglycemia with aspart insulin every 6 hours high. insulin detemir 5 twice daily Heme: Anemia Thrombocytopenia Monitor CBC, check Hep PLT ab, hold Lovenox MSK:: History of left IT nailing 11/14 Vitamin D deficiency PT evaluate and treat Prophylaxis: GI Prophylaxis Lansoprazole DVT Prophylaxis -- SCDs - Hold Enoxaparin given worsening thrombocytopenia and Hemoccult positive Lines: Peripheral IVs Discussed with patient's and ICU nursing staff Level 3
[2018-01-07] MEDS: Chlorhexidine 0.12% Oral Kit 15 ML UDC OROPHARYNG SCH ×2 (10:06→21:44)
[2018-01-07] MEDS: Enoxaparin Inj 40 MG/0.4 ML Syringe SQ SCH (10:09)
[2018-01-07] MEDS: Budesonide-Formoterol 160/4.5 MCG 6 GM Inhaler INH SCH ×2 (10:10→21:45)
[2018-01-07] MEDS: MethylPREDNISolone Sod Succinate Inj 40 MG/ML Vial IV.PUSH SCH ×3 (10:10→21:45)
[2018-01-07] MEDS: Carboxymethylcellulose 0.5% Opth Drops 15 ML Bottle EACH EYE SCH ×2 (10:10→21:45)
[2018-01-07] MEDS: Potassium Chloride 25 MEQ Effervescent Tablet PO SCH (10:11)
[2018-01-07] MEDS: Insulin Detemir Inj 1,000 UNIT/10 ML Vial SQ SCH ×2 (10:11→21:44)
[2018-01-07] MEDS: Furosemide 40 MG Tablet PO SCH (10:26)
[2018-01-07] MEDS: predniSONE 20 MG Tablet PO SCH (10:26)
--- NOTE | 2018-01-07 11:24 | CT ---
EXAM DATE: 01/07/2018 10:37 AM EDT AGE/SEX: 82 years / Male INDICATIONS: Pleural effusion, dyspnea CLINICAL DATA: This is the patient's initial encounter. Patient reports that signs and symptoms have been present for 1 day and indicates a pain score of 0/10. MEDICAL/SURGICAL HISTORY: Chronic obstructive pulmonary disease. Diabetes. None. RADIATION DOSE: 9.51 CTDI (mGy) COMPARISON: [facility] [place], CHEST 1V SINGLE AP, 01/05/2018. . TECHNIQUE: Multiple contiguous axial images were obtained through the chest without contrast. Image s were obtained in suspended respiration using multiple row detector helical technique. Using automa zohaib exposure control and adjustment of the mA and/or kV according to patient size, radiation dose was kept as low as reasonably achievable to obtain optimal diagnostic quality images. DICOM format imag e data is available electronically for review and comparison. FINDINGS: Lung: Postsurgical features of suspected previous left sided lobectomy with significant volume loss and mediastinal shift to the left. Mild airspace consolidation in the left lung base adjacent chronic appearing pleural changes and pleural fluid. Dense airspace consolidation near the superior segment of the right lower lobe with patchy interstitial and groundglass opacities throughout the right lower lobe. Pleura: Mild calcified right-sided pleural plaque with trace right pleural effusion with fluid exten ding into the major fissure. Loculated small to moderate-sized left-sided pleural effusion with diffu se pleural thickening and bulky calcified pleural plaques. Mediastinum: Heart is grossly unremarkable. Calcified right hilar node. Mild coronary artery calcifi cations. Osseous Structures: No abnormal focal lytic or blastic bony lesions. Soft Tissues: Soft tissues are unremarkable. No significant axillary adenopathy. Other: Small amount of ascites primarily along the margins of the liver and spleen and visualized up per abdomen. CONCLUSION: 1. Postsurgical features of suspected previous left-sided lobectomy with volume loss and mediastinal shift to the left. 2. Bulky left-sided pleural plaques with chronic appearing small to moderate sized loculated left pl eural effusion. 3. Dense airspace consolidation in the superior segment of the right lower lobe with patchy intersti tial and groundglass opacities throughout the right lower lobe. Differential considerations include p neumonia and aspiration in the appropriate clinical setting. 4. Trace right-sided pleural effusion with fluid extending into the major fissure. 5. Mild coronary artery calcifications. 6. Small amount of ascites in the visualized upper abdomen. Electronically signed by: Kyaw Gallo MD 01/07/2018 11:22 AM EDT
--- NOTE | 2018-01-07 11:47 | P.PNWCN ---
Wound Care Nurse Consult Description: Vocera notification of patient family request for re-evaluation of buttocks x2 Communicated with: Annamarie resendez Recommendation: 1. Reposition patient from left to right sides Q2H 2. Nutrition consult for wounds 3. Obtain and place patient on low air loss mattress ordered 4. Use disposable moisture wicking underpad with air mattress. Please no cotton pull pads. 5..Please apply Ritters cream to affected area BID or as needed for incontinence. Additional information: Wire Mesh Filter Fabricator received vocera call x2 stating patient family request wound care nurse to provide daily wound care.Wire Mesh Filter Fabricator and Sarahi [facility] arrived at patient room in which patient was in recliner chair.Daughter stated father is in pain in "bottom " and asked if sign writer hand and coworker needed to transfer patient into bed for wound assessment.Wire Mesh Filter Fabricator turned on power of ed in which was set correctly for patient weight.Spouse of patient stated she never seen the bed on. Wire Mesh Filter Fabricator explained that bed has correct settings and staff would have been able to identify if bed was off.reinforced teaching on treatment of bed and moisture climate control and why we do not use cotton underpads on specialty beds.Wire Mesh Filter Fabricator was able to receive order for "Ritters" cream which consist of lidocaine and Silvadene for bilateral buttocks wound.Though family verbalized understanding and understanding of patient health status. Wire Mesh Filter Fabricator believes family will fabricate a reason for automotive sales specialist to return.Report given to Nixon craig. Wound/Pressure Injury - Patient Status Premedicated for Pain Prior to Dressing Change: Yes - Wound Bilat Buttocks Wound Assessment: Ongoing Wound Type: Maceration Is This a Chronic Wound: No Requested from Provider a Wound Care Consult: No (Carlito COLVIN,[facility] seen 01/05) - Additional Information Patient was positioned to his right side for assessment with assistance of family members at bedside. Two wounds noted to right buttock, largest now measuring 2cm x 2.3cm x <0.2cm of pink and white moist tissue with no active drainage and no odor. Periwound is noted with dry flaking previously denuded skin. Smaller wound to right buttock now measures 1cm x 1.8cm x <0.1cm of dull red tissue with no active drainage and no odor. All wounds have jagged peeling wound margins indicating a mixed etiology of moisture/friction. Left buttock wound is largest of all wounds visualized and oval in shape previously staged as a stage 2 pressure injury. Wound is now measuring 4cm x 3.5cm x <0.1cm of moist pink tissue now with friable moist maroon/black discoloration within the wound bed measuring ~1cm x 0.4cm x 0cm that appears to be from previous bleeding or a new DTI. Wound margins are sharp and well defined. Periwound is dry and flaking from previously denuded skin. There is no active drainage and no odor. All wounds were encrusted prior to applying Calazime skin protectant paste. Patient was repositioned to his right side and sat up slightly in bed. Patient family was educated on wound healing criteria including but not limited to oxygen WNL, pressure relief with manual repositioning Q2H from left to right sides only, nutritional supplements, and use of disposable underpads for moisture wicking to keep skin dry. Patient may be allowed to get up to chair with frequent positioning Q1H while in chair. Airapy low airloss mattress ordered through environmental. All persons present verbalized understanding of teaching.
--- NOTE | 2018-01-07 15:11 | P.PN ---
Subjective Interval history: This is a pleasant 82 y/o Male with COPD, pulmonary hypertension, congestive heart failure with preserved ejection fraction on 2-4 L of supplemental oxygen at home. Came to ER with SOB , admitted to ICU, with Diagnosis of CHF exacerbation and COPD exacerbation. Agree with Wood Science Professor the patient will need diagnosis Of Sepsis on admission he was found with Leukocytosis tachycardia, tachypneic, positive CXR for pneumonia, at this time seen in his bedroom in the presence of his two daughters and his , followed by learning design specialist, continue antibiotics, diuresis, wound care, overall Poor short term prognosis. 01/05: Stable in his bedroom, continue present care, following BMP on daily basis, he is improving his family has questions about his antibiotics, and prefer for ID specialist consult I agree and asked for ID specialist consult on the case, will follow in am tomorrow with new CXR, cultures negative so far. 01/06: Patient seen in his bedroom and discussed with nurse, his and his daughters in the room, he is improving his general condition, Seen by ID specialist and recommended for CT chest without contrast. 01/07: Late Entry seen early in the morning in the presence of nurse Miss De Guzman, his present and his two Daughters he had to be placed on BiPAP during the night found on new ABGs with high CO2 and Oxygen desaturation. asked for telecommunications specialist again for management. patient worsened his clinical status. Physical Exam Vital signs: Vital Signs 01/06/18 16:00 01/06/18 20:00 01/06/18 20:49 Temperature 98.1 F 98.6 F Pulse Rate 114 H 115 H 114 H Respiratory Rate 21 26 H 24 Blood Pressure 133/62 137/63 Pulse Oximetry 97 100 01/06/18 20:52 01/07/18 00:00 01/07/18 03:50 Temperature 98.4 F Pulse Rate 112 H 119 H Respiratory Rate 29 H 30 H Blood Pressure 142/66 H Pulse Oximetry 99 96 01/07/18 04:00 01/07/18 05:20 01/07/18 07:00 Temperature 98.1 F 99 F Pulse Rate 119 H 115 H Respiratory Rate 35 H Blood Pressure 160/70 H 126/80 Pulse Oximetry 96 94 L 97 01/07/18 07:55 01/07/18 08:00 01/07/18 08:16 Temperature Pulse Rate 112 H 116 H Respiratory Rate Blood Pressure 128/66 Pulse Oximetry 100 100 96 01/07/18 09:00 01/07/18 09:10 01/07/18 10:00 Temperature Pulse Rate 111 H 114 H 114 H Respiratory Rate 27 H Blood Pressure Pulse Oximetry 88 L 89 L 01/07/18 11:00 01/07/18 11:32 01/07/18 11:48 Temperature Pulse Rate 109 H Respiratory Rate 25 H Blood Pressure Pulse Oximetry 96 96 96 01/07/18 12:00 01/07/18 12:20 01/07/18 13:00 Temperature 98.5 F Pulse Rate 114 H 112 H 111 H Respiratory Rate Blood Pressure 122/60 Pulse Oximetry 96 96 96 01/07/18 14:00 Temperature Pulse Rate 103 H Respiratory Rate 30 H Blood Pressure Pulse Oximetry 97 Intake & Output 01/06/18 01/07/18 01/07/18 18:59 06:59 18:59 Intake Total 800 / 800 300 / 300 100 / 100 Output Total 900 / 900 Balance -100 / -100 300 / 300 100 / 100 Weight 74 kg Intake: IV 200 / 200 200 / 200 100 / 100 Zosyn 4.5 GM Premix 4.5 gm In 200 / 200 200 / 200 100 / 100 100 ml @ 200 mls/hr IV.SIG Q6H NOAH Rx#:[id number] Oral 600 / 600 100 / 100 Output: Urine Amount (Catheter) 900 / 900 Condom 900 / 900 Other: # Incontinent Voids 3 Date of Last Bowel Movement 01/04/18 01/06/18 # Bowel Movements 1 1 Narrative: General: no acute distress. resting in bed. HEENT extraocular movements are intact, clear oropharyngeal mucosa, no JVD, with Non rebreather mask at this time. Cardiovascular S1-S2 audible Respiratory bibasilar crackles, severe decreased breath sounds bilateral. Abdomen: soft, nontender, positive bowel sounds. Extremities: 2+ pitting edema bilateral lower extremities up to the thighs. Well-healed scar on his left hip status post IT nailing. Neuro: patient does move all 4 extremities sensation is intact bilaterally - Urinary Catheter Management Straight Cath placed during this visit: yes, but has since been removed by the nurse Reason for continuing: Not indwelling catheter Insertion date: 12/23/17 Insertion time: 01:00 Removal date: 12/22/17 Removal time: 01:00 Condom Cath placed during this visit: no Results - Labs CBC & Chem 7: 01/07/18 03:30 01/07/18 03:30 Laboratory Results - last 24 hr 01/06/18 01/06/18 01/07/18 19:22 23:50 03:09 WBC RBC Hgb Hct MCV MCH MCHC RDW Plt Count MPV Prelim Diff (Auto) Neut % (Auto) Lymph % (Auto) [place] % (Auto) Eos % (Auto) Baso % (Auto) Neut # (Auto) Lymph # (Auto) [place] # (Auto) Eos # (Auto) Baso # (Auto) WBC Differential Diff Scan Differential Comment Platelet Estimate Platelet Morphology Basophilic Stippling Ovalocytes Puncture Site Patient Temperature O2 Saturation ABG pH ABG pCO2 ABG pO2 ABG HCO3 ABG O2 Content ABG Base Excess ABG Methemoglobin Krishna Test Hemoglobin Carboxyhemoglobin O2 Delivery Device Liter Flow Vent Setting Inspired O2 Critical Value Sodium Potassium Chloride Carbon Dioxide Anion Gap BUN Creatinine Estimated GFR POC Glucose 404 H 153 H 160 H Random Glucose Calcium Ammonia 01/07/18 01/07/18 01/07/18 03:30 03:30 03:30 WBC 7.8 RBC 3.36 L Hgb 10.2 L Hct 31.3 L MCV 92.9 MCH 30.3 MCHC 32.6 RDW 15.1 Plt Count 80 L MPV 8.2 Prelim Diff (Auto) Slide review pending Neut % (Auto) 84.0 H Lymph % (Auto) 8.4 L [place] % (Auto) 6.0 Eos % (Auto) 1.4 Baso % (Auto) 0.2 Neut # (Auto) 6.5 Lymph # (Auto) 0.7 L [place] # (Auto) 0.5 Eos # (Auto) 0.1 Baso # (Auto) 0.0 WBC Differential . Diff Scan Auto diff confirmed Differential Comment . Platelet Estimate Low L Platelet Morphology Normal Basophilic Stippling Faint H Ovalocytes 1+ H Puncture Site Patient Temperature O2 Saturation ABG pH ABG pCO2 ABG pO2 ABG HCO3 ABG O2 Content ABG Base Excess ABG Methemoglobin Krishna Test Hemoglobin Carboxyhemoglobin O2 Delivery Device Liter Flow Vent Setting Inspired O2 Critical Value Sodium 141 Potassium 3.9 Chloride 95 L Carbon Dioxide 40.1 H Anion Gap 6 BUN 15 Creatinine 0.86 Estimated GFR 85 L POC Glucose Random Glucose 155 H Calcium 8.0 L Ammonia 16 01/07/18 01/07/18 01/07/18 04:55 07:51 10:08 WBC RBC Hgb Hct MCV MCH MCHC RDW Plt Count MPV Prelim Diff (Auto) Neut % (Auto) Lymph % (Auto) [place] % (Auto) Eos % (Auto) Baso % (Auto) Neut # (Auto) Lymph # (Auto) [place] # (Auto) Eos # (Auto) Baso # (Auto) WBC Differential Diff Scan Differential Comment Platelet Estimate Platelet Morphology Basophilic Stippling Ovalocytes Puncture Site Left radial Left radial Patient Temperature 98.6 98.6 O2 Saturation 89 L* 95 ABG pH 7.30 L 7.34 L ABG pCO2 82 H* 72 H* ABG pO2 65 99 ABG HCO3 39 H 38 H ABG O2 Content 12.0 12.2 ABG Base Excess 12.2 H 11.8 H ABG Methemoglobin 1.2 1.4 Krishna Test Present Present Hemoglobin 9.5 L 9.1 L Carboxyhemoglobin 1.7 1.6 O2 Delivery Device Mask Bipap Liter Flow 6.00 Vent Setting See comments Inspired O2 60 Critical Value Yes Yes Sodium Potassium Chloride Carbon Dioxide Anion Gap BUN Creatinine Estimated GFR POC Glucose 127 H Random Glucose Calcium Ammonia 01/07/18 13:14 WBC RBC Hgb Hct MCV MCH MCHC RDW Plt Count MPV Prelim Diff (Auto) Neut % (Auto) Lymph % (Auto) [place] % (Auto) Eos % (Auto) Baso % (Auto) Neut # (Auto) Lymph # (Auto) [place] # (Auto) Eos # (Auto) Baso # (Auto) WBC Differential Diff Scan Differential Comment Platelet Estimate Platelet Morphology Basophilic Stippling Ovalocytes Puncture Site Patient Temperature O2 Saturation ABG pH ABG pCO2 ABG pO2 ABG HCO3 ABG O2 Content ABG Base Excess ABG Methemoglobin Krishna Test Hemoglobin Carboxyhemoglobin O2 Delivery Device Liter Flow Vent Setting Inspired O2 Critical Value Sodium Potassium Chloride Carbon Dioxide Anion Gap BUN Creatinine Estimated GFR POC Glucose 119 H Random Glucose Calcium Ammonia - Imaging Impressions Chest CT 01/07/18 00:00 CONCLUSION: 1. Postsurgical features of suspected previous left-sided lobectomy with volume loss and mediastinal shift to the left. 2. Bulky left-sided pleural plaques with chronic appearing small to moderate sized loculated left pleural effusion. 3. Dense airspace consolidation in the superior segment of the right lower lobe with patchy interstitial and groundglass opacities throughout the right lower lobe. Differential considerations include pneumonia and aspiration in the appropriate clinical setting. 4. Trace right-sided pleural effusion with fluid extending into the major fissure. 5. Mild coronary artery calcifications. 6. Small amount of ascites in the visualized upper abdomen. Assessment and Plan - Plan This patient is an 82-year-old male with a diagnosis of COPD, pulmonary hypertension, congestive heart failure with preserved ejection fraction on 2-4 L of supplemental oxygen at home. The patient initially presented to our emergency department complaints of shortness of breath and was admitted to the intensive care unit with a COPD exacerbation and CHF exacerbation. He was treated in the intensive care unit and then transferred to the medicine floor however again became short of breath and again needed intensive care. The patient has now been transferred to my care. 1. Congestive heart failure exacerbation 2. Acute hypoxic hypercapnic respiratory failure likely secondary to #1 and COPD exacerbation and left lower lobe pneumonia. The patient's abdominal wall edema as well as bilateral lower extremity edema have improved, but will continue Diuretics Lasix 40 mg BID by mouth and continue Potassium replacement. electrolyte replacement. Continue diuresis. Carbon dioxide high. The patient has a preserved ejection fraction of around 55-60% as per documentation. Blood pressure and heart rate are stable. A condom catheter has been placed for strict ins and outs. 1.5 L fluid restriction The patient does have an elevation of his bicarb due to the patient's chronic lung disease. Continue supplemental oxygen as needed. The patient is currently on 5 L of oxygen. The patient has an extensive tobacco smoking history however has not smoked for nearly 2 years. Continue supplemental oxygen, patient oxygen requirements have improved. Continue Prednisone by mouth. BiPAP at night. at the time of my evaluation was not performed the CT chest but later was performed and found Postsurgical features of suspected previous left sided Lobectomy, with volume loss and mediastinal shift to the left, chronic appearing small to moderate sized loculated left pleural effusion, Dense airspace consolidation in the superior segment of the right lower lobe, with patchy interstitial and groundglass opacities, throughout the right lower lobe, Trace right sided pleural effusion. 3. Hyperglycemia Likely from Solu-Medrol. The patient does not have any previous diagnosis of diabetes. Improving now off Prednisone. 4. History of left IT nailing Continue PT. The patient's is requesting that PT try to have the patient sit in the chair. Pain medication as needed. 5. Left Buttock wound stage II provider education specialist following. 6. Sepsis on admission improved. discussed with his Daughters and , and patient. Asked for telecommunications specialist management patient worsening respiratory condition Lovenox for DVT prophylaxis. Code Status: Full code. Discussed Condition With: Patient, Nurse, his and Daughters. Discharge Planning: worsening status today.
--- NOTE | 2018-01-07 15:44 | P.PNPAL ---
Reason for Visit Reason for visit: a. To assist with evaluation and management of symptoms including: dyspnea, pain b. To assist medical decision maker(s) with: better understanding of current medical conditions; weighing benefits/burdens of medical treatment options; making medical treatment decisions. Subjective Subjective/Interval History: Patient seen today to follow up on comfort/goals. S/p medical extubation 12/26. critical care reconsulted overnight/surgical services director pt with desaturation. [id number], O2 sat 89%. Started on bipap. Has remained on Bipap today. Wound care still following buttocks wounds. CBC stable. Chemistry stable. Was planned for transfer out of ICU to stepdown yesterday this has been held. S/p CT chest = 1. Postsurgical features of suspected previous left-sided lobectomy with volume loss and mediastinal shift to the left.2. Bulky left- sided pleural plaques with chronic appearing small to moderate sized loculated left pleural effusion.3. Dense airspace consolidation in the superior segment of the right lower lobe with patchy interstitial and groundglass opacities throughout the right lower lobe. Differential considerations include pneumonia and aspiration in the appropriate clinical setting.4. Trace right-sided pleural effusion with fluid extending into the major fissure. ; lungs are essentially unchanged no overall changes to tx plan per critical care. Repeat ABG planned for this afternoon. May wean/decrease bipap use depending on results , if worsens could require intubation. Patient seen in room, dual visit with Norbert Robert APRN. 1 daughter, present. Patient sleeping soundly does not stir to my exam. Daughter indicates he has been resting comfortably, feels breathing overall improved since episode early this morning. Family feels condition overall has improved since bipap and are hopeful will be able to come off this afternoon. Gently explore with them lung condition and that he will cont to have episodes of resp distress/complication. Daughter asks how he can have new pneumonia if he had been on approp abx, explore that he is debilitated, has severe lung disease/damage and that even if he were on cont antibiotics, all infections would NOT be avoided. Further explore that current lung status does not appear to be new process, but rather continuation/evolving of lung disease. Attempt to explore re-intubation status should his condition worsen, and that Bipap has limitation and is not fdc solution in irreversible lung diseases, they express that they are not" giving up on him" and dont feel he will need intubation. They do not indicate if they would proceed or not w intubation , just that they hope to avoid it. Gently explore my concern that his underlying condition remains the same and I am concerned will cont to experiencer resp complications. reports prev w area of edema/localized fluid left calf region- to current exam no collection/mass palpable, she cannot locate either. Exam benign no calf tenderness,erythema or other sx. all questions answered. they have palliative #. Appears Goals remain aggressive. Additional history per recent admission 11/13/17: Patient with known history CHF, diabetes, COPD, pulmonary fibrosis and asbestosis, presented to the ED after sustaining a fall in his home. He was lightheaded. Baseline 3-4 L nasal cannula requiring significant assistance with ADLs. Also with known history of LEFT thoracotomy and lobectomy/resection many years ago. Imaging finding of intertrochanteric fracture of proximal left hip. Also findings of osteopenia. Pulmonology evaluated patient and noted that he was cleared for surgery though may require BiPAP after. Suggested limited anesthesia secondary to moderately failure and/or pneumonia. Orthopedics consulted reviewed options family requested to proceed with operative management. During that admission noted during attending discussion with family daughter reports baseline mental status with some component of a dementia. Patient's primary language also reported to be a telemetry and though they requested no interpretation service be used during encounters because this would make him upset. During that hospital course patient did require ICU on BiPAP. Patient with some agitation. Anemia requiring transfusion postoperatively. Ongoing respiratory complication and concern for respiratory decompensation that could require mechanical ventilation and could result in difficulty weaning. Critical care notes discussion with family requested full CODE STATUS and continued aggressive management. Outpatient CT per Dr. Guerrier demonstrated pulmonary fibrosis and bronchiectasis. Patient did have a VQ scan during that admission with ventilation abnormally and perfume and of normal least left lower lobe pattern not typical of PE likely related to lobectomy. Avoiding CTA due to worsening renal function, family did not wish to assume risk. During that hospital course it is noted family requested transfer to [facility], critical care attempted to initiate that process. [facility] declined admission. Patient was also evaluated for LTAC, insurance apparently denied LTAC. Family appealed this and patient was later accepted by [facility]. He was discharged to [facility] 11/20/17 Objective Vital Signs: Vital Signs 01/06/18 16:00 01/06/18 20:00 01/06/18 20:49 Temperature 98.1 F 98.6 F Pulse Rate 114 H 115 H 114 H Respiratory Rate 21 26 H 24 Blood Pressure 133/62 137/63 Pulse Oximetry 97 100 01/06/18 20:52 01/07/18 00:00 01/07/18 03:50 Temperature 98.4 F Pulse Rate 112 H 119 H Respiratory Rate 29 H 30 H Blood Pressure 142/66 H Pulse Oximetry 99 96 01/07/18 04:00 01/07/18 05:20 01/07/18 07:00 Temperature 98.1 F 99 F Pulse Rate 119 H 115 H Respiratory Rate 35 H Blood Pressure 160/70 H 126/80 Pulse Oximetry 96 94 L 97 01/07/18 07:55 01/07/18 08:00 01/07/18 08:16 Temperature Pulse Rate 112 H 116 H Respiratory Rate Blood Pressure 128/66 Pulse Oximetry 100 100 96 01/07/18 09:00 01/07/18 09:10 01/07/18 10:00 Temperature Pulse Rate 111 H 114 H 114 H Respiratory Rate 27 H Blood Pressure Pulse Oximetry 88 L 89 L 01/07/18 11:00 01/07/18 11:32 01/07/18 11:48 Temperature Pulse Rate 109 H Respiratory Rate 25 H Blood Pressure Pulse Oximetry 96 96 96 01/07/18 12:00 01/07/18 12:20 01/07/18 13:00 Temperature 98.5 F Pulse Rate 114 H 112 H 111 H Respiratory Rate Blood Pressure 122/60 Pulse Oximetry 96 96 96 01/07/18 14:00 01/07/18 15:23 Temperature Pulse Rate 103 H 101 H Respiratory Rate 30 H 23 Blood Pressure Pulse Oximetry 97 Intake & Output 01/06/18 01/07/18 01/07/18 18:59 06:59 18:59 Intake Total 800 / 800 300 / 300 200 / 200 Output Total 900 / 900 Balance -100 / -100 300 / 300 200 / 200 Weight 74 kg Intake: IV 200 / 200 200 / 200 200 / 200 Zosyn 4.5 GM Premix 4.5 gm In 200 / 200 200 / 200 200 / 200 100 ml @ 200 mls/hr IV.SIG Q6H [facility] Rx#:[id number] Oral 600 / 600 100 / 100 Output: Urine Amount (Catheter) 900 / 900 Condom 900 / 900 Other: # Incontinent Voids 3 Date of Last Bowel Movement 01/04/18 01/06/18 # Bowel Movements 1 1 Physical Exam: CONSTITUTIONAL/GENERAL: This is a thin elderly male, lethargic on bipap TUBES/LINES/DRAINS: peripheral IVs to bilateral upper extremities. bipap mask SKIN: No jaundice, rashes, or lesions. Some areas of ecchymosis bilateral hands. Fading ecchymosis along left hip, upper leg. No wounds seen anteriorly- reports sacral/buttock wound . Skin warm/dry. EYES: Pupils 2.5mm/ reactive to light. No scleral icterus. No injection or drainage. Fundi not examined. ENT: Nose without bleeding or purulent drainage. Throat without visible erythema, exudates CARDIOVASCULAR: Regular rate and rhythm without murmur, rate 90s. No JVD. Peripheral pulses symmetric. reported slight scrotal edema improved did not examine RESPIRATORY/CHEST: Symmetric, unlabored respirations on bipap. mildly tachypneic 24. Left side w/ decreased air movement. Right w decreased air movement, faint rhonchi GASTROINTESTINAL: Abdomen soft, no tenderness. No palpable masses. Bowel sounds present. GENITOURINARY: Without palpable bladder distension. reported slight scrotal edema improved did not examine MUSCULOSKELETAL: Extremities without clubbing, cyanosis. No joint tenderness or effusion noted. No mottling or clubbing. NEUROLOGICAL:lethargic, does not stir or arouse for my exam. PSYCHIATRIC: calm /lethargic , no apparent anxiety. Diagnostic Tests Laboratory: Laboratory Results - last 72 hr 01/04/18 01/04/18 01/05/18 17:38 20:43 00:34 WBC RBC Hgb Hct MCV MCH MCHC RDW Plt Count MPV Prelim Diff (Auto) Neut % (Auto) Lymph % (Auto) [place] % (Auto) Eos % (Auto) Baso % (Auto) Neut # (Auto) Lymph # (Auto) [place] # (Auto) Eos # (Auto) Baso # (Auto) WBC Differential Diff Scan Differential Comment Platelet Estimate Platelet Morphology Basophilic Stippling Ovalocytes Puncture Site Patient Temperature O2 Saturation ABG pH ABG pCO2 ABG pO2 ABG HCO3 ABG O2 Content ABG Base Excess ABG Methemoglobin Krishna Test Hemoglobin Carboxyhemoglobin O2 Delivery Device Liter Flow Vent Setting Inspired O2 Critical Value Sodium Potassium Chloride Carbon Dioxide Anion Gap BUN Creatinine Estimated GFR POC Glucose 363 H 311 H 132 H Random Glucose Calcium Phosphorus Magnesium Ammonia 01/05/18 01/05/18 01/05/18 05:18 05:18 05:18 WBC 7.6 RBC 3.20 L Hgb 9.7 L Hct 29.4 L MCV 91.9 MCH 30.3 MCHC 32.9 RDW 15.0 Plt Count 98 L MPV 8.5 Prelim Diff (Auto) Neut % (Auto) Lymph % (Auto) [place] % (Auto) Eos % (Auto) Baso % (Auto) Neut # (Auto) Lymph # (Auto) [place] # (Auto) Eos # (Auto) Baso # (Auto) WBC Differential Diff Scan Differential Comment Platelet Estimate Platelet Morphology Basophilic Stippling Ovalocytes Puncture Site Patient Temperature O2 Saturation ABG pH ABG pCO2 ABG pO2 ABG HCO3 ABG O2 Content ABG Base Excess ABG Methemoglobin Krishna Test Hemoglobin Carboxyhemoglobin O2 Delivery Device Liter Flow Vent Setting Inspired O2 Critical Value Sodium 141 Potassium 3.5 Chloride 99 Carbon Dioxide 35.5 H Anion Gap 7 BUN 15 Creatinine 0.78 Estimated GFR Greater than 89 POC Glucose 85 Random Glucose 77 Calcium 8.3 L Phosphorus 3.1 Magnesium 2.0 Ammonia 01/05/18 01/05/18 01/05/18 08:28 11:47 17:19 WBC RBC Hgb Hct MCV MCH MCHC RDW Plt Count MPV Prelim Diff (Auto) Neut % (Auto) Lymph % (Auto) [place] % (Auto) Eos % (Auto) Baso % (Auto) Neut # (Auto) Lymph # (Auto) [place] # (Auto) Eos # (Auto) Baso # (Auto) WBC Differential Diff Scan Differential Comment Platelet Estimate Platelet Morphology Basophilic Stippling Ovalocytes Puncture Site Patient Temperature O2 Saturation ABG pH ABG pCO2 ABG pO2 ABG HCO3 ABG O2 Content ABG Base Excess ABG Methemoglobin Krishna Test Hemoglobin Carboxyhemoglobin O2 Delivery Device Liter Flow Vent Setting Inspired O2 Critical Value Sodium Potassium Chloride Carbon Dioxide Anion Gap BUN Creatinine Estimated GFR POC Glucose 166 H 209 H 286 H Random Glucose Calcium Phosphorus Magnesium Ammonia 01/05/18 01/06/18 01/06/18 23:36 05:57 05:57 WBC 7.2 RBC 3.04 L Hgb 9.2 L Hct 27.5 L MCV 90.4 MCH 30.3 MCHC 33.6 RDW 15.3 Plt Count 85 L MPV 8.2 Prelim Diff (Auto) Neut % (Auto) Lymph % (Auto) [place] % (Auto) Eos % (Auto) Baso % (Auto) Neut # (Auto) Lymph # (Auto) [place] # (Auto) Eos # (Auto) Baso # (Auto) WBC Differential Diff Scan Differential Comment Platelet Estimate Platelet Morphology Basophilic Stippling Ovalocytes Puncture Site Patient Temperature O2 Saturation ABG pH ABG pCO2 ABG pO2 ABG HCO3 ABG O2 Content ABG Base Excess ABG Methemoglobin Krishna Test Hemoglobin Carboxyhemoglobin O2 Delivery Device Liter Flow Vent Setting Inspired O2 Critical Value Sodium 142 Potassium 3.6 Chloride 99 Carbon Dioxide 35.9 H Anion Gap 7 BUN 14 Creatinine 0.76 Estimated GFR Greater than 89 POC Glucose 142 H Random Glucose 77 Calcium 7.9 L Phosphorus 3.1 Magnesium 2.2 Ammonia 01/06/18 01/06/18 01/06/18 12:00 19:22 23:50 WBC RBC Hgb Hct MCV MCH MCHC RDW Plt Count MPV Prelim Diff (Auto) Neut % (Auto) Lymph % (Auto) [place] % (Auto) Eos % (Auto) Baso % (Auto) Neut # (Auto) Lymph # (Auto) [place] # (Auto) Eos # (Auto) Baso # (Auto) WBC Differential Diff Scan Differential Comment Platelet Estimate Platelet Morphology Basophilic Stippling Ovalocytes Puncture Site Patient Temperature O2 Saturation ABG pH ABG pCO2 ABG pO2 ABG HCO3 ABG O2 Content ABG Base Excess ABG Methemoglobin Krishna Test Hemoglobin Carboxyhemoglobin O2 Delivery Device Liter Flow Vent Setting Inspired O2 Critical Value Sodium Potassium Chloride Carbon Dioxide Anion Gap BUN Creatinine Estimated GFR POC Glucose 270 H 404 H 153 H Random Glucose Calcium Phosphorus Magnesium Ammonia 01/07/18 01/07/18 01/07/18 03:09 03:30 03:30 WBC 7.8 RBC 3.36 L Hgb 10.2 L Hct 31.3 L MCV 92.9 MCH 30.3 MCHC 32.6 RDW 15.1 Plt Count 80 L MPV 8.2 Prelim Diff (Auto) Slide review pending Neut % (Auto) 84.0 H Lymph % (Auto) 8.4 L [place] % (Auto) 6.0 Eos % (Auto) 1.4 Baso % (Auto) 0.2 Neut # (Auto) 6.5 Lymph # (Auto) 0.7 L [place] # (Auto) 0.5 Eos # (Auto) 0.1 Baso # (Auto) 0.0 WBC Differential . Diff Scan Auto diff confirmed Differential Comment . Platelet Estimate Low L Platelet Morphology Normal Basophilic Stippling Faint H Ovalocytes 1+ H Puncture Site Patient Temperature O2 Saturation ABG pH ABG pCO2 ABG pO2 ABG HCO3 ABG O2 Content ABG Base Excess ABG Methemoglobin Krishna Test Hemoglobin Carboxyhemoglobin O2 Delivery Device Liter Flow Vent Setting Inspired O2 Critical Value Sodium Potassium Chloride Carbon Dioxide Anion Gap BUN Creatinine Estimated GFR POC Glucose 160 H Random Glucose Calcium Phosphorus Magnesium Ammonia 16 01/07/18 01/07/18 01/07/18 03:30 04:55 07:51 WBC RBC Hgb Hct MCV MCH MCHC RDW Plt Count MPV Prelim Diff (Auto) Neut % (Auto) Lymph % (Auto) [place] % (Auto) Eos % (Auto) Baso % (Auto) Neut # (Auto) Lymph # (Auto) [place] # (Auto) Eos # (Auto) Baso # (Auto) WBC Differential Diff Scan Differential Comment Platelet Estimate Platelet Morphology Basophilic Stippling Ovalocytes Puncture Site Left radial Left radial Patient Temperature 98.6 98.6 O2 Saturation 89 L* 95 ABG pH 7.30 L 7.34 L ABG pCO2 82 H* 72 H* ABG pO2 65 99 ABG HCO3 39 H 38 H ABG O2 Content 12.0 12.2 ABG Base Excess 12.2 H 11.8 H ABG Methemoglobin 1.2 1.4 Krishna Test Present Present Hemoglobin 9.5 L 9.1 L Carboxyhemoglobin 1.7 1.6 O2 Delivery Device Mask Bipap Liter Flow 6.00 Vent Setting See comments Inspired O2 60 Critical Value Yes Yes Sodium 141 Potassium 3.9 Chloride 95 L Carbon Dioxide 40.1 H Anion Gap 6 BUN 15 Creatinine 0.86 Estimated GFR 85 L POC Glucose Random Glucose 155 H Calcium 8.0 L Phosphorus Magnesium Ammonia 01/07/18 01/07/18 10:08 13:14 WBC RBC Hgb Hct MCV MCH MCHC RDW Plt Count MPV Prelim Diff (Auto) Neut % (Auto) Lymph % (Auto) [place] % (Auto) Eos % (Auto) Baso % (Auto) Neut # (Auto) Lymph # (Auto) [place] # (Auto) Eos # (Auto) Baso # (Auto) WBC Differential Diff Scan Differential Comment Platelet Estimate Platelet Morphology Basophilic Stippling Ovalocytes Puncture Site Patient Temperature O2 Saturation ABG pH ABG pCO2 ABG pO2 ABG HCO3 ABG O2 Content ABG Base Excess ABG Methemoglobin Krishna Test Hemoglobin Carboxyhemoglobin O2 Delivery Device Liter Flow Vent Setting Inspired O2 Critical Value Sodium Potassium Chloride Carbon Dioxide Anion Gap BUN Creatinine Estimated GFR POC Glucose 127 H 119 H Random Glucose Calcium Phosphorus Magnesium Ammonia Result Diagrams: 01/07/18 03:30 01/07/18 03:30 Imaging: Impressions Chest X-Ray 01/05/18 00:00 CONCLUSION: Stable chest with prominent lateral left-sided pleural opacity likely pleural effusion. Pleural-parenchymal density right lung is also stable. Chest CT 01/07/18 00:00 CONCLUSION: 1. Postsurgical features of suspected previous left-sided lobectomy with volume loss and mediastinal shift to the left. 2. Bulky left-sided pleural plaques with chronic appearing small to moderate sized loculated left pleural effusion. 3. Dense airspace consolidation in the superior segment of the right lower lobe with patchy interstitial and groundglass opacities throughout the right lower lobe. Differential considerations include pneumonia and aspiration in the appropriate clinical setting. 4. Trace right-sided pleural effusion with fluid extending into the major fissure. 5. Mild coronary artery calcifications. 6. Small amount of ascites in the visualized upper abdomen. Assessment and Plan - Disease Oriented Problem List (1) COPD (chronic obstructive pulmonary disease) (2) CHF (congestive heart failure) (3) Respiratory distress (4) Sepsis (5) HCAP (healthcare-associated pneumonia) (6) NAHED (acute kidney injury) (7) Pulmonary hypertension (8) S/P lobectomy of lung Pertinent Non-Medical Issues: Psychosocial: Retired. Lived in [place] most of his life-- originally from [place], then moved to [place], then to [place]. 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 Supported by , 4 daughters, other extended family. Spiritual:sikh, sister providing spiritual care Legal:Patient unable to participate due to clinical condition. There is some question of underlying cognitive deficits. His would be appropriate legal decision maker. She is making decisions supported by the rest of the family, daughters, sister are very involved in his care in decision-making Ethical issues impacting care:no ethical issues identified Important Contacts: Sunshine Davenport [phone] Prognosis: This 82-year-old patient is currently hospitalized due to severe sepsis, with respiratory failure. He has multiple chronic comorbidities. 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 He also has underlying COPD, pulmonary fibrosis, prior lobectomy. Overall poor prognosis for survival from current acute issues. Code Status: Full Code Plan: * Legal decision maker: Patient unable to participate due to clinical condition. There is some question of underlying cognitive deficits. His would be appropriate legal decision maker. She is making decisions supported by the rest of the family, daughters, sister are very involved in his care in decision-making * Goals: aggressive goals; pt/family want to continue ongoing aggressive treatments to improve his condition, including full code. Family hopeful he will eventually return home with them * CODE STATUS: Full code * SYMPTOMS: --Dyspnea-admitted for shortness of breath. Desaturation reported at home. Urgently intubated upon arrival to ICU. CXR indicative right lower lung probable pneumonia. initially On broad-spectrum antibiotics. Cultures negative. Tolerated medical extubation 12/25. abx d/cd tolerating nasal cannula , to medical unit. HALICAT 12/30,for desaturation, now back in ICU, has remained stable in ICU, again with de-sat, required bipap early am 01/07, now on Bipap. s/p CT chest. Remains on abx. Lungs unchanged. Due to recent pneumonia, intubation, debilitated status remains at risk for respiratory complications. --Pain-family endorses day to day at home patient did not endorse any pain. He is status post hip repair last month. Has been essentially bedbound since that time, potential sources would include recent hip surgery, as well as prolonged bedbound status and recent invasive procedures. Family endorses that pt is having some discomfort to his sacral region though they do not want him to have morphine because they feel that is too strong for him. Wound care following for wounds to buttocks. Ordered for airbed. * Palliative care will continue to follow during hospital course as condition evolves, to assist patient/decision-maker with understanding of medical conditions, weighing benefits/burdens of treatment options, for clarification of goals of treatment. Additionally will assist with any symptoms of palliative concern Attestation Attestation: To help prompt me to consider important information that might be impacting today's encounter and assessment, information from prior notes written by myself or my colleagues may have been "brought forward" into today's note. My signature on this note, however, is an attestation that I personally performed the exam, history, and/or decision-making noted today, and, unless otherwise indicated, the interactions with patient, family, and staff as well as the review of records all occurred today. I also attest that the listed assessment and stated plan reflect my best clinical judgment today based on the combination of historical information, prior notes, and today's exam/ interactions. When time spent is documented, it refers only to time spent today by the signer, or if indicated, combined time spent today by collaborating physician/nurse practitioner.
[2018-01-07 17:01] LABS: ABG Base Excess 12.3 mmol/L (-2-2); ABG PCO2 76 mmHg (38-42); ABG PO2 108 mmHG (61-120)
--- NOTE | 2018-01-07 17:38 | P.PN ---
Subjective Interval history: He is now on a BIPAP set up. CT chest shows increased infiltrates. No Fever. Physical Exam Vital signs: Vital Signs 01/06/18 20:00 01/06/18 20:49 01/06/18 20:52 Temperature 98.6 F Pulse Rate 115 H 114 H Respiratory Rate 26 H 24 Blood Pressure 137/63 Pulse Oximetry 100 99 01/07/18 00:00 01/07/18 03:50 01/07/18 04:00 Temperature 98.4 F 98.1 F Pulse Rate 112 H 119 H 119 H Respiratory Rate 29 H 30 H 35 H Blood Pressure 142/66 H 160/70 H Pulse Oximetry 96 96 01/07/18 05:20 01/07/18 07:00 01/07/18 07:55 Temperature 99 F Pulse Rate 115 H Respiratory Rate Blood Pressure 126/80 Pulse Oximetry 94 L 97 100 01/07/18 08:00 01/07/18 08:16 01/07/18 09:00 Temperature Pulse Rate 96 H 116 H 111 H Respiratory Rate Blood Pressure 128/66 Pulse Oximetry 100 96 88 L 01/07/18 09:10 01/07/18 10:00 01/07/18 11:00 Temperature Pulse Rate 114 H 114 H 109 H Respiratory Rate 27 H 25 H Blood Pressure Pulse Oximetry 89 L 96 01/07/18 11:32 01/07/18 11:48 01/07/18 12:00 Temperature 98.5 F Pulse Rate 99 H Respiratory Rate Blood Pressure Pulse Oximetry 96 96 96 01/07/18 12:20 01/07/18 13:00 01/07/18 14:00 Temperature Pulse Rate 112 H 111 H 103 H Respiratory Rate 30 H Blood Pressure 122/60 Pulse Oximetry 96 96 97 01/07/18 15:00 01/07/18 15:23 01/07/18 16:00 Temperature Pulse Rate 104 H 101 H 101 H Respiratory Rate 23 Blood Pressure Pulse Oximetry 92 L 94 L 01/07/18 16:27 Temperature Pulse Rate 102 H Respiratory Rate Blood Pressure 111/56 L Pulse Oximetry 94 L Intake & Output 01/06/18 01/07/18 01/07/18 18:59 06:59 18:59 Intake Total 800 / 800 300 / 300 200 / 200 Output Total 900 / 900 Balance -100 / -100 300 / 300 200 / 200 Weight 74 kg Intake: IV 200 / 200 200 / 200 200 / 200 Zosyn 4.5 GM Premix 4.5 gm In 200 / 200 200 / 200 200 / 200 100 ml @ 200 mls/hr IV.SIG Q6H NOAH Rx#:[id number] Oral 600 / 600 100 / 100 Output: Urine Amount (Catheter) 900 / 900 Condom 900 / 900 Other: # Incontinent Voids 3 Date of Last Bowel Movement 01/04/18 01/06/18 # Bowel Movements 1 1 Narrative: General: Awake and in mild distress. On a Mask.. HEENT Clear throat. no JVD, or adenopathy. Cardiovascular S1-S2 audible Respiratory bibasilar crackles, severe decreased breath sounds bilateral. Abdomen: soft, nontender, positive bowel sounds. Extremities: 2+ pitting edema bilateral lower extremities up to the thighs. Well-healed scar on his left hip status post IT nailing. Neuro: patient does move all 4 extremities with 1 + reflexes. - Urinary Catheter Management Straight Cath placed during this visit: yes, but has since been removed by the nurse Reason for continuing: Not indwelling catheter Insertion date: 12/23/17 Insertion time: 01:00 Removal date: 12/22/17 Removal time: 01:00 Condom Cath placed during this visit: no Results - Labs CBC & Chem 7: 01/07/18 03:30 01/07/18 03:30 Laboratory Results - last 24 hr 01/06/18 01/06/18 01/07/18 19:22 23:50 03:09 WBC RBC Hgb Hct MCV MCH MCHC RDW Plt Count MPV Prelim Diff (Auto) Neut % (Auto) Lymph % (Auto) [place] % (Auto) Eos % (Auto) Baso % (Auto) Neut # (Auto) Lymph # (Auto) [place] # (Auto) Eos # (Auto) Baso # (Auto) WBC Differential Diff Scan Differential Comment Platelet Estimate Platelet Morphology Basophilic Stippling Ovalocytes Puncture Site Patient Temperature O2 Saturation ABG pH ABG pCO2 ABG pO2 ABG HCO3 ABG O2 Content ABG Base Excess ABG Methemoglobin Krishna Test Hemoglobin Carboxyhemoglobin O2 Delivery Device Liter Flow Vent Setting Inspired O2 Critical Value Sodium Potassium Chloride Carbon Dioxide Anion Gap BUN Creatinine Estimated GFR POC Glucose 404 H 153 H 160 H Random Glucose Calcium Ammonia 01/07/18 01/07/18 01/07/18 03:30 03:30 03:30 WBC 7.8 RBC 3.36 L Hgb 10.2 L Hct 31.3 L MCV 92.9 MCH 30.3 MCHC 32.6 RDW 15.1 Plt Count 80 L MPV 8.2 Prelim Diff (Auto) Slide review pending Neut % (Auto) 84.0 H Lymph % (Auto) 8.4 L [place] % (Auto) 6.0 Eos % (Auto) 1.4 Baso % (Auto) 0.2 Neut # (Auto) 6.5 Lymph # (Auto) 0.7 L [place] # (Auto) 0.5 Eos # (Auto) 0.1 Baso # (Auto) 0.0 WBC Differential . Diff Scan Auto diff confirmed Differential Comment . Platelet Estimate Low L Platelet Morphology Normal Basophilic Stippling Faint H Ovalocytes 1+ H Puncture Site Patient Temperature O2 Saturation ABG pH ABG pCO2 ABG pO2 ABG HCO3 ABG O2 Content ABG Base Excess ABG Methemoglobin Krishna Test Hemoglobin Carboxyhemoglobin O2 Delivery Device Liter Flow Vent Setting Inspired O2 Critical Value Sodium 141 Potassium 3.9 Chloride 95 L Carbon Dioxide 40.1 H Anion Gap 6 BUN 15 Creatinine 0.86 Estimated GFR 85 L POC Glucose Random Glucose 155 H Calcium 8.0 L Ammonia 16 01/07/18 01/07/18 01/07/18 04:55 07:51 10:08 WBC RBC Hgb Hct MCV MCH MCHC RDW Plt Count MPV Prelim Diff (Auto) Neut % (Auto) Lymph % (Auto) [place] % (Auto) Eos % (Auto) Baso % (Auto) Neut # (Auto) Lymph # (Auto) [place] # (Auto) Eos # (Auto) Baso # (Auto) WBC Differential Diff Scan Differential Comment Platelet Estimate Platelet Morphology Basophilic Stippling Ovalocytes Puncture Site Left radial Left radial Patient Temperature 98.6 98.6 O2 Saturation 89 L* 95 ABG pH 7.30 L 7.34 L ABG pCO2 82 H* 72 H* ABG pO2 65 99 ABG HCO3 39 H 38 H ABG O2 Content 12.0 12.2 ABG Base Excess 12.2 H 11.8 H ABG Methemoglobin 1.2 1.4 Krishna Test Present Present Hemoglobin 9.5 L 9.1 L Carboxyhemoglobin 1.7 1.6 O2 Delivery Device Mask Bipap Liter Flow 6.00 Vent Setting See comments Inspired O2 60 Critical Value Yes Yes Sodium Potassium Chloride Carbon Dioxide Anion Gap BUN Creatinine Estimated GFR POC Glucose 127 H Random Glucose Calcium Ammonia 01/07/18 01/07/18 13:14 16:50 WBC RBC Hgb Hct MCV MCH MCHC RDW Plt Count MPV Prelim Diff (Auto) Neut % (Auto) Lymph % (Auto) [place] % (Auto) Eos % (Auto) Baso % (Auto) Neut # (Auto) Lymph # (Auto) [place] # (Auto) Eos # (Auto) Baso # (Auto) WBC Differential Diff Scan Differential Comment Platelet Estimate Platelet Morphology Basophilic Stippling Ovalocytes Puncture Site Right radial Patient Temperature 98.6 O2 Saturation 95 ABG pH 7.32 L ABG pCO2 76 H* ABG pO2 108 ABG HCO3 39 H ABG O2 Content 12.3 ABG Base Excess 12.3 H ABG Methemoglobin 1.5 Krishna Test Present Hemoglobin 9.0 L Carboxyhemoglobin 1.6 O2 Delivery Device Bipap Liter Flow Vent Setting [id number] Inspired O2 50 Critical Value Yes Sodium Potassium Chloride Carbon Dioxide Anion Gap BUN Creatinine Estimated GFR POC Glucose 119 H Random Glucose Calcium Ammonia - Imaging Impressions Chest CT 01/07/18 00:00 CONCLUSION: 1. Postsurgical features of suspected previous left-sided lobectomy with volume loss and mediastinal shift to the left. 2. Bulky left-sided pleural plaques with chronic appearing small to moderate sized loculated left pleural effusion. 3. Dense airspace consolidation in the superior segment of the right lower lobe with patchy interstitial and groundglass opacities throughout the right lower lobe. Differential considerations include pneumonia and aspiration in the appropriate clinical setting. 4. Trace right-sided pleural effusion with fluid extending into the major fissure. 5. Mild coronary artery calcifications. 6. Small amount of ascites in the visualized upper abdomen. Assessment and Plan - Assessment (1) Respiratory failure requiring intubation Code(s): J96.90 - Respiratory failure, unspecified, unspecified whether with hypoxia or hypercapnia Status: Acute (2) Pneumonia Code(s): J18.9 - Pneumonia, unspecified organism Status: Acute (3) CHF (congestive heart failure), NYHA class II Code(s): I50.9 - Heart failure, unspecified Status: Acute (4) CHF (congestive heart failure) Code(s): I50.9 - Heart failure, unspecified Status: Acute (5) Respiratory abnormalities Code(s): J98.9 - Respiratory disorder, unspecified Status: Acute (6) Emphysema of lung Code(s): J43.9 - Emphysema, unspecified Status: Acute (7) Borderline diabetes mellitus Code(s): R73.03 - Prediabetes Status: Acute (8) Fracture, intertrochanteric, left femur Code(s): S72.142A - Displaced intertrochanteric fracture of left femur, initial encounter for closed fracture Status: Acute (9) Nutrition, metabolism, and development symptoms Code(s): R63.8 - Other symptoms and signs concerning food and fluid intake Status: Acute - Plan RECOMMENDATIONS: 1. BiPAP 15/5 CM , fio2 50 % 2. Bronchodilators in the form of DuoNeb q.6 plus q.2 p.r.n.. 3. D/W family here. 4. Solumedrol 40 mg Q6H 5. Continue with Lasix 40 mg daily. 6. Cont antibiotics per ID. 7.,BMP CBC CT chest 8. ABG on BiPAP and may Need intubation.
--- NOTE | 2018-01-07 17:40 | P.PNID ---
Subjective Remarks: events noted Pt developped overnight resp distress and is now on BIPAP no fever not expectorating Antibiotics: zosyn Allergies/Adverse Reactions: Allergies No Known Allergies Allergy (Verified 12/19/17 21:39) Objective Vital Signs 01/06/18 20:00 01/06/18 20:49 01/06/18 20:52 Temperature 98.6 F Pulse Rate 115 H 114 H Respiratory Rate 26 H 24 Blood Pressure 137/63 Pulse Oximetry 100 99 01/07/18 00:00 01/07/18 03:50 01/07/18 04:00 Temperature 98.4 F 98.1 F Pulse Rate 112 H 119 H 119 H Respiratory Rate 29 H 30 H 35 H Blood Pressure 142/66 H 160/70 H Pulse Oximetry 96 96 01/07/18 05:20 01/07/18 07:00 01/07/18 07:55 Temperature 99 F Pulse Rate 115 H Respiratory Rate Blood Pressure 126/80 Pulse Oximetry 94 L 97 100 01/07/18 08:00 01/07/18 08:16 01/07/18 09:00 Temperature Pulse Rate 96 H 116 H 111 H Respiratory Rate Blood Pressure 128/66 Pulse Oximetry 100 96 88 L 01/07/18 09:10 01/07/18 10:00 01/07/18 11:00 Temperature Pulse Rate 114 H 114 H 109 H Respiratory Rate 27 H 25 H Blood Pressure Pulse Oximetry 89 L 96 01/07/18 11:32 01/07/18 11:48 01/07/18 12:00 Temperature 98.5 F Pulse Rate 99 H Respiratory Rate Blood Pressure Pulse Oximetry 96 96 96 01/07/18 12:20 01/07/18 13:00 01/07/18 14:00 Temperature Pulse Rate 112 H 111 H 103 H Respiratory Rate 30 H Blood Pressure 122/60 Pulse Oximetry 96 96 97 01/07/18 15:00 01/07/18 15:23 01/07/18 16:00 Temperature Pulse Rate 104 H 101 H 101 H Respiratory Rate 23 Blood Pressure Pulse Oximetry 92 L 94 L 01/07/18 16:27 Temperature Pulse Rate 102 H Respiratory Rate Blood Pressure 111/56 L Pulse Oximetry 94 L Intake & Output 01/06/18 01/07/18 01/07/18 18:59 06:59 18:59 Intake Total 800 / 800 300 / 300 200 / 200 Output Total 900 / 900 Balance -100 / -100 300 / 300 200 / 200 Weight 74 kg Intake: IV 200 / 200 200 / 200 200 / 200 Zosyn 4.5 GM Premix 4.5 gm In 200 / 200 200 / 200 200 / 200 100 ml @ 200 mls/hr IV.SIG Q6H NOAH Rx#:[id number] Oral 600 / 600 100 / 100 Output: Urine Amount (Catheter) 900 / 900 Condom 900 / 900 Other: # Incontinent Voids 3 Date of Last Bowel Movement 01/04/18 01/06/18 # Bowel Movements 1 1 Lab - Hematology Results 01/06/18 01/07/18 05:57 03:30 WBC 7.2 7.8 RBC 3.04 L 3.36 L Hgb 9.2 L 10.2 L Hct 27.5 L 31.3 L MCV 90.4 92.9 MCH 30.3 30.3 MCHC 33.6 32.6 RDW 15.3 15.1 Plt Count 85 L 80 L MPV 8.2 8.2 Prelim Diff (Auto) Slide review pending Neut % (Auto) 84.0 H Lymph % (Auto) 8.4 L [place] % (Auto) 6.0 Eos % (Auto) 1.4 Baso % (Auto) 0.2 Neut # (Auto) 6.5 Lymph # (Auto) 0.7 L [place] # (Auto) 0.5 Eos # (Auto) 0.1 Baso # (Auto) 0.0 WBC Differential . Diff Scan Auto diff confirmed Differential Comment . Platelet Estimate Low L Platelet Morphology Normal Basophilic Stippling Faint H Ovalocytes 1+ H Lab - Chemistry Results 01/05/18 01/06/18 01/06/18 23:36 05:57 12:00 Sodium 142 Potassium 3.6 Chloride 99 Carbon Dioxide 35.9 H Anion Gap 7 BUN 14 Creatinine 0.76 Estimated GFR Greater than 89 POC Glucose 142 H 270 H Random Glucose 77 Calcium 7.9 L Phosphorus 3.1 Magnesium 2.2 Ammonia 01/06/18 01/06/18 01/07/18 19:22 23:50 03:09 Sodium Potassium Chloride Carbon Dioxide Anion Gap BUN Creatinine Estimated GFR POC Glucose 404 H 153 H 160 H Random Glucose Calcium Phosphorus Magnesium Ammonia 01/07/18 01/07/18 01/07/18 03:30 03:30 10:08 Sodium 141 Potassium 3.9 Chloride 95 L Carbon Dioxide 40.1 H Anion Gap 6 BUN 15 Creatinine 0.86 Estimated GFR 85 L POC Glucose 127 H Random Glucose 155 H Calcium 8.0 L Phosphorus Magnesium Ammonia 16 01/07/18 13:14 Sodium Potassium Chloride Carbon Dioxide Anion Gap BUN Creatinine Estimated GFR POC Glucose 119 H Random Glucose Calcium Phosphorus Magnesium Ammonia Imaging: ITS Impressions Abdomen X-Ray 01/01/18 00:00 CONCLUSION: 1. No bowel obstruction, ileus or perforation. 2. Degenerative changes and scoliosis of the lumbar spine. Chest X-Ray 01/05/18 00:00 CONCLUSION: Stable chest with prominent lateral left-sided pleural opacity likely pleural effusion. Pleural-parenchymal density right lung is also stable. Chest CT 01/07/18 00:00 CONCLUSION: 1. Postsurgical features of suspected previous left-sided lobectomy with volume loss and mediastinal shift to the left. 2. Bulky left-sided pleural plaques with chronic appearing small to moderate sized loculated left pleural effusion. 3. Dense airspace consolidation in the superior segment of the right lower lobe with patchy interstitial and groundglass opacities throughout the right lower lobe. Differential considerations include pneumonia and aspiration in the appropriate clinical setting. 4. Trace right-sided pleural effusion with fluid extending into the major fissure. 5. Mild coronary artery calcifications. 6. Small amount of ascites in the visualized upper abdomen. Physical Exam: GENERAL: mild moderate distress with RR 25-30 on part face BIPAP mask SKIN: Warm and dry. NO rash EYES: Pupils equal and round. No scleral icterus. No injection or drainage. ENT: No nasal bleeding or discharge. Mucous membranes pink and moist. NECK: Trachea midline. CARDIOVASCULAR: Regular rate and rhythm. RESPIRATORY: No accessory muscle use. Rhonchi to auscultation. Breath sounds diminished bilaterally. , especially on L base GASTROINTESTINAL: Abdomen soft, non-tender, nondistended. Hepatic and splenic margins not palpable. MUSCULOSKELETAL: Extremities without clubbing, cyanosis, or edema. No obvious deformities. NEUROLOGICAL: Quite lethargic . No obvious cranial nerve deficits. Follows commands PSYCHIATRIC: unab;e t o assess Assessment and Plan - Plan COPD exacerbation Multiple pumonary pathologies (COPD, asbestosis) RLL PNA Dense airspace consolidation in the superior segment of the right lower lobe on CT PLAN: sputum culture (if feasible) will switch zosyn to meropenem, add vancomycin P clx case dw: RN, family
[2018-01-07] MEDS ORDERED: Vancomycin Consult Pharmacy OTHER PRN (17:41)
[2018-01-07 20:28] LABS: ABG Base Excess 11.1 mmol/L (-2-2); ABG PCO2 71 mmHg (38-42); ABG PO2 108 mmHG (61-120)
[2018-01-07] MEDS: Vancomycin Inj 1,250 MG in Sodium Chlor 0.9% Inj 250 ML IV.SIG SCH (21:44)
--- NOTE | 2018-01-08 02:06 | P.DIET ---
Nutritional Evaluation Type of nutrition evaluation: follow-up Nutrition consult regarding: Tube Feeding Nutrition screening: MDC (Wound) Subjective Oral Diet Tolerance Assessment Indicates: Edentulous Subjective Comments: Pt does not wear dentures at home Objective - Diagnosis Sepsis, PNA, COPD Exacerbation, CHF - Objective % IBW: 116 (IBW = 118#) Body Weight Used for Calculations: Actual (62 kg) Energy Needs - Lower Range (kCal/kg): 25 Energy Needs - Upper Range (kCal/kg): 30 Lower Limit kCal/kg (kCals): 1,550 Upper Limit kCal/kg (kCals): 1,860 Lower Limit Protein Factor (Grams per Kg): 1.0 Upper Limit Protein Factor (Grams per Kg): 1.5 Lower Protein Needs (Protein): 62 Upper Protein Needs (Protein): 93 Dietitian Reviewed in Medical Record: Current diet, Curent medications, Intake & Output, Labs, Medical history, Tube feeding Diet Order: Soft thin liquids Oral Diet Intake Amount: Good 75-90% Speech Therapy Recommendations: Yes (Soft thin liquids) Objective Comments: 12/26 extubated Assessment [place] [facility] [place]. [place] care noted, two wounds noted to right buttock, largest now measuring 2cm x 2.3cm x <0.2cm of pink and white moist tissue with no active drainage and no odor. Periwound is noted with dry flaking previously denuded skin. Smaller wound to right buttock now measures 1cm x 1.8cm x <0.1cm of dull red tissue with no active drainage and no odor. Will send Patrick BID. Monitor wound, PO intake and labs. Recommendations: 1. Will send Patrick BID. 2. Monitor wound, PO intake and labs. Dietitian to Monitor: Lab values, Intake & Output, Tube feeding tolerance, Weight change, Medical course
[2018-01-08] MEDS: MethylPREDNISolone Sod Succinate Inj 40 MG/ML Vial IV.PUSH SCH ×4 (04:11→23:51)
[2018-01-08] MEDS: Oral Hygiene Kit OROPHARYNG SCH ×4 (04:11→23:51)
[2018-01-08 04:37] LABS: Baso % (Auto) 0.1 % (0.0-2.0); Hematocrit 29.6 % (39.0-51.0); Hemoglobin 9.5 gm/dL (13.0-17.0); Lymph # (Auto) 0.4 th/mm3 (1.0-4.8); Lymph % (Auto) 5.9 % (9.0-44.0); Mean Corpuscular HGB Conc 32.1 % (32.0-36.0); Mean Corpuscular Volume 93.4 fL (80.0-100.0); Mean Platelet Volume 8.6 fL (7.0-11.0); Mono # (Auto) 0.2 th/mm3 (0.0-0.9); Mono % (Auto) 2.5 % (0.0-8.0); Neut # (Auto) 5.5 th/mm3 (1.8-7.7); Neut % (Auto) 91.5 % (16.0-70.0); Platelet Count 68 th/mm3 (150-450); Red Blood Count 3.17 mil/mm3 (4.50-5.90); White Blood Count 6.1 th/mm3 (4.0-11.0)
[2018-01-08 04:56] LABS: Alanine Aminotransferase 45 U/L (12-78); Albumin 2.1 g/dL (3.4-5.0); Anion Gap 5 meq/L (5-15); Aspartate Aminotransferase 24 U/L (15-37); Blood Urea Nitrogen 20 mg/dL (7-18); Calcium 7.7 mg/dL (8.5-10.1); Carbon Dioxide 39.9 meq/L (21.0-32.0); Chloride 99 meq/L (98-107); Glomerular Filtration Rate 81 mL/min (>89); Glucose,Random 117 mg/dL (74-106); Magnesium 2.3 mg/dL (1.5-2.5); Potassium 4.1 meq/L (3.5-5.1); Sodium 144 meq/L (136-145)
[2018-01-08 05:03] LABS: Alkaline Phosphatase 182 U/L (45-117); Phosphorus 4.9 mg/dL (2.5-4.9); Total Protein 5.8 g/dL (6.4-8.2)
[2018-01-08 05:39] LABS: ABG Base Excess 10.1 mmol/L (-2-2); ABG PCO2 91 mmHg (38-42); ABG PO2 178 mmHG (61-120)
[2018-01-08] MEDS: Insulin NovoLIN Regular Correctional Sugar Inj SQ SCH ×4 (06:15→23:51)
[2018-01-08] MEDS ORDERED: Etomidate Inj 40 MG/20 ML Vial IV.PUSH ONE (06:30)
[2018-01-08] MEDS ORDERED: Propofol Inj 500 MG/50 ML Vial ONE (06:31)
[2018-01-08 06:33] LABS: Platelet Morphology Normal (Normal)
--- NOTE | 2018-01-08 07:29 | XR ---
EXAM DATE: 01/08/2018 6:58 AM EDT AGE/SEX: 82 years / Male INDICATIONS: S/P ET tube placement. CLINICAL DATA: This is the patient's initial encounter. Patient reports that signs and symptoms have been present for 1 day and indicates a pain score of Nonresponsive. MEDICAL/SURGICAL HISTORY: Chronic obstructive pulmonary disease. Diabetes mellitus type II. S epsis. Congestive Heart Failure. Lobectomy. COMPARISON: [facility] [place], CHEST 1V SINGLE AP, 01/05/2018. . FINDINGS: ET tube nasogastric tube in good position. Moderate volume loss in the left lung persist with either pleural effusion or pleural thickening on the left. Moderate interstitial edema remains. There is no pneumothorax. CONCLUSION: Stable chest following ablation. Moderate either pleural thickening or pleural fluid remains on the r ight. Moderate interstitial edema persist. Electronically signed by: Tj Christian MD 01/08/2018 7:28 AM EDT
--- NOTE | 2018-01-08 08:44 | P.PNCC ---
Subjective Subjective Remarks/Hospital Course: 82-year-old male with past medical history of COPD and CHF presents for an evaluation of shortness of breath and hypoxemia worsening over past few days. The nebulizer treatments helped initially however today there were not helpful. EMS reports on scene the O2 sat was in the 80s. He received high flow oxygen and nebulized albuterol in route here. His blood pressure initially in the emergency department was 200/100 however trended down to about 160/90. BiPAP was started in the emergency department with improvement in his O2 sat that has trended towards the high 90s with 100% FiO2 on BiPAP. Shortly after transfer to ICU the patient continues to to be more hypoxemic and restless requiring endotracheal intubation and mechanical ventilation. 12/20: intubated and sedated. still hypercarbic with [id number] respiratory acidosis. family unhappy that patient was intubated: they insisted last night on being a Full Code, but apparently the daughter required that she be notified of exactly what SpO2 the patient was at, and it had to reach a certain low level before she would be ok with intubation. Per overnight records , patient presented with severe respiratory distress, and family reports that EMS stated patient "wouldn't make it all the way to [facility]" due to his pulmonary instability. This morning, hypoxia is somewhat improved. remains on broad spectrum antibiotics. I explained to family that this is likely a new pneumonia causing respiratory failure. I also explained that after recent hip fracture and recent prolonged hospitalization, his baseline end-stage lung disease and NYHA Class IV symptoms are likely to worsen, and this may be worsening of his overall end-stage disease processes. Family continues to state that our facility caused his lung failure during the prior hospitalization. They are also concerned about his poor peripheral perfusion and oliguria, which concerns me also: I explained that his heart failure could not tolerate significant amount of iv fluids, and we have already given him 1500mL over the last 12 hours, but they have insisted on additional iv fluids. I explained he had severe sepsis and the mortality associated with this. Daughter continues to remind me that her father "is coming home with her and getting better" as she has stated multiple times in the past. 12/21: no improvements. remains intubated. clinically becoming volume overloaded - will be forced to start diuresis. 12/22: mental status slightly improved. still failing weaning attempts. 12/23: Afebrile. Currently on PSV trial 15/7 at 45%. Discussed with and daughter at bedside. Chest x-ray revealed ET tube at [place]. Retracted 1 cm. Tolerating tube feeds with family requested 40 cc an hour. Subjective: 12/24: Afebrile. Currently CPAP trial FiO2 at 45%. Tolerating tube feeds if family requested 40 cc an hour. Receiving morphine 1-2 mg every 4 hours as needed pain. 12/25 No events overnight remains intubated off sedation. Tolerated CPAP for several hrs yesterday. Afebrile. 12/26 No events overnight. Patient tolerated CPAP for most of day yesterday. Awake and alert follows commands, on no sedation. 12/27 Patient was extubated yesterday on 4L oxygen. Awake. Afebrile. 12/28 No events overnight. Remains on 4L oxygen. Awake and alert. 12/30: RECONSULT NOTE: reconsulted as rapid response for hypoxia. per the family , patient had desaturation episode to the 60s, placed on NRB. family insisted on transfer back to ICU. when I saw patient on arrival to ICU, patient spo2 99% on NRB. pao2 on NRB was 150. patient is well-known to me with baseline spo2 82- 86% on 5L o2 by NC at home. family states he has another pneumonia. on my review of CXR and lab evidence, unclear if this is new pneumonia vs. old chronic lung disease. patient denies sob or new symptoms. 12/31: no changes. remains on simple mask at 6LPM. not in distress. family does not want to leave ICU and wants to continue ICU care for the remainder of the hospitalization. long discussion about needing to de-escalate level of care prior to hospital discharge. 01/07 Reconsult for Resp. distress. Patient was placed on BIPAP with 60% FIO2. ABG this morning showed some improvements in his resp acidosis with PH:7.34, CO2 72 from 82. CXR from 16/[address] chest today. 01/08 Patient was intubated this morning for worsening resp acidosis. CT chest yesterday showed pneumonia/aspiration. On Diprivan for sedation. Afebrile. Objective Vital Signs / I&O: Vital Signs 01/07/18 09:00 01/07/18 09:10 01/07/18 10:00 Temperature Pulse Rate 111 H 114 H 114 H Respiratory Rate 27 H Blood Pressure Pulse Oximetry 88 L 89 L 01/07/18 11:00 01/07/18 11:32 01/07/18 11:48 Temperature Pulse Rate 109 H Respiratory Rate 25 H Blood Pressure Pulse Oximetry 96 96 96 01/07/18 12:00 01/07/18 12:20 01/07/18 13:00 Temperature 98.5 F Pulse Rate 99 H 112 H 111 H Respiratory Rate Blood Pressure 122/60 Pulse Oximetry 96 96 96 01/07/18 14:00 01/07/18 15:00 01/07/18 15:23 Temperature Pulse Rate 103 H 104 H 101 H Respiratory Rate 30 H 23 Blood Pressure Pulse Oximetry 97 92 L 01/07/18 16:00 01/07/18 16:27 01/07/18 18:04 Temperature Pulse Rate 101 H 102 H Respiratory Rate Blood Pressure 111/56 L Pulse Oximetry 94 L 94 L 95 01/07/18 20:00 01/07/18 20:33 01/07/18 20:55 Temperature Pulse Rate 97 H 96 H Respiratory Rate 21 13 Blood Pressure 135/64 Pulse Oximetry 95 95 01/08/18 00:00 01/08/18 00:15 01/08/18 04:00 Temperature 98.2 F 98.5 F Pulse Rate 100 H 90 Respiratory Rate 28 H 19 Blood Pressure 101/60 135/63 Pulse Oximetry 98 97 98 01/08/18 05:00 01/08/18 06:40 01/08/18 07:30 Temperature Pulse Rate 90 79 Respiratory Rate 20 18 Blood Pressure Pulse Oximetry 98 97 01/08/18 07:51 Temperature Pulse Rate 72 Respiratory Rate 17 Blood Pressure Pulse Oximetry 98 Intake & Output 01/07/18 01/08/18 01/08/18 18:59 06:59 18:59 Intake Total 300 / 300 100 / 100 362.5 / 362.5 Output Total 550 / 550 Balance -250 / -250 100 / 100 362.5 / 362.5 Weight 74 kg Intake: IV 300 / 300 100 / 100 362.5 / 362.5 Merrem Inj 1,000 MG In NS Inj 100 / 100 100 / 100 100 ML @ 200 mls/hr IV.SIG Q8H NOAH Rx#:[id number] Zosyn 4.5 GM Premix 4.5 gm In 300 / 300 100 ml @ 200 mls/hr IV.SIG Q6H NOAH Rx#:[id number] Vancomycin Inj 1,250 MG In NS 262.5 / 262.5 Inj 250 ML @ 250 mls/hr IV.SIG Q24H NOAH Rx#:[id number] Oral 0 / 0 Output: Urine Amount (Catheter) 550 / 550 Condom 550 / 550 Other: # Incontinent Voids 3 # Bowel Movements 0 Result Diagrams: 01/08/18 04:12 01/08/18 04:12 Other Results: Laboratory Results - last 12 hr 01/07/18 01/08/18 01/08/18 23:08 04:12 04:12 WBC 6.1 RBC 3.17 L Hgb 9.5 L Hct 29.6 L MCV 93.4 MCH 30.0 MCHC 32.1 RDW 15.0 Plt Count 68 L MPV 8.6 Prelim Diff (Auto) Slide review pending Neut % (Auto) 91.5 H Lymph % (Auto) 5.9 L Ida % (Auto) 2.5 Eos % (Auto) 0.0 Baso % (Auto) 0.1 Neut # (Auto) 5.5 Lymph # (Auto) 0.4 L Ida # (Auto) 0.2 Eos # (Auto) 0.0 Baso # (Auto) 0.0 WBC Differential . Diff Scan Auto diff confirmed Differential Comment . Platelet Estimate Low L Platelet Morphology Normal Puncture Site Patient Temperature O2 Saturation ABG pH ABG pCO2 ABG pO2 ABG HCO3 ABG O2 Content ABG Base Excess ABG Methemoglobin Krihsna Test Hemoglobin Carboxyhemoglobin O2 Delivery Device Vent Setting Inspired O2 Critical Value Sodium 144 Potassium 4.1 Chloride 99 Carbon Dioxide 39.9 H Anion Gap 5 BUN 20 H Creatinine 0.90 Estimated GFR 81 L POC Glucose 144 H Random Glucose 117 H Calcium 7.7 L Phosphorus 4.9 D Magnesium 2.3 Total Bilirubin 0.4 AST 24 ALT 45 Alkaline Phosphatase 182 H Total Protein 5.8 L Albumin 2.1 L 01/08/18 05:20 WBC RBC Hgb Hct MCV MCH MCHC RDW Plt Count MPV Prelim Diff (Auto) Neut % (Auto) Lymph % (Auto) Ida % (Auto) Eos % (Auto) Baso % (Auto) Neut # (Auto) Lymph # (Auto) Ida # (Auto) Eos # (Auto) Baso # (Auto) WBC Differential Diff Scan Differential Comment Platelet Estimate Platelet Morphology Puncture Site Right radial Patient Temperature 98.6 O2 Saturation 96 ABG pH 7.24 L* ABG pCO2 91 H* ABG pO2 178 H ABG HCO3 38 H ABG O2 Content 13.0 ABG Base Excess 10.1 H ABG Methemoglobin 1.4 Krishna Test Present Hemoglobin 9.3 L Carboxyhemoglobin 1.4 O2 Delivery Device Bipap Vent Setting 18/5 Inspired O2 50 Critical Value Yes Sodium Potassium Chloride Carbon Dioxide Anion Gap BUN Creatinine Estimated GFR POC Glucose Random Glucose Calcium Phosphorus Magnesium Total Bilirubin AST ALT Alkaline Phosphatase Total Protein Albumin Imaging: Abdomen X-Ray 01/01/18 00:00 CONCLUSION: 1. No bowel obstruction, ileus or perforation. 2. Degenerative changes and scoliosis of the lumbar spine. Chest CT 01/07/18 00:00 CONCLUSION: 1. Postsurgical features of suspected previous left-sided lobectomy with volume loss and mediastinal shift to the left. 2. Bulky left-sided pleural plaques with chronic appearing small to moderate sized loculated left pleural effusion. 3. Dense airspace consolidation in the superior segment of the right lower lobe with patchy interstitial and groundglass opacities throughout the right lower lobe. Differential considerations include pneumonia and aspiration in the appropriate clinical setting. 4. Trace right-sided pleural effusion with fluid extending into the major fissure. 5. Mild coronary artery calcifications. 6. Small amount of ascites in the visualized upper abdomen. Chest X-Ray 01/08/18 06:58 CONCLUSION: Stable chest following ablation. Moderate either pleural thickening or pleural fluid remains on the right. Moderate interstitial edema persist. Objective Remarks: GENERAL: 82-year-old male lying in bed in mild resp distress. HEENT: Normocephalic. Atraumatic. Pupils equal, round, reactive, conjugate. Mucous membranes are moist NECK: Trachea is midline. No JVD, orally intubated with ETT 7.5cm CHEST: B/l equal air entry, diminished at bases CARDIOVASCULAR: Normal rate, regular rhythm. sinus. ABDOMEN: Soft, nontender, nondistended. No guarding. MUSCULOSKELETAL: Pulses 2+. significant evidence of scrotal edema. 1+ peripheral edema. No mottling NEUROLOGICAL: Intubated Assessment and Plan - Assessment and Plan Plan: Neuro: Acute metabolic encephalopathy- resolved Diprivan infusion for sedation.Daily sedation vacation. 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 Check CXR/ABG post intubation Continue Solumederol 40 mg IV Q6 Give Diamox 500mg IV x1 Pulmonary is following- Dr. 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 Normal left ventricular size. Wall thickness is normal. No regional wall motion abnormalities are present. Diffuse calcification of the aortic valve but no significant stenosis. There is mild to moderate tricuspid valve regurgitation. The estimated pulmonary arterial pressure is 76.9 mmHg with severe pulmonary hypertension. Continue furosemide 40 mg daily/home medication: As needed labetalol and Nitropaste for hypertension Renal/: Acute kidney injury History of nephrolithiasis Monitor renal function, I/O's, electrolytes replacement per protocol. On Lasix 40mg daily FEN/GI: Severe acute protein calorie malnutrition Start tube feeds- Glucerna 1.5 with goal rate 45ml/hr Lansoprazole for GI prophylaxis Docusate sodium/senna 1 tablet twice daily for bowel regimen ID: Healthcare associated pneumonia Severe sepsis- present on admission Normocytic anemia Thrombocytopenia Abx per ID ( On Vanco, Merrem) Monitor for signs of infections ( Fever, WBC) check sputum cx Sputum culture 12/20-shea resp vaishnavi Blood cultures 12/19 no growth Urine UA with urine culture 12/20-NGTD Negative Legionella and pneumococcal urinary antigens Monitor CBC daily and follow trends. No indication for transfusion of blood products at this time Endocrine: Hyperglycemia of critical illness -- SSI to maintain euglycemia with aspart insulin every 6 hours. Hold Levemir Heme: Anemia Thrombocytopenia Monitor CBC, follow up Hep PLT ab MSK:: History of left IT nailing 11/14 Vitamin D deficiency PT evaluate and treat Prophylaxis: GI Prophylaxis Lansoprazole DVT Prophylaxis -- SCDs - Enoxaparin held for worsening thrombocytopenia and Hemoccult positive Lines: Peripheral IVs Discussed with patient's , daughter and ICU nursing staff Level 3
[2018-01-08] MEDS: Potassium Chloride 25 MEQ Effervescent Tablet PO SCH (08:49)
[2018-01-08] MEDS: Furosemide 40 MG Tablet PO SCH (08:49)
[2018-01-08 08:50] LABS: ABG Base Excess 11.2 mmol/L (-2-2); ABG PCO2 62 mmHg (38-42); ABG PO2 375 mmHG (61-120)
[2018-01-08] MEDS: Propofol 1000 mg/100 ml Inj 1,000 MG/100 ML BOTTLE IV.CONT PRN ×2 (08:50→23:51)
[2018-01-08] MEDS: Budesonide-Formoterol 160/4.5 MCG 6 GM Inhaler INH SCH ×2 (08:51→20:16)
[2018-01-08] MEDS: Carboxymethylcellulose 0.5% Opth Drops 15 ML Bottle EACH EYE SCH ×2 (08:51→20:16)
[2018-01-08] MEDS: Chlorhexidine 0.12% Oral Kit 15 ML UDC OROPHARYNG SCH ×2 (08:51→20:15)
--- NOTE | 2018-01-08 13:05 | P.PN ---
Subjective Interval history: Was hypoxic this am and Intubated for respiratory failure . Now sedated and on the vent at FIO2 50 % CXR shows bilat infiltrates Physical Exam Vital signs: Vital Signs 01/07/18 14:00 01/07/18 15:00 01/07/18 15:23 Temperature Pulse Rate 103 H 104 H 101 H Respiratory Rate 30 H 23 Blood Pressure Pulse Oximetry 97 92 L 01/07/18 16:00 01/07/18 16:27 01/07/18 18:04 Temperature Pulse Rate 101 H 102 H Respiratory Rate Blood Pressure 111/56 L Pulse Oximetry 94 L 94 L 95 01/07/18 20:00 01/07/18 20:33 01/07/18 20:55 Temperature Pulse Rate 97 H 96 H Respiratory Rate 21 13 Blood Pressure 135/64 Pulse Oximetry 95 95 01/08/18 00:00 01/08/18 00:15 01/08/18 04:00 Temperature 98.2 F 98.5 F Pulse Rate 100 H 90 Respiratory Rate 28 H 19 Blood Pressure 101/60 135/63 Pulse Oximetry 98 97 98 01/08/18 05:00 01/08/18 06:40 01/08/18 07:30 Temperature Pulse Rate 90 79 Respiratory Rate 20 18 Blood Pressure Pulse Oximetry 98 97 01/08/18 07:51 01/08/18 08:30 01/08/18 08:33 Temperature 97.5 F L Pulse Rate 72 73 73 Respiratory Rate 17 16 16 Blood Pressure 101/53 L 107/55 L Pulse Oximetry 98 99 99 01/08/18 08:36 01/08/18 08:39 01/08/18 08:42 Temperature Pulse Rate 73 74 73 Respiratory Rate 16 16 16 Blood Pressure 117/58 L 103/54 L 102/57 L Pulse Oximetry 99 99 99 01/08/18 08:45 01/08/18 08:48 01/08/18 08:51 Temperature Pulse Rate 81 74 82 Respiratory Rate 17 16 16 Blood Pressure 106/55 L 107/54 L 103/51 L Pulse Oximetry 99 99 99 01/08/18 08:54 01/08/18 08:57 01/08/18 09:00 Temperature Pulse Rate 75 80 82 Respiratory Rate 16 16 16 Blood Pressure 103/55 L 106/57 L 82/44 L Pulse Oximetry 99 98 97 01/08/18 09:03 01/08/18 09:06 01/08/18 09:09 Temperature Pulse Rate 79 80 82 Respiratory Rate 17 12 22 Blood Pressure 89/50 L 96/54 L Pulse Oximetry 96 90 L 93 L 01/08/18 09:12 01/08/18 09:15 01/08/18 09:30 Temperature Pulse Rate 82 83 90 Respiratory Rate 16 Blood Pressure 105/53 L 116/56 L 122/58 L Pulse Oximetry 90 L 87 L 90 L 01/08/18 09:45 01/08/18 10:00 01/08/18 10:16 Temperature Pulse Rate 87 81 90 Respiratory Rate 16 Blood Pressure 125/62 103/55 L 109/54 L Pulse Oximetry 94 L 95 94 L 01/08/18 10:30 01/08/18 10:45 01/08/18 11:00 Temperature Pulse Rate 84 80 81 Respiratory Rate 19 16 16 Blood Pressure 108/74 104/51 L 104/52 L Pulse Oximetry 98 98 99 01/08/18 11:15 01/08/18 11:28 01/08/18 11:30 Temperature Pulse Rate 82 91 H Respiratory Rate 16 16 16 Blood Pressure 107/53 L 106/53 L Pulse Oximetry 99 98 98 Intake & Output 01/07/18 01/08/18 01/08/18 18:59 06:59 18:59 Intake Total 300 / 300 100 / 100 462.5 / 462.5 Output Total 550 / 550 Balance -250 / -250 100 / 100 462.5 / 462.5 Weight 74 kg Intake: IV 300 / 300 100 / 100 462.5 / 462.5 Merrem Inj 1,000 MG In NS Inj 100 / 100 200 / 200 100 ML @ 200 mls/hr IV.SIG Q8H NOAH Rx#:[id number] Zosyn 4.5 GM Premix 4.5 gm In 300 / 300 100 ml @ 200 mls/hr IV.SIG Q6H NOAH Rx#:[id number] Vancomycin Inj 1,250 MG In NS 262.5 / 262.5 Inj 250 ML @ 250 mls/hr IV.SIG Q24H NOAH Rx#:[id number] Oral 0 / 0 Output: Urine Amount (Catheter) 550 / 550 Condom 550 / 550 Other: # Incontinent Voids 3 # Bowel Movements 0 Narrative: General: Awake and in mild distress. On a ventilator and Intubated. HEENT ET in throat. no JVD, or adenopathy. Cardiovascular S1-S2 audible Respiratory bibasilar crackles,wheezes and decreased breath sounds bilateral. Abdomen: soft, nontender, positive bowel sounds. Extremities: 2+ pitting edema bilateral lower extremities. Well-healed scar on his left hip status post IT nailing. Neuro: patient sedated. - Urinary Catheter Management Straight Cath placed during this visit: yes, but has since been removed by the nurse Reason for continuing: Not indwelling catheter Insertion date: 12/23/17 Insertion time: 01:00 Removal date: 12/22/17 Removal time: 01:00 Condom Cath placed during this visit: no Results - Labs CBC & Chem 7: 01/08/18 04:12 01/08/18 04:12 Laboratory Results - last 24 hr 01/07/18 01/07/18 01/07/18 13:14 16:50 17:16 WBC RBC Hgb Hct MCV MCH MCHC RDW Plt Count MPV Prelim Diff (Auto) Neut % (Auto) Lymph % (Auto) Dixie % (Auto) Eos % (Auto) Baso % (Auto) Neut # (Auto) Lymph # (Auto) Dixie # (Auto) Eos # (Auto) Baso # (Auto) WBC Differential Diff Scan Differential Comment Platelet Estimate Platelet Morphology Puncture Site Right radial Patient Temperature 98.6 O2 Saturation 95 ABG pH 7.32 L ABG pCO2 76 H* ABG pO2 108 ABG HCO3 39 H ABG O2 Content 12.3 ABG Base Excess 12.3 H ABG Methemoglobin 1.5 Krishna Test Present Hemoglobin 9.0 L Carboxyhemoglobin 1.6 O2 Delivery Device Bipap Vent Setting [id number] Inspired O2 50 Critical Value Yes Sodium Potassium Chloride Carbon Dioxide Anion Gap BUN Creatinine Estimated GFR POC Glucose 119 H 150 H Random Glucose Calcium Phosphorus Magnesium Total Bilirubin AST ALT Alkaline Phosphatase Total Protein Albumin Heparin Dep Plt Ab OD Hep-Induced Plt Ab Marcelina 01/07/18 01/07/18 01/08/18 20:11 23:08 04:12 WBC RBC Hgb Hct MCV MCH MCHC RDW Plt Count MPV Prelim Diff (Auto) Neut % (Auto) Lymph % (Auto) Dixie % (Auto) Eos % (Auto) Baso % (Auto) Neut # (Auto) Lymph # (Auto) Dixie # (Auto) Eos # (Auto) Baso # (Auto) WBC Differential Diff Scan Differential Comment Platelet Estimate Platelet Morphology Puncture Site Right radial Patient Temperature 98.6 O2 Saturation 95 ABG pH 7.34 L ABG pCO2 71 H* ABG pO2 108 ABG HCO3 37 H ABG O2 Content 12.0 ABG Base Excess 11.1 H ABG Methemoglobin 1.4 Krishna Test Present Hemoglobin 8.8 L Carboxyhemoglobin 1.8 O2 Delivery Device Bipap Vent Setting 18/5/50% Inspired O2 50 Critical Value Yes Sodium Potassium Chloride Carbon Dioxide Anion Gap BUN Creatinine Estimated GFR POC Glucose 144 H Random Glucose Calcium Phosphorus Magnesium Total Bilirubin AST ALT Alkaline Phosphatase Total Protein Albumin Heparin Dep Plt Ab OD 0.398 Hep-Induced Plt Ab Marcelina Negative 01/08/18 01/08/18 01/08/18 04:12 04:12 05:20 WBC 6.1 RBC 3.17 L Hgb 9.5 L Hct 29.6 L MCV 93.4 MCH 30.0 MCHC 32.1 RDW 15.0 Plt Count 68 L MPV 8.6 Prelim Diff (Auto) Slide review pending Neut % (Auto) 91.5 H Lymph % (Auto) 5.9 L Dixie % (Auto) 2.5 Eos % (Auto) 0.0 Baso % (Auto) 0.1 Neut # (Auto) 5.5 Lymph # (Auto) 0.4 L Dixie # (Auto) 0.2 Eos # (Auto) 0.0 Baso # (Auto) 0.0 WBC Differential . Diff Scan Auto diff confirmed Differential Comment . Platelet Estimate Low L Platelet Morphology Normal Puncture Site Right radial Patient Temperature 98.6 O2 Saturation 96 ABG pH 7.24 L* ABG pCO2 91 H* ABG pO2 178 H ABG HCO3 38 H ABG O2 Content 13.0 ABG Base Excess 10.1 H ABG Methemoglobin 1.4 Krishna Test Present Hemoglobin 9.3 L Carboxyhemoglobin 1.4 O2 Delivery Device Bipap Vent Setting 18/5 Inspired O2 50 Critical Value Yes Sodium 144 Potassium 4.1 Chloride 99 Carbon Dioxide 39.9 H Anion Gap 5 BUN 20 H Creatinine 0.90 Estimated GFR 81 L POC Glucose Random Glucose 117 H Calcium 7.7 L Phosphorus 4.9 D Magnesium 2.3 Total Bilirubin 0.4 AST 24 ALT 45 Alkaline Phosphatase 182 H Total Protein 5.8 L Albumin 2.1 L Heparin Dep Plt Ab OD Hep-Induced Plt Ab Marcelina 01/08/18 01/08/18 01/08/18 08:35 08:40 12:01 WBC RBC Hgb Hct MCV MCH MCHC RDW Plt Count MPV Prelim Diff (Auto) Neut % (Auto) Lymph % (Auto) Dixie % (Auto) Eos % (Auto) Baso % (Auto) Neut # (Auto) Lymph # (Auto) Dixie # (Auto) Eos # (Auto) Baso # (Auto) WBC Differential Diff Scan Differential Comment Platelet Estimate Platelet Morphology Puncture Site Right radial Patient Temperature 98.6 O2 Saturation 97 ABG pH 7.39 ABG pCO2 62 H* ABG pO2 375 H ABG HCO3 37 H ABG O2 Content 12.0 ABG Base Excess 11.2 H ABG Methemoglobin 1.5 Krishna Test Present Hemoglobin 8.1 L Carboxyhemoglobin 1.3 O2 Delivery Device Ventilator Vent Setting Prvc/ac Inspired O2 100 Critical Value Yes Sodium Potassium Chloride Carbon Dioxide Anion Gap BUN Creatinine Estimated GFR POC Glucose 112 H 125 H Random Glucose Calcium Phosphorus Magnesium Total Bilirubin AST ALT Alkaline Phosphatase Total Protein Albumin Heparin Dep Plt Ab OD Hep-Induced Plt Ab Marcelina - Imaging Impressions Chest X-Ray 01/08/18 06:58 CONCLUSION: Stable chest following ablation. Moderate either pleural thickening or pleural fluid remains on the right. Moderate interstitial edema persist. Assessment and Plan - Assessment (1) Respiratory failure requiring intubation Code(s): J96.90 - Respiratory failure, unspecified, unspecified whether with hypoxia or hypercapnia Status: Acute (2) Pneumonia Code(s): J18.9 - Pneumonia, unspecified organism Status: Acute (3) CHF (congestive heart failure), NYHA class II Code(s): I50.9 - Heart failure, unspecified Status: Acute (4) CHF (congestive heart failure) Code(s): I50.9 - Heart failure, unspecified Status: Acute (5) Respiratory abnormalities Code(s): J98.9 - Respiratory disorder, unspecified Status: Acute (6) Emphysema of lung Code(s): J43.9 - Emphysema, unspecified Status: Acute (7) Borderline diabetes mellitus Code(s): R73.03 - Prediabetes Status: Acute (8) Fracture, intertrochanteric, left femur Code(s): S72.142A - Displaced intertrochanteric fracture of left femur, initial encounter for closed fracture Status: Acute (9) Nutrition, metabolism, and development symptoms Code(s): R63.8 - Other symptoms and signs concerning food and fluid intake Status: Acute - Plan RECOMMENDATIONS: 1. Ventilator support and wean FIO2 to 40 % 2. Bronchodilators in the form of DuoNeb q.6 hr. 3. D/W family here. 4. Solumedrol 40 mg Q8 H 5. Continue with Lasix 40 mg daily. 6. Cont antibiotics per ID. 7.,BMP CBC Chest XRay. 8. Keep sedated for vent control.
--- NOTE | 2018-01-08 17:03 | P.PNID ---
Subjective Remarks: intubated no fever Antibiotics: zosyn Allergies/Adverse Reactions: Allergies No Known Allergies Allergy (Verified 12/19/17 21:39) Objective Vital Signs 01/07/18 18:04 01/07/18 20:00 01/07/18 20:33 Temperature Pulse Rate 97 H Respiratory Rate 21 Blood Pressure 135/64 Pulse Oximetry 95 95 95 01/07/18 20:55 01/08/18 00:00 01/08/18 00:15 Temperature 98.2 F Pulse Rate 96 H 100 H Respiratory Rate 13 28 H Blood Pressure 101/60 Pulse Oximetry 98 97 01/08/18 04:00 01/08/18 05:00 01/08/18 06:40 Temperature 98.5 F Pulse Rate 90 90 Respiratory Rate 19 20 18 Blood Pressure 135/63 Pulse Oximetry 98 98 97 01/08/18 07:30 01/08/18 07:51 01/08/18 08:00 Temperature Pulse Rate 79 72 75 Respiratory Rate 17 Blood Pressure Pulse Oximetry 98 01/08/18 08:30 01/08/18 08:33 01/08/18 08:36 Temperature 97.5 F L Pulse Rate 73 73 73 Respiratory Rate 16 16 16 Blood Pressure 101/53 L 107/55 L 117/58 L Pulse Oximetry 99 99 99 01/08/18 08:39 01/08/18 08:42 01/08/18 08:45 Temperature Pulse Rate 74 73 81 Respiratory Rate 16 16 17 Blood Pressure 103/54 L 102/57 L 106/55 L Pulse Oximetry 99 99 99 01/08/18 08:48 01/08/18 08:51 01/08/18 08:54 Temperature Pulse Rate 74 82 75 Respiratory Rate 16 16 16 Blood Pressure 107/54 L 103/51 L 103/55 L Pulse Oximetry 99 99 99 01/08/18 08:57 01/08/18 09:00 01/08/18 09:03 Temperature Pulse Rate 80 82 79 Respiratory Rate 16 16 17 Blood Pressure 106/57 L 82/44 L Pulse Oximetry 98 97 96 01/08/18 09:06 01/08/18 09:09 01/08/18 09:12 Temperature Pulse Rate 80 82 82 Respiratory Rate 12 22 Blood Pressure 89/50 L 96/54 L 105/53 L Pulse Oximetry 90 L 93 L 90 L 01/08/18 09:15 01/08/18 09:30 01/08/18 09:45 Temperature Pulse Rate 83 90 87 Respiratory Rate 16 Blood Pressure 116/56 L 122/58 L 125/62 Pulse Oximetry 87 L 90 L 94 L 01/08/18 10:00 01/08/18 10:16 01/08/18 10:30 Temperature Pulse Rate 81 90 84 Respiratory Rate 16 19 Blood Pressure 103/55 L 109/54 L 108/74 Pulse Oximetry 95 94 L 98 01/08/18 10:45 01/08/18 11:00 01/08/18 11:15 Temperature Pulse Rate 80 81 82 Respiratory Rate 16 16 16 Blood Pressure 104/51 L 104/52 L 107/53 L Pulse Oximetry 98 99 99 01/08/18 11:28 01/08/18 11:30 01/08/18 11:45 Temperature Pulse Rate 91 H 87 Respiratory Rate 16 16 16 Blood Pressure 106/53 L 111/56 L Pulse Oximetry 98 98 99 01/08/18 12:00 01/08/18 12:15 01/08/18 12:30 Temperature 98.4 F Pulse Rate 87 95 H 93 H Respiratory Rate 16 16 16 Blood Pressure 112/54 L 107/57 L 126/61 Pulse Oximetry 98 98 98 01/08/18 12:45 01/08/18 13:00 01/08/18 13:15 Temperature Pulse Rate 90 85 88 Respiratory Rate 16 16 16 Blood Pressure 115/53 L 116/54 L 110/56 L Pulse Oximetry 98 98 98 01/08/18 13:30 01/08/18 13:45 01/08/18 14:00 Temperature Pulse Rate 93 H 91 H 91 H Respiratory Rate 17 18 18 Blood Pressure 94/54 L 120/56 L 121/57 L Pulse Oximetry 99 95 97 01/08/18 14:15 01/08/18 14:30 01/08/18 15:00 Temperature Pulse Rate 90 88 93 H Respiratory Rate 15 19 Blood Pressure 120/57 L 121/58 L 122/56 L Pulse Oximetry 96 91 L 91 L 01/08/18 15:30 01/08/18 15:43 01/08/18 16:00 Temperature 98.4 F Pulse Rate 95 H 98 H 92 H Respiratory Rate 21 24 Blood Pressure 111/59 L 121/58 L Pulse Oximetry 94 L 95 96 01/08/18 16:30 Temperature Pulse Rate 89 Respiratory Rate 16 Blood Pressure 102/54 L Pulse Oximetry 94 L Intake & Output 01/07/18 01/08/18 01/08/18 18:59 06:59 18:59 Intake Total 300 / 300 100 / 100 462.5 / 462.5 Output Total 550 / 550 Balance -250 / -250 100 / 100 462.5 / 462.5 Weight 74 kg Intake: IV 300 / 300 100 / 100 462.5 / 462.5 Merrem Inj 1,000 MG In NS Inj 100 / 100 200 / 200 100 ML @ 200 mls/hr IV.SIG Q8H NOAH Rx#:[id number] Zosyn 4.5 GM Premix 4.5 gm In 300 / 300 100 ml @ 200 mls/hr IV.SIG Q6H NOAH Rx#:[id number] Vancomycin Inj 1,250 MG In NS 262.5 / 262.5 Inj 250 ML @ 250 mls/hr IV.SIG Q24H NOAH Rx#:[id number] Oral 0 / 0 Output: Urine Amount (Catheter) 550 / 550 Condom 550 / 550 Other: # Incontinent Voids 3 # Bowel Movements 0 01/08/18 09:11 Sputum - Endotracheal Gram Stain - Final 01/08/18 09:11 Sputum - Endotracheal Sputum Culture - Pending Lab - Hematology Results 01/07/18 01/08/18 03:30 04:12 WBC 7.8 6.1 RBC 3.36 L 3.17 L Hgb 10.2 L 9.5 L Hct 31.3 L 29.6 L MCV 92.9 93.4 MCH 30.3 30.0 MCHC 32.6 32.1 RDW 15.1 15.0 Plt Count 80 L 68 L MPV 8.2 8.6 Prelim Diff (Auto) Slide review pending Slide review pending Neut % (Auto) 84.0 H 91.5 H Lymph % (Auto) 8.4 L 5.9 L [place] % (Auto) 6.0 2.5 Eos % (Auto) 1.4 0.0 Baso % (Auto) 0.2 0.1 Neut # (Auto) 6.5 5.5 Lymph # (Auto) 0.7 L 0.4 L [place] # (Auto) 0.5 0.2 Eos # (Auto) 0.1 0.0 Baso # (Auto) 0.0 0.0 WBC Differential . . Diff Scan Auto diff confirmed Auto diff confirmed Differential Comment . . Platelet Estimate Low L Low L Platelet Morphology Normal Normal Basophilic Stippling Faint H Ovalocytes 1+ H Lab - Chemistry Results 01/06/18 01/06/18 01/07/18 19:22 23:50 03:09 Sodium Potassium Chloride Carbon Dioxide Anion Gap BUN Creatinine Estimated GFR POC Glucose 404 H 153 H 160 H Random Glucose Calcium Phosphorus Magnesium Total Bilirubin AST ALT Alkaline Phosphatase Ammonia Total Protein Albumin 01/07/18 01/07/18 01/07/18 03:30 03:30 10:08 Sodium 141 Potassium 3.9 Chloride 95 L Carbon Dioxide 40.1 H Anion Gap 6 BUN 15 Creatinine 0.86 Estimated GFR 85 L POC Glucose 127 H Random Glucose 155 H Calcium 8.0 L Phosphorus Magnesium Total Bilirubin AST ALT Alkaline Phosphatase Ammonia 16 Total Protein Albumin 01/07/18 01/07/18 01/07/18 13:14 17:16 23:08 Sodium Potassium Chloride Carbon Dioxide Anion Gap BUN Creatinine Estimated GFR POC Glucose 119 H 150 H 144 H Random Glucose Calcium Phosphorus Magnesium Total Bilirubin AST ALT Alkaline Phosphatase Ammonia Total Protein Albumin 01/08/18 01/08/18 01/08/18 04:12 08:40 12:01 Sodium 144 Potassium 4.1 Chloride 99 Carbon Dioxide 39.9 H Anion Gap 5 BUN 20 H Creatinine 0.90 Estimated GFR 81 L POC Glucose 112 H 125 H Random Glucose 117 H Calcium 7.7 L Phosphorus 4.9 D Magnesium 2.3 Total Bilirubin 0.4 AST 24 ALT 45 Alkaline Phosphatase 182 H Ammonia Total Protein 5.8 L Albumin 2.1 L 01/08/18 15:29 Sodium Potassium Chloride Carbon Dioxide Anion Gap BUN Creatinine Estimated GFR POC Glucose 108 Random Glucose Calcium Phosphorus Magnesium Total Bilirubin AST ALT Alkaline Phosphatase Ammonia Total Protein Albumin Imaging: ITS Impressions Abdomen X-Ray 01/01/18 00:00 CONCLUSION: 1. No bowel obstruction, ileus or perforation. 2. Degenerative changes and scoliosis of the lumbar spine. Chest CT 01/07/18 00:00 CONCLUSION: 1. Postsurgical features of suspected previous left-sided lobectomy with volume loss and mediastinal shift to the left. 2. Bulky left-sided pleural plaques with chronic appearing small to moderate sized loculated left pleural effusion. 3. Dense airspace consolidation in the superior segment of the right lower lobe with patchy interstitial and groundglass opacities throughout the right lower lobe. Differential considerations include pneumonia and aspiration in the appropriate clinical setting. 4. Trace right-sided pleural effusion with fluid extending into the major fissure. 5. Mild coronary artery calcifications. 6. Small amount of ascites in the visualized upper abdomen. Chest X-Ray 01/08/18 06:58 CONCLUSION: Stable chest following ablation. Moderate either pleural thickening or pleural fluid remains on the right. Moderate interstitial edema persist. Physical Exam: GENERAL: NAD, sedated on propofol SKIN: Warm and dry. NO rash EYES: Pupils equal and round. No scleral icterus. No injection or drainage. ENT: No nasal bleeding or discharge. Mucous membranes pink and moist. NECK: Trachea midline. CARDIOVASCULAR: Regular rate and rhythm. RESPIRATORY: . Rhonchi to auscultation. Breath sounds diminished bilaterally. , especially on L base GASTROINTESTINAL: Abdomen soft, non-tender, nondistended. Hepatic and splenic margins not palpable. MUSCULOSKELETAL: Extremities without clubbing, cyanosis, or edema. No obvious deformities. NEUROLOGICAL: sedated.. Follows commands off sedation PSYCHIATRIC: unable t o assess Assessment and Plan - Plan COPD exacerbation Multiple pumonary pathologies (COPD, asbestosis) RLL PNA Dense airspace consolidation in the superior segment of the right lower lobe on CT PLAN: fu sputum culture cont meropenem, vancomycin case dw: RN, family @ b/s
[2018-01-08] MEDS: Vancomycin Inj 1,250 MG in Sodium Chlor 0.9% Inj 250 ML IV.SIG SCH (20:15)
[2018-01-09] MEDS: Oral Hygiene Kit OROPHARYNG SCH ×3 (04:12→15:20)
[2018-01-09] MEDS: MethylPREDNISolone Sod Succinate Inj 40 MG/ML Vial IV.PUSH SCH ×4 (04:12→21:09)
[2018-01-09] MEDS ORDERED: Pharmacy Ordered Lab Info OTHER ONE (05:45)
[2018-01-09 05:53] LABS: Hematocrit 23.5 % (39.0-51.0); Hemoglobin 7.9 gm/dL (13.0-17.0); Lymph # (Auto) 0.4 th/mm3 (1.0-4.8); Lymph % (Auto) 7.5 % (9.0-44.0); Mean Corpuscular HGB Conc 33.6 % (32.0-36.0); Mean Corpuscular Hemoglobin 30.3 pg (27.0-34.0); Mean Corpuscular Volume 90.2 fL (80.0-100.0); Mean Platelet Volume 9.2 fL (7.0-11.0); Mono # (Auto) 0.2 th/mm3 (0.0-0.9); Mono % (Auto) 3.2 % (0.0-8.0); Neut # (Auto) 4.9 th/mm3 (1.8-7.7); Neut % (Auto) 89.3 % (16.0-70.0); Platelet Count 65 th/mm3 (150-450); Red Blood Count 2.61 mil/mm3 (4.50-5.90); Red Cell Distribution Width 14.9 % (11.6-17.2); White Blood Count 5.5 th/mm3 (4.0-11.0)
[2018-01-09 06:24] LABS: Alanine Aminotransferase 45 U/L (12-78); Anion Gap 7 meq/L (5-15); Aspartate Aminotransferase 43 U/L (15-37); Blood Urea Nitrogen 36 mg/dL (7-18); Calcium 8.1 mg/dL (8.5-10.1); Carbon Dioxide 33.6 meq/L (21.0-32.0); Chloride 100 meq/L (98-107); Glomerular Filtration Rate 76 mL/min (>89); Glucose,Random 168 mg/dL (74-106); Magnesium 2.4 mg/dL (1.5-2.5); Potassium 3.6 meq/L (3.5-5.1); Sodium 141 meq/L (136-145)
[2018-01-09 06:27] LABS: Alkaline Phosphatase 201 U/L (45-117); Total Protein 5.3 g/dL (6.4-8.2)
[2018-01-09] MEDS: Insulin NovoLIN Regular Correctional Sugar Inj SQ SCH ×3 (06:36→18:28)
[2018-01-09] MEDS: Chlorhexidine 0.12% Oral Kit 15 ML UDC OROPHARYNG SCH ×2 (07:31→20:51)
--- NOTE | 2018-01-09 07:35 | P.PNCC ---
Subjective Subjective Remarks/Hospital Course: 82-year-old male with past medical history of COPD and CHF presents for an evaluation of shortness of breath and hypoxemia worsening over past few days. The nebulizer treatments helped initially however today there were not helpful. EMS reports on scene the O2 sat was in the 80s. He received high flow oxygen and nebulized albuterol in route here. His blood pressure initially in the emergency department was 200/100 however trended down to about 160/90. BiPAP was started in the emergency department with improvement in his O2 sat that has trended towards the high 90s with 100% FiO2 on BiPAP. Shortly after transfer to ICU the patient continues to to be more hypoxemic and restless requiring endotracheal intubation and mechanical ventilation. 12/20: intubated and sedated. still hypercarbic with [id number] respiratory acidosis. family unhappy that patient was intubated: they insisted last night on being a Full Code, but apparently the daughter required that she be notified of exactly what SpO2 the patient was at, and it had to reach a certain low level before she would be ok with intubation. Per overnight records , patient presented with severe respiratory distress, and family reports that EMS stated patient "wouldn't make it all the way to [facility]" due to his pulmonary instability. This morning, hypoxia is somewhat improved. remains on broad spectrum antibiotics. I explained to family that this is likely a new pneumonia causing respiratory failure. I also explained that after recent hip fracture and recent prolonged hospitalization, his baseline end-stage lung disease and NYHA Class IV symptoms are likely to worsen, and this may be worsening of his overall end-stage disease processes. Family continues to state that our facility caused his lung failure during the prior hospitalization. They are also concerned about his poor peripheral perfusion and oliguria, which concerns me also: I explained that his heart failure could not tolerate significant amount of iv fluids, and we have already given him 1500mL over the last 12 hours, but they have insisted on additional iv fluids. I explained he had severe sepsis and the mortality associated with this. Daughter continues to remind me that her father "is coming home with her and getting better" as she has stated multiple times in the past. 12/21: no improvements. remains intubated. clinically becoming volume overloaded - will be forced to start diuresis. 12/22: mental status slightly improved. still failing weaning attempts. 12/23: Afebrile. Currently on PSV trial 15/7 at 45%. Discussed with and daughter at bedside. Chest x-ray revealed ET tube at [place]. Retracted 1 cm. Tolerating tube feeds with family requested 40 cc an hour. Subjective: 12/24: Afebrile. Currently CPAP trial FiO2 at 45%. Tolerating tube feeds if family requested 40 cc an hour. Receiving morphine 1-2 mg every 4 hours as needed pain. 12/25 No events overnight remains intubated off sedation. Tolerated CPAP for several hrs yesterday. Afebrile. 12/26 No events overnight. Patient tolerated CPAP for most of day yesterday. Awake and alert follows commands, on no sedation. 12/27 Patient was extubated yesterday on 4L oxygen. Awake. Afebrile. 12/28 No events overnight. Remains on 4L oxygen. Awake and alert. 12/30: RECONSULT NOTE: reconsulted as rapid response for hypoxia. per the family , patient had desaturation episode to the 60s, placed on NRB. family insisted on transfer back to ICU. when I saw patient on arrival to ICU, patient spo2 99% on NRB. pao2 on NRB was 150. patient is well-known to me with baseline spo2 82- 86% on 5L o2 by NC at home. family states he has another pneumonia. on my review of CXR and lab evidence, unclear if this is new pneumonia vs. old chronic lung disease. patient denies sob or new symptoms. 12/31: no changes. remains on simple mask at 6LPM. not in distress. family does not want to leave ICU and wants to continue ICU care for the remainder of the hospitalization. long discussion about needing to de-escalate level of care prior to hospital discharge. 01/07 Reconsult for Resp. distress. Patient was placed on BIPAP with 60% FIO2. ABG this morning showed some improvements in his resp acidosis with PH:7.34, CO2 72 from 82. CXR from 16/[address] chest today. 01/08 Patient was intubated this morning for worsening resp acidosis. CT chest yesterday showed pneumonia/aspiration. On Diprivan for sedation. Afebrile. 01/09 Patient is intubated and on low dose Diprivan drip. Afebrile. Objective Vital Signs / I&O: Vital Signs 01/08/18 07:30 01/08/18 07:51 01/08/18 08:00 Temperature Pulse Rate 79 72 75 Respiratory Rate 17 Blood Pressure Pulse Oximetry 98 01/08/18 08:30 01/08/18 08:33 01/08/18 08:36 Temperature 97.5 F L Pulse Rate 73 73 73 Respiratory Rate 16 16 16 Blood Pressure 101/53 L 107/55 L 117/58 L Pulse Oximetry 99 99 99 01/08/18 08:39 01/08/18 08:42 01/08/18 08:45 Temperature Pulse Rate 74 73 81 Respiratory Rate 16 16 17 Blood Pressure 103/54 L 102/57 L 106/55 L Pulse Oximetry 99 99 99 01/08/18 08:48 01/08/18 08:51 01/08/18 08:54 Temperature Pulse Rate 74 82 75 Respiratory Rate 16 16 16 Blood Pressure 107/54 L 103/51 L 103/55 L Pulse Oximetry 99 99 99 01/08/18 08:57 01/08/18 09:00 01/08/18 09:03 Temperature Pulse Rate 80 82 79 Respiratory Rate 16 16 17 Blood Pressure 106/57 L 82/44 L Pulse Oximetry 98 97 96 01/08/18 09:06 01/08/18 09:09 01/08/18 09:12 Temperature Pulse Rate 80 82 82 Respiratory Rate 12 22 Blood Pressure 89/50 L 96/54 L 105/53 L Pulse Oximetry 90 L 93 L 90 L 01/08/18 09:15 01/08/18 09:30 01/08/18 09:45 Temperature Pulse Rate 83 90 87 Respiratory Rate 16 Blood Pressure 116/56 L 122/58 L 125/62 Pulse Oximetry 87 L 90 L 94 L 01/08/18 10:00 01/08/18 10:16 01/08/18 10:30 Temperature Pulse Rate 81 90 84 Respiratory Rate 16 19 Blood Pressure 103/55 L 109/54 L 108/74 Pulse Oximetry 95 94 L 98 01/08/18 10:45 01/08/18 11:00 01/08/18 11:15 Temperature Pulse Rate 80 81 82 Respiratory Rate 16 16 16 Blood Pressure 104/51 L 104/52 L 107/53 L Pulse Oximetry 98 99 99 01/08/18 11:28 01/08/18 11:30 01/08/18 11:45 Temperature Pulse Rate 91 H 87 Respiratory Rate 16 16 16 Blood Pressure 106/53 L 111/56 L Pulse Oximetry 98 98 99 01/08/18 12:00 01/08/18 12:15 01/08/18 12:30 Temperature 98.4 F Pulse Rate 87 95 H 93 H Respiratory Rate 16 16 16 Blood Pressure 112/54 L 107/57 L 126/61 Pulse Oximetry 98 98 98 01/08/18 12:45 01/08/18 13:00 01/08/18 13:15 Temperature Pulse Rate 90 85 88 Respiratory Rate 16 16 16 Blood Pressure 115/53 L 116/54 L 110/56 L Pulse Oximetry 98 98 98 01/08/18 13:30 01/08/18 13:45 01/08/18 14:00 Temperature Pulse Rate 93 H 91 H 91 H Respiratory Rate 17 18 18 Blood Pressure 94/54 L 120/56 L 121/57 L Pulse Oximetry 99 95 97 01/08/18 14:15 01/08/18 14:30 01/08/18 15:00 Temperature Pulse Rate 90 88 93 H Respiratory Rate 15 19 Blood Pressure 120/57 L 121/58 L 122/56 L Pulse Oximetry 96 91 L 91 L 01/08/18 15:30 01/08/18 15:43 01/08/18 16:00 Temperature 98.4 F Pulse Rate 95 H 98 H 92 H Respiratory Rate 21 24 Blood Pressure 111/59 L 121/58 L Pulse Oximetry 94 L 95 96 01/08/18 16:30 01/08/18 20:00 01/08/18 20:18 Temperature 99.1 F Pulse Rate 89 87 90 Respiratory Rate 16 16 17 Blood Pressure 102/54 L 112/55 L Pulse Oximetry 94 L 100 01/08/18 20:20 01/08/18 23:22 01/09/18 00:00 Temperature 98.4 F Pulse Rate 91 H Respiratory Rate 17 17 18 Blood Pressure 120/57 L Pulse Oximetry 100 99 95 01/09/18 04:00 01/09/18 04:05 01/09/18 04:07 Temperature 98.9 F Pulse Rate 85 82 Respiratory Rate 18 16 19 Blood Pressure 145/65 H Pulse Oximetry 94 L 95 Intake & Output 01/08/18 01/09/18 01/09/18 18:59 06:59 18:59 Intake Total 462.5 / 462.5 562.5 / 562.5 Output Total 550 / 550 400 / 400 Balance -87.5 / -87.5 162.5 / 162.5 Weight 74 kg Intake: IV 462.5 / 462.5 562.5 / 562.5 Diprivan 1000 mg/100 ml Inj 1, 100 / 100 000 mg In 100 ml @ 5 MCG/KG/MIN 2.22 mls/hr IV.CONT TITRATE PRN Rx#:[id number] Merrem Inj 1,000 MG In NS Inj 200 / 200 200 / 200 100 ML @ 200 mls/hr IV.SIG Q8H NOAH Rx#:[id number] Vancomycin Inj 1,250 MG In NS 262.5 / 262.5 262.5 / 262.5 Inj 250 ML @ 250 mls/hr IV.SIG Q24H NOAH Rx#:[id number] Output: Urine Amount (Catheter) 550 / 550 400 / 400 Condom 550 / 550 400 / 400 Other: Date of Last Bowel Movement 01/06/18 # Bowel Movements 0 Result Diagrams: 01/09/18 04:39 01/09/18 04:39 Other Results: Laboratory Results - last 12 hr 01/08/18 01/09/18 01/09/18 23:50 04:39 04:39 WBC 5.5 RBC 2.61 L Hgb 7.9 L Hct 23.5 L MCV 90.2 MCH 30.3 MCHC 33.6 RDW 14.9 Plt Count 65 L MPV 9.2 Prelim Diff (Auto) Slide review pending Neut % (Auto) 89.3 H Lymph % (Auto) 7.5 L [place] % (Auto) 3.2 Eos % (Auto) 0.0 Baso % (Auto) 0.0 Neut # (Auto) 4.9 Lymph # (Auto) 0.4 L [place] # (Auto) 0.2 Eos # (Auto) 0.0 Baso # (Auto) 0.0 Differential Comment . Sodium 141 Potassium 3.6 Chloride 100 Carbon Dioxide 33.6 H Anion Gap 7 BUN 36 H Creatinine 0.95 Estimated GFR 76 L POC Glucose 143 H Random Glucose 168 H Calcium 8.1 L Phosphorus 3.0 D Magnesium 2.4 Total Bilirubin 0.4 AST 43 H ALT 45 Alkaline Phosphatase 201 H Total Protein 5.3 L Albumin 2.0 L Imaging: Abdomen X-Ray 01/01/18 00:00 CONCLUSION: 1. No bowel obstruction, ileus or perforation. 2. Degenerative changes and scoliosis of the lumbar spine. Chest CT 01/07/18 00:00 CONCLUSION: 1. Postsurgical features of suspected previous left-sided lobectomy with volume loss and mediastinal shift to the left. 2. Bulky left-sided pleural plaques with chronic appearing small to moderate sized loculated left pleural effusion. 3. Dense airspace consolidation in the superior segment of the right lower lobe with patchy interstitial and groundglass opacities throughout the right lower lobe. Differential considerations include pneumonia and aspiration in the appropriate clinical setting. 4. Trace right-sided pleural effusion with fluid extending into the major fissure. 5. Mild coronary artery calcifications. 6. Small amount of ascites in the visualized upper abdomen. Chest X-Ray 01/08/18 06:58 CONCLUSION: Stable chest following ablation. Moderate either pleural thickening or pleural fluid remains on the right. Moderate interstitial edema persist. Objective Remarks: GENERAL: 82-year-old male lying in bed in mild resp distress. HEENT: Normocephalic. Atraumatic. Pupils equal, round, reactive, conjugate. Mucous membranes are moist NECK: Trachea is midline. No JVD, orally intubated with ETT 7.5cm CHEST: B/l equal air entry, diminished at bases CARDIOVASCULAR: Normal rate, regular rhythm. sinus. ABDOMEN: Soft, nontender, nondistended. No guarding. MUSCULOSKELETAL: Pulses 2+. significant evidence of scrotal edema. 1+ peripheral edema. No mottling NEUROLOGICAL: Intubated,sedated Assessment and Plan - Assessment and Plan Plan: Neuro: Acute metabolic encephalopathy- resolved Diprivan infusion for sedation.Daily sedation vacation. 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 SBT daily. Will likely need trach/PEG tube placement. Continue Solumederol 40 mg IV Q6 Pulmonary is following- Dr. 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 Normal left ventricular size. Wall thickness is normal. No regional wall motion abnormalities are present. Diffuse calcification of the aortic valve but no significant stenosis. There is mild to moderate tricuspid valve regurgitation. The estimated pulmonary arterial pressure is 76.9 mmHg with severe pulmonary hypertension. Continue furosemide 40 mg daily/home medication: As needed labetalol and Nitropaste for hypertension Renal/: History of nephrolithiasis Monitor renal function, I/O's, electrolytes replacement per protocol. On Lasix 40mg daily FEN/GI: Severe acute protein calorie malnutrition On tube feeds- Glucerna 1.5 with goal rate 45ml/hr Lansoprazole for GI prophylaxis Docusate sodium/senna 1 tablet twice daily for bowel regimen Consult GI for anemia with drop H/H and Hemoccult positive stool ID: Healthcare associated pneumonia Severe sepsis- present on admission Normocytic anemia Thrombocytopenia Abx per ID ( On Vanco, Merrem) Monitor for signs of infections ( Fever, WBC) Follow up on sputum 01/08 pending Sputum culture 12/20-shea resp vaishnavi Blood cultures 12/19 no growth Urine UA with urine culture 12/20-NGTD Negative Legionella and pneumococcal urinary antigens Heme: Monitor CBC daily and follow trends. Endocrine: Hyperglycemia of critical illness -- SSI to maintain euglycemia with aspart insulin every 6 hours. Hold Levemir Heme: Anemia Thrombocytopenia Monitor CBC, Hep PLT ab negative MSK:: History of left IT nailing 11/14 Vitamin D deficiency PT evaluate and treat Prophylaxis: GI Prophylaxis Lansoprazole DVT Prophylaxis -- SCDs - Enoxaparin held for worsening thrombocytopenia and Hemoccult positive Lines: Peripheral IVs Discussed with patient's , daughter and ICU nursing staff CCT 35 mins
[2018-01-09 08:27] LABS: Stomatocytes 1+
[2018-01-09 08:28] LABS: Platelet Morphology Normal (Normal)
[2018-01-09] MEDS: Potassium Chloride 25 MEQ Effervescent Tablet PO SCH (09:04)
[2018-01-09] MEDS: Furosemide 40 MG Tablet PO SCH (09:05)
[2018-01-09] MEDS: Carboxymethylcellulose 0.5% Opth Drops 15 ML Bottle EACH EYE SCH ×2 (09:05→20:53)
[2018-01-09] MEDS: Budesonide-Formoterol 160/4.5 MCG 6 GM Inhaler INH SCH ×2 (09:44→20:53)
[2018-01-09 12:12] LABS: Hematocrit 25.1 % (39.0-51.0); Hemoglobin 8.4 gm/dL (13.0-17.0)
[2018-01-09] MEDS: Propofol 1000 mg/100 ml Inj 1,000 MG/100 ML BOTTLE IV.CONT PRN (13:06)
--- NOTE | 2018-01-09 15:25 | P.PN ---
Subjective Interval history: Stable on the vent. FIO2 at 40 %. Awake but on Diprivan. Tolerates tube feeds. Family here and had long discussion about possible PEG. Physical Exam Vital signs: Vital Signs 01/08/18 15:30 01/08/18 15:43 01/08/18 16:00 Temperature 98.4 F Pulse Rate 95 H 98 H 92 H Respiratory Rate 21 24 Blood Pressure 111/59 L 121/58 L Pulse Oximetry 94 L 95 96 01/08/18 16:30 01/08/18 20:00 01/08/18 20:18 Temperature 99.1 F Pulse Rate 89 87 90 Respiratory Rate 16 16 17 Blood Pressure 102/54 L 112/55 L Pulse Oximetry 94 L 100 01/08/18 20:20 01/08/18 23:22 01/09/18 00:00 Temperature 98.4 F Pulse Rate 91 H Respiratory Rate 17 17 18 Blood Pressure 120/57 L Pulse Oximetry 100 99 95 01/09/18 04:00 01/09/18 04:05 01/09/18 04:07 Temperature 98.9 F Pulse Rate 85 82 Respiratory Rate 18 16 19 Blood Pressure 145/65 H Pulse Oximetry 94 L 95 01/09/18 08:00 01/09/18 08:31 01/09/18 12:00 Temperature 98.7 F 98.9 F Pulse Rate 95 H 87 87 Respiratory Rate 19 18 19 Blood Pressure 147/66 H 139/65 Pulse Oximetry 93 L 94 L 01/09/18 12:09 Temperature Pulse Rate Respiratory Rate 18 Blood Pressure Pulse Oximetry 91 L Intake & Output 01/08/18 01/09/18 01/09/18 18:59 06:59 18:59 Intake Total 462.5 / 462.5 562.5 / 562.5 200 / 200 Output Total 550 / 550 400 / 400 Balance -87.5 / -87.5 162.5 / 162.5 200 / 200 Weight 74 kg Intake: IV 462.5 / 462.5 562.5 / 562.5 200 / 200 Diprivan 1000 mg/100 ml Inj 1, 100 / 100 100 / 100 000 mg In 100 ml @ 5 MCG/KG/MIN 2.22 mls/hr IV.CONT TITRATE PRN Rx#:[id number] Merrem Inj 1,000 MG In NS Inj 200 / 200 200 / 200 100 / 100 100 ML @ 200 mls/hr IV.SIG Q8H [facility] Rx#:[id number] Vancomycin Inj 1,250 MG In NS 262.5 / 262.5 262.5 / 262.5 Inj 250 ML @ 250 mls/hr IV.SIG Q24H [facility] Rx#:[id number] Output: Urine Amount (Catheter) 550 / 550 400 / 400 Condom 550 / 550 400 / 400 Other: Date of Last Bowel Movement 01/06/18 # Bowel Movements 0 Narrative: General:Elderly W/M Awake and in no distress. On a ventilator and Intubated. HEENT ET in throat. no JVD, or adenopathy. Cardiovascular S1-S2 audible Respiratory : bibasilar crackles,wheezes and decreased breath sounds bilateral. Abdomen: soft, nontender, positive bowel sounds. Extremities: 1 + pitting edema bilateral lower extremities. Neuro: patient partially sedated. - Urinary Catheter Management Straight Cath placed during this visit: yes, but has since been removed by the nurse Reason for continuing: Not indwelling catheter Insertion date: 12/23/17 Insertion time: 01:00 Removal date: 12/22/17 Removal time: 01:00 Condom Cath placed during this visit: no Results - Labs CBC & Chem 7: 01/09/18 11:45 01/09/18 04:39 Laboratory Results - last 24 hr 01/08/18 01/08/18 01/09/18 15:29 23:50 04:39 WBC 5.5 RBC 2.61 L Hgb 7.9 L Hct 23.5 L MCV 90.2 MCH 30.3 MCHC 33.6 RDW 14.9 Plt Count 65 L MPV 9.2 Prelim Diff (Auto) Slide review pending Neut % (Auto) 89.3 H Lymph % (Auto) 7.5 L Bennett % (Auto) 3.2 Eos % (Auto) 0.0 Baso % (Auto) 0.0 Neut # (Auto) 4.9 Lymph # (Auto) 0.4 L Bennett # (Auto) 0.2 Eos # (Auto) 0.0 Baso # (Auto) 0.0 WBC Differential . Diff Scan Auto diff confirmed Differential Comment . Platelet Estimate Low L Platelet Morphology Normal Stomatocytes 1+ H Sodium Potassium Chloride Carbon Dioxide Anion Gap BUN Creatinine Estimated GFR POC Glucose 108 143 H Random Glucose Calcium Phosphorus Magnesium Total Bilirubin AST ALT Alkaline Phosphatase Total Protein Albumin 01/09/18 01/09/18 01/09/18 04:39 11:45 12:43 WBC RBC Hgb 8.4 L Hct 25.1 L MCV MCH MCHC RDW Plt Count MPV Prelim Diff (Auto) Neut % (Auto) Lymph % (Auto) Bennett % (Auto) Eos % (Auto) Baso % (Auto) Neut # (Auto) Lymph # (Auto) Bennett # (Auto) Eos # (Auto) Baso # (Auto) WBC Differential Diff Scan Differential Comment Platelet Estimate Platelet Morphology Stomatocytes Sodium 141 Potassium 3.6 Chloride 100 Carbon Dioxide 33.6 H Anion Gap 7 BUN 36 H Creatinine 0.95 Estimated GFR 76 L POC Glucose 305 H Random Glucose 168 H Calcium 8.1 L Phosphorus 3.0 D Magnesium 2.4 Total Bilirubin 0.4 AST 43 H ALT 45 Alkaline Phosphatase 201 H Total Protein 5.3 L Albumin 2.0 L Microbiology 01/08/18 09:11 Sputum - Endotracheal Gram Stain - Final 01/08/18 09:11 Sputum - Endotracheal Sputum Culture - Preliminary Heavy growth normal respiratory vaishnavi at 24 hours Assessment and Plan - Assessment (1) Respiratory failure requiring intubation Code(s): J96.90 - Respiratory failure, unspecified, unspecified whether with hypoxia or hypercapnia Status: Acute (2) Pneumonia Code(s): J18.9 - Pneumonia, unspecified organism Status: Acute (3) CHF (congestive heart failure), NYHA class II Code(s): I50.9 - Heart failure, unspecified Status: Acute (4) CHF (congestive heart failure) Code(s): I50.9 - Heart failure, unspecified Status: Acute (5) Respiratory abnormalities Code(s): J98.9 - Respiratory disorder, unspecified Status: Acute (6) Emphysema of lung Code(s): J43.9 - Emphysema, unspecified Status: Acute (7) Borderline diabetes mellitus Code(s): R73.03 - Prediabetes Status: Acute (8) Fracture, intertrochanteric, left femur Code(s): S72.142A - Displaced intertrochanteric fracture of left femur, initial encounter for closed fracture Status: Acute (9) Nutrition, metabolism, and development symptoms Code(s): R63.8 - Other symptoms and signs concerning food and fluid intake Status: Acute - Plan RECOMMENDATIONS: 1. Ventilator support and wean FIO2 to keep sat >92 2. Bronchodilators in the form of DuoNeb q.6 hr. 3. D/W family here. 4. Solumedrol 40 mg Q12H 5. Continue with Lasix 40 mg daily. 6. Cont antibiotics per ID. 7.,CPAP trial daily 8. Wean sedation.
--- NOTE | 2018-01-09 16:29 | MB ---
cc: Kelly Aranda MD DATE: 01/09/2018 REFERRING PHYSICIAN: Zechariah Weinstein MD REASON FOR CONSULTATION: Drop in hemoglobin and mild anemia. HISTORY OF PRESENT ILLNESS: Mr. Davenport is an unfortunate 82-year-old gentleman who was admitted to the hospital on 12/19/2017 for pneumonia, sepsis, noted to have slight decline in hemoglobin. There is no history of melena, hematemesis, hematochezia. The patient is unable to give me any history. Information is taken from the family, who is at bedside. He never had endoscopy and colonoscopy. There is no history of previous abdominal pain, nausea, vomiting, constipation or diarrhea. No history of GI bleed. He was admitted for pneumonia, COPD, status post recent intubation, extubation and reintubation. PAST MEDICAL HISTORY: Dementia, COPD, asbestosis, left-sided lobectomy unknown etiology that was done when the patient was very young back in [place]. Diabetes, kidney stones ,pneumothorax. dwarfism PAST SURGICAL HISTORY: Hip surgery, hernia repair, lobectomy of the lung. FAMILY HISTORY: No family history of colon cancer or any GI pathology, coronary artery disease. SOCIAL HISTORY: There is no history of drinking. Former smoker, stopped smoking 2015. No history of drug use. ALLERGIES TO MEDICATIONS: NONE. CURRENT MEDICATIONS: In the hospital. He is currently on: 1. Tylenol. 2. Milk of magnesia. 3. Albuterol. 4. Artificial tears. 5. Dulcolax. 6. Symbicort. 7. Clonidine. 8. Peridex. 9. Catapres. 10. Benadryl. 11. Lasix. 12. Glucagon. 13. Apresoline. 14. Insulin. 15. Labetalol. 16. Lactulose. 17. Lansoprazole. 18. Lidocaine. 19. Magnesium oxide. 20. Meropenem. 21. Solu-Medrol. 22. Morphine. 23. Nitroglycerin. 24. Zofran. 25. Potassium chloride. 26. Diprivan 27. Senokot. 28. Silvadene. 29. Throat lozenges. 30. Vancomycin IV. REVIEW OF SYSTEMS: Cannot be performed. PHYSICAL EXAMINATION: GENERAL: On clinical examination, he is sitting in bed. He is awake, intubated, unable to communicate. HEENT: PERRLA. Pale. NECK: No JVD. No lymphadenopathy. CHEST: Bilateral air entry diminished at the bases. CARDIOVASCULAR: S1, S2. No murmur. ABDOMEN: Soft, nontender. Bowel sounds are present. EXTREMITIES: Pedal edema 1. No mottling. Some ecchymosis on the lower extremities. NEUROLOGICAL: He is awake, unable to communicate. LABORATORY DATA: His hemoglobin on 01/05/2018 was 9.7, 01/06/2018 9.2, 01/07/2018 10.2, 01/08/2018 9.5, today morning 7.9, repeated later in the afternoon 8.4, are so his platelets 65. PT/INR 11.7 and 1.1. None of them was repeated recently. His BUN is 36, creatinine 0.95, glucose 168, AST 43, alkaline phosphatase 201, albumin 2. The patient had a CT chest, which was suggestive of past surgical features of suspected previous left-sided lobectomy with volume loss and mediastinal shift to the left, bulky left-sided pleural plaques, chronic density airspace consolidation in the superior segment of the right lower lobe. Trace right-sided pleural effusion, mild coronary artery calcification, small amount of ascites in the upper abdomen. ASSESSMENT AND PLAN: Mr. Davenport is an unfortunate 82-year-old gentleman with multiple medical problems, admitted with pneumonia, sepsis, noted to have slight decrease in his hemoglobin. No indication of active bleed at this time. Low platelets. Unclear etiology. Elevated alkaline phosphatase, unclear etiology at this time. Needs further evaluation. Respiratory failure, on ventilator at this time. RECOMMENDATIONS: Abdominal ultrasound to further evaluate the elevation of the alkaline phosphatase, also to evaluate for hepatosplenomegaly as the cause for thrombocytopenia Thrombocytopenia of unclear etiology, possible medication induced versus sepsis versus other etiologies. Decrease in hemoglobin. No indication of active bleed at this time. Monitor hemoglobin and hematocrit closely. If active bleeding, we will consider endoscopy on emergency basis. May consider upper endoscopy, possible next week if the family agrees. At this time, they would like to think about it. If this is negative, consider colonoscopy. PT/INR. If the ultrasound is negative for any biliary pathology as the cause for elevation in alkaline phosphatase, we will need further investigation to determine the cause of elevation. We will continue to follow the patient along with you. Lengthy discussion with the family at bedside. MD LEONEL Saunders/crystal , 03:56 PM , 04:10 PM [facility]
--- NOTE | 2018-01-09 17:06 | P.PNID ---
Subjective Remarks: On CPAP, 40% + secretions no fever sputum clx are withrespm vaishnavi no leukocytosis Antibiotics: meropenem Allergies/Adverse Reactions: Allergies No Known Allergies Allergy (Verified 12/19/17 21:39) Objective Vital Signs 01/08/18 20:00 01/08/18 20:18 01/08/18 20:20 Temperature 99.1 F Pulse Rate 87 90 Respiratory Rate 16 17 17 Blood Pressure 112/55 L Pulse Oximetry 100 100 01/08/18 23:22 01/09/18 00:00 01/09/18 04:00 Temperature 98.4 F 98.9 F Pulse Rate 91 H 85 Respiratory Rate 17 18 18 Blood Pressure 120/57 L 145/65 H Pulse Oximetry 99 95 94 L 01/09/18 04:05 01/09/18 04:07 01/09/18 08:00 Temperature 98.7 F Pulse Rate 82 95 H Respiratory Rate 16 19 19 Blood Pressure 147/66 H Pulse Oximetry 95 93 L 01/09/18 08:31 01/09/18 12:00 01/09/18 12:09 Temperature 98.9 F Pulse Rate 87 87 Respiratory Rate 18 19 18 Blood Pressure 139/65 Pulse Oximetry 94 L 91 L 01/09/18 16:00 01/09/18 16:39 Temperature 99.0 F Pulse Rate 85 Respiratory Rate 20 24 Blood Pressure 116/57 L Pulse Oximetry 93 L 92 L Intake & Output 01/08/18 01/09/18 01/09/18 18:59 06:59 18:59 Intake Total 462.5 / 462.5 562.5 / 562.5 200 / 200 Output Total 550 / 550 400 / 400 Balance -87.5 / -87.5 162.5 / 162.5 200 / 200 Weight 74 kg Intake: IV 462.5 / 462.5 562.5 / 562.5 200 / 200 Diprivan 1000 mg/100 ml Inj 1, 100 / 100 100 / 100 000 mg In 100 ml @ 5 MCG/KG/MIN 2.22 mls/hr IV.CONT TITRATE PRN Rx#:[id number] Merrem Inj 1,000 MG In NS Inj 200 / 200 200 / 200 100 / 100 100 ML @ 200 mls/hr IV.SIG Q8H [facility] Rx#:[id number] Vancomycin Inj 1,250 MG In NS 262.5 / 262.5 262.5 / 262.5 Inj 250 ML @ 250 mls/hr IV.SIG Q24H [facility] Rx#:[id number] Output: Urine Amount (Catheter) 550 / 550 400 / 400 Condom 550 / 550 400 / 400 Other: Date of Last Bowel Movement 01/06/18 # Bowel Movements 0 01/08/18 09:11 Sputum - Endotracheal Gram Stain - Final 01/08/18 09:11 Sputum - Endotracheal Sputum Culture - Preliminary Heavy growth normal respiratory vaishnavi at 24 hours Lab - Hematology Results 01/08/18 01/09/18 01/09/18 04:12 04:39 11:45 WBC 6.1 5.5 RBC 3.17 L 2.61 L Hgb 9.5 L 7.9 L 8.4 L Hct 29.6 L 23.5 L 25.1 L MCV 93.4 90.2 MCH 30.0 30.3 MCHC 32.1 33.6 RDW 15.0 14.9 Plt Count 68 L 65 L MPV 8.6 9.2 Prelim Diff (Auto) Slide review pending Slide review pending Neut % (Auto) 91.5 H 89.3 H Lymph % (Auto) 5.9 L 7.5 L [place] % (Auto) 2.5 3.2 Eos % (Auto) 0.0 0.0 Baso % (Auto) 0.1 0.0 Neut # (Auto) 5.5 4.9 Lymph # (Auto) 0.4 L 0.4 L [place] # (Auto) 0.2 0.2 Eos # (Auto) 0.0 0.0 Baso # (Auto) 0.0 0.0 WBC Differential . . Diff Scan Auto diff confirmed Auto diff confirmed Differential Comment . . Platelet Estimate Low L Low L Platelet Morphology Normal Normal Stomatocytes 1+ H Lab - Chemistry Results 01/07/18 01/07/18 01/08/18 17:16 23:08 04:12 Sodium 144 Potassium 4.1 Chloride 99 Carbon Dioxide 39.9 H Anion Gap 5 BUN 20 H Creatinine 0.90 Estimated GFR 81 L POC Glucose 150 H 144 H Random Glucose 117 H Calcium 7.7 L Phosphorus 4.9 D Magnesium 2.3 Total Bilirubin 0.4 AST 24 ALT 45 Alkaline Phosphatase 182 H Total Protein 5.8 L Albumin 2.1 L 01/08/18 01/08/18 01/08/18 08:40 12:01 15:29 Sodium Potassium Chloride Carbon Dioxide Anion Gap BUN Creatinine Estimated GFR POC Glucose 112 H 125 H 108 Random Glucose Calcium Phosphorus Magnesium Total Bilirubin AST ALT Alkaline Phosphatase Total Protein Albumin 01/08/18 01/09/18 01/09/18 23:50 04:39 12:43 Sodium 141 Potassium 3.6 Chloride 100 Carbon Dioxide 33.6 H Anion Gap 7 BUN 36 H Creatinine 0.95 Estimated GFR 76 L POC Glucose 143 H 305 H Random Glucose 168 H Calcium 8.1 L Phosphorus 3.0 D Magnesium 2.4 Total Bilirubin 0.4 AST 43 H ALT 45 Alkaline Phosphatase 201 H Total Protein 5.3 L Albumin 2.0 L Imaging: ITS Impressions Abdomen X-Ray 01/01/18 00:00 CONCLUSION: 1. No bowel obstruction, ileus or perforation. 2. Degenerative changes and scoliosis of the lumbar spine. Chest CT 01/07/18 00:00 CONCLUSION: 1. Postsurgical features of suspected previous left-sided lobectomy with volume loss and mediastinal shift to the left. 2. Bulky left-sided pleural plaques with chronic appearing small to moderate sized loculated left pleural effusion. 3. Dense airspace consolidation in the superior segment of the right lower lobe with patchy interstitial and groundglass opacities throughout the right lower lobe. Differential considerations include pneumonia and aspiration in the appropriate clinical setting. 4. Trace right-sided pleural effusion with fluid extending into the major fissure. 5. Mild coronary artery calcifications. 6. Small amount of ascites in the visualized upper abdomen. Chest X-Ray 01/08/18 06:58 CONCLUSION: Stable chest following ablation. Moderate either pleural thickening or pleural fluid remains on the right. Moderate interstitial edema persist. Physical Exam: GENERAL: NAD, sedated on propofol SKIN: Warm and dry. NO rash EYES: Pupils equal and round. No scleral icterus. No injection or drainage. ENT: No nasal bleeding or discharge. Mucous membranes pink and moist. NECK: Trachea midline. CARDIOVASCULAR: Regular rate and rhythm. RESPIRATORY: . Rhonchi to auscultation. Breath sounds diminished bilaterally. GASTROINTESTINAL: Abdomen soft, non-tender, nondistended. MUSCULOSKELETAL: Extremities without clubbing, cyanosis, or edema. No obvious deformities. NEUROLOGICAL: sedated. PSYCHIATRIC: unable to assess Assessment and Plan - Plan COPD exacerbation Multiple pumonary pathologies (COPD, asbestosis) RLL PNA Dense airspace consolidation in the superior segment of the right lower lobe on CT PLAN: fu sputum culture dc meropenem, vancomycin start zosyn repeat CXR consider bronch especially if no clinical/rad improvement case dw: RN, family @ b/s beulah Almaraz
--- NOTE | 2018-01-09 18:40 | P.DIET ---
Nutritional Evaluation Type of nutrition evaluation: follow-up Nutrition consult regarding: Tube Feeding Nutrition screening: MDC (Wound) Subjective Oral Diet Tolerance Assessment Indicates: Edentulous Subjective Comments: Pt does not wear dentures at home Objective - Diagnosis Sepsis, PNA, COPD Exacerbation, CHF - Objective % IBW: 116 (IBW = 118#) Energy Needs - Lower Range (kCal/kg): 25 Energy Needs - Upper Range (kCal/kg): 30 Lower Limit kCal/kg (kCals): 1,550 Upper Limit kCal/kg (kCals): 1,860 Lower Limit Protein Factor (Grams per Kg): 1.0 Upper Limit Protein Factor (Grams per Kg): 1.5 Lower Protein Needs (Protein): 62 Upper Protein Needs (Protein): 93 Dietitian Reviewed in Medical Record: Current diet, Curent medications, Intake & Output, Labs, Medical history, Tube feeding Diet Order: Soft thin liquids Oral Diet Intake Amount: Good 75-90% Speech Therapy Recommendations: Yes (Soft thin liquids) Objective Comments: reintubated on 01/07 Assessment Assessment: Pt. went into resp distress on 01/07 thus was intubated and sedated on a low dose of propofol. Recommend current TFing of Glucerna 1.5 @ goal rate of 45mls/ hr. Add Patrick BID to aid in wound healing. Monitor TFing tolerance, wound and labs. Recommendations: 1. Recommend current TFing of Glucerna 1.5 @ goal rate of 45mls/hr. 2. Add Patrick BID to aid in wound healing. 3. Monitor TFing tolerance, wound and labs. Dietitian to Monitor: Lab values, Intake & Output, Tube feeding tolerance, Weight change, Medical course
[2018-01-09] MEDS: Vancomycin Inj 1,250 MG in Sodium Chlor 0.9% Inj 250 ML IV.SIG SCH (20:52)
--- NOTE | 2018-01-09 21:00 | US ---
EXAM DATE: 01/09/2018 12:00 AM EDT AGE/SEX: 82 years / Male INDICATIONS: Abdominal pain. CLINICAL DATA: This is the patient's initial encounter. Patient reports that signs and symptoms have been present for 1 day and indicates a pain score of 2/10. MEDICAL/SURGICAL HISTORY: Chronic obstructive pulmonary disease. Diabetes. Kidney stones. Pneu mothorax. Lobectomy. Hernia repair. Hip surgery. COMPARISON: No prior exams available for comparison. MEASUREMENTS: Liver:__ 13.1 cm. Common Bile Duct:___ 4mm. Right Kidney:___9.1 x 4.2 x 4.6 cm. Left Kidney:___10.8 x 3.3 x 4.7 cm. Spleen:___11.1 cm. FINDINGS: Liver: Normal echotexture without focal lesion or ductal dilatation. Portal Vein: Hepatopedal flow seen in portal vein. Common Duct: No intraluminal mass or stone visualized. Gallbladder: Not visualized. Pancreas: Not well visualized. Right Kidney: Normal echotexture and cortical thickness. No mass or hydronephrosis. Left Kidney: Normal echotexture and cortical thickness. No hydronephrosis. 3.0 cm simple cyst seen l aterally. Ascites: Moderate amount of ascites in the right upper quadrant. Pleural Effusion: Bilateral Spleen: No focal lesion. Aorta: Not visualized. IVC: Not visualized. Other: None. CONCLUSION: 1. Limited examination due to obscuration by bowel gas. 2. Simple left renal cyst. 3. Moderate amount of ascites in the right upper quadrant. Electronically signed by: Maurilio Meredith MD 01/09/2018 8:58 PM EDT
[2018-01-10] MEDS: Oral Hygiene Kit OROPHARYNG SCH ×5 (01:22→23:57)
[2018-01-10] MEDS: Propofol 1000 mg/100 ml Inj 1,000 MG/100 ML BOTTLE IV.CONT PRN ×2 (02:23→16:17)
[2018-01-10] MEDS: MethylPREDNISolone Sod Succinate Inj 40 MG/ML Vial IV.PUSH SCH ×2 (05:17→13:25)
[2018-01-10 06:01] LABS: Baso % (Auto) 0.1 % (0.0-2.0); Hematocrit 23.2 % (39.0-51.0); Hemoglobin 7.9 gm/dL (13.0-17.0); Lymph # (Auto) 0.4 th/mm3 (1.0-4.8); Lymph % (Auto) 7.2 % (9.0-44.0); Mean Corpuscular Hemoglobin 30.6 pg (27.0-34.0); Mean Platelet Volume 9.3 fL (7.0-11.0); Mono # (Auto) 0.3 th/mm3 (0.0-0.9); Mono % (Auto) 5.5 % (0.0-8.0); Neut # (Auto) 4.4 th/mm3 (1.8-7.7); Neut % (Auto) 87.2 % (16.0-70.0); Platelet Count 67 th/mm3 (150-450); Red Blood Count 2.58 mil/mm3 (4.50-5.90); Red Cell Distribution Width 15.6 % (11.6-17.2)
[2018-01-10 06:40] LABS: Alanine Aminotransferase 52 U/L (12-78); Albumin 2.1 g/dL (3.4-5.0); Alkaline Phosphatase 231 U/L (45-117); Anion Gap 6 meq/L (5-15); Aspartate Aminotransferase 44 U/L (15-37); Blood Urea Nitrogen 50 mg/dL (7-18); Calcium 8.2 mg/dL (8.5-10.1); Carbon Dioxide 33.9 meq/L (21.0-32.0); Chloride 103 meq/L (98-107); Glomerular Filtration Rate 74 mL/min (>89); Glucose,Random 211 mg/dL (74-106); Magnesium 2.6 mg/dL (1.5-2.5); Phosphorus 2.1 mg/dL (2.5-4.9); Potassium 3.6 meq/L (3.5-5.1); Sodium 143 meq/L (136-145); Total Protein 5.3 g/dL (6.4-8.2)
--- NOTE | 2018-01-10 06:42 | XR ---
EXAM DATE: 01/10/2018 6:00 AM EDT AGE/SEX: 82 years / Male INDICATIONS: Shortness of breath, possible pulmonary disease. CLINICAL DATA: This is the patient's subsequent encounter. Patient reports that signs and symptoms h ave been present for 3 weeks and indicates a pain score of Nonresponsive. MEDICAL/SURGICAL HISTORY: Chronic obstructive pulmonary disease. Diabetes. Renal calculi. Lob ectomy. Hernia repair. Hip surgery. COMPARISON: [facility], CHEST 1V SINGLE AP, 01/08/2018. . FINDINGS: Endotracheal tube in good position. NG enters stomach. Stable to slight increase in right basilar air space disease since January 08. Left sided loculated pleural fluid and pleural thickening is stable w ith left basilar opacity. CONCLUSION: Stable to slight increase in right basilar airspace disease. Loculated left pleural fluid and left ba silar opacity are stable. Electronically signed by: Bo Main MD 01/10/2018 6:41 AM EDT
[2018-01-10] MEDS: Insulin NovoLIN Regular Correctional Sugar Inj SQ SCH ×3 (07:01→12:05)
[2018-01-10] MEDS: Chlorhexidine 0.12% Oral Kit 15 ML UDC OROPHARYNG SCH ×2 (07:50→20:44)
--- NOTE | 2018-01-10 08:06 | P.PNCC ---
Subjective Subjective Remarks/Hospital Course: 82-year-old male with past medical history of COPD and CHF presents for an evaluation of shortness of breath and hypoxemia worsening over past few days. The nebulizer treatments helped initially however today there were not helpful. EMS reports on scene the O2 sat was in the 80s. He received high flow oxygen and nebulized albuterol in route here. His blood pressure initially in the emergency department was 200/100 however trended down to about 160/90. BiPAP was started in the emergency department with improvement in his O2 sat that has trended towards the high 90s with 100% FiO2 on BiPAP. Shortly after transfer to ICU the patient continues to to be more hypoxemic and restless requiring endotracheal intubation and mechanical ventilation. 12/20: intubated and sedated. still hypercarbic with [id number] respiratory acidosis. family unhappy that patient was intubated: they insisted last night on being a Full Code, but apparently the daughter required that she be notified of exactly what SpO2 the patient was at, and it had to reach a certain low level before she would be ok with intubation. Per overnight records , patient presented with severe respiratory distress, and family reports that EMS stated patient "wouldn't make it all the way to [facility]" due to his pulmonary instability. This morning, hypoxia is somewhat improved. remains on broad spectrum antibiotics. I explained to family that this is likely a new pneumonia causing respiratory failure. I also explained that after recent hip fracture and recent prolonged hospitalization, his baseline end-stage lung disease and NYHA Class IV symptoms are likely to worsen, and this may be worsening of his overall end-stage disease processes. Family continues to state that our facility caused his lung failure during the prior hospitalization. They are also concerned about his poor peripheral perfusion and oliguria, which concerns me also: I explained that his heart failure could not tolerate significant amount of iv fluids, and we have already given him 1500mL over the last 12 hours, but they have insisted on additional iv fluids. I explained he had severe sepsis and the mortality associated with this. Daughter continues to remind me that her father "is coming home with her and getting better" as she has stated multiple times in the past. 12/21: no improvements. remains intubated. clinically becoming volume overloaded - will be forced to start diuresis. 12/22: mental status slightly improved. still failing weaning attempts. 12/23: Afebrile. Currently on PSV trial 15/7 at 45%. Discussed with and daughter at bedside. Chest x-ray revealed ET tube at [place]. Retracted 1 cm. Tolerating tube feeds with family requested 40 cc an hour. Subjective: 12/24: Afebrile. Currently CPAP trial FiO2 at 45%. Tolerating tube feeds if family requested 40 cc an hour. Receiving morphine 1-2 mg every 4 hours as needed pain. 12/25 No events overnight remains intubated off sedation. Tolerated CPAP for several hrs yesterday. Afebrile. 12/26 No events overnight. Patient tolerated CPAP for most of day yesterday. Awake and alert follows commands, on no sedation. 12/27 Patient was extubated yesterday on 4L oxygen. Awake. Afebrile. 12/28 No events overnight. Remains on 4L oxygen. Awake and alert. 12/30: RECONSULT NOTE: reconsulted as rapid response for hypoxia. per the family , patient had desaturation episode to the 60s, placed on NRB. family insisted on transfer back to ICU. when I saw patient on arrival to ICU, patient spo2 99% on NRB. pao2 on NRB was 150. patient is well-known to me with baseline spo2 82- 86% on 5L o2 by NC at home. family states he has another pneumonia. on my review of CXR and lab evidence, unclear if this is new pneumonia vs. old chronic lung disease. patient denies sob or new symptoms. 12/31: no changes. remains on simple mask at 6LPM. not in distress. family does not want to leave ICU and wants to continue ICU care for the remainder of the hospitalization. long discussion about needing to de-escalate level of care prior to hospital discharge. 01/07 Reconsult for Resp. distress. Patient was placed on BIPAP with 60% FIO2. ABG this morning showed some improvements in his resp acidosis with PH:7.34, CO2 72 from 82. CXR from 16/[address] chest today. 01/08 Patient was intubated this morning for worsening resp acidosis. CT chest yesterday showed pneumonia/aspiration. On Diprivan for sedation. Afebrile. 01/09 Patient is intubated and on low dose Diprivan drip. Afebrile. 01/10 Patient remains intubated. Awake, tolerated CPAP for most of day yesterday. Afebrile. Objective Vital Signs / I&O: Vital Signs 01/09/18 08:00 01/09/18 08:31 01/09/18 12:00 Temperature 98.7 F 98.9 F Pulse Rate 95 H 87 87 Respiratory Rate 19 18 19 Blood Pressure 147/66 H 139/65 Pulse Oximetry 93 L 94 L 01/09/18 12:09 01/09/18 16:00 01/09/18 16:39 Temperature 99.0 F Pulse Rate 85 Respiratory Rate 18 20 24 Blood Pressure 116/57 L Pulse Oximetry 91 L 93 L 92 L 01/09/18 19:48 01/09/18 19:52 01/09/18 20:00 Temperature 98.1 F Pulse Rate 84 85 Respiratory Rate 23 19 24 Blood Pressure 132/63 Pulse Oximetry 95 95 01/09/18 22:59 01/10/18 00:00 01/10/18 00:37 Temperature 98.5 F Pulse Rate 90 88 Respiratory Rate 18 25 H 21 Blood Pressure 121/58 L Pulse Oximetry 95 95 01/10/18 04:00 01/10/18 04:12 01/10/18 04:15 Temperature 98.1 F Pulse Rate 79 84 Respiratory Rate 16 17 19 Blood Pressure 129/61 Pulse Oximetry 96 95 Intake & Output 01/09/18 01/10/18 01/10/18 18:59 06:59 18:59 Intake Total 300 / 300 762.5 / 762.5 Output Total 650 / 650 250 / 250 Balance -350 / -350 512.5 / 512.5 Weight 74 kg Intake: IV 200 / 200 562.5 / 562.5 Diprivan 1000 mg/100 ml Inj 1, 100 / 100 100 / 100 000 mg In 100 ml @ 5 MCG/KG/MIN 2.22 mls/hr IV.CONT TITRATE PRN Rx#:[id number] Merrem Inj 1,000 MG In NS Inj 100 / 100 200 / 200 100 ML @ 200 mls/hr IV.SIG Q8H NOAH Rx#:[id number] Vancomycin Inj 1,250 MG In NS 262.5 / 262.5 Inj 250 ML @ 250 mls/hr IV.SIG Q24H NOAH Rx#:[id number] Tube Feeding 100 / 100 200 / 200 Output: Urine 650 / 650 250 / 250 Other: # Incontinent Voids 1 # Bowel Movements 2 0 Result Diagrams: 01/10/18 04:28 01/10/18 04:28 Other Results: Laboratory Results - last 12 hr 01/09/18 01/10/18 01/10/18 23:52 04:28 04:28 WBC 5.0 RBC 2.58 L Hgb 7.9 L Hct 23.2 L MCV 90.0 MCH 30.6 MCHC 34.0 RDW 15.6 Plt Count 67 L MPV 9.3 Prelim Diff (Auto) Slide review pending Neut % (Auto) 87.2 H Lymph % (Auto) 7.2 L [place] % (Auto) 5.5 Eos % (Auto) 0.0 Baso % (Auto) 0.1 Neut # (Auto) 4.4 Lymph # (Auto) 0.4 L [place] # (Auto) 0.3 Eos # (Auto) 0.0 Baso # (Auto) 0.0 Differential Comment . Sodium 143 Potassium 3.6 Chloride 103 Carbon Dioxide 33.9 H Anion Gap 6 BUN 50 H Creatinine 0.97 Estimated GFR 74 L POC Glucose 218 H Random Glucose 211 H Calcium 8.2 L Phosphorus 2.1 L Magnesium 2.6 H Total Bilirubin 0.4 AST 44 H ALT 52 Alkaline Phosphatase 231 H Total Protein 5.3 L Albumin 2.1 L Imaging: Abdomen X-Ray 01/01/18 00:00 CONCLUSION: 1. No bowel obstruction, ileus or perforation. 2. Degenerative changes and scoliosis of the lumbar spine. Chest CT 01/07/18 00:00 CONCLUSION: 1. Postsurgical features of suspected previous left-sided lobectomy with volume loss and mediastinal shift to the left. 2. Bulky left-sided pleural plaques with chronic appearing small to moderate sized loculated left pleural effusion. 3. Dense airspace consolidation in the superior segment of the right lower lobe with patchy interstitial and groundglass opacities throughout the right lower lobe. Differential considerations include pneumonia and aspiration in the appropriate clinical setting. 4. Trace right-sided pleural effusion with fluid extending into the major fissure. 5. Mild coronary artery calcifications. 6. Small amount of ascites in the visualized upper abdomen. Abdomen Ultrasound 01/09/18 00:00 CONCLUSION: 1. Limited examination due to obscuration by bowel gas. 2. Simple left renal cyst. 3. Moderate amount of ascites in the right upper quadrant. Chest X-Ray 01/10/18 06:00 CONCLUSION: Stable to slight increase in right basilar airspace disease. Loculated left pleural fluid and left basilar opacity are stable. Objective Remarks: GENERAL: 82-year-old male lying in bed in mild resp distress. HEENT: Normocephalic. Atraumatic. Pupils equal, round, reactive, conjugate. Mucous membranes are moist NECK: Trachea is midline. No JVD, orally intubated with ETT 7.5cm CHEST: B/l equal air entry, diminished at bases CARDIOVASCULAR: Normal rate, regular rhythm. sinus. ABDOMEN: Soft, nontender, nondistended. No guarding. MUSCULOSKELETAL: Pulses 2+. significant evidence of scrotal edema. 1+ peripheral edema. No mottling NEUROLOGICAL: Intubated,sedated Assessment and Plan - Assessment and Plan Plan: Neuro: Acute metabolic encephalopathy- resolved Diprivan infusion for sedation.Daily sedation vacation. Monitor neuro status. 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 SBT daily. Will likely need trach/PEG tube placement. Continue Solumederol 40 mg IV Q6 Pulmonary is following- Dr. Lazcano CT chest: Postsurgical features of suspected previous left-sided lobectomy with volume loss and mediastinal shift to the left. Bulky left-sided pleural plaques with chronic appearing small to moderate sized loculated left pleural effusion. Dense airspace consolidation in the superior segment of the right lower lobe with patchy interstitial and groundglass opacities throughout the right lower lobe. 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 Normal left ventricular size. Wall thickness is normal. No regional wall motion abnormalities are present. Diffuse calcification of the aortic valve but no significant stenosis. There is mild to moderate tricuspid valve regurgitation. The estimated pulmonary arterial pressure is 76.9 mmHg with severe pulmonary hypertension. Continue furosemide 40 mg daily/home medication: As needed labetalol and Nitropaste for hypertension Renal/: History of nephrolithiasis Monitor renal function, I/O's, electrolytes replacement per protocol. On Lasix 40mg daily FEN/GI: Severe acute protein calorie malnutrition On tube feeds- Glucerna 1.5 with goal rate 45ml/hr currently @30ml/hr Lansoprazole for GI prophylaxis Docusate sodium/senna 1 tablet twice daily for bowel regimen GI is following US abdomen: Limited exam due to obscuration by bowel gas.Simple left renal cyst. small ascites in the right upper quadrant. ID: Healthcare associated pneumonia Severe sepsis- present on admission Normocytic anemia Thrombocytopenia Abx per ID (Merrem, Vanco) Monitor for signs of infections ( Fever, WBC) Follow up on sputum 01/08 normal resp vaishnavi Sputum culture 12/20-shea resp vaishnavi Blood cultures 12/19 no growth Urine UA with urine culture 12/20-NGTD Negative Legionella and pneumococcal urinary antigens Endocrine: Hyperglycemia of critical illness -- SSI to maintain euglycemia with aspart insulin every 6 hours. Hold Levemir Heme: Anemia Thrombocytopenia Monitor CBC, Hep PLT ab negative MSK:: History of left IT nailing 11/14 Vitamin D deficiency PT evaluate and treat Prophylaxis: GI Prophylaxis Lansoprazole DVT Prophylaxis -- SCDs - Enoxaparin held for anemia, thrombocytopenia and Hemoccult positive Lines: Peripheral IVs Discussed with patient's and updated her on his condition. CCT 35 mins
[2018-01-10] MEDS: Budesonide-Formoterol 160/4.5 MCG 6 GM Inhaler INH SCH ×2 (09:02→21:39)
[2018-01-10] MEDS: Potassium Phosphate 500 MG Soluble Tablet PO PRN ×2 (09:02→13:28)
[2018-01-10] MEDS: Carboxymethylcellulose 0.5% Opth Drops 15 ML Bottle EACH EYE SCH ×2 (09:02→20:45)
[2018-01-10] MEDS: Furosemide 40 MG Tablet PO SCH (09:02)
--- NOTE | 2018-01-10 12:04 | P.PNGI ---
Subjective Interval history: Pt is alert on the vent, accompanied by family. No bleeding reported, tolerating TF okay <Gayatri Kang - Last Filed: 01/10/18 11:51> Physical Exam Vital signs: Vital Signs 01/09/18 12:00 01/09/18 12:09 01/09/18 16:00 Temperature 98.9 F 99.0 F Pulse Rate 87 85 Respiratory Rate 19 18 20 Blood Pressure 139/65 116/57 L Pulse Oximetry 94 L 91 L 93 L 01/09/18 16:39 01/09/18 19:48 01/09/18 19:52 Temperature Pulse Rate 84 Respiratory Rate 24 23 19 Blood Pressure Pulse Oximetry 92 L 95 01/09/18 20:00 01/09/18 22:59 01/10/18 00:00 Temperature 98.1 F 98.5 F Pulse Rate 85 90 88 Respiratory Rate 24 18 25 H Blood Pressure 132/63 121/58 L Pulse Oximetry 95 95 01/10/18 00:37 01/10/18 04:00 01/10/18 04:12 Temperature 98.1 F Pulse Rate 79 Respiratory Rate 21 16 17 Blood Pressure 129/61 Pulse Oximetry 95 96 95 01/10/18 04:15 01/10/18 08:00 01/10/18 08:50 Temperature 98.7 F Pulse Rate 84 90 Respiratory Rate 19 18 18 Blood Pressure 138/65 Pulse Oximetry 94 L 01/10/18 08:52 Temperature Pulse Rate 85 Respiratory Rate 17 Blood Pressure Pulse Oximetry Intake & Output 01/09/18 01/10/18 01/10/18 18:59 06:59 18:59 Intake Total 300 / 300 762.5 / 762.5 100 / 100 Output Total 650 / 650 250 / 250 Balance -350 / -350 512.5 / 512.5 100 / 100 Weight 74 kg Intake: IV 200 / 200 562.5 / 562.5 100 / 100 Diprivan 1000 mg/100 ml Inj 1, 100 / 100 100 / 100 000 mg In 100 ml @ 5 MCG/KG/MIN 2.22 mls/hr IV.CONT TITRATE PRN Rx#:[id number] Merrem Inj 1,000 MG In NS Inj 100 / 100 200 / 200 100 / 100 100 ML @ 200 mls/hr IV.SIG Q8H NOAH Rx#:[id number] Vancomycin Inj 1,250 MG In NS 262.5 / 262.5 Inj 250 ML @ 250 mls/hr IV.SIG Q24H NOAH Rx#:[id number] Tube Feeding 100 / 100 200 / 200 Output: Urine 650 / 650 250 / 250 Other: # Incontinent Voids 1 # Bowel Movements 2 0 Narrative: General:Elderly, Awake and in no distress. On a ventilator and Intubated. Cardiovascular: RRR Respiratory : wheezes and decreased breath sounds bilateral. Abdomen: soft, nontender, positive bowel sounds. Extremities: 1 + pitting edema bilateral lower extremities. Neuro:Alert - Urinary Catheter Management Straight Cath placed during this visit: yes, but has since been removed by the nurse Reason for continuing: Not indwelling catheter Insertion date: 12/23/17 Insertion time: 01:00 Removal date: 12/22/17 Removal time: 01:00 Condom Cath placed during this visit: no <Gayatri Kang - Last Filed: 01/10/18 11:51> Vital signs: Vital Signs 01/09/18 16:00 01/09/18 16:39 01/09/18 19:48 Temperature 99.0 F Pulse Rate 85 Respiratory Rate 20 24 23 Blood Pressure 116/57 L Pulse Oximetry 93 L 92 L 95 01/09/18 19:52 01/09/18 20:00 01/09/18 22:59 Temperature 98.1 F Pulse Rate 84 85 90 Respiratory Rate 19 24 18 Blood Pressure 132/63 Pulse Oximetry 95 01/10/18 00:00 01/10/18 00:37 01/10/18 04:00 Temperature 98.5 F 98.1 F Pulse Rate 88 79 Respiratory Rate 25 H 21 16 Blood Pressure 121/58 L 129/61 Pulse Oximetry 95 95 96 01/10/18 04:12 01/10/18 04:15 01/10/18 08:00 Temperature 98.7 F Pulse Rate 84 90 Respiratory Rate 17 19 18 Blood Pressure 138/65 Pulse Oximetry 95 94 L 01/10/18 08:50 01/10/18 08:52 01/10/18 12:00 Temperature 98.4 F Pulse Rate 85 81 Respiratory Rate 18 17 16 Blood Pressure 129/80 Pulse Oximetry 98 01/10/18 12:10 01/10/18 12:11 Temperature Pulse Rate 80 Respiratory Rate 16 16 Blood Pressure Pulse Oximetry Intake & Output 01/09/18 01/10/18 01/10/18 18:59 06:59 18:59 Intake Total 300 / 300 762.5 / 762.5 100 / 100 Output Total 650 / 650 250 / 250 Balance -350 / -350 512.5 / 512.5 100 / 100 Weight 74 kg Intake: IV 200 / 200 562.5 / 562.5 100 / 100 Diprivan 1000 mg/100 ml Inj 1, 100 / 100 100 / 100 000 mg In 100 ml @ 5 MCG/KG/MIN 2.22 mls/hr IV.CONT TITRATE PRN Rx#:[id number] Merrem Inj 1,000 MG In NS Inj 100 / 100 200 / 200 100 / 100 100 ML @ 200 mls/hr IV.SIG Q8H NOAH Rx#:[id number] Vancomycin Inj 1,250 MG In NS 262.5 / 262.5 Inj 250 ML @ 250 mls/hr IV.SIG Q24H NOAH Rx#:[id number] Tube Feeding 100 / 100 200 / 200 Output: Urine 650 / 650 250 / 250 Other: # Incontinent Voids 1 # Bowel Movements 2 0 - Urinary Catheter Management Straight Cath placed during this visit: no Condom Cath placed during this visit: no <Kelly Aranda - Last Filed: 01/10/18 13:29> Results - Labs CBC & Chem 7: 01/10/18 04:28 01/10/18 04:28 Laboratory Results - last 24 hr 01/09/18 01/09/18 01/09/18 11:45 12:43 17:47 WBC RBC Hgb 8.4 L Hct 25.1 L MCV MCH MCHC RDW Plt Count MPV Prelim Diff (Auto) Neut % (Auto) Lymph % (Auto) [place] % (Auto) Eos % (Auto) Baso % (Auto) Neut # (Auto) Lymph # (Auto) [place] # (Auto) Eos # (Auto) Baso # (Auto) WBC Differential Diff Scan Differential Comment Sodium Potassium Chloride Carbon Dioxide Anion Gap BUN Creatinine Estimated GFR POC Glucose 305 H 200 H Random Glucose Calcium Phosphorus Magnesium Total Bilirubin AST ALT Alkaline Phosphatase Total Protein Albumin 01/09/18 01/10/18 01/10/18 23:52 04:28 04:28 WBC 5.0 RBC 2.58 L Hgb 7.9 L Hct 23.2 L MCV 90.0 MCH 30.6 MCHC 34.0 RDW 15.6 Plt Count 67 L MPV 9.3 Prelim Diff (Auto) Slide review pending Neut % (Auto) 87.2 H Lymph % (Auto) 7.2 L [place] % (Auto) 5.5 Eos % (Auto) 0.0 Baso % (Auto) 0.1 Neut # (Auto) 4.4 Lymph # (Auto) 0.4 L [place] # (Auto) 0.3 Eos # (Auto) 0.0 Baso # (Auto) 0.0 WBC Differential . Diff Scan Auto diff confirmed Differential Comment . Sodium 143 Potassium 3.6 Chloride 103 Carbon Dioxide 33.9 H Anion Gap 6 BUN 50 H Creatinine 0.97 Estimated GFR 74 L POC Glucose 218 H Random Glucose 211 H Calcium 8.2 L Phosphorus 2.1 L Magnesium 2.6 H Total Bilirubin 0.4 AST 44 H ALT 52 Alkaline Phosphatase 231 H Total Protein 5.3 L Albumin 2.1 L Microbiology 01/08/18 09:11 Sputum - Endotracheal Gram Stain - Final 01/08/18 09:11 Sputum - Endotracheal Sputum Culture - Preliminary Heavy growth normal respiratory vaishnavi at 24 hours - Imaging Impressions Abdomen Ultrasound 01/09/18 00:00 CONCLUSION: 1. Limited examination due to obscuration by bowel gas. 2. Simple left renal cyst. 3. Moderate amount of ascites in the right upper quadrant. Chest X-Ray 01/10/18 06:00 CONCLUSION: Stable to slight increase in right basilar airspace disease. Loculated left pleural fluid and left basilar opacity are stable. <Gayatri Kang - Last Filed: 01/10/18 11:51> - Labs CBC & Chem 7: 01/10/18 04:28 01/10/18 04:28 Laboratory Results - last 24 hr 01/09/18 01/09/18 01/10/18 17:47 23:52 04:28 WBC RBC Hgb Hct MCV MCH MCHC RDW Plt Count MPV Prelim Diff (Auto) Neut % (Auto) Lymph % (Auto) [place] % (Auto) Eos % (Auto) Baso % (Auto) Neut # (Auto) Lymph # (Auto) [place] # (Auto) Eos # (Auto) Baso # (Auto) WBC Differential Diff Scan Differential Comment Sodium 143 Potassium 3.6 Chloride 103 Carbon Dioxide 33.9 H Anion Gap 6 BUN 50 H Creatinine 0.97 Estimated GFR 74 L POC Glucose 200 H 218 H Random Glucose 211 H Calcium 8.2 L Phosphorus 2.1 L Magnesium 2.6 H Total Bilirubin 0.4 AST 44 H ALT 52 Alkaline Phosphatase 231 H Total Protein 5.3 L Albumin 2.1 L 01/10/18 01/10/18 04:28 11:56 WBC 5.0 RBC 2.58 L Hgb 7.9 L Hct 23.2 L MCV 90.0 MCH 30.6 MCHC 34.0 RDW 15.6 Plt Count 67 L MPV 9.3 Prelim Diff (Auto) Slide review pending Neut % (Auto) 87.2 H Lymph % (Auto) 7.2 L [place] % (Auto) 5.5 Eos % (Auto) 0.0 Baso % (Auto) 0.1 Neut # (Auto) 4.4 Lymph # (Auto) 0.4 L [place] # (Auto) 0.3 Eos # (Auto) 0.0 Baso # (Auto) 0.0 WBC Differential . Diff Scan Auto diff confirmed Differential Comment . Sodium Potassium Chloride Carbon Dioxide Anion Gap BUN Creatinine Estimated GFR POC Glucose 306 H Random Glucose Calcium Phosphorus Magnesium Total Bilirubin AST ALT Alkaline Phosphatase Total Protein Albumin Microbiology 01/08/18 09:11 Sputum - Endotracheal Gram Stain - Final 01/08/18 09:11 Sputum - Endotracheal Sputum Culture - Final Heavy growth normal respiratory vaishnavi - Imaging Impressions Abdomen Ultrasound 01/09/18 00:00 CONCLUSION: 1. Limited examination due to obscuration by bowel gas. 2. Simple left renal cyst. 3. Moderate amount of ascites in the right upper quadrant. Chest X-Ray 01/10/18 06:00 CONCLUSION: Stable to slight increase in right basilar airspace disease. Loculated left pleural fluid and left basilar opacity are stable. <Kelly Aranda - Last Filed: 01/10/18 13:29> Assessment and Plan - Plan - Anemia- likely multifactorial, no bleeding reported hgb today 7.9 - Elevated ALP/thrombocytopenia - No previous hx of liver dz, used to be drinker in the remote past This could be secondary to cardiac etiology vs liver dz Abdomen Ultrasound 01/09/18 1. Limited examination due to obscuration by bowel gas. 2. Simple left renal cyst. 3. Moderate amount of ascites in the right upper quadrant. - Ascites- No previous hx of liver dz, used to be drinker in the remote past This could be secondary to cardiac etiology vs liver dz He is on Lasix - COPD - Respiratory failure- intubated now - HCAP - congestive heart failure secondary to pulmonary hypertension Plan: - TF - Discussed with doing paracentesis for diagnostic purposes but would like to discuss with family first - Consider EGD if family agrees - Monitor hh - Transfuse as needed - Cont PPI - Pt seen and examined by Dr. Aranda and myself and this note is written on her behalf <Gayatri Kang - Last Filed: 01/10/18 11:51> - Attending Attestation seen, examined agree with above <Kelly Aranda - Last Filed: 01/10/18 13:29>
--- NOTE | 2018-01-10 13:31 | P.PN ---
Subjective Interval history: Stable on the vent and awake. On tube feeds . CXR shows basal infiltrates. Physical Exam Vital signs: Vital Signs 01/09/18 16:00 01/09/18 16:39 01/09/18 19:48 Temperature 99.0 F Pulse Rate 85 Respiratory Rate 20 24 23 Blood Pressure 116/57 L Pulse Oximetry 93 L 92 L 95 01/09/18 19:52 01/09/18 20:00 01/09/18 22:59 Temperature 98.1 F Pulse Rate 84 85 90 Respiratory Rate 19 24 18 Blood Pressure 132/63 Pulse Oximetry 95 01/10/18 00:00 01/10/18 00:37 01/10/18 04:00 Temperature 98.5 F 98.1 F Pulse Rate 88 79 Respiratory Rate 25 H 21 16 Blood Pressure 121/58 L 129/61 Pulse Oximetry 95 95 96 01/10/18 04:12 01/10/18 04:15 01/10/18 08:00 Temperature 98.7 F Pulse Rate 84 90 Respiratory Rate 17 19 18 Blood Pressure 138/65 Pulse Oximetry 95 94 L 01/10/18 08:50 01/10/18 08:52 01/10/18 12:00 Temperature 98.4 F Pulse Rate 85 81 Respiratory Rate 18 17 16 Blood Pressure 129/80 Pulse Oximetry 98 01/10/18 12:10 01/10/18 12:11 Temperature Pulse Rate 80 Respiratory Rate 16 16 Blood Pressure Pulse Oximetry Intake & Output 01/09/18 01/10/18 01/10/18 18:59 06:59 18:59 Intake Total 300 / 300 762.5 / 762.5 100 / 100 Output Total 650 / 650 250 / 250 Balance -350 / -350 512.5 / 512.5 100 / 100 Weight 74 kg Intake: IV 200 / 200 562.5 / 562.5 100 / 100 Diprivan 1000 mg/100 ml Inj 1, 100 / 100 100 / 100 000 mg In 100 ml @ 5 MCG/KG/MIN 2.22 mls/hr IV.CONT TITRATE PRN Rx#:[id number] Merrem Inj 1,000 MG In NS Inj 100 / 100 200 / 200 100 / 100 100 ML @ 200 mls/hr IV.SIG Q8H [facility] Rx#:[id number] Vancomycin Inj 1,250 MG In NS 262.5 / 262.5 Inj 250 ML @ 250 mls/hr IV.SIG Q24H [facility] Rx#:[id number] Tube Feeding 100 / 100 200 / 200 Output: Urine 650 / 650 250 / 250 Other: # Incontinent Voids 1 # Bowel Movements 2 0 Narrative: General:Elderly W/m , Awake and in no distress. HEENT:PERRL. Throat clear. Cardiovascular: RRR, no murmur Respiratory : wheezes and decreased breath sounds bilateral. Abdomen: soft, nontender, positive bowel sounds. Extremities: 1 + pitting edema bilateral lower extremities. Neuro:Alert and moves extremities. - Urinary Catheter Management Straight Cath placed during this visit: yes, but has since been removed by the nurse Reason for continuing: Not indwelling catheter Insertion date: 12/23/17 Insertion time: 01:00 Removal date: 12/22/17 Removal time: 01:00 Condom Cath placed during this visit: no Results - Labs CBC & Chem 7: 01/10/18 04:28 01/10/18 04:28 Laboratory Results - last 24 hr 01/09/18 01/09/18 01/10/18 17:47 23:52 04:28 WBC RBC Hgb Hct MCV MCH MCHC RDW Plt Count MPV Prelim Diff (Auto) Neut % (Auto) Lymph % (Auto) [place] % (Auto) Eos % (Auto) Baso % (Auto) Neut # (Auto) Lymph # (Auto) [place] # (Auto) Eos # (Auto) Baso # (Auto) WBC Differential Diff Scan Differential Comment Sodium 143 Potassium 3.6 Chloride 103 Carbon Dioxide 33.9 H Anion Gap 6 BUN 50 H Creatinine 0.97 Estimated GFR 74 L POC Glucose 200 H 218 H Random Glucose 211 H Calcium 8.2 L Phosphorus 2.1 L Magnesium 2.6 H Total Bilirubin 0.4 AST 44 H ALT 52 Alkaline Phosphatase 231 H Total Protein 5.3 L Albumin 2.1 L 01/10/18 01/10/18 04:28 11:56 WBC 5.0 RBC 2.58 L Hgb 7.9 L Hct 23.2 L MCV 90.0 MCH 30.6 MCHC 34.0 RDW 15.6 Plt Count 67 L MPV 9.3 Prelim Diff (Auto) Slide review pending Neut % (Auto) 87.2 H Lymph % (Auto) 7.2 L [place] % (Auto) 5.5 Eos % (Auto) 0.0 Baso % (Auto) 0.1 Neut # (Auto) 4.4 Lymph # (Auto) 0.4 L [place] # (Auto) 0.3 Eos # (Auto) 0.0 Baso # (Auto) 0.0 WBC Differential . Diff Scan Auto diff confirmed Differential Comment . Sodium Potassium Chloride Carbon Dioxide Anion Gap BUN Creatinine Estimated GFR POC Glucose 306 H Random Glucose Calcium Phosphorus Magnesium Total Bilirubin AST ALT Alkaline Phosphatase Total Protein Albumin Microbiology 01/08/18 09:11 Sputum - Endotracheal Gram Stain - Final 01/08/18 09:11 Sputum - Endotracheal Sputum Culture - Final Heavy growth normal respiratory vaishnavi - Imaging Impressions Abdomen Ultrasound 01/09/18 00:00 CONCLUSION: 1. Limited examination due to obscuration by bowel gas. 2. Simple left renal cyst. 3. Moderate amount of ascites in the right upper quadrant. Chest X-Ray 01/10/18 06:00 CONCLUSION: Stable to slight increase in right basilar airspace disease. Loculated left pleural fluid and left basilar opacity are stable. Assessment and Plan - Assessment (1) Respiratory failure requiring intubation Code(s): J96.90 - Respiratory failure, unspecified, unspecified whether with hypoxia or hypercapnia Status: Acute (2) Pneumonia Code(s): J18.9 - Pneumonia, unspecified organism Status: Acute (3) CHF (congestive heart failure), NYHA class II Code(s): I50.9 - Heart failure, unspecified Status: Acute (4) CHF (congestive heart failure) Code(s): I50.9 - Heart failure, unspecified Status: Acute (5) Respiratory abnormalities Code(s): J98.9 - Respiratory disorder, unspecified Status: Acute (6) Emphysema of lung Code(s): J43.9 - Emphysema, unspecified Status: Acute (7) Borderline diabetes mellitus Code(s): R73.03 - Prediabetes Status: Acute (8) Fracture, intertrochanteric, left femur Code(s): S72.142A - Displaced intertrochanteric fracture of left femur, initial encounter for closed fracture Status: Acute (9) Nutrition, metabolism, and development symptoms Code(s): R63.8 - Other symptoms and signs concerning food and fluid intake Status: Acute - Plan RECOMMENDATIONS: 1. Ventilator support and wean FIO2 to keep sat >92 2. Bronchodilators ,DuoNeb q.6 hr. 3. D/W family here. 4. D/C Solumedrol 5. Continue with Lasix 40 mg daily. 6. Cont antibiotics per ID. 7.,CPAP trial daily 8. Add prednisone 10 mg BID
[2018-01-10] MEDS ORDERED: Dextrose 50% in Water 50 ML Vial IV.PUSH PRN (17:40)
[2018-01-10] MEDS ORDERED: Pharmacy Ordered Lab Info OTHER ONE (19:45)
[2018-01-10] MEDS: Insulin NovoLOG Aspart Correctional Sugar Inj SQ SCH ×2 (20:44→23:56)
[2018-01-10] MEDS: predniSONE 10 MG Tablet PO SCH (20:44)
[2018-01-10] MEDS: Vancomycin Inj 1,250 MG in Sodium Chlor 0.9% Inj 250 ML IV.SIG SCH (20:44)
[2018-01-10] MEDS ORDERED: Insulin Detemir Inj 1,000 UNIT/10 ML Vial SQ SCH (21:00)
[2018-01-11] MEDS: Oral Hygiene Kit OROPHARYNG SCH ×3 (04:00→16:50)
[2018-01-11] MEDS: Insulin NovoLOG Aspart Correctional Sugar Inj SQ SCH ×5 (05:39→21:30)
[2018-01-11 07:20] LABS: Albumin 2.2 g/dL (3.4-5.0); Anion Gap 8 meq/L (5-15); Aspartate Aminotransferase 67 U/L (15-37); Blood Urea Nitrogen 52 mg/dL (7-18); Calcium 7.9 mg/dL (8.5-10.1); Carbon Dioxide 30.1 meq/L (21.0-32.0); Chloride 106 meq/L (98-107); Glomerular Filtration Rate 69 mL/min (>89); Glucose,Random 269 mg/dL (74-106); Magnesium 2.6 mg/dL (1.5-2.5); Sodium 144 meq/L (136-145)
[2018-01-11 07:21] LABS: Alanine Aminotransferase 78 U/L (12-78); Phosphorus 2.5 mg/dL (2.5-4.9)
[2018-01-11 07:24] LABS: Alkaline Phosphatase 272 U/L (45-117); Total Protein 5.6 g/dL (6.4-8.2)
--- NOTE | 2018-01-11 07:40 | P.PNCC ---
Subjective Subjective Remarks/Hospital Course: 82-year-old male with past medical history of COPD and CHF presents for an evaluation of shortness of breath and hypoxemia worsening over past few days. The nebulizer treatments helped initially however today there were not helpful. EMS reports on scene the O2 sat was in the 80s. He received high flow oxygen and nebulized albuterol in route here. His blood pressure initially in the emergency department was 200/100 however trended down to about 160/90. BiPAP was started in the emergency department with improvement in his O2 sat that has trended towards the high 90s with 100% FiO2 on BiPAP. Shortly after transfer to ICU the patient continues to to be more hypoxemic and restless requiring endotracheal intubation and mechanical ventilation. 12/20: intubated and sedated. still hypercarbic with [id number] respiratory acidosis. family unhappy that patient was intubated: they insisted last night on being a Full Code, but apparently the daughter required that she be notified of exactly what SpO2 the patient was at, and it had to reach a certain low level before she would be ok with intubation. Per overnight records , patient presented with severe respiratory distress, and family reports that EMS stated patient "wouldn't make it all the way to [facility]" due to his pulmonary instability. This morning, hypoxia is somewhat improved. remains on broad spectrum antibiotics. I explained to family that this is likely a new pneumonia causing respiratory failure. I also explained that after recent hip fracture and recent prolonged hospitalization, his baseline end-stage lung disease and NYHA Class IV symptoms are likely to worsen, and this may be worsening of his overall end-stage disease processes. Family continues to state that our facility caused his lung failure during the prior hospitalization. They are also concerned about his poor peripheral perfusion and oliguria, which concerns me also: I explained that his heart failure could not tolerate significant amount of iv fluids, and we have already given him 1500mL over the last 12 hours, but they have insisted on additional iv fluids. I explained he had severe sepsis and the mortality associated with this. Daughter continues to remind me that her father "is coming home with her and getting better" as she has stated multiple times in the past. 12/21: no improvements. remains intubated. clinically becoming volume overloaded - will be forced to start diuresis. 12/22: mental status slightly improved. still failing weaning attempts. 12/23: Afebrile. Currently on PSV trial 15/7 at 45%. Discussed with and daughter at bedside. Chest x-ray revealed ET tube at [place]. Retracted 1 cm. Tolerating tube feeds with family requested 40 cc an hour. Subjective: 12/24: Afebrile. Currently CPAP trial FiO2 at 45%. Tolerating tube feeds if family requested 40 cc an hour. Receiving morphine 1-2 mg every 4 hours as needed pain. 12/25 No events overnight remains intubated off sedation. Tolerated CPAP for several hrs yesterday. Afebrile. 12/26 No events overnight. Patient tolerated CPAP for most of day yesterday. Awake and alert follows commands, on no sedation. 12/27 Patient was extubated yesterday on 4L oxygen. Awake. Afebrile. 12/28 No events overnight. Remains on 4L oxygen. Awake and alert. 12/30: RECONSULT NOTE: reconsulted as rapid response for hypoxia. per the family , patient had desaturation episode to the 60s, placed on NRB. family insisted on transfer back to ICU. when I saw patient on arrival to ICU, patient spo2 99% on NRB. pao2 on NRB was 150. patient is well-known to me with baseline spo2 82- 86% on 5L o2 by NC at home. family states he has another pneumonia. on my review of CXR and lab evidence, unclear if this is new pneumonia vs. old chronic lung disease. patient denies sob or new symptoms. 12/31: no changes. remains on simple mask at 6LPM. not in distress. family does not want to leave ICU and wants to continue ICU care for the remainder of the hospitalization. long discussion about needing to de-escalate level of care prior to hospital discharge. 01/07 Reconsult for Resp. distress. Patient was placed on BIPAP with 60% FIO2. ABG this morning showed some improvements in his resp acidosis with PH:7.34, CO2 72 from 82. CXR from 16/[address] chest today. 01/08 Patient was intubated this morning for worsening resp acidosis. CT chest yesterday showed pneumonia/aspiration. On Diprivan for sedation. Afebrile. 01/09 Patient is intubated and on low dose Diprivan drip. Afebrile. 01/10 Patient remains intubated. Awake, tolerated CPAP for most of day yesterday. Afebrile. 01/11 No events overnight. Awake and alert off sedation, tolerated CPAP all day yesterday. Afebrile. Objective Vital Signs / I&O: Vital Signs 01/10/18 08:00 01/10/18 08:30 01/10/18 08:50 Temperature 98.7 F Pulse Rate 80 81 Respiratory Rate 17 17 18 Blood Pressure 138/65 140/63 Pulse Oximetry 95 95 01/10/18 08:52 01/10/18 09:00 01/10/18 09:30 Temperature Pulse Rate 85 88 89 Respiratory Rate 17 19 18 Blood Pressure 131/59 L 140/63 Pulse Oximetry 94 L 96 01/10/18 10:00 01/10/18 10:30 01/10/18 11:00 Temperature Pulse Rate 92 H 89 84 Respiratory Rate 25 H 20 24 Blood Pressure 135/61 136/62 138/68 Pulse Oximetry 96 97 96 01/10/18 11:30 01/10/18 12:00 01/10/18 12:10 Temperature 98.4 F Pulse Rate 87 82 80 Respiratory Rate 23 17 16 Blood Pressure 142/65 H 129/60 Pulse Oximetry 97 97 01/10/18 12:11 01/10/18 12:30 01/10/18 13:00 Temperature Pulse Rate 86 91 H Respiratory Rate 16 20 34 H Blood Pressure 134/61 122/57 L Pulse Oximetry 96 97 01/10/18 13:30 01/10/18 14:00 01/10/18 14:28 Temperature Pulse Rate 87 97 H 95 H Respiratory Rate 18 23 24 Blood Pressure 123/58 L 127/60 Pulse Oximetry 97 96 01/10/18 14:29 01/10/18 14:30 01/10/18 15:00 Temperature Pulse Rate 93 H 90 Respiratory Rate 23 19 17 Blood Pressure 125/63 129/61 Pulse Oximetry 93 L 93 L 93 L 01/10/18 15:30 01/10/18 16:00 01/10/18 16:30 Temperature 98.6 F Pulse Rate 92 H 86 91 H Respiratory Rate 20 18 22 Blood Pressure 133/62 128/59 L 135/64 Pulse Oximetry 94 L 93 L 92 L 01/10/18 17:00 01/10/18 17:30 01/10/18 18:00 Temperature Pulse Rate 91 H 86 92 H Respiratory Rate 21 18 29 H Blood Pressure 129/61 132/63 137/63 Pulse Oximetry 92 L 93 L 93 L 01/10/18 18:30 01/10/18 19:00 01/10/18 19:30 Temperature Pulse Rate 90 90 89 Respiratory Rate 23 22 15 Blood Pressure 141/65 H 142/66 H 138/64 Pulse Oximetry 95 93 L 94 L 01/10/18 20:00 01/10/18 20:10 01/10/18 20:11 Temperature 98.8 F Pulse Rate 82 Respiratory Rate 17 19 19 Blood Pressure 133/65 Pulse Oximetry 95 92 L 100 01/10/18 20:13 01/10/18 20:30 01/10/18 21:00 Temperature Pulse Rate 88 85 85 Respiratory Rate 20 19 17 Blood Pressure 134/64 133/64 Pulse Oximetry 93 L 93 L 01/10/18 21:30 01/10/18 22:00 01/10/18 22:30 Temperature Pulse Rate 92 H 87 91 H Respiratory Rate 20 18 19 Blood Pressure 127/60 123/58 L 139/64 Pulse Oximetry 92 L 95 94 L 01/10/18 23:00 01/10/18 23:30 01/10/18 23:58 Temperature Pulse Rate 86 91 H 90 Respiratory Rate 17 21 19 Blood Pressure 125/59 L 138/64 Pulse Oximetry 95 93 L 01/11/18 00:00 01/11/18 00:30 01/11/18 01:00 Temperature 98.2 F Pulse Rate 85 86 92 H Respiratory Rate 18 17 21 Blood Pressure 122/59 L 138/63 Pulse Oximetry 94 L 95 94 L 01/11/18 01:30 01/11/18 02:00 01/11/18 02:30 Temperature Pulse Rate 89 94 H 92 H Respiratory Rate 18 22 18 Blood Pressure 128/59 L 121/57 L 123/58 L Pulse Oximetry 92 L 93 L 86 L 01/11/18 03:00 01/11/18 03:30 01/11/18 04:00 Temperature 98.2 F Pulse Rate 91 H 91 H 88 Respiratory Rate 19 20 18 Blood Pressure 130/60 132/61 128/59 L Pulse Oximetry 88 L 90 L 96 01/11/18 04:36 01/11/18 04:37 01/11/18 06:00 Temperature Pulse Rate 89 96 H Respiratory Rate 18 18 Blood Pressure Pulse Oximetry 92 L Intake & Output 01/10/18 01/11/18 01/11/18 18:59 06:59 18:59 Intake Total 680 / 680 521 / 521 200 / 200 Output Total 650 / 650 450 / 450 Balance 30 / 30 71 / 71 200 / 200 Weight 73.936 kg Intake: IV 300 / 300 200 / 200 Diprivan 1000 mg/100 ml Inj 1, 100 / 100 100 / 100 000 mg In 100 ml @ 5 MCG/KG/MIN 2.22 mls/hr IV.CONT TITRATE PRN Rx#:[id number] Merrem Inj 1,000 MG In NS Inj 200 / 200 100 / 100 100 ML @ 200 mls/hr IV.SIG Q8H [facility] Rx#:[id number] Tube Feeding 380 / 380 521 / 521 Output: Urine 450 / 450 Urine Amount (Catheter) 650 / 650 Condom 650 / 650 Other: Date of Last Bowel Movement 01/10/18 # Bowel Movements 2 Result Diagrams: 01/10/18 04:28 01/11/18 06:32 Other Results: Laboratory Results - last 12 hr 01/10/18 01/10/18 01/10/18 19:57 20:23 23:46 Sodium Potassium Chloride Carbon Dioxide Anion Gap BUN Creatinine Estimated GFR POC Glucose 330 H 327 H Random Glucose Calcium Phosphorus Magnesium Total Bilirubin AST ALT Alkaline Phosphatase Total Protein Albumin Vancomycin Trough 29.1 H 01/11/18 06:32 Sodium 144 Potassium 4.0 Chloride 106 Carbon Dioxide 30.1 Anion Gap 8 BUN 52 H Creatinine 1.04 Estimated GFR 69 L POC Glucose Random Glucose 269 H Calcium 7.9 L Phosphorus 2.5 Magnesium 2.6 H Total Bilirubin 0.4 AST 67 H ALT 78 Alkaline Phosphatase 272 H Total Protein 5.6 L Albumin 2.2 L Vancomycin Trough Imaging: Abdomen X-Ray 01/01/18 00:00 CONCLUSION: 1. No bowel obstruction, ileus or perforation. 2. Degenerative changes and scoliosis of the lumbar spine. Chest CT 01/07/18 00:00 CONCLUSION: 1. Postsurgical features of suspected previous left-sided lobectomy with volume loss and mediastinal shift to the left. 2. Bulky left-sided pleural plaques with chronic appearing small to moderate sized loculated left pleural effusion. 3. Dense airspace consolidation in the superior segment of the right lower lobe with patchy interstitial and groundglass opacities throughout the right lower lobe. Differential considerations include pneumonia and aspiration in the appropriate clinical setting. 4. Trace right-sided pleural effusion with fluid extending into the major fissure. 5. Mild coronary artery calcifications. 6. Small amount of ascites in the visualized upper abdomen. Abdomen Ultrasound 01/09/18 00:00 CONCLUSION: 1. Limited examination due to obscuration by bowel gas. 2. Simple left renal cyst. 3. Moderate amount of ascites in the right upper quadrant. Chest X-Ray 01/10/18 06:00 CONCLUSION: Stable to slight increase in right basilar airspace disease. Loculated left pleural fluid and left basilar opacity are stable. Objective Remarks: GENERAL: 82-year-old male lying in bed in mild resp distress. HEENT: Normocephalic. Atraumatic. Pupils equal, round, reactive, conjugate. Mucous membranes are moist NECK: Trachea is midline. No JVD, orally intubated with ETT 7.5cm CHEST: B/l equal air entry, diminished at bases CARDIOVASCULAR: Normal rate, regular rhythm. sinus. ABDOMEN: Soft, nontender, nondistended. No guarding. MUSCULOSKELETAL: Pulses 2+. significant evidence of scrotal edema. 1+ peripheral edema. No mottling NEUROLOGICAL: Intubated,sedated Assessment and Plan - Assessment and Plan Plan: Neuro: Acute metabolic encephalopathy- resolved Off sedation. 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 SBT daily. Will likely need trach/PEG tube placement. Patient is at high risk of reintubation if gets extubated as this is his second intubation Continue prednisone 10mg BID Pulmonary is following- Dr. Lazcano CT chest: Postsurgical features of suspected previous left-sided lobectomy with volume loss and mediastinal shift to the left. Bulky left-sided pleural plaques with chronic appearing small to moderate sized loculated left pleural effusion. Dense airspace consolidation in the superior segment of the right lower lobe with patchy interstitial and groundglass opacities throughout the right lower lobe. 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 Normal left ventricular size. Wall thickness is normal. No regional wall motion abnormalities are present. Diffuse calcification of the aortic valve but no significant stenosis. There is mild to moderate tricuspid valve regurgitation. The estimated pulmonary arterial pressure is 76.9 mmHg with severe pulmonary hypertension. Continue furosemide 40 mg daily/home medication: As needed labetalol and Nitropaste for hypertension Renal/: History of nephrolithiasis Monitor renal function, I/O's, electrolytes replacement per protocol. d/c Lasix FEN/GI: Severe acute protein calorie malnutrition On tube feeds- Glucerna 1.5 @45ml/hr Lansoprazole for GI prophylaxis Docusate sodium/senna 1 tablet twice daily for bowel regimen GI is following US abdomen: Limited exam due to obscuration by bowel gas.Simple left renal cyst. small ascites in the right upper quadrant. ID: Healthcare associated pneumonia Severe sepsis- present on admission Normocytic anemia Thrombocytopenia Abx per ID (Merrem) Monitor for signs of infections ( Fever, WBC) Follow up on sputum 01/08 normal resp vaishnavi Sputum culture 12/20-shea resp vaishnavi Blood cultures 12/19 no growth Urine UA with urine culture 12/20-NGTD Negative Legionella and pneumococcal urinary antigens Endocrine: Hyperglycemia of critical illness -- On medium SSI , increase Levemir 7uBID Heme: Anemia Thrombocytopenia Monitor CBC, Hep PLT ab negative MSK:: History of left IT nailing 11/14 Vitamin D deficiency PT evaluate and treat Prophylaxis: GI Prophylaxis Lansoprazole DVT Prophylaxis -- SCDs - Enoxaparin held for anemia, thrombocytopenia and Hemoccult positive Lines: Peripheral IVs Had extensive discussion with patient's and family members discussed about possible need of trach and PEG tube placement. All questions answered and they all voiced understanding of his condition Level 3
[2018-01-11] MEDS: Carboxymethylcellulose 0.5% Opth Drops 15 ML Bottle EACH EYE SCH ×2 (08:46→21:32)
[2018-01-11] MEDS: predniSONE 10 MG Tablet PO SCH ×2 (08:46→21:30)
[2018-01-11] MEDS: Chlorhexidine 0.12% Oral Kit 15 ML UDC OROPHARYNG SCH ×2 (08:46→21:30)
[2018-01-11] MEDS: Insulin Detemir Inj 1,000 UNIT/10 ML Vial SQ SCH ×2 (08:46→21:32)
[2018-01-11] MEDS: Budesonide-Formoterol 160/4.5 MCG 6 GM Inhaler INH SCH ×2 (08:47→21:32)
--- NOTE | 2018-01-11 11:53 | P.PN ---
Subjective Interval history: He is awake and stable on CPAP on the vent. tolerated CPAP all day yesterday. FIo2 at 35 %. Family here. Physical Exam Vital signs: Vital Signs 01/10/18 12:00 01/10/18 12:10 01/10/18 12:11 Temperature 98.4 F Pulse Rate 82 80 Respiratory Rate 17 16 16 Blood Pressure 129/60 Pulse Oximetry 97 01/10/18 12:30 01/10/18 13:00 01/10/18 13:30 Temperature Pulse Rate 86 91 H 87 Respiratory Rate 20 34 H 18 Blood Pressure 134/61 122/57 L 123/58 L Pulse Oximetry 96 97 97 01/10/18 14:00 01/10/18 14:28 01/10/18 14:29 Temperature Pulse Rate 97 H 95 H Respiratory Rate 23 24 23 Blood Pressure 127/60 Pulse Oximetry 96 93 L 01/10/18 14:30 01/10/18 15:00 01/10/18 15:30 Temperature Pulse Rate 93 H 90 92 H Respiratory Rate 19 17 20 Blood Pressure 125/63 129/61 133/62 Pulse Oximetry 93 L 93 L 94 L 01/10/18 16:00 01/10/18 16:30 01/10/18 17:00 Temperature 98.6 F Pulse Rate 86 91 H 91 H Respiratory Rate 18 22 21 Blood Pressure 128/59 L 135/64 129/61 Pulse Oximetry 93 L 92 L 92 L 01/10/18 17:30 01/10/18 18:00 01/10/18 18:30 Temperature Pulse Rate 86 92 H 90 Respiratory Rate 18 29 H 23 Blood Pressure 132/63 137/63 141/65 H Pulse Oximetry 93 L 93 L 95 01/10/18 19:00 01/10/18 19:30 01/10/18 20:00 Temperature 98.8 F Pulse Rate 90 89 82 Respiratory Rate 22 15 17 Blood Pressure 142/66 H 138/64 133/65 Pulse Oximetry 93 L 94 L 95 01/10/18 20:10 01/10/18 20:11 01/10/18 20:13 Temperature Pulse Rate 88 Respiratory Rate 19 19 20 Blood Pressure Pulse Oximetry 92 L 100 01/10/18 20:30 01/10/18 21:00 01/10/18 21:30 Temperature Pulse Rate 85 85 92 H Respiratory Rate 19 17 20 Blood Pressure 134/64 133/64 127/60 Pulse Oximetry 93 L 93 L 92 L 01/10/18 22:00 01/10/18 22:30 01/10/18 23:00 Temperature Pulse Rate 87 91 H 86 Respiratory Rate 18 19 17 Blood Pressure 123/58 L 139/64 125/59 L Pulse Oximetry 95 94 L 95 01/10/18 23:30 01/10/18 23:58 01/11/18 00:00 Temperature 98.2 F Pulse Rate 91 H 90 85 Respiratory Rate 21 19 18 Blood Pressure 138/64 Pulse Oximetry 93 L 94 L 01/11/18 00:30 01/11/18 01:00 01/11/18 01:30 Temperature Pulse Rate 86 92 H 89 Respiratory Rate 17 21 18 Blood Pressure 122/59 L 138/63 128/59 L Pulse Oximetry 95 94 L 92 L 01/11/18 02:00 01/11/18 02:30 01/11/18 03:00 Temperature Pulse Rate 94 H 92 H 91 H Respiratory Rate 22 18 19 Blood Pressure 121/57 L 123/58 L 130/60 Pulse Oximetry 93 L 86 L 88 L 01/11/18 03:30 01/11/18 04:00 01/11/18 04:36 Temperature 98.2 F Pulse Rate 91 H 88 Respiratory Rate 20 18 18 Blood Pressure 132/61 128/59 L Pulse Oximetry 90 L 96 92 L 01/11/18 04:37 01/11/18 06:00 01/11/18 07:42 Temperature Pulse Rate 89 96 H Respiratory Rate 18 Blood Pressure Pulse Oximetry 96 01/11/18 08:41 01/11/18 11:16 01/11/18 11:18 Temperature Pulse Rate 97 H Respiratory Rate 24 Blood Pressure Pulse Oximetry 94 L 96 Intake & Output 01/10/18 01/11/18 01/11/18 18:59 06:59 18:59 Intake Total 680 / 680 521 / 521 200 / 200 Output Total 650 / 650 450 / 450 Balance 30 71 / 71 200 / 200 Weight 73.936 kg Intake: IV 300 / 300 200 / 200 Diprivan 1000 mg/100 ml Inj 1, 100 / 100 100 / 100 000 mg In 100 ml @ 5 MCG/KG/MIN 2.22 mls/hr IV.CONT TITRATE PRN Rx#:[id number] Merrem Inj 1,000 MG In NS Inj 200 / 200 100 / 100 100 ML @ 200 mls/hr IV.SIG Q8H NOAH Rx#:[id number] Tube Feeding 380 / 380 521 / 521 Output: Urine 450 / 450 Urine Amount (Catheter) 650 / 650 Condom 650 / 650 Other: Date of Last Bowel Movement 01/10/18 # Bowel Movements 2 Narrative: General:Elderly W/m , Awake and in no distress. HEENT:PERRL. Throat clear.ET tube is in. Cardiovascular:Regular Rhythm, S1 S2 ,no murmur Respiratory : wheezes and decreased breath sounds bilateral. Abdomen: soft, nontender, positive bowel sounds. Extremities: 1 + pitting edema bilateral lower extremities. Neuro:Alert and moves extremities. No Focal deficits. - Urinary Catheter Management Straight Cath placed during this visit: yes, but has since been removed by the nurse Reason for continuing: Not indwelling catheter Insertion date: 12/23/17 Insertion time: 01:00 Removal date: 12/22/17 Removal time: 01:00 Condom Cath placed during this visit: no Results - Labs CBC & Chem 7: 01/10/18 04:28 01/11/18 06:32 Laboratory Results - last 24 hr 01/10/18 01/10/18 01/10/18 11:56 17:25 19:57 Sodium Potassium Chloride Carbon Dioxide Anion Gap BUN Creatinine Estimated GFR POC Glucose 306 H 302 H 330 H Random Glucose Calcium Phosphorus Magnesium Total Bilirubin AST ALT Alkaline Phosphatase Total Protein Albumin Vancomycin Trough 01/10/18 01/10/18 01/11/18 20:23 23:46 06:32 Sodium 144 Potassium 4.0 Chloride 106 Carbon Dioxide 30.1 Anion Gap 8 BUN 52 H Creatinine 1.04 Estimated GFR 69 L POC Glucose 327 H Random Glucose 269 H Calcium 7.9 L Phosphorus 2.5 Magnesium 2.6 H Total Bilirubin 0.4 AST 67 H ALT 78 Alkaline Phosphatase 272 H Total Protein 5.6 L Albumin 2.2 L Vancomycin Trough 29.1 H Microbiology 01/08/18 09:11 Sputum - Endotracheal Gram Stain - Final 01/08/18 09:11 Sputum - Endotracheal Sputum Culture - Final Heavy growth normal respiratory vaishnavi Assessment and Plan - Assessment (1) Respiratory failure requiring intubation Code(s): J96.90 - Respiratory failure, unspecified, unspecified whether with hypoxia or hypercapnia Status: Acute (2) Pneumonia Code(s): J18.9 - Pneumonia, unspecified organism Status: Acute (3) CHF (congestive heart failure), NYHA class II Code(s): I50.9 - Heart failure, unspecified Status: Acute (4) CHF (congestive heart failure) Code(s): I50.9 - Heart failure, unspecified Status: Acute (5) Respiratory abnormalities Code(s): J98.9 - Respiratory disorder, unspecified Status: Acute (6) Emphysema of lung Code(s): J43.9 - Emphysema, unspecified Status: Acute (7) Borderline diabetes mellitus Code(s): R73.03 - Prediabetes Status: Acute (8) Fracture, intertrochanteric, left femur Code(s): S72.142A - Displaced intertrochanteric fracture of left femur, initial encounter for closed fracture Status: Acute (9) Nutrition, metabolism, and development symptoms Code(s): R63.8 - Other symptoms and signs concerning food and fluid intake Status: Acute - Plan RECOMMENDATIONS: 1. Ventilator support and wean PSV to 15 CPAP +5, and FIO2 to keep sat >92 2. Bronchodilators ,DuoNeb q.6 hr. 3. D/W family here. 4. Possible trach if not able to wean off vent this week. 5. Continue with Lasix 40 mg daily. 6. Cont antibiotics per ID. 7.,CPAP trial daily 8. Prednisone 10 mg BID
[2018-01-11] MEDS: Piperacil/Tazo 3.375 GM Premix 50 ML IV.SIG SCH ×2 (12:11→17:20)
--- NOTE | 2018-01-11 16:00 | P.PNPAL ---
Reason for Visit Reason for visit: a. To assist with evaluation and management of symptoms including: dyspnea, pain b. To assist medical decision maker(s) with: better understanding of current medical conditions; weighing benefits/burdens of medical treatment options; making medical treatment decisions. Subjective Subjective/Interval History: Patient seen today to follow up on comfort/goals. S/p medical extubation 12/26. Started on bipap.Was planned for transfer out of ICU to stepdown 01/07. S/p CT chest = 1. Postsurgical features of suspected previous left-sided lobectomy with volume loss and mediastinal shift to the left.2. Bulky left-sided pleural plaques with chronic appearing small to moderate sized loculated left pleural effusion.3. Dense airspace consolidation in the superior segment of the right lower lobe with patchy interstitial and groundglass opacities throughout the right lower lobe. Differential considerations include pneumonia and aspiration in the appropriate clinical setting.4. Trace right-sided pleural effusion with fluid extending into the major fissure. ; lungs are essentially unchanged no overall changes to tx plan per critical care . worsening ABG ;Intubated 01/08/18 (3rd intubation this admission) Remains on vent over weekend, tolerating CPAP. Initially on sedation though this has been weaned off. H&H decrease over weekend, down to 7.9/23.5 --> repeat 11/09 = 8.4/25.1 ---> yesterday 7.9/23.2--- repeat results today pending. Specimen hemolyzed, difficult lab draw, planned for PICC line for ongoing labs/ IVs. GI consulted- no active signs of bleeding.Tolerating TF. Abdominal ultrasound = ascites , + exam limiting obscuring bowel gas. ?ascites etiology cardiac etiology vs liver disease. Consider diagnostic paracentesis. Consider EGD if family wishes. Monitor H&H transfusions if indicated. Pt seen in room , and sister present. is tearful at times. She indicates trach/PEG was discussed earlier w critical care. She wonders if she should put him through a surgery,even minor, if he "wont get better anyway" . Explore that his lung disease will remain, and will not be effected By trach, trach is only to allow on/off the vent, and that he may still from him complicated illness(es) even with additional tubes/lines. Explore that unlikely he would be able to return home if cont to require on /off vent 2/2 to irreversible lung conditions. She is not sure if she should proceed. Gently explore that should be based on pt preferences, if he would not gain quality of life that he finds acceptable by proceeding with a trach and PEG, then he would have the option to say no, and for him to be comfortable and when it is his time to pass he could pass comfortably. Further explore that strongly encouraged them to make decisions about a PICC line as this allows for lab draws and use as an IV access. All questions answered to the best of my ability. They have my contact information. To my exam patient is alert, upright in bed. External catheter has become dislodged. Following some commands seems to be nodding and interact his indicates he complains of being thirsty and wants to drink. Explore w her oral care only for comfort, with ET tube and that he would likely continue to feel thirsty as he is not able to drink in a normal fashion. Appears Goals remain aggressive. d/w critical care, primary RN. Additional history per recent admission 11/13/17: Patient with known history CHF, diabetes, COPD, pulmonary fibrosis and asbestosis, presented to the ED after sustaining a fall in his home. He was lightheaded. Baseline 3-4 L nasal cannula requiring significant assistance with ADLs. Also with known history of LEFT thoracotomy and lobectomy/resection many years ago. Imaging finding of intertrochanteric fracture of proximal left hip. Also findings of osteopenia. Pulmonology evaluated patient and noted that he was cleared for surgery though may require BiPAP after. Suggested limited anesthesia secondary to moderately failure and/or pneumonia. Orthopedics consulted reviewed options family requested to proceed with operative management. During that admission noted during attending discussion with family daughter reports baseline mental status with some component of a dementia. Patient's primary language also reported to be a telemetry and though they requested no interpretation service be used during encounters because this would make him upset. During that hospital course patient did require ICU on BiPAP. Patient with some agitation. Anemia requiring transfusion postoperatively. Ongoing respiratory complication and concern for respiratory decompensation that could require mechanical ventilation and could result in difficulty weaning. Critical care notes discussion with family requested full CODE STATUS and continued aggressive management. Outpatient CT per Dr. Guerrier demonstrated pulmonary fibrosis and bronchiectasis. Patient did have a VQ scan during that admission with ventilation abnormally and perfume and of normal least left lower lobe pattern not typical of PE likely related to lobectomy. Avoiding CTA due to worsening renal function, family did not wish to assume risk. During that hospital course it is noted family requested transfer to [facility], critical care attempted to initiate that process. [facility] declined admission. Patient was also evaluated for LTAC, insurance apparently denied LTAC. Family appealed this and patient was later accepted by [facility]. He was discharged to [facility] 11/20/17 Objective Vital Signs: Vital Signs 01/10/18 16:00 01/10/18 16:30 01/10/18 17:00 Temperature 98.6 F Pulse Rate 86 91 H 91 H Respiratory Rate 18 22 21 Blood Pressure 128/59 L 135/64 129/61 Pulse Oximetry 93 L 92 L 92 L 01/10/18 17:30 01/10/18 18:00 01/10/18 18:30 Temperature Pulse Rate 86 92 H 90 Respiratory Rate 18 29 H 23 Blood Pressure 132/63 137/63 141/65 H Pulse Oximetry 93 L 93 L 95 01/10/18 19:00 01/10/18 19:30 01/10/18 20:00 Temperature 98.8 F Pulse Rate 90 89 82 Respiratory Rate 22 15 17 Blood Pressure 142/66 H 138/64 133/65 Pulse Oximetry 93 L 94 L 95 01/10/18 20:10 01/10/18 20:11 01/10/18 20:13 Temperature Pulse Rate 88 Respiratory Rate 19 19 20 Blood Pressure Pulse Oximetry 92 L 100 01/10/18 20:30 01/10/18 21:00 01/10/18 21:30 Temperature Pulse Rate 85 85 92 H Respiratory Rate 19 17 20 Blood Pressure 134/64 133/64 127/60 Pulse Oximetry 93 L 93 L 92 L 01/10/18 22:00 01/10/18 22:30 01/10/18 23:00 Temperature Pulse Rate 87 91 H 86 Respiratory Rate 18 19 17 Blood Pressure 123/58 L 139/64 125/59 L Pulse Oximetry 95 94 L 95 01/10/18 23:30 01/10/18 23:58 01/11/18 00:00 Temperature 98.2 F Pulse Rate 91 H 90 85 Respiratory Rate 21 19 18 Blood Pressure 138/64 Pulse Oximetry 93 L 94 L 10/15/18 00:30 01/11/18 01:00 01/11/18 01:30 Temperature Pulse Rate 86 92 H 89 Respiratory Rate 17 21 18 Blood Pressure 122/59 L 138/63 128/59 L Pulse Oximetry 95 94 L 92 L 01/11/18 02:00 01/11/18 02:30 01/11/18 03:00 Temperature Pulse Rate 94 H 92 H 91 H Respiratory Rate 22 18 19 Blood Pressure 121/57 L 123/58 L 130/60 Pulse Oximetry 93 L 86 L 88 L 01/11/18 03:30 01/11/18 04:00 01/11/18 04:36 Temperature 98.2 F Pulse Rate 91 H 88 Respiratory Rate 20 18 18 Blood Pressure 132/61 128/59 L Pulse Oximetry 90 L 96 92 L 01/11/18 04:37 01/11/18 06:00 01/11/18 07:42 Temperature Pulse Rate 89 96 H Respiratory Rate 18 Blood Pressure Pulse Oximetry 96 01/11/18 08:00 01/11/18 08:41 01/11/18 10:00 Temperature 98.6 F Pulse Rate 97 H 90 Respiratory Rate 24 Blood Pressure 129/59 L Pulse Oximetry 92 L 94 L 01/11/18 11:16 01/11/18 11:18 01/11/18 11:20 Temperature Pulse Rate 97 H Respiratory Rate 24 23 Blood Pressure Pulse Oximetry 96 96 01/11/18 12:00 01/11/18 14:00 01/11/18 15:27 Temperature 98.4 F Pulse Rate 97 H 97 H Respiratory Rate 29 H Blood Pressure 142/65 H Pulse Oximetry 94 L 100 01/11/18 15:31 Temperature Pulse Rate 97 H Respiratory Rate 27 H Blood Pressure Pulse Oximetry Intake & Output 01/10/18 01/11/18 01/11/18 18:59 06:59 18:59 Intake Total 680 / 680 521 / 521 200 / 200 Output Total 650 / 650 450 / 450 Balance 30 / 30 71 / 71 200 / 200 Weight 73.936 kg Intake: IV 300 / 300 200 / 200 Diprivan 1000 mg/100 ml Inj 1, 100 / 100 100 / 100 000 mg In 100 ml @ 5 MCG/KG/MIN 2.22 mls/hr IV.CONT TITRATE PRN Rx#:[id number] Merrem Inj 1,000 MG In NS Inj 200 / 200 100 / 100 100 ML @ 200 mls/hr IV.SIG Q8H NOAH Rx#:[id number] Tube Feeding 380 / 380 521 / 521 Output: Urine 450 / 450 Urine Amount (Catheter) 650 / 650 Condom 650 / 650 Other: Date of Last Bowel Movement 01/10/18 # Bowel Movements 2 Physical Exam: CONSTITUTIONAL/GENERAL: This is a thin elderly male, alert on [facility] vent TUBES/LINES/DRAINS: peripheral IVs to bilateral upper extremities. bipap mask SKIN: No jaundice, rashes, or lesions. few areas of ecchymosis bilateral hands. Fading ecchymosis along left hip, upper leg. No wounds seen anteriorly- reports sacral/buttock wound . Skin warm/dry. EYES: Pupils 2.5mm/ reactive to light. No scleral icterus. No injection or drainage. Fundi not examined. ENT: Nose without bleeding or purulent drainage. Throat without visible erythema, exudates CARDIOVASCULAR: Regular rate and rhythm without murmur, rate 90s. No JVD. Peripheral pulses symmetric. RESPIRATORY/CHEST: Symmetric, unlabored respirations on vent, CPAP. mildly tachypneic 20s. Left side w/ decreased air movement. Right w decreased air movement, faint rhonchi GASTROINTESTINAL: Abdomen soft, no tenderness. No palpable masses. Bowel sounds present. GENITOURINARY: Without palpable bladder distension. external catheter dislodged clear yellow urine visible in tubing MUSCULOSKELETAL: Extremities without clubbing, cyanosis. No joint tenderness or effusion noted. No mottling or clubbing. NEUROLOGICAL:alert, attempts to mouth words/speak to family. moves all 4 extremities. follows commands. PSYCHIATRIC: calm, no apparent anxiety. Diagnostic Tests Laboratory: Laboratory Results - last 72 hr 01/08/18 01/09/18 01/09/18 23:50 04:39 04:39 WBC 5.5 RBC 2.61 L Hgb 7.9 L Hct 23.5 L MCV 90.2 MCH 30.3 MCHC 33.6 RDW 14.9 Plt Count 65 L MPV 9.2 Prelim Diff (Auto) Slide review pending Neut % (Auto) 89.3 H Lymph % (Auto) 7.5 L [place] % (Auto) 3.2 Eos % (Auto) 0.0 Baso % (Auto) 0.0 Neut # (Auto) 4.9 Lymph # (Auto) 0.4 L [place] # (Auto) 0.2 Eos # (Auto) 0.0 Baso # (Auto) 0.0 WBC Differential . Diff Scan Auto diff confirmed Differential Comment . Platelet Estimate Low L Platelet Morphology Normal Stomatocytes 1+ H Sodium 141 Potassium 3.6 Chloride 100 Carbon Dioxide 33.6 H Anion Gap 7 BUN 36 H Creatinine 0.95 Estimated GFR 76 L POC Glucose 143 H Random Glucose 168 H Calcium 8.1 L Phosphorus 3.0 D Magnesium 2.4 Total Bilirubin 0.4 AST 43 H ALT 45 Alkaline Phosphatase 201 H Total Protein 5.3 L Albumin 2.0 L Vancomycin Trough 01/09/18 01/09/18 01/09/18 11:45 12:43 17:47 WBC RBC Hgb 8.4 L Hct 25.1 L MCV MCH MCHC RDW Plt Count MPV Prelim Diff (Auto) Neut % (Auto) Lymph % (Auto) [place] % (Auto) Eos % (Auto) Baso % (Auto) Neut # (Auto) Lymph # (Auto) [place] # (Auto) Eos # (Auto) Baso # (Auto) WBC Differential Diff Scan Differential Comment Platelet Estimate Platelet Morphology Stomatocytes Sodium Potassium Chloride Carbon Dioxide Anion Gap BUN Creatinine Estimated GFR POC Glucose 305 H 200 H Random Glucose Calcium Phosphorus Magnesium Total Bilirubin AST ALT Alkaline Phosphatase Total Protein Albumin Vancomycin Trough 01/09/18 01/10/18 01/10/18 23:52 04:28 04:28 WBC 5.0 RBC 2.58 L Hgb 7.9 L Hct 23.2 L MCV 90.0 MCH 30.6 MCHC 34.0 RDW 15.6 Plt Count 67 L MPV 9.3 Prelim Diff (Auto) Slide review pending Neut % (Auto) 87.2 H Lymph % (Auto) 7.2 L [place] % (Auto) 5.5 Eos % (Auto) 0.0 Baso % (Auto) 0.1 Neut # (Auto) 4.4 Lymph # (Auto) 0.4 L [place] # (Auto) 0.3 Eos # (Auto) 0.0 Baso # (Auto) 0.0 WBC Differential . Diff Scan Auto diff confirmed Differential Comment . Platelet Estimate Platelet Morphology Stomatocytes Sodium 143 Potassium 3.6 Chloride 103 Carbon Dioxide 33.9 H Anion Gap 6 BUN 50 H Creatinine 0.97 Estimated GFR 74 L POC Glucose 218 H Random Glucose 211 H Calcium 8.2 L Phosphorus 2.1 L Magnesium 2.6 H Total Bilirubin 0.4 AST 44 H ALT 52 Alkaline Phosphatase 231 H Total Protein 5.3 L Albumin 2.1 L Vancomycin Trough 01/10/18 01/10/18 01/10/18 11:56 17:25 19:57 WBC RBC Hgb Hct MCV MCH MCHC RDW Plt Count MPV Prelim Diff (Auto) Neut % (Auto) Lymph % (Auto) [place] % (Auto) Eos % (Auto) Baso % (Auto) Neut # (Auto) Lymph # (Auto) [place] # (Auto) Eos # (Auto) Baso # (Auto) WBC Differential Diff Scan Differential Comment Platelet Estimate Platelet Morphology Stomatocytes Sodium Potassium Chloride Carbon Dioxide Anion Gap BUN Creatinine Estimated GFR POC Glucose 306 H 302 H 330 H Random Glucose Calcium Phosphorus Magnesium Total Bilirubin AST ALT Alkaline Phosphatase Total Protein Albumin Vancomycin Trough 01/10/18 01/10/18 01/11/18 20:23 23:46 06:32 WBC RBC Hgb Hct MCV MCH MCHC RDW Plt Count MPV Prelim Diff (Auto) Neut % (Auto) Lymph % (Auto) [place] % (Auto) Eos % (Auto) Baso % (Auto) Neut # (Auto) Lymph # (Auto) [place] # (Auto) Eos # (Auto) Baso # (Auto) WBC Differential Diff Scan Differential Comment Platelet Estimate Platelet Morphology Stomatocytes Sodium 144 Potassium 4.0 Chloride 106 Carbon Dioxide 30.1 Anion Gap 8 BUN 52 H Creatinine 1.04 Estimated GFR 69 L POC Glucose 327 H Random Glucose 269 H Calcium 7.9 L Phosphorus 2.5 Magnesium 2.6 H Total Bilirubin 0.4 AST 67 H ALT 78 Alkaline Phosphatase 272 H Total Protein 5.6 L Albumin 2.2 L Vancomycin Trough 29.1 H 01/11/18 12:04 WBC RBC Hgb Hct MCV MCH MCHC RDW Plt Count MPV Prelim Diff (Auto) Neut % (Auto) Lymph % (Auto) [place] % (Auto) Eos % (Auto) Baso % (Auto) Neut # (Auto) Lymph # (Auto) [place] # (Auto) Eos # (Auto) Baso # (Auto) WBC Differential Diff Scan Differential Comment Platelet Estimate Platelet Morphology Stomatocytes Sodium Potassium Chloride Carbon Dioxide Anion Gap BUN Creatinine Estimated GFR POC Glucose 234 H Random Glucose Calcium Phosphorus Magnesium Total Bilirubin AST ALT Alkaline Phosphatase Total Protein Albumin Vancomycin Trough Result Diagrams: 01/10/18 04:28 01/11/18 06:32 Microbiology: Microbiology 01/08/18 09:11 Gram Stain - Final Sputum - Endotracheal Sputum Culture - Final Heavy growth normal respiratory vaishnavi Imaging: Impressions Abdomen Ultrasound 01/09/18 00:00 CONCLUSION: 1. Limited examination due to obscuration by bowel gas. 2. Simple left renal cyst. 3. Moderate amount of ascites in the right upper quadrant. Chest X-Ray 01/10/18 06:00 CONCLUSION: Stable to slight increase in right basilar airspace disease. Loculated left pleural fluid and left basilar opacity are stable. Procedures: 01/08 intubation, 3rd Assessment and Plan - Disease Oriented Problem List (1) COPD (chronic obstructive pulmonary disease) (2) CHF (congestive heart failure) (3) Respiratory distress (4) Sepsis (5) HCAP (healthcare-associated pneumonia) (6) NAHED (acute kidney injury) (7) Pulmonary hypertension (8) S/P lobectomy of lung - Symptom Scale (3) Malnutrition 0-10 Scale: Unable to quantify Pertinent Non-Medical Issues: Psychosocial: Retired. Lived in [place] most of his life-- originally from [place], then moved to [place], then to [place]. Worked as a [employer]. Supported by , 4 daughters, other extended family. Spiritual:jewish, sister providing spiritual care Legal:Patient unable to participate due to clinical condition. There is some question of underlying cognitive deficits. His would be appropriate legal decision maker. She is making decisions supported by the rest of the family, daughters, sister are very involved in his care in decision-making Ethical issues impacting care:no ethical issues identified Important Contacts: Sunshine Davenport [phone] Prognosis: This 82-year-old patient is currently hospitalized due to severe sepsis, with respiratory failure. He has multiple chronic comorbidities. 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 He also has underlying COPD, pulmonary fibrosis, prior lobectomy. Overall poor prognosis for survival from current acute issues. Code Status: Full Code Plan: * Legal decision maker: Patient unable to participate due to clinical condition. There is some question of underlying cognitive deficits. His would be appropriate legal decision maker. She is making decisions supported by the rest of the family, daughters, sister are very involved in his care in decision-making * Goals: aggressive goals; pt/family want to continue ongoing aggressive treatments to improve his condition, including full code. is undecided RE proceeding with trach/PEG * CODE STATUS: Full code * SYMPTOMS: --Dyspnea-admitted for shortness of breath. Desaturation reported at home. Urgently intubated upon arrival to ICU. CXR indicative right lower lung probable pneumonia. initially On broad-spectrum antibiotics. Cultures negative. Tolerated medical extubation 12/25. abx d/cd tolerating nasal cannula , to medical unit. HALICAT 12/30,for desaturation, now back in ICU, has remained stable in ICU, again with de-sat, required bipap early am 01/07, intubated . s/p CT chest. Remains on abx. Lungs unchanged. Due to recent pneumonia, intubation, debilitated status remains at risk for respiratory complications. will likely require trach for ongoing, possibly intermittent vent support. --Pain-family endorses day to day at home patient did not endorse any pain. He is status post hip repair last month. Has been essentially bedbound since that time, potential sources would include recent hip surgery, as well as prolonged bedbound status and recent invasive procedures. Family endorses that pt is having some discomfort to his sacral region though they do not want him to have morphine because they feel that is too strong for him. Wound care following for wounds to buttocks. Ordered for airbed. --malnutrition- multiple intubation/extubation during this hospital course. Tolerating some PO when extubated. Now tolerating TF. Will likely require healthcare account manager tube feed supplementation to meet requirements due to fragile respiratory status, and limited PO intake. * Palliative care will continue to follow during hospital course as condition evolves, to assist patient/decision-maker with understanding of medical conditions, weighing benefits/burdens of treatment options, for clarification of goals of treatment. Additionally will assist with any symptoms of palliative concern Attestation Attestation: To help prompt me to consider important information that might be impacting today's encounter and assessment, information from prior notes written by myself or my colleagues may have been "brought forward" into today's note. My signature on this note, however, is an attestation that I personally performed the exam, history, and/or decision-making noted today, and, unless otherwise indicated, the interactions with patient, family, and staff as well as the review of records all occurred today. I also attest that the listed assessment and stated plan reflect my best clinical judgment today based on the combination of historical information, prior notes, and today's exam/ interactions. When time spent is documented, it refers only to time spent today by the signer, or if indicated, combined time spent today by collaborating physician/nurse practitioner.
[2018-01-11 17:03] LABS: Iron 22 mcg/dL (65-175)
[2018-01-11 17:05] LABS: Ferritin 112 ng/mL (26-388)
[2018-01-12] MEDS: Insulin NovoLOG Aspart Correctional Sugar Inj SQ SCH ×7 (00:57→20:04)
[2018-01-12] MEDS: Oral Hygiene Kit OROPHARYNG SCH ×4 (00:57→16:17)
[2018-01-12] MEDS: Piperacil/Tazo 3.375 GM Premix 50 ML IV.SIG SCH ×4 (00:57→18:02)
[2018-01-12 05:30] LABS: Baso % (Auto) 0.1 % (0.0-2.0); Eos % (Auto) 0.6 % (0.0-4.0); Hematocrit 23.7 % (39.0-51.0); Lymph # (Auto) 0.4 th/mm3 (1.0-4.8); Lymph % (Auto) 7.5 % (9.0-44.0); Mean Corpuscular HGB Conc 33.6 % (32.0-36.0); Mean Corpuscular Hemoglobin 30.4 pg (27.0-34.0); Mean Corpuscular Volume 90.5 fL (80.0-100.0); Mean Platelet Volume 8.8 fL (7.0-11.0); Mono # (Auto) 0.3 th/mm3 (0.0-0.9); Mono % (Auto) 4.8 % (0.0-8.0); Neut # (Auto) 4.6 th/mm3 (1.8-7.7); Platelet Count 73 th/mm3 (150-450); Red Blood Count 2.62 mil/mm3 (4.50-5.90); Red Cell Distribution Width 15.8 % (11.6-17.2); White Blood Count 5.3 th/mm3 (4.0-11.0)
[2018-01-12 05:43] LABS: Albumin 2.1 g/dL (3.4-5.0); Anion Gap 8 meq/L (5-15); Aspartate Aminotransferase 57 U/L (15-37); Blood Urea Nitrogen 49 mg/dL (7-18); Calcium 8.1 mg/dL (8.5-10.1); Carbon Dioxide 31.4 meq/L (21.0-32.0); Chloride 108 meq/L (98-107); Glomerular Filtration Rate 72 mL/min (>89); Glucose,Random 187 mg/dL (74-106); Magnesium 2.6 mg/dL (1.5-2.5); Potassium 4.2 meq/L (3.5-5.1); Sodium 147 meq/L (136-145)
[2018-01-12 05:46] LABS: Alanine Aminotransferase 74 U/L (12-78); Alkaline Phosphatase 245 U/L (45-117); Total Protein 5.2 g/dL (6.4-8.2)
[2018-01-12 06:39] LABS: Hepatitis A IgM Antibody Nonreactive (Nonreactive); Hepatitits B Surface Antigen Nonreactive (Nonreactive)
--- NOTE | 2018-01-12 09:43 | XR ---
EXAM DATE: 01/12/2018 7:41 AM EDT AGE/SEX: 82 years / Male INDICATIONS: Vdrf CLINICAL DATA: This is the patient's initial encounter. Patient reports that signs and symptoms have been present for 2 months and indicates a pain score of 0/10. MEDICAL/SURGICAL HISTORY: . COPD, diabetes, kidney stones, pneumothorax, lobectomy, . hernia repair, hip surgery COMPARISON: [facility], CHEST 1V SINGLE AP, 01/10/2018. . FINDINGS: Stable ETT and NGT coursing beyond the GE junction. Redemonstration of loculated moderate size left p leural effusion with associated left lung airspace disease and volume loss. Minimally improved airspa ce disease in the right mid to lower lung zones. Stable right apical pleural-parenchymal scarring. Ca rdiomediastinal contours are stable. Remainder of the exam is unchanged. CONCLUSION: 1. Stable ETT and NGT. 2. Slightly improved airspace disease in the right mid to lower lung zones. 3. Persistent moderate loculated left-sided pleural effusion with associated left lung airspace dise ase and volume loss. Electronically signed by: Kyaw Gallo MD 01/12/2018 9:41 AM EDT
[2018-01-12] MEDS: Insulin Detemir Inj 1,000 UNIT/10 ML Vial SQ SCH ×2 (10:00→20:05)
--- NOTE | 2018-01-12 10:12 | P.PNCC ---
Subjective Subjective Remarks/Hospital Course: 82-year-old male with past medical history of COPD and CHF presents for an evaluation of shortness of breath and hypoxemia worsening over past few days. The nebulizer treatments helped initially however today there were not helpful. EMS reports on scene the O2 sat was in the 80s. He received high flow oxygen and nebulized albuterol in route here. His blood pressure initially in the emergency department was 200/100 however trended down to about 160/90. BiPAP was started in the emergency department with improvement in his O2 sat that has trended towards the high 90s with 100% FiO2 on BiPAP. Shortly after transfer to ICU the patient continues to to be more hypoxemic and restless requiring endotracheal intubation and mechanical ventilation. 12/20: intubated and sedated. still hypercarbic with [id number] respiratory acidosis. family unhappy that patient was intubated: they insisted last night on being a Full Code, but apparently the daughter required that she be notified of exactly what SpO2 the patient was at, and it had to reach a certain low level before she would be ok with intubation. Per overnight records , patient presented with severe respiratory distress, and family reports that EMS stated patient "wouldn't make it all the way to [facility]" due to his pulmonary instability. This morning, hypoxia is somewhat improved. remains on broad spectrum antibiotics. I explained to family that this is likely a new pneumonia causing respiratory failure. I also explained that after recent hip fracture and recent prolonged hospitalization, his baseline end-stage lung disease and NYHA Class IV symptoms are likely to worsen, and this may be worsening of his overall end-stage disease processes. Family continues to state that our facility caused his lung failure during the prior hospitalization. They are also concerned about his poor peripheral perfusion and oliguria, which concerns me also: I explained that his heart failure could not tolerate significant amount of iv fluids, and we have already given him 1500mL over the last 12 hours, but they have insisted on additional iv fluids. I explained he had severe sepsis and the mortality associated with this. Daughter continues to remind me that her father "is coming home with her and getting better" as she has stated multiple times in the past. 12/21: no improvements. remains intubated. clinically becoming volume overloaded - will be forced to start diuresis. 12/22: mental status slightly improved. still failing weaning attempts. 12/23: Afebrile. Currently on PSV trial 15/7 at 45%. Discussed with and daughter at bedside. Chest x-ray revealed ET tube at [place]. Retracted 1 cm. Tolerating tube feeds with family requested 40 cc an hour. 12/24: Afebrile. Currently CPAP trial FiO2 at 45%. Tolerating tube feeds if family requested 40 cc an hour. Receiving morphine 1-2 mg every 4 hours as needed pain. 12/25 No events overnight remains intubated off sedation. Tolerated CPAP for several hrs yesterday. Afebrile. 12/26 No events overnight. Patient tolerated CPAP for most of day yesterday. Awake and alert follows commands, on no sedation. 12/27 Patient was extubated yesterday on 4L oxygen. Awake. Afebrile. 12/28 No events overnight. Remains on 4L oxygen. Awake and alert. 12/30: RECONSULT NOTE: reconsulted as rapid response for hypoxia. per the family , patient had desaturation episode to the 60s, placed on NRB. family insisted on transfer back to ICU. when I saw patient on arrival to ICU, patient spo2 99% on NRB. pao2 on NRB was 150. patient is well-known to me with baseline spo2 82- 86% on 5L o2 by NC at home. family states he has another pneumonia. on my review of CXR and lab evidence, unclear if this is new pneumonia vs. old chronic lung disease. patient denies sob or new symptoms. 12/31: no changes. remains on simple mask at 6LPM. not in distress. family does not want to leave ICU and wants to continue ICU care for the remainder of the hospitalization. long discussion about needing to de-escalate level of care prior to hospital discharge. 01/07 Reconsult for Resp. distress. Patient was placed on BIPAP with 60% FIO2. ABG this morning showed some improvements in his resp acidosis with PH:7.34, CO2 72 from 82. CXR from 16/[address] chest today. 01/08 Patient was intubated this morning for worsening resp acidosis. CT chest yesterday showed pneumonia/aspiration. On Diprivan for sedation. Afebrile. 01/09 Patient is intubated and on low dose Diprivan drip. Afebrile. 01/10 Patient remains intubated. Awake, tolerated CPAP for most of day yesterday. Afebrile. 01/11 No events overnight. Awake and alert off sedation, tolerated CPAP all day yesterday. Afebrile. Subjective: 01/12: Family concern regarding testicular swelling. I went over available laboratories. Will check hepatitis C genotype and PCR viral load today. We will also check C. difficile per family request. Patient tolerated CPAP yesterday for around 10 hours. Has been on CPAP since 8 AM this morning. FiO2 35%. Objective Vital Signs / I&O: Vital Signs 01/11/18 11:16 01/11/18 11:18 01/11/18 11:20 Temperature Pulse Rate 97 H Respiratory Rate 24 23 Blood Pressure Pulse Oximetry 96 96 01/11/18 12:00 01/11/18 14:00 01/11/18 15:27 Temperature 98.4 F Pulse Rate 97 H 97 H Respiratory Rate 29 H Blood Pressure 142/65 H Pulse Oximetry 94 L 100 01/11/18 15:31 01/11/18 16:00 01/11/18 16:31 Temperature 98.6 F Pulse Rate 97 H 102 H 97 H Respiratory Rate 27 H 24 23 Blood Pressure 169/74 H 116/57 L Pulse Oximetry 88 L 91 L 01/11/18 17:00 01/11/18 17:40 01/11/18 18:00 Temperature Pulse Rate 100 H 101 H 100 H Respiratory Rate 26 H 27 H 25 H Blood Pressure 122/58 L 135/88 Pulse Oximetry 90 L 95 94 L 01/11/18 18:05 01/11/18 19:00 01/11/18 19:30 Temperature Pulse Rate 100 H 100 H Respiratory Rate 26 H 25 H 21 Blood Pressure 136/62 126/59 L Pulse Oximetry 94 L 96 95 01/11/18 19:36 01/11/18 20:00 01/11/18 21:00 Temperature 98.8 F Pulse Rate 98 H 102 H 99 H Respiratory Rate 22 30 H 21 Blood Pressure 132/64 124/58 L Pulse Oximetry 95 94 L 01/11/18 22:00 01/11/18 22:58 01/11/18 23:00 Temperature Pulse Rate 86 92 H 92 H Respiratory Rate 26 H 18 19 Blood Pressure 128/61 109/55 L Pulse Oximetry 94 L 97 01/12/18 00:00 01/12/18 01:00 01/12/18 02:00 Temperature 97.9 F Pulse Rate 86 93 H 86 Respiratory Rate 19 21 18 Blood Pressure 116/57 L 128/62 119/59 L Pulse Oximetry 96 96 01/12/18 03:00 01/12/18 03:32 01/12/18 03:50 Temperature Pulse Rate 93 H 89 Respiratory Rate 22 18 18 Blood Pressure 142/63 H Pulse Oximetry 100 01/12/18 04:00 01/12/18 05:00 01/12/18 06:00 Temperature 98.2 F Pulse Rate 86 92 H 89 Respiratory Rate 18 18 19 Blood Pressure 114/55 L 118/58 L 120/59 L Pulse Oximetry 96 95 94 L 01/12/18 07:00 01/12/18 07:39 01/12/18 07:48 Temperature Pulse Rate 86 89 Respiratory Rate 18 21 21 Blood Pressure 118/58 L Pulse Oximetry 92 L 93 L 01/12/18 07:58 Temperature Pulse Rate Respiratory Rate 27 H Blood Pressure Pulse Oximetry 94 L Intake & Output 01/11/18 01/12/18 01/12/18 18:59 06:59 18:59 Intake Total 844 / 844 50 / 50 50 / 50 Output Total 225 / 225 500 / 500 Balance 619 / 619 -450 / -450 50 / 50 Weight 72.4 kg Intake: IV 400 / 400 50 / 50 50 / 50 Diprivan 1000 mg/100 ml Inj 1, 100 / 100 000 mg In 100 ml @ 5 MCG/KG/MIN 2.22 mls/hr IV.CONT TITRATE PRN Rx#:[id number] Merrem Inj 1,000 MG In NS Inj 200 / 200 100 ML @ 200 mls/hr IV.SIG Q8H NOAH Rx#:[id number] Zosyn 3.375 GM Premix 50 ML @ 100 / 100 50 / 50 50 / 50 100 mls/hr IV.SIG Q6H NOAH Rx#: [id number] Oral 0 / 0 Tube Feeding 444 / 444 0 / 0 Tube Irrigant 0 / 0 Water Bolus Amount 0 / 0 Other 0 / 0 Output: Urine 225 / 225 0 / 0 Urine Amount (Catheter) 500 / 500 Condom 500 / 500 Other: # Voids 2 # Incontinent Voids 3 2 Date of Last Bowel Movement 01/10/18 01/10/18 # Bowel Movements 2 4 # Incontinent Bowel Movements 1 4 Result Diagrams: 01/12/18 05:13 01/12/18 05:12 Other Results: Microbiology 01/08/18 09:11 Sputum - Endotracheal Gram Stain - Final 01/08/18 09:11 Sputum - Endotracheal Sputum Culture - Final Heavy growth normal respiratory vaishnavi 01/02/18 03:40 Stool Stool Occult Blood (LUIS FELIPE) - Final Hemoccult positive 12/19/17 21:20 Blood - Peripheral Aerobic Blood Culture - Final No growth in 5 days 12/19/17 21:20 Blood - Peripheral Anaerobic Blood Culture - Final No growth in 5 days 12/19/17 21:30 Blood - Peripheral Aerobic Blood Culture - Final No growth in 5 days 12/19/17 21:30 Blood - Peripheral Anaerobic Blood Culture - Final No growth in 5 days 12/20/17 14:10 Sputum - Endotracheal Gram Stain - Final 12/20/17 14:10 Sputum - Endotracheal Sputum Culture - Final Heavy growth normal respiratory vaishnavi 12/20/17 11:50 Clean Catch Urine Urine Culture - Final No growth in 48 hours 12/20/17 11:50 Urine - Catheterized Urine Legionella Antigen - Final Presumptive negative for Legionella pneumophila serogroup 1 antigen in urine, suggesting no recent or recurrent infection. Infection due to Legionella cannot be ruled out since other serogroups and species may cause disease, antigen may not be present in urine in early infection, and the level of antigen present in the urine may be below the detection limit of the test. 12/20/17 11:50 Urine - Catheterized Urine Streptococcus pneumoniae Antigen ( M - Final Presumptive negative for streptococcus pneumoniae antigen, suggesting no current or recent infection. Infection due to Streptococcus pneumoniae cannot be ruled out since the antigen present in the sample may be below the detection limit of the test. Imaging: Chest X-Ray 12/19/17 21:26 CONCLUSION: Worsening airspace process right lower lung most likely pneumonia with completely opacified left hemithorax probably due to a pleural effusion and/or left lung consolidation/collapse. Underlying mass is difficult to exclude. Chest X-Ray 12/20/17 04:19 CONCLUSION: 1. Worsening right upper lobe consolidation. 2. Slightly improved right base consolidation. 3. Volume loss, consolidation and pleural effusion on the left slightly improved. Chest X-Ray 12/21/17 05:00 CONCLUSION: No significant interval change. Persistent left-sided pleural effusion and pulmonary parenchymal opacity along with hazy right lung opacity. Chest X-Ray 12/23/17 00:00 CONCLUSION: Endotracheal tube tip at the [place]. No other significant interval change. Persistent left pleural effusion and bilateral pulmonary parenchymal opacity. Chest X-Ray 12/24/17 06:00 CONCLUSION: No significant interval change. Left-sided pleural effusion and mild bilateral parenchymal opacity again seen. Chest X-Ray 12/25/17 06:00 CONCLUSION: No significant change. Chest X-Ray 12/29/17 12:02 CONCLUSION: 1. Interval extubation. 2. No significant change in the left pleural-based opacity calcification. Chest X-Ray 12/30/17 00:00 CONCLUSION: 1. Worsening airspace disease in the right mid to lower lung zones. 2. Persistent prominent left-sided pleural thickening and calcified pleural plaques with associated volume loss. 3. Stable right apical pleural-parenchymal scarring. Chest X-Ray 12/31/17 00:00 CONCLUSION: 1. Slightly improved right mid to lower lung zone airspace disease. 2. Persistent prominent diffuse left-sided pleural opacity/thickening with associated left lung volume loss. 3. Stable right apical pleural parenchymal scarring. Abdomen X-Ray 01/01/18 00:00 CONCLUSION: 1. No bowel obstruction, ileus or perforation. 2. Degenerative changes and scoliosis of the lumbar spine. Chest X-Ray 01/05/18 00:00 CONCLUSION: Stable chest with prominent lateral left-sided pleural opacity likely pleural effusion. Pleural-parenchymal density right lung is also stable. Chest CT 01/07/18 00:00 CONCLUSION: 1. Postsurgical features of suspected previous left-sided lobectomy with volume loss and mediastinal shift to the left. 2. Bulky left-sided pleural plaques with chronic appearing small to moderate sized loculated left pleural effusion. 3. Dense airspace consolidation in the superior segment of the right lower lobe with patchy interstitial and groundglass opacities throughout the right lower lobe. Differential considerations include pneumonia and aspiration in the appropriate clinical setting. 4. Trace right-sided pleural effusion with fluid extending into the major fissure. 5. Mild coronary artery calcifications. 6. Small amount of ascites in the visualized upper abdomen. Chest X-Ray 01/08/18 06:58 CONCLUSION: Stable chest following ablation. Moderate either pleural thickening or pleural fluid remains on the right. Moderate interstitial edema persist. Abdomen Ultrasound 01/09/18 00:00 CONCLUSION: 1. Limited examination due to obscuration by bowel gas. 2. Simple left renal cyst. 3. Moderate amount of ascites in the right upper quadrant. Chest X-Ray 01/10/18 06:00 CONCLUSION: Stable to slight increase in right basilar airspace disease. Loculated left pleural fluid and left basilar opacity are stable. Chest X-Ray 01/12/18 07:41 CONCLUSION: 1. Stable ETT and NGT. 2. Slightly improved airspace disease in the right mid to lower lung zones. 3. Persistent moderate loculated left-sided pleural effusion with associated left lung airspace disease and volume loss. Objective Remarks: GENERAL: 82-year-old male lying in bed orotracheally intubate HEENT: Normocephalic. Atraumatic. Pupils equal, round, reactive, conjugate. Mucous membranes are moist NECK: Trachea is midline. No JVD, orally intubated with ETT 7.5cm CHEST: B/l equal air entry, diminished at bases CARDIOVASCULAR: Normal rate, regular rhythm. S1, S2. No S4 per ABDOMEN: Soft, nontender, nondistended. No guarding. MUSCULOSKELETAL: Pulses 2+. significant evidence of scrotal edema. 1+ peripheral edema. No mottling NEUROLOGICAL: I arousable on the ventilator. Moves all 4 extremities spontaneously. Assessment and Plan - Assessment and Plan Plan: Neuro/psych: Acute metabolic encephalopathy- resolved Off sedation. 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 SBT daily. Will likely need trach/PEG tube placement. Patient is at high risk of reintubation if gets extubated as this is his second intubation Continue prednisone 10mg BID Pulmonary is following- Dr. Lazcano CT chest: Postsurgical features of suspected previous left-sided lobectomy with volume loss and mediastinal shift to the left. Bulky left-sided pleural plaques with chronic appearing small to moderate sized loculated left pleural effusion. Dense airspace consolidation in the superior segment of the right lower lobe with patchy interstitial and groundglass opacities throughout the right lower lobe. 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 Normal left ventricular size. Wall thickness is normal. No regional wall motion abnormalities are present. Diffuse calcification of the aortic valve but no significant stenosis. There is mild to moderate tricuspid valve regurgitation. The estimated pulmonary arterial pressure is 76.9 mmHg with severe pulmonary hypertension. Continue furosemide 20 mg IV daily/home medications 40 mg by tube daily As needed labetalol and Nitropaste for hypertension Renal/: History of nephrolithiasis Monitor renal function, I/O's, electrolytes replacement per protocol. FEN/GI: Severe acute protein calorie malnutrition Hep C IgG positive On tube feeds- Glucerna 1.5 @45ml/hr Lansoprazole for GI prophylaxis Docusate sodium/senna 1 tablet twice daily for bowel regimen GI is following US abdomen: Limited exam due to obscuration by bowel gas.Simple left renal cyst. small ascites in the right upper quadrant. Check hepatitis C genotype and PCR viral load ID: Healthcare associated pneumonia Severe sepsis- present on admission Normocytic anemia Thrombocytopenia Abx per ID (piperacillin/tazobactam) Monitor for signs of infections ( Fever, WBC) Follow up on sputum 01/08 normal resp vaishnavi Sputum culture 12/20-shea resp vaishnavi Blood cultures 12/19 no growth Urine UA with urine culture 12/20-NGTD Negative Legionella and pneumococcal urinary antigens Endocrine: Hyperglycemia of critical illness -- On medium SSI , continue insulin detemir [id number] Heme: Ascitic anemia Thrombocytopenia Monitor CBC, Hep PLT ab negative MSK:: History of left IT nailing 11/14 Vitamin D deficiency PT evaluate and treat Prophylaxis: GI Prophylaxis Lansoprazole DVT Prophylaxis -- SCDs - Enoxaparin held for anemia, thrombocytopenia and Hemoccult positive Lines: Peripheral IVs. Family considering PICC line All questions answered and they all voiced understanding of his condition Level 3
--- NOTE | 2018-01-12 10:33 | P.PN ---
Subjective Interval history: Awake and assists the vent . On CPAP again today, FIo2 35 %. Good output. has scrotal swelling. Physical Exam Vital signs: Vital Signs 01/11/18 11:16 01/11/18 11:18 01/11/18 11:20 Temperature Pulse Rate 97 H Respiratory Rate 24 23 Blood Pressure Pulse Oximetry 96 96 01/11/18 12:00 01/11/18 14:00 01/11/18 15:27 Temperature 98.4 F Pulse Rate 97 H 97 H Respiratory Rate 29 H Blood Pressure 142/65 H Pulse Oximetry 94 L 100 01/11/18 15:31 01/11/18 16:00 01/11/18 16:31 Temperature 98.6 F Pulse Rate 97 H 102 H 97 H Respiratory Rate 27 H 24 23 Blood Pressure 169/74 H 116/57 L Pulse Oximetry 88 L 91 L 01/11/18 17:00 01/11/18 17:40 01/11/18 18:00 Temperature Pulse Rate 100 H 101 H 100 H Respiratory Rate 26 H 27 H 25 H Blood Pressure 122/58 L 135/88 Pulse Oximetry 90 L 95 94 L 01/11/18 18:05 01/11/18 19:00 01/11/18 19:30 Temperature Pulse Rate 100 H 100 H Respiratory Rate 26 H 25 H 21 Blood Pressure 136/62 126/59 L Pulse Oximetry 94 L 96 95 01/11/18 19:36 01/11/18 20:00 01/11/18 21:00 Temperature 98.8 F Pulse Rate 98 H 102 H 99 H Respiratory Rate 22 30 H 21 Blood Pressure 132/64 124/58 L Pulse Oximetry 95 94 L 01/11/18 22:00 01/11/18 22:58 01/11/18 23:00 Temperature Pulse Rate 86 92 H 92 H Respiratory Rate 26 H 18 19 Blood Pressure 128/61 109/55 L Pulse Oximetry 94 L 97 01/12/18 00:00 01/12/18 01:00 01/12/18 02:00 Temperature 97.9 F Pulse Rate 86 93 H 86 Respiratory Rate 19 21 18 Blood Pressure 116/57 L 128/62 119/59 L Pulse Oximetry 96 96 01/12/18 03:00 01/12/18 03:32 01/12/18 03:50 Temperature Pulse Rate 93 H 89 Respiratory Rate 22 18 18 Blood Pressure 142/63 H Pulse Oximetry 100 01/12/18 04:00 01/12/18 05:00 01/12/18 06:00 Temperature 98.2 F Pulse Rate 86 92 H 89 Respiratory Rate 18 18 19 Blood Pressure 114/55 L 118/58 L 120/59 L Pulse Oximetry 96 95 94 L 01/12/18 07:00 01/12/18 07:39 01/12/18 07:48 Temperature Pulse Rate 86 89 Respiratory Rate 18 21 21 Blood Pressure 118/58 L Pulse Oximetry 92 L 93 L 01/12/18 07:58 Temperature Pulse Rate Respiratory Rate 27 H Blood Pressure Pulse Oximetry 94 L Intake & Output 01/11/18 01/12/18 01/12/18 18:59 06:59 18:59 Intake Total 844 / 844 50 / 50 50 / 50 Output Total 225 / 225 500 / 500 Balance 619 / 619 -450 / -450 50 / 50 Weight 72.4 kg Intake: IV 400 / 400 50 / 50 50 / 50 Diprivan 1000 mg/100 ml Inj 1, 100 / 100 000 mg In 100 ml @ 5 MCG/KG/MIN 2.22 mls/hr IV.CONT TITRATE PRN Rx#:[id number] Merrem Inj 1,000 MG In NS Inj 200 / 200 100 ML @ 200 mls/hr IV.SIG Q8H [facility] Rx#:[id number] Zosyn 3.375 GM Premix 50 ML @ 100 / 100 50 / 50 50 / 50 100 mls/hr IV.SIG Q6H [facility] Rx#: [id number] Oral 0 / 0 Tube Feeding 444 / 444 0 / 0 Tube Irrigant 0 / 0 Water Bolus Amount 0 / 0 Other 0 / 0 Output: Urine 225 / 225 0 / 0 Urine Amount (Catheter) 500 / 500 Condom 500 / 500 Other: # Voids 2 # Incontinent Voids 3 2 Date of Last Bowel Movement 01/10/18 01/10/18 # Bowel Movements 2 4 # Incontinent Bowel Movements 1 4 Narrative: General:Elderly W/m , Awake and in no distress. HEENT:PERRL. Throat secretions .ET tube is in. Cardiovascular:Regular Rhythm, S1 S2 ,no murmur Respiratory : Occ Basal crackles and wheezes and decreased breath sounds bilateral. Abdomen: soft, nontender, positive bowel sounds. Extremities: 1 + pitting edema bilateral lower extremities. Neuro:Alert and moves extremities. No Focal deficits. - Urinary Catheter Management Straight Cath placed during this visit: yes, but has since been removed by the nurse Reason for continuing: Not indwelling catheter Insertion date: 12/23/17 Insertion time: 01:00 Removal date: 12/22/17 Removal time: 01:00 Condom Cath placed during this visit: no Results - Labs CBC & Chem 7: 01/12/18 05:13 01/12/18 05:12 Laboratory Results - last 24 hr 01/11/18 01/11/18 01/11/18 06:32 12:04 16:43 CBC w Diff WBC Corrected WBC RBC Hgb Hct MCV MCH MCHC RDW Plt Count MPV Prelim Diff (Auto) Immature Gran % (Auto) Neut % (Auto) Lymph % (Auto) [place] % (Auto) Eos % (Auto) Baso % (Auto) Immature Gran # (Auto) Neut # (Auto) Lymph # (Auto) [place] # (Auto) Eos # (Auto) Baso # (Auto) WBC Differential Diff Scan Seg Neuts % (Manual) Band Neuts % (Manual) Lymphocytes % (Manual) Atypical Lymphs % (Man) Monocytes % (Manual) Eosinophils % (Manual) Basophils % (Manual) Metamyelocytes % (Man) Myelocytes % (Man) Promyelocytes % (Man) Blast Cells % (Manual) Plasma Cell % (Manual) Other Cells % Abs Neuts (Manual) Nucleated RBCs/100 WBC Differential Comment Hypersegmented Neuts Smudge Cells Toxic Granulation Toxic Vacuolation Dohle Bodies Platelet Estimate Platelet Morphology RBC Morphology Dimorphic RBCs Polychromasia Basophilic Stippling Spherocytes Pappenheimer Bodies Sickle Cells Target Cells Tear Drop Cells Ovalocytes Stomatocytes Helmet Cells [place] Bodies [place] Cells Acanthocytes (Spur) Rouleaux Keratocytes Hematology Comments Sodium Potassium Chloride Carbon Dioxide Anion Gap BUN Creatinine Estimated GFR POC Glucose 234 H 226 H Random Glucose Calcium Phosphorus Magnesium Iron 22 L Ferritin 112 Total Bilirubin AST ALT Alkaline Phosphatase Total Protein Albumin IgA Endomysial Ab Titer Endomysial IgA Ab Tiss Transglutamin IgG Tiss Transglutamin IgA Celiac Disease Interp Hepatitis A IgM Ab Hep Bs Antigen Hep B Core IgM Ab Hep C IgG Ab 01/11/18 01/12/18 01/12/18 20:14 00:30 05:12 CBC w Diff WBC Corrected WBC RBC Hgb Hct MCV MCH MCHC RDW Plt Count MPV Prelim Diff (Auto) Immature Gran % (Auto) Neut % (Auto) Lymph % (Auto) [place] % (Auto) Eos % (Auto) Baso % (Auto) Immature Gran # (Auto) Neut # (Auto) Lymph # (Auto) [place] # (Auto) Eos # (Auto) Baso # (Auto) WBC Differential Diff Scan Seg Neuts % (Manual) Band Neuts % (Manual) Lymphocytes % (Manual) Atypical Lymphs % (Man) Monocytes % (Manual) Eosinophils % (Manual) Basophils % (Manual) Metamyelocytes % (Man) Myelocytes % (Man) Promyelocytes % (Man) Blast Cells % (Manual) Plasma Cell % (Manual) Other Cells % Abs Neuts (Manual) Nucleated RBCs/100 WBC Differential Comment Hypersegmented Neuts Smudge Cells Toxic Granulation Toxic Vacuolation Dohle Bodies Platelet Estimate Platelet Morphology RBC Morphology Dimorphic RBCs Polychromasia Basophilic Stippling Spherocytes Pappenheimer Bodies Sickle Cells Target Cells Tear Drop Cells Ovalocytes Stomatocytes Helmet Cells [place] Bodies [place] Cells Acanthocytes (Spur) Rouleaux Keratocytes Hematology Comments Sodium Potassium Chloride Carbon Dioxide Anion Gap BUN Creatinine Estimated GFR POC Glucose 164 H 197 H Random Glucose Calcium Phosphorus Magnesium Iron Ferritin Total Bilirubin AST ALT Alkaline Phosphatase Total Protein Albumin IgA Endomysial Ab Titer Endomysial IgA Ab Tiss Transglutamin IgG Tiss Transglutamin IgA Celiac Disease Interp Hepatitis A IgM Ab Nonreactive Hep Bs Antigen Nonreactive Hep B Core IgM Ab Nonreactive Hep C IgG Ab Reactive H 01/12/18 01/12/18 01/12/18 05:12 05:12 05:12 CBC w Diff WBC Corrected WBC RBC Hgb Hct MCV MCH MCHC RDW Plt Count MPV Prelim Diff (Auto) Immature Gran % (Auto) Neut % (Auto) Lymph % (Auto) [place] % (Auto) Eos % (Auto) Baso % (Auto) Immature Gran # (Auto) Neut # (Auto) Lymph # (Auto) [place] # (Auto) Eos # (Auto) Baso # (Auto) WBC Differential Diff Scan Seg Neuts % (Manual) Band Neuts % (Manual) Lymphocytes % (Manual) Atypical Lymphs % (Man) Monocytes % (Manual) Eosinophils % (Manual) Basophils % (Manual) Metamyelocytes % (Man) Myelocytes % (Man) Promyelocytes % (Man) Blast Cells % (Manual) Plasma Cell % (Manual) Other Cells % Abs Neuts (Manual) Nucleated RBCs/100 WBC Differential Comment Hypersegmented Neuts Smudge Cells Toxic Granulation Toxic Vacuolation Dohle Bodies Platelet Estimate Platelet Morphology RBC Morphology Dimorphic RBCs Polychromasia Basophilic Stippling Spherocytes Pappenheimer Bodies Sickle Cells Target Cells Tear Drop Cells Ovalocytes Stomatocytes Helmet Cells [place] Bodies [place] Cells Acanthocytes (Spur) Rouleaux Keratocytes Hematology Comments Sodium 147 H Potassium 4.2 Chloride 108 H Carbon Dioxide 31.4 Anion Gap 8 BUN 49 H Creatinine 1.00 Estimated GFR 72 L POC Glucose 202 H Random Glucose 187 H Calcium 8.1 L Phosphorus 3.0 Magnesium 2.6 H Iron Ferritin Total Bilirubin 0.8 AST 57 H ALT 74 Alkaline Phosphatase 245 H Total Protein 5.2 L Albumin 2.1 L IgA Cancelled Endomysial Ab Titer Cancelled Endomysial IgA Ab Cancelled Tiss Transglutamin IgG Cancelled Tiss Transglutamin IgA Cancelled Celiac Disease Interp Cancelled Hepatitis A IgM Ab Hep Bs Antigen Hep B Core IgM Ab Hep C IgG Ab 01/12/18 01/12/18 01/12/18 05:13 06:00 10:01 CBC w Diff Cancelled WBC 5.3 Cancelled Corrected WBC Cancelled RBC 2.62 L Cancelled Hgb 8.0 L Cancelled Hct 23.7 L Cancelled MCV 90.5 Cancelled MCH 30.4 Cancelled MCHC 33.6 Cancelled RDW 15.8 Cancelled Plt Count 73 L Cancelled MPV 8.8 Cancelled Prelim Diff (Auto) Slide review pending Cancelled Immature Gran % (Auto) Cancelled Neut % (Auto) 87.0 H Cancelled Lymph % (Auto) 7.5 L Cancelled [place] % (Auto) 4.8 Cancelled Eos % (Auto) 0.6 Cancelled Baso % (Auto) 0.1 Cancelled Immature Gran # (Auto) Cancelled Neut # (Auto) 4.6 Cancelled Lymph # (Auto) 0.4 L Cancelled [place] # (Auto) 0.3 Cancelled Eos # (Auto) 0.0 Cancelled Baso # (Auto) 0.0 Cancelled WBC Differential . Cancelled Diff Scan Auto diff confirmed Cancelled Seg Neuts % (Manual) Cancelled Band Neuts % (Manual) Cancelled Lymphocytes % (Manual) Cancelled Atypical Lymphs % (Man) Cancelled Monocytes % (Manual) Cancelled Eosinophils % (Manual) Cancelled Basophils % (Manual) Cancelled Metamyelocytes % (Man) Cancelled Myelocytes % (Man) Cancelled Promyelocytes % (Man) Cancelled Blast Cells % (Manual) Cancelled Plasma Cell % (Manual) Cancelled Other Cells % Cancelled Abs Neuts (Manual) Cancelled Nucleated RBCs/100 WBC Cancelled Differential Comment . Cancelled Hypersegmented Neuts Cancelled Smudge Cells Cancelled Toxic Granulation Cancelled Toxic Vacuolation Cancelled Dohle Bodies Cancelled Platelet Estimate Cancelled Platelet Morphology Cancelled RBC Morphology Cancelled Dimorphic RBCs Cancelled Polychromasia Cancelled Basophilic Stippling Cancelled Spherocytes Cancelled Pappenheimer Bodies Cancelled Sickle Cells Cancelled Target Cells Cancelled Tear Drop Cells Cancelled Ovalocytes Cancelled Stomatocytes Cancelled Helmet Cells Cancelled [place] Bodies Cancelled [place] Cells Cancelled Acanthocytes (Spur) Cancelled Rouleaux Cancelled Keratocytes Cancelled Hematology Comments Cancelled Sodium Potassium Chloride Carbon Dioxide Anion Gap BUN Creatinine Estimated GFR POC Glucose 185 H Random Glucose Calcium Phosphorus Magnesium Iron Ferritin Total Bilirubin AST ALT Alkaline Phosphatase Total Protein Albumin IgA Endomysial Ab Titer Endomysial IgA Ab Tiss Transglutamin IgG Tiss Transglutamin IgA Celiac Disease Interp Hepatitis A IgM Ab Hep Bs Antigen Hep B Core IgM Ab Hep C IgG Ab - Imaging Impressions Chest X-Ray 01/12/18 07:41 CONCLUSION: 1. Stable ETT and NGT. 2. Slightly improved airspace disease in the right mid to lower lung zones. 3. Persistent moderate loculated left-sided pleural effusion with associated left lung airspace disease and volume loss. Assessment and Plan - Assessment (1) Respiratory failure requiring intubation Code(s): J96.90 - Respiratory failure, unspecified, unspecified whether with hypoxia or hypercapnia Status: Acute (2) Pneumonia Code(s): J18.9 - Pneumonia, unspecified organism Status: Acute (3) CHF (congestive heart failure), NYHA class II Code(s): I50.9 - Heart failure, unspecified Status: Acute (4) CHF (congestive heart failure) Code(s): I50.9 - Heart failure, unspecified Status: Acute (5) Respiratory abnormalities Code(s): J98.9 - Respiratory disorder, unspecified Status: Acute (6) Emphysema of lung Code(s): J43.9 - Emphysema, unspecified Status: Acute (7) Borderline diabetes mellitus Code(s): R73.03 - Prediabetes Status: Acute (8) Fracture, intertrochanteric, left femur Code(s): S72.142A - Displaced intertrochanteric fracture of left femur, initial encounter for closed fracture Status: Acute (9) Nutrition, metabolism, and development symptoms Code(s): R63.8 - Other symptoms and signs concerning food and fluid intake Status: Acute - Plan RECOMMENDATIONS: 1. Ventilator support and wean PSV to 12 CPAP +5, and FIO2 to 35 % 2. Bronchodilators ,DuoNeb q.6 hr. 3. D/W family here. 4. Possible trach if not able to wean off vent this week. 5. Continue with Lasix 40 mg daily. 6. Cont antibiotics per ID. 7.,CPAP trial daily upto 12 Hrs. 8. Prednisone 10 mg BID 9. CXR ,BMP in am 10. Will consider bronchoscopy if CXR is not better.
[2018-01-12] MEDS: Chlorhexidine 0.12% Oral Kit 15 ML UDC OROPHARYNG SCH ×2 (10:56→20:07)
[2018-01-12] MEDS: predniSONE 10 MG Tablet PO SCH ×2 (10:56→20:04)
[2018-01-12] MEDS: Carboxymethylcellulose 0.5% Opth Drops 15 ML Bottle EACH EYE SCH ×2 (10:56→20:15)
[2018-01-12] MEDS ORDERED: Albumin Human 25% Inj 100 ML IV.SIG ONE (11:00)
--- NOTE | 2018-01-12 11:50 | P.PNGI ---
Subjective Interval history: Patient opens eyes to loud voice still requires ventilator management and intensive care. Family in room hemoglobin remains stable at 8 no obvious rectal bleeding or hematemesis, or melena stools <TimAlona M - Last Filed: 01/12/18 11:40> Physical Exam Vital signs: Vital Signs 01/11/18 12:00 01/11/18 14:00 01/11/18 15:27 Temperature 98.4 F Pulse Rate 97 H 97 H Respiratory Rate 29 H Blood Pressure 142/65 H Pulse Oximetry 94 L 100 01/11/18 15:31 01/11/18 16:00 01/11/18 16:31 Temperature 98.6 F Pulse Rate 97 H 102 H 97 H Respiratory Rate 27 H 24 23 Blood Pressure 169/74 H 116/57 L Pulse Oximetry 88 L 91 L 01/11/18 17:00 01/11/18 17:40 01/11/18 18:00 Temperature Pulse Rate 100 H 101 H 100 H Respiratory Rate 26 H 27 H 25 H Blood Pressure 122/58 L 135/88 Pulse Oximetry 90 L 95 94 L 01/11/18 18:05 01/11/18 19:00 01/11/18 19:30 Temperature Pulse Rate 100 H 100 H Respiratory Rate 26 H 25 H 21 Blood Pressure 136/62 126/59 L Pulse Oximetry 94 L 96 95 01/11/18 19:36 01/11/18 20:00 01/11/18 21:00 Temperature 98.8 F Pulse Rate 98 H 102 H 99 H Respiratory Rate 22 30 H 21 Blood Pressure 132/64 124/58 L Pulse Oximetry 95 94 L 01/11/18 22:00 01/11/18 22:58 01/11/18 23:00 Temperature Pulse Rate 86 92 H 92 H Respiratory Rate 26 H 18 19 Blood Pressure 128/61 109/55 L Pulse Oximetry 94 L 97 01/12/18 00:00 01/12/18 01:00 01/12/18 02:00 Temperature 97.9 F Pulse Rate 86 93 H 86 Respiratory Rate 19 21 18 Blood Pressure 116/57 L 128/62 119/59 L Pulse Oximetry 96 96 01/12/18 03:00 01/12/18 03:32 01/12/18 03:50 Temperature Pulse Rate 93 H 89 Respiratory Rate 22 18 18 Blood Pressure 142/63 H Pulse Oximetry 100 01/12/18 04:00 01/12/18 05:00 01/12/18 06:00 Temperature 98.2 F Pulse Rate 86 92 H 89 Respiratory Rate 18 18 19 Blood Pressure 114/55 L 118/58 L 120/59 L Pulse Oximetry 96 95 94 L 01/12/18 07:00 01/12/18 07:39 01/12/18 07:48 Temperature Pulse Rate 86 89 Respiratory Rate 18 21 21 Blood Pressure 118/58 L Pulse Oximetry 92 L 93 L 01/12/18 07:58 01/12/18 08:00 01/12/18 09:00 Temperature 97.6 F Pulse Rate 92 H 88 Respiratory Rate 27 H 30 H 22 Blood Pressure 124/57 L 129/60 Pulse Oximetry 94 L 93 L 91 L 01/12/18 10:00 01/12/18 11:00 Temperature Pulse Rate 88 86 Respiratory Rate 25 H 24 Blood Pressure 126/62 126/60 Pulse Oximetry 91 L 92 L Intake & Output 01/11/18 01/12/18 01/12/18 18:59 06:59 18:59 Intake Total 844 / 844 50 / 50 50 / 50 Output Total 225 / 225 500 / 500 Balance 619 / 619 -450 / -450 50 / 50 Weight 72.4 kg Intake: IV 400 / 400 50 / 50 50 / 50 Diprivan 1000 mg/100 ml Inj 1, 100 / 100 000 mg In 100 ml @ 5 MCG/KG/MIN 2.22 mls/hr IV.CONT TITRATE PRN Rx#:[id number] Merrem Inj 1,000 MG In NS Inj 200 / 200 100 ML @ 200 mls/hr IV.SIG Q8H NOAH Rx#:[id number] Zosyn 3.375 GM Premix 50 ML @ 100 / 100 50 / 50 50 / 50 100 mls/hr IV.SIG Q6H NOAH Rx#: [id number] Oral 0 / 0 Tube Feeding 444 / 444 0 / 0 Tube Irrigant 0 / 0 Water Bolus Amount 0 / 0 Other 0 / 0 Output: Urine 225 / 225 0 / 0 Urine Amount (Catheter) 500 / 500 Condom 500 / 500 Other: # Voids 2 # Incontinent Voids 3 2 Date of Last Bowel Movement 01/10/18 01/10/18 01/12/18 # Bowel Movements 2 4 # Incontinent Bowel Movements 1 4 - Constitutional mild distress, chronically ill appearing - Routine HEENT Exam Head: Present: normocephalic (Pale) ENT: Present: mucous membranes moist - Routine Respiratory Exam Present: patient mechanically ventilated - Routine Cardiovascular Exam Present: S1, S2 - Routine Abdominal Exam Present: soft (Soft bowel sounds noted, no abdominal distention or tenderness to light palpation) - Urinary Catheter Management Straight Cath placed during this visit: yes, but has since been removed by the nurse Reason for continuing: Not indwelling catheter Insertion date: 12/23/17 Insertion time: 01:00 Removal date: 12/22/17 Removal time: 01:00 Condom Cath placed during this visit: no <Alona Dumont - Last Filed: 01/12/18 11:40> Vital signs: Vital Signs 01/11/18 19:00 01/11/18 19:30 01/11/18 19:36 Temperature Pulse Rate 100 H 98 H Respiratory Rate 25 H 21 22 Blood Pressure 126/59 L Pulse Oximetry 96 95 01/11/18 20:00 01/11/18 21:00 01/11/18 22:00 Temperature 98.8 F Pulse Rate 102 H 99 H 86 Respiratory Rate 30 H 21 26 H Blood Pressure 132/64 124/58 L 128/61 Pulse Oximetry 95 94 L 94 L 01/11/18 22:58 01/11/18 23:00 01/12/18 00:00 Temperature 97.9 F Pulse Rate 92 H 92 H 86 Respiratory Rate 18 19 19 Blood Pressure 109/55 L 116/57 L Pulse Oximetry 97 96 01/12/18 01:00 01/12/18 02:00 01/12/18 03:00 Temperature Pulse Rate 93 H 86 93 H Respiratory Rate 21 18 22 Blood Pressure 128/62 119/59 L 142/63 H Pulse Oximetry 96 01/12/18 03:32 01/12/18 03:50 01/12/18 04:00 Temperature 98.2 F Pulse Rate 89 86 Respiratory Rate 18 18 18 Blood Pressure 114/55 L Pulse Oximetry 100 96 01/12/18 05:00 01/12/18 06:00 01/12/18 07:00 Temperature Pulse Rate 92 H 89 86 Respiratory Rate 18 19 18 Blood Pressure 118/58 L 120/59 L 118/58 L Pulse Oximetry 95 94 L 92 L 10/16/18 07:39 01/12/18 07:48 01/12/18 07:58 Temperature Pulse Rate 89 Respiratory Rate 21 21 27 H Blood Pressure Pulse Oximetry 93 L 94 L 01/12/18 08:00 01/12/18 09:00 01/12/18 10:00 Temperature 97.6 F Pulse Rate 92 H 88 88 Respiratory Rate 30 H 22 25 H Blood Pressure 124/57 L 129/60 126/62 Pulse Oximetry 93 L 91 L 91 L 01/12/18 11:00 01/12/18 11:53 01/12/18 11:54 Temperature Pulse Rate 86 91 H Respiratory Rate 24 26 H 27 H Blood Pressure 126/60 Pulse Oximetry 92 L 93 L 01/12/18 12:00 01/12/18 13:00 01/12/18 14:00 Temperature 97.8 F Pulse Rate 92 H 91 H 98 H Respiratory Rate 33 H 25 H 30 H Blood Pressure 159/68 H 137/63 116/79 Pulse Oximetry 92 L 91 L 88 L 01/12/18 15:00 01/12/18 15:48 01/12/18 16:00 Temperature 98.8 F Pulse Rate 100 H 94 H 91 H Respiratory Rate 35 H 17 17 Blood Pressure 151/67 H 112/56 L Pulse Oximetry 86 L 93 L 90 L 01/12/18 18:00 Temperature Pulse Rate 92 H Respiratory Rate Blood Pressure Pulse Oximetry Intake & Output 01/11/18 01/12/18 01/12/18 18:59 06:59 18:59 Intake Total 844 / 844 50 / 50 1338 / 1338 Output Total 225 / 225 500 / 500 1200 / 1200 Balance 619 / 619 -450 / -450 138 / 138 Weight 72.4 kg Intake: IV 400 / 400 50 / 50 200 / 200 Diprivan 1000 mg/100 ml Inj 1, 100 / 100 000 mg In 100 ml @ 5 MCG/KG/MIN 2.22 mls/hr IV.CONT TITRATE PRN Rx#:[id number] Flexbumin 25% Inj 100 ML @ 60 100 / 100 mls/hr IV.SIG ONCE ONE Rx#: [id number] Merrem Inj 1,000 MG In NS Inj 200 / 200 100 ML @ 200 mls/hr IV.SIG Q8H NOAH Rx#:[id number] Zosyn 3.375 GM Premix 50 ML @ 100 / 100 50 / 50 100 / 100 100 mls/hr IV.SIG Q6H NOAH Rx#: [id number] Oral 0 / 0 Tube Feeding 444 / 444 0 / 0 958 / 958 Tube Irrigant 0 / 0 Water Bolus Amount 0 / 0 180 / 180 Other 0 / 0 Output: Urine 225 / 225 0 / 0 1200 / 1200 Urine Amount (Catheter) 500 / 500 Condom 500 / 500 Other: # Voids 2 # Incontinent Voids 3 2 Date of Last Bowel Movement 01/10/18 01/10/18 01/12/18 # Bowel Movements 2 4 # Incontinent Bowel Movements 1 4 7 - Urinary Catheter Management Straight Cath placed during this visit: no Condom Cath placed during this visit: no <Kelly Aranda - Last Filed: 01/12/18 18:53> Results - Labs CBC & Chem 7: 01/12/18 05:13 01/12/18 05:12 Laboratory Results - last 24 hr 01/11/18 01/11/18 01/11/18 06:32 12:04 16:43 CBC w Diff WBC Corrected WBC RBC Hgb Hct MCV MCH MCHC RDW Plt Count MPV Prelim Diff (Auto) Immature Gran % (Auto) Neut % (Auto) Lymph % (Auto) Arthur % (Auto) Eos % (Auto) Baso % (Auto) Immature Gran # (Auto) Neut # (Auto) Lymph # (Auto) Arthur # (Auto) Eos # (Auto) Baso # (Auto) WBC Differential Diff Scan Seg Neuts % (Manual) Band Neuts % (Manual) Lymphocytes % (Manual) Atypical Lymphs % (Man) Monocytes % (Manual) Eosinophils % (Manual) Basophils % (Manual) Metamyelocytes % (Man) Myelocytes % (Man) Promyelocytes % (Man) Blast Cells % (Manual) Plasma Cell % (Manual) Other Cells % Abs Neuts (Manual) Nucleated RBCs/100 WBC Differential Comment Hypersegmented Neuts Smudge Cells Toxic Granulation Toxic Vacuolation Dohle Bodies Platelet Estimate Platelet Morphology RBC Morphology Dimorphic RBCs Polychromasia Basophilic Stippling Spherocytes Pappenheimer Bodies Sickle Cells Target Cells Tear Drop Cells Ovalocytes Stomatocytes Helmet Cells [place] Bodies [place] Cells Acanthocytes (Spur) Rouleaux Keratocytes Hematology Comments Sodium Potassium Chloride Carbon Dioxide Anion Gap BUN Creatinine Estimated GFR POC Glucose 234 H 226 H Random Glucose Calcium Phosphorus Magnesium Iron 22 L Ferritin 112 Total Bilirubin AST ALT Alkaline Phosphatase Total Protein Albumin IgA Endomysial Ab Titer Endomysial IgA Ab Tiss Transglutamin IgG Tiss Transglutamin IgA Celiac Disease Interp Hepatitis A IgM Ab Hep Bs Antigen Hep B Core IgM Ab Hep C IgG Ab 01/11/18 01/12/18 01/12/18 20:14 00:30 05:12 CBC w Diff WBC Corrected WBC RBC Hgb Hct MCV MCH MCHC RDW Plt Count MPV Prelim Diff (Auto) Immature Gran % (Auto) Neut % (Auto) Lymph % (Auto) Arthur % (Auto) Eos % (Auto) Baso % (Auto) Immature Gran # (Auto) Neut # (Auto) Lymph # (Auto) Arthur # (Auto) Eos # (Auto) Baso # (Auto) WBC Differential Diff Scan Seg Neuts % (Manual) Band Neuts % (Manual) Lymphocytes % (Manual) Atypical Lymphs % (Man) Monocytes % (Manual) Eosinophils % (Manual) Basophils % (Manual) Metamyelocytes % (Man) Myelocytes % (Man) Promyelocytes % (Man) Blast Cells % (Manual) Plasma Cell % (Manual) Other Cells % Abs Neuts (Manual) Nucleated RBCs/100 WBC Differential Comment Hypersegmented Neuts Smudge Cells Toxic Granulation Toxic Vacuolation Dohle Bodies Platelet Estimate Platelet Morphology RBC Morphology Dimorphic RBCs Polychromasia Basophilic Stippling Spherocytes Pappenheimer Bodies Sickle Cells Target Cells Tear Drop Cells Ovalocytes Stomatocytes Helmet Cells [place] Bodies Sarmad Cells Acanthocytes (Spur) Rouleaux Keratocytes Hematology Comments Sodium Potassium Chloride Carbon Dioxide Anion Gap BUN Creatinine Estimated GFR POC Glucose 164 H 197 H Random Glucose Calcium Phosphorus Magnesium Iron Ferritin Total Bilirubin AST ALT Alkaline Phosphatase Total Protein Albumin IgA Endomysial Ab Titer Endomysial IgA Ab Tiss Transglutamin IgG Tiss Transglutamin IgA Celiac Disease Interp Hepatitis A IgM Ab Nonreactive Hep Bs Antigen Nonreactive Hep B Core IgM Ab Nonreactive Hep C IgG Ab Reactive H 01/12/18 01/12/18 01/12/18 05:12 05:12 05:12 CBC w Diff WBC Corrected WBC RBC Hgb Hct MCV MCH MCHC RDW Plt Count MPV Prelim Diff (Auto) Immature Gran % (Auto) Neut % (Auto) Lymph % (Auto) Arthur % (Auto) Eos % (Auto) Baso % (Auto) Immature Gran # (Auto) Neut # (Auto) Lymph # (Auto) Arthur # (Auto) Eos # (Auto) Baso # (Auto) WBC Differential Diff Scan Seg Neuts % (Manual) Band Neuts % (Manual) Lymphocytes % (Manual) Atypical Lymphs % (Man) Monocytes % (Manual) Eosinophils % (Manual) Basophils % (Manual) Metamyelocytes % (Man) Myelocytes % (Man) Promyelocytes % (Man) Blast Cells % (Manual) Plasma Cell % (Manual) Other Cells % Abs Neuts (Manual) Nucleated RBCs/100 WBC Differential Comment Hypersegmented Neuts Smudge Cells Toxic Granulation Toxic Vacuolation Dohle Bodies Platelet Estimate Platelet Morphology RBC Morphology Dimorphic RBCs Polychromasia Basophilic Stippling Spherocytes Pappenheimer Bodies Sickle Cells Target Cells Tear Drop Cells Ovalocytes Stomatocytes Helmet Cells [place] Bodies Sarmad Cells Acanthocytes (Spur) Rouleaux Keratocytes Hematology Comments Sodium 147 H Potassium 4.2 Chloride 108 H Carbon Dioxide 31.4 Anion Gap 8 BUN 49 H Creatinine 1.00 Estimated GFR 72 L POC Glucose 202 H Random Glucose 187 H Calcium 8.1 L Phosphorus 3.0 Magnesium 2.6 H Iron Ferritin Total Bilirubin 0.8 AST 57 H ALT 74 Alkaline Phosphatase 245 H Total Protein 5.2 L Albumin 2.1 L IgA Cancelled Endomysial Ab Titer Cancelled Endomysial IgA Ab Cancelled Tiss Transglutamin IgG Cancelled Tiss Transglutamin IgA Cancelled Celiac Disease Interp Cancelled Hepatitis A IgM Ab Hep Bs Antigen Hep B Core IgM Ab Hep C IgG Ab 01/12/18 01/12/18 01/12/18 05:13 06:00 10:01 CBC w Diff Cancelled WBC 5.3 Cancelled Corrected WBC Cancelled RBC 2.62 L Cancelled Hgb 8.0 L Cancelled Hct 23.7 L Cancelled MCV 90.5 Cancelled MCH 30.4 Cancelled MCHC 33.6 Cancelled RDW 15.8 Cancelled Plt Count 73 L Cancelled MPV 8.8 Cancelled Prelim Diff (Auto) Slide review pending Cancelled Immature Gran % (Auto) Cancelled Neut % (Auto) 87.0 H Cancelled Lymph % (Auto) 7.5 L Cancelled Arthur % (Auto) 4.8 Cancelled Eos % (Auto) 0.6 Cancelled Baso % (Auto) 0.1 Cancelled Immature Gran # (Auto) Cancelled Neut # (Auto) 4.6 Cancelled Lymph # (Auto) 0.4 L Cancelled Arthur # (Auto) 0.3 Cancelled Eos # (Auto) 0.0 Cancelled Baso # (Auto) 0.0 Cancelled WBC Differential . Cancelled Diff Scan Auto diff confirmed Cancelled Seg Neuts % (Manual) Cancelled Band Neuts % (Manual) Cancelled Lymphocytes % (Manual) Cancelled Atypical Lymphs % (Man) Cancelled Monocytes % (Manual) Cancelled Eosinophils % (Manual) Cancelled Basophils % (Manual) Cancelled Metamyelocytes % (Man) Cancelled Myelocytes % (Man) Cancelled Promyelocytes % (Man) Cancelled Blast Cells % (Manual) Cancelled Plasma Cell % (Manual) Cancelled Other Cells % Cancelled Abs Neuts (Manual) Cancelled Nucleated RBCs/100 WBC Cancelled Differential Comment . Cancelled Hypersegmented Neuts Cancelled Smudge Cells Cancelled Toxic Granulation Cancelled Toxic Vacuolation Cancelled Dohle Bodies Cancelled Platelet Estimate Cancelled Platelet Morphology Cancelled RBC Morphology Cancelled Dimorphic RBCs Cancelled Polychromasia Cancelled Basophilic Stippling Cancelled Spherocytes Cancelled Pappenheimer Bodies Cancelled Sickle Cells Cancelled Target Cells Cancelled Tear Drop Cells Cancelled Ovalocytes Cancelled Stomatocytes Cancelled Helmet Cells Cancelled [place] Bodies Cancelled [place]armad Cells Cancelled Acanthocytes (Spur) Cancelled Rouleaux Cancelled Keratocytes Cancelled Hematology Comments Cancelled Sodium Potassium Chloride Carbon Dioxide Anion Gap BUN Creatinine Estimated GFR POC Glucose 185 H Random Glucose Calcium Phosphorus Magnesium Iron Ferritin Total Bilirubin AST ALT Alkaline Phosphatase Total Protein Albumin IgA Endomysial Ab Titer Endomysial IgA Ab Tiss Transglutamin IgG Tiss Transglutamin IgA Celiac Disease Interp Hepatitis A IgM Ab Hep Bs Antigen Hep B Core IgM Ab Hep C IgG Ab - Imaging Impressions Chest X-Ray 01/12/18 07:41 CONCLUSION: 1. Stable ETT and NGT. 2. Slightly improved airspace disease in the right mid to lower lung zones. 3. Persistent moderate loculated left-sided pleural effusion with associated left lung airspace disease and volume loss. <[place],Alona M - Last Filed: 01/12/18 11:40> - Labs CBC & Chem 7: 01/12/18 05:13 01/12/18 05:12 Laboratory Results - last 24 hr 01/11/18 01/12/18 01/12/18 20:14 00:30 05:12 CBC w Diff WBC Corrected WBC RBC Hgb Hct MCV MCH MCHC RDW Plt Count MPV Prelim Diff (Auto) Immature Gran % (Auto) Neut % (Auto) Lymph % (Auto) Arthur % (Auto) Eos % (Auto) Baso % (Auto) Immature Gran # (Auto) Neut # (Auto) Lymph # (Auto) Arthur # (Auto) Eos # (Auto) Baso # (Auto) WBC Differential Diff Scan Seg Neuts % (Manual) Band Neuts % (Manual) Lymphocytes % (Manual) Atypical Lymphs % (Man) Monocytes % (Manual) Eosinophils % (Manual) Basophils % (Manual) Metamyelocytes % (Man) Myelocytes % (Man) Promyelocytes % (Man) Blast Cells % (Manual) Plasma Cell % (Manual) Other Cells % Abs Neuts (Manual) Nucleated RBCs/100 WBC Differential Comment Hypersegmented Neuts Smudge Cells Toxic Granulation Toxic Vacuolation Dohle Bodies Platelet Estimate Platelet Morphology RBC Morphology Dimorphic RBCs Polychromasia Basophilic Stippling Spherocytes Pappenheimer Bodies Sickle Cells Target Cells Tear Drop Cells Ovalocytes Stomatocytes Helmet Cells [place] Bodies [place]armad Cells Acanthocytes (Spur) Rouleaux Keratocytes Hematology Comments Sodium Potassium Chloride Carbon Dioxide Anion Gap BUN Creatinine Estimated GFR POC Glucose 164 H 197 H Random Glucose Calcium Phosphorus Magnesium Total Bilirubin AST ALT Alkaline Phosphatase Total Protein Albumin Stl C.difficile DNA Amp St C. diff Tox Epid 027 IgA Endomysial Ab Titer Endomysial IgA Ab Tiss Transglutamin IgG Tiss Transglutamin IgA Celiac Disease Interp Hepatitis A IgM Ab Nonreactive Hep Bs Antigen Nonreactive Hep B Core IgM Ab Nonreactive Hep C IgG Ab Reactive H 01/12/18 01/12/18 01/12/18 05:12 05:12 05:12 CBC w Diff WBC Corrected WBC RBC Hgb Hct MCV MCH MCHC RDW Plt Count MPV Prelim Diff (Auto) Immature Gran % (Auto) Neut % (Auto) Lymph % (Auto) Arthur % (Auto) Eos % (Auto) Baso % (Auto) Immature Gran # (Auto) Neut # (Auto) Lymph # (Auto) Arthur # (Auto) Eos # (Auto) Baso # (Auto) WBC Differential Diff Scan Seg Neuts % (Manual) Band Neuts % (Manual) Lymphocytes % (Manual) Atypical Lymphs % (Man) Monocytes % (Manual) Eosinophils % (Manual) Basophils % (Manual) Metamyelocytes % (Man) Myelocytes % (Man) Promyelocytes % (Man) Blast Cells % (Manual) Plasma Cell % (Manual) Other Cells % Abs Neuts (Manual) Nucleated RBCs/100 WBC Differential Comment Hypersegmented Neuts Smudge Cells Toxic Granulation Toxic Vacuolation Dohle Bodies Platelet Estimate Platelet Morphology RBC Morphology Dimorphic RBCs Polychromasia Basophilic Stippling Spherocytes Pappenheimer Bodies Sickle Cells Target Cells Tear Drop Cells Ovalocytes Stomatocytes Helmet Cells [place] Bodies [place] Cells Acanthocytes (Spur) Rouleaux Keratocytes Hematology Comments Sodium 147 H Potassium 4.2 Chloride 108 H Carbon Dioxide 31.4 Anion Gap 8 BUN 49 H Creatinine 1.00 Estimated GFR 72 L POC Glucose 202 H Random Glucose 187 H Calcium 8.1 L Phosphorus 3.0 Magnesium 2.6 H Total Bilirubin 0.8 AST 57 H ALT 74 Alkaline Phosphatase 245 H Total Protein 5.2 L Albumin 2.1 L Stl C.difficile DNA Amp St C. diff Tox Epid 027 IgA Cancelled Endomysial Ab Titer Cancelled Endomysial IgA Ab Cancelled Tiss Transglutamin IgG Cancelled Tiss Transglutamin IgA Cancelled Celiac Disease Interp Cancelled Hepatitis A IgM Ab Hep Bs Antigen Hep B Core IgM Ab Hep C IgG Ab 01/12/18 01/12/18 01/12/18 05:13 06:00 09:45 CBC w Diff Cancelled WBC 5.3 Cancelled Corrected WBC Cancelled RBC 2.62 L Cancelled Hgb 8.0 L Cancelled Hct 23.7 L Cancelled MCV 90.5 Cancelled MCH 30.4 Cancelled MCHC 33.6 Cancelled RDW 15.8 Cancelled Plt Count 73 L Cancelled MPV 8.8 Cancelled Prelim Diff (Auto) Slide review pending Cancelled Immature Gran % (Auto) Cancelled Neut % (Auto) 87.0 H Cancelled Lymph % (Auto) 7.5 L Cancelled Arthur % (Auto) 4.8 Cancelled Eos % (Auto) 0.6 Cancelled Baso % (Auto) 0.1 Cancelled Immature Gran # (Auto) Cancelled Neut # (Auto) 4.6 Cancelled Lymph # (Auto) 0.4 L Cancelled Arthur # (Auto) 0.3 Cancelled Eos # (Auto) 0.0 Cancelled Baso # (Auto) 0.0 Cancelled WBC Differential . Cancelled Diff Scan Auto diff confirmed Cancelled Seg Neuts % (Manual) Cancelled Band Neuts % (Manual) Cancelled Lymphocytes % (Manual) Cancelled Atypical Lymphs % (Man) Cancelled Monocytes % (Manual) Cancelled Eosinophils % (Manual) Cancelled Basophils % (Manual) Cancelled Metamyelocytes % (Man) Cancelled Myelocytes % (Man) Cancelled Promyelocytes % (Man) Cancelled Blast Cells % (Manual) Cancelled Plasma Cell % (Manual) Cancelled Other Cells % Cancelled Abs Neuts (Manual) Cancelled Nucleated RBCs/100 WBC Cancelled Differential Comment . Cancelled Hypersegmented Neuts Cancelled Smudge Cells Cancelled Toxic Granulation Cancelled Toxic Vacuolation Cancelled Dohle Bodies Cancelled Platelet Estimate Cancelled Platelet Morphology Cancelled RBC Morphology Cancelled Dimorphic RBCs Cancelled Polychromasia Cancelled Basophilic Stippling Cancelled Spherocytes Cancelled Pappenheimer Bodies Cancelled Sickle Cells Cancelled Target Cells Cancelled Tear Drop Cells Cancelled Ovalocytes Cancelled Stomatocytes Cancelled Helmet Cells Cancelled [place] Bodies Cancelled [place] Cells Cancelled Acanthocytes (Spur) Cancelled Rouleaux Cancelled Keratocytes Cancelled Hematology Comments Cancelled Sodium Potassium Chloride Carbon Dioxide Anion Gap BUN Creatinine Estimated GFR POC Glucose Random Glucose Calcium Phosphorus Magnesium Total Bilirubin AST ALT Alkaline Phosphatase Total Protein Albumin Stl C.difficile DNA Amp Negative St C. diff Tox Epid 027 Negative IgA Endomysial Ab Titer Endomysial IgA Ab Tiss Transglutamin IgG Tiss Transglutamin IgA Celiac Disease Interp Hepatitis A IgM Ab Hep Bs Antigen Hep B Core IgM Ab Hep C IgG Ab 01/12/18 01/12/18 10:01 16:15 CBC w Diff WBC Corrected WBC RBC Hgb Hct MCV MCH MCHC RDW Plt Count MPV Prelim Diff (Auto) Immature Gran % (Auto) Neut % (Auto) Lymph % (Auto) Arthur % (Auto) Eos % (Auto) Baso % (Auto) Immature Gran # (Auto) Neut # (Auto) Lymph # (Auto) Arthur # (Auto) Eos # (Auto) Baso # (Auto) WBC Differential Diff Scan Seg Neuts % (Manual) Band Neuts % (Manual) Lymphocytes % (Manual) Atypical Lymphs % (Man) Monocytes % (Manual) Eosinophils % (Manual) Basophils % (Manual) Metamyelocytes % (Man) Myelocytes % (Man) Promyelocytes % (Man) Blast Cells % (Manual) Plasma Cell % (Manual) Other Cells % Abs Neuts (Manual) Nucleated RBCs/100 WBC Differential Comment Hypersegmented Neuts Smudge Cells Toxic Granulation Toxic Vacuolation Dohle Bodies Platelet Estimate Platelet Morphology RBC Morphology Dimorphic RBCs Polychromasia Basophilic Stippling Spherocytes Pappenheimer Bodies Sickle Cells Target Cells Tear Drop Cells Ovalocytes Stomatocytes Helmet Cells [place] Bodies [place]armad Cells Acanthocytes (Spur) Rouleaux Keratocytes Hematology Comments Sodium Potassium Chloride Carbon Dioxide Anion Gap BUN Creatinine Estimated GFR POC Glucose 185 H 291 H Random Glucose Calcium Phosphorus Magnesium Total Bilirubin AST ALT Alkaline Phosphatase Total Protein Albumin Stl C.difficile DNA Amp St C. diff Tox Epid 027 IgA Endomysial Ab Titer Endomysial IgA Ab Tiss Transglutamin IgG Tiss Transglutamin IgA Celiac Disease Interp Hepatitis A IgM Ab Hep Bs Antigen Hep B Core IgM Ab Hep C IgG Ab - Imaging Impressions Chest X-Ray 01/12/18 07:41 CONCLUSION: 1. Stable ETT and NGT. 2. Slightly improved airspace disease in the right mid to lower lung zones. 3. Persistent moderate loculated left-sided pleural effusion with associated left lung airspace disease and volume loss. <Kelly Aranda - Last Filed: 01/12/18 18:53> Assessment and Plan - Plan - Anemia- likely multifactorial, no bleeding reported hgb today 7.9 - Elevated ALP/thrombocytopenia - No previous hx of liver dz, used to be drinker in the remote past This could be secondary to cardiac etiology vs liver dz Abdomen Ultrasound 01/09/18 1. Limited examination due to obscuration by bowel gas. 2. Simple left renal cyst. 3. Moderate amount of ascites in the right upper quadrant. - Ascites- No previous hx of liver dz, used to be drinker in the remote past This could be secondary to cardiac etiology vs liver dz He is on Lasix - COPD - Respiratory failure- intubated now - HCAP - congestive heart failure secondary to pulmonary hypertension 01/12/2018 patient continues in the intensive care setting on ventilator management. Does occasionally open eyes to loud voice. No obvious melena stools hematemesis or bright red rectal bleeding noted labs reviewed with current hemoglobin 8, platelet count 73, bilirubin 0.8, AST 57, noted to be hep C positive which could explain this mild elevation and ALT 74, alkaline phosphatase mildly elevated to 245. Patient is being followed per gastroenterology for anemia and positive Hemoccult. Hep C positive Currently no paracentesis done to this point. According to family members no history of GI bleed or rectal bleeding Anemia, hemoglobin remains low which is probably chronic but no obvious bleeding noted at this time. Consider further workup for hep C Plan: Diet Hep C V RNA PCR ordered, log Continue to monitor labs and notify GI for any obvious bleeding, transfuse as needed PPI Bowel regimen as needed Consider EGD once patient is stable Supportive care Patient was seen per myself and Dr. Aranda, note was written on his behalf <Alona Dumont - Last Filed: 01/12/18 11:40> - Attending Attestation see, examined agree with above <Kelly Aranda - Last Filed: 01/12/18 18:53>
[2018-01-12] MEDS: Budesonide-Formoterol 160/4.5 MCG 6 GM Inhaler INH SCH ×2 (11:57→21:55)
--- NOTE | 2018-01-12 13:24 | P.PNID ---
Subjective Remarks: remains o n CPAP, 40% + secretions, some are thick no fever sputum clx are withrespm vaishnavi no leukocytosis New onset diarrhea 4 BMs today Antibiotics: meropenem Allergies/Adverse Reactions: Allergies No Known Allergies Allergy (Verified 12/19/17 21:39) Objective Vital Signs 01/11/18 14:00 01/11/18 15:27 01/11/18 15:31 Temperature Pulse Rate 97 H 97 H Respiratory Rate 27 H Blood Pressure Pulse Oximetry 100 01/11/18 16:00 01/11/18 16:31 01/11/18 17:00 Temperature 98.6 F Pulse Rate 102 H 97 H 100 H Respiratory Rate 24 23 26 H Blood Pressure 169/74 H 116/57 L 122/58 L Pulse Oximetry 88 L 91 L 90 L 01/11/18 17:40 01/11/18 18:00 01/11/18 18:05 Temperature Pulse Rate 101 H 100 H 100 H Respiratory Rate 27 H 25 H 26 H Blood Pressure 135/88 136/62 Pulse Oximetry 95 94 L 94 L 01/11/18 19:00 01/11/18 19:30 01/11/18 19:36 Temperature Pulse Rate 100 H 98 H Respiratory Rate 25 H 21 22 Blood Pressure 126/59 L Pulse Oximetry 96 95 01/11/18 20:00 01/11/18 21:00 01/11/18 22:00 Temperature 98.8 F Pulse Rate 102 H 99 H 86 Respiratory Rate 30 H 21 26 H Blood Pressure 132/64 124/58 L 128/61 Pulse Oximetry 95 94 L 94 L 01/11/18 22:58 01/11/18 23:00 01/12/18 00:00 Temperature 97.9 F Pulse Rate 92 H 92 H 86 Respiratory Rate 18 19 19 Blood Pressure 109/55 L 116/57 L Pulse Oximetry 97 96 01/12/18 01:00 01/12/18 02:00 01/12/18 03:00 Temperature Pulse Rate 93 H 86 93 H Respiratory Rate 21 18 22 Blood Pressure 128/62 119/59 L 142/63 H Pulse Oximetry 96 01/12/18 03:32 01/12/18 03:50 01/12/18 04:00 Temperature 98.2 F Pulse Rate 89 86 Respiratory Rate 18 18 18 Blood Pressure 114/55 L Pulse Oximetry 100 96 01/12/18 05:00 01/12/18 06:00 01/12/18 07:00 Temperature Pulse Rate 92 H 89 86 Respiratory Rate 18 19 18 Blood Pressure 118/58 L 120/59 L 118/58 L Pulse Oximetry 95 94 L 92 L 01/12/18 07:39 01/12/18 07:48 01/12/18 07:58 Temperature Pulse Rate 89 Respiratory Rate 21 21 27 H Blood Pressure Pulse Oximetry 93 L 94 L 01/12/18 08:00 01/12/18 09:00 01/12/18 10:00 Temperature 97.6 F Pulse Rate 92 H 88 88 Respiratory Rate 30 H 22 25 H Blood Pressure 124/57 L 129/60 126/62 Pulse Oximetry 93 L 91 L 91 L 01/12/18 11:00 01/12/18 11:53 01/12/18 11:54 Temperature Pulse Rate 86 91 H Respiratory Rate 24 26 H 27 H Blood Pressure 126/60 Pulse Oximetry 92 L 93 L Intake & Output 01/11/18 01/12/18 01/12/18 18:59 06:59 18:59 Intake Total 844 / 844 50 / 50 50 / 50 Output Total 225 / 225 500 / 500 Balance 619 / 619 -450 / -450 50 / 50 Weight 72.4 kg Intake: IV 400 / 400 50 / 50 50 / 50 Diprivan 1000 mg/100 ml Inj 1, 100 / 100 000 mg In 100 ml @ 5 MCG/KG/MIN 2.22 mls/hr IV.CONT TITRATE PRN Rx#:[id number] Merrem Inj 1,000 MG In NS Inj 200 / 200 100 ML @ 200 mls/hr IV.SIG Q8H NOAH Rx#:[id number] Zosyn 3.375 GM Premix 50 ML @ 100 / 100 50 / 50 50 / 50 100 mls/hr IV.SIG Q6H NOAH Rx#: [id number] Oral 0 / 0 Tube Feeding 444 / 444 0 / 0 Tube Irrigant 0 / 0 Water Bolus Amount 0 / 0 Other 0 / 0 Output: Urine 225 / 225 0 / 0 Urine Amount (Catheter) 500 / 500 Condom 500 / 500 Other: # Voids 2 # Incontinent Voids 3 2 Date of Last Bowel Movement 01/10/18 01/10/18 01/12/18 # Bowel Movements 2 4 # Incontinent Bowel Movements 1 4 10/12/18 09:11 Sputum - Endotracheal Gram Stain - Final 01/08/18 09:11 Sputum - Endotracheal Sputum Culture - Final Heavy growth normal respiratory vaishnavi Lab - Hematology Results 01/12/18 01/12/18 05:13 06:00 CBC w Diff Cancelled WBC 5.3 Cancelled Corrected WBC Cancelled RBC 2.62 L Cancelled Hgb 8.0 L Cancelled Hct 23.7 L Cancelled MCV 90.5 Cancelled MCH 30.4 Cancelled MCHC 33.6 Cancelled RDW 15.8 Cancelled Plt Count 73 L Cancelled MPV 8.8 Cancelled Prelim Diff (Auto) Slide review pending Cancelled Immature Gran % (Auto) Cancelled Neut % (Auto) 87.0 H Cancelled Lymph % (Auto) 7.5 L Cancelled Granite % (Auto) 4.8 Cancelled Eos % (Auto) 0.6 Cancelled Baso % (Auto) 0.1 Cancelled Immature Gran # (Auto) Cancelled Neut # (Auto) 4.6 Cancelled Lymph # (Auto) 0.4 L Cancelled Granite # (Auto) 0.3 Cancelled Eos # (Auto) 0.0 Cancelled Baso # (Auto) 0.0 Cancelled WBC Differential . Cancelled Diff Scan Auto diff confirmed Cancelled Seg Neuts % (Manual) Cancelled Band Neuts % (Manual) Cancelled Lymphocytes % (Manual) Cancelled Atypical Lymphs % (Man) Cancelled Monocytes % (Manual) Cancelled Eosinophils % (Manual) Cancelled Basophils % (Manual) Cancelled Metamyelocytes % (Man) Cancelled Myelocytes % (Man) Cancelled Promyelocytes % (Man) Cancelled Blast Cells % (Manual) Cancelled Plasma Cell % (Manual) Cancelled Other Cells % Cancelled Abs Neuts (Manual) Cancelled Nucleated RBCs/100 WBC Cancelled Differential Comment . Cancelled Hypersegmented Neuts Cancelled Smudge Cells Cancelled Toxic Granulation Cancelled Toxic Vacuolation Cancelled Dohle Bodies Cancelled Platelet Estimate Cancelled Platelet Morphology Cancelled RBC Morphology Cancelled Dimorphic RBCs Cancelled Polychromasia Cancelled Basophilic Stippling Cancelled Spherocytes Cancelled Pappenheimer Bodies Cancelled Sickle Cells Cancelled Target Cells Cancelled Tear Drop Cells Cancelled Ovalocytes Cancelled Stomatocytes Cancelled Helmet Cells Cancelled [place] Bodies Cancelled Sarmad Cells Cancelled Acanthocytes (Spur) Cancelled Rouleaux Cancelled Keratocytes Cancelled Hematology Comments Cancelled Lab - Chemistry Results 01/10/18 01/10/18 01/10/18 17:25 19:57 23:46 Sodium Potassium Chloride Carbon Dioxide Anion Gap BUN Creatinine Estimated GFR POC Glucose 302 H 330 H 327 H Random Glucose Calcium Phosphorus Magnesium Iron Ferritin Total Bilirubin AST ALT Alkaline Phosphatase Total Protein Albumin 01/11/18 01/11/18 01/11/18 06:32 06:32 12:04 Sodium 144 Potassium 4.0 Chloride 106 Carbon Dioxide 30.1 Anion Gap 8 BUN 52 H Creatinine 1.04 Estimated GFR 69 L POC Glucose 234 H Random Glucose 269 H Calcium 7.9 L Phosphorus 2.5 Magnesium 2.6 H Iron 22 L Ferritin 112 Total Bilirubin 0.4 AST 67 H ALT 78 Alkaline Phosphatase 272 H Total Protein 5.6 L Albumin 2.2 L 01/11/18 01/11/18 01/12/18 16:43 20:14 00:30 Sodium Potassium Chloride Carbon Dioxide Anion Gap BUN Creatinine Estimated GFR POC Glucose 226 H 164 H 197 H Random Glucose Calcium Phosphorus Magnesium Iron Ferritin Total Bilirubin AST ALT Alkaline Phosphatase Total Protein Albumin 01/12/18 01/12/18 01/12/18 05:12 05:12 10:01 Sodium 147 H Potassium 4.2 Chloride 108 H Carbon Dioxide 31.4 Anion Gap 8 BUN 49 H Creatinine 1.00 Estimated GFR 72 L POC Glucose 202 H 185 H Random Glucose 187 H Calcium 8.1 L Phosphorus 3.0 Magnesium 2.6 H Iron Ferritin Total Bilirubin 0.8 AST 57 H ALT 74 Alkaline Phosphatase 245 H Total Protein 5.2 L Albumin 2.1 L Imaging: ITS Impressions Abdomen X-Ray 01/01/18 00:00 CONCLUSION: 1. No bowel obstruction, ileus or perforation. 2. Degenerative changes and scoliosis of the lumbar spine. Chest CT 01/07/18 00:00 CONCLUSION: 1. Postsurgical features of suspected previous left-sided lobectomy with volume loss and mediastinal shift to the left. 2. Bulky left-sided pleural plaques with chronic appearing small to moderate sized loculated left pleural effusion. 3. Dense airspace consolidation in the superior segment of the right lower lobe with patchy interstitial and groundglass opacities throughout the right lower lobe. Differential considerations include pneumonia and aspiration in the appropriate clinical setting. 4. Trace right-sided pleural effusion with fluid extending into the major fissure. 5. Mild coronary artery calcifications. 6. Small amount of ascites in the visualized upper abdomen. Abdomen Ultrasound 01/09/18 00:00 CONCLUSION: 1. Limited examination due to obscuration by bowel gas. 2. Simple left renal cyst. 3. Moderate amount of ascites in the right upper quadrant. Chest X-Ray 01/12/18 07:41 CONCLUSION: 1. Stable ETT and NGT. 2. Slightly improved airspace disease in the right mid to lower lung zones. 3. Persistent moderate loculated left-sided pleural effusion with associated left lung airspace disease and volume loss. Physical Exam: GENERAL: awake, alert commu nicates. NAD SKIN: Warm and dry. NO rash EYES: Pupils equal and round. No scleral icterus. No injection or drainage. ENT: No nasal bleeding or discharge. Mucous membranes pink and moist. NECK: Trachea midline. CARDIOVASCULAR: Regular rate and rhythm. RESPIRATORY: . few scattered rhonchi to auscultation. Breath sounds diminished bilaterally. GASTROINTESTINAL: Abdomen soft, non-tender, nondistended. MUSCULOSKELETAL: Extremities without clubbing, cyanosis, or edema. No obvious deformities. NEUROLOGICAL: awake alert follows commands communicates approprietly PSYCHIATRIC: not agitate Assessment and Plan - Plan COPD exacerbation Multiple pumonary pathologies (COPD, asbestosis) RLL PNA Dense airspace consolidation in the superior segment of the right lower lobe on CT - sputum neg x2 Abx associated diarrhea, C.diff neg 01/12 PLAN: cont zosyn repeat CXR in am consider bronch if no clinical/rad improvement case dw: RN, family @ b/s bronch dw one of the daughters over the pheno; multiple questions answered re cultures and bronchoscopy dw Dr Sg Herman
--- NOTE | 2018-01-12 15:42 | P.PNPAL ---
Reason for Visit Reason for visit: a. To assist with evaluation and management of symptoms including: dyspnea, pain b. To assist medical decision maker(s) with: better understanding of current medical conditions; weighing benefits/burdens of medical treatment options; making medical treatment decisions. Subjective Subjective/Interval History: Patient seen today to follow up on comfort/goals. S/p medical extubation 12/26. Started on bipap.Was planned for transfer out of ICU to stepdown 01/07. S/p CT chest = 1. Postsurgical features of suspected previous left-sided lobectomy with volume loss and mediastinal shift to the left.2. Bulky left-sided pleural plaques with chronic appearing small to moderate sized loculated left pleural effusion.3. Dense airspace consolidation in the superior segment of the right lower lobe with patchy interstitial and groundglass opacities throughout the right lower lobe. Differential considerations include pneumonia and aspiration in the appropriate clinical setting.4. Trace right-sided pleural effusion with fluid extending into the major fissure. ; lungs are essentially unchanged no overall changes to tx plan per critical care . worsening ABG ;Intubated 01/08/18 (3rd intubation this admission) Remains on vent over weekend, tolerating CPAP. Initially on sedation though this has been weaned off. H&H decrease over weekend, down to 7.9/23.5 --> repeat 11/09 = 8.4/25.1 ---> yesterday 7.9/23.2---today 8.0/23.7. Multiple loose stools today, specimen sent, neg for c.difficile. Tolerating CPAP today 40% fio2. Remains on zosyn per ID, sputum cult = normal resp vaishnavi. CXR stable, rt airspace disease slightly improved. Pt seen in room , and daughter, nurse , present. completing linen change for loose stool. Review w family recent diagnostics, current tx, and underlying conditions are essentially stable. They have questions RE ID recommendations, review possible bronchoscopy which may or may not provide additional information , may not change his underlying clinical condition. and daughter express concern over edema to his scrotum and ask why it hurts. Does not appear edematous to my exam. asks why he is not always on Lasix for this, review use of diuretics with other conditions, not indicated for isolated edema. Pt is alert, follows some commands, interacts with family when they speak to him in [place]ic. Pt c/o thirsty, family explains cannot drink, they assisted w oral care. All questions answered to the best of my ability. They have my contact information. Appears Goals remain aggressive. d/w critical care, primary RN. Additional history per recent admission 11/13/17: Patient with known history CHF, diabetes, COPD, pulmonary fibrosis and asbestosis, presented to the ED after sustaining a fall in his home. He was lightheaded. Baseline 3-4 L nasal cannula requiring significant assistance with ADLs. Also with known history of LEFT thoracotomy and lobectomy/resection many years ago. Imaging finding of intertrochanteric fracture of proximal left hip. Also findings of osteopenia. Pulmonology evaluated patient and noted that he was cleared for surgery though may require BiPAP after. Suggested limited anesthesia secondary to moderately failure and/or pneumonia. Orthopedics consulted reviewed options family requested to proceed with operative management. During that admission noted during attending discussion with family daughter reports baseline mental status with some component of a dementia. Patient's primary language also reported to be a telemetry and though they requested no interpretation service be used during encounters because this would make him upset. During that hospital course patient did require ICU on BiPAP. Patient with some agitation. Anemia requiring transfusion postoperatively. Ongoing respiratory complication and concern for respiratory decompensation that could require mechanical ventilation and could result in difficulty weaning. Critical care notes discussion with family requested full CODE STATUS and continued aggressive management. Outpatient CT per Dr. Guerrier demonstrated pulmonary fibrosis and bronchiectasis. Patient did have a VQ scan during that admission with ventilation abnormally and perfume and of normal least left lower lobe pattern not typical of PE likely related to lobectomy. Avoiding CTA due to worsening renal function, family did not wish to assume risk. During that hospital course it is noted family requested transfer to [facility], critical care attempted to initiate that process. [facility] declined admission. Patient was also evaluated for LTAC, insurance apparently denied LTAC. Family appealed this and patient was later accepted by [facility]. He was discharged to [facility] 11/20/17 Objective Vital Signs: Vital Signs 01/11/18 16:00 01/11/18 16:31 01/11/18 17:00 Temperature 98.6 F Pulse Rate 102 H 97 H 100 H Respiratory Rate 24 23 26 H Blood Pressure 169/74 H 116/57 L 122/58 L Pulse Oximetry 88 L 91 L 90 L 01/11/18 17:40 01/11/18 18:00 01/11/18 18:05 Temperature Pulse Rate 101 H 100 H 100 H Respiratory Rate 27 H 25 H 26 H Blood Pressure 135/88 136/62 Pulse Oximetry 95 94 L 94 L 01/11/18 19:00 01/11/18 19:30 01/11/18 19:36 Temperature Pulse Rate 100 H 98 H Respiratory Rate 25 H 21 22 Blood Pressure 126/59 L Pulse Oximetry 96 95 01/11/18 20:00 01/11/18 21:00 01/11/18 22:00 Temperature 98.8 F Pulse Rate 102 H 99 H 86 Respiratory Rate 30 H 21 26 H Blood Pressure 132/64 124/58 L 128/61 Pulse Oximetry 95 94 L 94 L 01/11/18 22:58 01/11/18 23:00 01/12/18 00:00 Temperature 97.9 F Pulse Rate 92 H 92 H 86 Respiratory Rate 18 19 19 Blood Pressure 109/55 L 116/57 L Pulse Oximetry 97 96 01/12/18 01:00 01/12/18 02:00 01/12/18 03:00 Temperature Pulse Rate 93 H 86 93 H Respiratory Rate 21 18 22 Blood Pressure 128/62 119/59 L 142/63 H Pulse Oximetry 96 01/12/18 03:32 01/12/18 03:50 01/12/18 04:00 Temperature 98.2 F Pulse Rate 89 86 Respiratory Rate 18 18 18 Blood Pressure 114/55 L Pulse Oximetry 100 96 01/12/18 05:00 01/12/18 06:00 01/12/18 07:00 Temperature Pulse Rate 92 H 89 86 Respiratory Rate 18 19 18 Blood Pressure 118/58 L 120/59 L 118/58 L Pulse Oximetry 95 94 L 92 L 01/12/18 07:39 01/12/18 07:48 01/12/18 07:58 Temperature Pulse Rate 89 Respiratory Rate 21 21 27 H Blood Pressure Pulse Oximetry 93 L 94 L 01/12/18 08:00 01/12/18 09:00 01/12/18 10:00 Temperature 97.6 F Pulse Rate 92 H 88 88 Respiratory Rate 30 H 22 25 H Blood Pressure 124/57 L 129/60 126/62 Pulse Oximetry 93 L 91 L 91 L 01/12/18 11:00 01/12/18 11:53 01/12/18 11:54 Temperature Pulse Rate 86 91 H Respiratory Rate 24 26 H 27 H Blood Pressure 126/60 Pulse Oximetry 92 L 93 L 01/12/18 12:00 01/12/18 13:00 Temperature 97.8 F Pulse Rate 92 H 91 H Respiratory Rate 33 H 25 H Blood Pressure 159/68 H 137/63 Pulse Oximetry 92 L 91 L Intake & Output 01/11/18 01/12/18 01/12/18 18:59 06:59 18:59 Intake Total 844 / 844 50 / 50 50 / 50 Output Total 225 / 225 500 / 500 Balance 619 / 619 -450 / -450 50 / 50 Weight 72.4 kg Intake: IV 400 / 400 50 / 50 50 / 50 Diprivan 1000 mg/100 ml Inj 1, 100 / 100 000 mg In 100 ml @ 5 MCG/KG/MIN 2.22 mls/hr IV.CONT TITRATE PRN Rx#:[id number] Merrem Inj 1,000 MG In NS Inj 200 / 200 100 ML @ 200 mls/hr IV.SIG Q8H NOAH Rx#:[id number] Zosyn 3.375 GM Premix 50 ML @ 100 / 100 50 / 50 50 / 50 100 mls/hr IV.SIG Q6H NOAH Rx#: [id number] Oral 0 / 0 Tube Feeding 444 / 444 0 / 0 Tube Irrigant 0 / 0 Water Bolus Amount 0 / 0 Other 0 / 0 Output: Urine 225 / 225 0 / 0 Urine Amount (Catheter) 500 / 500 Condom 500 / 500 Other: # Voids 2 # Incontinent Voids 3 2 Date of Last Bowel Movement 01/10/18 01/10/18 01/12/18 # Bowel Movements 2 4 # Incontinent Bowel Movements 1 4 Physical Exam: CONSTITUTIONAL/GENERAL: This is a thin elderly male, alert on [facility] vent TUBES/LINES/DRAINS: peripheral IVs to bilateral upper extremities. ETT to [facility] vent SKIN: No jaundice, rashes, or lesions. Fading ecchymosis along left hip, upper leg. No wounds seen anteriorly-reports sacral/buttock wound . Skin warm/dry. EYES: Pupils 2.5mm/ reactive to light. No scleral icterus. No injection or drainage. Fundi not examined. ENT: Nose without bleeding or purulent drainage. unable to visualize 2/2 to ETT CARDIOVASCULAR: Regular rate and rhythm without murmur, rate 90s. No JVD. Peripheral pulses symmetric. RESPIRATORY/CHEST: Symmetric, unlabored respirations on vent, CPAP. mildly tachypneic 20s. Left side w/ decreased air movement. Right w decreased air movement, clear. GASTROINTESTINAL: Abdomen soft, no tenderness. No palpable masses. Bowel sounds present. GENITOURINARY: Without palpable bladder distension. external catheter = clear yellow urine visible MUSCULOSKELETAL: Extremities without clubbing, cyanosis. No joint tenderness or effusion noted. No mottling or clubbing. NEUROLOGICAL:alert, attempts to mouth words/speak to family. moves all 4 extremities. follows commands. PSYCHIATRIC: calm, no apparent anxiety. Diagnostic Tests Laboratory: Laboratory Results - last 72 hr 01/09/18 01/09/18 01/10/18 17:47 23:52 04:28 CBC w Diff WBC Corrected WBC RBC Hgb Hct MCV MCH MCHC RDW Plt Count MPV Prelim Diff (Auto) Immature Gran % (Auto) Neut % (Auto) Lymph % (Auto) [place] % (Auto) Eos % (Auto) Baso % (Auto) Immature Gran # (Auto) Neut # (Auto) Lymph # (Auto) [place] # (Auto) Eos # (Auto) Baso # (Auto) WBC Differential Diff Scan Seg Neuts % (Manual) Band Neuts % (Manual) Lymphocytes % (Manual) Atypical Lymphs % (Man) Monocytes % (Manual) Eosinophils % (Manual) Basophils % (Manual) Metamyelocytes % (Man) Myelocytes % (Man) Promyelocytes % (Man) Blast Cells % (Manual) Plasma Cell % (Manual) Other Cells % Abs Neuts (Manual) Nucleated RBCs/100 WBC Differential Comment Hypersegmented Neuts Smudge Cells Toxic Granulation Toxic Vacuolation Dohle Bodies Platelet Estimate Platelet Morphology RBC Morphology Dimorphic RBCs Polychromasia Basophilic Stippling Spherocytes Pappenheimer Bodies Sickle Cells Target Cells Tear Drop Cells Ovalocytes Stomatocytes Helmet Cells Collins-Pana Bodies Decatur Cells Acanthocytes (Spur) Rouleaux Keratocytes Hematology Comments Sodium 143 Potassium 3.6 Chloride 103 Carbon Dioxide 33.9 H Anion Gap 6 BUN 50 H Creatinine 0.97 Estimated GFR 74 L POC Glucose 200 H 218 H Random Glucose 211 H Calcium 8.2 L Phosphorus 2.1 L Magnesium 2.6 H Iron Ferritin Total Bilirubin 0.4 AST 44 H ALT 52 Alkaline Phosphatase 231 H Total Protein 5.3 L Albumin 2.1 L Stl C.difficile DNA Amp St C. diff Tox Epid 027 Vancomycin Trough IgA Endomysial Ab Titer Endomysial IgA Ab Tiss Transglutamin IgG Tiss Transglutamin IgA Celiac Disease Interp Hepatitis A IgM Ab Hep Bs Antigen Hep B Core IgM Ab Hep C IgG Ab 01/10/18 01/10/18 01/10/18 04:28 11:56 17:25 CBC w Diff WBC 5.0 Corrected WBC RBC 2.58 L Hgb 7.9 L Hct 23.2 L MCV 90.0 MCH 30.6 MCHC 34.0 RDW 15.6 Plt Count 67 L MPV 9.3 Prelim Diff (Auto) Slide review pending Immature Gran % (Auto) Neut % (Auto) 87.2 H Lymph % (Auto) 7.2 L [place] % (Auto) 5.5 Eos % (Auto) 0.0 Baso % (Auto) 0.1 Immature Gran # (Auto) Neut # (Auto) 4.4 Lymph # (Auto) 0.4 L [place] # (Auto) 0.3 Eos # (Auto) 0.0 Baso # (Auto) 0.0 WBC Differential . Diff Scan Auto diff confirmed Seg Neuts % (Manual) Band Neuts % (Manual) Lymphocytes % (Manual) Atypical Lymphs % (Man) Monocytes % (Manual) Eosinophils % (Manual) Basophils % (Manual) Metamyelocytes % (Man) Myelocytes % (Man) Promyelocytes % (Man) Blast Cells % (Manual) Plasma Cell % (Manual) Other Cells % Abs Neuts (Manual) Nucleated RBCs/100 WBC Differential Comment . Hypersegmented Neuts Smudge Cells Toxic Granulation Toxic Vacuolation Dohle Bodies Platelet Estimate Platelet Morphology RBC Morphology Dimorphic RBCs Polychromasia Basophilic Stippling Spherocytes Pappenheimer Bodies Sickle Cells Target Cells Tear Drop Cells Ovalocytes Stomatocytes Helmet Cells Collins-Pana Bodies Sarmad Cells Acanthocytes (Spur) Rouleaux Keratocytes Hematology Comments Sodium Potassium Chloride Carbon Dioxide Anion Gap BUN Creatinine Estimated GFR POC Glucose 306 H 302 H Random Glucose Calcium Phosphorus Magnesium Iron Ferritin Total Bilirubin AST ALT Alkaline Phosphatase Total Protein Albumin Stl C.difficile DNA Amp St C. diff Tox Epid 027 Vancomycin Trough IgA Endomysial Ab Titer Endomysial IgA Ab Tiss Transglutamin IgG Tiss Transglutamin IgA Celiac Disease Interp Hepatitis A IgM Ab Hep Bs Antigen Hep B Core IgM Ab Hep C IgG Ab 01/10/18 01/10/18 01/10/18 19:57 20:23 23:46 CBC w Diff WBC Corrected WBC RBC Hgb Hct MCV MCH MCHC RDW Plt Count MPV Prelim Diff (Auto) Immature Gran % (Auto) Neut % (Auto) Lymph % (Auto) [place] % (Auto) Eos % (Auto) Baso % (Auto) Immature Gran # (Auto) Neut # (Auto) Lymph # (Auto) [place] # (Auto) Eos # (Auto) Baso # (Auto) WBC Differential Diff Scan Seg Neuts % (Manual) Band Neuts % (Manual) Lymphocytes % (Manual) Atypical Lymphs % (Man) Monocytes % (Manual) Eosinophils % (Manual) Basophils % (Manual) Metamyelocytes % (Man) Myelocytes % (Man) Promyelocytes % (Man) Blast Cells % (Manual) Plasma Cell % (Manual) Other Cells % Abs Neuts (Manual) Nucleated RBCs/100 WBC Differential Comment Hypersegmented Neuts Smudge Cells Toxic Granulation Toxic Vacuolation Dohle Bodies Platelet Estimate Platelet Morphology RBC Morphology Dimorphic RBCs Polychromasia Basophilic Stippling Spherocytes Pappenheimer Bodies Sickle Cells Target Cells Tear Drop Cells Ovalocytes Stomatocytes Helmet Cells Collins-Pana Bodies Sarmad Cells Acanthocytes (Spur) Rouleaux Keratocytes Hematology Comments Sodium Potassium Chloride Carbon Dioxide Anion Gap BUN Creatinine Estimated GFR POC Glucose 330 H 327 H Random Glucose Calcium Phosphorus Magnesium Iron Ferritin Total Bilirubin AST ALT Alkaline Phosphatase Total Protein Albumin Stl C.difficile DNA Amp St C. diff Tox Epid 027 Vancomycin Trough 29.1 H IgA Endomysial Ab Titer Endomysial IgA Ab Tiss Transglutamin IgG Tiss Transglutamin IgA Celiac Disease Interp Hepatitis A IgM Ab Hep Bs Antigen Hep B Core IgM Ab Hep C IgG Ab 01/11/18 01/11/18 01/11/18 06:32 06:32 12:04 CBC w Diff WBC Corrected WBC RBC Hgb Hct MCV MCH MCHC RDW Plt Count MPV Prelim Diff (Auto) Immature Gran % (Auto) Neut % (Auto) Lymph % (Auto) [place] % (Auto) Eos % (Auto) Baso % (Auto) Immature Gran # (Auto) Neut # (Auto) Lymph # (Auto) [place] # (Auto) Eos # (Auto) Baso # (Auto) WBC Differential Diff Scan Seg Neuts % (Manual) Band Neuts % (Manual) Lymphocytes % (Manual) Atypical Lymphs % (Man) Monocytes % (Manual) Eosinophils % (Manual) Basophils % (Manual) Metamyelocytes % (Man) Myelocytes % (Man) Promyelocytes % (Man) Blast Cells % (Manual) Plasma Cell % (Manual) Other Cells % Abs Neuts (Manual) Nucleated RBCs/100 WBC Differential Comment Hypersegmented Neuts Smudge Cells Toxic Granulation Toxic Vacuolation Dohle Bodies Platelet Estimate Platelet Morphology RBC Morphology Dimorphic RBCs Polychromasia Basophilic Stippling Spherocytes Pappenheimer Bodies Sickle Cells Target Cells Tear Drop Cells Ovalocytes Stomatocytes Helmet Cells Collins-Pana Bodies Decatur Cells Acanthocytes (Spur) Rouleaux Keratocytes Hematology Comments Sodium 144 Potassium 4.0 Chloride 106 Carbon Dioxide 30.1 Anion Gap 8 BUN 52 H Creatinine 1.04 Estimated GFR 69 L POC Glucose 234 H Random Glucose 269 H Calcium 7.9 L Phosphorus 2.5 Magnesium 2.6 H Iron 22 L Ferritin 112 Total Bilirubin 0.4 AST 67 H ALT 78 Alkaline Phosphatase 272 H Total Protein 5.6 L Albumin 2.2 L Stl C.difficile DNA Amp St C. diff Tox Epid 027 Vancomycin Trough IgA Endomysial Ab Titer Endomysial IgA Ab Tiss Transglutamin IgG Tiss Transglutamin IgA Celiac Disease Interp Hepatitis A IgM Ab Hep Bs Antigen Hep B Core IgM Ab Hep C IgG Ab 01/11/18 01/11/18 01/12/18 16:43 20:14 00:30 CBC w Diff WBC Corrected WBC RBC Hgb Hct MCV MCH MCHC RDW Plt Count MPV Prelim Diff (Auto) Immature Gran % (Auto) Neut % (Auto) Lymph % (Auto) [place] % (Auto) Eos % (Auto) Baso % (Auto) Immature Gran # (Auto) Neut # (Auto) Lymph # (Auto) [place] # (Auto) Eos # (Auto) Baso # (Auto) WBC Differential Diff Scan Seg Neuts % (Manual) Band Neuts % (Manual) Lymphocytes % (Manual) Atypical Lymphs % (Man) Monocytes % (Manual) Eosinophils % (Manual) Basophils % (Manual) Metamyelocytes % (Man) Myelocytes % (Man) Promyelocytes % (Man) Blast Cells % (Manual) Plasma Cell % (Manual) Other Cells % Abs Neuts (Manual) Nucleated RBCs/100 WBC Differential Comment Hypersegmented Neuts Smudge Cells Toxic Granulation Toxic Vacuolation Dohle Bodies Platelet Estimate Platelet Morphology RBC Morphology Dimorphic RBCs Polychromasia Basophilic Stippling Spherocytes Pappenheimer Bodies Sickle Cells Target Cells Tear Drop Cells Ovalocytes Stomatocytes Helmet Cells Collins-Pana Bodies Decatur Cells Acanthocytes (Spur) Rouleaux Keratocytes Hematology Comments Sodium Potassium Chloride Carbon Dioxide Anion Gap BUN Creatinine Estimated GFR POC Glucose 226 H 164 H 197 H Random Glucose Calcium Phosphorus Magnesium Iron Ferritin Total Bilirubin AST ALT Alkaline Phosphatase Total Protein Albumin Stl C.difficile DNA Amp St C. diff Tox Epid 027 Vancomycin Trough IgA Endomysial Ab Titer Endomysial IgA Ab Tiss Transglutamin IgG Tiss Transglutamin IgA Celiac Disease Interp Hepatitis A IgM Ab Hep Bs Antigen Hep B Core IgM Ab Hep C IgG Ab 01/12/18 01/12/18 01/12/18 05:12 05:12 05:12 CBC w Diff WBC Corrected WBC RBC Hgb Hct MCV MCH MCHC RDW Plt Count MPV Prelim Diff (Auto) Immature Gran % (Auto) Neut % (Auto) Lymph % (Auto) [place] % (Auto) Eos % (Auto) Baso % (Auto) Immature Gran # (Auto) Neut # (Auto) Lymph # (Auto) [place] # (Auto) Eos # (Auto) Baso # (Auto) WBC Differential Diff Scan Seg Neuts % (Manual) Band Neuts % (Manual) Lymphocytes % (Manual) Atypical Lymphs % (Man) Monocytes % (Manual) Eosinophils % (Manual) Basophils % (Manual) Metamyelocytes % (Man) Myelocytes % (Man) Promyelocytes % (Man) Blast Cells % (Manual) Plasma Cell % (Manual) Other Cells % Abs Neuts (Manual) Nucleated RBCs/100 WBC Differential Comment Hypersegmented Neuts Smudge Cells Toxic Granulation Toxic Vacuolation Dohle Bodies Platelet Estimate Platelet Morphology RBC Morphology Dimorphic RBCs Polychromasia Basophilic Stippling Spherocytes Pappenheimer Bodies Sickle Cells Target Cells Tear Drop Cells Ovalocytes Stomatocytes Helmet Cells Collins-Pana Bodies Sarmad Cells Acanthocytes (Spur) Rouleaux Keratocytes Hematology Comments Sodium 147 H Potassium 4.2 Chloride 108 H Carbon Dioxide 31.4 Anion Gap 8 BUN 49 H Creatinine 1.00 Estimated GFR 72 L POC Glucose Random Glucose 187 H Calcium 8.1 L Phosphorus 3.0 Magnesium 2.6 H Iron Ferritin Total Bilirubin 0.8 AST 57 H ALT 74 Alkaline Phosphatase 245 H Total Protein 5.2 L Albumin 2.1 L Stl C.difficile DNA Amp St C. diff Tox Epid 027 Vancomycin Trough IgA Cancelled Endomysial Ab Titer Cancelled Endomysial IgA Ab Cancelled Tiss Transglutamin IgG Cancelled Tiss Transglutamin IgA Cancelled Celiac Disease Interp Cancelled Hepatitis A IgM Ab Nonreactive Hep Bs Antigen Nonreactive Hep B Core IgM Ab Nonreactive Hep C IgG Ab Reactive H 01/12/18 01/12/18 01/12/18 05:12 05:13 06:00 CBC w Diff Cancelled WBC 5.3 Cancelled Corrected WBC Cancelled RBC 2.62 L Cancelled Hgb 8.0 L Cancelled Hct 23.7 L Cancelled MCV 90.5 Cancelled MCH 30.4 Cancelled MCHC 33.6 Cancelled RDW 15.8 Cancelled Plt Count 73 L Cancelled MPV 8.8 Cancelled Prelim Diff (Auto) Slide review pending Cancelled Immature Gran % (Auto) Cancelled Neut % (Auto) 87.0 H Cancelled Lymph % (Auto) 7.5 L Cancelled [place] % (Auto) 4.8 Cancelled Eos % (Auto) 0.6 Cancelled Baso % (Auto) 0.1 Cancelled Immature Gran # (Auto) Cancelled Neut # (Auto) 4.6 Cancelled Lymph # (Auto) 0.4 L Cancelled [place] # (Auto) 0.3 Cancelled Eos # (Auto) 0.0 Cancelled Baso # (Auto) 0.0 Cancelled WBC Differential . Cancelled Diff Scan Auto diff confirmed Cancelled Seg Neuts % (Manual) Cancelled Band Neuts % (Manual) Cancelled Lymphocytes % (Manual) Cancelled Atypical Lymphs % (Man) Cancelled Monocytes % (Manual) Cancelled Eosinophils % (Manual) Cancelled Basophils % (Manual) Cancelled Metamyelocytes % (Man) Cancelled Myelocytes % (Man) Cancelled Promyelocytes % (Man) Cancelled Blast Cells % (Manual) Cancelled Plasma Cell % (Manual) Cancelled Other Cells % Cancelled Abs Neuts (Manual) Cancelled Nucleated RBCs/100 WBC Cancelled Differential Comment . Cancelled Hypersegmented Neuts Cancelled Smudge Cells Cancelled Toxic Granulation Cancelled Toxic Vacuolation Cancelled Dohle Bodies Cancelled Platelet Estimate Cancelled Platelet Morphology Cancelled RBC Morphology Cancelled Dimorphic RBCs Cancelled Polychromasia Cancelled Basophilic Stippling Cancelled Spherocytes Cancelled Pappenheimer Bodies Cancelled Sickle Cells Cancelled Target Cells Cancelled Tear Drop Cells Cancelled Ovalocytes Cancelled Stomatocytes Cancelled Helmet Cells Cancelled Collins-Pana Bodies Cancelled Decatur Cells Cancelled Acanthocytes (Spur) Cancelled Rouleaux Cancelled Keratocytes Cancelled Hematology Comments Cancelled Sodium Potassium Chloride Carbon Dioxide Anion Gap BUN Creatinine Estimated GFR POC Glucose 202 H Random Glucose Calcium Phosphorus Magnesium Iron Ferritin Total Bilirubin AST ALT Alkaline Phosphatase Total Protein Albumin Stl C.difficile DNA Amp St C. diff Tox Epid 027 Vancomycin Trough IgA Endomysial Ab Titer Endomysial IgA Ab Tiss Transglutamin IgG Tiss Transglutamin IgA Celiac Disease Interp Hepatitis A IgM Ab Hep Bs Antigen Hep B Core IgM Ab Hep C IgG Ab 01/12/18 01/12/18 09:45 10:01 CBC w Diff WBC Corrected WBC RBC Hgb Hct MCV MCH MCHC RDW Plt Count MPV Prelim Diff (Auto) Immature Gran % (Auto) Neut % (Auto) Lymph % (Auto) [place] % (Auto) Eos % (Auto) Baso % (Auto) Immature Gran # (Auto) Neut # (Auto) Lymph # (Auto) [place] # (Auto) Eos # (Auto) Baso # (Auto) WBC Differential Diff Scan Seg Neuts % (Manual) Band Neuts % (Manual) Lymphocytes % (Manual) Atypical Lymphs % (Man) Monocytes % (Manual) Eosinophils % (Manual) Basophils % (Manual) Metamyelocytes % (Man) Myelocytes % (Man) Promyelocytes % (Man) Blast Cells % (Manual) Plasma Cell % (Manual) Other Cells % Abs Neuts (Manual) Nucleated RBCs/100 WBC Differential Comment Hypersegmented Neuts Smudge Cells Toxic Granulation Toxic Vacuolation Dohle Bodies Platelet Estimate Platelet Morphology RBC Morphology Dimorphic RBCs Polychromasia Basophilic Stippling Spherocytes Pappenheimer Bodies Sickle Cells Target Cells Tear Drop Cells Ovalocytes Stomatocytes Helmet Cells Collins-Pana Bodies Sarmad Cells Acanthocytes (Spur) Rouleaux Keratocytes Hematology Comments Sodium Potassium Chloride Carbon Dioxide Anion Gap BUN Creatinine Estimated GFR POC Glucose 185 H Random Glucose Calcium Phosphorus Magnesium Iron Ferritin Total Bilirubin AST ALT Alkaline Phosphatase Total Protein Albumin Stl C.difficile DNA Amp Negative St C. diff Tox Epid 027 Negative Vancomycin Trough IgA Endomysial Ab Titer Endomysial IgA Ab Tiss Transglutamin IgG Tiss Transglutamin IgA Celiac Disease Interp Hepatitis A IgM Ab Hep Bs Antigen Hep B Core IgM Ab Hep C IgG Ab Result Diagrams: 01/12/18 05:13 01/12/18 05:12 Microbiology: Microbiology 01/08/18 09:11 Gram Stain - Final Sputum - Endotracheal Sputum Culture - Final Heavy growth normal respiratory vaishnavi Imaging: Impressions Chest X-Ray 01/12/18 07:41 CONCLUSION: 1. Stable ETT and NGT. 2. Slightly improved airspace disease in the right mid to lower lung zones. 3. Persistent moderate loculated left-sided pleural effusion with associated left lung airspace disease and volume loss. Procedures: 01/08 intubation, 3rd Assessment and Plan - Disease Oriented Problem List (1) COPD (chronic obstructive pulmonary disease) (2) CHF (congestive heart failure) (3) Respiratory distress (4) Sepsis (5) HCAP (healthcare-associated pneumonia) (6) NAHED (acute kidney injury) (7) Pulmonary hypertension (8) S/P lobectomy of lung Pertinent Non-Medical Issues: Psychosocial: Retired. Lived in [place] most of his life-- originally from [place], then moved to [place], then to [place]. 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 Supported by , 4 daughters, other extended family. Spiritual:[employer], sister providing spiritual care Legal:Patient unable to participate due to clinical condition. There is some question of underlying cognitive deficits. His would be appropriate legal decision maker. She is making decisions supported by the rest of the family, daughters, sister are very involved in his care in decision-making Ethical issues impacting care:no ethical issues identified Important Contacts: Sunshine Davenport [phone] Prognosis: This 82-year-old patient is currently hospitalized due to severe sepsis, with respiratory failure. He has multiple chronic comorbidities. 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 He also has underlying COPD, pulmonary fibrosis, prior lobectomy. Overall poor prognosis for survival from current acute issues. Code Status: Full Code Plan: * Legal decision maker: Patient unable to participate due to clinical condition. There is some question of underlying cognitive deficits. His would be appropriate legal decision maker. She is making decisions supported by the rest of the family, daughters, sister are very involved in his care in decision-making * Goals: aggressive goals; pt/family want to continue ongoing aggressive treatments to improve his condition, including full code. is undecided RE proceeding with trach/PEG * CODE STATUS: Full code * SYMPTOMS: --Dyspnea-admitted for shortness of breath. Desaturation reported at home. Urgently intubated upon arrival to ICU. CXR indicative right lower lung probable pneumonia. initially On broad-spectrum antibiotics. Cultures negative. Tolerated medical extubation 12/25. abx d/cd tolerating nasal cannula , to medical unit. HALICAT 12/30,for desaturation, now back in ICU, has remained stable in ICU, again with de-sat, required bipap early am 01/07, intubated . s/p CT chest. Remains on abx. Lungs unchanged. Due to recent pneumonia, intubation, debilitated status remains at risk for respiratory complications. will likely require trach for ongoing, possibly intermittent vent support. --Pain-family endorses day to day at home patient did not endorse any pain. He is status post hip repair last month. Has been essentially bedbound since that time, potential sources would include recent hip surgery, as well as prolonged bedbound status and recent invasive procedures. Family endorses that pt is having some discomfort to his sacral region though they do not want him to have morphine because they feel that is too strong for him. Wound care following for wounds to buttocks. Ordered for airbed. --malnutrition- multiple intubation/extubation during this hospital course. Tolerating some PO when extubated. Now tolerating TF. Will likely require halfway tube feed supplementation to meet requirements due to fragile respiratory status, and limited PO intake. + diarrhea today, neg for c dif * Palliative care will continue to follow during hospital course as condition evolves, to assist patient/decision-maker with understanding of medical conditions, weighing benefits/burdens of treatment options, for clarification of goals of treatment. Additionally will assist with any symptoms of palliative concern Attestation Attestation: To help prompt me to consider important information that might be impacting today's encounter and assessment, information from prior notes written by myself or my colleagues may have been "brought forward" into today's note. My signature on this note, however, is an attestation that I personally performed the exam, history, and/or decision-making noted today, and, unless otherwise indicated, the interactions with patient, family, and staff as well as the review of records all occurred today. I also attest that the listed assessment and stated plan reflect my best clinical judgment today based on the combination of historical information, prior notes, and today's exam/ interactions. When time spent is documented, it refers only to time spent today by the signer, or if indicated, combined time spent today by collaborating physician/nurse practitioner.
[2018-01-13] MEDS: Insulin NovoLOG Aspart Correctional Sugar Inj SQ SCH ×7 (00:10→23:45)
[2018-01-13] MEDS: Piperacil/Tazo 3.375 GM Premix 50 ML IV.SIG SCH ×5 (00:11→23:46)
[2018-01-13] MEDS: Oral Hygiene Kit OROPHARYNG SCH ×5 (00:11→23:46)
[2018-01-13 08:09] LABS: Calcium 7.8 mg/dL (8.5-10.1); Carbon Dioxide 33.6 meq/L (21.0-32.0); Potassium 4.2 meq/L (3.5-5.1)
[2018-01-13] MEDS: Carboxymethylcellulose 0.5% Opth Drops 15 ML Bottle EACH EYE SCH ×2 (08:55→22:38)
[2018-01-13] MEDS: predniSONE 10 MG Tablet PO SCH ×2 (08:56→22:37)
[2018-01-13] MEDS: Insulin Detemir Inj 1,000 UNIT/10 ML Vial SQ SCH ×2 (08:56→22:38)
[2018-01-13] MEDS: Budesonide-Formoterol 160/4.5 MCG 6 GM Inhaler INH SCH ×2 (08:56→22:38)
[2018-01-13] MEDS: Chlorhexidine 0.12% Oral Kit 15 ML UDC OROPHARYNG SCH ×2 (08:57→22:37)
--- NOTE | 2018-01-13 11:41 | P.PN ---
Subjective Interval history: Awake and assists the vent. On PSV 20 and FIO2 35 %. Chest Xray shows bi basal infiltrates. Unable to wean off the vent. Physical Exam Vital signs: Vital Signs 01/12/18 11:53 01/12/18 11:54 01/12/18 12:00 Temperature 97.8 F Pulse Rate 91 H 92 H Respiratory Rate 26 H 27 H 33 H Blood Pressure 159/68 H Pulse Oximetry 93 L 92 L 01/12/18 13:00 01/12/18 14:00 01/12/18 15:00 Temperature Pulse Rate 91 H 98 H 100 H Respiratory Rate 25 H 30 H 35 H Blood Pressure 137/63 116/79 151/67 H Pulse Oximetry 91 L 88 L 86 L 01/12/18 15:48 01/12/18 16:00 01/12/18 17:00 Temperature 98.8 F Pulse Rate 94 H 91 H 97 H Respiratory Rate 17 17 25 H Blood Pressure 112/56 L 111/56 L Pulse Oximetry 93 L 90 L 88 L 01/12/18 18:00 01/12/18 19:00 01/12/18 19:18 Temperature Pulse Rate 94 H 85 Respiratory Rate 22 17 17 Blood Pressure 114/58 L 107/53 L Pulse Oximetry 95 92 L 94 L 01/12/18 19:22 01/12/18 20:00 01/12/18 21:00 Temperature 99.5 F Pulse Rate 85 86 84 Respiratory Rate 16 16 17 Blood Pressure 108/54 L 112/56 L Pulse Oximetry 94 L 94 L 01/12/18 22:00 01/12/18 22:19 01/12/18 23:00 Temperature Pulse Rate 84 90 Respiratory Rate 20 19 24 Blood Pressure 113/57 L 129/62 Pulse Oximetry 92 L 93 L 94 L 01/12/18 23:29 01/13/18 00:00 01/13/18 01:00 Temperature 98.8 F Pulse Rate 81 81 81 Respiratory Rate 16 16 17 Blood Pressure 122/59 L 110/53 L Pulse Oximetry 94 L 92 L 01/13/18 01:25 01/13/18 02:00 01/13/18 03:00 Temperature Pulse Rate 85 81 Respiratory Rate 19 19 17 Blood Pressure 116/57 L 115/56 L Pulse Oximetry 93 L 92 L 92 L 01/13/18 04:00 01/13/18 04:02 01/13/18 04:04 Temperature 99.2 F Pulse Rate 86 83 Respiratory Rate 24 20 17 Blood Pressure 118/57 L Pulse Oximetry 92 L 92 L 01/13/18 05:00 01/13/18 06:00 01/13/18 07:00 Temperature Pulse Rate 86 78 86 Respiratory Rate 26 H 17 22 Blood Pressure 121/59 L 116/58 L 119/57 L Pulse Oximetry 95 91 L 91 L 01/13/18 08:00 01/13/18 09:00 01/13/18 10:00 Temperature 98.7 F Pulse Rate 80 86 91 H Respiratory Rate 17 26 H 34 H Blood Pressure 117/56 L 113/56 L 133/60 Pulse Oximetry 92 L 95 88 L Intake & Output 01/12/18 01/13/18 01/13/18 18:59 06:59 18:59 Intake Total 1338 / 1338 636 / 636 50 / 50 Output Total 1200 / 1200 600 / 600 Balance 138 / 138 36 / 36 50 / 50 Weight 69.3 kg Intake: IV 200 / 200 100 / 100 50 / 50 Flexbumin 25% Inj 100 ML @ 60 100 / 100 mls/hr IV.SIG ONCE ONE Rx#: [id number] Zosyn 3.375 GM Premix 50 ML @ 100 / 100 100 / 100 50 / 50 100 mls/hr IV.SIG Q6H NOAH Rx#: [id number] Tube Feeding 958 / 958 506 / 506 Water Bolus Amount 180 / 180 30 / 30 Output: Urine 1200 / 1200 600 / 600 Other: Date of Last Bowel Movement 01/12/18 01/13/18 01/13/18 # Incontinent Bowel Movements 7 2 Narrative: General:Elderly W/m , Awake and in no distress. HEENT:PERRL. Throat secretions .ET tube is in. Cardiovascular:Regular Rhythm, S1 S2 ,no murmur Respiratory : Occ Basal crackles and bilateral wheezes and decreased breath sounds bilateral. Abdomen: soft, nontender, positive bowel sounds. Extremities: 1 + pitting edema bilateral lower extremities. Neuro:Alert and moves extremities. No Focal deficits. - Urinary Catheter Management Straight Cath placed during this visit: yes, but has since been removed by the nurse Reason for continuing: Not indwelling catheter Insertion date: 12/23/17 Insertion time: 01:00 Removal date: 12/22/17 Removal time: 01:00 Condom Cath placed during this visit: no Results - Labs CBC & Chem 7: 01/12/18 05:13 01/13/18 07:16 Laboratory Results - last 24 hr 01/12/18 01/12/18 01/12/18 09:45 16:15 19:54 Sodium Potassium Chloride Carbon Dioxide Anion Gap BUN Creatinine Estimated GFR POC Glucose 291 H 206 H Random Glucose Calcium Stl C.difficile DNA Amp Negative St C. diff Tox Epid 027 Negative 01/13/18 01/13/18 01/13/18 00:07 07:15 07:16 Sodium 149 H Potassium 4.2 Chloride 110 H Carbon Dioxide 33.6 H Anion Gap 5 BUN 53 H Creatinine 1.05 Estimated GFR 68 L POC Glucose 143 H 203 H Random Glucose 174 H Calcium 7.8 L Stl C.difficile DNA Amp St C. diff Tox Epid 027 Assessment and Plan - Assessment (1) Respiratory failure requiring intubation Code(s): J96.90 - Respiratory failure, unspecified, unspecified whether with hypoxia or hypercapnia Status: Acute (2) Pneumonia Code(s): J18.9 - Pneumonia, unspecified organism Status: Acute (3) CHF (congestive heart failure), NYHA class II Code(s): I50.9 - Heart failure, unspecified Status: Acute (4) CHF (congestive heart failure) Code(s): I50.9 - Heart failure, unspecified Status: Acute (5) Respiratory abnormalities Code(s): J98.9 - Respiratory disorder, unspecified Status: Acute (6) Emphysema of lung Code(s): J43.9 - Emphysema, unspecified Status: Acute (7) Borderline diabetes mellitus Code(s): R73.03 - Prediabetes Status: Acute (8) Fracture, intertrochanteric, left femur Code(s): S72.142A - Displaced intertrochanteric fracture of left femur, initial encounter for closed fracture Status: Acute (9) Nutrition, metabolism, and development symptoms Code(s): R63.8 - Other symptoms and signs concerning food and fluid intake Status: Acute - Plan RECOMMENDATIONS: 1. Ventilator support and wean PSV to 15 CPAP +5, and FIO2 to 35 % 2. Bronchodilators ,DuoNeb q.6 hr. 3. D/W family here. 4. Possible trach if not able to wean off vent this week. 5. Continue with Lasix 40 mg daily. 6. Cont antibiotics per ID. 7.,back to A/C rate 12 at HS 8. Prednisone 10 mg BID 9. CXR ,CBC, PT INR BMP in am 10. Discussed bronchoscopy for chronic atelectasis and mucus plugging and need for therapeutic lavage and need for culture and cytology. Risks incl bleeding ,Pneumothorax resp failure and cardiac arrhythmia. has agreed.
[2018-01-13] MEDS: Loperamide 2 MG Capsule PO PRN (12:30)
--- NOTE | 2018-01-13 12:37 | P.PNGI ---
Subjective Interval history: Patient randomly opens eyes and does respond to some verbal stimuli. Family speaks [place] to him. Spent greater than 20 minutes in the room speaking to family and answering all questions. Patient continues in the intensive care setting with ventilator management Loose stools noted today Imodium ordered, C. difficile is negative <TimAlona Jessika - Last Filed: 01/13/18 12:41> Physical Exam Vital signs: Vital Signs 01/12/18 13:00 01/12/18 14:00 01/12/18 15:00 Temperature Pulse Rate 91 H 98 H 100 H Respiratory Rate 25 H 30 H 35 H Blood Pressure 137/63 116/79 151/67 H Pulse Oximetry 91 L 88 L 86 L 01/12/18 15:48 01/12/18 16:00 01/12/18 17:00 Temperature 98.8 F Pulse Rate 94 H 91 H 97 H Respiratory Rate 17 17 25 H Blood Pressure 112/56 L 111/56 L Pulse Oximetry 93 L 90 L 88 L 01/12/18 18:00 01/12/18 19:00 01/12/18 19:18 Temperature Pulse Rate 94 H 85 Respiratory Rate 22 17 17 Blood Pressure 114/58 L 107/53 L Pulse Oximetry 95 92 L 94 L 01/12/18 19:22 01/12/18 20:00 01/12/18 21:00 Temperature 99.5 F Pulse Rate 85 86 84 Respiratory Rate 16 16 17 Blood Pressure 108/54 L 112/56 L Pulse Oximetry 94 L 94 L 01/12/18 22:00 01/12/18 22:19 01/12/18 23:00 Temperature Pulse Rate 84 90 Respiratory Rate 20 19 24 Blood Pressure 113/57 L 129/62 Pulse Oximetry 92 L 93 L 94 L 01/12/18 23:29 01/13/18 00:00 01/13/18 01:00 Temperature 98.8 F Pulse Rate 81 81 81 Respiratory Rate 16 16 17 Blood Pressure 122/59 L 110/53 L Pulse Oximetry 94 L 92 L 01/13/18 01:25 01/13/18 02:00 01/13/18 03:00 Temperature Pulse Rate 85 81 Respiratory Rate 19 19 17 Blood Pressure 116/57 L 115/56 L Pulse Oximetry 93 L 92 L 92 L 01/13/18 04:00 01/13/18 04:02 01/13/18 04:04 Temperature 99.2 F Pulse Rate 86 83 Respiratory Rate 24 20 17 Blood Pressure 118/57 L Pulse Oximetry 92 L 92 L 01/13/18 05:00 01/13/18 06:00 01/13/18 07:00 Temperature Pulse Rate 86 78 86 Respiratory Rate 26 H 17 22 Blood Pressure 121/59 L 116/58 L 119/57 L Pulse Oximetry 95 91 L 91 L 01/13/18 08:00 01/13/18 09:00 01/13/18 10:00 Temperature 98.7 F Pulse Rate 80 86 91 H Respiratory Rate 17 26 H 34 H Blood Pressure 117/56 L 113/56 L 133/60 Pulse Oximetry 92 L 95 88 L Intake & Output 01/12/18 01/13/18 01/13/18 18:59 06:59 18:59 Intake Total 1338 / 1338 636 / 636 50 / 50 Output Total 1200 / 1200 600 / 600 Balance 138 / 138 36 / 36 50 / 50 Weight 69.3 kg Intake: IV 200 / 200 100 / 100 50 / 50 Flexbumin 25% Inj 100 ML @ 60 100 / 100 mls/hr IV.SIG ONCE ONE Rx#: [id number] Zosyn 3.375 GM Premix 50 ML @ 100 / 100 100 / 100 50 / 50 100 mls/hr IV.SIG Q6H NOAH Rx#: [id number] Tube Feeding 958 / 958 506 / 506 Water Bolus Amount 180 / 180 30 / 30 Output: Urine 1200 / 1200 600 / 600 Other: Date of Last Bowel Movement 01/12/18 01/13/18 01/13/18 # Incontinent Bowel Movements 7 2 - Constitutional mild distress (Intensive care unit with ventilator management), chronically ill appearing - Routine HEENT Exam Head: Present: normocephalic (Opens eyes randomly, laura) ENT: Present: mucous membranes moist - Routine Respiratory Exam Present: patient mechanically ventilated, decreased breath sounds - Routine Cardiovascular Exam Present: S1, S2 - Routine Abdominal Exam Present: soft, normoactive bowel sounds, distended (Moderate, positive fluid shift, no obvious abdominal tenderness) - Urinary Catheter Management Straight Cath placed during this visit: yes, but has since been removed by the nurse Reason for continuing: Not indwelling catheter Insertion date: 12/23/17 Insertion time: 01:00 Removal date: 12/22/17 Removal time: 01:00 Condom Cath placed during this visit: no <Alona Dumont M - Last Filed: 01/13/18 12:41> Vital signs: Vital Signs 01/12/18 21:00 01/12/18 22:00 01/12/18 22:19 Temperature Pulse Rate 84 84 Respiratory Rate 17 20 19 Blood Pressure 112/56 L 113/57 L Pulse Oximetry 94 L 92 L 93 L 01/12/18 23:00 01/12/18 23:29 01/13/18 00:00 Temperature 98.8 F Pulse Rate 90 81 81 Respiratory Rate 24 16 16 Blood Pressure 129/62 122/59 L Pulse Oximetry 94 L 94 L 01/13/18 01:00 01/13/18 01:25 01/13/18 02:00 Temperature Pulse Rate 81 85 Respiratory Rate 17 19 19 Blood Pressure 110/53 L 116/57 L Pulse Oximetry 92 L 93 L 92 L 01/13/18 03:00 01/13/18 04:00 01/13/18 04:02 Temperature 99.2 F Pulse Rate 81 86 Respiratory Rate 17 24 20 Blood Pressure 115/56 L 118/57 L Pulse Oximetry 92 L 92 L 92 L 01/13/18 04:04 01/13/18 05:00 01/13/18 06:00 Temperature Pulse Rate 83 86 78 Respiratory Rate 17 26 H 17 Blood Pressure 121/59 L 116/58 L Pulse Oximetry 95 91 L 01/13/18 07:00 01/13/18 08:00 01/13/18 09:00 Temperature 98.7 F Pulse Rate 86 80 86 Respiratory Rate 22 17 26 H Blood Pressure 119/57 L 117/56 L 113/56 L Pulse Oximetry 91 L 92 L 95 01/13/18 10:00 01/13/18 11:00 01/13/18 12:00 Temperature 98.0 F Pulse Rate 91 H 93 H 93 H Respiratory Rate 34 H 22 39 H Blood Pressure 133/60 136/62 149/67 H Pulse Oximetry 88 L 89 L 90 L 01/13/18 12:54 01/13/18 13:00 01/13/18 14:00 Temperature Pulse Rate 93 H 93 H Respiratory Rate 38 H 34 H 37 H Blood Pressure 149/66 H 148/68 H Pulse Oximetry 89 L 90 L 01/13/18 15:00 01/13/18 16:00 01/13/18 16:05 Temperature 97.9 F Pulse Rate 96 H 92 H 90 Respiratory Rate 37 H 42 H 31 H Blood Pressure 137/62 140/63 140/63 Pulse Oximetry 90 L 92 L 95 01/13/18 16:14 01/13/18 17:00 01/13/18 18:00 Temperature Pulse Rate 89 90 Respiratory Rate 33 H 27 H 24 Blood Pressure 158/67 H 131/70 Pulse Oximetry 97 96 01/13/18 20:22 Temperature Pulse Rate Respiratory Rate 25 H Blood Pressure Pulse Oximetry 100 Intake & Output 01/13/18 01/13/18 01/14/18 06:59 18:59 06:59 Intake Total 636 / 636 825 / 825 50 / 50 Output Total 600 / 600 400 / 400 Balance 36 / 36 425 / 425 50 / 50 Weight 69.3 kg Intake: IV 100 / 100 200 / 200 50 / 50 Flexbumin 25% Inj 50 ML @ 60 100 / 100 mls/hr IV.SIG Q50M NOAH Rx#: [id number] Zosyn 3.375 GM Premix 50 ML @ 100 / 100 100 / 100 50 / 50 100 mls/hr IV.SIG Q6H NOAH Rx#: [id number] Tube Feeding 506 / 506 385 / 385 Water Bolus Amount 30 / 30 240 / 240 Output: Urine 600 / 600 Urine Amount (Catheter) 400 / 400 Condom 400 / 400 Other: Date of Last Bowel Movement 01/13/18 01/13/18 # Incontinent Bowel Movements 2 8 - Urinary Catheter Management Straight Cath placed during this visit: no Condom Cath placed during this visit: no <Kelly Aranda - Last Filed: 01/13/18 20:58> Results - Labs CBC & Chem 7: 01/12/18 05:13 01/13/18 07:16 Laboratory Results - last 24 hr 01/12/18 01/12/18 01/12/18 09:45 16:15 19:54 Sodium Potassium Chloride Carbon Dioxide Anion Gap BUN Creatinine Estimated GFR POC Glucose 291 H 206 H Random Glucose Calcium Stl C.difficile DNA Amp Negative St C. diff Tox Epid 027 Negative 01/13/18 01/13/18 01/13/18 00:07 07:15 07:16 Sodium 149 H Potassium 4.2 Chloride 110 H Carbon Dioxide 33.6 H Anion Gap 5 BUN 53 H Creatinine 1.05 Estimated GFR 68 L POC Glucose 143 H 203 H Random Glucose 174 H Calcium 7.8 L Stl C.difficile DNA Amp St C. diff Tox Epid 027 <Alona Dumont - Last Filed: 01/13/18 12:41> - Labs CBC & Chem 7: 01/13/18 07:16 01/13/18 07:16 Laboratory Results - last 24 hr 01/12/18 01/13/18 01/13/18 05:12 00:07 07:15 WBC RBC Hgb Hct MCV MCH MCHC RDW Plt Count MPV Prelim Diff (Auto) Neut % (Auto) Lymph % (Auto) [place] % (Auto) Eos % (Auto) Baso % (Auto) Neut # (Auto) Lymph # (Auto) [place] # (Auto) Eos # (Auto) Baso # (Auto) WBC Differential Seg Neuts % (Manual) Lymphocytes % (Manual) Monocytes % (Manual) Metamyelocytes % (Man) Myelocytes % (Man) Abs Neuts (Manual) Differential Comment Platelet Estimate Platelet Morphology Sodium Potassium Chloride Carbon Dioxide Anion Gap BUN Creatinine Estimated GFR POC Glucose 143 H 203 H Random Glucose Calcium RISA Screen Neg 01/13/18 01/13/18 01/13/18 07:16 07:16 12:31 WBC 5.0 RBC 2.69 L Hgb 8.0 L Hct 24.9 L MCV 92.5 MCH 29.6 MCHC 32.0 RDW 16.6 Plt Count 80 L MPV 9.3 Prelim Diff (Auto) Slide review pending Neut % (Auto) 80.4 H Lymph % (Auto) 12.4 [place] % (Auto) 5.1 Eos % (Auto) 1.7 Baso % (Auto) 0.4 Neut # (Auto) 4.0 Lymph # (Auto) 0.6 L [place] # (Auto) 0.3 Eos # (Auto) 0.1 Baso # (Auto) 0.0 WBC Differential Manual diff final Seg Neuts % (Manual) 76 H Lymphocytes % (Manual) 17 Monocytes % (Manual) 4 Metamyelocytes % (Man) 2 H Myelocytes % (Man) 1 H Abs Neuts (Manual) 4.0 Differential Comment . Platelet Estimate Low L Platelet Morphology Normal Sodium 149 H Potassium 4.2 Chloride 110 H Carbon Dioxide 33.6 H Anion Gap 5 BUN 53 H Creatinine 1.05 Estimated GFR 68 L POC Glucose 220 H Random Glucose 174 H Calcium 7.8 L RISA Screen 01/13/18 01/13/18 16:21 20:35 WBC RBC Hgb Hct MCV MCH MCHC RDW Plt Count MPV Prelim Diff (Auto) Neut % (Auto) Lymph % (Auto) [place] % (Auto) Eos % (Auto) Baso % (Auto) Neut # (Auto) Lymph # (Auto) [place] # (Auto) Eos # (Auto) Baso # (Auto) WBC Differential Seg Neuts % (Manual) Lymphocytes % (Manual) Monocytes % (Manual) Metamyelocytes % (Man) Myelocytes % (Man) Abs Neuts (Manual) Differential Comment Platelet Estimate Platelet Morphology Sodium Potassium Chloride Carbon Dioxide Anion Gap BUN Creatinine Estimated GFR POC Glucose 225 H 100 Random Glucose Calcium RISA Screen - Imaging Impressions Venous Doppler Study 01/13/18 00:00 CONCLUSION: 1. The study is negative for lower extremity deep venous thrombosis. <Kelly Aranda - Last Filed: 01/13/18 20:58> Assessment and Plan - Plan - Anemia- likely multifactorial, no bleeding reported hgb today 7.9 - Elevated ALP/thrombocytopenia - No previous hx of liver dz, used to be drinker in the remote past This could be secondary to cardiac etiology vs liver dz Abdomen Ultrasound 01/09/18 1. Limited examination due to obscuration by bowel gas. 2. Simple left renal cyst. 3. Moderate amount of ascites in the right upper quadrant. - Ascites- No previous hx of liver dz, used to be drinker in the remote past This could be secondary to cardiac etiology vs liver dz He is on Lasix - COPD - Respiratory failure- intubated now - HCAP - congestive heart failure secondary to pulmonary hypertension 01/12/2018 patient continues in the intensive care setting on ventilator management. Does occasionally open eyes to loud voice. No obvious melena stools hematemesis or bright red rectal bleeding noted labs reviewed with current hemoglobin 8, platelet count 73, bilirubin 0.8, AST 57, noted to be hep C positive which could explain this mild elevation and ALT 74, alkaline phosphatase mildly elevated to 245. Patient is being followed per gastroenterology for anemia and positive Hemoccult. Hep C positive Currently no paracentesis done to this point. According to family members no history of GI bleed or rectal bleeding Anemia, hemoglobin remains low which is probably chronic but no obvious bleeding noted at this time. Consider further workup for hep C 01/13/2018, no acute changes noted as far as patient's ventilator management. and daughter present in the room and another daughter on the telephone. Family is requesting update and plan of care from a GI perspective which has been discussed with him several times before. Today discussion was around monitoring for any obvious bleeding, considering paracentesis in the future if warranted, possible PEG tube placement if patient is unable to wean from ventilator. Also discussed positive hep C reactive per labs this admission ( unknown cause). Family states patient had drank in the past but has not had any alcohol in the past 15-20 years and denies any illicit drug history. Explained that there are labs pending, and further liver disease workup would be done on an outpatient basis as well as monitoring labs while in the hospital. Patient also may require EGD once he is more stable and off ventilator. Supportive care given Diarrhea loose stools could be related to tube feed, versus medications. Patient's been placed on Lomotil and C. difficile is negative. Will also consider Xifaxan, RISA negative, Plan: Diet, continue tube feeds for now Glucerna 1.5 at 45 cc an hour Xifaxin 550mg. BID Pepto-Bismol 15 cc 3 times a day Consider liver biopsy when patient is more stable. Continue Lomotil as needed Consider paracentesis once patient is stable, and evaluate fluid Monitor labs, genotype and other liver labs pending PPI Bowel regimen as needed Consider EGD once patient is stable Supportive care, to patient and family Patient was seen per myself and Dr. Aranda, note was written on his behalf <Alona Dumont - Last Filed: 01/13/18 12:41> - Attending Attestation seen, examined agree with above await hep c viral load <Kelly Aranda - Last Filed: 01/13/18 20:58>
[2018-01-13 12:39] LABS: Baso % (Auto) 0.4 % (0.0-2.0); Eos # (Auto) 0.1 th/mm3 (0.0-0.4); Eos % (Auto) 1.7 % (0.0-4.0); Hematocrit 24.9 % (39.0-51.0); Lymph # (Auto) 0.6 th/mm3 (1.0-4.8); Lymph % (Auto) 12.4 % (9.0-44.0); Mean Corpuscular Hemoglobin 29.6 pg (27.0-34.0); Mean Corpuscular Volume 92.5 fL (80.0-100.0); Mean Platelet Volume 9.3 fL (7.0-11.0); Mono # (Auto) 0.3 th/mm3 (0.0-0.9); Mono % (Auto) 5.1 % (0.0-8.0); Neut % (Auto) 80.4 % (16.0-70.0); Platelet Count 80 th/mm3 (150-450); Red Blood Count 2.69 mil/mm3 (4.50-5.90); Red Cell Distribution Width 16.6 % (11.6-17.2)
[2018-01-13 13:07] LABS: Lymphocytes 17 % (9-44); Metamyelocytes 2 % (0-1); Monocytes 4 % (0-8); Myelocytes 1 % (0-0)
[2018-01-13 13:08] LABS: Platelet Morphology Normal (Normal)
--- NOTE | 2018-01-13 13:20 | P.PNCC ---
Subjective Subjective Remarks/Hospital Course: 82-year-old male with past medical history of COPD and CHF presents for an evaluation of shortness of breath and hypoxemia worsening over past few days. The nebulizer treatments helped initially however today there were not helpful. EMS reports on scene the O2 sat was in the 80s. He received high flow oxygen and nebulized albuterol in route here. His blood pressure initially in the emergency department was 200/100 however trended down to about 160/90. BiPAP was started in the emergency department with improvement in his O2 sat that has trended towards the high 90s with 100% FiO2 on BiPAP. Shortly after transfer to ICU the patient continues to to be more hypoxemic and restless requiring endotracheal intubation and mechanical ventilation. 12/20: intubated and sedated. still hypercarbic with qrekg-of-lizmhsf respiratory acidosis. family unhappy that patient was intubated: they insisted last night on being a Full Code, but apparently the daughter required that she be notified of exactly what SpO2 the patient was at, and it had to reach a certain low level before she would be ok with intubation. Per overnight records , patient presented with severe respiratory distress, and family reports that EMS stated patient "wouldn't make it all the way to [facility]" due to his pulmonary instability. This morning, hypoxia is somewhat improved. remains on broad spectrum antibiotics. I explained to family that this is likely a new pneumonia causing respiratory failure. I also explained that after recent hip fracture and recent prolonged hospitalization, his baseline end-stage lung disease and NYHA Class IV symptoms are likely to worsen, and this may be worsening of his overall end-stage disease processes. Family continues to state that our facility caused his lung failure during the prior hospitalization. They are also concerned about his poor peripheral perfusion and oliguria, which concerns me also: I explained that his heart failure could not tolerate significant amount of iv fluids, and we have already given him 1500mL over the last 12 hours, but they have insisted on additional iv fluids. I explained he had severe sepsis and the mortality associated with this. Daughter continues to remind me that her father "is coming home with her and getting better" as she has stated multiple times in the past. 12/21: no improvements. remains intubated. clinically becoming volume overloaded - will be forced to start diuresis. 12/22: mental status slightly improved. still failing weaning attempts. 12/23: Afebrile. Currently on PSV trial 15/7 at 45%. Discussed with and daughter at bedside. Chest x-ray revealed ET tube at [place]. Retracted 1 cm. Tolerating tube feeds with family requested 40 cc an hour. 12/24: Afebrile. Currently CPAP trial FiO2 at 45%. Tolerating tube feeds if family requested 40 cc an hour. Receiving morphine 1-2 mg every 4 hours as needed pain. 12/25 No events overnight remains intubated off sedation. Tolerated CPAP for several hrs yesterday. Afebrile. 12/26 No events overnight. Patient tolerated CPAP for most of day yesterday. Awake and alert follows commands, on no sedation. 12/27 Patient was extubated yesterday on 4L oxygen. Awake. Afebrile. 12/28 No events overnight. Remains on 4L oxygen. Awake and alert. 12/30: RECONSULT NOTE: reconsulted as rapid response for hypoxia. per the family , patient had desaturation episode to the 60s, placed on NRB. family insisted on transfer back to ICU. when I saw patient on arrival to ICU, patient spo2 99% on NRB. pao2 on NRB was 150. patient is well-known to me with baseline spo2 82- 86% on 5L o2 by NC at home. family states he has another pneumonia. on my review of CXR and lab evidence, unclear if this is new pneumonia vs. old chronic lung disease. patient denies sob or new symptoms. 12/31: no changes. remains on simple mask at 6LPM. not in distress. family does not want to leave ICU and wants to continue ICU care for the remainder of the hospitalization. long discussion about needing to de-escalate level of care prior to hospital discharge. 01/07 Reconsult for Resp. distress. Patient was placed on BIPAP with 60% FIO2. ABG this morning showed some improvements in his resp acidosis with PH:7.34, CO2 72 from 82. CXR from 16/[address] chest today. 01/08 Patient was intubated this morning for worsening resp acidosis. CT chest yesterday showed pneumonia/aspiration. On Diprivan for sedation. Afebrile. 01/09 Patient is intubated and on low dose Diprivan drip. Afebrile. 01/10 Patient remains intubated. Awake, tolerated CPAP for most of day yesterday. Afebrile. 01/11 No events overnight. Awake and alert off sedation, tolerated CPAP all day yesterday. Afebrile. 01/12: Family concern regarding testicular swelling. I went over available laboratories. Will check hepatitis C genotype and PCR viral load today. We will also check C. difficile per family request. Patient tolerated CPAP yesterday for around 10 hours. Has been on CPAP since 8 AM this morning. FiO2 35%. Subjective: 01/13: Afebrile. Remains on CPAP trial 16/08 at 35%. All x-rays pending. Long discussion with family at bedside and via telephone. Plan for bronchoscopy tomorrow if okay with 2 other daughters with pulmonology. Objective Vital Signs / I&O: Vital Signs 01/12/18 14:00 01/12/18 15:00 01/12/18 15:48 Temperature Pulse Rate 98 H 100 H 94 H Respiratory Rate 30 H 35 H 17 Blood Pressure 116/79 151/67 H Pulse Oximetry 88 L 86 L 93 L 01/12/18 16:00 01/12/18 17:00 01/12/18 18:00 Temperature 98.8 F Pulse Rate 91 H 97 H 94 H Respiratory Rate 17 25 H 22 Blood Pressure 112/56 L 111/56 L 114/58 L Pulse Oximetry 90 L 88 L 95 01/12/18 19:00 01/12/18 19:18 01/12/18 19:22 Temperature Pulse Rate 85 85 Respiratory Rate 17 17 16 Blood Pressure 107/53 L Pulse Oximetry 92 L 94 L 01/12/18 20:00 01/12/18 21:00 01/12/18 22:00 Temperature 99.5 F Pulse Rate 86 84 84 Respiratory Rate 16 17 20 Blood Pressure 108/54 L 112/56 L 113/57 L Pulse Oximetry 94 L 94 L 92 L 01/12/18 22:19 01/12/18 23:00 01/12/18 23:29 Temperature Pulse Rate 90 81 Respiratory Rate 19 24 16 Blood Pressure 129/62 Pulse Oximetry 93 L 94 L 01/13/18 00:00 01/13/18 01:00 01/13/18 01:25 Temperature 98.8 F Pulse Rate 81 81 Respiratory Rate 16 17 19 Blood Pressure 122/59 L 110/53 L Pulse Oximetry 94 L 92 L 93 L 01/13/18 02:00 01/13/18 03:00 01/13/18 04:00 Temperature 99.2 F Pulse Rate 85 81 86 Respiratory Rate 19 17 24 Blood Pressure 116/57 L 115/56 L 118/57 L Pulse Oximetry 92 L 92 L 92 L 01/13/18 04:02 01/13/18 04:04 01/13/18 05:00 Temperature Pulse Rate 83 86 Respiratory Rate 20 17 26 H Blood Pressure 121/59 L Pulse Oximetry 92 L 95 01/13/18 06:00 01/13/18 07:00 01/13/18 08:00 Temperature 98.7 F Pulse Rate 78 86 80 Respiratory Rate 17 22 17 Blood Pressure 116/58 L 119/57 L 117/56 L Pulse Oximetry 91 L 91 L 92 L 01/13/18 09:00 01/13/18 10:00 01/13/18 12:00 Temperature Pulse Rate 86 91 H 93 H Respiratory Rate 26 H 34 H 34 H Blood Pressure 113/56 L 133/60 Pulse Oximetry 95 88 L 01/13/18 12:54 Temperature Pulse Rate Respiratory Rate 38 H Blood Pressure Pulse Oximetry Intake & Output 01/12/18 01/13/18 01/13/18 18:59 06:59 18:59 Intake Total 1338 / 1338 636 / 636 50 / 50 Output Total 1200 / 1200 600 / 600 Balance 138 / 138 36 / 36 50 / 50 Weight 69.3 kg Intake: IV 200 / 200 100 / 100 50 / 50 Flexbumin 25% Inj 100 ML @ 60 100 / 100 mls/hr IV.SIG ONCE ONE Rx#: [id number] Zosyn 3.375 GM Premix 50 ML @ 100 / 100 100 / 100 50 / 50 100 mls/hr IV.SIG Q6H NOAH Rx#: [id number] Tube Feeding 958 / 958 506 / 506 Water Bolus Amount 180 / 180 30 / 30 Output: Urine 1200 / 1200 600 / 600 Other: Date of Last Bowel Movement 01/12/18 01/13/18 01/13/18 # Incontinent Bowel Movements 7 2 Result Diagrams: 01/13/18 07:16 01/13/18 07:16 Other Results: Microbiology 01/08/18 09:11 Sputum - Endotracheal Gram Stain - Final 01/08/18 09:11 Sputum - Endotracheal Sputum Culture - Final Heavy growth normal respiratory vaishnavi 01/02/18 03:40 Stool Stool Occult Blood (LUIS FELIPE) - Final Hemoccult positive 12/19/17 21:20 Blood - Peripheral Aerobic Blood Culture - Final No growth in 5 days 12/19/17 21:20 Blood - Peripheral Anaerobic Blood Culture - Final No growth in 5 days 12/19/17 21:30 Blood - Peripheral Aerobic Blood Culture - Final No growth in 5 days 12/19/17 21:30 Blood - Peripheral Anaerobic Blood Culture - Final No growth in 5 days 12/20/17 14:10 Sputum - Endotracheal Gram Stain - Final 12/20/17 14:10 Sputum - Endotracheal Sputum Culture - Final Heavy growth normal respiratory vaishnavi 12/20/17 11:50 Clean Catch Urine Urine Culture - Final No growth in 48 hours 12/20/17 11:50 Urine - Catheterized Urine Legionella Antigen - Final Presumptive negative for Legionella pneumophila serogroup 1 antigen in urine, suggesting no recent or recurrent infection. Infection due to Legionella cannot be ruled out since other serogroups and species may cause disease, antigen may not be present in urine in early infection, and the level of antigen present in the urine may be below the detection limit of the test. 12/20/17 11:50 Urine - Catheterized Urine Streptococcus pneumoniae Antigen ( M - Final Presumptive negative for streptococcus pneumoniae antigen, suggesting no current or recent infection. Infection due to Streptococcus pneumoniae cannot be ruled out since the antigen present in the sample may be below the detection limit of the test. Imaging: Chest X-Ray 12/19/17 21:26 CONCLUSION: Worsening airspace process right lower lung most likely pneumonia with completely opacified left hemithorax probably due to a pleural effusion and/or left lung consolidation/collapse. Underlying mass is difficult to exclude. Chest X-Ray 12/20/17 04:19 CONCLUSION: 1. Worsening right upper lobe consolidation. 2. Slightly improved right base consolidation. 3. Volume loss, consolidation and pleural effusion on the left slightly improved. Chest X-Ray 12/21/17 05:00 CONCLUSION: No significant interval change. Persistent left-sided pleural effusion and pulmonary parenchymal opacity along with hazy right lung opacity. Chest X-Ray 12/23/17 00:00 CONCLUSION: Endotracheal tube tip at the [place]. No other significant interval change. Persistent left pleural effusion and bilateral pulmonary parenchymal opacity. Chest X-Ray 12/24/17 06:00 CONCLUSION: No significant interval change. Left-sided pleural effusion and mild bilateral parenchymal opacity again seen. Chest X-Ray 12/25/17 06:00 CONCLUSION: No significant change. Chest X-Ray 12/29/17 12:02 CONCLUSION: 1. Interval extubation. 2. No significant change in the left pleural-based opacity calcification. Chest X-Ray 12/30/17 00:00 CONCLUSION: 1. Worsening airspace disease in the right mid to lower lung zones. 2. Persistent prominent left-sided pleural thickening and calcified pleural plaques with associated volume loss. 3. Stable right apical pleural-parenchymal scarring. Chest X-Ray 12/31/17 00:00 CONCLUSION: 1. Slightly improved right mid to lower lung zone airspace disease. 2. Persistent prominent diffuse left-sided pleural opacity/thickening with associated left lung volume loss. 3. Stable right apical pleural parenchymal scarring. Abdomen X-Ray 01/01/18 00:00 CONCLUSION: 1. No bowel obstruction, ileus or perforation. 2. Degenerative changes and scoliosis of the lumbar spine. Chest X-Ray 01/05/18 00:00 CONCLUSION: Stable chest with prominent lateral left-sided pleural opacity likely pleural effusion. Pleural-parenchymal density right lung is also stable. Chest CT 01/07/18 00:00 CONCLUSION: 1. Postsurgical features of suspected previous left-sided lobectomy with volume loss and mediastinal shift to the left. 2. Bulky left-sided pleural plaques with chronic appearing small to moderate sized loculated left pleural effusion. 3. Dense airspace consolidation in the superior segment of the right lower lobe with patchy interstitial and groundglass opacities throughout the right lower lobe. Differential considerations include pneumonia and aspiration in the appropriate clinical setting. 4. Trace right-sided pleural effusion with fluid extending into the major fissure. 5. Mild coronary artery calcifications. 6. Small amount of ascites in the visualized upper abdomen. Chest X-Ray 01/08/18 06:58 CONCLUSION: Stable chest following ablation. Moderate either pleural thickening or pleural fluid remains on the right. Moderate interstitial edema persist. Abdomen Ultrasound 01/09/18 00:00 CONCLUSION: 1. Limited examination due to obscuration by bowel gas. 2. Simple left renal cyst. 3. Moderate amount of ascites in the right upper quadrant. Chest X-Ray 01/10/18 06:00 CONCLUSION: Stable to slight increase in right basilar airspace disease. Loculated left pleural fluid and left basilar opacity are stable. Chest X-Ray 01/12/18 07:41 CONCLUSION: 1. Stable ETT and NGT. 2. Slightly improved airspace disease in the right mid to lower lung zones. 3. Persistent moderate loculated left-sided pleural effusion with associated left lung airspace disease and volume loss. Objective Remarks: GENERAL: 82-year-old male lying in bed orotracheally intubate HEENT: Normocephalic. Atraumatic. Pupils equal, round, reactive, conjugate. Mucous membranes are moist NECK: Trachea is midline. No JVD, orally intubated with ETT 7.5cm CHEST: B/l equal air entry, diminished at bases CARDIOVASCULAR: Normal rate, regular rhythm. S1, S2. No S4 per ABDOMEN: Soft, nontender, nondistended. No guarding. MUSCULOSKELETAL: Pulses 2+. significant evidence of scrotal edema. 1+ peripheral edema. No mottling NEUROLOGICAL: I arousable on the ventilator. Moves all 4 extremities spontaneously. Assessment and Plan - Assessment and Plan Plan: Neuro/psych: Acute metabolic encephalopathy- resolved Off sedation. 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 SBT daily. Will likely need trach/PEG tube placement. Patient is at high risk of reintubation if gets extubated as this is his second intubation Continue prednisone 10mg BID Pulmonary is following- Dr. Lazcano CT chest: Postsurgical features of suspected previous left-sided lobectomy with volume loss and mediastinal shift to the left. Bulky left-sided pleural plaques with chronic appearing small to moderate sized loculated left pleural effusion. Dense airspace consolidation in the superior segment of the right lower lobe with patchy interstitial and groundglass opacities throughout the right lower lobe. 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 Normal left ventricular size. Wall thickness is normal. No regional wall motion abnormalities are present. Diffuse calcification of the aortic valve but no significant stenosis. There is mild to moderate tricuspid valve regurgitation. The estimated pulmonary arterial pressure is 76.9 mmHg with severe pulmonary hypertension. Previously on furosemide 40 mg by tube daily Today we will give albumin 25 g followed by furosemide 10 mg IV x1. Reassess furosemide in a.m. As needed labetalol and Nitropaste for hypertension Renal/: History of nephrolithiasis Monitor renal function, I/O's, electrolytes replacement per protocol. FEN/GI: Severe acute protein calorie malnutrition Hep C IgG positive HyperNatremia On tube feeds- Glucerna 1.5 @45ml/hr Lansoprazole for GI prophylaxis Docusate sodium/senna 1 tablet twice daily for bowel regimen GI is following US abdomen: Limited exam due to obscuration by bowel gas.Simple left renal cyst. small ascites in the right upper quadrant. Pending hepatitis C genotype and PCR viral load ID: Healthcare associated pneumonia Severe sepsis- present on admission Normocytic anemia Thrombocytopenia Abx per ID (piperacillin/tazobactam) Monitor for signs of infections ( Fever, WBC) Follow up on sputum 01/08 normal resp vaishnavi Sputum culture 12/20-shea resp vaishnavi Blood cultures 12/19 no growth Urine UA with urine culture 12/20-NGTD Negative Legionella and pneumococcal urinary antigens Endocrine: Hyperglycemia of critical illness -- On medium SSI , continue insulin detemir [id number] Heme: Normocytic anemia Thrombocytopenia Monitor CBC, Hep PLT ab negative MSK:: History of left IT nailing 11/14 Vitamin D deficiency PT evaluate and treat Prophylaxis: GI Prophylaxis Lansoprazole DVT Prophylaxis -- SCDs - Enoxaparin held for anemia, thrombocytopenia and Hemoccult positive Lines: Peripheral IVs. Family considering PICC line All questions answered and they all voiced understanding of his condition Level 3 Long discussion with /daughter at bedside and daughter on telephone. Care plan discussed. Plan for bronchoscopy in a.m. with pulmonology at bedside. is allowed to stay in the room. Plan is to extubate patient when passes parameters. If unable to extubate/fails next extubation attempt will need trach and PEG and family is agreeable to that course of action if needed at the present time. Verbalized their understanding of this course of action.
[2018-01-13] MEDS ORDERED: Albumin Human 25% Inj 100 ML IV.SIG ONE (14:15)
--- NOTE | 2018-01-13 14:26 | US ---
EXAM DATE: 01/13/2018 12:00 AM EDT AGE/SEX: 82 years / Male INDICATIONS: Left leg swelling. CLINICAL DATA: This is the patient's subsequent encounter. Patient reports that signs and symptoms h ave been present for 1 day and indicates a pain score of 0/10. MEDICAL/SURGICAL HISTORY: Chronic obstructive pulmonary disease. Diabetes. Kidney stone. Pneumo thorax. . Hernia repair. Lobectomy of lung. Hip surgery. COMPARISON: [facility] [place], US VENOUS DOPPLER LEG BI, 11/15/2017. . TECHNIQUE: Venous ultrasound of both lower extremities was performed from the inguinal ligament to t he proximal calf. Real-time, color Doppler and spectral tracing, compression and augmentation techni ques were used. FINDINGS: Normal compression of the deep venous system from the inguinal region to the proximal calf . No echogenic clot is seen. Normal response of the venous system to augmentation and respiration. CONCLUSION: 1. The study is negative for lower extremity deep venous thrombosis. Electronically signed by: Kamari Jara MD 01/13/2018 2:25 PM EDT
[2018-01-13] MEDS: Albumin Human 25% Inj 50 ML IV.SIG SCH ×2 (15:05→16:14)
[2018-01-13] MEDS: rifAXIMin 550 MG Tablet PO SCH ×2 (15:05→22:38)
[2018-01-13] MEDS: Bismuth Subsalicylate Susp 240 ML Bottle NG/OG SCH ×3 (16:14→22:36)
--- NOTE | 2018-01-13 17:40 | P.PNID ---
Subjective Remarks: remains o n CPAP, 35% + secretions, quite thick no fever cont to have diarrhea 8-9 BMs today tolerates TF @ 45 cc/hr family considering bronch, but not signed consent yet Antibiotics: zosyn Allergies/Adverse Reactions: Allergies No Known Allergies Allergy (Verified 12/19/17 21:39) Objective Vital Signs 01/12/18 18:00 01/12/18 19:00 01/12/18 19:18 Temperature Pulse Rate 94 H 85 Respiratory Rate 22 17 17 Blood Pressure 114/58 L 107/53 L Pulse Oximetry 95 92 L 94 L 01/12/18 19:22 01/12/18 20:00 01/12/18 21:00 Temperature 99.5 F Pulse Rate 85 86 84 Respiratory Rate 16 16 17 Blood Pressure 108/54 L 112/56 L Pulse Oximetry 94 L 94 L 01/12/18 22:00 01/12/18 22:19 01/12/18 23:00 Temperature Pulse Rate 84 90 Respiratory Rate 20 19 24 Blood Pressure 113/57 L 129/62 Pulse Oximetry 92 L 93 L 94 L 01/12/18 23:29 01/13/18 00:00 01/13/18 01:00 Temperature 98.8 F Pulse Rate 81 81 81 Respiratory Rate 16 16 17 Blood Pressure 122/59 L 110/53 L Pulse Oximetry 94 L 92 L 01/13/18 01:25 01/13/18 02:00 01/13/18 03:00 Temperature Pulse Rate 85 81 Respiratory Rate 19 19 17 Blood Pressure 116/57 L 115/56 L Pulse Oximetry 93 L 92 L 92 L 01/13/18 04:00 01/13/18 04:02 01/13/18 04:04 Temperature 99.2 F Pulse Rate 86 83 Respiratory Rate 24 20 17 Blood Pressure 118/57 L Pulse Oximetry 92 L 92 L 01/13/18 05:00 01/13/18 06:00 01/13/18 07:00 Temperature Pulse Rate 86 78 86 Respiratory Rate 26 H 17 22 Blood Pressure 121/59 L 116/58 L 119/57 L Pulse Oximetry 95 91 L 91 L 01/13/18 08:00 01/13/18 09:00 01/13/18 10:00 Temperature 98.7 F Pulse Rate 80 86 91 H Respiratory Rate 17 26 H 34 H Blood Pressure 117/56 L 113/56 L 133/60 Pulse Oximetry 92 L 95 88 L 01/13/18 11:00 01/13/18 12:00 01/13/18 12:54 Temperature 98.0 F Pulse Rate 93 H 93 H Respiratory Rate 22 39 H 38 H Blood Pressure 136/62 149/67 H Pulse Oximetry 89 L 90 L 01/13/18 13:00 01/13/18 16:00 01/13/18 16:14 Temperature Pulse Rate 93 H 90 Respiratory Rate 34 H 34 H 33 H Blood Pressure 149/66 H Pulse Oximetry 89 L Intake & Output 01/12/18 01/13/18 01/13/18 18:59 06:59 18:59 Intake Total 1338 / 1338 636 / 636 150 / 150 Output Total 1200 / 1200 600 / 600 Balance 138 / 138 36 / 36 150 / 150 Weight 69.3 kg Intake: IV 200 / 200 100 / 100 150 / 150 Flexbumin 25% Inj 50 ML @ 60 50 / 50 mls/hr IV.SIG Q50M [facility] Rx#: [id number] Flexbumin 25% Inj 100 ML @ 60 100 / 100 mls/hr IV.SIG ONCE ONE Rx#: [id number] Zosyn 3.375 GM Premix 50 ML @ 100 / 100 100 / 100 100 / 100 100 mls/hr IV.SIG Q6H [facility] Rx#: [id number] Tube Feeding 958 / 958 506 / 506 Water Bolus Amount 180 / 180 30 / 30 Output: Urine 1200 / 1200 600 / 600 Other: Date of Last Bowel Movement 01/12/18 01/13/18 01/13/18 # Incontinent Bowel Movements 7 2 Lab - Hematology Results 01/12/18 01/12/18 01/13/18 05:13 06:00 07:16 CBC w Diff Cancelled WBC 5.3 Cancelled 5.0 Corrected WBC Cancelled RBC 2.62 L Cancelled 2.69 L Hgb 8.0 L Cancelled 8.0 L Hct 23.7 L Cancelled 24.9 L MCV 90.5 Cancelled 92.5 MCH 30.4 Cancelled 29.6 MCHC 33.6 Cancelled 32.0 RDW 15.8 Cancelled 16.6 Plt Count 73 L Cancelled 80 L MPV 8.8 Cancelled 9.3 Prelim Diff (Auto) Slide review pending Cancelled Slide review pending Immature Gran % (Auto) Cancelled Neut % (Auto) 87.0 H Cancelled 80.4 H Lymph % (Auto) 7.5 L Cancelled 12.4 Traill % (Auto) 4.8 Cancelled 5.1 Eos % (Auto) 0.6 Cancelled 1.7 Baso % (Auto) 0.1 Cancelled 0.4 Immature Gran # (Auto) Cancelled Neut # (Auto) 4.6 Cancelled 4.0 Lymph # (Auto) 0.4 L Cancelled 0.6 L Traill # (Auto) 0.3 Cancelled 0.3 Eos # (Auto) 0.0 Cancelled 0.1 Baso # (Auto) 0.0 Cancelled 0.0 WBC Differential . Cancelled Manual diff final Diff Scan Auto diff confirmed Cancelled Seg Neuts % (Manual) Cancelled 76 H Band Neuts % (Manual) Cancelled Lymphocytes % (Manual) Cancelled 17 Atypical Lymphs % (Man) Cancelled Monocytes % (Manual) Cancelled 4 Eosinophils % (Manual) Cancelled Basophils % (Manual) Cancelled Metamyelocytes % (Man) Cancelled 2 H Myelocytes % (Man) Cancelled 1 H Promyelocytes % (Man) Cancelled Blast Cells % (Manual) Cancelled Plasma Cell % (Manual) Cancelled Other Cells % Cancelled Abs Neuts (Manual) Cancelled 4.0 Nucleated RBCs/100 WBC Cancelled Differential Comment . Cancelled . Hypersegmented Neuts Cancelled Smudge Cells Cancelled Toxic Granulation Cancelled Toxic Vacuolation Cancelled Dohle Bodies Cancelled Platelet Estimate Cancelled Low L Platelet Morphology Cancelled Normal RBC Morphology Cancelled Dimorphic RBCs Cancelled Polychromasia Cancelled Basophilic Stippling Cancelled Spherocytes Cancelled Pappenheimer Bodies Cancelled Sickle Cells Cancelled Target Cells Cancelled Tear Drop Cells Cancelled Ovalocytes Cancelled Stomatocytes Cancelled Helmet Cells Cancelled [place] Bodies Cancelled Sarmad Cells Cancelled Acanthocytes (Spur) Cancelled Rouleaux Cancelled Keratocytes Cancelled Hematology Comments Cancelled Lab - Chemistry Results 01/11/18 01/12/18 01/12/18 20:14 00:30 05:12 Sodium 147 H Potassium 4.2 Chloride 108 H Carbon Dioxide 31.4 Anion Gap 8 BUN 49 H Creatinine 1.00 Estimated GFR 72 L POC Glucose 164 H 197 H Random Glucose 187 H Calcium 8.1 L Phosphorus 3.0 Magnesium 2.6 H Total Bilirubin 0.8 AST 57 H ALT 74 Alkaline Phosphatase 245 H Total Protein 5.2 L Albumin 2.1 L 01/12/18 01/12/18 01/12/18 05:12 10:01 16:15 Sodium Potassium Chloride Carbon Dioxide Anion Gap BUN Creatinine Estimated GFR POC Glucose 202 H 185 H 291 H Random Glucose Calcium Phosphorus Magnesium Total Bilirubin AST ALT Alkaline Phosphatase Total Protein Albumin 01/12/18 01/13/18 01/13/18 19:54 00:07 07:15 Sodium Potassium Chloride Carbon Dioxide Anion Gap BUN Creatinine Estimated GFR POC Glucose 206 H 143 H 203 H Random Glucose Calcium Phosphorus Magnesium Total Bilirubin AST ALT Alkaline Phosphatase Total Protein Albumin 01/13/18 01/13/18 01/13/18 07:16 12:31 16:21 Sodium 149 H Potassium 4.2 Chloride 110 H Carbon Dioxide 33.6 H Anion Gap 5 BUN 53 H Creatinine 1.05 Estimated GFR 68 L POC Glucose 220 H 225 H Random Glucose 174 H Calcium 7.8 L Phosphorus Magnesium Total Bilirubin AST ALT Alkaline Phosphatase Total Protein Albumin Imaging: ITS Impressions Abdomen X-Ray 01/01/18 00:00 CONCLUSION: 1. No bowel obstruction, ileus or perforation. 2. Degenerative changes and scoliosis of the lumbar spine. Chest CT 01/07/18 00:00 CONCLUSION: 1. Postsurgical features of suspected previous left-sided lobectomy with volume loss and mediastinal shift to the left. 2. Bulky left-sided pleural plaques with chronic appearing small to moderate sized loculated left pleural effusion. 3. Dense airspace consolidation in the superior segment of the right lower lobe with patchy interstitial and groundglass opacities throughout the right lower lobe. Differential considerations include pneumonia and aspiration in the appropriate clinical setting. 4. Trace right-sided pleural effusion with fluid extending into the major fissure. 5. Mild coronary artery calcifications. 6. Small amount of ascites in the visualized upper abdomen. Abdomen Ultrasound 01/09/18 00:00 CONCLUSION: 1. Limited examination due to obscuration by bowel gas. 2. Simple left renal cyst. 3. Moderate amount of ascites in the right upper quadrant. Chest X-Ray 01/12/18 07:41 CONCLUSION: 1. Stable ETT and NGT. 2. Slightly improved airspace disease in the right mid to lower lung zones. 3. Persistent moderate loculated left-sided pleural effusion with associated left lung airspace disease and volume loss. Venous Doppler Study 01/13/18 00:00 CONCLUSION: 1. The study is negative for lower extremity deep venous thrombosis. Physical Exam: GENERAL: awake, alert commu nicates. NAD SKIN: Warm and dry. NO rash EYES: Pupils equal and round. No scleral icterus. No injection or drainage. ENT: No nasal bleeding or discharge. Mucous membranes pink and moist. NECK: Trachea midline. CARDIOVASCULAR: Regular rate and rhythm. RESPIRATORY: . few scattered rhonchi to auscultation. Breath sounds diminished bilaterally. GASTROINTESTINAL: Abdomen soft, + tender RLQ w/o guarding, rebound, distended mildly to moderately MUSCULOSKELETAL: Extremities without clubbing, cyanosis, or edema. No obvious deformities. NEUROLOGICAL: awake alert follows commands communicates approprietly PSYCHIATRIC: not agitated Assessment and Plan - Plan COPD exacerbation Multiple pumonary pathologies (COPD, asbestosis) RLL PNA Dense airspace consolidation in the superior segment of the right lower lobe on CT - sputum neg x2 Abx associated diarrhea, C.diff neg 01/12 PLAN: cont zosyn CT A/P bronch if family agreable with routine/AFB, fungal cultures tested repeat C.diff test. case dw: RN, family @ b/s and over the phone bronch dw one of the daughters over the pheno; multiple questions answered beulah Hare
[2018-01-13] MEDS ORDERED: Diatrizoate Meglum/Diatrizoate Sod Liq 9 ML UDC PO ONE (18:00)
[2018-01-13 22:05] LABS: Alpha 1 Antitrypsin 141 mg/dL (100 - 190); Smooth Muscle Total Auto Abs Negative (Negative)
--- NOTE | 2018-01-13 22:12 | CT ---
EXAM DATE: 01/13/2018 9:31 PM EDT AGE/SEX: 82 years / Male INDICATIONS: Right lower quadrant pain. CLINICAL DATA: This is the patient's initial encounter. Patient reports that signs and symptoms have been present for 1 day and indicates a pain score of Nonresponsive. MEDICAL/SURGICAL HISTORY: Chronic obstructive pulmonary disease. Diabetes. Renal calculi. . H ernia repair. Left hip. ORAL CONTRAST: Prescribed oral contrast ingested. RADIATION DOSE: 8.43 CTDI (mGy) COMPARISON: [facility] – [place], [place] CHEST W/O CONTRAST, 01/07/2018. . TECHNIQUE: Multiple contiguous axial images were obtained through the abdomen and pelvis following b olus infusion of 72 ml Omnipaque 350 (iohexol) nonionic water-soluble contrast as a single exam dos e. Prescribed oral contrast ingested. Using automated exposure control and adjustment of the mA and/ or kV according to patient size, radiation dose was kept as low as reasonably achievable to obtain op timal diagnostic quality images. DICOM format image data is available electronically for review and comparison. FINDINGS: There is a chronic loculated left pleural effusion with extensive pleural thickening and calcificatio n, unchanged from January 07. There is patchy airspace consolidation at the right lung base which is also similar to prior exam from January 07. No pericardial effusion. Upper abdomen reveals suspected liver cirrhosis with mild ascites. Spleen mildly prominent in size at 13.8 cm. NG tip is in the stomach. No acute findings in the adrenals or pancreas. Right kidney is unremarkable. 3.6 cm left renal cyst w ith renovascular calcifications. No evidence for obstructive uropathy. No bowel obstruction. No free air. No pelvic masses. Mild pelvic ascites. Previous fixation left prox imal femur. Atherosclerotic aorta without aneurysm. Mildly displaced right ninth rib fracture laterally and subacute sixth and seventh rib fractures ante riorly. CONCLUSION: 1. Patchy airspace disease right lung base and chronic loculated left pleural effusion not significa ntly changed since January 07. 2. Mild ascites with liver cirrhosis. 3. NG tip in stomach. Previous cholecystectomy. No bowel obstruction. 4. Multiple subacute lower right rib fractures. Electronically signed by: Bo Main MD 01/13/2018 10:11 PM EDT
[2018-01-14] MEDS: Oral Hygiene Kit OROPHARYNG SCH ×4 (03:59→23:09)
--- NOTE | 2018-01-14 04:23 | XR ---
EXAM DATE: 01/14/2018 6:00 AM EDT AGE/SEX: 82 years / Male INDICATIONS: Shortness of breath, possible pulmonary disease. CLINICAL DATA: This is the patient's subsequent encounter. Patient reports that signs and symptoms h ave been present for 1 month and indicates a pain score of Nonresponsive. MEDICAL/SURGICAL HISTORY: Chronic obstructive pulmonary disease. Diabetes. Renal calculi. Lob ectomy. Hernia repair. Hip surgery. [place] [facility] [place]. . FINDINGS: The cardiac silhouette is normal in transverse diameter. There is patchy alveolar disease bilaterally compatible with edema or pneumonia. A moderate size left sided effusion is present. CONCLUSION: Diffuse edema versus pneumonia. There has been no significant change when compared to the prior exam. Electronically signed by: Leonel Fuentes MD 01/14/2018 4:22 AM EDT
[2018-01-14 04:57] LABS: Baso % (Auto) 0.2 % (0.0-2.0); Eos # (Auto) 0.1 th/mm3 (0.0-0.4); Eos % (Auto) 1.6 % (0.0-4.0); Hematocrit 23.8 % (39.0-51.0); Hemoglobin 7.8 gm/dL (13.0-17.0); Lymph # (Auto) 0.5 th/mm3 (1.0-4.8); Lymph % (Auto) 10.9 % (9.0-44.0); Mean Corpuscular HGB Conc 32.9 % (32.0-36.0); Mean Corpuscular Hemoglobin 30.2 pg (27.0-34.0); Mean Corpuscular Volume 91.7 fL (80.0-100.0); Mean Platelet Volume 9.2 fL (7.0-11.0); Mono # (Auto) 0.2 th/mm3 (0.0-0.9); Mono % (Auto) 4.6 % (0.0-8.0); Neut # (Auto) 4.1 th/mm3 (1.8-7.7); Neut % (Auto) 82.7 % (16.0-70.0); Platelet Count 81 th/mm3 (150-450); Red Blood Count 2.59 mil/mm3 (4.50-5.90); Red Cell Distribution Width 15.6 % (11.6-17.2)
[2018-01-14 05:18] LABS: Albumin 2.6 g/dL (3.4-5.0); Anion Gap 5 meq/L (5-15); Aspartate Aminotransferase 46 U/L (15-37); Blood Urea Nitrogen 43 mg/dL (7-18); Calcium 7.7 mg/dL (8.5-10.1); Carbon Dioxide 30.7 meq/L (21.0-32.0); Chloride 108 meq/L (98-107); Glomerular Filtration Rate 84 mL/min (>89); Glucose,Random 133 mg/dL (74-106); Magnesium 2.6 mg/dL (1.5-2.5); Potassium 4.2 meq/L (3.5-5.1); Sodium 144 meq/L (136-145)
[2018-01-14 05:21] LABS: Alanine Aminotransferase 57 U/L (12-78); Alkaline Phosphatase 205 U/L (45-117); Total Protein 5.3 g/dL (6.4-8.2)
[2018-01-14] MEDS: Insulin NovoLOG Aspart Correctional Sugar Inj SQ SCH ×5 (05:38→21:16)
[2018-01-14] MEDS: Piperacil/Tazo 3.375 GM Premix 50 ML IV.SIG SCH ×4 (05:39→23:09)
[2018-01-14 08:00] LABS: Eosinophils 3 % (0-4); Lymphocytes 10 % (9-44); Metamyelocytes 1 % (0-1); Myelocytes 3 % (0-0)
[2018-01-14 08:01] LABS: Platelet Morphology Normal (Normal)
[2018-01-14] MEDS: Budesonide-Formoterol 160/4.5 MCG 6 GM Inhaler INH SCH ×2 (08:25→20:25)
[2018-01-14] MEDS: Carboxymethylcellulose 0.5% Opth Drops 15 ML Bottle EACH EYE SCH ×2 (08:25→20:25)
[2018-01-14] MEDS: predniSONE 10 MG Tablet PO SCH ×2 (08:26→20:25)
[2018-01-14] MEDS: rifAXIMin 550 MG Tablet PO SCH ×2 (08:27→20:25)
[2018-01-14] MEDS: Chlorhexidine 0.12% Oral Kit 15 ML UDC OROPHARYNG SCH ×2 (08:29→20:25)
[2018-01-14] MEDS: Bismuth Subsalicylate Susp 240 ML Bottle NG/OG SCH ×3 (08:29→17:22)
[2018-01-14] MEDS: Insulin Detemir Inj 1,000 UNIT/10 ML Vial SQ SCH ×2 (10:42→21:16)
[2018-01-14] MEDS ORDERED: Midazolam Inj 5 MG/ML 1 ML Vial ONE (10:57)
[2018-01-14] MEDS ORDERED: fentaNYL Citrate Inj 100 MCG/2 ML Ampul ONE (10:58)
--- NOTE | 2018-01-14 10:59 | P.PNID ---
Subjective Remarks: remains o n CPAP, 35% cont to have diarrhea tolerates TF @ 45 cc/hr getting ready to have bronch Antibiotics: zosyn Allergies/Adverse Reactions: Allergies No Known Allergies Allergy (Verified 12/19/17 21:39) Objective Vital Signs 01/13/18 11:00 01/13/18 12:00 01/13/18 12:54 Temperature 98.0 F Pulse Rate 93 H 93 H Respiratory Rate 22 39 H 38 H Blood Pressure 136/62 149/67 H Pulse Oximetry 89 L 90 L 01/13/18 13:00 01/13/18 14:00 01/13/18 15:00 Temperature Pulse Rate 93 H 93 H 96 H Respiratory Rate 34 H 37 H 37 H Blood Pressure 149/66 H 148/68 H 137/62 Pulse Oximetry 89 L 90 L 90 L 01/13/18 16:00 01/13/18 16:05 01/13/18 16:14 Temperature 97.9 F Pulse Rate 92 H 90 Respiratory Rate 42 H 31 H 33 H Blood Pressure 140/63 140/63 Pulse Oximetry 92 L 95 01/13/18 17:00 01/13/18 18:00 01/13/18 20:00 Temperature 97.7 F Pulse Rate 89 90 80 Respiratory Rate 27 H 24 26 H Blood Pressure 158/67 H 131/70 128/61 Pulse Oximetry 97 96 99 01/13/18 20:22 01/13/18 21:30 01/13/18 22:00 Temperature Pulse Rate 81 Respiratory Rate 25 H Blood Pressure Pulse Oximetry 100 100 01/13/18 23:10 01/14/18 00:00 01/14/18 02:00 Temperature 97.3 F L Pulse Rate 79 72 85 Respiratory Rate 16 16 Blood Pressure 135/64 Pulse Oximetry 99 96 01/14/18 03:35 01/14/18 04:00 01/14/18 06:00 Temperature 97.8 F Pulse Rate 87 79 72 Respiratory Rate 21 16 Blood Pressure 128/59 L Pulse Oximetry 99 95 01/14/18 07:34 01/14/18 08:00 01/14/18 10:00 Temperature Pulse Rate 79 80 80 Respiratory Rate 16 Blood Pressure Pulse Oximetry 93 L Intake & Output 01/13/18 01/14/18 01/14/18 18:59 06:59 18:59 Intake Total 825 / 825 1023 / 1023 50 / 50 Output Total 400 / 400 Balance 425 / 425 1023 / 1023 50 / 50 Weight 69.3 kg Intake: IV 200 / 200 100 / 100 50 / 50 Flexbumin 25% Inj 50 ML @ 60 100 / 100 mls/hr IV.SIG Q50M [facility] Rx#: [id number] Zosyn 3.375 GM Premix 50 ML @ 100 / 100 100 / 100 50 / 50 100 mls/hr IV.SIG Q6H [facility] Rx#: [id number] Tube Feeding 385 / 385 123 / 123 Water Bolus Amount 240 / 240 800 / 800 Output: Urine Amount (Catheter) 400 / 400 Condom 400 / 400 Other: # Voids 3 Date of Last Bowel Movement 01/13/18 01/13/18 01/13/18 # Incontinent Bowel Movements 8 2 01/14/18 00:45 Stool Stool Occult Blood (LUIS FELIPE) - Final Hemoccult negative Lab - Hematology Results 01/13/18 01/14/18 07:16 04:17 WBC 5.0 5.0 RBC 2.69 L 2.59 L Hgb 8.0 L 7.8 L Hct 24.9 L 23.8 L MCV 92.5 91.7 MCH 29.6 30.2 MCHC 32.0 32.9 RDW 16.6 15.6 Plt Count 80 L 81 L MPV 9.3 9.2 Prelim Diff (Auto) Slide review pending Slide review pending Neut % (Auto) 80.4 H 82.7 H Lymph % (Auto) 12.4 10.9 Roberts % (Auto) 5.1 4.6 Eos % (Auto) 1.7 1.6 Baso % (Auto) 0.4 0.2 Neut # (Auto) 4.0 4.1 Lymph # (Auto) 0.6 L 0.5 L Roberts # (Auto) 0.3 0.2 Eos # (Auto) 0.1 0.1 Baso # (Auto) 0.0 0.0 WBC Differential Manual diff final Manual diff final Seg Neuts % (Manual) 76 H 80 H Band Neuts % (Manual) 3 Lymphocytes % (Manual) 17 10 Monocytes % (Manual) 4 Eosinophils % (Manual) 3 Metamyelocytes % (Man) 2 H 1 Myelocytes % (Man) 1 H 3 H Abs Neuts (Manual) 4.0 4.4 Differential Comment . . Platelet Estimate Low L Low L Platelet Morphology Normal Normal Lab - Chemistry Results 01/12/18 01/12/18 01/12/18 05:13 16:15 19:54 Sodium Potassium Chloride Carbon Dioxide Anion Gap BUN Creatinine Estimated GFR POC Glucose 291 H 206 H Random Glucose Calcium Phosphorus Magnesium Total Bilirubin AST ALT Alkaline Phosphatase Total Protein Albumin [id number]-[id number] 141 CA 19-9 Antigen 01/13/18 01/13/18 01/13/18 00:07 07:15 07:16 Sodium 149 H Potassium 4.2 Chloride 110 H Carbon Dioxide 33.6 H Anion Gap 5 BUN 53 H Creatinine 1.05 Estimated GFR 68 L POC Glucose 143 H 203 H Random Glucose 174 H Calcium 7.8 L Phosphorus Magnesium Total Bilirubin AST ALT Alkaline Phosphatase Total Protein Albumin [id number]-2-Fkvuqfbrtrf CA 19-9 Antigen 01/13/18 01/13/18 01/13/18 12:31 16:21 20:35 Sodium Potassium Chloride Carbon Dioxide Anion Gap BUN Creatinine Estimated GFR POC Glucose 220 H 225 H 100 Random Glucose Calcium Phosphorus Magnesium Total Bilirubin AST ALT Alkaline Phosphatase Total Protein Albumin Dpukv-2-Gpyjgfeczmy CA 19-9 Antigen 01/13/18 01/14/18 01/14/18 23:43 04:17 04:17 Sodium 144 Potassium 4.2 Chloride 108 H Carbon Dioxide 30.7 Anion Gap 5 BUN 43 H Creatinine 0.87 Estimated GFR 84 L POC Glucose 97 Random Glucose 133 H Calcium 7.7 L Phosphorus 3.0 Magnesium 2.6 H Total Bilirubin 1.1 H AST 46 H ALT 57 Alkaline Phosphatase 205 H Total Protein 5.3 L Albumin 2.6 L [id number]-8-Kkurrpnoyfd CA 19-9 Antigen 38.0 H 01/14/18 08:19 Sodium Potassium Chloride Carbon Dioxide Anion Gap BUN Creatinine Estimated GFR POC Glucose 142 H Random Glucose Calcium Phosphorus Magnesium Total Bilirubin AST ALT Alkaline Phosphatase Total Protein Albumin Piafm-5-Yohzavzarhy CA 19-9 Antigen Imaging: ITS Impressions Abdomen X-Ray 01/01/18 00:00 CONCLUSION: 1. No bowel obstruction, ileus or perforation. 2. Degenerative changes and scoliosis of the lumbar spine. Chest CT 01/07/18 00:00 CONCLUSION: 1. Postsurgical features of suspected previous left-sided lobectomy with volume loss and mediastinal shift to the left. 2. Bulky left-sided pleural plaques with chronic appearing small to moderate sized loculated left pleural effusion. 3. Dense airspace consolidation in the superior segment of the right lower lobe with patchy interstitial and groundglass opacities throughout the right lower lobe. Differential considerations include pneumonia and aspiration in the appropriate clinical setting. 4. Trace right-sided pleural effusion with fluid extending into the major fissure. 5. Mild coronary artery calcifications. 6. Small amount of ascites in the visualized upper abdomen. Abdomen Ultrasound 01/09/18 00:00 CONCLUSION: 1. Limited examination due to obscuration by bowel gas. 2. Simple left renal cyst. 3. Moderate amount of ascites in the right upper quadrant. Abdomen/Pelvis CT 01/13/18 00:00 CONCLUSION: 1. Patchy airspace disease right lung base and chronic loculated left pleural effusion not significantly changed since January 07. 2. Mild ascites with liver cirrhosis. 3. NG tip in stomach. Previous cholecystectomy. No bowel obstruction. 4. Multiple subacute lower right rib fractures. Venous Doppler Study 01/13/18 00:00 CONCLUSION: 1. The study is negative for lower extremity deep venous thrombosis. Chest X-Ray 01/14/18 06:00 CONCLUSION: Diffuse edema versus pneumonia. There has been no significant change when compared to the prior exam. Physical Exam: GENERAL: awake, alert communicates. NAD SKIN: Warm and dry. NO rash EYES: Pupils equal and round. No scleral icterus. No injection or drainage. ENT: No nasal bleeding or discharge. Mucous membranes pink and moist. NECK: Trachea midline. CARDIOVASCULAR: Regular rate and rhythm. RESPIRATORY: . few scattered rhonchi to auscultation. Breath sounds diminished bilaterally. GASTROINTESTINAL: Abdomen soft, not tender, not distended MUSCULOSKELETAL: Extremities without clubbing, cyanosis, or edema. No obvious deformities. NEUROLOGICAL: awake alert follows commands communicates approprietly PSYCHIATRIC: not agitated Assessment and Plan - Plan COPD exacerbation Multiple pumonary pathologies (COPD, asbestosis) RLL PNA Dense airspace consolidation in the superior segment of the right lower lobe on CT - sputum neg x2 Abx associated diarrhea, C.diff neg 2/2, CT neg for colitis PLAN: cont zosyn will follow bronch results case dw: RN, family @ b/s beulah Lazcano
--- NOTE | 2018-01-14 11:35 | P.PN ---
Subjective Interval history: He is vent dependant and on FIo2 35 %. Will have bronchoscopy. Physical Exam Vital signs: Vital Signs 01/13/18 12:00 01/13/18 12:54 01/13/18 13:00 Temperature 98.0 F Pulse Rate 93 H 93 H Respiratory Rate 39 H 38 H 34 H Blood Pressure 149/67 H 149/66 H Pulse Oximetry 90 L 89 L 01/13/18 14:00 01/13/18 15:00 01/13/18 16:00 Temperature 97.9 F Pulse Rate 93 H 96 H 92 H Respiratory Rate 37 H 37 H 42 H Blood Pressure 148/68 H 137/62 140/63 Pulse Oximetry 90 L 90 L 92 L 01/13/18 16:05 01/13/18 16:14 01/13/18 17:00 Temperature Pulse Rate 90 89 Respiratory Rate 31 H 33 H 27 H Blood Pressure 140/63 158/67 H Pulse Oximetry 95 97 01/13/18 18:00 01/13/18 20:00 01/13/18 20:22 Temperature 97.7 F Pulse Rate 90 80 Respiratory Rate 24 26 H 25 H Blood Pressure 131/70 128/61 Pulse Oximetry 96 99 100 01/13/18 21:30 01/13/18 22:00 01/13/18 23:10 Temperature Pulse Rate 81 79 Respiratory Rate 16 Blood Pressure Pulse Oximetry 100 99 01/14/18 00:00 01/14/18 02:00 01/14/18 03:35 Temperature 97.3 F L Pulse Rate 72 85 87 Respiratory Rate 16 21 Blood Pressure 135/64 Pulse Oximetry 96 99 01/14/18 04:00 01/14/18 06:00 01/14/18 07:34 Temperature 97.8 F Pulse Rate 79 72 79 Respiratory Rate 16 16 Blood Pressure 128/59 L Pulse Oximetry 95 93 L 01/14/18 08:00 01/14/18 10:00 01/14/18 11:25 Temperature Pulse Rate 80 80 Respiratory Rate 20 Blood Pressure Pulse Oximetry Intake & Output 01/13/18 01/14/18 01/14/18 18:59 06:59 18:59 Intake Total 825 / 825 1023 / 1023 50 / 50 Output Total 400 / 400 Balance 425 / 425 1023 / 1023 50 / 50 Weight 69.3 kg Intake: IV 200 / 200 100 / 100 50 / 50 Flexbumin 25% Inj 50 ML @ 60 100 / 100 mls/hr IV.SIG Q50M NOAH Rx#: [id number] Zosyn 3.375 GM Premix 50 ML @ 100 / 100 100 / 100 50 / 50 100 mls/hr IV.SIG Q6H NOAH Rx#: [id number] Tube Feeding 385 / 385 123 / 123 Water Bolus Amount 240 / 240 800 / 800 Output: Urine Amount (Catheter) 400 / 400 Condom 400 / 400 Other: # Voids 3 Date of Last Bowel Movement 01/13/18 01/13/18 01/13/18 # Incontinent Bowel Movements 8 2 Narrative: General:Elderly W/m , Awake and in no distress. HEENT:PERRL. Throat secretions .ET tube is in. Cardiovascular:Regular Rhythm, S1 S2 ,no murmur Respiratory : Occ Basal crackles and bilateral wheezes and decreased breath sounds at bilateral bases. Abdomen: soft, nontender, positive bowel sounds. No Mass. Extremities: 1 + pitting edema bilateral lower extremities. Neuro:Alert and moves extremities. No Focal deficits. - Urinary Catheter Management Straight Cath placed during this visit: yes, but has since been removed by the nurse Reason for continuing: Not indwelling catheter Insertion date: 12/23/17 Insertion time: 01:00 Removal date: 12/22/17 Removal time: 01:00 Condom Cath placed during this visit: no Results - Labs CBC & Chem 7: 01/14/18 04:17 01/14/18 04:17 Laboratory Results - last 24 hr 01/12/18 01/12/18 01/13/18 05:12 05:13 07:16 WBC 5.0 RBC 2.69 L Hgb 8.0 L Hct 24.9 L MCV 92.5 MCH 29.6 MCHC 32.0 RDW 16.6 Plt Count 80 L MPV 9.3 Prelim Diff (Auto) Slide review pending Neut % (Auto) 80.4 H Lymph % (Auto) 12.4 [place] % (Auto) 5.1 Eos % (Auto) 1.7 Baso % (Auto) 0.4 Neut # (Auto) 4.0 Lymph # (Auto) 0.6 L [place] # (Auto) 0.3 Eos # (Auto) 0.1 Baso # (Auto) 0.0 WBC Differential Manual diff final Seg Neuts % (Manual) 76 H Band Neuts % (Manual) Lymphocytes % (Manual) 17 Monocytes % (Manual) 4 Eosinophils % (Manual) Metamyelocytes % (Man) 2 H Myelocytes % (Man) 1 H Abs Neuts (Manual) 4.0 Differential Comment . Platelet Estimate Low L Platelet Morphology Normal Sodium Potassium Chloride Carbon Dioxide Anion Gap BUN Creatinine Estimated GFR POC Glucose Random Glucose Calcium Phosphorus Magnesium Total Bilirubin AST ALT Alkaline Phosphatase Total Protein Albumin Wmfxh-9-Mvfiyiqaddt 141 CA 19-9 Antigen Stl C.difficile DNA Amp St C. diff Tox Epid 027 RISA Screen Neg Anti-Smooth Muscle Ab Negative 01/13/18 01/13/18 01/13/18 12:31 16:21 20:35 WBC RBC Hgb Hct MCV MCH MCHC RDW Plt Count MPV Prelim Diff (Auto) Neut % (Auto) Lymph % (Auto) [place] % (Auto) Eos % (Auto) Baso % (Auto) Neut # (Auto) Lymph # (Auto) [place] # (Auto) Eos # (Auto) Baso # (Auto) WBC Differential Seg Neuts % (Manual) Band Neuts % (Manual) Lymphocytes % (Manual) Monocytes % (Manual) Eosinophils % (Manual) Metamyelocytes % (Man) Myelocytes % (Man) Abs Neuts (Manual) Differential Comment Platelet Estimate Platelet Morphology Sodium Potassium Chloride Carbon Dioxide Anion Gap BUN Creatinine Estimated GFR POC Glucose 220 H 225 H 100 Random Glucose Calcium Phosphorus Magnesium Total Bilirubin AST ALT Alkaline Phosphatase Total Protein Albumin Cthih-5-Wsxnbzegleq CA 19-9 Antigen Stl C.difficile DNA Amp St C. diff Tox Epid 027 RISA Screen Anti-Smooth Muscle Ab 01/13/18 01/14/18 01/14/18 23:43 00:45 04:17 WBC RBC Hgb Hct MCV MCH MCHC RDW Plt Count MPV Prelim Diff (Auto) Neut % (Auto) Lymph % (Auto) [place] % (Auto) Eos % (Auto) Baso % (Auto) Neut # (Auto) Lymph # (Auto) [place] # (Auto) Eos # (Auto) Baso # (Auto) WBC Differential Seg Neuts % (Manual) Band Neuts % (Manual) Lymphocytes % (Manual) Monocytes % (Manual) Eosinophils % (Manual) Metamyelocytes % (Man) Myelocytes % (Man) Abs Neuts (Manual) Differential Comment Platelet Estimate Platelet Morphology Sodium Potassium Chloride Carbon Dioxide Anion Gap BUN Creatinine Estimated GFR POC Glucose 97 Random Glucose Calcium Phosphorus Magnesium Total Bilirubin AST ALT Alkaline Phosphatase Total Protein Albumin Aiple-0-Gagppspohmd CA 19-9 Antigen 38.0 H Stl C.difficile DNA Amp Negative St C. diff Tox Epid 027 Negative RISA Screen Anti-Smooth Muscle Ab 01/14/18 01/14/18 01/14/18 04:17 04:17 08:19 WBC 5.0 RBC 2.59 L Hgb 7.8 L Hct 23.8 L MCV 91.7 MCH 30.2 MCHC 32.9 RDW 15.6 Plt Count 81 L MPV 9.2 Prelim Diff (Auto) Slide review pending Neut % (Auto) 82.7 H Lymph % (Auto) 10.9 [place] % (Auto) 4.6 Eos % (Auto) 1.6 Baso % (Auto) 0.2 Neut # (Auto) 4.1 Lymph # (Auto) 0.5 L [place] # (Auto) 0.2 Eos # (Auto) 0.1 Baso # (Auto) 0.0 WBC Differential Manual diff final Seg Neuts % (Manual) 80 H Band Neuts % (Manual) 3 Lymphocytes % (Manual) 10 Monocytes % (Manual) Eosinophils % (Manual) 3 Metamyelocytes % (Man) 1 Myelocytes % (Man) 3 H Abs Neuts (Manual) 4.4 Differential Comment . Platelet Estimate Low L Platelet Morphology Normal Sodium 144 Potassium 4.2 Chloride 108 H Carbon Dioxide 30.7 Anion Gap 5 BUN 43 H Creatinine 0.87 Estimated GFR 84 L POC Glucose 142 H Random Glucose 133 H Calcium 7.7 L Phosphorus 3.0 Magnesium 2.6 H Total Bilirubin 1.1 H AST 46 H ALT 57 Alkaline Phosphatase 205 H Total Protein 5.3 L Albumin 2.6 L Dauqt-4-Qqirolahpqh CA 19-9 Antigen Stl C.difficile DNA Amp St C. diff Tox Epid 027 RISA Screen Anti-Smooth Muscle Ab Microbiology 01/14/18 00:45 Stool Stool Occult Blood (LUIS FELIPE) - Final Hemoccult negative - Imaging Impressions Abdomen/Pelvis CT 01/13/18 00:00 CONCLUSION: 1. Patchy airspace disease right lung base and chronic loculated left pleural effusion not significantly changed since January 07. 2. Mild ascites with liver cirrhosis. 3. NG tip in stomach. Previous cholecystectomy. No bowel obstruction. 4. Multiple subacute lower right rib fractures. Venous Doppler Study 01/13/18 00:00 CONCLUSION: 1. The study is negative for lower extremity deep venous thrombosis. Chest X-Ray 01/14/18 06:00 CONCLUSION: Diffuse edema versus pneumonia. There has been no significant change when compared to the prior exam. Assessment and Plan - Assessment (1) Respiratory failure requiring intubation Code(s): J96.90 - Respiratory failure, unspecified, unspecified whether with hypoxia or hypercapnia Status: Acute (2) Pneumonia Code(s): J18.9 - Pneumonia, unspecified organism Status: Acute (3) CHF (congestive heart failure), NYHA class II Code(s): I50.9 - Heart failure, unspecified Status: Acute (4) CHF (congestive heart failure) Code(s): I50.9 - Heart failure, unspecified Status: Acute (5) Respiratory abnormalities Code(s): J98.9 - Respiratory disorder, unspecified Status: Acute (6) Emphysema of lung Code(s): J43.9 - Emphysema, unspecified Status: Acute (7) Borderline diabetes mellitus Code(s): R73.03 - Prediabetes Status: Acute (8) Fracture, intertrochanteric, left femur Code(s): S72.142A - Displaced intertrochanteric fracture of left femur, initial encounter for closed fracture Status: Acute (9) Nutrition, metabolism, and development symptoms Code(s): R63.8 - Other symptoms and signs concerning food and fluid intake Status: Acute - Plan RECOMMENDATIONS: 1. Ventilator support and PSV to 15 CPAP +5, and FIO2 to 35 % 2. Bronchodilators ,DuoNeb q.6 hr. 3. D/W family here. 4. Possible trach if not able to wean off vent this week. 5. Continue with Lasix 40 mg daily. 6. Cont antibiotics per ID. 7.,back to A/C rate 16 and FIO2 100 while doing Bronchoscopy 8. Prednisone 10 mg BID 9. CBC, BMP in am 10. No sedation.
[2018-01-14 11:51] LABS: IgA Serum 279 mg/dL (81-463); Tissue Transglutaminase Ab IgG ND U/mL (())
[2018-01-14] MEDS: Loperamide 2 MG Capsule PO PRN ×2 (12:03→17:22)
--- NOTE | 2018-01-14 12:12 | P.PNCC ---
Subjective Subjective Remarks/Hospital Course: 82-year-old male with past medical history of COPD and CHF presents for an evaluation of shortness of breath and hypoxemia worsening over past few days. The nebulizer treatments helped initially however today there were not helpful. EMS reports on scene the O2 sat was in the 80s. He received high flow oxygen and nebulized albuterol in route here. His blood pressure initially in the emergency department was 200/100 however trended down to about 160/90. BiPAP was started in the emergency department with improvement in his O2 sat that has trended towards the high 90s with 100% FiO2 on BiPAP. Shortly after transfer to ICU the patient continues to to be more hypoxemic and restless requiring endotracheal intubation and mechanical ventilation. 12/20: intubated and sedated. still hypercarbic with dcshq-zg-rmqymzi respiratory acidosis. family unhappy that patient was intubated: they insisted last night on being a Full Code, but apparently the daughter required that she be notified of exactly what SpO2 the patient was at, and it had to reach a certain low level before she would be ok with intubation. Per overnight records , patient presented with severe respiratory distress, and family reports that EMS stated patient "wouldn't make it all the way to [facility]" due to his pulmonary instability. This morning, hypoxia is somewhat improved. remains on broad spectrum antibiotics. I explained to family that this is likely a new pneumonia causing respiratory failure. I also explained that after recent hip fracture and recent prolonged hospitalization, his baseline end-stage lung disease and NYHA Class IV symptoms are likely to worsen, and this may be worsening of his overall end-stage disease processes. Family continues to state that our facility caused his lung failure during the prior hospitalization. They are also concerned about his poor peripheral perfusion and oliguria, which concerns me also: I explained that his heart failure could not tolerate significant amount of iv fluids, and we have already given him 1500mL over the last 12 hours, but they have insisted on additional iv fluids. I explained he had severe sepsis and the mortality associated with this. Daughter continues to remind me that her father "is coming home with her and getting better" as she has stated multiple times in the past. 12/21: no improvements. remains intubated. clinically becoming volume overloaded - will be forced to start diuresis. 12/22: mental status slightly improved. still failing weaning attempts. 12/23: Afebrile. Currently on PSV trial 15/7 at 45%. Discussed with and daughter at bedside. Chest x-ray revealed ET tube at [place]. Retracted 1 cm. Tolerating tube feeds with family requested 40 cc an hour. 12/24: Afebrile. Currently CPAP trial FiO2 at 45%. Tolerating tube feeds if family requested 40 cc an hour. Receiving morphine 1-2 mg every 4 hours as needed pain. 12/25 No events overnight remains intubated off sedation. Tolerated CPAP for several hrs yesterday. Afebrile. 12/26 No events overnight. Patient tolerated CPAP for most of day yesterday. Awake and alert follows commands, on no sedation. 12/27 Patient was extubated yesterday on 4L oxygen. Awake. Afebrile. 12/28 No events overnight. Remains on 4L oxygen. Awake and alert. 12/30: RECONSULT NOTE: reconsulted as rapid response for hypoxia. per the family , patient had desaturation episode to the 60s, placed on NRB. family insisted on transfer back to ICU. when I saw patient on arrival to ICU, patient spo2 99% on NRB. pao2 on NRB was 150. patient is well-known to me with baseline spo2 82- 86% on 5L o2 by NC at home. family states he has another pneumonia. on my review of CXR and lab evidence, unclear if this is new pneumonia vs. old chronic lung disease. patient denies sob or new symptoms. 12/31: no changes. remains on simple mask at 6LPM. not in distress. family does not want to leave ICU and wants to continue ICU care for the remainder of the hospitalization. long discussion about needing to de-escalate level of care prior to hospital discharge. 01/07 Reconsult for Resp. distress. Patient was placed on BIPAP with 60% FIO2. ABG this morning showed some improvements in his resp acidosis with PH:7.34, CO2 72 from 82. CXR from 16/[address] chest today. 01/08 Patient was intubated this morning for worsening resp acidosis. CT chest yesterday showed pneumonia/aspiration. On Diprivan for sedation. Afebrile. 01/09 Patient is intubated and on low dose Diprivan drip. Afebrile. 01/10 Patient remains intubated. Awake, tolerated CPAP for most of day yesterday. Afebrile. 01/11 No events overnight. Awake and alert off sedation, tolerated CPAP all day yesterday. Afebrile. 01/12: Family concern regarding testicular swelling. I went over available laboratories. Will check hepatitis C genotype and PCR viral load today. We will also check C. difficile per family request. Patient tolerated CPAP yesterday for around 10 hours. Has been on CPAP since 8 AM this morning. FiO2 35%. Subjective: 01/13: Afebrile. Remains on CPAP trial 16/08 at 35%. All x-rays pending. Long discussion with family at bedside and via telephone. Plan for bronchoscopy tomorrow if okay with 2 other daughters with pulmonology. 01/14: remains intubated, sedated. plan for bronch today with pulmonary at bedside. failing SBTs. Objective Vital Signs / I&O: Vital Signs 01/13/18 12:54 01/13/18 13:00 01/13/18 14:00 Temperature Pulse Rate 93 H 93 H Respiratory Rate 38 H 34 H 37 H Blood Pressure 149/66 H 148/68 H Pulse Oximetry 89 L 90 L 01/13/18 15:00 01/13/18 16:00 01/13/18 16:05 Temperature 36.6 C Pulse Rate 96 H 92 H 90 Respiratory Rate 37 H 42 H 31 H Blood Pressure 137/62 140/63 140/63 Pulse Oximetry 90 L 92 L 95 01/13/18 16:14 01/13/18 17:00 01/13/18 18:00 Temperature Pulse Rate 89 90 Respiratory Rate 33 H 27 H 24 Blood Pressure 158/67 H 131/70 Pulse Oximetry 97 96 01/13/18 20:00 01/13/18 20:22 01/13/18 21:30 Temperature 36.5 C Pulse Rate 80 Respiratory Rate 26 H 25 H Blood Pressure 128/61 Pulse Oximetry 99 100 100 01/13/18 22:00 01/13/18 23:10 01/14/18 00:00 Temperature 36.3 C L Pulse Rate 81 79 72 Respiratory Rate 16 16 Blood Pressure 135/64 Pulse Oximetry 99 96 01/14/18 02:00 01/14/18 03:35 01/14/18 04:00 Temperature 36.6 C Pulse Rate 85 87 79 Respiratory Rate 21 16 Blood Pressure 128/59 L Pulse Oximetry 99 95 01/14/18 06:00 01/14/18 07:34 01/14/18 08:00 Temperature Pulse Rate 72 79 80 Respiratory Rate 16 Blood Pressure Pulse Oximetry 93 L 01/14/18 10:00 01/14/18 11:25 Temperature Pulse Rate 80 Respiratory Rate 20 Blood Pressure Pulse Oximetry Intake & Output 01/13/18 01/14/18 01/14/18 18:59 06:59 18:59 Intake Total 825 / 825 1023 / 1023 50 / 50 Output Total 400 / 400 Balance 425 / 425 1023 / 1023 50 / 50 Weight 69.3 kg Intake: IV 200 / 200 100 / 100 50 / 50 Flexbumin 25% Inj 50 ML @ 60 100 / 100 mls/hr IV.SIG Q50M NOAH Rx#: [id number] Zosyn 3.375 GM Premix 50 ML @ 100 / 100 100 / 100 50 / 50 100 mls/hr IV.SIG Q6H NOAH Rx#: [id number] Tube Feeding 385 / 385 123 / 123 Water Bolus Amount 240 / 240 800 / 800 Output: Urine Amount (Catheter) 400 / 400 Condom 400 / 400 Other: # Voids 3 Date of Last Bowel Movement 01/13/18 01/13/18 01/13/18 # Incontinent Bowel Movements 8 2 Result Diagrams: 01/14/18 04:17 01/14/18 04:17 Objective Remarks: GENERAL: 82-year-old male lying in bed orotracheally intubate HEENT: Normocephalic. Atraumatic. Pupils equal, round, reactive, conjugate. Mucous membranes are moist NECK: Trachea is midline. No JVD, orally intubated with ETT 7.5cm CHEST: B/l equal air entry, diminished at bases CARDIOVASCULAR: Normal rate, regular rhythm. ABDOMEN: Soft, nontender, nondistended. No guarding. MUSCULOSKELETAL: Pulses 2+. significant evidence of scrotal edema. 1+ peripheral edema. No mottling NEUROLOGICAL: arousable on the ventilator. Moves all 4 extremities spontaneously. Assessment and Plan - Assessment and Plan Plan: Neuro/psych: Acute metabolic encephalopathy- resolved Off sedation. 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 SBT daily. Will likely need trach/PEG tube placement. Patient is at high risk of reintubation if gets extubated as this is his second intubation Continue prednisone 10mg BID Pulmonary is following- Dr. Lazcano CT chest: Postsurgical features of suspected previous left-sided lobectomy with volume loss and mediastinal shift to the left. Bulky left-sided pleural plaques with chronic appearing small to moderate sized loculated left pleural effusion. Dense airspace consolidation in the superior segment of the right lower lobe with patchy interstitial and groundglass opacities throughout the right lower lobe. 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 Normal left ventricular size. Wall thickness is normal. No regional wall motion abnormalities are present. Diffuse calcification of the aortic valve but no significant stenosis. There is mild to moderate tricuspid valve regurgitation. The estimated pulmonary arterial pressure is 76.9 mmHg with severe pulmonary hypertension. Previously on furosemide 40 mg by tube daily As needed labetalol and Nitropaste for hypertension Renal/: History of nephrolithiasis Monitor renal function, I/O's, electrolytes replacement per protocol. FEN/GI: Severe acute protein calorie malnutrition Hep C IgG positive HyperNatremia On tube feeds- Glucerna 1.5 @45ml/hr Lansoprazole for GI prophylaxis Docusate sodium/senna 1 tablet twice daily for bowel regimen GI is following US abdomen: Limited exam due to obscuration by bowel gas.Simple left renal cyst. small ascites in the right upper quadrant. Pending hepatitis C genotype and PCR viral load ID: Healthcare associated pneumonia Severe sepsis- present on admission Normocytic anemia Thrombocytopenia Abx per ID (piperacillin/tazobactam) Monitor for signs of infections ( Fever, WBC) Follow up on sputum 01/08 normal resp vaishnavi Sputum culture 12/20-shea resp vaishnavi Blood cultures 12/19 no growth Urine UA with urine culture 12/20-NGTD Negative Legionella and pneumococcal urinary antigens Endocrine: Hyperglycemia of critical illness -- On medium SSI , continue insulin detemir 7uBID Heme: Normocytic anemia Thrombocytopenia Monitor CBC, Hep PLT ab negative MSK:: History of left IT nailing 11/14 Vitamin D deficiency PT evaluate and treat Prophylaxis: GI Prophylaxis Lansoprazole DVT Prophylaxis -- SCDs - Enoxaparin held for anemia, thrombocytopenia and Hemoccult positive Lines: Peripheral IVs. Family considering PICC line All questions answered and they all voiced understanding of his condition OVERALL IMPRESSION: multiple reintubations. end-stage lung disease. unlikely to survive hospitalization. expressed my concern once again to family, but they are resistant to any discussions that are not fully aggressive. unrealistic expectations of his improvements. will attempt SBT again tomorrow: if he passes SBT, will move forward with extubation, but I have expressed concerns that if he does not do well, he will require tracheostomy for ongoing care.
--- NOTE | 2018-01-14 12:59 | MP ---
cc: Rodney Lazcano MD DATE OF OPERATION: 01/14/2018 PROCEDURE: Fiberoptic bronchoscopy with brushings, washings, and lavage. PREOPERATIVE DIAGNOSIS: Bilateral lower lobe atelectasis and pulmonary infiltrates. POSTOPERATIVE DIAGNOSIS: Bilateral lower lobe atelectasis and pulmonary infiltrates and ventilator-dependent respiratory failure. SURGEON: Rodney Lazcano MD MEDICATIONS: Versed 4 mg IV and fentanyl 100 mg IV and Xylocaine local 2% solution 4 mL. SPECIMENS: The bronchial brushings for cytology and culture and bronchial washings bilateral for cytology and bacterial AFB and fungal cultures. PROCEDURE AND FINDINGS: The patient was already intubated with a 7.5 ET tube and the Olympus IT 180 bronchoscope was used to visualize the bronchi. The scope was advanced via the endotracheal tube into the trachea. The trachea and camilla appeared normal. Scope was then advanced into the right mainstem and right upper lobe segmental bronchi. These bronchi demonstrated mucoid secretions with mild endobronchitis, but no endobronchial lesions were seen. Saline washings were done. The scope was then advanced towards the right middle lobe segmental bronchi. These bronchi demonstrated few mucoid secretions and mild endobronchitis, but no endobronchial lesions were seen. Saline washings were done. Next, the right lower lobe segmental bronchi were visualized, which demonstrated mucoid secretions and mucosal edema with moderate endobronchitis, but no endobronchial mass was seen. Saline washings and lavage were done. The scope was then advanced into the left mainstem and left upper lobe segmental bronchi. Left upper lobe segmental bronchi demonstrated mucoid secretions, moderate endobronchitis, and mucosal ridging with edema. No endobronchial mass was seen. Saline washings and lavage were done and mucoid secretions and mucous plugs were suctioned out. The left lower lobe subsegmental bronchi were narrowed and the scope could not be advanced fully into the subsegments, but mucoid plugs were noted, which were suctioned out. Saline lavage was carried out until clear and there was moderate endobronchitis noted and no endobronchial masses were seen. Saline washings were done. Brushings were done from the left upper lobe for cytology and micro and the procedure was then terminated. The patient tolerated the procedure well. Rodney Lazcano MD VJD/sv , 11:32 AM , 11:40 AM
--- NOTE | 2018-01-14 13:44 | XR ---
EXAM DATE: 01/14/2018 11:24 AM EDT AGE/SEX: 82 years / Male INDICATIONS: R/o pneumothorax CLINICAL DATA: This is the patient's initial encounter. Patient reports that signs and symptoms have been present for 1 month and indicates a pain score of Nonresponsive. MEDICAL/SURGICAL HISTORY: Chronic obstructive pulmonary disease. Congestive heart failure. Di abetes mellitus type II. . lobectomy COMPARISON: [facility] – [place], CHEST 1V SINGLE AP, 01/14/2018. . FINDINGS: Endotracheal tube and nasogastric tube remain in good position. There is persistent bilateral pleural -parenchymal opacity which is grossly unchanged including what appears to be loculated and nonloculat ed effusion on both sides. Visualized cardiac contours are grossly stable. CONCLUSION: No pneumothorax as questioned. Grossly stable chest appearance. Electronically signed by: Arvin Nunn MD 01/14/2018 1:42 PM EDT
[2018-01-14 15:52] LABS: Alk Phos Total Isoenzymes 204 U/L (40-115)
[2018-01-14 17:51] LABS: Ceruloplasmin 28 mg/dL (18-36)
[2018-01-14 23:54] LABS: Alk Phos Bone Isoenzymes 38 % (28-66); Alk Phos Intestine Isoenzymes 0 % (1-24); Alk Phos Liver Isoenzymes 62 % (25-69); Alk Phos MacroHep Isoenzyme ND % (()); Alk Phos Placental Isoenzymes 0 % (0)
[2018-01-15] MEDS: Acetaminophen 325 MG Tablet PO PRN (02:02)
[2018-01-15] MEDS: Piperacil/Tazo 3.375 GM Premix 50 ML IV.SIG SCH ×4 (06:00→23:42)
[2018-01-15] MEDS: Oral Hygiene Kit OROPHARYNG SCH ×4 (06:01→23:42)
[2018-01-15] MEDS: Insulin NovoLOG Aspart Correctional Sugar Inj SQ SCH ×7 (06:47→23:41)
[2018-01-15] MEDS: Chlorhexidine 0.12% Oral Kit 15 ML UDC OROPHARYNG SCH ×2 (07:59→20:48)
[2018-01-15] MEDS: Carboxymethylcellulose 0.5% Opth Drops 15 ML Bottle EACH EYE SCH ×2 (08:20→20:48)
[2018-01-15] MEDS: rifAXIMin 550 MG Tablet PO SCH ×2 (08:20→20:48)
[2018-01-15] MEDS: predniSONE 10 MG Tablet PO SCH ×2 (08:20→20:48)
[2018-01-15] MEDS: Budesonide-Formoterol 160/4.5 MCG 6 GM Inhaler INH SCH ×2 (08:20→20:48)
[2018-01-15] MEDS: Insulin Detemir Inj 1,000 UNIT/10 ML Vial SQ SCH ×2 (08:20→20:48)
[2018-01-15] MEDS: Bismuth Subsalicylate Susp 240 ML Bottle NG/OG SCH ×3 (08:20→18:11)
[2018-01-15 09:07] LABS: Hematocrit 24.9 % (39.0-51.0); Hemoglobin 8.3 gm/dL (13.0-17.0); Mean Corpuscular HGB Conc 33.2 % (32.0-36.0); Mean Corpuscular Hemoglobin 30.6 pg (27.0-34.0); Mean Platelet Volume 9.3 fL (7.0-11.0); Platelet Count 104 th/mm3 (150-450); Red Cell Distribution Width 15.8 % (11.6-17.2); White Blood Count 4.9 th/mm3 (4.0-11.0)
[2018-01-15 09:34] LABS: Calcium 7.9 mg/dL (8.5-10.1); Carbon Dioxide 28.5 meq/L (21.0-32.0); Magnesium 2.4 mg/dL (1.5-2.5)
--- NOTE | 2018-01-15 10:05 | P.PNCC ---
Subjective Subjective Remarks/Hospital Course: 82-year-old male with past medical history of COPD and CHF presents for an evaluation of shortness of breath and hypoxemia worsening over past few days. The nebulizer treatments helped initially however today there were not helpful. EMS reports on scene the O2 sat was in the 80s. He received high flow oxygen and nebulized albuterol in route here. His blood pressure initially in the emergency department was 200/100 however trended down to about 160/90. BiPAP was started in the emergency department with improvement in his O2 sat that has trended towards the high 90s with 100% FiO2 on BiPAP. Shortly after transfer to ICU the patient continues to to be more hypoxemic and restless requiring endotracheal intubation and mechanical ventilation. 12/20: intubated and sedated. still hypercarbic with [id number] respiratory acidosis. family unhappy that patient was intubated: they insisted last night on being a Full Code, but apparently the daughter required that she be notified of exactly what SpO2 the patient was at, and it had to reach a certain low level before she would be ok with intubation. Per overnight records , patient presented with severe respiratory distress, and family reports that EMS stated patient "wouldn't make it all the way to [facility]" due to his pulmonary instability. This morning, hypoxia is somewhat improved. remains on broad spectrum antibiotics. I explained to family that this is likely a new pneumonia causing respiratory failure. I also explained that after recent hip fracture and recent prolonged hospitalization, his baseline end-stage lung disease and NYHA Class IV symptoms are likely to worsen, and this may be worsening of his overall end-stage disease processes. Family continues to state that our facility caused his lung failure during the prior hospitalization. They are also concerned about his poor peripheral perfusion and oliguria, which concerns me also: I explained that his heart failure could not tolerate significant amount of iv fluids, and we have already given him 1500mL over the last 12 hours, but they have insisted on additional iv fluids. I explained he had severe sepsis and the mortality associated with this. Daughter continues to remind me that her father "is coming home with her and getting better" as she has stated multiple times in the past. 12/21: no improvements. remains intubated. clinically becoming volume overloaded - will be forced to start diuresis. 12/22: mental status slightly improved. still failing weaning attempts. 12/23: Afebrile. Currently on PSV trial 15/7 at 45%. Discussed with and daughter at bedside. Chest x-ray revealed ET tube at [place]. Retracted 1 cm. Tolerating tube feeds with family requested 40 cc an hour. 12/24: Afebrile. Currently CPAP trial FiO2 at 45%. Tolerating tube feeds if family requested 40 cc an hour. Receiving morphine 1-2 mg every 4 hours as needed pain. 12/25 No events overnight remains intubated off sedation. Tolerated CPAP for several hrs yesterday. Afebrile. 12/26 No events overnight. Patient tolerated CPAP for most of day yesterday. Awake and alert follows commands, on no sedation. 12/27 Patient was extubated yesterday on 4L oxygen. Awake. Afebrile. 12/28 No events overnight. Remains on 4L oxygen. Awake and alert. 12/30: RECONSULT NOTE: reconsulted as rapid response for hypoxia. per the family , patient had desaturation episode to the 60s, placed on NRB. family insisted on transfer back to ICU. when I saw patient on arrival to ICU, patient spo2 99% on NRB. pao2 on NRB was 150. patient is well-known to me with baseline spo2 82- 86% on 5L o2 by NC at home. family states he has another pneumonia. on my review of CXR and lab evidence, unclear if this is new pneumonia vs. old chronic lung disease. patient denies sob or new symptoms. 12/31: no changes. remains on simple mask at 6LPM. not in distress. family does not want to leave ICU and wants to continue ICU care for the remainder of the hospitalization. long discussion about needing to de-escalate level of care prior to hospital discharge. 01/07 Reconsult for Resp. distress. Patient was placed on BIPAP with 60% FIO2. ABG this morning showed some improvements in his resp acidosis with PH:7.34, CO2 72 from 82. CXR from 16/[address] chest today. 01/08 Patient was intubated this morning for worsening resp acidosis. CT chest yesterday showed pneumonia/aspiration. On Diprivan for sedation. Afebrile. 01/09 Patient is intubated and on low dose Diprivan drip. Afebrile. 01/10 Patient remains intubated. Awake, tolerated CPAP for most of day yesterday. Afebrile. 01/11 No events overnight. Awake and alert off sedation, tolerated CPAP all day yesterday. Afebrile. 01/12: Family concern regarding testicular swelling. I went over available laboratories. Will check hepatitis C genotype and PCR viral load today. We will also check C. difficile per family request. Patient tolerated CPAP yesterday for around 10 hours. Has been on CPAP since 8 AM this morning. FiO2 35%. Subjective: 01/13: Afebrile. Remains on CPAP trial 16/08 at 35%. All x-rays pending. Long discussion with family at bedside and via telephone. Plan for bronchoscopy tomorrow if okay with 2 other daughters with pulmonology. 01/14: remains intubated, sedated. plan for bronch today with pulmonary at bedside. failing SBTs. 01/15: intubated and sedated. will attempt SBT today. discussion yesterday with family: if he passes SBT, will proceed with extubation, but high risk for decompensation and re-intubation. if he gets reintubated again, will need trach/ peg to continue forward and aggressive care. 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 Objective Vital Signs / I&O: Vital Signs 01/14/18 11:25 01/14/18 12:00 01/14/18 14:00 Temperature 36.7 C Pulse Rate 77 75 Respiratory Rate 20 17 Blood Pressure 106/57 L Pulse Oximetry 99 01/14/18 15:29 01/14/18 15:30 01/14/18 16:00 Temperature 36.8 C Pulse Rate 78 83 Respiratory Rate 19 18 15 Blood Pressure 121/57 L Pulse Oximetry 99 96 01/14/18 18:00 01/14/18 19:13 01/14/18 20:00 Temperature 36.4 C L Pulse Rate 82 85 84 Respiratory Rate 23 25 H Blood Pressure 131/61 Pulse Oximetry 99 99 01/14/18 22:00 01/14/18 22:57 01/15/18 00:00 Temperature 36.6 C Pulse Rate 88 86 88 Respiratory Rate 21 27 H Blood Pressure 125/63 Pulse Oximetry 100 98 01/15/18 02:00 01/15/18 03:10 01/15/18 04:00 Temperature 36.9 C Pulse Rate 84 79 77 Respiratory Rate 16 17 Blood Pressure 111/59 L Pulse Oximetry 100 98 01/15/18 06:00 01/15/18 07:00 01/15/18 08:00 Temperature 37.1 C Pulse Rate 79 86 78 Respiratory Rate 33 H 19 Blood Pressure 122/61 Pulse Oximetry 98 Intake & Output 01/14/18 01/15/18 01/15/18 18:59 06:59 18:59 Intake Total 143 / 143 150 / 150 Output Total 350 / 350 250 / 250 Balance -207 / -207 -100 / -100 Weight 69.3 kg Intake: IV 100 / 100 150 / 150 Zosyn 3.375 GM Premix 50 ML @ 100 / 100 150 / 150 100 mls/hr IV.SIG Q6H [facility] Rx#: [id number] Tube Feeding Output: Urine Amount (Catheter) 350 / 350 250 / 250 Condom 350 / 350 250 / 250 Other: Date of Last Bowel Movement 01/14/18 01/14/18 01/14/18 # Incontinent Bowel Movements 0 Result Diagrams: 01/15/18 08:35 01/15/18 08:35 Objective Remarks: GENERAL: 82-year-old male lying in bed orotracheally intubate HEENT: Normocephalic. Atraumatic. Pupils equal, round, reactive, conjugate. Mucous membranes are moist NECK: Trachea is midline. No JVD, orally intubated with ETT 7.5cm CHEST: B/l equal air entry, diminished at bases CARDIOVASCULAR: Normal rate, regular rhythm. ABDOMEN: Soft, nontender, nondistended. No guarding. MUSCULOSKELETAL: Pulses 2+. significant evidence of scrotal edema. 1+ peripheral edema. No mottling NEUROLOGICAL: arousable on the ventilator. Moves all 4 extremities spontaneously. Assessment and Plan - Assessment and Plan Plan: Neuro/psych: Acute metabolic encephalopathy- resolved Off sedation. 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 SBT daily. Will likely need trach/PEG tube placement. Patient is at high risk of reintubation if gets extubated as this is his second intubation Continue prednisone 10mg BID Pulmonary is following- Dr. Lazcano CT chest: Postsurgical features of suspected previous left-sided lobectomy with volume loss and mediastinal shift to the left. Bulky left-sided pleural plaques with chronic appearing small to moderate sized loculated left pleural effusion. Dense airspace consolidation in the superior segment of the right lower lobe with patchy interstitial and groundglass opacities throughout the right lower lobe. Trace right-sided pleural effusion with fluid extending into the major fissure SBT today. will extubate if he meets criteria. otherwise daily SBT. if not able to extubate, would need trach by early next week at the latest. Cardiovascular: Diastolic congestive heart failure secondary to pulmonary hypertension World health organization class III pulmonary hypertension Severe sepsis Mild TR Monitor HR and BP keep MAP>65mmHg Echocardiogram 10/2017 revealed Nl LVSF is normal with an estimated ejection fraction in the range of 60-65%. Normal left ventricular size. Wall thickness is normal. No regional wall motion abnormalities are present. Diffuse calcification of the aortic valve but no significant stenosis. There is mild to moderate tricuspid valve regurgitation. The estimated pulmonary arterial pressure is 76.9 mmHg with severe pulmonary hypertension. Previously on furosemide 40 mg by tube daily As needed labetalol and Nitropaste for hypertension Renal/: History of nephrolithiasis Monitor renal function, I/O's, electrolytes replacement per protocol. FEN/GI: Severe acute protein calorie malnutrition Hep C IgG positive HyperNatremia On tube feeds- Glucerna 1.5 @45ml/hr Lansoprazole for GI prophylaxis Docusate sodium/senna 1 tablet twice daily for bowel regimen GI is following US abdomen: Limited exam due to obscuration by bowel gas.Simple left renal cyst. small ascites in the right upper quadrant. Pending hepatitis C genotype and PCR viral load ID: Healthcare associated pneumonia Severe sepsis- present on admission Normocytic anemia Thrombocytopenia Abx per ID (piperacillin/tazobactam) Monitor for signs of infections ( Fever, WBC) Follow up on sputum 01/08 normal resp vaishnavi Sputum culture 12/20-shea resp vaishnavi Blood cultures 12/19 no growth Urine UA with urine culture 12/20-NGTD Negative Legionella and pneumococcal urinary antigens Endocrine: Hyperglycemia of critical illness -- On medium SSI , continue insulin detemir [id number] Heme: Normocytic anemia Thrombocytopenia Monitor CBC, Hep PLT ab negative MSK:: History of left IT nailing 11/14 Vitamin D deficiency PT evaluate and treat Prophylaxis: GI Prophylaxis Lansoprazole DVT Prophylaxis -- SCDs - Enoxaparin held for anemia, thrombocytopenia and Hemoccult positive Lines: Peripheral IVs. Family considering PICC line All questions answered and they all voiced understanding of his condition OVERALL IMPRESSION: multiple reintubations. end-stage lung disease. unlikely to survive hospitalization. expressed my concern once again to family, but they are resistant to any discussions that are not fully aggressive. unrealistic expectations of his improvements. will attempt SBT again today: if he passes SBT , will move forward with extubation, but I have expressed concerns that if he does not do well, he will require tracheostomy for ongoing care.
--- NOTE | 2018-01-15 12:36 | P.PN ---
Subjective Interval history: Awake and on PSV with FIo2 35%. Bronchoscopy result pending. Tolerates PSV 15. Physical Exam Vital signs: Vital Signs 01/14/18 14:00 01/14/18 15:29 01/14/18 15:30 Temperature Pulse Rate 75 78 Respiratory Rate 19 18 Blood Pressure Pulse Oximetry 99 01/14/18 16:00 01/14/18 18:00 01/14/18 19:13 Temperature 98.2 F Pulse Rate 83 82 85 Respiratory Rate 15 23 Blood Pressure 121/57 L Pulse Oximetry 96 99 01/14/18 20:00 01/14/18 22:00 01/14/18 22:57 Temperature 97.5 F L Pulse Rate 84 88 86 Respiratory Rate 25 H 21 Blood Pressure 131/61 Pulse Oximetry 99 100 01/15/18 00:00 01/15/18 02:00 01/15/18 03:10 Temperature 98 F Pulse Rate 88 84 79 Respiratory Rate 27 H 16 Blood Pressure 125/63 Pulse Oximetry 98 100 01/15/18 04:00 01/15/18 06:00 01/15/18 07:00 Temperature 98.5 F Pulse Rate 77 79 86 Respiratory Rate 17 33 H Blood Pressure 111/59 L Pulse Oximetry 98 01/15/18 08:00 01/15/18 10:00 01/15/18 11:00 Temperature 98.7 F Pulse Rate 78 88 85 Respiratory Rate 19 18 Blood Pressure 122/61 Pulse Oximetry 98 01/15/18 11:04 01/15/18 12:00 Temperature 98.9 F Pulse Rate 92 H Respiratory Rate 33 H 21 Blood Pressure 119/58 L Pulse Oximetry 96 98 Intake & Output 01/14/18 01/15/18 01/15/18 18:59 06:59 18:59 Intake Total 143 / 143 150 / 150 Output Total 350 / 350 250 / 250 Balance -207 / -207 -100 / -100 Weight 69.3 kg Intake: IV 100 / 100 150 / 150 Zosyn 3.375 GM Premix 50 ML @ 100 / 100 150 / 150 100 mls/hr IV.SIG Q6H [facility] Rx#: [id number] Tube Feeding Output: Urine Amount (Catheter) 350 / 350 250 / 250 Condom 350 / 350 250 / 250 Other: Date of Last Bowel Movement 01/14/18 01/14/18 01/14/18 # Incontinent Bowel Movements 0 Narrative: General:Elderly W/m , Awake intubated and in no distress. HEENT:PERRL. Throat secretions .ET tube is in. Cardiovascular:Regular Rhythm, S1 S2 ,no murmur Respiratory : Basal crackles and bilateral wheezes and decreased breath sounds at bilateral bases. Abdomen: soft, nontender, positive bowel sounds. No Mass. Extremities: 1 + pitting edema bilateral lower extremities. Neuro:Alert and moves extremities. No Focal deficits. - Urinary Catheter Management Straight Cath placed during this visit: yes, but has since been removed by the nurse Reason for continuing: Not indwelling catheter Insertion date: 12/23/17 Insertion time: 01:00 Removal date: 12/22/17 Removal time: 01:00 Condom Cath placed during this visit: no Results - Labs CBC & Chem 7: 01/15/18 08:35 01/15/18 08:35 Laboratory Results - last 24 hr 01/12/18 01/14/18 01/14/18 05:13 13:12 20:33 WBC RBC Hgb Hct MCV MCH MCHC RDW Plt Count MPV Sodium Potassium Chloride Carbon Dioxide Anion Gap BUN Creatinine Estimated GFR POC Glucose 158 H 140 H Random Glucose Calcium Phosphorus Magnesium Total Alk Phosphatase 204 H Alk Phos Iso-Intestine 0 L Alk Phos Iso-Intes Intp ND Alk Phos Iso-Bone 38 Alk Phos Iso-Liver 62 Alk Phos Iso-Macro Hepat ND Alk Phos Iso-Placenta 0 Prealbumin Ceruloplasmin 28 Mitochondria M2 IgG Ab Less than 20.0 Endomysial Ab Titer ND Endomysial IgA Ab ND Tiss Transglutamin IgA Less than 1 Celiac Disease Interp 01/14/18 01/15/18 01/15/18 23:55 08:17 08:35 WBC 4.9 RBC 2.70 L Hgb 8.3 L Hct 24.9 L MCV 92.0 MCH 30.6 MCHC 33.2 RDW 15.8 Plt Count 104 L MPV 9.3 Sodium Potassium Chloride Carbon Dioxide Anion Gap BUN Creatinine Estimated GFR POC Glucose 149 H 133 H Random Glucose Calcium Phosphorus Magnesium Total Alk Phosphatase Alk Phos Iso-Intestine Alk Phos Iso-Intes Intp Alk Phos Iso-Bone Alk Phos Iso-Liver Alk Phos Iso-Macro Hepat Alk Phos Iso-Placenta Prealbumin Ceruloplasmin Mitochondria M2 IgG Ab Endomysial Ab Titer Endomysial IgA Ab Tiss Transglutamin IgA Celiac Disease Interp 01/15/18 08:35 WBC RBC Hgb Hct MCV MCH MCHC RDW Plt Count MPV Sodium 143 Potassium 4.0 Chloride 109 H Carbon Dioxide 28.5 Anion Gap 6 BUN 37 H Creatinine 0.88 Estimated GFR 83 L POC Glucose Random Glucose 111 H Calcium 7.9 L Phosphorus 3.0 Magnesium 2.4 Total Alk Phosphatase Alk Phos Iso-Intestine Alk Phos Iso-Intes Intp Alk Phos Iso-Bone Alk Phos Iso-Liver Alk Phos Iso-Macro Hepat Alk Phos Iso-Placenta Prealbumin 14 L Ceruloplasmin Mitochondria M2 IgG Ab Endomysial Ab Titer Endomysial IgA Ab Tiss Transglutamin IgA Celiac Disease Interp Microbiology 01/14/18 11:15 Bronchial Washings - Bronchial Fungal Smear - Final No fungal elements seen 01/14/18 11:15 Bronchial - Bronchial Gram Stain - Final - Imaging Impressions Chest X-Ray 01/14/18 11:24 CONCLUSION: No pneumothorax as questioned. Grossly stable chest appearance. Assessment and Plan - Assessment (1) Respiratory failure requiring intubation Code(s): J96.90 - Respiratory failure, unspecified, unspecified whether with hypoxia or hypercapnia Status: Acute (2) Pneumonia Code(s): J18.9 - Pneumonia, unspecified organism Status: Acute (3) CHF (congestive heart failure), NYHA class II Code(s): I50.9 - Heart failure, unspecified Status: Acute (4) CHF (congestive heart failure) Code(s): I50.9 - Heart failure, unspecified Status: Acute (5) Respiratory abnormalities Code(s): J98.9 - Respiratory disorder, unspecified Status: Acute (6) Emphysema of lung Code(s): J43.9 - Emphysema, unspecified Status: Acute (7) Borderline diabetes mellitus Code(s): R73.03 - Prediabetes Status: Acute (8) Fracture, intertrochanteric, left femur Code(s): S72.142A - Displaced intertrochanteric fracture of left femur, initial encounter for closed fracture Status: Acute (9) Nutrition, metabolism, and development symptoms Code(s): R63.8 - Other symptoms and signs concerning food and fluid intake Status: Acute - Plan RECOMMENDATIONS: 1. Ventilator support and PSV to 12 CPAP +5, and FIO2 to 35 % 2. Bronchodilators ,DuoNeb q.6 hr. 3. D/W family here. 4. Possible Trial of extubation if he is stable with SBT, 5. Continue with Lasix 40 mg daily. 6. Cont antibiotics per ID. 7. A/C rate 10 at HS if not extubated 8. Prednisone 10 mg BID 9. CXR , BMP in am 10.PT and OT Evaluation
[2018-01-15 13:53] LABS: HCV Genotype NOT DETECTED (Not Detecte)
--- NOTE | 2018-01-15 14:25 | P.PNGI ---
Subjective Interval history: Patient continues to be ventilator dependent currently on CPAP status post bronchoscopy 24 hours ago, and daughter in room Current hemoglobin increased to 8.3 from last trend which was 7.8 PT/INR 1.2, prealbumin 14. <Alona Dumont - Last Filed: 01/15/18 14:31> Physical Exam Vital signs: Vital Signs 01/14/18 15:29 01/14/18 15:30 01/14/18 16:00 Temperature 98.2 F Pulse Rate 78 83 Respiratory Rate 19 18 15 Blood Pressure 121/57 L Pulse Oximetry 99 96 01/14/18 18:00 01/14/18 19:13 01/14/18 20:00 Temperature 97.5 F L Pulse Rate 82 85 84 Respiratory Rate 23 25 H Blood Pressure 131/61 Pulse Oximetry 99 99 01/14/18 22:00 01/14/18 22:57 01/15/18 00:00 Temperature 98 F Pulse Rate 88 86 88 Respiratory Rate 21 27 H Blood Pressure 125/63 Pulse Oximetry 100 98 01/15/18 02:00 01/15/18 03:10 01/15/18 04:00 Temperature 98.5 F Pulse Rate 84 79 77 Respiratory Rate 16 17 Blood Pressure 111/59 L Pulse Oximetry 100 98 01/15/18 06:00 01/15/18 07:00 01/15/18 08:00 Temperature 98.7 F Pulse Rate 79 86 78 Respiratory Rate 33 H 19 Blood Pressure 122/61 Pulse Oximetry 98 01/15/18 10:00 01/15/18 11:00 01/15/18 11:04 Temperature Pulse Rate 88 85 Respiratory Rate 18 33 H Blood Pressure Pulse Oximetry 96 01/15/18 12:00 Temperature 98.9 F Pulse Rate 92 H Respiratory Rate 21 Blood Pressure 119/58 L Pulse Oximetry 98 Intake & Output 01/14/18 01/15/18 01/15/18 18:59 06:59 18:59 Intake Total 143 / 143 150 / 150 Output Total 350 / 350 250 / 250 Balance -207 / -207 -100 / -100 Weight 69.3 kg Intake: IV 100 / 100 150 / 150 Zosyn 3.375 GM Premix 50 ML @ 100 / 100 150 / 150 100 mls/hr IV.SIG Q6H [facility] Rx#: [id number] Tube Feeding 43 / 43 Output: Urine Amount (Catheter) 350 / 350 250 / 250 Condom 350 / 350 250 / 250 Other: Date of Last Bowel Movement 01/14/18 01/14/18 01/14/18 # Incontinent Bowel Movements 0 - Constitutional no acute distress, thin, cachectic, chronically ill appearing, somnolent (But does open eyes and is alert at times, speaks Romansh family is his main communicator) - Routine HEENT Exam ENT: Present: mucous membranes moist - Routine Neck Exam Present: supple (ET tube) - Routine Respiratory Exam Present: patient mechanically ventilated, decreased breath sounds (Currently on CPAP rhonchi but no audible wheezing) - Routine Cardiovascular Exam Present: S1, S2 (Distant) - Routine Abdominal Exam Present: normoactive bowel sounds (Soft bowel sounds no obvious tenderness, some mild distention round, positive fluid wave) - Routine Skin Exam Present: dry, pallor, jaundice (Minimal) - Urinary Catheter Management Straight Cath placed during this visit: yes, but has since been removed by the nurse Reason for continuing: Not indwelling catheter Insertion date: 12/23/17 Insertion time: 01:00 Removal date: 12/22/17 Removal time: 01:00 Condom Cath placed during this visit: no <Alona Dumont - Last Filed: 01/15/18 14:31> Vital signs: Vital Signs 01/14/18 20:00 01/14/18 22:00 01/14/18 22:57 Temperature 97.5 F L Pulse Rate 84 88 86 Respiratory Rate 25 H 21 Blood Pressure 131/61 Pulse Oximetry 99 100 01/15/18 00:00 01/15/18 02:00 01/15/18 03:10 Temperature 98 F Pulse Rate 88 84 79 Respiratory Rate 27 H 16 Blood Pressure 125/63 Pulse Oximetry 98 100 01/15/18 04:00 01/15/18 06:00 01/15/18 07:00 Temperature 98.5 F Pulse Rate 77 79 86 Respiratory Rate 17 33 H Blood Pressure 111/59 L Pulse Oximetry 98 01/15/18 08:00 01/15/18 10:00 01/15/18 11:00 Temperature 98.7 F Pulse Rate 78 88 85 Respiratory Rate 19 18 Blood Pressure 122/61 Pulse Oximetry 98 01/15/18 11:04 01/15/18 12:00 01/15/18 14:00 Temperature 98.9 F Pulse Rate 92 H 90 Respiratory Rate 33 H 21 Blood Pressure 119/58 L Pulse Oximetry 96 98 01/15/18 15:00 01/15/18 15:21 01/15/18 16:00 Temperature 98.4 F Pulse Rate 83 82 Respiratory Rate 25 H 25 H 21 Blood Pressure 126/61 Pulse Oximetry 95 97 01/15/18 18:00 01/15/18 19:08 Temperature Pulse Rate 93 H 90 Respiratory Rate 27 H Blood Pressure Pulse Oximetry Intake & Output 01/15/18 01/15/18 01/16/18 06:59 18:59 06:59 Intake Total 150 / 150 406 / 406 Output Total 250 / 250 400 / 400 Balance -100 / -100 6 / Weight 69.3 kg Intake: IV 150 / 150 50 / 50 Zosyn 3.375 GM Premix 50 ML @ 150 / 150 50 / 50 100 mls/hr IV.SIG Q6H [facility] Rx#: [id number] Tube Feeding 356 / 356 Output: Urine Amount (Catheter) 250 / 250 400 / 400 Condom 250 / 250 400 / 400 Other: Date of Last Bowel Movement 01/14/18 01/14/18 # Bowel Movements 2 # Incontinent Bowel Movements 0 - Urinary Catheter Management Straight Cath placed during this visit: no Condom Cath placed during this visit: no <Kelly Aranda - Last Filed: 01/15/18 19:18> Results - Labs CBC & Chem 7: 01/15/18 08:35 01/15/18 08:35 Laboratory Results - last 24 hr 01/12/18 01/13/18 01/14/18 05:13 07:16 20:33 WBC RBC Hgb Hct MCV MCH MCHC RDW Plt Count MPV Sodium Potassium Chloride Carbon Dioxide Anion Gap BUN Creatinine Estimated GFR POC Glucose 140 H Random Glucose Calcium Phosphorus Magnesium Total Alk Phosphatase 204 H Alk Phos Iso-Intestine 0 L Alk Phos Iso-Intes Intp ND Alk Phos Iso-Bone 38 Alk Phos Iso-Liver 62 Alk Phos Iso-Macro Hepat ND Alk Phos Iso-Placenta 0 Prealbumin Ceruloplasmin 28 Mitochondria M2 IgG Ab Less than 20.0 Endomysial Ab Titer ND Endomysial IgA Ab ND Tiss Transglutamin IgA Less than 1 Celiac Disease Interp HCV RNA Genotype Not detected 01/14/18 01/15/18 01/15/18 23:55 08:17 08:35 WBC 4.9 RBC 2.70 L Hgb 8.3 L Hct 24.9 L MCV 92.0 MCH 30.6 MCHC 33.2 RDW 15.8 Plt Count 104 L MPV 9.3 Sodium Potassium Chloride Carbon Dioxide Anion Gap BUN Creatinine Estimated GFR POC Glucose 149 H 133 H Random Glucose Calcium Phosphorus Magnesium Total Alk Phosphatase Alk Phos Iso-Intestine Alk Phos Iso-Intes Intp Alk Phos Iso-Bone Alk Phos Iso-Liver Alk Phos Iso-Macro Hepat Alk Phos Iso-Placenta Prealbumin Ceruloplasmin Mitochondria M2 IgG Ab Endomysial Ab Titer Endomysial IgA Ab Tiss Transglutamin IgA Celiac Disease Interp HCV RNA Genotype 01/15/18 01/15/18 08:35 12:45 WBC RBC Hgb Hct MCV MCH MCHC RDW Plt Count MPV Sodium 143 Potassium 4.0 Chloride 109 H Carbon Dioxide 28.5 Anion Gap 6 BUN 37 H Creatinine 0.88 Estimated GFR 83 L POC Glucose 173 H Random Glucose 111 H Calcium 7.9 L Phosphorus 3.0 Magnesium 2.4 Total Alk Phosphatase Alk Phos Iso-Intestine Alk Phos Iso-Intes Intp Alk Phos Iso-Bone Alk Phos Iso-Liver Alk Phos Iso-Macro Hepat Alk Phos Iso-Placenta Prealbumin 14 L Ceruloplasmin Mitochondria M2 IgG Ab Endomysial Ab Titer Endomysial IgA Ab Tiss Transglutamin IgA Celiac Disease Interp HCV RNA Genotype Microbiology 01/14/18 11:15 Bronchial - Bronchial Gram Stain - Final 01/14/18 11:15 Bronchial - Bronchial Bronchial Culture - Preliminary Immature growth - reincubate 01/14/18 11:15 Bronchial Brushings - Bronchial Bronchial [place] Culture - Preliminary No growth in 24 hours 01/14/18 11:15 Bronchial Washings - Bronchial Fungal Smear - Final No fungal elements seen <Alona Dumont - Last Filed: 01/15/18 14:31> - Labs CBC & Chem 7: 01/15/18 08:35 01/15/18 08:35 Laboratory Results - last 24 hr 01/12/18 01/13/18 01/13/18 05:13 07:16 15:20 WBC RBC Hgb Hct MCV MCH MCHC RDW Plt Count MPV Sodium Potassium Chloride Carbon Dioxide Anion Gap BUN Creatinine Estimated GFR POC Glucose Random Glucose Calcium Phosphorus Magnesium Alk Phos Iso-Intestine 0 L Alk Phos Iso-Intes Intp ND Alk Phos Iso-Bone 38 Alk Phos Iso-Liver 62 Alk Phos Iso-Macro Hepat ND Alk Phos Iso-Placenta 0 Prealbumin Stool [id number]-1-[id number] 16 Mitochondria M2 IgG Ab Less than 20.0 HCV RNA Genotype Not detected HCV RNA (PCR) IUs/ml Less than 15 HCV RNA PCR log IUs/ml Less than 1.18 01/14/18 01/14/18 01/15/18 20:33 23:55 08:17 WBC RBC Hgb Hct MCV MCH MCHC RDW Plt Count MPV Sodium Potassium Chloride Carbon Dioxide Anion Gap BUN Creatinine Estimated GFR POC Glucose 140 H 149 H 133 H Random Glucose Calcium Phosphorus Magnesium Alk Phos Iso-Intestine Alk Phos Iso-Intes Intp Alk Phos Iso-Bone Alk Phos Iso-Liver Alk Phos Iso-Macro Hepat Alk Phos Iso-Placenta Prealbumin Stool d-[id number] Mitochondria M2 IgG Ab HCV RNA Genotype HCV RNA (PCR) IUs/ml HCV RNA PCR log IUs/ml 01/15/18 01/15/18 01/15/18 08:35 08:35 12:45 WBC 4.9 RBC 2.70 L Hgb 8.3 L Hct 24.9 L MCV 92.0 MCH 30.6 MCHC 33.2 RDW 15.8 Plt Count 104 L MPV 9.3 Sodium 143 Potassium 4.0 Chloride 109 H Carbon Dioxide 28.5 Anion Gap 6 BUN 37 H Creatinine 0.88 Estimated GFR 83 L POC Glucose 173 H Random Glucose 111 H Calcium 7.9 L Phosphorus 3.0 Magnesium 2.4 Alk Phos Iso-Intestine Alk Phos Iso-Intes Intp Alk Phos Iso-Bone Alk Phos Iso-Liver Alk Phos Iso-Macro Hepat Alk Phos Iso-Placenta Prealbumin 14 L Stool [id number] Mitochondria M2 IgG Ab HCV RNA Genotype HCV RNA (PCR) IUs/ml HCV RNA PCR log IUs/ml Microbiology 01/14/18 11:15 Bronchial Washings - Bronchial Acid Fast Bacilli Smear - Final No acid fast bacilli seen 01/14/18 11:15 Bronchial - Bronchial Gram Stain - Final 01/14/18 11:15 Bronchial - Bronchial Bronchial Culture - Preliminary Immature growth - reincubate 01/14/18 11:15 Bronchial Brushings - Bronchial Bronchial [place] Culture - Preliminary No growth in 24 hours 01/14/18 11:15 Bronchial Washings - Bronchial Fungal Smear - Final No fungal elements seen - Imaging Impressions Abdomen X-Ray 01/15/18 00:00 CONCLUSION: Enteric tube placement as above. <Kelly Aranda - Last Filed: 01/15/18 19:18> Assessment and Plan - Plan - Anemia- likely multifactorial, no bleeding reported hgb today 7.9 - Elevated ALP/thrombocytopenia - No previous hx of liver dz, used to be drinker in the remote past This could be secondary to cardiac etiology vs liver dz Abdomen Ultrasound 01/09/18 1. Limited examination due to obscuration by bowel gas. 2. Simple left renal cyst. 3. Moderate amount of ascites in the right upper quadrant. - Ascites- No previous hx of liver dz, used to be drinker in the remote past This could be secondary to cardiac etiology vs liver dz He is on Lasix - COPD - Respiratory failure- intubated now - HCAP - congestive heart failure secondary to pulmonary hypertension 01/12/2018 patient continues in the intensive care setting on ventilator management. Does occasionally open eyes to loud voice. No obvious melena stools hematemesis or bright red rectal bleeding noted labs reviewed with current hemoglobin 8, platelet count 73, bilirubin 0.8, AST 57, noted to be hep C positive which could explain this mild elevation and ALT 74, alkaline phosphatase mildly elevated to 245. Patient is being followed per gastroenterology for anemia and positive Hemoccult. Hep C positive Currently no paracentesis done to this point. According to family members no history of GI bleed or rectal bleeding Anemia, hemoglobin remains low which is probably chronic but no obvious bleeding noted at this time. Consider further workup for hep C 01/13/2018, no acute changes noted as far as patient's ventilator management. and daughter present in the room and another daughter on the telephone. Family is requesting update and plan of care from a GI perspective which has been discussed with him several times before. Today discussion was around monitoring for any obvious bleeding, considering paracentesis in the future if warranted, possible PEG tube placement if patient is unable to wean from ventilator. Also discussed positive hep C reactive per labs this admission ( unknown cause). Family states patient had drank in the past but has not had any alcohol in the past 15-20 years and denies any illicit drug history. Explained that there are labs pending, and further liver disease workup would be done on an outpatient basis as well as monitoring labs while in the hospital. Patient also may require EGD once he is more stable and off ventilator. Supportive care given Diarrhea loose stools could be related to tube feed, versus medications. Patient's been placed on Lomotil and C. difficile is negative. Will also consider Xifaxan, RISA negative, 01/15/2018, liver genotype not detected, RNA pending, RISA negative IgG less than 20, AMS a negative IgA tissue transglutaminase less than 1, IgA 279. Family stressed secondary to patient's acute illness as well as possible prognosis which they are not receptive of. PEG tube placement as well as ventilator management and weaning discussed with patient but currently they are refusing any further PEG or trach and are requesting that he is workup not be rushed. Supportive care given to patient and family. Family is aware of hepatitis C , and that the patient continues to be critically ill. Diarrhea stools decreased, could be related to meds versus tube feed versus acute illness. Lomotil effective as well as Pepto-Bismol. Bronchoscopy results pending and patient is being followed per pulmonology, ventilator weaning slow but in process. Recheck Hemoccult stool on 01/14/2018 which is negative Plan: Diet, tube feeds Glucerna as tolerated, attempt to reach goal rate Xifaxin 550mg. BID Prednisone 10 mg twice daily Pepto-Bismol 15 cc 3 times a day Consider liver biopsy when patient is more stable. Genotype nondetected, viral load pending Lomotil as needed Consider paracentesis in the future if needed PPI Consider EGD if needed once patient is stable Supportive care, to patient and family Patient was seen per myself and Dr. Aranda, note was written on his behalf <Alona Dumont - Last Filed: 01/15/18 14:31> - Attending Attestation seen, examined agree with above <Kelly Aranda - Last Filed: 01/15/18 19:18>
--- NOTE | 2018-01-15 16:23 | XR ---
EXAM DATE: 01/15/2018 12:00 AM EDT AGE/SEX: 82 years / Male INDICATIONS: OG tube placement. CLINICAL DATA: This is the patient's initial encounter. Patient reports that signs and symptoms have been present for 1 day and indicates a pain score of 0/10. MEDICAL/SURGICAL HISTORY: Chronic obstructive pulmonary disease. Diabetes. Kidney stones. Lob ectomy. Hernia repair. [place] [facility] [place]/13/[place]. . FINDINGS: OG tube tip projects over the left upper quadrant expected location of the gastric body. The side po rt is at the expected location of the distal esophagus. This should be advanced. There is a left effu renny and right basilar consolidation. Nonobstructive bowel gas pattern. CONCLUSION: Enteric tube placement as above. Electronically signed by: Kamari Jara MD 01/15/2018 4:16 PM EDT
--- NOTE | 2018-01-15 20:07 | P.PNID ---
Subjective Remarks: pt improved after BAL his cultures are NGTD he is on CPAP, breathing improved FiO2 down to 35% afebrile Antibiotics: zosyn Allergies/Adverse Reactions: Allergies No Known Allergies Allergy (Verified 12/19/17 21:39) Objective Vital Signs 01/14/18 22:00 01/14/18 22:57 01/15/18 00:00 Temperature 98 F Pulse Rate 88 86 88 Respiratory Rate 21 27 H Blood Pressure 125/63 Pulse Oximetry 100 98 01/15/18 02:00 01/15/18 03:10 01/15/18 04:00 Temperature 98.5 F Pulse Rate 84 79 77 Respiratory Rate 16 17 Blood Pressure 111/59 L Pulse Oximetry 100 98 01/15/18 06:00 01/15/18 07:00 01/15/18 08:00 Temperature 98.7 F Pulse Rate 79 86 78 Respiratory Rate 33 H 19 Blood Pressure 122/61 Pulse Oximetry 98 01/15/18 10:00 01/15/18 11:00 01/15/18 11:04 Temperature Pulse Rate 88 85 Respiratory Rate 18 33 H Blood Pressure Pulse Oximetry 96 01/15/18 12:00 01/15/18 14:00 01/15/18 15:00 Temperature 98.9 F Pulse Rate 92 H 90 83 Respiratory Rate 21 25 H Blood Pressure 119/58 L Pulse Oximetry 98 01/15/18 15:21 01/15/18 16:00 01/15/18 18:00 Temperature 98.4 F Pulse Rate 82 93 H Respiratory Rate 25 H 21 Blood Pressure 126/61 Pulse Oximetry 95 97 01/15/18 19:08 Temperature Pulse Rate 90 Respiratory Rate 27 H Blood Pressure Pulse Oximetry Intake & Output 01/15/18 01/15/18 01/16/18 06:59 18:59 06:59 Intake Total 150 / 150 406 / 406 Output Total 250 / 250 400 / 400 Balance -100 / -100 6 / 6 Weight 69.3 kg Intake: IV 150 / 150 50 / 50 Zosyn 3.375 GM Premix 50 ML @ 150 / 150 50 / 50 100 mls/hr IV.SIG Q6H [facility] Rx#: [id number] Tube Feeding 356 / 356 Output: Urine Amount (Catheter) 250 / 250 400 / 400 Condom 250 / 250 400 / 400 Other: Date of Last Bowel Movement 01/14/18 01/14/18 # Bowel Movements 2 # Incontinent Bowel Movements 0 01/14/18 11:15 Bronchial Washings - Bronchial Acid Fast Bacilli Smear - Final No acid fast bacilli seen 01/14/18 11:15 Bronchial Washings - Bronchial Mycobacterial Culture - Pending 01/14/18 11:15 Bronchial - Bronchial Gram Stain - Final 01/14/18 11:15 Bronchial - Bronchial Bronchial Culture - Preliminary Immature growth - reincubate 01/14/18 11:15 Bronchial Brushings - Bronchial Bronchial [place] Culture - Preliminary No growth in 24 hours 01/14/18 11:15 Bronchial Washings - Bronchial Fungal Smear - Final No fungal elements seen 01/14/18 11:15 Bronchial Washings - Bronchial Fungal Culture - Pending 01/14/18 00:45 Stool Stool Occult Blood (LUIS FELIPE) - Final Hemoccult negative Lab - Hematology Results 01/14/18 01/15/18 04:17 08:35 WBC 5.0 4.9 RBC 2.59 L 2.70 L Hgb 7.8 L 8.3 L Hct 23.8 L 24.9 L MCV 91.7 92.0 MCH 30.2 30.6 MCHC 32.9 33.2 RDW 15.6 15.8 Plt Count 81 L 104 L MPV 9.2 9.3 Prelim Diff (Auto) Slide review pending Neut % (Auto) 82.7 H Lymph % (Auto) 10.9 Williams % (Auto) 4.6 Eos % (Auto) 1.6 Baso % (Auto) 0.2 Neut # (Auto) 4.1 Lymph # (Auto) 0.5 L Williams # (Auto) 0.2 Eos # (Auto) 0.1 Baso # (Auto) 0.0 WBC Differential Manual diff final Seg Neuts % (Manual) 80 H Band Neuts % (Manual) 3 Lymphocytes % (Manual) 10 Eosinophils % (Manual) 3 Metamyelocytes % (Man) 1 Myelocytes % (Man) 3 H Abs Neuts (Manual) 4.4 Differential Comment . Platelet Estimate Low L Platelet Morphology Normal Lab - Chemistry Results 01/12/18 01/13/18 01/13/18 05:13 20:35 23:43 Sodium Potassium Chloride Carbon Dioxide Anion Gap BUN Creatinine Estimated GFR POC Glucose 100 97 Random Glucose Calcium Phosphorus Magnesium Total Bilirubin AST ALT Alkaline Phosphatase Total Alk Phosphatase 204 H Alk Phos Iso-Intestine 0 L Alk Phos Iso-Intes Intp ND Alk Phos Iso-Bone 38 Alk Phos Iso-Liver 62 Alk Phos Iso-Macro Hepat ND Alk Phos Iso-Placenta 0 Total Protein Albumin Prealbumin [id number] 141 Ceruloplasmin 28 CA 19-9 Antigen 01/14/18 01/14/18 01/14/18 04:17 04:17 08:19 Sodium 144 Potassium 4.2 Chloride 108 H Carbon Dioxide 30.7 Anion Gap 5 BUN 43 H Creatinine 0.87 Estimated GFR 84 L POC Glucose 142 H Random Glucose 133 H Calcium 7.7 L Phosphorus 3.0 Magnesium 2.6 H Total Bilirubin 1.1 H AST 46 H ALT 57 Alkaline Phosphatase 205 H Total Alk Phosphatase Alk Phos Iso-Intestine Alk Phos Iso-Intes Intp Alk Phos Iso-Bone Alk Phos Iso-Liver Alk Phos Iso-Macro Hepat Alk Phos Iso-Placenta Total Protein 5.3 L Albumin 2.6 L Prealbumin [id number] Ceruloplasmin CA 19-9 Antigen 38.0 H 01/14/18 01/14/18 01/14/18 13:12 20:33 23:55 Sodium Potassium Chloride Carbon Dioxide Anion Gap BUN Creatinine Estimated GFR POC Glucose 158 H 140 H 149 H Random Glucose Calcium Phosphorus Magnesium Total Bilirubin AST ALT Alkaline Phosphatase Total Alk Phosphatase Alk Phos Iso-Intestine Alk Phos Iso-Intes Intp Alk Phos Iso-Bone Alk Phos Iso-Liver Alk Phos Iso-Macro Hepat Alk Phos Iso-Placenta Total Protein Albumin Prealbumin [id number] Ceruloplasmin CA 19-9 Antigen 01/15/18 01/15/18 01/15/18 08:17 08:35 12:45 Sodium 143 Potassium 4.0 Chloride 109 H Carbon Dioxide 28.5 Anion Gap 6 BUN 37 H Creatinine 0.88 Estimated GFR 83 L POC Glucose 133 H 173 H Random Glucose 111 H Calcium 7.9 L Phosphorus 3.0 Magnesium 2.4 Total Bilirubin AST ALT Alkaline Phosphatase Total Alk Phosphatase Alk Phos Iso-Intestine Alk Phos Iso-Intes Intp Alk Phos Iso-Bone Alk Phos Iso-Liver Alk Phos Iso-Macro Hepat Alk Phos Iso-Placenta Total Protein Albumin Prealbumin 14 L [id number] Ceruloplasmin CA 19-9 Antigen Imaging: ITS Impressions Chest CT 01/07/18 00:00 CONCLUSION: 1. Postsurgical features of suspected previous left-sided lobectomy with volume loss and mediastinal shift to the left. 2. Bulky left-sided pleural plaques with chronic appearing small to moderate sized loculated left pleural effusion. 3. Dense airspace consolidation in the superior segment of the right lower lobe with patchy interstitial and groundglass opacities throughout the right lower lobe. Differential considerations include pneumonia and aspiration in the appropriate clinical setting. 4. Trace right-sided pleural effusion with fluid extending into the major fissure. 5. Mild coronary artery calcifications. 6. Small amount of ascites in the visualized upper abdomen. Abdomen Ultrasound 01/09/18 00:00 CONCLUSION: 1. Limited examination due to obscuration by bowel gas. 2. Simple left renal cyst. 3. Moderate amount of ascites in the right upper quadrant. Abdomen/Pelvis CT 01/13/18 00:00 CONCLUSION: 1. Patchy airspace disease right lung base and chronic loculated left pleural effusion not significantly changed since January 07. 2. Mild ascites with liver cirrhosis. 3. NG tip in stomach. Previous cholecystectomy. No bowel obstruction. 4. Multiple subacute lower right rib fractures. Venous Doppler Study 01/13/18 00:00 CONCLUSION: 1. The study is negative for lower extremity deep venous thrombosis. Chest X-Ray 01/14/18 11:24 CONCLUSION: No pneumothorax as questioned. Grossly stable chest appearance. Abdomen X-Ray 01/15/18 00:00 CONCLUSION: Enteric tube placement as above. Physical Exam: GENERAL: awake, alert communicates. NAD SKIN: Warm and dry. NO rash EYES: Pupils equal and round. No scleral icterus. No injection or drainage. ENT: No nasal bleeding or discharge. Mucous membranes pink and moist. NECK: Trachea midline. CARDIOVASCULAR: Regular rate and rhythm. RESPIRATORY: . few scattered rhonchi to auscultation. Breath sounds diminished bilaterally. GASTROINTESTINAL: Abdomen soft, not tender, not distended MUSCULOSKELETAL: Extremities without clubbing, cyanosis, or edema. No obvious deformities. NEUROLOGICAL: awake alert follows commands communicates approprietly PSYCHIATRIC: not agitated Assessment and Plan - Plan COPD exacerbation Multiple pumonary pathologies (COPD, asbestosis) RLL PNA Dense airspace consolidation in the superior segment of the right lower lobe on CT - sputum neg x2 Abx associated diarrhea, C.diff neg 2/2, CT neg for colitis PLAN: cont zosyn will follow bronch results will dc abx if cultures remian no growth final case dw: RN, family @ b/s
[2018-01-16] MEDS: Oral Hygiene Kit OROPHARYNG SCH ×4 (03:31→23:45)
[2018-01-16] MEDS: Piperacil/Tazo 3.375 GM Premix 50 ML IV.SIG SCH ×4 (05:14→23:45)
[2018-01-16 06:41] LABS: Mean Corpuscular HGB Conc 33.3 % (32.0-36.0); Mean Corpuscular Hemoglobin 30.4 pg (27.0-34.0); Mean Corpuscular Volume 91.2 fL (80.0-100.0); Mean Platelet Volume 8.5 fL (7.0-11.0); Platelet Count 111 th/mm3 (150-450); Red Blood Count 2.63 mil/mm3 (4.50-5.90); Red Cell Distribution Width 15.6 % (11.6-17.2); White Blood Count 3.8 th/mm3 (4.0-11.0)
[2018-01-16 07:10] LABS: Calcium 7.6 mg/dL (8.5-10.1); Carbon Dioxide 28.7 meq/L (21.0-32.0); Magnesium 2.3 mg/dL (1.5-2.5); Phosphorus 2.8 mg/dL (2.5-4.9); Potassium 4.2 meq/L (3.5-5.1)
[2018-01-16] MEDS: Insulin NovoLOG Aspart Correctional Sugar Inj SQ SCH ×6 (07:53→23:44)
[2018-01-16] MEDS: predniSONE 10 MG Tablet PO SCH ×2 (09:00→20:56)
[2018-01-16] MEDS: Insulin Detemir Inj 1,000 UNIT/10 ML Vial SQ SCH ×2 (09:00→20:56)
[2018-01-16] MEDS: Chlorhexidine 0.12% Oral Kit 15 ML UDC OROPHARYNG SCH ×2 (09:30→20:56)
[2018-01-16] MEDS: Carboxymethylcellulose 0.5% Opth Drops 15 ML Bottle EACH EYE SCH ×2 (10:00→20:56)
[2018-01-16] MEDS: Bismuth Subsalicylate Susp 240 ML Bottle NG/OG SCH ×3 (10:00→17:42)
[2018-01-16] MEDS: Budesonide-Formoterol 160/4.5 MCG 6 GM Inhaler INH SCH ×2 (10:00→20:57)
--- NOTE | 2018-01-16 10:13 | P.PNGI ---
Subjective Interval history: Remains in the intensive care unit, prognosis fair to poor Hepatitis C labs, completed from this past p.m. Randomly opens eyes no acute nausea vomiting or abdominal pain but does have abdominal distention Physical Exam Vital signs: Vital Signs 01/15/18 11:00 01/15/18 11:04 01/15/18 12:00 Temperature 98.9 F Pulse Rate 85 92 H Respiratory Rate 18 33 H 21 Blood Pressure 119/58 L Pulse Oximetry 96 98 01/15/18 14:00 01/15/18 15:00 01/15/18 15:21 Temperature Pulse Rate 90 83 Respiratory Rate 25 H 25 H Blood Pressure Pulse Oximetry 95 01/15/18 16:00 01/15/18 18:00 01/15/18 19:08 Temperature 98.4 F Pulse Rate 82 93 H 90 Respiratory Rate 21 27 H Blood Pressure 126/61 Pulse Oximetry 97 01/15/18 20:00 01/15/18 22:00 01/15/18 23:08 Temperature 98.3 F Pulse Rate 85 94 H 88 Respiratory Rate 19 20 Blood Pressure 114/56 L Pulse Oximetry 92 L 100 01/16/18 00:00 01/16/18 02:00 01/16/18 03:26 Temperature 98.7 F Pulse Rate 92 H 87 Respiratory Rate 32 H 18 Blood Pressure 132/62 Pulse Oximetry 97 95 01/16/18 03:27 01/16/18 04:00 01/16/18 06:00 Temperature 98.5 F Pulse Rate 86 82 85 Respiratory Rate 18 17 Blood Pressure 132/63 Pulse Oximetry 92 L Intake & Output 01/15/18 01/16/18 01/16/18 18:59 06:59 18:59 Intake Total 406 / 406 507 / 507 50 / 50 Output Total 400 / 400 150 / 150 Balance 6 / 6 357 / 357 50 / 50 Weight 69.3 kg Intake: IV 50 / 50 100 / 100 50 / 50 Zosyn 3.375 GM Premix 50 ML @ 50 / 50 100 / 100 50 / 50 100 mls/hr IV.SIG Q6H [facility] Rx#: [id number] Tube Feeding 356 / 356 407 / 407 Output: Urine Amount (Catheter) 400 / 400 150 / 150 Condom 400 / 400 150 / 150 Other: Date of Last Bowel Movement 01/14/18 01/14/18 # Bowel Movements 2 1 - Constitutional moderate distress, chronically ill appearing, disheveled - Routine HEENT Exam ENT: Present: mucous membranes moist - Routine Respiratory Exam Present: patient mechanically ventilated - Routine Cardiovascular Exam Present: S1, S2 - Routine Abdominal Exam Present: normoactive bowel sounds (Soft bowel sounds, round, no obvious abdominal pain), distended (Mild) - Urinary Catheter Management Straight Cath placed during this visit: yes, but has since been removed by the nurse Reason for continuing: Not indwelling catheter Insertion date: 12/23/17 Insertion time: 01:00 Removal date: 12/22/17 Removal time: 01:00 Condom Cath placed during this visit: no Results - Labs CBC & Chem 7: 01/16/18 06:29 01/16/18 06:29 Laboratory Results - last 24 hr 01/13/18 01/13/18 01/15/18 07:16 15:20 08:35 WBC RBC Hgb Hct MCV MCH MCHC RDW Plt Count MPV Sodium Potassium Chloride Carbon Dioxide Anion Gap BUN Creatinine Estimated GFR POC Glucose Random Glucose Calcium Phosphorus Magnesium Prealbumin 14 L Stool a-1-Cqptqgveqrb 16 HCV RNA Genotype Not detected HCV RNA (PCR) IUs/ml Less than 15 HCV RNA PCR log IUs/ml Less than 1.18 01/15/18 01/15/18 01/15/18 12:45 20:37 23:22 WBC RBC Hgb Hct MCV MCH MCHC RDW Plt Count MPV Sodium Potassium Chloride Carbon Dioxide Anion Gap BUN Creatinine Estimated GFR POC Glucose 173 H 167 H 215 H Random Glucose Calcium Phosphorus Magnesium Prealbumin Stool s-8-Ipbdlonijzy HCV RNA Genotype HCV RNA (PCR) IUs/ml HCV RNA PCR log IUs/ml 01/16/18 01/16/18 01/16/18 06:28 06:29 06:29 WBC 3.8 L RBC 2.63 L Hgb 8.0 L Hct 24.0 L MCV 91.2 MCH 30.4 MCHC 33.3 RDW 15.6 Plt Count 111 L MPV 8.5 Sodium 144 Potassium 4.2 Chloride 109 H Carbon Dioxide 28.7 Anion Gap 6 BUN 42 H Creatinine 0.93 Estimated GFR 78 L POC Glucose 238 H Random Glucose 206 H Calcium 7.6 L Phosphorus 2.8 Magnesium 2.3 Prealbumin Stool s-8-Ahpvlcotsbf HCV RNA Genotype HCV RNA (PCR) IUs/ml HCV RNA PCR log IUs/ml Microbiology 01/14/18 11:15 Bronchial Washings - Bronchial Acid Fast Bacilli Smear - Final No acid fast bacilli seen 01/14/18 11:15 Bronchial - Bronchial Gram Stain - Final 01/14/18 11:15 Bronchial - Bronchial Bronchial Culture - Preliminary Immature growth - reincubate 01/14/18 11:15 Bronchial Brushings - Bronchial Bronchial [place] Culture - Preliminary No growth in 24 hours 01/14/18 11:15 Bronchial Washings - Bronchial Fungal Smear - Final No fungal elements seen - Imaging Impressions Abdomen X-Ray 01/15/18 00:00 CONCLUSION: Enteric tube placement as above. Assessment and Plan - Plan - Anemia- likely multifactorial, no bleeding reported hgb today 7.9 - Elevated ALP/thrombocytopenia - No previous hx of liver dz, used to be drinker in the remote past This could be secondary to cardiac etiology vs liver dz Abdomen Ultrasound 01/09/18 1. Limited examination due to obscuration by bowel gas. 2. Simple left renal cyst. 3. Moderate amount of ascites in the right upper quadrant. - Ascites- No previous hx of liver dz, used to be drinker in the remote past This could be secondary to cardiac etiology vs liver dz He is on Lasix - COPD - Respiratory failure- intubated now - HCAP - congestive heart failure secondary to pulmonary hypertension 01/12/2018 patient continues in the intensive care setting on ventilator management. Does occasionally open eyes to loud voice. No obvious melena stools hematemesis or bright red rectal bleeding noted labs reviewed with current hemoglobin 8, platelet count 73, bilirubin 0.8, AST 57, noted to be hep C positive which could explain this mild elevation and ALT 74, alkaline phosphatase mildly elevated to 245. Patient is being followed per gastroenterology for anemia and positive Hemoccult. Hep C positive Currently no paracentesis done to this point. According to family members no history of GI bleed or rectal bleeding Anemia, hemoglobin remains low which is probably chronic but no obvious bleeding noted at this time. Consider further workup for hep C 01/13/2018, no acute changes noted as far as patient's ventilator management. and daughter present in the room and another daughter on the telephone. Family is requesting update and plan of care from a GI perspective which has been discussed with him several times before. Today discussion was around monitoring for any obvious bleeding, considering paracentesis in the future if warranted, possible PEG tube placement if patient is unable to wean from ventilator. Also discussed positive hep C reactive per labs this admission ( unknown cause). Family states patient had drank in the past but has not had any alcohol in the past 15-20 years and denies any illicit drug history. Explained that there are labs pending, and further liver disease workup would be done on an outpatient basis as well as monitoring labs while in the hospital. Patient also may require EGD once he is more stable and off ventilator. Supportive care given Diarrhea loose stools could be related to tube feed, versus medications. Patient's been placed on Lomotil and C. difficile is negative. Will also consider Xifaxan, RISA negative, 01/15/2018, liver genotype not detected, RNA pending, RISA negative IgG less than 20, AMS a negative IgA tissue transglutaminase less than 1, IgA 279. Family stressed secondary to patient's acute illness as well as possible prognosis which they are not receptive of. PEG tube placement as well as ventilator management and weaning discussed with patient but currently they are refusing any further PEG or trach and are requesting that he is workup not be rushed. Supportive care given to patient and family. Family is aware of hepatitis C , and that the patient continues to be critically ill. Diarrhea stools decreased, could be related to meds versus tube feed versus acute illness. Lomotil effective as well as Pepto-Bismol. Bronchoscopy results pending and patient is being followed per pulmonology, ventilator weaning slow but in process. Recheck Hemoccult stool on 01/14/2018 which is negative 01/16/2018 patient continues in the intensive care setting, gastroenterology following for hepatitis C new diagnosis and unknown to family until this hospital stay. Further hepatitis C liver workup noted, HCV RNA genotype not detected, HCV RNA PCR IUs per mL less than 15, HCV RNA PCR log less than 1.18. Lots of discussion and supportive care with family members per Dr Byrd. According to labs no acute hepatitis C at this time but antibodies show history. continue current meds. Consider liver biopsy if patient is more stable in the future if warranted as well as paracentesis to treat symptomatic needs. Gradual improvement with diarrhea and medications. Start Aldactone current Lasix. Consider 40 mg daily since patient has been started on Aldactone Patient remains in serious condition still on mechanical ventilation, has been slow weaning process. May need to consider PEG in the future but currently family refusing. Plan: Diet, tube feeds glucerna Xifaxin 550mg. BID Started Aldactone 100 mg daily Lasix Prednisone 10 mg twice daily Pepto-Bismol 15 cc 3 times a day Lomotil PPI Consider EGD if needed once patient is stable Supportive care, to patient and family Patient was seen per myself and Dr. Byrd, note was written on his behalf
[2018-01-16] MEDS: rifAXIMin 550 MG Tablet PO SCH ×2 (11:08→20:57)
[2018-01-16 11:15] LABS: ABG PCO2 43 mmHg (38-42); ABG PO2 59 mmHG (61-120)
--- NOTE | 2018-01-16 13:23 | P.PNID ---
Subjective Remarks: on vent , back to the rate BAL growing Aspergilla no fever Antibiotics: zosyn Allergies/Adverse Reactions: Allergies No Known Allergies Allergy (Verified 12/19/17 21:39) Objective Vital Signs 01/15/18 14:00 01/15/18 15:00 01/15/18 15:21 Temperature Pulse Rate 90 83 Respiratory Rate 25 H 25 H Blood Pressure Pulse Oximetry 95 01/15/18 16:00 01/15/18 18:00 01/15/18 19:08 Temperature 98.4 F Pulse Rate 82 93 H 90 Respiratory Rate 21 27 H Blood Pressure 126/61 Pulse Oximetry 97 01/15/18 20:00 01/15/18 22:00 01/15/18 23:08 Temperature 98.3 F Pulse Rate 85 94 H 88 Respiratory Rate 19 20 Blood Pressure 114/56 L Pulse Oximetry 92 L 100 01/16/18 00:00 01/16/18 02:00 01/16/18 03:26 Temperature 98.7 F Pulse Rate 92 H 87 Respiratory Rate 32 H 18 Blood Pressure 132/62 Pulse Oximetry 97 95 01/16/18 03:27 01/16/18 04:00 01/16/18 06:00 Temperature 98.5 F Pulse Rate 86 82 85 Respiratory Rate 18 17 Blood Pressure 132/63 Pulse Oximetry 92 L 01/16/18 08:00 01/16/18 10:00 01/16/18 11:54 Temperature Pulse Rate 92 H 94 H Respiratory Rate 20 Blood Pressure Pulse Oximetry 100 01/16/18 11:56 Temperature Pulse Rate 86 Respiratory Rate 17 Blood Pressure Pulse Oximetry Intake & Output 01/15/18 01/16/18 01/16/18 18:59 06:59 18:59 Intake Total 406 / 406 507 / 507 50 / 50 Output Total 400 / 400 150 / 150 Balance 6 / 6 357 / 357 50 / 50 Weight 69.3 kg Intake: IV 50 / 50 100 / 100 50 / 50 Zosyn 3.375 GM Premix 50 ML @ 50 / 50 100 / 100 50 / 50 100 mls/hr IV.SIG Q6H [facility] Rx#: [id number] Tube Feeding 356 / 356 407 / 407 Output: Urine Amount (Catheter) 400 / 400 150 / 150 Condom 400 / 400 150 / 150 Other: Date of Last Bowel Movement 01/14/18 01/14/18 01/14/18 # Bowel Movements 2 1 01/14/18 11:15 Bronchial - Bronchial Gram Stain - Final 01/14/18 11:15 Bronchial - Bronchial Bronchial Culture - Preliminary Aspergillus species 01/14/18 11:15 Bronchial Brushings - Bronchial Bronchial [place] Culture - Preliminary Aspergillus species 01/14/18 11:15 Bronchial Washings - Bronchial Acid Fast Bacilli Smear - Final No acid fast bacilli seen 01/14/18 11:15 Bronchial Washings - Bronchial Mycobacterial Culture - Pending 01/14/18 11:15 Bronchial Washings - Bronchial Fungal Smear - Final No fungal elements seen 01/14/18 11:15 Bronchial Washings - Bronchial Fungal Culture - Pending 01/14/18 00:45 Stool Stool Occult Blood (LUIS [facility]ELIPE) - Final Hemoccult negative Lab - Hematology Results 01/15/18 01/16/18 08:35 06:29 WBC 4.9 3.8 L RBC 2.70 L 2.63 L Hgb 8.3 L 8.0 L Hct 24.9 L 24.0 L MCV 92.0 91.2 MCH 30.6 30.4 MCHC 33.2 33.3 RDW 15.8 15.6 Plt Count 104 L 111 L MPV 9.3 8.5 Lab - Chemistry Results 01/12/18 01/14/18 01/14/18 05:13 13:12 20:33 Sodium Potassium Chloride Carbon Dioxide Anion Gap BUN Creatinine Estimated GFR POC Glucose 158 H 140 H Random Glucose Calcium Phosphorus Magnesium Total Alk Phosphatase 204 H Alk Phos Iso-Intestine 0 L Alk Phos Iso-Intes Intp ND Alk Phos Iso-Bone 38 Alk Phos Iso-Liver 62 Alk Phos Iso-Macro Hepat ND Alk Phos Iso-Placenta 0 Prealbumin Ceruloplasmin 28 01/14/18 01/15/18 01/15/18 23:55 08:17 08:35 Sodium 143 Potassium 4.0 Chloride 109 H Carbon Dioxide 28.5 Anion Gap 6 BUN 37 H Creatinine 0.88 Estimated GFR 83 L POC Glucose 149 H 133 H Random Glucose 111 H Calcium 7.9 L Phosphorus 3.0 Magnesium 2.4 Total Alk Phosphatase Alk Phos Iso-Intestine Alk Phos Iso-Intes Intp Alk Phos Iso-Bone Alk Phos Iso-Liver Alk Phos Iso-Macro Hepat Alk Phos Iso-Placenta Prealbumin 14 L Ceruloplasmin 01/15/18 01/15/18 01/15/18 12:45 20:37 23:22 Sodium Potassium Chloride Carbon Dioxide Anion Gap BUN Creatinine Estimated GFR POC Glucose 173 H 167 H 215 H Random Glucose Calcium Phosphorus Magnesium Total Alk Phosphatase Alk Phos Iso-Intestine Alk Phos Iso-Intes Intp Alk Phos Iso-Bone Alk Phos Iso-Liver Alk Phos Iso-Macro Hepat Alk Phos Iso-Placenta Prealbumin Ceruloplasmin 01/16/18 01/16/18 06:28 06:29 Sodium 144 Potassium 4.2 Chloride 109 H Carbon Dioxide 28.7 Anion Gap 6 BUN 42 H Creatinine 0.93 Estimated GFR 78 L POC Glucose 238 H Random Glucose 206 H Calcium 7.6 L Phosphorus 2.8 Magnesium 2.3 Total Alk Phosphatase Alk Phos Iso-Intestine Alk Phos Iso-Intes Intp Alk Phos Iso-Bone Alk Phos Iso-Liver Alk Phos Iso-Macro Hepat Alk Phos Iso-Placenta Prealbumin Ceruloplasmin Imaging: ITS Impressions Chest CT 01/07/18 00:00 CONCLUSION: 1. Postsurgical features of suspected previous left-sided lobectomy with volume loss and mediastinal shift to the left. 2. Bulky left-sided pleural plaques with chronic appearing small to moderate sized loculated left pleural effusion. 3. Dense airspace consolidation in the superior segment of the right lower lobe with patchy interstitial and groundglass opacities throughout the right lower lobe. Differential considerations include pneumonia and aspiration in the appropriate clinical setting. 4. Trace right-sided pleural effusion with fluid extending into the major fissure. 5. Mild coronary artery calcifications. 6. Small amount of ascites in the visualized upper abdomen. Abdomen Ultrasound 01/09/18 00:00 CONCLUSION: 1. Limited examination due to obscuration by bowel gas. 2. Simple left renal cyst. 3. Moderate amount of ascites in the right upper quadrant. Abdomen/Pelvis CT 01/13/18 00:00 CONCLUSION: 1. Patchy airspace disease right lung base and chronic loculated left pleural effusion not significantly changed since January 07. 2. Mild ascites with liver cirrhosis. 3. NG tip in stomach. Previous cholecystectomy. No bowel obstruction. 4. Multiple subacute lower right rib fractures. Venous Doppler Study 01/13/18 00:00 CONCLUSION: 1. The study is negative for lower extremity deep venous thrombosis. Chest X-Ray 01/14/18 11:24 CONCLUSION: No pneumothorax as questioned. Grossly stable chest appearance. Abdomen X-Ray 01/15/18 00:00 CONCLUSION: Enteric tube placement as above. Physical Exam: GENERAL: awake, alert communicates. NAD SKIN: Warm and dry. NO rash EYES: Pupils equal and round. No scleral icterus. No injection or drainage. ENT: No nasal bleeding or discharge. Mucous membranes pink and moist. NECK: Trachea midline. CARDIOVASCULAR: Regular rate and rhythm. RESPIRATORY: . few scattered rhonchi to auscultation. Breath sounds diminished bilaterally. GASTROINTESTINAL: Abdomen soft, not tender, not distended MUSCULOSKELETAL: Extremities without clubbing, cyanosis, or edema. No obvious deformities. NEUROLOGICAL: awake alert follows commands communicates approprietly PSYCHIATRIC: not agitated Assessment and Plan - Plan COPD exacerbation Multiple pumonary pathologies (COPD, asbestosis) RLL PNA, suspected pulmonary aspergillosis Dense airspace consolidation in the superior segment of the right lower lobe on CT - sputum neg x2 - dw radiologist: no fungus balls, however, does not exclude fungal PNA Abx associated diarrhea, C.diff neg /, CT neg for colitis PLAN: Start Voriconazole. WIkll give IV for now with the plan to transition to oral dc zosyn. Pt wass on zosyn on/off since 12/20 will follow bronch results untill final dw Prasanna Vuong CT image was dw radiologist case dw family @ b/s
--- NOTE | 2018-01-16 14:22 | P.PN ---
Subjective Interval history: alert nad attemps at weaning so far unsycessfull Physical Exam Vital signs: Vital Signs 01/15/18 15:00 01/15/18 15:21 01/15/18 16:00 Temperature 98.4 F Pulse Rate 83 82 Respiratory Rate 25 H 25 H 21 Blood Pressure 126/61 Pulse Oximetry 95 97 01/15/18 18:00 01/15/18 19:08 01/15/18 20:00 Temperature 98.3 F Pulse Rate 93 H 90 85 Respiratory Rate 27 H 19 Blood Pressure 114/56 L Pulse Oximetry 92 L 01/15/18 22:00 01/15/18 23:08 01/16/18 00:00 Temperature 98.7 F Pulse Rate 94 H 88 92 H Respiratory Rate 20 32 H Blood Pressure 132/62 Pulse Oximetry 100 97 01/16/18 02:00 01/16/18 03:26 01/16/18 03:27 Temperature Pulse Rate 87 86 Respiratory Rate 18 18 Blood Pressure Pulse Oximetry 95 01/16/18 04:00 01/16/18 06:00 01/16/18 08:00 Temperature 98.5 F Pulse Rate 82 85 92 H Respiratory Rate 17 Blood Pressure 132/63 Pulse Oximetry 92 L 01/16/18 10:00 01/16/18 11:54 01/16/18 11:56 Temperature Pulse Rate 94 H 86 Respiratory Rate 20 17 Blood Pressure Pulse Oximetry 100 Intake & Output 01/15/18 01/16/18 01/16/18 18:59 06:59 18:59 Intake Total 406 / 406 507 / 507 50 / 50 Output Total 400 / 400 150 / 150 Balance 6 / 6 357 / 357 50 / 50 Weight 69.3 kg Intake: IV 50 / 50 100 / 100 50 / 50 Zosyn 3.375 GM Premix 50 ML @ 50 / 50 100 / 100 50 / 50 100 mls/hr IV.SIG Q6H [facility] Rx#: [id number] Tube Feeding 356 / 356 407 / 407 Output: Urine Amount (Catheter) 400 / 400 150 / 150 Condom 400 / 400 150 / 150 Other: Date of Last Bowel Movement 01/14/18 01/14/18 01/14/18 # Bowel Movements 2 1 Narrative: General:Elderly W/m , Awake intubated and in no distress. HEENT:PERRL. Throat secretions .ET tube is in. Cardiovascular:Regular Rhythm, S1 S2 ,no murmur Respiratory : Basal crackles and bilateral wheezes and decreased breath sounds at bilateral bases. Abdomen: soft, nontender, positive bowel sounds. No Mass. Extremities: 1 + pitting edema bilateral lower extremities. Neuro:Alert and moves extremities. No Focal deficits. - Urinary Catheter Management Straight Cath placed during this visit: yes, but has since been removed by the nurse Reason for continuing: Not indwelling catheter Insertion date: 12/23/17 Insertion time: 01:00 Removal date: 12/22/17 Removal time: 01:00 Condom Cath placed during this visit: no Results - Labs CBC & Chem 7: 01/16/18 06:29 01/16/18 06:29 Laboratory Results - last 24 hr 01/13/18 01/13/18 01/15/18 07:16 15:20 20:37 WBC RBC Hgb Hct MCV MCH MCHC RDW Plt Count MPV Puncture Site Patient Temperature O2 Saturation ABG pH ABG pCO2 ABG pO2 ABG HCO3 ABG O2 Content ABG Base Excess ABG Methemoglobin [place] Test Hemoglobin Carboxyhemoglobin O2 Delivery Device Inspired O2 Critical Value Sodium Potassium Chloride Carbon Dioxide Anion Gap BUN Creatinine Estimated GFR POC Glucose 167 H Random Glucose Calcium Phosphorus Magnesium Stool [id number]-[id number] 16 HCV RNA (PCR) IUs/ml Less than 15 HCV RNA PCR log IUs/ml Less than 1.18 01/15/18 01/16/18 01/16/18 23:22 06:28 06:29 WBC 3.8 L RBC 2.63 L Hgb 8.0 L Hct 24.0 L MCV 91.2 MCH 30.4 MCHC 33.3 RDW 15.6 Plt Count 111 L MPV 8.5 Puncture Site Patient Temperature O2 Saturation ABG pH ABG pCO2 ABG pO2 ABG HCO3 ABG O2 Content ABG Base Excess ABG Methemoglobin [place] Test Hemoglobin Carboxyhemoglobin O2 Delivery Device Inspired O2 Critical Value Sodium Potassium Chloride Carbon Dioxide Anion Gap BUN Creatinine Estimated GFR POC Glucose 215 H 238 H Random Glucose Calcium Phosphorus Magnesium Stool [id number] HCV RNA (PCR) IUs/ml HCV RNA PCR log IUs/ml 01/16/18 01/16/18 01/16/18 06:29 11:00 13:20 WBC RBC Hgb Hct MCV MCH MCHC RDW Plt Count MPV Puncture Site Right radial Patient Temperature 98.6 O2 Saturation 86 L* ABG pH 7.43 H ABG pCO2 43 H ABG pO2 59 L* ABG HCO3 28 H ABG O2 Content 10.8 L ABG Base Excess 4.0 H ABG Methemoglobin 1.3 Krishna Test Present Hemoglobin 8.9 L Carboxyhemoglobin 2.1 O2 Delivery Device Tpiece Inspired O2 35 Critical Value Yes Sodium 144 Potassium 4.2 Chloride 109 H Carbon Dioxide 28.7 Anion Gap 6 BUN 42 H Creatinine 0.93 Estimated GFR 78 L POC Glucose 131 H Random Glucose 206 H Calcium 7.6 L Phosphorus 2.8 Magnesium 2.3 Stool r-[id number] HCV RNA (PCR) IUs/ml HCV RNA PCR log IUs/ml Microbiology 01/14/18 11:15 Bronchial - Bronchial Gram Stain - Final 01/14/18 11:15 Bronchial - Bronchial Bronchial Culture - Preliminary Aspergillus species 01/14/18 11:15 Bronchial Brushings - Bronchial Bronchial [place] Culture - Preliminary Aspergillus species 01/14/18 11:15 Bronchial Washings - Bronchial Acid Fast Bacilli Smear - Final No acid fast bacilli seen - Imaging Impressions Abdomen X-Ray 01/15/18 00:00 CONCLUSION: Enteric tube placement as above. Assessment and Plan - Plan respiratory failure copd plan vent support wean as tolerated bronchodilator therapy antibx per id outlook poor
--- NOTE | 2018-01-16 14:36 | P.PNCC ---
Subjective Subjective Remarks/Hospital Course: 82-year-old male with past medical history of COPD and CHF presents for an evaluation of shortness of breath and hypoxemia worsening over past few days. The nebulizer treatments helped initially however today there were not helpful. EMS reports on scene the O2 sat was in the 80s. He received high flow oxygen and nebulized albuterol in route here. His blood pressure initially in the emergency department was 200/100 however trended down to about 160/90. BiPAP was started in the emergency department with improvement in his O2 sat that has trended towards the high 90s with 100% FiO2 on BiPAP. Shortly after transfer to ICU the patient continues to to be more hypoxemic and restless requiring endotracheal intubation and mechanical ventilation. 12/20: intubated and sedated. still hypercarbic with [id number] respiratory acidosis. family unhappy that patient was intubated: they insisted last night on being a Full Code, but apparently the daughter required that she be notified of exactly what SpO2 the patient was at, and it had to reach a certain low level before she would be ok with intubation. Per overnight records , patient presented with severe respiratory distress, and family reports that EMS stated patient "wouldn't make it all the way to [facility]" due to his pulmonary instability. This morning, hypoxia is somewhat improved. remains on broad spectrum antibiotics. I explained to family that this is likely a new pneumonia causing respiratory failure. I also explained that after recent hip fracture and recent prolonged hospitalization, his baseline end-stage lung disease and NYHA Class IV symptoms are likely to worsen, and this may be worsening of his overall end-stage disease processes. Family continues to state that our facility caused his lung failure during the prior hospitalization. They are also concerned about his poor peripheral perfusion and oliguria, which concerns me also: I explained that his heart failure could not tolerate significant amount of iv fluids, and we have already given him 1500mL over the last 12 hours, but they have insisted on additional iv fluids. I explained he had severe sepsis and the mortality associated with this. Daughter continues to remind me that her father "is coming home with her and getting better" as she has stated multiple times in the past. 12/21: no improvements. remains intubated. clinically becoming volume overloaded - will be forced to start diuresis. 12/22: mental status slightly improved. still failing weaning attempts. 12/23: Afebrile. Currently on PSV trial 15/7 at 45%. Discussed with and daughter at bedside. Chest x-ray revealed ET tube at [place]. Retracted 1 cm. Tolerating tube feeds with family requested 40 cc an hour. 12/24: Afebrile. Currently CPAP trial FiO2 at 45%. Tolerating tube feeds if family requested 40 cc an hour. Receiving morphine 1-2 mg every 4 hours as needed pain. 12/25 No events overnight remains intubated off sedation. Tolerated CPAP for several hrs yesterday. Afebrile. 12/26 No events overnight. Patient tolerated CPAP for most of day yesterday. Awake and alert follows commands, on no sedation. 12/27 Patient was extubated yesterday on 4L oxygen. Awake. Afebrile. 12/28 No events overnight. Remains on 4L oxygen. Awake and alert. 12/30: RECONSULT NOTE: reconsulted as rapid response for hypoxia. per the family , patient had desaturation episode to the 60s, placed on NRB. family insisted on transfer back to ICU. when I saw patient on arrival to ICU, patient spo2 99% on NRB. pao2 on NRB was 150. patient is well-known to me with baseline spo2 82- 86% on 5L o2 by NC at home. family states he has another pneumonia. on my review of CXR and lab evidence, unclear if this is new pneumonia vs. old chronic lung disease. patient denies sob or new symptoms. 12/31: no changes. remains on simple mask at 6LPM. not in distress. family does not want to leave ICU and wants to continue ICU care for the remainder of the hospitalization. long discussion about needing to de-escalate level of care prior to hospital discharge. 01/07 Reconsult for Resp. distress. Patient was placed on BIPAP with 60% FIO2. ABG this morning showed some improvements in his resp acidosis with PH:7.34, CO2 72 from 82. CXR from 16/[address] chest today. 01/08 Patient was intubated this morning for worsening resp acidosis. CT chest yesterday showed pneumonia/aspiration. On Diprivan for sedation. Afebrile. 01/09 Patient is intubated and on low dose Diprivan drip. Afebrile. 01/10 Patient remains intubated. Awake, tolerated CPAP for most of day yesterday. Afebrile. 01/11 No events overnight. Awake and alert off sedation, tolerated CPAP all day yesterday. Afebrile. 01/12: Family concern regarding testicular swelling. I went over available laboratories. Will check hepatitis C genotype and PCR viral load today. We will also check C. difficile per family request. Patient tolerated CPAP yesterday for around 10 hours. Has been on CPAP since 8 AM this morning. FiO2 35%. Subjective: 01/13: Afebrile. Remains on CPAP trial 16/08 at 35%. All x-rays pending. Long discussion with family at bedside and via telephone. Plan for bronchoscopy tomorrow if okay with 2 other daughters with pulmonology. 01/14: remains intubated, sedated. plan for bronch today with pulmonary at bedside. failing SBTs. 01/15: intubated and sedated. will attempt SBT today. discussion yesterday with family: if he passes SBT, will proceed with extubation, but high risk for decompensation and re-intubation. if he gets reintubated again, will need trach/ peg to continue forward and aggressive care. 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 01/16: Remains orally intubated on mechanical ventilation. ABG done today borderline. Resumed Lasix. GI started spironolactone to mobilize fluid. Objective Vital Signs / I&O: Vital Signs 01/15/18 15:00 01/15/18 15:21 01/15/18 16:00 Temperature 98.4 F Pulse Rate 83 82 Respiratory Rate 25 H 25 H 21 Blood Pressure 126/61 Pulse Oximetry 95 97 01/15/18 18:00 01/15/18 19:08 01/15/18 20:00 Temperature 98.3 F Pulse Rate 93 H 90 85 Respiratory Rate 27 H 19 Blood Pressure 114/56 L Pulse Oximetry 92 L 01/15/18 22:00 01/15/18 23:08 01/16/18 00:00 Temperature 98.7 F Pulse Rate 94 H 88 92 H Respiratory Rate 20 32 H Blood Pressure 132/62 Pulse Oximetry 100 97 01/16/18 02:00 01/16/18 03:26 01/16/18 03:27 Temperature Pulse Rate 87 86 Respiratory Rate 18 18 Blood Pressure Pulse Oximetry 95 01/16/18 04:00 01/16/18 06:00 01/16/18 08:00 Temperature 98.5 F Pulse Rate 82 85 92 H Respiratory Rate 17 Blood Pressure 132/63 Pulse Oximetry 92 L 01/16/18 10:00 01/16/18 11:54 01/16/18 11:56 Temperature Pulse Rate 94 H 86 Respiratory Rate 20 17 Blood Pressure Pulse Oximetry 100 Intake & Output 01/15/18 01/16/18 01/16/18 18:59 06:59 18:59 Intake Total 406 / 406 507 / 507 50 / 50 Output Total 400 / 400 150 / 150 Balance 6 / 6 357 / 357 50 / 50 Weight 69.3 kg Intake: IV 50 / 50 100 / 100 50 / 50 Zosyn 3.375 GM Premix 50 ML @ 50 / 50 100 / 100 50 / 50 100 mls/hr IV.SIG Q6H NOAH Rx#: [id number] Tube Feeding 356 / 356 407 / 407 Output: Urine Amount (Catheter) 400 / 400 150 / 150 Condom 400 / 400 150 / 150 Other: Date of Last Bowel Movement 01/14/18 01/14/18 01/14/18 # Bowel Movements 2 1 Result Diagrams: 01/16/18 06:29 01/16/18 06:29 Objective Remarks: GENERAL: 82-year-old male lying in bed orotracheally intubated HEENT: Normocephalic. Atraumatic. Pupils equal, round, reactive, conjugate. Mucous membranes are moist NECK: Trachea is midline. No JVD, orally intubated with ETT 7.5cm CHEST: B/l equal air entry, diminished at bases CARDIOVASCULAR: Normal rate, regular rhythm. ABDOMEN: Soft, nontender, nondistended. No guarding. MUSCULOSKELETAL: Pulses 2+. significant evidence of scrotal edema. 1+ peripheral edema. No mottling NEUROLOGICAL: arousable on the ventilator. Moves all 4 extremities spontaneously. Assessment and Plan - Assessment and Plan Plan: Neuro/psych: Acute metabolic encephalopathy- resolved Off sedation. 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 SBT daily. Will likely need trach/PEG tube placement. Patient is at high risk of reintubation if gets extubated as this is his second intubation Continue prednisone 10mg BID Pulmonary is following- Dr. Lazcano CT chest: Postsurgical features of suspected previous left-sided lobectomy with volume loss and mediastinal shift to the left. Bulky left-sided pleural plaques with chronic appearing small to moderate sized loculated left pleural effusion. Dense airspace consolidation in the superior segment of the right lower lobe with patchy interstitial and groundglass opacities throughout the right lower lobe. 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 Normal left ventricular size. Wall thickness is normal. No regional wall motion abnormalities are present. Diffuse calcification of the aortic valve but no significant stenosis. There is mild to moderate tricuspid valve regurgitation. The estimated pulmonary arterial pressure is 76.9 mmHg with severe pulmonary hypertension. Previously on furosemide 40 mg by tube daily. Restarted Lasix 40 mg IV every 12 hourly on 01/16. GI started spironolactone on 01/16 As needed labetalol and Nitropaste for hypertension Renal/: History of nephrolithiasis Monitor renal function, I/O's, electrolytes replacement per protocol. Resume Lasix 40 mg IV every 12 hourly. Spironolactone daily started 01/16 FEN/GI: Severe acute protein calorie malnutrition Hep C IgG positive HyperNatremia On tube feeds- Glucerna 1.5 @45ml/hr Lansoprazole for GI prophylaxis Docusate sodium/senna 1 tablet twice daily for bowel regimen GI is following US abdomen: Limited exam due to obscuration by bowel gas.Simple left renal cyst. small ascites in the right upper quadrant. Pending hepatitis C genotype and PCR viral load ID: Healthcare associated pneumonia Severe sepsis- present on admission Normocytic anemia Thrombocytopenia Abx per ID (piperacillin/tazobactam) Voriconazole IV started on 01/16 per ID BAL cultures growing Aspergillus Follow up on sputum 01/08 normal resp vaishnavi Sputum culture 12/20-shea resp vaishnavi Blood cultures 12/19 no growth Urine UA with urine culture 12/20-NGTD Negative Legionella and pneumococcal urinary antigens Endocrine: Hyperglycemia of critical illness -- On medium SSI , continue insulin detemir [id number] Heme: Normocytic anemia Thrombocytopenia Monitor CBC, Hep PLT ab negative MSK:: History of left IT nailing 11/14 Vitamin D deficiency PT evaluate and treat Prophylaxis: GI Prophylaxis Lansoprazole DVT Prophylaxis -- SCDs - Enoxaparin held for anemia, thrombocytopenia and Hemoccult positive Lines: Peripheral IVs. Family considering PICC line All questions answered and they all voiced understanding of his condition.
[2018-01-16] MEDS: SODIUM CHLOR 0.9% IV.SIG SCH (17:41)
[2018-01-16] MEDS: VORICONAZOLE IV.SIG SCH (17:41)
[2018-01-16] MEDS: Loperamide 2 MG Capsule PO PRN ×2 (20:58→21:35)
[2018-01-17] MEDS: VORICONAZOLE IV.SIG SCH ×2 (02:57→15:03)
[2018-01-17] MEDS: SODIUM CHLOR 0.9% IV.SIG SCH ×2 (02:57→15:03)
[2018-01-17] MEDS: Oral Hygiene Kit OROPHARYNG SCH ×3 (03:48→16:37)
[2018-01-17] MEDS: Loperamide 2 MG Capsule PO PRN ×3 (03:49→15:03)
[2018-01-17 05:37] LABS: Mean Corpuscular HGB Conc 33.5 % (32.0-36.0); Mean Corpuscular Hemoglobin 30.7 pg (27.0-34.0); Mean Corpuscular Volume 91.7 fL (80.0-100.0); Mean Platelet Volume 8.8 fL (7.0-11.0); Platelet Count 121 th/mm3 (150-450); Red Blood Count 2.62 mil/mm3 (4.50-5.90); Red Cell Distribution Width 15.8 % (11.6-17.2); White Blood Count 4.4 th/mm3 (4.0-11.0)
[2018-01-17 05:59] LABS: Anion Gap 8 meq/L (5-15); Blood Urea Nitrogen 47 mg/dL (7-18); Calcium 7.7 mg/dL (8.5-10.1); Carbon Dioxide 30.9 meq/L (21.0-32.0); Chloride 104 meq/L (98-107); Glomerular Filtration Rate 66 mL/min (>89); Glucose,Random 213 mg/dL (74-106); Potassium 3.8 meq/L (3.5-5.1); Sodium 143 meq/L (136-145)
[2018-01-17 06:00] LABS: Phosphorus 3.3 mg/dL (2.5-4.9)
[2018-01-17] MEDS: Piperacil/Tazo 3.375 GM Premix 50 ML IV.SIG SCH ×3 (06:06→17:46)
[2018-01-17] MEDS: Insulin NovoLOG Aspart Correctional Sugar Inj SQ SCH ×5 (06:58→20:40)
[2018-01-17 07:40] LABS: Albumin 2.2 g/dL (3.4-5.0); Aspartate Aminotransferase 35 U/L (15-37)
[2018-01-17 07:44] LABS: Alanine Aminotransferase 44 U/L (12-78); Total Protein 5.4 g/dL (6.4-8.2)
[2018-01-17 07:46] LABS: Alkaline Phosphatase 194 U/L (45-117)
[2018-01-17] MEDS: predniSONE 10 MG Tablet PO SCH ×2 (09:48→20:40)
[2018-01-17] MEDS: rifAXIMin 550 MG Tablet PO SCH ×2 (09:48→20:40)
[2018-01-17] MEDS: Insulin Detemir Inj 1,000 UNIT/10 ML Vial SQ SCH ×2 (09:49→20:41)
[2018-01-17] MEDS: Bismuth Subsalicylate Susp 240 ML Bottle NG/OG SCH ×3 (09:49→17:46)
[2018-01-17] MEDS: Carboxymethylcellulose 0.5% Opth Drops 15 ML Bottle EACH EYE SCH ×2 (09:50→20:25)
[2018-01-17] MEDS: Chlorhexidine 0.12% Oral Kit 15 ML UDC OROPHARYNG SCH ×2 (09:50→20:25)
--- NOTE | 2018-01-17 10:40 | P.PNCC ---
Subjective Subjective Remarks/Hospital Course: 82-year-old male with past medical history of COPD and CHF presents for an evaluation of shortness of breath and hypoxemia worsening over past few days. The nebulizer treatments helped initially however today there were not helpful. EMS reports on scene the O2 sat was in the 80s. He received high flow oxygen and nebulized albuterol in route here. His blood pressure initially in the emergency department was 200/100 however trended down to about 160/90. BiPAP was started in the emergency department with improvement in his O2 sat that has trended towards the high 90s with 100% FiO2 on BiPAP. Shortly after transfer to ICU the patient continues to to be more hypoxemic and restless requiring endotracheal intubation and mechanical ventilation. 12/20: intubated and sedated. still hypercarbic with [id number] respiratory acidosis. family unhappy that patient was intubated: they insisted last night on being a Full Code, but apparently the daughter required that she be notified of exactly what SpO2 the patient was at, and it had to reach a certain low level before she would be ok with intubation. Per overnight records , patient presented with severe respiratory distress, and family reports that EMS stated patient "wouldn't make it all the way to [facility]" due to his pulmonary instability. This morning, hypoxia is somewhat improved. remains on broad spectrum antibiotics. I explained to family that this is likely a new pneumonia causing respiratory failure. I also explained that after recent hip fracture and recent prolonged hospitalization, his baseline end-stage lung disease and NYHA Class IV symptoms are likely to worsen, and this may be worsening of his overall end-stage disease processes. Family continues to state that our facility caused his lung failure during the prior hospitalization. They are also concerned about his poor peripheral perfusion and oliguria, which concerns me also: I explained that his heart failure could not tolerate significant amount of iv fluids, and we have already given him 1500mL over the last 12 hours, but they have insisted on additional iv fluids. I explained he had severe sepsis and the mortality associated with this. Daughter continues to remind me that her father "is coming home with her and getting better" as she has stated multiple times in the past. 12/21: no improvements. remains intubated. clinically becoming volume overloaded - will be forced to start diuresis. 12/22: mental status slightly improved. still failing weaning attempts. 12/23: Afebrile. Currently on PSV trial 15/7 at 45%. Discussed with and daughter at bedside. Chest x-ray revealed ET tube at camilla. Retracted 1 cm. Tolerating tube feeds with family requested 40 cc an hour. 12/24: Afebrile. Currently CPAP trial FiO2 at 45%. Tolerating tube feeds if family requested 40 cc an hour. Receiving morphine 1-2 mg every 4 hours as needed pain. 12/25 No events overnight remains intubated off sedation. Tolerated CPAP for several hrs yesterday. Afebrile. 12/26 No events overnight. Patient tolerated CPAP for most of day yesterday. Awake and alert follows commands, on no sedation. 12/27 Patient was extubated yesterday on 4L oxygen. Awake. Afebrile. 12/28 No events overnight. Remains on 4L oxygen. Awake and alert. 12/30: RECONSULT NOTE: reconsulted as rapid response for hypoxia. per the family , patient had desaturation episode to the 60s, placed on NRB. family insisted on transfer back to ICU. when I saw patient on arrival to ICU, patient spo2 99% on NRB. pao2 on NRB was 150. patient is well-known to me with baseline spo2 82- 86% on 5L o2 by NC at home. family states he has another pneumonia. on my review of CXR and lab evidence, unclear if this is new pneumonia vs. old chronic lung disease. patient denies sob or new symptoms. 12/31: no changes. remains on simple mask at 6LPM. not in distress. family does not want to leave ICU and wants to continue ICU care for the remainder of the hospitalization. long discussion about needing to de-escalate level of care prior to hospital discharge. 01/07 Reconsult for Resp. distress. Patient was placed on BIPAP with 60% FIO2. ABG this morning showed some improvements in his resp acidosis with PH:7.34, CO2 72 from 82. CXR from 16/[address] chest today. 01/08 Patient was intubated this morning for worsening resp acidosis. CT chest yesterday showed pneumonia/aspiration. On Diprivan for sedation. Afebrile. 01/09 Patient is intubated and on low dose Diprivan drip. Afebrile. 01/10 Patient remains intubated. Awake, tolerated CPAP for most of day yesterday. Afebrile. 01/11 No events overnight. Awake and alert off sedation, tolerated CPAP all day yesterday. Afebrile. 01/12: Family concern regarding testicular swelling. I went over available laboratories. Will check hepatitis C genotype and PCR viral load today. We will also check C. difficile per family request. Patient tolerated CPAP yesterday for around 10 hours. Has been on CPAP since 8 AM this morning. FiO2 35%. Subjective: 01/13: Afebrile. Remains on CPAP trial 16/08 at 35%. All x-rays pending. Long discussion with family at bedside and via telephone. Plan for bronchoscopy tomorrow if okay with 2 other daughters with pulmonology. 01/14: remains intubated, sedated. plan for bronch today with pulmonary at bedside. failing SBTs. 01/15: intubated and sedated. will attempt SBT today. discussion yesterday with family: if he passes SBT, will proceed with extubation, but high risk for decompensation and re-intubation. if he gets reintubated again, will need trach/ peg to continue forward and aggressive care. 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 01/16: Remains orally intubated on mechanical ventilation. ABG done today borderline. Resumed Lasix. GI started spironolactone to mobilize fluid. 01/17: Remains orally intubated on mechanical ventilation. Daily CPAP trials Objective Vital Signs / I&O: Vital Signs 01/16/18 11:54 01/16/18 11:56 01/16/18 12:00 Temperature 98.1 F Pulse Rate 86 93 H Respiratory Rate 20 17 16 Blood Pressure 150/67 H Pulse Oximetry 100 99 01/16/18 14:00 01/16/18 16:00 01/16/18 17:07 Temperature 98.0 F Pulse Rate 88 91 H Respiratory Rate 16 21 Blood Pressure 106/55 L Pulse Oximetry 100 100 01/16/18 17:08 01/16/18 18:00 01/16/18 19:35 Temperature Pulse Rate 91 H 107 H Respiratory Rate 21 24 Blood Pressure Pulse Oximetry 100 01/16/18 19:41 01/16/18 20:00 01/16/18 22:00 Temperature 98.1 F Pulse Rate 92 H 92 H 97 H Respiratory Rate 24 24 Blood Pressure 115/56 L Pulse Oximetry 93 L 01/16/18 22:20 01/16/18 23:10 01/17/18 00:00 Temperature 98.4 F Pulse Rate 97 H 93 H Respiratory Rate 22 22 18 Blood Pressure 112/53 L Pulse Oximetry 99 94 L 01/17/18 01:18 01/17/18 02:00 01/17/18 03:32 Temperature Pulse Rate 86 100 H Respiratory Rate 17 22 Blood Pressure Pulse Oximetry 93 L 01/17/18 04:00 01/17/18 04:32 01/17/18 06:00 Temperature 98.6 F Pulse Rate 98 H 116 H Respiratory Rate 21 18 Blood Pressure 112/56 L Pulse Oximetry 97 98 01/17/18 09:30 01/17/18 09:32 Temperature Pulse Rate 95 H Respiratory Rate 25 H 26 H Blood Pressure Pulse Oximetry 97 Intake & Output 01/16/18 01/17/18 01/17/18 18:59 06:59 18:59 Intake Total 130 / 130 507 / 507 50 / 50 Output Total 1000 / 1000 Balance -870 / -870 507 / 507 50 / 50 Weight 69.3 kg Intake: IV 100 / 100 200 / 200 50 / 50 Zosyn 3.375 GM Premix 50 ML @ 100 / 100 100 / 100 50 / 50 100 mls/hr IV.SIG Q6H NOAH Rx#: [id number] VFend Inj 420 MG In NS Inj 100 100 / 100 ML @ 50 mls/hr IV.SIG Q12H NOAH Rx#:[id number] Tube Feeding 30 307 / 307 Output: Urine Amount (Catheter) 1000 / 1000 Condom 1000 / 1000 Other: Date of Last Bowel Movement 01/16/18 01/17/18 01/17/18 # Bowel Movements 5 3 Result Diagrams: 01/17/18 05:03 01/17/18 05:03 Objective Remarks: GENERAL: 82-year-old male lying in bed orotracheally intubated HEENT: Normocephalic. Atraumatic. Pupils equal, round, reactive, conjugate. Mucous membranes are moist NECK: Trachea is midline. No JVD, orally intubated with ETT 7.5cm CHEST: B/l equal air entry, diminished at bases CARDIOVASCULAR: Normal rate, regular rhythm. ABDOMEN: Soft, nontender, nondistended. No guarding. MUSCULOSKELETAL: Pulses 2+. significant evidence of scrotal edema. 1+ peripheral edema. No mottling NEUROLOGICAL: arousable on the ventilator. Moves all 4 extremities spontaneously. Assessment and Plan - Assessment and Plan Plan: Neuro/psych: Acute metabolic encephalopathy- resolved Off sedation. 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 SBT daily. Will likely need trach/PEG tube placement. Patient is at high risk of reintubation if gets extubated as this is his second intubation Continue prednisone 10mg BID Pulmonary is following- Dr. Lazcano CT chest: Postsurgical features of suspected previous left-sided lobectomy with volume loss and mediastinal shift to the left. Bulky left-sided pleural plaques with chronic appearing small to moderate sized loculated left pleural effusion. Dense airspace consolidation in the superior segment of the right lower lobe with patchy interstitial and groundglass opacities throughout the right lower lobe. 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 Normal left ventricular size. Wall thickness is normal. No regional wall motion abnormalities are present. Diffuse calcification of the aortic valve but no significant stenosis. There is mild to moderate tricuspid valve regurgitation. The estimated pulmonary arterial pressure is 76.9 mmHg with severe pulmonary hypertension. Previously on furosemide 40 mg by tube daily. Restarted Lasix 40 mg IV every 12 hourly on 01/16. GI started spironolactone on 01/16 As needed labetalol and Nitropaste for hypertension Renal/: History of nephrolithiasis Monitor renal function, I/O's, electrolytes replacement per protocol. Resume Lasix 40 mg IV every 12 hourly. Spironolactone daily started 01/16 FEN/GI: Severe acute protein calorie malnutrition Hep C IgG positive HyperNatremia On tube feeds- Glucerna 1.5 @45ml/hr Lansoprazole for GI prophylaxis Docusate sodium/senna 1 tablet twice daily for bowel regimen GI is following US abdomen: Limited exam due to obscuration by bowel gas.Simple left renal cyst. small ascites in the right upper quadrant. Positive HepC IgG hepatitis C genotype and PCR viral load negative ID: Healthcare associated pneumonia Severe sepsis- present on admission Normocytic anemia Thrombocytopenia Abx per ID (piperacillin/tazobactam) Voriconazole IV started on 01/16 per ID BAL cultures growing Aspergillus Follow up on sputum 01/08 normal resp vaishnavi Sputum culture 12/20-shea resp vaishnavi Blood cultures 12/19 no growth Urine UA with urine culture 12/20-NGTD Negative Legionella and pneumococcal urinary antigens Endocrine: Hyperglycemia of critical illness -- On medium SSI , continue insulin detemir [id number] Heme: Normocytic anemia Thrombocytopenia Monitor CBC, Hep PLT ab negative MSK:: History of left IT nailing 11/14 Vitamin D deficiency PT evaluate and treat Prophylaxis: GI Prophylaxis Lansoprazole DVT Prophylaxis -- SCDs - Enoxaparin held for anemia, thrombocytopenia and Hemoccult positive Lines: Peripheral IVs. Family considering PICC line All questions answered and they all voiced understanding of his condition.
[2018-01-17] MEDS: Budesonide-Formoterol 160/4.5 MCG 6 GM Inhaler INH SCH ×2 (10:52→20:26)
--- NOTE | 2018-01-17 11:18 | XR ---
EXAM DATE: 01/17/2018 10:35 AM EDT AGE/SEX: 82 years / Male INDICATIONS: Short of breath. CLINICAL DATA: This is the patient's subsequent encounter. Patient reports that signs and symptoms h ave been present for 1 week and indicates a pain score of 2/10. MEDICAL/SURGICAL HISTORY: . Chronic obstructive pulmonary disease. Congestive heart failure. D iabetes mellitus type II. . Lob[place] [facility] [place]. . FINDINGS: A single AP erect portable view the chest was obtained and again demonstrates the endotracheal tube i n place with the tip approximately 1 to 2 cm above the camilla. The nasogastric tube remains in place. The extensive left peripheral pleural based opacity is again noted with central aeration. There is right apical pleural parenchymal changes again noted. Hazy opacity remains in both lungs. The heart s ize is at the upper limits of normal. The left costophrenic angle is obscured. Multiple overlying dalton ctrocardiogram leads are present. CONCLUSION: No significant change. Electronically signed by: Sidney Long MD 01/17/2018 11:16 AM EDT
--- NOTE | 2018-01-17 16:53 | P.PN ---
Subjective Interval history: ALERT NAD ON BIPAP Physical Exam Vital signs: Vital Signs 01/16/18 17:00 01/16/18 17:07 01/16/18 17:08 Temperature Pulse Rate 91 H 91 H Respiratory Rate 22 21 21 Blood Pressure Pulse Oximetry 100 100 01/16/18 18:00 01/16/18 19:00 01/16/18 19:05 Temperature Pulse Rate 93 H 94 H 93 H Respiratory Rate 19 24 30 H Blood Pressure 108/56 L Pulse Oximetry 100 98 99 01/16/18 19:35 01/16/18 19:41 01/16/18 20:00 Temperature 98.1 F Pulse Rate 92 H 92 H Respiratory Rate 24 24 24 Blood Pressure 115/56 L Pulse Oximetry 100 93 L 01/16/18 21:00 01/16/18 21:01 01/16/18 22:00 Temperature Pulse Rate 98 H 99 H 97 H Respiratory Rate 47 H 31 H 27 H Blood Pressure 128/57 L 142/63 H Pulse Oximetry 90 L 88 L 95 01/16/18 22:20 01/16/18 23:00 01/16/18 23:10 Temperature Pulse Rate 100 H 97 H Respiratory Rate 22 28 H 22 Blood Pressure 135/62 Pulse Oximetry 99 94 L 01/17/18 00:00 01/17/18 01:00 01/17/18 01:18 Temperature 98.4 F Pulse Rate 91 H 90 Respiratory Rate 18 18 17 Blood Pressure 112/53 L 112/56 L Pulse Oximetry 94 L 94 L 93 L 01/17/18 02:00 01/17/18 03:00 01/17/18 03:32 Temperature Pulse Rate 86 95 H 100 H Respiratory Rate 17 19 22 Blood Pressure 114/54 L 118/56 L Pulse Oximetry 95 95 01/17/18 04:00 01/17/18 04:32 01/17/18 05:00 Temperature 98.6 F Pulse Rate 98 H 96 H Respiratory Rate 21 18 21 Blood Pressure 112/56 L 111/55 L Pulse Oximetry 97 98 89 L 01/17/18 06:00 01/17/18 07:00 01/17/18 08:00 Temperature 98.1 F Pulse Rate 92 H 97 H 95 H Respiratory Rate 18 20 21 Blood Pressure 116/57 L 107/55 L 121/58 L Pulse Oximetry 93 L 97 97 01/17/18 09:00 01/17/18 09:30 01/17/18 09:32 Temperature Pulse Rate 94 H 95 H Respiratory Rate 19 25 H 26 H Blood Pressure 132/58 L Pulse Oximetry 97 97 01/17/18 10:00 01/17/18 11:00 01/17/18 12:00 Temperature 98.0 F Pulse Rate 92 H 93 H 92 H Respiratory Rate 29 H 27 H 22 Blood Pressure 114/54 L 98/73 L 105/54 L Pulse Oximetry 98 99 98 01/17/18 12:01 01/17/18 13:00 01/17/18 14:00 Temperature Pulse Rate 92 H 93 H 92 H Respiratory Rate 26 H 13 18 Blood Pressure 114/56 L 124/58 L Pulse Oximetry 98 95 92 L 01/17/18 15:00 01/17/18 16:00 Temperature 98.1 F Pulse Rate 92 H 92 H Respiratory Rate 23 28 H Blood Pressure 122/58 L 112/56 L Pulse Oximetry 93 L 100 Intake & Output 01/16/18 01/17/18 01/17/18 18:59 06:59 18:59 Intake Total 130 / 130 507 / 507 100 / 100 Output Total 1000 / 1000 Balance -870 / -870 507 / 507 100 / 100 Weight 69.3 kg Intake: IV 100 / 100 200 / 200 100 / 100 Zosyn 3.375 GM Premix 50 ML @ 100 / 100 100 / 100 100 / 100 100 mls/hr IV.SIG Q6H NOAH Rx#: [id number] VFend Inj 420 MG In NS Inj 100 100 / 100 ML @ 50 mls/hr IV.SIG Q12H NOAH Rx#:[id number] Tube Feeding 30 / 30 307 / 307 Output: Urine Amount (Catheter) 1000 / 1000 Condom 1000 / 1000 Other: Date of Last Bowel Movement 01/16/18 01/17/18 01/17/18 # Bowel Movements 5 3 Narrative: General:Elderly W/m , Awake intubated and in no distress. HEENT:PERRL. Throat secretions .ET tube is in. Cardiovascular:Regular Rhythm, S1 S2 ,no murmur Respiratory : Basal crackles and bilateral wheezes and decreased breath sounds at bilateral bases. Abdomen: soft, nontender, positive bowel sounds. No Mass. Extremities: 1 + pitting edema bilateral lower extremities. Neuro:Alert and moves extremities. No Focal deficits. - Urinary Catheter Management Straight Cath placed during this visit: yes, but has since been removed by the nurse Reason for continuing: Not indwelling catheter Insertion date: 12/23/17 Insertion time: 01:00 Removal date: 12/22/17 Removal time: 01:00 Condom Cath placed during this visit: no Results - Labs CBC & Chem 7: 01/17/18 05:03 01/17/18 05:03 Laboratory Results - last 24 hr 01/16/18 01/16/18 01/16/18 16:52 20:29 23:12 WBC RBC Hgb Hct MCV MCH MCHC RDW Plt Count MPV Sodium Potassium Chloride Carbon Dioxide Anion Gap BUN Creatinine Estimated GFR POC Glucose 141 H 154 H 203 H Random Glucose Calcium Prot Corrected Calcium Phosphorus Magnesium Total Bilirubin AST ALT Alkaline Phosphatase Total Protein Albumin 01/17/18 01/17/18 01/17/18 05:03 05:03 05:03 WBC 4.4 RBC 2.62 L Hgb 8.0 L Hct 24.0 L MCV 91.7 MCH 30.7 MCHC 33.5 RDW 15.8 Plt Count 121 L MPV 8.8 Sodium 143 Cancelled Potassium 3.8 Cancelled Chloride 104 Cancelled Carbon Dioxide 30.9 Cancelled Anion Gap 8 Cancelled BUN 47 H Cancelled Creatinine 1.08 Cancelled Estimated GFR 66 L Cancelled POC Glucose Random Glucose 213 H Cancelled Calcium 7.7 L Cancelled Prot Corrected Calcium Cancelled Phosphorus 3.3 Magnesium 2.0 Total Bilirubin 0.7 Cancelled AST 35 Cancelled ALT 44 Cancelled Alkaline Phosphatase 194 H Cancelled Total Protein 5.4 L Cancelled Albumin 2.2 L Cancelled 01/17/18 01/17/18 09:26 16:34 WBC RBC Hgb Hct MCV MCH MCHC RDW Plt Count MPV Sodium Potassium Chloride Carbon Dioxide Anion Gap BUN Creatinine Estimated GFR POC Glucose 203 H 173 H Random Glucose Calcium Prot Corrected Calcium Phosphorus Magnesium Total Bilirubin AST ALT Alkaline Phosphatase Total Protein Albumin Microbiology 01/14/18 11:15 Bronchial - Bronchial Gram Stain - Final 01/14/18 11:15 Bronchial - Bronchial Bronchial Culture - Final Aspergillus sp not fumigatus 01/14/18 11:15 Bronchial Brushings - Bronchial Bronchial Charlotte Culture - Final Aspergillus sp not fumigatus - Imaging Impressions Chest X-Ray 10/21/18 10:35 CONCLUSION: No significant change. Assessment and Plan - Plan respiratory failure copd plan vent support wean as tolerated bronchodilator therapy antibx per id outlook poor
--- NOTE | 2018-01-17 17:09 | P.PNGI ---
Subjective Interval history: Patient opens eyes but responds to verbal stimuli. Continues with ventilator management, loose stools have been controlled with Lomotil No abdominal pain Physical Exam Vital signs: Vital Signs 01/16/18 17:07 01/16/18 17:08 01/16/18 18:00 Temperature Pulse Rate 91 H 93 H Respiratory Rate 21 21 19 Blood Pressure Pulse Oximetry 100 100 01/16/18 19:00 01/16/18 19:05 01/16/18 19:35 Temperature Pulse Rate 94 H 93 H Respiratory Rate 24 30 H 24 Blood Pressure 108/56 L Pulse Oximetry 98 99 100 01/16/18 19:41 01/16/18 20:00 01/16/18 21:00 Temperature 98.1 F Pulse Rate 92 H 92 H 98 H Respiratory Rate 24 24 47 H Blood Pressure 115/56 L Pulse Oximetry 93 L 90 L 01/16/18 21:01 01/16/18 22:00 01/16/18 22:20 Temperature Pulse Rate 99 H 97 H Respiratory Rate 31 H 27 H 22 Blood Pressure 128/57 L 142/63 H Pulse Oximetry 88 L 95 99 01/16/18 23:00 01/16/18 23:10 01/17/18 00:00 Temperature 98.4 F Pulse Rate 100 H 97 H 91 H Respiratory Rate 28 H 22 18 Blood Pressure 135/62 112/53 L Pulse Oximetry 94 L 94 L 01/17/18 01:00 01/17/18 01:18 01/17/18 02:00 Temperature Pulse Rate 90 86 Respiratory Rate 18 17 17 Blood Pressure 112/56 L 114/54 L Pulse Oximetry 94 L 93 L 95 01/17/18 03:00 01/17/18 03:32 01/17/18 04:00 Temperature 98.6 F Pulse Rate 95 H 100 H 98 H Respiratory Rate 19 22 21 Blood Pressure 118/56 L 112/56 L Pulse Oximetry 95 97 01/17/18 04:32 01/17/18 05:00 01/17/18 06:00 Temperature Pulse Rate 96 H 92 H Respiratory Rate 18 21 18 Blood Pressure 111/55 L 116/57 L Pulse Oximetry 98 89 L 93 L 01/17/18 07:00 01/17/18 08:00 01/17/18 09:00 Temperature 98.1 F Pulse Rate 97 H 95 H 94 H Respiratory Rate 20 21 19 Blood Pressure 107/55 L 121/58 L 132/58 L Pulse Oximetry 97 97 97 01/17/18 09:30 01/17/18 09:32 01/17/18 10:00 Temperature Pulse Rate 95 H 92 H Respiratory Rate 25 H 26 H 29 H Blood Pressure 114/54 L Pulse Oximetry 97 98 01/17/18 11:00 01/17/18 12:00 01/17/18 12:01 Temperature 98.0 F Pulse Rate 93 H 92 H 92 H Respiratory Rate 27 H 22 26 H Blood Pressure 98/73 L 105/54 L Pulse Oximetry 99 98 98 01/17/18 13:00 01/17/18 14:00 01/17/18 15:00 Temperature Pulse Rate 93 H 92 H 92 H Respiratory Rate 13 18 23 Blood Pressure 114/56 L 124/58 L 122/58 L Pulse Oximetry 95 92 L 93 L 01/17/18 16:00 01/17/18 16:55 Temperature 98.1 F Pulse Rate 92 H 90 Respiratory Rate 28 H 26 H Blood Pressure 112/56 L Pulse Oximetry 100 100 Intake & Output 01/16/18 01/17/18 01/17/18 18:59 06:59 18:59 Intake Total 130 / 130 507 / 507 100 / 100 Output Total 1000 / 1000 Balance -870 / -870 507 / 507 100 / 100 Weight 69.3 kg Intake: IV 100 / 100 200 / 200 100 / 100 Zosyn 3.375 GM Premix 50 ML @ 100 / 100 100 / 100 100 / 100 100 mls/hr IV.SIG Q6H NOAH Rx#: [id number] VFend Inj 420 MG In NS Inj 100 100 / 100 ML @ 50 mls/hr IV.SIG Q12H NOAH Rx#:[id number] Tube Feeding 30 / 30 307 / 307 Output: Urine Amount (Catheter) 1000 / 1000 Condom 1000 / 1000 Other: Date of Last Bowel Movement 01/16/18 01/17/18 01/17/18 # Bowel Movements 5 3 - Constitutional no acute distress, cachectic - Routine HEENT Exam Head: Present: normocephalic ENT: Present: mucous membranes moist (ET tube) - Routine Respiratory Exam Present: patient mechanically ventilated, decreased breath sounds - Routine Cardiovascular Exam Present: S1, S2 - Routine Abdominal Exam Present: soft (Round, no obvious pain or distention) - Routine Skin Exam Present: pallor - Urinary Catheter Management Straight Cath placed during this visit: yes, but has since been removed by the nurse Reason for continuing: Not indwelling catheter Insertion date: 12/23/17 Insertion time: 01:00 Removal date: 12/22/17 Removal time: 01:00 Condom Cath placed during this visit: no Results - Labs CBC & Chem 7: 01/17/18 05:03 01/17/18 05:03 Laboratory Results - last 24 hr 01/16/18 01/16/18 01/17/18 20:29 23:12 05:03 WBC 4.4 RBC 2.62 L Hgb 8.0 L Hct 24.0 L MCV 91.7 MCH 30.7 MCHC 33.5 RDW 15.8 Plt Count 121 L MPV 8.8 Sodium Potassium Chloride Carbon Dioxide Anion Gap BUN Creatinine Estimated GFR POC Glucose 154 H 203 H Random Glucose Calcium Prot Corrected Calcium Phosphorus Magnesium Total Bilirubin AST ALT Alkaline Phosphatase Total Protein Albumin 01/17/18 01/17/18 01/17/18 05:03 05:03 09:26 WBC RBC Hgb Hct MCV MCH MCHC RDW Plt Count MPV Sodium 143 Cancelled Potassium 3.8 Cancelled Chloride 104 Cancelled Carbon Dioxide 30.9 Cancelled Anion Gap 8 Cancelled BUN 47 H Cancelled Creatinine 1.08 Cancelled Estimated GFR 66 L Cancelled POC Glucose 203 H Random Glucose 213 H Cancelled Calcium 7.7 L Cancelled Prot Corrected Calcium Cancelled Phosphorus 3.3 Magnesium 2.0 Total Bilirubin 0.7 Cancelled AST 35 Cancelled ALT 44 Cancelled Alkaline Phosphatase 194 H Cancelled Total Protein 5.4 L Cancelled Albumin 2.2 L Cancelled 01/17/18 16:34 WBC RBC Hgb Hct MCV MCH MCHC RDW Plt Count MPV Sodium Potassium Chloride Carbon Dioxide Anion Gap BUN Creatinine Estimated GFR POC Glucose 173 H Random Glucose Calcium Prot Corrected Calcium Phosphorus Magnesium Total Bilirubin AST ALT Alkaline Phosphatase Total Protein Albumin Microbiology 01/14/18 11:15 Bronchial - Bronchial Gram Stain - Final 01/14/18 11:15 Bronchial - Bronchial Bronchial Culture - Final Aspergillus sp not fumigatus 01/14/18 11:15 Bronchial Brushings - Bronchial Bronchial [place] Culture - Final Aspergillus sp not fumigatus - Imaging Impressions Chest X-Ray 01/17/18 10:35 CONCLUSION: No significant change. Assessment and Plan - Plan - Anemia- likely multifactorial, no bleeding reported hgb today 7.9 - Elevated ALP/thrombocytopenia - No previous hx of liver dz, used to be drinker in the remote past This could be secondary to cardiac etiology vs liver dz Abdomen Ultrasound 01/09/18 1. Limited examination due to obscuration by bowel gas. 2. Simple left renal cyst. 3. Moderate amount of ascites in the right upper quadrant. - Ascites- No previous hx of liver dz, used to be drinker in the remote past This could be secondary to cardiac etiology vs liver dz He is on Lasix - COPD - Respiratory failure- intubated now - HCAP - congestive heart failure secondary to pulmonary hypertension 01/12/2018 patient continues in the intensive care setting on ventilator management. Does occasionally open eyes to loud voice. No obvious melena stools hematemesis or bright red rectal bleeding noted labs reviewed with current hemoglobin 8, platelet count 73, bilirubin 0.8, AST 57, noted to be hep C positive which could explain this mild elevation and ALT 74, alkaline phosphatase mildly elevated to 245. Patient is being followed per gastroenterology for anemia and positive Hemoccult. Hep C positive Currently no paracentesis done to this point. According to family members no history of GI bleed or rectal bleeding Anemia, hemoglobin remains low which is probably chronic but no obvious bleeding noted at this time. Consider further workup for hep C 01/13/2018, no acute changes noted as far as patient's ventilator management. and daughter present in the room and another daughter on the telephone. Family is requesting update and plan of care from a GI perspective which has been discussed with him several times before. Today discussion was around monitoring for any obvious bleeding, considering paracentesis in the future if warranted, possible PEG tube placement if patient is unable to wean from ventilator. Also discussed positive hep C reactive per labs this admission ( unknown cause). Family states patient had drank in the past but has not had any alcohol in the past 15-20 years and denies any illicit drug history. Explained that there are labs pending, and further liver disease workup would be done on an outpatient basis as well as monitoring labs while in the hospital. Patient also may require EGD once he is more stable and off ventilator. Supportive care given Diarrhea loose stools could be related to tube feed, versus medications. Patient's been placed on Lomotil and C. difficile is negative. Will also consider Xifaxan, RISA negative, 01/15/2018, liver genotype not detected, RNA pending, RISA negative IgG less than 20, AMS a negative IgA tissue transglutaminase less than 1, IgA 279. Family stressed secondary to patient's acute illness as well as possible prognosis which they are not receptive of. PEG tube placement as well as ventilator management and weaning discussed with patient but currently they are refusing any further PEG or trach and are requesting that he is workup not be rushed. Supportive care given to patient and family. Family is aware of hepatitis C , and that the patient continues to be critically ill. Diarrhea stools decreased, could be related to meds versus tube feed versus acute illness. Lomotil effective as well as Pepto-Bismol. Bronchoscopy results pending and patient is being followed per pulmonology, ventilator weaning slow but in process. Recheck Hemoccult stool on 01/14/2018 which is negative 01/16/2018 patient continues in the intensive care setting, gastroenterology following for hepatitis C new diagnosis and unknown to family until this hospital stay. Further hepatitis C liver workup noted, HCV RNA genotype not detected, HCV RNA PCR IUs per mL less than 15, HCV RNA PCR log less than 1.18. Lots of discussion and supportive care with family members per Dr Byrd. According to labs no acute hepatitis C at this time but antibodies show history. continue current meds. Consider liver biopsy if patient is more stable in the future if warranted as well as paracentesis to treat symptomatic needs. Gradual improvement with diarrhea and medications. Start Aldactone current Lasix. Consider 40 mg daily since patient has been started on Aldactone Patient remains in serious condition still on mechanical ventilation, has been slow weaning process. May need to consider PEG in the future but currently family refusing. 01/17/2018 current hemoglobin 8, no obvious bleeding noted. History of hepatitis C antibodies, but no active disease for now. Any cirrhosis could be related to hep C versus alcohol in his younger days. Patient will need to be followed per GI once he is more stable and out of the hospital. This is been explained again to the family members and supportive care given. In the future patient may need PEG tube if family agrees but at that time reconsult. Anemia will also need EGD in the future once patient is stable. Any loose stools could be related to patient's tube feeds versus antibiotics but is controlled and treated effectively with Pepto-Bismol Xifaxan and Lomotil. Plan: Diet, tube feeds glucerna Xifaxin 550mg. BID Started Aldactone 100 mg daily Lasix Prednisone 10 mg twice daily Pepto-Bismol 15 cc 3 times a day Lomotil PPI Supportive care, GI will sign off Patient was seen per myself and Dr. Byrd, note was written on his behalf
[2018-01-18] MEDS: Insulin NovoLOG Aspart Correctional Sugar Inj SQ SCH ×6 (00:03→20:27)
[2018-01-18] MEDS: Piperacil/Tazo 3.375 GM Premix 50 ML IV.SIG SCH ×4 (00:04→17:56)
[2018-01-18] MEDS: Oral Hygiene Kit OROPHARYNG SCH ×4 (00:04→17:24)
[2018-01-18] MEDS: SODIUM CHLOR 0.9% IV.SIG SCH ×2 (01:01→15:18)
[2018-01-18] MEDS: VORICONAZOLE IV.SIG SCH ×2 (01:01→15:18)
[2018-01-18 07:02] LABS: Hematocrit 23.3 % (39.0-51.0); Mean Corpuscular HGB Conc 34.4 % (32.0-36.0); Mean Corpuscular Hemoglobin 31.1 pg (27.0-34.0); Mean Corpuscular Volume 90.5 fL (80.0-100.0); Mean Platelet Volume 8.8 fL (7.0-11.0); Platelet Count 137 th/mm3 (150-450); Red Blood Count 2.58 mil/mm3 (4.50-5.90); White Blood Count 5.2 th/mm3 (4.0-11.0)
[2018-01-18 07:24] LABS: Calcium 7.9 mg/dL (8.5-10.1); Carbon Dioxide 31.4 meq/L (21.0-32.0); Magnesium 2.4 mg/dL (1.5-2.5); Phosphorus 3.3 mg/dL (2.5-4.9); Potassium 3.7 meq/L (3.5-5.1)
[2018-01-18] MEDS: Carboxymethylcellulose 0.5% Opth Drops 15 ML Bottle EACH EYE SCH ×2 (08:58→20:28)
[2018-01-18] MEDS: Bismuth Subsalicylate Susp 240 ML Bottle NG/OG SCH ×3 (08:58→17:56)
[2018-01-18] MEDS: Spironolactone 25 MG Tablet PO SCH (09:01)
[2018-01-18] MEDS: rifAXIMin 550 MG Tablet PO SCH ×2 (09:01→21:00)
[2018-01-18] MEDS: predniSONE 10 MG Tablet PO SCH ×2 (09:02→21:00)
[2018-01-18] MEDS: Insulin Detemir Inj 1,000 UNIT/10 ML Vial SQ SCH ×2 (09:02→20:28)
[2018-01-18] MEDS: Chlorhexidine 0.12% Oral Kit 15 ML UDC OROPHARYNG SCH ×2 (09:02→20:27)
[2018-01-18] MEDS: Loperamide 2 MG Capsule PO PRN (09:03)
[2018-01-18] MEDS: Potassium Chlor 20 mEq Premix 20 MEQ/100 ML PIGGYBACK IV.SIG PRN ×2 (10:01→13:10)
[2018-01-18] MEDS: Budesonide-Formoterol 160/4.5 MCG 6 GM Inhaler INH SCH ×2 (10:51→20:28)
--- NOTE | 2018-01-18 13:26 | P.PNID ---
Subjective Remarks: on vent , CPAP BAL growing Aspergilla 2/2 tolerating voriconazol no fever Antibiotics: zosyn stoppped voriconazole IV Allergies/Adverse Reactions: Allergies No Known Allergies Allergy (Verified 12/19/17 21:39) Objective Vital Signs 01/17/18 14:00 01/17/18 15:00 01/17/18 16:00 Temperature 98.1 F Pulse Rate 92 H 92 H 92 H Respiratory Rate 18 23 28 H Blood Pressure 124/58 L 122/58 L 112/56 L Pulse Oximetry 92 L 93 L 100 01/17/18 16:55 01/17/18 17:00 01/17/18 18:00 Temperature Pulse Rate 90 90 91 H Respiratory Rate 26 H 30 H 31 H Blood Pressure 129/59 L Pulse Oximetry 100 92 L 96 01/17/18 18:01 01/17/18 18:08 01/17/18 18:20 Temperature Pulse Rate 93 H 91 H 90 Respiratory Rate 33 H 29 H 27 H Blood Pressure 79/43 L 99/55 L 100/51 L Pulse Oximetry 96 87 L 90 L 01/17/18 18:32 01/17/18 18:42 01/17/18 19:00 Temperature Pulse Rate 89 91 H 87 Respiratory Rate 26 H 27 H 29 H Blood Pressure 102/51 L 108/53 L 113/56 L Pulse Oximetry 93 L 98 95 01/17/18 19:13 01/17/18 19:25 01/17/18 20:00 Temperature 98.5 F Pulse Rate 87 87 Respiratory Rate 29 H 23 26 H Blood Pressure 111/55 L 111/56 L Pulse Oximetry 99 96 100 01/17/18 21:00 01/17/18 22:00 01/17/18 22:07 Temperature Pulse Rate 89 91 H Respiratory Rate 26 H 29 H 22 Blood Pressure 120/58 L 115/58 L Pulse Oximetry 95 93 L 94 L 01/17/18 23:00 01/17/18 23:17 01/18/18 00:00 Temperature 98.1 F Pulse Rate 89 88 90 Respiratory Rate 18 17 20 Blood Pressure 123/60 115/58 L Pulse Oximetry 93 L 93 L 01/18/18 01:00 01/18/18 01:08 01/18/18 02:00 Temperature Pulse Rate 90 92 H Respiratory Rate 18 18 19 Blood Pressure 115/57 L 122/58 L Pulse Oximetry 100 100 96 01/18/18 03:00 01/18/18 03:45 01/18/18 04:00 Temperature 98.4 F Pulse Rate 92 H 93 H 97 H Respiratory Rate 19 19 21 Blood Pressure 115/53 L 126/57 L Pulse Oximetry 98 95 01/18/18 04:20 01/18/18 05:00 01/18/18 06:00 Temperature Pulse Rate 97 H 96 H Respiratory Rate 18 20 20 Blood Pressure 114/52 L 120/60 Pulse Oximetry 95 94 L 90 L 01/18/18 07:00 01/18/18 08:00 01/18/18 08:04 Temperature 99.0 F Pulse Rate 95 H 96 H 96 H Respiratory Rate 27 H 21 25 H Blood Pressure 120/54 L 120/54 L 128/60 Pulse Oximetry 95 100 100 01/18/18 08:20 01/18/18 08:28 01/18/18 09:00 Temperature Pulse Rate 99 H 100 H Respiratory Rate 40 H 37 H 25 H Blood Pressure 161/69 H 130/63 Pulse Oximetry 92 L 96 96 01/18/18 10:00 01/18/18 10:55 01/18/18 10:56 Temperature Pulse Rate 100 H 97 H Respiratory Rate 26 H 28 H 25 H Blood Pressure 139/63 Pulse Oximetry 95 99 Intake & Output 01/17/18 01/18/18 01/18/18 18:59 06:59 18:59 Intake Total 818 / 818 727 / 727 150 / 150 Output Total 700 / 700 1050 / 1050 Balance 118 / 118 -323 / -323 150 / 150 Weight 68 kg Intake: IV 350 / 350 150 / 150 150 / 150 Zosyn 3.375 GM Premix 50 ML @ 150 / 150 50 / 50 50 / 50 100 mls/hr IV.SIG Q6H NOAH Rx#: [id number] KCl 20 mEq Premix Inj 20 meq In 100 / 100 100 ml @ 50 mls/hr IV.SIG Q2H PRN Rx#:[id number] VFend Inj 280 MG In NS Inj 100 100 / 100 100 / 100 ML @ 100 mls/hr IV.SIG Q12H NOAH Rx#:[id number] Tube Feeding 228 / 228 577 / 577 Tube Irrigant 240 / 240 Output: Urine Amount (Catheter) 700 / 700 1050 / 1050 Condom 700 / 700 1050 / 1050 Other: Date of Last Bowel Movement 01/17/18 01/18/18 01/18/18 # Bowel Movements 1 # Incontinent Bowel Movements 3 01/14/18 11:15 Bronchial - Bronchial Gram Stain - Final 01/14/18 11:15 Bronchial - Bronchial Bronchial Culture - Final Aspergillus sp not fumigatus 01/14/18 11:15 Bronchial Brushings - Bronchial Bronchial [place] Culture - Final Aspergillus sp not fumigatus 01/14/18 11:15 Bronchial Washings - Bronchial Acid Fast Bacilli Smear - Final No acid fast bacilli seen 01/14/18 11:15 Bronchial Washings - Bronchial Mycobacterial Culture - Pending Lab - Hematology Results 01/17/18 01/18/18 05:03 06:25 WBC 4.4 5.2 RBC 2.62 L 2.58 L Hgb 8.0 L 8.0 L Hct 24.0 L 23.3 L MCV 91.7 90.5 MCH 30.7 31.1 MCHC 33.5 34.4 RDW 15.8 16.0 Plt Count 121 L 137 L MPV 8.8 8.8 Lab - Chemistry Results 01/16/18 01/16/18 01/16/18 13:20 16:52 20:29 Sodium Potassium Chloride Carbon Dioxide Anion Gap BUN Creatinine Estimated GFR POC Glucose 131 H 141 H 154 H Random Glucose Calcium Prot Corrected Calcium Phosphorus Magnesium Total Bilirubin AST ALT Alkaline Phosphatase Total Protein Albumin 01/16/18 01/17/18 01/17/18 23:12 05:03 05:03 Sodium 143 Cancelled Potassium 3.8 Cancelled Chloride 104 Cancelled Carbon Dioxide 30.9 Cancelled Anion Gap 8 Cancelled BUN 47 H Cancelled Creatinine 1.08 Cancelled Estimated GFR 66 L Cancelled POC Glucose 203 H Random Glucose 213 H Cancelled Calcium 7.7 L Cancelled Prot Corrected Calcium Cancelled Phosphorus 3.3 Magnesium 2.0 Total Bilirubin 0.7 Cancelled AST 35 Cancelled ALT 44 Cancelled Alkaline Phosphatase 194 H Cancelled Total Protein 5.4 L Cancelled Albumin 2.2 L Cancelled 01/17/18 01/17/18 01/17/18 09:26 16:34 20:21 Sodium Potassium Chloride Carbon Dioxide Anion Gap BUN Creatinine Estimated GFR POC Glucose 203 H 173 H 209 H Random Glucose Calcium Prot Corrected Calcium Phosphorus Magnesium Total Bilirubin AST ALT Alkaline Phosphatase Total Protein Albumin 01/18/18 01/18/18 06:25 13:10 Sodium 146 H Potassium 3.7 Chloride 106 Carbon Dioxide 31.4 Anion Gap 9 BUN 51 H Creatinine 1.17 Estimated GFR 60 L POC Glucose 181 H Random Glucose 192 H Calcium 7.9 L Prot Corrected Calcium Phosphorus 3.3 Magnesium 2.4 Total Bilirubin AST ALT Alkaline Phosphatase Total Protein Albumin Imaging: ITS Impressions Chest CT 01/07/18 00:00 CONCLUSION: 1. Postsurgical features of suspected previous left-sided lobectomy with volume loss and mediastinal shift to the left. 2. Bulky left-sided pleural plaques with chronic appearing small to moderate sized loculated left pleural effusion. 3. Dense airspace consolidation in the superior segment of the right lower lobe with patchy interstitial and groundglass opacities throughout the right lower lobe. Differential considerations include pneumonia and aspiration in the appropriate clinical setting. 4. Trace right-sided pleural effusion with fluid extending into the major fissure. 5. Mild coronary artery calcifications. 6. Small amount of ascites in the visualized upper abdomen. Abdomen Ultrasound 01/09/18 00:00 CONCLUSION: 1. Limited examination due to obscuration by bowel gas. 2. Simple left renal cyst. 3. Moderate amount of ascites in the right upper quadrant. Abdomen/Pelvis CT 01/13/18 00:00 CONCLUSION: 1. Patchy airspace disease right lung base and chronic loculated left pleural effusion not significantly changed since January 07. 2. Mild ascites with liver cirrhosis. 3. NG tip in stomach. Previous cholecystectomy. No bowel obstruction. 4. Multiple subacute lower right rib fractures. Venous Doppler Study 01/13/18 00:00 CONCLUSION: 1. The study is negative for lower extremity deep venous thrombosis. Abdomen X-Ray 01/15/18 00:00 CONCLUSION: Enteric tube placement as above. Chest X-Ray 01/17/18 10:35 CONCLUSION: No significant change. Physical Exam: GENERAL: awake, alert communicates. NAD SKIN: Warm and dry. NO rash EYES: Pupils equal and round. No scleral icterus. No injection or drainage. ENT: No nasal bleeding or discharge. Mucous membranes pink and moist. NECK: Trachea midline. CARDIOVASCULAR: Regular rate and rhythm. RESPIRATORY: . few scattered rhonchi to auscultation. Breath sounds diminished bilaterally. GASTROINTESTINAL: Abdomen soft, mildly tender, mildly distended MUSCULOSKELETAL: Extremities without clubbing, cyanosis, or edema. No obvious deformities. 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 WIll give IV for now with the plan to transition to oral LFTs closely will repeat non contrast chest CT in about 2 weeks beulah Herman case dw family @ b/s
--- NOTE | 2018-01-18 14:48 | P.PNCC ---
Subjective Subjective Remarks/Hospital Course: 82-year-old male with past medical history of COPD and CHF presents for an evaluation of shortness of breath and hypoxemia worsening over past few days. The nebulizer treatments helped initially however today there were not helpful. EMS reports on scene the O2 sat was in the 80s. He received high flow oxygen and nebulized albuterol in route here. His blood pressure initially in the emergency department was 200/100 however trended down to about 160/90. BiPAP was started in the emergency department with improvement in his O2 sat that has trended towards the high 90s with 100% FiO2 on BiPAP. Shortly after transfer to ICU the patient continues to to be more hypoxemic and restless requiring endotracheal intubation and mechanical ventilation. 12/20: intubated and sedated. still hypercarbic with [id number] respiratory acidosis. family unhappy that patient was intubated: they insisted last night on being a Full Code, but apparently the daughter required that she be notified of exactly what SpO2 the patient was at, and it had to reach a certain low level before she would be ok with intubation. Per overnight records , patient presented with severe respiratory distress, and family reports that EMS stated patient "wouldn't make it all the way to [facility]" due to his pulmonary instability. This morning, hypoxia is somewhat improved. remains on broad spectrum antibiotics. I explained to family that this is likely a new pneumonia causing respiratory failure. I also explained that after recent hip fracture and recent prolonged hospitalization, his baseline end-stage lung disease and NYHA Class IV symptoms are likely to worsen, and this may be worsening of his overall end-stage disease processes. Family continues to state that our facility caused his lung failure during the prior hospitalization. They are also concerned about his poor peripheral perfusion and oliguria, which concerns me also: I explained that his heart failure could not tolerate significant amount of iv fluids, and we have already given him 1500mL over the last 12 hours, but they have insisted on additional iv fluids. I explained he had severe sepsis and the mortality associated with this. Daughter continues to remind me that her father "is coming home with her and getting better" as she has stated multiple times in the past. 12/21: no improvements. remains intubated. clinically becoming volume overloaded - will be forced to start diuresis. 12/22: mental status slightly improved. still failing weaning attempts. 12/23: Afebrile. Currently on PSV trial 15/7 at 45%. Discussed with and daughter at bedside. Chest x-ray revealed ET tube at [place]. Retracted 1 cm. Tolerating tube feeds with family requested 40 cc an hour. 12/24: Afebrile. Currently CPAP trial FiO2 at 45%. Tolerating tube feeds if family requested 40 cc an hour. Receiving morphine 1-2 mg every 4 hours as needed pain. 12/25 No events overnight remains intubated off sedation. Tolerated CPAP for several hrs yesterday. Afebrile. 12/26 No events overnight. Patient tolerated CPAP for most of day yesterday. Awake and alert follows commands, on no sedation. 12/27 Patient was extubated yesterday on 4L oxygen. Awake. Afebrile. 12/28 No events overnight. Remains on 4L oxygen. Awake and alert. 12/30: RECONSULT NOTE: reconsulted as rapid response for hypoxia. per the family , patient had desaturation episode to the 60s, placed on NRB. family insisted on transfer back to ICU. when I saw patient on arrival to ICU, patient spo2 99% on NRB. pao2 on NRB was 150. patient is well-known to me with baseline spo2 82- 86% on 5L o2 by NC at home. family states he has another pneumonia. on my review of CXR and lab evidence, unclear if this is new pneumonia vs. old chronic lung disease. patient denies sob or new symptoms. 12/31: no changes. remains on simple mask at 6LPM. not in distress. family does not want to leave ICU and wants to continue ICU care for the remainder of the hospitalization. long discussion about needing to de-escalate level of care prior to hospital discharge. 01/07 Reconsult for Resp. distress. Patient was placed on BIPAP with 60% FIO2. ABG this morning showed some improvements in his resp acidosis with PH:7.34, CO2 72 from 82. CXR from 16/[address] chest today. 01/08 Patient was intubated this morning for worsening resp acidosis. CT chest yesterday showed pneumonia/aspiration. On Diprivan for sedation. Afebrile. 01/09 Patient is intubated and on low dose Diprivan drip. Afebrile. 01/10 Patient remains intubated. Awake, tolerated CPAP for most of day yesterday. Afebrile. 01/11 No events overnight. Awake and alert off sedation, tolerated CPAP all day yesterday. Afebrile. 01/12: Family concern regarding testicular swelling. I went over available laboratories. Will check hepatitis C genotype and PCR viral load today. We will also check C. difficile per family request. Patient tolerated CPAP yesterday for around 10 hours. Has been on CPAP since 8 AM this morning. FiO2 35%. Subjective: 01/13: Afebrile. Remains on CPAP trial 16/08 at 35%. All x-rays pending. Long discussion with family at bedside and via telephone. Plan for bronchoscopy tomorrow if okay with 2 other daughters with pulmonology. 01/14: remains intubated, sedated. plan for bronch today with pulmonary at bedside. failing SBTs. 01/15: intubated and sedated. will attempt SBT today. discussion yesterday with family: if he passes SBT, will proceed with extubation, but high risk for decompensation and re-intubation. if he gets reintubated again, will need trach/ peg to continue forward and aggressive care. 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 01/16: Remains orally intubated on mechanical ventilation. ABG done today borderline. Resumed Lasix. GI started spironolactone to mobilize fluid. 01/17: Remains orally intubated on mechanical ventilation. Daily CPAP trials 01/18: Awake, alert, orally intubated on mechanical ventilation. Daily CPAP trials ongoing. Continues to have diarrhea. Objective Vital Signs / I&O: Vital Signs 01/17/18 15:00 01/17/18 16:00 01/17/18 16:55 Temperature 98.1 F Pulse Rate 92 H 92 H 90 Respiratory Rate 23 28 H 26 H Blood Pressure 122/58 L 112/56 L Pulse Oximetry 93 L 100 100 01/17/18 17:00 01/17/18 18:00 01/17/18 18:01 Temperature Pulse Rate 90 91 H 93 H Respiratory Rate 30 H 31 H 33 H Blood Pressure 129/59 L 79/43 L Pulse Oximetry 92 L 96 96 01/17/18 18:08 01/17/18 18:20 01/17/18 18:32 Temperature Pulse Rate 91 H 90 89 Respiratory Rate 29 H 27 H 26 H Blood Pressure 99/55 L 100/51 L 102/51 L Pulse Oximetry 87 L 90 L 93 L 01/17/18 18:42 01/17/18 19:00 01/17/18 19:13 Temperature Pulse Rate 91 H 87 87 Respiratory Rate 27 H 29 H 29 H Blood Pressure 108/53 L 113/56 L 111/55 L Pulse Oximetry 98 95 99 01/17/18 19:25 01/17/18 20:00 01/17/18 21:00 Temperature 98.5 F Pulse Rate 87 89 Respiratory Rate 23 26 H 26 H Blood Pressure 111/56 L 120/58 L Pulse Oximetry 96 100 95 01/17/18 22:00 01/17/18 22:07 01/17/18 23:00 Temperature Pulse Rate 91 H 89 Respiratory Rate 29 H 22 18 Blood Pressure 115/58 L 123/60 Pulse Oximetry 93 L 94 L 93 L 01/17/18 23:17 01/18/18 00:00 01/18/18 01:00 Temperature 98.1 F Pulse Rate 88 90 90 Respiratory Rate 17 20 18 Blood Pressure 115/58 L 115/57 L Pulse Oximetry 93 L 100 01/18/18 01:08 01/18/18 02:00 01/18/18 03:00 Temperature Pulse Rate 92 H 92 H Respiratory Rate 18 19 19 Blood Pressure 122/58 L 115/53 L Pulse Oximetry 100 96 98 01/18/18 03:45 01/18/18 04:00 01/18/18 04:20 Temperature 98.4 F Pulse Rate 93 H 97 H Respiratory Rate 19 21 18 Blood Pressure 126/57 L Pulse Oximetry 95 95 01/18/18 05:00 01/18/18 06:00 01/18/18 07:00 Temperature Pulse Rate 97 H 96 H 95 H Respiratory Rate 20 20 27 H Blood Pressure 114/52 L 120/60 120/54 L Pulse Oximetry 94 L 90 L 95 01/18/18 08:00 01/18/18 08:04 01/18/18 08:20 Temperature 99.0 F Pulse Rate 96 H 96 H Respiratory Rate 21 25 H 40 H Blood Pressure 120/54 L 128/60 Pulse Oximetry 100 100 92 L 01/18/18 08:28 01/18/18 09:00 01/18/18 10:00 Temperature Pulse Rate 99 H 100 H 100 H Respiratory Rate 37 H 25 H 26 H Blood Pressure 161/69 H 130/63 139/63 Pulse Oximetry 96 96 95 01/18/18 10:55 01/18/18 10:56 Temperature Pulse Rate 97 H Respiratory Rate 28 H 25 H Blood Pressure Pulse Oximetry 99 Intake & Output 01/17/18 01/18/18 01/18/18 18:59 06:59 18:59 Intake Total 818 / 818 727 / 727 150 / 150 Output Total 700 / 700 1050 / 1050 Balance 118 / 118 -323 / -323 150 / 150 Weight 68 kg Intake: IV 350 / 350 150 / 150 150 / 150 Zosyn 3.375 GM Premix 50 ML @ 150 / 150 50 / 50 50 / 50 100 mls/hr IV.SIG Q6H NOAH Rx#: [id number] KCl 20 mEq Premix Inj 20 meq In 100 / 100 100 ml @ 50 mls/hr IV.SIG Q2H PRN Rx#:[id number] VFend Inj 280 MG In NS Inj 100 100 / 100 100 / 100 ML @ 100 mls/hr IV.SIG Q12H NOAH Rx#:[id number] Tube Feeding 228 / 228 577 / 577 Tube Irrigant 240 / 240 Output: Urine Amount (Catheter) 700 / 700 1050 / 1050 Condom 700 / 700 1050 / 1050 Other: Date of Last Bowel Movement 01/17/18 01/18/18 01/18/18 # Bowel Movements 1 # Incontinent Bowel Movements 3 Result Diagrams: 01/18/18 06:25 01/18/18 06:25 Objective Remarks: GENERAL: 82-year-old male lying in bed orotracheally intubated HEENT: Normocephalic. Atraumatic. Positive pallor, no icterus. Mucous membranes are moist NECK: Trachea is midline. No JVD, orally intubated with ETT 7.5cm CHEST: Orally intubated on mechanical ventilation, B/l equal air entry, diminished at bases, scattered rhonchi CARDIOVASCULAR: Normal rate, regular rhythm. ABDOMEN: Soft, nontender, nondistended. No guarding. MUSCULOSKELETAL: Pulses 2+. significant evidence of scrotal edema. 1+ peripheral edema. No mottling NEUROLOGICAL: arousable on the ventilator. Moves all 4 extremities spontaneously. Assessment and Plan - Assessment and Plan Plan: Neuro/psych: Acute metabolic encephalopathy- resolved Off sedation. 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 SBT daily. Will likely need trach/PEG tube placement. Patient is at high risk of reintubation if gets extubated as this is his second intubation Continue prednisone 10mg BID Pulmonary is following- Dr. Lazcano CT chest: Postsurgical features of suspected previous left-sided lobectomy with volume loss and mediastinal shift to the left. Bulky left-sided pleural plaques with chronic appearing small to moderate sized loculated left pleural effusion. Dense airspace consolidation in the superior segment of the right lower lobe with patchy interstitial and groundglass opacities throughout the right lower lobe. 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 Normal left ventricular size. Wall thickness is normal. No regional wall motion abnormalities are present. Diffuse calcification of the aortic valve but no significant stenosis. There is mild to moderate tricuspid valve regurgitation. The estimated pulmonary arterial pressure is 76.9 mmHg with severe pulmonary hypertension. Previously on furosemide 40 mg by tube daily. Restarted Lasix 40 mg IV every 12 hourly on 01/16. GI started spironolactone on 01/16 As needed labetalol and Nitropaste for hypertension Renal/: History of nephrolithiasis Monitor renal function, I/O's, electrolytes replacement per protocol. Continue Lasix 40 mg IV every 12 hourly. Spironolactone daily started 01/16 FEN/GI: Severe acute protein calorie malnutrition Hep C IgG positive HyperNatremia On tube feeds- Glucerna 1.5 @45ml/hr Lansoprazole for GI prophylaxis Docusate sodium/senna 1 tablet twice daily for bowel regimen GI is following US abdomen: Limited exam due to obscuration by bowel gas.Simple left renal cyst. small ascites in the right upper quadrant. Positive HepC IgG hepatitis C genotype and PCR viral load negative ID: Healthcare associated pneumonia Severe sepsis- present on admission Normocytic anemia Thrombocytopenia Abx per ID (piperacillin/tazobactam) Voriconazole IV started on 01/16 per ID BAL cultures growing Aspergillus Follow up on sputum 01/08 normal resp vaishnavi Sputum culture 12/20-shea resp vaishnavi Blood cultures 12/19 no growth Urine UA with urine culture 12/20-NGTD Negative Legionella and pneumococcal urinary antigens Endocrine: Hyperglycemia of critical illness -- On medium SSI , continue insulin detemir [id number] Heme: Normocytic anemia Thrombocytopenia Monitor CBC, Hep PLT ab negative MSK:: History of left IT nailing 11/14 Vitamin D deficiency PT evaluate and treat Prophylaxis: GI Prophylaxis Lansoprazole DVT Prophylaxis -- SCDs - Enoxaparin held for anemia, thrombocytopenia and Hemoccult positive Lines: Peripheral IVs. Family considering PICC line Discussed with ID, discussed with Dr. Guerrier, discussed with palliative care. Discussed current clinical status with patient's family including plan of care and they voiced understanding and were agreeable.
[2018-01-18 16:17] LABS: ABG Base Excess 7.6 mmol/L (-2-2); ABG PCO2 47 mmHg (38-42); ABG PO2 74 mmHG (61-120)
--- NOTE | 2018-01-18 16:56 | P.PNPAL ---
Reason for Visit Reason for visit: a. To assist with evaluation and management of symptoms including: dyspnea, pain b. To assist medical decision maker(s) with: better understanding of current medical conditions; weighing benefits/burdens of medical treatment options; making medical treatment decisions. Subjective Subjective/Interval History: Pertinent history carried forward from Nathan Dyson APRN note: "s/p medical extubation 12/26. Started on bipap.Was planned for transfer out of ICU to stepdown 01/07. S/p CT chest = 1. Postsurgical features of suspected previous left-sided lobectomy with volume loss and mediastinal shift to the left.2. Bulky left-sided pleural plaques with chronic appearing small to moderate sized loculated left pleural effusion.3. Dense airspace consolidation in the superior segment of the right lower lobe with patchy interstitial and groundglass opacities throughout the right lower lobe. Differential considerations include pneumonia and aspiration in the appropriate clinical setting.4. Trace right-sided pleural effusion with fluid extending into the major fissure. ; lungs are essentially unchanged no overall changes to tx plan per critical care . worsening ABG ;Intubated 01/08/18 (3rd intubation this admission)." Patient seen and examined in ICU, nurse (Hillary) and family at bedside. Dr. Richards and Dr. Lazcano also present upon my arrival to room. Patient is awake and alert. Family preparing to clean the patient. They speak with him in Ghanaian and remind me he doesn't understand what I am saying (in Turkish). Patient nods and smiles while I am speaking to him. Remains on vent over weekend, tolerating CPAP. Per medical team, plan to continue CPAP trials and diuresis in hopes he will be able to be extubated in the coming days. May need to decrease diuretics if reanl function worsens, will continue to monitor. Family in agreement with plan. Patient continues to have diarrhea. GI following, notes indicate controlled with Lomotil. Notes indicate family has been refusing PEG tube placement. Advised palliative care team will continue to follow as needed. Appears Goals remain aggressive. Additional history per recent admission 11/13/17: Patient with known history CHF, diabetes, COPD, pulmonary fibrosis and asbestosis, presented to the ED after sustaining a fall in his home. He was lightheaded. Baseline 3-4 L nasal cannula requiring significant assistance with ADLs. Also with known history of LEFT thoracotomy and lobectomy/resection many years ago. Imaging finding of intertrochanteric fracture of proximal left hip. Also findings of osteopenia. Pulmonology evaluated patient and noted that he was cleared for surgery though may require BiPAP after. Suggested limited anesthesia secondary to moderately failure and/or pneumonia. Orthopedics consulted reviewed options family requested to proceed with operative management. During that admission noted during attending discussion with family daughter reports baseline mental status with some component of a dementia. Patient's primary language also reported to be a telemetry and though they requested no interpretation service be used during encounters because this would make him upset. During that hospital course patient did require ICU on BiPAP. Patient with some agitation. Anemia requiring transfusion postoperatively. Ongoing respiratory complication and concern for respiratory decompensation that could require mechanical ventilation and could result in difficulty weaning. Critical care notes discussion with family requested full CODE STATUS and continued aggressive management. Outpatient CT per Dr. Guerrier demonstrated pulmonary fibrosis and bronchiectasis. Patient did have a VQ scan during that admission with ventilation abnormally and perfume and of normal least left lower lobe pattern not typical of PE likely related to lobectomy. Avoiding CTA due to worsening renal function, family did not wish to assume risk. During that hospital course it is noted family requested transfer to [facility], critical care attempted to initiate that process. [facility] declined admission. Patient was also evaluated for LTAC, insurance apparently denied LTAC. Family appealed this and patient was later accepted by [facility]. He was discharged to [facility] 11/20/17. Family/Friend Interactions: See interval note. Advance Directives Living Will: Never completed Health Care Surrogate: Never completed Durable Power of Worm Sorter: Never completed Health Care Surrogate Name and Number: Sunshine Davenport, / Health care proxy: [phone] Significant change in goals:: Goals remain aggressive including FULL CODE. Objective Vital Signs: Vital Signs 01/17/18 16:55 01/17/18 17:00 01/17/18 18:00 Temperature Pulse Rate 90 90 91 H Respiratory Rate 26 H 30 H 31 H Blood Pressure 129/59 L Pulse Oximetry 100 92 L 96 01/17/18 18:01 01/17/18 18:08 01/17/18 18:20 Temperature Pulse Rate 93 H 91 H 90 Respiratory Rate 33 H 29 H 27 H Blood Pressure 79/43 L 99/55 L 100/51 L Pulse Oximetry 96 87 L 90 L 01/17/18 18:32 01/17/18 18:42 01/17/18 19:00 Temperature Pulse Rate 89 91 H 87 Respiratory Rate 26 H 27 H 29 H Blood Pressure 102/51 L 108/53 L 113/56 L Pulse Oximetry 93 L 98 95 01/17/18 19:13 01/17/18 19:25 01/17/18 20:00 Temperature 98.5 F Pulse Rate 87 87 Respiratory Rate 29 H 23 26 H Blood Pressure 111/55 L 111/56 L Pulse Oximetry 99 96 100 01/17/18 21:00 01/17/18 22:00 01/17/18 22:07 Temperature Pulse Rate 89 91 H Respiratory Rate 26 H 29 H 22 Blood Pressure 120/58 L 115/58 L Pulse Oximetry 95 93 L 94 L 01/17/18 23:00 01/17/18 23:17 01/18/18 00:00 Temperature 98.1 F Pulse Rate 89 88 90 Respiratory Rate 18 17 20 Blood Pressure 123/60 115/58 L Pulse Oximetry 93 L 93 L 01/18/18 01:00 01/18/18 01:08 01/18/18 02:00 Temperature Pulse Rate 90 92 H Respiratory Rate 18 18 19 Blood Pressure 115/57 L 122/58 L Pulse Oximetry 100 100 96 01/18/18 03:00 01/18/18 03:45 01/18/18 04:00 Temperature 98.4 F Pulse Rate 92 H 93 H 97 H Respiratory Rate 19 19 21 Blood Pressure 115/53 L 126/57 L Pulse Oximetry 98 95 01/18/18 04:20 01/18/18 05:00 01/18/18 06:00 Temperature Pulse Rate 97 H 96 H Respiratory Rate 18 20 20 Blood Pressure 114/52 L 120/60 Pulse Oximetry 95 94 L 90 L 01/18/18 07:00 01/18/18 08:00 01/18/18 08:04 Temperature 99.0 F Pulse Rate 95 H 96 H 96 H Respiratory Rate 27 H 21 25 H Blood Pressure 120/54 L 120/54 L 128/60 Pulse Oximetry 95 100 100 01/18/18 08:20 01/18/18 08:28 01/18/18 09:00 Temperature Pulse Rate 99 H 100 H Respiratory Rate 40 H 37 H 25 H Blood Pressure 161/69 H 130/63 Pulse Oximetry 92 L 96 96 01/18/18 10:00 01/18/18 10:55 01/18/18 10:56 Temperature Pulse Rate 100 H 97 H Respiratory Rate 26 H 28 H 25 H Blood Pressure 139/63 Pulse Oximetry 95 99 01/18/18 11:00 01/18/18 12:00 01/18/18 13:00 Temperature 98.7 F Pulse Rate 97 H 95 H 97 H Respiratory Rate 43 H 33 H 28 H Blood Pressure 151/65 H 136/63 128/61 Pulse Oximetry 94 L 94 L 100 01/18/18 14:00 01/18/18 14:38 01/18/18 15:00 Temperature Pulse Rate 93 H 93 H 90 Respiratory Rate 27 H 33 H 34 H Blood Pressure 128/60 137/62 Pulse Oximetry 95 96 84 L 01/18/18 15:06 01/18/18 16:05 Temperature Pulse Rate 93 H Respiratory Rate 35 H 34 H Blood Pressure 130/58 L Pulse Oximetry 97 98 Intake & Output 01/17/18 01/18/18 01/18/18 18:59 06:59 18:59 Intake Total 818 / 818 727 / 727 200 / 200 Output Total 700 / 700 1050 / 1050 Balance 118 / 118 -323 / -323 200 / 200 Weight 68 kg Intake: IV 350 / 350 150 / 150 200 / 200 Zosyn 3.375 GM Premix 50 ML @ 150 / 150 50 / 50 100 / 100 100 mls/hr IV.SIG Q6H NOAH Rx#: [id number] KCl 20 mEq Premix Inj 20 meq In 100 / 100 100 ml @ 50 mls/hr IV.SIG Q2H PRN Rx#:[id number] VFend Inj 280 MG In NS Inj 100 100 / 100 100 / 100 ML @ 100 mls/hr IV.SIG Q12H NOAH Rx#:[id number] Tube Feeding 228 / 228 577 / 577 Tube Irrigant 240 / 240 Output: Urine Amount (Catheter) 700 / 700 1050 / 1050 Condom 700 / 700 1050 / 1050 Other: Date of Last Bowel Movement 01/17/18 01/18/18 01/18/18 # Bowel Movements 1 # Incontinent Bowel Movements 3 Physical Exam: CONSTITUTIONAL/GENERAL: This is a thin elderly male, alert on [facility] vent. TUBES/LINES/DRAINS: ETT, OG, PIV. SKIN: No jaundice, rashes, or lesions. Fading ecchymosis along left hip, upper leg. No wounds seen anteriorly-reports sacral/buttock wound . Skin warm/dry. EYES: Pupils equal and reactive. No scleral icterus. No injection or drainage. Fundi not examined. ENT: Nose without bleeding or purulent drainage. unable to visualize 2/2 to ETT CARDIOVASCULAR: Regular rate and rhythm without murmur, rate 90s. No JVD. Peripheral pulses symmetric. RESPIRATORY/CHEST: Symmetric, unlabored respirations on vent, CPAP. scattered rhonchi, diminished bilateral bases. GASTROINTESTINAL: Abdomen soft, no tenderness. No palpable masses. Bowel sounds present. GENITOURINARY: Without palpable bladder distension. external catheter = clear yellow urine visible MUSCULOSKELETAL: Extremities with trace edema. No mottling or clubbing. NEUROLOGICAL: Alert, attempts to mouth words/speak to family. moves all 4 extremities. PSYCHIATRIC: calm, no apparent anxiety. Smiles. Diagnostic Tests Laboratory: Laboratory Results - last 72 hr 01/13/18 01/13/18 01/15/18 07:16 15:20 20:37 WBC RBC Hgb Hct MCV MCH MCHC RDW Plt Count MPV Puncture Site Patient Temperature O2 Saturation ABG pH ABG pCO2 ABG pO2 ABG HCO3 ABG O2 Content ABG Base Excess ABG Methemoglobin Krishna Test Hemoglobin Carboxyhemoglobin O2 Delivery Device Vent Setting Inspired O2 Critical Value Sodium Potassium Chloride Carbon Dioxide Anion Gap BUN Creatinine Estimated GFR POC Glucose 167 H Random Glucose Calcium Prot Corrected Calcium Phosphorus Magnesium Total Bilirubin AST ALT Alkaline Phosphatase Total Protein Albumin Stool g-8-Httgvrqzrxw 16 HCV RNA (PCR) IUs/ml Less than 15 HCV RNA PCR log IUs/ml Less than 1.18 01/15/18 01/16/18 01/16/18 23:22 06:28 06:29 WBC 3.8 L RBC 2.63 L Hgb 8.0 L Hct 24.0 L MCV 91.2 MCH 30.4 MCHC 33.3 RDW 15.6 Plt Count 111 L MPV 8.5 Puncture Site Patient Temperature O2 Saturation ABG pH ABG pCO2 ABG pO2 ABG HCO3 ABG O2 Content ABG Base Excess ABG Methemoglobin Krishna Test Hemoglobin Carboxyhemoglobin O2 Delivery Device Vent Setting Inspired O2 Critical Value Sodium Potassium Chloride Carbon Dioxide Anion Gap BUN Creatinine Estimated GFR POC Glucose 215 H 238 H Random Glucose Calcium Prot Corrected Calcium Phosphorus Magnesium Total Bilirubin AST ALT Alkaline Phosphatase Total Protein Albumin Stool [id number]-1-[id number] HCV RNA (PCR) IUs/ml HCV RNA PCR log IUs/ml 01/16/18 01/16/18 01/16/18 06:29 11:00 13:20 WBC RBC Hgb Hct MCV MCH MCHC RDW Plt Count MPV Puncture Site Right radial Patient Temperature 98.6 O2 Saturation 86 L* ABG pH 7.43 H ABG pCO2 43 H ABG pO2 59 L* ABG HCO3 28 H ABG O2 Content 10.8 L ABG Base Excess 4.0 H ABG Methemoglobin 1.3 Krishna Test Present Hemoglobin 8.9 L Carboxyhemoglobin 2.1 O2 Delivery Device Tpiece Vent Setting Inspired O2 35 Critical Value Yes Sodium 144 Potassium 4.2 Chloride 109 H Carbon Dioxide 28.7 Anion Gap 6 BUN 42 H Creatinine 0.93 Estimated GFR 78 L POC Glucose 131 H Random Glucose 206 H Calcium 7.6 L Prot Corrected Calcium Phosphorus 2.8 Magnesium 2.3 Total Bilirubin AST ALT Alkaline Phosphatase Total Protein Albumin Stool n-4-Cwhghjfnwwk HCV RNA (PCR) IUs/ml HCV RNA PCR log IUs/ml 01/16/18 01/16/18 01/16/18 16:52 20:29 23:12 WBC RBC Hgb Hct MCV MCH MCHC RDW Plt Count MPV Puncture Site Patient Temperature O2 Saturation ABG pH ABG pCO2 ABG pO2 ABG HCO3 ABG O2 Content ABG Base Excess ABG Methemoglobin Krishna Test Hemoglobin Carboxyhemoglobin O2 Delivery Device Vent Setting Inspired O2 Critical Value Sodium Potassium Chloride Carbon Dioxide Anion Gap BUN Creatinine Estimated GFR POC Glucose 141 H 154 H 203 H Random Glucose Calcium Prot Corrected Calcium Phosphorus Magnesium Total Bilirubin AST ALT Alkaline Phosphatase Total Protein Albumin Stool g-1-Lczqqscuaxm HCV RNA (PCR) IUs/ml HCV RNA PCR log IUs/ml 01/17/18 01/17/18 01/17/18 05:03 05:03 05:03 WBC 4.4 RBC 2.62 L Hgb 8.0 L Hct 24.0 L MCV 91.7 MCH 30.7 MCHC 33.5 RDW 15.8 Plt Count 121 L MPV 8.8 Puncture Site Patient Temperature O2 Saturation ABG pH ABG pCO2 ABG pO2 ABG HCO3 ABG O2 Content ABG Base Excess ABG Methemoglobin Krishna Test Hemoglobin Carboxyhemoglobin O2 Delivery Device Vent Setting Inspired O2 Critical Value Sodium 143 Cancelled Potassium 3.8 Cancelled Chloride 104 Cancelled Carbon Dioxide 30.9 Cancelled Anion Gap 8 Cancelled BUN 47 H Cancelled Creatinine 1.08 Cancelled Estimated GFR 66 L Cancelled POC Glucose Random Glucose 213 H Cancelled Calcium 7.7 L Cancelled Prot Corrected Calcium Cancelled Phosphorus 3.3 Magnesium 2.0 Total Bilirubin 0.7 Cancelled AST 35 Cancelled ALT 44 Cancelled Alkaline Phosphatase 194 H Cancelled Total Protein 5.4 L Cancelled Albumin 2.2 L Cancelled Stool s-3-Oagwtvikygj HCV RNA (PCR) IUs/ml HCV RNA PCR log IUs/ml 01/17/18 01/17/18 01/17/18 09:26 16:34 20:21 WBC RBC Hgb Hct MCV MCH MCHC RDW Plt Count MPV Puncture Site Patient Temperature O2 Saturation ABG pH ABG pCO2 ABG pO2 ABG HCO3 ABG O2 Content ABG Base Excess ABG Methemoglobin Krishna Test Hemoglobin Carboxyhemoglobin O2 Delivery Device Vent Setting Inspired O2 Critical Value Sodium Potassium Chloride Carbon Dioxide Anion Gap BUN Creatinine Estimated GFR POC Glucose 203 H 173 H 209 H Random Glucose Calcium Prot Corrected Calcium Phosphorus Magnesium Total Bilirubin AST ALT Alkaline Phosphatase Total Protein Albumin Stool q-2-Syitseknwdy HCV RNA (PCR) IUs/ml HCV RNA PCR log IUs/ml 01/18/18 01/18/18 01/18/18 06:25 06:25 13:10 WBC 5.2 RBC 2.58 L Hgb 8.0 L Hct 23.3 L MCV 90.5 MCH 31.1 MCHC 34.4 RDW 16.0 Plt Count 137 L MPV 8.8 Puncture Site Patient Temperature O2 Saturation ABG pH ABG pCO2 ABG pO2 ABG HCO3 ABG O2 Content ABG Base Excess ABG Methemoglobin Krishna Test Hemoglobin Carboxyhemoglobin O2 Delivery Device Vent Setting Inspired O2 Critical Value Sodium 146 H Potassium 3.7 Chloride 106 Carbon Dioxide 31.4 Anion Gap 9 BUN 51 H Creatinine 1.17 Estimated GFR 60 L POC Glucose 181 H Random Glucose 192 H Calcium 7.9 L Prot Corrected Calcium Phosphorus 3.3 Magnesium 2.4 Total Bilirubin AST ALT Alkaline Phosphatase Total Protein Albumin Stool y-3-Ljfckwifdez HCV RNA (PCR) IUs/ml HCV RNA PCR log IUs/ml 01/18/18 15:50 WBC RBC Hgb Hct MCV MCH MCHC RDW Plt Count MPV Puncture Site Right radial Patient Temperature 98.6 O2 Saturation 92 ABG pH 7.44 H ABG pCO2 47 H ABG pO2 74 ABG HCO3 32 H ABG O2 Content 10.6 L ABG Base Excess 7.6 H ABG Methemoglobin 1.3 Krishna Test Present Hemoglobin 8.1 L Carboxyhemoglobin 1.9 O2 Delivery Device Ventilator Vent Setting Cpap+5/ps+5 Inspired O2 35 Critical Value No Sodium Potassium Chloride Carbon Dioxide Anion Gap BUN Creatinine Estimated GFR POC Glucose Random Glucose Calcium Prot Corrected Calcium Phosphorus Magnesium Total Bilirubin AST ALT Alkaline Phosphatase Total Protein Albumin Stool n-4-Pnswbpxoaze HCV RNA (PCR) IUs/ml HCV RNA PCR log IUs/ml Result Diagrams: 01/18/18 06:25 01/18/18 06:25 Microbiology: Microbiology 01/14/18 11:15 Fungal Smear - Final Bronchial Washings - Bronchial No fungal elements seen Fungal Culture - Preliminary Yeast - ID to follow Mold species-ID to follow 01/14/18 11:15 Gram Stain - Final Bronchial - Bronchial Bronchial Culture - Final Aspergillus sp not fumigatus 01/14/18 11:15 Bronchial Dieterich Culture - Final Bronchial Brushings - Bronchial Aspergillus sp not fumigatus 01/14/18 11:15 Acid Fast Bacilli Smear - Final Bronchial Washings - Bronchial No acid fast bacilli seen Imaging: Chest CT 01/07/18 00:00 CONCLUSION: 1. Postsurgical features of suspected previous left-sided lobectomy with volume loss and mediastinal shift to the left. 2. Bulky left-sided pleural plaques with chronic appearing small to moderate sized loculated left pleural effusion. 3. Dense airspace consolidation in the superior segment of the right lower lobe with patchy interstitial and groundglass opacities throughout the right lower lobe. Differential considerations include pneumonia and aspiration in the appropriate clinical setting. 4. Trace right-sided pleural effusion with fluid extending into the major fissure. 5. Mild coronary artery calcifications. 6. Small amount of ascites in the visualized upper abdomen. Abdomen Ultrasound 01/09/18 00:00 CONCLUSION: 1. Limited examination due to obscuration by bowel gas. 2. Simple left renal cyst. 3. Moderate amount of ascites in the right upper quadrant. Abdomen/Pelvis CT 01/13/18 00:00 CONCLUSION: 1. Patchy airspace disease right lung base and chronic loculated left pleural effusion not significantly changed since January 07. 2. Mild ascites with liver cirrhosis. 3. NG tip in stomach. Previous cholecystectomy. No bowel obstruction. 4. Multiple subacute lower right rib fractures. Venous Doppler Study 01/13/18 00:00 CONCLUSION: 1. The study is negative for lower extremity deep venous thrombosis. Abdomen X-Ray 01/15/18 00:00 CONCLUSION: Enteric tube placement as above. Chest X-Ray 01/17/18 10:35 CONCLUSION: No significant change. Procedures: * 01/08 intubation, 3rd Assessment and Plan - Disease Oriented Problem List (1) COPD (chronic obstructive pulmonary disease) (2) CHF (congestive heart failure) (3) Respiratory distress (4) Sepsis (5) HCAP (healthcare-associated pneumonia) (6) NAHED (acute kidney injury) (7) Pulmonary hypertension (8) S/P lobectomy of lung - Symptom Scale (1) Dyspnea 0-10 Scale: Unable to quantify (2) Pain 0-10 Scale: Unable to quantify (3) Malnutrition 0-10 Scale: Unable to quantify Pertinent Non-Medical Issues: Psychosocial: Retired. Lived in [place] most of his life-- originally from [place], then moved to [place], then to [place]. 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 Supported by , 4 daughters, other extended family. Spiritual:methodist, sister providing spiritual care. Legal: Patient is not capacitated to make his own health care decisions, uncertain if he will regain capacity. According to [place] statutes, health care proxy decision making falls to his . She is making decisions supported by the rest of the family, daughters, sister are very involved in his care in decision-making. Ethical issues impacting care:no ethical issues identified Important Contacts: * Sunshine Davenport [phone] Prognosis: This 82-year-old patient is currently hospitalized due to severe sepsis, with respiratory failure. He has multiple chronic comorbidities. 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 He also has underlying COPD, pulmonary fibrosis, prior lobectomy. Overall poor prognosis for survival from current acute issues. Code Status: Full Code Plan: * Legal decision maker: Patient is not capacitated to make his own health care decisions, uncertain if he will regain capacity. According to [place] statutes, health care proxy decision making falls to his . She is making decisions supported by the rest of the family, daughters, sister are very involved in his care in decision-making. * Goals: aggressive goals: Family want to continue ongoing aggressive treatments to improve his condition, including full code. They have declined PEG tube at this time. Medical team hopes patient will be able to be weaned from mech vent. * FULL CODE * SYMPTOMS: --Dyspnea-admitted for shortness of breath. Desaturation reported at home. Urgently intubated upon arrival to ICU. CXR indicative right lower lung probable pneumonia. initially On broad-spectrum antibiotics. Cultures negative. Tolerated medical extubation 12/25. abx d/cd tolerating nasal cannula , to medical unit. HALICAT 12/30,for desaturation, now back in ICU, has remained stable in ICU, again with de-sat, required bipap early am 01/07, intubated . Due to recent pneumonia, intubation, debilitated status remains at risk for respiratory complications. Tolerating CPAP trials. --Pain-family endorses day to day at home patient did not endorse any pain. He is status post hip repair last month. Has been essentially bedbound since that time, potential sources would include recent hip surgery, as well as prolonged bedbound status and recent invasive procedures. Family endorses that pt is having some discomfort to his sacral region though they do not want him to have morphine because they feel that is too strong for him. Wound care following for wounds to buttocks. --Malnutrition- multiple intubation/extubation during this hospital course. Tolerating some PO when extubated. Now tolerating TF. Will likely require shelter tube feed supplementation to meet requirements due to fragile respiratory status, and limited PO intake. + diarrhea today, neg for c dif * Palliative care will continue to follow during hospital course as condition evolves, to assist patient/decision-maker with understanding of medical conditions, weighing benefits/burdens of treatment options, for clarification of goals of treatment. Additionally will assist with any symptoms of palliative concern Attestation Attestation: To help prompt me to consider important information that might be impacting today's encounter and assessment, information from prior notes written by myself or my colleagues may have been "brought forward" into today's note. My signature on this note, however, is an attestation that I personally performed the exam, history, and/or decision-making noted today, and, unless otherwise indicated, the interactions with patient, family, and staff as well as the review of records all occurred today. I also attest that the listed assessment and stated plan reflect my best clinical judgment today based on the combination of historical information, prior notes, and today's exam/ interactions. When time spent is documented, it refers only to time spent today by the signer, or if indicated, combined time spent today by collaborating physician/nurse practitioner.
--- NOTE | 2018-01-18 17:13 | P.DIET ---
Nutritional Evaluation Type of nutrition evaluation: follow-up Nutrition consult regarding: Tube Feeding Nutrition screening: MDC (Wound) Subjective Oral Diet Tolerance Assessment Indicates: Edentulous Objective - Diagnosis Sepsis, PNA, COPD Exacerbation, CHF - Objective % IBW: 116 (IBW = 118#) Body Weight Used for Calculations: Actual (62 kg) Energy Needs - Lower Range (kCal/kg): 25 Energy Needs - Upper Range (kCal/kg): 30 Lower Limit kCal/kg (kCals): 1,550 Upper Limit kCal/kg (kCals): 1,860 Lower Limit Protein Factor (Grams per Kg): 1.0 Upper Limit Protein Factor (Grams per Kg): 1.5 Lower Protein Needs (Protein): 62 Upper Protein Needs (Protein): 93 Dietitian Reviewed in Medical Record: Curent medications, Intake & Output, Labs , Medical history, Tube feeding Diet Order: TF'ing ONLY Wound Care Note: 01/07/18 WOCN note: bilateral buttock-stage 2 pressure injury Objective Comments: PMH includes: COPD, DM, Kidney Stones, Pneumothorax reintubated on 01/07 Glucose 181 Meds Include: Xifaxin, Pepto-Bismol, Lomotil +BM, pt w/diarrhea +UOP 1750ml Assessment Assessment: Pt. continues at nutritional risk r/t need for TF'ing. TF'ing currently on hold. When TF'ing is restarted, Rec to continue w/Rec TFing w/ Glucerna 1.5 @ goal rate of 45mls/hr. to offer 1620 kcal, 89g protein and 820ml free water. Rec 1-pkt Patrick BID via feeding tube, to aid in wound healing. Pt w/diarrhea; Infectious Disease progress note today 01/18 with: "Abx assoc. diarrhea, c-diff negative 05/01, CT neg for colitis". Wt changes noted. Dietitian following. Recommendations: 1. When TF'ing is restarted, Rec to continue w/Rec TFing w/ Glucerna 1.5 @ goal rate of 45mls/hr. 2. Rec 1-pkt Patrick BID via feeding tube, to aid in wound healing 3. Dietitian following Dietitian to Monitor: Lab values, Glucose level, Intake & Output, Tube feeding tolerance, Weight change, Wound/skin status, Medical course
--- NOTE | 2018-01-18 19:03 | P.PN ---
Subjective Interval history: Today on CPAP and seems stable. Tolerates PSV of 12. FIO2 at 35 % family here . Physical Exam Vital signs: Vital Signs 01/17/18 19:13 01/17/18 19:25 01/17/18 20:00 Temperature 98.5 F Pulse Rate 87 87 Respiratory Rate 29 H 23 26 H Blood Pressure 111/55 L 111/56 L Pulse Oximetry 99 96 100 01/17/18 21:00 01/17/18 22:00 01/17/18 22:07 Temperature Pulse Rate 89 91 H Respiratory Rate 26 H 29 H 22 Blood Pressure 120/58 L 115/58 L Pulse Oximetry 95 93 L 94 L 01/17/18 23:00 01/17/18 23:17 01/18/18 00:00 Temperature 98.1 F Pulse Rate 89 88 90 Respiratory Rate 18 17 20 Blood Pressure 123/60 115/58 L Pulse Oximetry 93 L 93 L 01/18/18 01:00 01/18/18 01:08 01/18/18 02:00 Temperature Pulse Rate 90 92 H Respiratory Rate 18 18 19 Blood Pressure 115/57 L 122/58 L Pulse Oximetry 100 100 96 01/18/18 03:00 01/18/18 03:45 01/18/18 04:00 Temperature 98.4 F Pulse Rate 92 H 93 H 97 H Respiratory Rate 19 19 21 Blood Pressure 115/53 L 126/57 L Pulse Oximetry 98 95 01/18/18 04:20 01/18/18 05:00 01/18/18 06:00 Temperature Pulse Rate 97 H 96 H Respiratory Rate 18 20 20 Blood Pressure 114/52 L 120/60 Pulse Oximetry 95 94 L 90 L 01/18/18 07:00 01/18/18 08:00 01/18/18 08:04 Temperature 99.0 F Pulse Rate 95 H 96 H 96 H Respiratory Rate 27 H 21 25 H Blood Pressure 120/54 L 120/54 L 128/60 Pulse Oximetry 95 100 100 01/18/18 08:20 01/18/18 08:28 01/18/18 09:00 Temperature Pulse Rate 99 H 100 H Respiratory Rate 40 H 37 H 25 H Blood Pressure 161/69 H 130/63 Pulse Oximetry 92 L 96 96 01/18/18 10:00 01/18/18 10:55 01/18/18 10:56 Temperature Pulse Rate 100 H 97 H Respiratory Rate 26 H 28 H 25 H Blood Pressure 139/63 Pulse Oximetry 95 99 01/18/18 11:00 01/18/18 12:00 01/18/18 13:00 Temperature 98.7 F Pulse Rate 97 H 95 H 97 H Respiratory Rate 43 H 33 H 28 H Blood Pressure 151/65 H 136/63 128/61 Pulse Oximetry 94 L 94 L 100 01/18/18 14:00 01/18/18 14:38 01/18/18 15:00 Temperature Pulse Rate 93 H 93 H 90 Respiratory Rate 27 H 33 H 34 H Blood Pressure 128/60 137/62 Pulse Oximetry 95 96 84 L 01/18/18 15:06 01/18/18 16:00 01/18/18 16:05 Temperature 98.6 F Pulse Rate 93 H 91 H Respiratory Rate 35 H 31 H 34 H Blood Pressure 130/58 L 132/59 L Pulse Oximetry 97 97 98 01/18/18 16:15 01/18/18 17:00 01/18/18 18:00 Temperature Pulse Rate 90 89 87 Respiratory Rate 29 H 31 H 30 H Blood Pressure 121/56 L 126/60 124/60 Pulse Oximetry 98 96 100 Intake & Output 01/18/18 01/18/18 01/19/18 06:59 18:59 06:59 Intake Total 727 / 727 560 / 560 Output Total 1050 / 1050 1450 / 1450 Balance -323 / -323 -890 / -890 Weight 68 kg Intake: IV 150 / 150 200 / 200 Zosyn 3.375 GM Premix 50 ML @ 50 / 50 100 / 100 100 mls/hr IV.SIG Q6H NOAH Rx#: [id number] KCl 20 mEq Premix Inj 20 meq In 100 / 100 100 ml @ 50 mls/hr IV.SIG Q2H PRN Rx#:[id number] VFend Inj 280 MG In NS Inj 100 100 / 100 ML @ 100 mls/hr IV.SIG Q12H NOAH Rx#:[id number] Tube Feeding 577 / 577 0 / 0 Water Bolus Amount 360 / 360 Output: Urine Amount (Catheter) 1050 / 1050 1450 / 1450 Condom 1050 / 1050 1450 / 1450 Other: Date of Last Bowel Movement 01/18/18 01/18/18 # Incontinent Bowel Movements 3 1 Narrative: General:Elderly W/m , Awake intubated and in no distress. HEENT:PERRL. Throat clear .ET tube is in. Cardiovascular:Regular Rhythm, S1 S2 ,no murmur Respiratory :Occ Basal crackles and bilateral wheezes and decreased breath sounds at bilateral bases. Abdomen: soft, nontender, positive bowel sounds. No Mass. Extremities: 1 + pitting edema bilateral lower extremities. Neuro:Alert and moves extremities. No Focal deficits. - Urinary Catheter Management Straight Cath placed during this visit: yes, but has since been removed by the nurse Reason for continuing: Not indwelling catheter Insertion date: 12/23/17 Insertion time: 01:00 Removal date: 12/22/17 Removal time: 01:00 Condom Cath placed during this visit: no Results - Labs CBC & Chem 7: 01/18/18 06:25 01/18/18 06:25 Laboratory Results - last 24 hr 01/17/18 01/18/18 01/18/18 20:21 06:25 06:25 WBC 5.2 RBC 2.58 L Hgb 8.0 L Hct 23.3 L MCV 90.5 MCH 31.1 MCHC 34.4 RDW 16.0 Plt Count 137 L MPV 8.8 Puncture Site Patient Temperature O2 Saturation ABG pH ABG pCO2 ABG pO2 ABG HCO3 ABG O2 Content ABG Base Excess ABG Methemoglobin Krishna Test Hemoglobin Carboxyhemoglobin O2 Delivery Device Vent Setting Inspired O2 Critical Value Sodium 146 H Potassium 3.7 Chloride 106 Carbon Dioxide 31.4 Anion Gap 9 BUN 51 H Creatinine 1.17 Estimated GFR 60 L POC Glucose 209 H Random Glucose 192 H Calcium 7.9 L Phosphorus 3.3 Magnesium 2.4 01/18/18 01/18/18 13:10 15:50 WBC RBC Hgb Hct MCV MCH MCHC RDW Plt Count MPV Puncture Site Right radial Patient Temperature 98.6 O2 Saturation 92 ABG pH 7.44 H ABG pCO2 47 H ABG pO2 74 ABG HCO3 32 H ABG O2 Content 10.6 L ABG Base Excess 7.6 H ABG Methemoglobin 1.3 Krishna Test Present Hemoglobin 8.1 L Carboxyhemoglobin 1.9 O2 Delivery Device Ventilator Vent Setting Cpap+5/ps+5 Inspired O2 35 Critical Value No Sodium Potassium Chloride Carbon Dioxide Anion Gap BUN Creatinine Estimated GFR POC Glucose 181 H Random Glucose Calcium Phosphorus Magnesium Microbiology 01/14/18 11:15 Bronchial Washings - Bronchial Fungal Smear - Final No fungal elements seen 01/14/18 11:15 Bronchial Washings - Bronchial Fungal Culture - Preliminary Yeast - ID to follow Mold species-ID to follow Assessment and Plan - Assessment (1) Respiratory failure requiring intubation Code(s): J96.90 - Respiratory failure, unspecified, unspecified whether with hypoxia or hypercapnia Status: Acute (2) Pneumonia Code(s): J18.9 - Pneumonia, unspecified organism Status: Acute (3) CHF (congestive heart failure), NYHA class II Code(s): I50.9 - Heart failure, unspecified Status: Acute (4) CHF (congestive heart failure) Code(s): I50.9 - Heart failure, unspecified Status: Acute (5) Respiratory abnormalities Code(s): J98.9 - Respiratory disorder, unspecified Status: Acute (6) Emphysema of lung Code(s): J43.9 - Emphysema, unspecified Status: Acute (7) Borderline diabetes mellitus Code(s): R73.03 - Prediabetes Status: Acute (8) Fracture, intertrochanteric, left femur Code(s): S72.142A - Displaced intertrochanteric fracture of left femur, initial encounter for closed fracture Status: Acute (9) Nutrition, metabolism, and development symptoms Code(s): R63.8 - Other symptoms and signs concerning food and fluid intake Status: Acute - Plan RECOMMENDATIONS: 1. Ventilator support and PSV to 12 CPAP +5, and FIO2 to 35 % 2. Bronchodilators ,DuoNeb q.6 hr. 3. D/W family here. 4. Possible Trial of extubation if he is stable with SBT, 5. Continue with Lasix 40 mg daily. 6. Cont antibiotics per ID. 7. Resp parameters and Extubate if he meets criteria. 8. Prednisone 10 mg BID 9. CBC , BMP in am 10.PT and OT Evaluation
[2018-01-19] MEDS: Piperacil/Tazo 3.375 GM Premix 50 ML IV.SIG SCH ×3 (00:34→12:05)
[2018-01-19] MEDS: Oral Hygiene Kit OROPHARYNG SCH ×4 (00:35→19:02)
[2018-01-19] MEDS: Insulin NovoLOG Aspart Correctional Sugar Inj SQ SCH ×6 (00:43→20:54)
[2018-01-19] MEDS: Acetaminophen 325 MG Tablet PO PRN ×2 (01:56→09:01)
[2018-01-19] MEDS: SODIUM CHLOR 0.9% IV.SIG SCH ×2 (02:00→14:00)
[2018-01-19] MEDS: VORICONAZOLE IV.SIG SCH ×2 (02:00→14:00)
[2018-01-19 07:02] LABS: Hematocrit 22.7 % (39.0-51.0); Hemoglobin 7.9 gm/dL (13.0-17.0); Mean Corpuscular HGB Conc 34.7 % (32.0-36.0); Mean Corpuscular Hemoglobin 31.2 pg (27.0-34.0); Mean Corpuscular Volume 89.8 fL (80.0-100.0); Mean Platelet Volume 8.9 fL (7.0-11.0); Platelet Count 140 th/mm3 (150-450); Red Blood Count 2.52 mil/mm3 (4.50-5.90); Red Cell Distribution Width 16.2 % (11.6-17.2)
[2018-01-19 07:24] LABS: Anion Gap 5 meq/L (5-15); Aspartate Aminotransferase 25 U/L (15-37); Blood Urea Nitrogen 58 mg/dL (7-18); Calcium 8.2 mg/dL (8.5-10.1); Carbon Dioxide 34.7 meq/L (21.0-32.0); Chloride 103 meq/L (98-107); Glomerular Filtration Rate 62 mL/min (>89); Magnesium 2.4 mg/dL (1.5-2.5); Potassium 4.4 meq/L (3.5-5.1); Sodium 143 meq/L (136-145)
[2018-01-19 07:29] LABS: Alanine Aminotransferase 29 U/L (12-78); Albumin 2.1 g/dL (3.4-5.0); Alkaline Phosphatase 185 U/L (45-117); Glucose,Random 148 mg/dL (74-106); Phosphorus 3.4 mg/dL (2.5-4.9); Total Protein 5.6 g/dL (6.4-8.2)
[2018-01-19] MEDS: rifAXIMin 550 MG Tablet PO SCH ×2 (09:01→20:55)
[2018-01-19] MEDS: Spironolactone 25 MG Tablet PO SCH (09:01)
[2018-01-19] MEDS: predniSONE 10 MG Tablet PO SCH ×2 (09:01→20:55)
[2018-01-19] MEDS: Chlorhexidine 0.12% Oral Kit 15 ML UDC OROPHARYNG SCH ×2 (09:02→20:55)
[2018-01-19] MEDS: Insulin Detemir Inj 1,000 UNIT/10 ML Vial SQ SCH ×2 (09:02→20:55)
[2018-01-19] MEDS: Budesonide-Formoterol 160/4.5 MCG 6 GM Inhaler INH SCH ×2 (09:03→20:55)
[2018-01-19] MEDS: Carboxymethylcellulose 0.5% Opth Drops 15 ML Bottle EACH EYE SCH ×2 (09:03→20:55)
[2018-01-19] MEDS: Bismuth Subsalicylate Susp 240 ML Bottle NG/OG SCH ×3 (09:25→19:03)
[2018-01-19 12:08] LABS: ABG PCO2 49 mmHg (38-42); ABG PO2 61 mmHG (61-120)
--- NOTE | 2018-01-19 12:55 | P.PN ---
Subjective Interval history: Alert and on CPAP today 5/5 cm, FIO2 35 %. Seems to be doing well. family here. Physical Exam Vital signs: Vital Signs 01/18/18 13:00 01/18/18 14:00 01/18/18 14:38 Temperature Pulse Rate 97 H 93 H 93 H Respiratory Rate 28 H 27 H 33 H Blood Pressure 128/61 128/60 137/62 Pulse Oximetry 100 95 96 01/18/18 15:00 01/18/18 15:06 01/18/18 16:00 Temperature 98.6 F Pulse Rate 90 93 H 91 H Respiratory Rate 34 H 35 H 31 H Blood Pressure 130/58 L 132/59 L Pulse Oximetry 84 L 97 97 01/18/18 16:05 01/18/18 16:15 01/18/18 17:00 Temperature Pulse Rate 90 89 Respiratory Rate 34 H 29 H 31 H Blood Pressure 121/56 L 126/60 Pulse Oximetry 98 98 96 01/18/18 18:00 01/18/18 19:00 01/18/18 20:00 Temperature 97.8 F Pulse Rate 87 85 89 Respiratory Rate 30 H 24 29 H Blood Pressure 124/60 135/60 135/60 Pulse Oximetry 100 98 84 L 01/18/18 20:42 01/18/18 21:00 01/18/18 22:00 Temperature Pulse Rate 89 85 82 Respiratory Rate 23 25 H 21 Blood Pressure 120/59 L 116/56 L Pulse Oximetry 98 98 94 L 01/18/18 22:32 01/18/18 23:00 01/18/18 23:22 Temperature Pulse Rate 84 83 82 Respiratory Rate 25 H 23 17 Blood Pressure 116/56 L 114/58 L Pulse Oximetry 93 L 93 L 95 01/19/18 00:00 01/19/18 01:00 01/19/18 02:00 Temperature 97.4 F L Pulse Rate 84 91 H 89 Respiratory Rate 17 18 19 Blood Pressure 107/53 L 115/60 114/54 L Pulse Oximetry 94 L 96 96 01/19/18 03:00 01/19/18 03:45 01/19/18 04:00 Temperature Pulse Rate 84 81 82 Respiratory Rate 25 H 16 33 H Blood Pressure 119/55 L 111/53 L Pulse Oximetry 95 97 01/19/18 04:36 01/19/18 05:00 01/19/18 06:00 Temperature Pulse Rate 80 81 Respiratory Rate 16 17 19 Blood Pressure 112/53 L 103/54 L Pulse Oximetry 96 94 L 94 L 01/19/18 07:00 01/19/18 07:27 01/19/18 07:31 Temperature Pulse Rate 81 81 Respiratory Rate 16 19 25 H Blood Pressure 113/56 L Pulse Oximetry 96 100 01/19/18 08:00 01/19/18 09:00 01/19/18 11:26 Temperature 98 F Pulse Rate 84 92 H 91 H Respiratory Rate 15 30 H 31 H Blood Pressure 131/61 120/57 L Pulse Oximetry 95 92 L 01/19/18 11:27 Temperature Pulse Rate Respiratory Rate 32 H Blood Pressure Pulse Oximetry 95 Intake & Output 01/18/18 01/19/18 01/19/18 18:59 06:59 18:59 Intake Total 560 / 560 885 / 885 50 / 50 Output Total 1450 / 1450 1200 / 1200 Balance -890 / -890 -315 / -315 50 / 50 Weight 68 kg Intake: IV 200 / 200 300 / 300 50 / 50 Zosyn 3.375 GM Premix 50 ML @ 100 / 100 100 / 100 50 / 50 100 mls/hr IV.SIG Q6H NOAH Rx#: [id number] KCl 20 mEq Premix Inj 20 meq In 100 / 100 100 ml @ 50 mls/hr IV.SIG Q2H PRN Rx#:[id number] VFend Inj 280 MG In NS Inj 100 200 / 200 ML @ 100 mls/hr IV.SIG Q12H NOAH Rx#:[id number] Tube Feeding 0 / 0 385 / 385 Water Bolus Amount 360 / 360 200 / 200 Output: Urine Amount (Catheter) 1450 / 1450 1200 / 1200 Condom 1450 / 1450 1200 / 1200 Other: Date of Last Bowel Movement 01/18/18 01/19/18 01/18/18 # Incontinent Bowel Movements 1 3 Narrative: General:Elderly W/m , Awake intubated and in no distress. HEENT:PERRL. Throat clear .ET tube is in. Cardiovascular:Regular Rhythm, S1 S2 ,no murmur Respiratory : Basal crackles and bilateral wheezes and decreased breath sounds at bases. Abdomen: soft, nontender, positive bowel sounds. No Mass. Extremities: No edema , bilateral lower extremities. Neuro:Alert and moves extremities. No Focal deficits. - Urinary Catheter Management Straight Cath placed during this visit: yes, but has since been removed by the nurse Reason for continuing: Not indwelling catheter Insertion date: 12/23/17 Insertion time: 01:00 Removal date: 12/22/17 Removal time: 01:00 Condom Cath placed during this visit: no Results - Labs CBC & Chem 7: 01/19/18 05:46 01/19/18 05:46 Laboratory Results - last 24 hr 01/18/18 01/18/18 01/18/18 13:10 15:50 20:23 WBC RBC Hgb Hct MCV MCH MCHC RDW Plt Count MPV Puncture Site Right radial Patient Temperature 98.6 O2 Saturation 92 ABG pH 7.44 H ABG pCO2 47 H ABG pO2 74 ABG HCO3 32 H ABG O2 Content 10.6 L ABG Base Excess 7.6 H ABG Methemoglobin 1.3 Krishna Test Present Hemoglobin 8.1 L Carboxyhemoglobin 1.9 O2 Delivery Device Ventilator Vent Setting Cpap+5/ps+5 Inspired O2 35 Critical Value No Sodium Potassium Chloride Carbon Dioxide Anion Gap BUN Creatinine Estimated GFR POC Glucose 181 H 148 H Random Glucose Calcium Phosphorus Magnesium Total Bilirubin Direct Bilirubin Indirect Bilirubin AST ALT Alkaline Phosphatase Total Protein Albumin 01/19/18 01/19/18 01/19/18 02:09 05:46 05:46 WBC 5.0 RBC 2.52 L Hgb 7.9 L Hct 22.7 L MCV 89.8 MCH 31.2 MCHC 34.7 RDW 16.2 Plt Count 140 L MPV 8.9 Puncture Site Patient Temperature O2 Saturation ABG pH ABG pCO2 ABG pO2 ABG HCO3 ABG O2 Content ABG Base Excess ABG Methemoglobin Krishna Test Hemoglobin Carboxyhemoglobin O2 Delivery Device Vent Setting Inspired O2 Critical Value Sodium 143 Potassium 4.4 Chloride 103 Carbon Dioxide 34.7 H Anion Gap 5 BUN 58 H Creatinine 1.13 Estimated GFR 62 L POC Glucose 190 H Random Glucose 148 H Calcium 8.2 L Phosphorus 3.4 Magnesium 2.4 Total Bilirubin 0.5 Direct Bilirubin 0.3 H Indirect Bilirubin 0.2 AST 25 ALT 29 Alkaline Phosphatase 185 H Total Protein 5.6 L Albumin 2.1 L 01/19/18 01/19/18 08:59 11:52 WBC RBC Hgb Hct MCV MCH MCHC RDW Plt Count MPV Puncture Site Right radial Patient Temperature 98.6 O2 Saturation 88 L* ABG pH 7.45 H ABG pCO2 49 H ABG pO2 61 ABG HCO3 33 H ABG O2 Content 10.8 L ABG Base Excess 9.0 H ABG Methemoglobin 1.2 Krishna Test Present Hemoglobin 8.7 L Carboxyhemoglobin 1.7 O2 Delivery Device Ventilator Vent Setting Cpap: 5/+5/35% Inspired O2 35 Critical Value Yes Sodium Potassium Chloride Carbon Dioxide Anion Gap BUN Creatinine Estimated GFR POC Glucose 209 H Random Glucose Calcium Phosphorus Magnesium Total Bilirubin Direct Bilirubin Indirect Bilirubin AST ALT Alkaline Phosphatase Total Protein Albumin Microbiology 01/14/18 11:15 Bronchial Washings - Bronchial Fungal Smear - Final No fungal elements seen 01/14/18 11:15 Bronchial Washings - Bronchial Fungal Culture - Preliminary Mold species-ID to follow Assessment and Plan - Assessment (1) Respiratory failure requiring intubation Code(s): J96.90 - Respiratory failure, unspecified, unspecified whether with hypoxia or hypercapnia Status: Acute (2) Pneumonia Code(s): J18.9 - Pneumonia, unspecified organism Status: Acute (3) CHF (congestive heart failure), NYHA class II Code(s): I50.9 - Heart failure, unspecified Status: Acute (4) CHF (congestive heart failure) Code(s): I50.9 - Heart failure, unspecified Status: Acute (5) Respiratory abnormalities Code(s): J98.9 - Respiratory disorder, unspecified Status: Acute (6) Emphysema of lung Code(s): J43.9 - Emphysema, unspecified Status: Acute (7) Borderline diabetes mellitus Code(s): R73.03 - Prediabetes Status: Acute (8) Fracture, intertrochanteric, left femur Code(s): S72.142A - Displaced intertrochanteric fracture of left femur, initial encounter for closed fracture Status: Acute (9) Nutrition, metabolism, and development symptoms Code(s): R63.8 - Other symptoms and signs concerning food and fluid intake Status: Acute - Plan RECOMMENDATIONS: 1. Ventilator support and PSV to 5 CPAP +5, and FIO2 to 35 % all day up to 12 Hrs. 2. Bronchodilators ,DuoNeb q.6 hr. 3. D/W family here. 4. Respiratory Parameters today 5. Continue with Lasix 40 mg daily. 6. Cont antibiotics per ID. 7. CXR in am. 8. Prednisone 10 mg BID 9. Extubate in am if stable. 10.PT and OT Evaluation
--- NOTE | 2018-01-19 12:57 | P.PNCC ---
Subjective Subjective Remarks/Hospital Course: 82-year-old male with past medical history of COPD and CHF presents for an evaluation of shortness of breath and hypoxemia worsening over past few days. The nebulizer treatments helped initially however today there were not helpful. EMS reports on scene the O2 sat was in the 80s. He received high flow oxygen and nebulized albuterol in route here. His blood pressure initially in the emergency department was 200/100 however trended down to about 160/90. BiPAP was started in the emergency department with improvement in his O2 sat that has trended towards the high 90s with 100% FiO2 on BiPAP. Shortly after transfer to ICU the patient continues to to be more hypoxemic and restless requiring endotracheal intubation and mechanical ventilation. 12/20: intubated and sedated. still hypercarbic with [id number] respiratory acidosis. family unhappy that patient was intubated: they insisted last night on being a Full Code, but apparently the daughter required that she be notified of exactly what SpO2 the patient was at, and it had to reach a certain low level before she would be ok with intubation. Per overnight records , patient presented with severe respiratory distress, and family reports that EMS stated patient "wouldn't make it all the way to [facility]" due to his pulmonary instability. This morning, hypoxia is somewhat improved. remains on broad spectrum antibiotics. I explained to family that this is likely a new pneumonia causing respiratory failure. I also explained that after recent hip fracture and recent prolonged hospitalization, his baseline end-stage lung disease and NYHA Class IV symptoms are likely to worsen, and this may be worsening of his overall end-stage disease processes. Family continues to state that our facility caused his lung failure during the prior hospitalization. They are also concerned about his poor peripheral perfusion and oliguria, which concerns me also: I explained that his heart failure could not tolerate significant amount of iv fluids, and we have already given him 1500mL over the last 12 hours, but they have insisted on additional iv fluids. I explained he had severe sepsis and the mortality associated with this. Daughter continues to remind me that her father "is coming home with her and getting better" as she has stated multiple times in the past. 12/21: no improvements. remains intubated. clinically becoming volume overloaded - will be forced to start diuresis. 12/22: mental status slightly improved. still failing weaning attempts. 12/23: Afebrile. Currently on PSV trial 15/7 at 45%. Discussed with and daughter at bedside. Chest x-ray revealed ET tube at [place]. Retracted 1 cm. Tolerating tube feeds with family requested 40 cc an hour. 12/24: Afebrile. Currently CPAP trial FiO2 at 45%. Tolerating tube feeds if family requested 40 cc an hour. Receiving morphine 1-2 mg every 4 hours as needed pain. 12/25 No events overnight remains intubated off sedation. Tolerated CPAP for several hrs yesterday. Afebrile. 12/26 No events overnight. Patient tolerated CPAP for most of day yesterday. Awake and alert follows commands, on no sedation. 12/27 Patient was extubated yesterday on 4L oxygen. Awake. Afebrile. 12/28 No events overnight. Remains on 4L oxygen. Awake and alert. 12/30: RECONSULT NOTE: reconsulted as rapid response for hypoxia. per the family , patient had desaturation episode to the 60s, placed on NRB. family insisted on transfer back to ICU. when I saw patient on arrival to ICU, patient spo2 99% on NRB. pao2 on NRB was 150. patient is well-known to me with baseline spo2 82- 86% on 5L o2 by NC at home. family states he has another pneumonia. on my review of CXR and lab evidence, unclear if this is new pneumonia vs. old chronic lung disease. patient denies sob or new symptoms. 12/31: no changes. remains on simple mask at 6LPM. not in distress. family does not want to leave ICU and wants to continue ICU care for the remainder of the hospitalization. long discussion about needing to de-escalate level of care prior to hospital discharge. 01/07 Reconsult for Resp. distress. Patient was placed on BIPAP with 60% FIO2. ABG this morning showed some improvements in his resp acidosis with PH:7.34, CO2 72 from 82. CXR from 16/[address] chest today. 01/08 Patient was intubated this morning for worsening resp acidosis. CT chest yesterday showed pneumonia/aspiration. On Diprivan for sedation. Afebrile. 01/09 Patient is intubated and on low dose Diprivan drip. Afebrile. 01/10 Patient remains intubated. Awake, tolerated CPAP for most of day yesterday. Afebrile. 01/11 No events overnight. Awake and alert off sedation, tolerated CPAP all day yesterday. Afebrile. 01/12: Family concern regarding testicular swelling. I went over available laboratories. Will check hepatitis C genotype and PCR viral load today. We will also check C. difficile per family request. Patient tolerated CPAP yesterday for around 10 hours. Has been on CPAP since 8 AM this morning. FiO2 35%. Subjective: 01/13: Afebrile. Remains on CPAP trial 16/08 at 35%. All x-rays pending. Long discussion with family at bedside and via telephone. Plan for bronchoscopy tomorrow if okay with 2 other daughters with pulmonology. 01/14: remains intubated, sedated. plan for bronch today with pulmonary at bedside. failing SBTs. 01/15: intubated and sedated. will attempt SBT today. discussion yesterday with family: if he passes SBT, will proceed with extubation, but high risk for decompensation and re-intubation. if he gets reintubated again, will need trach/ peg to continue forward and aggressive care. 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 01/16: Remains orally intubated on mechanical ventilation. ABG done today borderline. Resumed Lasix. GI started spironolactone to mobilize fluid. 01/17: Remains orally intubated on mechanical ventilation. Daily CPAP trials 01/18: Awake, alert, orally intubated on mechanical ventilation. Daily CPAP trials ongoing. Continues to have diarrhea. 01/19: Drowsy, easily arousable, orally intubated on mechanical ventilation. Daily CPAP trials with respiratory rate 28 tidal volumes 250s-300. Objective Vital Signs / I&O: Vital Signs 01/18/18 13:00 01/18/18 14:00 01/18/18 14:38 Temperature Pulse Rate 97 H 93 H 93 H Respiratory Rate 28 H 27 H 33 H Blood Pressure 128/61 128/60 137/62 Pulse Oximetry 100 95 96 01/18/18 15:00 01/18/18 15:06 01/18/18 16:00 Temperature 98.6 F Pulse Rate 90 93 H 91 H Respiratory Rate 34 H 35 H 31 H Blood Pressure 130/58 L 132/59 L Pulse Oximetry 84 L 97 97 01/18/18 16:05 01/18/18 16:15 01/18/18 17:00 Temperature Pulse Rate 90 89 Respiratory Rate 34 H 29 H 31 H Blood Pressure 121/56 L 126/60 Pulse Oximetry 98 98 96 01/18/18 18:00 01/18/18 19:00 01/18/18 20:00 Temperature 97.8 F Pulse Rate 87 85 89 Respiratory Rate 30 H 24 29 H Blood Pressure 124/60 135/60 135/60 Pulse Oximetry 100 98 84 L 01/18/18 20:42 01/18/18 21:00 01/18/18 22:00 Temperature Pulse Rate 89 85 82 Respiratory Rate 23 25 H 21 Blood Pressure 120/59 L 116/56 L Pulse Oximetry 98 98 94 L 01/18/18 22:32 01/18/18 23:00 01/18/18 23:22 Temperature Pulse Rate 84 83 82 Respiratory Rate 25 H 23 17 Blood Pressure 116/56 L 114/58 L Pulse Oximetry 93 L 93 L 95 01/19/18 00:00 01/19/18 01:00 01/19/18 02:00 Temperature 97.4 F L Pulse Rate 84 91 H 89 Respiratory Rate 17 18 19 Blood Pressure 107/53 L 115/60 114/54 L Pulse Oximetry 94 L 96 96 01/19/18 03:00 01/19/18 03:45 01/19/18 04:00 Temperature Pulse Rate 84 81 82 Respiratory Rate 25 H 16 33 H Blood Pressure 119/55 L 111/53 L Pulse Oximetry 95 97 01/19/18 04:36 01/19/18 05:00 01/19/18 06:00 Temperature Pulse Rate 80 81 Respiratory Rate 16 17 19 Blood Pressure 112/53 L 103/54 L Pulse Oximetry 96 94 L 94 L 01/19/18 07:00 01/19/18 07:27 01/19/18 07:31 Temperature Pulse Rate 81 81 Respiratory Rate 16 19 25 H Blood Pressure 113/56 L Pulse Oximetry 96 100 01/19/18 08:00 01/19/18 09:00 01/19/18 11:26 Temperature 98 F Pulse Rate 84 92 H 91 H Respiratory Rate 15 30 H 31 H Blood Pressure 131/61 120/57 L Pulse Oximetry 95 92 L 01/19/18 11:27 Temperature Pulse Rate Respiratory Rate 32 H Blood Pressure Pulse Oximetry 95 Intake & Output 01/18/18 01/19/18 01/19/18 18:59 06:59 18:59 Intake Total 560 / 560 885 / 885 50 / 50 Output Total 1450 / 1450 1200 / 1200 Balance -890 / -890 -315 / -315 50 / 50 Weight 68 kg Intake: IV 200 / 200 300 / 300 50 / 50 Zosyn 3.375 GM Premix 50 ML @ 100 / 100 100 / 100 50 / 50 100 mls/hr IV.SIG Q6H NOAH Rx#: [id number] KCl 20 mEq Premix Inj 20 meq In 100 / 100 100 ml @ 50 mls/hr IV.SIG Q2H PRN Rx#:[id number] VFend Inj 280 MG In NS Inj 100 200 / 200 ML @ 100 mls/hr IV.SIG Q12H NOAH Rx#:[id number] Tube Feeding 0 / 0 385 / 385 Water Bolus Amount 360 / 360 200 / 200 Output: Urine Amount (Catheter) 1450 / 1450 1200 / 1200 Condom 1450 / 1450 1200 / 1200 Other: Date of Last Bowel Movement 01/18/18 01/19/18 01/18/18 # Incontinent Bowel Movements 1 3 Result Diagrams: 01/19/18 05:46 01/19/18 05:46 Objective Remarks: GENERAL: 82-year-old male lying in bed orotracheally intubated HEENT: Normocephalic. Atraumatic. Positive pallor, no icterus. Mucous membranes are moist NECK: Trachea is midline. No JVD, orally intubated with ETT 7.5cm CHEST: Orally intubated on mechanical ventilation, B/l equal air entry, diminished at bases, scattered rhonchi CARDIOVASCULAR: Normal rate, regular rhythm. ABDOMEN: Soft, nontender, nondistended. No guarding. MUSCULOSKELETAL: Pulses 2+. significant evidence of scrotal edema. 1+ peripheral edema. No mottling NEUROLOGICAL: arousable on the ventilator. Moves all 4 extremities spontaneously. Assessment and Plan - Assessment and Plan Plan: Neuro/psych: Acute metabolic encephalopathy- resolved Off sedation. 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 SBT daily. Will likely need trach/PEG tube placement. Patient is at high risk of reintubation if gets extubated as this is his second intubation Continue prednisone 10mg BID Pulmonary is following- Dr. Lazcano CT chest: Postsurgical features of suspected previous left-sided lobectomy with volume loss and mediastinal shift to the left. Bulky left-sided pleural plaques with chronic appearing small to moderate sized loculated left pleural effusion. Dense airspace consolidation in the superior segment of the right lower lobe with patchy interstitial and groundglass opacities throughout the right lower lobe. 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 Normal left ventricular size. Wall thickness is normal. No regional wall motion abnormalities are present. Diffuse calcification of the aortic valve but no significant stenosis. There is mild to moderate tricuspid valve regurgitation. The estimated pulmonary arterial pressure is 76.9 mmHg with severe pulmonary hypertension. Previously on furosemide 40 mg by tube daily. Restarted Lasix 40 mg IV every 12 hourly on 01/16. GI started spironolactone on 01/16 As needed labetalol and Nitropaste for hypertension Renal/: History of nephrolithiasis Monitor renal function, I/O's, electrolytes replacement per protocol. Continue Lasix 40 mg IV every 12 hourly. Spironolactone daily started 01/16 FEN/GI: Severe acute protein calorie malnutrition Hep C IgG positive HyperNatremia On tube feeds- Glucerna 1.5 @45ml/hr Lansoprazole for GI prophylaxis Docusate sodium/senna 1 tablet twice daily for bowel regimen GI is following US abdomen: Limited exam due to obscuration by bowel gas.Simple left renal cyst. small ascites in the right upper quadrant. Positive HepC IgG hepatitis C genotype and PCR viral load negative ID: Healthcare associated pneumonia Severe sepsis- present on admission Normocytic anemia Thrombocytopenia Abx per ID (piperacillin/tazobactam) Voriconazole IV started on 01/16 per ID BAL cultures growing Aspergillus Follow up on sputum 01/08 normal resp vaishnavi Sputum culture 12/20-shea resp vaishnavi Blood cultures 12/19 no growth Urine UA with urine culture 12/20-NGTD Negative Legionella and pneumococcal urinary antigens Endocrine: Hyperglycemia of critical illness -- On medium SSI , continue insulin detemir [id number] Heme: Normocytic anemia Thrombocytopenia Monitor CBC, Hep PLT ab negative MSK:: History of left IT nailing 11/14 Vitamin D deficiency PT evaluate and treat Prophylaxis: GI Prophylaxis Lansoprazole DVT Prophylaxis -- SCDs - Enoxaparin held for anemia, thrombocytopenia and Hemoccult positive Lines: Peripheral IVs. Family considering PICC line Discussed with ID, discussed with Dr. Guerrier, discussed with palliative care. Discussed current clinical status with patient's family including plan of care and they voiced understanding and were agreeable.
[2018-01-19] MEDS ORDERED: VORICONAZOLE IV.SIG SCH (14:00)
[2018-01-19] MEDS ORDERED: SODIUM CHLOR 0.9% IV.SIG SCH (14:00)
--- NOTE | 2018-01-19 14:03 | P.PNWCN ---
Wound Care Nurse Consult Description: Frantz notification of patient family request for re-evaluation of buttocks x2 Recommendation: 1. Reposition patient from left to right sides Q2H 2. Nutrition consult for wounds 3. Obtain and place patient on low air loss mattress ordered 4. Use disposable moisture wicking underpad with air mattress. Please no cotton pull pads. 5..Please apply Ritters cream to affected area BID or as needed for incontinence.
--- NOTE | 2018-01-19 15:23 | P.PNWCN ---
Wound Care Nurse Consult Description: Frantz notification of patient family request for re-evaluation of buttocks Communicated with: Karen live ammunition inspector [facility] and patient's family Recommendation: 1. Reposition patient from left to right sides Q2H 2. Nutrition consult for wounds 3. Obtain and place patient on low air loss mattress ordered 4. Use disposable moisture wicking underpad with air mattress. Please no cotton pull pads. 5.Please apply Ritters cream to open wounds BID apply Cavilon spray to periwound areas for moisture.BID and PRN, Leave open to air. Additional information: Patient seen on [facility] for follow up of moisture related breakdown per family's request. Full note to follow. Wound/Pressure Injury - Wound Left Buttocks Wound Staging: Stage III Wound Assessment: Ongoing Wound Type: Pressure Injury Is This a Chronic Wound: No Requested from Provider a Wound Care Consult: Yes (Wound crae following patient) Length (cm): 4 (cm) Width (cm): 4.2 (cm) Depth (cm): 0.1 (~0.1cm) Wound Bed Appearance: [place], Yellow Wound Bed Appearance: Wound bed noted with ~50% pink tissue and ~50% yellow tissue Surrounding Tissue Appearance: [place] Surrounding Tissue Temperature: Warm Drainage Description: Serosanguinous Drainage Amount: Scant Drainage Odor: No Odor Dressing Status: Open to Air Cleansing Solution: Saline Topical: Cavilone spray to periwound and Ritters cream to wound bed Wound Margin Description: Well defined and open Right Buttocks Wound Staging: Stage III Wound Type: Pressure Injury Length (cm): 0.6 (cm) Width (cm): 0.6 (cm) Depth (cm): 0.1 (~0.1cm) Wound Bed Appearance: [place], Yellow Wound Bed Appearance: Wound to R buttock is small with a round shape with ~50% pink tissue and ~50% yellow tissue Surrounding Tissue Appearance: [place] Surrounding Tissue Temperature: Warm Drainage Description: Serosanguinous Drainage Amount: Scant Drainage Odor: No Odor Dressing Status: Open to Air Cleansing Solution: Saline Topical: Cavilon spray to periwound and Ritters cream to wound bed Wound Margin Description: Wound margins are even and well defined Right medial Upper Buttocks Wound Assessment: Ongoing Wound Type: Traumatic Wound Is This a Chronic Wound: No Requested from Provider a Wound Care Consult: Yes (Wound care is following ) Length (cm): 1 (cm) Width (cm): 2.5 (cm) Depth (cm): 0.1 (cm) Wound Bed Appearance: [place], Yellow Wound Bed Appearance: Wound bed presents with ~60% pink tissue and ~40% yellow tissue Surrounding Tissue Appearance: [place] Surrounding Tissue Temperature: Warm Drainage Description: Serosanguinous Drainage Amount: Scant Drainage Odor: No Odor Dressing Status: Open to Air Cleansing Solution: Saline Topical: Cavilone spray applied to periwound, Ritters cream was applied to wound bed Wound Margin Description: Wound margins are jagged, uneven and well defined - Additional Information Patient seen on 5th floor [facility] for follow up of previously noted noted moisture related skin damage at patient family's request. Family reports that diarrhea has worsened and family fears wounds have gotten worse. Patient is laying on an Airapy bed with turn sheet, two ultrasorb pads stacked underneath him and third ultra sorb staggered further up under patient. Patient is also laying with a pillow under each buttock. Family admits to placing pillows like this in an attempt to make the patient more comfortable.Patient was turned with the assistance of family, Charene live ammunition inspector, and typewriter operator automatic to reveal three open wounds to bilateral buttocks. L buttock wound is the largest wound and now presents as a stage 3 pressure injury. R buttock small wound also presents as a stage 3 pressure injury. Both of wounds to R and L buttock are noted with more defined even wound margins, near a amadeo prominence. These wounds appear to have mixed etiology of moisture, pressure and friction. R upper buttock wound has jagged uneven wound margins suggesting moisture and friction etiology. Cleansed all wounds with normal saline and patted dry. Applied Cavilon skin barrier film to periwound and then applied Ritters cream to open wound beds. Wounds were left open to air due to constant loose stools. Family was educated on the low airloss function of bed patient is laying on. Family instructed to avoid placing to many layers under patient, because the therapeutic low air loss function of the bed will not work, and additional layers add pressure under patient. Family verbalizes understanding.
--- NOTE | 2018-01-19 18:57 | P.PNADD ---
Addendum to Inpatient Note Additional information: contacted by RN Pts family concerned about increasing lethargy after Vfend started - dc voricaonzol - start micafungin
[2018-01-20] MEDS: Micafungin Inj 150 MG in Sodium Chlor 0.9% Inj 100 ML IV.SIG SCH ×2 (03:46→20:03)
[2018-01-20] MEDS: Oral Hygiene Kit OROPHARYNG SCH ×4 (03:47→16:40)
[2018-01-20] MEDS: Insulin NovoLOG Aspart Correctional Sugar Inj SQ SCH ×6 (03:47→20:04)
--- NOTE | 2018-01-20 04:37 | XR ---
EXAM DATE: 01/20/2018 12:00 AM EDT AGE/SEX: 82 years / Male INDICATIONS: Short of breath. CLINICAL DATA: This is the patient's subsequent encounter. Patient reports that signs and symptoms h ave been present for 1 month and indicates a pain score of 0/10. MEDICAL/SURGICAL HISTORY: Chronic obstructive pulmonary disease. Congestive heart failure. Di abetes mellitus type II. Lobectomy. COMPARISON: [facility], CHEST 1V SINGLE AP, 01/17/2018. C, CHEST 1V SINGLE AP, 01/08/2018. [facility], [address] 1V SINGLE AP, 01/14/2018. C, CHEST 1V SINGLE AP, 01/14/2018. . FINDINGS: The ET tube and NG tube are well placed. The heart size is normal. This increased density at the late ral and upper left chest likely related to a large effusion. There is some pleural density seen over the right upper lateral chest. There is interstitial disease seen throughout. There appears to be paty cification left diaphragmatic surface. There appear to be calcific densities projecting over the prox imal left humerus. CONCLUSION: Diffuse increased interstitial markings related to either underlying process such as edema or underly ing interstitial disease. Suspected large left effusion. Extrapleural density seen over the right upper chest which is stable. Electronically signed by: Arvin Nguyễn MD 01/20/2018 4:36 AM EDT
[2018-01-20 07:20] LABS: Hematocrit 22.8 % (39.0-51.0); Hemoglobin 7.9 gm/dL (13.0-17.0); Mean Corpuscular HGB Conc 34.6 % (32.0-36.0); Mean Corpuscular Hemoglobin 31.2 pg (27.0-34.0); Mean Corpuscular Volume 90.2 fL (80.0-100.0); Mean Platelet Volume 8.7 fL (7.0-11.0); Platelet Count 158 th/mm3 (150-450); Red Blood Count 2.53 mil/mm3 (4.50-5.90); Red Cell Distribution Width 15.9 % (11.6-17.2); White Blood Count 5.8 th/mm3 (4.0-11.0)
[2018-01-20 07:34] LABS: Magnesium 2.5 mg/dL (1.5-2.5); Phosphorus 3.7 mg/dL (2.5-4.9)
[2018-01-20 09:00] LABS: Albumin 2.3 g/dL (3.4-5.0); Anion Gap 7 meq/L (5-15); Aspartate Aminotransferase 25 U/L (15-37); Blood Urea Nitrogen 57 mg/dL (7-18); Calcium 8.1 mg/dL (8.5-10.1); Carbon Dioxide 34.4 meq/L (21.0-32.0); Chloride 101 meq/L (98-107); Glomerular Filtration Rate 56 mL/min (>89); Glucose,Random 166 mg/dL (74-106); Potassium 4.4 meq/L (3.5-5.1); Sodium 142 meq/L (136-145)
[2018-01-20 09:14] LABS: Alanine Aminotransferase 30 U/L (12-78); Alkaline Phosphatase 207 U/L (45-117)
[2018-01-20] MEDS: Chlorhexidine 0.12% Oral Kit 15 ML UDC OROPHARYNG SCH ×2 (09:27→20:04)
[2018-01-20] MEDS: rifAXIMin 550 MG Tablet PO SCH (09:28)
[2018-01-20] MEDS: Spironolactone 25 MG Tablet PO SCH (09:30)
[2018-01-20] MEDS: Bismuth Subsalicylate Susp 240 ML Bottle NG/OG SCH ×3 (09:32→18:42)
[2018-01-20] MEDS: Insulin Detemir Inj 1,000 UNIT/10 ML Vial SQ SCH ×2 (09:32→20:05)
[2018-01-20] MEDS: predniSONE 10 MG Tablet PO SCH (09:32)
[2018-01-20] MEDS: Carboxymethylcellulose 0.5% Opth Drops 15 ML Bottle EACH EYE SCH ×2 (09:34→20:05)
[2018-01-20] MEDS: Budesonide-Formoterol 160/4.5 MCG 6 GM Inhaler INH SCH ×2 (09:34→20:05)
[2018-01-20 11:52] LABS: ABG Base Excess 10.2 mmol/L (-2-2); ABG PCO2 50 mmHg (38-42); ABG PO2 66 mmHG (61-120)
--- NOTE | 2018-01-20 12:56 | P.PN ---
Subjective Interval history: Alert and on CPAP 5/5 this AM. he is not SOB. respiratory parameters were Borderline. D/W Family here that a extubation trial can be done and BIPAP can be used . Physical Exam Vital signs: Vital Signs 01/19/18 13:00 01/19/18 13:25 01/19/18 14:00 Temperature Pulse Rate 92 H 92 H 93 H Respiratory Rate 26 H Blood Pressure 137/60 143/63 H Pulse Oximetry 93 L 95 01/19/18 15:00 01/19/18 16:00 01/19/18 16:04 Temperature Pulse Rate 100 H 94 H 94 H Respiratory Rate 36 H 20 17 Blood Pressure 131/60 116/56 L Pulse Oximetry 91 L 94 L 01/19/18 16:05 01/19/18 18:00 01/19/18 19:00 Temperature Pulse Rate 84 91 H Respiratory Rate 18 22 Blood Pressure 122/56 L Pulse Oximetry 95 96 01/19/18 20:00 01/19/18 20:49 01/19/18 21:00 Temperature 98.7 F Pulse Rate 90 91 H 91 H Respiratory Rate 17 22 23 Blood Pressure 139/64 115/54 L Pulse Oximetry 96 98 97 01/19/18 22:00 01/19/18 23:00 01/19/18 23:25 Temperature Pulse Rate 92 H 87 96 H Respiratory Rate 22 22 16 Blood Pressure 126/58 L 116/58 L Pulse Oximetry 97 95 95 01/20/18 00:00 01/20/18 01:00 01/20/18 02:00 Temperature 97.9 F Pulse Rate 85 86 86 Respiratory Rate 25 H 20 25 H Blood Pressure 117/57 L 119/58 L 124/65 Pulse Oximetry 96 95 97 01/20/18 03:00 01/20/18 03:44 01/20/18 07:00 Temperature Pulse Rate 82 85 96 H Respiratory Rate 23 25 H 35 H Blood Pressure 114/55 L Pulse Oximetry 96 100 01/20/18 08:00 01/20/18 08:18 01/20/18 10:00 Temperature 98.2 F Pulse Rate 96 H 94 H Respiratory Rate 22 31 H Blood Pressure 118/56 L Pulse Oximetry 97 94 L 01/20/18 11:00 01/20/18 11:39 Temperature Pulse Rate 91 H Respiratory Rate 33 H 33 H Blood Pressure Pulse Oximetry 92 L Intake & Output 10/23/18 10/24/18 10/24/18 18:59 06:59 18:59 Intake Total 50 / 50 595 / 595 Output Total 1500 / 1500 950 / 950 Balance -1450 / -1450 -355 / -355 Weight 68 kg Intake: IV 50 / 50 150 / 150 Zosyn 3.375 GM Premix 50 ML @ 50 / 50 50 / 50 100 mls/hr IV.SIG Q6H NOAH Rx#: [id number] VFend Inj 280 MG In NS Inj 100 100 / 100 ML @ 100 mls/hr IV.SIG Q12H NOAH Rx#:[id number] Tube Feeding 295 / 295 Water Bolus Amount 150 / 150 Output: Urine Amount (Catheter) 1500 / 1500 950 / 950 Condom 1500 / 1500 950 / 950 Other: Date of Last Bowel Movement 01/18/18 01/20/18 01/20/18 # Incontinent Bowel Movements 3 Narrative: General:Elderly W/m , Awake intubated and in no distress. HEENT:PERRL. Throat clear .ET tube is in. Cardiovascular:Regular Rhythm, S1 S2 ,no murmur Respiratory : Few Basal crackles and bilateral wheezes and decreased breath sounds at left base. Abdomen: soft, nontender, positive bowel sounds. No Mass. Extremities: No edema , of lower extremities. Neuro:Alert and moves extremities. No Focal deficits. - Urinary Catheter Management Straight Cath placed during this visit: yes, but has since been removed by the nurse Reason for continuing: Not indwelling catheter Insertion date: 12/23/17 Insertion time: 01:00 Removal date: 12/22/17 Removal time: 01:00 Condom Cath placed during this visit: no Results - Labs CBC & Chem 7: 01/20/18 05:44 01/20/18 05:54 Laboratory Results - last 24 hr 01/19/18 01/20/18 01/20/18 20:04 02:10 05:44 WBC 5.8 RBC 2.53 L Hgb 7.9 L Hct 22.8 L MCV 90.2 MCH 31.2 MCHC 34.6 RDW 15.9 Plt Count 158 MPV 8.7 Puncture Site Patient Temperature O2 Saturation ABG pH ABG pCO2 ABG pO2 ABG HCO3 ABG O2 Content ABG Base Excess ABG Methemoglobin Krishna Test Hemoglobin Carboxyhemoglobin O2 Delivery Device Vent Setting Inspired O2 Critical Value Sodium Potassium Chloride Carbon Dioxide Anion Gap BUN Creatinine Estimated GFR POC Glucose 269 H 158 H Random Glucose Calcium Phosphorus Magnesium Total Bilirubin AST ALT Alkaline Phosphatase Total Protein Albumin 01/20/18 01/20/18 01/20/18 05:54 05:54 11:36 WBC RBC Hgb Hct MCV MCH MCHC RDW Plt Count MPV Puncture Site Right radial Patient Temperature 98.6 O2 Saturation 90 ABG pH 7.46 H ABG pCO2 50 H ABG pO2 66 ABG HCO3 35 H ABG O2 Content 11.0 L ABG Base Excess 10.2 H ABG Methemoglobin 1.2 Krishna Test Present Hemoglobin 8.6 L Carboxyhemoglobin 1.7 O2 Delivery Device Ventilator Vent Setting Cpap+5/ps+5 Inspired O2 30 Critical Value No Sodium 142 Potassium 4.4 Chloride 101 Carbon Dioxide 34.4 H Anion Gap 7 BUN 57 H Creatinine 1.23 Estimated GFR 56 L POC Glucose Random Glucose 166 H Calcium 8.1 L Phosphorus 3.7 Magnesium 2.5 Total Bilirubin 0.4 AST 25 ALT 30 Alkaline Phosphatase 207 H Total Protein 6.0 L Albumin 2.3 L Microbiology 01/14/18 11:15 Bronchial Washings - Bronchial Fungal Smear - Final No fungal elements seen 01/14/18 11:15 Bronchial Washings - Bronchial Fungal Culture - Preliminary Mold species-ID to follow - Imaging Impressions Chest X-Ray 01/20/18 00:00 CONCLUSION: Diffuse increased interstitial markings related to either underlying process such as edema or underlying interstitial disease. Suspected large left effusion. Extrapleural density seen over the right upper chest which is stable. Assessment and Plan - Assessment (1) Respiratory failure requiring intubation Code(s): J96.90 - Respiratory failure, unspecified, unspecified whether with hypoxia or hypercapnia Status: Acute (2) Pneumonia Code(s): J18.9 - Pneumonia, unspecified organism Status: Acute (3) CHF (congestive heart failure), NYHA class II Code(s): I50.9 - Heart failure, unspecified Status: Acute (4) CHF (congestive heart failure) Code(s): I50.9 - Heart failure, unspecified Status: Acute (5) Respiratory abnormalities Code(s): J98.9 - Respiratory disorder, unspecified Status: Acute (6) Emphysema of lung Code(s): J43.9 - Emphysema, unspecified Status: Acute (7) Borderline diabetes mellitus Code(s): R73.03 - Prediabetes Status: Acute (8) Fracture, intertrochanteric, left femur Code(s): S72.142A - Displaced intertrochanteric fracture of left femur, initial encounter for closed fracture Status: Acute (9) Nutrition, metabolism, and development symptoms Code(s): R63.8 - Other symptoms and signs concerning food and fluid intake Status: Acute - Plan RECOMMENDATIONS: 1. Ventilator support and PSV to 5 CPAP +5, and FIO2 to 35 % . 2. Bronchodilators ,DuoNeb q.6 hr. 3. D/W family and Dr Richards here.They are Agreeable 4. Respiratory Parameters today and Extubate if stable. 5. Continue with Lasix 40 mg daily. 6. Cont antibiotics per ID. 7. ABG today 8. Add Solumedrol 40 mg IV q8H 9. Could use BIPAP 12/5 CM if in distress 10.PT and OT Evaluation
[2018-01-20] MEDS ORDERED: rifAXIMin 550 MG Tablet NG/OG ONE (14:00)
[2018-01-20] MEDS: MethylPREDNISolone Sod Succinate Inj 40 MG/ML Vial IV.PUSH SCH ×2 (14:40→21:52)
--- NOTE | 2018-01-20 16:58 | P.PNCC ---
Subjective Subjective Remarks/Hospital Course: 82-year-old male with past medical history of COPD and CHF presents for an evaluation of shortness of breath and hypoxemia worsening over past few days. The nebulizer treatments helped initially however today there were not helpful. EMS reports on scene the O2 sat was in the 80s. He received high flow oxygen and nebulized albuterol in route here. His blood pressure initially in the emergency department was 200/100 however trended down to about 160/90. BiPAP was started in the emergency department with improvement in his O2 sat that has trended towards the high 90s with 100% FiO2 on BiPAP. Shortly after transfer to ICU the patient continues to to be more hypoxemic and restless requiring endotracheal intubation and mechanical ventilation. 12/20: intubated and sedated. still hypercarbic with [id number] respiratory acidosis. family unhappy that patient was intubated: they insisted last night on being a Full Code, but apparently the daughter required that she be notified of exactly what SpO2 the patient was at, and it had to reach a certain low level before she would be ok with intubation. Per overnight records , patient presented with severe respiratory distress, and family reports that EMS stated patient "wouldn't make it all the way to [facility]" due to his pulmonary instability. This morning, hypoxia is somewhat improved. remains on broad spectrum antibiotics. I explained to family that this is likely a new pneumonia causing respiratory failure. I also explained that after recent hip fracture and recent prolonged hospitalization, his baseline end-stage lung disease and NYHA Class IV symptoms are likely to worsen, and this may be worsening of his overall end-stage disease processes. Family continues to state that our facility caused his lung failure during the prior hospitalization. They are also concerned about his poor peripheral perfusion and oliguria, which concerns me also: I explained that his heart failure could not tolerate significant amount of iv fluids, and we have already given him 1500mL over the last 12 hours, but they have insisted on additional iv fluids. I explained he had severe sepsis and the mortality associated with this. Daughter continues to remind me that her father "is coming home with her and getting better" as she has stated multiple times in the past. 12/21: no improvements. remains intubated. clinically becoming volume overloaded - will be forced to start diuresis. 12/22: mental status slightly improved. still failing weaning attempts. 12/23: Afebrile. Currently on PSV trial 15/7 at 45%. Discussed with and daughter at bedside. Chest x-ray revealed ET tube at [place]. Retracted 1 cm. Tolerating tube feeds with family requested 40 cc an hour. 12/24: Afebrile. Currently CPAP trial FiO2 at 45%. Tolerating tube feeds if family requested 40 cc an hour. Receiving morphine 1-2 mg every 4 hours as needed pain. 12/25 No events overnight remains intubated off sedation. Tolerated CPAP for several hrs yesterday. Afebrile. 12/26 No events overnight. Patient tolerated CPAP for most of day yesterday. Awake and alert follows commands, on no sedation. 12/27 Patient was extubated yesterday on 4L oxygen. Awake. Afebrile. 12/28 No events overnight. Remains on 4L oxygen. Awake and alert. 12/30: RECONSULT NOTE: reconsulted as rapid response for hypoxia. per the family , patient had desaturation episode to the 60s, placed on NRB. family insisted on transfer back to ICU. when I saw patient on arrival to ICU, patient spo2 99% on NRB. pao2 on NRB was 150. patient is well-known to me with baseline spo2 82- 86% on 5L o2 by NC at home. family states he has another pneumonia. on my review of CXR and lab evidence, unclear if this is new pneumonia vs. old chronic lung disease. patient denies sob or new symptoms. 12/31: no changes. remains on simple mask at 6LPM. not in distress. family does not want to leave ICU and wants to continue ICU care for the remainder of the hospitalization. long discussion about needing to de-escalate level of care prior to hospital discharge. 01/07 Reconsult for Resp. distress. Patient was placed on BIPAP with 60% FIO2. ABG this morning showed some improvements in his resp acidosis with PH:7.34, CO2 72 from 82. CXR from 16/[address] chest today. 01/08 Patient was intubated this morning for worsening resp acidosis. CT chest yesterday showed pneumonia/aspiration. On Diprivan for sedation. Afebrile. 01/09 Patient is intubated and on low dose Diprivan drip. Afebrile. 01/10 Patient remains intubated. Awake, tolerated CPAP for most of day yesterday. Afebrile. 01/11 No events overnight. Awake and alert off sedation, tolerated CPAP all day yesterday. Afebrile. 01/12: Family concern regarding testicular swelling. I went over available laboratories. Will check hepatitis C genotype and PCR viral load today. We will also check C. difficile per family request. Patient tolerated CPAP yesterday for around 10 hours. Has been on CPAP since 8 AM this morning. FiO2 35%. Subjective: 01/13: Afebrile. Remains on CPAP trial / at 35%. All x-rays pending. Long discussion with family at bedside and via telephone. Plan for bronchoscopy tomorrow if okay with 2 other daughters with pulmonology. 01/14: remains intubated, sedated. plan for bronch today with pulmonary at bedside. failing SBTs. 01/15: intubated and sedated. will attempt SBT today. discussion yesterday with family: if he passes SBT, will proceed with extubation, but high risk for decompensation and re-intubation. if he gets reintubated again, will need trach/ peg to continue forward and aggressive care. 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 01/16: Remains orally intubated on mechanical ventilation. ABG done today borderline. Resumed Lasix. GI started spironolactone to mobilize fluid. 01/17: Remains orally intubated on mechanical ventilation. Daily CPAP trials 01/18: Awake, alert, orally intubated on mechanical ventilation. Daily CPAP trials ongoing. Continues to have diarrhea. 01/19: Drowsy, easily arousable, orally intubated on mechanical ventilation. Daily CPAP trials with respiratory rate 28 tidal volumes 250s-300. 01/20: Awake, alert, orally intubated on mechanical ventilation at the time of my evaluation. Tolerating CPAP trials +5/+5. Respiratory rate 28-30, tidal volumes 250s-300. Discussed with Dr. Guerrier. Will proceed with extubation. Explained to family patient is high risk for intubation and that we will be using intermittent BiPAP if needed. Objective Vital Signs / I&O: Vital Signs 01/19/18 18:00 01/19/18 19:00 01/19/18 20:00 Temperature 98.7 F Pulse Rate 84 91 H 90 Respiratory Rate 22 17 Blood Pressure 122/56 L 139/64 Pulse Oximetry 96 96 01/19/18 20:49 01/19/18 21:00 01/19/18 22:00 Temperature Pulse Rate 91 H 91 H 92 H Respiratory Rate 22 23 22 Blood Pressure 115/54 L 126/58 L Pulse Oximetry 98 97 97 01/19/18 23:00 01/19/18 23:25 01/20/18 00:00 Temperature 97.9 F Pulse Rate 87 96 H 85 Respiratory Rate 22 16 25 H Blood Pressure 116/58 L 117/57 L Pulse Oximetry 95 95 96 01/20/18 01:00 01/20/18 02:00 01/20/18 03:00 Temperature Pulse Rate 86 86 82 Respiratory Rate 20 25 H 23 Blood Pressure 119/58 L 124/65 114/55 L Pulse Oximetry 95 97 96 01/20/18 03:44 01/20/18 07:00 01/20/18 08:00 Temperature 98.2 F Pulse Rate 85 96 H 96 H Respiratory Rate 25 H 35 H 22 Blood Pressure 118/56 L Pulse Oximetry 100 97 01/20/18 08:18 01/20/18 10:00 01/20/18 11:00 Temperature Pulse Rate 94 H 91 H Respiratory Rate 31 H 33 H Blood Pressure Pulse Oximetry 94 L 01/20/18 11:39 01/20/18 12:00 01/20/18 14:00 Temperature 98.2 F Pulse Rate 91 H 92 H Respiratory Rate 33 H 30 H Blood Pressure 136/60 Pulse Oximetry 92 L 89 L 01/20/18 15:00 01/20/18 16:00 Temperature Pulse Rate 90 92 H Respiratory Rate 18 Blood Pressure Pulse Oximetry Intake & Output 01/19/18 01/20/18 01/20/18 18:59 06:59 18:59 Intake Total 50 / 50 595 / 595 Output Total 1500 / 1500 950 / 950 Balance -1450 / -1450 -355 / -355 Weight 68 kg Intake: IV 50 / 50 150 / 150 Zosyn 3.375 GM Premix 50 ML @ 50 / 50 50 / 50 100 mls/hr IV.SIG Q6H NOAH Rx#: [id number] VFend Inj 280 MG In NS Inj 100 100 / 100 ML @ 100 mls/hr IV.SIG Q12H NOAH Rx#:[id number] Tube Feeding 295 / 295 Water Bolus Amount 150 / 150 Output: Urine Amount (Catheter) 1500 / 1500 950 / 950 Condom 1500 / 1500 950 / 950 Other: Date of Last Bowel Movement 01/18/18 01/20/18 01/20/18 # Incontinent Bowel Movements 3 Result Diagrams: 01/20/18 05:44 01/20/18 05:54 Objective Remarks: GENERAL: 82-year-old male lying in bed orotracheally intubated HEENT: Normocephalic. Atraumatic. Positive pallor, no icterus. Mucous membranes are moist NECK: Trachea is midline. No JVD, orally intubated with ETT 7.5cm CHEST: Orally intubated on mechanical ventilation, B/l equal air entry, diminished at bases, scattered rhonchi CARDIOVASCULAR: Normal rate, regular rhythm. ABDOMEN: Soft, nontender, nondistended. No guarding. MUSCULOSKELETAL: Pulses 2+. significant evidence of scrotal edema. 1+ peripheral edema. No mottling NEUROLOGICAL: arousable on the ventilator. Moves all 4 extremities spontaneously. Assessment and Plan - Assessment and Plan Plan: Neuro/psych: Acute metabolic encephalopathy- resolved Off sedation. 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 SBT daily. Extubated to nasal cannula on 01/20. Plan to use intermittent BiPAP as needed. patient is at high risk of reintubation. Prednisone stopped and patient switched to IV Solu-Medrol per Dr. Lazcano Pulmonary is following- Dr. Lazcano CT chest: Postsurgical features of suspected previous left-sided lobectomy with volume loss and mediastinal shift to the left. Bulky left-sided pleural plaques with chronic appearing small to moderate sized loculated left pleural effusion. Dense airspace consolidation in the superior segment of the right lower lobe with patchy interstitial and groundglass opacities throughout the right lower lobe. 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 Normal left ventricular size. Wall thickness is normal. No regional wall motion abnormalities are present. Diffuse calcification of the aortic valve but no significant stenosis. There is mild to moderate tricuspid valve regurgitation. The estimated pulmonary arterial pressure is 76.9 mmHg with severe pulmonary hypertension. Previously on furosemide 40 mg by tube daily. Restarted Lasix 40 mg IV every 12 hourly on 01/16. GI started spironolactone on 01/16 As needed labetalol and Nitropaste for hypertension Renal/: History of nephrolithiasis Monitor renal function, I/O's, electrolytes replacement per protocol. Stopped Lasix 40 mg IV every 12 hourly on 01/20 in view of prerenal azotemia. Spironolactone daily started 01/16 FEN/GI: Severe acute protein calorie malnutrition Hep C IgG positive HyperNatremia On tube feeds- Glucerna 1.5 @45ml/hr-held for extubation on 01/20 Lansoprazole for GI prophylaxis Docusate sodium/senna 1 tablet twice daily for bowel regimen GI is following US abdomen: Limited exam due to obscuration by bowel gas.Simple left renal cyst. small ascites in the right upper quadrant. Positive HepC IgG hepatitis C genotype and PCR viral load negative ID: Healthcare associated pneumonia Severe sepsis- present on admission Normocytic anemia Thrombocytopenia Abx per ID Voriconazole IV started on 01/16 per ID-changed to caspofungin on 01/19 as family concerned that it was causing lethargy. Off Zosyn currently. BAL cultures growing Aspergillus, mold Follow up on sputum 01/08 normal resp vaishnavi Sputum culture 12/20-shea resp vaishnavi Blood cultures 12/19 no growth Urine UA with urine culture 12/20-NGTD Negative Legionella and pneumococcal urinary antigens Endocrine: Hyperglycemia of critical illness -- On medium SSI , continue insulin detemir [id number] Heme: Normocytic anemia Thrombocytopenia Monitor CBC, Hep PLT ab negative MSK:: History of left IT nailing 11/14 Vitamin D deficiency PT evaluate and treat Prophylaxis: GI Prophylaxis Lansoprazole DVT Prophylaxis -- SCDs - Enoxaparin held for anemia, thrombocytopenia and Hemoccult positive Lines: Peripheral IVs. Discussed with Dr. Lambert, discussed with palliative care. Discussed current clinical status with patient's family including plan of care and they voiced understanding and were agreeable.
--- NOTE | 2018-01-20 17:52 | P.PNID ---
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 was switched to micafungin over lethargy concern much improved today no fever Now with large L effusion Antibiotics: zosyn stoppped micafungin Allergies/Adverse Reactions: Allergies No Known Allergies Allergy (Verified 12/19/17 21:39) Objective Vital Signs 01/19/18 18:00 01/19/18 19:00 01/19/18 20:00 Temperature 98.7 F Pulse Rate 84 91 H 90 Respiratory Rate 22 17 Blood Pressure 122/56 L 139/64 Pulse Oximetry 96 96 01/19/18 20:49 01/19/18 21:00 01/19/18 22:00 Temperature Pulse Rate 91 H 91 H 92 H Respiratory Rate 22 23 22 Blood Pressure 115/54 L 126/58 L Pulse Oximetry 98 97 97 01/19/18 23:00 01/19/18 23:25 01/20/18 00:00 Temperature 97.9 F Pulse Rate 87 96 H 85 Respiratory Rate 22 16 25 H Blood Pressure 116/58 L 117/57 L Pulse Oximetry 95 95 96 01/20/18 01:00 01/20/18 02:00 01/20/18 03:00 Temperature Pulse Rate 86 86 82 Respiratory Rate 20 25 H 23 Blood Pressure 119/58 L 124/65 114/55 L Pulse Oximetry 95 97 96 01/20/18 03:44 01/20/18 07:00 01/20/18 08:00 Temperature 98.2 F Pulse Rate 85 96 H 96 H Respiratory Rate 25 H 35 H 22 Blood Pressure 118/56 L Pulse Oximetry 100 97 01/20/18 08:18 01/20/18 10:00 01/20/18 11:00 Temperature Pulse Rate 94 H 91 H Respiratory Rate 31 H 33 H Blood Pressure Pulse Oximetry 94 L 01/20/18 11:39 01/20/18 12:00 01/20/18 14:00 Temperature 98.2 F Pulse Rate 91 H 92 H Respiratory Rate 33 H 30 H Blood Pressure 136/60 Pulse Oximetry 92 L 89 L 01/20/18 15:00 01/20/18 16:00 Temperature 98 F Pulse Rate 90 92 H Respiratory Rate 18 33 H Blood Pressure 136/59 L Pulse Oximetry 92 L Intake & Output 01/19/18 01/20/18 01/20/18 18:59 06:59 18:59 Intake Total 50 / 50 595 / 595 Output Total 1500 / 1500 950 / 950 Balance -1450 / -1450 -355 / -355 Weight 68 kg Intake: IV 50 / 50 150 / 150 Zosyn 3.375 GM Premix 50 ML @ 50 / 50 50 / 50 100 mls/hr IV.SIG Q6H NOAH Rx#: [id number] VFend Inj 280 MG In NS Inj 100 100 / 100 ML @ 100 mls/hr IV.SIG Q12H NOAH Rx#:[id number] Tube Feeding 295 / 295 Water Bolus Amount 150 / 150 Output: Urine Amount (Catheter) 1500 / 1500 950 / 950 Condom 1500 / 1500 950 / 950 Other: Date of Last Bowel Movement 01/18/18 01/20/18 01/20/18 # Incontinent Bowel Movements 3 01/14/18 11:15 Bronchial Washings - Bronchial Fungal Smear - Final No fungal elements seen 01/14/18 11:15 Bronchial Washings - Bronchial Fungal Culture - Preliminary Mold species-ID to follow Lab - Hematology Results 01/19/18 01/20/18 05:46 05:44 WBC 5.0 5.8 RBC 2.52 L 2.53 L Hgb 7.9 L 7.9 L Hct 22.7 L 22.8 L MCV 89.8 90.2 MCH 31.2 31.2 MCHC 34.7 34.6 RDW 16.2 15.9 Plt Count 140 L 158 MPV 8.9 8.7 Lab - Chemistry Results 01/18/18 01/19/18 01/19/18 20:23 02:09 05:46 Sodium 143 Potassium 4.4 Chloride 103 Carbon Dioxide 34.7 H Anion Gap 5 BUN 58 H Creatinine 1.13 Estimated GFR 62 L POC Glucose 148 H 190 H Random Glucose 148 H Calcium 8.2 L Phosphorus 3.4 Magnesium 2.4 Total Bilirubin 0.5 Direct Bilirubin 0.3 H Indirect Bilirubin 0.2 AST 25 ALT 29 Alkaline Phosphatase 185 H Total Protein 5.6 L Albumin 2.1 L 01/19/18 01/19/18 01/20/18 08:59 20:04 02:10 Sodium Potassium Chloride Carbon Dioxide Anion Gap BUN Creatinine Estimated GFR POC Glucose 209 H 269 H 158 H Random Glucose Calcium Phosphorus Magnesium Total Bilirubin Direct Bilirubin Indirect Bilirubin AST ALT Alkaline Phosphatase Total Protein Albumin 01/20/18 01/20/18 01/20/18 05:54 05:54 13:15 Sodium 142 Potassium 4.4 Chloride 101 Carbon Dioxide 34.4 H Anion Gap 7 BUN 57 H Creatinine 1.23 Estimated GFR 56 L POC Glucose 202 H Random Glucose 166 H Calcium 8.1 L Phosphorus 3.7 Magnesium 2.5 Total Bilirubin 0.4 Direct Bilirubin Indirect Bilirubin AST 25 ALT 30 Alkaline Phosphatase 207 H Total Protein 6.0 L Albumin 2.3 L 01/20/18 16:44 Sodium Potassium Chloride Carbon Dioxide Anion Gap BUN Creatinine Estimated GFR POC Glucose 165 H Random Glucose Calcium Phosphorus Magnesium Total Bilirubin Direct Bilirubin Indirect Bilirubin AST ALT Alkaline Phosphatase Total Protein Albumin Imaging: ITS Impressions Chest CT 01/07/18 00:00 CONCLUSION: 1. Postsurgical features of suspected previous left-sided lobectomy with volume loss and mediastinal shift to the left. 2. Bulky left-sided pleural plaques with chronic appearing small to moderate sized loculated left pleural effusion. 3. Dense airspace consolidation in the superior segment of the right lower lobe with patchy interstitial and groundglass opacities throughout the right lower lobe. Differential considerations include pneumonia and aspiration in the appropriate clinical setting. 4. Trace right-sided pleural effusion with fluid extending into the major fissure. 5. Mild coronary artery calcifications. 6. Small amount of ascites in the visualized upper abdomen. Abdomen Ultrasound 01/09/18 00:00 CONCLUSION: 1. Limited examination due to obscuration by bowel gas. 2. Simple left renal cyst. 3. Moderate amount of ascites in the right upper quadrant. Abdomen/Pelvis CT 01/13/18 00:00 CONCLUSION: 1. Patchy airspace disease right lung base and chronic loculated left pleural effusion not significantly changed since January 07. 2. Mild ascites with liver cirrhosis. 3. NG tip in stomach. Previous cholecystectomy. No bowel obstruction. 4. Multiple subacute lower right rib fractures. Venous Doppler Study 01/13/18 00:00 CONCLUSION: 1. The study is negative for lower extremity deep venous thrombosis. Abdomen X-Ray 01/15/18 00:00 CONCLUSION: Enteric tube placement as above. Chest X-Ray 01/20/18 00:00 CONCLUSION: Diffuse increased interstitial markings related to either underlying process such as edema or underlying interstitial disease. Suspected large left effusion. Extrapleural density seen over the right upper chest which is stable. Physical Exam: GENERAL: awake, alert communicates. NAD SKIN: Warm and dry. NO rash EYES: Pupils equal and round. No scleral icterus. No injection or drainage. ENT: No nasal bleeding or discharge. Mucous membranes pink and moist. NECK: Trachea midline. CARDIOVASCULAR: Regular rate and rhythm. RESPIRATORY: . few scattered rhonchi to auscultation. Breath sounds diminished bilaterally. GASTROINTESTINAL: Abdomen soft, mildly tender, mildly distended MUSCULOSKELETAL: Extremities without clubbing, cyanosis, or edema. No obvious deformities. 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 voriconazole PLAN: Voriconazole changed to micafungin over toxicity ocncerns will repeat non contrast chest CT to eval new effusion Lactinex case dw family @ b/s
[2018-01-20] MEDS: Lactobacillus Acidophilus/L. Spores Tablet PO SCH (18:42)
--- NOTE | 2018-01-20 23:54 | CT ---
EXAM DATE: 01/20/2018 8:55 PM EDT AGE/SEX: 82 years / Male INDICATIONS: Shortness of breath, evaluate pleural effusion. CLINICAL DATA: This is the patient's initial encounter. Patient reports that signs and symptoms have been present for 1 day and indicates a pain score of 0/10. MEDICAL/SURGICAL HISTORY: Chronic obstructive pulmonary disease. Diabetes. Pneumothorax. Lobecto my. RADIATION DOSE: 11.32 CTDI (mGy) [place] [facility] [place], [place] [facility] [place], [place] [facility] [place]. . TECHNIQUE: Multiple contiguous axial images were obtained through the chest without contrast. Image s were obtained in suspended respiration using multiple row detector helical technique. Using automa zohaib exposure control and adjustment of the mA and/or kV according to patient size, radiation dose was kept as low as reasonably achievable to obtain optimal diagnostic quality images. DICOM format imag e data is available electronically for review and comparison. FINDINGS: Lungs: Again noted is irregular subpleural density seen along the superior lateral right upper lung. There is irregular consolidation seen in the posterior aspect of the right lung. There are some cavi tary change seen in the lateral right lower lung measuring up to 3.3 cm. There appears to be volume loss in the left lung. There is persistent increased density seen in the posterior left perihilar reg ion. There is bronchiectasis with some material within the bronchi. Mediastinum: There is a 1.4 cm calcified lymph node in the right tracheobronchial region. Other sign ificant mediastinal adenopathy is not seen. Scattered atherosclerotic calcifications are seen at the aorta. Pleurae: There is a moderate left pleural effusion with some thickening of the pleura. There is calc ification seen at the visceral pleural surface laterally and inferiorly. There is fluid seen in the l ateral aspect of the major fissure in the posterior lateral right mid chest.. Axillae: Unremarkable. Bony Structures: Unremarkable. Miscellaneous: There is ascites seen around the liver and spleen.There is a nodular hepatic surface likely from cirrhosis. The spleen is enlarged. The patient is status post cholecystectomy. CONCLUSION: 1. Persistent areas of increased density in the subpleural region at the right apex and in the poste rior right lower lung. These are unchanged from the prior exam. These could represent areas of pneumo edilma. The chronicity of these densities is not known. There is some cavitary change in the lateral rig ht lower lung. All these findings are unchanged. Neoplasm cannot be excluded. These should be followe d to complete resolution. If these areas persists, but can be followed up with a PET FDG study. 2. Volume loss in the left chest with increased density in the left perihilar region. There is bronc hiectasis with material within the bronchi at the left lower lung. 3. Moderate left pleural effusion with thickening of the pleura and calcification of the visceral pl eura. This appearance is unchanged. 4. Suspected cirrhosis and splenomegaly seen in the upper abdomen. There is ascites seen in the uppe r abdomen. Electronically signed by: Arvin Nguyễn MD 01/20/2018 11:52 PM EDT
[2018-01-21] MEDS: Oral Hygiene Kit OROPHARYNG SCH ×4 (02:50→18:24)
[2018-01-21] MEDS: Insulin NovoLOG Aspart Correctional Sugar Inj SQ SCH ×6 (02:50→20:48)
[2018-01-21 05:16] LABS: Baso % (Auto) 0.1 % (0.0-2.0); Hematocrit 26.2 % (39.0-51.0); Hemoglobin 8.9 gm/dL (13.0-17.0); Lymph # (Auto) 0.2 th/mm3 (1.0-4.8); Lymph % (Auto) 4.6 % (9.0-44.0); Mean Corpuscular HGB Conc 33.9 % (32.0-36.0); Mean Corpuscular Hemoglobin 30.7 pg (27.0-34.0); Mean Corpuscular Volume 90.4 fL (80.0-100.0); Mean Platelet Volume 8.5 fL (7.0-11.0); Mono # (Auto) 0.1 th/mm3 (0.0-0.9); Mono % (Auto) 1.5 % (0.0-8.0); Neut # (Auto) 4.9 th/mm3 (1.8-7.7); Neut % (Auto) 93.8 % (16.0-70.0); Platelet Count 140 th/mm3 (150-450); Red Cell Distribution Width 15.8 % (11.6-17.2); White Blood Count 5.2 th/mm3 (4.0-11.0)
[2018-01-21 05:38] LABS: Alanine Aminotransferase 28 U/L (12-78); Albumin 2.5 g/dL (3.4-5.0); Anion Gap 9 meq/L (5-15); Aspartate Aminotransferase 26 U/L (15-37); Blood Urea Nitrogen 57 mg/dL (7-18); Calcium 8.7 mg/dL (8.5-10.1); Carbon Dioxide 32.7 meq/L (21.0-32.0); Chloride 101 meq/L (98-107); Glomerular Filtration Rate 68 mL/min (>89); Glucose,Random 176 mg/dL (74-106); Magnesium 2.6 mg/dL (1.5-2.5); Potassium 4.4 meq/L (3.5-5.1); Sodium 143 meq/L (136-145)
[2018-01-21 05:40] LABS: Alkaline Phosphatase 232 U/L (45-117); Total Protein 6.4 g/dL (6.4-8.2)
[2018-01-21] MEDS: MethylPREDNISolone Sod Succinate Inj 40 MG/ML Vial IV.PUSH SCH ×2 (05:56→14:52)
[2018-01-21] MEDS ORDERED: Haloperidol Inj 5 MG/ML Ampul IV.PUSH PRN (06:19)
[2018-01-21] MEDS: Spironolactone 25 MG Tablet PO SCH ×2 (08:13→09:36)
[2018-01-21] MEDS: Chlorhexidine 0.12% Oral Kit 15 ML UDC OROPHARYNG SCH ×2 (08:13→20:44)
[2018-01-21] MEDS: Lactobacillus Acidophilus/L. Spores Tablet PO SCH ×4 (08:15→18:25)
[2018-01-21] MEDS: Bismuth Subsalicylate Susp 240 ML Bottle NG/OG SCH ×4 (08:16→18:25)
[2018-01-21] MEDS: rifAXIMin 550 MG Tablet PO SCH ×3 (08:16→20:53)
[2018-01-21] MEDS: Carboxymethylcellulose 0.5% Opth Drops 15 ML Bottle EACH EYE SCH ×2 (08:18→20:47)
[2018-01-21] MEDS: Insulin Detemir Inj 1,000 UNIT/10 ML Vial SQ SCH ×2 (08:18→20:48)
[2018-01-21] MEDS: Budesonide-Formoterol 160/4.5 MCG 6 GM Inhaler INH SCH ×2 (08:19→20:47)
--- NOTE | 2018-01-21 12:30 | P.PN ---
Subjective Interval history: He is Extubated and is on a N/C O2 at 4 L. Used BIPAP last Nite. Alert and talking. Physical Exam Vital signs: Vital Signs 01/20/18 14:00 01/20/18 15:00 01/20/18 16:00 Temperature 98 F Pulse Rate 92 H 90 92 H Respiratory Rate 18 33 H Blood Pressure 136/59 L Pulse Oximetry 92 L 01/20/18 18:00 01/20/18 19:47 01/20/18 20:00 Temperature 98.2 F Pulse Rate 91 H 88 90 Respiratory Rate 30 H 33 H Blood Pressure 130/61 Pulse Oximetry 100 93 L 01/20/18 22:00 01/21/18 00:00 01/21/18 00:15 Temperature 98.5 F Pulse Rate 92 H 84 83 Respiratory Rate 22 25 H Blood Pressure 127/63 Pulse Oximetry 95 01/21/18 02:00 01/21/18 02:11 01/21/18 03:41 Temperature Pulse Rate 92 H 88 Respiratory Rate 23 Blood Pressure Pulse Oximetry 95 01/21/18 03:43 01/21/18 04:00 01/21/18 06:00 Temperature 98.5 F Pulse Rate 97 H 92 H Respiratory Rate 39 H Blood Pressure 150/91 H Pulse Oximetry 99 1 L 01/21/18 07:00 01/21/18 08:00 01/21/18 10:00 Temperature 98.3 F Pulse Rate 91 H 92 H 92 H Respiratory Rate 16 27 H Blood Pressure 147/66 H Pulse Oximetry 100 97 01/21/18 11:15 Temperature Pulse Rate 87 Respiratory Rate 17 Blood Pressure Pulse Oximetry Intake & Output 01/20/18 01/21/18 01/21/18 18:59 06:59 18:59 Intake Total 60 / 60 60 / 60 Output Total 675 / 675 800 / 800 Balance -615 / -615 -740 / -740 Weight 68 kg Intake: Tube Irrigant 60 / 60 60 / 60 Output: Urine Amount (Catheter) 675 / 675 800 / 800 Condom 675 / 675 800 / 800 Other: Date of Last Bowel Movement 01/20/18 01/20/18 01/20/18 # Incontinent Bowel Movements 6 6 Narrative: General:Elderly W/M , Awake and in no distress. HEENT:PERRL. Throat clear . Cardiovascular:Regular Rhythm, S1 S2 ,no murmur Respiratory : Few Basal crackles and bilateral wheezes and decreased breath sounds at left base. Abdomen: soft, nontender, positive bowel sounds. No Mass. Extremities: No edema , of lower extremities. Neuro:Alert and moves extremities. No Focal deficits. - Urinary Catheter Management Straight Cath placed during this visit: yes, but has since been removed by the nurse Reason for continuing: Not indwelling catheter Insertion date: 12/23/17 Insertion time: 01:00 Removal date: 12/22/17 Removal time: 01:00 Condom Cath placed during this visit: no Results - Labs CBC & Chem 7: 01/21/18 04:46 01/21/18 04:46 Laboratory Results - last 24 hr 01/20/18 01/20/18 01/21/18 13:15 16:44 00:16 WBC RBC Hgb Hct MCV MCH MCHC RDW Plt Count MPV Neut % (Auto) Lymph % (Auto) Hernando % (Auto) Eos % (Auto) Baso % (Auto) Neut # (Auto) Lymph # (Auto) Hern[place] # (Auto) Eos # (Auto) Baso # (Auto) WBC Differential Differential Comment Sodium Potassium Chloride Carbon Dioxide Anion Gap BUN Creatinine Estimated GFR POC Glucose 202 H 165 H 203 H Random Glucose Calcium Phosphorus Magnesium Total Bilirubin AST ALT Alkaline Phosphatase Total Protein Albumin 01/21/18 01/21/18 04:46 04:46 WBC 5.2 RBC 2.90 L Hgb 8.9 L Hct 26.2 L MCV 90.4 MCH 30.7 MCHC 33.9 RDW 15.8 Plt Count 140 L MPV 8.5 Neut % (Auto) 93.8 H Lymph % (Auto) 4.6 L Hernando % (Auto) 1.5 Eos % (Auto) 0.0 Baso % (Auto) 0.1 Neut # (Auto) 4.9 Lymph # (Auto) 0.2 L Hern[place] # (Auto) 0.1 Eos # (Auto) 0.0 Baso # (Auto) 0.0 WBC Differential . Differential Comment Auto diff final Sodium 143 Potassium 4.4 Chloride 101 Carbon Dioxide 32.7 H Anion Gap 9 BUN 57 H Creatinine 1.05 Estimated GFR 68 L POC Glucose Random Glucose 176 H Calcium 8.7 Phosphorus 4.0 Magnesium 2.6 H Total Bilirubin 0.6 AST 26 ALT 28 Alkaline Phosphatase 232 H Total Protein 6.4 Albumin 2.5 L - Imaging Impressions Chest CT 01/20/18 17:52 CONCLUSION: 1. Persistent areas of increased density in the subpleural region at the right apex and in the posterior right lower lung. These are unchanged from the prior exam. These could represent areas of pneumonia. The chronicity of these densities is not known. There is some cavitary change in the lateral right lower lung. All these findings are unchanged. Neoplasm cannot be excluded. These should be followed to complete resolution. If these areas persists, but can be followed up with a PET FDG study. 2. Volume loss in the left chest with increased density in the left perihilar region. There is bronchiectasis with material within the bronchi at the left lower lung. 3. Moderate left pleural effusion with thickening of the pleura and calcification of the visceral pleura. This appearance is unchanged. 4. Suspected cirrhosis and splenomegaly seen in the upper abdomen. There is ascites seen in the upper abdomen. Assessment and Plan - Assessment (1) Respiratory failure requiring intubation Code(s): J96.90 - Respiratory failure, unspecified, unspecified whether with hypoxia or hypercapnia Status: Acute (2) Pneumonia Code(s): J18.9 - Pneumonia, unspecified organism Status: Acute (3) CHF (congestive heart failure), NYHA class II Code(s): I50.9 - Heart failure, unspecified Status: Acute (4) CHF (congestive heart failure) Code(s): I50.9 - Heart failure, unspecified Status: Acute (5) Respiratory abnormalities Code(s): J98.9 - Respiratory disorder, unspecified Status: Acute (6) Emphysema of lung Code(s): J43.9 - Emphysema, unspecified Status: Acute (7) Borderline diabetes mellitus Code(s): R73.03 - Prediabetes Status: Acute (8) Fracture, intertrochanteric, left femur Code(s): S72.142A - Displaced intertrochanteric fracture of left femur, initial encounter for closed fracture Status: Acute (9) Nutrition, metabolism, and development symptoms Code(s): R63.8 - Other symptoms and signs concerning food and fluid intake Status: Acute - Plan RECOMMENDATIONS: 1. O2 3 L. 2. Bronchodilators ,DuoNeb q.6 hr. 3. D/W family here 4 .Labs in am 5. Continue with Lasix 40 mg daily. 6. Cont antibiotics per ID. 7. Swallow test and feeds 8. Cont Solumedrol 40 mg IV q8H 9. Could use BIPAP 12/5 CM at HS 10.PT and OT Evaluation
--- NOTE | 2018-01-21 17:07 | P.PNCC ---
Subjective Subjective Remarks/Hospital Course: 82-year-old male with past medical history of COPD and CHF presents for an evaluation of shortness of breath and hypoxemia worsening over past few days. The nebulizer treatments helped initially however today there were not helpful. EMS reports on scene the O2 sat was in the 80s. He received high flow oxygen and nebulized albuterol in route here. His blood pressure initially in the emergency department was 200/100 however trended down to about 160/90. BiPAP was started in the emergency department with improvement in his O2 sat that has trended towards the high 90s with 100% FiO2 on BiPAP. Shortly after transfer to ICU the patient continues to to be more hypoxemic and restless requiring endotracheal intubation and mechanical ventilation. 12/20: intubated and sedated. still hypercarbic with [id number] respiratory acidosis. family unhappy that patient was intubated: they insisted last night on being a Full Code, but apparently the daughter required that she be notified of exactly what SpO2 the patient was at, and it had to reach a certain low level before she would be ok with intubation. Per overnight records , patient presented with severe respiratory distress, and family reports that EMS stated patient "wouldn't make it all the way to [facility]" due to his pulmonary instability. This morning, hypoxia is somewhat improved. remains on broad spectrum antibiotics. I explained to family that this is likely a new pneumonia causing respiratory failure. I also explained that after recent hip fracture and recent prolonged hospitalization, his baseline end-stage lung disease and NYHA Class IV symptoms are likely to worsen, and this may be worsening of his overall end-stage disease processes. Family continues to state that our facility caused his lung failure during the prior hospitalization. They are also concerned about his poor peripheral perfusion and oliguria, which concerns me also: I explained that his heart failure could not tolerate significant amount of iv fluids, and we have already given him 1500mL over the last 12 hours, but they have insisted on additional iv fluids. I explained he had severe sepsis and the mortality associated with this. Daughter continues to remind me that her father "is coming home with her and getting better" as she has stated multiple times in the past. 12/21: no improvements. remains intubated. clinically becoming volume overloaded - will be forced to start diuresis. 12/22: mental status slightly improved. still failing weaning attempts. 12/23: Afebrile. Currently on PSV trial 15/7 at 45%. Discussed with and daughter at bedside. Chest x-ray revealed ET tube at [place]. Retracted 1 cm. Tolerating tube feeds with family requested 40 cc an hour. 12/24: Afebrile. Currently CPAP trial FiO2 at 45%. Tolerating tube feeds if family requested 40 cc an hour. Receiving morphine 1-2 mg every 4 hours as needed pain. 12/25 No events overnight remains intubated off sedation. Tolerated CPAP for several hrs yesterday. Afebrile. 12/26 No events overnight. Patient tolerated CPAP for most of day yesterday. Awake and alert follows commands, on no sedation. 12/27 Patient was extubated yesterday on 4L oxygen. Awake. Afebrile. 12/28 No events overnight. Remains on 4L oxygen. Awake and alert. 12/30: RECONSULT NOTE: reconsulted as rapid response for hypoxia. per the family , patient had desaturation episode to the 60s, placed on NRB. family insisted on transfer back to ICU. when I saw patient on arrival to ICU, patient spo2 99% on NRB. pao2 on NRB was 150. patient is well-known to me with baseline spo2 82- 86% on 5L o2 by NC at home. family states he has another pneumonia. on my review of CXR and lab evidence, unclear if this is new pneumonia vs. old chronic lung disease. patient denies sob or new symptoms. 12/31: no changes. remains on simple mask at 6LPM. not in distress. family does not want to leave ICU and wants to continue ICU care for the remainder of the hospitalization. long discussion about needing to de-escalate level of care prior to hospital discharge. 01/07 Reconsult for Resp. distress. Patient was placed on BIPAP with 60% FIO2. ABG this morning showed some improvements in his resp acidosis with PH:7.34, CO2 72 from 82. CXR from 16/[address] chest today. 01/08 Patient was intubated this morning for worsening resp acidosis. CT chest yesterday showed pneumonia/aspiration. On Diprivan for sedation. Afebrile. 01/09 Patient is intubated and on low dose Diprivan drip. Afebrile. 01/10 Patient remains intubated. Awake, tolerated CPAP for most of day yesterday. Afebrile. 01/11 No events overnight. Awake and alert off sedation, tolerated CPAP all day yesterday. Afebrile. 01/12: Family concern regarding testicular swelling. I went over available laboratories. Will check hepatitis C genotype and PCR viral load today. We will also check C. difficile per family request. Patient tolerated CPAP yesterday for around 10 hours. Has been on CPAP since 8 AM this morning. FiO2 35%. Subjective: 01/13: Afebrile. Remains on CPAP trial / at 35%. All x-rays pending. Long discussion with family at bedside and via telephone. Plan for bronchoscopy tomorrow if okay with 2 other daughters with pulmonology. 01/14: remains intubated, sedated. plan for bronch today with pulmonary at bedside. failing SBTs. 01/15: intubated and sedated. will attempt SBT today. discussion yesterday with family: if he passes SBT, will proceed with extubation, but high risk for decompensation and re-intubation. if he gets reintubated again, will need trach/ peg to continue forward and aggressive care. 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 01/16: Remains orally intubated on mechanical ventilation. ABG done today borderline. Resumed Lasix. GI started spironolactone to mobilize fluid. 01/17: Remains orally intubated on mechanical ventilation. Daily CPAP trials 01/18: Awake, alert, orally intubated on mechanical ventilation. Daily CPAP trials ongoing. Continues to have diarrhea. 01/19: Drowsy, easily arousable, orally intubated on mechanical ventilation. Daily CPAP trials with respiratory rate 28 tidal volumes 250s-300. 01/20: Awake, alert, orally intubated on mechanical ventilation at the time of my evaluation. Tolerating CPAP trials +5/+5. Respiratory rate 28-30, tidal volumes 250s-300. Discussed with Dr. Guerrier. Will proceed with extubation. Explained to family patient is high risk for intubation and that we will be using intermittent BiPAP if needed. 01/21: awake and alert. extubated yesterday. on 2.5L o2 by nc. somewhat tachypneic, but otherwise stable. BALs growing aspergillus. left pleural effusion persists on CT, but at this point, risk/benefit likely in favor of conservative management. 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 They continue to press for ongoing aggressive care and continue to state he will come home with them soon. Objective Vital Signs / I&O: Vital Signs 01/20/18 18:00 01/20/18 19:47 01/20/18 20:00 Temperature 36.8 C Pulse Rate 91 H 88 90 Respiratory Rate 30 H 33 H Blood Pressure 130/61 Pulse Oximetry 100 93 L 01/20/18 22:00 01/21/18 00:00 01/21/18 00:15 Temperature 36.9 C Pulse Rate 92 H 84 83 Respiratory Rate 22 25 H Blood Pressure 127/63 Pulse Oximetry 95 01/21/18 02:00 01/21/18 02:11 01/21/18 03:41 Temperature Pulse Rate 92 H 88 Respiratory Rate 23 Blood Pressure Pulse Oximetry 95 01/21/18 03:43 01/21/18 04:00 01/21/18 06:00 Temperature 36.9 C Pulse Rate 97 H 92 H Respiratory Rate 39 H Blood Pressure 150/91 H Pulse Oximetry 99 1 L 01/21/18 07:00 01/21/18 08:00 01/21/18 10:00 Temperature 36.8 C Pulse Rate 91 H 92 H 92 H Respiratory Rate 16 27 H Blood Pressure 147/66 H Pulse Oximetry 100 97 01/21/18 11:15 01/21/18 12:00 01/21/18 14:00 Temperature 37.0 C Pulse Rate 87 92 H 88 Respiratory Rate 17 18 Blood Pressure 110/80 Pulse Oximetry 97 01/21/18 15:05 Temperature Pulse Rate 86 Respiratory Rate 16 Blood Pressure Pulse Oximetry Intake & Output 01/20/18 01/21/18 01/21/18 18:59 06:59 18:59 Intake Total 60 / 60 60 / 60 Output Total 675 / 675 800 / 800 Balance -615 / -615 -740 / -740 Weight 68 kg Intake: Tube Irrigant 60 / 60 60 / 60 Output: Urine Amount (Catheter) 675 / 675 800 / 800 Condom 675 / 675 800 / 800 Other: Date of Last Bowel Movement 01/20/18 01/20/18 01/20/18 # Incontinent Bowel Movements 6 6 Result Diagrams: 01/21/18 04:46 01/21/18 04:46 Objective Remarks: GENERAL: 82-year-old male lying in bed. HEENT: Normocephalic. Atraumatic. Positive pallor, no icterus. Mucous membranes are moist NECK: Trachea is midline. No JVD CHEST: nc o2. mildly tachypneic. equal chest rise. CARDIOVASCULAR: Normal rate, regular rhythm. ABDOMEN: Soft, nontender, nondistended. No guarding. MUSCULOSKELETAL: Pulses 2+. significant evidence of scrotal edema. 1+ peripheral edema. No mottling NEUROLOGICAL: awake, alert. follows commands. 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 Although he has now successfully from mechanical ventilation, it has become increasingly difficult to salvage his pulmonary function given his end-stage lung disease. I continue to express my concerns that he is hospice appropriate and another respiratory failure would likely be fatal. Fungal pneumonia at this point is concerning, both from a critical illness standpoint and also as a marker of how deconditioned and functionally immunosuppressed he has become due to his chronic illnesses. Overall prognosis is quite poor. Family continues to urge for ongoing aggressive care and remains hopeful of a complete recovery to an active life at home. Neuro/psych: Acute metabolic encephalopathy- resolved Awake and alert Monitor neuro status Acetaminophen liquid 650 every 6 hours as needed fever Morphine sulfate 1-2 mg IV every 4 hours as needed pain Respiratory: Acute hypoxic and hypercarbic respiratory failure- Intubated 01/08, extubated 01/20 End-stage COPD Status post left lower lobe pneumonectomy Congestive heart failure secondary to severe lung disease Right lower lobe healthcare associated pneumonia pulmonary hypertension right ventricular dysfunction On 5 L oxygen by nasal cannula at home continuously Albuterol/ipratropium aerosols every 6 hours with albuterol aerosols every 2 hours as needed dyspnea, ICU vent bundle. Extubated to nasal cannula on 01/20. Plan to use intermittent BiPAP as needed. patient is at high risk of reintubation. Prednisone stopped and patient switched to IV Solu-Medrol per Dr. Lazcano Pulmonary is following- Dr. Lazcano CT chest: Postsurgical features of suspected previous left-sided lobectomy with volume loss and mediastinal shift to the left. Bulky left-sided pleural plaques with chronic appearing small to moderate sized loculated left pleural effusion. Dense airspace consolidation in the superior segment of the right lower lobe with patchy interstitial and groundglass opacities throughout the right lower lobe. 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 Normal left ventricular size. Wall thickness is normal. No regional wall motion abnormalities are present. Diffuse calcification of the aortic valve but no significant stenosis. There is mild to moderate tricuspid valve regurgitation. The estimated pulmonary arterial pressure is 76.9 mmHg with severe pulmonary hypertension. Previously on furosemide 40 mg by tube daily. Restarted Lasix 40 mg IV every 12 hourly on 01/16. GI started spironolactone on 01/16 As needed labetalol and Nitropaste for hypertension Renal/: History of nephrolithiasis Monitor renal function, I/O's, electrolytes replacement per protocol. Stopped Lasix 40 mg IV every 12 hourly on 01/20 in view of prerenal azotemia. Spironolactone daily started 01/16 FEN/GI: Severe acute protein calorie malnutrition Hep C IgG positive Hypernatremia On tube feeds- Glucerna 1.5 @45ml/hr-held for extubation on 01/20 speech eval and advance diet per their recommendations Lansoprazole for GI prophylaxis Docusate sodium/senna 1 tablet twice daily for bowel regimen GI is following US abdomen: Limited exam due to obscuration by bowel gas.Simple left renal cyst. small ascites in the right upper quadrant. Positive HepC IgG hepatitis C genotype and PCR viral load negative ID: Healthcare associated pneumonia Severe sepsis- present on admission Normocytic anemia Thrombocytopenia Aspergillus pneumonia Abx per ID Voriconazole IV started on 01/16 per ID-changed to micafungin on 01/19 as family concerned that it was causing lethargy. Off Zosyn currently. BAL cultures growing Aspergillus, mold Follow up on sputum 01/08 normal resp vaishnavi Sputum culture 12/20-shea resp vaishnavi Blood cultures 12/19 no growth Urine UA with urine culture 12/20-NGTD Negative Legionella and pneumococcal urinary antigens Endocrine: Hyperglycemia of critical illness -- On medium SSI , continue insulin detemir [id number] Heme: Normocytic anemia Thrombocytopenia Monitor CBC, Hep PLT ab negative MSK:: History of left IT nailing 11/14 Vitamin D deficiency PT evaluate and treat Prophylaxis: GI Prophylaxis Lansoprazole DVT Prophylaxis -- SCDs - Enoxaparin held for anemia, thrombocytopenia and Hemoccult positive Lines: Peripheral IVs.
[2018-01-21] MEDS: Micafungin Inj 150 MG in Sodium Chlor 0.9% Inj 100 ML IV.SIG SCH (20:43)
[2018-01-22] MEDS: MethylPREDNISolone Sod Succinate Inj 40 MG/ML Vial IV.PUSH SCH ×3 (01:04→21:22)
[2018-01-22] MEDS: Insulin NovoLOG Aspart Correctional Sugar Inj SQ SCH ×5 (01:05→18:59)
[2018-01-22] MEDS: Oral Hygiene Kit OROPHARYNG SCH ×4 (01:05→18:42)
[2018-01-22] MEDS: Chlorhexidine 0.12% Oral Kit 15 ML UDC OROPHARYNG SCH ×2 (09:01→21:33)
[2018-01-22] MEDS: rifAXIMin 550 MG Tablet PO SCH ×2 (09:02→21:25)
[2018-01-22] MEDS: Budesonide-Formoterol 160/4.5 MCG 6 GM Inhaler INH SCH ×2 (09:03→20:55)
[2018-01-22] MEDS: Lactobacillus Acidophilus/L. Spores Tablet PO SCH ×3 (09:03→18:43)
[2018-01-22] MEDS: Carboxymethylcellulose 0.5% Opth Drops 15 ML Bottle EACH EYE SCH ×2 (09:03→21:24)
[2018-01-22] MEDS: Spironolactone 25 MG Tablet PO SCH (09:04)
[2018-01-22] MEDS: Insulin Detemir Inj 1,000 UNIT/10 ML Vial SQ SCH ×2 (09:04→21:32)
[2018-01-22] MEDS: Bismuth Subsalicylate Susp 240 ML Bottle NG/OG SCH ×3 (09:05→18:43)
--- NOTE | 2018-01-22 12:24 | P.PN ---
Subjective Interval history: He is back on BIPAP today. Was tachypneic.. Alert and responds to commands. Physical Exam Vital signs: Vital Signs 01/21/18 13:00 01/21/18 14:00 01/21/18 15:00 Temperature Pulse Rate 95 H 88 86 Respiratory Rate 30 H 24 25 H Blood Pressure 133/60 146/66 H 138/65 Pulse Oximetry 99 97 01/21/18 15:05 01/21/18 16:00 01/21/18 17:00 Temperature 98.2 F Pulse Rate 86 84 85 Respiratory Rate 16 21 24 Blood Pressure 126/60 136/63 Pulse Oximetry 100 96 01/21/18 18:00 01/21/18 19:00 01/21/18 19:13 Temperature Pulse Rate 81 82 87 Respiratory Rate 23 24 16 Blood Pressure 142/63 H 124/59 L Pulse Oximetry 100 97 96 01/21/18 20:00 01/21/18 21:00 01/21/18 22:00 Temperature 98.4 F Pulse Rate 87 85 87 Respiratory Rate 27 H 24 29 H Blood Pressure 125/60 128/60 139/63 Pulse Oximetry 97 98 90 L 01/21/18 22:18 01/21/18 23:00 01/21/18 23:06 Temperature Pulse Rate 86 83 Respiratory Rate 34 H 28 H Blood Pressure 153/70 H Pulse Oximetry 97 95 01/22/18 00:00 01/22/18 01:00 01/22/18 02:00 Temperature 97.3 F L Pulse Rate 75 75 76 Respiratory Rate 23 24 23 Blood Pressure 141/67 H 138/66 156/70 H Pulse Oximetry 96 94 L 98 01/22/18 03:00 01/22/18 04:00 01/22/18 04:32 Temperature 97.4 F L Pulse Rate 79 81 78 Respiratory Rate 23 27 H 24 Blood Pressure 154/72 H 178/79 H 146/69 H Pulse Oximetry 100 98 99 01/22/18 05:00 01/22/18 06:00 01/22/18 07:00 Temperature Pulse Rate 76 81 70 Respiratory Rate 24 16 Blood Pressure 156/80 H Pulse Oximetry 100 98 01/22/18 08:00 01/22/18 10:00 01/22/18 10:49 Temperature 98.3 F Pulse Rate 79 82 100 H Respiratory Rate 21 20 Blood Pressure 140/64 Pulse Oximetry 01/22/18 10:56 01/22/18 11:10 Temperature Pulse Rate Respiratory Rate Blood Pressure Pulse Oximetry 90 L 94 L Intake & Output 01/21/18 01/22/18 01/22/18 18:59 06:59 18:59 Intake Total 120 / 120 Output Total 100 / 100 625 / 625 Balance -100 / -100 -505 / -505 Weight 67.5 kg Intake: Oral 120 / 120 Tube Feeding 0 / 0 Tube Irrigant 0 / 0 Water Bolus Amount 0 / 0 Other 0 / 0 Output: Urine 0 / 0 Urine Amount (Catheter) 100 / 100 625 / 625 Condom 100 / 100 625 / 625 Other: # Voids 0 # Incontinent Voids 0 Date of Last Bowel Movement 01/21/18 01/22/18 01/21/18 # Bowel Movements 2 # Incontinent Bowel Movements 3 2 Narrative: General:Elderly W/M , Awake and in mild distress. On BIPAP HEENT:PERRL. Throat injected. Cardiovascular:Regular Rhythm, S1 S2 ,no murmur Respiratory : Few Basal crackles and bilateral wheezes and decreased breath sounds at left base. Abdomen: soft, nontender, positive bowel sounds. No Mass. Extremities: No edema , of lower extremities. Neuro:Alert and moves extremities. No Focal deficits. - Urinary Catheter Management Straight Cath placed during this visit: yes, but has since been removed by the nurse Reason for continuing: Not indwelling catheter Insertion date: 12/23/17 Insertion time: 01:00 Removal date: 12/22/17 Removal time: 01:00 Condom Cath placed during this visit: no Results - Labs CBC & Chem 7: 01/21/18 04:46 01/21/18 04:46 Laboratory Results - last 24 hr 01/21/18 01/21/18 01/21/18 13:18 16:32 19:53 POC Glucose 425 H 276 H 319 H 01/22/18 01/22/18 00:36 05:51 POC Glucose 315 H 207 H Microbiology 01/14/18 11:15 Bronchial Washings - Bronchial Acid Fast Bacilli Smear - Final No acid fast bacilli seen 01/14/18 11:15 Bronchial Washings - Bronchial Mycobacterial Culture - Preliminary No growth in 1 week Assessment and Plan - Assessment (1) Respiratory failure requiring intubation Code(s): J96.90 - Respiratory failure, unspecified, unspecified whether with hypoxia or hypercapnia Status: Acute (2) Pneumonia Code(s): J18.9 - Pneumonia, unspecified organism Status: Acute (3) CHF (congestive heart failure), NYHA class II Code(s): I50.9 - Heart failure, unspecified Status: Acute (4) CHF (congestive heart failure) Code(s): I50.9 - Heart failure, unspecified Status: Acute (5) Respiratory abnormalities Code(s): J98.9 - Respiratory disorder, unspecified Status: Acute (6) Emphysema of lung Code(s): J43.9 - Emphysema, unspecified Status: Acute (7) Borderline diabetes mellitus Code(s): R73.03 - Prediabetes Status: Acute (8) Fracture, intertrochanteric, left femur Code(s): S72.142A - Displaced intertrochanteric fracture of left femur, initial encounter for closed fracture Status: Acute (9) Nutrition, metabolism, and development symptoms Code(s): R63.8 - Other symptoms and signs concerning food and fluid intake Status: Acute - Plan RECOMMENDATIONS: 1. BIPAP 15/5 Cm FIo2 40 % 2. Bronchodilators ,DuoNeb q.6 hr. 3. D/W family here 4 .CXR , CBC in am 5. Continue with Lasix 40 mg daily. 6. Cont antibiotics per ID. 7. Hold sedation. 8.Taper Solumedrol 40 mg IV q12H 9.PT and OT Evaluation
[2018-01-22 14:20] LABS: Baso % (Auto) 0.2 % (0.0-2.0); Hematocrit 30.6 % (39.0-51.0); Lymph # (Auto) 0.2 th/mm3 (1.0-4.8); Lymph % (Auto) 2.3 % (9.0-44.0); Mean Corpuscular HGB Conc 32.7 % (32.0-36.0); Mean Corpuscular Hemoglobin 30.1 pg (27.0-34.0); Mean Corpuscular Volume 92.2 fL (80.0-100.0); Mean Platelet Volume 8.7 fL (7.0-11.0); Mono # (Auto) 0.2 th/mm3 (0.0-0.9); Mono % (Auto) 2.7 % (0.0-8.0); Neut # (Auto) 8.1 th/mm3 (1.8-7.7); Neut % (Auto) 94.8 % (16.0-70.0); Platelet Count 158 th/mm3 (150-450); Red Blood Count 3.32 mil/mm3 (4.50-5.90); Red Cell Distribution Width 15.7 % (11.6-17.2); White Blood Count 8.6 th/mm3 (4.0-11.0)
[2018-01-22 14:51] LABS: Magnesium 2.5 mg/dL (1.5-2.5); Phosphorus 3.2 mg/dL (2.5-4.9)
--- NOTE | 2018-01-22 16:25 | P.PNCC ---
Subjective Subjective Remarks/Hospital Course: 82-year-old male with past medical history of COPD and CHF presents for an evaluation of shortness of breath and hypoxemia worsening over past few days. The nebulizer treatments helped initially however today there were not helpful. EMS reports on scene the O2 sat was in the 80s. He received high flow oxygen and nebulized albuterol in route here. His blood pressure initially in the emergency department was 200/100 however trended down to about 160/90. BiPAP was started in the emergency department with improvement in his O2 sat that has trended towards the high 90s with 100% FiO2 on BiPAP. Shortly after transfer to ICU the patient continues to to be more hypoxemic and restless requiring endotracheal intubation and mechanical ventilation. 12/20: intubated and sedated. still hypercarbic with [id number] respiratory acidosis. family unhappy that patient was intubated: they insisted last night on being a Full Code, but apparently the daughter required that she be notified of exactly what SpO2 the patient was at, and it had to reach a certain low level before she would be ok with intubation. Per overnight records , patient presented with severe respiratory distress, and family reports that EMS stated patient "wouldn't make it all the way to [facility]" due to his pulmonary instability. This morning, hypoxia is somewhat improved. remains on broad spectrum antibiotics. I explained to family that this is likely a new pneumonia causing respiratory failure. I also explained that after recent hip fracture and recent prolonged hospitalization, his baseline end-stage lung disease and NYHA Class IV symptoms are likely to worsen, and this may be worsening of his overall end-stage disease processes. Family continues to state that our facility caused his lung failure during the prior hospitalization. They are also concerned about his poor peripheral perfusion and oliguria, which concerns me also: I explained that his heart failure could not tolerate significant amount of iv fluids, and we have already given him 1500mL over the last 12 hours, but they have insisted on additional iv fluids. I explained he had severe sepsis and the mortality associated with this. Daughter continues to remind me that her father "is coming home with her and getting better" as she has stated multiple times in the past. 12/21: no improvements. remains intubated. clinically becoming volume overloaded - will be forced to start diuresis. 12/22: mental status slightly improved. still failing weaning attempts. 12/23: Afebrile. Currently on PSV trial 15/7 at 45%. Discussed with and daughter at bedside. Chest x-ray revealed ET tube at [place]. Retracted 1 cm. Tolerating tube feeds with family requested 40 cc an hour. 12/24: Afebrile. Currently CPAP trial FiO2 at 45%. Tolerating tube feeds if family requested 40 cc an hour. Receiving morphine 1-2 mg every 4 hours as needed pain. 12/25 No events overnight remains intubated off sedation. Tolerated CPAP for several hrs yesterday. Afebrile. 12/26 No events overnight. Patient tolerated CPAP for most of day yesterday. Awake and alert follows commands, on no sedation. 12/27 Patient was extubated yesterday on 4L oxygen. Awake. Afebrile. 12/28 No events overnight. Remains on 4L oxygen. Awake and alert. 12/30: RECONSULT NOTE: reconsulted as rapid response for hypoxia. per the family , patient had desaturation episode to the 60s, placed on NRB. family insisted on transfer back to ICU. when I saw patient on arrival to ICU, patient spo2 99% on NRB. pao2 on NRB was 150. patient is well-known to me with baseline spo2 82- 86% on 5L o2 by NC at home. family states he has another pneumonia. on my review of CXR and lab evidence, unclear if this is new pneumonia vs. old chronic lung disease. patient denies sob or new symptoms. 12/31: no changes. remains on simple mask at 6LPM. not in distress. family does not want to leave ICU and wants to continue ICU care for the remainder of the hospitalization. long discussion about needing to de-escalate level of care prior to hospital discharge. 01/07 Reconsult for Resp. distress. Patient was placed on BIPAP with 60% FIO2. ABG this morning showed some improvements in his resp acidosis with PH:7.34, CO2 72 from 82. CXR from 16/[address] chest today. 01/08 Patient was intubated this morning for worsening resp acidosis. CT chest yesterday showed pneumonia/aspiration. On Diprivan for sedation. Afebrile. 01/09 Patient is intubated and on low dose Diprivan drip. Afebrile. 01/10 Patient remains intubated. Awake, tolerated CPAP for most of day yesterday. Afebrile. 01/11 No events overnight. Awake and alert off sedation, tolerated CPAP all day yesterday. Afebrile. 01/12: Family concern regarding testicular swelling. I went over available laboratories. Will check hepatitis C genotype and PCR viral load today. We will also check C. difficile per family request. Patient tolerated CPAP yesterday for around 10 hours. Has been on CPAP since 8 AM this morning. FiO2 35%. Subjective: 01/13: Afebrile. Remains on CPAP trial / at 35%. All x-rays pending. Long discussion with family at bedside and via telephone. Plan for bronchoscopy tomorrow if okay with 2 other daughters with pulmonology. 01/14: remains intubated, sedated. plan for bronch today with pulmonary at bedside. failing SBTs. 01/15: intubated and sedated. will attempt SBT today. discussion yesterday with family: if he passes SBT, will proceed with extubation, but high risk for decompensation and re-intubation. if he gets reintubated again, will need trach/ peg to continue forward and aggressive care. 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 01/16: Remains orally intubated on mechanical ventilation. ABG done today borderline. Resumed Lasix. GI started spironolactone to mobilize fluid. 01/17: Remains orally intubated on mechanical ventilation. Daily CPAP trials 01/18: Awake, alert, orally intubated on mechanical ventilation. Daily CPAP trials ongoing. Continues to have diarrhea. 01/19: Drowsy, easily arousable, orally intubated on mechanical ventilation. Daily CPAP trials with respiratory rate 28 tidal volumes 250s-300. 01/20: Awake, alert, orally intubated on mechanical ventilation at the time of my evaluation. Tolerating CPAP trials +5/+5. Respiratory rate 28-30, tidal volumes 250s-300. Discussed with Dr. Guerrier. Will proceed with extubation. Explained to family patient is high risk for intubation and that we will be using intermittent BiPAP if needed. 01/21: awake and alert. extubated yesterday. on 2.5L o2 by nc. somewhat tachypneic, but otherwise stable. BALs growing aspergillus. left pleural effusion persists on CT, but at this point, risk/benefit likely in favor of conservative management. 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 They continue to press for ongoing aggressive care and continue to state he will come home with them soon. 01/22: clinically worse today. back on BiPAP. fio2 still 35%, but very tired. family concerned about breathing: again I discussed the fact that he is deconditioned and I am concerned that he will fail after he tires out. I expressed my concern that this will keep happening and he will end up back on life-support. Family continues to intermittently refuse accuchecks and SQ insulin, but today have concerns that his blood sugar is higher than it has been and they asked his insulin be adjusted. I have increased his glycemic control and ask that the family allow us to administer the ordered insulin. Objective Vital Signs / I&O: Vital Signs 01/21/18 17:00 01/21/18 18:00 01/21/18 19:00 Temperature Pulse Rate 85 81 82 Respiratory Rate 24 23 24 Blood Pressure 136/63 142/63 H 124/59 L Pulse Oximetry 96 100 97 01/21/18 19:13 01/21/18 20:00 01/21/18 21:00 Temperature 36.9 C Pulse Rate 87 87 85 Respiratory Rate 16 27 H 24 Blood Pressure 125/60 128/60 Pulse Oximetry 96 97 98 01/21/18 22:00 01/21/18 22:18 01/21/18 23:00 Temperature Pulse Rate 87 86 Respiratory Rate 29 H 34 H Blood Pressure 139/63 153/70 H Pulse Oximetry 90 L 97 95 01/21/18 23:06 01/22/18 00:00 01/22/18 01:00 Temperature 36.3 C L Pulse Rate 83 75 75 Respiratory Rate 28 H 23 24 Blood Pressure 141/67 H 138/66 Pulse Oximetry 96 94 L 01/22/18 02:00 01/22/18 03:00 01/22/18 04:00 Temperature 36.3 C L Pulse Rate 76 79 81 Respiratory Rate 23 23 27 H Blood Pressure 156/70 H 154/72 H 178/79 H Pulse Oximetry 98 100 98 01/22/18 04:32 01/22/18 05:00 01/22/18 06:00 Temperature Pulse Rate 78 76 81 Respiratory Rate 24 24 Blood Pressure 146/69 H 156/80 H Pulse Oximetry 99 100 01/22/18 07:00 01/22/18 08:00 01/22/18 10:00 Temperature 36.8 C Pulse Rate 70 79 82 Respiratory Rate 16 21 Blood Pressure 140/64 Pulse Oximetry 98 01/22/18 10:49 01/22/18 10:56 01/22/18 11:10 Temperature Pulse Rate 100 H Respiratory Rate 20 Blood Pressure Pulse Oximetry 90 L 94 L 01/22/18 12:00 01/22/18 15:22 Temperature Pulse Rate 94 H 93 H Respiratory Rate 35 H 35 H Blood Pressure Pulse Oximetry 94 L Intake & Output 01/21/18 01/22/18 01/22/18 18:59 06:59 18:59 Intake Total 120 / 120 Output Total 100 / 100 625 / 625 Balance -100 / -100 -505 / -505 Weight 67.5 kg Intake: Oral 120 / 120 Tube Feeding 0 / 0 Tube Irrigant 0 / 0 Water Bolus Amount 0 / 0 Other 0 / 0 Output: Urine 0 / 0 Urine Amount (Catheter) 100 / 100 625 / 625 Condom 100 / 100 625 / 625 Other: # Voids 0 # Incontinent Voids 0 Date of Last Bowel Movement 01/21/18 01/22/18 01/21/18 # Bowel Movements 2 # Incontinent Bowel Movements 3 2 Result Diagrams: 01/22/18 13:19 01/21/18 04:46 Objective Remarks: GENERAL: 82-year-old male lying in bed. HEENT: Normocephalic. Atraumatic. Positive pallor, no icterus. Mucous membranes are moist NECK: Trachea is midline. No JVD CHEST: bipap 35% fio2. mildly tachypneic. equal chest rise. more labored today than yesterday. CARDIOVASCULAR: Normal rate, regular rhythm. ABDOMEN: Soft, nontender, nondistended. No guarding. MUSCULOSKELETAL: Pulses 2+. significant evidence of scrotal edema. 1+ peripheral edema. No mottling NEUROLOGICAL: RASS -1. more somnolent. still arousable. appears tired. follows commands. 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 Although he has now successfully from mechanical ventilation, it has become increasingly difficult to salvage his pulmonary function given his end-stage lung disease. I continue to express my concerns that he is hospice appropriate and another respiratory failure would likely be fatal. Fungal pneumonia at this point is concerning, both from a critical illness standpoint and also as a marker of how deconditioned and functionally immunosuppressed he has become due to his chronic illnesses. Overall prognosis is quite poor. Family continues to urge for ongoing aggressive care and remains hopeful of a complete recovery to an active life at home. Neuro/psych: Acute metabolic encephalopathy- resolved Awake and alert Monitor neuro status Acetaminophen liquid 650 every 6 hours as needed fever Morphine sulfate 1-2 mg IV every 4 hours as needed pain Respiratory: Acute hypoxic and hypercarbic respiratory failure- Intubated 01/08, extubated 01/20 End-stage COPD Status post left lower lobe pneumonectomy Congestive heart failure secondary to severe lung disease Right lower lobe healthcare associated pneumonia pulmonary hypertension right ventricular dysfunction On 5 L oxygen by nasal cannula at home continuously Albuterol/ipratropium aerosols every 6 hours with albuterol aerosols every 2 hours as needed dyspnea, ICU vent bundle. Extubated to nasal cannula on 01/20. Plan to use intermittent BiPAP as needed. patient is at high risk of reintubation. Prednisone stopped and patient switched to IV Solu-Medrol per Dr. Lazcano Pulmonary is following- Dr. Lazcano CT chest: Postsurgical features of suspected previous left-sided lobectomy with volume loss and mediastinal shift to the left. Bulky left-sided pleural plaques with chronic appearing small to moderate sized loculated left pleural effusion. Dense airspace consolidation in the superior segment of the right lower lobe with patchy interstitial and groundglass opacities throughout the right lower lobe. 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 Normal left ventricular size. Wall thickness is normal. No regional wall motion abnormalities are present. Diffuse calcification of the aortic valve but no significant stenosis. There is mild to moderate tricuspid valve regurgitation. The estimated pulmonary arterial pressure is 76.9 mmHg with severe pulmonary hypertension. Previously on furosemide 40 mg by tube daily. Restarted Lasix 40 mg IV every 12 hourly on 01/16. GI started spironolactone on 01/16 As needed labetalol and Nitropaste for hypertension Renal/: History of nephrolithiasis Monitor renal function, I/O's, electrolytes replacement per protocol. Stopped Lasix 40 mg IV every 12 hourly on 01/20 in view of prerenal azotemia. Spironolactone daily started 01/16 FEN/GI: Severe acute protein calorie malnutrition Hep C IgG positive Hypernatremia On tube feeds- Glucerna 1.5 @45ml/hr-held for extubation on 01/20 speech eval and advance diet per their recommendations Lansoprazole for GI prophylaxis Docusate sodium/senna 1 tablet twice daily for bowel regimen GI is following US abdomen: Limited exam due to obscuration by bowel gas.Simple left renal cyst. small ascites in the right upper quadrant. Positive HepC IgG hepatitis C genotype and PCR viral load negative ID: Healthcare associated pneumonia Severe sepsis- present on admission Normocytic anemia Thrombocytopenia Aspergillus pneumonia Abx per ID Voriconazole IV started on 01/16 per ID-changed to micafungin on 01/19 as family concerned that it was causing lethargy. Off Zosyn currently. BAL cultures growing Aspergillus, mold Follow up on sputum 01/08 normal resp vaishnavi Sputum culture 12/20-shea resp vaishnavi Blood cultures 12/19 no growth Urine UA with urine culture 12/20-NGTD Negative Legionella and pneumococcal urinary antigens Endocrine: Hyperglycemia of critical illness -- increase levemir to 15 units BID - increase SSI to high dose q4h. Heme: Normocytic anemia Thrombocytopenia Monitor CBC, Hep PLT ab negative MSK:: History of left IT nailing 11/14 Vitamin D deficiency PT evaluate and treat Prophylaxis: GI Prophylaxis Lansoprazole DVT Prophylaxis -- SCDs - Enoxaparin held for anemia, thrombocytopenia and Hemoccult positive Lines: Peripheral IVs.
--- NOTE | 2018-01-22 18:49 | P.PNID ---
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 was switched to micafungin over lethargy concern much improved today no fever CT was dw radiologist: cavity seen on 01/20 was presnt back on 01/07 Antibiotics: z micafungin Allergies/Adverse Reactions: Allergies No Known Allergies Allergy (Verified 12/19/17 21:39) Objective Vital Signs 01/21/18 19:00 01/21/18 19:13 01/21/18 20:00 Temperature 98.4 F Pulse Rate 82 87 87 Respiratory Rate 24 16 27 H Blood Pressure 124/59 L 125/60 Pulse Oximetry 97 96 97 01/21/18 21:00 01/21/18 22:00 01/21/18 22:18 Temperature Pulse Rate 85 87 Respiratory Rate 24 29 H Blood Pressure 128/60 139/63 Pulse Oximetry 98 90 L 97 01/21/18 23:00 01/21/18 23:06 01/22/18 00:00 Temperature 97.3 F L Pulse Rate 86 83 75 Respiratory Rate 34 H 28 H 23 Blood Pressure 153/70 H 141/67 H Pulse Oximetry 95 96 01/22/18 01:00 01/22/18 02:00 01/22/18 03:00 Temperature Pulse Rate 75 76 79 Respiratory Rate 24 23 23 Blood Pressure 138/66 156/70 H 154/72 H Pulse Oximetry 94 L 98 100 01/22/18 04:00 01/22/18 04:32 01/22/18 05:00 Temperature 97.4 F L Pulse Rate 81 78 76 Respiratory Rate 27 H 24 24 Blood Pressure 178/79 H 146/69 H 156/80 H Pulse Oximetry 98 99 100 01/22/18 06:00 01/22/18 07:00 01/22/18 08:00 Temperature 98.3 F Pulse Rate 81 70 79 Respiratory Rate 16 21 Blood Pressure 140/64 Pulse Oximetry 98 01/22/18 10:00 01/22/18 10:49 01/22/18 10:56 Temperature Pulse Rate 82 100 H Respiratory Rate 20 Blood Pressure Pulse Oximetry 90 L 01/22/18 11:10 01/22/18 12:00 01/22/18 14:00 Temperature 98.1 F Pulse Rate 97 H 93 H Respiratory Rate 33 H Blood Pressure 159/72 H Pulse Oximetry 94 L 01/22/18 15:22 01/22/18 16:00 01/22/18 17:31 Temperature 98.5 F Pulse Rate 93 H 85 83 Respiratory Rate 35 H 21 31 H Blood Pressure 146/61 H Pulse Oximetry 94 L 96 01/22/18 18:00 Temperature Pulse Rate 84 Respiratory Rate Blood Pressure Pulse Oximetry Intake & Output 01/21/18 01/22/18 01/22/18 18:59 06:59 18:59 Intake Total 120 / 120 Output Total 100 / 100 625 / 625 Balance -100 / -100 -505 / -505 Weight 67.5 kg Intake: Oral 120 / 120 Tube Feeding 0 / 0 Tube Irrigant 0 / 0 Water Bolus Amount 0 / 0 Other 0 / 0 Output: Urine 0 / 0 Urine Amount (Catheter) 100 / 100 625 / 625 Condom 100 / 100 625 / 625 Other: # Voids 0 # Incontinent Voids 0 Date of Last Bowel Movement 01/21/18 01/22/18 01/21/18 # Bowel Movements 2 # Incontinent Bowel Movements 3 2 01/14/18 11:15 Bronchial Washings - Bronchial Acid Fast Bacilli Smear - Final No acid fast bacilli seen 01/14/18 11:15 Bronchial Washings - Bronchial Mycobacterial Culture - Preliminary No growth in 1 week Lab - Hematology Results 01/21/18 01/22/18 04:46 13:19 WBC 5.2 8.6 RBC 2.90 L 3.32 L Hgb 8.9 L 10.0 L Hct 26.2 L 30.6 L MCV 90.4 92.2 MCH 30.7 30.1 MCHC 33.9 32.7 RDW 15.8 15.7 Plt Count 140 L 158 MPV 8.5 8.7 Neut % (Auto) 93.8 H 94.8 H Lymph % (Auto) 4.6 L 2.3 L Kershaw % (Auto) 1.5 2.7 Eos % (Auto) 0.0 0.0 Baso % (Auto) 0.1 0.2 Neut # (Auto) 4.9 8.1 H Lymph # (Auto) 0.2 L 0.2 L [place]haw # (Auto) 0.1 0.2 Eos # (Auto) 0.0 0.0 Baso # (Auto) 0.0 0.0 WBC Differential . . Differential Comment Auto diff final Auto diff final Lab - Chemistry Results 01/21/18 01/21/18 01/21/18 00:16 04:46 13:18 Sodium 143 Potassium 4.4 Chloride 101 Carbon Dioxide 32.7 H Anion Gap 9 BUN 57 H Creatinine 1.05 Estimated GFR 68 L POC Glucose 203 H 425 H Random Glucose 176 H Calcium 8.7 Phosphorus 4.0 Magnesium 2.6 H Total Bilirubin 0.6 AST 26 ALT 28 Alkaline Phosphatase 232 H Total Protein 6.4 Albumin 2.5 L 01/21/18 01/21/18 01/22/18 16:32 19:53 00:36 Sodium Potassium Chloride Carbon Dioxide Anion Gap BUN Creatinine Estimated GFR POC Glucose 276 H 319 H 315 H Random Glucose Calcium Phosphorus Magnesium Total Bilirubin AST ALT Alkaline Phosphatase Total Protein Albumin 01/22/18 01/22/18 01/22/18 05:51 12:36 13:16 Sodium Potassium Chloride Carbon Dioxide Anion Gap BUN Creatinine Estimated GFR POC Glucose 207 H 416 H 414 H Random Glucose Calcium Phosphorus Magnesium Total Bilirubin AST ALT Alkaline Phosphatase Total Protein Albumin 01/22/18 13:19 Sodium Potassium Chloride Carbon Dioxide Anion Gap BUN Creatinine Estimated GFR POC Glucose Random Glucose Calcium Phosphorus 3.2 Magnesium 2.5 Total Bilirubin AST ALT Alkaline Phosphatase Total Protein Albumin Imaging: ITS Impressions Abdomen Ultrasound 01/09/18 00:00 CONCLUSION: 1. Limited examination due to obscuration by bowel gas. 2. Simple left renal cyst. 3. Moderate amount of ascites in the right upper quadrant. Abdomen/Pelvis CT 01/13/18 00:00 CONCLUSION: 1. Patchy airspace disease right lung base and chronic loculated left pleural effusion not significantly changed since January 07. 2. Mild ascites with liver cirrhosis. 3. NG tip in stomach. Previous cholecystectomy. No bowel obstruction. 4. Multiple subacute lower right rib fractures. Venous Doppler Study 01/13/18 00:00 CONCLUSION: 1. The study is negative for lower extremity deep venous thrombosis. Abdomen X-Ray 01/15/18 00:00 CONCLUSION: Enteric tube placement as above. Chest X-Ray 01/20/18 00:00 CONCLUSION: Diffuse increased interstitial markings related to either underlying process such as edema or underlying interstitial disease. Suspected large left effusion. Extrapleural density seen over the right upper chest which is stable. Chest CT 01/20/18 17:52 CONCLUSION: 1. Persistent areas of increased density in the subpleural region at the right apex and in the posterior right lower lung. These are unchanged from the prior exam. These could represent areas of pneumonia. The chronicity of these densities is not known. There is some cavitary change in the lateral right lower lung. All these findings are unchanged. Neoplasm cannot be excluded. These should be followed to complete resolution. If these areas persists, but can be followed up with a PET FDG study. 2. Volume loss in the left chest with increased density in the left perihilar region. There is bronchiectasis with material within the bronchi at the left lower lung. 3. Moderate left pleural effusion with thickening of the pleura and calcification of the visceral pleura. This appearance is unchanged. 4. Suspected cirrhosis and splenomegaly seen in the upper abdomen. There is ascites seen in the upper abdomen. Physical Exam: GENERAL: awake, alert communicates. NAD SKIN: Warm and dry. NO rash EYES: Pupils equal and round. No scleral icterus. No injection or drainage. ENT: No nasal bleeding or discharge. Mucous membranes pink and moist. NECK: Trachea midline. CARDIOVASCULAR: Regular rate and rhythm. RESPIRATORY: . few scattered rhonchi to auscultation. Breath sounds diminished bilaterally. GASTROINTESTINAL: Abdomen soft, mildly tender, mildly distended MUSCULOSKELETAL: Extremities without clubbing, cyanosis, or edema. No obvious deformities. 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 2/2 voriconazole now on micafungin PLAN: cont o micafungin will repeat non contrast chest CT in about 2 weeks Lactinex beulah Sorto case dw family @ b/s
[2018-01-22] MEDS: Micafungin Inj 150 MG in Sodium Chlor 0.9% Inj 100 ML IV.SIG SCH (21:20)
[2018-01-22] MEDS: Insulin NovoLIN Regular Correctional Sugar Inj SQ SCH (21:33)
[2018-01-23] MEDS: Insulin NovoLIN Regular Correctional Sugar Inj SQ SCH ×6 (00:45→23:23)
[2018-01-23] MEDS: Oral Hygiene Kit OROPHARYNG SCH ×4 (02:30→17:28)
--- NOTE | 2018-01-23 04:47 | XR ---
EXAM DATE: 01/23/2018 3:59 AM EDT AGE/SEX: 82 years / Male INDICATIONS: Shortness of breath, possible pulmonary disease. CLINICAL DATA: This is the patient's subsequent encounter. Patient reports that signs and symptoms h ave been present for 1 month and indicates a pain score of Nonresponsive. MEDICAL/SURGICAL HISTORY: Chronic obstructive pulmonary disease. Congestive heart failure. Di abetes. Lobectomy. COMPARISON: [facility] [place], CHEST 1V SINGLE AP, 01/20/2018. . FINDINGS: Interval extubation and removal of gastric tube. The overall appearance of the lungs is similar to pr ior with concentric opacity in the left hemithorax with small amount of aerated lung centrally. Stabl e calcification of the pleura or left hemidiaphragm. Right apical extrapleural opacity is stable. No new infiltrates seen. CONCLUSION: Stable findings including right apical extrapleural density and concentric opacity about the left hem ithorax. Electronically signed by: Darin Bauer MD 01/23/2018 4:45 AM EDT
[2018-01-23 05:23] LABS: Hematocrit 26.9 % (39.0-51.0); Hemoglobin 9.4 gm/dL (13.0-17.0); Lymph # (Auto) 0.2 th/mm3 (1.0-4.8); Lymph % (Auto) 2.6 % (9.0-44.0); Mean Corpuscular HGB Conc 34.8 % (32.0-36.0); Mean Platelet Volume 8.3 fL (7.0-11.0); Mono # (Auto) 0.3 th/mm3 (0.0-0.9); Mono % (Auto) 3.2 % (0.0-8.0); Neut # (Auto) 7.9 th/mm3 (1.8-7.7); Neut % (Auto) 94.2 % (16.0-70.0); Platelet Count 160 th/mm3 (150-450); Red Blood Count 3.03 mil/mm3 (4.50-5.90); Red Cell Distribution Width 15.1 % (11.6-17.2); White Blood Count 8.4 th/mm3 (4.0-11.0)
[2018-01-23 05:49] LABS: Anion Gap 6 meq/L (5-15); Blood Urea Nitrogen 48 mg/dL (7-18); Calcium 8.9 mg/dL (8.5-10.1); Carbon Dioxide 32.1 meq/L (21.0-32.0); Chloride 105 meq/L (98-107); Glomerular Filtration Rate Greater Than 89 mL/min (>89); Glucose,Random 79 mg/dL (74-106); Potassium 4.2 meq/L (3.5-5.1); Sodium 143 meq/L (136-145)
[2018-01-23] MEDS: Chlorhexidine 0.12% Oral Kit 15 ML UDC OROPHARYNG SCH ×2 (08:46→21:58)
[2018-01-23] MEDS: Carboxymethylcellulose 0.5% Opth Drops 15 ML Bottle EACH EYE SCH ×2 (08:46→21:59)
[2018-01-23] MEDS: MethylPREDNISolone Sod Succinate Inj 40 MG/ML Vial IV.PUSH SCH ×2 (08:47→21:58)
[2018-01-23] MEDS: Insulin Detemir Inj 1,000 UNIT/10 ML Vial SQ SCH ×2 (08:47→23:23)
[2018-01-23] MEDS: Budesonide-Formoterol 160/4.5 MCG 6 GM Inhaler INH SCH ×2 (08:48→21:58)
--- NOTE | 2018-01-23 10:12 | P.PNPL ---
Subjective Interval history: Patient is on 2L oxygen, afebrile. Awake and alert. Afebrile. Physical Exam Vital signs: Vital Signs 01/22/18 10:49 01/22/18 10:56 01/22/18 11:10 Temperature Pulse Rate 100 H Respiratory Rate 20 Blood Pressure Pulse Oximetry 90 L 94 L 01/22/18 12:00 01/22/18 14:00 01/22/18 15:22 Temperature 98.1 F Pulse Rate 97 H 93 H 93 H Respiratory Rate 33 H 35 H Blood Pressure 159/72 H Pulse Oximetry 94 L 01/22/18 16:00 01/22/18 17:31 01/22/18 18:00 Temperature 98.5 F Pulse Rate 85 83 84 Respiratory Rate 21 31 H Blood Pressure 146/61 H Pulse Oximetry 96 01/22/18 19:50 01/22/18 20:00 01/22/18 22:00 Temperature 97.9 F Pulse Rate 79 80 80 Respiratory Rate 24 28 H 28 H Blood Pressure 158/68 H Pulse Oximetry 97 96 98 01/22/18 23:15 01/22/18 23:50 01/23/18 00:00 Temperature 98.6 F Pulse Rate 79 86 Respiratory Rate 24 28 H Blood Pressure 145/67 H Pulse Oximetry 96 98 01/23/18 02:00 01/23/18 04:00 01/23/18 05:31 Temperature 97.4 F L Pulse Rate 85 83 83 Respiratory Rate 30 H 20 Blood Pressure Pulse Oximetry 96 01/23/18 06:00 01/23/18 07:00 01/23/18 08:58 Temperature Pulse Rate 89 82 Respiratory Rate 18 Blood Pressure Pulse Oximetry 95 Intake & Output 01/22/18 01/23/18 01/23/18 18:59 06:59 18:59 Intake Total 450 / 450 Output Total 525 / 525 400 / 400 Balance -75 / -75 -400 / -400 Weight 62.2 kg Intake: Oral 450 / 450 Output: Urine Amount (Catheter) 525 / 525 400 / 400 Condom 525 / 525 400 / 400 Other: # Incontinent Voids 2 Date of Last Bowel Movement 01/22/18 01/23/18 # Bowel Movements 3 # Incontinent Bowel Movements 1 - Constitutional no acute distress - Routine HEENT Exam Head: Present: normocephalic, atraumatic Eye: Present: EOMI, PERRL, normal accommodation, conjunctivae pink ENT: Present: mucous membranes moist - Routine Neck Exam Present: supple, full ROM, trachea midline - Routine Respiratory Exam Present: CTA bilaterally - Routine Cardiovascular Exam Present: RRR, S1, S2 - Routine Abdominal Exam Present: soft, normoactive bowel sounds - Routine Skin Exam Present: intact, dry - Routine Neurological Exam Present: alert, oriented X3, CN II-XII intact - Urinary Catheter Management Straight Cath placed during this visit: yes, but has since been removed by the nurse Reason for continuing: Not indwelling catheter Insertion date: 12/23/17 Insertion time: 01:00 Removal date: 12/22/17 Removal time: 01:00 Condom Cath placed during this visit: no Assessment and Plan - Plan Resp Insuff s/p extubation Pneumonia COPD Status post left lower lobe lobectomy pulmonary hypertension CHF DM s/p Fracture, intertrochanteric, left femur Anemia Plan Continue with oxygen keep sats >92% Bronchodilators( Duoneb, Symbicort) Solumederol 40mg Q12 BIPAP for resp distress Cont antibiotics per ID. On Micafungin. s/p bronch 01/14: Aspergillus PT and OT Evaluation GI/DVT prophylaxis D/W family at bedside.
[2018-01-23] MEDS: Spironolactone 25 MG Tablet PO SCH (12:53)
[2018-01-23] MEDS: rifAXIMin 550 MG Tablet PO SCH ×2 (12:53→21:58)
[2018-01-23] MEDS: Lactobacillus Acidophilus/L. Spores Tablet PO SCH ×3 (12:53→17:28)
[2018-01-23] MEDS: Bismuth Subsalicylate Susp 240 ML Bottle NG/OG SCH ×3 (12:53→17:28)
--- NOTE | 2018-01-23 17:13 | P.PNCC ---
Subjective Subjective Remarks/Hospital Course: 82-year-old male with past medical history of COPD and CHF presents for an evaluation of shortness of breath and hypoxemia worsening over past few days. The nebulizer treatments helped initially however today there were not helpful. EMS reports on scene the O2 sat was in the 80s. He received high flow oxygen and nebulized albuterol in route here. His blood pressure initially in the emergency department was 200/100 however trended down to about 160/90. BiPAP was started in the emergency department with improvement in his O2 sat that has trended towards the high 90s with 100% FiO2 on BiPAP. Shortly after transfer to ICU the patient continues to to be more hypoxemic and restless requiring endotracheal intubation and mechanical ventilation. 12/20: intubated and sedated. still hypercarbic with [id number] respiratory acidosis. family unhappy that patient was intubated: they insisted last night on being a Full Code, but apparently the daughter required that she be notified of exactly what SpO2 the patient was at, and it had to reach a certain low level before she would be ok with intubation. Per overnight records , patient presented with severe respiratory distress, and family reports that EMS stated patient "wouldn't make it all the way to [facility]" due to his pulmonary instability. This morning, hypoxia is somewhat improved. remains on broad spectrum antibiotics. I explained to family that this is likely a new pneumonia causing respiratory failure. I also explained that after recent hip fracture and recent prolonged hospitalization, his baseline end-stage lung disease and NYHA Class IV symptoms are likely to worsen, and this may be worsening of his overall end-stage disease processes. Family continues to state that our facility caused his lung failure during the prior hospitalization. They are also concerned about his poor peripheral perfusion and oliguria, which concerns me also: I explained that his heart failure could not tolerate significant amount of iv fluids, and we have already given him 1500mL over the last 12 hours, but they have insisted on additional iv fluids. I explained he had severe sepsis and the mortality associated with this. Daughter continues to remind me that her father "is coming home with her and getting better" as she has stated multiple times in the past. 12/21: no improvements. remains intubated. clinically becoming volume overloaded - will be forced to start diuresis. 12/22: mental status slightly improved. still failing weaning attempts. 12/23: Afebrile. Currently on PSV trial 15/7 at 45%. Discussed with and daughter at bedside. Chest x-ray revealed ET tube at [place]. Retracted 1 cm. Tolerating tube feeds with family requested 40 cc an hour. 12/24: Afebrile. Currently CPAP trial FiO2 at 45%. Tolerating tube feeds if family requested 40 cc an hour. Receiving morphine 1-2 mg every 4 hours as needed pain. 12/25 No events overnight remains intubated off sedation. Tolerated CPAP for several hrs yesterday. Afebrile. 12/26 No events overnight. Patient tolerated CPAP for most of day yesterday. Awake and alert follows commands, on no sedation. 12/27 Patient was extubated yesterday on 4L oxygen. Awake. Afebrile. 12/28 No events overnight. Remains on 4L oxygen. Awake and alert. 12/30: RECONSULT NOTE: reconsulted as rapid response for hypoxia. per the family , patient had desaturation episode to the 60s, placed on NRB. family insisted on transfer back to ICU. when I saw patient on arrival to ICU, patient spo2 99% on NRB. pao2 on NRB was 150. patient is well-known to me with baseline spo2 82- 86% on 5L o2 by NC at home. family states he has another pneumonia. on my review of CXR and lab evidence, unclear if this is new pneumonia vs. old chronic lung disease. patient denies sob or new symptoms. 12/31: no changes. remains on simple mask at 6LPM. not in distress. family does not want to leave ICU and wants to continue ICU care for the remainder of the hospitalization. long discussion about needing to de-escalate level of care prior to hospital discharge. 01/07 Reconsult for Resp. distress. Patient was placed on BIPAP with 60% FIO2. ABG this morning showed some improvements in his resp acidosis with PH:7.34, CO2 72 from 82. CXR from 16/[address] chest today. 01/08 Patient was intubated this morning for worsening resp acidosis. CT chest yesterday showed pneumonia/aspiration. On Diprivan for sedation. Afebrile. 01/09 Patient is intubated and on low dose Diprivan drip. Afebrile. 01/10 Patient remains intubated. Awake, tolerated CPAP for most of day yesterday. Afebrile. 01/11 No events overnight. Awake and alert off sedation, tolerated CPAP all day yesterday. Afebrile. 01/12: Family concern regarding testicular swelling. I went over available laboratories. Will check hepatitis C genotype and PCR viral load today. We will also check C. difficile per family request. Patient tolerated CPAP yesterday for around 10 hours. Has been on CPAP since 8 AM this morning. FiO2 35%. 01/13: Afebrile. Remains on CPAP trial 16/08 at 35%. All x-rays pending. Long discussion with family at bedside and via telephone. Plan for bronchoscopy tomorrow if okay with 2 other daughters with pulmonology. 01/14: remains intubated, sedated. plan for bronch today with pulmonary at bedside. failing SBTs. 01/15: intubated and sedated. will attempt SBT today. discussion yesterday with family: if he passes SBT, will proceed with extubation, but high risk for decompensation and re-intubation. if he gets reintubated again, will need trach/ peg to continue forward and aggressive care. 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 01/16: Remains orally intubated on mechanical ventilation. ABG done today borderline. Resumed Lasix. GI started spironolactone to mobilize fluid. 01/17: Remains orally intubated on mechanical ventilation. Daily CPAP trials 01/18: Awake, alert, orally intubated on mechanical ventilation. Daily CPAP trials ongoing. Continues to have diarrhea. 01/19: Drowsy, easily arousable, orally intubated on mechanical ventilation. Daily CPAP trials with respiratory rate 28 tidal volumes 250s-300. 01/20: Awake, alert, orally intubated on mechanical ventilation at the time of my evaluation. Tolerating CPAP trials +5/+5. Respiratory rate 28-30, tidal volumes 250s-300. Discussed with Dr. Guerrier. Will proceed with extubation. Explained to family patient is high risk for intubation and that we will be using intermittent BiPAP if needed. 01/21: awake and alert. extubated yesterday. on 2.5L o2 by nc. somewhat tachypneic, but otherwise stable. BALs growing aspergillus. left pleural effusion persists on CT, but at this point, risk/benefit likely in favor of conservative management. 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 They continue to press for ongoing aggressive care and continue to state he will come home with them soon. 01/22: clinically worse today. back on BiPAP. fio2 still 35%, but very tired. family concerned about breathing: again I discussed the fact that he is deconditioned and I am concerned that he will fail after he tires out. I expressed my concern that this will keep happening and he will end up back on life-support. Family continues to intermittently refuse accuchecks and SQ insulin, but today have concerns that his blood sugar is higher than it has been and they asked his insulin be adjusted. I have increased his glycemic control and ask that the family allow us to administer the ordered insulin. Subjective: 01/23: Patient had a good morning however becoming more confused and agitated this afternoon. We will place back on BiPAP. Requesting melatonin at night for insomnia. States he gets confused at night likely ICU delirium. Objective Vital Signs / I&O: Vital Signs 01/22/18 17:31 01/22/18 18:00 01/22/18 19:50 Temperature Pulse Rate 83 84 79 Respiratory Rate 31 H 24 Blood Pressure Pulse Oximetry 96 97 01/22/18 20:00 01/22/18 22:00 01/22/18 23:15 Temperature 97.9 F Pulse Rate 80 80 79 Respiratory Rate 28 H 28 H 24 Blood Pressure 158/68 H Pulse Oximetry 96 98 01/22/18 23:50 01/23/18 00:00 01/23/18 02:00 Temperature 98.6 F Pulse Rate 86 85 Respiratory Rate 28 H Blood Pressure 145/67 H Pulse Oximetry 96 98 01/23/18 04:00 01/23/18 05:31 01/23/18 06:00 Temperature 97.4 F L Pulse Rate 83 83 89 Respiratory Rate 30 H 20 Blood Pressure Pulse Oximetry 96 01/23/18 07:00 01/23/18 08:00 01/23/18 08:58 Temperature 97.6 F Pulse Rate 82 86 Respiratory Rate 18 18 Blood Pressure 140/72 Pulse Oximetry 100 95 01/23/18 10:00 01/23/18 12:00 01/23/18 14:00 Temperature Pulse Rate 86 87 92 H Respiratory Rate Blood Pressure Pulse Oximetry 01/23/18 16:00 Temperature Pulse Rate 100 H Respiratory Rate Blood Pressure Pulse Oximetry Intake & Output 01/22/18 01/23/18 01/23/18 18:59 06:59 18:59 Intake Total 450 / 450 Output Total 525 / 525 400 / 400 Balance -75 / -75 -400 / -400 Weight 62.2 kg Intake: Oral 450 / 450 Output: Urine Amount (Catheter) 525 / 525 400 / 400 Condom 525 / 525 400 / 400 Other: # Incontinent Voids 2 Date of Last Bowel Movement 01/22/18 01/23/18 01/23/18 # Bowel Movements 3 # Incontinent Bowel Movements 1 Result Diagrams: 01/23/18 04:58 01/23/18 04:58 Other Results: Microbiology 01/14/18 11:15 Bronchial Washings - Bronchial Acid Fast Bacilli Smear - Final No acid fast bacilli seen 01/14/18 11:15 Bronchial Washings - Bronchial Mycobacterial Culture - Preliminary No growth in 1 week 01/14/18 11:15 Bronchial Washings - Bronchial Fungal Smear - Final No fungal elements seen 01/14/18 11:15 Bronchial Washings - Bronchial Fungal Culture - Preliminary Mold species-ID to follow 01/14/18 11:15 Bronchial - Bronchial Gram Stain - Final 01/14/18 11:15 Bronchial - Bronchial Bronchial Culture - Final Aspergillus sp not fumigatus 01/14/18 11:15 Bronchial Brushings - Bronchial Bronchial [place] Culture - Final Aspergillus sp not fumigatus 01/14/18 00:45 Stool Stool Occult Blood (LUIS FELIPE) - Final Hemoccult negative 01/08/18 09:11 Sputum - Endotracheal Gram Stain - Final 01/08/18 09:11 Sputum - Endotracheal Sputum Culture - Final Heavy growth normal respiratory vaishnavi 01/02/18 03:40 Stool Stool Occult Blood (LUIS FELIPE) - Final Hemoccult positive 12/19/17 21:20 Blood - Peripheral Aerobic Blood Culture - Final No growth in 5 days 12/19/17 21:20 Blood - Peripheral Anaerobic Blood Culture - Final No growth in 5 days 12/19/17 21:30 Blood - Peripheral Aerobic Blood Culture - Final No growth in 5 days 12/19/17 21:30 Blood - Peripheral Anaerobic Blood Culture - Final No growth in 5 days 12/20/17 14:10 Sputum - Endotracheal Gram Stain - Final 12/20/17 14:10 Sputum - Endotracheal Sputum Culture - Final Heavy growth normal respiratory vaishnavi 12/20/17 11:50 Clean Catch Urine Urine Culture - Final No growth in 48 hours 12/20/17 11:50 Urine - Catheterized Urine Legionella Antigen - Final Presumptive negative for Legionella pneumophila serogroup 1 antigen in urine, suggesting no recent or recurrent infection. Infection due to Legionella cannot be ruled out since other serogroups and species may cause disease, antigen may not be present in urine in early infection, and the level of antigen present in the urine may be below the detection limit of the test. 12/20/17 11:50 Urine - Catheterized Urine Streptococcus pneumoniae Antigen ( M - Final Presumptive negative for streptococcus pneumoniae antigen, suggesting no current or recent infection. Infection due to Streptococcus pneumoniae cannot be ruled out since the antigen present in the sample may be below the detection limit of the test. Imaging: Chest X-Ray 12/19/17 21:26 CONCLUSION: Worsening airspace process right lower lung most likely pneumonia with completely opacified left hemithorax probably due to a pleural effusion and/or left lung consolidation/collapse. Underlying mass is difficult to exclude. Chest X-Ray 12/20/17 04:19 CONCLUSION: 1. Worsening right upper lobe consolidation. 2. Slightly improved right base consolidation. 3. Volume loss, consolidation and pleural effusion on the left slightly improved. Chest X-Ray 12/21/17 05:00 CONCLUSION: No significant interval change. Persistent left-sided pleural effusion and pulmonary parenchymal opacity along with hazy right lung opacity. Chest X-Ray 12/23/17 00:00 CONCLUSION: Endotracheal tube tip at the [place]. No other significant interval change. Persistent left pleural effusion and bilateral pulmonary parenchymal opacity. Chest X-Ray 12/24/17 06:00 CONCLUSION: No significant interval change. Left-sided pleural effusion and mild bilateral parenchymal opacity again seen. Chest X-Ray 12/25/17 06:00 CONCLUSION: No significant change. Chest X-Ray 12/29/17 12:02 CONCLUSION: 1. Interval extubation. 2. No significant change in the left pleural-based opacity calcification. Chest X-Ray 12/30/17 00:00 CONCLUSION: 1. Worsening airspace disease in the right mid to lower lung zones. 2. Persistent prominent left-sided pleural thickening and calcified pleural plaques with associated volume loss. 3. Stable right apical pleural-parenchymal scarring. Chest X-Ray 12/31/17 00:00 CONCLUSION: 1. Slightly improved right mid to lower lung zone airspace disease. 2. Persistent prominent diffuse left-sided pleural opacity/thickening with associated left lung volume loss. 3. Stable right apical pleural parenchymal scarring. Abdomen X-Ray 01/01/18 00:00 CONCLUSION: 1. No bowel obstruction, ileus or perforation. 2. Degenerative changes and scoliosis of the lumbar spine. Chest X-Ray 01/05/18 00:00 CONCLUSION: Stable chest with prominent lateral left-sided pleural opacity likely pleural effusion. Pleural-parenchymal density right lung is also stable. Chest CT 01/07/18 00:00 CONCLUSION: 1. Postsurgical features of suspected previous left-sided lobectomy with volume loss and mediastinal shift to the left. 2. Bulky left-sided pleural plaques with chronic appearing small to moderate sized loculated left pleural effusion. 3. Dense airspace consolidation in the superior segment of the right lower lobe with patchy interstitial and groundglass opacities throughout the right lower lobe. Differential considerations include pneumonia and aspiration in the appropriate clinical setting. 4. Trace right-sided pleural effusion with fluid extending into the major fissure. 5. Mild coronary artery calcifications. 6. Small amount of ascites in the visualized upper abdomen. Chest X-Ray 01/08/18 06:58 CONCLUSION: Stable chest following ablation. Moderate either pleural thickening or pleural fluid remains on the right. Moderate interstitial edema persist. Abdomen Ultrasound 01/09/18 00:00 CONCLUSION: 1. Limited examination due to obscuration by bowel gas. 2. Simple left renal cyst. 3. Moderate amount of ascites in the right upper quadrant. Chest X-Ray 01/10/18 06:00 CONCLUSION: Stable to slight increase in right basilar airspace disease. Loculated left pleural fluid and left basilar opacity are stable. Chest X-Ray 01/12/18 07:41 CONCLUSION: 1. Stable ETT and NGT. 2. Slightly improved airspace disease in the right mid to lower lung zones. 3. Persistent moderate loculated left-sided pleural effusion with associated left lung airspace disease and volume loss. Abdomen/Pelvis CT 01/13/18 00:00 CONCLUSION: 1. Patchy airspace disease right lung base and chronic loculated left pleural effusion not significantly changed since January 07. 2. Mild ascites with liver cirrhosis. 3. NG tip in stomach. Previous cholecystectomy. No bowel obstruction. 4. Multiple subacute lower right rib fractures. Venous Doppler Study 01/13/18 00:00 CONCLUSION: 1. The study is negative for lower extremity deep venous thrombosis. Chest X-Ray 01/14/18 06:00 CONCLUSION: Diffuse edema versus pneumonia. There has been no significant change when compared to the prior exam. Chest X-Ray 01/14/18 11:24 CONCLUSION: No pneumothorax as questioned. Grossly stable chest appearance. Abdomen X-Ray 01/15/18 00:00 CONCLUSION: Enteric tube placement as above. Chest X-Ray 01/17/18 10:35 CONCLUSION: No significant change. Chest X-Ray 01/20/18 00:00 CONCLUSION: Diffuse increased interstitial markings related to either underlying process such as edema or underlying interstitial disease. Suspected large left effusion. Extrapleural density seen over the right upper chest which is stable. Chest CT 01/20/18 17:52 CONCLUSION: 1. Persistent areas of increased density in the subpleural region at the right apex and in the posterior right lower lung. These are unchanged from the prior exam. These could represent areas of pneumonia. The chronicity of these densities is not known. There is some cavitary change in the lateral right lower lung. All these findings are unchanged. Neoplasm cannot be excluded. These should be followed to complete resolution. If these areas persists, but can be followed up with a PET FDG study. 2. Volume loss in the left chest with increased density in the left perihilar region. There is bronchiectasis with material within the bronchi at the left lower lung. 3. Moderate left pleural effusion with thickening of the pleura and calcification of the visceral pleura. This appearance is unchanged. 4. Suspected cirrhosis and splenomegaly seen in the upper abdomen. There is ascites seen in the upper abdomen. Chest X-Ray 01/23/18 00:00 CONCLUSION: Stable findings including right apical extrapleural density and concentric opacity about the left hemithorax. Objective Remarks: GENERAL: 82-year-old male lying in bed. HEENT: Normocephalic. Atraumatic. Positive pallor, no icterus. Mucous membranes are moist NECK: Trachea is midline. No JVD CHEST: bipap 35% fio2. Equal chest rise. Coarse crackles. Diminished breath sounds right lobe. CARDIOVASCULAR: Normal rate, regular rhythm. ABDOMEN: Soft, nontender, nondistended. No guarding. MUSCULOSKELETAL: Pulses 2+. significant evidence of scrotal edema. 1+ peripheral edema. No mottling NEUROLOGICAL: RASS - 0. Awake and alert and following commands. 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 Plan to use intermittent BiPAP as needed. patient is at high risk of reintubation. Prednisone stopped and patient switched to IV methylprednisolone succinate 40 mg IV every [address] Lazcano Pulmonary is following- Dr. Lazcano CT chest: Postsurgical features of suspected previous left-sided lobectomy with volume loss and mediastinal shift to the left. Bulky left-sided pleural plaques with chronic appearing small to moderate sized loculated left pleural effusion. Dense airspace consolidation in the superior segment of the right lower lobe with patchy interstitial and groundglass opacities throughout the right lower lobe. 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 Normal left ventricular size. Wall thickness is normal. No regional wall motion abnormalities are present. Diffuse calcification of the aortic valve but no significant stenosis. There is mild to moderate tricuspid valve regurgitation. The estimated pulmonary arterial pressure is 76.9 mmHg with severe pulmonary hypertension. Previously on furosemide 40 mg by tube daily. Restarted Lasix 40 mg IV every 12 hourly on 01/16. Discontinued GI started spironolactone 25 mg on 01/16 As needed labetalol and Nitropaste for hypertension Renal/: History of nephrolithiasis Monitor renal function, I/O's, electrolytes replacement per protocol. Stopped Lasix 40 mg IV every 12 hourly on 01/20 in view of prerenal azotemia. Spironolactone 25 mg daily started 01/16 FEN/GI: Severe acute protein calorie malnutrition Hep C IgG positive. Genotype negative. PCR viral load negative. Hypernatremia Diarrhea speech eval and advance diet per their recommendations Lansoprazole for GI prophylaxis Docusate sodium/senna 1 tablet twice daily for bowel regimen GI is following US abdomen: Limited exam due to obscuration by bowel gas.Simple left renal cyst. small ascites in the right upper quadrant. Positive HepC IgG hepatitis C genotype and PCR viral load negative Start on Xifaxan 550 twice daily for diarrhea ID: Healthcare associated pneumonia Severe sepsis- present on admission Normocytic anemia Thrombocytopenia Aspergillus pneumonia Follicles per ID Voriconazole IV started on 01/16 per ID-changed to micafungin on 01/19 as family concerned that it was causing lethargy. BAL cultures growing Aspergillus, mold Follow up on sputum 01/08 normal resp vaishnavi Sputum culture 12/20-shea resp vaishnavi Blood cultures 12/19 no growth Urine UA with urine culture 12/20-NGTD Negative Legionella and pneumococcal urinary antigens Endocrine: Hyperglycemia of critical illness --Currently on insulin detemir 15 units BID - increase SSI to high dose q4h. Heme: Normocytic anemia Thrombocytopenia Monitor CBC, Hep PLT ab negative MSK:: History of left IT nailing 11/14 Vitamin D deficiency PT evaluate and treat Prophylaxis: GI Prophylaxis Lansoprazole DVT Prophylaxis -- SCDs - Enoxaparin held for anemia, thrombocytopenia and Hemoccult positive Lines: Peripheral IVs. Level 2 follow-up.
[2018-01-23] MEDS ORDERED: Acetaminophen Inj 650 MG/65 ML VIAL IV.SIG ONE (17:25)
[2018-01-23] MEDS ORDERED: Melatonin 5 MG Tablet PO PRN (21:00)
[2018-01-23] MEDS: Micafungin Inj 150 MG in Sodium Chlor 0.9% Inj 100 ML IV.SIG SCH (21:57)
[2018-01-24] MEDS: Insulin NovoLIN Regular Correctional Sugar Inj SQ SCH ×6 (00:05→22:17)
[2018-01-24] MEDS: Oral Hygiene Kit OROPHARYNG SCH ×4 (00:06→21:21)
--- NOTE | 2018-01-24 08:44 | P.PNPL ---
Subjective Interval history: No events overnight. On 4L oxygen. Afebrile. Physical Exam Vital signs: Vital Signs 01/23/18 08:58 01/23/18 10:00 01/23/18 12:00 Temperature 97.9 F Pulse Rate 86 81 Respiratory Rate 29 H Blood Pressure 148/63 H Pulse Oximetry 95 95 01/23/18 14:00 01/23/18 16:00 01/23/18 18:00 Temperature 98.0 F Pulse Rate 92 H 96 H 96 H Respiratory Rate 36 H Blood Pressure 151/72 H Pulse Oximetry 96 01/23/18 20:00 01/23/18 20:04 01/23/18 22:00 Temperature 98.5 F Pulse Rate 93 H 91 H 90 Respiratory Rate 31 H 18 Blood Pressure 147/64 H Pulse Oximetry 95 95 01/23/18 23:55 01/24/18 00:00 01/24/18 00:05 Temperature 98.1 F Pulse Rate 86 84 Respiratory Rate 18 24 Blood Pressure 140/63 Pulse Oximetry 100 100 01/24/18 01:00 01/24/18 02:00 01/24/18 04:00 Temperature 98.8 F Pulse Rate 84 85 Respiratory Rate 27 H Blood Pressure 132/63 Pulse Oximetry 96 99 01/24/18 06:00 Temperature Pulse Rate 91 H Respiratory Rate Blood Pressure Pulse Oximetry Intake & Output 01/23/18 01/24/18 01/24/18 18:59 06:59 18:59 Intake Total 720 / 720 575 / 575 Output Total 525 / 525 300 / 300 Balance 195 / 195 275 / 275 Weight 62.2 kg Intake: IV 45 / 45 Ofirmev Inj 650 mg In 65 ml @ 45 / 45 260 mls/hr IV.SIG ONCE ONE Rx#: [id number] Oral 720 / 720 530 / 530 Output: Urine 525 / 525 Urine Amount (Catheter) 300 / 300 Condom 300 / 300 Other: Date of Last Bowel Movement 01/23/18 01/23/18 # Bowel Movements 1 1 - Constitutional no acute distress - Routine HEENT Exam Head: Present: normocephalic, atraumatic Eye: Present: EOMI, PERRL, normal accommodation, conjunctivae pink - Routine Neck Exam Present: supple, full ROM, trachea midline - Routine Respiratory Exam Present: CTA bilaterally - Routine Cardiovascular Exam Present: RRR, S1, S2 - Routine Abdominal Exam Present: soft, normoactive bowel sounds - Routine Skin Exam Present: intact, dry - Routine Neurological Exam Present: alert, CN II-XII intact - Urinary Catheter Management Straight Cath placed during this visit: yes, but has since been removed by the nurse Reason for continuing: Not indwelling catheter Insertion date: 12/23/17 Insertion time: 01:00 Removal date: 12/22/17 Removal time: 01:00 Condom Cath placed during this visit: no Assessment and Plan - Plan Resp Insuff s/p extubation Pneumonia Pulmonary Aspergillosis COPD Status post left lower lobe lobectomy pulmonary hypertension CHF DM s/p Fracture, intertrochanteric, left femur Anemia Plan Continue with oxygen keep sats >92% Bronchodilators( DuoNeb, Symbicort) Solumederol 40mg Q12 BIPAP for resp distress Cont abx per ID. On Micafungin. s/p bronch 01/14: Aspergillus PT and OT Evaluation GI/DVT prophylaxis D/W family at bedside.
[2018-01-24] MEDS: Chlorhexidine 0.12% Oral Kit 15 ML UDC OROPHARYNG SCH ×2 (08:46→22:17)
[2018-01-24] MEDS: Budesonide-Formoterol 160/4.5 MCG 6 GM Inhaler INH SCH ×2 (09:45→22:20)
[2018-01-24] MEDS: Spironolactone 25 MG Tablet PO SCH (09:49)
[2018-01-24] MEDS: Carboxymethylcellulose 0.5% Opth Drops 15 ML Bottle EACH EYE SCH ×2 (09:58→22:20)
[2018-01-24] MEDS: rifAXIMin 550 MG Tablet PO SCH (09:59)
[2018-01-24 10:10] LABS: Baso % (Auto) 0.1 % (0.0-2.0); Eos % (Auto) 0.2 % (0.0-4.0); Hematocrit 31.3 % (39.0-51.0); Hemoglobin 10.5 gm/dL (13.0-17.0); Lymph # (Auto) 0.8 th/mm3 (1.0-4.8); Lymph % (Auto) 11.2 % (9.0-44.0); Mean Corpuscular HGB Conc 33.4 % (32.0-36.0); Mean Corpuscular Hemoglobin 30.2 pg (27.0-34.0); Mean Corpuscular Volume 90.3 fL (80.0-100.0); Mean Platelet Volume 7.9 fL (7.0-11.0); Mono # (Auto) 0.5 th/mm3 (0.0-0.9); Neut % (Auto) 81.5 % (16.0-70.0); Platelet Count 147 th/mm3 (150-450); Red Blood Count 3.47 mil/mm3 (4.50-5.90); Red Cell Distribution Width 15.5 % (11.6-17.2); White Blood Count 7.3 th/mm3 (4.0-11.0)
--- NOTE | 2018-01-24 10:18 | P.PNCC ---
Subjective Subjective Remarks/Hospital Course: 82-year-old male with past medical history of COPD and CHF presents for an evaluation of shortness of breath and hypoxemia worsening over past few days. The nebulizer treatments helped initially however today there were not helpful. EMS reports on scene the O2 sat was in the 80s. He received high flow oxygen and nebulized albuterol in route here. His blood pressure initially in the emergency department was 200/100 however trended down to about 160/90. BiPAP was started in the emergency department with improvement in his O2 sat that has trended towards the high 90s with 100% FiO2 on BiPAP. Shortly after transfer to ICU the patient continues to to be more hypoxemic and restless requiring endotracheal intubation and mechanical ventilation. 12/20: intubated and sedated. still hypercarbic with [id number] respiratory acidosis. family unhappy that patient was intubated: they insisted last night on being a Full Code, but apparently the daughter required that she be notified of exactly what SpO2 the patient was at, and it had to reach a certain low level before she would be ok with intubation. Per overnight records , patient presented with severe respiratory distress, and family reports that EMS stated patient "wouldn't make it all the way to [facility]" due to his pulmonary instability. This morning, hypoxia is somewhat improved. remains on broad spectrum antibiotics. I explained to family that this is likely a new pneumonia causing respiratory failure. I also explained that after recent hip fracture and recent prolonged hospitalization, his baseline end-stage lung disease and NYHA Class IV symptoms are likely to worsen, and this may be worsening of his overall end-stage disease processes. Family continues to state that our facility caused his lung failure during the prior hospitalization. They are also concerned about his poor peripheral perfusion and oliguria, which concerns me also: I explained that his heart failure could not tolerate significant amount of iv fluids, and we have already given him 1500mL over the last 12 hours, but they have insisted on additional iv fluids. I explained he had severe sepsis and the mortality associated with this. Daughter continues to remind me that her father "is coming home with her and getting better" as she has stated multiple times in the past. 12/21: no improvements. remains intubated. clinically becoming volume overloaded - will be forced to start diuresis. 12/22: mental status slightly improved. still failing weaning attempts. 12/23: Afebrile. Currently on PSV trial 15/7 at 45%. Discussed with and daughter at bedside. Chest x-ray revealed ET tube at [place]. Retracted 1 cm. Tolerating tube feeds with family requested 40 cc an hour. 12/24: Afebrile. Currently CPAP trial FiO2 at 45%. Tolerating tube feeds if family requested 40 cc an hour. Receiving morphine 1-2 mg every 4 hours as needed pain. 12/25 No events overnight remains intubated off sedation. Tolerated CPAP for several hrs yesterday. Afebrile. 12/26 No events overnight. Patient tolerated CPAP for most of day yesterday. Awake and alert follows commands, on no sedation. 12/27 Patient was extubated yesterday on 4L oxygen. Awake. Afebrile. 12/28 No events overnight. Remains on 4L oxygen. Awake and alert. 12/30: RECONSULT NOTE: reconsulted as rapid response for hypoxia. per the family , patient had desaturation episode to the 60s, placed on NRB. family insisted on transfer back to ICU. when I saw patient on arrival to ICU, patient spo2 99% on NRB. pao2 on NRB was 150. patient is well-known to me with baseline spo2 82- 86% on 5L o2 by NC at home. family states he has another pneumonia. on my review of CXR and lab evidence, unclear if this is new pneumonia vs. old chronic lung disease. patient denies sob or new symptoms. 12/31: no changes. remains on simple mask at 6LPM. not in distress. family does not want to leave ICU and wants to continue ICU care for the remainder of the hospitalization. long discussion about needing to de-escalate level of care prior to hospital discharge. 01/07 Reconsult for Resp. distress. Patient was placed on BIPAP with 60% FIO2. ABG this morning showed some improvements in his resp acidosis with PH:7.34, CO2 72 from 82. CXR from 16/[address] chest today. 01/08 Patient was intubated this morning for worsening resp acidosis. CT chest yesterday showed pneumonia/aspiration. On Diprivan for sedation. Afebrile. 01/09 Patient is intubated and on low dose Diprivan drip. Afebrile. 01/10 Patient remains intubated. Awake, tolerated CPAP for most of day yesterday. Afebrile. 01/11 No events overnight. Awake and alert off sedation, tolerated CPAP all day yesterday. Afebrile. 01/12: Family concern regarding testicular swelling. I went over available laboratories. Will check hepatitis C genotype and PCR viral load today. We will also check C. difficile per family request. Patient tolerated CPAP yesterday for around 10 hours. Has been on CPAP since 8 AM this morning. FiO2 35%. 01/13: Afebrile. Remains on CPAP trial 16/08 at 35%. All x-rays pending. Long discussion with family at bedside and via telephone. Plan for bronchoscopy tomorrow if okay with 2 other daughters with pulmonology. 01/14: remains intubated, sedated. plan for bronch today with pulmonary at bedside. failing SBTs. 01/15: intubated and sedated. will attempt SBT today. discussion yesterday with family: if he passes SBT, will proceed with extubation, but high risk for decompensation and re-intubation. if he gets reintubated again, will need trach/ peg to continue forward and aggressive care. 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 01/16: Remains orally intubated on mechanical ventilation. ABG done today borderline. Resumed Lasix. GI started spironolactone to mobilize fluid. 01/17: Remains orally intubated on mechanical ventilation. Daily CPAP trials 01/18: Awake, alert, orally intubated on mechanical ventilation. Daily CPAP trials ongoing. Continues to have diarrhea. 01/19: Drowsy, easily arousable, orally intubated on mechanical ventilation. Daily CPAP trials with respiratory rate 28 tidal volumes 250s-300. 01/20: Awake, alert, orally intubated on mechanical ventilation at the time of my evaluation. Tolerating CPAP trials +5/+5. Respiratory rate 28-30, tidal volumes 250s-300. Discussed with Dr. Guerrier. Will proceed with extubation. Explained to family patient is high risk for intubation and that we will be using intermittent BiPAP if needed. 01/21: awake and alert. extubated yesterday. on 2.5L o2 by nc. somewhat tachypneic, but otherwise stable. BALs growing aspergillus. left pleural effusion persists on CT, but at this point, risk/benefit likely in favor of conservative management. 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 They continue to press for ongoing aggressive care and continue to state he will come home with them soon. 01/22: clinically worse today. back on BiPAP. fio2 still 35%, but very tired. family concerned about breathing: again I discussed the fact that he is deconditioned and I am concerned that he will fail after he tires out. I expressed my concern that this will keep happening and he will end up back on life-support. Family continues to intermittently refuse accuchecks and SQ insulin, but today have concerns that his blood sugar is higher than it has been and they asked his insulin be adjusted. I have increased his glycemic control and ask that the family allow us to administer the ordered insulin. 01/23: Patient had a good morning however becoming more confused and agitated this afternoon. We will place back on BiPAP. Requesting melatonin at night for insomnia. States he gets confused at night likely ICU delirium. Subjective: 01/24: Intermittently on BiPAP overnight. Became agitated and confused but improved. Hemoglobin currently 10.4. BMP pending. No other acute issues ongoing. Objective Vital Signs / I&O: Vital Signs 01/23/18 12:00 01/23/18 14:00 01/23/18 16:00 Temperature 97.9 F 98.0 F Pulse Rate 81 92 H 96 H Respiratory Rate 29 H 36 H Blood Pressure 148/63 H 151/72 H Pulse Oximetry 95 96 01/23/18 18:00 01/23/18 20:00 01/23/18 20:04 Temperature 98.5 F Pulse Rate 96 H 93 H 91 H Respiratory Rate 31 H 18 Blood Pressure 147/64 H Pulse Oximetry 95 95 01/23/18 22:00 01/23/18 23:55 01/24/18 00:00 Temperature 98.1 F Pulse Rate 90 86 84 Respiratory Rate 18 24 Blood Pressure 140/63 Pulse Oximetry 100 01/24/18 00:05 01/24/18 01:00 01/24/18 02:00 Temperature Pulse Rate 84 Respiratory Rate Blood Pressure Pulse Oximetry 100 96 01/24/18 04:00 01/24/18 06:00 01/24/18 07:00 Temperature 98.8 F Pulse Rate 85 91 H 93 H Respiratory Rate 27 H 18 Blood Pressure 132/63 Pulse Oximetry 99 Intake & Output 01/23/18 01/24/18 01/24/18 18:59 06:59 18:59 Intake Total 720 / 720 575 / 575 Output Total 525 / 525 300 / 300 Balance 195 / 195 275 / 275 Weight 62.2 kg Intake: IV 45 / 45 Ofirmev Inj 650 mg In 65 ml @ 45 / 45 260 mls/hr IV.SIG ONCE ONE Rx#: [id number] Oral 720 / 720 530 / 530 Output: Urine 525 / 525 Urine Amount (Catheter) 300 / 300 Condom 300 / 300 Other: Date of Last Bowel Movement 01/23/18 01/23/18 # Bowel Movements 1 1 Result Diagrams: 01/24/18 09:45 01/23/18 04:58 Other Results: Chest X-Ray 12/19/17 21:26 CONCLUSION: Worsening airspace process right lower lung most likely pneumonia with completely opacified left hemithorax probably due to a pleural effusion and/or left lung consolidation/collapse. Underlying mass is difficult to exclude. Chest X-Ray 12/20/17 04:19 CONCLUSION: 1. Worsening right upper lobe consolidation. 2. Slightly improved right base consolidation. 3. Volume loss, consolidation and pleural effusion on the left slightly improved. Chest X-Ray 12/21/17 05:00 CONCLUSION: No significant interval change. Persistent left-sided pleural effusion and pulmonary parenchymal opacity along with hazy right lung opacity. Chest X-Ray 12/23/17 00:00 CONCLUSION: Endotracheal tube tip at the [place]. No other significant interval change. Persistent left pleural effusion and bilateral pulmonary parenchymal opacity. Chest X-Ray 12/24/17 06:00 CONCLUSION: No significant interval change. Left-sided pleural effusion and mild bilateral parenchymal opacity again seen. Chest X-Ray 12/25/17 06:00 CONCLUSION: No significant change. Chest X-Ray 12/29/17 12:02 CONCLUSION: 1. Interval extubation. 2. No significant change in the left pleural-based opacity calcification. Chest X-Ray 12/30/17 00:00 CONCLUSION: 1. Worsening airspace disease in the right mid to lower lung zones. 2. Persistent prominent left-sided pleural thickening and calcified pleural plaques with associated volume loss. 3. Stable right apical pleural-parenchymal scarring. Chest X-Ray 12/31/17 00:00 CONCLUSION: 1. Slightly improved right mid to lower lung zone airspace disease. 2. Persistent prominent diffuse left-sided pleural opacity/thickening with associated left lung volume loss. 3. Stable right apical pleural parenchymal scarring. Abdomen X-Ray 01/01/18 00:00 CONCLUSION: 1. No bowel obstruction, ileus or perforation. 2. Degenerative changes and scoliosis of the lumbar spine. Chest X-Ray 01/05/18 00:00 CONCLUSION: Stable chest with prominent lateral left-sided pleural opacity likely pleural effusion. Pleural-parenchymal density right lung is also stable. Chest CT 01/07/18 00:00 CONCLUSION: 1. Postsurgical features of suspected previous left-sided lobectomy with volume loss and mediastinal shift to the left. 2. Bulky left-sided pleural plaques with chronic appearing small to moderate sized loculated left pleural effusion. 3. Dense airspace consolidation in the superior segment of the right lower lobe with patchy interstitial and groundglass opacities throughout the right lower lobe. Differential considerations include pneumonia and aspiration in the appropriate clinical setting. 4. Trace right-sided pleural effusion with fluid extending into the major fissure. 5. Mild coronary artery calcifications. 6. Small amount of ascites in the visualized upper abdomen. Chest X-Ray 01/08/18 06:58 CONCLUSION: Stable chest following ablation. Moderate either pleural thickening or pleural fluid remains on the right. Moderate interstitial edema persist. Abdomen Ultrasound 01/09/18 00:00 CONCLUSION: 1. Limited examination due to obscuration by bowel gas. 2. Simple left renal cyst. 3. Moderate amount of ascites in the right upper quadrant. Chest X-Ray 01/10/18 06:00 CONCLUSION: Stable to slight increase in right basilar airspace disease. Loculated left pleural fluid and left basilar opacity are stable. Chest X-Ray 01/12/18 07:41 CONCLUSION: 1. Stable ETT and NGT. 2. Slightly improved airspace disease in the right mid to lower lung zones. 3. Persistent moderate loculated left-sided pleural effusion with associated left lung airspace disease and volume loss. Abdomen/Pelvis CT 01/13/18 00:00 CONCLUSION: 1. Patchy airspace disease right lung base and chronic loculated left pleural effusion not significantly changed since January 07. 2. Mild ascites with liver cirrhosis. 3. NG tip in stomach. Previous cholecystectomy. No bowel obstruction. 4. Multiple subacute lower right rib fractures. Venous Doppler Study 01/13/18 00:00 CONCLUSION: 1. The study is negative for lower extremity deep venous thrombosis. Chest X-Ray 01/14/18 06:00 CONCLUSION: Diffuse edema versus pneumonia. There has been no significant change when compared to the prior exam. Chest X-Ray 01/14/18 11:24 CONCLUSION: No pneumothorax as questioned. Grossly stable chest appearance. Abdomen X-Ray 01/15/18 00:00 CONCLUSION: Enteric tube placement as above. Chest X-Ray 01/17/18 10:35 CONCLUSION: No significant change. Chest X-Ray 01/20/18 00:00 CONCLUSION: Diffuse increased interstitial markings related to either underlying process such as edema or underlying interstitial disease. Suspected large left effusion. Extrapleural density seen over the right upper chest which is stable. Chest CT 01/20/18 17:52 CONCLUSION: 1. Persistent areas of increased density in the subpleural region at the right apex and in the posterior right lower lung. These are unchanged from the prior exam. These could represent areas of pneumonia. The chronicity of these densities is not known. There is some cavitary change in the lateral right lower lung. All these findings are unchanged. Neoplasm cannot be excluded. These should be followed to complete resolution. If these areas persists, but can be followed up with a PET FDG study. 2. Volume loss in the left chest with increased density in the left perihilar region. There is bronchiectasis with material within the bronchi at the left lower lung. 3. Moderate left pleural effusion with thickening of the pleura and calcification of the visceral pleura. This appearance is unchanged. 4. Suspected cirrhosis and splenomegaly seen in the upper abdomen. There is ascites seen in the upper abdomen. Chest X-Ray 01/23/18 00:00 CONCLUSION: Stable findings including right apical extrapleural density and concentric opacity about the left hemithorax. Imaging: Chest X-Ray 12/19/17 21:26 CONCLUSION: Worsening airspace process right lower lung most likely pneumonia with completely opacified left hemithorax probably due to a pleural effusion and/or left lung consolidation/collapse. Underlying mass is difficult to exclude. Chest X-Ray 12/20/17 04:19 CONCLUSION: 1. Worsening right upper lobe consolidation. 2. Slightly improved right base consolidation. 3. Volume loss, consolidation and pleural effusion on the left slightly improved. Chest X-Ray 12/21/17 05:00 CONCLUSION: No significant interval change. Persistent left-sided pleural effusion and pulmonary parenchymal opacity along with hazy right lung opacity. Chest X-Ray 12/23/17 00:00 CONCLUSION: Endotracheal tube tip at the [place]. No other significant interval change. Persistent left pleural effusion and bilateral pulmonary parenchymal opacity. Chest X-Ray 12/24/17 06:00 CONCLUSION: No significant interval change. Left-sided pleural effusion and mild bilateral parenchymal opacity again seen. Chest X-Ray 12/25/17 06:00 CONCLUSION: No significant change. Chest X-Ray 12/29/17 12:02 CONCLUSION: 1. Interval extubation. 2. No significant change in the left pleural-based opacity calcification. Chest X-Ray 12/30/17 00:00 CONCLUSION: 1. Worsening airspace disease in the right mid to lower lung zones. 2. Persistent prominent left-sided pleural thickening and calcified pleural plaques with associated volume loss. 3. Stable right apical pleural-parenchymal scarring. Chest X-Ray 12/31/17 00:00 CONCLUSION: 1. Slightly improved right mid to lower lung zone airspace disease. 2. Persistent prominent diffuse left-sided pleural opacity/thickening with associated left lung volume loss. 3. Stable right apical pleural parenchymal scarring. Abdomen X-Ray 01/01/18 00:00 CONCLUSION: 1. No bowel obstruction, ileus or perforation. 2. Degenerative changes and scoliosis of the lumbar spine. Chest X-Ray 01/05/18 00:00 CONCLUSION: Stable chest with prominent lateral left-sided pleural opacity likely pleural effusion. Pleural-parenchymal density right lung is also stable. Chest CT 01/07/18 00:00 CONCLUSION: 1. Postsurgical features of suspected previous left-sided lobectomy with volume loss and mediastinal shift to the left. 2. Bulky left-sided pleural plaques with chronic appearing small to moderate sized loculated left pleural effusion. 3. Dense airspace consolidation in the superior segment of the right lower lobe with patchy interstitial and groundglass opacities throughout the right lower lobe. Differential considerations include pneumonia and aspiration in the appropriate clinical setting. 4. Trace right-sided pleural effusion with fluid extending into the major fissure. 5. Mild coronary artery calcifications. 6. Small amount of ascites in the visualized upper abdomen. Chest X-Ray 01/08/18 06:58 CONCLUSION: Stable chest following ablation. Moderate either pleural thickening or pleural fluid remains on the right. Moderate interstitial edema persist. Abdomen Ultrasound 01/09/18 00:00 CONCLUSION: 1. Limited examination due to obscuration by bowel gas. 2. Simple left renal cyst. 3. Moderate amount of ascites in the right upper quadrant. Chest X-Ray 01/10/18 06:00 CONCLUSION: Stable to slight increase in right basilar airspace disease. Loculated left pleural fluid and left basilar opacity are stable. Chest X-Ray 01/12/18 07:41 CONCLUSION: 1. Stable ETT and NGT. 2. Slightly improved airspace disease in the right mid to lower lung zones. 3. Persistent moderate loculated left-sided pleural effusion with associated left lung airspace disease and volume loss. Abdomen/Pelvis CT 01/13/18 00:00 CONCLUSION: 1. Patchy airspace disease right lung base and chronic loculated left pleural effusion not significantly changed since January 07. 2. Mild ascites with liver cirrhosis. 3. NG tip in stomach. Previous cholecystectomy. No bowel obstruction. 4. Multiple subacute lower right rib fractures. Venous Doppler Study 01/13/18 00:00 CONCLUSION: 1. The study is negative for lower extremity deep venous thrombosis. Chest X-Ray 01/14/18 06:00 CONCLUSION: Diffuse edema versus pneumonia. There has been no significant change when compared to the prior exam. Chest X-Ray 01/14/18 11:24 CONCLUSION: No pneumothorax as questioned. Grossly stable chest appearance. Abdomen X-Ray 01/15/18 00:00 CONCLUSION: Enteric tube placement as above. Chest X-Ray 01/17/18 10:35 CONCLUSION: No significant change. Chest X-Ray 01/20/18 00:00 CONCLUSION: Diffuse increased interstitial markings related to either underlying process such as edema or underlying interstitial disease. Suspected large left effusion. Extrapleural density seen over the right upper chest which is stable. Chest CT 01/20/18 17:52 CONCLUSION: 1. Persistent areas of increased density in the subpleural region at the right apex and in the posterior right lower lung. These are unchanged from the prior exam. These could represent areas of pneumonia. The chronicity of these densities is not known. There is some cavitary change in the lateral right lower lung. All these findings are unchanged. Neoplasm cannot be excluded. These should be followed to complete resolution. If these areas persists, but can be followed up with a PET FDG study. 2. Volume loss in the left chest with increased density in the left perihilar region. There is bronchiectasis with material within the bronchi at the left lower lung. 3. Moderate left pleural effusion with thickening of the pleura and calcification of the visceral pleura. This appearance is unchanged. 4. Suspected cirrhosis and splenomegaly seen in the upper abdomen. There is ascites seen in the upper abdomen. Chest X-Ray 01/23/18 00:00 CONCLUSION: Stable findings including right apical extrapleural density and concentric opacity about the left hemithorax. Objective Remarks: GENERAL: 82-year-old male lying in bed. HEENT: Normocephalic. Atraumatic. Positive pallor, no icterus. Mucous membranes are moist NECK: Trachea is midline. No JVD CHEST: bipap 35% fio2. Equal chest rise. Coarse crackles. Diminished breath sounds right lobe. CARDIOVASCULAR: Normal rate, regular rhythm. ABDOMEN: Soft, nontender, nondistended. No guarding. MUSCULOSKELETAL: Pulses 2+. significant evidence of scrotal edema. 1+ peripheral edema. No mottling NEUROLOGICAL: RASS - 0. Awake and alert and following commands. 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 Plan to use intermittent BiPAP as needed. patient is at high risk of reintubation. Prednisone stopped and patient switched to IV methylprednisolone succinate 40 mg IV every [address] Lazcano Pulmonary is following- Dr. Lazcano CT chest: Postsurgical features of suspected previous left-sided lobectomy with volume loss and mediastinal shift to the left. Bulky left-sided pleural plaques with chronic appearing small to moderate sized loculated left pleural effusion. Dense airspace consolidation in the superior segment of the right lower lobe with patchy interstitial and groundglass opacities throughout the right lower lobe. 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 Normal left ventricular size. Wall thickness is normal. No regional wall motion abnormalities are present. Diffuse calcification of the aortic valve but no significant stenosis. There is mild to moderate tricuspid valve regurgitation. The estimated pulmonary arterial pressure is 76.9 mmHg with severe pulmonary hypertension. Previously on furosemide 40 mg by tube daily. Restarted Lasix 40 mg IV every 12 hourly on 01/16. Discontinued GI started spironolactone 25 mg on 01/16 As needed labetalol and Nitropaste for hypertension Renal/: History of nephrolithiasis Monitor renal function, I/O's, electrolytes replacement per protocol. Stopped Lasix 40 mg IV every 12 hourly on 01/20 in view of prerenal azotemia. Spironolactone 25 mg daily started 01/16 FEN/GI: Severe acute protein calorie malnutrition Hep C IgG positive. Genotype negative. PCR viral load negative. Hypernatremia Diarrhea speech eval and advance diet per their recommendations Lansoprazole for GI prophylaxis Docusate sodium/senna 1 tablet twice daily for bowel regimen GI is following US abdomen: Limited exam due to obscuration by bowel gas.Simple left renal cyst. small ascites in the right upper quadrant. Positive HepC IgG hepatitis C genotype and PCR viral load negative Start on Xifaxan 550 twice daily for diarrhea along with bismuth 15 mL 3 times daily ID: Healthcare associated pneumonia Severe sepsis- present on admission Normocytic anemia Thrombocytopenia Aspergillus pneumonia Follicles per ID Voriconazole IV started on 01/16 per ID-changed to micafungin on 01/19 as family concerned that it was causing lethargy. BAL cultures growing Aspergillus, mold Follow up on sputum 01/08 normal resp vaishnavi Sputum culture 12/20-shea resp vaishnavi Blood cultures 12/19 no growth Urine UA with urine culture 12/20-NGTD Negative Legionella and pneumococcal urinary antigens Endocrine: Hyperglycemia of critical illness --Currently on insulin detemir 15 units BID - increase SSI to high dose q4h. Heme: Normocytic anemia Thrombocytopenia Monitor CBC, Hep PLT ab negative MSK:: History of left IT nailing 11/14 Vitamin D deficiency PT evaluate and treat Prophylaxis: GI Prophylaxis Lansoprazole DVT Prophylaxis -- SCDs - Enoxaparin held for anemia, thrombocytopenia and Hemoccult positive Lines: Peripheral IVs. Level 2 follow-up. Code Status: Full code Discussed Condition With: and daughter at bedside. Care plan discussed and all questions answered.
[2018-01-24 10:36] LABS: Anion Gap 6 meq/L (5-15); Blood Urea Nitrogen 36 mg/dL (7-18); Calcium 8.5 mg/dL (8.5-10.1); Carbon Dioxide 31.4 meq/L (21.0-32.0); Chloride 100 meq/L (98-107); Glomerular Filtration Rate Greater Than 89 mL/min (>89); Glucose,Random 102 mg/dL (74-106); Potassium 4.3 meq/L (3.5-5.1); Sodium 137 meq/L (136-145)
[2018-01-24] MEDS: Insulin Detemir Inj 1,000 UNIT/10 ML Vial SQ SCH ×2 (11:19→22:18)
[2018-01-24] MEDS: MethylPREDNISolone Sod Succinate Inj 40 MG/ML Vial IV.PUSH SCH ×2 (11:30→22:20)
[2018-01-24] MEDS: Bismuth Subsalicylate Susp 240 ML Bottle NG/OG SCH ×2 (11:56→21:21)
[2018-01-24] MEDS: Lactobacillus Acidophilus/L. Spores Tablet PO SCH ×3 (11:56→18:10)
[2018-01-24] MEDS: Morphine Sulfate Inj 2 MG/ML Vial IV.PUSH PRN (20:50)
--- NOTE | 2018-01-24 21:42 | P.PNCC ---
Critical Care Event Note Code activated: No Narrative: I was called to patient's bedside for respiratory distress. He was tachypneic, placed on Bipap. Remained tachypneic in high 30s, but is alert and interactive with family. Coarse breath sounds. Reviewed CXR. Gave Lasix 40 mg IV . Started Precedex drip to facilitate BIPAP tolerance. Answered family's questions. Reevaluated and patient appeared much more comfortable on BIPAP. No longer hypertensive. Respiratory rate 18-24. Critical care time: less than 30 mins
--- NOTE | 2018-01-24 22:01 | XR ---
EXAM DATE: 01/24/2018 9:52 PM EDT AGE/SEX: 82 years / Male INDICATIONS: Respiratory disease CLINICAL DATA: This is the patient's subsequent encounter. Patient reports that signs and symptoms h ave been present for 1 month and indicates a pain score of Nonresponsive. MEDICAL/SURGICAL HISTORY: . Chronic obstructive pulmonary disease. Congestive heart failure. Di abetes. . Lobectomy. COMPARISON: [facility] [place] [facility] [place] 1V SING[place] AP, 01/23/2018. . FINDINGS: There is a stable chronic left effusion with calcified and noncalcified pleural thickening bilaterall y. No new airspace disease compared with January 23. CONCLUSION: Stable chronic pleural disease and basilar density compared with January 23. No pneumothorax. No new infiltrate. Electronically signed by: Bo Main MD 01/24/2018 10:00 PM EDT
[2018-01-24] MEDS: Micafungin Inj 150 MG in Sodium Chlor 0.9% Inj 100 ML IV.SIG SCH (22:17)
[2018-01-24] MEDS: Dexmedetomidine Inj 200 MCG in Sodium Chlor 0.9% Inj 48 ML IV.CONT PRN (22:22)
[2018-01-25] MEDS: Insulin NovoLIN Regular Correctional Sugar Inj SQ SCH ×6 (00:53→20:55)
[2018-01-25] MEDS: Oral Hygiene Kit OROPHARYNG SCH ×3 (00:53→17:44)
[2018-01-25] MEDS: rifAXIMin 550 MG Tablet PO SCH ×4 (03:15→22:43)
[2018-01-25] MEDS: Dexmedetomidine Inj 200 MCG in Sodium Chlor 0.9% Inj 48 ML IV.CONT PRN (06:22)
[2018-01-25] MEDS: Spironolactone 25 MG Tablet PO SCH ×2 (09:10→09:38)
[2018-01-25] MEDS: Lactobacillus Acidophilus/L. Spores Tablet PO SCH ×4 (09:10→18:04)
[2018-01-25] MEDS: Chlorhexidine 0.12% Oral Kit 15 ML UDC OROPHARYNG SCH ×2 (09:10→22:41)
[2018-01-25] MEDS: Bismuth Subsalicylate Susp 240 ML Bottle NG/OG SCH ×4 (09:11→18:06)
[2018-01-25] MEDS: Carboxymethylcellulose 0.5% Opth Drops 15 ML Bottle EACH EYE SCH ×2 (09:11→22:42)
[2018-01-25] MEDS: Insulin Detemir Inj 1,000 UNIT/10 ML Vial SQ SCH ×2 (09:11→20:54)
[2018-01-25] MEDS: MethylPREDNISolone Sod Succinate Inj 40 MG/ML Vial IV.PUSH SCH ×2 (09:11→20:53)
[2018-01-25] MEDS: Budesonide-Formoterol 160/4.5 MCG 6 GM Inhaler INH SCH ×2 (09:12→21:05)
[2018-01-25 11:23] LABS: Baso % (Auto) 0.1 % (0.0-2.0); Hematocrit 28.2 % (39.0-51.0); Hemoglobin 9.7 gm/dL (13.0-17.0); Lymph # (Auto) 0.4 th/mm3 (1.0-4.8); Lymph % (Auto) 4.1 % (9.0-44.0); Mean Corpuscular HGB Conc 34.3 % (32.0-36.0); Mean Corpuscular Hemoglobin 30.5 pg (27.0-34.0); Mean Corpuscular Volume 88.9 fL (80.0-100.0); Mean Platelet Volume 8.4 fL (7.0-11.0); Mono # (Auto) 0.3 th/mm3 (0.0-0.9); Mono % (Auto) 2.7 % (0.0-8.0); Neut # (Auto) 8.9 th/mm3 (1.8-7.7); Neut % (Auto) 93.1 % (16.0-70.0); Platelet Count 127 th/mm3 (150-450); Red Blood Count 3.17 mil/mm3 (4.50-5.90); Red Cell Distribution Width 15.3 % (11.6-17.2); White Blood Count 9.6 th/mm3 (4.0-11.0)
[2018-01-25 11:47] LABS: Anion Gap 6 meq/L (5-15); Blood Urea Nitrogen 34 mg/dL (7-18); Calcium 8.3 mg/dL (8.5-10.1); Carbon Dioxide 33.4 meq/L (21.0-32.0); Chloride 98 meq/L (98-107); Glomerular Filtration Rate Greater Than 89 mL/min (>89); Glucose,Random 188 mg/dL (74-106); Potassium 4.4 meq/L (3.5-5.1); Sodium 137 meq/L (136-145)
[2018-01-25 11:52] LABS: Troponin I 0.02 ng/mL (0.02-0.05)
--- NOTE | 2018-01-25 12:03 | P.PN ---
Subjective Interval history: Sleepy today and on BiPAP. Did well on O2 N/C yesterday. Good output. Needs a Soft diet. Physical Exam Vital signs: Vital Signs 01/24/18 14:00 01/24/18 15:00 01/24/18 16:00 Temperature Pulse Rate 91 H 115 H 91 H Respiratory Rate 18 Blood Pressure Pulse Oximetry 01/24/18 18:00 01/24/18 20:00 01/24/18 20:06 Temperature 98.3 F Pulse Rate 91 H 128 H 128 H Respiratory Rate 39 H 43 H Blood Pressure 172/75 H 161/75 H Pulse Oximetry 96 93 L 01/24/18 20:08 01/24/18 20:11 01/24/18 20:19 Temperature Pulse Rate 126 H 129 H Respiratory Rate 42 H 41 H Blood Pressure 174/78 H Pulse Oximetry 94 L 100 93 L 01/24/18 20:20 01/24/18 20:40 01/24/18 21:00 Temperature Pulse Rate 129 H 129 H 129 H Respiratory Rate 41 H 38 H 38 H Blood Pressure 179/79 H 172/76 H 178/76 H Pulse Oximetry 94 L 100 99 01/24/18 21:20 01/24/18 21:35 01/24/18 21:40 Temperature Pulse Rate 126 H 126 H Respiratory Rate 38 H 37 H Blood Pressure 150/85 H 146/67 H Pulse Oximetry 99 98 94 L 01/24/18 22:00 01/24/18 22:01 01/24/18 22:20 Temperature Pulse Rate 125 H 125 H 121 H Respiratory Rate 34 H 34 H 34 H Blood Pressure 133/62 135/65 Pulse Oximetry 95 95 97 01/24/18 22:40 01/24/18 22:42 01/24/18 23:00 Temperature Pulse Rate 119 H 119 H 117 H Respiratory Rate 32 H 32 H 33 H Blood Pressure 152/69 H 147/70 H 145/62 H Pulse Oximetry 94 L 94 L 94 L 01/24/18 23:20 01/24/18 23:40 01/24/18 23:54 Temperature Pulse Rate 113 H 111 H Respiratory Rate 32 H 34 H Blood Pressure 123/87 125/59 L Pulse Oximetry 95 97 97 01/24/18 23:55 01/25/18 00:00 01/25/18 00:20 Temperature 97.5 F L Pulse Rate 108 H 109 H 104 H Respiratory Rate 32 H 35 H 35 H Blood Pressure 115/58 L 114/56 L Pulse Oximetry 95 98 01/25/18 01:00 01/25/18 01:02 01/25/18 01:20 Temperature Pulse Rate 99 H 98 H 99 H Respiratory Rate 31 H 34 H 25 H Blood Pressure 113/56 L 113/55 L Pulse Oximetry 98 98 98 01/25/18 01:43 01/25/18 02:00 01/25/18 02:20 Temperature Pulse Rate 97 H 96 H 98 H Respiratory Rate 24 27 H 26 H Blood Pressure 118/63 130/62 121/62 Pulse Oximetry 99 99 98 01/25/18 02:40 01/25/18 03:00 01/25/18 03:04 Temperature Pulse Rate 93 H 90 90 Respiratory Rate 29 H 30 H 21 Blood Pressure 109/58 L 108/59 L Pulse Oximetry 98 98 01/25/18 03:20 01/25/18 03:28 01/25/18 03:40 Temperature Pulse Rate 89 87 Respiratory Rate 25 H 27 H Blood Pressure 102/56 L 96/54 L Pulse Oximetry 99 97 99 01/25/18 04:00 01/25/18 04:20 01/25/18 04:40 Temperature 97.5 F L Pulse Rate 85 83 81 Respiratory Rate 26 H 27 H 26 H Blood Pressure 91/52 L 93/54 L 93/51 L Pulse Oximetry 99 100 99 01/25/18 05:00 01/25/18 05:20 01/25/18 05:40 Temperature Pulse Rate 82 80 77 Respiratory Rate 28 H 23 24 Blood Pressure 101/55 L 98/52 L 96/53 L Pulse Oximetry 99 99 99 01/25/18 05:50 01/25/18 06:00 01/25/18 06:20 Temperature Pulse Rate 77 80 Respiratory Rate 23 24 Blood Pressure 95/53 L 105/58 L Pulse Oximetry 100 97 94 L 01/25/18 06:45 01/25/18 07:00 01/25/18 07:34 Temperature Pulse Rate 74 73 74 Respiratory Rate 21 25 H 24 Blood Pressure 114/53 L 102/51 L Pulse Oximetry 95 97 96 01/25/18 08:00 01/25/18 10:00 01/25/18 10:14 Temperature 96.8 F L Pulse Rate 74 74 Respiratory Rate 25 H Blood Pressure 134/65 Pulse Oximetry 92 L 96 01/25/18 11:21 Temperature Pulse Rate 77 Respiratory Rate 28 H Blood Pressure Pulse Oximetry Intake & Output 01/24/18 01/25/18 01/25/18 18:59 06:59 18:59 Intake Total Output Total 300 / 300 Balance -250 / -250 Weight 67 kg Intake: IV Precedex Inj 200 MCG In NS Inj 48 ML @ 0.2 MCG/KG/HR 3.11 mls/ hr IV.CONT TITRATE PRN Rx#: [id number] Oral 0 / 0 Tube Feeding 0 / 0 Tube Irrigant 0 / 0 Water Bolus Amount 0 / 0 Other 0 / 0 Output: Urine 0 / 0 Urine Amount (Catheter) 300 / 300 Condom 300 / 300 Other: # Voids 0 # Incontinent Voids 0 Date of Last Bowel Movement 01/24/18 01/24/18 01/24/18 # Bowel Movements 1 # Incontinent Bowel Movements 1 Narrative: General:Elderly W/M , drowsy and not in distress. On BIPAP HEENT:PERRL. Throat clear. Cardiovascular:Regular Rhythm, S1 S2 ,no murmur Respiratory : Few Basal crackles and bilateral wheezes and decreased breath sounds at left base. Abdomen: soft, nontender, positive bowel sounds. No Mass. Extremities: No edema , of lower extremities. Neuro: No Focal deficits. - Urinary Catheter Management Straight Cath placed during this visit: yes, but has since been removed by the nurse Reason for continuing: Not indwelling catheter Insertion date: 12/23/17 Insertion time: 01:00 Removal date: 12/22/17 Removal time: 01:00 Condom Cath placed during this visit: no Results - Labs CBC & Chem 7: 01/25/18 10:42 01/25/18 10:42 Laboratory Results - last 24 hr 01/24/18 01/24/18 01/24/18 14:26 19:08 22:07 WBC RBC Hgb Hct MCV MCH MCHC RDW Plt Count MPV Neut % (Auto) Lymph % (Auto) Coffey % (Auto) Eos % (Auto) Baso % (Auto) Neut # (Auto) Lymph # (Auto) Coffey # (Auto) Eos # (Auto) Baso # (Auto) WBC Differential Differential Comment Sodium Potassium Chloride Carbon Dioxide Anion Gap BUN Creatinine Estimated GFR POC Glucose 177 H 276 H 290 H Random Glucose Calcium Total Creatine Kinase Troponin I 01/25/18 01/25/18 01/25/18 00:10 06:07 08:03 WBC RBC Hgb Hct MCV MCH MCHC RDW Plt Count MPV Neut % (Auto) Lymph % (Auto) Coffey % (Auto) Eos % (Auto) Baso % (Auto) Neut # (Auto) Lymph # (Auto) Coffey # (Auto) Eos # (Auto) Baso # (Auto) WBC Differential Differential Comment Sodium Potassium Chloride Carbon Dioxide Anion Gap BUN Creatinine Estimated GFR POC Glucose 317 H 219 H 258 H Random Glucose Calcium Total Creatine Kinase Troponin I 01/25/18 01/25/18 01/25/18 10:42 10:42 10:42 WBC 9.6 RBC 3.17 L Hgb 9.7 L Hct 28.2 L MCV 88.9 MCH 30.5 MCHC 34.3 RDW 15.3 Plt Count 127 L MPV 8.4 Neut % (Auto) 93.1 H Lymph % (Auto) 4.1 L Coffey % (Auto) 2.7 Eos % (Auto) 0.0 Baso % (Auto) 0.1 Neut # (Auto) 8.9 H Lymph # (Auto) 0.4 L Coffey # (Auto) 0.3 Eos # (Auto) 0.0 Baso # (Auto) 0.0 WBC Differential . Differential Comment Auto diff final Sodium 137 Potassium 4.4 Chloride 98 Carbon Dioxide 33.4 H Anion Gap 6 BUN 34 H Creatinine 0.75 Estimated GFR Greater than 89 POC Glucose Random Glucose 188 H Calcium 8.3 L Total Creatine Kinase 19 L Troponin I 0.02 - Imaging Impressions Chest X-Ray 01/24/18 21:35 CONCLUSION: Stable chronic pleural disease and basilar density compared with January 23. No pneumothorax. No new infiltrate. Assessment and Plan - Assessment (1) Respiratory failure requiring intubation Code(s): J96.90 - Respiratory failure, unspecified, unspecified whether with hypoxia or hypercapnia Status: Acute (2) Pneumonia Code(s): J18.9 - Pneumonia, unspecified organism Status: Acute (3) CHF (congestive heart failure), NYHA class II Code(s): I50.9 - Heart failure, unspecified Status: Acute (4) CHF (congestive heart failure) Code(s): I50.9 - Heart failure, unspecified Status: Acute (5) Respiratory abnormalities Code(s): J98.9 - Respiratory disorder, unspecified Status: Acute (6) Emphysema of lung Code(s): J43.9 - Emphysema, unspecified Status: Acute (7) Borderline diabetes mellitus Code(s): R73.03 - Prediabetes Status: Acute (8) Fracture, intertrochanteric, left femur Code(s): S72.142A - Displaced intertrochanteric fracture of left femur, initial encounter for closed fracture Status: Acute (9) Nutrition, metabolism, and development symptoms Code(s): R63.8 - Other symptoms and signs concerning food and fluid intake Status: Acute - Plan RECOMMENDATIONS: 1. BIPAP 15/5 Cm FIo2 40 % for 8 hrs. 2. Bronchodilators ,DuoNeb q.6 hr. 3. D/W family here 4 .BMP CBC in am 5. Continue with Lasix 40 mg daily. 6. Cont antibiotics per ID. 7. O2 N/C 4 L when off BiPAP 8.Solumedrol 40 mg IV q12H 9.PT and OT Evaluation
--- NOTE | 2018-01-25 13:06 | P.PNCC ---
Subjective Subjective Remarks/Hospital Course: 82-year-old male with past medical history of COPD and CHF presents for an evaluation of shortness of breath and hypoxemia worsening over past few days. The nebulizer treatments helped initially however today there were not helpful. EMS reports on scene the O2 sat was in the 80s. He received high flow oxygen and nebulized albuterol in route here. His blood pressure initially in the emergency department was 200/100 however trended down to about 160/90. BiPAP was started in the emergency department with improvement in his O2 sat that has trended towards the high 90s with 100% FiO2 on BiPAP. Shortly after transfer to ICU the patient continues to to be more hypoxemic and restless requiring endotracheal intubation and mechanical ventilation. 12/20: intubated and sedated. still hypercarbic with [id number] respiratory acidosis. family unhappy that patient was intubated: they insisted last night on being a Full Code, but apparently the daughter required that she be notified of exactly what SpO2 the patient was at, and it had to reach a certain low level before she would be ok with intubation. Per overnight records , patient presented with severe respiratory distress, and family reports that EMS stated patient "wouldn't make it all the way to [facility]" due to his pulmonary instability. This morning, hypoxia is somewhat improved. remains on broad spectrum antibiotics. I explained to family that this is likely a new pneumonia causing respiratory failure. I also explained that after recent hip fracture and recent prolonged hospitalization, his baseline end-stage lung disease and NYHA Class IV symptoms are likely to worsen, and this may be worsening of his overall end-stage disease processes. Family continues to state that our facility caused his lung failure during the prior hospitalization. They are also concerned about his poor peripheral perfusion and oliguria, which concerns me also: I explained that his heart failure could not tolerate significant amount of iv fluids, and we have already given him 1500mL over the last 12 hours, but they have insisted on additional iv fluids. I explained he had severe sepsis and the mortality associated with this. Daughter continues to remind me that her father "is coming home with her and getting better" as she has stated multiple times in the past. 12/21: no improvements. remains intubated. clinically becoming volume overloaded - will be forced to start diuresis. 12/22: mental status slightly improved. still failing weaning attempts. 12/23: Afebrile. Currently on PSV trial 15/7 at 45%. Discussed with and daughter at bedside. Chest x-ray revealed ET tube at [place]. Retracted 1 cm. Tolerating tube feeds with family requested 40 cc an hour. 12/24: Afebrile. Currently CPAP trial FiO2 at 45%. Tolerating tube feeds if family requested 40 cc an hour. Receiving morphine 1-2 mg every 4 hours as needed pain. 12/25 No events overnight remains intubated off sedation. Tolerated CPAP for several hrs yesterday. Afebrile. 12/26 No events overnight. Patient tolerated CPAP for most of day yesterday. Awake and alert follows commands, on no sedation. 12/27 Patient was extubated yesterday on 4L oxygen. Awake. Afebrile. 12/28 No events overnight. Remains on 4L oxygen. Awake and alert. 12/30: RECONSULT NOTE: reconsulted as rapid response for hypoxia. per the family , patient had desaturation episode to the 60s, placed on NRB. family insisted on transfer back to ICU. when I saw patient on arrival to ICU, patient spo2 99% on NRB. pao2 on NRB was 150. patient is well-known to me with baseline spo2 82- 86% on 5L o2 by NC at home. family states he has another pneumonia. on my review of CXR and lab evidence, unclear if this is new pneumonia vs. old chronic lung disease. patient denies sob or new symptoms. 12/31: no changes. remains on simple mask at 6LPM. not in distress. family does not want to leave ICU and wants to continue ICU care for the remainder of the hospitalization. long discussion about needing to de-escalate level of care prior to hospital discharge. 01/07 Reconsult for Resp. distress. Patient was placed on BIPAP with 60% FIO2. ABG this morning showed some improvements in his resp acidosis with PH:7.34, CO2 72 from 82. CXR from 16/[address] chest today. 01/08 Patient was intubated this morning for worsening resp acidosis. CT chest yesterday showed pneumonia/aspiration. On Diprivan for sedation. Afebrile. 01/09 Patient is intubated and on low dose Diprivan drip. Afebrile. 01/10 Patient remains intubated. Awake, tolerated CPAP for most of day yesterday. Afebrile. 01/11 No events overnight. Awake and alert off sedation, tolerated CPAP all day yesterday. Afebrile. 01/12: Family concern regarding testicular swelling. I went over available laboratories. Will check hepatitis C genotype and PCR viral load today. We will also check C. difficile per family request. Patient tolerated CPAP yesterday for around 10 hours. Has been on CPAP since 8 AM this morning. FiO2 35%. 01/13: Afebrile. Remains on CPAP trial 16/08 at 35%. All x-rays pending. Long discussion with family at bedside and via telephone. Plan for bronchoscopy tomorrow if okay with 2 other daughters with pulmonology. 01/14: remains intubated, sedated. plan for bronch today with pulmonary at bedside. failing SBTs. 01/15: intubated and sedated. will attempt SBT today. discussion yesterday with family: if he passes SBT, will proceed with extubation, but high risk for decompensation and re-intubation. if he gets reintubated again, will need trach/ peg to continue forward and aggressive care. 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 01/16: Remains orally intubated on mechanical ventilation. ABG done today borderline. Resumed Lasix. GI started spironolactone to mobilize fluid. 01/17: Remains orally intubated on mechanical ventilation. Daily CPAP trials 01/18: Awake, alert, orally intubated on mechanical ventilation. Daily CPAP trials ongoing. Continues to have diarrhea. 01/19: Drowsy, easily arousable, orally intubated on mechanical ventilation. Daily CPAP trials with respiratory rate 28 tidal volumes 250s-300. 01/20: Awake, alert, orally intubated on mechanical ventilation at the time of my evaluation. Tolerating CPAP trials +5/+5. Respiratory rate 28-30, tidal volumes 250s-300. Discussed with Dr. Guerrier. Will proceed with extubation. Explained to family patient is high risk for intubation and that we will be using intermittent BiPAP if needed. 01/21: awake and alert. extubated yesterday. on 2.5L o2 by nc. somewhat tachypneic, but otherwise stable. BALs growing aspergillus. left pleural effusion persists on CT, but at this point, risk/benefit likely in favor of conservative management. 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 They continue to press for ongoing aggressive care and continue to state he will come home with them soon. 01/22: clinically worse today. back on BiPAP. fio2 still 35%, but very tired. family concerned about breathing: again I discussed the fact that he is deconditioned and I am concerned that he will fail after he tires out. I expressed my concern that this will keep happening and he will end up back on life-support. Family continues to intermittently refuse accuchecks and SQ insulin, but today have concerns that his blood sugar is higher than it has been and they asked his insulin be adjusted. I have increased his glycemic control and ask that the family allow us to administer the ordered insulin. 01/23: Patient had a good morning however becoming more confused and agitated this afternoon. We will place back on BiPAP. Requesting melatonin at night for insomnia. States he gets confused at night likely ICU delirium. 01/24: Intermittently on BiPAP overnight. Became agitated and confused but improved. Hemoglobin currently 10.4. BMP pending. No other acute issues ongoing. Subjective: 01/25: Patient became confused overnight. Placed on BiPAP and dexmedetomidine drip. Received 2 mg morphine sulfate. Lethargic this a.m. Tolerating BiPAP however. Family request echocardiogram was performed today and a consultation Dr. Shoemaker if abnormalities from persist from 11/14 echocardiogram. Objective Vital Signs / I&O: Vital Signs 01/24/18 14:00 01/24/18 15:00 01/24/18 16:00 Temperature Pulse Rate 91 H 115 H 91 H Respiratory Rate 18 Blood Pressure Pulse Oximetry 01/24/18 18:00 01/24/18 20:00 01/24/18 20:06 Temperature 98.3 F Pulse Rate 91 H 128 H 128 H Respiratory Rate 39 H 43 H Blood Pressure 172/75 H 161/75 H Pulse Oximetry 96 93 L 01/24/18 20:08 01/24/18 20:11 01/24/18 20:19 Temperature Pulse Rate 126 H 129 H Respiratory Rate 42 H 41 H Blood Pressure 174/78 H Pulse Oximetry 94 L 100 93 L 01/24/18 20:20 01/24/18 20:40 01/24/18 21:00 Temperature Pulse Rate 129 H 129 H 129 H Respiratory Rate 41 H 38 H 38 H Blood Pressure 179/79 H 172/76 H 178/76 H Pulse Oximetry 94 L 100 99 01/24/18 21:20 01/24/18 21:35 01/24/18 21:40 Temperature Pulse Rate 126 H 126 H Respiratory Rate 38 H 37 H Blood Pressure 150/85 H 146/67 H Pulse Oximetry 99 98 94 L 01/24/18 22:00 01/24/18 22:01 01/24/18 22:20 Temperature Pulse Rate 125 H 125 H 121 H Respiratory Rate 34 H 34 H 34 H Blood Pressure 133/62 135/65 Pulse Oximetry 95 95 97 01/24/18 22:40 01/24/18 22:42 01/24/18 23:00 Temperature Pulse Rate 119 H 119 H 117 H Respiratory Rate 32 H 32 H 33 H Blood Pressure 152/69 H 147/70 H 145/62 H Pulse Oximetry 94 L 94 L 94 L 01/24/18 23:20 01/24/18 23:40 01/24/18 23:54 Temperature Pulse Rate 113 H 111 H Respiratory Rate 32 H 34 H Blood Pressure 123/87 125/59 L Pulse Oximetry 95 97 97 01/24/18 23:55 01/25/18 00:00 01/25/18 00:20 Temperature 97.5 F L Pulse Rate 108 H 109 H 104 H Respiratory Rate 32 H 35 H 35 H Blood Pressure 115/58 L 114/56 L Pulse Oximetry 95 98 01/25/18 01:00 01/25/18 01:02 01/25/18 01:20 Temperature Pulse Rate 99 H 98 H 99 H Respiratory Rate 31 H 34 H 25 H Blood Pressure 113/56 L 113/55 L Pulse Oximetry 98 98 98 01/25/18 01:43 01/25/18 02:00 01/25/18 02:20 Temperature Pulse Rate 97 H 96 H 98 H Respiratory Rate 24 27 H 26 H Blood Pressure 118/63 130/62 121/62 Pulse Oximetry 99 99 98 01/25/18 02:40 01/25/18 03:00 01/25/18 03:04 Temperature Pulse Rate 93 H 90 90 Respiratory Rate 29 H 30 H 21 Blood Pressure 109/58 L 108/59 L Pulse Oximetry 98 98 01/25/18 03:20 01/25/18 03:28 01/25/18 03:40 Temperature Pulse Rate 89 87 Respiratory Rate 25 H 27 H Blood Pressure 102/56 L 96/54 L Pulse Oximetry 99 97 99 01/25/18 04:00 01/25/18 04:20 01/25/18 04:40 Temperature 97.5 F L Pulse Rate 85 83 81 Respiratory Rate 26 H 27 H 26 H Blood Pressure 91/52 L 93/54 L 93/51 L Pulse Oximetry 99 100 99 01/25/18 05:00 01/25/18 05:20 01/25/18 05:40 Temperature Pulse Rate 82 80 77 Respiratory Rate 28 H 23 24 Blood Pressure 101/55 L 98/52 L 96/53 L Pulse Oximetry 99 99 99 01/25/18 05:50 01/25/18 06:00 01/25/18 06:20 Temperature Pulse Rate 77 80 Respiratory Rate 23 24 Blood Pressure 95/53 L 105/58 L Pulse Oximetry 100 97 94 L 01/25/18 06:45 01/25/18 07:00 01/25/18 07:34 Temperature Pulse Rate 74 73 74 Respiratory Rate 21 25 H 24 Blood Pressure 114/53 L 102/51 L Pulse Oximetry 95 97 96 01/25/18 08:00 01/25/18 10:00 01/25/18 10:14 Temperature 96.8 F L Pulse Rate 74 74 Respiratory Rate 25 H Blood Pressure 134/65 Pulse Oximetry 92 L 96 01/25/18 11:21 01/25/18 12:00 01/25/18 12:54 Temperature Pulse Rate 77 78 Respiratory Rate 28 H 26 H Blood Pressure Pulse Oximetry 95 Intake & Output 01/24/18 01/25/18 01/25/18 18:59 06:59 18:59 Intake Total 50 / 50 Output Total 300 / 300 Balance -250 / -250 Weight 67 kg Intake: IV Precedex Inj 200 MCG In NS Inj 48 ML @ 0.2 MCG/KG/HR 3.11 mls/ hr IV.CONT TITRATE PRN Rx#: [id number] Oral 0 / 0 Tube Feeding 0 / 0 Tube Irrigant 0 / 0 Water Bolus Amount 0 / 0 Other 0 / 0 Output: Urine 0 / 0 Urine Amount (Catheter) 300 / 300 Condom 300 / 300 Other: # Voids 0 # Incontinent Voids 0 Date of Last Bowel Movement 01/24/18 01/24/18 01/24/18 # Bowel Movements 1 # Incontinent Bowel Movements 1 Result Diagrams: 01/25/18 10:42 01/25/18 10:42 Other Results: Microbiology 01/14/18 11:15 Bronchial Washings - Bronchial Acid Fast Bacilli Smear - Final No acid fast bacilli seen 01/14/18 11:15 Bronchial Washings - Bronchial Mycobacterial Culture - Preliminary No growth in 1 week 01/14/18 11:15 Bronchial Washings - Bronchial Fungal Smear - Final No fungal elements seen 01/14/18 11:15 Bronchial Washings - Bronchial Fungal Culture - Preliminary Mold species-ID to follow 01/14/18 11:15 Bronchial - Bronchial Gram Stain - Final 01/14/18 11:15 Bronchial - Bronchial Bronchial Culture - Final Aspergillus sp not fumigatus 01/14/18 11:15 Bronchial Brushings - Bronchial Bronchial [place] Culture - Final Aspergillus sp not fumigatus 01/14/18 00:45 Stool Stool Occult Blood (LUIS FELIPE) - Final Hemoccult negative 01/08/18 09:11 Sputum - Endotracheal Gram Stain - Final 01/08/18 09:11 Sputum - Endotracheal Sputum Culture - Final Heavy growth normal respiratory vaishnavi 01/02/18 03:40 Stool Stool Occult Blood (LUIS FELIPE) - Final Hemoccult positive 12/19/17 21:20 Blood - Peripheral Aerobic Blood Culture - Final No growth in 5 days 12/19/17 21:20 Blood - Peripheral Anaerobic Blood Culture - Final No growth in 5 days 12/19/17 21:30 Blood - Peripheral Aerobic Blood Culture - Final No growth in 5 days 12/19/17 21:30 Blood - Peripheral Anaerobic Blood Culture - Final No growth in 5 days 12/20/17 14:10 Sputum - Endotracheal Gram Stain - Final 12/20/17 14:10 Sputum - Endotracheal Sputum Culture - Final Heavy growth normal respiratory vaishnavi 12/20/17 11:50 Clean Catch Urine Urine Culture - Final No growth in 48 hours 12/20/17 11:50 Urine - Catheterized Urine Legionella Antigen - Final Presumptive negative for Legionella pneumophila serogroup 1 antigen in urine, suggesting no recent or recurrent infection. Infection due to Legionella cannot be ruled out since other serogroups and species may cause disease, antigen may not be present in urine in early infection, and the level of antigen present in the urine may be below the detection limit of the test. 12/20/17 11:50 Urine - Catheterized Urine Streptococcus pneumoniae Antigen ( M - Final Presumptive negative for streptococcus pneumoniae antigen, suggesting no current or recent infection. Infection due to Streptococcus pneumoniae cannot be ruled out since the antigen present in the sample may be below the detection limit of the test. Imaging: Chest X-Ray 12/19/17 21:26 CONCLUSION: Worsening airspace process right lower lung most likely pneumonia with completely opacified left hemithorax probably due to a pleural effusion and/or left lung consolidation/collapse. Underlying mass is difficult to exclude. Chest X-Ray 12/20/17 04:19 CONCLUSION: 1. Worsening right upper lobe consolidation. 2. Slightly improved right base consolidation. 3. Volume loss, consolidation and pleural effusion on the left slightly improved. Chest X-Ray 12/21/17 05:00 CONCLUSION: No significant interval change. Persistent left-sided pleural effusion and pulmonary parenchymal opacity along with hazy right lung opacity. Chest X-Ray 12/23/17 00:00 CONCLUSION: Endotracheal tube tip at the [place]. No other significant interval change. Persistent left pleural effusion and bilateral pulmonary parenchymal opacity. Chest X-Ray 12/24/17 06:00 CONCLUSION: No significant interval change. Left-sided pleural effusion and mild bilateral parenchymal opacity again seen. Chest X-Ray 12/25/17 06:00 CONCLUSION: No significant change. Chest X-Ray 12/29/17 12:02 CONCLUSION: 1. Interval extubation. 2. No significant change in the left pleural-based opacity calcification. Chest X-Ray 12/30/17 00:00 CONCLUSION: 1. Worsening airspace disease in the right mid to lower lung zones. 2. Persistent prominent left-sided pleural thickening and calcified pleural plaques with associated volume loss. 3. Stable right apical pleural-parenchymal scarring. Chest X-Ray 12/31/17 00:00 CONCLUSION: 1. Slightly improved right mid to lower lung zone airspace disease. 2. Persistent prominent diffuse left-sided pleural opacity/thickening with associated left lung volume loss. 3. Stable right apical pleural parenchymal scarring. Abdomen X-Ray 01/01/18 00:00 CONCLUSION: 1. No bowel obstruction, ileus or perforation. 2. Degenerative changes and scoliosis of the lumbar spine. Chest X-Ray 01/05/18 00:00 CONCLUSION: Stable chest with prominent lateral left-sided pleural opacity likely pleural effusion. Pleural-parenchymal density right lung is also stable. Chest CT 01/07/18 00:00 CONCLUSION: 1. Postsurgical features of suspected previous left-sided lobectomy with volume loss and mediastinal shift to the left. 2. Bulky left-sided pleural plaques with chronic appearing small to moderate sized loculated left pleural effusion. 3. Dense airspace consolidation in the superior segment of the right lower lobe with patchy interstitial and groundglass opacities throughout the right lower lobe. Differential considerations include pneumonia and aspiration in the appropriate clinical setting. 4. Trace right-sided pleural effusion with fluid extending into the major fissure. 5. Mild coronary artery calcifications. 6. Small amount of ascites in the visualized upper abdomen. Chest X-Ray 01/08/18 06:58 CONCLUSION: Stable chest following ablation. Moderate either pleural thickening or pleural fluid remains on the right. Moderate interstitial edema persist. Abdomen Ultrasound 01/09/18 00:00 CONCLUSION: 1. Limited examination due to obscuration by bowel gas. 2. Simple left renal cyst. 3. Moderate amount of ascites in the right upper quadrant. Chest X-Ray 01/10/18 06:00 CONCLUSION: Stable to slight increase in right basilar airspace disease. Loculated left pleural fluid and left basilar opacity are stable. Chest X-Ray 01/12/18 07:41 CONCLUSION: 1. Stable ETT and NGT. 2. Slightly improved airspace disease in the right mid to lower lung zones. 3. Persistent moderate loculated left-sided pleural effusion with associated left lung airspace disease and volume loss. Abdomen/Pelvis CT 01/13/18 00:00 CONCLUSION: 1. Patchy airspace disease right lung base and chronic loculated left pleural effusion not significantly changed since January 07. 2. Mild ascites with liver cirrhosis. 3. NG tip in stomach. Previous cholecystectomy. No bowel obstruction. 4. Multiple subacute lower right rib fractures. Venous Doppler Study 01/13/18 00:00 CONCLUSION: 1. The study is negative for lower extremity deep venous thrombosis. Chest X-Ray 01/14/18 06:00 CONCLUSION: Diffuse edema versus pneumonia. There has been no significant change when compared to the prior exam. Chest X-Ray 01/14/18 11:24 CONCLUSION: No pneumothorax as questioned. Grossly stable chest appearance. Abdomen X-Ray 01/15/18 00:00 CONCLUSION: Enteric tube placement as above. Chest X-Ray 01/17/18 10:35 CONCLUSION: No significant change. Chest X-Ray 01/20/18 00:00 CONCLUSION: Diffuse increased interstitial markings related to either underlying process such as edema or underlying interstitial disease. Suspected large left effusion. Extrapleural density seen over the right upper chest which is stable. Chest CT 01/20/18 17:52 CONCLUSION: 1. Persistent areas of increased density in the subpleural region at the right apex and in the posterior right lower lung. These are unchanged from the prior exam. These could represent areas of pneumonia. The chronicity of these densities is not known. There is some cavitary change in the lateral right lower lung. All these findings are unchanged. Neoplasm cannot be excluded. These should be followed to complete resolution. If these areas persists, but can be followed up with a PET FDG study. 2. Volume loss in the left chest with increased density in the left perihilar region. There is bronchiectasis with material within the bronchi at the left lower lung. 3. Moderate left pleural effusion with thickening of the pleura and calcification of the visceral pleura. This appearance is unchanged. 4. Suspected cirrhosis and splenomegaly seen in the upper abdomen. There is ascites seen in the upper abdomen. Chest X-Ray 01/23/18 00:00 CONCLUSION: Stable findings including right apical extrapleural density and concentric opacity about the left hemithorax. Chest X-Ray 01/24/18 21:35 CONCLUSION: Stable chronic pleural disease and basilar density compared with January 23. No pneumothorax. No new infiltrate. Objective Remarks: GENERAL: 82-year-old male lying in bed. HEENT: Normocephalic. Atraumatic. Positive pallor, no icterus. Mucous membranes are moist NECK: Trachea is midline. No JVD CHEST: bipap 35% fio2. Equal chest rise. Coarse crackles. Diminished breath sounds right lobe. CARDIOVASCULAR: Normal rate, regular rhythm. ABDOMEN: Soft, nontender, nondistended. No guarding. MUSCULOSKELETAL: Pulses 2+. significant evidence of scrotal edema. 1+ peripheral edema. No mottling NEUROLOGICAL: RASS - 0. Arousable but falls asleep. Moves all 4 extremities spontaneously.. 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 Plan to use intermittent BiPAP as needed. patient is at high risk of reintubation. Prednisone stopped and patient switched to IV methylprednisolone succinate 40 mg IV every [address] Lazcano Pulmonary is following- Dr. Lazcano CT chest: Postsurgical features of suspected previous left-sided lobectomy with volume loss and mediastinal shift to the left. Bulky left-sided pleural plaques with chronic appearing small to moderate sized loculated left pleural effusion. Dense airspace consolidation in the superior segment of the right lower lobe with patchy interstitial and groundglass opacities throughout the right lower lobe. 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 Normal left ventricular size. Wall thickness is normal. No regional wall motion abnormalities are present. Diffuse calcification of the aortic valve but no significant stenosis. There is mild to moderate tricuspid valve regurgitation. The estimated pulmonary arterial pressure is 76.9 mmHg with severe pulmonary hypertension. Previously on furosemide 40 mg by tube daily. Restarted Lasix 40 mg IV every 12 hourly on 01/16. Discontinued GI started spironolactone 25 mg on 01/16 Received furosemide overnight. Currently on 20 mg by tube daily previously 40 mg IV x1 today. As needed labetalol and Nitropaste for hypertension Per family request, 2D echocardiogram limited ordered today 01/25. If any changes from previous echocardiogram. Family requests consultation family psychology clinician. Troponin 0.02 Renal/: History of nephrolithiasis Monitor renal function, I/O's, electrolytes replacement per protocol. Stopped Lasix 40 mg IV every 12 hourly on 01/20 in view of prerenal azotemia. Spironolactone 25 mg daily started 01/16 FEN/GI: Severe acute protein calorie malnutrition Hep C IgG positive. Genotype negative. PCR viral load negative. Hypernatremia Diarrhea speech eval and advance diet per their recommendations Lansoprazole for GI prophylaxis Docusate sodium/senna 1 tablet twice daily for bowel regimen GI is following US abdomen: Limited exam due to obscuration by bowel gas.Simple left renal cyst. small ascites in the right upper quadrant. Positive HepC IgG hepatitis C genotype and PCR viral load negative Start on Xifaxan 550 twice daily for diarrhea along with bismuth 15 mL 3 times daily ID: Healthcare associated pneumonia Severe sepsis- present on admission Normocytic anemia Thrombocytopenia Aspergillus pneumonia Follicles per ID Voriconazole IV started on 01/16 per ID-changed to micafungin on 01/19 as family concerned that it was causing lethargy. BAL cultures growing Aspergillus, mold Follow up on sputum 01/08 normal resp vaishnavi Sputum culture 12/20-shea resp vaishnavi Blood cultures 12/19 no growth Urine UA with urine culture 12/20-NGTD Negative Legionella and pneumococcal urinary antigens Endocrine: Hyperglycemia of critical illness --Currently on insulin detemir 5 units BID - decrease SSI to low-dose AC/at bedtime Heme: Normocytic anemia Thrombocytopenia Monitor CBC, Hep PLT ab negative MSK:: History of left IT nailing 11/14 Vitamin D deficiency PT evaluate and treat Prophylaxis: GI Prophylaxis Lansoprazole DVT Prophylaxis -- SCDs - Enoxaparin held for anemia, thrombocytopenia and Hemoccult positive Lines: Peripheral IVs. Level 2 follow-up.
--- NOTE | 2018-01-25 16:49 | P.DIET ---
Nutritional Evaluation Type of nutrition evaluation: follow-up Nutrition consult regarding: Diet Evaluation Nutrition screening: [facility] [place] (Wound) Subjective Barriers to Nutrition: Swallowing problem Oral Diet Tolerance Assessment Indicates: Edentulous Subjective Comments: Pt does not wear dentures at home Objective - Diagnosis Sepsis, PNA, COPD Exacerbation, CHF - Objective % IBW: 116 (IBW = 118#) Body Weight Used for Calculations: Actual (62 kg) Energy Needs - Lower Range (kCal/kg): 25 Energy Needs - Upper Range (kCal/kg): 30 Lower Limit kCal/kg (kCals): 1,550 Upper Limit kCal/kg (kCals): 1,860 Lower Limit Protein Factor (Grams per Kg): 1.0 Upper Limit Protein Factor (Grams per Kg): 1.5 Lower Protein Needs (Protein): 62 Upper Protein Needs (Protein): 93 Dietitian Reviewed in Medical Record: Curent medications, Intake & Output, Labs , Medical history, Tube feeding Diet Order: 2200 ADA, pureed, honey thick Oral Diet Intake Amount: Good 75-90% Speech Therapy Recommendations: Yes (pureed, honey thick) Wound Care Note: 01/07/18 WOCN note: bilateral buttock-stage 2 pressure injury Objective Comments: PMH includes: COPD, DM, Kidney Stones, Pneumothorax reintubated on 01/07 Labs: BUN 34, POC glucose 258, Ca+ 8.3 Meds Include: Xifaxin, Pepto-Bismol, Lomotil +BM, pt w/diarrhea Assessment Assessment: TF d/rachel on 01/21, pt now on 2200 ADA, pureed, and honey thick diet per ST recs. Pt confused and on BiPAP. Discussed pt with RN. Per RN, pt not able eat independently, needs 100% feed assistance. Pt is tolerating diet, with variable PO intake. Pt drinks his Glucerna TID and Patrick BID. Wt changes noted, labs reviewed. Dietitian following. Recommendations: 1. Continue 2200 ADA, pureed, honey thickened diet per ST recs. 2. Continue 1-pkt Patrick BID to aid in wound healing, Glucerna TID 3. Monitor PO and supplement intake 4. Encourage and assist in PO intake 5. Dietitian following Dietitian to Monitor: Lab values, Glucose level, Intake & Output, Diet tolerance , Weight change, PO Intake, Wound/skin status, Medical course
--- NOTE | 2018-01-25 19:35 | P.PNADD ---
Addendum to Inpatient Note Additional information: seen around 3 PM fuull note to follow
--- NOTE | 2018-01-25 20:01 | P.PNID ---
Subjective Remarks: extubated. Tolerating NC O2 Events from last night noted Prior was on BIPAP No expectoration No fever Antibiotics: z micafungin Allergies/Adverse Reactions: Allergies No Known Allergies Allergy (Verified 12/19/17 21:39) Objective Vital Signs 01/24/18 20:00 01/24/18 20:06 01/24/18 20:08 Temperature 98.3 F Pulse Rate 128 H 128 H 126 H Respiratory Rate 39 H 43 H 42 H Blood Pressure 172/75 H 161/75 H Pulse Oximetry 96 93 L 94 L 01/24/18 20:11 01/24/18 20:19 01/24/18 20:20 Temperature Pulse Rate 129 H 129 H Respiratory Rate 41 H 41 H Blood Pressure 174/78 H 179/79 H Pulse Oximetry 100 93 L 94 L 01/24/18 20:40 01/24/18 21:00 01/24/18 21:20 Temperature Pulse Rate 129 H 129 H 126 H Respiratory Rate 38 H 38 H 38 H Blood Pressure 172/76 H 178/76 H 150/85 H Pulse Oximetry 100 99 99 01/24/18 21:35 01/24/18 21:40 01/24/18 22:00 Temperature Pulse Rate 126 H 125 H Respiratory Rate 37 H 34 H Blood Pressure 146/67 H Pulse Oximetry 98 94 L 95 01/24/18 22:01 01/24/18 22:20 01/24/18 22:40 Temperature Pulse Rate 125 H 121 H 119 H Respiratory Rate 34 H 34 H 32 H Blood Pressure 133/62 135/65 152/69 H Pulse Oximetry 95 97 94 L 01/24/18 22:42 01/24/18 23:00 01/24/18 23:20 Temperature Pulse Rate 119 H 117 H 113 H Respiratory Rate 32 H 33 H 32 H Blood Pressure 147/70 H 145/62 H 123/87 Pulse Oximetry 94 L 94 L 95 01/24/18 23:40 01/24/18 23:54 01/24/18 23:55 Temperature Pulse Rate 111 H 108 H Respiratory Rate 34 H 32 H Blood Pressure 125/59 L Pulse Oximetry 97 97 01/25/18 00:00 01/25/18 00:20 01/25/18 01:00 Temperature 97.5 F L Pulse Rate 109 H 104 H 99 H Respiratory Rate 35 H 35 H 31 H Blood Pressure 115/58 L 114/56 L Pulse Oximetry 95 98 98 01/25/18 01:02 01/25/18 01:20 01/25/18 01:43 Temperature Pulse Rate 98 H 99 H 97 H Respiratory Rate 34 H 25 H 24 Blood Pressure 113/56 L 113/55 L 118/63 Pulse Oximetry 98 98 99 01/25/18 02:00 01/25/18 02:20 01/25/18 02:40 Temperature Pulse Rate 96 H 98 H 93 H Respiratory Rate 27 H 26 H 29 H Blood Pressure 130/62 121/62 109/58 L Pulse Oximetry 99 98 98 01/25/18 03:00 01/25/18 03:04 01/25/18 03:20 Temperature Pulse Rate 90 90 89 Respiratory Rate 30 H 21 25 H Blood Pressure 108/59 L 102/56 L Pulse Oximetry 98 99 01/25/18 03:28 01/25/18 03:40 01/25/18 04:00 Temperature 97.5 F L Pulse Rate 87 85 Respiratory Rate 27 H 26 H Blood Pressure 96/54 L 91/52 L Pulse Oximetry 97 99 99 01/25/18 04:20 01/25/18 04:40 01/25/18 05:00 Temperature Pulse Rate 83 81 82 Respiratory Rate 27 H 26 H 28 H Blood Pressure 93/54 L 93/51 L 101/55 L Pulse Oximetry 100 99 99 01/25/18 05:20 01/25/18 05:40 01/25/18 05:50 Temperature Pulse Rate 80 77 Respiratory Rate 23 24 Blood Pressure 98/52 L 96/53 L Pulse Oximetry 99 99 100 01/25/18 06:00 01/25/18 06:20 01/25/18 06:45 Temperature Pulse Rate 77 80 74 Respiratory Rate 23 24 21 Blood Pressure 95/53 L 105/58 L 114/53 L Pulse Oximetry 97 94 L 95 01/25/18 07:00 01/25/18 07:34 01/25/18 08:00 Temperature 96.8 F L Pulse Rate 73 74 74 Respiratory Rate 25 H 24 25 H Blood Pressure 102/51 L 134/65 Pulse Oximetry 97 96 92 L 01/25/18 10:00 01/25/18 10:14 01/25/18 11:21 Temperature Pulse Rate 74 77 Respiratory Rate 28 H Blood Pressure Pulse Oximetry 96 01/25/18 12:00 01/25/18 12:54 01/25/18 14:00 Temperature 97.5 F L Pulse Rate 78 76 Respiratory Rate 31 H Blood Pressure 131/64 Pulse Oximetry 96 95 01/25/18 16:00 01/25/18 16:17 01/25/18 18:00 Temperature 97.7 F Pulse Rate 75 77 89 Respiratory Rate 20 21 Blood Pressure 126/58 L Pulse Oximetry 100 Intake & Output 01/25/18 01/25/18 01/26/18 06:59 18:59 06:59 Intake Total 50 50 229 / 229 Output Total 300 / 300 625 / 625 Balance -250 / -250 -396 / -396 Weight 67 kg Intake: IV Precedex Inj 200 MCG In NS Inj 48 ML @ 0.2 MCG/KG/HR 3.11 mls/ hr IV.CONT TITRATE PRN Rx#: [id number] Oral 0 / 0 200 / 200 Tube Feeding 0 / 0 Tube Irrigant 0 / 0 Water Bolus Amount 0 / 0 Other 0 / 0 Output: Urine 0 / 0 625 / 625 Urine Amount (Catheter) 300 / 300 Condom 300 / 300 Other: # Voids 0 # Incontinent Voids 0 Date of Last Bowel Movement 01/24/18 01/24/18 # Bowel Movements 1 2 # Incontinent Bowel Movements 1 01/14/18 11:15 Bronchial Washings - Bronchial Fungal Smear - Final No fungal elements seen 01/14/18 11:15 Bronchial Washings - Bronchial Fungal Culture - Preliminary Aspergillus sp not fumigatus Lab - Hematology Results 01/24/18 01/25/18 09:45 10:42 WBC 7.3 9.6 RBC 3.47 L 3.17 L Hgb 10.5 L 9.7 L Hct 31.3 L 28.2 L MCV 90.3 88.9 MCH 30.2 30.5 MCHC 33.4 34.3 RDW 15.5 15.3 Plt Count 147 L 127 L MPV 7.9 8.4 Neut % (Auto) 81.5 H 93.1 H Lymph % (Auto) 11.2 4.1 L [place] % (Auto) 7.0 2.7 Eos % (Auto) 0.2 0.0 Baso % (Auto) 0.1 0.1 Neut # (Auto) 6.0 8.9 H Lymph # (Auto) 0.8 L 0.4 L [place] # (Auto) 0.5 0.3 Eos # (Auto) 0.0 0.0 Baso # (Auto) 0.0 0.0 WBC Differential . . Differential Comment Auto diff final Auto diff final Lab - Chemistry Results 01/24/18 01/24/18 01/24/18 03:45 08:42 09:45 Sodium 137 Potassium 4.3 Chloride 100 Carbon Dioxide 31.4 Anion Gap 6 BUN 36 H Creatinine 0.73 Estimated GFR Greater than 89 POC Glucose 88 110 Random Glucose 102 Calcium 8.5 Total Creatine Kinase Troponin I 01/24/18 01/24/18 01/24/18 14:26 19:08 22:07 Sodium Potassium Chloride Carbon Dioxide Anion Gap BUN Creatinine Estimated GFR POC Glucose 177 H 276 H 290 H Random Glucose Calcium Total Creatine Kinase Troponin I 01/25/18 01/25/18 01/25/18 00:10 06:07 08:03 Sodium Potassium Chloride Carbon Dioxide Anion Gap BUN Creatinine Estimated GFR POC Glucose 317 H 219 H 258 H Random Glucose Calcium Total Creatine Kinase Troponin I 01/25/18 01/25/18 10:42 10:42 Sodium 137 Potassium 4.4 Chloride 98 Carbon Dioxide 33.4 H Anion Gap 6 BUN 34 H Creatinine 0.75 Estimated GFR Greater than 89 POC Glucose Random Glucose 188 H Calcium 8.3 L Total Creatine Kinase 19 L Troponin I 0.02 Imaging: ITS Impressions Abdomen Ultrasound 01/09/18 00:00 CONCLUSION: 1. Limited examination due to obscuration by bowel gas. 2. Simple left renal cyst. 3. Moderate amount of ascites in the right upper quadrant. Abdomen/Pelvis CT 01/13/18 00:00 CONCLUSION: 1. Patchy airspace disease right lung base and chronic loculated left pleural effusion not significantly changed since January 07. 2. Mild ascites with liver cirrhosis. 3. NG tip in stomach. Previous cholecystectomy. No bowel obstruction. 4. Multiple subacute lower right rib fractures. Venous Doppler Study 01/13/18 00:00 CONCLUSION: 1. The study is negative for lower extremity deep venous thrombosis. Abdomen X-Ray 01/15/18 00:00 CONCLUSION: Enteric tube placement as above. Chest CT 01/20/18 17:52 CONCLUSION: 1. Persistent areas of increased density in the subpleural region at the right apex and in the posterior right lower lung. These are unchanged from the prior exam. These could represent areas of pneumonia. The chronicity of these densities is not known. There is some cavitary change in the lateral right lower lung. All these findings are unchanged. Neoplasm cannot be excluded. These should be followed to complete resolution. If these areas persists, but can be followed up with a PET FDG study. 2. Volume loss in the left chest with increased density in the left perihilar region. There is bronchiectasis with material within the bronchi at the left lower lung. 3. Moderate left pleural effusion with thickening of the pleura and calcification of the visceral pleura. This appearance is unchanged. 4. Suspected cirrhosis and splenomegaly seen in the upper abdomen. There is ascites seen in the upper abdomen. Chest X-Ray 01/24/18 21:35 CONCLUSION: Stable chronic pleural disease and basilar density compared with January 23. No pneumothorax. No new infiltrate. Physical Exam: GENERAL: awake, alert communicates. NAD SKIN: Warm and dry. NO rash EYES: Pupils equal and round. No scleral icterus. No injection or drainage. ENT: No nasal bleeding or discharge. Mucous membranes pink and moist. NECK: Trachea midline. CARDIOVASCULAR: Regular rate and rhythm. RESPIRATORY: . few scattered rhonchi to auscultation. Breath sounds diminished bilaterally. GASTROINTESTINAL: Abdomen soft, mildly tender, mildly distended MUSCULOSKELETAL: Extremities without clubbing, cyanosis, or edema. No obvious deformities. 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 22 voriconazole now on micafungin PLAN: cont o micafungin for now will repeat non contrast chest CT in about [address] Sg Herman case dw family @ b/s
--- NOTE | 2018-01-25 20:23 | ECHRPT ---
Indication: Heart failure, unspecified CONCLUSIONS Focused study with limited images obtained. There is moderate tricuspid regurgitation. The estimated pulmonary arterial pressure is 66 mmHg. BP: / HR: Rhythm: MEASUREMENTS (Male / Female) Normal Values Technical Quality: DOPPLER TR Peak Velocity 374.0 cm/s TR Peak Gradient 56.0 mmHg Right Atrial Pressure 10.0 mmHg Pulmonary Artery Systolic Pressu 66.0 mmHg Right Ventricular Systolic Press 66.0 mmHg FINDINGS TRICUSPID VALVE There is moderate tricuspid regurgitation. The estimated pulmonary arterial pressure is 66 mmHg. PULMONARY VALVE Trivial pulmonary valve regurgitation. VESSELS The inferior vena cava was not well visualized. Luisito Wray MD (Electronically Signed) Final Date:25 January 2018 20:22
[2018-01-25] MEDS: Micafungin Inj 150 MG in Sodium Chlor 0.9% Inj 100 ML IV.SIG SCH (20:53)
[2018-01-26] MEDS: Oral Hygiene Kit OROPHARYNG SCH ×4 (01:16→17:47)
--- NOTE | 2018-01-26 04:47 | XR ---
EXAM DATE: 01/26/2018 4:34 AM EDT AGE/SEX: 82 years / Male INDICATIONS: Short of breath. CLINICAL DATA: This is the patient's subsequent encounter. Patient reports that signs and symptoms h ave been present for 1 month and indicates a pain score of 0/10. MEDICAL/SURGICAL HISTORY: Chronic obstructive pulmonary disease. Congestive heart failure. Di abetes. Lobectomy. COMPARISON: [facility] [place], CT CHEST W/O CONTRAST, 01/20/2018. [facility] [place], CHEST 1V SINGLE AP, 01/24/2018. . FINDINGS: Scarring, volume loss and pleural fluid and/or thickening unchanged on the left. Diffuse but basilar predominant patchy airspace opacities persist on the right. Heart size stable, upper limits of normal. CONCLUSION: No significant change. Electronically signed by: Arvin Lopez MD 01/26/2018 4:46 AM EDT
[2018-01-26] MEDS: rifAXIMin 550 MG Tablet PO SCH ×2 (08:14→22:10)
[2018-01-26] MEDS: Furosemide 20 MG Tablet PO SCH (08:14)
[2018-01-26] MEDS: Insulin NovoLIN Regular Correctional Sugar Inj SQ SCH ×5 (08:14→22:10)
[2018-01-26] MEDS: Spironolactone 25 MG Tablet PO SCH (08:14)
[2018-01-26] MEDS: Chlorhexidine 0.12% Oral Kit 15 ML UDC OROPHARYNG SCH ×2 (08:14→22:08)
[2018-01-26] MEDS: Carboxymethylcellulose 0.5% Opth Drops 15 ML Bottle EACH EYE SCH ×2 (08:15→22:09)
[2018-01-26] MEDS: Bismuth Subsalicylate Susp 240 ML Bottle NG/OG SCH ×3 (08:15→17:53)
[2018-01-26] MEDS: MethylPREDNISolone Sod Succinate Inj 40 MG/ML Vial IV.PUSH SCH (08:15)
[2018-01-26] MEDS: Budesonide-Formoterol 160/4.5 MCG 6 GM Inhaler INH SCH ×2 (08:16→22:10)
[2018-01-26] MEDS: Lactobacillus Acidophilus/L. Spores Tablet PO SCH ×3 (09:51→17:53)
[2018-01-26] MEDS: Insulin Detemir Inj 1,000 UNIT/10 ML Vial SQ SCH ×2 (09:54→22:10)
--- NOTE | 2018-01-26 12:59 | P.PN ---
Subjective Interval history: Has improved. No chest pain. Able to take his diet better. On O2 4 L. Blood sugars are high. Physical Exam Vital signs: Vital Signs 01/25/18 14:00 01/25/18 16:00 01/25/18 16:17 Temperature 97.7 F Pulse Rate 76 75 77 Respiratory Rate 20 21 Blood Pressure 126/58 L Pulse Oximetry 100 01/25/18 18:00 01/25/18 20:00 01/25/18 20:30 Temperature 98.1 F Pulse Rate 89 94 H Respiratory Rate 28 H Blood Pressure 171/78 H Pulse Oximetry 94 L 100 01/25/18 22:00 01/25/18 22:44 01/26/18 00:00 Temperature 98.2 F Pulse Rate 97 H 81 Respiratory Rate 28 H Blood Pressure 126/58 L Pulse Oximetry 100 98 01/26/18 00:43 01/26/18 02:00 01/26/18 04:00 Temperature 97.5 F L Pulse Rate 84 86 83 Respiratory Rate 25 H 29 H Blood Pressure 146/68 H Pulse Oximetry 10 L 98 01/26/18 04:04 01/26/18 04:07 01/26/18 06:00 Temperature Pulse Rate 81 74 Respiratory Rate 27 H Blood Pressure Pulse Oximetry 99 99 01/26/18 07:31 01/26/18 08:00 01/26/18 10:00 Temperature 96.3 F L Pulse Rate 76 70 79 Respiratory Rate 23 22 Blood Pressure 147/65 H Pulse Oximetry 100 98 01/26/18 11:28 01/26/18 12:00 Temperature 96.7 F L Pulse Rate 89 91 H Respiratory Rate 16 28 H Blood Pressure 148/67 H Pulse Oximetry 96 Intake & Output 01/25/18 01/26/18 01/26/18 18:59 06:59 18:59 Intake Total 229 / 229 120 / 120 Output Total 625 / 625 800 / 800 Balance -396 / -396 -680 / -680 Weight 65.8 kg Intake: IV Precedex Inj 200 MCG In NS Inj 48 ML @ 0.2 MCG/KG/HR 3.11 mls/ hr IV.CONT TITRATE PRN Rx#: [id number] Oral 200 / 200 120 / 120 Output: Urine 625 / 625 Urine Amount (Catheter) 800 / 800 Condom 800 / 800 Other: Date of Last Bowel Movement 01/24/18 01/26/18 01/26/18 # Bowel Movements 2 2 Narrative: General:Elderly W/M , alert not in distress. On O2 HEENT:PERRL. Throat clear. Cardiovascular:Regular Rhythm, S1 S2 ,no murmur Respiratory : Few Basal crackles and bilateral wheezes and decreased breath sounds at left base. Abdomen: soft, nontender, positive bowel sounds. No Mass. Extremities: No edema , of lower extremities. Neuro: No Focal deficits.Moves all. - Urinary Catheter Management Straight Cath placed during this visit: yes, but has since been removed by the nurse Reason for continuing: Not indwelling catheter Insertion date: 12/23/17 Insertion time: 01:00 Removal date: 12/22/17 Removal time: 01:00 Condom Cath placed during this visit: no Results - Labs CBC & Chem 7: 01/25/18 10:42 01/25/18 10:42 Laboratory Results - last 24 hr 01/25/18 01/26/18 01/26/18 20:26 00:52 08:03 POC Glucose 361 H 400 H 327 H 01/26/18 12:45 POC Glucose 409 H Microbiology 01/14/18 11:15 Bronchial Washings - Bronchial Fungal Smear - Final No fungal elements seen 01/14/18 11:15 Bronchial Washings - Bronchial Fungal Culture - Preliminary Aspergillus sp not fumigatus - Imaging Impressions Chest X-Ray 01/26/18 06:00 CONCLUSION: No significant change. Assessment and Plan - Assessment (1) Respiratory failure requiring intubation Code(s): J96.90 - Respiratory failure, unspecified, unspecified whether with hypoxia or hypercapnia Status: Acute (2) Pneumonia Code(s): J18.9 - Pneumonia, unspecified organism Status: Acute (3) CHF (congestive heart failure), NYHA class II Code(s): I50.9 - Heart failure, unspecified Status: Acute (4) CHF (congestive heart failure) Code(s): I50.9 - Heart failure, unspecified Status: Acute (5) Respiratory abnormalities Code(s): J98.9 - Respiratory disorder, unspecified Status: Acute (6) Emphysema of lung Code(s): J43.9 - Emphysema, unspecified Status: Acute (7) Borderline diabetes mellitus Code(s): R73.03 - Prediabetes Status: Acute (8) Fracture, intertrochanteric, left femur Code(s): S72.142A - Displaced intertrochanteric fracture of left femur, initial encounter for closed fracture Status: Acute (9) Nutrition, metabolism, and development symptoms Code(s): R63.8 - Other symptoms and signs concerning food and fluid intake Status: Acute - Plan RECOMMENDATIONS: 1. BIPAP 15/5 Cm FIo2 40 % at HS 9 hrs. 2. Bronchodilators ,DuoNeb q.6 hr. 3. D/W family here 4 .BMP in am 5. Continue with Lasix 40 mg daily. 6. Cont antibiotics per ID. 7. O2 N/C 4 L when off BiPAP 8. D/C Solumedrol 9.PT and OT Evaluation 10. Add Prednisone 10 mg PO BID
--- NOTE | 2018-01-26 16:02 | P.PNCC ---
Subjective Subjective Remarks/Hospital Course: 82-year-old male with past medical history of COPD and CHF presents for an evaluation of shortness of breath and hypoxemia worsening over past few days. The nebulizer treatments helped initially however today there were not helpful. EMS reports on scene the O2 sat was in the 80s. He received high flow oxygen and nebulized albuterol in route here. His blood pressure initially in the emergency department was 200/100 however trended down to about 160/90. BiPAP was started in the emergency department with improvement in his O2 sat that has trended towards the high 90s with 100% FiO2 on BiPAP. Shortly after transfer to ICU the patient continues to to be more hypoxemic and restless requiring endotracheal intubation and mechanical ventilation. 12/20: intubated and sedated. still hypercarbic with [id number] respiratory acidosis. family unhappy that patient was intubated: they insisted last night on being a Full Code, but apparently the daughter required that she be notified of exactly what SpO2 the patient was at, and it had to reach a certain low level before she would be ok with intubation. Per overnight records , patient presented with severe respiratory distress, and family reports that EMS stated patient "wouldn't make it all the way to [facility]" due to his pulmonary instability. This morning, hypoxia is somewhat improved. remains on broad spectrum antibiotics. I explained to family that this is likely a new pneumonia causing respiratory failure. I also explained that after recent hip fracture and recent prolonged hospitalization, his baseline end-stage lung disease and NYHA Class IV symptoms are likely to worsen, and this may be worsening of his overall end-stage disease processes. Family continues to state that our facility caused his lung failure during the prior hospitalization. They are also concerned about his poor peripheral perfusion and oliguria, which concerns me also: I explained that his heart failure could not tolerate significant amount of iv fluids, and we have already given him 1500mL over the last 12 hours, but they have insisted on additional iv fluids. I explained he had severe sepsis and the mortality associated with this. Daughter continues to remind me that her father "is coming home with her and getting better" as she has stated multiple times in the past. 12/21: no improvements. remains intubated. clinically becoming volume overloaded - will be forced to start diuresis. 12/22: mental status slightly improved. still failing weaning attempts. 12/23: Afebrile. Currently on PSV trial 15/7 at 45%. Discussed with and daughter at bedside. Chest x-ray revealed ET tube at [place]. Retracted 1 cm. Tolerating tube feeds with family requested 40 cc an hour. 12/24: Afebrile. Currently CPAP trial FiO2 at 45%. Tolerating tube feeds if family requested 40 cc an hour. Receiving morphine 1-2 mg every 4 hours as needed pain. 12/25 No events overnight remains intubated off sedation. Tolerated CPAP for several hrs yesterday. Afebrile. 12/26 No events overnight. Patient tolerated CPAP for most of day yesterday. Awake and alert follows commands, on no sedation. 12/27 Patient was extubated yesterday on 4L oxygen. Awake. Afebrile. 12/28 No events overnight. Remains on 4L oxygen. Awake and alert. 12/30: RECONSULT NOTE: reconsulted as rapid response for hypoxia. per the family , patient had desaturation episode to the 60s, placed on NRB. family insisted on transfer back to ICU. when I saw patient on arrival to ICU, patient spo2 99% on NRB. pao2 on NRB was 150. patient is well-known to me with baseline spo2 82- 86% on 5L o2 by NC at home. family states he has another pneumonia. on my review of CXR and lab evidence, unclear if this is new pneumonia vs. old chronic lung disease. patient denies sob or new symptoms. 12/31: no changes. remains on simple mask at 6LPM. not in distress. family does not want to leave ICU and wants to continue ICU care for the remainder of the hospitalization. long discussion about needing to de-escalate level of care prior to hospital discharge. 01/07 Reconsult for Resp. distress. Patient was placed on BIPAP with 60% FIO2. ABG this morning showed some improvements in his resp acidosis with PH:7.34, CO2 72 from 82. CXR from 16/[address] chest today. 01/08 Patient was intubated this morning for worsening resp acidosis. CT chest yesterday showed pneumonia/aspiration. On Diprivan for sedation. Afebrile. 01/09 Patient is intubated and on low dose Diprivan drip. Afebrile. 01/10 Patient remains intubated. Awake, tolerated CPAP for most of day yesterday. Afebrile. 01/11 No events overnight. Awake and alert off sedation, tolerated CPAP all day yesterday. Afebrile. 01/12: Family concern regarding testicular swelling. I went over available laboratories. Will check hepatitis C genotype and PCR viral load today. We will also check C. difficile per family request. Patient tolerated CPAP yesterday for around 10 hours. Has been on CPAP since 8 AM this morning. FiO2 35%. 01/13: Afebrile. Remains on CPAP trial 16/08 at 35%. All x-rays pending. Long discussion with family at bedside and via telephone. Plan for bronchoscopy tomorrow if okay with 2 other daughters with pulmonology. 01/14: remains intubated, sedated. plan for bronch today with pulmonary at bedside. failing SBTs. 01/15: intubated and sedated. will attempt SBT today. discussion yesterday with family: if he passes SBT, will proceed with extubation, but high risk for decompensation and re-intubation. if he gets reintubated again, will need trach/ peg to continue forward and aggressive care. 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 01/16: Remains orally intubated on mechanical ventilation. ABG done today borderline. Resumed Lasix. GI started spironolactone to mobilize fluid. 01/17: Remains orally intubated on mechanical ventilation. Daily CPAP trials 01/18: Awake, alert, orally intubated on mechanical ventilation. Daily CPAP trials ongoing. Continues to have diarrhea. 01/19: Drowsy, easily arousable, orally intubated on mechanical ventilation. Daily CPAP trials with respiratory rate 28 tidal volumes 250s-300. 01/20: Awake, alert, orally intubated on mechanical ventilation at the time of my evaluation. Tolerating CPAP trials +5/+5. Respiratory rate 28-30, tidal volumes 250s-300. Discussed with Dr. Guerrier. Will proceed with extubation. Explained to family patient is high risk for intubation and that we will be using intermittent BiPAP if needed. 01/21: awake and alert. extubated yesterday. on 2.5L o2 by nc. somewhat tachypneic, but otherwise stable. BALs growing aspergillus. left pleural effusion persists on CT, but at this point, risk/benefit likely in favor of conservative management. 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 They continue to press for ongoing aggressive care and continue to state he will come home with them soon. 01/22: clinically worse today. back on BiPAP. fio2 still 35%, but very tired. family concerned about breathing: again I discussed the fact that he is deconditioned and I am concerned that he will fail after he tires out. I expressed my concern that this will keep happening and he will end up back on life-support. Family continues to intermittently refuse accuchecks and SQ insulin, but today have concerns that his blood sugar is higher than it has been and they asked his insulin be adjusted. I have increased his glycemic control and ask that the family allow us to administer the ordered insulin. 01/23: Patient had a good morning however becoming more confused and agitated this afternoon. We will place back on BiPAP. Requesting melatonin at night for insomnia. States he gets confused at night likely ICU delirium. 01/24: Intermittently on BiPAP overnight. Became agitated and confused but improved. Hemoglobin currently 10.4. BMP pending. No other acute issues ongoing. Subjective: 01/25: Patient became confused overnight. Placed on BiPAP and dexmedetomidine drip. Received 2 mg morphine sulfate. Lethargic this a.m. Tolerating BiPAP however. Family request echocardiogram was performed today and a consultation Dr. Shoemaker if abnormalities from persist from 11/14 echocardiogram. 01/26: Remains on nasal cannula 2.5lit/min. OOB to chair at the time of my evaluation. Awake, alert. Objective Vital Signs / I&O: Vital Signs 01/25/18 16:00 01/25/18 16:17 01/25/18 18:00 Temperature 97.7 F Pulse Rate 75 77 89 Respiratory Rate 20 21 Blood Pressure 126/58 L Pulse Oximetry 100 01/25/18 20:00 01/25/18 20:30 01/25/18 22:00 Temperature 98.1 F Pulse Rate 94 H 97 H Respiratory Rate 28 H Blood Pressure 171/78 H Pulse Oximetry 94 L 100 01/25/18 22:44 01/26/18 00:00 01/26/18 00:43 Temperature 98.2 F Pulse Rate 81 84 Respiratory Rate 28 H 25 H Blood Pressure 126/58 L Pulse Oximetry 100 98 10 L 01/26/18 02:00 01/26/18 04:00 01/26/18 04:04 Temperature 97.5 F L Pulse Rate 86 83 81 Respiratory Rate 29 H 27 H Blood Pressure 146/68 H Pulse Oximetry 98 99 01/26/18 04:07 01/26/18 06:00 01/26/18 07:31 Temperature Pulse Rate 74 76 Respiratory Rate 23 Blood Pressure Pulse Oximetry 99 100 01/26/18 08:00 01/26/18 10:00 01/26/18 11:28 Temperature 96.3 F L Pulse Rate 70 79 89 Respiratory Rate 22 16 Blood Pressure 147/65 H Pulse Oximetry 98 01/26/18 12:00 01/26/18 14:00 01/26/18 15:53 Temperature 96.7 F L Pulse Rate 91 H 99 H 93 H Respiratory Rate 28 H 16 Blood Pressure 148/67 H Pulse Oximetry 96 Intake & Output 01/25/18 01/26/18 01/26/18 18:59 06:59 18:59 Intake Total 229 / 229 120 / 120 Output Total 625 / 625 800 / 800 Balance -396 / -396 -680 / -680 Weight 65.8 kg Intake: IV Precedex Inj 200 MCG In NS Inj 48 ML @ 0.2 MCG/KG/HR 3.11 mls/ hr IV.CONT TITRATE PRN Rx#: [id number] Oral 200 / 200 120 / 120 Output: Urine 625 / 625 Urine Amount (Catheter) 800 / 800 Condom 800 / 800 Other: Date of Last Bowel Movement 01/24/18 01/26/18 01/26/18 # Bowel Movements 2 2 Result Diagrams: 01/25/18 10:42 01/25/18 10:42 Objective Remarks: GENERAL: 82-year-old male. HEENT: Normocephalic. Atraumatic. Positive pallor, no icterus. Mucous membranes are moist NECK: Trachea is midline. No JVD CHEST: O2 nasal cannule 2.5lit/min. Equal chest rise. Coarse crackles. Diminished breath sounds left lung field. CARDIOVASCULAR: Normal rate, regular rhythm. ABDOMEN: Soft, nontender, nondistended. No guarding. MUSCULOSKELETAL: Pulses 2+. significant evidence of scrotal edema. 1+ peripheral edema. No mottling NEUROLOGICAL: RASS - 0. Awake, alert, follows commands. Moves all 4 extremities spontaneously.. Assessment and Plan - Assessment and Plan Plan: Neuro/Psych Acute metabolic encephalopathy- resolved Awake and alert Monitor neuro status Acetaminophen liquid 650 every 6 hours as needed fever Morphine sulfate 1-2 mg IV every 4 hours as needed pain Melatonin 5 mg at night as needed Removed dexmedetomidine drip and haloperidol from [facility] Respiratory: Acute hypoxic and hypercarbic respiratory failure- Intubated 01/08, extubated 01/20 End-stage COPD Status post left lower lobe pneumonectomy Congestive heart failure secondary to severe lung disease Right lower lobe healthcare associated pneumonia pulmonary hypertension right ventricular dysfunction On 2.5 L oxygen by nasal cannula at home continuously Albuterol/ipratropium aerosols every 6 hours with albuterol aerosols every 2 hours as needed dyspnea, Extubated to nasal cannula on 01/20. Plan to use intermittent BiPAP as needed. patient is at high risk of reintubation. IV methylprednisolone succinate switched to prednisone PO on 01/[address] Hesham Herman Pulmonary is following- Dr. Lazcano CT chest: Postsurgical features of suspected previous left-sided lobectomy with volume loss and mediastinal shift to the left. Bulky left-sided pleural plaques with chronic appearing small to moderate sized loculated left pleural effusion. Dense airspace consolidation in the superior segment of the right lower lobe with patchy interstitial and groundglass opacities throughout the right lower lobe. 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 Normal left ventricular size. Wall thickness is normal. No regional wall motion abnormalities are present. Diffuse calcification of the aortic valve but no significant stenosis. There is mild to moderate tricuspid valve regurgitation. The estimated pulmonary arterial pressure is 76.9 mmHg with severe pulmonary hypertension. Previously on furosemide 40 mg by tube daily. Restarted Lasix 40 mg IV every 12 hourly on 01/16. Discontinued GI started spironolactone 25 mg on 01/16 Received furosemide overnight. Currently on 20 mg by tube daily previously 40 mg IV x1 today. As needed labetalol and Nitropaste for hypertension Per family request, 2D echocardiogram limited ordered today 01/25. If any changes from previous echocardiogram. 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 Troponin 0.02 Renal/: History of nephrolithiasis edema Monitor renal function, I/O's, electrolytes replacement per protocol. Lasix has been resumed. Spironolactone 25 mg daily started 01/16 FEN/GI: Severe acute protein calorie malnutrition Hep C IgG positive. Genotype negative. PCR viral load negative. Hypernatremia Diarrhea speech eval and advance diet per their recommendations Lansoprazole for GI prophylaxis Docusate sodium/senna 1 tablet twice daily for bowel regimen GI is following US abdomen: Limited exam due to obscuration by bowel gas.Simple left renal cyst. small ascites in the right upper quadrant. Positive HepC IgG hepatitis C genotype and PCR viral load negative Start on Xifaxan 550 twice daily for diarrhea along with bismuth 15 mL 3 times daily ID: Healthcare associated pneumonia Severe sepsis- present on admission Normocytic anemia Thrombocytopenia Aspergillus pneumonia Follicles per ID Voriconazole IV started on 01/16 per ID-changed to micafungin on 01/19 as family concerned that it was causing lethargy. BAL cultures growing Aspergillus, mold Follow up on sputum 01/08 normal resp vaishnavi Sputum culture 12/20-shea resp vaishnavi Blood cultures 12/19 no growth Urine UA with urine culture 12/20-NGTD Negative Legionella and pneumococcal urinary antigens Endocrine: Hyperglycemia of critical illness --Currently on insulin detemir 5 units BID - decrease SSI to low-dose AC/at bedtime Heme: Normocytic anemia Thrombocytopenia Monitor CBC, Hep PLT ab negative MSK:: History of left IT nailing 11/14 Vitamin D deficiency PT evaluate and treat Prophylaxis: GI Prophylaxis Lansoprazole DVT Prophylaxis -- SCDs - Enoxaparin held for anemia, thrombocytopenia and Hemoccult positive Lines: Peripheral IVs. D/W family in detail. They wish to eventually get him home. I told them that he was too weak for going home and that we could try to get him out of ICU to CPCU or CIC and then re-evaluate. Also discussed that I was going to consult hospitalist service for medical management for 01/27. Consult and transfer to hospitalist service for further medical management. Critical care will be signing off, please reconsult if needed.
--- NOTE | 2018-01-26 16:59 | P.PNWCN ---
Wound Care Nurse Consult Additional information: Attempted to see patient for follow up of wound management of buttocks wounds, Patient is up in chair at this time and RN is unavailable, will attempt to see patient again on with Doctor Monroy
[2018-01-26] MEDS: predniSONE 10 MG Tablet PO SCH (22:09)
[2018-01-26] MEDS: Micafungin Inj 150 MG in Sodium Chlor 0.9% Inj 100 ML IV.SIG SCH (22:11)
[2018-01-27] MEDS: Oral Hygiene Kit OROPHARYNG SCH ×4 (03:43→18:10)
[2018-01-27] MEDS: Carboxymethylcellulose 0.5% Opth Drops 15 ML Bottle EACH EYE SCH ×2 (08:45→21:31)
[2018-01-27] MEDS: Insulin Detemir Inj 1,000 UNIT/10 ML Vial SQ SCH ×2 (08:45→21:57)
[2018-01-27] MEDS: Chlorhexidine 0.12% Oral Kit 15 ML UDC OROPHARYNG SCH ×2 (08:46→21:30)
[2018-01-27] MEDS: Insulin NovoLIN Regular Correctional Sugar Inj SQ SCH ×4 (08:46→21:58)
[2018-01-27] MEDS: Spironolactone 25 MG Tablet PO SCH (10:27)
[2018-01-27] MEDS: predniSONE 10 MG Tablet PO SCH ×2 (10:27→21:30)
[2018-01-27] MEDS: Bismuth Subsalicylate Susp 240 ML Bottle NG/OG SCH ×3 (10:28→18:10)
[2018-01-27] MEDS: Lactobacillus Acidophilus/L. Spores Tablet PO SCH ×3 (10:28→18:10)
[2018-01-27] MEDS: Furosemide 20 MG Tablet PO SCH (10:28)
[2018-01-27] MEDS: Budesonide-Formoterol 160/4.5 MCG 6 GM Inhaler INH SCH ×2 (10:29→21:31)
[2018-01-27] MEDS: rifAXIMin 550 MG Tablet PO SCH ×2 (10:29→21:30)
--- NOTE | 2018-01-27 21:02 | P.PN ---
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 Patient is resting in bed. He is on nasal cannula, 2-3 L of O2. at bedside. Afebrile. Physical Exam Vital signs: Vital Signs 01/26/18 21:00 01/26/18 21:20 01/26/18 21:40 Temperature Pulse Rate 88 89 90 Respiratory Rate 30 H 31 H 22 Blood Pressure 148/65 H 139/65 146/67 H Pulse Oximetry 99 99 100 01/26/18 22:00 01/26/18 22:20 01/26/18 22:40 Temperature Pulse Rate 91 H 95 H 98 H Respiratory Rate 22 35 H 37 H Blood Pressure 146/67 H 161/71 H 132/60 Pulse Oximetry 100 98 96 01/26/18 23:00 01/26/18 23:20 01/26/18 23:40 Temperature Pulse Rate 94 H 94 H 96 H Respiratory Rate 34 H 35 H 34 H Blood Pressure 146/68 H 141/65 H 143/67 H Pulse Oximetry 98 97 97 01/27/18 00:00 01/27/18 00:20 01/27/18 00:27 Temperature Pulse Rate 93 H 94 H 93 H Respiratory Rate 36 H 36 H 37 H Blood Pressure 149/65 H 153/70 H Pulse Oximetry 98 97 96 01/27/18 00:40 01/27/18 01:00 01/27/18 01:20 Temperature Pulse Rate 95 H 97 H 96 H Respiratory Rate 39 H 43 H 36 H Blood Pressure 143/65 H 144/65 H 159/71 H Pulse Oximetry 96 96 96 01/27/18 01:40 01/27/18 02:00 01/27/18 02:20 Temperature Pulse Rate 92 H 92 H 93 H Respiratory Rate 39 H 40 H 38 H Blood Pressure 136/65 134/61 138/62 Pulse Oximetry 96 95 95 01/27/18 02:40 01/27/18 03:00 01/27/18 03:20 Temperature Pulse Rate 91 H 90 88 Respiratory Rate 47 H 36 H 36 H Blood Pressure 143/68 H 142/65 H 164/72 H Pulse Oximetry 96 96 95 01/27/18 03:40 01/27/18 04:00 01/27/18 04:20 Temperature 97.2 F L Pulse Rate 85 82 81 Respiratory Rate 35 H 32 H 24 Blood Pressure 146/74 H 165/68 H 135/61 Pulse Oximetry 96 95 93 L 01/27/18 04:34 01/27/18 04:40 01/27/18 05:00 Temperature Pulse Rate 80 79 82 Respiratory Rate 22 21 22 Blood Pressure 147/67 H 136/62 Pulse Oximetry 98 100 97 01/27/18 05:20 01/27/18 05:28 01/27/18 05:40 Temperature Pulse Rate 89 87 Respiratory Rate 29 H 33 H Blood Pressure 158/67 H 130/60 Pulse Oximetry 96 96 96 01/27/18 06:00 01/27/18 06:20 01/27/18 08:00 Temperature 97.6 F Pulse Rate 83 77 84 Respiratory Rate 50 H 43 H 36 H Blood Pressure 149/68 H 151/67 H 167/72 H Pulse Oximetry 96 97 97 01/27/18 09:24 01/27/18 10:00 01/27/18 12:00 Temperature 97.4 F L Pulse Rate 80 94 H 100 H Respiratory Rate 22 33 H Blood Pressure 157/73 H Pulse Oximetry 97 94 L 01/27/18 14:00 01/27/18 15:00 01/27/18 16:00 Temperature 97.3 F L Pulse Rate 93 H 90 89 Respiratory Rate 18 29 H Blood Pressure 153/69 H Pulse Oximetry 100 01/27/18 18:00 Temperature Pulse Rate 99 H Respiratory Rate Blood Pressure Pulse Oximetry Intake & Output 01/27/18 01/27/18 01/28/18 06:59 18:59 06:59 Intake Total 120 / 120 720 / 720 Output Total 625 / 625 525 / 525 Balance -505 / -505 195 / 195 Weight 67.1 kg Intake: Oral 120 / 120 720 / 720 Tube Feeding 0 / 0 Tube Irrigant 0 / 0 Water Bolus Amount 0 / 0 Other 0 / 0 Output: Urine 0 / 0 525 / 525 Urine Amount (Catheter) 625 / 625 Condom 625 / 625 Other: # Voids 0 # Incontinent Voids 0 Date of Last Bowel Movement 01/27/18 01/27/18 # Bowel Movements 2 5 # Incontinent Bowel Movements 2 Narrative: GENERAL: Alert, NAD. SKIN: Warm and dry. HEAD: Normocephalic. EYES: No scleral icterus. No injection or drainage. NECK: Supple, trachea midline. No JVD or lymphadenopathy. CARDIOVASCULAR: Regular rate and rhythm without murmurs, gallops, or rubs. RESPIRATORY: Moderate air entry, diminished breath sounds on the left side. No accessory muscle use. GASTROINTESTINAL: Abdomen soft, non-tender, nondistended. MUSCULOSKELETAL: No cyanosis, or edema. BACK: Nontender without obvious deformity. No CVA tenderness. - Urinary Catheter Management Straight Cath placed during this visit: yes, but has since been removed by the nurse Reason for continuing: Not indwelling catheter Insertion date: 12/23/17 Insertion time: 01:00 Removal date: 12/22/17 Removal time: 01:00 Condom Cath placed during this visit: no Results - Labs CBC & Chem 7: 01/25/18 10:42 01/29/18 10:41 Laboratory Results - last 24 hr 01/26/18 01/27/18 01/27/18 20:55 08:42 13:01 POC Glucose 430 H 282 H 256 H 01/27/18 17:52 POC Glucose 249 H - Imaging Chest X-Ray 12/19/17 21:26 CONCLUSION: Worsening airspace process right lower lung most likely pneumonia with completely opacified left hemithorax probably due to a pleural effusion and/or left lung consolidation/collapse. Underlying mass is difficult to exclude. Chest X-Ray 12/20/17 04:19 CONCLUSION: 1. Worsening right upper lobe consolidation. 2. Slightly improved right base consolidation. 3. Volume loss, consolidation and pleural effusion on the left slightly improved. Chest X-Ray 12/21/17 05:00 CONCLUSION: No significant interval change. Persistent left-sided pleural effusion and pulmonary parenchymal opacity along with hazy right lung opacity. Chest X-Ray 12/23/17 00:00 CONCLUSION: Endotracheal tube tip at the [place]. No other significant interval change. Persistent left pleural effusion and bilateral pulmonary parenchymal opacity. Chest X-Ray 12/24/17 06:00 CONCLUSION: No significant interval change. Left-sided pleural effusion and mild bilateral parenchymal opacity again seen. Chest X-Ray 12/25/17 06:00 CONCLUSION: No significant change. Chest X-Ray 12/29/17 12:02 CONCLUSION: 1. Interval extubation. 2. No significant change in the left pleural-based opacity calcification. Chest X-Ray 12/30/17 00:00 CONCLUSION: 1. Worsening airspace disease in the right mid to lower lung zones. 2. Persistent prominent left-sided pleural thickening and calcified pleural plaques with associated volume loss. 3. Stable right apical pleural-parenchymal scarring. Chest X-Ray 12/31/17 00:00 CONCLUSION: 1. Slightly improved right mid to lower lung zone airspace disease. 2. Persistent prominent diffuse left-sided pleural opacity/thickening with associated left lung volume loss. 3. Stable right apical pleural parenchymal scarring. Abdomen X-Ray 01/01/18 00:00 CONCLUSION: 1. No bowel obstruction, ileus or perforation. 2. Degenerative changes and scoliosis of the lumbar spine. Chest X-Ray 01/05/18 00:00 CONCLUSION: Stable chest with prominent lateral left-sided pleural opacity likely pleural effusion. Pleural-parenchymal density right lung is also stable. Chest CT 01/07/18 00:00 CONCLUSION: 1. Postsurgical features of suspected previous left-sided lobectomy with volume loss and mediastinal shift to the left. 2. Bulky left-sided pleural plaques with chronic appearing small to moderate sized loculated left pleural effusion. 3. Dense airspace consolidation in the superior segment of the right lower lobe with patchy interstitial and groundglass opacities throughout the right lower lobe. Differential considerations include pneumonia and aspiration in the appropriate clinical setting. 4. Trace right-sided pleural effusion with fluid extending into the major fissure. 5. Mild coronary artery calcifications. 6. Small amount of ascites in the visualized upper abdomen. Chest X-Ray 01/08/18 06:58 CONCLUSION: Stable chest following ablation. Moderate either pleural thickening or pleural fluid remains on the right. Moderate interstitial edema persist. Abdomen Ultrasound 01/09/18 00:00 CONCLUSION: 1. Limited examination due to obscuration by bowel gas. 2. Simple left renal cyst. 3. Moderate amount of ascites in the right upper quadrant. Chest X-Ray 01/10/18 06:00 CONCLUSION: Stable to slight increase in right basilar airspace disease. Loculated left pleural fluid and left basilar opacity are stable. Chest X-Ray 01/12/18 07:41 CONCLUSION: 1. Stable ETT and NGT. 2. Slightly improved airspace disease in the right mid to lower lung zones. 3. Persistent moderate loculated left-sided pleural effusion with associated left lung airspace disease and volume loss. Abdomen/Pelvis CT 01/13/18 00:00 CONCLUSION: 1. Patchy airspace disease right lung base and chronic loculated left pleural effusion not significantly changed since January 07. 2. Mild ascites with liver cirrhosis. 3. NG tip in stomach. Previous cholecystectomy. No bowel obstruction. 4. Multiple subacute lower right rib fractures. Venous Doppler Study 01/13/18 00:00 CONCLUSION: 1. The study is negative for lower extremity deep venous thrombosis. Chest X-Ray 01/14/18 06:00 CONCLUSION: Diffuse edema versus pneumonia. There has been no significant change when compared to the prior exam. Chest X-Ray 01/14/18 11:24 CONCLUSION: No pneumothorax as questioned. Grossly stable chest appearance. Abdomen X-Ray 01/15/18 00:00 CONCLUSION: Enteric tube placement as above. Chest X-Ray 01/17/18 10:35 CONCLUSION: No significant change. Chest X-Ray 01/20/18 00:00 CONCLUSION: Diffuse increased interstitial markings related to either underlying process such as edema or underlying interstitial disease. Suspected large left effusion. Extrapleural density seen over the right upper chest which is stable. Chest CT 01/20/18 17:52 CONCLUSION: 1. Persistent areas of increased density in the subpleural region at the right apex and in the posterior right lower lung. These are unchanged from the prior exam. These could represent areas of pneumonia. The chronicity of these densities is not known. There is some cavitary change in the lateral right lower lung. All these findings are unchanged. Neoplasm cannot be excluded. These should be followed to complete resolution. If these areas persists, but can be followed up with a PET FDG study. 2. Volume loss in the left chest with increased density in the left perihilar region. There is bronchiectasis with material within the bronchi at the left lower lung. 3. Moderate left pleural effusion with thickening of the pleura and calcification of the visceral pleura. This appearance is unchanged. 4. Suspected cirrhosis and splenomegaly seen in the upper abdomen. There is ascites seen in the upper abdomen. Chest X-Ray 01/23/18 00:00 CONCLUSION: Stable findings including right apical extrapleural density and concentric opacity about the left hemithorax. Chest X-Ray 01/24/18 21:35 CONCLUSION: Stable chronic pleural disease and basilar density compared with January 23. No pneumothorax. No new infiltrate. Chest X-Ray 01/26/18 06:00 CONCLUSION: No significant change. Chest X-Ray 01/29/18 00:00 CONCLUSION: Extensive pleural and parenchymal changes as above. Study is compared back to a long series of exams dating to 01/14/2018. Since that exam the appearance of the parenchyma has improved. The patient has been extubated in the interim. - Procedures Intubation. Assessment and Plan - Plan Mr. Davenport is a pleasant 82-year-old male with a history of COPD, CHF who presented to the emergency department due to hypoxia and shortness of breath on 12/19/2017. EMS found patient with O2 saturation around 80s. He was also found to have significantly elevated blood pressure in the 200 range systolic. He was started on BiPAP. Shortly after transfer to the ICU, due to restlessness as well as hypoxemia, patient was intubated and put on mechanical ventilation. Patient was extubated on 12/26/2017. Critical care was reconsulted on 12/30/2017 2 days after patient care was transferred to hospitalist service. Patient was again intubated on 01/08/2018 and extubated on 01/20/2018. He required regular BiPAP treatment. He also developed ICU delirium which later improved. For details ICU course, please see progress note from critical care attending on 01/26/2018. Acute metabolic encephalopathy -resolved. -Continue acetaminophen 650 mg p.o. every 6 hours. -Morphine 2 mg every 4 hours as needed. Melatonin for insomnia. 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 Artery pressure in the 60s. Suspected Pulmonary aspergillosis -Patient required BiPAP during the night for several hours. -Currently on nasal cannula 3-4 L -Appreciate infectious disease input. Patient is currently on micafungin. -Continue prednisone 10 mg twice daily, DuoNeb PRN and scheduled. Diastolic heart failure -EF 6065%. Will continue Lasix. May consider switching to Torsemide. Diabetes mellitus -Currently on Levemir and Sliding scale insulin. Full code. SCDs. DVT prophylaxis is not started due to stool occult positive. Discussed with Dr. Richards (Critical care).
[2018-01-27] MEDS: Micafungin Inj 150 MG in Sodium Chlor 0.9% Inj 100 ML IV.SIG SCH (21:30)
[2018-01-27] MEDS: RESP: Acetylcysteine 10% 4 ML Neb NEB SCH (22:30)
[2018-01-28] MEDS: Oral Hygiene Kit OROPHARYNG SCH ×4 (00:12→16:36)
[2018-01-28] MEDS: RESP: Acetylcysteine 10% 4 ML Neb NEB SCH ×4 (04:23→20:20)
[2018-01-28] MEDS: Chlorhexidine 0.12% Oral Kit 15 ML UDC OROPHARYNG SCH ×2 (07:50→21:14)
[2018-01-28] MEDS: Budesonide-Formoterol 160/4.5 MCG 6 GM Inhaler INH SCH ×2 (08:19→21:15)
[2018-01-28] MEDS: Lactobacillus Acidophilus/L. Spores Tablet PO SCH ×3 (08:20→17:28)
[2018-01-28] MEDS: predniSONE 10 MG Tablet PO SCH ×2 (08:20→21:13)
[2018-01-28] MEDS: rifAXIMin 550 MG Tablet PO SCH ×2 (08:20→21:13)
[2018-01-28] MEDS: Spironolactone 25 MG Tablet PO SCH (08:20)
[2018-01-28] MEDS: Furosemide 20 MG Tablet PO SCH (08:20)
[2018-01-28] MEDS: Carboxymethylcellulose 0.5% Opth Drops 15 ML Bottle EACH EYE SCH ×2 (08:21→21:14)
[2018-01-28] MEDS: Insulin NovoLIN Regular Correctional Sugar Inj SQ SCH ×4 (08:22→21:14)
[2018-01-28] MEDS: Insulin Detemir Inj 1,000 UNIT/10 ML Vial SQ SCH ×2 (08:22→21:14)
[2018-01-28] MEDS: Bismuth Subsalicylate Susp 240 ML Bottle NG/OG SCH ×3 (08:27→17:28)
--- NOTE | 2018-01-28 12:05 | P.PNWOU ---
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 Floor nurses Megan Carlisle and Racheal Andrew RN were present to assist. Patient's and daughter were present in the room very combative and voiced that they were displeased with his woundcare and per his his wound pains are not under control. She voices that she only wants lidocaine on his wounds and when asked if he had other pain meds on board she voiced that he has morphine and she does not want him on that as she does not want him drugged up. Palliative is on board. Of note patient had a donut placed by the family under his buttock in the specialized bed and he was lying on his buttock. His complained that yesterday she had to wait for 3.5 hours for his topical lidocaine. There was apparently another family member on the phone who voiced that whatever was being done was not working and recommendations that I made were not helping. Mother and daughter present in the room reiterated this. My recommendations are as follows: Patient has frequent stools - rectal tube recommended , however both and daughter refuse this. Explained to both that frequent stooling is is a barrier to wound healing as he will have to be cleaned frequently and this will further irritate his wound. Second recommendation was that patient be turned q2 hours as these are now pressure injuries. Attempted to explain the pathophysiology of pressure injuries but patient's continued to shoot down any recommendations. I reiterated that keeping patient off the wounds were the best way to treat these wounds. He is already on an Airapy bed( low air loss bed) and daughter wanted to know if he can get another bed. Patient's and her daughter both voiced that the current treatment was not working and that I was of no help. Patient had originally been on calazyme with cavilon to help with encrusting and protecting the wound. This treatment was changed to Ritters cream on 01/07/18. Wound measurement last week was: Left buttock 4cmx4.2cmx<0.1cm, this week 3.8cmx2.5cmx <01.cm. Right buttock ulcers last week were (inferior )-0.6cmx0.6cm x<0.1cm( same dimensions this week) and right buttock superior wounds were 1cmx2.5cm x< 0.1cm last week and this week 0.5cmx2.0cmx,0.1cm. Wounds show improvement. At this time current treatment is to continue. After wound is measured and assessed next week, then other alternatives may be considered by the wound care team. Unfortunately one other barrier to wound healing is the lack of trust and cooperation of the family. They have been instituting their own wound care i.e. donut placement on the therapeutic bed, see wound care nurse notes. Of note patient's has been taking pictures of the wound. Physical Exam Vital signs: Vital Signs 01/27/18 12:00 01/27/18 14:00 01/27/18 15:00 Temperature 97.4 F L Pulse Rate 100 H 93 H 90 Respiratory Rate 33 H 18 Blood Pressure 157/73 H Pulse Oximetry 94 L 01/27/18 16:00 01/27/18 18:00 01/27/18 20:00 Temperature 97.3 F L 98.5 F Pulse Rate 89 99 H 92 H Respiratory Rate 29 H 33 H Blood Pressure 153/69 H 132/62 Pulse Oximetry 100 96 01/27/18 21:02 01/27/18 22:00 01/27/18 22:32 Temperature Pulse Rate 93 H 94 H 94 H Respiratory Rate 36 H 34 H Blood Pressure Pulse Oximetry 100 01/28/18 00:00 01/28/18 00:45 01/28/18 02:00 Temperature 98.3 F Pulse Rate 92 H 94 H Respiratory Rate 25 H Blood Pressure 137/63 Pulse Oximetry 98 95 01/28/18 04:00 01/28/18 04:24 01/28/18 04:30 Temperature Pulse Rate 89 82 83 Respiratory Rate 35 H 28 H 29 H Blood Pressure 149/67 H 134/61 Pulse Oximetry 94 L 100 01/28/18 06:00 01/28/18 08:00 01/28/18 10:00 Temperature 97.4 F L Pulse Rate 82 86 83 Respiratory Rate 35 H Blood Pressure 146/68 H Pulse Oximetry 93 L Intake & Output 01/27/18 01/28/18 01/28/18 18:59 06:59 18:59 Intake Total 720 / 720 100 / 100 Output Total 525 / 525 Balance 195 / 195 100 / 100 Weight 65.7 kg Intake: Oral 720 / 720 100 / 100 Output: Urine 525 / 525 Other: Date of Last Bowel Movement 01/27/18 01/28/18 01/27/18 # Bowel Movements 5 5 - Urinary Catheter Management Straight Cath placed during this visit: yes, but has since been removed by the nurse Reason for continuing: Not indwelling catheter Insertion date: 12/23/17 Insertion time: 01:00 Removal date: 12/22/17 Removal time: 01:00 Condom Cath placed during this visit: no Results - Labs CBC & Chem 7: 01/25/18 10:42 01/25/18 10:42 Laboratory Results - last 24 hr 01/27/18 01/27/18 01/27/18 13:01 17:52 21:29 POC Glucose 256 H 249 H 227 H 01/28/18 08:14 POC Glucose 198 H Wound/Pressure Injury - Additional Information Patient was positioned to his right side for assessment with assistance of family members at bedside. Two wounds noted to right buttock, largest now measuring 2cm x 2.3cm x <0.2cm of pink moist tissue with no active drainage and no odor. Periwound is noted with dry flaking previously denuded skin. Smaller wound to right buttock now measures 1cm x 1.8cm x <0.1cm of dull red tissue with no active drainage and no odor. All wounds have jagged peeling wound margins indicating a mixed etiology of moisture/friction. Left buttock wound is largest of all wounds visualized and oval in shape previously staged as a stage 2 pressure injury. Wound is now measuring 4cm x 3.5cm x <0.1cm of moist pink tissue now with friable moist maroon/black discoloration within the wound bed measuring ~1cm x 0.4cm x 0cm that appears to be from previous bleeding or a new DTI. Wound margins are sharp and well defined. Periwound is dry and flaking from previously denuded skin. There is no active drainage and no odor. All wounds were encrusted prior to applying Calazime skin protectant paste. Patient was repositioned to his right side and sat up slightly in bed. Patient family was educated on wound healing criteria including but not limited to oxygen WNL, pressure relief with manual repositioning Q2H from left to right sides only, nutritional supplements, and use of disposable underpads for moisture wicking to keep skin dry. Patient may be allowed to get up to chair with frequent positioning Q1H while in chair. Airapy low airloss mattress ordered through environmental. All persons present verbalized understanding of teaching. Please [employer] teacher for worsening wounds/failure of treatment.
--- NOTE | 2018-01-28 12:24 | P.PNWCN ---
Wound Care Nurse Consult Description: Patient seen today for follow up for stage 3 pressure injuries to L buttock and R buttock Communicated with: RN Racheal Brooks [facility] [place], patient's family, Karen [facility] [place] 5 shaniko Recommendation: 1. Reposition patient from left to right sides Q2H 2.Use disposable moisture wicking underpad with air mattress. Please no cotton pull pads. 3. Continue Ritter's cream, will reassess wound next week for treatment change. 4. limit time spent on back for P.T. and meals 5. DO NOT use donut under patient Wound/Pressure Injury - Wound Left Buttocks Wound Staging: Stage III Wound Type: Pressure Injury Is This a Chronic Wound: No Requested from Provider a Wound Care Consult: Yes Length (cm): 3.8 (cm) Width (cm): 2.5 (cm) Depth (cm): 0.1 (~0.1cm) Wound Bed Appearance: Cale, Yellow Wound Bed Appearance: Wound bed noted with ~40% pink tissue and ~60% yellow tissue Surrounding Tissue Appearance: Cale Surrounding Tissue Temperature: Cool Drainage Description: Serosanguinous Drainage Amount: Scant Drainage Odor: No Odor Dressing Status: Open to Air Cleansing Solution: Saline Topical: Ritter's cream (slivadene mixed with lidocaine Wound Margin Description: Well defined and open Right Buttocks Wound Staging: Stage III Wound Type: Pressure Injury Length (cm): 0.6 (cm) Width (cm): 0.6 (cm) Depth (cm): 0.1 Wound Bed Appearance: Cale Wound Bed Appearance: ~60% pink and ~40% yellow Surrounding Tissue Appearance: Erythema Surrounding Tissue Temperature: Cool Drainage Amount: None Drainage Odor: No Odor Dressing Status: Open to Air Cleansing Solution: Saline Topical: Ritter's cream (Silvadene and Lidocaine) Wound Margin Description: Wound margins are even and well defined Right Upper Buttocks Wound Type: Traumatic Wound (moisture related wound) Is This a Chronic Wound: No Requested from Provider a Wound Care Consult: Yes Length (cm): 0.5 (cm) Width (cm): 2.5 (cm) Depth (cm): 0.1 (cm) Wound Bed Appearance: Cale, Yellow Wound Bed Appearance: Wound bed presents with ~40% yellow tissue and ~60% pink tissue Surrounding Tissue Appearance: Erythema, Cale Surrounding Tissue Temperature: Cool Drainage Amount: None Drainage Odor: No Odor Dressing Status: Open to Air Cleansing Solution: Saline Topical: Ritter's cream (silvadine cream and lidocaine) Wound Margin Description: uneven jagged,but well defined - Additional Information Patient seen for reassessment of wounds to L and R buttock areas with Doctor Monroy.Patient is laying positioned on bottom with pillows under each side of his back on low airloss airapy bed. Patient was positioned toward the left side to reveal doughnut foam device encased in pillow case under patient. Removed Doughnut device. Patient noted with medium sized amount of brown loose paste like stool. Removed stool with remedy barrier wipes. Open wounds were cleansed with normal saline and patted dry. Wound measurements and descriptions are noted above. Doctor Monroy counseled patient's family regarding wound, current patient health status, and current treatment recommendations. Doctor was counseling family, when another family was on the phone with complaints that wound was not getting better and treatment was not appropriate, and they wanted other treatment. Doctor Monroy suggested rectal tube (Dignishield) for fecal management, so that stool may not infiltrate dressings placed for treatment. Patient's family refuses this. Due to stool frequency and consistency, Doctor and wound care nurse recommend leaving wounds open to air with Ritter's cream and to wound bed and applying Cavilon spray to periwound for moisture management. Family was educated regarding the placement of doughnut under patient. Patient' s family became combative with Doctor disagreeing with assessment states, "wounds are getting worse", although, per documentation of last wound measurements,overall wounds have decreased in size.Reinforced education with family on keeping patient turned from L side to R side per current orders. Patient may be positioned to back for meals and P.T. only.
--- NOTE | 2018-01-28 15:23 | P.PN ---
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 Patient compensated and became hypoxic again last night. He required BiPAP. At the time of this interview in the morning, patient was placed on nasal cannula 3 L and currently oxygenating well. Patient is in no distress. He reports no acute concerns. Remains afebrile. Family members at bedside. Physical Exam Vital signs: Vital Signs 01/27/18 16:00 01/27/18 18:00 01/27/18 20:00 Temperature 97.3 F L 98.5 F Pulse Rate 89 99 H 92 H Respiratory Rate 29 H 33 H Blood Pressure 153/69 H 132/62 Pulse Oximetry 100 96 01/27/18 21:02 01/27/18 22:00 01/27/18 22:32 Temperature Pulse Rate 93 H 94 H 94 H Respiratory Rate 36 H 34 H Blood Pressure Pulse Oximetry 100 01/28/18 00:00 01/28/18 00:45 01/28/18 02:00 Temperature 98.3 F Pulse Rate 92 H 94 H Respiratory Rate 25 H Blood Pressure 137/63 Pulse Oximetry 98 95 01/28/18 04:00 01/28/18 04:24 01/28/18 04:30 Temperature Pulse Rate 89 82 83 Respiratory Rate 35 H 28 H 29 H Blood Pressure 149/67 H 134/61 Pulse Oximetry 94 L 100 01/28/18 06:00 01/28/18 08:00 01/28/18 10:00 Temperature 97.4 F L Pulse Rate 82 86 83 Respiratory Rate 35 H Blood Pressure 146/68 H Pulse Oximetry 93 L 01/28/18 12:00 01/28/18 13:47 01/28/18 14:00 Temperature 97.5 F L Pulse Rate 76 85 87 Respiratory Rate 22 26 H Blood Pressure 149/66 H Pulse Oximetry 100 100 Intake & Output 01/27/18 01/28/18 01/28/18 18:59 06:59 18:59 Intake Total 720 / 720 100 / 100 Output Total 525 / 525 Balance 195 / 195 100 / 100 Weight 65.7 kg Intake: Oral 720 / 720 100 / 100 Output: Urine 525 / 525 Other: Date of Last Bowel Movement 01/27/18 01/28/18 01/27/18 # Bowel Movements 5 5 Narrative: GENERAL: Alert, NAD. Currently on nasal cannula 3 L. SKIN: Warm and dry. HEAD: Normocephalic. EYES: No scleral icterus. No injection or drainage. NECK: Supple, trachea midline. No JVD or lymphadenopathy. CARDIOVASCULAR: Regular rate and rhythm without murmurs, gallops, or rubs. RESPIRATORY: Moderate air entry, diminished breath sounds on the left side. No accessory muscle use. GASTROINTESTINAL: Abdomen soft, non-tender, nondistended. MUSCULOSKELETAL: No cyanosis, or edema. BACK: Nontender without obvious deformity. No CVA tenderness. - Urinary Catheter Management Straight Cath placed during this visit: yes, but has since been removed by the nurse Reason for continuing: Not indwelling catheter Insertion date: 12/23/17 Insertion time: 01:00 Removal date: 12/22/17 Removal time: 01:00 Condom Cath placed during this visit: no Results - Labs CBC & Chem 7: 01/25/18 10:42 01/29/18 10:41 Laboratory Results - last 24 hr 01/27/18 01/27/18 01/28/18 17:52 21:29 08:14 POC Glucose 249 H 227 H 198 H 01/28/18 12:53 POC Glucose 232 H Microbiology 01/14/18 11:15 Bronchial Washings - Bronchial Acid Fast Bacilli Smear - Final No acid fast bacilli seen 01/14/18 11:15 Bronchial Washings - Bronchial Mycobacterial Culture - Preliminary No growth in 2 weeks - Imaging Chest X-Ray 12/19/17 21:26 CONCLUSION: Worsening airspace process right lower lung most likely pneumonia with completely opacified left hemithorax probably due to a pleural effusion and/or left lung consolidation/collapse. Underlying mass is difficult to exclude. Chest X-Ray 12/20/17 04:19 CONCLUSION: 1. Worsening right upper lobe consolidation. 2. Slightly improved right base consolidation. 3. Volume loss, consolidation and pleural effusion on the left slightly improved. Chest X-Ray 12/21/17 05:00 CONCLUSION: No significant interval change. Persistent left-sided pleural effusion and pulmonary parenchymal opacity along with hazy right lung opacity. Chest X-Ray 12/23/17 00:00 CONCLUSION: Endotracheal tube tip at the [place]. No other significant interval change. Persistent left pleural effusion and bilateral pulmonary parenchymal opacity. Chest X-Ray 12/24/17 06:00 CONCLUSION: No significant interval change. Left-sided pleural effusion and mild bilateral parenchymal opacity again seen. Chest X-Ray 12/25/17 06:00 CONCLUSION: No significant change. Chest X-Ray 12/29/17 12:02 CONCLUSION: 1. Interval extubation. 2. No significant change in the left pleural-based opacity calcification. Chest X-Ray 12/30/17 00:00 CONCLUSION: 1. Worsening airspace disease in the right mid to lower lung zones. 2. Persistent prominent left-sided pleural thickening and calcified pleural plaques with associated volume loss. 3. Stable right apical pleural-parenchymal scarring. Chest X-Ray 12/31/17 00:00 CONCLUSION: 1. Slightly improved right mid to lower lung zone airspace disease. 2. Persistent prominent diffuse left-sided pleural opacity/thickening with associated left lung volume loss. 3. Stable right apical pleural parenchymal scarring. Abdomen X-Ray 01/01/18 00:00 CONCLUSION: 1. No bowel obstruction, ileus or perforation. 2. Degenerative changes and scoliosis of the lumbar spine. Chest X-Ray 01/05/18 00:00 CONCLUSION: Stable chest with prominent lateral left-sided pleural opacity likely pleural effusion. Pleural-parenchymal density right lung is also stable. Chest CT 01/07/18 00:00 CONCLUSION: 1. Postsurgical features of suspected previous left-sided lobectomy with volume loss and mediastinal shift to the left. 2. Bulky left-sided pleural plaques with chronic appearing small to moderate sized loculated left pleural effusion. 3. Dense airspace consolidation in the superior segment of the right lower lobe with patchy interstitial and groundglass opacities throughout the right lower lobe. Differential considerations include pneumonia and aspiration in the appropriate clinical setting. 4. Trace right-sided pleural effusion with fluid extending into the major fissure. 5. Mild coronary artery calcifications. 6. Small amount of ascites in the visualized upper abdomen. Chest X-Ray 01/08/18 06:58 CONCLUSION: Stable chest following ablation. Moderate either pleural thickening or pleural fluid remains on the right. Moderate interstitial edema persist. Abdomen Ultrasound 01/09/18 00:00 CONCLUSION: 1. Limited examination due to obscuration by bowel gas. 2. Simple left renal cyst. 3. Moderate amount of ascites in the right upper quadrant. Chest X-Ray 01/10/18 06:00 CONCLUSION: Stable to slight increase in right basilar airspace disease. Loculated left pleural fluid and left basilar opacity are stable. Chest X-Ray 01/12/18 07:41 CONCLUSION: 1. Stable ETT and NGT. 2. Slightly improved airspace disease in the right mid to lower lung zones. 3. Persistent moderate loculated left-sided pleural effusion with associated left lung airspace disease and volume loss. Abdomen/Pelvis CT 01/13/18 00:00 CONCLUSION: 1. Patchy airspace disease right lung base and chronic loculated left pleural effusion not significantly changed since January 07. 2. Mild ascites with liver cirrhosis. 3. NG tip in stomach. Previous cholecystectomy. No bowel obstruction. 4. Multiple subacute lower right rib fractures. Venous Doppler Study 01/13/18 00:00 CONCLUSION: 1. The study is negative for lower extremity deep venous thrombosis. Chest X-Ray 01/14/18 06:00 CONCLUSION: Diffuse edema versus pneumonia. There has been no significant change when compared to the prior exam. Chest X-Ray 01/14/18 11:24 CONCLUSION: No pneumothorax as questioned. Grossly stable chest appearance. Abdomen X-Ray 01/15/18 00:00 CONCLUSION: Enteric tube placement as above. Chest X-Ray 01/17/18 10:35 CONCLUSION: No significant change. Chest X-Ray 01/20/18 00:00 CONCLUSION: Diffuse increased interstitial markings related to either underlying process such as edema or underlying interstitial disease. Suspected large left effusion. Extrapleural density seen over the right upper chest which is stable. Chest CT 01/20/18 17:52 CONCLUSION: 1. Persistent areas of increased density in the subpleural region at the right apex and in the posterior right lower lung. These are unchanged from the prior exam. These could represent areas of pneumonia. The chronicity of these densities is not known. There is some cavitary change in the lateral right lower lung. All these findings are unchanged. Neoplasm cannot be excluded. These should be followed to complete resolution. If these areas persists, but can be followed up with a PET FDG study. 2. Volume loss in the left chest with increased density in the left perihilar region. There is bronchiectasis with material within the bronchi at the left lower lung. 3. Moderate left pleural effusion with thickening of the pleura and calcification of the visceral pleura. This appearance is unchanged. 4. Suspected cirrhosis and splenomegaly seen in the upper abdomen. There is ascites seen in the upper abdomen. Chest X-Ray 01/23/18 00:00 CONCLUSION: Stable findings including right apical extrapleural density and concentric opacity about the left hemithorax. Chest X-Ray 01/24/18 21:35 CONCLUSION: Stable chronic pleural disease and basilar density compared with January 23. No pneumothorax. No new infiltrate. Chest X-Ray 01/26/18 06:00 CONCLUSION: No significant change. Chest X-Ray 01/29/18 00:00 CONCLUSION: Extensive pleural and parenchymal changes as above. Study is compared back to a long series of exams dating to 01/14/2018. Since that exam the appearance of the parenchyma has improved. The patient has been extubated in the interim. Assessment and Plan - Plan Mr. Davenport is a pleasant 82-year-old male with a history of COPD, CHF who presented to the emergency department due to hypoxia and shortness of breath on 12/19/2017. EMS found patient with O2 saturation around 80s. He was also found to have significantly elevated blood pressure in the 200 range systolic. He was started on BiPAP. Shortly after transfer to the ICU, due to restlessness as well as hypoxemia, patient was intubated and put on mechanical ventilation. Patient was extubated on 12/26/2017. Critical care was reconsulted on 12/30/2017 2 days after patient care was transferred to hospitalist service. Patient was again intubated on 01/08/2018 and extubated on 01/20/2018. He required regular BiPAP treatment. He also developed ICU delirium which later improved. For details ICU course, please see progress note from critical care attending on 01/26/2018. Acute metabolic encephalopathy -resolved. -Continue acetaminophen 650 mg p.o. every 6 hours. -Morphine 2 mg every 4 hours as needed. Melatonin for insomnia. 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 Artery pressure in the 60s. 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 -Currently on nasal cannula 3-4 L -Appreciate infectious disease input. Patient is currently on micafungin. -Continue prednisone 10 mg twice daily, DuoNeb PRN and scheduled, Symbicort Diastolic heart failure -EF 60-65%. Will continue Lasix. May consider switching to Torsemide. -Will give one time dose of IV Lasix 20mg. -CBC, BMP, BNP in the AM. Diabetes mellitus -Currently on Levemir and Sliding scale insulin. -Will adjust to Levemir 10 units QHS, sliding scale with Aspart and pre-meal insulin with Aspart. Full code. SCDs. DVT prophylaxis is not started due to stool occult positive. Other: Today was my second day taking care of this patient. I sincerely believe all of the nurses, RTs, physicians and other providers share the passion to provide the best care possible to this patient who himself has been pleasant. However, quite unfortunately, family members have been extremely interfering in our effort to provide the care he needs. I have politely asked the family members to be respectful to our nurses and other staff members. We routinely take care of patients in the hospital and this situation arises very very rarely, in fact never in my 3 years. They have used insulting comments in front of me regarding other providers. They are trying to micromanage every thing we do for this patient. This assessment is also shared by the critical care attending who took care of this patient prior to transferring service to us (hospitalist) service. Our goal remains the same: to provide the best care to this patient. I have repeatedly explained this goal and asked family members to cooperate and not become obstacles. Unfortunately, they do not believe they are doing anything wrong. For the sake of this patient's medical care, I believe it is reasonable to remove interference from the family members for now. Patient is alert, oriented , follows commands approrpiately. We can communicate via developmental behavioral physician service.
--- NOTE | 2018-01-28 17:04 | P.PNID ---
Subjective Remarks: extubated. Tolerating NC O2 @ 2 L OOB in cjhair co weakness No expectoration No fever Antibiotics: z micafungin Allergies/Adverse Reactions: Allergies No Known Allergies Allergy (Verified 12/19/17 21:39) Objective Vital Signs 01/27/18 18:00 01/27/18 20:00 01/27/18 21:02 Temperature 98.5 F Pulse Rate 99 H 92 H 93 H Respiratory Rate 33 H 36 H Blood Pressure 132/62 Pulse Oximetry 96 100 01/27/18 22:00 01/27/18 22:32 01/28/18 00:00 Temperature 98.3 F Pulse Rate 94 H 94 H 92 H Respiratory Rate 34 H 25 H Blood Pressure 137/63 Pulse Oximetry 98 01/28/18 00:45 01/28/18 02:00 01/28/18 04:00 Temperature Pulse Rate 94 H 89 Respiratory Rate 35 H Blood Pressure 149/67 H Pulse Oximetry 95 94 L 01/28/18 04:24 01/28/18 04:30 01/28/18 06:00 Temperature Pulse Rate 82 83 82 Respiratory Rate 28 H 29 H Blood Pressure 134/61 Pulse Oximetry 100 01/28/18 08:00 01/28/18 10:00 01/28/18 12:00 Temperature 97.4 F L 97.5 F L Pulse Rate 86 83 76 Respiratory Rate 35 H 22 Blood Pressure 146/68 H 149/66 H Pulse Oximetry 93 L 100 01/28/18 13:47 01/28/18 14:00 01/28/18 16:00 Temperature 97.8 F Pulse Rate 85 87 83 Respiratory Rate 26 H 23 Blood Pressure 128/59 L Pulse Oximetry 100 92 L Intake & Output 01/27/18 01/28/18 01/28/18 18:59 06:59 18:59 Intake Total 720 / 720 100 / 100 Output Total 525 / 525 Balance 195 / 195 100 / 100 Weight 65.7 kg Intake: Oral 720 / 720 100 / 100 Output: Urine 525 / 525 Other: Date of Last Bowel Movement 01/27/18 01/28/18 01/27/18 # Bowel Movements 5 5 01/14/18 11:15 Bronchial Washings - Bronchial Acid Fast Bacilli Smear - Final No acid fast bacilli seen 01/14/18 11:15 Bronchial Washings - Bronchial Mycobacterial Culture - Preliminary No growth in 2 weeks 01/14/18 11:15 Bronchial Washings - Bronchial Fungal Smear - Final No fungal elements seen 01/14/18 11:15 Bronchial Washings - Bronchial Fungal Culture - Preliminary Aspergillus sp not fumigatus Lab - Chemistry Results 01/26/18 01/26/18 01/27/18 17:43 20:55 08:42 POC Glucose 375 H 430 H 282 H 01/27/18 01/27/18 01/27/18 13:01 17:52 21:29 POC Glucose 256 H 249 H 227 H 01/28/18 01/28/18 08:14 12:53 POC Glucose 198 H 232 H Imaging: ITS Impressions Abdomen Ultrasound 01/09/18 00:00 CONCLUSION: 1. Limited examination due to obscuration by bowel gas. 2. Simple left renal cyst. 3. Moderate amount of ascites in the right upper quadrant. Abdomen/Pelvis CT 01/13/18 00:00 CONCLUSION: 1. Patchy airspace disease right lung base and chronic loculated left pleural effusion not significantly changed since January 07. 2. Mild ascites with liver cirrhosis. 3. NG tip in stomach. Previous cholecystectomy. No bowel obstruction. 4. Multiple subacute lower right rib fractures. Venous Doppler Study 01/13/18 00:00 CONCLUSION: 1. The study is negative for lower extremity deep venous thrombosis. Abdomen X-Ray 01/15/18 00:00 CONCLUSION: Enteric tube placement as above. Chest CT 01/20/18 17:52 CONCLUSION: 1. Persistent areas of increased density in the subpleural region at the right apex and in the posterior right lower lung. These are unchanged from the prior exam. These could represent areas of pneumonia. The chronicity of these densities is not known. There is some cavitary change in the lateral right lower lung. All these findings are unchanged. Neoplasm cannot be excluded. These should be followed to complete resolution. If these areas persists, but can be followed up with a PET FDG study. 2. Volume loss in the left chest with increased density in the left perihilar region. There is bronchiectasis with material within the bronchi at the left lower lung. 3. Moderate left pleural effusion with thickening of the pleura and calcification of the visceral pleura. This appearance is unchanged. 4. Suspected cirrhosis and splenomegaly seen in the upper abdomen. There is ascites seen in the upper abdomen. Chest X-Ray 10/30/18 06:00 CONCLUSION: No significant change. Physical Exam: GENERAL: awake, alert communicates. NAD weak SKIN: Warm and dry. NO rash EYES: Pupils equal and round. No scleral icterus. No injection or drainage. ENT: No nasal bleeding or discharge. Mucous membranes pink and moist. NECK: Trachea midline. CARDIOVASCULAR: Regular rate and rhythm. RESPIRATORY: . few scattered rhonchi to auscultation. Breath sounds diminished bilaterally. GASTROINTESTINAL: Abdomen soft, mildly tender, mildly distended MUSCULOSKELETAL: Extremities without clubbing, cyanosis, or edema. No obvious deformities. NEUROLOGICAL: awake alert follows commands communicates approprietly PSYCHIATRIC: flat affect Assessment and Plan - Plan COPD exacerbation Multiple pumonary pathologies (COPD, asbestosis) RLL PNA, suspected pulmonary aspergillosis though it can be colonisation - galactomannan can tnot be checkes since pt was on zosyn x 1 month ( false + aw zosyn) - too risky for bx - dw Dr Lambert Dense airspace consolidation in the superior segment of the right lower lobe on CT - sputum neg x2 - dw radiologist: no fungus balls, however, does not exclude fungal PNA Abx associated diarrhea, C.diff neg 2/2, CT neg for colitis MS change ? 2/2 voriconazole now on micafungin PLAN: cont o micafungin for now will repeat non contrast chest CT next week cont Lactinex case dw family @ b/s
[2018-01-28] MEDS: Micafungin Inj 150 MG in Sodium Chlor 0.9% Inj 100 ML IV.SIG SCH (21:13)
[2018-01-29] MEDS: Oral Hygiene Kit OROPHARYNG SCH ×4 (03:17→16:52)
[2018-01-29] MEDS ORDERED: Dextrose 50% in Water 50 ML Vial IV.PUSH PRN (08:23)
[2018-01-29] MEDS: RESP: Acetylcysteine 10% 4 ML Neb NEB SCH ×6 (08:58→20:48)
[2018-01-29] MEDS: Chlorhexidine 0.12% Oral Kit 15 ML UDC OROPHARYNG SCH ×2 (09:48→20:45)
[2018-01-29] MEDS: predniSONE 10 MG Tablet PO SCH ×2 (09:49→20:45)
[2018-01-29] MEDS: Lactobacillus Acidophilus/L. Spores Tablet PO SCH ×3 (09:49→17:00)
[2018-01-29] MEDS: rifAXIMin 550 MG Tablet PO SCH ×2 (09:49→20:46)
[2018-01-29] MEDS: Furosemide 20 MG Tablet PO SCH (09:49)
[2018-01-29] MEDS: Carboxymethylcellulose 0.5% Opth Drops 15 ML Bottle EACH EYE SCH ×2 (09:50→20:45)
[2018-01-29] MEDS: Budesonide-Formoterol 160/4.5 MCG 6 GM Inhaler INH SCH ×2 (09:50→20:45)
[2018-01-29] MEDS: Bismuth Subsalicylate Susp 240 ML Bottle NG/OG SCH ×3 (09:50→17:00)
--- NOTE | 2018-01-29 10:14 | XR ---
EXAM DATE: 01/29/2018 10:08 AM EDT AGE/SEX: 82 years / Male INDICATIONS: Congestion. CLINICAL DATA: This is the patient's subsequent encounter. Patient reports that signs and symptoms h ave been present for 1 month and indicates a pain score of 0/10. MEDICAL/SURGICAL HISTORY: . Chronic obstructive pulmonary disease. Congestive heart failure. Di abetes. . Lobectomy. COMPARISON: [facility] [place]ST 1V SINGLE AP, 01/14/2018. . FINDINGS: The examination demonstrates a left-sided pleural effusion and atelectatic changes. This is similar t o a previous dated back to at least 01/14/2018. There are advanced interstitial changes throughout the parenchyma on the right. The right-sided effus ion which was seen on the previous of 2017 has improved. The overall amount of edema within the paren chyma on the right has improved as well. There is apical pleural thickening at the right apex. The heart is normal in size. The osseous structures demonstrate an apparent old fracture of the left humeral head and degenerative changes within the spine. CONCLUSION: Extensive pleural and parenchymal changes as above. Study is compared back to a long series of exams dating to 01/14/2018. Since that exam the appearance of the parenchyma has improved. The patient has been extubated in the interim. Electronically signed by: Renny Christian MD 01/29/2018 10:12 AM EDT
[2018-01-29 11:21] LABS: Anion Gap 6 meq/L (5-15); Blood Urea Nitrogen 25 mg/dL (7-18); Calcium 8.6 mg/dL (8.5-10.1); Carbon Dioxide 28.8 meq/L (21.0-32.0); Chloride 102 meq/L (98-107); Glomerular Filtration Rate Greater Than 89 mL/min (>89); Glucose,Random 90 mg/dL (74-106); Potassium 4.4 meq/L (3.5-5.1); Sodium 137 meq/L (136-145)
[2018-01-29] MEDS: Insulin NovoLOG Aspart Correctional Sugar Inj SQ SCH ×3 (12:56→20:46)
[2018-01-29] MEDS: Morphine Sulfate Inj 2 MG/ML Vial IV.PUSH PRN ×2 (16:52→22:30)
--- NOTE | 2018-01-29 18:40 | P.PN ---
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 Patient was on BiPAP for a few hours. Patient is not in any acute distress. No fever, chills. Family members at bedside. Currently on 3L of O2 via NC. Physical Exam Vital signs: Vital Signs 01/28/18 19:00 01/28/18 20:00 01/28/18 23:19 Temperature 98 F Pulse Rate 85 84 Respiratory Rate 20 23 Blood Pressure 146/67 H Pulse Oximetry 97 94 L 01/29/18 00:00 01/29/18 03:00 01/29/18 04:00 Temperature 97.9 F Pulse Rate 92 H 89 85 Respiratory Rate 36 H 21 Blood Pressure 159/69 H 128/85 Pulse Oximetry 95 96 01/29/18 06:16 01/29/18 08:00 01/29/18 09:04 Temperature 97.4 F L Pulse Rate 88 78 Respiratory Rate 26 H 36 H 22 Blood Pressure 134/60 Pulse Oximetry 96 93 L 99 01/29/18 11:50 01/29/18 12:00 01/29/18 16:00 Temperature 98.0 F 98.4 F Pulse Rate 105 H 101 H 101 H Respiratory Rate 26 H 29 H 38 H Blood Pressure 153/69 H 157/69 H Pulse Oximetry 91 L 92 L Intake & Output 01/28/18 01/29/18 01/29/18 18:59 06:59 18:59 Intake Total 720 / 720 250 / 250 480 / 480 Output Total 1275 / 1275 755 / 755 750 / 750 Balance -555 / -555 -505 / -505 -270 / -270 Weight 65.8 kg Intake: Oral 720 / 720 250 / 250 480 / 480 Output: Urine 750 / 750 Stool 5 / 5 Urine Amount (Catheter) 1275 / 1275 750 / 750 Condom 1275 / 1275 750 / 750 Other: Date of Last Bowel Movement 01/28/18 01/29/18 01/28/18 # Bowel Movements 6 6 Narrative: GENERAL: Alert, NAD. Currently on nasal cannula 3 L. SKIN: Warm and dry. HEAD: Normocephalic. EYES: No scleral icterus. No injection or drainage. NECK: Supple, trachea midline. No JVD or lymphadenopathy. CARDIOVASCULAR: Regular rate and rhythm without murmurs, gallops, or rubs. RESPIRATORY: Moderate air entry, diminished breath sounds on the left side. No accessory muscle use. GASTROINTESTINAL: Abdomen soft, non-tender, nondistended. MUSCULOSKELETAL: No cyanosis, or edema. BACK: Nontender without obvious deformity. No CVA tenderness. - Urinary Catheter Management Straight Cath placed during this visit: yes, but has since been removed by the nurse Reason for continuing: Not indwelling catheter Insertion date: 12/23/17 Insertion time: 01:00 Removal date: 12/22/17 Removal time: 01:00 Condom Cath placed during this visit: no Results - Labs CBC & Chem 7: 01/25/18 10:42 01/29/18 10:41 Laboratory Results - last 24 hr 01/28/18 01/29/18 01/29/18 21:07 08:26 10:41 Sodium 137 Potassium 4.4 Chloride 102 Carbon Dioxide 28.8 Anion Gap 6 BUN 25 H Creatinine 0.64 Estimated GFR Greater than 89 POC Glucose 231 H 116 H Random Glucose 90 Calcium 8.6 01/29/18 01/29/18 12:48 16:57 Sodium Potassium Chloride Carbon Dioxide Anion Gap BUN Creatinine Estimated GFR POC Glucose 160 H 194 H Random Glucose Calcium - Imaging Impressions Chest X-Ray 01/29/18 00:00 CONCLUSION: Extensive pleural and parenchymal changes as above. Study is compared back to a long series of exams dating to 01/14/2018. Since that exam the appearance of the parenchyma has improved. The patient has been extubated in the interim. - Procedures Intubation. Assessment and Plan - Plan Mr. Davenport is a pleasant 82-year-old male with a history of COPD, CHF who presented to the emergency department due to hypoxia and shortness of breath on 12/19/2017. EMS found patient with O2 saturation around 80s. He was also found to have significantly elevated blood pressure in the 200 range systolic. He was started on BiPAP. Shortly after transfer to the ICU, due to restlessness as well as hypoxemia, patient was intubated and put on mechanical ventilation. Patient was extubated on 12/26/2017. Critical care was reconsulted on 12/30/2017 2 days after patient care was transferred to hospitalist service. Patient was again intubated on 01/08/2018 and extubated on 01/20/2018. He required regular BiPAP treatment. He also developed ICU delirium which later improved. For details ICU course, please see progress note from critical care attending on 01/26/2018. Acute metabolic encephalopathy -resolved. -Continue acetaminophen 650 mg p.o. every 6 hours. -Morphine 2 mg every 4 hours as needed. Melatonin for insomnia. 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 Artery pressure in the 60s. 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 -Currently on nasal cannula 3-4 L -Appreciate infectious disease input. Patient is currently on micafungin. -Continue prednisone 10 mg twice daily, DuoNeb PRN and scheduled, Symbicort -Discussed with ID. CT chest early next week. Diastolic heart failure -EF 60-65%. Will continue Lasix. May consider switching to Torsemide. -Will give one time dose of IV Lasix 20mg. Patient has an external urinary catheter. -CBC, BMP, BNP in the AM. Diabetes mellitus -Currently on Levemir and Sliding scale insulin. -Will adjust to Levemir 10 units QHS, sliding scale with Aspart and pre-meal insulin with Aspart. Full code. SCDs. DVT prophylaxis is not started due to stool occult positive. Other: I mistakenly entered the following section in yesterdays' note. This should belong to today's note (01/29/2018). Today (01/29/2018) was my third day taking care of this patient. I sincerely believe all of the nurses, RTs, physicians and other providers share the passion to provide the best care possible to this patient who himself has been pleasant. However, quite unfortunately, family members have been extremely interfering in our effort to provide the care he needs. I have politely asked the family members to be respectful to our nurses and other staff members. We routinely take care of patients in the hospital and this situation arises very very rarely, in fact never in my 3 years. They have used insulting comments in front of me regarding other providers. They are trying to micromanage every thing we do for this patient. This assessment is also shared by the critical care attending who took care of this patient prior to transferring service to us (hospitalist) service. Our goal remains the same: to provide the best care to this patient. I have repeatedly explained this goal and asked family members to cooperate and not become obstacles. Unfortunately, they do not believe they are doing anything wrong. For the sake of this patient's medical care, I believe it is reasonable to remove interference from the family members for now. Patient is alert, oriented , follows commands appropriately. We can communicate via manager maritime service.
--- NOTE | 2018-01-29 19:00 | P.PN ---
Subjective Interval history: he is doing better. On O2 at 3 L N/C and sats are 94. Good output. Tolerates PO diet. Physical Exam Vital signs: Vital Signs 01/28/18 19:00 01/28/18 20:00 01/28/18 23:19 Temperature 98 F Pulse Rate 85 84 Respiratory Rate 20 23 Blood Pressure 146/67 H Pulse Oximetry 97 94 L 01/29/18 00:00 01/29/18 03:00 01/29/18 04:00 Temperature 97.9 F Pulse Rate 92 H 89 85 Respiratory Rate 36 H 21 Blood Pressure 159/69 H 128/85 Pulse Oximetry 95 96 01/29/18 06:16 01/29/18 08:00 01/29/18 09:04 Temperature 97.4 F L Pulse Rate 88 78 Respiratory Rate 26 H 36 H 22 Blood Pressure 134/60 Pulse Oximetry 96 93 L 99 01/29/18 11:50 01/29/18 12:00 01/29/18 16:00 Temperature 98.0 F 98.4 F Pulse Rate 105 H 101 H 101 H Respiratory Rate 26 H 29 H 38 H Blood Pressure 153/69 H 157/69 H Pulse Oximetry 91 L 92 L Intake & Output 01/28/18 01/29/18 01/29/18 18:59 06:59 18:59 Intake Total 720 / 720 250 / 250 480 / 480 Output Total 1275 / 1275 755 / 755 750 / 750 Balance -555 / -555 -505 / -505 -270 / -270 Weight 65.8 kg Intake: Oral 720 / 720 250 / 250 480 / 480 Output: Urine 750 / 750 Stool 5 / 5 Urine Amount (Catheter) 1275 / 1275 750 / 750 Condom 1275 / 1275 750 / 750 Other: Date of Last Bowel Movement 01/28/18 01/29/18 01/28/18 # Bowel Movements 6 6 Narrative: GENERAL: Alert, NAD. SKIN: Warm and dry. HEAD: Normocephalic. EYES: No scleral icterus. No injection or drainage. NECK: Supple, trachea midline. No JVD or lymphadenopathy. CARDIOVASCULAR: Regular rate and rhythm without murmurs, gallops, or rubs. RESPIRATORY: Occ Wheeze in upper chest. diminished breath sounds on the left side. No accessory muscle use. GASTROINTESTINAL: Abdomen soft, non-tender, nondistended. MUSCULOSKELETAL: No cyanosis, or edema. BACK: Nontender without obvious deformity. No CVA tenderness. - Urinary Catheter Management Straight Cath placed during this visit: yes, but has since been removed by the nurse Reason for continuing: Not indwelling catheter Insertion date: 12/23/17 Insertion time: 01:00 Removal date: 12/22/17 Removal time: 01:00 Condom Cath placed during this visit: no Results - Labs CBC & Chem 7: 01/25/18 10:42 01/29/18 10:41 Laboratory Results - last 24 hr 01/28/18 01/29/18 01/29/18 21:07 08:26 10:41 Sodium 137 Potassium 4.4 Chloride 102 Carbon Dioxide 28.8 Anion Gap 6 BUN 25 H Creatinine 0.64 Estimated GFR Greater than 89 POC Glucose 231 H 116 H Random Glucose 90 Calcium 8.6 01/29/18 01/29/18 12:48 16:57 Sodium Potassium Chloride Carbon Dioxide Anion Gap BUN Creatinine Estimated GFR POC Glucose 160 H 194 H Random Glucose Calcium - Imaging Impressions Chest X-Ray 01/29/18 00:00 CONCLUSION: Extensive pleural and parenchymal changes as above. Study is compared back to a long series of exams dating to 01/14/2018. Since that exam the appearance of the parenchyma has improved. The patient has been extubated in the interim. - Procedures Intubation. Assessment and Plan - Assessment (1) Respiratory failure requiring intubation Code(s): J96.90 - Respiratory failure, unspecified, unspecified whether with hypoxia or hypercapnia Status: Acute (2) Pneumonia Code(s): J18.9 - Pneumonia, unspecified organism Status: Acute (3) CHF (congestive heart failure), NYHA class II Code(s): I50.9 - Heart failure, unspecified Status: Acute (4) CHF (congestive heart failure) Code(s): I50.9 - Heart failure, unspecified Status: Acute (5) Respiratory abnormalities Code(s): J98.9 - Respiratory disorder, unspecified Status: Acute (6) Emphysema of lung Code(s): J43.9 - Emphysema, unspecified Status: Acute (7) Borderline diabetes mellitus Code(s): R73.03 - Prediabetes Status: Acute (8) Fracture, intertrochanteric, left femur Code(s): S72.142A - Displaced intertrochanteric fracture of left femur, initial encounter for closed fracture Status: Acute (9) Nutrition, metabolism, and development symptoms Code(s): R63.8 - Other symptoms and signs concerning food and fluid intake Status: Acute (10) Aspergillosis, with pneumonia Code(s): B44.9 - Aspergillosis, unspecified Status: Acute - Plan RECOMMENDATIONS: 1. BIPAP 15/5 Cm FIo2 30 % at HS 12 hrs. 2. Bronchodilators ,DuoNeb q.6 hr. 3. D/W family here 4 .CBC ,BMP in am 5. Continue with Lasix 40 mg daily. 6. Cont antibiotics per ID. 7. O2 N/C 3 L when off BiPAP 8.Rehab placement 9.CT chest next week 10. Cont Prednisone 10 mg PO BID
[2018-01-29] MEDS: Micafungin Inj 150 MG in Sodium Chlor 0.9% Inj 100 ML IV.SIG SCH (20:44)
[2018-01-29] MEDS: Insulin Detemir Inj 1,000 UNIT/10 ML Vial SQ SCH (20:45)
[2018-01-29] MEDS ORDERED: Insulin Detemir Inj 1,000 UNIT/10 ML Vial SQ SCH (21:00)
[2018-01-29] MEDS ORDERED: Haloperidol Inj 5 MG/ML Ampul IM ONE ×2 (21:13→23:28)
[2018-01-29 21:41] LABS: ABG Base Excess 5.2 mmol/L (-2-2); ABG PCO2 45 mmHg (38-42); ABG PO2 59 mmHG (61-120)
--- NOTE | 2018-01-29 23:44 | P.PNCC ---
Subjective Subjective Remarks/Hospital Course: 82-year-old male with past medical history of COPD and CHF presents for an evaluation of shortness of breath and hypoxemia worsening over past few days. The nebulizer treatments helped initially however today there were not helpful. EMS reports on scene the O2 sat was in the 80s. He received high flow oxygen and nebulized albuterol in route here. His blood pressure initially in the emergency department was 200/100 however trended down to about 160/90. BiPAP was started in the emergency department with improvement in his O2 sat that has trended towards the high 90s with 100% FiO2 on BiPAP. Shortly after transfer to ICU the patient continues to to be more hypoxemic and restless requiring endotracheal intubation and mechanical ventilation. 12/20: intubated and sedated. still hypercarbic with [id number] respiratory acidosis. family unhappy that patient was intubated: they insisted last night on being a Full Code, but apparently the daughter required that she be notified of exactly what SpO2 the patient was at, and it had to reach a certain low level before she would be ok with intubation. Per overnight records , patient presented with severe respiratory distress, and family reports that EMS stated patient "wouldn't make it all the way to [facility]" due to his pulmonary instability. This morning, hypoxia is somewhat improved. remains on broad spectrum antibiotics. I explained to family that this is likely a new pneumonia causing respiratory failure. I also explained that after recent hip fracture and recent prolonged hospitalization, his baseline end-stage lung disease and NYHA Class IV symptoms are likely to worsen, and this may be worsening of his overall end-stage disease processes. Family continues to state that our facility caused his lung failure during the prior hospitalization. They are also concerned about his poor peripheral perfusion and oliguria, which concerns me also: I explained that his heart failure could not tolerate significant amount of iv fluids, and we have already given him 1500mL over the last 12 hours, but they have insisted on additional iv fluids. I explained he had severe sepsis and the mortality associated with this. Daughter continues to remind me that her father "is coming home with her and getting better" as she has stated multiple times in the past. 12/21: no improvements. remains intubated. clinically becoming volume overloaded - will be forced to start diuresis. 12/22: mental status slightly improved. still failing weaning attempts. 12/23: Afebrile. Currently on PSV trial 15/7 at 45%. Discussed with and daughter at bedside. Chest x-ray revealed ET tube at [place]. Retracted 1 cm. Tolerating tube feeds with family requested 40 cc an hour. 12/24: Afebrile. Currently CPAP trial FiO2 at 45%. Tolerating tube feeds if family requested 40 cc an hour. Receiving morphine 1-2 mg every 4 hours as needed pain. 12/25 No events overnight remains intubated off sedation. Tolerated CPAP for several hrs yesterday. Afebrile. 12/26 No events overnight. Patient tolerated CPAP for most of day yesterday. Awake and alert follows commands, on no sedation. 12/27 Patient was extubated yesterday on 4L oxygen. Awake. Afebrile. 12/28 No events overnight. Remains on 4L oxygen. Awake and alert. 12/30: RECONSULT NOTE: reconsulted as rapid response for hypoxia. per the family , patient had desaturation episode to the 60s, placed on NRB. family insisted on transfer back to ICU. when I saw patient on arrival to ICU, patient spo2 99% on NRB. pao2 on NRB was 150. patient is well-known to me with baseline spo2 82- 86% on 5L o2 by NC at home. family states he has another pneumonia. on my review of CXR and lab evidence, unclear if this is new pneumonia vs. old chronic lung disease. patient denies sob or new symptoms. 12/31: no changes. remains on simple mask at 6LPM. not in distress. family does not want to leave ICU and wants to continue ICU care for the remainder of the hospitalization. long discussion about needing to de-escalate level of care prior to hospital discharge. 01/07 Reconsult for Resp. distress. Patient was placed on BIPAP with 60% FIO2. ABG this morning showed some improvements in his resp acidosis with PH:7.34, CO2 72 from 82. CXR from 16/[address] chest today. 01/08 Patient was intubated this morning for worsening resp acidosis. CT chest yesterday showed pneumonia/aspiration. On Diprivan for sedation. Afebrile. 01/09 Patient is intubated and on low dose Diprivan drip. Afebrile. 01/10 Patient remains intubated. Awake, tolerated CPAP for most of day yesterday. Afebrile. 01/11 No events overnight. Awake and alert off sedation, tolerated CPAP all day yesterday. Afebrile. 01/12: Family concern regarding testicular swelling. I went over available laboratories. Will check hepatitis C genotype and PCR viral load today. We will also check C. difficile per family request. Patient tolerated CPAP yesterday for around 10 hours. Has been on CPAP since 8 AM this morning. FiO2 35%. 01/13: Afebrile. Remains on CPAP trial 16/08 at 35%. All x-rays pending. Long discussion with family at bedside and via telephone. Plan for bronchoscopy tomorrow if okay with 2 other daughters with pulmonology. 01/14: remains intubated, sedated. plan for bronch today with pulmonary at bedside. failing SBTs. 01/15: intubated and sedated. will attempt SBT today. discussion yesterday with family: if he passes SBT, will proceed with extubation, but high risk for decompensation and re-intubation. if he gets reintubated again, will need trach/ peg to continue forward and aggressive care. 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 01/16: Remains orally intubated on mechanical ventilation. ABG done today borderline. Resumed Lasix. GI started spironolactone to mobilize fluid. 01/17: Remains orally intubated on mechanical ventilation. Daily CPAP trials 01/18: Awake, alert, orally intubated on mechanical ventilation. Daily CPAP trials ongoing. Continues to have diarrhea. 01/19: Drowsy, easily arousable, orally intubated on mechanical ventilation. Daily CPAP trials with respiratory rate 28 tidal volumes 250s-300. 01/20: Awake, alert, orally intubated on mechanical ventilation at the time of my evaluation. Tolerating CPAP trials +5/+5. Respiratory rate 28-30, tidal volumes 250s-300. Discussed with Dr. Geurrier. Will proceed with extubation. Explained to family patient is high risk for intubation and that we will be using intermittent BiPAP if needed. 01/21: awake and alert. extubated yesterday. on 2.5L o2 by nc. somewhat tachypneic, but otherwise stable. BALs growing aspergillus. left pleural effusion persists on CT, but at this point, risk/benefit likely in favor of conservative management. 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 They continue to press for ongoing aggressive care and continue to state he will come home with them soon. 01/22: clinically worse today. back on BiPAP. fio2 still 35%, but very tired. family concerned about breathing: again I discussed the fact that he is deconditioned and I am concerned that he will fail after he tires out. I expressed my concern that this will keep happening and he will end up back on life-support. Family continues to intermittently refuse accuchecks and SQ insulin, but today have concerns that his blood sugar is higher than it has been and they asked his insulin be adjusted. I have increased his glycemic control and ask that the family allow us to administer the ordered insulin. 01/23: Patient had a good morning however becoming more confused and agitated this afternoon. We will place back on BiPAP. Requesting melatonin at night for insomnia. States he gets confused at night likely ICU delirium. 01/24: Intermittently on BiPAP overnight. Became agitated and confused but improved. Hemoglobin currently 10.4. BMP pending. No other acute issues ongoing. 01/25: Patient became confused overnight. Placed on BiPAP and dexmedetomidine drip. Received 2 mg morphine sulfate. Lethargic this a.m. Tolerating BiPAP however. Family request echocardiogram was performed today and a consultation Dr. Shoemaker if abnormalities from persist from 11/14 echocardiogram. 01/26: Remains on nasal cannula 2.5lit/min. OOB to chair at the time of my evaluation. Awake, alert. Subjective 01/29: Reconsult as needed severe agitation. We will start on low-dose Precedex drip. Patient received Geodon and Haldol without response. Objective Vital Signs / I&O: Vital Signs 01/29/18 00:00 01/29/18 03:00 01/29/18 04:00 Temperature 97.9 F Pulse Rate 92 H 89 85 Respiratory Rate 36 H 21 Blood Pressure 159/69 H 128/85 Pulse Oximetry 95 96 01/29/18 06:16 01/29/18 08:00 01/29/18 09:04 Temperature 97.4 F L Pulse Rate 88 78 Respiratory Rate 26 H 36 H 22 Blood Pressure 134/60 Pulse Oximetry 96 93 L 99 01/29/18 11:50 01/29/18 12:00 01/29/18 16:00 Temperature 98.0 F 98.4 F Pulse Rate 105 H 101 H 101 H Respiratory Rate 26 H 29 H 38 H Blood Pressure 153/69 H 157/69 H Pulse Oximetry 91 L 92 L 01/29/18 20:00 01/29/18 23:12 Temperature Pulse Rate 101 H Respiratory Rate 32 H Blood Pressure Pulse Oximetry 94 L Intake & Output 01/29/18 01/29/18 01/30/18 06:59 18:59 06:59 Intake Total 350 / 350 480 / 480 Output Total 755 / 755 750 / 750 Balance -405 / -405 -270 / -270 Weight 65.8 kg Intake: IV 100 / 100 Mycamine Inj 150 MG In NS Inj 100 / 100 100 ML @ 100 mls/hr IV.SIG Q24H NOAH Rx#:[id number] Oral 250 / 250 480 / 480 Output: Urine 750 / 750 Stool 5 / 5 Urine Amount (Catheter) 750 / 750 Condom 750 / 750 Other: Date of Last Bowel Movement 01/29/18 01/28/18 01/29/18 # Bowel Movements 6 Result Diagrams: 01/25/18 10:42 01/29/18 10:41 Other Results: Microbiology 01/14/18 11:15 Bronchial Washings - Bronchial Acid Fast Bacilli Smear - Final No acid fast bacilli seen 01/14/18 11:15 Bronchial Washings - Bronchial Mycobacterial Culture - Preliminary No growth in 2 weeks 01/14/18 11:15 Bronchial Washings - Bronchial Fungal Smear - Final No fungal elements seen 01/14/18 11:15 Bronchial Washings - Bronchial Fungal Culture - Preliminary Aspergillus sp not fumigatus 01/14/18 11:15 Bronchial - Bronchial Gram Stain - Final 01/14/18 11:15 Bronchial - Bronchial Bronchial Culture - Final Aspergillus sp not fumigatus 01/14/18 11:15 Bronchial Brushings - Bronchial Bronchial Gibson Culture - Final Aspergillus sp not fumigatus 01/14/18 00:45 Stool Stool Occult Blood (LUIS FELIPE) - Final Hemoccult negative 01/08/18 09:11 Sputum - Endotracheal Gram Stain - Final 01/08/18 09:11 Sputum - Endotracheal Sputum Culture - Final Heavy growth normal respiratory vaishnavi 01/02/18 03:40 Stool Stool Occult Blood (LUIS FELIPE) - Final Hemoccult positive 12/19/17 21:20 Blood - Peripheral Aerobic Blood Culture - Final No growth in 5 days 12/19/17 21:20 Blood - Peripheral Anaerobic Blood Culture - Final No growth in 5 days 12/19/17 21:30 Blood - Peripheral Aerobic Blood Culture - Final No growth in 5 days 12/19/17 21:30 Blood - Peripheral Anaerobic Blood Culture - Final No growth in 5 days 12/20/17 14:10 Sputum - Endotracheal Gram Stain - Final 12/20/17 14:10 Sputum - Endotracheal Sputum Culture - Final Heavy growth normal respiratory vaishnavi 12/20/17 11:50 Clean Catch Urine Urine Culture - Final No growth in 48 hours 12/20/17 11:50 Urine - Catheterized Urine Legionella Antigen - Final Presumptive negative for Legionella pneumophila serogroup 1 antigen in urine, suggesting no recent or recurrent infection. Infection due to Legionella cannot be ruled out since other serogroups and species may cause disease, antigen may not be present in urine in early infection, and the level of antigen present in the urine may be below the detection limit of the test. 12/20/17 11:50 Urine - Catheterized Urine Streptococcus pneumoniae Antigen ( M - Final Presumptive negative for streptococcus pneumoniae antigen, suggesting no current or recent infection. Infection due to Streptococcus pneumoniae cannot be ruled out since the antigen present in the sample may be below the detection limit of the test. Imaging: Chest X-Ray 12/19/17 21:26 CONCLUSION: Worsening airspace process right lower lung most likely pneumonia with completely opacified left hemithorax probably due to a pleural effusion and/or left lung consolidation/collapse. Underlying mass is difficult to exclude. Chest X-Ray 12/20/17 04:19 CONCLUSION: 1. Worsening right upper lobe consolidation. 2. Slightly improved right base consolidation. 3. Volume loss, consolidation and pleural effusion on the left slightly improved. Chest X-Ray 12/21/17 05:00 CONCLUSION: No significant interval change. Persistent left-sided pleural effusion and pulmonary parenchymal opacity along with hazy right lung opacity. Chest X-Ray 12/23/17 00:00 CONCLUSION: Endotracheal tube tip at the [place]. No other significant interval change. Persistent left pleural effusion and bilateral pulmonary parenchymal opacity. Chest X-Ray 12/24/17 06:00 CONCLUSION: No significant interval change. Left-sided pleural effusion and mild bilateral parenchymal opacity again seen. Chest X-Ray 12/25/17 06:00 CONCLUSION: No significant change. Chest X-Ray 12/29/17 12:02 CONCLUSION: 1. Interval extubation. 2. No significant change in the left pleural-based opacity calcification. Chest X-Ray 12/30/17 00:00 CONCLUSION: 1. Worsening airspace disease in the right mid to lower lung zones. 2. Persistent prominent left-sided pleural thickening and calcified pleural plaques with associated volume loss. 3. Stable right apical pleural-parenchymal scarring. Chest X-Ray 12/31/17 00:00 CONCLUSION: 1. Slightly improved right mid to lower lung zone airspace disease. 2. Persistent prominent diffuse left-sided pleural opacity/thickening with associated left lung volume loss. 3. Stable right apical pleural parenchymal scarring. Abdomen X-Ray 01/01/18 00:00 CONCLUSION: 1. No bowel obstruction, ileus or perforation. 2. Degenerative changes and scoliosis of the lumbar spine. Chest X-Ray 01/05/18 00:00 CONCLUSION: Stable chest with prominent lateral left-sided pleural opacity likely pleural effusion. Pleural-parenchymal density right lung is also stable. Chest CT 01/07/18 00:00 CONCLUSION: 1. Postsurgical features of suspected previous left-sided lobectomy with volume loss and mediastinal shift to the left. 2. Bulky left-sided pleural plaques with chronic appearing small to moderate sized loculated left pleural effusion. 3. Dense airspace consolidation in the superior segment of the right lower lobe with patchy interstitial and groundglass opacities throughout the right lower lobe. Differential considerations include pneumonia and aspiration in the appropriate clinical setting. 4. Trace right-sided pleural effusion with fluid extending into the major fissure. 5. Mild coronary artery calcifications. 6. Small amount of ascites in the visualized upper abdomen. Chest X-Ray 01/08/18 06:58 CONCLUSION: Stable chest following ablation. Moderate either pleural thickening or pleural fluid remains on the right. Moderate interstitial edema persist. Abdomen Ultrasound 01/09/18 00:00 CONCLUSION: 1. Limited examination due to obscuration by bowel gas. 2. Simple left renal cyst. 3. Moderate amount of ascites in the right upper quadrant. Chest X-Ray 01/10/18 06:00 CONCLUSION: Stable to slight increase in right basilar airspace disease. Loculated left pleural fluid and left basilar opacity are stable. Chest X-Ray 01/12/18 07:41 CONCLUSION: 1. Stable ETT and NGT. 2. Slightly improved airspace disease in the right mid to lower lung zones. 3. Persistent moderate loculated left-sided pleural effusion with associated left lung airspace disease and volume loss. Abdomen/Pelvis CT 01/13/18 00:00 CONCLUSION: 1. Patchy airspace disease right lung base and chronic loculated left pleural effusion not significantly changed since January 07. 2. Mild ascites with liver cirrhosis. 3. NG tip in stomach. Previous cholecystectomy. No bowel obstruction. 4. Multiple subacute lower right rib fractures. Venous Doppler Study 01/13/18 00:00 CONCLUSION: 1. The study is negative for lower extremity deep venous thrombosis. Chest X-Ray 01/14/18 06:00 CONCLUSION: Diffuse edema versus pneumonia. There has been no significant change when compared to the prior exam. Chest X-Ray 01/14/18 11:24 CONCLUSION: No pneumothorax as questioned. Grossly stable chest appearance. Abdomen X-Ray 01/15/18 00:00 CONCLUSION: Enteric tube placement as above. Chest X-Ray 01/17/18 10:35 CONCLUSION: No significant change. Chest X-Ray 01/20/18 00:00 CONCLUSION: Diffuse increased interstitial markings related to either underlying process such as edema or underlying interstitial disease. Suspected large left effusion. Extrapleural density seen over the right upper chest which is stable. Chest CT 01/20/18 17:52 CONCLUSION: 1. Persistent areas of increased density in the subpleural region at the right apex and in the posterior right lower lung. These are unchanged from the prior exam. These could represent areas of pneumonia. The chronicity of these densities is not known. There is some cavitary change in the lateral right lower lung. All these findings are unchanged. Neoplasm cannot be excluded. These should be followed to complete resolution. If these areas persists, but can be followed up with a PET FDG study. 2. Volume loss in the left chest with increased density in the left perihilar region. There is bronchiectasis with material within the bronchi at the left lower lung. 3. Moderate left pleural effusion with thickening of the pleura and calcification of the visceral pleura. This appearance is unchanged. 4. Suspected cirrhosis and splenomegaly seen in the upper abdomen. There is ascites seen in the upper abdomen. Chest X-Ray 01/23/18 00:00 CONCLUSION: Stable findings including right apical extrapleural density and concentric opacity about the left hemithorax. Chest X-Ray 01/24/18 21:35 CONCLUSION: Stable chronic pleural disease and basilar density compared with January 23. No pneumothorax. No new infiltrate. Chest X-Ray 01/26/18 06:00 CONCLUSION: No significant change. Chest X-Ray 01/29/18 00:00 CONCLUSION: Extensive pleural and parenchymal changes as above. Study is compared back to a long series of exams dating to 01/14/2018. Since that exam the appearance of the parenchyma has improved. The patient has been extubated in the interim. Objective Remarks: GENERAL: 82-year-old male resting in bed on BiPAP confused. HEENT: Normocephalic. Atraumatic. Positive pallor, no icterus. Mucous membranes are moist NECK: Trachea is midline. No JVD CHEST: O2 nasal cannule 2.5lit/min. Equal chest rise. Coarse crackles. Diminished breath sounds left lung field. CARDIOVASCULAR: Normal rate, regular rhythm. ABDOMEN: Soft, nontender, nondistended. No guarding. MUSCULOSKELETAL: Pulses 2+. significant evidence of scrotal edema. 1+ peripheral edema. No mottling NEUROLOGICAL: RASS - 0. Awake, alert, follows commands. Moves all 4 extremities spontaneously.. 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 Plan to use intermittent BiPAP as needed. patient is at high risk of reintubation. IV methylprednisolone succinate switched to prednisone PO on 01/[address] Hesham Herman Pulmonary is following- Dr. Lazcano CT chest: Postsurgical features of suspected previous left-sided lobectomy with volume loss and mediastinal shift to the left. Bulky left-sided pleural plaques with chronic appearing small to moderate sized loculated left pleural effusion. Dense airspace consolidation in the superior segment of the right lower lobe with patchy interstitial and groundglass opacities throughout the right lower lobe. 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 Normal left ventricular size. Wall thickness is normal. No regional wall motion abnormalities are present. Diffuse calcification of the aortic valve but no significant stenosis. There is mild to moderate tricuspid valve regurgitation. The estimated pulmonary arterial pressure is 76.9 mmHg with severe pulmonary hypertension. Previously on furosemide 40 mg by tube daily. Restarted Lasix 40 mg IV every 12 hourly on 01/16. Discontinued GI started spironolactone 25 mg on 01/16. Now on torsemide 10 mg twice daily As needed labetalol and Nitropaste for hypertension Per family request, 2D echocardiogram limited ordered today 01/25. If any changes from previous echocardiogram. 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 Troponin 0.02 Renal/: History of nephrolithiasis edema Monitor renal function, I/O's, electrolytes replacement per protocol. Lasix has been resumed. Spironolactone 25 mg daily started 01/16 FEN/GI: Severe acute protein calorie malnutrition Hep C IgG positive. Genotype negative. PCR viral load negative. Hypernatremia Diarrhea speech eval and advance diet per their recommendations Lansoprazole for GI prophylaxis Docusate sodium/senna 1 tablet twice daily for bowel regimen GI is following US abdomen: Limited exam due to obscuration by bowel gas.Simple left renal cyst. small ascites in the right upper quadrant. Positive HepC IgG hepatitis C genotype and PCR viral load negative Start on Xifaxan 550 twice daily for diarrhea along with bismuth 15 mL 3 times daily ID: Healthcare associated pneumonia Severe sepsis- present on admission Normocytic anemia Thrombocytopenia Aspergillus pneumonia Voriconazole IV started on 01/16 per ID-changed to micafungin on 01/19 as family concerned that it was causing lethargy. BAL cultures growing Aspergillus, mold Follow up on sputum 01/08 normal resp vaishnavi Sputum culture 12/20-shea resp vaishnavi Blood cultures 12/19 no growth Urine UA with urine culture 12/20-NGTD Negative Legionella and pneumococcal urinary antigens Endocrine: Hyperglycemia of critical illness --Currently on insulin detemir 10 units at night - decrease SSI to low-dose AC/at bedtime Heme: Normocytic anemia Thrombocytopenia Monitor CBC, Hep PLT ab negative MSK:: History of left IT nailing 11/14 Vitamin D deficiency PT evaluate and treat Prophylaxis: GI Prophylaxis Lansoprazole DVT Prophylaxis -- SCDs - Enoxaparin held for anemia, thrombocytopenia and Hemoccult positive Lines: Peripheral IVs. Level 2 follow-up.
[2018-01-30] MEDS: Dexmedetomidine Inj 200 MCG in Sodium Chlor 0.9% Inj 48 ML IV.CONT PRN ×2 (00:14→08:55)
[2018-01-30] MEDS: Oral Hygiene Kit OROPHARYNG SCH ×4 (00:14→15:59)
[2018-01-30] MEDS: RESP: Acetylcysteine 10% 4 ML Neb NEB SCH (04:44)
[2018-01-30 06:02] LABS: Baso % (Auto) 0.4 % (0.0-2.0); Eos % (Auto) 0.3 % (0.0-4.0); Hematocrit 28.2 % (39.0-51.0); Hemoglobin 9.5 gm/dL (13.0-17.0); Lymph # (Auto) 0.7 th/mm3 (1.0-4.8); Lymph % (Auto) 5.5 % (9.0-44.0); Mean Corpuscular HGB Conc 33.7 % (32.0-36.0); Mean Corpuscular Hemoglobin 29.9 pg (27.0-34.0); Mean Corpuscular Volume 88.6 fL (80.0-100.0); Mean Platelet Volume 8.1 fL (7.0-11.0); Mono # (Auto) 0.7 th/mm3 (0.0-0.9); Mono % (Auto) 5.3 % (0.0-8.0); Neut % (Auto) 88.5 % (16.0-70.0); Platelet Count 140 th/mm3 (150-450); Red Blood Count 3.19 mil/mm3 (4.50-5.90); Red Cell Distribution Width 15.7 % (11.6-17.2); White Blood Count 12.4 th/mm3 (4.0-11.0)
[2018-01-30 06:30] LABS: Albumin 2.3 g/dL (3.4-5.0); Anion Gap 6 meq/L (5-15); Blood Urea Nitrogen 23 mg/dL (7-18); Carbon Dioxide 33.1 meq/L (21.0-32.0); Chloride 100 meq/L (98-107); Glomerular Filtration Rate Greater Than 89 mL/min (>89); Glucose,Random 77 mg/dL (74-106); Potassium 3.7 meq/L (3.5-5.1); Sodium 139 meq/L (136-145)
[2018-01-30 06:31] LABS: Alanine Aminotransferase 62 U/L (12-78); Aspartate Aminotransferase 34 U/L (15-37)
[2018-01-30 06:34] LABS: Alkaline Phosphatase 234 U/L (45-117); Total Protein 5.9 g/dL (6.4-8.2)
--- NOTE | 2018-01-30 08:20 | P.PNCC ---
Subjective Subjective Remarks/Hospital Course: 82-year-old male with past medical history of COPD and CHF presents for an evaluation of shortness of breath and hypoxemia worsening over past few days. The nebulizer treatments helped initially however today there were not helpful. EMS reports on scene the O2 sat was in the 80s. He received high flow oxygen and nebulized albuterol in route here. His blood pressure initially in the emergency department was 200/100 however trended down to about 160/90. BiPAP was started in the emergency department with improvement in his O2 sat that has trended towards the high 90s with 100% FiO2 on BiPAP. Shortly after transfer to ICU the patient continues to to be more hypoxemic and restless requiring endotracheal intubation and mechanical ventilation. 12/20: intubated and sedated. still hypercarbic with [id number] respiratory acidosis. family unhappy that patient was intubated: they insisted last night on being a Full Code, but apparently the daughter required that she be notified of exactly what SpO2 the patient was at, and it had to reach a certain low level before she would be ok with intubation. Per overnight records , patient presented with severe respiratory distress, and family reports that EMS stated patient "wouldn't make it all the way to [facility]" due to his pulmonary instability. This morning, hypoxia is somewhat improved. remains on broad spectrum antibiotics. I explained to family that this is likely a new pneumonia causing respiratory failure. I also explained that after recent hip fracture and recent prolonged hospitalization, his baseline end-stage lung disease and NYHA Class IV symptoms are likely to worsen, and this may be worsening of his overall end-stage disease processes. Family continues to state that our facility caused his lung failure during the prior hospitalization. They are also concerned about his poor peripheral perfusion and oliguria, which concerns me also: I explained that his heart failure could not tolerate significant amount of iv fluids, and we have already given him 1500mL over the last 12 hours, but they have insisted on additional iv fluids. I explained he had severe sepsis and the mortality associated with this. Daughter continues to remind me that her father "is coming home with her and getting better" as she has stated multiple times in the past. 12/21: no improvements. remains intubated. clinically becoming volume overloaded - will be forced to start diuresis. 12/22: mental status slightly improved. still failing weaning attempts. 12/23: Afebrile. Currently on PSV trial 15/7 at 45%. Discussed with and daughter at bedside. Chest x-ray revealed ET tube at camilla. Retracted 1 cm. Tolerating tube feeds with family requested 40 cc an hour. 12/24: Afebrile. Currently CPAP trial FiO2 at 45%. Tolerating tube feeds if family requested 40 cc an hour. Receiving morphine 1-2 mg every 4 hours as needed pain. 12/25 No events overnight remains intubated off sedation. Tolerated CPAP for several hrs yesterday. Afebrile. 12/26 No events overnight. Patient tolerated CPAP for most of day yesterday. Awake and alert follows commands, on no sedation. 12/27 Patient was extubated yesterday on 4L oxygen. Awake. Afebrile. 12/28 No events overnight. Remains on 4L oxygen. Awake and alert. 12/30: RECONSULT NOTE: reconsulted as rapid response for hypoxia. per the family , patient had desaturation episode to the 60s, placed on NRB. family insisted on transfer back to ICU. when I saw patient on arrival to ICU, patient spo2 99% on NRB. pao2 on NRB was 150. patient is well-known to me with baseline spo2 82- 86% on 5L o2 by NC at home. family states he has another pneumonia. on my review of CXR and lab evidence, unclear if this is new pneumonia vs. old chronic lung disease. patient denies sob or new symptoms. 12/31: no changes. remains on simple mask at 6LPM. not in distress. family does not want to leave ICU and wants to continue ICU care for the remainder of the hospitalization. long discussion about needing to de-escalate level of care prior to hospital discharge. 01/07 Reconsult for Resp. distress. Patient was placed on BIPAP with 60% FIO2. ABG this morning showed some improvements in his resp acidosis with PH:7.34, CO2 72 from 82. CXR from 16/[address] chest today. 01/08 Patient was intubated this morning for worsening resp acidosis. CT chest yesterday showed pneumonia/aspiration. On Diprivan for sedation. Afebrile. 01/09 Patient is intubated and on low dose Diprivan drip. Afebrile. 01/10 Patient remains intubated. Awake, tolerated CPAP for most of day yesterday. Afebrile. 01/11 No events overnight. Awake and alert off sedation, tolerated CPAP all day yesterday. Afebrile. 01/12: Family concern regarding testicular swelling. I went over available laboratories. Will check hepatitis C genotype and PCR viral load today. We will also check C. difficile per family request. Patient tolerated CPAP yesterday for around 10 hours. Has been on CPAP since 8 AM this morning. FiO2 35%. 01/13: Afebrile. Remains on CPAP trial 16/08 at 35%. All x-rays pending. Long discussion with family at bedside and via telephone. Plan for bronchoscopy tomorrow if okay with 2 other daughters with pulmonology. 01/14: remains intubated, sedated. plan for bronch today with pulmonary at bedside. failing SBTs. 01/15: intubated and sedated. will attempt SBT today. discussion yesterday with family: if he passes SBT, will proceed with extubation, but high risk for decompensation and re-intubation. if he gets reintubated again, will need trach/ peg to continue forward and aggressive care. 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 01/16: Remains orally intubated on mechanical ventilation. ABG done today borderline. Resumed Lasix. GI started spironolactone to mobilize fluid. 01/17: Remains orally intubated on mechanical ventilation. Daily CPAP trials 01/18: Awake, alert, orally intubated on mechanical ventilation. Daily CPAP trials ongoing. Continues to have diarrhea. 01/19: Drowsy, easily arousable, orally intubated on mechanical ventilation. Daily CPAP trials with respiratory rate 28 tidal volumes 250s-300. 01/20: Awake, alert, orally intubated on mechanical ventilation at the time of my evaluation. Tolerating CPAP trials +5/+5. Respiratory rate 28-30, tidal volumes 250s-300. Discussed with Dr. Guerrier. Will proceed with extubation. Explained to family patient is high risk for intubation and that we will be using intermittent BiPAP if needed. 01/21: awake and alert. extubated yesterday. on 2.5L o2 by nc. somewhat tachypneic, but otherwise stable. BALs growing aspergillus. left pleural effusion persists on CT, but at this point, risk/benefit likely in favor of conservative management. 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 They continue to press for ongoing aggressive care and continue to state he will come home with them soon. 01/22: clinically worse today. back on BiPAP. fio2 still 35%, but very tired. family concerned about breathing: again I discussed the fact that he is deconditioned and I am concerned that he will fail after he tires out. I expressed my concern that this will keep happening and he will end up back on life-support. Family continues to intermittently refuse accuchecks and SQ insulin, but today have concerns that his blood sugar is higher than it has been and they asked his insulin be adjusted. I have increased his glycemic control and ask that the family allow us to administer the ordered insulin. 01/23: Patient had a good morning however becoming more confused and agitated this afternoon. We will place back on BiPAP. Requesting melatonin at night for insomnia. States he gets confused at night likely ICU delirium. 01/24: Intermittently on BiPAP overnight. Became agitated and confused but improved. Hemoglobin currently 10.4. BMP pending. No other acute issues ongoing. 01/25: Patient became confused overnight. Placed on BiPAP and dexmedetomidine drip. Received 2 mg morphine sulfate. Lethargic this a.m. Tolerating BiPAP however. Family request echocardiogram was performed today and a consultation Dr. Shoemaker if abnormalities from persist from 11/14 echocardiogram. 01/26: Remains on nasal cannula 2.5lit/min. OOB to chair at the time of my evaluation. Awake, alert. Subjective 01/29: Reconsult as needed severe agitation. We will start on low-dose Precedex drip. Patient received Geodon and Haldol without response. 01/30: remains agitated on dexmedetomidine drip. will add zyprexa q8h. will also send ammonia, given severe TR, may have additional hepatic encephalopathy. remains on nc o2. need to start looking for placement. Objective Vital Signs / I&O: Vital Signs 01/29/18 09:04 01/29/18 11:50 01/29/18 12:00 Temperature 36.7 C Pulse Rate 78 105 H 101 H Respiratory Rate 22 26 H 29 H Blood Pressure 153/69 H Pulse Oximetry 99 91 L 01/29/18 16:00 01/29/18 20:00 01/29/18 23:12 Temperature 36.9 C 36.3 C L Pulse Rate 101 H 100 H Respiratory Rate 38 H 35 H 32 H Blood Pressure 157/69 H 186/88 H Pulse Oximetry 92 L 92 L 01/30/18 00:00 01/30/18 00:45 01/30/18 04:00 Temperature 36.2 C L 36.3 C L Pulse Rate 122 H 93 H Respiratory Rate 34 H 21 Blood Pressure 170/87 H 115/58 L Pulse Oximetry 87 L 94 L 97 01/30/18 08:00 Temperature Pulse Rate 93 H Respiratory Rate 16 Blood Pressure Pulse Oximetry 99 Intake & Output 01/29/18 01/30/18 01/30/18 18:59 06:59 18:59 Intake Total 480 / 480 60 / 60 Output Total 750 / 750 700 / 700 Balance -270 / -270 -640 / -640 Weight 59 kg Intake: Oral 480 / 480 60 / 60 Output: Urine 700 / 700 Urine Amount (Catheter) 750 / 750 Condom 750 / 750 Other: Date of Last Bowel Movement 01/28/18 01/29/18 # Bowel Movements 6 0 Result Diagrams: 01/30/18 05:26 01/30/18 05:26 Objective Remarks: GENERAL: 82-year-old male in bed on nc o2. HEENT: Normocephalic. Atraumatic. Positive pallor, no icterus. Mucous membranes are moist NECK: Trachea is midline. No JVD CHEST: O2 nc. Equal chest rise. Coarse crackles. Diminished breath sounds left lung field. CARDIOVASCULAR: Normal rate, regular rhythm. ABDOMEN: Soft, nontender, nondistended. No guarding. MUSCULOSKELETAL: Pulses 2+. significant evidence of scrotal edema. 1+ peripheral edema. No mottling NEUROLOGICAL: RASS +1. Awake, CAM+. agitated. moves all extremities spontaneously. Assessment and Plan - Assessment and Plan Plan: Assessment: 82yM with end-stage o2 dependent COPD and end-stage systemic pulmonary hypertension. long hospital course. now complicated by agitated delirium. continue precedex drip. add zyprexa. keep in ICU. highly complex. poor prognosis overall. Neuro/Psych Acute encephalopathy Monitor neuro status Acetaminophen liquid 650 every 6 hours as needed fever Morphine sulfate 1-2 mg IV every 4 hours as needed pain Melatonin 5 mg qHS scheduled. continue precedex drip start zyprexa 5mg po q8h. Respiratory: Acute hypoxic and hypercarbic respiratory failure- Intubated 01/08, extubated 01/20 End-stage COPD Status post left lower lobe pneumonectomy Congestive heart failure secondary to severe lung disease Right lower lobe healthcare associated pneumonia pulmonary hypertension right ventricular dysfunction On 2.5 L oxygen by nasal cannula at home continuously Albuterol/ipratropium aerosols every 6 hours with albuterol aerosols every 2 hours as needed dyspnea, Extubated to nasal cannula on 01/20. Plan to use intermittent BiPAP as needed. patient is at high risk of reintubation. IV methylprednisolone succinate switched to prednisone PO on 01/[address] Hesham Herman Pulmonary is following- Dr. Lazcano CT chest: Postsurgical features of suspected previous left-sided lobectomy with volume loss and mediastinal shift to the left. Bulky left-sided pleural plaques with chronic appearing small to moderate sized loculated left pleural effusion. Dense airspace consolidation in the superior segment of the right lower lobe with patchy interstitial and groundglass opacities throughout the right lower lobe. 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 Normal left ventricular size. Wall thickness is normal. No regional wall motion abnormalities are present. Diffuse calcification of the aortic valve but no significant stenosis. There is mild to moderate tricuspid valve regurgitation. The estimated pulmonary arterial pressure is 76.9 mmHg with severe pulmonary hypertension. Previously on furosemide 40 mg by tube daily. Restarted Lasix 40 mg IV every 12 hourly on 01/16. Discontinued GI started spironolactone 25 mg on 01/16. Now on torsemide 10 mg twice daily As needed labetalol and Nitropaste for hypertension Per family request, 2D echocardiogram limited ordered 01/25. If any changes from previous echocardiogram. 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 Troponin 0.02 Renal/: History of nephrolithiasis edema Monitor renal function, I/O's, electrolytes replacement per protocol. torsemide daily FEN/GI: Severe acute protein calorie malnutrition Hep C IgG positive. Genotype negative. PCR viral load negative. Hypernatremia Diarrhea speech eval and advance diet per their recommendations Lansoprazole for GI prophylaxis Docusate sodium/senna 1 tablet twice daily for bowel regimen GI is following US abdomen: Limited exam due to obscuration by bowel gas.Simple left renal cyst. small ascites in the right upper quadrant. Positive HepC IgG hepatitis C genotype and PCR viral load negative Start on Xifaxan 550 twice daily for diarrhea along with bismuth 15 mL 3 times daily ID: Healthcare associated pneumonia Severe sepsis- present on admission Normocytic anemia Thrombocytopenia Aspergillus pneumonia Voriconazole IV started on 01/16 per ID-changed to micafungin on 01/19 as family concerned that it was causing lethargy. BAL cultures growing Aspergillus, mold Follow up on sputum 01/08 normal resp vaishnavi Sputum culture 12/20-shea resp vaishnavi Blood cultures 12/19 no growth Urine UA with urine culture 12/20-NGTD Negative Legionella and pneumococcal urinary antigens Endocrine: Hyperglycemia of critical illness --Currently on insulin detemir 10 units at night - decrease SSI to low-dose AC/at bedtime Heme: Normocytic anemia Thrombocytopenia Monitor CBC, Hep PLT ab negative MSK:: History of left IT nailing 11/14 Vitamin D deficiency PT evaluate and treat Prophylaxis: GI Prophylaxis Lansoprazole DVT Prophylaxis -- SCDs - Enoxaparin held for anemia, thrombocytopenia and Hemoccult positive Lines: Peripheral IVs.
[2018-01-30] MEDS: Lactobacillus Acidophilus/L. Spores Tablet PO SCH ×3 (08:36→17:33)
[2018-01-30] MEDS: predniSONE 10 MG Tablet PO SCH (08:36)
[2018-01-30] MEDS: Chlorhexidine 0.12% Oral Kit 15 ML UDC OROPHARYNG SCH ×2 (08:36→22:17)
[2018-01-30] MEDS: rifAXIMin 550 MG Tablet PO SCH ×2 (08:36→22:19)
[2018-01-30] MEDS: Bismuth Subsalicylate Susp 240 ML Bottle NG/OG SCH ×3 (08:37→17:34)
[2018-01-30] MEDS: Carboxymethylcellulose 0.5% Opth Drops 15 ML Bottle EACH EYE SCH ×2 (08:38→22:20)
[2018-01-30] MEDS: Budesonide-Formoterol 160/4.5 MCG 6 GM Inhaler INH SCH ×2 (08:38→22:20)
[2018-01-30] MEDS: Insulin NovoLIN Regular Correctional Sugar Inj SQ SCH ×3 (12:05→22:30)
[2018-01-30] MEDS ORDERED: Labetalol HCl Inj 100 MG/20 ML Vial IV.PUSH PRN (14:39)
[2018-01-30 16:48] LABS: ABG Base Excess 4.5 mmol/L (-2-2); ABG PCO2 85 mmHg (38-42); ABG PO2 87 mmHG (61-120)
[2018-01-30 18:17] LABS: ABG Base Excess 3.6 mmol/L (-2-2); ABG PCO2 87 mmHg (38-42); ABG PO2 83 mmHG (61-120)
[2018-01-30] MEDS ORDERED: Midazolam Inj 5 MG/ML 1 ML Vial ONE (18:17)
--- NOTE | 2018-01-30 19:14 | P.PCN ---
Date of procedure: 01/30/18 Procedure: Endotracheal Intubation Diagnosis: Acute hypoxic and hypercarbic respiratory failure Indications: Acute hypoxic and hypercarbic respiratory failure Consent: I long conversation with the entire left radial family. I expressed my concern that this was her third intubation and that he would not clinically improved from this but would likely on mechanical ventilation. The family has traditionally been very aggressive with her goals of care. Family refused to give me consent to intubate, but would not agree to DNR CODE STATUS or DNI CODE STATUS. Family refused to give any medical direction at all. I discussed with them repeatedly that as long as her goals were aggressive, mechanical ventilation was the next step in the process. The family hung up on me over the phone would not talk further. Our goals of traditionally been aggressive, and we will proceed with intubation mechanical ventilation incongruence with our previously expressed aggressive goals. Anesthesia: No anesthesia was required. Patient was obtunded. Description of the Procedure: The patient was positioned in the sniffing position. Pre-oxygenation was performed using a 100% FiO2 BiPAP. A Trivedi #2 was used for laryngoscopy and a Grade I view was obtained. A 8.0 cuffed endotracheal tube was inserted atraumatically through the vocal cords. Confirmation of correct endotracheal tube placement was made by equal and bilateral breath sounds and colorimetric CO2 detection. The endotracheal tube was secured at 24 cm at the teeth. There were no immediate complications noted. The patient remained hemodynamically stable throughout the procedure. A chest x-ray has been ordered. I personally performed the procedure.
--- NOTE | 2018-01-30 19:58 | XR ---
EXAM DATE: 01/30/2018 7:48 PM EDT AGE/SEX: 82 years / Male INDICATIONS: Post intubation. CLINICAL DATA: This is the patient's subsequent encounter. Patient reports that signs and symptoms h ave been present for 1 month and indicates a pain score of Nonresponsive. MEDICAL/SURGICAL HISTORY: . Chronic obstructive pulmonary disease. Congestive heart failure. Di abetes. . Lobectomy. [place] [facility] [place]. . FINDINGS: Patchy parenchymal consolidation seen of both lungs. Chronic pleural thickening/effusion with volume loss again noted on the left. There is apical pleural thickening on the right. No pleural effusion on the right. No pneumothorax seen. Heart size stable, within normal limits. Endotracheal tube tip is 9 mm above the camilla. Nasogastric tube courses into the stomach. CONCLUSION: 1. Patient is now intubated. The endotracheal tube tip is close to the camilla and recommend pulling it back 1 to 2 cm. 2. Mild patchy parenchymal consolidation of both lungs. 3. Chronic apical pleural thickening on the right and diffuse pleural thickening with chronic effusi on and volume loss on the left. Electronically signed by: Arvin Lopez MD 01/30/2018 7:57 PM EDT
[2018-01-30] MEDS: Micafungin Inj 150 MG in Sodium Chlor 0.9% Inj 100 ML IV.SIG SCH (22:16)
[2018-01-30] MEDS: Melatonin 5 MG Tablet PO SCH (22:18)
[2018-01-30] MEDS: MethylPREDNISolone Sod Succinate Inj 40 MG/ML Vial IV.PUSH SCH (22:19)
[2018-01-30] MEDS: fentaNYL 10 mcg/mL Premix Drip 2,500 MCG/250 ML BAG IV.SIG PRN (22:44)
[2018-01-30] MEDS: Insulin Detemir Inj 1,000 UNIT/10 ML Vial SQ SCH (22:44)
[2018-01-31] MEDS: Oral Hygiene Kit OROPHARYNG SCH ×4 (00:34→15:13)
[2018-01-31 01:38] LABS: ABG Base Excess 4.7 mmol/L (-2-2); ABG PCO2 41 mmHg (38-42); ABG PO2 110 mmHG (61-120)
[2018-01-31 07:08] LABS: Hematocrit 27.6 % (39.0-51.0); Hemoglobin 9.5 gm/dL (13.0-17.0); Mean Corpuscular HGB Conc 34.5 % (32.0-36.0); Mean Corpuscular Hemoglobin 30.5 pg (27.0-34.0); Mean Corpuscular Volume 88.4 fL (80.0-100.0); Mean Platelet Volume 8.4 fL (7.0-11.0); Platelet Count 163 th/mm3 (150-450); Red Blood Count 3.12 mil/mm3 (4.50-5.90); Red Cell Distribution Width 15.5 % (11.6-17.2); White Blood Count 15.7 th/mm3 (4.0-11.0)
[2018-01-31 07:30] LABS: Alanine Aminotransferase 52 U/L (12-78); Albumin 2.1 g/dL (3.4-5.0); Anion Gap 9 meq/L (5-15); Aspartate Aminotransferase 30 U/L (15-37); Blood Urea Nitrogen 51 mg/dL (7-18); Calcium 8.1 mg/dL (8.5-10.1); Carbon Dioxide 29.7 meq/L (21.0-32.0); Chloride 102 meq/L (98-107); Glomerular Filtration Rate 87 mL/min (>89); Glucose,Random 86 mg/dL (74-106); Magnesium 1.9 mg/dL (1.5-2.5); Potassium 3.9 meq/L (3.5-5.1); Sodium 141 meq/L (136-145)
[2018-01-31 07:34] LABS: Alkaline Phosphatase 228 U/L (45-117); Prealbumin 12 mg/dL (20-40); Total Protein 5.7 g/dL (6.4-8.2)
[2018-01-31] MEDS: MethylPREDNISolone Sod Succinate Inj 40 MG/ML Vial IV.PUSH SCH ×2 (08:07→20:20)
[2018-01-31] MEDS: Carboxymethylcellulose 0.5% Opth Drops 15 ML Bottle EACH EYE SCH ×2 (08:07→20:20)
[2018-01-31] MEDS: Insulin NovoLIN Regular Correctional Sugar Inj SQ SCH ×4 (08:08→20:18)
[2018-01-31] MEDS: Chlorhexidine 0.12% Oral Kit 15 ML UDC OROPHARYNG SCH ×2 (08:08→20:17)
[2018-01-31] MEDS: Lactobacillus Acidophilus/L. Spores Tablet PO SCH ×3 (08:08→17:59)
[2018-01-31] MEDS: rifAXIMin 550 MG Tablet PO SCH ×2 (08:08→20:20)
[2018-01-31] MEDS: Bismuth Subsalicylate Susp 240 ML Bottle NG/OG SCH ×3 (08:09→17:59)
[2018-01-31] MEDS: Budesonide-Formoterol 160/4.5 MCG 6 GM Inhaler INH SCH ×2 (08:09→20:20)
--- NOTE | 2018-01-31 15:29 | P.PNCC ---
Subjective Subjective Remarks/Hospital Course: 82-year-old male with past medical history of COPD and CHF presents for an evaluation of shortness of breath and hypoxemia worsening over past few days. The nebulizer treatments helped initially however today there were not helpful. EMS reports on scene the O2 sat was in the 80s. He received high flow oxygen and nebulized albuterol in route here. His blood pressure initially in the emergency department was 200/100 however trended down to about 160/90. BiPAP was started in the emergency department with improvement in his O2 sat that has trended towards the high 90s with 100% FiO2 on BiPAP. Shortly after transfer to ICU the patient continues to to be more hypoxemic and restless requiring endotracheal intubation and mechanical ventilation. 12/20: intubated and sedated. still hypercarbic with [id number] respiratory acidosis. family unhappy that patient was intubated: they insisted last night on being a Full Code, but apparently the daughter required that she be notified of exactly what SpO2 the patient was at, and it had to reach a certain low level before she would be ok with intubation. Per overnight records , patient presented with severe respiratory distress, and family reports that EMS stated patient "wouldn't make it all the way to [facility]" due to his pulmonary instability. This morning, hypoxia is somewhat improved. remains on broad spectrum antibiotics. I explained to family that this is likely a new pneumonia causing respiratory failure. I also explained that after recent hip fracture and recent prolonged hospitalization, his baseline end-stage lung disease and NYHA Class IV symptoms are likely to worsen, and this may be worsening of his overall end-stage disease processes. Family continues to state that our facility caused his lung failure during the prior hospitalization. They are also concerned about his poor peripheral perfusion and oliguria, which concerns me also: I explained that his heart failure could not tolerate significant amount of iv fluids, and we have already given him 1500mL over the last 12 hours, but they have insisted on additional iv fluids. I explained he had severe sepsis and the mortality associated with this. Daughter continues to remind me that her father "is coming home with her and getting better" as she has stated multiple times in the past. 12/21: no improvements. remains intubated. clinically becoming volume overloaded - will be forced to start diuresis. 12/22: mental status slightly improved. still failing weaning attempts. 12/23: Afebrile. Currently on PSV trial 15/7 at 45%. Discussed with and daughter at bedside. Chest x-ray revealed ET tube at [place]. Retracted 1 cm. Tolerating tube feeds with family requested 40 cc an hour. 12/24: Afebrile. Currently CPAP trial FiO2 at 45%. Tolerating tube feeds if family requested 40 cc an hour. Receiving morphine 1-2 mg every 4 hours as needed pain. 12/25 No events overnight remains intubated off sedation. Tolerated CPAP for several hrs yesterday. Afebrile. 12/26 No events overnight. Patient tolerated CPAP for most of day yesterday. Awake and alert follows commands, on no sedation. 12/27 Patient was extubated yesterday on 4L oxygen. Awake. Afebrile. 12/28 No events overnight. Remains on 4L oxygen. Awake and alert. 12/30: RECONSULT NOTE: reconsulted as rapid response for hypoxia. per the family , patient had desaturation episode to the 60s, placed on NRB. family insisted on transfer back to ICU. when I saw patient on arrival to ICU, patient spo2 99% on NRB. pao2 on NRB was 150. patient is well-known to me with baseline spo2 82- 86% on 5L o2 by NC at home. family states he has another pneumonia. on my review of CXR and lab evidence, unclear if this is new pneumonia vs. old chronic lung disease. patient denies sob or new symptoms. 12/31: no changes. remains on simple mask at 6LPM. not in distress. family does not want to leave ICU and wants to continue ICU care for the remainder of the hospitalization. long discussion about needing to de-escalate level of care prior to hospital discharge. 01/07 Reconsult for Resp. distress. Patient was placed on BIPAP with 60% FIO2. ABG this morning showed some improvements in his resp acidosis with PH:7.34, CO2 72 from 82. CXR from 16/[address] chest today. 01/08 Patient was intubated this morning for worsening resp acidosis. CT chest yesterday showed pneumonia/aspiration. On Diprivan for sedation. Afebrile. 01/09 Patient is intubated and on low dose Diprivan drip. Afebrile. 01/10 Patient remains intubated. Awake, tolerated CPAP for most of day yesterday. Afebrile. 01/11 No events overnight. Awake and alert off sedation, tolerated CPAP all day yesterday. Afebrile. 01/12: Family concern regarding testicular swelling. I went over available laboratories. Will check hepatitis C genotype and PCR viral load today. We will also check C. difficile per family request. Patient tolerated CPAP yesterday for around 10 hours. Has been on CPAP since 8 AM this morning. FiO2 35%. 01/13: Afebrile. Remains on CPAP trial 16/08 at 35%. All x-rays pending. Long discussion with family at bedside and via telephone. Plan for bronchoscopy tomorrow if okay with 2 other daughters with pulmonology. 01/14: remains intubated, sedated. plan for bronch today with pulmonary at bedside. failing SBTs. 01/15: intubated and sedated. will attempt SBT today. discussion yesterday with family: if he passes SBT, will proceed with extubation, but high risk for decompensation and re-intubation. if he gets reintubated again, will need trach/ peg to continue forward and aggressive care. 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 01/16: Remains orally intubated on mechanical ventilation. ABG done today borderline. Resumed Lasix. GI started spironolactone to mobilize fluid. 01/17: Remains orally intubated on mechanical ventilation. Daily CPAP trials 01/18: Awake, alert, orally intubated on mechanical ventilation. Daily CPAP trials ongoing. Continues to have diarrhea. 01/19: Drowsy, easily arousable, orally intubated on mechanical ventilation. Daily CPAP trials with respiratory rate 28 tidal volumes 250s-300. 01/20: Awake, alert, orally intubated on mechanical ventilation at the time of my evaluation. Tolerating CPAP trials +5/+5. Respiratory rate 28-30, tidal volumes 250s-300. Discussed with Dr. Guerrier. Will proceed with extubation. Explained to family patient is high risk for intubation and that we will be using intermittent BiPAP if needed. 01/21: awake and alert. extubated yesterday. on 2.5L o2 by nc. somewhat tachypneic, but otherwise stable. BALs growing aspergillus. left pleural effusion persists on CT, but at this point, risk/benefit likely in favor of conservative management. 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 They continue to press for ongoing aggressive care and continue to state he will come home with them soon. 01/22: clinically worse today. back on BiPAP. fio2 still 35%, but very tired. family concerned about breathing: again I discussed the fact that he is deconditioned and I am concerned that he will fail after he tires out. I expressed my concern that this will keep happening and he will end up back on life-support. Family continues to intermittently refuse accuchecks and SQ insulin, but today have concerns that his blood sugar is higher than it has been and they asked his insulin be adjusted. I have increased his glycemic control and ask that the family allow us to administer the ordered insulin. 01/23: Patient had a good morning however becoming more confused and agitated this afternoon. We will place back on BiPAP. Requesting melatonin at night for insomnia. States he gets confused at night likely ICU delirium. 01/24: Intermittently on BiPAP overnight. Became agitated and confused but improved. Hemoglobin currently 10.4. BMP pending. No other acute issues ongoing. 01/25: Patient became confused overnight. Placed on BiPAP and dexmedetomidine drip. Received 2 mg morphine sulfate. Lethargic this a.m. Tolerating BiPAP however. Family request echocardiogram was performed today and a consultation Dr. Shoemaker if abnormalities from persist from 11/14 echocardiogram. 01/26: Remains on nasal cannula 2.5lit/min. OOB to chair at the time of my evaluation. Awake, alert. Subjective 01/29: Reconsult as needed severe agitation. We will start on low-dose Precedex drip. Patient received Geodon and Haldol without response. 01/30: remains agitated on dexmedetomidine drip. will add zyprexa q8h. will also send ammonia, given severe TR, may have additional hepatic encephalopathy. remains on nc o2. need to start looking for placement. 01/31: patient required intubation for worsening hypercarbic respiratory failure yesterday evening. I had a long discussion with the family regarding this: we specifically discussed goals of care for the patient. The family is now refusing to participate in a goals of care discussion until they can see the patient. Unfortunately, the family continues to interfere with our ability to effectively manage the patient when they are at bedside, and have been trespassed off the property. Without new goals of care, the best we can do is to continue the family's previously documented aggressive goals of care. Today , patient is less hypercarbic. sputum culture pending, although this does not appear to be a new infectious etiology, but likely his own debilitated deconditioned state combined with his terminal end-stage COPD. Family continues to urge for hospital transfer, but there is no medical necessity for transfer. Previously, I have called [facility] and they declined to accept the patient. Once again I have communicated with the family that unless they can find an accepting facility, we have no way of transferring him out of our facility, and that I have previously tried this, at their request. ROS unobtainable due to his mental status. Objective Vital Signs / I&O: Vital Signs 01/30/18 16:00 01/30/18 16:33 01/30/18 16:36 Temperature 37.0 C Pulse Rate 103 H 106 H Respiratory Rate 31 H 30 H Blood Pressure 166/67 H Pulse Oximetry 96 98 01/30/18 17:01 01/30/18 19:18 01/30/18 20:00 Temperature 37.1 C Pulse Rate 104 H Respiratory Rate 20 21 Blood Pressure 72/45 L Pulse Oximetry 97 97 95 01/30/18 21:49 01/31/18 00:00 01/31/18 00:50 Temperature 36.8 C Pulse Rate 106 H 107 H Respiratory Rate 20 20 20 Blood Pressure 154/67 H Pulse Oximetry 95 100 01/31/18 02:00 01/31/18 03:32 01/31/18 04:00 Temperature 36.8 C Pulse Rate 95 H 92 H 93 H Respiratory Rate 20 20 Blood Pressure 87/55 L Pulse Oximetry 100 100 01/31/18 06:00 01/31/18 07:55 01/31/18 08:00 Temperature 36.3 C L Pulse Rate 90 93 H 93 H Respiratory Rate 20 20 Blood Pressure 98/52 L Pulse Oximetry 100 100 01/31/18 10:00 01/31/18 11:22 01/31/18 12:00 Temperature 36.7 C Pulse Rate 84 80 80 Respiratory Rate 20 20 Blood Pressure 101/46 L Pulse Oximetry 100 100 01/31/18 12:50 Temperature Pulse Rate Respiratory Rate 21 Blood Pressure Pulse Oximetry 98 Intake & Output 01/30/18 01/31/18 01/31/18 19:59 06:59 18:59 Intake Total Output Total Balance Weight Intake: IV Precedex Inj 200 MCG In NS Inj 48 ML @ 0.1 MCG/KG/HR 1.64 mls/ hr IV.CONT TITRATE PRN Rx#: [id number] Oral Tube Feeding Water Bolus Amount Output: Urine Amount (Catheter) Condom Other: Date of Last Bowel Movement 01/30/18 # Bowel Movements Result Diagrams: 01/31/18 06:13 01/31/18 06:13 Objective Remarks: GENERAL: frail and cachectic elderly male, lying in bed, intubated, sedated, critically ill. HEENT: Normocephalic. Atraumatic. Positive pallor, no icterus. Mucous membranes are moist NECK: Trachea is midline. No JVD CHEST: prvc, fio2 35%. equal chest rise. barrel chested. diminished breath sounds bilaterally. CARDIOVASCULAR: Normal rate, regular rhythm. ABDOMEN: Soft, nontender, nondistended. No guarding. MUSCULOSKELETAL: Pulses 2+. significant evidence of scrotal edema. 1+ peripheral edema. No mottling NEUROLOGICAL: RASS -2. CAM+. arouses. withdraws x 4. Assessment and Plan - Assessment and Plan Plan: Assessment: 82yM with end-stage o2 dependent COPD and end-stage systemic pulmonary hypertension. long hospital course. now with recurrent hypoxic and hypercarbic respiratory failure. This is his 4th time on life support. I do not think he will survive this hospitalization which I have now conveyed to the family on multiple occasions. We now have a serious problem over appropriate medical decision-making for the patient: the family is refusing to make any medical decisions regarding his care unless they can physically see him, though now for months they have inhibited our ability to safely care for the patient, and are now not allowed to be at the hospital. We may need to get bioethics involved in assisting us, because at this point, he will require tracheostomy and PEG tube placement to move forward with his aggressive care. My medical opinion is that these procedures are futile and do not provide any overall quality of life or life advancing benefits, and come with risks. My medical opinion is that hospice care is most appropriate for this terminal 82 year old male who has two end-stage organ processes, both complicated by now two lengthy hospitalizations leading to chronic organ dysfunction and severe malnourishment and deconditioning. For now he remains critically ill and high risk for further decompensation and . In absence of new goals of care, we will remain full and aggressive care with FULL CODE, and we will do our best to honor the family's wishes until such time as they again participate in further medical decision-making. Neuro/Psych Acute encephalopathy Agitated Delirium Monitor neuro status Acetaminophen liquid 650 every 6 hours as needed fever Morphine sulfate 1-2 mg IV every 4 hours as needed pain Melatonin 5 mg qHS scheduled. fentanyl drip for goal RASS -2. zyprexa 5mg po q8h. daily sedation vacation Respiratory: Acute hypoxic and hypercarbic respiratory failure- Intubated 01/08, extubated 01/20, intubated 01/30 End-stage COPD Status post left lower lobe pneumonectomy Congestive heart failure secondary to severe lung disease Right lower lobe healthcare associated pneumonia pulmonary hypertension right ventricular dysfunction On 2.5 L oxygen by nasal cannula at home continuously Albuterol/ipratropium aerosols every 6 hours with albuterol aerosols every 2 hours as needed dyspnea, Extubated to nasal cannula on 01/20. Plan to use intermittent BiPAP as needed. patient is at high risk of reintubation. IV methylprednisolone succinate switched to prednisone PO on 01/[address] Hesham Herman Pulmonary is following- Dr. Lazcano CT chest: Postsurgical features of suspected previous left-sided lobectomy with volume loss and mediastinal shift to the left. Bulky left-sided pleural plaques with chronic appearing small to moderate sized loculated left pleural effusion. Dense airspace consolidation in the superior segment of the right lower lobe with patchy interstitial and groundglass opacities throughout the right lower lobe. Trace right-sided pleural effusion with fluid extending into the major fissure vent bundle hob elevated nebs wean fio2 for goal spo2 > 88%. Cardiovascular: Diastolic congestive heart failure secondary to pulmonary hypertension World health organization class III pulmonary hypertension Severe sepsis Mild TR Monitor HR and BP keep MAP>65mmHg Echocardiogram 10/2017 revealed Nl LVSF is normal with an estimated ejection fraction in the range of 60-65%. Normal left ventricular size. Wall thickness is normal. No regional wall motion abnormalities are present. Diffuse calcification of the aortic valve but no significant stenosis. There is mild to moderate tricuspid valve regurgitation. The estimated pulmonary arterial pressure is 76.9 mmHg with severe pulmonary hypertension. Previously on furosemide 40 mg by tube daily. Restarted Lasix 40 mg IV every 12 hourly on 01/16. Discontinued GI started spironolactone 25 mg on 01/16. Now on torsemide 10 mg twice daily As needed labetalol and Nitropaste for hypertension Per family request, 2D echocardiogram limited ordered 01/25. If any changes from previous echocardiogram. Family requests consultation family client specialist. Troponin 0.02 Renal/: History of nephrolithiasis edema Monitor renal function, I/O's, electrolytes replacement per protocol. torsemide daily FEN/GI: Severe acute protein calorie malnutrition Hep C IgG positive. Genotype negative. PCR viral load negative. Hypernatremia Diarrhea OG tube and restart tube feeds. Lansoprazole for GI prophylaxis Docusate sodium/senna 1 tablet twice daily for bowel regimen GI is following US abdomen: Limited exam due to obscuration by bowel gas.Simple left renal cyst. small ascites in the right upper quadrant. Positive HepC IgG hepatitis C genotype and PCR viral load negative Xifaxan 550 twice daily for diarrhea along with bismuth 15 mL 3 times daily ID: Healthcare associated pneumonia Severe sepsis- present on admission Normocytic anemia Thrombocytopenia Aspergillus pneumonia Voriconazole IV started on 01/16 per ID-changed to micafungin on 01/19 as family concerned that it was causing lethargy. BAL cultures growing Aspergillus, mold Follow up on sputum 01/08 normal resp vaishnavi Sputum culture 12/20-shea resp vaishnavi Blood cultures 12/19 no growth Urine UA with urine culture 12/20-NGTD Negative Legionella and pneumococcal urinary antigens Endocrine: Hyperglycemia of critical illness --Currently on insulin detemir 10 units at night - decreased SSI to low-dose AC/at bedtime Heme: Normocytic anemia Thrombocytopenia Monitor CBC, Hep PLT ab negative MSK:: History of left IT nailing 11/14 Vitamin D deficiency PT evaluate and treat Prophylaxis: GI Prophylaxis Lansoprazole DVT Prophylaxis -- SCDs - Enoxaparin held for anemia, thrombocytopenia and Hemoccult positive Lines: Peripheral IVs.
--- NOTE | 2018-01-31 16:46 | P.DIET ---
Nutritional Evaluation Type of nutrition evaluation: follow-up Nutrition consult regarding: Diet Evaluation Nutrition screening: [facility] (Wound) Screening comments: 01/31 TF review, F/U [facility] wound Subjective Barriers to Nutrition: Swallowing problem Oral Diet Tolerance Assessment Indicates: Edentulous Subjective Comments: Pt does not wear dentures at home Objective - Diagnosis Sepsis, PNA, COPD Exacerbation, CHF - Objective % IBW: 116 (IBW = 118#) Body Weight Used for Calculations: Actual (62 kg) Energy Needs - Lower Range (kCal/kg): 25 Energy Needs - Upper Range (kCal/kg): 30 Lower Limit kCal/kg (kCals): 1,550 Upper Limit kCal/kg (kCals): 1,860 Lower Limit Protein Factor (Grams per Kg): 1.0 Upper Limit Protein Factor (Grams per Kg): 1.5 Lower Protein Needs (Protein): 62 Upper Protein Needs (Protein): 93 Dietitian Reviewed in Medical Record: Curent medications, Intake & Output, Labs , Medical history, Tube feeding Diet Order: 2200 ADA, pureed, honey thick Oral Diet Intake Amount: Good 75-90% Speech Therapy Recommendations: Yes (pureed, honey thick) Wound Care Note: 01/07/18 WOCN note: bilateral buttock-stage 2 pressure injury Objective Comments: PMH includes: COPD, DM, Kidney Stones, Pneumothorax reintubated on 01/07 Labs: BUN 34, POC glucose 258, Ca+ 8.3 Meds Include: Xifaxin, Pepto-Bismol, Lomotil +BM, pt w/diarrhea Assessment Assessment: Pt is currently intubated. RD agree with Glucerna 1.5 TF @ 45mL/hr to provide 1620 kcal, 89g of protein, and 820mL of free water to meet pts nutritional needs. CBW = 56.5, wt loss of 5.5 kg since 01/15/18 (62kg). Wt changes noted, labs reviewed. Dietitian following. Additional recs depending on medical course. Recommendations: 1. Continue Glucerna 1.5 TF @ 45mL/hr to meet pts nutritional needs 2. Continue 1-pkt Patrick BID to aid in wound healing 3. Additional recs depending on medical course. 4. Dietitian following Dietitian to Monitor: Lab values, Glucose level, Intake & Output, Diet tolerance , Weight change, PO Intake, Wound/skin status, Medical course
--- NOTE | 2018-01-31 19:07 | P.PNID ---
Subjective Remarks: reintubated for hypercapnic resp failure Apparently founfd with MS change again PCO2 80s On IV sterroids WBC up to 15 K Antibiotics: z micafungin Allergies/Adverse Reactions: Allergies No Known Allergies Allergy (Verified 12/19/17 21:39) Objective Vital Signs 01/30/18 21:49 01/31/18 00:00 01/31/18 00:50 Temperature 98.2 F Pulse Rate 106 H 107 H Respiratory Rate 20 20 20 Blood Pressure 154/67 H Pulse Oximetry 95 100 01/31/18 02:00 01/31/18 03:32 01/31/18 04:00 Temperature 98.3 F Pulse Rate 95 H 92 H 93 H Respiratory Rate 20 20 Blood Pressure 87/55 L Pulse Oximetry 100 100 01/31/18 06:00 01/31/18 07:55 01/31/18 08:00 Temperature 97.4 F L Pulse Rate 90 93 H 93 H Respiratory Rate 20 20 Blood Pressure 98/52 L Pulse Oximetry 100 100 01/31/18 10:00 01/31/18 11:22 01/31/18 12:00 Temperature 98.0 F Pulse Rate 84 80 80 Respiratory Rate 20 20 Blood Pressure 101/46 L Pulse Oximetry 100 100 01/31/18 12:50 01/31/18 14:00 01/31/18 15:21 Temperature Pulse Rate 95 H 89 Respiratory Rate 21 20 Blood Pressure Pulse Oximetry 98 01/31/18 16:00 01/31/18 18:00 Temperature 97.9 F Pulse Rate 88 87 Respiratory Rate 21 Blood Pressure 132/84 Pulse Oximetry 100 Intake & Output 01/31/18 01/31/18 02/01/18 06:59 18:59 06:59 Intake Total 220 / 220 Output Total 300 / 300 Balance -80 / -80 Weight Intake: Tube Feeding 100 / 100 Water Bolus Amount 120 / 120 Output: Urine Amount (Catheter) 300 / 300 Condom 300 / 300 Other: Date of Last Bowel Movement 01/31/18 # Bowel Movements 1 01/31/18 12:55 Sputum - Endotracheal Gram Stain - Pending 01/31/18 12:55 Sputum - Endotracheal Sputum Culture - Pending Lab - Hematology Results 01/30/18 01/31/18 05:26 06:13 WBC 12.4 H 15.7 H RBC 3.19 L 3.12 L Hgb 9.5 L 9.5 L Hct 28.2 L 27.6 L MCV 88.6 88.4 MCH 29.9 30.5 MCHC 33.7 34.5 RDW 15.7 15.5 Plt Count 140 L 163 MPV 8.1 8.4 Neut % (Auto) 88.5 H Lymph % (Auto) 5.5 L [place] % (Auto) 5.3 Eos % (Auto) 0.3 Baso % (Auto) 0.4 Neut # (Auto) 11.0 H Lymph # (Auto) 0.7 L [place] # (Auto) 0.7 Eos # (Auto) 0.0 Baso # (Auto) 0.0 WBC Differential . Differential Comment Auto diff final Lab - Chemistry Results 01/30/18 01/30/18 01/30/18 03:56 05:26 05:26 Sodium 139 Potassium 3.7 Chloride 100 Carbon Dioxide 33.1 H Anion Gap 6 BUN 23 H Creatinine 0.50 L Estimated GFR Greater than 89 POC Glucose 96 Random Glucose 77 Calcium 8.0 L Phosphorus Magnesium Total Bilirubin 0.8 AST 34 ALT 62 Alkaline Phosphatase 234 H Ammonia B-Natriuretic Peptide 91 Total Protein 5.9 L Albumin 2.3 L Prealbumin 01/30/18 01/30/18 01/30/18 08:25 08:54 09:21 Sodium Potassium Chloride Carbon Dioxide Anion Gap BUN Creatinine Estimated GFR POC Glucose 70 72 79 Random Glucose Calcium Phosphorus Magnesium Total Bilirubin AST ALT Alkaline Phosphatase Ammonia B-Natriuretic Peptide Total Protein Albumin Prealbumin 01/30/18 01/30/18 01/30/18 09:59 11:51 17:28 Sodium Potassium Chloride Carbon Dioxide Anion Gap BUN Creatinine Estimated GFR POC Glucose 128 H 141 H Random Glucose Calcium Phosphorus Magnesium Total Bilirubin AST ALT Alkaline Phosphatase Ammonia Less than 10 L B-Natriuretic Peptide Total Protein Albumin Prealbumin 01/30/18 01/31/18 01/31/18 22:30 06:13 07:54 Sodium 141 Potassium 3.9 Chloride 102 Carbon Dioxide 29.7 Anion Gap 9 BUN 51 H Creatinine 0.85 Estimated GFR 87 L POC Glucose 129 H 87 Random Glucose 86 Calcium 8.1 L Phosphorus 4.0 Magnesium 1.9 Total Bilirubin 0.8 AST 30 ALT 52 Alkaline Phosphatase 228 H Ammonia B-Natriuretic Peptide Total Protein 5.7 L Albumin 2.1 L Prealbumin 12 L 01/31/18 01/31/18 12:05 16:33 Sodium Potassium Chloride Carbon Dioxide Anion Gap BUN Creatinine Estimated GFR POC Glucose 77 95 Random Glucose Calcium Phosphorus Magnesium Total Bilirubin AST ALT Alkaline Phosphatase Ammonia B-Natriuretic Peptide Total Protein Albumin Prealbumin Imaging: ITS Impressions Abdomen Ultrasound 01/09/18 00:00 CONCLUSION: 1. Limited examination due to obscuration by bowel gas. 2. Simple left renal cyst. 3. Moderate amount of ascites in the right upper quadrant. Abdomen/Pelvis CT 01/13/18 00:00 CONCLUSION: 1. Patchy airspace disease right lung base and chronic loculated left pleural effusion not significantly changed since January 07. 2. Mild ascites with liver cirrhosis. 3. NG tip in stomach. Previous cholecystectomy. No bowel obstruction. 4. Multiple subacute lower right rib fractures. Venous Doppler Study 01/13/18 00:00 CONCLUSION: 1. The study is negative for lower extremity deep venous thrombosis. Abdomen X-Ray 01/15/18 00:00 CONCLUSION: Enteric tube placement as above. Chest CT 01/20/18 17:52 CONCLUSION: 1. Persistent areas of increased density in the subpleural region at the right apex and in the posterior right lower lung. These are unchanged from the prior exam. These could represent areas of pneumonia. The chronicity of these densities is not known. There is some cavitary change in the lateral right lower lung. All these findings are unchanged. Neoplasm cannot be excluded. These should be followed to complete resolution. If these areas persists, but can be followed up with a PET FDG study. 2. Volume loss in the left chest with increased density in the left perihilar region. There is bronchiectasis with material within the bronchi at the left lower lung. 3. Moderate left pleural effusion with thickening of the pleura and calcification of the visceral pleura. This appearance is unchanged. 4. Suspected cirrhosis and splenomegaly seen in the upper abdomen. There is ascites seen in the upper abdomen. Chest X-Ray 01/30/18 19:30 CONCLUSION: 1. Patient is now intubated. The endotracheal tube tip is close to the [place] and recommend pulling it back 1 to 2 cm. 2. Mild patchy parenchymal consolidation of both lungs. 3. Chronic apical pleural thickening on the right and diffuse pleural thickening with chronic effusion and volume loss on the left. Physical Exam: GENERAL: sedated On vent SKIN: Warm and dry. NO rash EYES: Pupils equal and round. No scleral icterus. No injection or drainage. ENT: No nasal bleeding or discharge. Mucous membranes pink and moist. NECK: Trachea midline. CARDIOVASCULAR: Regular rate and rhythm. RESPIRATORY: . few scattered rhonchi to auscultation. Breath sounds very diminished bilaterally. GASTROINTESTINAL: Abdomen soft, mildly tender, mildly distended MUSCULOSKELETAL: Extremities without clubbing, cyanosis, or edema. No obvious deformities. 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
[2018-01-31] MEDS: Micafungin Inj 150 MG in Sodium Chlor 0.9% Inj 100 ML IV.SIG SCH (20:16)
[2018-01-31] MEDS: Melatonin 5 MG Tablet PO SCH (20:18)
[2018-01-31] MEDS: Insulin Detemir Inj 1,000 UNIT/10 ML Vial SQ SCH (20:18)
[2018-02-01] MEDS: Oral Hygiene Kit OROPHARYNG SCH ×4 (01:11→15:40)
[2018-02-01 05:16] LABS: Hematocrit 26.4 % (39.0-51.0); Hemoglobin 8.7 gm/dL (13.0-17.0); Mean Corpuscular HGB Conc 32.7 % (32.0-36.0); Mean Corpuscular Hemoglobin 29.5 pg (27.0-34.0); Mean Corpuscular Volume 90.2 fL (80.0-100.0); Mean Platelet Volume 8.5 fL (7.0-11.0); Platelet Count 152 th/mm3 (150-450); Red Blood Count 2.93 mil/mm3 (4.50-5.90); Red Cell Distribution Width 16.3 % (11.6-17.2); White Blood Count 12.9 th/mm3 (4.0-11.0)
[2018-02-01 05:47] LABS: Alanine Aminotransferase 46 U/L (12-78); Albumin 1.9 g/dL (3.4-5.0); Alkaline Phosphatase 246 U/L (45-117); Anion Gap 11 meq/L (5-15); Aspartate Aminotransferase 29 U/L (15-37); Blood Urea Nitrogen 80 mg/dL (7-18); Calcium 8.1 mg/dL (8.5-10.1); Carbon Dioxide 28.7 meq/L (21.0-32.0); Chloride 100 meq/L (98-107); Glomerular Filtration Rate 64 mL/min (>89); Glucose,Random 259 mg/dL (74-106); Magnesium 2.3 mg/dL (1.5-2.5); Phosphorus 3.9 mg/dL (2.5-4.9); Potassium 4.1 meq/L (3.5-5.1); Sodium 140 meq/L (136-145); Total Protein 5.6 g/dL (6.4-8.2)
[2018-02-01] MEDS: Insulin NovoLIN Regular Correctional Sugar Inj SQ SCH ×3 (08:07→17:35)
[2018-02-01] MEDS: Chlorhexidine 0.12% Oral Kit 15 ML UDC OROPHARYNG SCH (08:07)
[2018-02-01] MEDS: Lactobacillus Acidophilus/L. Spores Tablet PO SCH ×3 (08:07→17:27)
[2018-02-01] MEDS: rifAXIMin 550 MG Tablet PO SCH (08:07)
[2018-02-01] MEDS: MethylPREDNISolone Sod Succinate Inj 40 MG/ML Vial IV.PUSH SCH (08:08)
[2018-02-01] MEDS: Budesonide-Formoterol 160/4.5 MCG 6 GM Inhaler INH SCH (08:08)
[2018-02-01] MEDS: Carboxymethylcellulose 0.5% Opth Drops 15 ML Bottle EACH EYE SCH (08:09)
[2018-02-01] MEDS: Bismuth Subsalicylate Susp 240 ML Bottle NG/OG SCH ×3 (08:09→17:29)
--- NOTE | 2018-02-01 09:48 | P.PNCC ---
Subjective Subjective Remarks/Hospital Course: 82-year-old male with past medical history of COPD and CHF presents for an evaluation of shortness of breath and hypoxemia worsening over past few days. The nebulizer treatments helped initially however today there were not helpful. EMS reports on scene the O2 sat was in the 80s. He received high flow oxygen and nebulized albuterol in route here. His blood pressure initially in the emergency department was 200/100 however trended down to about 160/90. BiPAP was started in the emergency department with improvement in his O2 sat that has trended towards the high 90s with 100% FiO2 on BiPAP. Shortly after transfer to ICU the patient continues to to be more hypoxemic and restless requiring endotracheal intubation and mechanical ventilation. 12/20: intubated and sedated. still hypercarbic with settx-fa-vodthlp respiratory acidosis. family unhappy that patient was intubated: they insisted last night on being a Full Code, but apparently the daughter required that she be notified of exactly what SpO2 the patient was at, and it had to reach a certain low level before she would be ok with intubation. Per overnight records , patient presented with severe respiratory distress, and family reports that EMS stated patient "wouldn't make it all the way to [facility]" due to his pulmonary instability. This morning, hypoxia is somewhat improved. remains on broad spectrum antibiotics. I explained to family that this is likely a new pneumonia causing respiratory failure. I also explained that after recent hip fracture and recent prolonged hospitalization, his baseline end-stage lung disease and NYHA Class IV symptoms are likely to worsen, and this may be worsening of his overall end-stage disease processes. Family continues to state that our facility caused his lung failure during the prior hospitalization. They are also concerned about his poor peripheral perfusion and oliguria, which concerns me also: I explained that his heart failure could not tolerate significant amount of iv fluids, and we have already given him 1500mL over the last 12 hours, but they have insisted on additional iv fluids. I explained he had severe sepsis and the mortality associated with this. Daughter continues to remind me that her father "is coming home with her and getting better" as she has stated multiple times in the past. 12/21: no improvements. remains intubated. clinically becoming volume overloaded - will be forced to start diuresis. 12/22: mental status slightly improved. still failing weaning attempts. 12/23: Afebrile. Currently on PSV trial 15/7 at 45%. Discussed with and daughter at bedside. Chest x-ray revealed ET tube at [place]. Retracted 1 cm. Tolerating tube feeds with family requested 40 cc an hour. 12/24: Afebrile. Currently CPAP trial FiO2 at 45%. Tolerating tube feeds if family requested 40 cc an hour. Receiving morphine 1-2 mg every 4 hours as needed pain. 12/25 No events overnight remains intubated off sedation. Tolerated CPAP for several hrs yesterday. Afebrile. 12/26 No events overnight. Patient tolerated CPAP for most of day yesterday. Awake and alert follows commands, on no sedation. 12/27 Patient was extubated yesterday on 4L oxygen. Awake. Afebrile. 12/28 No events overnight. Remains on 4L oxygen. Awake and alert. 12/30: RECONSULT NOTE: reconsulted as rapid response for hypoxia. per the family , patient had desaturation episode to the 60s, placed on NRB. family insisted on transfer back to ICU. when I saw patient on arrival to ICU, patient spo2 99% on NRB. pao2 on NRB was 150. patient is well-known to me with baseline spo2 82- 86% on 5L o2 by NC at home. family states he has another pneumonia. on my review of CXR and lab evidence, unclear if this is new pneumonia vs. old chronic lung disease. patient denies sob or new symptoms. 12/31: no changes. remains on simple mask at 6LPM. not in distress. family does not want to leave ICU and wants to continue ICU care for the remainder of the hospitalization. long discussion about needing to de-escalate level of care prior to hospital discharge. 01/07 Reconsult for Resp. distress. Patient was placed on BIPAP with 60% FIO2. ABG this morning showed some improvements in his resp acidosis with PH:7.34, CO2 72 from 82. CXR from 16/[address] chest today. 01/08 Patient was intubated this morning for worsening resp acidosis. CT chest yesterday showed pneumonia/aspiration. On Diprivan for sedation. Afebrile. 01/09 Patient is intubated and on low dose Diprivan drip. Afebrile. 01/10 Patient remains intubated. Awake, tolerated CPAP for most of day yesterday. Afebrile. 01/11 No events overnight. Awake and alert off sedation, tolerated CPAP all day yesterday. Afebrile. 01/12: Family concern regarding testicular swelling. I went over available laboratories. Will check hepatitis C genotype and PCR viral load today. We will also check C. difficile per family request. Patient tolerated CPAP yesterday for around 10 hours. Has been on CPAP since 8 AM this morning. FiO2 35%. 01/13: Afebrile. Remains on CPAP trial 16/08 at 35%. All x-rays pending. Long discussion with family at bedside and via telephone. Plan for bronchoscopy tomorrow if okay with 2 other daughters with pulmonology. 01/14: remains intubated, sedated. plan for bronch today with pulmonary at bedside. failing SBTs. 01/15: intubated and sedated. will attempt SBT today. discussion yesterday with family: if he passes SBT, will proceed with extubation, but high risk for decompensation and re-intubation. if he gets reintubated again, will need trach/ peg to continue forward and aggressive care. 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 01/16: Remains orally intubated on mechanical ventilation. ABG done today borderline. Resumed Lasix. GI started spironolactone to mobilize fluid. 01/17: Remains orally intubated on mechanical ventilation. Daily CPAP trials 01/18: Awake, alert, orally intubated on mechanical ventilation. Daily CPAP trials ongoing. Continues to have diarrhea. 01/19: Drowsy, easily arousable, orally intubated on mechanical ventilation. Daily CPAP trials with respiratory rate 28 tidal volumes 250s-300. 01/20: Awake, alert, orally intubated on mechanical ventilation at the time of my evaluation. Tolerating CPAP trials +5/+5. Respiratory rate 28-30, tidal volumes 250s-300. Discussed with Dr. Guerrier. Will proceed with extubation. Explained to family patient is high risk for intubation and that we will be using intermittent BiPAP if needed. 01/21: awake and alert. extubated yesterday. on 2.5L o2 by nc. somewhat tachypneic, but otherwise stable. BALs growing aspergillus. left pleural effusion persists on CT, but at this point, risk/benefit likely in favor of conservative management. 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 They continue to press for ongoing aggressive care and continue to state he will come home with them soon. 01/22: clinically worse today. back on BiPAP. fio2 still 35%, but very tired. family concerned about breathing: again I discussed the fact that he is deconditioned and I am concerned that he will fail after he tires out. I expressed my concern that this will keep happening and he will end up back on life-support. Family continues to intermittently refuse accuchecks and SQ insulin, but today have concerns that his blood sugar is higher than it has been and they asked his insulin be adjusted. I have increased his glycemic control and ask that the family allow us to administer the ordered insulin. 01/23: Patient had a good morning however becoming more confused and agitated this afternoon. We will place back on BiPAP. Requesting melatonin at night for insomnia. States he gets confused at night likely ICU delirium. 01/24: Intermittently on BiPAP overnight. Became agitated and confused but improved. Hemoglobin currently 10.4. BMP pending. No other acute issues ongoing. 01/25: Patient became confused overnight. Placed on BiPAP and dexmedetomidine drip. Received 2 mg morphine sulfate. Lethargic this a.m. Tolerating BiPAP however. Family request echocardiogram was performed today and a consultation Dr. Shoemaker if abnormalities from persist from 11/14 echocardiogram. 01/26: Remains on nasal cannula 2.5lit/min. OOB to chair at the time of my evaluation. Awake, alert. Subjective 01/29: Reconsult as needed severe agitation. We will start on low-dose Precedex drip. Patient received Geodon and Haldol without response. 01/30: remains agitated on dexmedetomidine drip. will add zyprexa q8h. will also send ammonia, given severe TR, may have additional hepatic encephalopathy. remains on nc o2. need to start looking for placement. 01/31: patient required intubation for worsening hypercarbic respiratory failure yesterday evening. I had a long discussion with the family regarding this: we specifically discussed goals of care for the patient. The family is now refusing to participate in a goals of care discussion until they can see the patient. Unfortunately, the family continues to interfere with our ability to effectively manage the patient when they are at bedside, and have been trespassed off the property. Without new goals of care, the best we can do is to continue the family's previously documented aggressive goals of care. Today , patient is less hypercarbic. sputum culture pending, although this does not appear to be a new infectious etiology, but likely his own debilitated deconditioned state combined with his terminal end-stage COPD. Family continues to urge for hospital transfer, but there is no medical necessity for transfer. Previously, I have called [facility] and they declined to accept the patient. Once again I have communicated with the family that unless they can find an accepting facility, we have no way of transferring him out of our facility, and that I have previously tried this, at their request. ROS unobtainable due to his mental status. 02/01: [facility]. Tolerating tube feeds. Objective Vital Signs / I&O: Vital Signs 01/31/18 10:00 01/31/18 11:22 01/31/18 12:00 Temperature 98.0 F Pulse Rate 84 80 80 Respiratory Rate 20 20 Blood Pressure 101/46 L Pulse Oximetry 100 100 01/31/18 12:50 01/31/18 14:00 01/31/18 15:21 Temperature Pulse Rate 95 H 89 Respiratory Rate 21 20 Blood Pressure Pulse Oximetry 98 01/31/18 16:00 01/31/18 18:00 01/31/18 19:45 Temperature 97.9 F Pulse Rate 88 87 Respiratory Rate 21 20 Blood Pressure 132/84 Pulse Oximetry 100 98 01/31/18 19:58 01/31/18 20:00 01/31/18 22:00 Temperature 98.4 F Pulse Rate 96 H 94 H 101 H Respiratory Rate 20 20 Blood Pressure 114/63 Pulse Oximetry 97 01/31/18 22:18 02/01/18 00:00 02/01/18 01:20 Temperature 97.9 F Pulse Rate 82 Respiratory Rate 24 20 20 Blood Pressure 105/52 L Pulse Oximetry 98 98 100 02/01/18 02:00 02/01/18 04:00 02/01/18 04:10 Temperature 98.8 F Pulse Rate 77 78 75 Respiratory Rate 20 20 Blood Pressure 103/49 L Pulse Oximetry 99 02/01/18 05:43 02/01/18 06:00 02/01/18 07:00 Temperature Pulse Rate 98 H 74 Respiratory Rate 20 20 Blood Pressure Pulse Oximetry 99 02/01/18 08:00 Temperature Pulse Rate Respiratory Rate 20 Blood Pressure Pulse Oximetry 99 Intake & Output 01/31/18 02/01/18 02/01/18 18:59 06:59 18:59 Intake Total 220 / 220 515 / 515 Output Total 300 / 300 300 / 300 Balance -80 / -80 215 / 215 Weight 59.5 kg Intake: Tube Feeding 100 / 100 415 / 415 Water Bolus Amount 120 / 120 100 / 100 Output: Urine Amount (Catheter) 300 / 300 300 / 300 Condom 300 / 300 300 / 300 Other: Date of Last Bowel Movement 01/31/18 02/01/18 # Bowel Movements 1 2 Result Diagrams: 02/01/18 03:50 02/01/18 03:50 Objective Remarks: GENERAL: frail and cachectic elderly male, lying in bed, intubated, sedated, critically ill. HEENT: Normocephalic. Atraumatic. Positive pallor, no icterus. Mucous membranes are moist NECK: Trachea is midline. No JVD CHEST: prvc, fio2 35%. equal chest rise. barrel chested. diminished breath sounds bilaterally. CARDIOVASCULAR: Normal rate, regular rhythm. ABDOMEN: Soft, nontender, nondistended. No guarding. MUSCULOSKELETAL: Pulses 2+. significant evidence of scrotal edema. 1+ peripheral edema. No mottling NEUROLOGICAL: RASS -2. CAM+. arouses. withdraws x 4. Assessment and Plan - Assessment and Plan Plan: Assessment: 82yM with end-stage o2 dependent COPD and end-stage systemic pulmonary hypertension. long hospital course. now with recurrent hypoxic and hypercarbic respiratory failure. This is his 4th time on life support. Per Dr. Sorto's discussion : I do not think he will survive this hospitalization which I have now conveyed to the family on multiple occasions. We now have a serious problem over appropriate medical decision-making for the patient: the family is refusing to make any medical decisions regarding his care unless they can physically see him, though now for months they have inhibited our ability to safely care for the patient, and are now not allowed to be at the hospital. We may need to get bioethics involved in assisting us, because at this point, he will require tracheostomy and PEG tube placement to move forward with his aggressive care. My medical opinion is that these procedures are futile and do not provide any overall quality of life or life advancing benefits, and come with risks. My medical opinion is that hospice care is most appropriate for this terminal 82 year old male who has two end- stage organ processes, both complicated by now two lengthy hospitalizations leading to chronic organ dysfunction and severe malnourishment and deconditioning. For now he remains critically ill and high risk for further decompensation and . In absence of new goals of care, we will remain full and aggressive care with FULL CODE, and we will do our best to honor the family' s wishes until such time as they again participate in further medical decision- making. Neuro/Psych Acute encephalopathy Agitated Delirium Monitor neuro status Acetaminophen liquid 650 every 6 hours as needed fever Morphine sulfate 1-2 mg IV every 4 hours as needed pain Melatonin 5 mg qHS scheduled. fentanyl drip for goal RASS -2. zyprexa 5mg po q8h. daily sedation vacation Respiratory: Acute hypoxic and hypercarbic respiratory failure- Intubated 01/08, extubated 01/20, intubated 01/30 End-stage COPD Status post left lower lobe pneumonectomy Congestive heart failure secondary to severe lung disease Right lower lobe healthcare associated pneumonia pulmonary hypertension right ventricular dysfunction On 2.5 L oxygen by nasal cannula at home continuously Albuterol/ipratropium aerosols every 6 hours with albuterol aerosols every 2 hours as needed dyspnea, Extubated to nasal cannula on 01/20. Intermittent BiPAP as needed. patient is at high risk of reintubation. Reintubated 01/30 IV Solumedrol Pulmonary is following- Dr. Lazcano CT chest: Postsurgical features of suspected previous left-sided lobectomy with volume loss and mediastinal shift to the left. Bulky left-sided pleural plaques with chronic appearing small to moderate sized loculated left pleural effusion. Dense airspace consolidation in the superior segment of the right lower lobe with patchy interstitial and groundglass opacities throughout the right lower lobe. Trace right-sided pleural effusion with fluid extending into the major fissure vent bundle hob elevated nebs wean fio2 for goal spo2 > 88%. Cardiovascular: Diastolic congestive heart failure secondary to pulmonary hypertension World health organization class III pulmonary hypertension Severe sepsis Mild TR Monitor HR and BP keep MAP>65mmHg Echocardiogram 10/2017 revealed Nl LVSF is normal with an estimated ejection fraction in the range of 60-65%. Normal left ventricular size. Wall thickness is normal. No regional wall motion abnormalities are present. Diffuse calcification of the aortic valve but no significant stenosis. There is mild to moderate tricuspid valve regurgitation. The estimated pulmonary arterial pressure is 76.9 mmHg with severe pulmonary hypertension. Previously on furosemide 40 mg by tube daily. Restarted Lasix 40 mg IV every 12 hourly on 01/16. Discontinued GI started spironolactone 25 mg on 01/16. Now on torsemide 10 mg twice daily As needed labetalol and Nitropaste for hypertension Per family request, 2D echocardiogram limited ordered 01/25. If any changes from previous echocardiogram. 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 Troponin 0.02 Renal/: History of nephrolithiasis edema Monitor renal function, I/O's, electrolytes replacement per protocol. torsemide daily FEN/GI: Severe acute protein calorie malnutrition Hep C IgG positive. Genotype negative. PCR viral load negative. Hypernatremia Diarrhea OG tube in place, tolerating tube feeds. Lansoprazole for GI prophylaxis Docusate sodium/senna 1 tablet twice daily for bowel regimen GI is following US abdomen: Limited exam due to obscuration by bowel gas.Simple left renal cyst. small ascites in the right upper quadrant. Positive HepC IgG hepatitis C genotype and PCR viral load negative Xifaxan 550 twice daily for diarrhea along with bismuth 15 mL 3 times daily ID: Healthcare associated pneumonia Severe sepsis- present on admission Normocytic anemia Thrombocytopenia Aspergillus pneumonia Voriconazole IV started on 01/16 per ID-changed to micafungin on 01/19 as family concerned that it was causing lethargy. BAL cultures growing Aspergillus, mold Follow up on sputum 01/08 normal resp vaishnavi Sputum culture 12/20-shea resp vaishnavi Blood cultures 12/19 no growth Urine UA with urine culture 12/20-NGTD Negative Legionella and pneumococcal urinary antigens Endocrine: Hyperglycemia of critical illness --Currently on insulin detemir 10 units at night - decreased SSI to low-dose AC/at bedtime Heme: Normocytic anemia Thrombocytopenia Monitor CBC, Hep PLT ab negative MSK:: History of left IT nailing 11/14 Vitamin D deficiency PT evaluate and treat Prophylaxis: GI Prophylaxis Lansoprazole DVT Prophylaxis -- SCDs - Enoxaparin held for anemia, thrombocytopenia and Hemoccult positive Lines: Peripheral IVs. Palliative care following. Ethics consult due to concerns regarding decision making including decision for trach/ PEG placement due to multiple reintubations this admission.
--- NOTE | 2018-02-01 11:54 | P.PN ---
Subjective Interval history: he is back on the vent. FIO2 at 35 %. Tolerates feeds. Physical Exam Vital signs: Vital Signs 01/31/18 12:00 01/31/18 12:50 01/31/18 14:00 Temperature 98.0 F Pulse Rate 80 95 H Respiratory Rate 20 21 Blood Pressure 101/46 L Pulse Oximetry 100 98 01/31/18 15:21 01/31/18 16:00 01/31/18 18:00 Temperature 97.9 F Pulse Rate 89 88 87 Respiratory Rate 20 21 Blood Pressure 132/84 Pulse Oximetry 100 01/31/18 19:45 01/31/18 19:58 01/31/18 20:00 Temperature 98.4 F Pulse Rate 96 H 94 H Respiratory Rate 20 20 20 Blood Pressure 114/63 Pulse Oximetry 98 97 01/31/18 22:00 01/31/18 22:18 02/01/18 00:00 Temperature 97.9 F Pulse Rate 101 H 82 Respiratory Rate 24 20 Blood Pressure 105/52 L Pulse Oximetry 98 98 02/01/18 01:20 02/01/18 02:00 02/01/18 04:00 Temperature 98.8 F Pulse Rate 77 78 Respiratory Rate 20 20 Blood Pressure 103/49 L Pulse Oximetry 100 99 02/01/18 04:10 02/01/18 05:43 02/01/18 06:00 Temperature Pulse Rate 75 98 H Respiratory Rate 20 20 Blood Pressure Pulse Oximetry 99 02/01/18 07:00 02/01/18 08:00 02/01/18 10:00 Temperature 97.4 F L Pulse Rate 74 77 83 Respiratory Rate 20 20 Blood Pressure 104/46 L Pulse Oximetry 98 02/01/18 11:31 Temperature Pulse Rate Respiratory Rate 20 Blood Pressure Pulse Oximetry 100 Intake & Output 01/31/18 02/01/18 02/01/18 18:59 06:59 18:59 Intake Total 220 / 220 515 / 515 Output Total 300 / 300 300 / 300 Balance -80 / -80 215 / 215 Weight 59.5 kg Intake: Tube Feeding 100 / 100 415 / 415 Water Bolus Amount 120 / 120 100 / 100 Output: Urine Amount (Catheter) 300 / 300 300 / 300 Condom 300 / 300 300 / 300 Other: Date of Last Bowel Movement 01/31/18 02/01/18 02/01/18 # Bowel Movements 1 2 Narrative: GENERAL: Alert, on the ventilator . SKIN: Warm and dry. HEAD: Normocephalic. EYES: No scleral icterus. No injection or drainage. NECK: Supple, trachea midline. No JVD or lymphadenopathy. CARDIOVASCULAR: Regular rate and rhythm without murmurs, gallops, or rubs. RESPIRATORY: Occ Wheeze in upper chest. diminished breath sounds on the left side. No accessory muscle use. GASTROINTESTINAL: Abdomen soft, non-tender, nondistended. MUSCULOSKELETAL: No cyanosis, or edema. No Focal neuro deficit. BACK: Nontender without obvious deformity. No CVA tenderness. - Urinary Catheter Management Straight Cath placed during this visit: yes, but has since been removed by the nurse Reason for continuing: Not indwelling catheter Insertion date: 12/23/17 Insertion time: 01:00 Removal date: 12/22/17 Removal time: 01:00 Condom Cath placed during this visit: no Results - Labs CBC & Chem 7: 02/01/18 03:50 02/01/18 03:50 Laboratory Results - last 24 hr 01/30/18 01/31/18 01/31/18 18:10 12:05 16:33 WBC RBC Hgb Hct MCV MCH MCHC RDW Plt Count MPV Puncture Site Cancelled Patient Temperature Cancelled O2 Saturation Cancelled ABG pH Cancelled ABG pCO2 Cancelled ABG pO2 Cancelled ABG HCO3 Cancelled ABG O2 Content Cancelled ABG Base Excess Cancelled ABG Methemoglobin Cancelled Krishna Test Cancelled Hemoglobin Cancelled Carboxyhemoglobin Cancelled O2 Delivery Device Cancelled Liter Flow Cancelled Vent Setting Cancelled Inspired O2 Cancelled Critical Value Cancelled Sodium Potassium Chloride Carbon Dioxide Anion Gap BUN Creatinine Estimated GFR POC Glucose 77 95 Random Glucose Calcium Phosphorus Magnesium Total Bilirubin AST ALT Alkaline Phosphatase Total Protein Albumin Stl C.difficile DNA Amp St C. diff Tox Epid 027 01/31/18 01/31/18 02/01/18 19:59 23:00 03:50 WBC 12.9 H RBC 2.93 L Hgb 8.7 L Hct 26.4 L MCV 90.2 MCH 29.5 MCHC 32.7 RDW 16.3 Plt Count 152 MPV 8.5 Puncture Site Patient Temperature O2 Saturation ABG pH ABG pCO2 ABG pO2 ABG HCO3 ABG O2 Content ABG Base Excess ABG Methemoglobin Krishna Test Hemoglobin Carboxyhemoglobin O2 Delivery Device Liter Flow Vent Setting Inspired O2 Critical Value Sodium Potassium Chloride Carbon Dioxide Anion Gap BUN Creatinine Estimated GFR POC Glucose 154 H Random Glucose Calcium Phosphorus Magnesium Total Bilirubin AST ALT Alkaline Phosphatase Total Protein Albumin Stl C.difficile DNA Amp Negative St C. diff Tox Epid 027 Negative 02/01/18 02/01/18 02/01/18 03:50 08:02 08:03 WBC RBC Hgb Hct MCV MCH MCHC RDW Plt Count MPV Puncture Site Patient Temperature O2 Saturation ABG pH ABG pCO2 ABG pO2 ABG HCO3 ABG O2 Content ABG Base Excess ABG Methemoglobin Krishna Test Hemoglobin Carboxyhemoglobin O2 Delivery Device Liter Flow Vent Setting Inspired O2 Critical Value Sodium 140 Potassium 4.1 Chloride 100 Carbon Dioxide 28.7 Anion Gap 11 BUN 80 H Creatinine 1.10 Estimated GFR 64 L POC Glucose 397 H 371 H Random Glucose 259 H D Calcium 8.1 L Phosphorus 3.9 Magnesium 2.3 Total Bilirubin 0.5 AST 29 ALT 46 Alkaline Phosphatase 246 H Total Protein 5.6 L Albumin 1.9 L Stl C.difficile DNA Amp St C. diff Tox Epid 027 02/01/18 11:42 WBC RBC Hgb Hct MCV MCH MCHC RDW Plt Count MPV Puncture Site Patient Temperature O2 Saturation ABG pH ABG pCO2 ABG pO2 ABG HCO3 ABG O2 Content ABG Base Excess ABG Methemoglobin Krishna Test Hemoglobin Carboxyhemoglobin O2 Delivery Device Liter Flow Vent Setting Inspired O2 Critical Value Sodium Potassium Chloride Carbon Dioxide Anion Gap BUN Creatinine Estimated GFR POC Glucose 291 H Random Glucose Calcium Phosphorus Magnesium Total Bilirubin AST ALT Alkaline Phosphatase Total Protein Albumin Stl C.difficile DNA Amp St C. diff Tox Epid 027 Microbiology 01/31/18 12:55 Sputum - Endotracheal Gram Stain - Final - Procedures Intubation. Assessment and Plan - Assessment (1) Respiratory failure requiring intubation Code(s): J96.90 - Respiratory failure, unspecified, unspecified whether with hypoxia or hypercapnia Status: Acute (2) Pneumonia Code(s): J18.9 - Pneumonia, unspecified organism Status: Acute (3) CHF (congestive heart failure), NYHA class II Code(s): I50.9 - Heart failure, unspecified Status: Acute (4) CHF (congestive heart failure) Code(s): I50.9 - Heart failure, unspecified Status: Acute (5) Respiratory abnormalities Code(s): J98.9 - Respiratory disorder, unspecified Status: Acute (6) Emphysema of lung Code(s): J43.9 - Emphysema, unspecified Status: Acute (7) Borderline diabetes mellitus Code(s): R73.03 - Prediabetes Status: Acute (8) Fracture, intertrochanteric, left femur Code(s): S72.142A - Displaced intertrochanteric fracture of left femur, initial encounter for closed fracture Status: Acute (9) Nutrition, metabolism, and development symptoms Code(s): R63.8 - Other symptoms and signs concerning food and fluid intake Status: Acute (10) Aspergillosis, with pneumonia Code(s): B44.9 - Aspergillosis, unspecified Status: Acute - Plan RECOMMENDATIONS: 1. Wean Vent rates to 16, FIo2 to 35 % 2. Bronchodilators ,DuoNeb q.6 hr. 3. D/W family here 4 .CBC , CXR BMP in am 5. Continue with Lasix 40 mg daily. 6. Cont antibiotics per ID. 7. CPAP trial today 8.Rehab placement 9.CT chest next week 10. Prednisone 10 mg PO BID
--- NOTE | 2018-02-01 15:31 | P.PNPAL ---
Dr. Xavier Richards and I met with daughter, Micheline. Also present Kemar Gaming, community services officer and nurse, Racheal. Patient has been reintubated since last palliative care visit. On [facility] vent. Dr. Richards provided medical update. We discussed continued aggressive care and the multiple intensivists, pulmonologists and other physicians involved in his care that have recommended tracheostomy and PEG tube given underlying lung disease, chronic respiratory failure. We also gave the option to transition to comfort measures if they do not feel patient would want trach and PEG. Micheline verbalizes understanding of options, she will bring this information to her mother and siblings, they will discuss and she will have her mother (HCP) let the team know their decision. She verbalized appreciation for time spent. Questions answered to her satisfaction.
--- NOTE | 2018-02-01 16:54 | CT ---
EXAM DATE: 02/01/2018 4:39 PM EST AGE/SEX: 82 years / Male INDICATIONS: Evaluate for pneumonia. CLINICAL DATA: This is the patient's initial encounter. Patient reports that signs and symptoms have been present for 1 day and indicates a pain score of Nonresponsive. MEDICAL/SURGICAL HISTORY: Chronic obstructive pulmonary disease. Diabetes. . Right lobectomy. RADIATION DOSE: 8.97 CTDI (mGy) COMPARISON: [facility] [place] 01/20/2018. . TECHNIQUE: Multiple contiguous axial images were obtained through the chest without contrast. Image s were obtained in suspended respiration using multiple row detector helical technique. Using automa zohaib exposure control and adjustment of the mA and/or kV according to patient size, radiation dose was kept as low as reasonably achievable to obtain optimal diagnostic quality images. DICOM format imag e data is available electronically for review and comparison. FINDINGS: Lines/tubes: There is an ETT with tip near the camilla. There is an NGT in the second portion of the d uodenum. Lung: Persistent irregular airspace consolidation in the superior segment of the right lower lobe un changed from prior exam. Previously described abutting cavitation in the right lower lobe slightly mo re caudally appear less prominent measuring up to 3 cm in comparison to 3.3 cm on prior exam. There i s progressive nodular peribronchial opacities in the right lower lobe more inferiorly with increased consolidation at the right lung base. Reticular is noted in multiple bronchi in the right lower lobe. There is also bronchiectasis in the right lower lobe. Mild groundglass opacities as well as small no dular opacities in the inferior right middle lobe. Redemonstration of prominent paraseptal and centri lobular emphysema in the right lung with persistent right apical scarring. Redemonstration of volume loss and groundglass opacities in the left lung. Pleura: Moderate loculated left-sided pleural effusion with diffuse left-sided calcified pleural frankie ques. Trace slightly improved fluid in the major fissure on the right. Mediastinum: Heart is unremarkable without significant pericardial effusion. Stable calcified subcar inal lymph node. Osseous Structures: No abnormal focal lytic or blastic bony lesions. Soft Tissues: Soft tissues are unremarkable. No significant axillary adenopathy. Other: Visualized upper abdomen demonstrates a cirrhotic appearing liver with small amount of ascite s primarily surrounding the hepatic margin. CONCLUSION: 1. ETT tip near the camilla. NGT in the second portion of the duodenum. 2. Interval development of inflammatory nodules and airspace consolidation in the right lower lobe w ith material noted in right lower lobe bronchi. Overall findings are concerning for aspiration versus bronchopneumonia. 3. Stable appearance of irregular airspace consolidation in the superior segment of the right lower lobe. 4. Persistent left sided volume loss with loculated moderate left pleural effusion and bulky pleural calcified plaque. 5. Cirrhotic appearing liver with minimal ascites in the upper abdomen. Electronically signed by: Kyaw Gallo MD 02/01/2018 4:53 PM EST
[2018-02-01] MEDS: fentaNYL 10 mcg/mL Premix Drip 2,500 MCG/250 ML BAG IV.SIG PRN (17:36)
--- NOTE | 2018-02-01 20:05 | P.PNID ---
Subjective Remarks: remains on vent growing GNBs from sputum clx afebrile WBC down to 12.9K Antibiotics: z micafungin Allergies/Adverse Reactions: Allergies No Known Allergies Allergy (Verified 12/19/17 21:39) Objective Vital Signs 01/31/18 22:00 01/31/18 22:18 02/01/18 00:00 Temperature 97.9 F Pulse Rate 101 H 82 Respiratory Rate 24 20 Blood Pressure 105/52 L Pulse Oximetry 98 98 02/01/18 01:20 02/01/18 02:00 02/01/18 04:00 Temperature 98.8 F Pulse Rate 77 78 Respiratory Rate 20 20 Blood Pressure 103/49 L Pulse Oximetry 100 99 02/01/18 04:10 02/01/18 05:43 02/01/18 06:00 Temperature Pulse Rate 75 98 H Respiratory Rate 20 20 Blood Pressure Pulse Oximetry 99 02/01/18 07:00 02/01/18 08:00 02/01/18 10:00 Temperature 97.4 F L Pulse Rate 74 77 83 Respiratory Rate 20 20 Blood Pressure 104/46 L Pulse Oximetry 98 02/01/18 11:31 02/01/18 12:00 02/01/18 14:00 Temperature 98.0 F Pulse Rate 89 87 Respiratory Rate 20 23 Blood Pressure 114/57 L Pulse Oximetry 100 98 02/01/18 14:33 02/01/18 14:37 02/01/18 16:00 Temperature 98.0 F Pulse Rate 86 97 H Respiratory Rate 18 17 26 H Blood Pressure 139/66 Pulse Oximetry 95 93 L 02/01/18 18:00 Temperature Pulse Rate 104 H Respiratory Rate Blood Pressure Pulse Oximetry Intake & Output 02/01/18 02/01/18 02/02/18 06:59 18:59 06:59 Intake Total 515 / 515 800 / 800 Output Total 300 / 300 150 / 150 Balance 215 / 215 650 / 650 Weight 59.5 kg Intake: IV 350 / 350 Merrem Inj 1,000 MG In NS Inj 100 / 100 100 ML @ 200 mls/hr IV.SIG Q8H NOAH Rx#:[id number] fentaNYL 10 mcg/mL Premix Drip 250 / 250 2,500 mcg In 250 ml @ 50 MCG/HR 5 mls/hr IV.SIG TITRATE PRN Rx #:[id number] Tube Feeding 415 / 415 400 / 400 Water Bolus Amount 100 / 100 50 / 50 Output: Urine Amount (Catheter) 300 / 300 150 / 150 Condom 300 / 300 150 / 150 Other: # Voids 2 Date of Last Bowel Movement 02/01/18 02/01/18 # Bowel Movements 2 2 01/31/18 12:55 Sputum - Endotracheal Gram Stain - Final 01/31/18 12:55 Sputum - Endotracheal Sputum Culture - Preliminary gram negative rods Lab - Hematology Results 01/31/18 02/01/18 06:13 03:50 WBC 15.7 H 12.9 H RBC 3.12 L 2.93 L Hgb 9.5 L 8.7 L Hct 27.6 L 26.4 L MCV 88.4 90.2 MCH 30.5 29.5 MCHC 34.5 32.7 RDW 15.5 16.3 Plt Count 163 152 MPV 8.4 8.5 Lab - Chemistry Results 01/30/18 01/31/18 01/31/18 22:30 06:13 07:54 Sodium 141 Potassium 3.9 Chloride 102 Carbon Dioxide 29.7 Anion Gap 9 BUN 51 H Creatinine 0.85 Estimated GFR 87 L POC Glucose 129 H 87 Random Glucose 86 Calcium 8.1 L Phosphorus 4.0 Magnesium 1.9 Total Bilirubin 0.8 AST 30 ALT 52 Alkaline Phosphatase 228 H Total Protein 5.7 L Albumin 2.1 L Prealbumin 12 L 01/31/18 01/31/18 01/31/18 12:05 16:33 19:59 Sodium Potassium Chloride Carbon Dioxide Anion Gap BUN Creatinine Estimated GFR POC Glucose 77 95 154 H Random Glucose Calcium Phosphorus Magnesium Total Bilirubin AST ALT Alkaline Phosphatase Total Protein Albumin Prealbumin 02/01/18 02/01/18 02/01/18 03:50 08:02 08:03 Sodium 140 Potassium 4.1 Chloride 100 Carbon Dioxide 28.7 Anion Gap 11 BUN 80 H Creatinine 1.10 Estimated GFR 64 L POC Glucose 397 H 371 H Random Glucose 259 H D Calcium 8.1 L Phosphorus 3.9 Magnesium 2.3 Total Bilirubin 0.5 AST 29 ALT 46 Alkaline Phosphatase 246 H Total Protein 5.6 L Albumin 1.9 L Prealbumin 02/01/18 02/01/18 11:42 17:30 Sodium Potassium Chloride Carbon Dioxide Anion Gap BUN Creatinine Estimated GFR POC Glucose 291 H 186 H Random Glucose Calcium Phosphorus Magnesium Total Bilirubin AST ALT Alkaline Phosphatase Total Protein Albumin Prealbumin Imaging: ITS Impressions Abdomen Ultrasound 01/09/18 00:00 CONCLUSION: 1. Limited examination due to obscuration by bowel gas. 2. Simple left renal cyst. 3. Moderate amount of ascites in the right upper quadrant. Abdomen/Pelvis CT 01/13/18 00:00 CONCLUSION: 1. Patchy airspace disease right lung base and chronic loculated left pleural effusion not significantly changed since January 07. 2. Mild ascites with liver cirrhosis. 3. NG tip in stomach. Previous cholecystectomy. No bowel obstruction. 4. Multiple subacute lower right rib fractures. Venous Doppler Study 01/13/18 00:00 CONCLUSION: 1. The study is negative for lower extremity deep venous thrombosis. Abdomen X-Ray 01/15/18 00:00 CONCLUSION: Enteric tube placement as above. Chest X-Ray 01/30/18 19:30 CONCLUSION: 1. Patient is now intubated. The endotracheal tube tip is close to the camilla and recommend pulling it back 1 to 2 cm. 2. Mild patchy parenchymal consolidation of both lungs. 3. Chronic apical pleural thickening on the right and diffuse pleural thickening with chronic effusion and volume loss on the left. Chest CT 02/01/18 13:26 CONCLUSION: 1. ETT tip near the camilla. NGT in the second portion of the duodenum. 2. Interval development of inflammatory nodules and airspace consolidation in the right lower lobe with material noted in right lower lobe bronchi. Overall findings are concerning for aspiration versus bronchopneumonia. 3. Stable appearance of irregular airspace consolidation in the superior segment of the right lower lobe. 4. Persistent left sided volume loss with loculated moderate left pleural effusion and bulky pleural calcified plaque. 5. Cirrhotic appearing liver with minimal ascites in the upper abdomen. Physical Exam: GENERAL: sedated On vent SKIN: Warm and dry. NO rash EYES: Pupils equal and round. No scleral icterus. No injection or drainage. ENT: No nasal bleeding or discharge. Mucous membranes pink and moist. NECK: Trachea midline. CARDIOVASCULAR: Regular rate and rhythm. RESPIRATORY: .clear to auscultation. Breath sounds very diminished bilaterally. GASTROINTESTINAL: Abdomen soft, mildly tender, mildly distended MUSCULOSKELETAL: Extremities without clubbing, cyanosis, or edema. No obvious deformities. 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 likely CO2 narcosis - reint'd COPD exacerbation Multiple pumonary pathologies (COPD, asbestosis) RLL PNA, suspected pulmonary aspergillosis though it can be colonisation - galactomannan can tnot be checkes since pt was on zosyn x 1 month ( false + aw zosyn) - too risky for bx - dw Dr De La Garza on micafungin Abx associated diarrhea, C.diff neg 2/2, CT neg for colitis New Gram negative PNA ? New right lower lobe aspiration versus bronchopneumonia.with material noted in right lower lobe bronchi. PLAN: cont o micafungin for now Meropenem sputum clx untill final cont Lactinex case dw RN case dw daughter @ b/s
== END 2018-02-01 19:15 | disposition short-term general hospital (02) ==
LOC: NEPE 21:24 → NEDA 23:02 → HIMC 12-20 00:55 → N04 12-29 13:47 → HIMC 12-30 12:45
PROVIDERS: ADMIT Internal Medicine Critical Care Medicine; ATTEND Internal Medicine Critical Care Medicine